=== PATIENT | male | born 1955 | race Caucasian/White ===

== ENCOUNTER → 2018-05-27 08:13 | Outpatient (CLI) | payer OTHER, SELFPAY ==
--- NOTE | 2018-05-27 08:16 | US_ITS ---
STUDY: THYROID ULTRASOUND REASON FOR EXAM: Male, 63 years old. History of thyroid nodule. TECHNIQUE: Ultrasound evaluation of the thyroid was performed with real-time and static abrams-scale imaging. COMPARISON: None. FINDINGS: RIGHT LOBE: The right lobe of the thyroid gland measures 4.0 cm x 1.5 cm x 1.4 cm. There is a homogeneous echotexture. There are no demonstrated solid, cystic or complex lesions. LEFT LOBE: The left lobe of the thyroid gland measures 3.9 cm x 1.3 cm x 1.4 cm. There is a homogeneous echotexture. There are no demonstrated solid, cystic or complex lesions. ISTHMUS: The isthmus measures 4.0 mm. The regional lymph nodes are normal. US/Thyroid IMPRESSION: Normal ultrasound examination of the thyroid. Electronically Signed: Rah Ludwig MD at 10:54 EDT Tel [phone], Service support ,
== END ==
PROVIDERS: Family Provider Family Medicine; PCP Family Medicine; Visit Provider Family Medicine
DX: E04.1 Nontoxic single thyroid nodule (principal)
CPT/HCPCS: 76536

== ENCOUNTER → 2018-06-14 15:15 | Outpatient (CLI) | payer OTHER, SELFPAY ==
[2018-06-14 15:19] LABS: Bacteria 0 SEEN /hpf (None Seen); Mucous, Urine 0 SEEN /hpf (<or=2+); Squamous Epithelial Cells - UA 0 SEEN /hpf (0-5)
[2018-06-14 17:29] LABS: Absolute Lymphocyte Count 1.49 X10^3/ul (0.83-4.51); Absolute Neutrophil Count 4.6 X10^3/uL (2.0-7.7); Basophil# 0.01 X10^3/uL; Basophil% 0.1 % (0-1); Eosinophil# 0.08 X10^3/uL; Eosinophils% 1.1 % (0-5); Hematocrit 48.4 % (40-54); Hemoglobin 16.7 g/dl (13.0-16.5); Lymphocyte # 1.49 X10^3/ul (4.0); Mean Corp Hgb Conc 34.5 g/gl (32-36); Mean Corpuscular Hgb 31.7 pg (27.0-32.0); Mean Platelet Vol. 10.4 fl (6.2-12.0); Monocyte# 0.96 X10^3/uL; Monocyte% 13.5 % (0-10); Neutrophil # 4.55 X10^3/uL (2.7-7.7); Platelet Count 269 K/mm3 (150-450); RBC Distribution Width CV 12.3 % (11.6-14.6); RBC Distribution Width SD 41.1 fl (35.1-43.9); Red Blood Count 5.26 M/mm3 (4.6-6.2); White Blood Count 7.1 K/mm3 (4.4-11.0)
[2018-06-14 17:32] LABS: POSITIVE COUNT NO; POSITIVE DIFFERENTIAL NO; POSITIVE MORPHOLOGY NO
[2018-06-14 17:36] LABS: Color, Urine Yellow (Yellow); Glucose, Dipstick Normal (Normal); Ketone-Dipstick Negative (Negative); Leukocyte Esterase-Dipstick 25 /ul (Negative); Nitrite-Dipstick Negative (Negative); Occult Blood-Urine 10 /ul (Negative); Protein-Dipstick 30 mg/dl (Negative); Specific Gravity, Urine 1.015 (1.002-1.030); Urine Bilirubin Dipstick Negative (Negative); Urine Clarity Clear (Clear); Urine Urobilinogen 1 mg/dl (Normal); Urine pH 6.5 (5.0 - 8.0)
[2018-06-14 18:11] LABS: ALB/GLOB Ratio 0.9 RATIO (0.9-2.4); AST(SGOT) 19 U/L (15-37); Alanine Aminotransfer ALT/SGPT 31 U/L (16-61); Albumin, Serum 3.5 g/dL (3.2-5.0); Alkaline Phosphatase 187 U/L (45-117); Anion Gap 8 (5-15); BUN 25 mg/dL (7-18); BUN/Creat Ratio 18.5 RATIO (10-20); Calcium,Total 8.8 mg/dL (8.5-10.1); Chloride 102 mmol/L (98-107); Cholesterol 194 mg/dL (200); Creatinine, Serum 1.35 mg/dL (0.70-1.30); EST Glomerular Filtration Rate 57 mL/min (>60); Est Glom Filt Rate - Afr Amer 68 mL/min (>60); Globulin 3.8 g/dL (2.2-4.2); Glucose 153 mg/dL (74-106); High Density Lipoprotein 32 mg/dL; Potassium 3.4 mmol/L (3.5-5.1); Protein, Total 7.3 g/dL (6.4-8.2); Sodium Level 140 mmol/L (136-145); T4 Free Direct 1.14 ng/dL (0.76-1.46); Thyroid Stim Hormone (TSH) 2.35 uIU/mL (0.358-3.74); Triglycerides 272 mg/dL; Very Low Density Lipoprotein 54 mg/dL (5-40)
[2018-06-14 18:15] LABS: Red Blood Cells-Urine 0-5 SEEN /hpf (0-5); White Blood Cells 0-5 SEEN /hpf (0-5)
[2018-06-15 10:01] LABS: Hemoglobin A1c 6.2 % (4.2-6.3)
== END ==
PROVIDERS: Family Provider Family Medicine; PCP Family Medicine; Visit Provider Family Medicine
DX: I10 Essential (primary) hypertension (principal); E04.1 Nontoxic single thyroid nodule
CPT/HCPCS: 36415; 80053; 80061; 81001; 83036; 84439; 84443; 85025

== ENCOUNTER → 2018-09-13 16:42 | Outpatient (CLI) | payer OTHER, SELFPAY ==
[2018-09-13 17:34] LABS: Absolute Neutrophil Count 3.3 X10^3/uL (2.0-7.7); Basophil# 0.03 X10^3/uL; Basophil% 0.5 % (0-1); Eosinophil# 0.14 X10^3/uL; Eosinophils% 2.3 % (0-5); Hematocrit 52.6 % (40-54); Hemoglobin 17.5 g/dl (13.0-16.5); Lymphocyte % 24.4 % (19-41); Mean Corp Hgb Conc 33.3 g/gl (32-36); Mean Corpuscular Hgb 30.5 pg (27.0-32.0); Mean Corpuscular Volume 91.8 fL (80-94); Mean Platelet Vol. 9.5 fl (6.2-12.0); Monocyte# 1.13 X10^3/uL; Monocyte% 18.4 % (0-10); Neutrophil # 3.26 X10^3/uL (2.7-7.7); Neutrophil % 52.9 % (47-70); POSITIVE COUNT NO; POSITIVE DIFFERENTIAL NO; POSITIVE MORPHOLOGY NO; Platelet Count 192 K/mm3 (150-450); RBC Distribution Width CV 14.4 % (11.6-14.6); RBC Distribution Width SD 46.4 fl (35.1-43.9); Red Blood Count 5.73 M/mm3 (4.6-6.2); White Blood Count 6.2 K/mm3 (4.4-11.0)
[2018-09-13 18:09] LABS: ALB/GLOB Ratio 1.1 RATIO (0.9-2.4); AST(SGOT) 26 U/L (15-37); Alanine Aminotransfer ALT/SGPT 27 U/L (16-61); Albumin, Serum 3.7 g/dL (3.2-5.0); Alkaline Phosphatase 166 U/L (45-117); Anion Gap 11 (5-15); BUN 27 mg/dL (7-18); Calcium,Total 8.9 mg/dL (8.5-10.1); Chloride 107 mmol/L (98-107); Creatinine, Serum 1.08 mg/dL (0.70-1.30); EST Glomerular Filtration Rate 73 mL/min (>60); Est Glom Filt Rate - Afr Amer 88 mL/min (>60); Globulin 3.5 g/dL (2.2-4.2); Glucose 115 mg/dL (74-106); Potassium 3.8 mmol/L (3.5-5.1); Protein, Total 7.2 g/dL (6.4-8.2); Sodium Level 147 mmol/L (136-145)
[2018-09-13 18:10] LABS: Hemoglobin A1c 6.4 % (4.2-6.3)
== END ==
PROVIDERS: Family Provider Family Medicine; PCP Family Medicine; Visit Provider Family Medicine
DX: I10 Essential (primary) hypertension (principal); R73.02 Impaired glucose tolerance (oral)
CPT/HCPCS: 36415; 80053; 83036; 85025

== ENCOUNTER → 2018-09-15 10:59 | Outpatient (CLI) | payer OTHER, SELFPAY ==
[2018-09-15 12:55] LABS: Ferritin 235 ng/mL (26-388); Iron 92 ug/dL (65-175); Iron Binding Capacity,Total 284 ug/dL (250-450)
[2018-09-16 12:31] LABS: Transferrin 220 mg/dL (200-370)
== END ==
PROVIDERS: Family Provider Family Medicine; PCP Family Medicine; Visit Provider Family Medicine
DX: D75.1 Secondary polycythemia (principal)
CPT/HCPCS: 36415; 82728; 83540; 83550; 84466

== ENCOUNTER → 2019-01-04 15:37 | Outpatient (CLI) | payer OTHER, SELFPAY ==
[2019-01-04 17:34] LABS: Absolute Lymphocyte Count 1.37 X10^3/ul (0.83-4.51); Absolute Neutrophil Count 3.4 X10^3/uL (2.0-7.7); Basophil# 0.02 X10^3/uL; Basophil% 0.3 % (0-1); Eosinophil# 0.14 X10^3/uL; Eosinophils% 2.4 % (0-5); Hematocrit 49.6 % (40-54); Hemoglobin 16.8 g/dl (13.0-16.5); Lymphocyte # 1.37 X10^3/ul (4.0); Lymphocyte % 23.9 % (19-41); Mean Corp Hgb Conc 33.9 g/gl (32-36); Mean Corpuscular Hgb 31.9 pg (27.0-32.0); Mean Corpuscular Volume 94.3 fL (80-94); Mean Platelet Vol. 9.9 fl (6.2-12.0); Monocyte# 0.75 X10^3/uL; Monocyte% 13.1 % (0-10); Neutrophil # 3.39 X10^3/uL (2.7-7.7); Neutrophil % 59.1 % (47-70); Platelet Count 210 K/mm3 (150-450); RBC Distribution Width CV 13.9 % (11.6-14.6); RBC Distribution Width SD 46.4 fl (35.1-43.9); Red Blood Count 5.26 M/mm3 (4.6-6.2); White Blood Count 5.7 K/mm3 (4.4-11.0)
[2019-01-04 17:41] LABS: POSITIVE COUNT NO; POSITIVE DIFFERENTIAL NO; POSITIVE MORPHOLOGY NO
[2019-01-04 17:47] LABS: ALB/GLOB Ratio 1.2 RATIO (0.9-2.4); AST(SGOT) 36 U/L (15-37); Alanine Aminotransfer ALT/SGPT 37 U/L (16-61); Albumin, Serum 3.8 g/dL (3.2-5.0); Alkaline Phosphatase 175 U/L (45-117); Anion Gap 6 (5-15); BUN 23 mg/dL (7-18); BUN/Creat Ratio 20.5 RATIO (10-20); Calcium,Total 8.9 mg/dL (8.5-10.1); Chloride 104 mmol/L (98-107); Creatinine, Serum 1.12 mg/dL (0.70-1.30); EST Glomerular Filtration Rate 70 mL/min (>60); Est Glom Filt Rate - Afr Amer 85 mL/min (>60); Globulin 3.1 g/dL (2.2-4.2); Glucose 171 mg/dL (74-106); Potassium 3.7 mmol/L (3.5-5.1); Protein, Total 6.9 g/dL (6.4-8.2); Sodium Level 140 mmol/L (136-145)
[2019-01-04 17:57] LABS: Hemoglobin A1c 6.5 % (4.2-6.3)
== END ==
PROVIDERS: Family Provider Family Medicine; PCP Family Medicine; Referring Provider Family Medicine; Visit Provider Family Medicine
DX: D75.1 Secondary polycythemia (principal); E11.9 Type 2 diabetes mellitus without complications; I10 Essential (primary) hypertension
CPT/HCPCS: 36415; 80053; 83036; 85025

== ENCOUNTER → 2019-01-05 15:13 | Outpatient (CLI) | payer OTHER, SELFPAY ==
[2019-01-05 19:10] LABS: Microalbumin:Creatinine Ratio 105.9 mg/g CRE (<30 mg/g CRE)
== END ==
PROVIDERS: Family Provider Family Medicine; PCP Family Medicine; Referring Provider Family Medicine; Visit Provider Family Medicine
DX: E11.9 Type 2 diabetes mellitus without complications (principal); I10 Essential (primary) hypertension; D75.1 Secondary polycythemia
CPT/HCPCS: 82043; 82570

== ENCOUNTER → 2019-09-21 12:12 | Outpatient (CLI) | payer MEDICARE, OTHER, SELFPAY ==
[2019-09-21 14:02] LABS: Absolute Lymphocyte Count 1.25 X10^3/uL (0.83-4.51); Absolute Neutrophil Count 3.7 X10^3/uL (2.0-7.7); Basophil# 0.04 X10^3/uL; Basophil% 0.7 % (0-1); Eosinophil# 0.11 X10^3/uL; Eosinophils% 1.8 % (0-5); Hematocrit 48.6 % (40-54); Hemoglobin 15.9 g/dL (13.0-16.5); Lymphocyte # 1.25 X10^3/ul (4.0); Mean Corp Hgb Conc 32.7 g/dL (32-36); Mean Corpuscular Hgb 33.1 pg (27.0-32.0); Mean Corpuscular Volume 101.3 fL (80-94); Mean Platelet Vol. 10.4 fl (6.2-12.0); Monocyte# 0.78 X10^3/uL; Monocyte% 13.1 % (0-10); NRBC Flagged by Analyzer 0 % (0-5); Neutrophil # 3.66 X10^3/uL (2.7-7.7); Neutrophil % 61.4 % (47-70); Platelet Count 181 K/mm3 (150-450); RBC Distribution Width CV 13.6 % (11.6-14.6); RBC Distribution Width SD 51.4 fl (35.1-43.9)
[2019-09-21 14:20] LABS: ALB/GLOB Ratio 0.9 RATIO (0.9-2.4); AST(SGOT) 200 U/L (15-37); Alanine Aminotransfer ALT/SGPT 428 U/L (16-61); Albumin, Serum 3.1 g/dL (3.2-5.0); Alkaline Phosphatase 481 U/L (45-117); Anion Gap 8 (5-15); BUN 22 mg/dL (7-18); BUN/Creat Ratio 20.2 RATIO (10-20); Calcium,Total 8.8 mg/dL (8.5-10.1); Chloride 106 mmol/L (98-107); Cholesterol 231 mg/dL (200); Creatinine, Serum 1.09 mg/dL (0.70-1.30); EST Glomerular Filtration Rate 72 mL/min (>60); Est Glom Filt Rate - Afr Amer 87 mL/min (>60); Globulin 3.5 g/dL (2.2-4.2); Glucose 109 mg/dL (74-106); High Density Lipoprotein 31 mg/dL; Potassium 3.7 mmol/L (3.5-5.1); Protein, Total 6.6 g/dL (6.4-8.2); Sodium Level 142 mmol/L (136-145); Triglycerides 418 mg/dL
[2019-09-21 14:29] LABS: Hemoglobin A1c 6.7 % (4.2-6.3); Microalbumin:Creatinine Ratio 95.6 mg/g CRE (<30 mg/g CRE)
== END ==
PROVIDERS: PCP Family Medicine; Referring Provider Family Medicine; Visit Provider Family Medicine
DX: I10 Essential (primary) hypertension (principal); E11.9 Type 2 diabetes mellitus without complications; R80.9 Proteinuria, unspecified
CPT/HCPCS: 36415; 80053; 80061; 82043; 82570; 83036; 85025

== ENCOUNTER → 2019-09-22 09:00 | Outpatient (CLI) | payer MEDICARE, OTHER, SELFPAY ==
[2019-09-22 10:39] LABS: AST(SGOT) 156 U/L (15-37); Alanine Aminotransfer ALT/SGPT 357 U/L (16-61); Albumin, Serum 3.1 g/dL (3.2-5.0); Alkaline Phosphatase 554 U/L (45-117); Bilirubin, Direct 0.27 mg/dL (0.00-0.30); GGTP 1284 U/L (15-85); Globulin 4.1 g/dL (2.2-4.2); Protein, Total 7.2 g/dL (6.4-8.2)
[2019-09-23 06:07] LABS: HEPATITIS B SURFACE AG Negative (Negative); Hepatitis A AB, Total Positive (Negative); Hepatitis A IgM Antibody Negative (Negative); Hepatitis B Core AB IgM Negative (Negative); Hepatitis B Core Ab Total Negative (Negative); Hepatitis C Ab <0.1 s/co ratio (0.0-0.9)
[2019-09-23 15:24] LABS: Hep B Surface Antibodies Non Reactive (.)
== END ==
PROVIDERS: PCP Family Medicine; Referring Provider Family Medicine; Visit Provider Family Medicine
DX: R74.8 Abnormal levels of other serum enzymes (principal); R94.5 Abnormal results of liver function studies; D75.89 Other specified diseases of blood and blood-forming organs
CPT/HCPCS: 36415; 80076; 82977; 86704; 86705; 86706; 86708; 86709; 86803; 87340

== ENCOUNTER → 2019-09-27 07:57 | Outpatient (CLI) | payer MEDICARE, OTHER, SELFPAY ==
--- NOTE | 2019-09-27 07:59 | US_ITS ---
STUDY: ABDOMINAL ULTRASOUND - RIGHT UPPER QUADRANT REASON FOR VISIT: Male, 64 years old ELEVATED LIVER ENZYMES TECHNIQUE: Ultrasound evaluation of the right upper quadrant was performed with real-time and static abrams-scale imaging. TECHNICAL QUALITY: Limited. Examination limited by bowel gas. COMPARISON: None. FINDINGS: Liver: The liver measures 16.7 cm. There is increased echogenicity consistent with fatty infiltration. The bile ducts are within normal limits. There is hepatic color flow. The direction of portal flow is hepatopetal. There is no demonstrated mass lesion. Gallbladder: Normal distended gallbladder. The gallbladder wall measures 2.6 mm. There is a negative sonographic Villanueva''s sign. There is no pericholecystic fluid. There is a solitary echogenic gallstone within the gallbladder. Common Bile Duct (C.B.D.): The common bile duct measures 3.5 mm. Pancreas: There is nonvisualization of the pancreas due to overlying bowel gas. Right Kidney: Normal size of the right kidney. The right kidney measures 10 cm x 5.1 cm x 4.7 cm. Normal renal cortex. The right cortex measures 1.7 cm. There is no demonstrated renal mass or cyst. There is no right hydronephrosis. US/Liver IMPRESSION: Fatty infiltration of the liver. Solitary gallstone. Electronically Signed: Rah Ludwig, at 15:49 EST , Service support ,
== END ==
PROVIDERS: PCP Family Medicine; Referring Provider Family Medicine; Visit Provider Family Medicine
DX: R94.5 Abnormal results of liver function studies (principal)
CPT/HCPCS: 76705

== ENCOUNTER → 2019-09-28 11:18 | Outpatient (CLI) | payer MEDICARE, OTHER, SELFPAY ==
[2019-09-28 13:03] LABS: Vitamin B12 197 pg/mL (211-911)
== END ==
PROVIDERS: PCP Family Medicine; Referring Provider Family Medicine; Visit Provider Family Medicine
DX: D75.89 Other specified diseases of blood and blood-forming organs (principal)
CPT/HCPCS: 36415; 82607; 82746

== ENCOUNTER → 2019-10-12 13:53 | Outpatient (CLI) | payer MEDICARE, OTHER, SELFPAY ==
[2019-09-28 14:16] VITALS: BMI 25.7
== END ==
PROVIDERS: PCP Family Medicine; Referring Provider Surgery; Visit Provider Surgery
DX: R07.9 Chest pain, unspecified (principal)
CPT/HCPCS: 93005

== ENCOUNTER → 2019-10-24 08:52 | Outpatient (CLI) | payer MEDICARE, OTHER, SELFPAY ==
[2019-10-18 12:16] VITALS: BMI 25.9
[2019-10-24 10:27] LABS: AST(SGOT) 26 U/L (15-37); Alanine Aminotransfer ALT/SGPT 31 U/L (16-61); Albumin, Serum 3.4 g/dL (3.2-5.0); Alkaline Phosphatase 156 U/L (45-117); Anion Gap 5 (5-15); BUN 13 mg/dL (7-18); BUN/Creat Ratio 10.2 RATIO (10-20); Bilirubin, Direct 0.18 mg/dL (0.00-0.30); Chloride 107 mmol/L (98-107); Cholesterol 208 mg/dL (200); Creatinine, Serum 1.27 mg/dL (0.70-1.30); EST Glomerular Filtration Rate 60 mL/min (>60); Est Glom Filt Rate - Afr Amer 73 mL/min (>60); Globulin 3.9 g/dL (2.2-4.2); Glucose 97 mg/dL (74-106); High Density Lipoprotein 39 mg/dL; Potassium 3.5 mmol/L (3.5-5.1); Protein, Total 7.3 g/dL (6.4-8.2); Sodium Level 142 mmol/L (136-145); Triglycerides 195 mg/dL; Very Low Density Lipoprotein 39 mg/dL (5-40)
== END ==
PROVIDERS: PCP Family Medicine; Visit Provider Family Medicine
DX: B15.9 Hepatitis A without hepatic coma (principal); E78.1 Pure hyperglyceridemia
CPT/HCPCS: 36415; 80048; 80061; 80076

== ENCOUNTER → 2019-11-13 06:22 | Outpatient (CLI) | payer MEDICARE, OTHER, SELFPAY ==
[2019-10-18 12:16] VITALS: BMI 25.9
--- NOTE | 2019-11-13 06:27 | ECHOCS_ITS ---
Reason For Study: HTN Procedure This was a 2D Doppler, Color Flow transthoracic echocardiogram. Contrast injection was performed. Exam performed in department. Left Ventricle Normal LV size. Left ventricular systolic function is normal. The estimated ejection fraction is 60 %. Mild segmental systolic dysfunction (see wall motion). Stage 1 diastolic dysfunction. [place] : Akinetic. Septal [place] : Akinetic. Mid-anteroseptal : Hypokinetic. The rest of the wall segments are normal. Tricuspid Valve Normal tricuspid valve. Mild (1+) tricuspid valve insufficiency. Pulmonary artery systolic pressure is 36 mmHg. Pulmonic Valve Normal pulmonic valve. Great Vessels Normal aortic root. The pulmonary artery is normal size. Normal inferior vena cava. Pericardium/Pleural No pericardial effusion. Medication Diluted definity 3ml given slow IV push to enhance endocardial definition. MMode/2D Measurements & Calculations LVIDd: 4.8 cm IVSd: 1.1 cm Ao root diam: 3.6 cm LVIDs: 3.1 cm LVPWd: 1.1 cm RVDd: 2.4 cm FS: 34.5 % LAV(MOD-bp): 36.8 ml SV(MOD-sp4): 53.1 ml LVAd ap4: 30.2 cm2 LAV(MOD-bp) Indexed: 19.3 ml/m2 EDV(MOD-sp4): 90.9 ml LAV(MOD-sp2): 35.8 ml EDV(sp4-el): 92.7 ml LAV(MOD-sp4): 35.6 ml LVAs ap4: 17.6 cm2 ESV(MOD-sp4): 37.8 ml ESV(sp4-el): 38.0 ml EF(MOD-sp4): 58.4 % EF(sp4-el): 59.0 % SV(sp4-el): 54.7 ml LA dimension(2D): 4.0 cm LA A4 area: 15.0 cm2 RA A4 area: 7.4 cm2 Doppler Measurements & Calculations MV E max mack: 51.0 cm/sec Lat Peak E' Mack: 6.7 cm/sec Med Peak E' Mack: 4.6 cm/sec MV A max mack: 115.8 cm/sec E/E' lat: 7.6 E/E' med: 11.1 MV E/A: 0.44 Ao V2 max: 128.1 cm/sec LV V1 max: 115.8 cm/sec PA V2 max: 77.0 cm/sec Ao max P.6 mmHg LV V1 max P.4 mmHg Ao V2 mean: 92.1 cm/sec Ao mean P.7 mmHg Ao V2 VTI: 23.0 cm TR max mack: 289.5 cm/sec TR max P.5 mmHg Interpretation Summary Normal LV size. Left ventricular systolic function is normal. The estimated ejection fraction is 60 %. Mild segmental systolic dysfunction (see wall motion). Stage 1 diastolic dysfunction. Contrast injection was performed. Ordering Physician: Neo Tian Referring Physician: Iván Case Performed By: Laila Sexton, ZAID, RVT
--- NOTE | 2019-11-13 13:46 | STRESSREP_ITS ---
Stress Test Report Exercise myocardial perfusion stress test. 64-year-old man with a history of hypertension. Stress protocol: Resting EKG demonstrates sinus bradycardia with a rate of 56 bpm normal intervals are noted resting blood pressures 174/98 mmHg. Nonspecific changes are noted in leads II, III and aVF. The patient exercised according to the [facility] Lloyd protocol for a total duration of 5 minutes and 16 seconds. The maximum heart rate attained was 146 bpm which was 94% of maximum predicted heart rate the maximum workload was 7 metabolic equivalents. The patient maintained sinus rhythm throughout the recording the test was terminated due to dyspnea, chest discomfort, and the target heart rate being achieved. There was further downsloping ST depression noted in leads II, III and aVF of approximately 1 mm suggestive of ischemia. The resting blood pressure was 174/98 with a peak blood pressure of 220/102. Myocardial perfusion protocol. 11.6 mCi of technetium 99m sestamibi was injected at rest. The patient exercised according to regular Lloyd protocol for 5 minutes and 16 seconds at peak exercise 33.9 mCi of technetium 99m sestamibi was injected stress images were obtained stress and rest images were reconstructed and compared in the short axis vertical long horizontal long axis. Gated images were also obtained Perfusion SPECT analysis: Review of the stress images demonstrate a moderate size defect noted in the anterior septal and apical sanchez on the resting images. The lateral wall inferior wall appear to be well perfused. The resting images demonstrate near complete reversibility of the above suggestive of anteroseptal and apical ischemia. Gated SPECT analysis: The gated ejection fraction is noted to be 48%. Conclusion: Abnormal exercise myocardial perfusion stress test at a moderate workload with evidence of anteroseptal and apical ischemia. Hypertensive response to exercise. Angina noted. Low normal ejection fraction.
== END ==
PROVIDERS: PCP Family Medicine; Referring Provider Internal Medicine Cardiovascular Disease; Visit Provider Internal Medicine Cardiovascular Disease
DX: R07.9 Chest pain, unspecified (principal); I10 Essential (primary) hypertension
CPT/HCPCS: 78452; 93017; 93306; A9500; Q9957; A4216; C8929

== ENCOUNTER 2019-11-20 08:59 | Day surgery (SDC) | payer MEDICARE, OTHER, SELFPAY ==
[2019-10-18 12:16] VITALS: BMI 25.9
--- NOTE | 2019-11-16 17:12 | RAD_ITS ---
STUDY: X-RAY CHEST REASON FOR EXAM: Male, 64 years old. Heart catheter wednesday. no chest complaints TECHNIQUE: Frontal and lateral views of the chest. COMPARISON: None. FINDINGS: Mild scarring in both lung bases. No infiltrates. Nodular density projecting in the left lung base appears to be related to the left sixth rib, but recommend confirmation with oblique views or CT scan. Normal size heart. Normal mediastinum and gen. Normal visualized pulmonary arteries. Normal visualized aortic arch and descending thoracic aorta. Normal visualized thoracic spine. Normal visualized ribs, clavicles, and shoulders. There is no demonstrated abnormality of the visualized soft tissue structures of the upper abdomen. RAD/Chest PA and Lateral IMPRESSION: Mild scarring in the lung bases. Cannot entirely exclude nodule in the left lung base. See comments above. Electronically Signed: Abdon Glasgow MD at 0:00 EDT , Service support ,
[2019-11-16 17:29] LABS: Absolute Lymphocyte Count 1.91 X10^3/uL (0.83-4.51); Absolute Neutrophil Count 6.4 X10^3/uL (2.0-7.7); Basophil# 0.03 X10^3/uL; Basophil% 0.3 % (0-1); Eosinophil# 0.16 X10^3/uL; Eosinophils% 1.6 % (0-5); Hematocrit 46.6 % (40-54); Hemoglobin 14.9 g/dL (13.0-16.5); Lymphocyte # 1.91 X10^3/ul (4.0); Lymphocyte % 19.2 % (19-41); Mean Corpuscular Hgb 30.8 pg (27.0-32.0); Mean Corpuscular Volume 96.5 fL (80-94); Mean Platelet Vol. 9.4 fl (6.2-12.0); Monocyte# 1.35 X10^3/uL; Monocyte% 13.5 % (0-10); NRBC Flagged by Analyzer 0 % (0-5); Neutrophil % 64.2 % (47-70); Platelet Count 257 K/mm3 (150-450); RBC Distribution Width CV 12.8 % (11.6-14.6); RBC Distribution Width SD 44.7 fl (35.1-43.9); Red Blood Count 4.83 M/mm3 (4.6-6.2)
[2019-11-16 18:07] LABS: Partial Thromboplast Time 27.3 Seconds (24.1-36.2); Prothrombin Time (Protime)PT. 12.5 SECONDS (11.7-14.9)
[2019-11-16 18:32] LABS: Anion Gap 6 (5-15); BUN 18 mg/dL (7-18); BUN/Creat Ratio 16.2 RATIO (10-20); Calcium,Total 8.8 mg/dL (8.5-10.1); Chloride 105 mmol/L (98-107); Creatinine, Serum 1.11 mg/dL (0.70-1.30); EST Glomerular Filtration Rate 71 mL/min (>60); Est Glom Filt Rate - Afr Amer 85 mL/min (>60); Glucose 137 mg/dL (74-106); Potassium 3.5 mmol/L (3.5-5.1); Sodium Level 140 mmol/L (136-145)
[2019-11-17 08:11] VITALS: BMI 25.9
--- NOTE | 2019-11-20 08:00 | HP_ITS ---
[facility] HPI History of Present Illness Details: 64-year-old man with a history of hypertension which was diagnosed in the previously on hydrochlorothiazide, lisinopril, metoprolol. He had been doing well until recently when he was scheduled to have his routine EGD. He had had symptoms of GERD diagnosed via EGD in September 2017. More recently he has complained of his continued heartburn and also has some substernal discomfort. He says that the symptoms appear to be worse at night he has not had any exertional component. He however has had some discomfort going to his left arm. This did raise concerns with his primary physician as well as the surgeon and it was decided to have him evaluated further. He tells me that he was recently diagnosed with hepatitis a. He underwent a stress test which demonstrated Abnormal exercise myocardial perfusion stress test at a moderate workload with evidence of anteroseptal and apical ischemia. Hypertensive response to exercise. Angina noted. Low normal ejection fraction. Echocardiogram demonstrated Normal LV size. Left ventricular systolic function is normal. The estimated ejection fraction is 60 %. Mild segmental systolic dysfunction (see wall motion). Stage 1 diastolic dysfunction. Contrast injection was performed. Based on this it is recommended he under go a heart cath. Intake Intake Visit Reasons: Amb Documentation Allergies No Known Allergies Allergy (Verified 10/18/19 12:30) [facility] Medical History Atherosclerosis of coronary artery (Chronic) Elevated LFTs (Acute) Essential hypertension (Chronic) Hyperlipidemia (Chronic) TIA (transient ischemic attack) (Chronic) Bipolar II disorder (Chronic) CVA (cerebral vascular accident) (Chronic) Depression (Chronic) GERD (gastroesophageal reflux disease) (Chronic) Hepatitis A (Chronic) Insomnia (Chronic) Sleep apnea (Chronic) Type 2 diabetes mellitus without complication (Chronic) Diarrhea (Resolved) Surgical History History of cataract extraction (Resolved) History of colonoscopy (Resolved ~2017) History of esophagogastroduodenoscopy (EGD) (Resolved) History of tonsillectomy (Resolved) History of wisdom tooth extraction (Resolved) Family History Father Colon cancer CAD (coronary artery disease) Mother Gastric ulcer Pacemaker Pulmonary fibrosis Heart disease Social History Smoking Status: Former smoker ROS Const Const: Negative for fatigue, weakness, headache(s), frequent falls, difficulty sleeping or excessive sweating Eyes Eyes: Negative for loss of peripheral vision, transient loss of vision, blurry vision, double vision or tunnel vision ENT ENT: Negative for headache(s) or balance problems Cardio Chest Pain: Yes Frequency: weekly Onset: with meals, other (cold weather) Location: epigastric, mid sternal Duration: minutes Exacerbation: activity Palpitations: No Edema: None Muscle aches with walking: None Resp Respiratory: Negative for SOB with activity, SOB at rest, SOB orthopnea\SOB lying down, Cough or paroxysmal nocturnal dyspnea GI GI: Negative nausea, vomiting, heartburn or black,tarry stools : Negative for hematuria Musc Musc: Negative for muscle aches/ myalgia, muscle weakness, joint pain or balance problems Skin Skin: Negative non-healing lesions, rash or unusual bruising Neuro Neuro: Negative for frequent falls, headache(s), weakness, blurry vision or double vision Jimy Hematologic/Lymphatic: Negative for easy bleeding or easy bruising Endo Endo: Negative for fatigue or excessive sweating Psych Psych: Negative for anxiety or depression Allergy Allergy/Immunology: Negative for rash Cardiology Exam Const Appearance: cooperative, healthy appearing, no acute distress, well developed and well groomed Nutritional Appearance: average body habitus and well nourished Orientation: alert, awake and oriented x3 Head Head: normal to inspection, normocephalic and atraumatic Ears: hearing grossly normal bilaterally and external ears normal Nose: external nose normal, nares normal, nasal mucous membranes and turbinates normal, septum normal, no nasal discharge Face and Sinus: face symmetric Mouth: oral mucosae normal, tongue normal, oropharynx normal and moist mucous membranes Teeth and gingiva: dentition normal Throat: posterior oropharynx normal, tonsils normal and uvula midline Eyes General: appearance normal, both eyes and all related structures Eyelids: eyelids normal Conjunctivae: conjunctivae normal Pupils: PERRL, normal by confrontation and accommodation normal EOM: EOM intact bilaterally Neck Neck: normal visual inspection, trachea midline and no JVD JVD: +5 Carotids: normal carotid upstroke and bounding pulses Chest Chest inspection: normal inspection of the chest, symmetric chest movement and normal respiratory effort Auscultation: Bilateral: Clear to Auscultation Cardio Palpation: normal PMI Rate: regular rate Rhythm: regular rhythm Heart sounds: S1 normal, S2 normal and normal, physiologic split S2; negative rub, gallop or murmur GI GI: normal to inspection, soft, no hepatosplenomegaly and bowel sounds present Neuro General: alert, awake, oriented x3, gait normal, moves all extremities and no focal sensory deficit Skin Skin: no rashes or lesions noted Extremities Pulses: Normal: Right Femoral Pulse, Left Femoral Pulse, Right Dorsalis Pedis Pulse, Left Dorsalis Pedis Pulse, Right Posterior Tibial Pulse, Left Posterior Tibial Pulse, Right Radial Pulse, Left Radial Pulse Lower Extremity Edema: None: Bilateral Musculoskel Musculoskeletal: No joint tenderness Psych Psychological: normal affect Assessment & Plan Problems 1. Essential hypertension I10 2. Hyperlipidemia E78.5 3. Atherosclerosis of coronary artery I25.10 Severe LAD disease and diagonal disease, RECOMMENDATIONS: Surgery consult for coronary revascularization per [employer] @ [facility] 11/20/2019 4. Abnormal stress test R94.39 Plan Pt will undergo a heart cath today. He is aware of he requires stenting he will need to spend the time. He will follow up with us in the office accordingly. Coding Level of Care Code No Charge Diagnoses Essential hypertension I10 Hyperlipidemia E78.5 Atherosclerosis of coronary artery I25.10 Abnormal stress test R94.39 Coding Level of Care Code No Charge Diagnoses Essential hypertension I10 Hyperlipidemia E78.5 Atherosclerosis of coronary artery I25.10 Abnormal stress test R94.39 Supplemental Info Supplemental Information Labs LDL Cholesterol 130 mg/dL (0-130) 10/24/19 HDL Cholesterol 39 mg/dL (40-) L 10/24/19 Triglycerides 195 mg/dL (-199) 10/24/19 VLDL Cholesterol 39 mg/dL (5-40) 10/24/19 Diagnostics Electrocardiogram 10/12/19 Echocardiogram 11/13/19 Stress Test Nuclear Medicine 11/13/19 Stress Test 11/13/19 Cardiac Catheterization 11/20/19 Chest X-Ray 11/16/19
--- NOTE | 2019-11-20 12:35 | CL.D_ITS ---
Patient Name: TERRI JUNE Study Date: 11/20/2019 Performing: Neo Tian MD Ht: 68.11 inches 173 cm : 1955 Wt: 171.96 lbs 78 kg Age: 64 Gender: male BSA: 1.92 PROCEDURE(S) PERFORMED SD23-GEE/COR/LV CLINICAL PROFILE AND INDICATIONS Indications: Suspected CAD Heart Failure: None Stress/Imaging Date: 11/13/2019Stress Test with SPECT MPI: Positive Intermediate Risk CAD Presentations: Stable angina. CONCLUSIONS Severe LAD disease and diagonal disease RECOMMENDATIONS Surgery consult for coronary revascularization DESCRIPTION OF PROCEDURE The patient arrived to the procedure lab. The risks and benefits of the procedure as well as a full d escription of our services here and current unavailability of surgical backup were fully explained to the patient and/or their significant other prior to the catheterization. The Timeout was completed, verifying the correct patient and procedure. The patient's procedural site was prepped and draped in the usual fashion. Local anesthetic was given subcutaneously to right radial region with Lidocaine 2% . Local anesthetic was given subcutaneously to right groin region with Lidocaine 2%. Using a modified Seldinger technique, arterial access was obtained via the right radial artery, a 6Fr sheath was inse rted., arterial access was obtained via the right femoral artery, a 5Fr sheath was inserted. Right C oronary Artery selective angiography was then performed in multiple views using a 5 Fr. 4.0 [place] cat heter. Left Coronary Artery selective angiography was performed in multiple views using a 5 Fr. JL4 catheter. Left Ventriculography was performed in RIDDLE projection using a [address] Left Coronary Artery selective angiography was performed in multiple views using a 5 Fr. JL 5 ca theter. Left Ventriculography was performed in RIDDLE projection using a 5 Fr. Pigtail catheter. LV to A O pullback pressures were then recorded.Contrast was injected through the sheath and the Right Iliac and Femoral artery were assessed for possible closure device.The arterial sheath was pulled and a Myn x closure device was deployed for hemostasis CORONARY ANGIOGRAPHY DOMINANCE: Left Dominant LEFT HEART ASSESSMENT Left Ventricular Ejection Fraction: by LV Gram 60 % Anterior Hypokinesis - Mild. Apical Hypokinesis - Moderate Normal Left Ventricular systolic function LEFT MAIN: Mild calcification LEFT ANTERIOR DESCENDING ARTERY: MID LAD: is occluded DIAGONAL 1: Proximal - Long diffuse 80% DIAGONAL 2: Proximal - long multiple areas of 75% CIRCUMFLEX ARTERY: Mild luminal irregularities less than 30% RIGHT CORONARY ARTERY: Mild luminal irregularities less than 30% COMPLICATIONS No Complications PROCEDURE MEDICATIONS Versed 1 mg IV Fentanyl 50 mcg IV Versed 1 mg IV Oxygen: 2 L/min via nasal cannula Heparin diluted in 23cc Heparinized saline. Patient given 10cc IA of this solution. 11/20/2019 11:30: 20 Verapamil 2.5mg, Ntg 100mcgs, 2000 units of Heparin diluted in 23cc Heparinized saline. Patient give n 10cc IA of this solution. 11/20/2019 11:30:20 SUMMARY OF HEMODYNAMIC DATA Time AIR REST ECG 09:23:27 AO 183/104 (138) SA 11:34:42 LV 182/7, 18 12:13:54 LV 189/7, 18 12:14:00 LV 168/8, 17 12:14:39 LVp 174/7, 17 12:14:42 AOp 186/95 (135) 12:14:47 Signed By Neo Tian MD On 11/20/2019 12:34:35 PM Neo Tian MD
== END 2019-11-20 15:16 | disposition home or self-care (01) ==
LOC: CLSP 09:00
PROVIDERS: Nurse Practitioner Family; PCP Family Medicine; Referring Provider Internal Medicine Cardiovascular Disease; Visit Provider Internal Medicine Cardiovascular Disease
DX: I25.118 Atherosclerotic heart disease of native coronary artery with other forms of angina pectoris (principal); B15.9 Hepatitis A without hepatic coma; E11.9 Type 2 diabetes mellitus without complications; I10 Essential (primary) hypertension; E78.5 Hyperlipidemia, unspecified; K21.9 Gastro-esophageal reflux disease without esophagitis; F31.81 Bipolar II disorder; G47.30 Sleep apnea, unspecified; R94.39 Abnormal result of other cardiovascular function study; Z86.73 Personal history of transient ischemic attack (TIA), and cerebral infarction without residual deficits; Z87.891 Personal history of nicotine dependence
CPT/HCPCS: 36415; 71046; 80048; 85025; 85610; 85730; 93458; 99152; 99153; C1760; J7040; Q9967; C1769; C1894

== ENCOUNTER → 2019-11-27 12:54 | Outpatient (CLI) | payer MEDICARE, OTHER, SELFPAY ==
[2019-11-17 08:11] VITALS: BMI 25.9
--- NOTE | 2019-11-27 12:56 | CT_ITS ---
STUDY: CT CHEST WITHOUT CONTRAST REASON FOR EXAM: Male, 64 years old. LUNG NODULE SHOWN ON CHEST XRAY, PT HAD HEART CATH WEDNESDAY, WANTING TO DO TRIPLE BYPASS WANTED TO KNOW MORE ABOUT NODULE FIRST. RADIATION DOSAGE (If Supplied By Facility): CTDIvol = ( 12.02 ) mGy, DLP = ( 377.87 ) mGycm TECHNIQUE: Transaxial imaging was performed without the administration of intravenous contrast material. Multiplanar coronal and sagittal images were reformatted. Individualized dose optimization techniques were used for this CT. COMPARISON: None. FINDINGS: There is elevation of the right hemidiaphragm. No pulmonary nodule is seen. Mild increased markings at the lung bases suggestive of scarring. There is no demonstrated pleural abnormality. There are calcifications of the coronary arteries. There are multiple small lymph nodes within the mediastinum, which are normal in size and morphology most compatible with reactive lymph hyperplasia. Normal hilar regions. Normal unenhanced pulmonary arteries. Normal aorta arch and descending thoracic aorta. There are mild degenerative changes of the thoracic spine. Multiple gallstones. CT/Chest without Contrast IMPRESSION: No pulmonary nodule is seen. Gallstones. Electronically Signed: Rah Ludwig, at 13:55 EDT , Service support ,
== END ==
PROVIDERS: PCP Family Medicine; Referring Provider Family Medicine; Visit Provider Family Medicine
DX: R91.1 Solitary pulmonary nodule (principal)
CPT/HCPCS: 71250

== ENCOUNTER → 2020-01-23 10:33 | Outpatient (CLI) | payer MEDICARE, OTHER, SELFPAY ==
[2020-01-19 09:58] VITALS: BMI 25.4
--- NOTE | 2020-01-23 10:42 | CR.ITP_ITS ---
Diagnosis - General Information Admitting Diagnosis: CABG X3 Personal Learning Style:: Audio/Visual, Demonstration, Group, Individual Preference, Written Barriers to Learning: No Barriers Gave educational material for:: Treating Heart Disease, Emotions & Heart Disease, Stress Management & Relaxation, Sleep Disorders & Heart Disease, How The Heart Works - INFORMED OF EDUATION MATERAIL AVAILABLE ON LINE AND HOW TO ACCESS, What it means to have Heart Disease, How Coronary Artery Disease is Diagnosed, Heart Procedures, What Heart Medications Do, Risk Factors & Modifications, Living an Active Life, Nutrition - Education/Goals Individual Counseling: Initial Assessment: Abnormal Cholesterol Levels, High Blood Pressure, Diabetes, Hypertension, Low HDL <40/Males or <50/Females Cardiac Rehabilitation Goals: 1. Maintain the individual as the primary focus of care. 2. To improve the patient's quality of life. 3. Identification of cardiac risk factors and provide cardiac risk factor management. 4. Enhance the psychosocial status of the patient. 5. Reconditioning enough to allow the patient to resume customary activities. 6. Control symptoms of cardiac disease Personal Goals: Initial Assessment: Improve energy level, Get back to work, or to resume activities faster, Improve knowledge of cardiac disease, Improve muscle strength and endurance, Control risk factors (learn risk factor modification) Scale for measuring improvement of personal goals: Enter appropriate number in Comments. 2 = Unchanged. 3 = Slightly Better. 4 = Moderate Improvement. 5 = Met my Goal - Diagnosis & Disease Process Outcomes/Goals: Pt IDs own risk factors & lifestyle modifications by Session 10, Verbalizes symptoms of angina & response by session 3., Pt independently manages - [facility], Other Additional Outcomes/Goals: Plan/Interventions: Assist Pt to ID & engage in lifestyle modification to reduce CVD risk, Instruct on individual risk factors, Review symptoms of angina & emergency actions, Review secondary diagnosis & identify educational needs., Other see comment - Safety Referral to Physical Therapy: No Referral to [facility] Case Management: No Fall Risk Assessed:: No Assistive Devices:: None Exercise - Initial Assessment - Visit Date of Eval: 01/23/20 Mets: Pre-: >5 METS for 30 minutes by discharge - Physician Prescribed Exercise Modalities: Treadmill, Biodyne, Airdyne, NuStep, SciFit Frequency: 3x/week for 12 weeks [36 sessions] Intensity: 60-80% of age predicted maximum heart rate reserve Target Heart Rate:: 100-131 Resting Blood Pressure: 119/82 EKG Type: SINUS RHYTHM - Outcomes & Goals Goals:: Verbalizes understanding of THR, RPE & goal METS by session 6, Documents in home exercise log/reports 30 min aerobic 5 day/wk by DC, Demonstrates accurate pulse taking by DC, Other additional outcome/goals: see below - Intervention & Plan Exercise Program Goals: Instruct on personal THR & RPE, Instruct on MET level & personal MET goal, Show patient to take own pulse /validate performance until accurate, Instruct on home exercise, Other additional plan/int - Physical Activity Home Exercise Physical Activity - Home Exercise: Safe Exercise, Warm-up, Self-monitoring, Cool-Down, Home Exercise > 30 min Daily, Sitting Time <3 hours/daily - Outcomes & Goals Outcomes/Goals: Demonstrates correct Warm-up/exercise Cool-Down (S3) if = 2.5 METs, Verbalizes symptoms of exercise intolerance by Session 3 (S3), Demonstrate safe equipment use (S3) & follows exercise prescrition (6), Other: See below - Intervention & Plan Plan/Intervention: Instruct warm-up & cool-down if exercising at > 2 METs, Instruct on symptoms of exercise intolerance & actions to take - NEW PT CARD[facility]AC REHAB START, Instruct & monitor on saf, Assess intial functional capacity & safety risk, Other See below Nutrition - Initial Assessment - Program Goals Nutrition Program Goals: LDL <100 optimal. 100 - 129 Near optimal. 130 - 159 Borderline High. 160 - 189 High. Total Cholesterol <200 desirable. 200 - 239 Borderline High. >/= 240 High. HDL < 40 Low >/=60 High. Triglycerides <150 desirable. <199 optimal. VlDL 5 - 40. HgbA1C <7%. BMI <25 Patient has diagnosis of Hyperlipidemia (ICD E78)?: Yes - Visit Date of Assessment:: 01/23/20 - Cholesterol/Lipids Triglycerides (mg/dL): 195 Total Cholesterol (mg/dL): 208 LDL Cholesterol (mg/dL): 130 HDL Cholesterol (mg/dL): 39 Lipid Medication: ATORVASTATIN Determine presence & major risk factors that modify LDL goal: Cigarette smoking, Hypertension or hypertensive medication, Low HDL cholesterol <40 mg/dL*, Family history of premature CHD in Male < 55 years: female <65 yearsFa, Age men > 45 years; women >/= 55 years Outcomes/Goals: Pt IDs own risk factors & lifestyle modifications by Session 10, Verbalizes symptoms of angina & response by session 3., Pt independently manages - [facility] PT, Other Additional Outcomes/Goals: Intervention/Plan: Advocate for lipid panel cholesterol medication if applicable, Instruct on personal lipid levels & lipid goals/NCEP guidelines, Instruct on cholesterol, Other additional plan/int Referral to dietitian:: No - PT DECLINED REFERRAL - Diabetes (Other Core Measures) Diabetes Type: Diagnosis Type II ICD-10 E11 Do you monitor your blood sugar at home?: Yes - ENCOURAGED TO BRING MONITOR IN TO CR, STATES HE WILL Referral to Diabetic Clinic:: No Outcomes/Goals:: Able to state symptoms of, Able to state, Able to state, Other additional Intervention/Plan:: Instruct on - ENCOURAGED PRE AND POST GLUCOSE MONITORING - Weight Mgt (Other Care) Not Applicable: No Height: 5 ft 8 in Weight:: 167 lb BMI: 25.4 Outcomes/Goals: Pt sets, maintains & shows weight loss goal & trend during rehab, Other additional outcomes/goals Intervention/Plan: Instruct on ideal BMI & set weight loss goal w/patient, Assist pt to ID & incorporate diet changes for weight loss by S9, Refer to Structured Weight Loss program as appropriate - [facility] PT, Encourage goal of using 250-300dcal per session for weight loss, Other additional plan/interven tions - Healthy Eating Habits Will attend diet classes:: Yes Outcomes/Goals:: Consume diet rich in vegs,fruits,whole grain/high fiber,fi sh,lean meat, Limit sat/trans fats,cholesterol & added salts & sugars, Other additional outcome/goals: Intervention/Plan:: Assess current eating habits, Other Additional plan/ interventions Medical - Initial Assessment - Visit Date of Eval: 01/23/20 - Medication Compliance Preventative Medication(s):: Aspirin, Beta bridgett H/O mental health issues: depression, anxiety, or addiction?: Yes Doesn?t believe in the benefits of treatment?: No Believes medications are unnecessary or harmful?: No Outcomes/Goals: Verbalizes medications,desired effect & common side effects @ DC, Pt self-reports following medication regimen, Keeps card in wallet w/medications listed by DC, Other additional outcome/goals: Interventions/plans: Instruct on medication effects & side effects, Review medication list w/patient every two weeks - NEW CR START PT, Instruct importance of taking meds as ordered & assist problem solving, Other additional - Tobacco Use Tobacco Use: Non-smoker How long ago did you quit using tobacco products?: Greater than or equal to 6 months ago Years Smokin Do you use smokeless tobacco?: No Interventions/plan: Instruct on effects of smoking & provide smoking cessation resource, Assist pt to set quit date & provide encouragement, Assist pt to develop strategies to achieve/maintain quit date, Assist pt w/nicotine replacement & medication for cessation success, Other additional plan/interv entions - Hypertension Hypertension Diagnosis:: Hypertension ICD-10 I10 Resting Blood Pressure:: 119/82 [place] [employer] Hypertension Guidelines: [place] [employer] Hypertension Guidelines. Normal BP Less than 120/80. Elevated BP 120/80. Hypertension Stage 1: BP 130-139/80-89. Hypertesnion Stage 2: BP 140 or higher/90 or higher. Hypertension Crisis: BP higher than 180/120 Outcomes/Goals: Able to verbalize/achieve optimal blood pressure <130/80, Incorporates diet changes & exercise for blood pressure control by DC, Other additional outcomes/goals Interventions/plan: Instruct on optimal blood pressure, hypertension & medications, Instruct on effects of sodium, alcohol, stress, exercise &hypertension - NEW PT CR START, Other additional plan/interventions - Tobacco Cessation Referral Smoking Cessation Referral:: No Individual Education/Counseling:: No Education Schedule Given:: Yes - INFORMED OF ON-LINE WELL VIUDEOS DURING EXERCISE Psychosocial - Initial Assess - VIsit Date of Eval: 01/23/20 History of previous Mental disease:: Yes - BIPOLA II DISORDER, DEPRESSION History of Emotional Disorders: Depression Self-reported stressors: Other - Target Goals Target Goals: Assess presence or absence of depression. Using a valid screening tool, maximizes coping skills. Positive support system - Psychosocial Test Tool Used:: PHQ-9 Questionnaire phq-9 Severity: Severity. 1-4 Minimal Depression. 5-9 Mild Depression. 10-14 Moderate Depression. 15-19 Moderately Sever Depression. 20-27 Severe Depression. Rule: See PHQ-9 Score: 10 - . Total Score:: 10 - Referral to Behavioral Health PS - Interventions: Yes Attend Stress Management Classes - CR CLASSES, No Referral to Behavioral Health if PHQ-9 score >9:, No Referral to [facility], No Referral to Physician if PHQ-9 if score is 5-9: - PT REFUSED REFERRAL - Outcomes/Goals: See list Psychosocial Outcomes/Goals:: ID's personal stressors & 2 strategies to manage stress by discharge, Other Additional outcome/goals: - Intervention/Plan: See List Interventions/Plan:: Assess stressors,coping strategies & signs of derpression on admission, Instruct/assist pt to develop coping & personal stress Mgt strategies, Refer to Behavioral Health if appropriate, Refer to Physician if appropriate, Instruct patient to recognize signs & symptoms of depression, I nstruct patient to recog, Other additional plan/intervention Patient Health Questionnaire Initial Assessment 1. Little interest or pleasure in doing things: More than half the days 2. Feeling down, depressed, or hopeless: More than half the days 3. Trouble falling or staying asleep, or sleeping too much: Nearly every day 4. Feeling tired or having little energy: Nearly every day 5. Poor appetite or overeating: Not at all 6. Feeling bad about yourself -- or that you are a failure or have let yourself or your family down: Not at all 7. Trouble concentrating on things, such as reading the newspaper or watching television: Not at all 8. Moving or speaking so slowly that other people could have noticed. Or the opposite - being so fidgety or restless that you have been moving around a lot more than usual: Not at all 9. Thoughts that you would be better off , or of hurting yourself in some way: Not at all How difficult have these problems made it for you to do your work, take care of things at home, or get along with other people?: Somewhat difficult Total Score: 10 MAR-Q SV Test - Statements CAD is a disease of the arteries in the heart: False Examples of risk factors for heart disease: True Angina is chest pain or discomfort: I Don't Know The benefits of resistance training include: True Eating more meat and dairy products: False Anti-platelet medications such as aspirin are important: True The only effective way to manage stress: False An exercise warm-up slowly increases heart rate: I Don't Know Prepared, processed foods usually have high sodium: True Depression is common after a heart attack: True The statin medications lower cholesterol: True To control blood pressure, lower the amount of sodium: True If someone gets chest discomfort during walking: False Transfats are partially hydrogenated vegetable oils: True Sleep apnea that is not treated increases the risk: I Don't Know To control cholesterol, one should become a vegetarian: False Someone knows if he/she is exercising at the right level: I Don't Know Diabetes cannot be prevented with exercise & health eating: False Stress is a large risk for heart attack: I Don't Know A diet that can help lower blood pressure is rich in: True - Total Score Total Correct Responses: 15 Self-Efficacy Initial Assessment We would like to know how confident you are in doing certain activities. Please select your confidence level for:: Select your confidence level for the foll owing using the scale 1-10 where 1 is not at all confident and 10 is totally confident. Your score is the average of all 6 responses. Fatigue: How confident are you that you can keep the fatigue caused by your disease from interfering with the things you want to do? Select Number: 3 Physical Discomfort or Pain: How confident are you that you can keep the physical discomfort or pain of your disease from interfering with the things you want to do? Select Number: 9 Emotional Distress: How confident are you that you can keep the emotional distress caused by your disease from interfering with the things you want to do? Select Number: 9 Other Symptoms or Health Problems: How confident are you that you can keep other symptoms or health problems from interfering with the things you want to do? Select Number: 9 Different Tasks and Activities: How confident are you that you can do the different tasks and activities needed to manage your health condition so as to reduce your need to see a doctor? Select Number: 9 Medication: How confident are you that you can do things other than just taking medication to reduce how much your illness affects your everyday life? Select Number: 9 Total Score:: 8 Nutrition Survey - Nutrition Survey Instructions Scoring Instructions: Scoring is as follows: Yes = 1 points. No = 0 point. Patient score that is >/=12 is considered to be at potential nutritional risk and could benefit from a referral to a registered dietitian. - Nutrition Survey Initial Have you lost >10 lbs over the past 2 months without trying?: No Are you following a special diet at home for diabetes, low fat, or low salt?: Yes Are you interested in meeting with a dietitian for help understanding your diet?: No Do you eat less than 3 meals a day?: No Do you eat fatty meats (chan, sausage, ribs, etc), fried foods, desserts, large amounts of salad dressings, margarine, butter, or cheese most days?: No Do you have food allergies? [Enter types in comment field]: No Do you eat in restaurants more than 3 times a week?: No Do you season food with salt, seasoning salt, or garlic salt?: No Do you used canned, boxed, frozen meals, or soups, seasoning packets?: No Total Score:: 1
--- NOTE | 2020-01-23 10:42 | CR.HP_ITS ---
CR - History & Physical - General Arrival date:: 01/23/20 Arrival time:: 10:30 Date of Referral:: 01/19/20 Date of CR Evaluation:: 01/23/20 Referring Physician: DR CURTIS Primary Diagnosis: CABG X3 - History of Present Cardiac Event Onset Date: Enter Onset Date of cardiac illnesses in Comment field below Current stable Angina Pectoris:: No Acute Myocardial Infarction within 12 months:: No Coronary Artery Bypass Graft:: Yes - X3 Heart valve replacement or repair:: No PTCA or coronary stenting:: No Heart or Heart-Lung Transplant:: No Heart Failure EF <35%:: No - EF 55-59% Type of Symptoms:: CHEST PAIN, IDIGESTION TYPE AND LT ARM PAIN Interventions with present event:: CABG X3 Were there any complications?: NONE - Medications Home Medications: Ambulatory Orders Medication Instructions Recorded aspirin 81 mg tablet,delayed 81 mg PO DAILY 09/28/19 release dorzolamide 22.3 mg-timolol 6.8 1 drp OPHTHALMIC X1 09/28/19 mg/mL eye drops duloxetine 60 mg capsule,delayed 60 mg PO DAILY cap 10/17/19 release metformin 1,000 mg tablet 1,000 mg PO BID tab 10/17/19 amlodipine 10 mg tablet 10 mg PO DAILY #30 tab 11/20/19 atorvastatin 80 mg tablet 80 mg PO QHS 01/19/20 metoprolol tartrate 50 mg tablet 75 mg PO BID tab 01/19/20 pantoprazole 40 mg tablet,delayed 40 mg PO DAILY #30 tab 01/19/20 release - Allergies Allergies/Adverse Reactions: Allergies No Known Allergies Allergy (Verified 01/19/20 09:58) - Sleep Disorder Evaluation Hx of Sleep Apnea: Yes Do you snore loudly (louder than talking or can be heard through closed doors)?: Yes Do you often feel tired/ fatigued/ sleepy during daytime?: Yes Has anyone observed you stop breathing during sleep?: Yes History of Hypertension (for STOP score): Yes - PT HAD CPAP PREVIOUSLY AND LOST WHEN MOVED PT INTERESTED IN RESTARTING STOP Results: Positive Advanced Directives - Advanced Directives Power of Diploma Dental Assistant: No Living Will: No Advance Directives Information Provided: No Advance Directives on File: Yes - AT [facility] DNR Order?:: No Past Medical History - Past Medical Illness Medical History: Past Medical History (Last Reviewed 01/19/20 @ 10:[address] Neo Curtis MD) Atherosclerosis of coronary artery of [place] heart without angina pectoris (Chronic) I25.10 Essential hypertension (Chronic) I10 Hyperlipidemia (Chronic) E78.5 TIA (transient ischemic attack) (Chronic) G45.9 Bipolar II disorder F31.81 CVA (cerebral vascular accident) I63.9 Depression F32.9 GERD (gastroesophageal reflux disease) K21.9 Hepatitis A B15.9 Insomnia G47.00 Sleep apnea G47.30 Type 2 diabetes mellitus without complication E11.9 Diarrhea R19.7 Elevated LFTs R94.5 - Past Surgical History Surgical History: Past Surgical History (Last Reviewed 01/19/20 @ 10:[address] Neo Curtis MD) H/O coronary artery bypass surgery (Resolved) Onset Date: 12/15/19 Z95.1 CABG x 3 ASHLEY-LAD, SVG-D1, SVG-D2 12/15/2019 History of cataract extraction Z98.49 History of colonoscopy Onset Date: 2016 Z98.890 History of esophagogastroduodenoscopy (EGD) Z98.890 History of left heart catheterization Onset Date: 11/20/19 Z98.890 History of tonsillectomy Z90.89 History of wisdom tooth extraction K08.409 - Family History Summary Family History: Family History (Last Reviewed 01/19/20 @ 10:[address] Neo Curtis MD) Father Colon cancer CAD (coronary artery disease) Mother Gastric ulcer Pacemaker Pulmonary fibrosis Heart disease Social History - Smoking History Smoking Status: Former smoker Years Smokin Packs Smoked per Day: 1 - Alcohol Use Alcohol Usage: No - Substance Abuse Hx Substance Use: No - Occupation Occupation (List type of work in comments):: Retired - Hobbies, Recreation, Social Activities Hobbies: Reading, Watch TV, Walking Recreational Activities: I am able to engage in most, but not all activities Social Environment - Status Marital Status: - Current Living Arrangements Living Environment:: Spouse - Children How many children do you have?: 2 Do any of your children live nearby?: No - Safety Do you feel safe in your surroundings?: Yes - Assistance Do you need any assistance at home?: NONE Review of Systems - Review of Systems Hints: Right click = Denies (Slash). Left click = Reports ([place]) Review of Present Symptoms: Reports: Shortness of Breath with Exertion - SOMETIMES, MINIMAL, Wound Healing, Fatigue, Appetite - Normal, Sleep - Normal - FALLING ASLEEP THER HARDEST. Denies: Shortness of Breath at Rest, PVD, Operative Discomfort - EDEGES WELL APPROXIMATED WITHOUT REDNESS OR EDEMA OR DRAINAGE, Angina, Dizziness/Lightheadedness, Heart Arrhythmia/Irregularities Risk Factor Assessment - Chief Complaint Chief Complaint: CURRENT CABG PT WHO PRESENTS TODAY FOR CR EVALUATION - Vital Signs Temperature: 98.6 F Respiratory Rate: 16 Pulse Ox: 95 Blood Pressure: 118/80 Nailbeds:: PINK - Pulse Pulse Rate: 85 Pulse Rhythm: Regular - Hypertension How long have you been treated?: 25-30 YRS On medication(s)?: METOPROLOL,NORVASC Blood Pressure Sitting - Left Arm: 118/80 - Stress Stress: Long-standing - Blood Cholesterol/Lipids Total Cholesterol (mg/dL) Goal = less than 200 mg/dL: 208 HDL Cholesterol (mg/dL) Goal = less than 40 mg/dL: 39 LDL Cholesterol (mg/dL) Goal = less than 70 mg/dL: 130 Triglycerides (mg/dL) Goal = less than 150 mg/dL: 197 - Diabetes Diabetic History: Type II Nutrition Referral for Diabetes: No - Obesity Height: 5 ft 8 in Weight:: 167 lb Weight in Pounds: 167.0 lbs Weight Source: Stated by Patient Body Mass Index (BMI): 25.4 Nutritional Referral for Obesity: No - Physical Inactivity Physical Inactivity: Recreational activity - WALKING SLOWLY AT PRESENT - Risk Stratification Risk Guidelines: Lowest Risk: Risk Factor for Smoking, Risk Factor for Obesity, Moderate Risk: Risk Factor for Dyslipidemia, Risk Factor for Diabetes, Risk Factor for Hypertension, Risk Factor for Sedentary Lifestyle, Risk Factor for Depression - For Smoking Smoking Risk Guidelines: Smoking Low Risk: None or quit greater than 6 months ago. Smoking Moderate Risk: Smoker or quit 6 months or less ago. Smoking High Risk: Smoker - For Dyslipidemia Dyslipidemia Risk Guidelines: Low Risk: Moderate Risk: High Risk: 15-25% fat 25.1-29% fat >/= 30% fat. <7% sat fat 7-9% sat fat >9% sat fat. <150 mg chol 150-299 mg chol >/= 300 mg chol. LDL <100 LDL 100-129 LDL >/= 130. Chol/HDL ratio <5.0 Chol/HDL ratio 5.0-6.0 Chol/HDL ratio >6.0. Triglycerides <100 Triglycerides 100-149 Triglycerides >/= 150 - For Diabetes Mellitus Diabetes Risk Guidelines: Diabetes Low Risk: HgA1c <6.5% and/or FBG <120. Diabetes Moderate Risk: HgA1c 6.6-7.9% and/or FBG 120-180. Diabetes High Risk: HgA1c >/= 8% and/or FBG >180 - For Obesity/Overweight Obesity/Overweight Risk Guidelines: Obesity Low Risk: BMI <25.0. Obesity Moderate Risk: BMI 25-29.9. Obesity High Risk: BMI >/= 30.0 - For Hypertension Hypertension Risk Guidelines: Hypertension Low Risk: Systolic <120 and Diastolic <80. Hypertension Moderate Risk: Systolic 120-139 and Diastolic 80-89. Hypertension High Risk: Systolic >/= 140 and Diastolic >/= 90 - For Sedentary Lifestyle Sedentary Lifestyle Risk Guidelines: Sedentary Lifestyle Low Risk: >/= 1,500 kcal/week. Sedentary Lifestyle Moderate Risk: 700-1,499 kcal/week. Sedentary Lifestyle High Risk: < 700 kcal/week - For Depression Depression Risk Guidelines: Depression Low Risk: Not clinically depressed. Depression Moderate Risk: Mildly depressed. Depression High Risk: Clinically depressed - Family History Family History: Family History (Last Reviewed 01/19/20 @ 10:[address] Neo Curtis MD) Father Colon cancer CAD (coronary artery disease) Mother Gastric ulcer Pacemaker Pulmonary fibrosis Heart disease Motivation - Motivation to Participate On a scale of 1 to 10, how prepared are you to commit to attending program?: 9 What do you see as barriers to successfully being able to complete the program?: NONE What do you see as the benefits of succesfully completing the program? In other words, what do you hope to get out of participating in the program?: GETTING RID OF THE FATIGUE Are there issues you are dealing with that will interfere with completing the program?: NONE Do you have a spouse or signficant other, family or friends who will help support you to complete the program?: SPOUSE
[2020-01-23 11:21] VITALS: BP 118/80; PULSE 85; RESP 16; TEMP 37; O2SAT 95; BMI 25.4
[2020-01-23 11:55] VITALS: BP 119/82; BMI 25.4
== END ==
PROVIDERS: PCP Family Medicine; Referring Provider Internal Medicine Cardiovascular Disease; Visit Provider Internal Medicine Cardiovascular Disease
DX: I25.10 Atherosclerotic heart disease of native coronary artery without angina pectoris (principal); E11.9 Type 2 diabetes mellitus without complications; I10 Essential (primary) hypertension; E78.5 Hyperlipidemia, unspecified; G47.30 Sleep apnea, unspecified; I25.2 Old myocardial infarction

== ENCOUNTER → 2020-01-24 14:31 | Outpatient (CLI) | payer MEDICARE, OTHER, SELFPAY ==
[2020-01-23 11:21] VITALS: BMI 25.4
[2020-01-23 11:55] VITALS: BMI 25.4
[2020-01-24 18:48] LABS: ALB/GLOB Ratio 0.9 RATIO (0.9-2.4); AST(SGOT) 30 U/L (15-37); Alanine Aminotransfer ALT/SGPT 37 U/L (16-61); Albumin, Serum 3.6 g/dL (3.2-5.0); Alkaline Phosphatase 214 U/L (45-117); Anion Gap 8 (5-15); BUN 18 mg/dL (7-18); BUN/Creat Ratio 14.9 RATIO (10-20); CPK Total, Creatine Kinase 43 U/L (39-308); Calcium,Total 9.4 mg/dL (8.5-10.1); Chloride 105 mmol/L (98-107); Creatinine, Serum 1.21 mg/dL (0.70-1.30); EST Glomerular Filtration Rate 64 mL/min (>60); Est Glom Filt Rate - Afr Amer 77 mL/min (>60); Ferritin 48 ng/mL (26-388); Glucose 180 mg/dL (74-106); Magnesium 1.7 mg/dL (1.6-2.6); Potassium 3.9 mmol/L (3.5-5.1); Protein, Total 7.6 g/dL (6.4-8.2); Sodium Level 140 mmol/L (136-145)
== END ==
PROVIDERS: PCP Family Medicine; Referring Provider Family Medicine; Visit Provider Family Medicine
DX: R25.2 Cramp and spasm (principal)
CPT/HCPCS: 36415; 80053; 82550; 82728; 83735

== ENCOUNTER 2020-02-02 10:15 | Outpatient (RCR) | payer MEDICARE, OTHER, SELFPAY ==
[2020-01-23 11:02] VITALS: BMI 25.4
== END 2020-02-04 23:59 ==
LOC: CR 10:15
PROVIDERS: PCP Family Medicine; Referring Provider Internal Medicine Cardiovascular Disease; Visit Provider Internal Medicine Cardiovascular Disease
DX: I25.10 Atherosclerotic heart disease of native coronary artery without angina pectoris (principal); Z95.1 Presence of aortocoronary bypass graft; I10 Essential (primary) hypertension; E78.5 Hyperlipidemia, unspecified; Z86.73 Personal history of transient ischemic attack (TIA), and cerebral infarction without residual deficits
CPT/HCPCS: 93798

== ENCOUNTER 2020-03-04 10:15 | Outpatient (RCR) | payer MEDICARE, OTHER, SELFPAY ==
[2020-01-23 11:21] VITALS: BMI 25.4
[2020-01-23 11:55] VITALS: BMI 25.4
--- NOTE | 2020-02-22 09:07 | PCM.CR.ITP ---
Exercise - 30-day Assessment - Visit Date of Eval: 02/22/20 Session #:: 9 - Physician Prescribed Exercise Modalities: Treadmill, Airdyne, NuStep Frequency: 3x/week for 12 weeks [36 sessions] Intensity: 60-80% of age predicted maximum heart rate reserve Current METSs:: 4.0 Target Heart Rate:: 100-131 Current RPE:: 11-13 Maximum Excercise HR:: 117 Resting Blood Pressure: 118/60 Maximum Exercise Blood Pressure: 140/80 EKG Type: NSR w/ T wave inversion, sinus tachycardia without ectopy. - Outcomes & Goals Goals:: Verbalizes understanding of THR, RPE & goal METS by session 6, Documents in home exercise log/reports 30 min aerobic 5 day/wk by DC, Demonstrates accurate pulse taking by DC - Intervention & Plan Exercise Program Goals: Instruct on personal THR & RPE, Instruct on MET level & personal MET goal, Show patient to take own pulse /validate performance until accurate, Instruct on home exercise - Physical Activity Home Exercise Physical Activity - Home Exercise: Safe Exercise, Warm-up, Self-monitoring, Cool-Down, Home Exercise > 30 min Daily, Sitting Time <3 hours/daily - Outcomes & Goals Outcomes/Goals: Demonstrates correct Warm-up/exercise Cool-Down (S3) if = 2.5 METs, Verbalizes symptoms of exercise intolerance by Session 3 (S3), Demonstrate safe equipment use (S3) & follows exercise prescrition (6) - Intervention & Plan Plan/Intervention: Instruct warm-up & cool-down if exercising at > 2 METs, Instruct on symptoms of exercise intolerance & actions to take, Instruct & monitor on saf, Assess intial functional capacity & safety risk Nutrition - 30-Day Assessment - Program Goals Nutrition Program Goals: LDL <100 optimal. 100 - 129 Near optimal. 130 - 159 Borderline High. 160 - 189 High. Total Cholesterol <200 desirable. 200 - 239 Borderline High. >/= 240 High. HDL < 40 Low >/=60 High. Triglycerides <150 desirable. <199 optimal. VlDL 5 - 40. HgbA1C <7%. BMI <25 Patient has diagnosis of Hyperlipidemia (ICD E78)?: Yes - Visit Date of Assessment:: 02/22/20 Session #:: 9 - Cholesterol/Lipids Triglycerides (mg/dL): 195 Total Cholesterol (mg/dL): 208 LDL Cholesterol (mg/dL): 130 HDL Cholesterol (mg/dL): 39 Determine presence & major risk factors that modify LDL goal: Hypertension or hypertensive medication, Low HDL cholesterol <40 mg/dL*, Age men > 45 years; women >/= 55 years Outcomes/Goals: Pt IDs own risk factors & lifestyle modifications by Session 10, Verbalizes symptoms of angina & response by session 3., Pt independently manages Intervention/Plan: Instruct on personal lipid levels & lipid goals/NCEP guidelines, Instruct on cholesterol Referral to dietitian:: Yes - Diabetes (Other Core Measures) Diabetes Type: Not Applicable - Weight Mgt (Other Care) Not Applicable: Yes Height: 5 ft 8 in Weight:: 173 lb BMI: 26.3 Diagnosis Overweight/Obesity BMI> 30% ICD-10 E66: No Diagnosis High BMI/Morbid Obesity BMI> 35% ICD-10 Z68: No Outcomes/Goals: Pt sets, maintains & shows weight loss goal & trend during rehab 30 day Reassessments:: Met - Healthy Eating Habits Will attend diet classes:: Yes Outcomes/Goals:: Consume diet rich in vegs,fruits,whole grain/high fiber,fish,lean meat, Limit sat/trans fats,cholesterol & added salts & sugars Intervention/Plan:: Assess current eating habits 30-day Reassessments:: Progressing - Education Gave educational materials for:: Healthy eating Medical- 30-Day Assessment - Visit Date of Eval: 02/22/20 Session #:: 9 - Medication Compliance Preventative Medication(s):: Aspirin, Statin/lipid, Beta bridgett H/O mental health issues: depression, anxiety, or addiction?: No Doesn?t believe in the benefits of treatment?: No Believes medications are unnecessary or harmful?: No Has a concern about medication side effects?: No Expresses concern over the cost of medications?: No Outcomes/Goals: Verbalizes medications,desired effect & common side effects @ DC, Pt self-reports following medication regimen, Keeps card in wallet w/medications listed by DC Interventions/plans: Instruct on medication effects & side effects, Review medication list w/patient every two weeks, Instruct importance of taking meds as ordered & assist problem solving 30-day Reassessments:: Progressing - Tobacco Use Tobacco Use: Non-smoker - Hypertension Hypertension Diagnosis:: Hypertension ICD-10 I10 Resting Blood Pressure:: 118/60 - controlled [place] [employer] Hypertension Guidelines: [place] [employer] Hypertension Guidelines. Normal BP Less than 120/80. Elevated BP 120/80. Hypertension Stage 1: BP 130-139/80-89. Hypertesnion Stage 2: BP 140 or higher/90 or higher. Hypertension Crisis: BP higher than 180/120 Peak Exercise Blood Pressure:: 140/80 Outcomes/Goals: Able to verbalize/achieve optimal blood pressure <130/80, Incorporates diet changes & exercise for blood pressure control by DC Interventions/plan: Instruct on optimal blood pressure, hypertension & medications, Instruct on effects of sodium, alcohol, stress, exercise &hypertension 30 day Reassessments:: Progressing - Tobacco Cessation Referral Smoking Cessation Referral:: No Individual Education/Counseling:: No Education Schedule Given:: Yes Psychosocial - 30-Day Assess - VIsit Date of Eval: 02/22/20 Session #:: 9 Not Applicable: Yes History of previous Mental disease:: No - Target Goals Target Goals: Assess presence or absence of depression. Using a valid screening tool, maximizes coping skills. Positive support system - Psychosocial Test Tool Used:: [employer] Karlos QOL Cardiac, PHQ-9 Questionnaire phq-9 Severity: Severity. 1-4 Minimal Depression. 5-9 Mild Depression. 10-14 Moderate Depression. 15-19 Moderately Sever Depression. 20-27 Severe Depression. Rule: - Referral to Behavioral Health PS - Interventions: Yes Attend Stress Management Classes, No Referral to Behavioral Health if PHQ-9 score >9:, No Referral to [facility], No Referral to Physician if PHQ-9 if score is 5-9: - Outcomes/Goals: See list Psychosocial Outcomes/Goals:: ID's personal stressors & 2 strategies to manage stress by discharge - Intervention/Plan: See List Interventions/Plan:: Assess stressors,coping strategies & signs of derpression on admission, Instruct/assist pt to develop coping & personal stress Mgt strategies, Instruct patient to recognize signs & symptoms of depression, Instruct patient to recog - 30-day Reassessments: 30 day Reassessments:: Progressing Patient Health Questionnaire 30-Day Re-eval Assessment 1. Little interest or pleasure in doing things: Several days 2. Feeling down, depressed, or hopeless: Several days 3. Trouble falling or staying asleep, or sleeping too much: Several days 4. Feeling tired or having little energy: Not at all 5. Poor appetite or overeating: Not at all 6. Feeling bad about yourself -- or that you are a failure or have let yourself or your family down: Not at all 7. Trouble concentrating on things, such as reading the newspaper or watching television: Not at all 8. Moving or speaking so slowly that other people could have noticed. Or the opposite - being so fidgety or restless that you have been moving around a lot more than usual: Not at all 9. Thoughts that you would be better off , or of hurting yourself in some way: Not at all Total Score: 3 Self-Efficacy 30-Day Re-eval Assessment We would like to know how confident you are in doing certain activities. Please select your confidence level for:: Select your confidence level for the following using the scale 1-10 where 1 is not at all confident and 10 is totally confident. Your score is the average of all 6 responses. Fatigue: How confident are you that you can keep the fatigue caused by your disease from interfering with the things you want to do? Select Number: 7 Physical Discomfort or Pain: How confident are you that you can keep the physical discomfort or pain of your disease from interfering with the things you want to do? Select Number: 6 Emotional Distress: How confident are you that you can keep the emotional distress caused by your disease from interfering with the things you want to do? Select Number: 7 Other Symptoms or Health Problems: How confident are you that you can keep other symptoms or health problems from interfering with the things you want to do? Select Number: 8 Different Tasks and Activities: How confident are you that you can do the different tasks and activities needed to manage your health condition so as to reduce your need to see a doctor? Select Number: 6 Medication: How confident are you that you can do things other than just taking medication to reduce how much your illness affects your everyday life? Select Number: 8 Total Score:: 7
[2020-02-22 09:16] VITALS: BP 118/60; BP 140/80; BMI 26.3
== END 2020-03-05 23:59 ==
LOC: CR 10:15
PROVIDERS: PCP Family Medicine; Referring Provider Internal Medicine Cardiovascular Disease; Visit Provider Internal Medicine Cardiovascular Disease
DX: I25.10 Atherosclerotic heart disease of native coronary artery without angina pectoris (principal); Z95.1 Presence of aortocoronary bypass graft; I10 Essential (primary) hypertension; E78.5 Hyperlipidemia, unspecified; Z86.73 Personal history of transient ischemic attack (TIA), and cerebral infarction without residual deficits
CPT/HCPCS: 93798

== ENCOUNTER 2020-04-03 10:15 | Outpatient (RCR) | payer MEDICARE, OTHER, SELFPAY ==
[2020-01-23 11:21] VITALS: BMI 25.4
[2020-02-22 09:16] VITALS: BMI 26.3
[2020-03-06 00:31] VITALS: BP 118/60; BP 140/80
--- NOTE | 2020-04-01 08:34 | PCM.CR.ITP ---
Diagnosis - General Information Stage of change r/t lifestyle modifications:: Action Gave educational material for:: Treating Heart Disease, Emotions & Heart Disease, Stress Management & Relaxation, Sleep Disorders & Heart Disease, How The Heart Works, What it means to have Heart Disease, How Coronary Artery Disease is Diagnosed, Heart Procedures, What Heart Medications Do, Risk Factors & Modifications, Living an Active Life, Nutrition - Education/Goals Cardiac Rehabilitation Goals: 1. Maintain the individual as the primary focus of care. 2. To improve the patient's quality of life. 3. Identification of cardiac risk factors and provide cardiac risk factor management. 4. Enhance the psychosocial status of the patient. 5. Reconditioning enough to allow the patient to resume customary activities. 6. Control symptoms of cardiac disease Scale for measuring improvement of personal goals: Enter appropriate number in Comments. 2 = Unchanged. 3 = Slightly Better. 4 = Moderate Improvement. 5 = Met my Goal - Diagnosis & Disease Process Outcomes/Goals: Pt IDs own risk factors & lifestyle modifications by Session 10, Verbalizes symptoms of angina & response by session 3., Pt independently manages Plan/Interventions: Assist Pt to ID & engage in lifestyle modification to reduce CVD risk, Instruct on individual risk factors, Review symptoms of angina & emergency actions, Review secondary diagnosis & identify educational needs. 30 day Reassessments:: Progressing - Safety Referral to Physical Therapy: No Referral to [facility] Case Management: No Fall Risk Assessed:: Yes Assistive Devices:: None Exercise - 60-day Assessment - Visit Date of Eval: 04/01/20 Session #:: 22 - Physician Prescribed Exercise Modalities: Treadmill, Airdyne, NuStep Frequency: 3x/week for 12 weeks [36 sessions] Intensity: 60-80% of age predicted maximum heart rate reserve Current METSs:: 5.0 Target Heart Rate:: 100-131 Current RPE:: 13-14 Maximum Excercise HR:: 116 Resting Blood Pressure: 120/70 Maximum Exercise Blood Pressure: 148/86 EKG Type: NSR TO SINUS TACHYCARDIA WITHOUT ECTOPY. - Outcomes & Goals Goals:: Verbalizes understanding of THR, RPE & goal METS by session 6, Documents in home exercise log/reports 30 min aerobic 5 day/wk by DC, Demonstrates accurate pulse taking by DC - Intervention & Plan Exercise Program Goals: Instruct on personal THR & RPE, Instruct on MET level & personal MET goal, Show patient to take own pulse /validate performance until accurate, Instruct on home exercise - 30-day Reassessments 30 day Reassessments:: Progressing - Physical Activity Home Exercise Physical Activity - Home Exercise: Safe Exercise, Warm-up, Self-monitoring, Cool-Down, Home Exercise > 30 min Daily, Sitting Time <3 hours/daily - Outcomes & Goals Outcomes/Goals: Demonstrates correct Warm-up/exercise Cool-Down (S3) if = 2.5 METs, Verbalizes symptoms of exercise intolerance by Session 3 (S3), Demonstrate safe equipment use (S3) & follows exercise prescrition (6) - Intervention & Plan Plan/Intervention: Instruct warm-up & cool-down if exercising at > 2 METs, Instruct on symptoms of exercise intolerance & actions to take, Instruct & monitor on saf, Assess intial functional capacity & safety risk - 30-day Reassessments 30 day Reassessments:: Progressing Nutrition - 60-Day Assessment - Program Goals Nutrition Program Goals: LDL <100 optimal. 100 - 129 Near optimal. 130 - 159 Borderline High. 160 - 189 High. Total Cholesterol <200 desirable. 200 - 239 Borderline High. >/= 240 High. HDL < 40 Low >/=60 High. Triglycerides <150 desirable. <199 optimal. VlDL 5 - 40. HgbA1C <7%. BMI <25 Patient has diagnosis of Hyperlipidemia (ICD E78)?: Yes - Visit Date of Assessment:: 04/01/20 Session #:: 22 - Cholesterol/Lipids Determine presence & major risk factors that modify LDL goal: Hypertension or hypertensive medication, Family history of premature CHD in Male < 55 years: female <65 yearsFa, Age men > 45 years; women >/= 55 years Outcomes/Goals: Pt IDs own risk factors & lifestyle modifications by Session 10, Verbalizes symptoms of angina & response by session 3., Pt independently manages Intervention/Plan: Instruct on personal lipid levels & lipid goals/NCEP guidelines, Instruct on cholesterol 30-day Reassessments:: Progressing - Diabetes (Other Core Measures) Diabetes Type: Diagnosis Type II ICD-10 E11 Fasting blood glucose:: 98 Insulin dependent injection/pump?: Yes Non-Insulin Dependent?: Yes Do you monitor your blood sugar at home?: Yes Referral to Diabetic Clinic:: No - SEEN NUTRITION SERVICES ON 03/06/20 @ 8:30 Outcomes/Goals:: Able to state symptoms of, Able to state, Able to state Intervention/Plan:: Instruct on, Instruct on 30-day Reassessments:: Progressing - Weight Mgt (Other Care) Not Applicable: Yes Height: 5 ft 8 in Weight:: 175 lb BMI: 26.6 Diagnosis Overweight/Obesity BMI> 30% ICD-10 E66: No Diagnosis High BMI/Morbid Obesity BMI> 35% ICD-10 Z68: No Outcomes/Goals: Pt sets, maintains & shows weight loss goal & trend during rehab Intervention/Plan: Instruct on ideal BMI & set weight loss goal w/patient, Assist pt to ID & incorporate diet changes for weight loss by S9, Encourage goal of using 250-300dcal per session for weight loss 30 day Reassessments:: Progressing - Healthy Eating Habits Will attend diet classes:: Yes Outcomes/Goals:: Consume diet rich in vegs,fruits,whole grain/high fiber,fish,lean meat, Limit sat/trans fats,cholesterol & added salts & sugars Intervention/Plan:: Assess current eating habits 30-day Reassessments:: Progressing - Education Gave educational materials for:: Signs & symptoms of hypoglycemia, Signs & symptoms of hyperglycemia, Relate diabetes to coronary artery disease, Healthy eating Medical- 60-Day Assessment - Visit Date of Eval: 04/01/20 Session #:: 22 - Medication Compliance Preventative Medication(s):: Aspirin, LULY inhibitor, Statin/lipid, Beta bridgett H/O mental health issues: depression, anxiety, or addiction?: No Doesn?t believe in the benefits of treatment?: No Believes medications are unnecessary or harmful?: No Has a concern about medication side effects?: No Expresses concern over the cost of medications?: No Outcomes/Goals: Verbalizes medications,desired effect & common side effects @ DC, Pt self-reports following medication regimen, Keeps card in wallet w/medications listed by DC Interventions/plans: Instruct on medication effects & side effects, Review medication list w/patient every two weeks, Instruct importance of taking meds as ordered & assist problem solving 30-day Reassessments:: Progressing - Tobacco Use Tobacco Use: Non-smoker 30-day Reassessments:: Met - Hypertension Hypertension Diagnosis:: Hypertension ICD-10 I10 Resting Blood Pressure:: 120/70 [place] [employer] Hypertension Guidelines: [place] [employer] Hypertension Guidelines. Normal BP Less than 120/80. Elevated BP 120/80. Hypertension Stage 1: BP 130-139/80-89. Hypertesnion Stage 2: BP 140 or higher/90 or higher. Hypertension Crisis: BP higher than 180/120 Peak Exercise Blood Pressure:: 148/86 Outcomes/Goals: Able to verbalize/achieve optimal blood pressure <130/80, Incorporates diet changes & exercise for blood pressure control by DC Interventions/plan: Instruct on optimal blood pressure, hypertension & medications, Instruct on effects of sodium, alcohol, stress, exercise &hypertension 30 day Reassessments:: Progressing - Tobacco Cessation Referral Smoking Cessation Referral:: No Individual Education/Counseling:: No Education Schedule Given:: Yes Psychosocial - 60-Day Assess - VIsit Date of Eval: 04/01/20 Session #:: 22 Not Applicable: No History of previous Mental disease:: No - Target Goals Target Goals: Assess presence or absence of depression. Using a valid screening tool, maximizes coping skills. Positive support system - Psychosocial Test Tool Used:: [employer] Karlos QOL Cardiac, PHQ-9 Questionnaire phq-9 Severity: Severity. 1-4 Minimal Depression. 5-9 Mild Depression. 10-14 Moderate Depression. 15-19 Moderately Sever Depression. 20-27 Severe Depression. Rule: - Referral to Behavioral Health PS - Interventions: Yes Attend Stress Management Classes, No Referral to Behavioral Health if PHQ-9 score >9:, No Referral to [facility], No Referral to Physician if PHQ-9 if score is 5-9: - Outcomes/Goals: See list Psychosocial Outcomes/Goals:: ID's personal stressors & 2 strategies to manage stress by discharge - Intervention/Plan: See List Interventions/Plan:: Assess stressors,coping strategies & signs of derpression on admission, Instruct/assist pt to develop coping & personal stress Mgt strategies, Instruct patient to recognize signs & symptoms of depression, Instruct patient to recog - 30-day Reassessments: 30 day Reassessments:: Progressing Patient Health Questionnaire 60-Day Re-eval Assessment 1. Little interest or pleasure in doing things: Several days 2. Feeling down, depressed, or hopeless: Several days 3. Trouble falling or staying asleep, or sleeping too much: Several days 4. Feeling tired or having little energy: Not at all 5. Poor appetite or overeating: Not at all 6. Feeling bad about yourself -- or that you are a failure or have let yourself or your family down: Not at all 7. Trouble concentrating on things, such as reading the newspaper or watching television: Not at all 8. Moving or speaking so slowly that other people could have noticed. Or the opposite - being so fidgety or restless that you have been moving around a lot more than usual: Not at all 9. Thoughts that you would be better off , or of hurting yourself in some way: Not at all How difficult have these problems made it for you to do your work, take care of things at home, or get along with other people?: Not difficult at all Total Score: 3 Self-Efficacy 60-Day Re-eval Assessment We would like to know how confident you are in doing certain activities. Please select your confidence level for:: Select your confidence level for the following using the scale 1-10 where 1 is not at all confident and 10 is totally confident. Your score is the average of all 6 responses. Fatigue: How confident are you that you can keep the fatigue caused by your disease from interfering with the things you want to do? Select Number: 8 Physical Discomfort or Pain: How confident are you that you can keep the physical discomfort or pain of your disease from interfering with the things you want to do? Select Number: 8 Emotional Distress: How confident are you that you can keep the emotional distress caused by your disease from interfering with the things you want to do? Select Number: 8 Other Symptoms or Health Problems: How confident are you that you can keep other symptoms or health problems from interfering with the things you want to do? Select Number: 8 Different Tasks and Activities: How confident are you that you can do the different tasks and activities needed to manage your health condition so as to reduce your need to see a doctor? Select Number: 8 Medication: How confident are you that you can do things other than just taking medication to reduce how much your illness affects your everyday life? Select Number: 8 Total Score:: 8
[2020-04-01 08:42] VITALS: BP 120/70; BP 148/86; BMI 26.6
== END 2020-04-05 23:59 ==
LOC: CR 10:15
PROVIDERS: PCP Family Medicine; Referring Provider Internal Medicine Cardiovascular Disease; Visit Provider Internal Medicine Cardiovascular Disease
DX: I25.10 Atherosclerotic heart disease of native coronary artery without angina pectoris (principal); I10 Essential (primary) hypertension; E78.5 Hyperlipidemia, unspecified; G45.9 Transient cerebral ischemic attack, unspecified; Z95.1 Presence of aortocoronary bypass graft; Z86.73 Personal history of transient ischemic attack (TIA), and cerebral infarction without residual deficits
CPT/HCPCS: 93798; G0108

== ENCOUNTER 2020-04-03 13:19 | Outpatient (RCR) | payer MEDICARE, OTHER, SELFPAY ==
[2020-01-23 11:21] VITALS: BMI 25.4
[2020-02-22 09:16] VITALS: BMI 26.3
[2020-04-01 08:42] VITALS: BMI 26.6
== END 2020-04-05 23:59 ==
LOC: DC 13:19
PROVIDERS: PCP Family Medicine; Visit Provider Internal Medicine Cardiovascular Disease
DX: Z71.3 Dietary counseling and surveillance (principal); E11.9 Type 2 diabetes mellitus without complications; E78.5 Hyperlipidemia, unspecified; I25.10 Atherosclerotic heart disease of native coronary artery without angina pectoris; I10 Essential (primary) hypertension; K21.9 Gastro-esophageal reflux disease without esophagitis
CPT/HCPCS: G0108

== ENCOUNTER 2020-04-18 13:45 | Outpatient (RCR) | payer MEDICARE, OTHER, SELFPAY ==
[2020-01-23 11:21] VITALS: BMI 25.4
[2020-04-01 08:42] VITALS: BMI 26.6
== END 2020-05-06 23:59 ==
LOC: DC 13:45
PROVIDERS: PCP Family Medicine; Visit Provider Internal Medicine Cardiovascular Disease
DX: Z71.3 Dietary counseling and surveillance (principal); I10 Essential (primary) hypertension; E11.9 Type 2 diabetes mellitus without complications; E78.5 Hyperlipidemia, unspecified; I25.10 Atherosclerotic heart disease of native coronary artery without angina pectoris; K21.9 Gastro-esophageal reflux disease without esophagitis
CPT/HCPCS: 97802; G0108

== ENCOUNTER → 2020-04-23 15:41 | Outpatient (CLI) | payer MEDICARE, OTHER, SELFPAY ==
[2020-01-23 11:21] VITALS: BMI 25.4
[2020-04-01 08:42] VITALS: BMI 26.6
[2020-04-23 17:49] LABS: Absolute Lymphocyte Count 1.22 X10^3/uL (0.83-4.51); Absolute Neutrophil Count 3.5 X10^3/uL (2.0-7.7); Basophil# 0.02 X10^3/uL; Basophil% 0.3 % (0-1); Eosinophil# 0.15 X10^3/uL; Eosinophils% 2.6 % (0-5); Hematocrit 45.7 % (40-54); Hemoglobin 14.3 g/dL (13.0-16.5); Lymphocyte # 1.22 X10^3/ul (4.0); Lymphocyte % 21.1 % (19-41); Mean Corp Hgb Conc 31.3 g/dL (32-36); Mean Corpuscular Hgb 28.7 pg (27.0-32.0); Mean Corpuscular Volume 91.6 fL (80-94); Mean Platelet Vol. 10.4 fl (6.2-12.0); Monocyte# 0.83 X10^3/uL; Monocyte% 14.4 % (0-10); NRBC Flagged by Analyzer 0 % (0-5); Neutrophil # 3.52 X10^3/uL (2.7-7.7); Neutrophil % 61.1 % (47-70); Platelet Count 248 K/mm3 (150-450); RBC Distribution Width CV 17.5 % (11.6-14.6); RBC Distribution Width SD 57.3 fl (35.1-43.9); Red Blood Count 4.99 M/mm3 (4.6-6.2); White Blood Count 5.8 K/mm3 (4.4-11.0)
[2020-04-23 17:57] LABS: ALB/GLOB Ratio 1.1 RATIO (0.9-2.4); AST(SGOT) 24 U/L (15-37); Alanine Aminotransfer ALT/SGPT 32 U/L (16-61); Albumin, Serum 3.5 g/dL (3.2-5.0); Alkaline Phosphatase 264 U/L (45-117); Anion Gap 7 (5-15); BUN 14 mg/dL (7-18); BUN/Creat Ratio 15.1 RATIO (10-20); Calcium,Total 8.9 mg/dL (8.5-10.1); Chloride 107 mmol/L (98-107); Cholesterol 169 mg/dL (200); Creatinine, Serum 0.93 mg/dL (0.70-1.30); EST Glomerular Filtration Rate 86 mL/min (>60); Est Glom Filt Rate - Afr Amer 105 mL/min (>60); Globulin 3.2 g/dL (2.2-4.2); Glucose 139 mg/dL (74-106); High Density Lipoprotein 51 mg/dL; Potassium 4.1 mmol/L (3.5-5.1); Protein, Total 6.7 g/dL (6.4-8.2); Sodium Level 142 mmol/L (136-145); Triglycerides 204 mg/dL; Very Low Density Lipoprotein 41 mg/dL (5-40)
[2020-04-23 18:26] LABS: Hemoglobin A1c 6.7 % (3.8-5.6)
== END ==
PROVIDERS: PCP Family Medicine; Referring Provider Family Medicine; Visit Provider Family Medicine
DX: I10 Essential (primary) hypertension (principal); E11.9 Type 2 diabetes mellitus without complications; I25.10 Atherosclerotic heart disease of native coronary artery without angina pectoris
CPT/HCPCS: 36415; 80053; 80061; 83036; 85025

== ENCOUNTER 2020-04-29 10:15 | Outpatient (RCR) | payer MEDICARE, OTHER, SELFPAY ==
[2020-01-23 11:21] VITALS: BMI 25.4
[2020-04-01 08:42] VITALS: BMI 26.6
[2020-04-06 00:30] VITALS: BP 120/70; BP 148/86
--- NOTE | 2020-04-24 10:49 | PCM.CR.ITP ---
Exercise - Final/Discharge - Visit Date of Eval: 04/24/20 Session #:: 34 - Physician Prescribed Exercise Modalities: Treadmill, Airdyne, NuStep Frequency: 3x/week for 12 weeks [36 sessions] Intensity: 60-80% of age predicted maximum heart rate reserve Current METSs:: 5.0 Target Heart Rate:: 100-131 Current RPE:: 12 Maximum Excercise HR:: 112 Resting Blood Pressure: 104/70 Maximum Exercise Blood Pressure: 140/82 EKG Type: NSR to sinus tachycardiac with PACs. - Outcomes & Goals Goals:: Verbalizes understanding of THR, RPE & goal METS by session 6, Documents in home exercise log/reports 30 min aerobic 5 day/wk by DC, Demonstrates accurate pulse taking by DC - Intervention & Plan Exercise Program Goals: Instruct on personal THR & RPE, Instruct on MET level & personal MET goal, Show patient to take own pulse /validate performance until accurate, Instruct on home exercise - 30-day Reassessments 30 day Reassessments:: Met - Physical Activity Home Exercise Physical Activity - Home Exercise: Safe Exercise, Warm-up, Self-monitoring, Cool-Down, Home Exercise > 30 min Daily, Sitting Time <3 hours/daily - Outcomes & Goals Outcomes/Goals: Demonstrates correct Warm-up/exercise Cool-Down (S3) if = 2.5 METs, Verbalizes symptoms of exercise intolerance by Session 3 (S3), Demonstrate safe equipment use (S3) & follows exercise prescrition (6) - Intervention & Plan Plan/Intervention: Instruct warm-up & cool-down if exercising at > 2 METs, Instruct on symptoms of exercise intolerance & actions to take, Instruct & monitor on saf, Assess intial functional capacity & safety risk - 30-day Reassessments 30 day Reassessments:: Met Nutrition - Final Assessment - Program Goals Nutrition Program Goals: LDL <100 optimal. 100 - 129 Near optimal. 130 - 159 Borderline High. 160 - 189 High. Total Cholesterol <200 desirable. 200 - 239 Borderline High. >/= 240 High. HDL < 40 Low >/=60 High. Triglycerides <150 desirable. <199 optimal. VlDL 5 - 40. HgbA1C <7%. BMI <25 Patient has diagnosis of Hyperlipidemia (ICD E78)?: Yes - Visit Date of Assessment:: 04/24/20 Session #:: 34 - no recent/repeat labs - Cholesterol/Lipids Determine presence & major risk factors that modify LDL goal: Hypertension or hypertensive medication, Age men > 45 years; women >/= 55 years Outcomes/Goals: Pt IDs own risk factors & lifestyle modifications by Session 10, Verbalizes symptoms of angina & response by session 3., Pt independently manages Intervention/Plan: Instruct on personal lipid levels & lipid goals/NCEP guidelines, Instruct on cholesterol - Diabetes (Other Core Measures) Diabetes Type: Diagnosis Type II ICD-10 E11 Insulin dependent injection/pump?: No Non-Insulin Dependent?: Yes - metformin 1,000mg Outcomes/Goals:: Able to state symptoms of, Able to state, Able to state Intervention/Plan:: Instruct on, Instruct on 30-day Reassessments:: Progressing - Weight Mgt (Other Care) Not Applicable: Yes Height: 5 ft 8 in Weight:: 176 lb BMI: 26.7 Diagnosis Overweight/Obesity BMI> 30% ICD-10 E66: No Diagnosis High BMI/Morbid Obesity BMI> 35% ICD-10 Z68: No Outcomes/Goals: Pt sets, maintains & shows weight loss goal & trend during rehab - Healthy Eating Habits Will attend diet classes:: Yes Outcomes/Goals:: Consume diet rich in vegs,fruits,whole grain/high fiber,fish,lean meat, Limit sat/trans fats,cholesterol & added salts & sugars Intervention/Plan:: Assess current eating habits 30-day Reassessments:: Met - Education Gave educational materials for:: Healthy eating Medical - Final Assessment - Visit Date of Eval: 04/24/20 - Medication Compliance Preventative Medication(s):: Aspirin, LULY inhibitor, Statin/lipid, Beta bridgett H/O mental health issues: depression, anxiety, or addiction?: No Doesn?t believe in the benefits of treatment?: No Believes medications are unnecessary or harmful?: No Has a concern about medication side effects?: No Expresses concern over the cost of medications?: No Outcomes/Goals: Verbalizes medications,desired effect & common side effects @ DC, Pt self-reports following medication regimen, Keeps card in wallet w/medications listed by DC Interventions/plans: Instruct on medication effects & side effects, Review medication list w/patient every two weeks, Instruct importance of taking meds as ordered & assist problem solving 30-day Reassessments:: Met - Tobacco Use Tobacco Use: Non-smoker - Hypertension Hypertension Diagnosis:: Hypertension ICD-10 I10 Resting Blood Pressure:: 104/70 - controlled with medications [employer] Hypertension Guidelines: [employer] Hypertension Guidelines. Normal BP Less than 120/80. Elevated BP 120/80. Hypertension Stage 1: BP 130-139/80-89. Hypertesnion Stage 2: BP 140 or higher/90 or higher. Hypertension Crisis: BP higher than 180/120 Peak Exercise Blood Pressure:: 150/88 Outcomes/Goals: Able to verbalize/achieve optimal blood pressure <130/80 Interventions/plan: Instruct on optimal blood pressure, hypertension & medications, Instruct on effects of sodium, alcohol, stress, exercise &hypertension 30 day Reassessments:: Met - Tobacco Cessation Referral Smoking Cessation Referral:: No Individual Education/Counseling:: No Education Schedule Given:: Yes Psychosocial - Final Assessmen - VIsit Date of Eval: 04/24/20 Session #:: 34 Not Applicable: Yes History of previous Mental disease:: No - Target Goals Target Goals: Assess presence or absence of depression. Using a valid screening tool, maximizes coping skills. Positive support system - Psychosocial Test Tool Used:: [employer] QOL Cardiac, PHQ-9 Questionnaire phq-9 Severity: Severity. 1-4 Minimal Depression. 5-9 Mild Depression. 10-14 Moderate Depression. 15-19 Moderately Sever Depression. 20-27 Severe Depression. Rule: - Referral to Behavioral Health PS - Interventions: Yes Attend Stress Management Classes, No Referral to Behavioral Health if PHQ-9 score >9:, No Referral to [facility], No Referral to Physician if PHQ-9 if score is 5-9: - Outcomes/Goals: See list Psychosocial Outcomes/Goals:: ID's personal stressors & 2 strategies to manage stress by discharge - Intervention/Plan: See List Interventions/Plan:: Assess stressors,coping strategies & signs of derpression on admission, Instruct/assist pt to develop coping & personal stress Mgt strategies, Instruct patient to recognize signs & symptoms of depression, Instruct patient to recog - 30-day Reassessments: 30 day Reassessments:: Met Patient Health Questionnaire Discharge Assessment 1. Little interest or pleasure in doing things: Several days 2. Feeling down, depressed, or hopeless: Several days 3. Trouble falling or staying asleep, or sleeping too much: Not at all 4. Feeling tired or having little energy: Not at all 5. Poor appetite or overeating: Not at all 6. Feeling bad about yourself -- or that you are a failure or have let yourself or your family down: Not at all 7. Trouble concentrating on things, such as reading the newspaper or watching television: Not at all 8. Moving or speaking so slowly that other people could have noticed. Or the opposite - being so fidgety or restless that you have been moving around a lot more than usual: Not at all 9. Thoughts that you would be better off , or of hurting yourself in some way: Not at all How difficult have these problems made it for you to do your work, take care of things at home, or get along with other people?: Not difficult at all Total Score: 2 Self-Efficacy Discharge Assessment We would like to know how confident you are in doing certain activities. Please select your confidence level for:: Select your confidence level for the following using the scale 1-10 where 1 is not at all confident and 10 is totally confident. Your score is the average of all 6 responses. Fatigue: How confident are you that you can keep the fatigue caused by your disease from interfering with the things you want to do? Select Number: 9 Physical Discomfort or Pain: How confident are you that you can keep the physical discomfort or pain of your disease from interfering with the things you want to do? Select Number: 9 Emotional Distress: How confident are you that you can keep the emotional distress caused by your disease from interfering with the things you want to do? Select Number: 9 Other Symptoms or Health Problems: How confident are you that you can keep other symptoms or health problems from interfering with the things you want to do? Select Number: 9 Different Tasks and Activities: How confident are you that you can do the different tasks and activities needed to manage your health condition so as to reduce your need to see a doctor? Select Number: 9 Medication: How confident are you that you can do things other than just taking medication to reduce how much your illness affects your everyday life? Select Number: 9 Total Score:: 9
[2020-04-24 10:56] VITALS: BP 104/70; BP 150/88; BMI 26.7
== END 2020-05-06 23:59 ==
LOC: CR 10:15
PROVIDERS: PCP Family Medicine; Referring Provider Internal Medicine Cardiovascular Disease; Visit Provider Internal Medicine Cardiovascular Disease
DX: I25.10 Atherosclerotic heart disease of native coronary artery without angina pectoris (principal); I10 Essential (primary) hypertension; E78.5 Hyperlipidemia, unspecified; Z95.1 Presence of aortocoronary bypass graft; Z86.73 Personal history of transient ischemic attack (TIA), and cerebral infarction without residual deficits; Z71.3 Dietary counseling and surveillance
CPT/HCPCS: 93798; 97802; G0108

== ENCOUNTER → 2020-05-03 16:05 | Outpatient (CLI) | payer MEDICARE, OTHER, SELFPAY ==
[2020-01-23 11:21] VITALS: BMI 25.4
[2020-04-24 10:56] VITALS: BMI 26.7
[2020-05-03 16:14] LABS: Bacteria 0 SEEN /hpf (None Seen); Mucous, Urine 0 SEEN /hpf (<or=2+); Squamous Epithelial Cells - UA 0 SEEN /hpf (0-5)
[2020-05-03 17:19] LABS: Absolute Lymphocyte Count 1.44 X10^3/uL (0.83-4.51); Absolute Neutrophil Count 7.2 X10^3/uL (2.0-7.7); Basophil# 0.03 X10^3/uL; Basophil% 0.3 % (0-1); Eosinophil# 0.22 X10^3/uL; Eosinophils% 2.2 % (0-5); Hematocrit 43.6 % (40-54); Hemoglobin 14.1 g/dL (13.0-16.5); Lymphocyte # 1.44 X10^3/ul (4.0); Lymphocyte % 14.4 % (19-41); Mean Corp Hgb Conc 32.3 g/dL (32-36); Mean Corpuscular Hgb 29.2 pg (27.0-32.0); Mean Corpuscular Volume 90.3 fL (80-94); Mean Platelet Vol. 10.3 fl (6.2-12.0); Monocyte# 1.06 X10^3/uL; Monocyte% 10.6 % (0-10); NRBC Flagged by Analyzer 0 % (0-5); Neutrophil # 7.18 X10^3/uL (2.7-7.7); Neutrophil % 72.1 % (47-70); Platelet Count 246 K/mm3 (150-450); RBC Distribution Width CV 17.1 % (11.6-14.6); Red Blood Count 4.83 M/mm3 (4.6-6.2)
[2020-05-03 17:36] LABS: AST(SGOT) 24 U/L (15-37); Alanine Aminotransfer ALT/SGPT 30 U/L (16-61); Albumin, Serum 3.4 g/dL (3.2-5.0); Alkaline Phosphatase 230 U/L (45-117); Anion Gap 9 (5-15); BUN 18 mg/dL (7-18); BUN/Creat Ratio 15.4 RATIO (10-20); Bilirubin, Direct 0.16 mg/dL (0.00-0.30); Calcium,Total 8.7 mg/dL (8.5-10.1); Chloride 106 mmol/L (98-107); Cholesterol 155 mg/dL (200); Creatinine, Serum 1.17 mg/dL (0.70-1.30); EST Glomerular Filtration Rate 66 mL/min (>60); Est Glom Filt Rate - Afr Amer 80 mL/min (>60); GGTP 153 U/L (15-85); Globulin 3.5 g/dL (2.2-4.2); Glucose 191 mg/dL (74-106); High Density Lipoprotein 51 mg/dL; Potassium 3.9 mmol/L (3.5-5.1); Protein, Total 6.9 g/dL (6.4-8.2); Sodium Level 140 mmol/L (136-145); Triglycerides 191 mg/dL; Very Low Density Lipoprotein 38 mg/dL (5-40)
[2020-05-03 17:41] LABS: Color, Urine Yellow (Yellow); Glucose, Dipstick Normal (Normal); Ketone-Dipstick Negative (Negative); Leukocyte Esterase-Dipstick 25 /ul (Negative); Nitrite-Dipstick Negative (Negative); Occult Blood-Urine Negative /ul (Negative); Protein-Dipstick 100 mg/dl (Negative); Urine Bilirubin Dipstick Negative (Negative); Urine Clarity Clear (Clear); Urine Urobilinogen Normal (Normal)
[2020-05-03 18:05] LABS: Hyaline Cast 0-5 SEEN /lpf (0-5)
[2020-05-03 18:06] LABS: Calcium Oxalate Crystals Ur 1+ /hpf (<or=2+)
[2020-05-03 18:07] LABS: White Blood Cells 5-10 SEEN /hpf (0-5)
[2020-05-03 18:08] LABS: Red Blood Cells-Urine 0 SEEN /hpf (0-5)
[2020-05-03 18:21] LABS: Hemoglobin A1c 6.8 % (3.8-5.6)
[2020-05-03 18:40] LABS: Microalbumin:Creatinine Ratio 849.1 mg/g CRE (<30 mg/g CRE)
== END ==
PROVIDERS: PCP Family Medicine; Referring Provider Family Medicine; Visit Provider Family Medicine
DX: R74.8 Abnormal levels of other serum enzymes (principal); I10 Essential (primary) hypertension; E78.1 Pure hyperglyceridemia; R80.9 Proteinuria, unspecified; E11.9 Type 2 diabetes mellitus without complications
CPT/HCPCS: 80053; 80061; 81001; 82043; 82248; 82570; 82977; 83036; 85025

== ENCOUNTER → 2020-05-15 07:57 | Outpatient (CLI) | payer MEDICARE, OTHER, SELFPAY ==
[2020-01-23 11:21] VITALS: BMI 25.4
[2020-04-24 10:56] VITALS: BMI 26.7
--- NOTE | 2020-05-15 07:59 | US_ITS ---
STUDY: ABDOMINAL ULTRASOUND - RIGHT UPPER QUADRANT REASON FOR VISIT: Male, 65 years old ELEVATED LABS TECHNIQUE: Ultrasound evaluation of the right upper quadrant was performed with real-time and static abrams-scale imaging. TECHNICAL QUALITY: Adequate. COMPARISON: Comparison is made with prior study dated 03/27/2020. FINDINGS: Liver: The liver measures 15.3 cm. There is increased echogenicity consistent with a mild degree of fatty infiltration. The bile ducts are within normal limits. There is hepatic color flow. The direction of portal flow is hepatopetal. There is no demonstrated mass lesion. Gallbladder: There is a contracted gallbladder. There is a negative sonographic Villanueva''s sign. There is no pericholecystic fluid. No definite gallstone is seen due to the contraction of the gallbladder. Common Bile Duct (C.B.D.): The common bile duct measures 6.0 mm. Pancreas: Normal size of the head, body and tail of the pancreas. There is normal echogenicity of the pancreas. There is no demonstrated pancreatic mass or cyst. Right Kidney: Normal size of the right kidney. The right kidney measures 10.4 cm x 5 cm x 5.3 cm. Normal renal cortex. The right cortex measures 1.8 cm. There is no demonstrated renal mass or cyst. There is no right hydronephrosis. US/Abdomen Limited IMPRESSION: Fatty infiltration of the liver. Contracted gallbladder. Electronically Signed: Rah Ludwig, at 14:41 EDT , Service support ,
== END ==
PROVIDERS: PCP Family Medicine; Referring Provider Family Medicine; Visit Provider Family Medicine
DX: R74.8 Abnormal levels of other serum enzymes (principal); Z71.3 Dietary counseling and surveillance; E11.9 Type 2 diabetes mellitus without complications; I25.10 Atherosclerotic heart disease of native coronary artery without angina pectoris; I10 Essential (primary) hypertension; E78.5 Hyperlipidemia, unspecified; K21.9 Gastro-esophageal reflux disease without esophagitis
CPT/HCPCS: 76705; 97803

== ENCOUNTER 2020-05-15 13:00 | Outpatient (RCR) | payer MEDICARE, OTHER, SELFPAY ==
[2020-01-23 11:21] VITALS: BMI 25.4
[2020-04-24 10:56] VITALS: BMI 26.7
== END 2020-06-05 23:59 ==
LOC: DC 13:00
PROVIDERS: PCP Family Medicine; Visit Provider Internal Medicine Cardiovascular Disease
DX: Z71.3 Dietary counseling and surveillance (principal); E11.9 Type 2 diabetes mellitus without complications; E78.5 Hyperlipidemia, unspecified; K21.9 Gastro-esophageal reflux disease without esophagitis; I25.10 Atherosclerotic heart disease of native coronary artery without angina pectoris; I10 Essential (primary) hypertension
CPT/HCPCS: 97803; G0109

== ENCOUNTER 2020-06-19 14:00 | Outpatient (RCR) | payer MEDICARE, OTHER, SELFPAY ==
[2020-04-24 10:56] VITALS: BMI 26.7
[2020-05-31 12:24] VITALS: BMI 25.4
== END 2020-07-06 23:59 ==
LOC: DC 14:00
PROVIDERS: PCP Family Medicine; Visit Provider Internal Medicine Cardiovascular Disease
DX: Z71.3 Dietary counseling and surveillance (principal); E11.9 Type 2 diabetes mellitus without complications; I25.10 Atherosclerotic heart disease of native coronary artery without angina pectoris; I10 Essential (primary) hypertension; E78.5 Hyperlipidemia, unspecified; K21.9 Gastro-esophageal reflux disease without esophagitis
CPT/HCPCS: 97803; G0109

== ENCOUNTER 2020-07-11 14:43 | Outpatient (RCR) | payer MEDICARE, OTHER, SELFPAY ==
[2020-04-24 10:56] VITALS: BMI 26.7
[2020-05-31 12:24] VITALS: BMI 25.4
== END 2020-07-11 23:59 | disposition home or self-care (01) ==
LOC: DC 14:43
PROVIDERS: PCP Family Medicine; Visit Provider Internal Medicine Cardiovascular Disease
DX: E11.9 Type 2 diabetes mellitus without complications (principal); I25.10 Atherosclerotic heart disease of native coronary artery without angina pectoris; I10 Essential (primary) hypertension; E78.5 Hyperlipidemia, unspecified; K21.9 Gastro-esophageal reflux disease without esophagitis
CPT/HCPCS: G0109

== ENCOUNTER → 2020-08-09 09:29 | Outpatient (CLI) | payer MEDICARE, OTHER, SELFPAY ==
[2020-04-24 10:56] VITALS: BMI 26.7
[2020-05-31 12:24] VITALS: BMI 25.4
[2020-08-09 09:42] LABS: Mucous, Urine 0 SEEN /hpf (<or=2+)
[2020-08-09 12:46] LABS: Absolute Lymphocyte Count 2.03 X10^3/uL (0.83-4.51); Absolute Neutrophil Count 4.1 X10^3/uL (2.0-7.7); Basophil# 0.04 X10^3/uL; Basophil% 0.5 % (0-1); Eosinophils% 2.7 % (0-5); Hematocrit 47.2 % (40-54); Hemoglobin 14.8 g/dL (13.0-16.5); Lymphocyte # 2.03 X10^3/ul (4.0); Lymphocyte % 27.3 % (19-41); Mean Corp Hgb Conc 31.4 g/dL (32-36); Mean Corpuscular Hgb 31.4 pg (27.0-32.0); Mean Platelet Vol. 10.5 fl (6.2-12.0); Monocyte# 1.07 X10^3/uL; Monocyte% 14.4 % (0-10); NRBC Flagged by Analyzer 0 % (0-5); Neutrophil # 4.06 X10^3/uL (2.7-7.7); Neutrophil % 54.7 % (47-70); Platelet Count 224 K/mm3 (150-450); RBC Distribution Width CV 12.9 % (11.6-14.6); RBC Distribution Width SD 47.1 fl (35.1-43.9); Red Blood Count 4.72 M/mm3 (4.6-6.2); White Blood Count 7.4 K/mm3 (4.4-11.0)
[2020-08-09 13:03] LABS: Hemoglobin A1c 6.3 % (3.8-5.6)
[2020-08-09 13:08] LABS: AST(SGOT) 28 U/L (15-37); Alanine Aminotransfer ALT/SGPT 33 U/L (16-61); Albumin, Serum 3.7 g/dL (3.2-5.0); Alkaline Phosphatase 158 U/L (45-117); Anion Gap 8 (5-15); BUN 21 mg/dL (7-18); BUN/Creat Ratio 18.9 RATIO (10-20); Calcium,Total 9.2 mg/dL (8.5-10.1); Chloride 105 mmol/L (98-107); Cholesterol 113 mg/dL (200); Creatinine, Serum 1.11 mg/dL (0.70-1.30); EST Glomerular Filtration Rate 70 mL/min (>60); Est Glom Filt Rate - Afr Amer 85 mL/min (>60); Globulin 3.7 g/dL (2.2-4.2); Glucose 116 mg/dL (74-106); High Density Lipoprotein 42 mg/dL; Protein, Total 7.4 g/dL (6.4-8.2); Sodium Level 139 mmol/L (136-145); Triglycerides 270 mg/dL; Very Low Density Lipoprotein 54 mg/dL (5-40)
[2020-08-09 13:09] LABS: Color, Urine Yellow (Yellow); Glucose, Dipstick Normal (Normal); Ketone-Dipstick 5 mg/dl (Negative); Leukocyte Esterase-Dipstick 25 /ul (Negative); Nitrite-Dipstick Negative (Negative); Occult Blood-Urine 25 /ul (Negative); Protein-Dipstick 500 mg/dl (Negative); Urine Bilirubin Dipstick Negative (Negative); Urine Clarity Sl. Cloudy (Clear); Urine Urobilinogen 1 mg/dl (Normal)
[2020-08-09 13:21] LABS: Bacteria 3+ /hpf (None Seen); Red Blood Cells-Urine 0-5 SEEN /hpf (0-5); Squamous Epithelial Cells - UA 0-5 SEEN /hpf (0-5); White Blood Cells 0-5 SEEN /hpf (0-5)
[2020-08-09 13:22] LABS: Calcium Oxalate Crystals Ur 2+ /hpf (<or=2+)
[2020-08-09 13:40] LABS: Microalbumin:Creatinine Ratio 1045.2 mg/g CRE (<30 mg/g CRE)
== END ==
PROVIDERS: PCP Family Medicine; Referring Provider Family Medicine; Visit Provider Family Medicine
DX: E11.9 Type 2 diabetes mellitus without complications (principal); I10 Essential (primary) hypertension; I25.10 Atherosclerotic heart disease of native coronary artery without angina pectoris; R80.9 Proteinuria, unspecified
CPT/HCPCS: 36415; 80053; 80061; 81001; 82043; 82570; 83036; 85025

== ENCOUNTER 2020-08-27 08:01 | Day surgery (SDC) | payer MEDICARE, OTHER, SELFPAY ==
[2020-04-24 10:56] VITALS: BMI 26.7
[2020-08-13 13:40] VITALS: BMI 25.8
--- NOTE | 2020-08-27 08:01 | HP_ITS ---
Intake Vital Signs 08/13/20 Height 5 ft 8 in 08/13/20 Weight: 170 lb 08/13/20 BP 148/79 H 08/13/20 Blood Pressure Location Lt brachial 08/13/20 Position Sitting 08/13/20 Respiration 18 08/13/20 Pulse 59 L 08/13/20 Pulse Source Monitor 08/13/20 Pulse Oximetry (%) 95 08/13/20 Oxygen Delivery Method room air Intake Visit Reasons: GERD Chief Complaint: GERD [employer] Engine [employer]r Required: No Is patient in pain?: No Allergies No Known Allergies Allergy (Verified 08/13/20 13:42) Medications aspirin 81 mg tablet,delayed release 81 mg PO DAILY 09/28/19 [History Confirmed 08/13/20] dorzolamide 22.3 mg-timolol 6.8 mg/mL eye drops 1 drp OPHTHALMIC X1 09/28/19 [History Confirmed 08/13/20] duloxetine 60 mg capsule,delayed release 60 mg PO DAILY cap 10/17/19 [History Confirmed 08/13/20] metformin 1,000 mg tablet 1,000 mg PO BID tab 10/17/19 [History Confirmed 08/13/20] amlodipine 10 mg tablet 10 mg PO DAILY #90 tab 05/14/20 [Rx Confirmed 08/13/20] metoprolol tartrate 50 mg tablet 75 mg PO BID #270 tab 05/14/20 [Rx Confirmed 08/13/20] rosuvastatin 40 mg tablet 40 mg PO DAILY tab 05/31/20 [History Confirmed 08/13/20] pantoprazole 20 mg tablet,delayed release 40 mg PO DAILY tab 08/13/20 [History Confirmed 08/13/20] FOR[facility]LY [facility], [facility] Medical History Atherosclerosis of coronary artery of [place] heart without angina pectoris (Chronic) Essential hypertension (Chronic) Hyperlipidemia (Chronic) TIA (transient ischemic attack) (Chronic) Bipolar II disorder (Chronic) CVA (cerebral vascular accident) (Chronic) Depression (Chronic) GERD (gastroesophageal reflux disease) (Chronic) Hepatitis A (Chronic) Insomnia (Chronic) Sleep apnea (Chronic) Squamous cell carcinoma (Chronic) Type 2 diabetes mellitus without complication (Chronic) Diarrhea (Resolved) Elevated LFTs (Resolved) Surgical History H/O coronary artery bypass surgery (Resolved 12/15/19) History of cataract extraction (Resolved) History of colonoscopy (Resolved 2016) History of esophagogastroduodenoscopy (EGD) (Resolved) History of left heart catheterization (Resolved 11/20/19) History of tonsillectomy (Resolved) History of wisdom tooth extraction (Resolved) Family History Father Colon cancer CAD (coronary artery disease) Mother Gastric ulcer Pacemaker Pulmonary fibrosis Heart disease Social History (Updated 08/14/20 @ 07:[address] Power Williamson MD) Smoking Status: Former smoker HPI HPI HPI: TERRI JUNE, is a 65 M who presents to the office today for HPI HPI Surgical H&P: Yes HPI: TERRI JUNE, is a 65 M who presents to the office today for GERD. The patient was in the office in October and noted left chest pain radiating down his left arm. I sent the patient for cardiology and of having a triple bypass at [facility]. The patient reports he is still having some reflux symptoms when he decreased his PPI dosage to 20 mg daily and has since increased it back to 40 mg daily. ROS General General: No weight change or fatigue Cardio Cardiovascular: Yes chest pain; no murmur, pacemaker, heart disease, atrial fibrillation, high blood pressure, heart attack, heart stent, palpitations or shortness of breat with exertion Psych Psychiatric: No depression or anxiety Resp Respiratory: No shortness of breath, No sleep apnea, No cough, No COPD, No asthma, No emphysema, No wheezing Gastro Gastrointestinal: No abdominal pain, No nausea or vomiting, No diarrhea, No constipation, No blood in stool, No acid reflux, No hemorrhoids, No ulcers, No gallbladder problem, No black,tarry stools Jimy Hematologic: No blood thinners Exam Const General: cooperative Orientation: alert, oriented x3 Resp Effort & Inspection: normal respiratory effort Auscultation: clear to auscultation bilaterally Cardio Rate: regular rate Rhythm: regular rhythm Heart Sounds: no murmurs GI Inspection: non-distended Palpation: soft, nontender Assessment & Plan Problems 1. Gastroesophageal reflux disease, unspecified whether esophagitis present K21.9 Plan The patient has GERD symptoms and would like an EGD to ensure that there is no other pathology. I discussed EGD with him as well as possibility of biopsies to check for esophagitis or hiatal hernia or H. pylori. Patient understands and is well to proceed. I will keep the patient on his baby aspirin. I explained endoscopy in detail to the patient. I explained the risks including but not limited to stroke or heart attack with anesthesia, perforation of the GI tract, bleeding, infection. I explained that any of these could necessitate further emergency surgery. The patient understands and all questions were answered sufficiently. The patient wishes to proceed with procedure. We discussed the current risks associated with COVID-19. While it is understood that there is a community spread of COVID-19, the risk of james COVID-19 while at [facility] ([facility]) is very low; however, the risk cannot be completely mitigated because of the community spread of the disease. We discussed in detail the risk of exposure to and/or potential harm posed by the COVID-19 virus with having a surgery/procedure at this time versus the risk of delaying the surgery/procedure. It is not possible to know either the risk of delaying the surgery or procedure or chance of getting an infection with perfect accuracy, but a joint decision was made to proceed at this time with the scheduled surgery/procedure as indicated on the consent form. Patient was notified that we will need to comply with any screening or testing [facility] wishes to perform or that surgery may be delayed for any positive results. Power Williamson MD Pager: [facility] [address] [place] [address], [address] [place] [address] Office: Orders Orders: EGD Today K21.9 Coding Level of Care Code Off vis,est,level 3 Diagnoses Gastroesophageal reflux disease, unspecified whether esophagitis present K21.9 ??Esophagitis presence: esophagitis presence not specified I have re-examined the patient. There are no clinical changes since date of exam.
[2020-08-27 08:32] VITALS: BP 132/78; PULSE 60; RESP 16; TEMP 36.3; O2SAT 95; BMI 25.9
[2020-08-27] MEDS: Lactated Ringers 1,000 ML 100 ML IV (08:32)
[2020-08-27 08:41] LABS: Bedside Glucose 139 mg/dL (70-110)
--- NOTE | 2020-08-27 09:00 | IMM_PTH ---
PATIENT: TERRI JUNE Jr. LOC: EN U#:[id number] AGE/SX: 65/M ROOM: RE08/27/[address]: Dr. Power Williamson MD : 1955 BED: DIS: 08/27/2020 SPEC #: [id number] RECD: 08/27/20 13:48 STATUS: CHAVEZ REQ #: [id number] KEYONA: 08/27/20 09:[address]: Power Williamson DEPT: IMMUNOHISTOCHEMISTRY RECD BY: Yazmin Rojas ENTERED: 08/27/20 13:48 SP TYPE: IMMUNO OTHR DR: Dr. Iván Case MD Tissues: A - Stomach, NOS Procedures: H Pylori (initial) PHYSICIAN & INSTITUTION [place] [address] SPECIMEN INFORMATION: Tissue Source: A - Antrum biopsy Clinical Info: GERD, esophagitis Specimen Number: [id number] CPT code: 63500 METHODOLOGY: Deparaffinized sections of prefer/formalin-fixed tissue or PAP/DQ stained slides are incubated with monoclonal/polyclonal antibodies/oligonucleotide probes. Localization is made via biotin free immunoperoxidase method. Appropriate controls are performed and reacted as expected. Results on target cell population are indicated in the following table: RESULTS: ANTIBODY / CLONE RESULT Block A H Pylori (polyclonal) negative These tests were developed and their performance characteristics determined by [facility]. They may not have been cleared or approved by the U.S. Food and Drug Administration. The FDA has determined that such clearance or approval is not necessary. INTERPRETATION: A. Antrum, biopsy: Negative for Helicobacter pylori organisms. SJ:herb 08/28/20
--- NOTE | 2020-08-27 09:00 | EGD_PTH ---
PATIENT: TERRI JUNE Jr. LOC: EN U#:[id number] AGE/SX: 65/M ROOM: RE08/27/[address]: Dr. Power Williamson MD : 1955 BED: DIS: 08/27/2020 SPEC #: [id number] RECD: 08/27/20 11:00 STATUS: CHAVEZ FLAQUITO #: [id number] KEYONA: 08/27/20 09:[address]: Power Williamson DEPT: SURGICAL PATHOLOGY RECD BY: Agueda Pierre ENTERED: 08/27/20 11:50 SP TYPE: EGD BIOPSY OT DR: Dr. Iván Case MD Tissues: A - Gastric mucous membrane B - Stomach, NOS Procedures: Surgery Specimen Level IV HEADER OPERATION: EGD ([facility] [place]) PRE-OP DIAGNOSIS: GERD, esophagitis TISSUE SUBMITTED: A - Antrum biopsy for H. pylori and path, B - Biopsies of stomach wall MICROSCOPIC DIAGNOSIS A. Antrum, biopsy: Mild gastritis. See microscopic description and comment. B. Stomach wall, biopsy: Mild gastritis. See microscopic description. BLAIR:herb 08/28/20 COMMENT A. The results of immunohistochemistry for Helicobacter pylori will be reported separately ([id number]). MICROSCOPIC DESCRIPTION Slides are reviewed. A & B. The specimen shows fragments of gastric mucosa with chronic inflammatory cell infiltrates in the lamina propria consisting of lymphocytes and plasma cells, consistent with mild chronic gastritis. GROSS DESCRIPTION A - Received in fixative is one container labeled with the patient's name and designated antrum biopsy. The specimen consists of multiple irregular fragments of light manuel soft tissue that in aggregate measure 1.5 x 0.5 x 0.1 cm. The specimen is totally submitted in one cassette. B - Received in fixative is one container labeled with the patient's name and designated biopsy of stomach wall. The specimen consists of multiple irregular fragments of light manuel soft tissue that in aggregate measure 0.7 x 0.3 x 0.1 cm. The specimen is totally submitted in one cassette. / SJ:herb 08/27/20 TC:3 CPT: 56800 x2
--- NOTE | 2020-08-27 09:12 | PCM.PN.BLA ---
Progress Note I performed an EGD on Mr. Callaway today. The patient had retained food bolus. The sanchez of the stomach also appeared irritated. Biopsies were performed for pathology and H. pylori. The patient likely has gastroparesis. I will forward this note to the patient's PCP to see if he would like to start Reglan to see if there is any improvement in symptoms. Patient is on multiple medications so I do not want to start this medication myself for fear of drug interaction but that would be my recommendation for Dr. Case. Power Williamson MD Pager: [facility] [address] [place] [address], [address] [place] [address] Office: STROKE Vital Signs/Narrative: Vital Signs Temp Pulse Resp BP Pulse Ox 08/27/20 08:32 97.3 F L 60 16 132/78 H 95
[2020-08-27 09:15] VITALS: BP 132/78; BP 90/63; PULSE 65; RESP 16; TEMP 36.4; O2SAT 97
--- NOTE | 2020-08-27 09:16 | OP.EGD_ITS ---
Patient Name: Douglas Callaway Procedure Date: 08/27/2020 8:48 AM Date of : 1955 Age: 65 Procedure: Upper GI endoscopy Indications: Epigastric abdominal pain, Functional Dyspepsia, Suspected gastro-esophageal reflux disease Providers: Power Williamson MD Referring MD: Iván Case Medicines: Monitored Anesthesia Care Patient Profile: This is a 65 year old male. Refer to note in patient chart for documentation of history and physical. Complications: No immediate complications. Estimated blood loss: Minimal. Procedure: Pre-Anesthesia Assessment: - Prior to the procedure, a History and Physical was performed, and patient medications and allergies were reviewed. The patient's tolerance of previous anesthesia was also reviewed. The risks and benefits of the procedure and the sedation options and risks were discussed with the patient. All questions were answered, and informed consent was obtained. Prior Anticoagulants: The patient has taken no previous anticoagulant or antiplatelet agents. After reviewing the risks and benefits, the patient was deemed in satisfactory condition to undergo the procedure. After obtaining informed consent, the endoscope was passed under direct vision. Throughout the procedure, the patient's blood pressure, pulse, and oxygen saturations were monitored continuously. The Endoscope was introduced through the mouth, and advanced to the second part of duodenum. The upper GI endoscopy was accomplished without difficulty. The patient tolerated the procedure well. Scope In: 9:03:04 AM Scope Out: 9:08:34 AM Total Procedure Duration Time 0 hours 5 minutes 30 seconds Findings: The esophagus was normal. A large amount of food (residue) was found in the gastric body. Diffuse moderately erythematous mucosa without bleeding was found in the stomach. Biopsies were taken with a cold forceps for Helicobacter pylori testing. The examined duodenum was normal. Impression: - Normal esophagus. - A large amount of food (residue) in the stomach. - Erythematous mucosa in the stomach. Biopsied. - Normal examined duodenum. Recommendation: - Await pathology results. - Discharge patient to home. - Resume previous diet. - Continue present medications. Procedure Code(s): --- Professional --- 70486, Esophagogastroduodenoscopy, flexible, transoral; with biopsy, single or multiple Diagnosis Code(s): --- Professional --- K31.89, Other diseases of stomach and duodenum R10.13, Epigastric pain K30, Functional dyspepsia CPT copyright 2017 [employer] [place] [employer]. All rights reserved. The codes documented in this report are preliminary and upon manager wholesale review may be revised to meet current compliance requirements. Power Williamson MD 08/27/2020 9:15:47 AM This report has been signed electronically. Number of Addenda: 0 Note Initiated On: 08/27/2020 8:48 AM
--- NOTE | 2020-08-27 09:16 | OP.CCLET_ITS ---
08/27/2020 Iván Case [address] [place] [address] Re : Upper GI endoscopy procedure for Douglas Callaway Dear Dr. Case This procedure was performed on Thursday, August 27, 2020. My impressions and recommendations are as follows: Impressions : - Normal esophagus. - A large amount of food (residue) in the stomach. - Erythematous mucosa in the stomach. Biopsied. - Normal examined duodenum. Recommendations : - Await pathology results. - Discharge patient to home. - Resume previous diet. - Continue present medications. My findings are described in the full procedure note, which is enclosed. If I can be of further assistance, please feel free to contact me at Doctor phone number(s): , Work: . Sincerely, Power Williamson MD 08/27/2020 9:15:47 AM This report has been signed electronically.
[2020-08-27 09:20] VITALS: BP 132/78; BP 92/66; PULSE 62; RESP 16; O2SAT 97
[2020-08-27 09:25] VITALS: BP 121/60; BP 132/78; PULSE 64; RESP 16; O2SAT 96
[2020-08-27 09:29] VITALS: BP 108/74; BP 132/78; PULSE 63; RESP 16; TEMP 36.6; O2SAT 98
[2020-08-27 10:00] VITALS: BP 132/78
== END 2020-08-27 10:13 | disposition home or self-care (01) ==
LOC: EN 08:01 → AC 08:02
PROVIDERS: PCP Family Medicine; Referring Provider Family Medicine; Visit Provider Surgery
PROC: 0DJ08ZZ Inspection of Upper Intestinal Tract, Via Natural or Artificial Opening Endoscopic (ICD-10-PCS; CPT 43235; principal; 2020-08-27 08:55)
DX: K29.70 Gastritis, unspecified, without bleeding (principal); K21.9 Gastro-esophageal reflux disease without esophagitis; Z20.828 Contact with and (suspected) exposure to other viral communicable diseases; K31.89 Other diseases of stomach and duodenum; K58.9 Irritable bowel syndrome, unspecified; I25.10 Atherosclerotic heart disease of native coronary artery without angina pectoris; E11.9 Type 2 diabetes mellitus without complications; I10 Essential (primary) hypertension; E78.5 Hyperlipidemia, unspecified; G47.30 Sleep apnea, unspecified; F31.81 Bipolar II disorder; Z79.82 Long term (current) use of aspirin; Z79.84 Long term (current) use of oral hypoglycemic drugs; Z79.899 Other long term (current) drug therapy; Z86.73 Personal history of transient ischemic attack (TIA), and cerebral infarction without residual deficits; Z87.891 Personal history of nicotine dependence; Z95.1 Presence of aortocoronary bypass graft
CPT/HCPCS: 43239; 82962; 87426; 88305; 88342; C9803; J7120; J2405

== ENCOUNTER → 2020-10-08 15:02 | Outpatient (CLI) | payer MEDICARE, OTHER, SELFPAY ==
[2020-04-24 10:56] VITALS: BMI 26.7
[2020-10-08 18:27] LABS: PSA,Total - Annual Screen 0.73 ng/mL (0.00-4.00)
== END ==
PROVIDERS: PCP Family Medicine; Referring Provider Family Medicine; Visit Provider Family Medicine
DX: Z12.5 Encounter for screening for malignant neoplasm of prostate (principal)
CPT/HCPCS: 36415; 84153; G0103

== ENCOUNTER → 2020-10-21 12:53 | Outpatient (CLI) | payer MEDICARE, OTHER, SELFPAY ==
[2020-04-24 10:56] VITALS: BMI 26.7
--- NOTE | 2020-10-21 12:55 | NM_ITS ---
CLINICAL: 65-year-old diabetic male with history of abdominal bloating and nausea. SEMI-SOLID PHASE 99m Tc SULFUR COLLOID GASTRIC EMPTYING STUDY COMPARISON: None available FINDINGS: The patient was administered 1.1 mCi of 99m Tc sulfur colloid mixed with oatmeal and consumed per os. Image acquisitions in the anterior-posterior projections for a total of 60 minutes. There is prompt visualization of the stomach. There is no gastroesophageal reflux identified. There is no discernible emptying of the gastric contents on meticulous review of all acquisitions. The T ? linear fit was not calculable, (Normal: 12-56 minutes). NM/Gastric Emptying Study IMPRESSION: 1. MARKEDLY ABNORMAL 99m Tc sulfur colloid semi-solid phase (oatmeal) gastric emptying imaging examination. A. There is significant-severe delayed semi-solid phase gastric emptying compared to normal controls. (Jw et al, J Nucl Med Tech 38: 186, 2010). Electronically Signed: Kristopher Zaman DO at 8:24 EST Tel , Service support ,
== END ==
PROVIDERS: PCP Family Medicine; Referring Provider Family Medicine; Visit Provider Family Medicine
DX: K31.84 Gastroparesis (principal)
CPT/HCPCS: 78264; A9541

== ENCOUNTER → 2021-02-05 11:55 | Outpatient (CLI) | payer MEDICARE, OTHER, SELFPAY ==
[2020-04-24 10:56] VITALS: BMI 26.7
[2021-02-05 14:57] LABS: Absolute Lymphocyte Count 2.16 X10^3/uL (0.83-4.51); Absolute Neutrophil Count 4.9 X10^3/uL (2.0-7.7); Basophil# 0.03 X10^3/uL; Basophil% 0.4 % (0-1); Eosinophils% 2.4 % (0-5); Hematocrit 45.3 % (40-54); Hemoglobin 14.6 g/dL (13.0-16.5); Lymphocyte # 2.16 X10^3/ul (0.83-4.51); Lymphocyte % 26.3 % (19-41); Mean Corp Hgb Conc 32.2 g/dL (32-36); Mean Corpuscular Hgb 31.3 pg (27.0-32.0); Mean Corpuscular Volume 97.2 fL (80-94); Mean Platelet Vol. 10.9 fl (6.2-12.0); Monocyte# 0.89 X10^3/uL; Monocyte% 10.9 % (0-10); NRBC Flagged by Analyzer 0 % (0-5); Neutrophil # 4.87 X10^3/uL (2.7-7.7); Neutrophil % 59.4 % (47-70); Platelet Count 225 K/mm3 (150-450); RBC Distribution Width CV 13.2 % (11.6-14.6); RBC Distribution Width SD 45.3 fl (35.1-43.9); Red Blood Count 4.66 M/mm3 (4.6-6.2); White Blood Count 8.2 K/mm3 (4.4-11.0)
[2021-02-05 15:21] LABS: Hemoglobin A1c 6.6 % (3.8-5.6)
[2021-02-05 15:23] LABS: AST(SGOT) 28 U/L (15-37); Alanine Aminotransfer ALT/SGPT 37 U/L (16-61); Albumin, Serum 3.4 g/dL (3.2-5.0); Alkaline Phosphatase 184 U/L (45-117); Anion Gap 6 (5-15); BUN 19 mg/dL (7-18); BUN/Creat Ratio 13.6 RATIO (10-20); Calcium,Total 9.5 mg/dL (8.5-10.1); Chloride 101 mmol/L (98-107); Cholesterol 108 mg/dL (200); EST Glomerular Filtration Rate 54 mL/min (>60); Est Glom Filt Rate - Afr Amer 65 mL/min (>60); Globulin 3.5 g/dL (2.2-4.2); Glucose 141 mg/dL (74-106); High Density Lipoprotein 49 mg/dL; Potassium 4.1 mmol/L (3.5-5.1); Protein, Total 6.9 g/dL (6.4-8.2); Sodium Level 138 mmol/L (136-145); Triglycerides 326 mg/dL; Very Low Density Lipoprotein 65 mg/dL (5-40)
[2021-02-07 10:01] LABS: GGTP 63 U/L (15-85)
== END ==
PROVIDERS: PCP Family Medicine; Referring Provider Family Medicine; Visit Provider Family Medicine
DX: E11.9 Type 2 diabetes mellitus without complications (principal); R74.8 Abnormal levels of other serum enzymes
CPT/HCPCS: 36415; 80053; 80061; 82977; 83036; 85025

== ENCOUNTER → 2021-02-18 16:03 | Outpatient (CLI) | payer MEDICARE, OTHER, SELFPAY ==
[2020-04-24 10:56] VITALS: BMI 26.7
[2021-02-18 18:19] LABS: Anion Gap 7 (5-15); BUN 18 mg/dL (7-18); BUN/Creat Ratio 13.1 RATIO (10-20); Chloride 106 mmol/L (98-107); Creatinine, Serum 1.37 mg/dL (0.70-1.30); EST Glomerular Filtration Rate 55 mL/min (>60); Est Glom Filt Rate - Afr Amer 67 mL/min (>60); GGTP 50 U/L (15-85); Glucose 128 mg/dL (74-106); Potassium 4.3 mmol/L (3.5-5.1); Sodium Level 141 mmol/L (136-145)
== END ==
PROVIDERS: PCP Family Medicine; Referring Provider Family Medicine; Visit Provider Family Medicine
DX: R94.4 Abnormal results of kidney function studies (principal); R74.8 Abnormal levels of other serum enzymes
CPT/HCPCS: 36415; 80048; 82977

== ENCOUNTER → 2021-03-21 09:09 | Outpatient (CLI) | payer MEDICARE, OTHER, SELFPAY ==
[2020-04-24 10:56] VITALS: BMI 26.7
[2021-03-21 10:47] LABS: Potassium 4.5 mmol/L (3.5-5.1)
== END ==
PROVIDERS: PCP Family Medicine; Visit Provider Family Medicine
DX: E87.5 Hyperkalemia (principal)
CPT/HCPCS: 36415; 84132

== ENCOUNTER → 2021-04-30 10:41 | Outpatient (CLI) | payer MEDICARE, OTHER, SELFPAY ==
[2020-04-24 10:56] VITALS: BMI 26.7
[2021-04-30 12:11] LABS: Absolute Lymphocyte Count 1.24 X10^3/uL (0.83-4.51); Basophil# 0.03 X10^3/uL; Basophil% 0.3 % (0-1); Eosinophil# 0.04 X10^3/uL; Eosinophils% 0.4 % (0-5); Hematocrit 31.7 % (40-54); Hemoglobin 10.4 g/dL (13.0-16.5); Lymphocyte # 1.24 X10^3/ul (0.83-4.51); Lymphocyte % 13.2 % (19-41); Mean Corp Hgb Conc 32.8 g/dL (32-36); Mean Corpuscular Hgb 31.6 pg (27.0-32.0); Mean Corpuscular Volume 96.4 fL (80-94); Mean Platelet Vol. 10.6 fl (6.2-12.0); Monocyte# 1.06 X10^3/uL; Monocyte% 11.3 % (0-10); NRBC Flagged by Analyzer 0 % (0-5); Neutrophil # 6.99 X10^3/uL (2.7-7.7); Neutrophil % 74.2 % (47-70); Platelet Count 211 K/mm3 (150-450); RBC Distribution Width CV 13.3 % (11.6-14.6); RBC Distribution Width SD 46.2 fl (35.1-43.9); Red Blood Count 3.29 M/mm3 (4.6-6.2); White Blood Count 9.4 K/mm3 (4.4-11.0)
[2021-04-30 12:21] LABS: Partial Thromboplast Time 30.3 Seconds (24.1-36.2); Prothrombin Time (Protime)PT. 12.9 SECONDS (11.7-14.9)
== END ==
PROVIDERS: PCP Family Medicine; Referring Provider Family Medicine; Visit Provider Family Medicine
DX: R58 Hemorrhage, not elsewhere classified (principal)
CPT/HCPCS: 36415; 85025; 85610; 85730

== ENCOUNTER → 2021-05-15 11:56 | Outpatient (CLI) | payer MEDICARE, OTHER, SELFPAY ==
[2020-04-24 10:56] VITALS: BMI 26.7
[2021-05-15 14:50] LABS: Hematocrit 32.9 % (40-54); Hemoglobin 10.3 g/dL (13.0-16.5); Mean Corp Hgb Conc 31.3 g/dL (32-36); Mean Corpuscular Volume 102.2 fL (80-94); Mean Platelet Vol. 10.5 fl (6.2-12.0); Platelet Count 262 K/mm3 (150-450); RBC Distribution Width CV 14.7 % (11.6-14.6); RBC Distribution Width SD 54.3 fl (35.1-43.9); Red Blood Count 3.22 M/mm3 (4.6-6.2); White Blood Count 4.8 K/mm3 (4.4-11.0)
[2021-05-15 15:03] LABS: ALB/GLOB Ratio 0.7 RATIO (0.9-2.4); AST(SGOT) 24 U/L (15-37); Alanine Aminotransfer ALT/SGPT 25 U/L (16-61); Albumin, Serum 2.8 g/dL (3.2-5.0); Alkaline Phosphatase 339 U/L (45-117); Anion Gap 6 (5-15); BUN 25 mg/dL (7-18); BUN/Creat Ratio 17.6 RATIO (10-20); Chloride 110 mmol/L (98-107); Cholesterol 83 mg/dL (200); Creatinine, Serum 1.42 mg/dL (0.70-1.30); EST Glomerular Filtration Rate 53 mL/min (>60); Est Glom Filt Rate - Afr Amer 64 mL/min (>60); Globulin 4.1 g/dL (2.2-4.2); Glucose 138 mg/dL (74-106); High Density Lipoprotein 50 mg/dL; Potassium 3.8 mmol/L (3.5-5.1); Protein, Total 6.9 g/dL (6.4-8.2); Sodium Level 141 mmol/L (136-145); Triglycerides 135 mg/dL; Very Low Density Lipoprotein 27 mg/dL (5-40)
[2021-05-15 15:13] LABS: Hemoglobin A1c 6.9 % (3.8-5.6)
== END ==
PROVIDERS: PCP Family Medicine; Referring Provider Family Medicine; Visit Provider Nurse Practitioner Family
DX: E11.9 Type 2 diabetes mellitus without complications (principal); I10 Essential (primary) hypertension; I25.10 Atherosclerotic heart disease of native coronary artery without angina pectoris
CPT/HCPCS: 36415; 80053; 80061; 83036; 85027

== ENCOUNTER 2021-05-22 07:57 | Day surgery (SDC) | payer MEDICARE, OTHER, SELFPAY ==
[2020-04-24 10:56] VITALS: BMI 26.7
[2021-05-22] VITALS (7 sets, daily range): BP systolic 99–132; BP diastolic 62–86; PULSE 50–98; RESP 10–18; TEMP 36.1–36.3; O2SAT 91–98; BMI 26.2
[2021-05-22] MEDS: Lactated Ringers 1,000 ML 100 ML IV (08:58)
[2021-05-22 08:59] LABS: Absolute Neutrophil Count 2.7 X10^3/uL (2.0-7.7); Basophil# 0.02 X10^3/uL; Basophil% 0.4 % (0-1); Eosinophil# 0.14 X10^3/uL; Hemoglobin 10.3 g/dL (13.0-16.5); Lymphocyte % 26.1 % (19-41); Mean Corp Hgb Conc 32.2 g/dL (32-36); Mean Corpuscular Hgb 32.7 pg (27.0-32.0); Mean Corpuscular Volume 101.6 fL (80-94); Mean Platelet Vol. 10.6 fl (6.2-12.0); Monocyte# 0.48 X10^3/uL; Monocyte% 10.4 % (0-10); NRBC Flagged by Analyzer 0 % (0-5); Neutrophil # 2.74 X10^3/uL (2.7-7.7); Neutrophil % 59.7 % (47-70); Platelet Count 228 K/mm3 (150-450); RBC Distribution Width CV 14.4 % (11.6-14.6); RBC Distribution Width SD 52.8 fl (35.1-43.9); Red Blood Count 3.15 M/mm3 (4.6-6.2); White Blood Count 4.6 K/mm3 (4.4-11.0)
[2021-05-22 09:01] LABS: Bedside Glucose 137 mg/dL (70-110)
[2021-05-22] MEDS: Cefazolin 2 GM in 0.9% Normal Saline 100 ML IV (09:30)
--- NOTE | 2021-05-22 09:35 | RAD_ITS ---
STUDY: X-RAY - RIGHT HUMERUS REASON FOR EXAM: Male, 66 years old. ORIF HUMERUS FX TECHNIQUE: 3 fluoroscopic intraoperative spot view(s) of the humerus. Dosage information fluoroscopy time are not provided. COMPARISON: None. FINDINGS/ RAD/Humerus min 2 Views IMPRESSION: Screw-plate hardware is noted at the proximal humerus across a comminuted fracture. The other osseous structures and soft tissues are unremarkable. Electronically Signed: Armando Castillo MD at 18:46 EDT Tel , Service support ,
--- NOTE | 2021-05-22 12:01 | PCM.DC ---
Discharge Instructions Follow Up Care Test Results: Test results from this visit will be discussed in further detail at your follow-up appointment, if applicable. Discharge Plan Admission Primary Reason for Your Visit: Right proximal humerus orif Attending Provider: Ge Anderson Primary Care Provider: Iván Case Instructions Patient Instructions: ED Chest Pain, Noncardiac Additional Instructions / Restrictions: Maintain sling until follow-up. Okay to remove for gentle pendulum exercises, otherwise no active range of motion. Okay for wrist and elbow and hand range of motion as tolerated. Maintain dressing x7 days then okay to remove and shower. Nonweightbearing right hand/upper extremity. Discharge Orders/Prescriptions Prescriptions: New oxycodone-acetaminophen [Percocet] 5-325 mg tablet 1 tab PO Q6H PRN (Reason: pain) 7 Days Qty: 28 RF: 0 Continued dorzolamide-timolol [Cosopt] 22.3-6.8 mg/mL drops 1 drp OPHTHALMIC BID RF: 0 aspirin [Adult Low Dose Aspirin] 81 mg tablet,delayed release (DR/EC) 81 mg PO DAILY RF: 0 duloxetine 60 mg capsule,delayed release(DR/EC) 60 mg PO DAILY RF: 0 metformin 1,000 mg tablet 1,000 mg PO BID RF: 0 rosuvastatin 40 mg tablet 40 mg PO DAILY RF: 0 pantoprazole 20 mg tablet,delayed release (DR/EC) 40 mg PO DAILY RF: 0 metoprolol tartrate 50 mg tablet 75 mg PO BID Qty: 270 RF: 4 amlodipine 10 mg tablet 10 mg PO DAILY Qty: 90 RF: 4 Referrals / Follow Up: Iván Case MD [Primary Care Provider] - Disposition Disposition (needs filled in before D/C Order can be placed): Home, Self Care
--- NOTE | 2021-05-22 21:00 | OP.PCM_ITS ---
Problems Associated Problem List Diagnoses (1) Fracture of humerus, proximal, right, closed: Report of Operation Date of Procedure: 05/22/21 Description of Surgical Findings:: Preoperative diagnosis: Right displaced 2 part surgical neck proximal humerus fracture Postoperative diagnosis: Right displaced 2 part surgical neck proximal humerus fracture Procedure: Open reduction internal fixation right proximal humerus Surgeon: Ge Anderson DO Physical Therapy Aides Teacher: Larisa Acosta PA-C Anesthesia: General endotracheal Anesthesiologist: Dr. Kothari Complications: None apparent Drains: None Estimated blood loss: 100 cc Urinary output: None cc IV fluids: 1200 cc crystalloid Specimens: None Surgical implants: Arthrex 5 Hole Suture Plate and screws Surgical indications: This is a 66-year-old male seen in the outpatient setting after awakening 1 mor sami with right shoulder pain. He initially was unsure the details. Eventually patient admitted to having a few drinks of alcohol prior to going to bed and believes he fell during the night which time he sustained a right shoulder fracture. X-rays were obtained in our office and confirmed the diagnosis. He was followed for about a week with serial x-rays due to the amount of displacement. The displacement persisted as well as his pain. Surgical intervention was recommended in the form of right proximal humerus open reduction internal fixation. Risk, benefits, alternatives to the procedure reviewed with patient at length and agreed to proceed. The risks included but were not limited to bleeding, infection, loss of life or limb, risk of anesthesia, persistent pain, malunion, nonunion, need for additional surgery, neurovascular injury, stiffness. Patient expressed understanding of these risks and wished to proceed with surgery. 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 Surgical details: Patient arrived to [facility] morning of 05/22/2021 and was greeted by the same day surgery staff. Prior to his procedure, I greeted the patient in the preoperative holding area. Identified the patient by name, record number, and date of . Informed consent was confirmed. The operative extremity was marked. All questions were answered to patient satisfaction. Patient was also seen by anesthesia staff. Interscalene block was administered prior to procedure for postoperative analgesia. At time of his procedure, patient was brought to the operative suite and positioned supine on a standard table with a beachchair attachment. General anesthesia was induced after all bony prominences were well-padded. Endotracheal tube was placed. After adequate anesthesia and securing the tube, we prepared the patient to be positioned in the beachchair position. A well- padded auto headlight mechanic was applied. The nonoperative extremity was placed in a well arm titus. He was then brought into the beachchair position after we confirmed an appropriate blood pressure. We then spun the bed 45 degrees. The operative extremity was then prepared. In the butterfly wing of the bed was removed and a well-padded torso strap was applied to secure the patient to the bed. The upper extremity was now free. We then prepped and draped the right upper extremity in normal, sterile orthopedic fashion. We then performed a timeout with all parties in attendance in agreement with the side, site, and operation be performed. 2 g Ancef was administered prior to incision by anesthesia staff. No concerns were voiced and we elected to proceed. I first marked a standard deltopectoral incision just lateral to the coracoid process in line with the long axis of the humerus. Skin was sharply incised with 10 blade scalpel. I then dissected bluntly through the subcutaneous layers and found the fat stripe between the deltoid and pectoralis major. The cephalic vein was then identified and protected. It was retracted laterally with the deltoid. I then bluntly dissected underneath the deltoid with a Teresa elevator. This quickly identified the fracture site. The upper third of the pectoralis major was released due to its proximity the fracture and need for access to the fracture site. Fracture reduction forceps were utilized to reduce the deformity. I placed 2 K wires in the humeral head to act as a joystick and aid in reduction. After appropriate reduction, we selected a 5 hole Arthrex suture plate. The plate was secured with K wires and provisional fluoroscopic images demonstrated appropriate reduction and placement of the hardware. We then secured the plate to the bone with cortical screws in the diaphysis and then t urned our attention to the humeral head where a series of locking screws variable-angle were placed in the humeral head. After completing hardware insertion, we obtained final fluoroscopic images. The fracture appears to be near anatomically reduced. Hardware appears to be of appropriate size and position. To assist in fixation, I placed 2 suture tapes 1 in the subscapularis through the plate and the other in the supraspinatus through the plate. We then copiously irrigated the wound with normal saline solution. We reapproximated the interval with 0 Vicryl suture. Subcutaneous layers were reapproximated with 2-0 Vicryl suture. Skin was finally reapproximated jean-pierre. A sterile compression dressing was applied. Patient tolerated procedure well without complication. He was positioned back in the supine position extubated in the operative suite. He was transferred to the [facility] and subsequently to PACU in stable condition. Intraoperative medications: 2 g Ancef IV Larisa Acosta PA-C was critical to the outcome of the case. During the course of the procedure the physician education administrative assistant played a vital role. Her intimate knowledge of my steps in the procedure aided in safe and expedient completion of the procedure. The PA played a vital role in positioning particularly in obtaining the appropriate positioning. The PA was also vital in the retraction of soft tissues during the exposure and projecting vital structures. The PA was also vital and protecting soft tissues during times of hardware placement and fracture reduction she also played a vital role in closure with my direct supervision. Post Operative Plan: Weightbearing: Nonweightbearing right upper extremity, okay for pendulums. Range of motion of wrist elbow and hand as tolerated. Antibiotics: 2 g Ancef IV prior to incision DVT Prophylaxis: Restart aspirin tomorrow [place]: None Dressing: Maintain silver dressing x7 days. Okay to shower dressing on started on day 2 X-Rays: 2 weeks postop in the office Pain Medication: Percocet Rx upon discharge Follow-up: 2 weeks post-operatively with me in the office Discharge summary: Date of admission: 05/22/2021 Date of discharge 05/22/2021 Hospital course: Patient underwent the above procedure with plan same-day surgery. He tolerated procedure well without complication. He was able to be safely discharged to home in stable condition.
== END 2021-05-22 14:29 | disposition home or self-care (01) ==
LOC: SDC 07:59 → AC 08:00
PROVIDERS: PCP Family Medicine; Referring Provider Student in an Organized Health Care Education/Training Program; Visit Provider Student in an Organized Health Care Education/Training Program
PROC: (CPT 23615; principal; 2021-05-22 09:15)
DX: S42.221A 2-part displaced fracture of surgical neck of right humerus, initial encounter for closed fracture (principal); X58.XXXA Exposure to other specified factors, initial encounter; Y93.9 Activity, unspecified; Y92.9 Unspecified place or not applicable; Y99.9 Unspecified external cause status; I25.10 Atherosclerotic heart disease of native coronary artery without angina pectoris; E11.9 Type 2 diabetes mellitus without complications; I10 Essential (primary) hypertension; E78.5 Hyperlipidemia, unspecified; K21.9 Gastro-esophageal reflux disease without esophagitis; G47.30 Sleep apnea, unspecified; F31.81 Bipolar II disorder; E66.3 Overweight; Z68.26 Body mass index [BMI] 26.0-26.9, adult; Z79.899 Other long term (current) drug therapy; Z87.891 Personal history of nicotine dependence; Z86.73 Personal history of transient ischemic attack (TIA), and cerebral infarction without residual deficits; Z95.1 Presence of aortocoronary bypass graft
CPT/HCPCS: 01630; 23615; 64415; 73060; 76000; 82962; 85025; 86850; 86900; 86901; C1713; J7120; J2405

== ENCOUNTER 2021-09-01 05:59 | Inpatient (IN) | payer MEDICARE, OTHER, SELFPAY ==
[2020-04-24 10:56] VITALS: BMI 26.7
[2021-09-01] VITALS (7 sets, daily range): BP systolic 147–171; BP diastolic 85–108; PULSE 57–99; RESP 16–18; TEMP 36–36.6; O2SAT 94–96; BMI 25.0; BMI 25.9
--- NOTE | 2021-09-01 06:13 | CT_ITS ---
STUDY: CT ABDOMEN AND PELVIS WITH CONTRAST REASON FOR EXAM: Male, 66 years old patient with upper abdominal pain. RADIATION DOSAGE (If Supplied By Facility): CTDIvol = ( 12.61 ) mGy, DLP = ( 854.55 ) mGycm TECHNIQUE: Transaxial images were obtained from the dome of the diaphragm to the symphysis pubis without oral contrast. 100 mL of IV Isovue-300 was administered. Sagittal and coronal images were reconstructed. Individualized dose optimization techniques were used for this CT. COMPARISON: None. FINDINGS: The visualized lung bases are unremarkable. The visualized portions of the heart are within normal limits. There are coronary artery vascular calcifications. Normal liver. There are multiple gallstones. There is mild dilatation of the common bile duct with maximum transverse dimension and approximately 9.5 mm. Normal spleen. Normal pancreas. Normal bilateral adrenal glands. There is a nonobstructing right-sided renal calculus measuring approximately 7.9 mm. The right-sided renal cyst measuring 1 cm. There is multifocal parenchymal also right kidney possibly secondary to previous infection or ischemia. Nonobstructing left-sided renal calculi measuring up to 7.4 mm. There are multiple renal cysts with the largest measuring 1.9 cm in size. There is no evidence of hydronephrosis, hydroureter or radiopaque renal calculus. Normal visualized stomach. There is no obvious dilated bowel, ascites or pneumoperitoneum. There is stool visible throughout the colon with scattered diverticula. The small bowel has a grossly normal appearance. The appendix is visualized and appears normal. Abdominal aorta and iliac arteries have mild multifocal atherosclerotic calcification. Normal inferior vena cava. Normal retroperitoneum. Normal urinary bladder. There are prostatic calcifications. Normal abdominal wall. The bones appear osteopenic. There is degenerative disc disease at L5-S1. CT/Abdomen/Pelvis W IV Cont ONLY IMPRESSION: 1. Cholelithiasis with dilated common bile duct. 2. Bilateral nonobstructing renal calculi and renal cysts. Electronically Signed: Nancy Roy MD at 8:04 EST , Service support ,
--- NOTE | 2021-09-01 06:14 | ED.VIS.GI ---
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) Context: Gradual Onset Timing: Continuous (not colicky) Quality: Aching Location: - (across upper abd, radiating a little into back) Current Severity: Moderate Maximum Severity: Moderate Worsened by: Nothing Relieved by: Nothing Nausea/Vomiting/Emesis GI Symptom: Positive for Nausea and Vomiting Onset: Today Quality: Positive for Nonbilious; Negative for Blood streaks, Coffee ground and Hematemesis Diarrhea/Melena/Hematochezia GI Symptom: Negative for Diarrhea, Melena and Hematochezia Associated Symptoms Associated Symptoms: Negative for Dysuria, Frequency, Hematuria and Urgency Narrative Narrative: Upper abdominal pain with nausea/vomiting that started tonight, 5 hours or so after eating [place] steak and mashed potatoes for dinner. Has never had this before. He had a pyloroplasty surgery for gastroparesis but still has his gallbladder and no history of other abdominal surgeries. No fevers or chills or thoracic symptoms. No syncope or near syncope. [facility] Medical History Atherosclerosis of coronary artery of [place] heart without angina pectoris Bipolar II disorder Cancer Cardiology follow-up encounter CVA (cerebral vascular accident) (2003) Depression Diabetes Diarrhea Elevated LFTs Essential hypertension Former smoker Gastric reflux Gastroparesis GERD (gastroesophageal reflux disease) Gout Hepatitis Hepatitis A History of echocardiogram History of stress test Hyperlipidemia Hypertension Insomnia Sleep apnea Squamous cell carcinoma TIA (transient ischemic attack) (2003) Type 2 diabetes mellitus without complication Wears glasses Home Medications aspirin 81 mg tablet,delayed release 81 mg PO DAILY 09/28/19 [History Last Taken 11/20/19] dorzolamide 22.3 mg-timolol 6.8 mg/mL eye drops 1 drp OPHTHALMIC BID 09/28/19 [History Last Taken Unknown] duloxetine 60 mg capsule,delayed release 60 mg PO DAILY cap 10/17/19 [History Last Taken Unknown] metformin 1,000 mg tablet 1,000 mg PO BID tab 10/17/19 [History Last Taken 11/18/19] amlodipine 10 mg tablet 10 mg PO DAILY #90 tab 05/14/20 [Rx Last Taken 05/22/21 07:00] rosuvastatin 40 mg tablet 40 mg PO DAILY tab 05/31/20 [History Last Taken Unknown] metoprolol tartrate 50 mg tablet 75 mg PO BID #270 tab 06/18/21 [Rx Last Taken Unknown] sucralfate 1 gram tablet 1 g PO .QID tab 07/02/21 [History Last Taken Unknown] hydrocodone-acetaminophen [[place]] 1 tab PO Q8H PRN 09/01/21 [History Last Taken Unknown] Allergy/AdvReac Type Severity Reaction Status Date / Time No Known Allergies Allergy Verified 09/01/21 06:05 Family History (Reviewed 07/02/21 @ 09:14 by Karla Lopez PROFESSOR OF RELIGIOUS STUDIES, PROFESSOR OF RELIGIOUS STUDIES-C) Father Colon cancer CAD (coronary artery disease) Mother Gastric ulcer Pacemaker Pulmonary fibrosis Heart disease Surgical History (Reviewed 07/02/21 @ 09:14 by Karla Lopez PROFESSOR OF RELIGIOUS STUDIES, PROFESSOR OF RELIGIOUS STUDIES-C) H/O coronary artery bypass surgery (12/15/19) History of cardiac catheterization History of cataract extraction History of colonoscopy (2016) History of esophagogastroduodenoscopy (EGD) History of left heart catheterization (11/20/19) History of tonsillectomy History of wisdom tooth extraction Social History Smoking Status: Former smoker ROS ROS ED Constitutional Constitutional ED: Denies chills or fever(s) Eyes Eyes: Denies change in vision or diplopia ENT ENT ED: Denies rhinorrhea or sore throat Cardiovascular Cardiovascular: Denies chest pain or palpitations Respiratory/Chest Respiratory/Chest: Denies cough or dyspnea Gastrointestinal Gastrointestinal: Reports as per HPI, abdominal pain, nausea and vomiting; Denies diarrhea Genitourinary Genitourinary ED: Denies dysuria or hematuria Musculoskeletal Musculoskeletal: Reports back pain; Denies neck pain Integumentary Denies abscess or rash Neurologic Neurologic: Denies headache(s), paresthesias or weakness Psychiatric Psychiatric: Denies anxiety or suicidal thoughts EXAM Physical Exam Const Vital Signs: 09/01/21 06:00 Temperature 97.8 F Temperature Source Oral Pulse Rate 57 L Respiratory Rate 16 Blood Pressure 158/108 H Blood Pressure Mean 124 Pulse Ox 96 Oxygen Delivery Method Room Air Positive well nourished and well developed General Appearance ED: well developed and NAD HEENT Reports moist mucous membranes normocephalic and atraumatic Eyes PERRL and EOMs intact bilaterally Neck full ROM and supple Resp normal respiratory effort and clear to auscultation bilaterally Cardio regular rate, regular rhythm and no murmurs GI non-distended GI Narrative: Moderately tender throughout upper abdomen including both upper quadrants and epigastrium. No pulsatile mass palpable. 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 Patient's vital signs were unremarkable, aside from a little hypertensive. At this time he is stable, will undergo CT scanning, labs along with medications for his symptoms and fluids. CT showing gallstones, dilated common bile duct, with his lipase elevated, this is consistent with gallstone pancreatitis. Patient still having discomfort, so he is given additional medications, discussed with surgery and medicine will admit to Medr floor. Lab Data Attestation: I reviewed the patient's lab results. Labs: Laboratory Results - last 24 hr 09/01/21 09/01/21 06:08 06:08 WBC 11.8 H RBC 4.68 Hgb 13.2 Hct 41.3 MCV 88.2 MCH 28.2 MCHC 32.0 RDW Std Deviation 42.5 RDW Coeff of Lidya 13.4 Plt Count 276 MPV 10.2 Immature Gran % (Auto) 0.400 Neut % (Auto) 80.1 H Lymph % (Auto) 10.3 L [place] % (Auto) 7.8 Eos % (Auto) 1.2 Baso % (Auto) 0.2 Absolute Neuts (auto) 9.4 H Absolute Lymphs (auto) 1.21 Nucleated RBC % 0 Sodium 139 Potassium 3.4 L Chloride 106 Carbon Dioxide 26.0 Anion Gap 7 BUN 21 H Creatinine 1.30 Estim Creat Clear Calc 53.35 Est GFR (MDRD) Af Amer 71 Est GFR (MDRD) Non-Af 58 L BUN/Creatinine Ratio 16.2 Glucose 236 H Calcium 9.6 Total Bilirubin 0.60 AST 25 ALT 26 Alkaline Phosphatase 185 H Total Protein 7.9 Albumin 3.6 Globulin 4.3 H Albumin/Globulin Ratio 0.8 L Lipase 1323 H Discharge Plan Triage Chief Complaint: Abd Pain ED Provider: Abundio Contreras Dx/Rx/DC Orders Clinical Impression: Acute gallstone pancreatitis Prescriptions: No Action dorzolamide-timolol [Cosopt] 22.3-6.8 mg/mL drops 1 drp OPHTHALMIC BID RF: 0 aspirin [Adult Low Dose Aspirin] 81 mg tablet,delayed release (DR/EC) 81 mg PO DAILY RF: 0 duloxetine 60 mg capsule,delayed release(DR/EC) 60 mg PO DAILY RF: 0 metformin 1,000 mg tablet 1,000 mg PO BID RF: 0 rosuvastatin 40 mg tablet 40 mg PO DAILY RF: 0 sucralfate 1 gram tablet 1 g PO .QID RF: 0 hydrocodone-acetaminophen [[place]] 5-325 mg Tablet 1 tab PO Q8H PRN (Reason: Pain) RF: 0 amlodipine 10 mg tablet 10 mg PO DAILY Qty: 90 RF: 4 metoprolol tartrate 50 mg tablet 75 mg PO BID Qty: 270 RF: 4 Primary Care Provider: Iván Case Referrals: Iván Case MD [Primary Care Provider] - Disposition Disposition: Acute Care [facility]
[2021-09-01 06:21] LABS: Absolute Lymphocyte Count 1.21 X10^3/uL (0.83-4.51); Absolute Neutrophil Count 9.4 X10^3/uL (2.0-7.7); Basophil# 0.02 X10^3/uL; Basophil% 0.2 % (0-1); Eosinophil# 0.14 X10^3/uL; Eosinophils% 1.2 % (0-5); Hematocrit 41.3 % (40-54); Hemoglobin 13.2 g/dL (13.0-16.5); Lymphocyte # 1.21 X10^3/ul (0.83-4.51); Lymphocyte % 10.3 % (19-41); Mean Corpuscular Hgb 28.2 pg (27.0-32.0); Mean Corpuscular Volume 88.2 fL (80-94); Mean Platelet Vol. 10.2 fl (6.2-12.0); Monocyte# 0.92 X10^3/uL; Monocyte% 7.8 % (0-10); NRBC Flagged by Analyzer 0 % (0-5); Neutrophil # 9.42 X10^3/uL (2.7-7.7); Neutrophil % 80.1 % (47-70); Platelet Count 276 K/mm3 (150-450); RBC Distribution Width CV 13.4 % (11.6-14.6); RBC Distribution Width SD 42.5 fl (35.1-43.9); Red Blood Count 4.68 M/mm3 (4.6-6.2); White Blood Count 11.8 K/mm3 (4.4-11.0)
[2021-09-01] MEDS: 0.9% Normal Saline 1,000 ML 250 ML IV (06:23)
[2021-09-01] MEDS: Ondansetron 4 MG/2 ML Vial IV ×2 (06:24→07:56)
[2021-09-01] MEDS: Morphine 4 MG/ML Syringe IV (06:24)
[2021-09-01 06:40] LABS: ALB/GLOB Ratio 0.8 RATIO (0.9-2.4); AST(SGOT) 25 U/L (15-37); Alanine Aminotransfer ALT/SGPT 26 U/L (16-61); Albumin, Serum 3.6 g/dL (3.2-5.0); Alkaline Phosphatase 185 U/L (45-117); Anion Gap 7 (5-15); BUN 21 mg/dL (7-18); BUN/Creat Ratio 16.2 RATIO (10-20); Calcium,Total 9.6 mg/dL (8.5-10.1); Chloride 106 mmol/L (98-107); EST Glomerular Filtration Rate 58 mL/min (>60); Est Glom Filt Rate - Afr Amer 71 mL/min (>60); Estimated Creatinine Clearance 53.35 ml/min; Globulin 4.3 g/dL (2.2-4.2); Glucose 236 mg/dL (74-106); Lipase 1323 U/L (73-393); Potassium 3.4 mmol/L (3.5-5.1); Protein, Total 7.9 g/dL (6.4-8.2); Sodium Level 139 mmol/L (136-145)
[2021-09-01] MEDS: HYDROmorphone 1 MG/ML Syringe IV ×4 (07:38→20:03)
--- NOTE | 2021-09-01 07:51 | US_ITS ---
EXAM: US ABDOMEN LIMITED, RIGHT UPPER QUADRANT CLINICAL INDICATION: gallstone pancreatitis TECHNIQUE: Real-time ultrasound of the right upper quadrant with image documentation. This report was created using [employer] report generation technology. COMPARISON: CT earlier today. FINDINGS: LIMITATIONS: Limited by bowel gas. LIVER: Unremarkable. There is normal echotexture. No focal hepatic lesion. No intrahepatic biliary ductal dilation. GALLBLADDER: Gallstones. No gallbladder wall thickening is demonstrated. No pericholecystic fluid. Negative sonographic Villanueva''s sign. COMMON BILE DUCT: Unremarkable as visualized. The proximal common bile duct is within normal limits for the patient''s age. PANCREAS: Unremarkable as visualized. No focal abnormality is demonstrated in the pancreas. No pancreatic ductal dilatation. RIGHT KIDNEY: Right renal cortical scarring and thinning. Small simple cysts of the inferior right kidney. No required imaging follow-up needed given high likelihood of benign nature. There is no hydronephrosis. No shadowing calculus. US/Gallbladder IMPRESSION: Gallstones. No obvious intrahepatic bile duct dilation. Electronically Signed: Eladio Lilly MD ([place]) at 12:00 EST , Service support ,
--- NOTE | 2021-09-01 09:09 | PCS.PANDOC ---
PANDEMIC DOCUMENTATION INITIATED: Date: 04/21/2021 Time: 190
--- NOTE | 2021-09-01 09:15 | HP.PCM.HOS_ITS ---
HPI - General General Date of Admission: 09/01/21 Date of Service: 09/01/21 Chief Complaint: Mid abdominal pain, nausea with vomiting HPI Narrative TERRI JUNE, is a 66 M who presents to the emergency room at [facility] with chief complaint of mid abdominal pain which radiates into the left mid back area accompanied with nausea and vomiting with very small amounts of liquid. This started approximately 1 AM this morning, he has never had any symptoms similar to this. Patient denies any chest pain. Work-up in the emergency room included labs which showed a slightly elevated white blood cell count at 11.8, potassium was slightly low at 3.4, BUN was 21, glucose was 236, alkaline phosphatase was slightly elevated at 185, and lipase was elevated at 1323. Patient had imaging studies done-CT of the abdomen and pelvis-which showed cholelithiasis with dilated common bile duct, there were also noted to be bilateral nonobstructing renal calculi and renal cysts. Patient was given antiemetics and narcotics in the emergency room, general surgery and gastroenterology were contacted and they will see the patient in consultation. General surgery did not feel the patient needed IV antibiotics at this time. [facility] Medical History Atherosclerosis of coronary artery of [place] heart without angina pectoris Bipolar II disorder Cancer Cardiology follow-up encounter CVA (cerebral vascular accident) (2003) Depression Diabetes Diarrhea Elevated LFTs Essential hypertension Former smoker Gastric reflux Gastroparesis GERD (gastroesophageal reflux disease) Gout Hepatitis Hepatitis A History of echocardiogram History of stress test Hyperlipidemia Hypertension Insomnia Sleep apnea Squamous cell carcinoma TIA (transient ischemic attack) (2003) Type 2 diabetes mellitus without complication Wears glasses Home Medications aspirin 81 mg tablet,delayed release 81 mg PO DAILY 09/28/19 [History Last Taken 11/20/19] dorzolamide 22.3 mg-timolol 6.8 mg/mL eye drops 1 drp OPHTHALMIC BID 09/28/19 [History Last Taken Unknown] duloxetine 60 mg capsule,delayed release 60 mg PO DAILY cap 10/17/19 [History Last Taken Unknown] metformin 1,000 mg tablet 1,000 mg PO BID tab 10/17/19 [History Last Taken 11/18/19] amlodipine 10 mg tablet 10 mg PO DAILY #90 tab 05/14/20 [Rx Last Taken 05/22/21 07:00] rosuvastatin 40 mg tablet 40 mg PO DAILY tab 05/31/20 [History Last Taken Unknown] metoprolol tartrate 50 mg tablet 75 mg PO BID #270 tab 06/18/21 [Rx Last Taken Unknown] sucralfate 1 gram tablet 1 g PO .QID tab 07/02/21 [History Last Taken Unknown] hydrocodone-acetaminophen [[place]] 1 tab PO Q8H PRN 09/01/21 [History Last Taken Unknown] Allergy/AdvReac Type Severity Reaction Status Date / Time No Known Allergies Allergy Verified 09/01/21 06:05 Family History (Reviewed 07/02/21 @ 09:14 by Karla Lopez [employer] SUPERVISOR, P[employer]UL[employer] SUPERVISOR-C) Father Colon cancer CAD (coronary artery disease) Mother Gastric ulcer Pacemaker Pulmonary fibrosis Heart disease Surgical History H/O coronary artery bypass surgery (12/15/19) History of cardiac catheterization History of cataract extraction History of colonoscopy (2016) History of esophagogastroduodenoscopy (EGD) History of left heart catheterization (11/20/19) History of tonsillectomy History of wisdom tooth extraction Social History Smoking Status: Former smoker ROS Constitutional Constitutional: Denies anorexia, change in weight, fever(s), night sweats or weakness Eyes Eyes: Denies blurry vision, change in vision, discharge from eye(s) or eye pain ENT HEENT: Denies abnormal hearing, ear pain or headache(s) Cardiovascular Cardiovascular: Denies chest pain, claudication, dyspnea on exertion, edema, lightheadedness or palpitations Respiratory/Chest Respiratory/Chest: Denies cough, hemoptysis, shortness of breath at rest or shortness of breath with exertion Gastrointestinal Gastrointestinal: Reports abdominal pain, nausea and vomiting; Denies constipation, diarrhea, hematemesis, hematochezia or melena Genitourinary Genitourinary: Denies dysuria, hematuria, urinary frequency, urinary hesitancy, urinary incontinence or urinary urgency Musculoskeletal Musculoskeletal: Denies back pain, joint pain, joint stiffness, joint swelling, myalgias or neck pain Neurologic Neurologic: Denies abnormal gait, abnormal speech, dizziness, focal weakness, headache(s), loss of vision, numbness, other visual disturbances, paresthesias, syncope or tingling Psychiatric Psychiatric: Denies anxiety, cognitive impairment, depression, irritability, mood swings or suicidal ideation Endocrine Endocrinology: Denies change in body appearance, cold intolerance, excessive sweating, heat intolerance, polydipsia or polyuria Hematologic/Lymphatic Hematologic/Lymphatic: Denies none, anemia, easy bleeding, easy bruising or lymphadenopathy Allergic/Immunologic Allergic/Immunologic: Denies rhinitis, urticaria, eczemia or asthma Vital Signs Vital Signs Vital Signs: 09/01/21 06:00 09/01/21 07:56 Temperature 97.8 F 96.8 F L Temperature Source Oral Temporal Pulse Rate 57 L 96 Respiratory Rate 16 16 Blood Pressure 158/108 H 171/90 H Blood Pressure Mean 124 117 Pulse Ox 96 96 Oxygen Delivery Method Room Air Room Air Weight Weight: 77.522 kg Body Mass Index (BMI) 25.9 Physical Exam Const alert, oriented x3 and healthy appearing General Appearance: cooperative, well kempt and well developed Orientation / Consciousness: awake, oriented to person, oriented to place and oriented to time HEENT normocephalic, head/scalp atraumatic, hearing grossly normal bilaterally and moist oral mucous membranes Eyes PERRL, EOMs intact bilaterally and conjunctivae normal Neck nuchal rigidity, supple, no JVD, thyroid normal and no carotid bruits General: trachea midline Resp normal respiratory effort, no retractions, no use of accessory muscles and clear to auscultation bilaterally Auscultation: Negative for rales, rhonchi or wheezes Cardio regular rate, regular rhythm, S1 normal heart sound, S2 normal heart sound, no murmurs, no rub and no gallops GI normal to inspection, nondistended, normoactive bowel sounds, soft to palpation and non-distended GI Narrative: Generalized mid abdominal tenderness is noted on palpation, there is no rebound abdominal tenderness noted. Extremity no clubbing, cyanosis or edema Skin no rashes or lesions noted General Skin Exam: no breakdown Neuro oriented x3, CN's II-XII intact bilaterally, no focal motor deficits and no sensory deficits noted Sensorium / Orientation: awake and alert Speech: speech normal Psych thought process normal and affect normal Results Lab / Micro Data Result Diagrams: 09/01/21 06:08 09/01/21 06:08 Labs: Laboratory Results - last 24 hr 09/01/21 06:08: WBC 11.8 H, RBC 4.68, Hgb 13.2, Hct 41.3, MCV 88.2, MCH 28.2, MCHC 32.0, RDW Std Deviation 42.5, RDW Coeff of Lidya 13.4, Plt Count 276, MPV 10.2, Immature Gran % (Auto) 0.400, Neut % (Auto) 80.1 H, Lymph % (Auto) 10.3 L, [place] % (Auto) 7.8, Eos % (Auto) 1.2, Baso % (Auto) 0.2, Absolute Neuts (auto) 9.4 H, Absolute Lymphs (auto) 1.21, Nucleated RBC % 0 09/01/21 06:08: Sodium 139, Potassium 3.4 L, Chloride 106, Carbon Dioxide 26.0, Anion Gap 7, BUN 21 H, Creatinine 1.30, Estim Creat Clear Calc 53.35, Est GFR (MDRD) Af Amer 71, Est GFR (MDRD) Non-Af 58 L, BUN/Creatinine Ratio 16.2, Glucose 236 H, Calcium 9.6, Total Bilirubin 0.60, AST 25, ALT 26, Alkaline Phosphatase 185 H, Total Protein 7.9, Albumin 3.6, Globulin 4.3 H, Albumin/Globulin Ratio 0.8 L, Lipase 1323 H Radiology Impression Abdomen/Pelvis CT 09/01/21 06:13 IMPRESSION: 1. Cholelithiasis with dilated common bile duct. 2. Bilateral nonobstructing renal calculi and renal cysts. Electronically Signed: Nancy Roy MD at 8:04 EST , Service support , Assessment & Plan Assessment/Plan (1) Acute gallstone pancreatitis: PLAN: 1. Acute gallstone pancreatitis-patient will be admitted to [facility], he will be given IV fluids, he will be kept n.p.o. at this time, he will be seen by general surgery and gastroenterology. Patient will be given antiemetics and IV pain medications as needed. Patient's home medications will be continued #2 cholelithiasis #3 coronary artery disease-patient stated he had a bypass performed 2019-this appears to be stable at this time #4 essential hypertension #5 hyperlipidemia #6 hypokalemia-mild, labs will be monitored #7 chronic depression #8 cerebrovascular disease by history Charges/Coding Visit Charges Inpatient E&M: 77761 Init Hosp L3
[2021-09-01] MEDS: proCHLORPERazine 10 MG/2 ML Vial IV (10:56)
[2021-09-01] MEDS: 0.9% Saline Lock 10 ML Syringe IV ×2 (10:57→14:44)
[2021-09-01] MEDS: 0.9% Normal Saline 1,000 ML 175 ML IV ×3 (10:57→23:01)
[2021-09-01] MEDS: Potassium Chloride 10mEq/100mL 10 MEQ/100 ML IV.SOLN. 100 MEQ IV BOLUS ×2 (11:07→12:12)
[2021-09-01] MEDS: Metoprolol Tartrate 25 MG Tablet 75 MG PO ×2 (12:10→20:05)
[2021-09-01] MEDS: Dorzolamide HCL/Timolol 10 ml Bottle 1 DRP OPHTHALMIC ×2 (12:11→20:08)
[2021-09-01] MEDS: DULoxetine Hcl 60 MG Capsule PO (12:11)
[2021-09-01] MEDS: amLODIPine 10 MG Tablet PO (12:11)
[2021-09-01 12:20] LABS: Bedside Glucose 217 mg/dL (70-110)
[2021-09-01] MEDS: Insulin Lispro 100 UNIT/ML INSULN.PEN SC ×3 (12:20→23:04)
[2021-09-01 16:55] LABS: Bedside Glucose 204 mg/dL (70-110)
--- NOTE | 2021-09-01 18:39 | CON.PCM.GI_ITS ---
HPI Consult Data Date of Consult: 09/01/21 HPI Narrative HPI Narrative: TERRI JUNE, is a 66-year-old man With a history of hypertension and recently diagnosed triple-vessel disease for which he was sent for and underwent coronary artery bypass surgery in December 2019. His repeat echocardiogram demonstrated an ejection fraction of 60% with stage I diastolic dysfunction. He presented to the ED with mid abdominal pain Which woke him Out of a sleep at 1 AM this morning, he has never had any symptoms similar to this. Patient denies any chest pain.He did have a couple episodes of nausea vomiting which prompted him to come to the ED. His biochemical work-up did show mildly elevated white blood cell count 11.8 and a lipase of 1323. He had a CT scan abdomen pelvis which showed multiple stones in the gallbladder with a dilated common bile duct. At this time he does not have any abdominal pain. He has been on IV fluids and been n.p.o. [facility] Medical History (Updated 09/01/21 @ 18:[address] Calle Friend, DO) Atherosclerosis of coronary artery of [place] heart without angina pectoris Bipolar II disorder Cancer Cardiology follow-up encounter CVA (cerebral vascular accident) (2003) Depression Diabetes Diarrhea Elevated LFTs Essential hypertension Former smoker Gastric reflux Gastroparesis GERD (gastroesophageal reflux disease) Gout Hepatitis Hepatitis A History of echocardiogram History of stress test Hyperlipidemia Hypertension Insomnia Irregular heartbeat Irritable bowel Sleep apnea Squamous cell carcinoma Syncope TIA (transient ischemic attack) (2003) Type 2 diabetes mellitus without complication Wears glasses Home Medications aspirin 81 mg tablet,delayed release 81 mg PO DAILY 09/28/19 [History Last Taken 11/20/19] dorzolamide 22.3 mg-timolol 6.8 mg/mL eye drops 1 drp OPHTHALMIC BID 09/28/19 [History Last Taken Unknown] duloxetine 60 mg capsule,delayed release 60 mg PO DAILY cap 10/17/19 [History Last Taken Unknown] metformin 1,000 mg tablet 1,000 mg PO BID tab 10/17/19 [History Last Taken 11/18/19] amlodipine 10 mg tablet 10 mg PO DAILY #90 tab 05/14/20 [Rx Last Taken 05/22/21 07:00] rosuvastatin 40 mg tablet 40 mg PO DAILY tab 05/31/20 [History Last Taken Unknown] metoprolol tartrate 50 mg tablet 75 mg PO BID #270 tab 06/18/21 [Rx Last Taken Unknown] sucralfate 1 gram tablet 1 g PO .QID tab 07/02/21 [History Last Taken Unknown] hydrocodone-acetaminophen [[place]] 1 tab PO Q8H PRN 09/01/21 [History Last Taken Unknown] Allergy/AdvReac Type Severity Reaction Status Date / Time No Known Allergies Allergy Verified 09/01/21 06:05 Family History Father Colon cancer CAD (coronary artery disease) Mother Gastric ulcer Pacemaker Pulmonary fibrosis Heart disease Surgical History H/O coronary artery bypass surgery (12/15/19) History of cardiac catheterization History of cataract extraction History of colonoscopy (2016) History of esophagogastroduodenoscopy (EGD) History of left heart catheterization (11/20/19) History of tonsillectomy History of wisdom tooth extraction Social History Smoking Status: Former smoker ROS Review of Systems ROS Unobtainable: other Constitutional Constitutional: Denies fatigue, fever(s), poor appetite, weight gain or weight loss ENT HEENT: Denies mouth lesions Respiratory/Chest Respiratory/Chest: Denies change in mental status, change in phlegm color, chest congestion or chest tightness Gastrointestinal Gastrointestinal: Reports bloating and cramping Genitourinary Genitourinary: Denies abdominal discomfort, burning urination or itching Musculoskeletal Musculoskeletal: Reports as per HPI; Denies muscle weakness or myalgias Integumentary Integumentary: Denies jaundice Neurologic Neurologic: Denies lack of coordination or weakness Psychiatric Psychiatric: Denies confusion, depression, memory loss, mood swings, paranoia or suicidal ideation Endocrine Endocrinology: Denies systems reviewed and no addt'l complaints, except as documented Hematologic/Lymphatic Hematologic/Lymphatic: Denies anemia, easy bleeding, easy bruising or lymphadenopathy Allergic/Immunologic Allergic/Immunologic: Denies systems reviewed and no addt'l complaints, except as documented Physical Exam Const alert General Appearance: cooperative Orientation / Consciousness: oriented to person HEENT hearing grossly normal bilaterally Head and Scalp: normal to inspection Face and Sinus: face symmetric Nose: external nose normal Mouth: oral and palatal mucosa normal Eyes conjunctivae normal General Eye: normal appearance of both eyes Neck full ROM General: normal visual inspection Lymph Lymphatic: no lymphadenopathy noted Chest inspection of chest normal and palpation of chest normal Chest: symmetrical chest wall rise Resp normal respiratory effort Effort and Inspection: able to speak in complete sentences Cardio regular rate GI non-distended Percussion: normal to percussion Rectal Exam: deferred Neuro Speech: speech normal Gait (Neuro): normal gait Lab / Micro Data Result Diagrams: 09/01/21 06:08 09/01/21 06:08 Labs: Laboratory Results - last 24 hr 09/01/21 06:08: WBC 11.8 H, RBC 4.68, Hgb 13.2, Hct 41.3, MCV 88.2, MCH 28.2, MCHC 32.0, RDW Std Deviation 42.5, RDW Coeff of Lidya 13.4, Plt Count 276, MPV 10.2, Immature Gran % (Auto) 0.400, Neut % (Auto) 80.1 H, Lymph % (Auto) 10.3 L, [place] % (Auto) 7.8, Eos % (Auto) 1.2, Baso % (Auto) 0.2, Absolute Neuts (auto) 9.4 H, Absolute Lymphs (auto) 1.21, Nucleated RBC % 0 09/01/21 06:08: Sodium 139, Potassium 3.4 L, Chloride 106, Carbon Dioxide 26.0, Anion Gap 7, BUN 21 H, Creatinine 1.30, Estim Creat Clear Calc 53.35, Est GFR (MDRD) Af Amer 71, Est GFR (MDRD) Non-Af 58 L, BUN/Creatinine Ratio 16.2, Glucose 236 H, Calcium 9.6, Total Bilirubin 0.60, AST 25, ALT 26, Alkaline Phosphatase 185 H, Total Protein 7.9, Albumin 3.6, Globulin 4.3 H, Albumin/Globulin Ratio 0.8 L, Lipase 1323 H 09/01/21 12:08: POC Glucose 217 H 09/01/21 16:45: POC Glucose 204 H Radiology Impression Abdomen/Pelvis CT 09/01/21 06:13 IMPRESSION: 1. Cholelithiasis with dilated common bile duct. 2. Bilateral nonobstructing renal calculi and renal cysts. Electronically Signed: Nancy Roy MD at 8:04 EST , Service support , Gallbladder Ultrasound 09/01/21 07:51 IMPRESSION: Gallstones. No obvious intrahepatic bile duct dilation. Electronically Signed: Eladio Lilly MD ([place]) at 12:00 EST , Service support , Assessment & Plan Assessment/Plan (1) Acute gallstone pancreatitis: PLAN: He has multiple stones in his gallbladder in the setting of a diet related, bile duct. He does not drink any alcohol. He have to assume that he had choledocholithiasis which led to acute gallstone pancreatitis. At this time he is on appropriate IV fluids and he is not have any pain. He is scheduled to have a cholecystectomy tomorrow. I talk with Dr. Winchester and if his cholangiogr am is abnormal Then he will need ERCP. (2) Common bile duct dilatation: PLAN: No clear filling defect was seen on imaging. He could still have a stone in his common bile duct. At this time only his alkaline phosphatase is elevated. We will continue to monitor. Thank you very much for allowing me to participate in the care of this patient. Charges/Coding Visit Charges Inpatient E&M: 66530 Init Hosp L3
--- NOTE | 2021-09-01 18:50 | EX.PCM.CON.S ---
Assessment & Plan Assessment/Plan (1) Acute gallstone pancreatitis: PLAN: The plan is perform a laparoscopic cholecystectomy with intraoperative cholangiograms tomorrow. This will be done providing that his pain is improved and his lipase is trending down. I have counseled the patient as to the risks of the procedure, including but not limited to: infection, bleeding, injury to any blood vessels/nerves, injury to any bowel/bladder, injury to any intraabdominal organs such as the liver/spleen, perforation of the GI tract, intraabdominal abscess/bleeding, incisional hernias, injury to the common bile duct/biliary ducts, injury to the spermatic cord/vessels/testicles, recurrence of hernia(s), complications of anesthesia, etc. The patient verbalizes understanding. If the intraoperative cholangiogram shows that there are stones in the duct he will need to get an ERCP. I have spoken to Dr. Yarbrough who agrees. HPI Consult Data Date of Consult: 09/01/21 HPI Narrative HPI Narrative: TERRI JUNE, is a 66 M who presents to the emergency room at [facility] with chief complaint of mid abdominal pain which radiates into the left mid back area accompanied with nausea and vomiting with very small amounts of liquid. This started approximately 1 AM this morning, he has never had any symptoms similar to this. Patient denies any chest pain. Work-up in the emergency room included labs which showed a slightly elevated white blood cell count at 11.8, potassium was slightly low at 3.4, BUN was 21, glucose was 236, alkaline phosphatase was slightly elevated at 185, and lipase was elevated at 1323. Patient had imaging studies done-CT of the abdomen and pelvis-which showed cholelithiasis with dilated common bile duct, there were also noted to be bilateral nonobstructing renal calculi and renal cysts. [facility] Medical History Atherosclerosis of coronary artery of [place] heart without angina pectoris Bipolar II disorder Cancer Cardiology follow-up encounter CVA (cerebral vascular accident) (2003) Depression Diabetes Diarrhea Elevated LFTs Essential hypertension Former smoker Gastric reflux Gastroparesis GERD (gastroesophageal reflux disease) Gout Hepatitis Hepatitis A History of echocardiogram History of stress test Hyperlipidemia Hypertension Insomnia Irregular heartbeat Irritable bowel Sleep apnea Squamous cell carcinoma Syncope TIA (transient ischemic attack) (2003) Type 2 diabetes mellitus without complication Wears glasses Home Medications aspirin 81 mg tablet,delayed release 81 mg PO DAILY 09/28/19 [History Last Taken 11/20/19] dorzolamide 22.3 mg-timolol 6.8 mg/mL eye drops 1 drp OPHTHALMIC BID 09/28/19 [History Last Taken Unknown] duloxetine 60 mg capsule,delayed release 60 mg PO DAILY cap 10/17/19 [History Last Taken Unknown] metformin 1,000 mg tablet 1,000 mg PO BID tab 10/17/19 [History Last Taken 11/18/19] amlodipine 10 mg tablet 10 mg PO DAILY #90 tab 05/14/20 [Rx Last Taken 05/22/21 07:00] rosuvastatin 40 mg tablet 40 mg PO DAILY tab 05/31/20 [History Last Taken Unknown] metoprolol tartrate 50 mg tablet 75 mg PO BID #270 tab 06/18/21 [Rx Last Taken Unknown] sucralfate 1 gram tablet 1 g PO .QID tab 07/02/21 [History Last Taken Unknown] hydrocodone-acetaminophen [[place]] 1 tab PO Q8H PRN 09/01/21 [History Last Taken Unknown] Allergy/AdvReac Type Severity Reaction Status Date / Time No Known Allergies Allergy Verified 09/01/21 06:05 Family History Father Colon cancer CAD (coronary artery disease) Mother Gastric ulcer Pacemaker Pulmonary fibrosis Heart disease Surgical History H/O coronary artery bypass surgery (12/15/19) History of cardiac catheterization History of cataract extraction History of colonoscopy (2016) History of esophagogastroduodenoscopy (EGD) History of left heart catheterization (11/20/19) History of tonsillectomy History of wisdom tooth extraction Social History Smoking Status: Former smoker ROS Constitutional Constitutional: Denies anorexia, chills, fatigue or fever(s) Cardiovascular Cardiovascular: Denies chest pain Respiratory/Chest Respiratory/Chest: Denies cough, dyspnea or productive cough Gastrointestinal Gastrointestinal: Reports abdominal pain; Denies bloating, diarrhea, nausea or vomiting Genitourinary Genitourinary: Denies change in urinary stream Physical Exam Const alert, oriented x3 and no apparent distress General Appearance: cooperative HEENT normocephalic and head/scalp atraumatic Eyes PERRL and EOMs intact bilaterally Resp clear to auscultation bilaterally Cardio Rate: regular rate Rhythm: regular rhythm GI soft to palpation, non-tender and non-distended Lab / Micro Data Result Diagrams: 09/01/21 06:08 09/01/21 06:08 Labs: Laboratory Results - last 24 hr 09/01/21 06:08: WBC 11.8 H, RBC 4.68, Hgb 13.2, Hct 41.3, MCV 88.2, MCH 28.2, MCHC 32.0, RDW Std Deviation 42.5, RDW Coeff of Lidya 13.4, Plt Count 276, MPV 10.2, Immature Gran % (Auto) 0.400, Neut % (Auto) 80.1 H, Lymph % (Auto) 10.3 L, [place] % (Auto) 7.8, Eos % (Auto) 1.2, Baso % (Auto) 0.2, Absolute Neuts (auto) 9.4 H, Absolute Lymphs (auto) 1.21, Nucleated RBC % 0 09/01/21 06:08: Sodium 139, Potassium 3.4 L, Chloride 106, Carbon Dioxide 26.0, Anion Gap 7, BUN 21 H, Creatinine 1.30, Estim Creat Clear Calc 53.35, Est GFR (MDRD) Af Amer 71, Est GFR (MDRD) Non-Af 58 L, BUN/Creatinine Ratio 16.2, Glucose 236 H, Calcium 9.6, Total Bilirubin 0.60, AST 25, ALT 26, Alkaline Phosphatase 185 H, Total Protein 7.9, Albumin 3.6, Globulin 4.3 H, Albumin/Globulin Ratio 0.8 L, Lipase 1323 H 09/01/21 12:08: POC Glucose 217 H 09/01/21 16:45: POC Glucose 204 H Radiology Impression Abdomen/Pelvis CT 09/01/21 06:13 IMPRESSION: 1. Cholelithiasis with dilated common bile duct. 2. Bilateral nonobstructing renal calculi and renal cysts. Electronically Signed: Nancy Roy MD at 8:04 EST , Service support , Gallbladder Ultrasound 09/01/21 07:51 IMPRESSION: Gallstones. No obvious intrahepatic bile duct dilation. Electronically Signed: Eladio Lilly MD ([place]) at 12:00 EST , Service support ,
[2021-09-01] MEDS: Atorvastatin Calcium 80 MG Tablet PO (20:04)
[2021-09-02] VITALS (18 sets, daily range): BP systolic 90–149; BP diastolic 47–81; PULSE 63–119; RESP 16–20; TEMP 35.8–37.3; O2SAT 94–100; BMI 25.9
[2021-09-02 00:16] LABS: Bedside Glucose 172 mg/dL (70-110)
[2021-09-02] MEDS: HYDROmorphone 1 MG/ML Syringe IV (03:02)
[2021-09-02] MEDS: 0.9% Normal Saline 1,000 ML 175 ML IV ×2 (03:45→21:53)
--- NOTE | 2021-09-02 04:54 | NURSING ---
Pulmonary services in to complete EKG.
--- NOTE | 2021-09-02 05:55 | EKG12_ITS ---
Test Reason : PRE-OP Blood Pressure : / mmHG Vent. Rate : 109 BPM Atrial Rate : 109 BPM P-R Int : 140 ms QRS Dur : 082 ms QT Int : 388 ms P-R-T Axes : 013 045 -20 degrees QTc Int : 522 ms Sinus tachycardia Septal infarct , age undetermined Abnormal ECG When compared with ECG of 12-OCT-2019 13:59, Vent. rate has increased BY 50 BPM Non-specific change in ST segment in Lateral leads Inverted T waves have replaced nonspecific T wave abnormality in Inferior leads QT has lengthened Confirmed by EVER STAHL, ANNA ([id number]), newspaper photo editor GREYSON OSPINA ([id number]) on 09/03/2021 9:38:38 AM Referred By: CLAUDIO Confirmed By:ANNA CURTIS MD
[2021-09-02] MEDS: Insulin Lispro 100 UNIT/ML INSULN.PEN SC ×2 (06:29→21:49)
[2021-09-02 06:36] LABS: Bedside Glucose 179 mg/dL (70-110)
[2021-09-02 06:46] LABS: Absolute Lymphocyte Count 0.45 X10^3/uL (0.83-4.51); Absolute Neutrophil Count 15.6 X10^3/uL (2.0-7.7); Basophil# 0.02 X10^3/uL; Basophil% 0.1 % (0-1); Hematocrit 37.9 % (40-54); Hemoglobin 12.6 g/dL (13.0-16.5); Lymphocyte # 0.45 X10^3/ul (0.83-4.51); Lymphocyte % 2.4 % (19-41); Mean Corp Hgb Conc 33.2 g/dL (32-36); Mean Corpuscular Hgb 29.2 pg (27.0-32.0); Mean Corpuscular Volume 87.7 fL (80-94); Mean Platelet Vol. 10.1 fl (6.2-12.0); Monocyte# 2.22 X10^3/uL; NRBC Flagged by Analyzer 0 % (0-5); Neutrophil # 15.61 X10^3/uL (2.7-7.7); Neutrophil % 84.7 % (47-70); POSITIVE DIFFERENTIAL YES; Platelet Count 232 K/mm3 (150-450); RBC Distribution Width CV 13.8 % (11.6-14.6); RBC Distribution Width SD 43.1 fl (35.1-43.9); Red Blood Count 4.32 M/mm3 (4.6-6.2); White Blood Count 18.5 K/mm3 (4.4-11.0)
[2021-09-02 06:47] LABS: Differential Indicated SCAN CRITERIA MET
[2021-09-02 07:16] LABS: ALB/GLOB Ratio 0.8 RATIO (0.9-2.4); AST(SGOT) 20 U/L (15-37); Alanine Aminotransfer ALT/SGPT 26 U/L (16-61); Alkaline Phosphatase 148 U/L (45-117); Anion Gap 8 (5-15); BUN 14 mg/dL (7-18); BUN/Creat Ratio 12.3 RATIO (10-20); Calcium,Total 8.7 mg/dL (8.5-10.1); Chloride 114 mmol/L (98-107); Creatinine, Serum 1.14 mg/dL (0.70-1.30); EST Glomerular Filtration Rate 68 mL/min (>60); Est Glom Filt Rate - Afr Amer 82 mL/min (>60); Estimated Creatinine Clearance 60.83 ml/min; Globulin 3.9 g/dL (2.2-4.2); Glucose 181 mg/dL (74-106); Potassium 2.9 mmol/L (3.5-5.1); Protein, Total 6.9 g/dL (6.4-8.2); Sodium Level 143 mmol/L (136-145)
[2021-09-02 07:42] LABS: Hemoglobin A1c 6.1 % (3.8-5.6)
--- NOTE | 2021-09-02 08:00 | GALL_PTH ---
PATIENT: TERRI JUNE Jr. LOC: MS3 U#:[id number] AGE/SX: 66/M ROOM: ME315 RE09/01/[address]: Dr. Ashok Mujica DO : 1955 BED: 1 DIS: 09/04/2021 SPEC #: [id number] RECD: 09/02/21 14:16 STATUS: CHAVEZ REIta #: [id number] KEYONA: 09/02/21 08:[address]: Michael Winchester DEPT: SURGICAL PATHOLOGY RECD BY: Agueda Pierre ENTERED: 09/03/21 12:10 SP TYPE: GALLBLADDE OTHR DR: MD Dr. Iván Levy MD Dr. Mark Tereletsky, Tissues: Gallbladder, NOS Procedures: Surgery Specimen Level III Comments: @ Ordering doctor for SUIII edited from to DR.DPEABO Noe RODRIGUEZ at 09/03/21 142 @ Submitting doctor edited from to DR.DPEABO Liu by MICHAEL at 09/03/21 142 HEADER OPERATION: Laparoscopic cholecystectomy with IOC PRE-OP DIAGNOSIS: Acute cholecystitis TISSUE SUBMITTED: Gallbladder MICROSCOPIC DIAGNOSIS Gallbladder, cholecystectomy: Acute and chronic hemorrhagic and ulcerated cholecystitis and cholelithiasis. Reactive epithelial changes. BLAIR:herb 09/04/2021 MICROSCOPIC DESCRIPTION Slides are reviewed. GROSS DESCRIPTION Received is one container labeled with the patient's name and designated gallbladder. The specimen consists of a gallbladder measuring 9.5 cm in length and up to 3.5 cm in diameter. The serosa is congested. The external surface is pink-manuel, smooth and glistening for the most part. Focally it is granular, hemorrhagic and contains cautery artifact. The gallbladder contains hemorrhagic mucoid bile and multiple greenish stones and stone fragments measuring in aggregate 5.5 x 5 x 0.5 cm and 1 to 1.5 cm in greatest dimension. The mucosa is congested and hemorrhagic. The gallbladder wall measures up to 1 cm in thickness. Increased amount of subserosal fat is noted. Interior Wall Assembler sections from the gallbladder and the cystic duct are submitted in two cassettes. / BLAIR:herb 09/03/21 TC:2 CPT: 35090
[2021-09-02] MEDS: Potassium Chloride Oral Tablet 20 MEQ 60 MEQ PO (08:03)
[2021-09-02] MEDS: amLODIPine 10 MG Tablet PO (08:03)
[2021-09-02] MEDS: Ondansetron 4 MG/2 ML Vial IV (08:03)
[2021-09-02] MEDS: DULoxetine Hcl 60 MG Capsule PO (08:03)
[2021-09-02] MEDS: 0.9% Saline Lock 10 ML Syringe IV (08:03)
[2021-09-02] MEDS: Metoprolol Tartrate 25 MG Tablet 75 MG PO ×2 (08:03→21:45)
[2021-09-02] MEDS: Dorzolamide HCL/Timolol 10 ml Bottle 1 DRP OPHTHALMIC ×2 (08:04→21:46)
[2021-09-02 08:10] LABS: Lipase 51 U/L (73-393)
[2021-09-02] MEDS: Potassium Chloride 10mEq/100mL 10 MEQ/100 ML IV.SOLN. 100 MEQ IV BOLUS ×2 (09:08→10:41)
[2021-09-02] MEDS: 0.9% Normal Saline 1,000 ML 15 ML IV ×2 (11:00→13:05)
--- NOTE | 2021-09-02 11:01 | RAD_ITS ---
INDICATION: LAP ALEX -- acute cholecystitis -- hepatic duct leak EXAMINATION/TECHNIQUE: Limited spot intraoperative films are presented for evaluation. Total Fluoroscopic Time: 16.1 seconds Number of Fluoroscopic Images: 3 Radiation dosage : 8.21 mGy COMPARISON: 09/01/2021. FINDINGS: Spot fluoroscopic images obtained demonstrate contrast injection into the cystic duct, unremarkable opacification of the cystic duct is visualized, opacification of the internal and extrahepatic ducts. Extra biliary opacification is visualized at the hilum of the liver. No evidence of opacification visualized into the duodenum. RAD/Cholangiogram/ O R,Initial IMPRESSION: Extra biliary opacification is visualized at the hilum of the liver. No evidence of opacification visualized into the duodenum. Please refer to operative report for details. Electronically Signed: Terry Victoria MD at 14:14 EST Tel , Service support ,
--- NOTE | 2021-09-02 11:02 | CASEMGMT ---
Addendum entered by Jeanie Arana 09/02/21 14:23: Pt remains off of floor at this time. Original Note: RN CM in to pt room to complete assessment, pt is off floor at this time. RN CM to check back.
[2021-09-02] MEDS: Bupivacaine Mpf 0.5% 30 ML VIAL (11:22)
--- NOTE | 2021-09-02 12:52 | PCM.OPRPT ---
Problems Associated Problem List Diagnoses (1) Acute gallstone pancreatitis: (2) Acute cholecystitis due to biliary calculus: Report of Operation Date of Procedure: 09/02/21 Pre-Operative Diagnosis: 1. Gallstone pancreatitis Post-Operative Diagnosis: The same with acute cholecystitis Surgery/Procedure Performed:: Laparoscopic cholecystectomy with intraoperative cholangiograms Surgeon: Michael Winchester product marketing specialist: Siva Dangelo Type of Anesthesia: General Anesthesiologist: Ezequiel Quezada Specimen's removed: Gallbladder Drains: 15 round Claudio-Senior Estimated Blood Loss (mL): 50 cc Description of Procedure: Patient was brought into the operating room. Placed in the supine position. Under excellent general endotracheal ovation the abdomen was sterilely prepped and draped in usual fashion. Local was injected infraumbilically dissection was carried down to the fascia the fascia grasped with a Yanni varies needle was placed inside the abdomen the abdomen was insufflated to 15 torr. A 10/12 trocar was placed without difficulty. Patient was placed in the head up and rotated to the left position. A subxiphoid #5 trocar was placed, inferior to this another #5 trocar was placed, laterally a #5 trocar was placed. All these were placed under direct visualization without injury to underlying structures. Patient's omentum was densely adherent to the gallbladder itself it came down with some blunt dissection revealing an acute thickened gallbladder. I placed an aspirator in the gallbladder and aspirated out the fluid I sent this for culture and sensitivity. Penetrating grasper was used to grab the fundus of the gallbladder and retracted in the cephalad direction. I started to dissect on the gallbladder itself coming down to what I thought was the cystic duct. Things were very adherent here I got into a branch which I thought was the cystic artery. I placed 2 hemolock clips but I did not cut anything and it was clear that the anatomy was just not normal here at this point I decided that it would be best if I did a dome down approach to taking the gallbladder out. I was able to do the dome down approach using electrocautery for good pneumostasis and I came down to the area of what I thought was the cystic duct and as I dissected it free it became very apparent that the 2 clips that I put on earlier were actually on the hepatic duct. I was able to remove these without difficulty and no further bleeding was identified. I dissected free the cystic duct made a renaldo in the duct place an angiogram catheter through the skin and a cholangiogram catheter through this and shot a cholangiogram. It was very clear that the cholangiogram showed that there was leaking from the hepatic duct. I inspected the area and saw small hole on the anterior aspect of it but I did not do any dissection in this area to further delineate this. I thought that it would be best that we treat this with doing an ERCP and stenting since the duct itself was not cut. I removed the cholangiogram catheter placed another Hemoclip on the cystic duct. Placed 2 hemoclips on the cystic artery and the posterior branch of the cystic artery and remove the gallbladder from the liver bed with electrocautery. I placed in a specimen bag and delivered through the umbilical port without difficulty. I reinflated the abdomen irrigated I had oozing from the liver I used the argon beam youth care professional to get this controlled. Once this was controlled I placed Jhon on the liver bed since it looked raw and I placed a 15 round Claudio-Senior drain through the lateral trocar. I sutured it to the skin with a 3-0 nylon. Irrigation was retrieved. Trochars were removed under direct visualization good with stasis was noted. Fascia the umbilical port was closed with a [id number]-hrbbz stitch of 0 Vicryl. Skin incisions were closed with subcuticular stitches of 4-0 Monocryl. Steri-Strips were applied sterile dressings were applied and the patient tolerated the procedure well. Postoperatively I found Dr. Yarbrough the rn bone marrow transplant informed him of what had happened he said that he was going to do an ERCP on him and stent placement today. I proceeded to go out and discussed the case with the and explained exactly what I did and exactly what it happened. Complications Iatrogenic injury to hepatic duct Admit VTE Documentation VTE Present on Admission: No VTE Mechan Device Prophylaxis: SCD's VTE Pharm Prophylaxis ordered?: No Reason prophylaxis not ordered:: Treatment Not Indicated
[2021-09-02 13:41] LABS: Bedside Glucose 248 mg/dL (70-110)
--- NOTE | 2021-09-02 14:40 | RAD_ITS ---
EXAM: INTRAOPERATIVE CHOLANGIOGRAM FLUOROSCOPY TIME: 401 seconds RADIATION DOSE: 128 mGy TOTAL NUMBER OF IMAGES: 10 COMPARISON: None. PROVIDED CLINICAL HISTORY: STONES PAIN TECHNIQUE: The examination was performed with physician in attendance. Under fluoroscopic observation, fluoroscopic images were obtained in the operating room. FINDINGS: First image demonstrates surgical instruments overlying the [id number]. Contrast is identified in a cannulated common bile duct. Retrograde contrast is notseen in the pancreatic duct. Contrast is noted in the proximal duodenum. Contrast is seen in the intrahepatic ducts. There is placement of a stent. IMPRESSION: Fluoroscopic assistance images were obtained. Pertinent findings noted above. Electronically Signed: Umesh Tovar MD at 18:26 EST , Service support , RAD/ERCP Biliary/Pancreas
--- NOTE | 2021-09-02 15:46 | CPS ---
started by nursing
--- NOTE | 2021-09-02 18:02 | OP.CCLET_ITS ---
09/02/2021 Iván Case [address] [place] [address] Re : ERCP procedure for Douglas Cesia Dear Dr. Case This procedure was performed on Thursday, September 02, 2021. My impressions and recommendations are as follows: Impressions : - The lower third of the main bile duct was mildly dilated, acquired. - A bile leak was found. - The patient has had a cholecystectomy. - Choledocholithiasis was found. Complete removal was accomplished by biliary sphincterotomy and balloon extraction. - A biliary sphincterotomy was performed. - The biliary tree was swept and clots, debris and sludge were found. - Common bile duct was successfully dilated. - Two metal stents were placed into the common bile duct. - One temporary stent was placed into the common bile duct. Recommendations : My findings are described in the full procedure note, which is enclosed. If I can be of further assistance, please feel free to contact me at . Sincerely, Luc Yarbrough, 09/02/2021 6:01:55 PM This report has been signed electronically.
--- NOTE | 2021-09-02 18:02 | OP.ERCP_ITS ---
Patient Name: Douglas Callaway Procedure Date: 09/02/2021 3:59 PM Date of : 1955 Age: 66 Procedure: ERCP Indications: Bile leak Providers: Luc Yarbrough DO Medicines: See the Anesthesia note for documentation of the administered medications Patient Profile: This is a 66 year old male. Refer to note in patient chart for documentation of history and physical. Patient has symptoms of acute abdominal distention. He is status post laparoscopic cholecystectomy recently. Complications: No immediate complications. Procedure: Pre-Anesthesia Assessment: - Prior to the procedure, a History and Physical was performed, and patient medications and allergies were reviewed. The patient is competent. The risks and benefits of the procedure and the sedation options and risks were discussed with the patient. All questions were answered and informed consent was obtained. Patient identification and proposed procedure were verified by the physician in the pre-procedure area. Mental Status Examination: alert and oriented. Airway Examination: normal oropharyngeal airway and neck mobility. Respiratory Examination: clear to auscultation. CV Examination: normal. Prophylactic Antibiotics: The patient does not require prophylactic antibiotics. Prior Anticoagulants: The patient has taken no previous anticoagulant or antiplatelet agents. ASA Grade Assessment: II - A patient with mild systemic disease. After reviewing the risks and benefits, the patient was deemed in satisfactory condition to undergo the procedure. The anesthesia plan was to use moderate sedation / analgesia (conscious sedation). Immediately prior to administration of medications, the patient was re-assessed for adequacy to receive sedatives. The heart rate, respiratory rate, oxygen saturations, blood pressure, adequacy of pulmonary ventilation, and response to care were monitored throughout the procedure. The physical status of the patient was re-assessed after the procedure. After obtaining informed consent, the scope was passed under direct vision. Throughout the procedure, the patient's blood pressure, pulse, and oxygen saturations were monitored continuously. The duodenoscope was introduced through the mouth, and advanced to the duodenum and used to inject contrast into the bile duct. The ERCP was accomplished without difficulty. The patient tolerated the procedure well. Moderate Sedation: Moderate (conscious) sedation was administered by the endoscopy nurse and supervised by the endoscopist. The patient's oxygen saturation, heart rate, blood pressure and response to care were monitored. Total physician intraservice time was 15 minutes. Scope In: 4:46:12 PM Scope Out: 5:53:55 PM Total Procedure Duration Time 1 hour 7 minutes 43 seconds Findings: The extruder tender film was normal. The esophagus was successfully intubated under direct vision. The scope was advanced to a normal major papilla in the descending duodenum without detailed examination of the pharynx, larynx and associated structures, and upper GI tract. The upper GI tract was grossly normal. A straight Roadrunner wire was passed into the biliary tree. The bile duct was then deeply cannulated over the guidewire. Contrast was injected. I personally interpreted the bile duct images. There was brisk flow of contrast through the ducts. Extravasation of contrast originating from the upper third of the main bile duct and common hepatic duct was observed. The lower third of the main bile duct contained one stone, which was 6 mm in diameter. The lower third of the main bile duct was mildly dilated and segmentally dilated, acquired. The largest diameter was 7 mm. A cholecystectomy had been performed. A 5 mm biliary sphincterotomy was made with a monofilament traction (standard) sphincterotome using ERBE electrocautery. There was no post-sphincterotomy bleeding. The biliary tree was swept with a 12 mm balloon starting at the bifurcation. All stones were removed. Clots were swept from the duct. Debris was swept from the duct. Sludge was swept from the duct. A long 0.035 inch Soft Jagwire passed successfully into the left and right hepatic ducts and all intrahepatic branches. Dilation of the common bile duct with a 6-7-8 mm balloon dilator was successful. Two 10 mm by 8 cm metal stents with no internal flaps were placed 8 cm into the common bile duct. Bile flowed through the stents. The stents were in good position. One 7 Fr by 12 cm temporary stent with a single external flap and two internal flaps was placed 12 cm into the common bile duct. Bile flowed through the stent. The stent was in good position. Impression: - The lower third of the main bile duct was mildly dilated, acquired. - A bile leak was found. - The patient has had a cholecystectomy. - Choledocholithiasis was found. Complete removal was accomplished by biliary sphincterotomy and balloon extraction. - A biliary sphincterotomy was performed. - The biliary tree was swept and clots, debris and sludge were found. - Common bile duct was successfully dilated. - Two metal stents were placed into the common bile duct. - One temporary stent was placed into the common bile duct. Procedure Code(s): --- Professional --- 98450, Endoscopic retrograde cholangiopancreatography (ERCP); with placement of endoscopic stent into biliary or pancreatic duct, including pre- and post-dilation and guide wire passage, when performed, including sphincterotomy, when performed, each stent [id number], 59, Endoscopic retrograde cholangiopancreatography (ERCP); with placement of endoscopic stent into biliary or pancreatic duct, including pre- and post-dilation and guide wire passage, when performed, including sphincterotomy, when performed, each stent [id number], 59, Endoscopic retrograde cholangiopancreatography (ERCP); with placement of endoscopic stent into biliary or pancreatic duct, including pre- and post-dilation and guide wire passage, when performed, including sphincterotomy, when performed, each stent [id number], Endoscopic retrograde cholangiopancreatography (ERCP); with removal of calculi/debris from biliary/pancreatic duct(s) 73641, 59, Moderate sedation services provided by the same physician or other qualified health day care home mother performing the diagnostic or therapeutic service that the sedation supports, requiring the presence of an independent trained observer to assist in the monitoring of the patient's level of consciousness and physiological status; initial 15 minutes of intraservice time, patient age 5 years or older CPT copyright 2017 [employer]. All rights reserved. The codes documented in this report are preliminary and upon screen and cyclone repairer review may be revised to meet current compliance requirements. Luc Yarbrough DO 09/02/2021 6:01:55 PM This report has been signed electronically. Number of Addenda: 0 Note Initiated On: 09/02/2021 3:59 PM
--- NOTE | 2021-09-02 20:41 | PN.HOSP_ITS ---
Subjective Subjective Patient was seen and examined today, he underwent a laparoscopic cholecystectomy and removal of a common bile duct stone today with sphincterotomy. Patient is ambulatory tonight at the time of my examination. He does not complain of any abdominal pain. Objective Data Objective Data Vital Signs: Vital Signs Temp Pulse Resp BP Pulse Ox 97.6 F L 63 16 135/60 H 99 09/02/21 19:15 09/02/21 19:15 09/02/21 19:15 09/02/21 19:15 09/02/21 19:15 Oxygen Flow Rate (L/min) 2 Oxygen Delivery Method Nasal Cannula Weight: 77.522 kg Body Mass Index (BMI) 25.9 Intake & Output: Intake and Output for Last 24 Hours 08/31/21 09/01/21 09/02/21 23:59 23:59 23:59 Intake Total 2975.25 / 2975.25 3188.33 / 3188.33 Output Total 160 / 160 Balance 2975.25 / 2975.25 3028.33 / 3028.33 Lab / Micro Data Result Diagrams: 09/03/21 06:15 09/03/21 06:15 Labs: Laboratory Results - last 24 hr 09/01/21 23:03: POC Glucose 172 H 09/02/21 06:05: WBC 18.5 H, RBC 4.32 L, Hgb 12.6 L, Hct 37.9 L, MCV 87.7, MCH 29.2, MCHC 33.2, RDW Std Deviation 43.1, RDW Coeff of Lidya 13.8, Plt Count 232, MPV 10.1, Immature Gran % (Auto) 0.800, Neut % (Auto) 84.7 H, Lymph % (Auto) 2.4 L, [place] % (Auto) 12.0 H, Eos % (Auto) 0.0, Baso % (Auto) 0.1, Absolute Neuts (auto) 15.6 H, Absolute Lymphs (auto) 0.45 L, Nucleated RBC % 0, Diff Path Review January09/02/21 06:05: Sodium 143, Potassium 2.9 L, Chloride 114 H, Carbon Dioxide 21.0, Anion Gap 8, BUN 14, Creatinine 1.14, Estim Creat Clear Calc 60.83, Est GFR (MDRD) Af Amer 82, Est GFR (MDRD) Non-Af 68, BUN/Creatinine Ratio 12.3, Glucose 181 H, Calcium 8.7, Total Bilirubin 0.70, AST 20, ALT 26, Alkaline Phosphatase 148 H, Total Protein 6.9, Albumin 3.0 L, Globulin 3.9, Albumin/Gl obulin Ratio 0.8 L 09/02/21 06:05: Hemoglobin A1c 6.1 H 09/02/21 06:05: Lipase 51 L 09/02/21 06:28: POC Glucose 179 H 09/02/21 13:33: POC Glucose 248 H Micro: Microbiology 09/02/21 Unknown Aspirate - Other Gram Stain - Final Radiography Diagnostic Testing: Radiology Impression Cholangiogram 09/02/21 11:01 IMPRESSION: Extra biliary opacification is visualized at the hilum of the liver. No evidence of opacification visualized into the duodenum. Please refer to operative report for details. Electronically Signed: Terry Victoria MD at 14:14 EST Tel , Service support , Endo Retro Cholangiopancreatogram 09/02/21 14:40 Physical Exam Const alert, oriented x3, no apparent distress and healthy appearing General Appearance: cooperative, well kempt and well developed Orientation / Consciousness: awake, oriented to person, oriented to place and oriented to time HEENT normocephalic, head/scalp atraumatic and moist oral mucous membranes Head and Scalp: normocephalic Eyes PERRL, EOMs intact bilaterally and conjunctivae normal Neck nuchal rigidity, supple, no JVD and thyroid normal General: trachea midline Resp normal respiratory effort, no retractions, no use of accessory muscles and clear to auscultation bilaterally Auscultation: Negative for rales, rhonchi or wheezes Cardio regular rate, regular rhythm, S1 normal heart sound, S2 normal heart sound, no murmurs, no rub and no gallops Extremity normal to inspection and no clubbing, cyanosis or edema Skin no rashes or lesions noted General Skin Exam: no breakdown Neuro oriented x3, CN's II-XII intact bilaterally, no focal motor deficits and no sensory deficits noted Sensorium / Orientation: awake and alert Speech: speech normal Psych thought process normal and affect normal Assessment & Plan Assessment/Plan (1) Acute cholecystitis due to biliary calculus: (2) Acute gallstone pancreatitis: PLAN: 1. Acute gallstone pancreatitis-patient underwent a laparoscopic cholecystectomy today with a tear in the hepatic duct, he underwent an ERCP afterwards and had a stent placed, at this time he appears to be medically stable, postop day 0 #2 cholelithiasis with choledocholithiasis-again patient underwent a cholecystectomy today with sphincterotomy and removal of common bile duct stone, postop day 0 #3 coronary artery disease-patient stated he had a bypass performed 2019-this appears to be stable at this time, he remains on his home medications #4 essential hypertension-patient remains on his home medications at this time #5 hyperlipidemia-patient remains on his home medication #6 hypokalemia-mild, labs will be monitored #7 chronic depression-patient is on Cymbalta presently #8 cerebrovascular disease by history-patient takes 81 mg aspirin daily Charges/Coding Visit Charges Inpatient E&M: 15374 Subs Hosp L2
[2021-09-02 21:55] LABS: Bedside Glucose 197 mg/dL (70-110)
[2021-09-03] VITALS (9 sets, daily range): BP systolic 103–148; BP diastolic 71–81; PULSE 66–115; RESP 16–18; TEMP 36.5–36.9; O2SAT 94–97
--- NOTE | 2021-09-03 00:01 | SDCEKG_ITS ---
Test Reason : RHYTHM CHANGE Blood Pressure : / mmHG Vent. Rate : 102 BPM Atrial Rate : 102 BPM P-R Int : 150 ms QRS Dur : 088 ms QT Int : 324 ms P-R-T Axes : 025 048 004 degrees QTc Int : 422 ms Sinus tachycardia Septal infarct , age undetermined Abnormal ECG When compared with ECG of 02-SEP-2021 04:47, MANUAL COMPARISON REQUIRED, DATA IS UNCONFIRMED Confirmed by EVER STAHL, ANNA ([id number]), acquisitions editor BRENT LEY ([id number]) on 09/04/2021 10:15:10 AM Referred By: Confirmed By:ANNA CURTIS MD
[2021-09-03 00:47] LABS: Hematocrit 31.5 % (40-54); Hemoglobin 10.6 g/dL (13.0-16.5)
[2021-09-03] MEDS: 0.9% Normal Saline 1,000 ML 175 ML IV (03:07)
[2021-09-03] MEDS: HYDROmorphone 1 MG/ML Syringe IV (05:13)
[2021-09-03] MEDS: Insulin Lispro 100 UNIT/ML INSULN.PEN SC ×4 (05:17→22:28)
[2021-09-03 05:26] LABS: Bedside Glucose 154 mg/dL (70-110)
[2021-09-03 07:01] LABS: Absolute Lymphocyte Count 0.72 X10^3/uL (0.83-4.51); Absolute Neutrophil Count 10.3 X10^3/uL (2.0-7.7); Basophil# 0.01 X10^3/uL; Basophil% 0.1 % (0-1); Hemoglobin 9.6 g/dL (13.0-16.5); Lymphocyte # 0.72 X10^3/ul (0.83-4.51); Lymphocyte % 5.8 % (19-41); Mean Corpuscular Hgb 28.6 pg (27.0-32.0); Mean Corpuscular Volume 89.3 fL (80-94); Monocyte# 1.35 X10^3/uL; Monocyte% 10.8 % (0-10); NRBC Flagged by Analyzer 0 % (0-5); Neutrophil # 10.33 X10^3/uL (2.7-7.7); Platelet Count 199 K/mm3 (150-450); RBC Distribution Width CV 14.3 % (11.6-14.6); RBC Distribution Width SD 45.8 fl (35.1-43.9); Red Blood Count 3.36 M/mm3 (4.6-6.2); White Blood Count 12.5 K/mm3 (4.4-11.0)
[2021-09-03 07:36] LABS: Anion Gap 8 (5-15); BUN 16 mg/dL (7-18); BUN/Creat Ratio 13.6 RATIO (10-20); Calcium,Total 8.2 mg/dL (8.5-10.1); Chloride 115 mmol/L (98-107); Creatinine, Serum 1.18 mg/dL (0.70-1.30); EST Glomerular Filtration Rate 65 mL/min (>60); Est Glom Filt Rate - Afr Amer 79 mL/min (>60); Estimated Creatinine Clearance 58.77 ml/min; Glucose 161 mg/dL (74-106); Potassium 3.8 mmol/L (3.5-5.1); Sodium Level 142 mmol/L (136-145)
--- NOTE | 2021-09-03 08:12 | PN.SURG_ITS ---
Subjective Subjective Patient does have some abdominal discomfort somewhat diffuse only had pain meds IV once overnight?did order oral this morning patient has been tolerating clears. GABRIELA is sanguinous Objective Data Objective Data Vital Signs: Vital Signs Temp Pulse Resp BP Pulse Ox 97.8 F 96 18 148/76 H 97 09/03/21 05:11 09/03/21 05:11 09/03/21 05:11 09/03/21 05:11 09/03/21 05:11 Oxygen Flow Rate (L/min) 1 Oxygen Delivery Method Room Air Weight: 170 lb 14.508 oz Body Mass Index (BMI) 25.9 Intake & Output: Intake and Output for Last 24 Hours 09/01/21 09/02/21 09/03/21 23:59 23:59 23:59 Intake Total 2975.25 / 2975.25 3427.08 / 3427.08 1365.83 / 1365.83 Output Total 735 / 735 800 / 800 Balance 2975.25 / 2975.25 2692.08 / 2692.08 565.83 / 565.83 Lab / Micro Data Result Diagrams: 09/03/21 06:15 09/03/21 06:15 Labs: Laboratory Results - last 24 hr 09/02/21 13:33: POC Glucose 248 H 09/02/21 21:48: POC Glucose 197 H 09/03/21 00:40: Hgb 10.6 L, Hct 31.5 L 09/03/21 05:16: POC Glucose 154 H 09/03/21 06:15: WBC 12.5 H, RBC 3.36 L, Hgb 9.6 L, Hct 30.0 L, MCV 89.3, MCH 28.6, MCHC 32.0, RDW Std Deviation 45.8 H, RDW Coeff of Lidya 14.3, Plt Count 199, MPV 10.0, Immature Gran % (Auto) 0.300, Neut % (Auto) 83.0 H, Lymph % (Auto) 5.8 L, [place] % (Auto) 10.8 H, Eos % (Auto) 0.0, Baso % (Auto) 0.1, Absolute Neuts (auto) 10.3 H, Absolute Lymphs (auto) 0.72 L, Nucleated RBC % 0 09/03/21 06:15: Sodium 142, Potassium 3.8, Chloride 115 H, Carbon Dioxide 19.0 L , Anion Gap 8, BUN 16, Creatinine 1.18, Estim Creat Clear Calc 58.77, Est GFR (MDRD) Af Amer 79, Est GFR (MDRD) Non-Af 65, BUN/Creatinine Ratio 13.6, Glucose 161 H, Calcium 8.2 L Micro: Microbiology 09/02/21 Unknown Aspirate - Other Gram Stain - Final Radiography Diagnostic Testing: Radiology Impression Cholangiogram 09/02/21 11:01 IMPRESSION: Extra biliary opacification is visualized at the hilum of the liver. No evidence of opacification visualized into the duodenum. Please refer to operative report for details. Electronically Signed: Terry Victoria MD at 14:14 EST Tel , Service support , Endo Retro Cholangiopancreatogram 09/02/21 14:40 Physical Exam Resp normal respiratory effort Cardio regular rate GI GI Narrative: Abdomen: Soft, nondistended, tender near incision's dressed clean dry and intact, no peritoneal signs, GABRIELA sanguinous Assessment & Plan Assessment/Plan (1) S/P laparoscopic cholecystectomy: (2) S/P ERCP: (3) Acute cholecystitis due to biliary calculus: (4) Bile leak, postoperative: (5) Acute gallstone pancreatitis: PLAN: Postop day 1 status post laparoscopic cholecystectomy, and ERCP with stent placement and stricturotomy due to bile leak from hepatic duct -Patient tolerated clears diet is advanced as tolerated -GABRIELA is sanguinous we will continue to monitor, patient able to tolerate a diet today and drain remains nonbilious would likely removed tomorrow -Leukocytosis improved to 12.5 from 18 we will continue with Zosyn IV -Encourage ambulation -Pain control with OxyIR/Tylenol. Mariana Paulson M.D. Pager: [phone] [facility] [address] [place] [address], [facility], [address] [place] [address] Office: [phone] Charges/Coding Visit Charges Inpatient E&M: 84446 Subs Hosp L3
--- NOTE | 2021-09-03 08:27 | NURSING ---
DR LOYA WAS IN AND CHANGED DRSG TO SITE. GOWN CHANGED AND PT UP TO CHAIR FOR BREAKFAST
[2021-09-03 10:10] LABS: Pathologist Review Reviewed
[2021-09-03] MEDS: Dorzolamide HCL/Timolol 10 ml Bottle 1 DRP OPHTHALMIC ×2 (10:12→22:27)
[2021-09-03] MEDS: Aspirin E.C. 81 MG Tablet PO (10:14)
[2021-09-03] MEDS: DULoxetine Hcl 60 MG Capsule PO (10:14)
[2021-09-03] MEDS: Metoprolol Tartrate 25 MG Tablet 75 MG PO ×2 (10:14→22:27)
[2021-09-03] MEDS: Atorvastatin Calcium 80 MG Tablet PO (10:14)
[2021-09-03] MEDS: amLODIPine 10 MG Tablet PO (10:15)
[2021-09-03] MEDS: Heparin Injection (Vial) 5,000 UNIT/ML VIAL 5000 UNIT SC ×2 (10:21→22:28)
[2021-09-03] MEDS: Acetaminophen 325 MG Tablet 650 MG PO ×2 (10:25→18:46)
[2021-09-03] MEDS: oxyCODONE 5 MG Tablet PO ×2 (10:26→18:45)
--- NOTE | 2021-09-03 10:40 | CASEMGMT ---
[address] L[address] Assessment: Face to Face with pt for initial transition planning/care coordination assessment. [address]UN L[address] introduced self and role at [facility], pt voices understanding and consents to assessment. Pt is A/O x4 and answers all questions appropriately at this time. Pt lying in bed in no distress. Care providers, pharmacy, and demographics verified/updated. Admitting Dx: gallstone pancreatitis PCP: Evie Specialists: Asmita, cardio; Tomy, bariatric surgeon; kolton Anderson Preferred Pharmacy: [facility] Insurance: MCR, Cigna [facility] Supp Prescription Benefit: yes LW/HPOA: Pt has a DPOA on file. his DPOA is his Amairani Callaway. He is aware that his LW is not on file and he may bring in at any time to be scanned into his chart. LNOK: Amairani Callaway, ; Katelyn Le, dtr Living Arrangements: Pt lives with in a split level house with no steps to enter. Pt reports he is I in ADL's and denies concerns at home. Transportation: Pt drives self and denies concerns with transportation. DME/HHC/SNF: Pt has a cane at home that he uses for his therapy on his arm. He has a functioning BGM with lancets and strips but states he does not check his blood sugars very often. Pt has had HHC from [facility] in the past and denies SNF stays. Pt states he fainted recently and fx his R humerus. He is going to [facility] weekly for therapy. Pt states no concerns with going home at time of dc. Pt states no further concerns/needs. CM to follow. Advised pt to ask CM if any further question/concerns/needs arise, voices understanding. Pt Goal: Home Plan: Home
[2021-09-03 11:45] LABS: Bedside Glucose 205 mg/dL (70-110)
[2021-09-03 17:26] LABS: Bedside Glucose 172 mg/dL (70-110)
--- NOTE | 2021-09-03 19:51 | NURSING ---
DR LOYA CALLED TO CHECK ON PT. THIS NURSE INFORMED HER THAT PT IS TOLERATING TRANSITIONAL DIET, BS+, PASSING FLATUS. 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
--- NOTE | 2021-09-03 20:23 | PCM.PN.HOSP ---
Subjective Subjective Patient was seen and examined today, I talked briefly with Dr. Winchester about the patient's care and with Dr. Yarbrough. I have added Augmentin to the patient's medications today at the request of Dr. Yarbrough. Patient appears to be eating without evidence of nausea or vomiting. Objective Data Objective Data Vital Signs: Vital Signs Temp Pulse Resp BP Pulse Ox 98.5 F 76 16 103/76 95 09/03/21 20:04 09/03/21 20:04 09/03/21 20:04 09/03/21 20:04 09/03/21 20:04 Oxygen Flow Rate (L/min) 1 Oxygen Delivery Method Room Air Weight: 77.522 kg Body Mass Index (BMI) 25.9 Intake & Output: Intake and Output for Last 24 Hours 09/01/21 09/02/21 09/03/21 23:59 23:59 23:59 Intake Total 2975.25 / 2975.25 3427.08 / 3427.08 3165.83 / 3165.83 Output Total 735 / 735 1885 / 1885 Balance 2975.25 / 2975.25 2692.08 / 2692.08 1280.83 / 1280.83 Lab / Micro Data Result Diagrams: 09/04/21 05:30 09/03/21 06:15 Labs: Laboratory Results - last 24 hr 09/02/21 06:05: Diff Path Review Reviewed 09/02/21 21:48: POC Glucose 197 H 09/03/21 00:40: Hgb 10.6 L, Hct 31.5 L 09/03/21 05:16: POC Glucose 154 H 09/03/21 06:15: WBC 12.5 H, RBC 3.36 L, Hgb 9.6 L, Hct 30.0 L, MCV 89.3, MCH 28.6, MCHC 32.0, RDW Std Deviation 45.8 H, RDW Coeff of Lidya 14.3, Plt Count 199, MPV 10.0, Immature Gran % (Auto) 0.300, Neut % (Auto) 83.0 H, Lymph % (Auto) 5.8 L, [place] % (Auto) 10.8 H, Eos % (Auto) 0.0, Baso % (Auto) 0.1, Absolute Neuts (auto) 10.3 H, Absolute Lymphs (auto) 0.72 L, Nucleated RBC % 0 09/03/21 06:15: Sodium 142, Potassium 3.8, Chloride 115 H, Carbon Dioxide 19.0 L, Anion Gap 8, BUN 16, Creatinine 1.18, Estim Creat Clear Calc 58.77, Est GFR (MDRD) Af Amer 79, Est GFR (MDRD) Non-Af 65, BUN/Creatinine Ratio 13.6, Glucose 161 H, Calcium 8.2 L 09/03/21 11:37: POC Glucose 205 H 09/03/21 16:46: POC Glucose 172 H Micro: Microbiology 09/02/21 Unknown Aspirate - Other Gram Stain - Final 09/02/21 Unknown Aspirate - Other Wound Culture - Preliminary GPC Poss Enterococcus sp Physical Exam Const alert, oriented x3, no apparent distress and healthy appearing General Appearance: cooperative, well kempt and well developed Orientation / Consciousness: awake, oriented to person, oriented to place and oriented to time HEENT normocephalic, head/scalp atraumatic and moist oral mucous membranes Head and Scalp: normocephalic Eyes PERRL, EOMs intact bilaterally and conjunctivae normal Neck nuchal rigidity, supple, no JVD, thyroid normal and no carotid bruits General: trachea midline Resp normal respiratory effort and clear to auscultation bilaterally Auscultation: Negative for rales, rhonchi or wheezes Cardio regular rate, regular rhythm, no murmurs, no rub and no gallops GI normal to inspection, nondistended, normoactive bowel sounds, soft to palpation and non-distended Extremity no clubbing, cyanosis or edema Skin no rashes or lesions noted General Skin Exam: no breakdown Neuro oriented x3, CN's II-XII intact bilaterally, no focal motor deficits and no sensory deficits noted Sensorium / Orientation: awake and alert Speech: speech normal Psych thought process normal and affect normal Assessment & Plan Assessment/Plan (1) S/P laparoscopic cholecystectomy: (2) Acute cholecystitis due to biliary calculus: (3) Acute gallstone pancreatitis: PLAN: 1. Acute gallstone pancreatitis-patient underwent a laparoscopic cholecystectomy today with a tear in the hepatic duct, he underwent an ERCP afterwards and had a stent placed, at this time he appears to be medically stable, postop day 1 #2 cholelithiasis with choledocholithiasis-again patient underwent a cholecystectomy today with sphincterotomy and removal of common bile duct stone, postop day 1 #3 coronary artery disease-patient stated he had a bypass performed 2019-this appears to be stable at this time, he remains on his home medications #4 essential hypertension-patient remains on his home medications at this time #5 hyperlipidemia-patient remains on his home medication #6 hypokalemia-mild, labs will be monitored #7 chronic depression-patient is on Cymbalta presently #8 cerebrovascular disease by history-patient takes 81 mg aspirin daily Charges/Coding Visit Charges Inpatient E&M: 47753 Subs Hosp L2
[2021-09-03] MEDS: Amox/Clavulanate 875 MG Tablet PO (22:26)
[2021-09-03 22:41] LABS: Bedside Glucose 206 mg/dL (70-110)
[2021-09-04] MEDS: oxyCODONE 5 MG Tablet PO ×2 (02:09→13:13)
[2021-09-04] MEDS: Acetaminophen 325 MG Tablet 650 MG PO ×2 (02:09→13:13)
[2021-09-04 02:10] VITALS: BP 134/67; PULSE 61; RESP 16; TEMP 36.8; O2SAT 96
[2021-09-04 06:31] LABS: Bedside Glucose 132 mg/dL (70-110)
[2021-09-04 07:01] LABS: Absolute Lymphocyte Count 1.01 X10^3/uL (0.83-4.51); Basophil# 0.01 X10^3/uL; Basophil% 0.1 % (0-1); Eosinophil# 0.04 X10^3/uL; Eosinophils% 0.4 % (0-5); Hematocrit 31.3 % (40-54); Hemoglobin 9.9 g/dL (13.0-16.5); Lymphocyte # 1.01 X10^3/ul (0.83-4.51); Lymphocyte % 10.9 % (19-41); Mean Corp Hgb Conc 31.6 g/dL (32-36); Mean Corpuscular Hgb 28.1 pg (27.0-32.0); Mean Corpuscular Volume 88.9 fL (80-94); Mean Platelet Vol. 10.4 fl (6.2-12.0); Monocyte# 1.11 X10^3/uL; NRBC Flagged by Analyzer 0 % (0-5); Neutrophil # 7.02 X10^3/uL (2.7-7.7); Neutrophil % 76.1 % (47-70); Platelet Count 178 K/mm3 (150-450); RBC Distribution Width CV 14.2 % (11.6-14.6); RBC Distribution Width SD 45.4 fl (35.1-43.9); Red Blood Count 3.52 M/mm3 (4.6-6.2); White Blood Count 9.2 K/mm3 (4.4-11.0)
[2021-09-04] MEDS: Amox/Clavulanate 875 MG Tablet PO ×2 (07:28→18:08)
[2021-09-04 07:50] VITALS: BP 132/73; PULSE 68; RESP 16; TEMP 36.7; O2SAT 94
--- NOTE | 2021-09-04 08:20 | DCINST_ITS ---
Discharge Instructions Procedure Gallbladder Diet Discharge Diet: Light diet - advance as tolerated Activity Discharge Activity: May Not Drive (for 2-3 days or while taking narcotic pain medications.) May shower in (days): 1 Lifting Restrictions: no lifting > 20 lb x 2 weeks until f/u with Dr. Winchester Additional Activity Instructions:: Pain medication may cause nausea. You should typically eat light foods as you take your pain medications. Pain medication may also cause constipation. If this is a problem for you, please discuss with your doctor. Dressing / Incision Call your doctor if your incision/area has: Continuous Slow Oozing, Sudden Increased Bleeding, Increased Pain/ Swelling, Increased Redness and Foul Smelling Discharge Call your doctor if you observe: Fever of 101 or Higher Suture Line Care: Avoid Pulling/Pushing and Avoid Pinching/Bending Additional Dressing/Incision Instructions:: Leave operative bandaids on for 2 days. When you remove dressing, leave Steri-Strips on until your follow-up appointment, or until the Steri-Strips fall off on their own. Follow Up Care Please Follow Up With: Michael Winchester MD When: in 2 weeks--call for appointment Test Results: Test results from this visit will be discussed in further detail at your follow-up appointment, if applicable. Discharge Plan Admission Admit Date/Time: 09/01/21 07:42 Attending Provider: Ashok Mujica Primary Care Provider: Iván Case Consulting Providers: Michael Winchester Discharge Orders/Prescriptions Prescriptions: New oxycodone-acetaminophen [Percocet] 5-325 mg tablet 1 - 2 tab PO Q6H PRN (Reason: pain) 3 Days Qty: 14 RF: 0 Discontinued hydrocodone-acetaminophen [[place]] 5-325 mg Tablet 1 tab PO Q8H PRN (Reason: Pain) RF: 0 No Action dorzolamide-timolol [Cosopt] 22.3-6.8 mg/mL drops 1 drp OPHTHALMIC BID RF: 0 aspirin [Adult Low Dose Aspirin] 81 mg tablet,delayed release (DR/EC) 81 mg PO DAILY RF: 0 duloxetine 60 mg capsule,delayed release(DR/EC) 60 mg PO DAILY RF: 0 metformin 1,000 mg tablet 1,000 mg PO BID RF: 0 rosuvastatin 40 mg tablet 40 mg PO DAILY RF: 0 sucralfate 1 gram tablet 1 g PO .QID RF: 0 amlodipine 10 mg tablet 10 mg PO DAILY Qty: 90 RF: 4 metoprolol tartrate 50 mg tablet 75 mg PO BID Qty: 270 RF: 4 Referrals / Follow Up: Iván Case MD [Primary Care Provider] -
--- NOTE | 2021-09-04 08:20 | PCM.PN.SRG ---
Subjective Subjective Patient is tolerating diet. Pain is controlled only needed pain meds once last night. Objective Data Objective Data Vital Signs: Vital Signs Temp Pulse Resp BP Pulse Ox 98.1 F 68 16 132/73 H 94 09/04/21 07:50 09/04/21 07:50 09/04/21 07:50 09/04/21 07:50 09/04/21 07:50 Oxygen Flow Rate (L/min) 1 Oxygen Delivery Method Room Air Weight: 170 lb 14.508 oz Body Mass Index (BMI) 25.9 Intake & Output: Intake and Output for Last 24 Hours 09/02/21 09/03/21 09/04/21 23:59 23:59 23:59 Intake Total 3427.08 / 3427.08 3465.83 / 3465.83 Output Total 735 / 735 2290 / 2290 1585 / 1585 Balance 2692.08 / 2692.08 1175.83 / 1175.83 -1585 / -1585 Lab / Micro Data Result Diagrams: 09/04/21 05:30 09/03/21 06:15 Labs: Laboratory Results - last 24 hr 09/02/21 06:05: Diff Path Review Reviewed 09/03/21 11:37: POC Glucose 205 H 09/03/21 16:46: POC Glucose 172 H 09/03/21 22:25: POC Glucose 206 H 09/04/21 05:30: WBC 9.2, RBC 3.52 L, Hgb 9.9 L, Hct 31.3 L, MCV 88.9, MCH 28.1, MCHC 31.6 L, RDW Std Deviation 45.4 H, RDW Coeff of Lidya 14.2, Plt Count 178, MPV 10.4, Immature Gran % (Auto) 0.500, Neut % (Auto) 76.1 H, Lymph % (Auto) 10.9 L, [place] % (Auto) 12.0 H, Eos % (Auto) 0.4, Baso % (Auto) 0.1, Absolute Neuts (auto) 7.0, Absolute Lymphs (auto) 1.01, Nucleated RBC % 0 09/04/21 06:24: POC Glucose 132 H Micro: Microbiology 09/02/21 Unknown Aspirate - Other Gram Stain - Final 09/02/21 Unknown Aspirate - Other Wound Culture - Preliminary GPC Poss Enterococcus sp Physical Exam Resp normal respiratory effort Cardio regular rate GI GI Narrative: Abdomen: Soft, nondistended, tender near incision's dressed clean dry and intact, no peritoneal signs??GABRIELA sanguinous?removed at bedside Assessment & Plan Assessment/Plan (1) S/P laparoscopic cholecystectomy: (2) S/P ERCP: (3) Acute cholecystitis due to biliary calculus: (4) Bile leak, postoperative: (5) Acute gallstone pancreatitis: PLAN: Postop day 1 status post laparoscopic cholecystectomy, and ERCP with stent placement and stricturotomy due to bile leak from hepatic duct -Tolerating a transitional diet okay to DC -GABRIELA remain sanguinous removed at bedside today -Leukocytosis-resolved -- 9.2, on Augmentin and will go home with a prescription for a few additional days as well. Mariana Paulson M.D. Pager: [phone] [facility] [address] [place] [address], [facility], [address] [place] [address] Office: [phone] Charges/Coding Visit Charges Inpatient E&M: 30010 Subs Hosp L2
[2021-09-04] MEDS: DULoxetine Hcl 60 MG Capsule PO (11:01)
[2021-09-04] MEDS: Dorzolamide HCL/Timolol 10 ml Bottle 1 DRP OPHTHALMIC (11:01)
[2021-09-04] MEDS: Aspirin E.C. 81 MG Tablet PO (11:01)
[2021-09-04 11:02] VITALS: PULSE 95
[2021-09-04] MEDS: Metoprolol Tartrate 25 MG Tablet 75 MG PO (11:02)
[2021-09-04] MEDS: Atorvastatin Calcium 80 MG Tablet PO (11:02)
[2021-09-04] MEDS: amLODIPine 10 MG Tablet PO (11:02)
[2021-09-04] MEDS: Heparin Injection (Vial) 5,000 UNIT/ML VIAL 5000 UNIT SC (11:03)
[2021-09-04] MEDS: Insulin Lispro 100 UNIT/ML INSULN.PEN SC ×2 (11:09→16:22)
[2021-09-04 11:40] LABS: Bedside Glucose 238 mg/dL (70-110)
[2021-09-04 16:00] VITALS: BP 123/72; PULSE 59; RESP 16; TEMP 36.4; O2SAT 96
--- NOTE | 2021-09-04 16:27 | DCINST_ITS ---
Discharge Instructions Diet Discharge Diet: Light diet - advance as tolerated Activity May shower in (days): 1 Additional Activity Instructions:: Pain medication may cause nausea. You should typically eat light foods as you take your pain medications. Pain medication may also cause constipation. If this is a problem for you, please discuss with your doctor. Dressing / Incision Call your doctor if your incision/area has: Continuous Slow Oozing, Sudden Increased Bleeding, Increased Pain/ Swelling, Increased Redness and Foul Smelling Discharge Call your doctor if you observe: Fever of 101 or Higher Suture Line Care: Avoid Pulling/Pushing and Avoid Pinching/Bending Additional Dressing/Incision Instructions:: Leave operative bandaids on for 2 days. When you remove dressing, leave Steri-Strips on until your follow-up appointment, or until the Steri-Strips fall off on their own. Follow Up Care Please Follow Up With: Michael Winchester MD When: two weeks-call to schedule Test Results: Test results from this visit will be discussed in further detail at your follow-up appointment, if applicable. Discharge Plan Admission Admit Date/Time: 09/01/21 07:42 Primary Reason for Your Visit: cholecystitis Attending Provider: Ashok Mujica Primary Care Provider: Iván Case Consulting Providers: Michael Winchester Discharge Orders/Prescriptions Prescriptions: New oxycodone-acetaminophen [Percocet] 5-325 mg tablet 1 - 2 tab PO Q6H PRN (Reason: pain) 3 Days Qty: 14 RF: 0 amoxicillin-pot clavulanate 875-125 mg Tablet 875 mg PO BIDCM Qty: 18 RF: 0 Continued dorzolamide-timolol [Cosopt] 22.3-6.8 mg/mL drops 1 drp OPHTHALMIC BID RF: 0 aspirin [Adult Low Dose Aspirin] 81 mg tablet,delayed release (DR/EC) 81 mg PO DAILY RF: 0 duloxetine 60 mg capsule,delayed release(DR/EC) 60 mg PO DAILY RF: 0 rosuvastatin 40 mg tablet 40 mg PO DAILY RF: 0 metformin 1,000 mg tablet 1,000 mg PO BID Qty: 0 RF: 0 amlodipine 10 mg tablet 10 mg PO DAILY Qty: 90 RF: 4 metoprolol tartrate 50 mg tablet 75 mg PO BID Qty: 270 RF: 4 Discontinued sucralfate 1 gram tablet 1 g PO .QID RF: 0 hydrocodone-acetaminophen [[place]] 5-325 mg Tablet 1 tab PO Q8H PRN (Reason: Pain) RF: 0 Referrals / Follow Up: Michael Winchester MD [STAFF PHYSICIAN] - See Referral Note (in two weeks-call for appointment) Iván Case MD [Primary Care Provider] - Within 2 Weeks Disposition Disposition (needs filled in before D/C Order can be placed): Home, Self Care
[2021-09-04 17:20] LABS: Bedside Glucose 177 mg/dL (70-110)
--- NOTE | 2021-09-07 19:27 | DS.PCM_ITS ---
Providers Date of Admission: 09/01/21 Date of Discharge: 09/04/21 Primary Care Physician: Dr. Iván Case MD Consultations 09/01/21 08:50 Consult: Gastroenterology Routine Consulting Provider: [facility] Reason for Consult: gallstone pancreatitis EMERGENT Consult: No Notified: Yes Date Notified: 09/01/21 Time Notified: 07:49 Method of Notification: Verbal Consult: General Surgery Routine Consulting Provider: Michael Winchester Reason for Consult: gallstone pancreatitis EMERGENT Consult: No Notified: Yes Date Notified: 09/01/21 Time Notified: 07:49 Method of Notification: Verbal Reason For Visit: GALLSTONE PANCREATITIS Diagnosis Discharge Diagnosis (1) S/P laparoscopic cholecystectomy: Status: Acute Code(s): Z90.49 - Acquired absence of other specified parts of digestive tract (2) Acute cholecystitis due to biliary calculus: Status: Resolved Code(s): K80.00 - Calculus of gallbladder with acute cholecystitis without obstruction (3) Acute gallstone pancreatitis: Status: Resolved Code(s): K85.10 - Biliary acute pancreatitis without necrosis or infection Plan: 1. Acute gallstone pancreatitis #2 cholelithiasis with choledocholithiasis #3 coronary artery disease #4 essential hypertension-patient remains on his home medications at this time #5 hyperlipidemia-patient remains on his home medication #6 hypokalemia #7 chronic depression #8 cerebrovascular disease by history Medications at Discharge Home Medications aspirin 81 mg tablet,delayed release 81 mg PO DAILY 09/28/19 dorzolamide 22.3 mg-timolol 6.8 mg/mL eye drops 1 drp OPHTHALMIC BID 09/28/19 duloxetine 60 mg capsule,delayed release 60 mg PO DAILY cap 10/17/19 amlodipine 10 mg tablet 10 mg PO DAILY #90 tab 05/14/20 rosuvastatin 40 mg tablet 40 mg PO DAILY tab 05/31/20 metoprolol tartrate 50 mg tablet 75 mg PO BID #270 tab 06/18/21 amoxicillin-pot clavulanate 875 mg PO BIDCM #18 tab 09/04/21 metformin 1,000 mg PO BID #0 tab 09/04/21 oxycodone-acetaminophen [Percocet] 1 - 2 tab PO Q6H PRN 3 Days #14 tab 09/04/21 Hospital Course Operations cholecystecomy and ERCP Summary of Care Provided Minutes Spent on Discharge: 32 Hospital Course: 66-year-old white male was seen in the emergency room at [facility] with chief complaint of mid abdominal pain, work-up in the emergency room revealed his potassium to be slightly low at 3.4, lipase was elevated at 1323, patient had imaging studies done-CT of the abdomen pelvis-which showed cholelithiasis with dilated common bile duct, patient was given antiemetics and narcotics in the emergency room and general surgery and gastroenterology were contacted and saw the patient in consultation. Patient was taken to surgery for laparoscopic cholecystectomy, during the procedure, the hepatic duct was noted to be perforated and an ERCP was performed along with a sphincterotomy and stent placement by gastroenterology. Patient was kept on IV antibiotics and progressed well during his hospitalization. On 09/04/2021, patient was seen and examined: On examination he appeared in good health and spirits. Vital signs as documented. Skin warm and dry and without overt rashes. Neck without JVD, neck was supple, trachea midline, thyroid was normal. Lungs clear bilaterally, normal air movement was noted. Heart exam notable for regular rhythm, normal sounds and absence of murmurs, rubs or gallops. Abdomen unremarkable and without evidence of organomegaly, masses, or abdominal aortic enlargement. Bowel sounds are present, abdomen is not distended. Extremities nonedematous, no cyanosis was noted, no clubbing was noted. Neuro: Cranial nerves II through XII are grossly intact, no focal motor deficits were noted, sensation to light touch and pinprick intact, motor exam 5/5 throughout. Psych: Patient is alert and oriented x3, he does not appear anxious or depressed, he does not appear agitated. Patient was felt to be stable for discharge home on 09/04/2021. Weight / BMI Weight Weight: 77.522 kg Body Mass Index (BMI) 25.9 ABG / Lab / Microbiology Data Result Diagrams: 09/04/21 05:30 09/03/21 06:15 Microbiology: Microbiology 09/02/21 Unknown Aspirate - Other Gram Stain - Final 09/02/21 Unknown Aspirate - Other Wound Culture - Final Enterococcus faecium 09/02/21 Unknown Aspirate - Other Anaerobic Culture - Final No anaerobic bacteria isolated. D/C Instructions Discharge Diet: Light diet - advance as tolerated May shower in (days): 1 Additional Activity Instructions: Pain medication may cause nausea. You should typically eat light foods as you take your pain medications. Pain medication may also cause constipation. If this is a problem for you, please discuss with your doctor. Call your doctor if your incision/area has: Continuous Slow Oozing, Sudden Incre ased Bleeding, Increased Pain/ Swelling, Increased Redness and Foul Smelling Discharge Call your doctor if you observe: Fever of 101 or Higher Suture Line Care: Avoid Pulling/Pushing and Avoid Pinching/Bending Additional Dressing/Incision Instructions: Leave operative bandaids on for 2 days. When you remove dressing, leave Steri-Strips on until your follow-up appointment, or until the Steri-Strips fall off on their own. Please Follow Up With: Michael Winchester MD When: two weeks-call to schedule Meaningful Use Info Meaningful Use Diagnoses (Choose all that apply): None applicable Discharge Plan Admission Admit Date/Time: 09/01/21 07:42 Primary Reason for Your Visit: cholecystitis Attending Provider: Ashok Mujica Primary Care Provider: Iván Case Consulting Providers: Michael Winchester Discharge Orders/Prescriptions Prescriptions: New oxycodone-acetaminophen [Percocet] 5-325 mg tablet 1 - 2 tab PO Q6H PRN (Reason: pain) 3 Days Qty: 14 RF: 0 amoxicillin-pot clavulanate 875-125 mg Tablet 875 mg PO BIDCM Qty: 18 RF: 0 Continued dorzolamide-timolol [Cosopt] 22.3-6.8 mg/mL drops 1 drp OPHTHALMIC BID RF: 0 aspirin [Adult Low Dose Aspirin] 81 mg tablet,delayed release (DR/EC) 81 mg PO DAILY RF: 0 duloxetine 60 mg capsule,delayed release(DR/EC) 60 mg PO DAILY RF: 0 rosuvastatin 40 mg tablet 40 mg PO DAILY RF: 0 metformin 1,000 mg tablet 1,000 mg PO BID Qty: 0 RF: 0 amlodipine 10 mg tablet 10 mg PO DAILY Qty: 90 RF: 4 metoprolol tartrate 50 mg tablet 75 mg PO BID Qty: 270 RF: 4 Discontinued sucralfate 1 gram tablet 1 g PO .QID RF: 0 hydrocodone-acetaminophen [[place]] 5-325 mg Tablet 1 tab PO Q8H PRN (Reason: Pain) RF: 0 Referrals / Follow Up: Michael Winchester MD [STAFF PHYSICIAN] - See Referral Note (in two weeks-call for appointment) Iván Case MD [Primary Care Provider] - Within 2 Weeks Disposition Disposition (needs filled in before D/C Order can be placed): Home, Self Care Charges/Coding Visit Charges Inpatient E&M: 26584 Disch Hosp
== END 2021-09-04 18:50 | disposition home or self-care (01) | DRG 418 ==
LOC: ED 07:35 → MS3 08:09
PROVIDERS: Anesthesiology; Internal Medicine; Internal Medicine Gastroenterology; Surgery; Admitting Provider Internal Medicine; Emergency Provider Emergency Medicine; PCP Family Medicine; Visit Provider Internal Medicine
PROC: 0FT44ZZ Resection of Gallbladder, Percutaneous Endoscopic Approach (ICD-10-PCS; principal; 2021-09-02 10:40)
PROC: (CPT 43260; principal; 2021-09-02 14:55)
DX: K85.10 Biliary acute pancreatitis without necrosis or infection (principal); K80.62 Calculus of gallbladder and bile duct with acute cholecystitis without obstruction; F31.81 Bipolar II disorder; B15.9 Hepatitis A without hepatic coma; S36.13XA Injury of bile duct, initial encounter; K91.71 Accidental puncture and laceration of a digestive system organ or structure during a digestive system procedure; Y92.234 Operating room of hospital as the place of occurrence of the external cause; Y65.8 Other specified misadventures during surgical and medical care; E87.6 Hypokalemia; I25.10 Atherosclerotic heart disease of native coronary artery without angina pectoris; E11.9 Type 2 diabetes mellitus without complications; I10 Essential (primary) hypertension; E78.5 Hyperlipidemia, unspecified; M10.9 Gout, unspecified; K58.9 Irritable bowel syndrome, unspecified; G47.30 Sleep apnea, unspecified; K21.9 Gastro-esophageal reflux disease without esophagitis; Z79.82 Long term (current) use of aspirin; Z79.84 Long term (current) use of oral hypoglycemic drugs; Z79.899 Other long term (current) drug therapy; Z86.73 Personal history of transient ischemic attack (TIA), and cerebral infarction without residual deficits; Z87.891 Personal history of nicotine dependence; Z95.1 Presence of aortocoronary bypass graft
CPT/HCPCS: 36415; 74177; 74300; 74330; 76000; 76705; 80048; 80053; 82962; 83036; 83690; 85014; 85018; 85025; 87015; 87070; 87075; 87077; 87102; 87116; 87186; 87205; 87206; 88304; 93005; 99251; 99283; J7030; J7050; Q9967; A4216; C1769; G0463; J1610; J2405

== ENCOUNTER 2021-11-07 11:50 | Outpatient (CLI) | payer MEDICARE, OTHER, SELFPAY ==
[2020-04-24 10:56] VITALS: BMI 26.7
[2021-11-07 14:55] LABS: Absolute Lymphocyte Count 1.56 X10^3/uL (0.83-4.51); Absolute Neutrophil Count 4.8 X10^3/uL (2.0-7.7); Basophil# 0.02 X10^3/uL; Basophil% 0.3 % (0-1); Eosinophil# 0.23 X10^3/uL; Eosinophils% 3.1 % (0-5); Hematocrit 41.3 % (40-54); Lymphocyte # 1.56 X10^3/ul (0.83-4.51); Lymphocyte % 21.1 % (19-41); Mean Corp Hgb Conc 31.5 g/dL (32-36); Mean Corpuscular Hgb 29.1 pg (27.0-32.0); Mean Corpuscular Volume 92.4 fL (80-94); Mean Platelet Vol. 11.4 fl (6.2-12.0); Monocyte# 0.74 X10^3/uL; NRBC Flagged by Analyzer 0 % (0-5); Neutrophil # 4.82 X10^3/uL (2.7-7.7); Neutrophil % 65.2 % (47-70); Platelet Count 258 K/mm3 (150-450); RBC Distribution Width CV 16.3 % (11.6-14.6); RBC Distribution Width SD 54.9 fl (35.1-43.9); Red Blood Count 4.47 M/mm3 (4.6-6.2); White Blood Count 7.4 K/mm3 (4.4-11.0)
[2021-11-07 15:36] LABS: ALB/GLOB Ratio 0.9 RATIO (0.9-2.4); AST(SGOT) 27 U/L (15-37); Alanine Aminotransfer ALT/SGPT 34 U/L (16-61); Albumin, Serum 3.3 g/dL (3.2-5.0); Alkaline Phosphatase 154 U/L (45-117); Anion Gap 3 (5-15); BUN 23 mg/dL (7-18); BUN/Creat Ratio 20.4 RATIO (10-20); Calcium,Total 9.7 mg/dL (8.5-10.1); Chloride 108 mmol/L (98-107); Cholesterol 90 mg/dL (200); Creatinine, Serum 1.13 mg/dL (0.70-1.30); EST Glomerular Filtration Rate 69 mL/min (>60); Est Glom Filt Rate - Afr Amer 83 mL/min (>60); Ferritin 21 ng/mL (26-388); Globulin 3.7 g/dL (2.2-4.2); Glucose 138 mg/dL (74-106); High Density Lipoprotein 42 mg/dL; Iron 49 ug/dL (65-175); Iron Binding Capacity,Total 340 ug/dL (250-450); PERCENT IRON SATURATION 14.4 % (15.0-55.0); Potassium 4.4 mmol/L (3.5-5.1); Sodium Level 141 mmol/L (136-145); Triglycerides 161 mg/dL; Very Low Density Lipoprotein 32 mg/dL (5-40)
== END 2021-11-07 23:59 | disposition home or self-care (01) ==
LOC: MFPLAB 11:55
PROVIDERS: PCP Family Medicine; Referring Provider Family Medicine; Visit Provider Family Medicine
DX: E11.9 Type 2 diabetes mellitus without complications (principal); E61.1 Iron deficiency
CPT/HCPCS: 36415; 80053; 80061; 82728; 83036; 83540; 83550; 85025

== ENCOUNTER 2021-12-11 16:09 | Outpatient (CLI) | payer MEDICARE, OTHER, SELFPAY ==
[2020-04-24 10:56] VITALS: BMI 26.7
[2021-12-11 17:37] LABS: Hematocrit 41.6 % (40-54); Hemoglobin 13.3 g/dL (13.0-16.5); Mean Corpuscular Hgb 28.7 pg (27.0-32.0); Mean Corpuscular Volume 89.8 fL (80-94); Mean Platelet Vol. 10.9 fl (6.2-12.0); Platelet Count 242 K/mm3 (150-450); RBC Distribution Width CV 14.7 % (11.6-14.6); RBC Distribution Width SD 48.6 fl (35.1-43.9); Red Blood Count 4.63 M/mm3 (4.6-6.2); White Blood Count 6.5 K/mm3 (4.4-11.0)
[2021-12-11 17:43] LABS: CRP < 2.90 mg/L (0.0-3.0)
[2021-12-11 17:56] LABS: Erythrocyte Sedimentation Rate 8 mm/hr (0-20)
[2021-12-11 18:43] LABS: Hemoglobin A1c 6.3 % (3.8-5.6)
== END 2021-12-11 23:59 | disposition home or self-care (01) ==
LOC: MTLAB 16:11
PROVIDERS: PCP Family Medicine; Referring Provider Orthopaedic Surgery; Visit Provider Orthopaedic Surgery
DX: S42.201P Unspecified fracture of upper end of right humerus, subsequent encounter for fracture with malunion (principal)
CPT/HCPCS: 36415; 83036; 85027; 85652; 86140

== ENCOUNTER → 2022-01-06 | Outpatient (CLI) | payer MEDICARE, OTHER, SELFPAY ==
[2020-04-24 10:56] VITALS: BMI 26.7
[2022-01-06 12:22] LABS: Absolute Lymphocyte Count 1.93 X10^3/uL (0.83-4.51); Basophil# 0.02 X10^3/uL; Basophil% 0.3 % (0-1); Eosinophil# 0.25 X10^3/uL; Eosinophils% 3.5 % (0-5); Hematocrit 44.3 % (40-54); Lymphocyte # 1.93 X10^3/ul (0.83-4.51); Lymphocyte % 27.3 % (19-41); Mean Corp Hgb Conc 31.6 g/dL (32-36); Mean Corpuscular Hgb 29.1 pg (27.0-32.0); Mean Corpuscular Volume 92.1 fL (80-94); Mean Platelet Vol. 10.6 fl (6.2-12.0); Monocyte# 0.87 X10^3/uL; Monocyte% 12.3 % (0-10); NRBC Flagged by Analyzer 0 % (0-5); Neutrophil # 3.98 X10^3/uL (2.7-7.7); Neutrophil % 56.2 % (47-70); Platelet Count 249 K/mm3 (150-450); RBC Distribution Width CV 15.1 % (11.6-14.6); RBC Distribution Width SD 51.3 fl (35.1-43.9); Red Blood Count 4.81 M/mm3 (4.6-6.2); White Blood Count 7.1 K/mm3 (4.4-11.0)
[2022-01-06 12:47] LABS: ALB/GLOB Ratio 0.9 RATIO (0.9-2.4); AST(SGOT) 39 U/L (15-37); Alanine Aminotransfer ALT/SGPT 58 U/L (16-61); Albumin, Serum 3.5 g/dL (3.2-5.0); Alkaline Phosphatase 184 U/L (45-117); Anion Gap 9 (5-15); BUN 24 mg/dL (7-18); BUN/Creat Ratio 18.9 RATIO (10-20); Calcium,Total 9.3 mg/dL (8.5-10.1); Chloride 106 mmol/L (98-107); Creatinine, Serum 1.27 mg/dL (0.70-1.30); EST Glomerular Filtration Rate 60 mL/min (>60); Est Glom Filt Rate - Afr Amer 73 mL/min (>60); Ferritin 18 ng/mL (26-388); Globulin 3.7 g/dL (2.2-4.2); Glucose 168 mg/dL (74-106); Iron 55 ug/dL (65-175); Iron Binding Capacity,Total 368 ug/dL (250-450); PERCENT IRON SATURATION 14.9 % (15.0-55.0); Potassium 4.1 mmol/L (3.5-5.1); Protein, Total 7.2 g/dL (6.4-8.2); Sodium Level 140 mmol/L (136-145)
== END | disposition home or self-care (01) ==
LOC: MFPLAB 10:28
PROVIDERS: PCP Family Medicine; Referring Provider Family Medicine; Visit Provider Family Medicine
DX: E61.1 Iron deficiency (principal); E11.9 Type 2 diabetes mellitus without complications
CPT/HCPCS: 36415; 80053; 82728; 83540; 83550; 85025

== ENCOUNTER 2022-01-21 06:27 | Day surgery (SDC) | payer MEDICARE, OTHER, SELFPAY ==
[2020-04-24 10:56] VITALS: BMI 26.7
--- NOTE | 2022-01-21 06:44 | EKG12_ITS ---
Test Reason : PRE OP Blood Pressure : / mmHG Vent. Rate : 057 BPM Atrial Rate : 057 BPM P-R Int : 134 ms QRS Dur : 088 ms QT Int : 418 ms P-R-T Axes : 001 044 043 degrees QTc Int : 406 ms Sinus bradycardia Otherwise normal ECG No previous ECGs available Confirmed by SIRIA STAHL, RANDELL ([id number]), photography editor GREYSON OSPINA ([id number]) on 01/26/2022 10:16:56 A M Referred By: Iván Case Confirmed By:KRIS BEVERLY MD
[2022-01-21] MEDS: Lactated Ringers 1,000 ML 15 ML IV (06:45)
[2022-01-21 07:10] VITALS: BP 124/63; PULSE 58; RESP 16; TEMP 36.2; O2SAT 94; BMI 25.5
[2022-01-21 07:10] LABS: Bedside Glucose 158 mg/dL (74-106)
--- NOTE | 2022-01-21 07:11 | PCM.HP.BLA ---
History and Physical Date of Admission: 01/21/22 TERRI JUNE, is a 66-year-old man With a history of hypertension and recently diagnosed triple-vessel disease for which he was sent for and underwent coronary artery bypass surgery in December 2019. His repeat echocardiogram demonstrated an ejection fraction of 60% with stage I diastolic dysfunction. He presented to the ED with mid abdominal pain Which woke him Out of a sleep at 1 AM this morning, he has never had any symptoms similar to this. Patient denies any chest pain.He did have a couple episodes of nausea vomiting which prompted him to come to the ED. His biochemical work-up did show mildly elevated white blood cell count 11.8 and a lipase of 1323. He had a CT scan abdomen pelvis which showed multiple stones in the gallbladder with a dilated common bile duct. At this time he does not have any abdominal pain. He underwent an ERCP and had multiple stones removed. He did have a biliary stricture which was dilated and stent was placed. He comes back today for a stent removal or exchange. [facility] Medical History (Updated 09/01/21 @ 18:[address] Calle Friend, DO) Atherosclerosis of coronary artery of [place] heart without angina pectoris Bipolar II disorder Cancer Cardiology follow-up encounter CVA (cerebral vascular accident) (2003) Depression Diabetes Diarrhea Elevated LFTs Essential hypertension Former smoker Gastric reflux Gastroparesis GERD (gastroesophageal reflux disease) Gout Hepatitis Hepatitis A History of echocardiogram History of stress test Hyperlipidemia Hypertension Insomnia Irregular heartbeat Irritable bowel Sleep apnea Squamous cell carcinoma Syncope TIA (transient ischemic attack) (2003) Type 2 diabetes mellitus without complication Wears glasses Home Medications aspirin 81 mg tablet,delayed release 81 mg PO DAILY 09/28/19 [History Last Taken 11/20/19] dorzolamide 22.3 mg-timolol 6.8 mg/mL eye drops 1 drp OPHTHALMIC BID 09/28/19 [History Last Taken Unknown] duloxetine 60 mg capsule,delayed release 60 mg PO DAILY cap 10/17/19 [History Last Taken Unknown] metformin 1,000 mg tablet 1,000 mg PO BID tab 10/17/19 [History Last Taken 11/18/19] amlodipine 10 mg tablet 10 mg PO DAILY #90 tab 05/14/20 [Rx Last Taken 05/22/21 07:00] rosuvastatin 40 mg tablet 40 mg PO DAILY tab 05/31/20 [History Last Taken Unknown] metoprolol tartrate 50 mg tablet 75 mg PO BID #270 tab 06/18/21 [Rx Last Taken Unknown] sucralfate 1 gram tablet 1 g PO .QID tab 07/02/21 [History Last Taken Unknown] hydrocodone-acetaminophen [[place]] 1 tab PO Q8H PRN 09/01/21 [History Last Taken Unknown] Allergy/AdvReac Type Severity Reaction Status Date / Time No Known Allergies Allergy Verified 09/01/21 06:05 Family History (Reviewed 07/02/21 @ 09:14 by Karla Lopez INSTRUCTOR [employer], INSTRUCTOR [employer]) Father Colon cancer CAD (coronary artery disease) Mother Gastric ulcer Pacemaker Pulmonary fibrosis Heart disease Surgical History H/O coronary artery bypass surgery (12/15/19) History of cardiac catheterization History of cataract extraction History of colonoscopy (2016) History of esophagogastroduodenoscopy (EGD) History of left heart catheterization (11/20/19) History of tonsillectomy History of wisdom tooth extraction Social History Smoking Status: Former smoker ROS Review of Systems ROS Unobtainable: other Constitutional Constitutional: Denies fatigue, fever(s), poor appetite, weight gain or weight loss ENT HEENT: Denies mouth lesions Respiratory/Chest Respiratory/Chest: Denies change in mental status, change in phlegm color, chest congestion or chest tightness Gastrointestinal Gastrointestinal: Reports bloating and cramping Genitourinary Genitourinary: Denies abdominal discomfort, burning urination or itching Musculoskeletal Musculoskeletal: Reports as per HPI; Denies muscle weakness or myalgias Integumentary Integumentary: Denies jaundice Neurologic Neurologic: Denies lack of coordination or weakness Psychiatric Psychiatric: Denies confusion, depression, memory loss, mood swings, paranoia or suicidal ideation Endocrine Endocrinology: Denies systems reviewed and no addt'l complaints, except as documented Hematologic/Lymphatic Hematologic/Lymphatic: Denies anemia, easy bleeding, easy bruising or lymphadenopathy Allergic/Immunologic Allergic/Immunologic: Denies systems reviewed and no addt'l complaints, except as documented Physical Exam Const alert General Appearance: cooperative Orientation / Consciousness: oriented to person HEENT hearing grossly normal bilaterally Head and Scalp: normal to inspection Face and Sinus: face symmetric Nose: external nose normal Mouth: oral and palatal mucosa normal Eyes conjunctivae normal General Eye: normal appearance of both eyes Neck full ROM General: normal visual inspection Lymph Lymphatic: no lymphadenopathy noted Chest inspection of chest normal and palpation of chest normal Chest: symmetrical chest wall rise Resp normal respiratory effort Effort and Inspection: able to speak in complete sentences Cardio regular rate GI non-distended Percussion: normal to percussion Rectal Exam: deferred Neuro Speech: speech normal Gait (Neuro): normal gait Lab / Micro Data Result Diagrams: 09/01/21 06:08 document embedded image 09/01/21 06:08 document embedded image Labs:Laboratory Results - last 24 hr 09/01/21 06:08: WBC 11.8 H, RBC 4.68, Hgb 13.2, Hct 41.3, MCV 88.2, MCH 28.2, MCHC 32.0, RDW Std Deviation 42.5, RDW Coeff of Lidya 13.4, Plt Count 276, MPV 10.2, Immature Gran % (Auto) 0.400, Neut % (Auto) 80.1 H, Lymph % (Auto) 10.3 L, Upson % (Auto) 7.8, Eos % (Auto) 1.2, Baso % (Auto) 0.2, Absolute Neuts (auto) 9.4 H, Absolute Lymphs (auto) 1.21, Nucleated RBC % 0 09/01/21 06:08: Sodium 139, Potassium 3.4 L, Chloride 106, Carbon Dioxide 26.0, Anion Gap 7, BUN 21 H, Creatinine 1.30, Estim Creat Clear Calc 53.35, Est GFR (MDRD) Af Amer 71, Est GFR (MDRD) Non-Af 58 L, BUN/Creatinine Ratio 16.2, Glucose 236 H, Calcium 9.6, Total Bilirubin 0.60, AST 25, ALT 26, Alkaline Phosphatase 185 H, Total Protein 7.9, Albumin 3.6, Globulin 4.3 H, Albumin/Globulin Ratio 0.8 L, Lipase 1323 H 09/01/21 12:08: POC Glucose 217 H 09/01/21 16:45: POC Glucose 204 H Radiology Impression Abdomen/Pelvis CT 09/01/21 06:13 IMPRESSION: 1. Cholelithiasis with dilated common bile duct. 2. Bilateral nonobstructing renal calculi and renal cysts. Electronically Signed: Nancy Roy MD at 8:04 EST , Service support , Gallbladder Ultrasound 09/01/21 07:51 IMPRESSION: Gallstones. No obvious intrahepatic bile duct dilation. Electronically Signed: Eladio Lilly MD ([place]) at 12:00 EST , Service support , Assessment & Plan Assessment/Plan (1) Acute gallstone pancreatitis: PLAN: He has multiple stones in his gallbladder in the setting of a diet related, bile duct. He does not drink any alcohol. He have to assume that he had choledocholithiasis which led to acute gallstone pancreatitis. ERCP proves previous choledocholithiasis. He will undergo repeat ERCP for stent removal and or exchange of a new stent. Cholangiogram also be performed to make sure there are no retained stones. He was explained alternatives, risk, benefits including not withstanding bleeding, infection, sepsis, perforation, need for emergency to . Have an ASA of 1.
--- NOTE | 2022-01-21 07:35 | RAD_ITS ---
STUDY: ERCP. REASON FOR EXAM: Male, 66 years old. PAIN FLUOROSCOPY TIME (if supplied): ( 46 seconds ) minutes/seconds. 9 images were submitted. TECHNIQUE: An ERCP was performed by the bioinformatician. Imaging was provided. COMPARISON: Comparison is made with prior study dated 09/02/2021. FINDINGS: And luminal stent graft is seen in the common bile duct. The stent is patent. There is mild degree of the central intrahepatic biliary ductal dilatation. RAD/ERCP Biliary Only IMPRESSION: The stent in the common bile duct is patent. Electronically Signed: Rah Ludwig MD at 10:27 EDT ,
--- NOTE | 2022-01-21 08:44 | OP.ERCP_ITS ---
Patient Name: Douglas Callaway Procedure Date: 01/21/2022 8:05 AM Date of : 1955 Age: 66 Procedure: ERCP Indications: Bile leak Providers: Luc Yarbrough DO Medicines: Monitored Anesthesia Care Patient Profile: This is a 66 year old male. Refer to note in patient chart for documentation of history and physical. Patient has symptoms. Complications: No immediate complications. Procedure: Pre-Anesthesia Assessment: - Prior to the procedure, a History and Physical was performed, and patient medications and allergies were reviewed. The patient is competent. The risks and benefits of the procedure and the sedation options and risks were discussed with the patient. All questions were answered and informed consent was obtained. Patient identification and proposed procedure were verified by the physician in the pre-procedure area. Mental Status Examination: alert and oriented. Airway Examination: normal oropharyngeal airway and neck mobility. Respiratory Examination: clear to auscultation. CV Examination: normal. Prophylactic Antibiotics: The patient does not require prophylactic antibiotics. Prior Anticoagulants: The patient has taken no previous anticoagulant or antiplatelet agents. ASA Grade Assessment: II - A patient with mild systemic disease. After reviewing the risks and benefits, the patient was deemed in satisfactory condition to undergo the procedure. The anesthesia plan was to use moderate sedation / analgesia (conscious sedation). Immediately prior to administration of medications, the patient was re-assessed for adequacy to receive sedatives. The heart rate, respiratory rate, oxygen saturations, blood pressure, adequacy of pulmonary ventilation, and response to care were monitored throughout the procedure. The physical status of the patient was re-assessed after the procedure. After obtaining informed consent, the scope was passed under direct vision. Throughout the procedure, the patient's blood pressure, pulse, and oxygen saturations were monitored continuously. The [id number] endoscope was introduced through the mouth, and advanced to the duodenum and used for direct visualization of the bile duct. The ERCP was accomplished without difficulty. The patient tolerated the procedure well. Scope In: 8:16:06 AM Scope Out: 8:33:35 AM Total Procedure Duration Time 0 hours 17 minutes 29 seconds Findings: The casing runner film was normal. The esophagus was successfully intubated under direct vision. The scope was advanced to a normal major papilla in the descending duodenum without detailed examination of the pharynx, larynx and associated structures, and upper GI tract. The upper GI tract was grossly normal. The bile duct was deeply cannulated with the short-nosed traction sphincterotome. Contrast was injected. I personally interpreted the bile duct images. There was brisk flow of contrast through the ducts. Image quality was excellent. Contrast extended to the entire biliary tree. Opacification of the entire opacified area and main bile duct was successful. The maximum diameter of the ducts was 10 mm. The main bile duct contained one covered metal stent. The stent was visibly patent. The entire opacified area and main bile duct contained one temporary stent. The stent was visibly patent. Opacification of the in the biliary system was successful. The maximum diameter of the ducts was 7 mm. The biliary tree was otherwise normal. Opacification of the in the biliary system was successful. The maximum diameter of the ducts was 10 mm. A straight Roadrunner wire was passed into the biliary tree. A 5 mm biliary sphincterotomy was made with a traction (standard) sphincterotome using ERBE electrocautery. There was no post-sphincterotomy bleeding. The biliary tree was swept with a 15 mm balloon starting at the bifurcation. Sludge was swept from the duct. A standard esophagogastroduodenoscopy scope was used for the examination of the upper gastrointestinal tract. The scope was passed under direct vision through the upper GI tract. A large amount of food (residue) was found in the entire examined stomach. Impression: - A large amount of food (residue) in the stomach. - Presence of biliary stent. This was found to be patent. - Presence of biliary stent. This was found to be patent. - A biliary sphincterotomy was performed. - The biliary tree was swept and sludge was found. Recommendation: Repeat ERCP in approximately 2 months after a gastric emptying study was performed. Procedure Code(s): --- Professional --- 10644, Endoscopic retrograde cholangiopancreatography (ERCP); with removal of calculi/debris from biliary/pancreatic duct(s) 63859, Endoscopic retrograde cholangiopancreatography (ERCP); with sphincterotomy/papillotomy 78374, Endoscopic catheterization of the biliary ductal system, radiological supervision and interpretation CPT copyright 2017 [employer]. All rights reserved. The codes documented in this report are preliminary and upon metal polisher and buffer apprentice review may be revised to meet current compliance requirements. Luc Yarbrough DO 01/21/2022 8:44:11 AM This report has been signed electronically. Number of Addenda: 0 Note Initiated On: 01/21/2022 8:05 AM
[2022-01-21 08:45] VITALS: BP 124/63; BP 95/53; PULSE 65; RESP 16; TEMP 37.4; O2SAT 100
--- NOTE | 2022-01-21 08:45 | OP.CCLET_ITS ---
01/21/2022 Iván Case [address] [place] [address] [place] [address] Re : ERCP procedure for Douglas Callaway Dear Dr. Case This procedure was performed on Friday, January 21, 2022. My impressions and recommendations are as follows: Impressions : - A large amount of food (residue) in the stomach. - Presence of biliary stent. This was found to be patent. - Presence of biliary stent. This was found to be patent. - A biliary sphincterotomy was performed. - The biliary tree was swept and sludge was found. Recommendations : Repeat ERCP in approximately 2 months after a gastric emptying study was performed. My findings are described in the full procedure note, which is enclosed. If I can be of further assistance, please feel free to contact me at . Sincerely, Luc Yarbrough DO 01/21/2022 8:44:11 AM This report has been signed electronically.
[2022-01-21 09:00] VITALS: BP 124/63; BP 90/52; PULSE 69; RESP 16; O2SAT 100
[2022-01-21 09:15] VITALS: BP 103/60; BP 124/63; PULSE 69; RESP 16; O2SAT 92
[2022-01-21 09:23] VITALS: BP 103/60; BP 124/63; PULSE 61; RESP 16; TEMP 37; O2SAT 92
== END 2022-01-21 10:17 | disposition home or self-care (01) ==
LOC: EN 06:27 → AC 06:29
PROVIDERS: PCP Family Medicine; Referring Provider Family Medicine; Visit Provider Internal Medicine Gastroenterology
PROC: (CPT 43260; principal; 2022-01-21 07:05)
DX: K85.10 Biliary acute pancreatitis without necrosis or infection (principal); F31.81 Bipolar II disorder; E11.9 Type 2 diabetes mellitus without complications; Z79.82 Long term (current) use of aspirin; I10 Essential (primary) hypertension; I25.10 Atherosclerotic heart disease of native coronary artery without angina pectoris; E78.5 Hyperlipidemia, unspecified; Z79.84 Long term (current) use of oral hypoglycemic drugs; Z79.899 Other long term (current) drug therapy; Z86.73 Personal history of transient ischemic attack (TIA), and cerebral infarction without residual deficits; Z87.891 Personal history of nicotine dependence; Z95.1 Presence of aortocoronary bypass graft
CPT/HCPCS: 43264; 43262; 74328; 76000; 82962; 93005; J7120; J2405

== ENCOUNTER 2022-01-30 20:55 | Emergency (ER) | payer MEDICARE, OTHER, SELFPAY ==
[2020-04-24 10:56] VITALS: BMI 26.7
[2022-01-30 20:57] VITALS: BP 121/61; PULSE 65; RESP 18; TEMP 36.7; O2SAT 96; BMI 24.3
--- NOTE | 2022-01-30 21:28 | EX.ED.UPPERE ---
HPI History of Present Illness Chief Complaint: Wound Check Narrative Narrative: 66-year-old male status post right shoulder surgery 02/16/2022 at [facility] presenting with some bleeding from the inferior aspect of his surgical wound on the right shoulder. He states there is no increased pain or swelling. He denies any injury. He states it started bleeding yesterday and he was able to talk to his surgeon at [facility]. He was counseled to discontinue aspirin and since then it had not bled until today. He describes it as minor bleeding. He has been applying direct pressure and it still weeping. He is not on any other anticoagulation. [facility] Medical History Acute cholecystitis due to biliary calculus Acute gallstone pancreatitis Atherosclerosis of coronary artery of [place] heart without angina pectoris Bipolar II disorder Cancer Cardiology follow-up encounter Common bile duct dilatation CPAP (continuous positive airway pressure) dependence CVA (cerebral vascular accident) (2003) Depression Diabetes Diarrhea Elevated LFTs Essential hypertension Former smoker Gastric reflux Gastroparesis GERD (gastroesophageal reflux disease) Gout Hepatitis Hepatitis A History of echocardiogram History of stress test Hyperlipidemia Hypertension Insomnia Irregular heartbeat Irritable bowel Sleep apnea Squamous cell carcinoma Syncope TIA (transient ischemic attack) (2003) Type 2 diabetes mellitus without complication Wears glasses Home Medications dorzolamide 22.3 mg-timolol 6.8 mg/mL eye drops 1 drp OPHTHALMIC BID 09/28/19 [History Last Taken Unknown] duloxetine 60 mg capsule,delayed release 60 mg PO DAILY cap 10/17/19 [History Last Taken Unknown] rosuvastatin 40 mg tablet 40 mg PO DAILY tab 05/31/20 [History Last Taken Unknown] metoprolol tartrate 50 mg tablet 75 mg PO BID #270 tab 06/18/21 [Rx Last Taken 01/21/22] metformin 1,000 mg PO BID #0 tab 09/04/21 [Rx Last Taken 11/18/19] oxycodone-acetaminophen [Percocet] 1 - 2 tab PO Q6H PRN 3 Days #14 tab 09/04/21 [Rx Last Taken Unknown] amlodipine 10 mg tablet 10 mg PO DAILY #90 tab 09/17/21 [Rx Last Taken 01/21/22] aspirin 325 mg PO DAILY 01/19/22 [History Last Taken 01/28/22] Allergy/AdvReac Type Severity Reaction Status Date / Time No Known Allergies Allergy Verified 01/30/22 20:57 Family History Father Colon cancer CAD (coronary artery disease) Mother Gastric ulcer Pacemaker Pulmonary fibrosis Heart disease Surgical History H/O coronary artery bypass surgery (12/15/19) History of cardiac catheterization History of cataract extraction History of colonoscopy (2016) History of ERCP History of esophagogastroduodenoscopy (EGD) History of left heart catheterization (11/20/19) History of surgery on arm History of tonsillectomy History of wisdom tooth extraction S/P laparoscopic cholecystectomy Social History Smoking Status: Former smoker ROS ROS ED Constitutional Constitutional ED: Denies chills or fever(s) Eyes Eyes: Denies blurry vision or diplopia ENT ENT ED: Denies rhinorrhea or sore throat Cardiovascular Cardiovascular: Denies chest pain or palpitations Respiratory/Chest Respiratory/Chest: Denies cough or dyspnea Gastrointestinal Gastrointestinal: Denies abdominal pain or nausea Genitourinary Genitourinary ED: Denies dysuria or hematuria Musculoskeletal Musculoskeletal: Denies myalgias or neck pain Integumentary Reports other Details: Mild bleeding/weeping surgical wound right shoulder Neurologic Neurologic: Denies headache(s) or weakness EXAM Physical Exam Const Vital Signs: 01/30/22 20:57 Temperature 98.1 F Temperature Source Temporal Pulse Rate 65 Respiratory Rate 18 Blood Pressure 121/61 H Blood Pressure Mean 81 Pulse Ox 96 Oxygen Delivery Method Room Air Positive well nourished General Appearance ED: NAD HEENT Reports moist mucous membranes normocephalic and atraumatic Eyes PERRL and EOMs intact bilaterally Resp normal respiratory effort and clear to auscultation bilaterally Cardio regular rate and regular rhythm Extremity Extremity Narrative: Surgical scar on the anterior proximal humerus and shoulder appears to be well approximated and healing well with exception of the inferior aspect which is still well approximated however there is slight weeping from the site. No significant tenderness, crepitance. No pain with short arc range of motion. No cellulitic change. Psych mental status grossly normal Skin Skin Narrative: As documented above MDM MDM MDM Narrative Medical decision making narrative: Surgif[place]am with dressing with compression with Morgan wrap placed over the wound. Patient was monitored in the ER to make sure this was adequate. I will give him a couple of ABDs and Surgifoam gauze for home. He will continue to apply direct pressure. He will change his dressing twice a day. Patient will continue to hold his aspirin. Patient to follow-up with [facility]. Impression: 1. Postop wound check? Lab Data Attestation: I reviewed the patient's lab results. Discharge Plan Triage Chief Complaint: Wound Check ED Provider: Masood Arreola Dx/Rx/DC Orders Prescriptions: No Action dorzolamide-timolol [Cosopt] 22.3-6.8 mg/mL drops 1 drp OPHTHALMIC BID RF: 0 duloxetine 60 mg capsule,delayed release(DR/EC) 60 mg PO DAILY RF: 0 rosuvastatin 40 mg tablet 40 mg PO DAILY RF: 0 oxycodone-acetaminophen [Percocet] 5-325 mg tablet 1 - 2 tab PO Q6H PRN (Reason: pain) 3 Days Qty: 14 RF: 0 metformin 1,000 mg tablet 1,000 mg PO BID Qty: 0 RF: 0 aspirin 325 mg Tablet 325 mg PO DAILY RF: 0 metoprolol tartrate 50 mg tablet 75 mg PO BID Qty: 270 RF: 4 amlodipine 10 mg tablet 10 mg PO DAILY Qty: 90 RF: 4 Primary Care Provider: Iván Case
[2022-01-30 21:44] VITALS: BP 117/69; PULSE 70; RESP 15
[2022-01-30 21:51] VITALS: BP 117/69; PULSE 70; RESP 15
== END 2022-01-30 21:51 | disposition home or self-care (01) ==
PROVIDERS: Emergency Provider Student in an Organized Health Care Education/Training Program; PCP Family Medicine; Visit Provider Student in an Organized Health Care Education/Training Program
DX: Z48.01 Encounter for change or removal of surgical wound dressing (principal); E11.9 Type 2 diabetes mellitus without complications; I25.10 Atherosclerotic heart disease of native coronary artery without angina pectoris; I10 Essential (primary) hypertension; E78.5 Hyperlipidemia, unspecified; K21.9 Gastro-esophageal reflux disease without esophagitis; Z79.84 Long term (current) use of oral hypoglycemic drugs; Z79.82 Long term (current) use of aspirin; Z79.899 Other long term (current) drug therapy; Z87.891 Personal history of nicotine dependence; Z95.1 Presence of aortocoronary bypass graft
CPT/HCPCS: 99282

== ENCOUNTER → 2022-02-12 | Outpatient (CLI) | payer MEDICARE, OTHER, SELFPAY ==
[2020-04-24 10:56] VITALS: BMI 26.7
[2022-02-12 15:08] LABS: Absolute Lymphocyte Count 1.81 X10^3/uL (0.83-4.51); Absolute Neutrophil Count 4.1 X10^3/uL (2.0-7.7); Basophil# 0.02 X10^3/uL; Basophil% 0.3 % (0-1); Eosinophils% 4.2 % (0-5); Hematocrit 40.4 % (40-54); Hemoglobin 12.4 g/dL (13.0-16.5); Lymphocyte # 1.81 X10^3/ul (0.83-4.51); Lymphocyte % 25.2 % (19-41); Mean Corp Hgb Conc 30.7 g/dL (32-36); Mean Corpuscular Hgb 29.7 pg (27.0-32.0); Mean Corpuscular Volume 96.7 fL (80-94); Mean Platelet Vol. 10.3 fl (6.2-12.0); Monocyte# 0.94 X10^3/uL; Monocyte% 13.1 % (0-10); NRBC Flagged by Analyzer 0 % (0-5); Neutrophil # 4.09 X10^3/uL (2.7-7.7); Neutrophil % 56.9 % (47-70); Platelet Count 280 K/mm3 (150-450); RBC Distribution Width CV 15.4 % (11.6-14.6); Red Blood Count 4.18 M/mm3 (4.6-6.2); White Blood Count 7.2 K/mm3 (4.4-11.0)
[2022-02-12 15:25] LABS: Hemoglobin A1c 6.1 % (3.8-5.6)
[2022-02-12 15:32] LABS: Vitamin D,25 Hydroxy 52.2 ng/mL
[2022-02-12 15:44] LABS: Microalbumin:Creatinine Ratio 236.5 mg/g CRE (<30 mg/g CRE)
[2022-02-12 17:15] LABS: AST(SGOT) 29 U/L (15-37); Alanine Aminotransfer ALT/SGPT 35 U/L (16-61); Albumin, Serum 3.4 g/dL (3.2-5.0); Alkaline Phosphatase 173 U/L (45-117); Anion Gap 5 (5-15); BUN 25 mg/dL (7-18); BUN/Creat Ratio 19.1 RATIO (10-20); Calcium,Total 9.8 mg/dL (8.5-10.1); Chloride 102 mmol/L (98-107); Cholesterol 99 mg/dL (200); Creatinine, Serum 1.31 mg/dL (0.70-1.30); EST Glomerular Filtration Rate 58 mL/min (>60); Est Glom Filt Rate - Afr Amer 70 mL/min (>60); Ferritin 52 ng/mL (26-388); Globulin 3.5 g/dL (2.2-4.2); Glucose 120 mg/dL (74-106); High Density Lipoprotein 40 mg/dL; Iron 47 ug/dL (65-175); Iron Binding Capacity,Total 362 ug/dL (250-450); Potassium 4.4 mmol/L (3.5-5.1); Protein, Total 6.9 g/dL (6.4-8.2); Sodium Level 138 mmol/L (136-145); Triglycerides 195 mg/dL; Very Low Density Lipoprotein 39 mg/dL (5-40)
== END | disposition home or self-care (01) ==
LOC: MFPLAB 11:26
PROVIDERS: PCP Family Medicine; Referring Provider Family Medicine; Visit Provider Family Medicine
DX: E11.9 Type 2 diabetes mellitus without complications (principal); E55.9 Vitamin D deficiency, unspecified; E61.1 Iron deficiency
CPT/HCPCS: 36415; 80053; 80061; 82043; 82306; 82570; 82728; 83036; 83540; 83550; 85025

== ENCOUNTER 2022-04-20 16:30 | Outpatient (RCR) | payer MEDICARE, OTHER, SELFPAY ==
[2020-04-24 10:56] VITALS: BMI 26.7
--- NOTE | 2022-02-04 10:55 | HP.PTEVAL_ITS ---
Patient's Visit Information TERRI JUNE Jr. is a 66 year old M referred to Physical Therapy by Dr. Vamsi Paul MD with a diagnosis of S/P rev TSA 01/16/22. Date of Evaluation: 02/04/22 Physical Therapist: Colton Brown, DPT, OCS, CSCS - Visit Plan Frequency: 2x /Week Duration: 2 Months Plan: 2x/week for 8 weeks for. PROM this week. AAROM start 02/09 to aROM by 02/24 as able. strength per protocol in March. ice and scar massage as needed, progress HEP. protocol limits ext rotation to 30 and elevation to 130 until around 02/09, see folder protocol, strengthen specific around 03/01 and weight training in April - Subjective 01/16 had reverse TSA following broken arm last April 27 with a fall(not balance related, due to gastroparesis). Had tried pins and plates in may but it did not resolve correctly. Painful and could not move. This surgery went well. Incision bled last week so delayed PT. Was on aspirin to prevent clots which may have caused that. Was in ER last week with bleeding shoulder. Now it is resolved. In sling last 2.5 weeks except for last few nights. Was sleeping in recliner but now in bed but was having a lot of trouble sleeping prior to going back to bed. pain is about 4/10 on bad day and is persistent. Always present. Has some short times when he feels OK at rest. Spends a lot of time in recliner. Doing pendulum daily. Uses shoulder ice machine much of time until a couple days ago. 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 Basic ADLs are getting done with dressing difficulty and spends day in pajamas often. Can take a shower but it hurts and he avoids it. bathroom is Ok. He is L handed for the most part. Hobbies include writing on keyboard which he cannot do right now. Enjoys gardening but not doing that due to shoulder. - Pain R shoulder Pain Intensity (Out of 10): 2 Pain Intensity Range: 0, 4 - Objective Patient ambulates into PT with sling on and dons and doffs it I. Fair posture but protracted scap and some kyphosis in T/S. Incision is mostly healed and dry anterior R shoulder. mild scar tissue palpable underneath. PROM R shoulder flexion 120 and abd 105 and ext rotation at 20 today, IR not tested, strength not tested due to protocol precautions. elbow, scapular and neck and wrist AROM WFL and full and without excessive pain. - Balance/Special Test Scores Quick DASH Score: 70.4525 - Goals Goal 1:: progress per protocol to full activity of typing and gardening Goal Time Frame: 6-8 Weeks Goal 2:: Pt feel 90% back to normal Goal Time Frame: 6-8 Weeks Goal 3:: 150 aROM and 45 ext rotation without pain as allowed by protocol Goal Time Frame: 4-6 Weeks Goal 4:: I appropriate strength ex for HEP Goal Time Frame: 6-8 Weeks Goal 5:: qucik dash score 20 or better. Goal Time Frame: 6-8 Weeks - Rehabilitation Potential Physical Therapy Diagnosis: s/p rev TSA Rehabilitation Potential: Good - Anticipated Interventions Patient/Client Instruction: Educate patient on: Condition, Plan of Care For the Purpose of:: To decrease pain, To increase ROM, To improve muscle performance and motor function, To increase tolerance to activity/conditio n/position Therapeutic Exercise to Include: Strength training, Postural training, Flexibilty training, Passive ROM, Active ROM For the Purpose of:: To decrease pain, To increase ROM, To improve muscle performance and motor function Manual Therapy Techniques to Include: Scar massage, Mobilization, Passive ROM, Soft tissue mobilization For the Purpose of:: To decrease pain, To increase ROM Cryotherapy (ice pack, ice massage): Yes For the Purpose of:: To decrease swelling/inflammation Thank you for the opportunity to evaluate your patient. For Medicare and Medicare HMO plans, please review the plan of care and approve it. It will need to be FAXED BACK to us at [phone] for Medicare purposes. For Medicare only, by signing this I certify the plan of care. Please let me know if there are questions or concerns regarding this plan of care. Physician Signature: Date:
--- NOTE | 2022-06-15 12:33 | HP.PT.NRP ---
TERRI MCDONNELLMONTRELL Tsai was seen in my office for initial evaluation on 02/04/22. The following Plan of Care was established for this patient: Initial Frequency: 2x /Week Initial Duration: 2 Months Patient/Client Instruction: Educate patient on: Condition, Plan of Care For the Purpose of:: To decrease pain, To increase ROM, To improve muscle performance and motor function, To increase tolerance to activity/condition/position Therapeutic Exercise to Include: Strength training, Postural training, Flexibilty training, Passive ROM, Active ROM For the Purpose of:: To decrease pain, To increase ROM, To improve muscle performance and motor function Manual Therapy Techniques to Include: Scar massage, Mobilization, Passive ROM, Soft tissue mobilization For the Purpose of:: To decrease pain, To increase ROM Cryotherapy (ice pack, ice massage): Yes For the Purpose of:: To decrease swelling/inflammation This patient was last seen in our office 04/20/22. Pertinent comments regarding their Physical therapy will appear below: Pt seen 11 visits but had been a number of weeks since attending at his last attended visit and he was to see doctor shortly after that visit. He did not schedule or attend any further visits including his recheck. It has been almost two months and I will discontinue due to nonattendance. At this point I will be discontinuing this patient from physical therapy. I would be happy to see this patient again in the future if found appropriate by the physician. Thank you! Colton Brown, DPT, OCS, CSCS Balance/Gait/Functional tests - Balance/Special Test Scores Quick DASH Score: 70.4559
== END 2022-04-20 19:00 | disposition home or self-care (01) ==
LOC: PT 16:30
PROVIDERS: PCP Family Medicine; Referring Provider Family Medicine; Visit Provider Family Medicine
DX: Z47.1 Aftercare following joint replacement surgery (principal); Z96.611 Presence of right artificial shoulder joint
CPT/HCPCS: 97110; 97140; 97161

== ENCOUNTER 2022-07-02 12:30 | Outpatient (RCR) | payer MEDICARE, OTHER, SELFPAY ==
[2020-04-24 10:56] VITALS: BMI 26.7
--- NOTE | 2022-06-18 11:48 | HP.PTEVAL_ITS ---
Patient's Visit Information TERRI JUNE Jr. is a 67 year old M referred to Physical Therapy by JENNIFER CARDENAS with a diagnosis of s/p R rev TSA dos 04/24/22. Date of Evaluation: 06/18/22 Physical Therapist: Colton Brown, DPT, OCS, CSCS - Visit Plan Frequency: 1-2x /Week Duration: 3 Months Plan: 1-2x/week for 8-12 weeks as needed for. PROM, aA-AROM, strength per protocol, progressing HEP. ice as needed. Pt doing very well today with PROM per order. phase 1 PROM til 06/20 (30 ext rot adn 120 elelvation limitss). phase 2 AAROM AROM til 07/13. phase 3 after 07/13. Next session AAROM and isometrics - Subjective R sided Reverse TSA in January. April 23 found that it seperated and was still painful so had a bigger ball and socket put in 04/24/22. Over 6 weeks ago, he wanted to hold on therapy. Was in sling for 6 weeks and out for a week. pain level is moderate and better than last time. 0-3/10. It keeps him up at night though, hurts more lying and rolling to R side and it will wake him up. Sleeping in bed. Slept in recliner for a while. HEP: pendulum, PROM elevation going OK. Retired. Basic ADLs, getting done on his own with L UE, He is L handed. Hobbies: wants to work on doing daily household activities like moving boxes and house hold repairs and wants to use keyboard on computer. - Pain R shoulder Pain Intensity (Out of 10): 3 Pain Intensity Range: 0, 3 - Objective Walks normal and safe without issues into PT with good balance. bed and chair transfers are I. Cervical AROM WFL and without pain, symmetrical. Scapular AROM WFL and symmetrical without increased pain. Elbow B AROM fulla nd symmetrical. wrist and hand also move symmetrically and without pain B. L shoulder WFL. R shoulder PROM per script flexion 141, abduction 140, ext rotation 75, IR 55. Very good PROM R UE today much better than expected and very little discomfort. Incision is healed well and dry, no excessive redness or heat or swelling. Doing wall PROM helping with L UE, pendulum. - Balance/Special Test Scores Quick DASH Score: 52.2725 - Goals Goal 1:: maintain PROM and progress to AROM as tolerated without increased pain. Goal Time Frame: 2-4 Weeks Goal 2:: LT: Lift arm OH and type on computer without pain or problems Goal Time Frame: 6-8 Weeks Goal 3:: Pt feel 80% back to normal activity Goal Time Frame: 8-12 Weeks Goal 4:: i management of condition Goal Time Frame: 8-12 Weeks Goal 5:: Quickdash score 15 or better Goal Time Frame: 8-12 Weeks - Rehabilitation Potential Physical Therapy Diagnosis: s/p R rev TSA Rehabilitation Potential: Good - Anticipated Interventions Patient/Client Instruction: Educate patient on: Condition, Plan of Care For the Purpose of:: To decrease pain, To increase ROM, To improve muscle performance and motor function, To increase tolerance to activity/condition/position, To improve ability of physical actions for home/community/work/leisure Therapeutic Exercise to Include: Strength training, Postural training, Flexibilty training, Passive ROM, Active ROM For the Purpose of:: To decrease pain, To increase ROM, To improve muscle performance and motor function, To increase tolerance to activity/condition/position, To improve ability of physical actions for home/community/work/leisure Cryotherapy (ice pack, ice massage): Yes For the Purpose of:: To decrease swelling/inflammation Thank you for the opportunity to evaluate your patient. For Medicare and Medicare HMO plans, please review the plan of care and approve it. It will need to be FAXED BACK to us at [phone] for Medicare purposes. For Medicare only, by signing this I certify the plan of care. Please let me know if there are questions or concerns regarding this plan of care. Physician Signature: ___Date:
--- NOTE | 2022-11-17 15:31 | HP.PTDCNRP_ITS ---
TERRI JUNE was seen in my office for initial evaluation on 06/18/22. The following Plan of Care was established for this patient: Initial Frequency: 1-2x /Week Initial Duration: 3 Months Patient/Client Instruction: Educate patient on: Condition, Plan of Care For the Purpose of:: To decrease pain, To increase ROM, To improve muscle performance and motor function, To increase tolerance to activity/condition/position, To improve ability of physical actions for home/co mmunity/work/leisure Therapeutic Exercise to Include: Strength training, Postural training, Flexibilty training, Passive ROM, Active ROM For the Purpose of:: To decrease pain, To increase ROM, To improve muscle performance and motor function, To increase tolerance to activity/condition/position, To improve ability of physical actions for home/community/work/leisure Cryotherapy (ice pack, ice massage): Yes For the Purpose of:: To decrease swelling/inflammation This patient was last seen in our office 07/02/22. Pertinent comments regarding their Physical therapy will appear below: Pt seen 3 visits of POC and was proceeding nicely. He called 2 weeks later to cancel all appointments as he had a stress fracture in his shoulder and he would call if/when he needed to return. At this point, it has been 3+ months since attendance. I will discontinue due to nonattendance. At this point I will be discontinuing this patient from physical therapy. I would be happy to see this patient again in the future if found appropriate by the physician. Thank you! Colton Brown, DPT, OCS, CSCS Balance/Gait/Functional tests - Balance/Special Test Scores Quick DASH Score: 52.2728
== END 2022-07-02 19:00 | disposition home or self-care (01) ==
LOC: PT 12:30
PROVIDERS: PCP Family Medicine
DX: Z47.1 Aftercare following joint replacement surgery (principal); Z96.611 Presence of right artificial shoulder joint
CPT/HCPCS: 97110; 97161

== ENCOUNTER → 2022-07-16 | Outpatient (CLI) | payer MEDICARE, OTHER, SELFPAY ==
[2020-04-24 10:56] VITALS: BMI 26.7
[2022-07-16 15:20] LABS: Absolute Lymphocyte Count 1.82 X10^3/uL (0.83-4.51); Absolute Neutrophil Count 4.5 X10^3/uL (2.0-7.7); Basophil# 0.02 X10^3/uL; Basophil% 0.3 % (0-1); Eosinophil# 0.22 X10^3/uL; Eosinophils% 2.9 % (0-5); Hematocrit 42.4 % (40-54); Hemoglobin 13.9 g/dL (13.0-16.5); Lymphocyte # 1.82 X10^3/ul (0.83-4.51); Lymphocyte % 23.9 % (19-41); Mean Corp Hgb Conc 32.8 g/dL (32-36); Mean Corpuscular Hgb 30.8 pg (27.0-32.0); Mean Platelet Vol. 10.6 fl (6.2-12.0); Monocyte# 1.02 X10^3/uL; Monocyte% 13.4 % (0-10); NRBC Flagged by Analyzer 0 % (0-5); Neutrophil # 4.45 X10^3/uL (2.7-7.7); Neutrophil % 58.6 % (47-70); Platelet Count 214 K/mm3 (150-450); RBC Distribution Width CV 13.4 % (11.6-14.6); RBC Distribution Width SD 45.5 fl (35.1-43.9); Red Blood Count 4.51 M/mm3 (4.6-6.2); White Blood Count 7.6 K/mm3 (4.4-11.0)
[2022-07-16 15:47] LABS: Vitamin D,25 Hydroxy 54.5 ng/mL
[2022-07-16 15:54] LABS: ALB/GLOB Ratio 0.9 RATIO (0.9-2.4); AST(SGOT) 23 U/L (15-37); Alanine Aminotransfer ALT/SGPT 29 U/L (16-61); Albumin, Serum 3.2 g/dL (3.2-5.0); Alkaline Phosphatase 186 U/L (45-117); Anion Gap 7 (5-15); BUN 15 mg/dL (7-18); BUN/Creat Ratio 12.4 RATIO (10-20); Calcium,Total 8.9 mg/dL (8.5-10.1); Chloride 103 mmol/L (98-107); Cholesterol 95 mg/dL (200); Creatinine, Serum 1.21 mg/dL (0.70-1.30); EST Glomerular Filtration Rate 63 mL/min (>60); Est Glom Filt Rate - Afr Amer 77 mL/min (>60); Ferritin 38 ng/mL (26-388); Globulin 3.4 g/dL (2.2-4.2); Glucose 202 mg/dL (74-106); Hemoglobin A1c 6.6 % (3.8-5.6); High Density Lipoprotein 47 mg/dL; Iron 73 ug/dL (65-175); Iron Binding Capacity,Total 329 ug/dL (250-450); PERCENT IRON SATURATION 22.2 % (15.0-55.0); Potassium 4.3 mmol/L (3.5-5.1); Protein, Total 6.6 g/dL (6.4-8.2); Sodium Level 139 mmol/L (136-145); Thyroid Stim Hormone (TSH) 2.96 uIU/mL (0.358-3.74); Triglycerides 165 mg/dL; Very Low Density Lipoprotein 33 mg/dL (5-40)
[2022-07-16 16:16] LABS: Microalbumin:Creatinine Ratio 262.9 mg/g CRE (<30 mg/g CRE)
== END | disposition home or self-care (01) ==
LOC: MFPLAB 13:54
PROVIDERS: PCP Family Medicine; Referring Provider Family Medicine; Visit Provider Family Medicine
DX: E11.9 Type 2 diabetes mellitus without complications (principal); E61.1 Iron deficiency; E55.9 Vitamin D deficiency, unspecified
CPT/HCPCS: 36415; 80053; 80061; 82043; 82306; 82570; 82728; 83036; 83540; 83550; 84443; 85025

== ENCOUNTER → 2022-07-28 | Outpatient (CLI) | payer MEDICARE, OTHER, SELFPAY ==
[2020-04-24 10:56] VITALS: BMI 26.7
--- NOTE | 2022-07-28 15:56 | BD_ITS ---
STUDY: DUAL ENERGY X-RAY ABSORPTIOMETRY / DXA REASON FOR EXAM: Male, 67 years old. M8.89 TECHNIQUE: Bone Mineral Density (BMD) measurements of lumbar spine and bilateral hips were obtained. COMPARISON: None. FINDINGS: Lumbar Spine (L1-L4): g/cm2 (0.989) / T-score (-0.9) / Z-score (-0.1) Findings are suggestive of normal bone density with a low fracture risk. Left Femur Total: g/cm2 (0.712) / T-score (-2.1) / Z-score (-1.5) Left Femoral Neck: g/cm2 (0.587) / T-score (-2.5) / Z-score (-1.4) Right Femur Total: g/cm2 (0.729) / T-score (-2.0) / Z-score (-1.4) Right Femoral Neck: g/cm2 (0.632) / T-score (-2.2) / Z-score (-1.1) BD/Dexa Bone Density Study IMPRESSION: The patient is considered osteopenic as outlined below according to World [place] Organization (WHO) criteria with a high fracture risk. Reference Information: The T-score is the number of standard deviations above or below the standard which is normal for young adults at their peak bone mineral density. The World Health Organization (WHO) interprets the T-scores as follows: Above -1 Normal bone density Between -1 and -2.5 Osteopenia Equal to / or below -2.5 Osteoporosis As a practical clinical guideline, osteopenia may be graded as follows: Mild -1 through -1.5 Moderate -1.6 through -2.0 Severe -2.1 through -2.4 The Z-score is the number of standard deviations above or below age-matched controls. A Z-score of less than -1.5 would be considered abnormal. References: 1. NIH Osteoporosis and Related Bone Diseases www osteo.org 2. International Society for Clinical Densitometry www iscd.org 3. National Osteoporosis Foundation www nof.org Electronically Signed: Rah Ludwig MD at 10:51 EST ,
== END | disposition home or self-care (01) ==
LOC: OPBD 15:47
PROVIDERS: PCP Family Medicine; Visit Provider Family Medicine
DX: M85.89 Other specified disorders of bone density and structure, multiple sites (principal)
CPT/HCPCS: 77080

== ENCOUNTER → 2022-12-15 | Outpatient (CLI) | payer MEDICARE, OTHER, SELFPAY ==
[2020-04-24 10:56] VITALS: BMI 26.7
[2022-12-15 17:46] LABS: Absolute Lymphocyte Count 1.53 X10^3/uL (0.83-4.51); Basophil# 0.03 X10^3/uL; Basophil% 0.4 % (0-1); Eosinophil# 0.17 X10^3/uL; Eosinophils% 2.2 % (0-5); Hemoglobin 13.3 g/dL (13.0-16.5); Lymphocyte # 1.53 X10^3/ul (0.83-4.51); Lymphocyte % 19.8 % (19-41); Mean Corp Hgb Conc 31.7 g/dL (32-36); Mean Corpuscular Hgb 30.9 pg (27.0-32.0); Mean Corpuscular Volume 97.4 fL (80-94); Mean Platelet Vol. 10.3 fl (6.2-12.0); Monocyte# 0.97 X10^3/uL; Monocyte% 12.5 % (0-10); NRBC Flagged by Analyzer 0 % (0-5); Neutrophil # 4.99 X10^3/uL (2.7-7.7); Neutrophil % 64.6 % (47-70); Platelet Count 233 K/mm3 (150-450); RBC Distribution Width CV 12.9 % (11.6-14.6); RBC Distribution Width SD 46.3 fl (35.1-43.9); Red Blood Count 4.31 M/mm3 (4.6-6.2); White Blood Count 7.7 K/mm3 (4.4-11.0)
[2022-12-15 18:44] LABS: Vitamin D,25 Hydroxy 46.7 ng/mL
[2022-12-15 18:58] LABS: AST(SGOT) 40 U/L (15-37); Alanine Aminotransfer ALT/SGPT 52 U/L (16-61); Albumin, Serum 3.2 g/dL (3.2-5.0); Alkaline Phosphatase 140 U/L (45-117); Anion Gap 5 (5-15); BUN 27 mg/dL (7-18); BUN/Creat Ratio 20.9 RATIO (10-20); Calcium,Total 8.5 mg/dL (8.5-10.1); Chloride 104 mmol/L (98-107); Cholesterol 79 mg/dL (200); Creatinine, Serum 1.29 mg/dL (0.70-1.30); EST Glomerular Filtration Rate 59 mL/min (>60); Est Glom Filt Rate - Afr Amer 71 mL/min (>60); Ferritin 34 ng/mL (26-388); Globulin 3.2 g/dL (2.2-4.2); Glucose 155 mg/dL (74-106); High Density Lipoprotein 44 mg/dL; Iron 66 ug/dL (65-175); Iron Binding Capacity,Total 335 ug/dL (250-450); PERCENT IRON SATURATION 19.7 % (15.0-55.0); Potassium 4.2 mmol/L (3.5-5.1); Protein, Total 6.4 g/dL (6.4-8.2); Sodium Level 137 mmol/L (136-145); Triglycerides 154 mg/dL; Very Low Density Lipoprotein 31 mg/dL (5-40)
[2022-12-15 19:34] LABS: Hemoglobin A1c 6.4 % (3.8-5.6)
== END | disposition home or self-care (01) ==
LOC: MFPLAB 17:01
PROVIDERS: PCP Family Medicine; Referring Provider Family Medicine; Visit Provider Family Medicine
DX: E61.1 Iron deficiency (principal); E11.9 Type 2 diabetes mellitus without complications; E55.9 Vitamin D deficiency, unspecified
CPT/HCPCS: 36415; 80053; 80061; 82306; 82728; 83036; 83540; 83550; 85025

== ENCOUNTER 2022-12-17 16:21 | Outpatient (CLI) | payer MEDICARE, OTHER, SELFPAY ==
[2020-04-24 10:56] VITALS: BMI 26.7
[2022-12-17 18:19] LABS: Microalbumin:Creatinine Ratio 272.9 mg/g CRE (<30 mg/g CRE)
== END 2022-12-17 23:59 | disposition home or self-care (01) ==
LOC: MFPLAB 16:22
PROVIDERS: PCP Family Medicine; Referring Provider Family Medicine; Visit Provider Family Medicine
DX: E11.9 Type 2 diabetes mellitus without complications (principal)
CPT/HCPCS: 82043; 82570

== ENCOUNTER → 2023-02-03 | Outpatient (CLI) | payer MEDICARE, OTHER, SELFPAY ==
[2020-04-24 10:56] VITALS: BMI 26.7
[2023-02-03 18:02] LABS: AST(SGOT) 110 U/L (15-37); Alanine Aminotransfer ALT/SGPT 118 U/L (16-61); Alkaline Phosphatase 139 U/L (45-117); Anion Gap 8 (5-15); BUN 14 mg/dL (7-18); BUN/Creat Ratio 10.2 RATIO (10-20); Calcium,Total 8.1 mg/dL (8.5-10.1); Chloride 111 mmol/L (98-107); Creatinine, Serum 1.37 mg/dL (0.70-1.30); EST Glomerular Filtration Rate 55 mL/min (>60); Est Glom Filt Rate - Afr Amer 66 mL/min (>60); Globulin 3.1 g/dL (2.2-4.2); Glucose 248 mg/dL (74-106); Potassium 3.7 mmol/L (3.5-5.1); Protein, Total 6.1 g/dL (6.4-8.2); Sodium Level 144 mmol/L (136-145)
== END | disposition home or self-care (01) ==
LOC: MFPLAB 15:38
PROVIDERS: PCP Family Medicine; Visit Provider Family Medicine
DX: B35.1 Tinea unguium (principal)
CPT/HCPCS: 36415; 80053

== ENCOUNTER 2023-04-06 16:32 | Outpatient (CLI) | payer MEDICARE, OTHER, SELFPAY ==
[2020-04-24 10:56] VITALS: BMI 26.7
[2023-04-06 17:47] LABS: Absolute Lymphocyte Count 1.43 X10^3/uL (0.83-4.51); Absolute Neutrophil Count 5.4 X10^3/uL (2.0-7.7); Basophil# 0.03 X10^3/uL; Basophil% 0.4 % (0-1); Eosinophil# 0.12 X10^3/uL; Eosinophils% 1.5 % (0-5); Hematocrit 43.7 % (40-54); Hemoglobin 13.9 g/dL (13.0-16.5); Lymphocyte # 1.43 X10^3/ul (0.83-4.51); Lymphocyte % 18.3 % (19-41); Mean Corp Hgb Conc 31.8 g/dL (32-36); Mean Corpuscular Hgb 30.6 pg (27.0-32.0); Mean Corpuscular Volume 96.3 fL (80-94); Mean Platelet Vol. 10.2 fl (6.2-12.0); Monocyte# 0.77 X10^3/uL; Monocyte% 9.8 % (0-10); NRBC Flagged by Analyzer 0 % (0-5); Neutrophil # 5.43 X10^3/uL (2.7-7.7); Neutrophil % 69.4 % (47-70); Platelet Count 243 K/mm3 (150-450); RBC Distribution Width CV 13.2 % (11.6-14.6); RBC Distribution Width SD 46.6 fl (35.1-43.9); Red Blood Count 4.54 M/mm3 (4.6-6.2); White Blood Count 7.8 K/mm3 (4.4-11.0)
[2023-04-06 18:20] LABS: Vitamin D,25 Hydroxy 39.6 ng/mL
[2023-04-06 18:21] LABS: Hemoglobin A1c 6.1 % (3.8-5.6)
[2023-04-06 18:29] LABS: Microalbumin:Creatinine Ratio 696.1 mg/g CRE (<30 mg/g CRE)
[2023-04-06 18:33] LABS: AST(SGOT) 84 U/L (15-37); Alanine Aminotransfer ALT/SGPT 91 U/L (16-61); Albumin, Serum 3.2 g/dL (3.2-5.0); Alkaline Phosphatase 142 U/L (45-117); Anion Gap 7 (5-15); BUN 17 mg/dL (7-18); BUN/Creat Ratio 9.9 RATIO (10-20); Calcium,Total 8.8 mg/dL (8.5-10.1); Chloride 106 mmol/L (98-107); Cholesterol 86 mg/dL (200); Creatinine, Serum 1.71 mg/dL (0.70-1.30); EST Glomerular Filtration Rate 42 mL/min (>60); Est Glom Filt Rate - Afr Amer 51 mL/min (>60); Globulin 3.3 g/dL (2.2-4.2); Glucose 137 mg/dL (74-106); High Density Lipoprotein 42 mg/dL; Potassium 4.3 mmol/L (3.5-5.1); Protein, Total 6.5 g/dL (6.4-8.2); Sodium Level 139 mmol/L (136-145); Triglycerides 204 mg/dL; Very Low Density Lipoprotein 41 mg/dL (5-40)
[2023-04-07 11:57] LABS: PTHIN 63.2 pg/mL (18.4-80.1)
[2023-04-07 11:59] LABS: Phosphorus 3.3 mg/dL (2.5-4.9)
[2023-04-07 12:03] LABS: Protein, Urine (Random) 263.8 mg/dL (<11.9); Protein:Creat Ratio 1457 mg/g CRE (0-200)
== END 2023-04-06 23:59 | disposition home or self-care (01) ==
LOC: MFPLAB 16:33
PROVIDERS: PCP Family Medicine; Visit Provider Family Medicine
DX: E11.65 Type 2 diabetes mellitus with hyperglycemia (principal); E11.69 Type 2 diabetes mellitus with other specified complication; M81.0 Age-related osteoporosis without current pathological fracture
CPT/HCPCS: 36415; 80053; 80061; 82043; 82306; 82570; 83036; 83970; 84100; 84156; 85025

== ENCOUNTER → 2023-08-04 | Outpatient (CLI) | payer MEDICARE, OTHER, SELFPAY ==
[2020-04-24 10:56] VITALS: BMI 26.7
[2023-08-04 11:34] LABS: Bacteria 0 SEEN /hpf (None Seen); Mucous, Urine 0 SEEN /hpf (<or=2+); Red Blood Cells-Urine 0 SEEN /hpf (0-5); Squamous Epithelial Cells - UA 0 SEEN /hpf (0-5); White Blood Cells 0 SEEN /hpf (0-5)
[2023-08-04 12:37] LABS: Absolute Lymphocyte Count 1.44 X10^3/uL (0.83-4.51); Absolute Neutrophil Count 7.6 X10^3/uL (2.0-7.7); Basophil# 0.03 X10^3/uL; Basophil% 0.3 % (0-1); Eosinophil# 0.16 X10^3/uL; Eosinophils% 1.5 % (0-5); Hematocrit 46.9 % (40-54); Hemoglobin 14.5 g/dL (13.0-16.5); Lymphocyte # 1.44 X10^3/ul (0.83-4.51); Lymphocyte % 13.9 % (19-41); Mean Corp Hgb Conc 30.9 g/dL (32-36); Mean Corpuscular Hgb 30.1 pg (27.0-32.0); Mean Corpuscular Volume 97.3 fL (80-94); Mean Platelet Vol. 10.1 fl (6.2-12.0); Monocyte# 1.02 X10^3/uL; Monocyte% 9.9 % (0-10); NRBC Flagged by Analyzer 0 % (0-5); Neutrophil # 7.64 X10^3/uL (2.7-7.7); Platelet Count 252 K/mm3 (150-450); RBC Distribution Width CV 13.4 % (11.6-14.6); RBC Distribution Width SD 48.4 fl (35.1-43.9); Red Blood Count 4.82 M/mm3 (4.6-6.2); White Blood Count 10.3 K/mm3 (4.4-11.0)
[2023-08-04 13:05] LABS: Vitamin D,25 Hydroxy 40.6 ng/mL
[2023-08-04 13:08] LABS: ALB/GLOB Ratio 0.9 RATIO (0.9-2.4); AST(SGOT) 49 U/L (15-37); Alanine Aminotransfer ALT/SGPT 61 U/L (16-61); Albumin, Serum 3.2 g/dL (3.2-5.0); Alkaline Phosphatase 183 U/L (45-117); Anion Gap 8 (5-15); BUN 22 mg/dL (7-18); BUN/Creat Ratio 14.1 RATIO (10-20); Calcium,Total 9.6 mg/dL (8.5-10.1); Chloride 105 mmol/L (98-107); Cholesterol 103 mg/dL (200); Creatinine, Serum 1.56 mg/dL (0.70-1.30); EST Glomerular Filtration Rate 47 mL/min (>60); Est Glom Filt Rate - Afr Amer 57 mL/min (>60); Ferritin 58 ng/mL (26-388); Globulin 3.7 g/dL (2.2-4.2); Glucose 115 mg/dL (74-106); High Density Lipoprotein 43 mg/dL; Iron 62 ug/dL (65-175); Iron Binding Capacity,Total 307 ug/dL (250-450); PERCENT IRON SATURATION 20.2 % (15.0-55.0); Phosphorus 3.8 mg/dL (2.5-4.9); Potassium 4.5 mmol/L (3.5-5.1); Protein, Total 6.9 g/dL (6.4-8.2); Sodium Level 141 mmol/L (136-145); Triglycerides 181 mg/dL; Very Low Density Lipoprotein 36 mg/dL (5-40)
[2023-08-04 13:10] LABS: Hemoglobin A1c 5.9 % (3.8-5.6)
[2023-08-04 15:46] LABS: Color, Urine Yellow (Yellow); Glucose, Dipstick Normal (Normal); Ketone-Dipstick Negative (Negative); Leukocyte Esterase-Dipstick Negative /ul (Negative); Nitrite-Dipstick Negative (Negative); Occult Blood-Urine Negative /ul (Negative); Protein-Dipstick 500 mg/dl (Negative); Specific Gravity, Urine 1.015 (1.002-1.030); Urine Bilirubin Dipstick Negative (Negative); Urine Clarity Clear (Clear); Urine Urobilinogen Normal (Normal); Urine pH 6.5 (5.0 - 8.0)
[2023-08-04 16:44] LABS: Microalbumin:Creatinine Ratio 2591.3 mg/g CRE (<30 mg/g CRE); Protein:Creat Ratio 3017 mg/g CRE (0-200)
== END | disposition home or self-care (01) ==
LOC: MFPLAB 11:30
PROVIDERS: PCP Family Medicine; Visit Provider Family Medicine
DX: E11.22 Type 2 diabetes mellitus with diabetic chronic kidney disease (principal); N18.30 Chronic kidney disease, stage 3 unspecified; E61.1 Iron deficiency
CPT/HCPCS: 36415; 80053; 80061; 81001; 82043; 82306; 82570; 82728; 83036; 83540; 83550; 84100; 84156; 85025

== ENCOUNTER → 2023-10-14 | Outpatient (CLI) | payer MEDICARE, OTHER, SELFPAY ==
[2020-04-24 10:56] VITALS: BMI 26.7
== END | disposition home or self-care (01) ==
LOC: PSN 11:51
PROVIDERS: PCP Family Medicine; Referring Provider Internal Medicine Cardiovascular Disease; Visit Provider Internal Medicine Cardiovascular Disease
DX: Z91.81 History of falling (principal); W19.XXXA Unspecified fall, initial encounter
CPT/HCPCS: 93225; 93226

== ENCOUNTER 2023-11-22 07:52 | Day surgery (SDC) | payer MEDICARE, OTHER, SELFPAY ==
[2020-04-24 10:56] VITALS: BMI 26.7
[2023-11-19 09:55] VITALS: BMI 24.5
[2023-11-19 18:09] LABS: Anion Gap 4 (5-15); BUN 22 mg/dL (7-18); BUN/Creat Ratio 13.3 RATIO (10-20); Calcium,Total 8.9 mg/dL (8.5-10.1); Chloride 108 mmol/L (98-107); Creatinine, Serum 1.65 mg/dL (0.70-1.30); EST Glomerular Filtration Rate 44 mL/min (>60); Est Glom Filt Rate - Afr Amer 53 mL/min (>60); Estimated Creatinine Clearance 40.88 ml/min; Glucose 127 mg/dL (74-106); Potassium 3.9 mmol/L (3.5-5.1); Sodium Level 144 mmol/L (136-145)
--- NOTE | 2023-11-23 14:26 | CL.IE_ITS ---
Patient: TERRI JUNE Study Date: 11/22/2023 Performing: Neo Tian MD : 1955 Age: 68 Gender: male PROCEDURES PERFORMED LP01-([id number])INSERTION OF LOOP RECORDER INDICATIONS Syncope PROCEDURE DETAILS The patient was brought to the Catheterization Lab in the postabsorptive nonsedated state. Informed consent was obtained prior to the procedure. Local anesthetic was given subcutaneously to the left upper chest area with Lidocaine 2%. Incision was made to the left upper chest. ICM Loop Recorder was inserted. The patient tolerated the procedure well. 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 Device Recommendations: Follow up with Primary Care Physician PROCEDURE MEDICATIONS Versed 1 mg IV Oxygen: 2 L/min via nasal cannula Antibiotic given in appropriate timeframe. Ancef 2 Gm IV @ 11/22/2023 09:13:39 Signed By Neo Tian MD On 11/22/2023 09:31:31 Neo Tian MD
== END 2023-11-22 10:40 | disposition home or self-care (01) ==
PROVIDERS: Nurse Practitioner Gerontology; PCP Family Medicine; Referring Provider Internal Medicine Cardiovascular Disease; Visit Provider Internal Medicine Cardiovascular Disease
DX: R55 Syncope and collapse (principal); E11.9 Type 2 diabetes mellitus without complications; K21.9 Gastro-esophageal reflux disease without esophagitis; I25.10 Atherosclerotic heart disease of native coronary artery without angina pectoris; G47.30 Sleep apnea, unspecified; I10 Essential (primary) hypertension; E78.5 Hyperlipidemia, unspecified; Z79.82 Long term (current) use of aspirin; Z79.84 Long term (current) use of oral hypoglycemic drugs; Z79.899 Other long term (current) drug therapy; Z86.73 Personal history of transient ischemic attack (TIA), and cerebral infarction without residual deficits; Z95.1 Presence of aortocoronary bypass graft; Z87.891 Personal history of nicotine dependence
CPT/HCPCS: 33285; 36415; 80048; 99152; 99153; J7040

== ENCOUNTER → 2023-12-01 | Outpatient (CLI) | payer MEDICARE, OTHER, SELFPAY ==
[2020-04-24 10:56] VITALS: BMI 26.7
[2023-12-01 11:23] LABS: Bacteria 0 SEEN /hpf (None Seen); Mucous, Urine 0 SEEN /hpf (<or=2+); White Blood Cells 0 SEEN /hpf (0-5)
[2023-12-01 14:54] LABS: Absolute Lymphocyte Count 1.41 X10^3/uL (0.83-4.51); Absolute Neutrophil Count 4.9 X10^3/uL (2.0-7.7); Basophil# 0.02 X10^3/uL; Basophil% 0.3 % (0-1); Eosinophil# 0.17 X10^3/uL; Eosinophils% 2.4 % (0-5); Hematocrit 43.9 % (40-54); Hemoglobin 13.5 g/dL (13.0-16.5); Lymphocyte # 1.41 X10^3/ul (0.83-4.51); Lymphocyte % 19.6 % (19-41); Mean Corp Hgb Conc 30.8 g/dL (32-36); Mean Corpuscular Hgb 30.5 pg (27.0-32.0); Mean Corpuscular Volume 99.3 fL (80-94); Mean Platelet Vol. 11.1 fl (6.2-12.0); Monocyte# 0.66 X10^3/uL; Monocyte% 9.2 % (0-10); NRBC Flagged by Analyzer 0 % (0-5); Neutrophil % 68.2 % (47-70); Platelet Count 219 K/mm3 (150-450); RBC Distribution Width CV 13.5 % (11.6-14.6); RBC Distribution Width SD 49.6 fl (35.1-43.9); Red Blood Count 4.42 M/mm3 (4.6-6.2); White Blood Count 7.2 K/mm3 (4.4-11.0)
[2023-12-01 14:56] LABS: Color, Urine Yellow (Yellow); Glucose, Dipstick Normal (Normal); Ketone-Dipstick 5 mg/dl (Negative); Leukocyte Esterase-Dipstick Negative /ul (Negative); Nitrite-Dipstick Negative (Negative); Occult Blood-Urine Negative /ul (Negative); Protein-Dipstick 500 mg/dl (Negative); Urine Bilirubin Dipstick Negative (Negative); Urine Clarity Clear (Clear); Urine Urobilinogen Normal (Normal)
[2023-12-01 15:04] LABS: Red Blood Cells-Urine 0-5 SEEN /hpf (0-5); Squamous Epithelial Cells - UA 0-5 SEEN /hpf (0-5)
[2023-12-01 15:11] LABS: Vitamin D,25 Hydroxy 41.4 ng/mL
[2023-12-01 15:25] LABS: PTHIN 25.8 pg/mL (18.4-80.1)
[2023-12-01 15:44] LABS: Hemoglobin A1c 5.5 % (3.8-5.6)
[2023-12-01 16:19] LABS: ALB/GLOB Ratio 0.9 RATIO (0.9-2.4); AST(SGOT) 54 U/L (15-37); Alanine Aminotransfer ALT/SGPT 63 U/L (16-61); Albumin, Serum 2.9 g/dL (3.2-5.0); Alkaline Phosphatase 132 U/L (45-117); Anion Gap 6 (5-15); BUN 19 mg/dL (7-18); BUN/Creat Ratio 12.4 RATIO (10-20); Calcium,Total 9.1 mg/dL (8.5-10.1); Chloride 109 mmol/L (98-107); Cholesterol 115 mg/dL (200); Creatinine, Serum 1.53 mg/dL (0.70-1.30); EST Glomerular Filtration Rate 48 mL/min (>60); Est Glom Filt Rate - Afr Amer 58 mL/min (>60); Globulin 3.4 g/dL (2.2-4.2); Glucose 139 mg/dL (74-106); High Density Lipoprotein 48 mg/dL; Phosphorus 4.3 mg/dL (2.5-4.9); Potassium 3.9 mmol/L (3.5-5.1); Protein, Total 6.3 g/dL (6.4-8.2); Sodium Level 141 mmol/L (136-145); Thyroid Stim Hormone (TSH) 2.67 uIU/mL (0.358-3.74); Triglycerides 133 mg/dL; Very Low Density Lipoprotein 27 mg/dL (5-40)
[2023-12-01 18:31] LABS: Microalbumin:Creatinine Ratio 3707.5 mg/g CRE (<30 mg/g CRE); Protein, Urine (Random) 743.1 mg/dL (<11.9); Protein:Creat Ratio 5055 mg/g CRE (0-200)
== END | disposition home or self-care (01) ==
LOC: MFPLAB 11:20
PROVIDERS: PCP Family Medicine; Visit Provider Family Medicine
DX: E11.22 Type 2 diabetes mellitus with diabetic chronic kidney disease (principal); E11.8 Type 2 diabetes mellitus with unspecified complications; N18.30 Chronic kidney disease, stage 3 unspecified
CPT/HCPCS: 36415; 80053; 80061; 81001; 82043; 82306; 82570; 83036; 83970; 84100; 84156; 84443; 85025

== ENCOUNTER → 2023-12-31 | Outpatient (CLI) | payer MEDICARE, OTHER, SELFPAY ==
[2020-04-24 10:56] VITALS: BMI 26.7
[2023-12-31 18:01] LABS: PSA,Total - Annual Screen 0.82 ng/mL (0.00-4.00)
== END | disposition home or self-care (01) ==
LOC: MFPLAB 15:23
PROVIDERS: PCP Family Medicine; Visit Provider Family Medicine
DX: Z12.5 Encounter for screening for malignant neoplasm of prostate (principal)
CPT/HCPCS: 36415; 84153; G0103

== ENCOUNTER → 2024-03-28 | Outpatient (CLI) | payer MEDICARE, OTHER, SELFPAY ==
[2020-04-24 10:56] VITALS: BMI 26.7
[2024-03-28 15:20] LABS: Bacteria 0 SEEN /hpf (None Seen); Mucous, Urine 0 SEEN /hpf (<or=2+); Red Blood Cells-Urine 0 SEEN /hpf (0-5); Squamous Epithelial Cells - UA 0 SEEN /hpf (0-5)
[2024-03-28 17:46] LABS: Absolute Lymphocyte Count 1.71 X10^3/uL (0.83-4.51); Absolute Neutrophil Count 6.6 X10^3/uL (2.0-7.7); Basophil# 0.03 X10^3/uL; Basophil% 0.3 % (0-1); Eosinophils% 2.1 % (0-5); Hematocrit 47.4 % (40-54); Hemoglobin 15.1 g/dL (13.0-16.5); Lymphocyte # 1.71 X10^3/ul (0.83-4.51); Lymphocyte % 18.2 % (19-41); Mean Corp Hgb Conc 31.9 g/dL (32-36); Mean Corpuscular Hgb 31.7 pg (27.0-32.0); Mean Corpuscular Volume 99.4 fL (80-94); Mean Platelet Vol. 10.6 fl (6.2-12.0); Monocyte# 0.83 X10^3/uL; Monocyte% 8.8 % (0-10); NRBC Flagged by Analyzer 0 % (0-5); Neutrophil # 6.57 X10^3/uL (2.7-7.7); Neutrophil % 69.9 % (47-70); Platelet Count 213 K/mm3 (150-450); Red Blood Count 4.77 M/mm3 (4.6-6.2); White Blood Count 9.4 K/mm3 (4.4-11.0)
[2024-03-28 18:00] LABS: Color, Urine Yellow (Yellow); Glucose, Dipstick 1000 mg/dl (Normal); Ketone-Dipstick Negative (Negative); Leukocyte Esterase-Dipstick Negative /ul (Negative); Nitrite-Dipstick Negative (Negative); Occult Blood-Urine Negative /ul (Negative); Protein-Dipstick 500 mg/dl (Negative); Urine Bilirubin Dipstick Negative (Negative); Urine Clarity Clear (Clear); Urine Urobilinogen Normal (Normal)
[2024-03-28 18:08] LABS: Hemoglobin A1c 5.6 % (3.8-5.6)
[2024-03-28 18:09] LABS: White Blood Cells 0-5 SEEN /hpf (0-5)
[2024-03-28 18:11] LABS: Vitamin D,25 Hydroxy 38.8 ng/mL
[2024-03-28 18:25] LABS: ALB/GLOB Ratio 0.9 RATIO (0.9-2.4); AST(SGOT) 38 U/L (15-37); Alanine Aminotransfer ALT/SGPT 46 U/L (16-61); Albumin, Serum 3.2 g/dL (3.2-5.0); Alkaline Phosphatase 152 U/L (45-117); Anion Gap 9 (5-15); BUN 29 mg/dL (7-18); BUN/Creat Ratio 17.1 RATIO (10-20); Calcium,Total 9.3 mg/dL (8.5-10.1); Chloride 104 mmol/L (98-107); Cholesterol 125 mg/dL (200); EST Glomerular Filtration Rate 43 mL/min (>60); Est Glom Filt Rate - Afr Amer 52 mL/min (>60); Ferritin 46 ng/mL (26-388); Globulin 3.6 g/dL (2.2-4.2); Glucose 140 mg/dL (74-106); High Density Lipoprotein 56 mg/dL; Iron 76 ug/dL (65-175); Iron Binding Capacity,Total 319 ug/dL (250-450); PERCENT IRON SATURATION 23.8 % (15.0-55.0); Potassium 4.7 mmol/L (3.5-5.1); Protein, Total 6.8 g/dL (6.4-8.2); Sodium Level 138 mmol/L (136-145); Triglycerides 148 mg/dL; Very Low Density Lipoprotein 30 mg/dL (5-40)
[2024-03-28 18:38] LABS: Microalbumin:Creatinine Ratio 2921.6 mg/g CRE (<30 mg/g CRE)
== END | disposition home or self-care (01) ==
LOC: MFPLAB 14:04
PROVIDERS: PCP Family Medicine; Visit Provider Family Medicine
DX: E11.69 Type 2 diabetes mellitus with other specified complication (principal); E11.29 Type 2 diabetes mellitus with other diabetic kidney complication; E55.9 Vitamin D deficiency, unspecified; E61.1 Iron deficiency
CPT/HCPCS: 36415; 80053; 80061; 81001; 82043; 82306; 82570; 82728; 83036; 83540; 83550; 85025

== ENCOUNTER → 2024-07-26 | Outpatient (CLI) | payer MEDICARE, OTHER, SELFPAY ==
[2020-04-24 10:56] VITALS: BMI 26.7
[2024-07-26 17:29] LABS: Absolute Lymphocyte Count 2.07 X10^3/uL (0.83-4.51); Absolute Neutrophil Count 8.5 X10^3/uL (2.0-7.7); Basophil# 0.07 X10^3/uL; Basophil% 0.6 % (0-1); Eosinophils% 1.7 % (0-5); Hematocrit 44.6 % (40-54); Hemoglobin 14.2 g/dL (13.0-16.5); Lymphocyte # 2.07 X10^3/ul (0.83-4.51); Lymphocyte % 17.2 % (19-41); Mean Corp Hgb Conc 31.8 g/dL (32-36); Mean Corpuscular Hgb 31.8 pg (27.0-32.0); Mean Corpuscular Volume 99.8 fL (80-94); Mean Platelet Vol. 10.7 fl (6.2-12.0); Monocyte# 1.09 X10^3/uL; Monocyte% 9.1 % (0-10); NRBC Flagged by Analyzer 0 % (0-5); Neutrophil # 8.48 X10^3/uL (2.7-7.7); Neutrophil % 70.4 % (47-70); Platelet Count 212 K/mm3 (150-450); RBC Distribution Width CV 12.8 % (11.6-14.6); RBC Distribution Width SD 46.1 fl (35.1-43.9); Red Blood Count 4.47 M/mm3 (4.6-6.2)
[2024-07-26 18:04] LABS: Vitamin B12 436 pg/mL (211-911); Vitamin D,25 Hydroxy 27.1 ng/mL
[2024-07-26 18:13] LABS: ALB/GLOB Ratio 0.9 RATIO (0.9-2.4); AST(SGOT) 42 U/L (15-37); Alanine Aminotransfer ALT/SGPT 50 U/L (16-61); Alkaline Phosphatase 141 U/L (45-117); Anion Gap 8 (5-15); BUN 29 mg/dL (7-18); BUN/Creat Ratio 19.2 RATIO (10-20); Calcium,Total 10.2 mg/dL (8.5-10.1); Chloride 106 mmol/L (98-107); Cholesterol 118 mg/dL (200); Creatinine, Serum 1.51 mg/dL (0.70-1.30); EST Glomerular Filtration Rate 49 mL/min (>60); Est Glom Filt Rate - Afr Amer 59 mL/min (>60); Globulin 3.4 g/dL (2.2-4.2); Glucose 121 mg/dL (74-106); High Density Lipoprotein 57 mg/dL; Potassium 4.2 mmol/L (3.5-5.1); Protein, Total 6.4 g/dL (6.4-8.2); Sodium Level 140 mmol/L (136-145); T4 Free Direct 0.79 ng/dL (0.76-1.46); Triglycerides 186 mg/dL; Very Low Density Lipoprotein 37 mg/dL (5-40)
[2024-07-26 18:42] LABS: Hemoglobin A1c 5.9 % (3.8-5.6)
== END | disposition home or self-care (01) ==
LOC: MFPLAB 14:07
PROVIDERS: PCP Family Medicine; Visit Provider Family Medicine
DX: R53.83 Other fatigue (principal); E11.22 Type 2 diabetes mellitus with diabetic chronic kidney disease; E55.9 Vitamin D deficiency, unspecified; N18.9 Chronic kidney disease, unspecified
CPT/HCPCS: 36415; 80053; 80061; 82306; 82607; 83036; 84439; 84443; 85025

== ENCOUNTER → 2024-11-21 | Outpatient (CLI) | payer MEDICARE, OTHER, SELFPAY ==
[2020-04-24 10:56] VITALS: BMI 26.7
== END | disposition home or self-care (01) ==
PROVIDERS: PCP Family Medicine; Referring Provider Nurse Practitioner Acute Care; Visit Provider Nurse Practitioner Acute Care
DX: G47.33 Obstructive sleep apnea (adult) (pediatric) (principal)
CPT/HCPCS: 95810

== ENCOUNTER → 2024-11-22 | Outpatient (CLI) | payer MEDICARE, OTHER, SELFPAY ==
[2020-04-24 10:56] VITALS: BMI 26.7
[2024-11-22 17:47] LABS: Absolute Lymphocyte Count 1.64 X10^3/uL (0.83-4.51); Absolute Neutrophil Count 4.3 X10^3/uL (2.0-7.7); Basophil# 0.04 X10^3/uL; Basophil% 0.6 % (0-1); Eosinophil# 0.15 X10^3/uL; Eosinophils% 2.1 % (0-5); Hematocrit 40.5 % (40-54); Hemoglobin 13.2 g/dL (13.0-16.5); Lymphocyte # 1.64 X10^3/ul (0.83-4.51); Mean Corp Hgb Conc 32.6 g/dL (32-36); Mean Corpuscular Hgb 32.4 pg (27.0-32.0); Mean Corpuscular Volume 99.5 fL (80-94); Mean Platelet Vol. 10.6 fl (6.2-12.0); Monocyte% 12.6 % (0-10); NRBC Flagged by Analyzer 0 % (0-5); Neutrophil # 4.34 X10^3/uL (2.7-7.7); Platelet Count 214 K/mm3 (150-450); RBC Distribution Width CV 12.7 % (11.6-14.6); RBC Distribution Width SD 46.2 fl (35.1-43.9); Red Blood Count 4.07 M/mm3 (4.6-6.2); White Blood Count 7.1 K/mm3 (4.4-11.0)
[2024-11-22 19:19] LABS: ALB/GLOB Ratio 1.5 RATIO (0.9-2.4); AST(SGOT) 28 U/L (<=37); Alanine Aminotransfer ALT/SGPT 24 U/L (<=46); Albumin, Serum 3.8 g/dL (3.4-4.8); Alkaline Phosphatase 193 U/L (40-129); Anion Gap 16 (5-15); BUN 32 mg/dL (4-19); BUN/Creat Ratio 18.8 RATIO (10-20); Calcium,Total 9.7 mg/dL (7.6-11.0); Carbon Dioxide 22.5 mmol/L (21.0-32.0); Chloride 100 mmol/L (98-108); Cholesterol 136 mg/dL (<=200); EST Glomerular Filtration Rate 43 (>60); Globulin 2.6 g/dL (2.2-4.2); Glucose 110 mg/dL (70-99); High Density Lipoprotein 52 mg/dL; Low Density Lipoprotein Calc. 14 mg/dL; Potassium 4.2 mmol/L (3.3-5.1); Protein, Total 6.4 g/dL (5.9-8.4); Sodium Level 138 mmol/L (133-145); Triglycerides 349 mg/dL; Very Low Density Lipoprotein 70 mg/dL (5-40); Vitamin D,25 Hydroxy 27.3 ng/mL (30-100); cholesterol:hdl ratio screen 2.63
[2024-11-22 23:12] LABS: Hemoglobin A1c 5.9 % (<=5.6)
[2024-11-23 08:33] LABS: Microalbumin:Creatinine Ratio 22123.7 mg/g CRE; Protein:Creat Ratio 3441 mg/g CRE (0-200)
[2024-11-27 12:08] LABS: GGTP 26 IU/L (0-65)
== END | disposition home or self-care (01) ==
LOC: MFPLAB 14:17
PROVIDERS: PCP Family Medicine; Referring Provider Family Medicine; Visit Provider Family Medicine
DX: E11.22 Type 2 diabetes mellitus with diabetic chronic kidney disease (principal); N18.30 Chronic kidney disease, stage 3 unspecified; E55.9 Vitamin D deficiency, unspecified
CPT/HCPCS: 36415; 80053; 80061; 82043; 82306; 82570; 82977; 83036; 84156; 85025

== ENCOUNTER 2025-02-20 11:08 | Emergency (ER) | payer MEDICARE, OTHER, SELFPAY ==
[2020-04-24 10:56] VITALS: BMI 26.7
[2025-02-20 11:09] VITALS: BP 165/90; PULSE 93; RESP 16; TEMP 36.8; O2SAT 95; BMI 24.7
[2025-02-20 11:15] VITALS: O2SAT 97
--- NOTE | 2025-02-20 11:22 | CT_ITS ---
PROCEDURE: BRAIN/HEAD WITHOUT CONTRAST 02/20/2025 REASON FOR EXAM: INJURY TECHNIQUE: BRAIN/HEAD WITHOUT CONTRAST Coronal and Sagittal reconstruction series were provided. One or more dose reduction techniques were used (e.g., Automated exposure control, adjustment of the mA and/or kV according to patient size, use of iterative reconstruction technique. RADIATION DOSE SUMMARY: DLP: 829.85 mGycm COMPARISON: None FINDINGS: Brain: There is increased density in the right posterior temporal lobe, at the posterior region of the insula and lateral ventricle with the appearance of acute blood, axial image 23/45, coronal image 62/90. 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 There is no extra-axial collection. There is no midline shift. Sinuses/Mastoids: Clear Bones: There is no bony abnormality identified. CT/Brain/Head without Contrast IMPRESSION: There is increased density in the right posterior temporal lobe, at the posteri or region of the insula and lateral ventricle with the appearance of acute blood, axial image 23/45, coronal image 62/90. 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 Critical results were discussed with Dr. Carmichael by Dr. Eduardo at the time o f dictation. Reading Location: [facility]
--- NOTE | 2025-02-20 11:23 | ED.VIS.FALL ---
HPI HPI - Fall History of Present Illness Chief Complaint: Fall Informant: patient Narrative Narrative: 69-year-old male presenting to the emergency room following a fall. 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 He notes abrasion to left finger and abrasions to his face and chin. No loss of conscious. He denies any neck pain. He denies any dental pain. He is able to open his jaw without pain. Unsure of last tetanus. He is not anticoagulated does take aspirin therapy. Tetanus Immunization: Unknown [facility] Medical History Exocrine pancreatic insufficiency Gastritis Bile leak CPAP (continuous positive airway pressure) dependence Acute cholecystitis due to biliary calculus Common bile duct dilatation Irritable bowel Syncope Irregular heartbeat Acute gallstone pancreatitis Wears glasses Cancer Diabetes Gout Hepatitis Gastric reflux Former smoker History of echocardiogram History of stress test Hypertension Cardiology follow-up encounter Gastroparesis Squamous cell carcinoma Atherosclerosis of coronary artery of [place] heart without angina pectoris Hepatitis A Elevated LFTs Hyperlipidemia Type 2 diabetes mellitus without complication Bipolar II disorder Insomnia Essential hypertension CVA (cerebral vascular accident) (2003) TIA (transient ischemic attack) (2003) Diarrhea Depression GERD (gastroesophageal reflux disease) Sleep apnea Home Medications ?Medication ?Instructions ?Recorded ?Last Taken ?Type dorzolamide 22.3 mg-timolol 6.8 1 drp ophthalmic (eye) BID 09/28/19 02/20/25 History mg/mL eye drops (Cosopt) alendronate 70 mg tablet 70 mg PO QWEEK 09/17/22 02/18/25 History primidone 50 mg tablet 50 mg PO DAILY 09/24/23 02/20/25 History ferrous sulfate 325 mg (65 mg 325 mg PO DAILY 02/14/24 02/20/25 History iron) tablet (Roberto Carlos-Time) mecobalamin (vitamin B12) 1,000 1,000 mcg PO DAILY 02/14/24 02/20/25 History mcg chewable tablet rosuvastatin 10 mg tablet 10 mg PO DAILY #90 tabs 07/05/24 02/19/25 Rx aspirin 81 mg tablet,delayed 81 mg PO DAILY 08/14/24 02/20/25 History release (Adult Low Dose Aspirin) calcium 600 mg (as 1 cap PO DAILY 08/14/24 02/20/25 History carbonate)-vitamin D3 12.5 mcg (500 unit) capsule losartan 50 mg tablet 50 mg PO DAILY #30 tabs 08/14/24 02/20/25 Rx duloxetine 60 mg capsule,delayed 60 mg PO DAILY 90 days #90 caps 09/26/24 02/20/25 Rx release lamotrigine 200 mg tablet 200 mg PO DAILY 90 days #90 tabs 09/26/24 02/20/25 Rx doxepin 10 mg capsule 10 mg PO QHS PRN angioedema 02/01/25 Unknown History metformin 1,000 mg tablet 1,000 mg PO BID 02/20/25 02/20/25 History Allergy/AdvReac Type Severity Reaction Status Date / Time No Known Allergies Allergy Verified 02/20/25 11:14 Family History Father Colon cancer CAD (coronary artery disease) Mother Gastric ulcer Pacemaker Pulmonary fibrosis Heart disease Surgical History History of right shoulder replacement History of ERCP History of surgery on arm S/P laparoscopic cholecystectomy History of cardiac catheterization H/O coronary artery bypass surgery (12/15/19) History of left heart catheterization (11/20/19) History of colonoscopy (2016) History of esophagogastroduodenoscopy (EGD) History of wisdom tooth extraction History of tonsillectomy History of cataract extraction Social History Smoking Status: Former smoker how long ago did patient quit smokin + years ago alcohol intake: current alcohol intake frequency: a few times a month substance use type: does not use caffeine: Yes Type: coffee Number of servings: 1 ROS ROS ED Constitutional Constitutional ED: Denies chills, fever(s) or weight loss Eyes Eyes: Denies change in vision or diplopia ENT ENT ED: Denies ear pain, rhinorrhea or sore throat Cardiovascular Cardiovascular: Denies chest pain, orthopnea, palpitations or racing heartbeat Respiratory/Chest Respiratory/Chest: Denies cough, dyspnea or orthopnea Gastrointestinal Gastrointestinal: Denies abdominal pain, diarrhea, nausea or vomiting Genitourinary Genitourinary ED: Denies dysuria, hematuria or urinary frequency Musculoskeletal Musculoskeletal: Denies arthralgias, back pain, myalgias or neck pain Integumentary Reports Abrasions; Denies abscess or rash Neurologic Neurologic: Denies headache(s), paresthesias or weakness Psychiatric Psychiatric: Denies anxiety, depression, suicidal ideation or suicidal thoughts Endocrine Endocrinology: Denies polydipsia, polyphagia or polyuria Allergic/Immunologic Allergic/Immunologic ED: Denies mouth swelling, tongue swelling or urticaria EXAM Physical Exam Const Vital Signs: 02/20/25 11:09 02/20/25 11:15 Temperature 98.3 F Temperature Source Oral Pulse Rate 93 Respiratory Rate 16 Respiratory Effort Normal Respiratory Depth Normal Respiratory Pattern Normal Blood Pressure 165/90 H Blood Pressure Mean 115 Pulse Ox 95 97 Oxygen Delivery Method Room Air Room Air Positive well nourished and well developed General Appearance ED: well developed and NAD HEENT Reports normocephalic and moist mucous membranes HEENT Narrative: Patient has superficial skin tearing and abrasions to the left cheek and chin. He has dried blood around the left nares and on his mustache. There is no obvious dental trauma. No malocclusion. He is able to fully open his jaw. Midface appears stable. Eyes PERRL and EOMs intact bilaterally Neck full ROM, no lymphadenopathy, supple and no JVD General: Negative for tenderness Resp normal respiratory effort and clear to auscultation bilaterally Cardio regular rate, regular rhythm and no murmurs GI normal to inspection, nondistended, normoactive bowel sounds and non-tender Palpation: soft Back/Spine no CVA tenderness and normal ROM Extremity Extremity Narrative: No deformities General Extremety ED: Negative for edema General Extremity: Negative for edema Neuro oriented x3 and CN's II-XII intact bilaterally Sensorium / Orientation: alert Motor Exam: strength 5/5 throughout Psych mental status grossly normal Mood & Affect: Negative for depressed or tearful Skin no rashes or lesions noted Skin Narrative: Superficial abrasion to the left distal ring finger. No nail involvement. No deformity. Neurovascular intact. MDM MDM MDM Narrative Medical decision making narrative: Differential diagnosis includes but not limited to skull fracture intracranial hemorrhage abrasions skin tear contusion Local wound care provided by nursing. I do not believe any of the wounds needs suturing. These were dressed with bacitracin and dressings. CT of the brain was obtained. This was read by radiology and reviewed by myself. There is evidence of blood in the right temporal lobe. No obvious fracture is seen. Patient was updated. He has been seen at [facility] in the past. He was accepted there in transfer by Dr. Barboza from trauma surgery. History & Record Review Discussion w/independent historian: Patient Additional record(s) reviewed:: Prior outpatient record, Prior ED visit and Prior labs Lab Data Attestation: I reviewed the patient's lab results. Radiography Diagnostic Testing: Clinical Impression(s) from Imaging Studies Brain CT 02/20/25 11:22 IMPRESSION: There is increased density in the right posterior temporal lobe, at the posterior region of the insula and lateral ventricle with the appearance of acute blood, axial image 23/45, coronal image 62/90. 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 Critical results were discussed with Dr. Carmichael by Dr. Eudardo at the time of dictation. Reading Location: [facility] Management Discussion w/another healthcare provider[facility] [facility] and Radiologist Discharge Plan Triage Chief Complaint: Fall ED Provider: Michael Carmichael Dx/Rx/DC Orders Clinical Impression: Fall, Abrasion of face, Contusion of face, Abrasion of finger, Head injury, Contusion of right temporal lobe Prescriptions: No Action dorzolamide-timolol [Cosopt] 22.3-6.8 mg/mL drops 1 drp OPHTHALMIC BID primidone 50 mg tablet 50 mg PO DAILY alendronate 70 mg tablet 70 mg PO QWEEK Patient Comments: PT TRIES TO TAKE ON SATURDAYS ferrous sulfate [Roberto Carlos-Time] 325 mg (65 mg iron) tablet 325 mg PO DAILY mecobalamin (vitamin B12) 1,000 mcg tablet,chewable 1,000 mcg PO DAILY aspirin [Adult Low Dose Aspirin] 81 mg tablet,delayed release (DR/EC) 81 mg PO DAILY calcium carbonate-vitamin D3 600 mg-12.5 mcg (500 unit) capsule 1 cap PO DAILY losartan 50 mg tablet 50 mg PO DAILY Qty: 30 12RF lamotrigine 200 mg tablet 200 mg PO DAILY 90 Days Qty: 90 1RF duloxetine 60 mg capsule,delayed release(DR/EC) 60 mg PO DAILY 90 Days Qty: 90 1RF doxepin 10 mg capsule 10 mg PO QHS PRN (Reason: angioedema) metformin 1,000 mg tablet 1,000 mg PO BID rosuvastatin 10 mg tablet 10 mg PO DAILY Qty: 90 3RF Patient Comments: PT TAKES AT BEDTIME Primary Care Provider: Iván Case Referrals: Iván Case MD [Primary Care Provider] - Keep Josefina appointment Print Language: Syrian Disposition Disposition: Acute Care Hospital Discharge Location: [facility]
[2025-02-20] MEDS: Diphth,Pertuss(Acell),Tet Vac 0.5 ML Vial IM (12:11)
[2025-02-20 12:12] LABS: Absolute Lymphocyte Count 1.12 X10^3/uL (0.83-4.51); Absolute Neutrophil Count 6.8 X10^3/uL (2.0-7.7); Basophil# 0.03 X10^3/uL; Basophil% 0.3 % (0-1); Eosinophil# 0.12 X10^3/uL; Eosinophils% 1.4 % (0-5); Hematocrit 38.4 % (40-54); Hemoglobin 12.9 g/dL (13.0-16.5); Lymphocyte # 1.12 X10^3/ul (0.83-4.51); Lymphocyte % 12.7 % (19-41); Mean Corp Hgb Conc 33.6 g/dL (32-36); Mean Corpuscular Hgb 32.3 pg (27.0-32.0); Mean Corpuscular Volume 96.2 fL (80-94); Mean Platelet Vol. 9.8 fl (6.2-12.0); Monocyte# 0.66 X10^3/uL; Monocyte% 7.5 % (0-10); NRBC Flagged by Analyzer 0 % (0-5); Neutrophil # 6.78 X10^3/uL (2.7-7.7); Neutrophil % 76.9 % (47-70); Platelet Count 197 K/mm3 (150-450); RBC Distribution Width CV 13.1 % (11.6-14.6); RBC Distribution Width SD 45.5 fl (35.1-43.9); Red Blood Count 3.99 M/mm3 (4.6-6.2); White Blood Count 8.8 K/mm3 (4.4-11.0)
[2025-02-20 12:26] LABS: Prothrombin Time (Protime)PT. 13.3 SECONDS (11.7-14.9)
[2025-02-20 12:27] LABS: Partial Thromboplast Time 22.1 Seconds (24.1-36.2)
[2025-02-20 12:33] VITALS: BP 166/85; PULSE 88; RESP 21; O2SAT 95
[2025-02-20 13:09] LABS: Anion Gap 13 (5-15); BUN 25 mg/dL (4-19); BUN/Creat Ratio 14.6 RATIO (10-20); Calcium,Total 9.4 mg/dL (7.6-11.0); Chloride 105 mmol/L (98-108); Creatinine, Serum 1.74 mg/dL (0.70-1.20); EST Glomerular Filtration Rate 42 (>60); Estimated Creatinine Clearance 38.22 ml/min (50-250); Glucose 143 mg/dL (70-99); Potassium 4.9 mmol/L (3.3-5.1); Sodium Level 139 mmol/L (133-145)
[2025-02-20 13:23] VITALS: BP 166/85; PULSE 88; RESP 21; TEMP 36.8; O2SAT 95
== END 2025-02-20 13:28 | disposition short-term general hospital (02) ==
PROVIDERS: Emergency Provider Emergency Medicine; PCP Family Medicine; Visit Provider Emergency Medicine
DX: S06.340A Traumatic hemorrhage of right cerebrum without loss of consciousness, initial encounter (principal); E11.9 Type 2 diabetes mellitus without complications; S60.415A Abrasion of left ring finger, initial encounter; I10 Essential (primary) hypertension; W01.10XA Fall on same level from slipping, tripping and stumbling with subsequent striking against unspecified object, initial encounter; Y92.238 Other place in hospital as the place of occurrence of the external cause; E78.5 Hyperlipidemia, unspecified; I25.10 Atherosclerotic heart disease of native coronary artery without angina pectoris; Z79.82 Long term (current) use of aspirin; Z79.84 Long term (current) use of oral hypoglycemic drugs; Z79.899 Other long term (current) drug therapy; Z87.891 Personal history of nicotine dependence; Z86.73 Personal history of transient ischemic attack (TIA), and cerebral infarction without residual deficits
CPT/HCPCS: 70450; 80048; 85025; 85610; 85730; 90715; 99285; A4216

== ENCOUNTER → 2025-02-20 | Outpatient (CLI) | payer MEDICARE, OTHER, SELFPAY ==
[2020-04-24 10:56] VITALS: BMI 26.7
== END | disposition home or self-care (01) ==
LOC: SL 10:44
PROVIDERS: PCP Family Medicine; Referring Provider Nurse Practitioner Acute Care; Visit Provider Nurse Practitioner Acute Care
DX: G47.33 Obstructive sleep apnea (adult) (pediatric) (principal)
CPT/HCPCS: 98960; G0463

== ENCOUNTER → 2025-03-21 | Outpatient (CLI) | payer MEDICARE, OTHER, SELFPAY ==
[2020-04-24 10:56] VITALS: BMI 26.7
[2025-03-21 15:12] LABS: Hematocrit 40.1 % (40-54); Hemoglobin 13.0 g/dL (13.0-16.5); Immature Granulocytes Count 0.030 X10^3/uL (0.0-0.0); Mean Corp Hgb Conc 32.4 g/dL (32-36); Mean Corpuscular Volume 99.8 fL (80-94); Mean Platelet Vol. 10.3 fl (6.2-12.0); NRBC Flagged by Analyzer 0 % (0-5); Platelet Count 194 K/mm3 (150-450); RBC Distribution Width CV 13.3 % (11.6-14.6); RBC Distribution Width SD 48.8 fl (35.1-43.9); Red Blood Count 4.02 M/mm3 (4.6-6.2); White Blood Count 7.2 K/mm3 (4.4-11.0)
[2025-03-21 16:21] LABS: AST(SGOT) 39 U/L (<=37); Alanine Aminotransfer ALT/SGPT 35 U/L (<=46); Albumin, Serum 4.1 g/dL (3.4-4.8); Alkaline Phosphatase 236 U/L (40-129); Anion Gap 11 (5-15); BUN 32 mg/dL (4-19); BUN/Creat Ratio 19.4 RATIO (10-20); Calcium,Total 9.4 mg/dL (7.6-11.0); Carbon Dioxide 25.0 mmol/L (21.0-32.0); Chloride 104 mmol/L (98-108); Ferritin 86 ng/mL (37-417); Globulin 2.7 g/dL (2.2-4.2); Glucose 179 mg/dL (70-99); Iron 88 ug/dL (65-175); Iron Binding Capacity,Total 312 ug/dL (250-450); Iron Binding Capacity,Unsat 224 ug/dL (228-428); Potassium 4.3 mmol/L (3.3-5.1); Vitamin D,25 Hydroxy 28.9 ng/mL (30-100)
[2025-03-21 16:50] LABS: Cholesterol 140 mg/dL (<=200); Low Density Lipoprotein Calc. 48 mg/dL; Triglycerides 170 mg/dL; Very Low Density Lipoprotein 34 mg/dL (5-40); cholesterol:hdl ratio screen 2.42
[2025-03-21 18:49] LABS: Creatinine, Urine (random) 109.00 mg/dL (39.00-259.00)
[2025-03-21 19:02] LABS: Microalbumin,Random Urine 2577.0 mg/L (<20 mg/L); Protein, Urine (Random) 391.0 mg/dL (0.0-12.0); Protein:Creat Ratio 3587 mg/g CRE (0-200)
--- OUTSIDE RECORDS SUMMARY | 2025-03-21 23:16 | XMS RPT_ITS | CCD ---
Author Organization [facility] CliniSy[facility]v Care Team Providers Care Corporate Trainer Name Role Phone Neo Tian Primary Care Provider Iván Case Primary Care Provider Zohaib STAHL, Dale Barrientos Unavailable Humberto STAHL, Hiram Barrientos Unavailable Dr. Iván Case Primary Care Provider [phone] Dr. Abundio Contreras Emergency Provider Dr. Myesha Mujica Admit Provider Dr. Myesha Mujica Attending Provider Dr. Myesha Mujica Other Provider Dr. Jennifer Winchester Other Provider FriendDr. Calle Attending Provider Dr. Neo Tian Attending Provider Dr. Myesha Mujica Referring Provider Dr. Mariana Paulson Attending Provider Dr. Iván Case Primary Care Provider [phone] Dr. Iván Case Referring Provider FriendDr. Calle Attending Provider Dr. Luc Yarbrough Other Provider Dr. Iván Case Primary Care Provider Dr. Marisa Sabillon Attending Provider FriendDr. Calle Referring Provider Dr. Iván Case Primary Care Provider Dr. Iván Case Referring Provider John CHILD LIFE SPECIALIST, CHILD LIFE SPECIALISTLiC Karla Attending Provider Iván Case Primary Care Provider Iván Case MD Primary Care Provider TOMY, GERMAINE Referring Unavailable IVÁN CASE Primary Care Unavailable SERJIO, SHERYL Y Referring Unavailable IVÁN CASE Primary Care Unavailable SERJIO, SHERYL Y Attending Unavailable IVÁN CASE Primary Care Unavailable TOMY, GERMAINE Referring Unavailable TOMY, GERMAINE Referring Unavailable IVÁN CASE Primary Care Unavailable TOMY, GERMAINE Referring Unavailable IVÁN CASE Primary Care Unavailable TOMY, GERMAINE Referring Unavailable IVÁN CASE Primary Care Unavailable Karla Sauer Referring Unavailable IVÁN CASE Primary Care Unavailable NAIMA LEE Attending Unavailable SERJIO, SHERYL Y Referring Unavailable IVÁN CASE Primary Care Unavailable SERJIO, SHERYL Y Attending Unavailable SERJIO, SHERYL Y Referring Unavailable IVÁN CASE Primary Care Unavailable IVÁN CASE Primary Care Unavailable OLESYA VASQUEZ Attending Unavailable Iván Case MD Primary Care Provider IVÁN CASE Primary Care Unavailable SERJIO, SHERYL Y Referring Unavailable IVÁN CASE Primary Care Unavailable SERJIO, SHERYL Y Referring Unavailable KARLA CASTRO Attending Unavailable IVÁN CASE Primary Care Unavailable SERJIO, SHERYL Y Referring Unavailable KARLA CASTRO Attending Unavailable IVÁN CASE Primary Care Unavailable SERJIO, SHERYL Y Referring Unavailable IVÁN CASE Primary Care Unavailable SERJIO, SHERYL Y Referring Unavailable KARLA CASTRO Attending Unavailable IVÁN CASE Primary Care Unavailable SERJIO, SHERYL Y Referring Unavailable IVÁN CASE Primary Care Unavailable SERJIO, SHERYL Y Referring Unavailable MICHAEL HUMPHREYS Attending UnavailIVÁN Ackerman Primary Care Unavailable IVÁN CASE Primary Care Unavailable SERJIO, SHERYL Y Referring Unavailable KARLA CASTRO Attending Unavailable IVÁN CASE Primary Care Unavailable SERJIO, SHERYL Y Referring Unavailable KARLA CASTRO Attending Unavailable IVÁN CASE Primary Care Unavailable SERJIO, SHERYL Y Referring Unavailable KARLA CASTRO Attending Unavailable SCHINIVÁN PHAM E Primary Care Unavailable SERJIO, SHERYL Y Referring Unavailable SCHINNER, IVÁN E Primary Care Unavailable SERJIO, SHERYL Y Referring Unavailable SCHINNER, IVÁN E Primary Care Unavailable SERJIO, SHERYL Y Referring Unavailable KARLA CASTRO Attending Unavailable SCHBRIEN, IVÁN E Primary Care Unavailable SERJIO, SHERYL Y Referring Unavailable SCHINNER, IVÁN E Primary Care Unavailable SERJIO, SHERYL Y Referring Unavailable SCHINNER, IVÁN E Primary Care Unavailable SERJIO, SHERYL Y Referring Unavailable SCHINNER, IVÁN E Primary Care Unavailable SERJIO, SHERYL Y Referring Unavailable SCHINNER, IVÁN E Primary Care Unavailable SERJIO, SHERYL Y Referring Unavailable ELBA SAMANIEGO Attending Unavailable SCHINDAVID, IVÁN E Primary Care Unavailable SERJOI, SHERYL Y Referring Unavailable ELBA SAMANIEGO Attending Unavailable GERMAINE BRAY Attending Unavailable SHARIFA, IVÁN E Primary Care Unavailable GERMAINE BRAY Attending Unavailable GERMAINE BRAY Referring Unavailable SCHINNER, IVÁN E Primary Care Unavailable GERMAINE BRAY Attending Unavailable IVÁN CASE Primary Care Unavailable KARLA SAUER Attending Unavailable SCHIVÁN TESFAYE E Primary Care Unavailable KARLA SAUER Attending Unavailable GERMAINE BRAY Referring Unavailable SCHIVÁN TESFAYE E Primary Care Unavailable KARLA SAUER Attending Unavailable IVÁN CASE Primary Care Unavailable Iván Case MD Primary Care Provider Iván Case Primary Care Unavailable Iván Case Attending Unavailable Elba Berger NP Referring Unavailable Elba Berger NP Attending Unavailable Iván Case E Primary Care Unavailable SchIván tesfaye Referring Unavailable SchIván tesfaye Primary Care Unavailable Iván Case Attending Unavailable Iván Case E Primary Care Unavailable Iván Case Attending Unavailable Iván Case E Primary Care Unavailable Neo Tian Attending Unavailable SchIván tesfaye E Primary Care Unavailable Neo Tian Attending Unavailable Iván Case E Primary Care Unavailable Neo Tian Attending Unavailable Iván Case E Primary Care Unavailable Jennifer Solorzano Attending Unavailable Nilay Ellsworth Attending Unavailable Schinner, Iván E Primary Care Unavailable Schinner, Iván E Referring Unavailable Ab CHILD LIFE SPECIALIST, Elba Attending Unavailable Schinner, Iván E Primary Care Unavailable Schinner, Iván E Primary Care Unavailable Schinner, Iván E Referring Unavailable Carlie CHILD LIFE SPECIALIST, Iván Oh Attending Unavailable Schinner, Iván E Primary Care Unavailable Nilay Ellsworth Attending Unavailable Schinner, Iván E Primary Care Unavailable Neo Tian Attending Unavailable Schinner, Iván E Primary Care Unavailable Neo Tian Attending Unavailable Schinner, Iván E Primary Care Unavailable Nilay Ellsworth Attending Unavailable Schinner, Iván E Primary Care Unavailable Nilay Ellsworth Attending Unavailable Schinner, Iván E Referring Unavailable Berger CHILD LIFE SPECIALIST, Elba Attending Unavailable Schinner, Iván E Primary Care Unavailable Schinner, Iván E Primary Care Unavailable Asmita, Neo Attending Unavailable Schinner, Iván E Primary Care Unavailable Ab CHILD LIFE SPECIALIST, Elba Referring Unavailable Berger CHILD LIFE SPECIALIST, Elba Attending Unavailable Schinner, Iván E Referring Unavailable Schinner, Iván E Attending Unavailable Schinner, Iván E Primary Care Unavailable Schinner, Iván E Referring Unavailable Carlie CHILD LIFE SPECIALIST, Iván Oh Attending Unavailable Schinner, Iván E Primary Care Unavailable IBAN RAMIREZ Attending Unavailable JENNIFER SOLORZANO Referring Unavailable SHARIFA, IVÁN Primary Care Unavailable MOISES HOGLUIN Admitting Unavailable GARY DEUTSCH Consulting Unavailable MICKY MONTELONGO Consulting Unavailable SCHINDAVID, IVÁN Primary Care Unavailable Medications Current Medications Medication Drug Class(es) Dates Sig (Normalized) Sig (Original) acetaminophen 500 mg oral tablet (6 sources) Start: 02-21-2025 End: 03-03-2025 take 2 tablets by mouth every eight hours acetaminophen (Tylenol) 500 MG tablet Take 2 tablets (1,000 mg) by mouth every 8 hours for 10 days. 02/21/2025 03/03/2025 Active Start: 02-21-2025 End: 02-21-2025 take 1 tablet by mouth every eight hours 1,000 mg, Oral, Every 8 hours, First dose on Wed02/21/25 at 0700, Maximum dose of acetaminophen is 4000 mg from all sources in 24 hours. Start: 12-16-2019 acetaminophen (TYLENOL) tablet 1,000 mg Start: 12-15-2019 End: 12-16-2019 acetaminophen (OFIRMEV) infu tone 1,000 mg acetaminophen 325 mg / oxyCODONE hydrochloride 5 mg oral tablet (20 sources) Opioid Agonist Start: 09-04-2021 take 1 tablet by mouth every six hours Oxycodone-Acetaminophen (Percocet) 5-325 mg tablet Active 1 - 2 TABLET PO EVERY 6 HOURS 14 September 04, 2021 Start: 05-22-2021 End: 07-02-2021 take 1 tablet by mouth every six hours Oxycodone-Acetaminophen (Percocet) 5-325 mg tablet Discontinued 1 TABLET PO EVERY 6 HOURS 28 May 22, 2021 July 02, 2021 1:15pm Start: 12-20-2019 End: 12-27-2019 take 1 tablet by mouth every six hours as needed for pain, then take 1 tablet by mouth as needed for pain oxyCODONE-acetaminophen (PERCOCET) 5-325 MG per tablet Indications: S/P CABG x 3 , CAD in [facility] artery Take 1 tablet by mouth every 6 hours as needed for Pain for up to 7 days. Intended supply: 7 days. Take lowest dose possible to manage pain 28 tablet 0 12/20/2019 12/27/2019 Active End: 01-17-2024 take 1-2 tablets by mouth every eight hours as needed oxyCODONE-acetaminophen (PERCOCET) 5-325 mg tablet Take 1-2 tablets by mouth every 8 hours as needed for pain. 01/17/2024 Discontinued (Course of therapy completed) Comment on above: Take 1-2 tablets by mouth every 8 hours as needed for pain. alendronic acid 70 mg oral tablet (20 sources) Bisphosphonate take 1 tablet by mouth every week in the morning alendronate (FOSAMAX) 70 mg tablet Take 70 mg by mouth one time a week. In AM with cup of water on empty stomach. Nothing else by mouth and stay upright for 30 min. Active Comment on above: Take 70 mg by mouth one time a week. In AM with cup of water on empty stomach. Nothing else by mouth and stay upright for 30 min. amoxicillin 875 mg / clavulanate 125 mg oral tablet (20 sources) Penicillin-class Antibacterial Start: 09-04-20 take 875 mg by mouth twice daily at mealtime Amoxicillin-Pot Clavulanate Active 875 MG PO TWICE DAILY WITH MEALS September 04, 2021 5:35pm take with food Start: 09-04-2021 End: 01-17-2024 amoxicillin-clavulanic acid (AUGMENTIN) 875-125 mg per tablet Take by mouth. 09/04/2021 01/17/2024 Discontinued (Course of therapy completed) Comment on above: Take by mouth. aspirin 325 mg oral tablet (20 sources) Platelet Aggregation Inhibitor, Nonsteroidal Anti-inflammatory Drug Start: 01-19-2022 take 325 mg by mouth once daily Aspirin Active 325 MG PO DAILY January 18, 2022 11:00pm Start: 09-28-2019 aspirin, enter ic coated (JAILENE LOW DOSE ASPIRIN) 81 mg EC tablet Take by mouth. 09/28/2019 Active End: 01-17-2024 take 1 tablet by mouth once daily aspirin (JAILENE CHEWABLE ASPIRIN) 81 mg chewable tablet Take 81 mg by mouth once daily. 01/17/2024 Discontinued (Course of therapy completed) take 1 tablet by donell once daily aspirin 81 MG tablet Take 81 mg by mouth daily 0 Active Comment on above: Take 81 mg by mouth once daily. Take by mouth. bisacodyl 10 mg rectal suppository (1 source) Stimulant Laxative Start: 12-15-19 take 10 mg rectal route once daily as needed for constipation 10 mg, Rectal, DAILY PRN, Constipation, Starting Wed12/15/19 at 1255 Second line therapy for constipation, After 24 hours, if no result from first line PRN therapy, give second line therapy in combination with first line therapy. Post-op cholecalciferol, vitamin D3, (VITAMIN D3 ORAL) (20 sources) take 1 capsule by mouth once daily cholecalciferol, vitamin D3, (VITAMIN D3 ORAL) Take 1 capsule by mouth once daily. Active take 1 capsule by mouth once shilpi ly cholecalciferol, vitamin D3, (VITAMIN D3 ORAL) Take 1 capsule by mouth once daily. 0 Active Comment on above: Take 1 capsule by mo ut once daily. cyanocobalamin, vitamin B-12, (VITAMIN B12 ORAL) (20 sources) take 1 tablet by mouth once daily cyanocobalamin, vitamin B-12, (VITAMIN B12 ORAL) Take 1 tablet by mouth once daily. Active take 1 tablet by mouth once estrella y cyanocobalamin, vitamin B-12, (VITAMIN B12 ORAL) Take 1 tablet by mouth once daily. 0 Active Comment on above: Take 1 tablet by [facility] once daily. dapagliflozin 10 mg oral tablet (10 sources) Sodium-Glucose Cotransporter 2 Inhibitor Start: 12-01-19 take 1 tablet by mouth once dapagliflozin propanediol (FARXIGA) 10 mg tablet Take 1 tablet by mouth every afternoon. 12/01/2023 Active Start: 12-01-2023 dapagliflozin propanediol (FARXIGA) 10 mg tablet 12/01/2023 Active diazePAM 2 mg oral tablet (1 source) Benzodiazepine Start: 11-02-2023 End: 11-04-2023 diazePAM (VALIUM) 2 mg tablet Indications: Claustrophobia Take 1 tablet by mouth once daily for 2 doses. Take one tab 30 minutes before MRI 2 tablet 0 11/02/2023 11/04/2023 Active Comment on above: Take 1 tablet by mouth once daily for 2 doses. Take one tab 30 minutes before MRI docusate sodium 50 mg / sennosides, long term 8.6 mg oral tablet (2 sources) Start: 12-15-2019 take 2 tablets by mouth once daily as needed for constipation sennosides-docusat e sodium (SENOKOT-S) 8.6-50 MG tablet Take 2 tablets by mouth daily as needed for Constipation 0 12/20/2019 Active dorzolamide 20 mg/ml / timolol 5 mg/ml ophthalmic solution (20 sources) Carbonic Anhydrase Inhibitor, beta-Adrenergic Bridgett Start: 09-28-2019 Dorzolamide-Timolo l (Cosopt) 22.3-6.8 mg/mL drops Active 1 DRP OPHTHALMIC TWICE A DAY September 28, 2019 12:00am Start: 04-18-2018 take 1 drop(s) into the eye(s) twice daily dorzolamide-timolol (COSOPT) 22.3-6.8 mg/mL ophthalmic solution Use 1 Drop in both eyes twice daily. 04/18/2018 Active Start: 04-18-2018 take 1 drop(s) into the eye(s) twice daily dorzolamide-timolol (COSOPT) 22.3-6.8 mg/mL ophthalmic solution Use 1 Drop in both eyes twice daily. 0 04/18/2018 Active Comment on above: Use 1 Drop in both e yes twice daily. DULoxetine 60 mg delayed release oral capsule (20 sources) Serotonin and Norepinephrine Reuptake Inhibitor Start: 0 take 60 mg by mouth once daily Duloxetine Active 60 MG PO DAILY October 17, 2019 4:25pm Start: 09-28-2019 End: 10-17-2019 Duloxetine Discontinued MG P O September 28, 2019 12:00am October 17, 2019 4:26pm Comment on above: Take 60 mg by mouth once daily. 0.4 ml enoxaparin sodium 100 mg/ml prefilled syringe (1 source) Low Molecular Weight Heparin Start: 12-16-2019 enoxaparin (LOVENOX) injection 40 mg enteric contrast (will be provided with radiology test) (1 source) Start: 04-06-2023 End: 04-07-2023 enteric contrast (will be provided with radiology test) For CT ABD/PEL W IVCON Routine order Administer, As Directed One Time Only, via Oral, Rectal, both Oral and Rectal, Enteric Tube, Stoma or Indwelling Catheter, Enteric Contrast as designated per enteric contrast guidelines 1 Each 0 04/06/2023 04/07/2023 Active Comment on above: For CT ABD/PEL W IVC ON Routine order Administer, As Directed One Time Only, via Oral, Rectal, both Oral and Rectal, Enteric Tube, Stoma or Indwelling Catheter, Enteric Contrast as designated per enteric contrast guidelines insulin glargine 100 unt/ml injectable solution (2 sources) Insulin Analog Start: 12-17-2019 End: 12-19-2019 insulin glargine (LANTUS) injection vial 18 Units insulin lispro 100 unt/ml injectable solution (2 sources) Insulin Analog Start: 12-17-2019 insulin lispro (HUMALOG) injection vial 5 Units Start: 12-17-2019 insulin lispro (HUMALOG) injection vial 0-6 Units iv contrast (will be provided with radiology test) (1 source) Start: 04-06-2023 End: 04-07-2023 iv contrast (will be provided with radiology test) CT ABD/PEL -Inject, intravenously, once for 1 dose.No IV access, insert saline lock prior to the beginning of sedation, infusion, injection of imaging exam. Discontinue saline lock post exam. If Pt. has a central line or IVAD, may access for administration according to line specific nursing protocol. Once exam is complete flush line and de-access according to line specific nursing protocol in the CT contrast administration guidelines link. 1 Each 0 04/06/2023 04/07/2023 Active Comment on above: CT ABD/PEL -Inject, intravenously, once for 1 dose.No IV access, insert saline lock prior to the beginning of sedation, infusion, injection of imaging exam. Discontinue saline lock post exam. If Pt. has a central line or IVAD, may access for administration according to line specific nursing protocol. Once exam is complete flush line and de-access according to line specific nursing protocol in the CT contrast administration guidelines link. lamoTRIgine 200 mg oral tablet (20 sources) Mood Stabilizer, Anti-epileptic Agent Start: 02-22-2025 End: 02-22-2026 take 1 tablet by mouth once daily lamoTRIgine (LaMICtal) 200 MG tablet Take 1 tablet (200 mg) by mouth daily. 02/22/2025 02/22/2026 Active Start: 02-20-2025 End: 02-21-2025 take 200 mg by mouth once daily 200 mg, Oral, Daily, F irst dose on Wed02/20/25 at 1630 Start: 01-13-2024 take 1 tablet by donell th twice daily lamoTRIgine (LAMICTAL) 200 mg tablet Take 200 mg by mouth two times a day. 0 01/13/2024 Active Start: 03-30-2023 End: 01-17-2024 lamoTRIgine (LAMICTAL) 100 m g tablet take 1/2 tablet by mouth once daily to BE TAKEN ALONG WITH 200 MN... (REFER TO PRESCRIPTION NOTES). 03/30/2023 01/17/2024 Discontinued (Course of therapy completed) End: 01-17-2024 take 1 tablet by mouth once daily lamoTRIgine ER (LAMICTAL XR) 250 mg 24 hr tablet Take by mouth once daily. 01/17/2024 Discontinued (Course of therapy completed) Comment on above: Take by mouth once d aily. take 1/2 tablet by m outh once daily to BE TAKEN ALONG WITH 200 MN... (REFER TO PRESCRIPTION NOTES). lidocaine 0.04 mg/mg medicated patch (1 source) Antiarrhythmic, Amide Local Anesthetic Start: 12-15-2019 lidocaine 4 % external patch 2 patch losartan potassium 50 mg oral tablet (20 sources) Angiotensin 2 Receptor Bridgett Start: 02-22-2025 End: 02-22-2026 take 1 tablet by mouth once daily losartan (Cozaar) 50 MG tablet Take 1 tablet (50 mg) by mouth daily. 02/22/2025 02/22/2026 Active Start: 02-21-2025 End: 02-21-2025 take 50 mg by mouth once daily 50 mg, Oral, Daily, Fir st dose on Wed02/21/25 at 0900 Start: 05-06-2023 take 1 tablet by mouth once lo sartan (COZAAR) 50 mg tablet Take 1 tablet by mouth every afternoon. 05/06/2023 Active Comment on above: Take 1 tablet by donell th every afternoon. magnesium hydroxide 80 mg/ml oral suspension (1 source) Start: 12-15-19 20 take 30 mL by mouth once daily as needed for constipation 30 mL, Oral, DAILY PRN, Constipation, Starting Wed12/15/19 at 1255 First line therapy for constipation. Post-op 50 ml magnesium sulfate 40 mg/ml injection (1 source) Start: 12-15-19 20 2 g, Intravenous, at 25 mL/hr, Administer over 2 Hours, PRN, Other, hypomagnesemia, Starting Wed12/15/19 at 1255 Via central line - If patient has acute/chronic renal failure do not initiate protocol, call MD for management. M ag level & nbsp; Dose Less than or equal to 1.0 &nb sp; &nb sp; Give 2 grams at 1 gm/hr. Call MD. Monitor BP and EKG. Repeat Magnesium level 60 minutes post infusion. 1.1 - 1.5 &nb sp; &nb sp; &nb sp; &nb sp; &nb sp; &nb sp; &nb sp; &nb sp; &nb sp; &nb sp; &nb sp; &nb sp;Give 2 grams at 1 gm/hr. Repeat Magnesium level 60 minutes post infusion 1.6 - 1.9 &nb sp; &nb sp; &nb sp; &am p;nbsp; &nbsp ; &nbsp ; &nbsp ; &nbsp ; &nbsp ; &nbsp ; &nbsp ; &nbsp ; Give 2 grams at 1 gm/hr. Repeat Magnesium level 60 minutes post infusion [address] than 1.9 &nb sp; &nb sp; &nb sp; &nb sp; &nb sp; &nb sp; &nb sp; &nb sp;No coverage Post-op metFORMIN hydrochloride 1000 mg oral tablet (20 sources) Biguanide Start: 09-04-20 Metformin Active 1000 MG PO TWICE A DAY 0 September 04, 2021 4:45pm take 1/2 pill twice a day for one week, then increase to one twice a day thereafter Start: 10-17-2019 End: 09-04-2021 take 1000 mg by mouth twice daily Metformin Discontinued 1000 MG PO TWICE A DAY October 17, 2019 4:25pm September 04, 2021 4:45pm Start: 09-28-2019 End: 10-17-2019 Metformin Discontinued MG PO September 28, 2019 12:00am October 17, 2019 4:26pm Comment on above: Take 1,000 mg by donell th twice daily with meals. 50 ml potassium chloride 0.4 meq/ml injection (2 sources) Start: 12-15-2019 20 mEq, Oral, PRN, hypokalemia, Starting Wed12/15/19 at 1255 If patient is intubated or not tolerating PO use PRN IV replacement protocol Potassium level Dose < 3.0 = Give 20 mEq x 3 doses 3.0-3.6 = Give 20 mEq x 2 doses Recheck potassium level 2 hour after replacement given, place order for lab under [place] If potassium level < 3 after 1st replacement: Call surgeon. Do not crush or break. Post-op Start: 12-15-2019 20 mEq, Intrav enous, at 50 mL/hr, Administer over 60 Minutes, PRN, Other, hypokalemia, Starting Wed12/15/19 at 1255 Via central line - do not use if urine output below 30 mL/hr or if patient is on total parental nutrition, peritoneal or hemodialysis. Potassium Level Dose: Less than or equal to 3.5-Give 20mEq x 2 doses. Less than or equal to 2-Call provider. Repeat potassium level 2 hour post-infusion and follow protocol as indicated. Post-op primidone 50 mg oral tablet (20 sources) Anti-epileptic Agent Start: 02-20-2025 End: 02-21-2026 take 1 tablet by mouth once daily primidone (Mysoline) 50 MG tablet Take 1 tablet (50 mg) by mouth Nightly. 02/21/2025 02/21/2026 Active Start: 09-03-2023 take 1 tablet by mouth once pr imidone (MYSOLINE) 50 mg tablet Take 1 tablet by mouth every afternoon. 09/03/2023 Active Comment on above: Take 1 tablet by donell th every afternoon. rosuvastatin calcium 10 mg oral tablet (20 sources) HMG-CoA Reductase Inhibitor Start: End: take 1 tablet by mouth once daily rosuvastatin (Crestor) 10 MG tablet Take 1 tablet (10 mg) by mouth Nightly. 02/21/2025 02/21/2026 Active Start: 02-20-2025 End: 02-21-2025 take 10 mg by mouth once daily 10 mg, Oral, Nightly, F irst dose on Wed02/20/25 at 2100 Start: 05-06-2023 End: 01-17-2024 take 1 tablet by mouth once daily in the evening rosuvastatin (CRESTOR) 10 mg tablet Take 10 mg by mouth every evening. 05/06/2023 01/17/2024 Discontinued Start: 05-31-2020 End: 01-17-2024 take 1 tablet by mouth once daily at bedtime rosuvastatin (CRESTOR) 40 mg tablet Take 40 mg by mouth daily at bedtime. 08/12/2020 01/17/2024 Discontinued (Course of therapy completed) Comment on above: Take 40 mg by mouth daily at bedtime. Take 10 mg by mouth every evening. sennosides, long term 8.6 mg oral tablet (2 sources) Start: 02-21-2025 End: 02-21-2025 take 1 tablet by mouth once daily 8.6 mg (1 tablet), Oral, Nightly, First dose on Wed02/21/25 at 2100 Start: 02-21-2025 End: 02-21-2025 take 1 tablet by mouth once daily 8.6 mg (1 tablet), O ral, Nightly, First dose on Wed02/21/25 at 2100 traMADol hydrochloride 50 mg oral tablet (2 sources) Opioid Agonist Start: 12-16-2021 End: 12-23-2021 take 1 tablet by mouth every four hours as needed for pain ULTRAM 50 MG TABS Take 1 tablet by mouth every four hours as needed for pain tramadol [id number] Hiram Paul MD take 1-2 tablets by mouth three times daily as needed TRAMADOL HCL 50 MG TABS 1-2 tablet by mo [facility] three times a day as needed tramadol [id number] Gemini Razo LPN Completed/Discontinued Medications Medication Drug Class(es) Dates Sig (Normalized) Sig (Original) acetaminophen 325 mg / HYDROcodone bitartrate 5 mg oral tablet (7 sources) Opioid Agonist Start: 09-01-2021 End: 09-04-2021 take 1 tablet by mouth every eight hours Hydrocodone-Aceta minophen ([place]) 5-325 mg Tablet Discontinued 1 TABLET PO Q8H September 01, 2021 12:00am September 04, 2021 8:18am 20 ml albumin human, long term 250 mg/ml injection (1 source) Human Serum Albumin Start: 12-15-2019 End: 12-16-2019 25 g, Intravenous, PRN, Other, first fluid bolus challenge PRN: PAD below goal (18) and Low CI (less than 2.0) and/or Low BP (less than 90 SBP and/or less than 60 MAP) and/or Low urine output (less than 30ml/hr) per hemodynamic goals, Starting Wed12/15/19 at 1255, For 1 dose Use if hgb greater than 7.5 and PAD below goal (18) and Low CI (less than 2.0) and/or Low BP (less than 90 SBP and/or less than 60 MAP) and/or Low urine output (less than 30ml/hr) per hemodynamic goals If hemodynamic goals unattained, proceed to second fluid bolus challenge. & nbsp; If hgb less than 7.5 notify surgeon for orders. Post-op ALPRAZolam 0.25 mg disintegrating oral tablet (1 source) Benzodiazepine Start: 12-15-2019 End: 12-15-2019 ALPRAZolam (NIRAVAM) dissolvable tablet 0.25 mg amLODIPine 10 mg oral tablet (20 sources) Dihydropyridine Calcium Channel Bridgett Start: 12-16-2019 End: 12-20-2019 amLODIPine (NORVASC) tablet 5 mg Start: 11-20-2019 End: 01-17-2024 take 10 mg by mouth once daily Amlodipine Discontinued 10 MG PO DAILY 90 May 14, 2020 11:23am September 17, 2021 9:13am Comment on above: Take 10 mg by mouth once daily. amoxicillin 500 mg oral capsule (20 sources) Penicillin-class Antibacterial Start: 05-03-2023 End: 01-17-2024 amoxicillin (AMOXIL) 500 mg capsule 05/03/2023 01/17/2024 Discontinued (Course of therapy completed) Start: 05-03-2023 take 4 capsules by m outh every hour amoxicillin (AMOXIL) 500 mg capsule take 4 capsules by mouth 1 hour prior to procedure 0 05/03/2023 Active Comment on above: take 4 capsules by m outh 1 hour prior to procedure amylase [id number] unt / lipase [id number] unt / protease [id number] unt delayed release oral capsule (20 sources) Start: 08-02-20 End: 01-17-20 24 take 2 capsules by mouth three times daily at mealtime, then take 1 capsule by mouth before mealtime [id number] ase (CREON 36) 36,000-114,000- 180,000 unit delayed release capsule Indications: Exocrine pancreatic insufficiency Take 2 caps by mouth 3 times daily with meals and 1 cap with each snack. Take 1st cap before meal starts and the 2nd cap intermediate through. 240 capsule 5 10/13/2023 01/17/2024 Discontinued (Course of therapy completed) Comment on above: Take 2 caps by mouth 3 times daily with meals and 1 cap with each snack. Take 1st cap before meal starts and the 2nd cap intermediate through. atorvastatin 80 mg oral tablet (20 sources) HMG-CoA Reductase Inhibitor Start: 12-16-19 End: 01-17-20 take 1 tablet by mouth once daily in the evening atorvastatin (LIPITOR) 80 mg tablet Take 1 tablet by mouth every evening. 12/20/2019 01/17/2024 Discontinued (Course of therapy completed) Comment on above: Take 1 tablet by donell th every evening. calcium gluconate 2 g in sodium chloride 0.9 % 100 mL IVPB (1 source) Start: 12-15-19 2 g, Intravenous, PRN, Starting Wed12/15/19 at 1255, Until Discontinued Via central line. Infuse over 2 hours, Repeat serum ionized calcium 2 hours [address] infusion completed. Place order for recheck under surgeon Post-op ceFAZolin 2000 mg injection (1 source) Cephalosporin Antibacterial Start: 12-15-19 End: 12-16-19 2 g, Intravenous, EVERY 8 HOURS, 5 doses, First dose on Wed12/15/19 at 1315, Last dose on Wed12/16/19 at 2115, Post-op chlorhexidine gluconate 1.2 mg/ml mouthwash (2 sources) Start: 12-15-19 End: 12-17-19 take 15 mL by mouth twice daily 15 mL, Mouth/Throat, 2 TIMES DAILY, First dose on Wed12/15/19 at 1315, For 7 days Rinse and spit. Do not swallow. Post-op Start: 12-15-2019 End: 12-15-2019 chlorhexidine (PERIDEX) 0.12 % solution 15 mL cholecalciferol 9.52 unt/ml / glucose 357 mg/ml oral gel (2 sources) Vitamin D Start: 02-20-2025 End: 02-21-2025 dorzolamide 20 mg/ml ophthalmic solution (20 sources) Carbonic Anhydrase Inhibitor End: 01-17-2024 dorzolamide (TRUSOPT) 2 % ophthalmic solution Use in eyes. 01/17/2024 Discontinued take 1 drop(s) into the eye(s) twice daily DORZOLAMIDE HCL 2 % SOLN 1 drop into bot h eyes twice a day dorzolamide [id number] Gemini Razo LPN Comment on above: Use in eyes. doxepin hydrochloride 10 mg oral capsule (20 sources) Tricyclic Antidepressant Start: 02-20-2025 End: 02-21-2025 doxepin capsule 10 mg Take 10 mg by mouth as needed. Active Comment on above: Take 10 mg by mouth as needed. doxycycline hyclate 100 mg oral capsule (20 sources) Tetracycline-class Drug Start: 01-20-20 End: 01-17-20 doxycycline hyclate (VIBRAMYCIN) 100 mg capsule Take by mouth. 01/19/2022 01/17/2024 Discontinued (Course of therapy completed) Comment on above: Take by mouth. empagliflozin 10 mg oral tablet (20 sources) Sodium-Glucose Cotransporter 2 Inhibitor Start: 08-06-20 23 End: 01-17-20 24 take 1 tablet by mouth once JARDIANCE 10 mg tablet Take 1 tablet by mouth every afternoon. 08/06/2023 01/17/2024 Discontinued (Course of therapy completed) Comment on above: Take 1 tablet by donell th every afternoon. 4 ml furosemide 10 mg/ml injection (1 source) Loop Diuretic Start: 12-17-19 End: 12-18-19 furosemide (LASIX) injection 20 mg glucagon (rdna) 1 mg injection (3 sources) Antihypoglycemic Agent Start: 02-21-20 End: 02-22-20 Start: 12-15-2019 take 1 mL intravenou s route every hour 1 mg, Intramuscular, PRN, Low blood sugar, Blood glucose less than 70 mg/dL and patient NOT ALERT or NPO and does not have IV access., Starting Wed12/15/19 at 1255 After administration, attempt intravenous access and start D5W at 100 mL/hr. Repeat blood glucose in 15 minutes x2 and notify provider. 50 ml glucose 50 mg/ml injec tion (7 sources) Start: 02-20-2025 End: 02-21-2025 Start: 02-20-2025 End: 02-21-2025 Start: 12-15-2019 15 g, Oral, [place] N, Low blood sugar, Starting Wed12/15/19 at 1255 If blood glucose less than 50 mg/dL and patient ALERT and TOLERATING PO, give 2 tubes glucose gel. If blood glucose less than 70 mg/dL and patient ALERT and TOLERATING PO, give 1 tube glucose gel. Repeat blood glucose in 15 minutes. If blood glucose is less than 70 mg/dL, repeat treatment and recheck blood glucose in 15 minutes x2 and notify provider. Post-op Start: 12-15-2019 12.5 g, Intrav enous, PRN, Low blood sugar, Blood glucose less than 70 mg/dL and patient NOT ALERT or NPO., Starting Wed12/15/19 at 1255 If patient does not respond within 5 minutes, repeat dose x1. Start D5W at 100 mL/hour until ordering provider can be reached. Repeat blood glucose in 15 minutes. If blood glucose is less than 70 mg/dL, repeat treatment and recheck blood glucose in 15 minutes x2. If using Glucostabilizer, dose as instructed per system. Post-op Start: 12-15-2019 100 mL/hr, Int ravenous, at 100 mL/hr, PRN, Low blood sugar, Starting Wed12/15/19 at 1255 Start infusion following administration of dextrose 50% or glucagon. Post-op 0.5 ml heparin sodium, porcine 11860 unt/ml prefilled syringe (2 sources) Unfractionated Heparin, Anti-coagulant Start: 02-21-2025 End: 02-21-2025 inject 1 dose by subcutaneous injection three times daily 5,000 Units, SubCUTAneous, Every 8 hours scheduled (3 times per day), First dose on Wed02/21/25 at 0830 1 ml hydrALAZINE hydrochloride 20 mg/ml injection (2 sources) Arteriolar Vasodilator Start: 02-20-2025 End: 02-21-2025 10 mg, IntraVENous, Every 2 hour PRN, high blood pressure, 2nd line for SBP goals 95, Starting on Wed02/20/25 at 2311 hydroCHLOROthiazide 25 mg oral tablet (18 sources) Thiazide Diuretic Start: 11-20-2019 End: 01-19-2020 take 25 mg by mouth once daily Hydrochlorothiazide Discontinued 25 MG PO DAILY November 19, 2019 11:00pm January 19, 2020 9:02am Start: 10-17-2019 End: 10-18-2019 take 12.5 mg by mouth once daily Hydrochlorothiazide Discontinued 12.5 MG PO DAILY October 17, 2019 12:00am October 18, 2019 1:07pm Insulin Lispro (Humalog) injection 0-6 Units (2 sources) Start: 02-20-2025 End: 02-21-2025 Insulin Lispro (Humalog) injection 0-6 Units insulin regular (MYXREDLIN) 100 units in sodium chloride 0.9 % 100 ml infusion (1 source) Start: 12-15-2019 End: 12-17-2019 take 1 [IU] intravenous route every hour 1 Units/hr (1 mL/hr), Intravenous, at 1 mL/hr, CONTINUOUS, Starting Wed12/15/19 at 1315 Target glucose 90-120mg/dl; if glucose <40 or >500 draw confirmation and send to lab; While on insulin drip follow hypoglycemic orders as outlined below. o Blood Glucose Initial Administration Rate/Additional IV Insulin Bolus protocol > 90-120mg/dl - 1 unit/hr 121-150mg/dl - 2 units/hr 150-180mg/dl - 2.5 units/hr 181- 240mg/dl - 3.5 units/hr + 4 unit bolus 241-300mg/dl - 5 units/hr + 6 unit bolus 301-360mg/dl - 6.5 units/hr + 8 unit bolus > 360mg/dl - 8 units/hr + 10 unit bolus o Glucose by finger stick 30 minutes after infusion has started, then per Floor Blood Glucose guidelines below o When BGT is between 90-120mg/dl with < 15mg/dl change and insulin rate remains unchanged x 3 hours, then may test every 2 hours. o Adjust insulin infusion rate in response to blood glucose levels as follows: o < 60mg/dl: BGT check in 30 minutes: 1. Stop infusion. 2. Give 25ml dextrose 50% IVP, recheck BG in 30 mins When BG is > 80 and < 120mg/dl, restart drip at 50% of the previous rate, recheck in 30 minutes. If BG > 120, restart drip at 75% of the previous rate, recheck in 30 minutes o 60-69mg/dl: BGT check in 30 minutes: 1. Stop infusion. If previous BG > 100mg/dl give 25ml dextrose 50% IVP, recheck BG in 30 minutes. When BG > 80 and < 120mg/dl, restart drip at 50% of previous rate, recheck BG in 30 minutes. If BG > 120mg/dl or more restart drip at 75% of the previous rate, recheck BG in 30 minutes. o 70-89mg/dl: BGT check every 1 hour. Has BG dropped > 10mg/dl from the last BG? Yes: Decrease rate by 50% Has BG dropped from the last BG < 10mg/dl or = to 10mg/dl? Yes: decrease the rate by 0.5units/hr. If BG greater than or equal to the last test, maintain same rate. o 90-120mg/dl: BGT check in 1 hour. TITRATE DRIP RATE TO MAINTAIN THIS RANGE Has BG increased > 10mg/dl from the last BG? Yes: increase rate by 0.5units/hr. Has BG dropped from the last BG by more than 10mg/dl? Yes: decrease the rate by 0.5 units/hr: No: Same rate. o 121-150mg/dl: BGT check in 1 hour Has BG dropped 20-50mg/dl from last BG? Yes: Same rate. Has BG increased from last BG by > 20mg/dl? Yes: increase rate by 1.5 units/hr. Has BG dropped by more than 50mg/dl? Yes: decrease rate by 50%. Is BG within 20mg/dl of the last test? Yes: increase rate by 1 unit/hr. o 151-180mg/dl: BGT check every 1 hour Has BG dropped > 30mg/dl? Yes: same rate Has BG dropped from last BG by < 30 mg/dl OR is BG higher than the last test? Yes: increase rate by 1.5 units/hr. o 181-240mg/dl: BGT check in 1 hour Is BG 50-100mg/dl lower from the last BG? Yes: continue at the same rate. Is BG lower than the last BG by >100mg/dl? Yes: decrease rate by 25%. Is BG lower than the last BG by < 50mg/dl OR higher than the last test? Yes: bolus with 4 units insulin IV and increase rate by 2 units/hr. Note: If BG 181-240mg/dl and has not dropped after 3 consecutive increases in insulin, then bolus with 4 units and double the insulin rate. o > 240mg/dl: BGT check in 30 minutes Has BG dropped > 100mg/dl from last BG? Yes: same rate Is BG lower than the last test by < 100mg/dl OR higher than the last test? Yes: IV Bolus with regular insulin as per IV infusion Bolus dosage scale and double insulin drip rate. o > 300mg/dl: Continue to follow the appropriate interventions based on BGT and call the Consulting [employer]. o Maximum insulin infusion drip rate may not exceed 30 units/hr; Insulin drip may NOT be discontinued unless approved by [employer]. Discontinue all subcutaneous Insulin orders (if patient is on subcutaneous insulin). Post-op 1 ml ketorolac tromethamine 15 mg/ml cartridge (1 source) Nonsteroidal Anti-inflammatory Drug, Cyclooxygenase Inhibitor Start: 12-16-2019 End: 12-17-2019 ketorolac (TORADOL) injection 15 mg labetalol hydrochloride 5 mg/ml injectable solution (4 sources) beta-Adrenergic Bridgett Start: 02-20-2025 End: 02-21-2025 10 mg, IntraVENous, Every 2 hour PRN, high blood pressure, 1st line for SBP goals Start: 02-20-2025 End: 02-20-2025 10 mg, IntraVENous, Every 10 min PRN, high blood pressure, 1st line for SBP goals lisinopril 10 mg oral tablet (18 sources) Angiotensin Converting Enzyme Inhibitor Start: 10-18-2019 End: 01-19-2020 take 10 mg by mouth once daily Lisinopril Discontinued 10 MG PO DAILY October 18, 2019 12:00am January 19, 2020 9:02am Start: 10-17-2019 End: 10-18-2019 take 5 mg by mouth once daily Lisinopril Discontinued 5 MG PO DAILY October 17, 2019 12:00am October 18, 2019 1:07pm End: 12-20-2019 take 2 tablets by mouth once daily lisinopril (PRINIVIL;ZESTRIL) 10 MG tablet Take 20 mg by mouth daily 0 12/20/2019 Discontinued (Stop Taking at Discharge) metoprolol tartrate 50 mg oral tablet (20 sources) beta-Adrenergic Bridgett Start: 01-19-2020 End: 06-18-2021 take 75 mg by mouth twice daily Metoprolol Tartrate Discontinued 75 MG PO TWICE A DAY 270 May 14, 2020 11:23am June 18, 2021 9:35am Start: 12-20-2019 take 1.5 tablets by mouth twice daily metoprolol tartrate (LOPRESSOR) 50 MG tablet Take 1.5 tablets by mouth 2 times daily 60 tablet 3 12/20/2019 Active Start: 12-19-2019 metoprolol tar trate (LOPRESSOR) tablet 75 mg Start: 12-16-2019 metoprolol (LO PRESSOR) injection 2.5 mg Start: 12-16-2019 End: 12-16-2019 metoprolol tartrate (LOPRESS OR) tablet 25 mg Start: 10-17-2019 End: 01-19-2020 take 50 mg by mouth twice daily Metoprolol Tartrate Di scontinued 50 MG PO TWICE A DAY October 17, 2019 4:23pm January 19, 2020 9:02am Start: 09-28-2019 End: 10-17-2019 Metoprolol Tartrate Disconti nued PO September 28, 2019 12:00am October 17, 2019 4:26pm take 1 tablet by donell th twice daily metoprolol tartrate 75 mg tab Take 75 mg by mouth twice daily. 0 Active Comment on above: Take 75 mg by mouth twice daily. mupirocin 0.02 mg/mg topical ointment (8 sources) RNA Synthetase Inhibitor Antibacterial Start: 02-20-2025 End: 02-21-2025 Start: 12-15-2019 End: 12-18-2019 Nasal, 2 TIMES DAILY, First dose on Wed12/15/19 at 1315, For 4 days, Post-op Start: 12-12-2019 End: 12-20-2019 mupirocin (BACTROBAN NASAL) 2 % nasal ointment Apply liberal amount on a q-tip and place in each nostril the night before surgery and then again the morning of surgery 1 Tube 0 12/12/2019 12/20/2019 Discontinued (Stop Taking at Discharge) 1 ml naloxone hydrochloride 0.4 mg/ml injection (2 sources) Opioid Antagonist Start: 02-20-2025 End: 02-21-2025 0.4 mg, IntraVENous, Every 5 min PRN, opioid reversal, respiratory depression, Starting on Wed02/20/25 at 1532, +++ For RR 100 ml sodium nitroprusside 0.5 mg/ml injection (2 sources) Start: 12-15-2019 End: 12-17-2019 nitroprusside (NIPRIDE) 50 mg in NS 100mL infusion Start: 12-15-2019 End: 12-15-2019 nitroprusside (NIPRIDE) 50 m g in NS 100mL infusion Override Pull nitroPRUSSide (NIPRIDE) 50 mg in dextrose 5 % 250 mL infusion (1 source) Start: 12-15-2019 End: 12-15-2019 0.1 mcg/kg/min 77.1 kg (2.313 mL/hr, rounded to 2.3 mL/hr), Intravenous, at 2.3 mL/hr, CONTINUOUS PRN, Initiate if SBP greater 130 mmHg, Starting Wed12/15/19 at 1255 Initial rate: 0.1 mcg/kg/min Max rate: 2 mcg/kg/min Titrate by 0.25 mcg/kg/min no faster than 15 minutes to maintain goal SBP less than 130 mmHg but greater than 90 mmHg Infusion Titrations: If SBP falls below 90 mmHg, wean drip by 0.25 mcg/kg/min no faster than 15 minutes to achieve hemodynamic goals (SBP greater than 90 but less than 130). May titrate outside of defined titration parameters (increments and frequency) under direction of provider. If hemodynamic goal unattained at instructed max dose, notify provider. Post-op ondansetron 4 mg oral tablet (20 sources) Serotonin-3 Receptor Antagonist Start: 07-26-2023 End: 01-17-2024 take 1 tablet by mouth once daily as needed for nausea ondansetron (ZOFRAN) 4 mg tablet Indications: Nausea and vomiting, unspecified vomiting type Take 1 tablet by mouth once daily as needed for nausea/vomiting (for nausea.). 30 tablet 2 07/26/2023 01/17/2024 Discontinued Start: 04-21-2021 End: 01-17-2024 take 1 tablet by mouth every eight hours for nausea ondansetron (ZOFRAN) 4 mg tablet Indications: Nausea and vomiting, intractability of vomiting not specified, unspecified vomiting type take 1 tablet by mouth every 8 hours if needed for nausea 30 tablet 1 04/21/2021 01/17/2024 Discontinued (Course of therapy completed) Start: 12-15-2019 4 mg, Intraven ous, EVERY 8 HOURS PRN, Nausea, Starting 12/15/19 at 1255, Post-op Comment on above: take 1 tablet by donell th every 8 hours if needed for nausea Take 1 tablet by donell th once daily as needed for nausea/vomiting (for nausea.). ondansetron ODT (Zofran-ODT) disintegrating tablet 4 mg (2 sources) Start: 02-21-20 End: 02-22-20 take 1 tablet by mouth every eight hours as needed for nausea and vomiting ondansetron ODT (Zofran-ODT) disintegrating tablet 4 mg oxyCODONE hydrochloride 5 mg oral tablet (3 sources) Opioid Agonist Start: 02-22-20 End: 02-22-20 take 1 tablet by mouth every four hours as needed for pain and pain 2.5 mg, Oral, Every 4 hours PRN, moderate pain (4-6), severe pain (7-10), Starting on Wed02/21/25 at 0632 Start: 12-17-2019 oxyCODONE (REED ICODONE) immediate release tablet 5 mg pantoprazole 40 mg delayed release oral tablet (20 sources) Proton Pump Inhibitor Start: 06-12-2021 End: 01-17-2024 take 1 tablet by mouth twice daily pantoprazole DR (PROTONIX) 40 mg tablet take 1 tablet by mouth twice a day 180 tablet 2 10/25/2023 01/17/2024 Discontinued (Course of therapy completed) Start: 08-13-2020 End: 07-02-2021 take 40 mg by mouth once daily Pantoprazole Discontinu ed 40 MG PO DAILY August 13, 2020 1:42pm July 02, 2021 1:15pm Start: 05-31-2020 End: 08-13-2020 take 20 mg by mouth once daily Pantoprazole Discontinu ed 20 MG PO DAILY May 30, 2020 11:00pm August 13, 2020 1:43pm Start: 09-28-2019 End: 05-31-2020 take 40 mg by mouth once daily Pantoprazole Discontinu ed 40 MG PO DAILY May 14, 2020 11:22am May 31, 2020 1:05pm Comment on above: Take 1 tablet by donell th twice daily for 54 doses. Take 1 tablet by donell th twice daily. take 1 tablet by donell th twice a day polyethylene glycol 3350 12392 mg powder for oral solution (3 sources) Osmotic Laxative Start: 02-20-2025 End: 02-21-2025 take 17 g by mouth every twenty-four hours as needed for constipation Start: 12-15-2019 17 g, Oral, DA ALMA, First dose on Wed12/15/19 at 1315, Post-op regular insulin, human 100 unt/ml injectable solution (1 source) Insulin Start: 12-15-2019 End: 12-18-2019 take 2 [IU] intravenous route once as needed 4 Units, Intravenous, PRN, High Blood [place], Insulin Bolus per Post op Open Heart Insulin drip, Starting Wed12/15/19 at 1255 Post Open Heart Insulin Drip To be used as outlined in protocol for Blood Sugar Range between 181-240: If patient's blood sugar is 50-100 mg/dl lower from previous blood sugar then continue same rate. If blood sugar is lower than last blood sugar by greater than 100 then decrease rate by 25%; if blood sugar is lower than previous blood sugar by less than 50 mg/dl or higher than last blood sugar then initiate PRN bolus and bolus with 4 units IV and increase rate by 2 units/hr. Intervention to be used only when patient is on insulin drip for post op open heart surgery. When insulin drip discontinued, order no longer valid. 5 ml sodium chloride 9 mg/ml injection (14 sources) Start: 02-20-2025 End: 02-21-2025 take 75 mL intravenousl y every hour 75 mL/hr, IntraVENous, Continuous, Start ing on Wed02/20/25 at 1530 Start: 02-20-2025 End: 02-21-2025 take 30 mL intravenously every six hours 30 mL, IntraVENous, Every 6 hours, First dose on Wed02/20/25 at 1530 Start: 02-20-2025 End: 02-21-2025 Start: 12-16-2019 End: 12-16-2019 0.9 % sodium chloride bolus Start: 12-15-2019 10 mL, Intrave nous, EVERY 12 HOURS SCHEDULED (2 times per day), First dose on Wed12/15/19 at 2100, Post-op Start: 12-15-2019 take 10 mL intravenous route o nce 10 mL, Intravenous, PRN, Line Care, Starting Wed12/15/19 at 1255 After every IV line use Post-op Start: 12-15-2019 End: 12-17-2019 Intravenous, at 20 mL/hr, CONTINUOUS, Starting Wed12/15/19 at 1315 20 ml/hr to SP(introducer) and WT on [place] Iza Catheter; once [place] discontinued run at 20 ml/hr through SP(introducer) Post-op Start: 12-15-2019 End: 12-15-2019 250 mL (3.24 mL/kg), Intrave nous, at 1,500 mL/hr, Administer over 10 Minutes, PRN, 2nd fluid bolus challenge: PAD below goal (18) and Low CI (less than 2.0) and/or Low BP (less than 90 SBP and/or less than 60 MAP) and/or Low urine output (less than 30ml/hr) per hemodynamic goals, Starting Wed12/15/19 at 1255, For 1 dose If first fluid bolus challenge unsuccessful at reaching hemodynamic goals use second fluid bolus challenge if hgb greater than 7.5 and PAD below goal (18) and Low CI (less than 2.0) and/or Low BP (less than 90 SBP and/or less than 60 MAP) and/or Low urine output (less than 30ml/hr) per hemodynamic goals Notify surgeon for further orders if bolus does not help reach hemodynamic goals If hgb less than 7.5 notify surgeon for orders. Post-op Start: 12-15-2019 End: 12-17-2019 0.9 % sodium chloride infusi on sucralfate 1000 mg oral tablet (7 sources) Aluminum Complex Start: 07-02-2021 End: 09-04-2021 take 1 g by mouth four times daily Sucralfate Discontinued 1 GM PO .QID July 01, 2021 11:00pm September 04, 2021 4:39pm Problems Active Problems Problem Classification Problem Date Documented Da te Episodic/Chronic Acute cerebrovascular disease (12 sources) Intracranial hemorrhage; Translations: [Nontraumatic intracranial hemorrhage, unspecified] Onset: 5 02-20-2025 Chronic Biliary tract disease (4 sources) Leakage of bile; Translations: [Disease of biliary tract, unspecified] Chronic Complication of device; implant or graft (1 source) Pain; Translations: [Pain due to internal orthopedic prosthetic devices, implants and grafts, initial encounter] Onset: 2 12-16-2021 Episodic Conditions associated with dizziness or vertigo (1 source) Dizziness; Translations: [Dizziness] Episodic Coronary atherosclerosis and other heart disease (15 sources) Multi vessel coronary artery disease; Translations: [Coronary arteriosclerosis in [place] artery] Onset: 0 12-15-2019 Chronic Diabetes mellitus with complications (2 sources) Type 2 diabetes mellitus with diabetic chronic kidney disease; Translations: [Type 2 diabetes mellitus with other specified complication] Onset: 4 Chronic Diabetes mellitus without complication (20 sources) Diabetes mellitus without complication; Translations: [Type 2 diabetes mellitus without complications] Onset: 3 05-13-2023 Chronic Disorders of lipid metabolism (8 sources) Hyperlipidemia; Translations: [Hyperlipidemia, unspecified] Chronic E Codes: Fall (5 sources) Unspecified fall, initial encounter; Translations: [Fall] Onset: 4 02-20-2025 Episodic Essential hypertension (20 sources) Essential hypertension; Translations: [Essential (primary) hypertension] Onset: 3 Chronic Fracture of upper limb (9 sources) Closed fracture of upper end of humerus; Translations: [Unspecified fracture of upper end of right humerus, subsequent encounter for fracture with malunion] Onset: 2 11-28-2021 Episodic Mood disorders (1 source) Bipolar II disorder; Translations: [Bipolar II disorder] Onset: 5 Chronic Nausea and vomiting (7 sources) Nausea; Translations: [Nausea] Onset: 3 04-06-2023 Episodic Nonspecific chest pain (7 sources) Chest pain; Translations: [Chest pain, unspecified] Episodic Other connective tissue disease (7 sources) Paraparesis; Translations: [Other symptoms and signs involving the musculoskeletal system] Onset: 3 07-27-2023 Episodic Other gastrointestinal disorders (2 sources) Diarrhea; Translations: [Diarrhea, unspecified] 10-13-2023 Episodic Other injuries and conditions due to external causes (1 source) Encounter for examination and observation following other accident; Translations: [Encounter for examination and observation following other accident] Onset: 5 Episodic Other nervous system disorders (7 sources) Postoperative pain ; Translations: [Other acute postprocedural pain] Episodic Other nervous system disorders (2 sources) Abnormal gait due to impairment of balance; Translations: [Other abnormalities of gait and mobility] 10-26-2023 Episodic Other nervous system disorders (2 sources) Other abnormalities of gait and mobility; Translations: [Abnormality of gait due to impairment of balance] Onset: 3 Episodic Pancreatic disorders (not diabetes) (7 sources) Gallstone acute pancreatitis; Translations: [Biliary acute pancreatitis without necrosis or infection] Onset: 4 Episodic Residual codes; unclassified (20 sources) Obstructive sleep apnea syndrome; Translations: [Obstructive sleep apnea (adult) (pediatric)] Onset: 3 05-13-2023 Chronic Residual codes; unclassified (2 sources) Obstructive sleep apnea (adult) (pediatric); Translations: [CABRERA (obstructive sleep apnea)] Onset: 3 Chronic Residual codes; unclassified (7 sources) Past history of procedure; Translations: [Other specified postprocedural states] Episodic Residual codes; unclassified (1 source) Other specified postprocedural states; Translations: [Other postprocedural status] Episodic Spondylosis; intervertebral disc disorders; other back problems (1 source) Lumbosacral radiculopathy; Translations: [Radiculopathy, lumbosacral region] 08-12-2023 Episodic Transient cerebral ischemia (8 sources) Transient cerebral ischemia; Translations: [Transient cerebral ischemic attack, unspecified] Onset: 10-26-2023 Chronic Unclassified (1 source) Preprocedural examination done; Translations: [Preoperative examination] Past or Other Problems Problem Classification Problem Date Documented Da te Episodic/Chronic Complications of surgical procedures or medical care (10 sources) Leakage of bile; Translations: [Other postprocedural complications and disorders of digestive system] Onset: 06-10-2023 Episodic Coronary atherosclerosis and other heart disease (3 sources) History of coronary artery bypass grafting; Translations: [Presence of aortocoronary bypass graft] Onset: 12-15-2019 12-16-2019 Episodic Diabetes mellitus without complication (4 sources) Hyperglycemia; Translations: [Hyperglycemia, unspecified] Onset: 12-15-2019 12-15-2019 Episodic Malaise and fatigue (1 source) Other fatigue; Translations: [Other fatigue] Onset: 08-25-2024 Episodic Other acquired deformities (1 source) Acquired deformity of nose; Translations: [Nasal deformity] Onset: 09-16-2023 Episodic Other connective tissue disease (20 sources) Other symptoms and signs involving the musculoskeletal system; Translations: [Other musculoskeletal symptoms referable to limbs] Onset: 06-10-2023 10-11-2023 Episodic Other diseases of kidney and ureters (1 source) Disorder of kidney and ureter, unspecified; Translations: [Renal insufficiency] Onset: 09-16-2023 Episodic Other disorders of stomach and duodenum (20 sources) Gastroparesis syndrome; Translations: [Gastroparesis] Onset: 06-11-2021 Resolved: 06-12-2021 04-06-2023 Episodic Other disorders of stomach and duodenum (2 sources) Gastroparesis; Translations: [Gastroparesis] Onset: 05-13-2023 Episodic Other gastrointestinal disorders (20 sources) Heartburn; Translations: [Heartburn] Onset: 05-13-2023 04-06-2023 Episodic Other gastrointestinal disorders (2 sources) Diarrhea, unspecified; Translations: [Diarrhea, unspecified type] Onset: 06-10-2023 Episodic Other gastrointestinal disorders (1 source) Heartburn; Translations: [Heartburn] Onset: 05-13-2023 Episodic Other injuries and conditions due to external causes (1 source) Unspecified injury of head, initial encounter; Translations: [Closed head injury, initial encounter] Onset: 09-16-2023 Episodic Other injuries and conditions due to external causes (1 source) Unspecified multiple injuries, initial encounter; Translations: [Multiple lacerations] Onset: 09-16-2023 Episodic Other nervous system disorders (20 sources) Abnormal gait; Translations: [Unspecified abnormalities of gait and mobility] Onset: 08-12-2023 08-12-2023 Episodic Other nervous system disorders (20 sources) Impairment of balance; Translations: [Other abnormalities of gait and mobility] Onset: 08-12-2023 08-12-2023 Episodic Other nervous system disorders (1 source) Unspecified abnormalities of gait and mobility; Translations: [Abnormality of gait] Onset: 08-12-2023 Episodic Other screening for suspected conditions (not mental disorders or infectious disease) (1 source) Other specified abnormal findings of blood chemistry; Translations: [Other specified abnormal findings of blood chemistry] Onset: 10-01-2024 Episodic Other skin disorders (1 source) Localized swelling, mass and lump, head; Translations: [Facial swelling] Onset: 09-16-2023 Episodic Residual codes; unclassified (1 source) Insomnia, unspecified; Translations: [Insomnia, unspecified] Onset: 09-26-2024 Episodic Skull and face fractures (1 source) Fracture of nasal bones, initial encounter for open fracture; Translations: [Open fracture of nasal bone, initial encounter] Onset: 09-16-2023 Episodic Superficial injury; contusion (1 source) Contusion of other part of head, initial encounter; Translations: [Contusion of face, initial encounter] Onset: 09-16-2023 Episodic Unclassified (2 sources) Problem Results Test Name Value Interpretation Reference Range Facility [id number] 02-21-2025 [id number] Care Managment Initi al Assessment Date: 02/21/2025 Patient Name: Douglas Callaway : 1955 Patient Information Source of Information: Patient Cognition/Language: WFL - Within Functional Limits Permission given to speak with patient screening representative/caregiver as indicated: Yes Confirmation of Payer with patient/family: Yes Payer Name: Medicare : No Confirmation of Primary Care Physician: Confirmed PCP Name: Iván Case MD Seen in last 2 years?: Yes Primary Caregiver: Self If assistance needed, confirmed caregiver ready, willing and able to care for patient at discharge: Yes Confirmed with: Douglas Living Arrangements Current Residence: House Number of Floors 2 Number of Entry Steps: 2 Bed/Bath Levels: Both second floor Facility: Facility Name: Plan to Return: Lives with: Spouse/significant other Support Systems: Spouse/significant other, Children Activities of Daily Living Ambulation: Assistance (cane) Bathing/Dressing: Independent Elimination/Continence/Toile ting: Independent Feeding: Independent Who Assists with Activities of Daily Living: Instrumental Activities of Daily Living Prescription Coverage: Yes Pharmacy Used: [facility] Medication Management: Independent Transportation/Shopping: Independent Transportation Mode: Car (pt still drives) Needs Assistance with Transportation at Discharge: No Meal Preparation: Independent Laundry/Cleaning: Independent Finances/Bill Paying: Independent Communication: Independent Types of Care Services/Equipment Utilized Care Services: Dialysis Type: Durable Medical Equipment: Patient's Goal/Discharge Plan Patient expects to be discharged to: home Discharge Planning Actions: No needs identified Patient's Choice Rights and [employer] and Collaborative Relationships Disclosed as Indicated for Post-Acute Care: Interdisciplinary Team Engagement: PT/OT, Geriatric Assessment Social Work Referral for: Additional Information: Pt admitted s/p fall on ASA, small right posterior temporal IPH vs SAH. Introduced myself and role. Pt lives with , whom can provide assistance and transportation when pt is discharged. Will follow. Normal [facility] BASIC METABOLIC PANELon 06- Anion gap [Moles/Vol] 7 mmol/L Normal 3-13 [facility] Comment on above: Performed By: #### L [id number] ####Cone Cleaner: JOHANNA PAYAN ([id number])[facility])[address] [place] [address] Calcium [Mass/Vol] 8.4 mg/dL Low 8.8-10.0 [facility] Comment on above: Performed By: #### L [id number] ####Cone Cleaner: JOHANNA PAYAN ([id number])[facility])[address] [place] [address] Chloride [Moles/Vol] 107 mmol/L Normal 98-107 [facility] Comment on above: Performed By: #### L [id number] ####Cone Cleaner: JOHANNA PAYAN ([id number])[facility] ([facility])[address] [place] [address] CO2 [Moles/Vol] 24 mmol/L Normal 23-31 [facility] Comment on above: Performed By: #### L [id number] ####Cone Cleaner: JOHANNA PAYAN ([id number])[facility])[address] [place] [address] Creatinine [Mass/Vol] 1.68 mg/dL High 0.72-1.25 [facility] Comment on above: Performed By: #### L [id number] ####Cone Cleaner: JOHANNA PAYAN ([id number])[facility])[address] [place] [address] [place] GLOMERULAR FILTRATION RATE ML/MIN/1.73 SQ M.PREDICTED 43.4 mL/min/1.73m*2 Low >60.0 [facility] Comment on above: Result Comment: Calc ulation based on the Chronic Kidney Disease Epidemiology Collaboration (CKD-EPI) equation refit without adjustment for race Performed By: #### L [id number] ####Cone Cleaner: JOHANNA [id number])[facility] ([facility])[address] [place] [address] Glucose [Mass/Vol] 95 mg/dL Normal 82-115 [facility] Comment on above: Performed By: #### L [id number] ####Cone Cleaner: JOHANNA PAYAN ([id number])[facility] ([facility])[address] [place] [address] Potassium [Moles/Vol] 4.0 mmol/L Normal 3.5-5.1 [facility] Comment on above: Result Comment: Plas ma potassium values may be up to 0.5 mmol/L lower than serum values. Performed By: #### L [id number] ####Cone Cleaner: JOHANNA PAYAN ([id number])[facility] ([facility])[address] [place] [address] Sodium [Moles/Vol] 138 mmol/L Normal 136-145 [facility] Comment on above: Performed By: #### L [id number] ####Cone Cleaner: JOHANNA PAYAN ([id number])[facility] ([facility])[address] [place] [address] Urea nitrogen [Mass/Vol] 25 mg/dL High 9-23 [facility] Comment on above: Performed By: #### L [id number] ####Cone Cleaner: JOHANNA PAYAN ([id number])[facility])[address] [place] [address] Basic metabolic 1998 panelon 02-21-2025 Anion gap [Moles/Vol] 7 mmol/L 3 - 13 mmol/L [facility] Calcium [Mass/Vol] 8.4 mg/dL Low 8.8 - 10. 0 mg/dL [facility] Chloride [Moles/Vol] 107 mmol/L 98 - 107 mmol/L [facility] CO2 [Moles/Vol] 24 mmol/L 23 - 31 mmol/L [facility] Creatinine [Mass/Vol] 1.68 mg/dL High 0.72 - 1.25 mg/dL [facility] GFR/1.73 sq M.predicted (S/P/Bld) [Vol rate/Area] 43.4 mL/min Low - PINF [facility] Comment on above: Calculation based on the Chronic Kidney Disease Epidemiology Collaboration (CKD-EPI) equation refit without adjustment for race Glucose [Mass/Vol] 95 mg/dL 82 - 115 mg/dL [facility] Interpretation and review of laboratory results Abnormal [facility] Potassium [Moles/Vol] 4 mmol/L 3.5 - 5.1 mmol/L [facility] Comment on above: Plasma potassium barbara ues may be up to 0.5 mmol/L lower than serum values. Sodium [Moles/Vol] 138 mmol/L 136 - 145 mmol/L [facility] Urea nitrogen [Mass/Vol] 25 mg/dL High 9 - 23 mg/dL [facility] CBC W Auto Differential pane l (Bld)on 02-21-2025 Basophils (Bld) [#/Vol] 0 10*3/uL 0.0 - 0.2 10*3/uL [facility] [email or web address] Basophils/100 WBC (Bld) 0.3 % 0.0 - 2.0 % [facility] [email or web address] Eosinophils (Bld) [#/Vol] 0.1 10*3/uL 0.0 - 0.5 10*3/uL [facility] [email or web address] Eosinophils/100 WBC (Bld) 1.5 % 0.0 - 6.0 % [facility] [email or web address] Erythrocyte distribution width (RBC) [Ratio] 13.1 % 11.5 - 15.0 % [facility] [email or web address] Hematocrit (Bld) [Volume fraction] 37 % Low 40.0 - 52.0 % [facility] [email or web address] Hemoglobin (Bld) [Mass/Vol] 12.1 g/dL Low 13.0 - 18.0 g/dL [facility] [email or web address] Immature granulocytes (Bld) [#/Vol] 0 10*3/uL NINF - 0.1 10*3/uL [facility] [email or web address] Immature granulocytes/100 WBC (Bld) 0.6 % 0.0 - 2.0 % [facility] Interpretation and review of laboratory results Abnormal [facility] [email or web address] Lymphocytes (Bld) [#/Vol] 1.5 10*3/uL 1.0 - 4.3 10*3/uL [facility] [email or web address] Lymphocytes/100 WBC (Bld) 21.3 % 15.0 - 45.0 % [facility] [email or web address] MCH (RBC) [Entitic mass] 32.4 pg 26.0 - 34.0 pg [facility] [email or web address] MCHC (RBC) [Mass/Vol] 32.7 % 30.5 - 36.0 % [facility] [email or web address] MCV (RBC) [Entitic vol] 99.2 fL High 77.0 - 99.0 fL [facility] Monocytes (Bld) [#/Vol] 0.7 10*3/uL 0.0 - 0.9 10*3/uL [facility] Monocytes/100 WBC (Bld) 10.6 % 5.0 - 13.0 % [facility] Neutrophils (Bld) [#/Vol] 4.5 10*3/uL 1.8 - 7.5 10*3/uL [facility] Neutrophils/100 WBC (Bld) 65.7 % 38.0 - 82.0 % [facility] Nucleated RBC/100 WBC (Bld) [Ratio] 0 % [facility] Platelet mean volume (Bld) [Entitic vol] 9.9 fL 9.0 - 12.7 fL [facility] Platelets (Bld) [#/Vol] 184 10*3/uL 140 - 440 10*3/uL [facility] RBC (Bld) [#/Vol] 3.73 10*6/uL Low 4.40 - 5.9 0 10*6/uL [facility] WBC (Bld) [#/Vol] 6.9 10*3/uL 3.6 - 10.7 10*3/uL [facility] CBC WITH AUTO DIFFERENTIALon 02-21-2025 Basophils (Bld) [#/Vol] 0.0 10*3/uL Normal 0.0-0.2 [facility] Comment on above: Performed By: #### L [id number] #### Cone Cleaner: JOHANNA PAYAN ([id number]) [facility] ([facility]) [address] [place] [address] Basophils/100 WBC (Bld) 0.3 % Normal 0.0-2.0 [facility] Comment on above: Performed By: #### L [id number] #### Cone Cleaner: JOHANNA PAYAN ([id number]) [facility] ([facility]) [address] [place] [address] Eosinophils (Bld) [#/Vol] 0.1 10*3/uL Normal 0.0-0.5 [facility] Comment on above: Performed By: #### L [id number] #### Cone Cleaner: JOHANNA PAYAN ([id number]) [facility]) [address] [place] [address] Eosinophils/100 WBC (Bld) 1.5 % Normal 0.0-6.0 [facility] Comment on above: Performed By: #### L [id number] #### Cone Cleaner: JOHANNA PAYAN ([id number]) [facility]) [address] [place] [address] Erythrocyte distribution width (RBC) [Ratio] 13.1 % Normal 11.5-15.0 [facility] Comment on above: Performed By: #### L [id number] #### Cone Cleaner: JOHANNA PAYAN ([id number]) [address] Hematocrit (Bld) [Volume fraction] 37.0 % Low 40.0-52.0 [facility] Comment on above: Performed By: #### L [id number] #### Cone Cleaner: JOHANNA PAYAN ([id number]) [facility]) [address] [place] [address] Hemoglobin (Bld) [Mass/Vol] 12.1 g/dL Low 13.0-18.0 [facility] Comment on above: Performed By: #### L [id number] #### Cone Cleaner: JOHANNA PAYAN ([id number]) [facility]) [address] [place] [address] IMMATURE GRANS % 0.6 % Normal 0.0-2.0 [facility] Comment on above: Performed By: #### L [id number] #### Cone Cleaner: JOHANNA PAYAN ([id number]) [address] IMMATURE GRANS ABSOLUTE 0.0 10*3/uL Normal <0.1 [facility] Comment on above: Performed By: #### L [id number] #### Cone Cleaner: JOHANNA [id number]) [facility]) [address] [place] [address] Lymphocytes (Bld) [#/Vol] 1.5 10*3/uL Normal 1.0-4.3 [facility] Comment on above: Performed By: #### L [id number] #### Cone Cleaner: JOHANNA PAYAN ([id number]) [facility]) [address] [place] [address] Lymphocytes/100 WBC (Bld) 21.3 % Normal 15.0-45.0 [facility] Comment on above: Performed By: #### L [id number] #### Cone Cleaner: JOHANNA PAYAN ([id number]) [facility]) [address] [place] [address] MCH (RBC) [Entitic mass] 32.4 pg Normal 26.0-34.0 [facility] Comment on above: Performed By: #### L [id number] #### Cone Cleaner: JOHANNA PAYAN ([id number]) [facility]) [address] [place] [address] MCHC 32.7 % Normal 30.5-36.0 [facility] Comment on above: Performed By: #### L [id number] #### Cone Cleaner: JOHANNA PAYAN ([id number]) [facility]) [address] [place] [address] MCV (RBC) [Entitic vol] 99.2 fL High 77.0-99.0 [facility] Comment on above: Performed By: #### L [id number] #### Cone Cleaner: JOHANNA PAYAN ([id number]) [facility]) [address] [place] [address] Monocytes (Bld) [#/Vol] 0.7 10*3/uL Normal 0.0-0.9 [facility] Comment on above: Performed By: #### L [id number] #### Cone Cleaner: JOHANNA PAYAN ([id number]) [facility]) [address] [place] [address] Monocytes/100 WBC (Bld) 10.6 % Normal 5.0-13.0 [facility] Comment on above: Performed By: #### L [id number] #### Cone Cleaner: JOHANNA PAAYN ([id number]) [facility] ([facility]) [address] [place] [address] NEUTROPHILS ABSOLUTE 4.5 10*3/uL Normal 1.8-7.5 [facility] Comment on above: Performed By: #### L [id number] #### Cone Cleaner: JOHANNA PAYAN ([id number]) [facility] ([facility]) [address] [place] [address] Neutrophils/100 WBC (Bld) 65.7 % Normal 38.0-82.0 [facility] Comment on above: Performed By: #### L [id number] #### Cone Cleaner: JOHANNA PAYAN ([id number]) [facility] ([facility]) [address] [place] [address] NRBC 0.0 /100 WBCs Normal 0.0-2.0 [facility] Comment on above: Performed By: #### L [id number] #### Cone Cleaner: JOHANNA PAYAN ([id number]) [facility] ([facility]) [address] [place] [address] Platelet mean volume (Bld) [Entitic vol] 9.9 fL Normal 9.0-12.7 [facility] Comment on above: Performed By: #### L [id number] #### Cone Cleaner: JOHANNA PAYAN ([id number]) [facility] ([facility]) [address] [place] [address] Platelets (Bld) [#/Vol] 184 10*3/uL Normal 140-440 [facility] Comment on above: Performed By: #### L [id number] #### Cone Cleaner: JOHANNA PAYAN ([id number]) [facility] ([facility]) [address] [place] [address] RBC (Bld) [#/Vol] 3.73 10*6/uL Low 4.40-5.90 [facility] Comment on above: Performed By: #### L [id number] #### Cone Cleaner: JOHANNA PAYAN ([id number]) [facility] ([facility]) [address] [place] [address] WBC (Bld) [#/Vol] 6.9 10*3/uL Normal 3.6-10.7 [facility] Comment on above: Performed By: #### L [id number] #### Cone Cleaner: JOHANNA JHAKAYLYN ([id number]) [facility] ([facility]) [address] [place] [address] CT CERVICAL SPINE WO IV CONT RASTon 02-21-2025 CT CERVICAL SPINE WO IV CONTRAST Patient Name: DOUGLAS CALLAWAY : 1955 Exam Date/Time: 02/20/2025 17:07 Procedure: CT CERVICAL SPINE WO IV CONTRAST Ordering Provider: RAMIREZ NATHAN Reason For Exam: [facility] fall from standing CT CERVICAL SPINE WITHOUT CONTRAST CLINICAL INDICATION: Neck pain after fall Serial axial CT images of the cervical spine were obtained without intravenous contrast. Coronal and sagittal reformatted images were also made available for interpretation. Dose reduction was employed with automated exposure control. COMPARISON: None FINDINGS: No fracture or dislocation of the cervical spine is identified. There is no prevertebral soft tissue swelling. Mild to moderate diffuse loss of intervertebral disc space height and degenerative endplate spurring is noted throughout the cervical spine. There are also moderate facet hypertrophic changes diffusely. No moderate or severe bony central canal stenosis is present. IMPRESSION: No fracture or dislocation of the cervical spine. Mild to moderate diffuse degenerative changes of the cervical spine. Report Dictated on Electronically Signed By: Dale Islas MD Electronically Signed Date/Time: 02/21/2025 4:59 AM EDT Normal [facility] CT Cervical spine WO contras ton 02-21-2025 No fracture or dislocation of the cervical spine. Mild to moderate diffuse degenerative changes of the cervical spine. Report Dictated on Electronically Signed By: Dale Islas MD Electronically Signed Date/Time: 02/21/2025 4:59 AM EDT [facility] Patient Name: DOUGLAS SIMON : 1955 Exam Date/Time: 02/20/2025 17:07 Procedure: CT CERVICAL SPINE WO IV CONTRAST Ordering Provider: RAMIREZ NATHAN Reason For Exam: sp [facility] fall from standing CT CERVICAL SPINE WITHOUT CONTRAST CLINICAL INDICATION: Neck pain after fall Serial axial CT images of the cervical spine were obtained without intravenous contrast. Coronal and sagittal reformatted images were also made available for interpretation. Dose reduction was employed with automated exposure control. COMPARISON: None FINDINGS: No fracture or dislocation of the cervical spine is identified. There is no prevertebral soft tissue swelling. Mild to moderate diffuse loss of intervertebral disc space height and degenerative endplate spurring is noted throughout the cervical spine. There are also moderate facet hypertrophic changes diffusely. No moderate or severe bony central canal stenosis is present. [facility] Dale Islas MD - 02/21/2025 Patient Name: DOUGLAS CALLAWAY : 1955 Exam Date/Time: 02/20/2025 17:07 Procedure: CT CERVICAL SPINE WO IV CONTRAST Ordering Provider: RAMIREZ NATHAN Reason For Exam: [facility] fall from standing CT CERVICAL SPINE WITHOUT CONTRAST CLINICAL INDICATION: Neck pain after fall Serial axial CT images of the cervical spine were obtained without intravenous contrast. Coronal and sagittal reformatted images were also made available for interpretation. Dose reduction was employed with automated exposure control. COMPARISON: None FINDINGS: No fracture or dislocation of the cervical spine is identified. There is no prevertebral soft tissue swelling. Mild to moderate diffuse loss of intervertebral disc space height and degenerative endplate spurring is noted throughout the cervical spine. There are also moderate facet hypertrophic changes diffusely. No moderate or severe bony central canal stenosis is present. IMPRESSION: No fracture or dislocation of the cervical spine. Mild to moderate diffuse degenerative changes of the cervical spine. Report Dictated on Electronically Signed By: Dale Islas MD Electronically Signed Date/Time: 02/21/2025 4:59 AM EDT [facility] [facility] [email or web address] [address] Cervical spine WO contrbettina tOrdered By: Dale Islas on 02-21-2025 [facility] [email or web address] Consulton 02-21-2025 Consult [facility] Geriatric Medicine Inpatient Consult Service Admission Date: 02/20/2025 Admission Status: INPATIENT Chief Complaint: fall Reason for Appointment Geriatrics consulted for Trauma due to fall Assessment & Plan Principal Problem: Intracranial hemorrhage (HCC) Active Problems: Fall Intraventricular hemorrhage (HCC) Fall -Multiple risk factors including lumbar radiculopathy, diabetic neuropathy, previous stroke (lacunar infarct), possible medication effect - reviewed with patient how falls in the elderly are often the accumulation of multiple risk factors -History of difficulty with balance/gait instability for which patient has had significant negative work up in the past. -Continue PT/OT as able while inpatient -Vitamin D ordered but will likely be dc'd before it can be completed; recommend checking as outpatient if not done recently -Check orthostatic vital signs as able -Medications with associated fall risk include: Primidone - benefits likely outweigh risks at this time Doxepin - uses PRN, encouraged patient to be extra cautious after use -Discussed importance of changing positions slowly, especially at night -Encouraged consistent use of cane and consideration for getting shower chair -Recommend home vs outpatient PT with focus on vestibular therapy to help with balance as well as strength and coordination. At risk for delirium --Risk factors: head trauma and advanced age --Encourage PO intake, time up in chair, family visits, supervised ambulation, and sleep hygiene --If agitated, assess for and consider treating for pain --Possible medication contributions: n/a --Agree with expediting discharge out of hospital Acute pain due to trauma --Recommend scheduled acetaminophen 1g TID with PRN oxycodone (2.5mg) PRN for breakthrough -Optimize nonpharmacologic pain treatment modalities. Declining functional status --Related to deconditioning, lumbar radiculopathy, neuropathy --Continue PT/OT as able while inpatient --Anticipate d/c to home with home care level of PT/OT Subjective: HPI 69 y.o. year-old male presented from outside hospital for fall while leaving sleep study (reportedly lost his footing), initially had concern for intracranial hemorrhage but no bleeding seen in repeat imaging today. Conversation with patient: feeling OK. Was up walking with PT this AM, feels good enough to go home # of falls in the past 3 months: 2-3 # of falls in the past year: 3-5 History of falls: has been falling frequently for several years, attributes to difficulty with R leg. Has had work up in the past. Feels like it doesn't support him at times and gives way. Feels balance is worse when he closes his eyes. Living situation: lives at home with and son Assistive device: cane Dizziness: denies any significant issues Pain: denies any significant issues at baseline Incontinence/urgency (bowel, bladder, nocturia): denies any significant issues. Rare urinary urgency if he's been busy. Sleep (including use of medications/OTC for sleep): long-standing difficulty with sleep. Has CABRERA. Mood: well controlled with home meds Memory: no concerns Numbness: denies any significant issues Vision: denies any significant issues Hearing: denies any significant issues Weight/appetite: lost 10# about a year ago, has maintained Exercise/recent therapy: has done PT in the past Meds: takes primidone in the AM and PRN doxepin at night, has been effective for addressing tremors in L hand and decreased muscle spasms Advance Care Planning Healthcare Power of Air Export Operations Agent: Yes, Financial Power of Air Export Operations Agent: Yes, Living Will:Yes Code Status: Full Code Allergies[1] Current Medications[2] Medical History[3] Surgical History[4] Social History Tobacco Use Smoking status: Former Current packs/day: 1.00 Types: Cigarettes Smokeless tobacco: Never Tobacco comments: Quit smokin ppd times 5 yrs, quit 1976 Substance Use Topics Alcohol use: Yes Social History Social History Narrative Not on file Family History Family History[5] Family Status Relation Name Status Father Alive Mother No partnership data on file Review of Systems Constitutional: Negative for appetite change and unexpected weight change. HENT: Negative for hearing loss. Eyes: Negative for visual disturbance. Respiratory: Positive for shortness of breath (at times with exertion). Cardiovascular: Negative for chest pain and palpitations. Gastrointestinal: Negative for constipation and diarrhea. Genitourinary: Negative for difficulty urinating. Musculoskeletal: Negative for arthralgias and myalgias. Neurological: Positive for tremors (well controlled with meds) and weakness (R leg). Negative for dizziness and light-headedness. Psychiatric/Behavioral: Positive for sleep disturbance (long-standing difficulty with sleep). Negative for c (more content not included)... Normal [facility] Consult -------- Attestation signed by Micky Montelongo MD at 02/21/2025 1:59 PM I have discussed the patient with the advanced practice provider. I have reviewed and verified the information contained within their note. I agree with their assessment and plan. I have also personally seen and examined the patient. This is a 69-year-old male who fell yesterday. He denies loss of consciousness. He has noted to be on 81 mg of aspirin. He was transferred after initial CT demonstrated intracranial blood. He currently has no significant complaints other than gait instability and dizziness. He does not have any focal objective neurological deficits on exam. Initial CT was suspicious for possible small traumatic subarachnoid hemorrhage. Follow-up CT demonstrated resolution of the blood. There are no neurosurgical indications. We will sign off. He can be discharged from our standpoint. No need for follow-up imaging or follow-up appointment unless he encounters difficulty with recovery. It is okay for him to continue his aspirin. I spent a total of 55 minutes on this visit including direct interaction with the patient, discussion with staff and clinicians, review of data and imaging and preparation of this note NEUROSURGERY and SPINE CONSULT NOTE Patient Name: Douglas Callaway Patient : 1955 PCP: Iván Case MD History of Present Ilness: 69 y.o. presents with s/p fall yesterday. Patient states he frequently gets off balance. He was walking in the parking lot with a cane and fell. He recalls this event and denies LOC. He takes baby aspirin at home. He was evaluated at [facility] and there was concern for intracranial blood. He was transferred here. He had a repeat scan yesterday. Patient states he has had extensive neurological work up for his gait instability and dizziness with no significant findings. Chief complaint: s/p fall Past Medical History: Medical History[1] Past Surgical History: Surgical History[2] Home Medications: Prior to Admission medications Not on File Review of Systems Musculoskeletal: Positive for gait problem. Neurological: Positive for dizziness. All other systems reviewed and are negative. Physical Examination: Vitals: 02/21/25 0748 BP: 147/85 Pulse: 97 Resp: 15 Temp: 36.6 ?C (97.8 ?F) SpO2: 92% Physical Exam Awake and alert Converses appropriately, speech nl Pupils equal and reactive bilaterally Moves all extremities strongly and follows commands No focal neurological deficits noted Some ecchymosis on left side of face Results Labs: Last 24hrs Recent Results (from the past 24 hours) CBC Collection Time: 02/20/25 3:50 PM Result Value Ref Range Auto WBC 8.8 3.6 - 10.7 10*3/uL RBC 3.78 (L) 4.40 - 5.90 10*6/uL Hemoglobin 12.3 (L) 13.0 - 18.0 g/dL Hematocrit 36.5 (L) 40.0 - 52.0 % MCV 96.6 77.0 - 99.0 fL MCH 32.5 26.0 - 34.0 pg MCHC 33.7 30.5 - 36.0 % RDW 13.1 11.5 - 15.0 % Platelets 191 140 - 440 10*3/uL MPV 9.9 9.0 - 12.7 fL Basic metabolic panel Collection Time: 02/20/25 3:50 PM Result Value Ref Range SODIUM 137 136 - 145 mmol/L POTASSIUM 4.6 3.5 - 5.1 mmol/L CHLORIDE 108 (H) 98 - 107 mmol/L CARBON DIOXIDE 23 23 - 31 mmol/L UREA NITROGEN 26 (H) 9 - 23 mg/dL CREATININE 1.47 (H) 0.72 - 1.25 mg/dL GLUCOSE 119 (H) 82 - 115 mg/dL CALCIUM 8.8 8.8 - 10.0 mg/dL ANION GAP 6 3 - 13 mmol/L eGFR 51.0 (L) >60.0 mL/min/1.73m*2 POCT glucose meter Collection Time: 02/20/25 5:45 PM Result Value Ref Range Glucose 115 (H) 70 - 100 mg/dL POCT glucose meter Collection Time: 02/20/25 8:31 PM Result Value Ref Range Glucose 116 (H) 70 - 100 mg/dL CBC auto differential Collection Time: 02/21/25 3:18 AM Result Value Ref Range Auto WBC 6.9 3.6 - 10.7 10*3/uL RBC 3.73 (L) 4.40 - 5.90 10*6/uL Hemoglobin 12.1 (L) 13.0 - 18.0 g/dL Hematocrit 37.0 (L) 40.0 - 52.0 % MCV 99.2 (H) 77.0 - 99.0 fL MCH 32.4 26.0 - 34.0 pg MCHC 32.7 30.5 - 36.0 % RDW 13.1 11.5 - 15.0 % Platelets 184 140 - 440 10*3/uL MPV 9.9 9.0 - 12.7 fL nRBC 0.0 0.0 - 2.0 /100 WBCs Neutrophils Relative 65.7 38.0 - 82.0 % Lymphocytes Relative 21.3 15.0 - 45.0 % Monocytes Relative 10.6 5.0 - 13.0 % Eosinophils Relative 1.5 0.0 - 6.0 % Basophils Relative 0.3 0.0 - 2.0 % Immature Grans % 0.6 0.0 - 2.0 % Neutrophils Absolute 4.5 1.8 - 7.5 10*3/uL Lymphocytes Absolute 1.5 1.0 - 4.3 10*3/uL Monocytes Absolute 0.7 0.0 - 0.9 10*3/uL Eosinophils Absolute 0.1 0.0 - 0.5 10*3/uL Basophils Absolute 0.0 0.0 - 0.2 10*3/uL Immature Grans Absolute 0.0 <0.1 10*3/uL Basic metabolic panel Collection Time: 02/21/25 3:18 AM Result Value Ref Range SODIUM 138 136 - 145 mmol/L POTASSIUM 4.0 3.5 - 5.1 mmol/L CHLORIDE 107 98 - 107 mmol/L CARBON DIOXIDE 24 23 - 31 mmol/L UREA (more content not included)... Normal [facility] Laboratory - Chemistry and C hemistry - challengeon 02-21-2025 Glucose [Mass/Vol] 94 mg/dL 70 - 100 mg/dL [facility] No Panel Informationon 02-21 Interpretation and review of laboratory results Normal [facility] Performed by: [facility], [address] [place] [address], [facility] [address] CLIA ID: [id number] [facility] Progress Noteon 02-21-2025 Progress Note Physician Response Please review the following and provide your response below. Please clarify which of the following accurately describes the patient's condition: Due to trauma This documentation will become part of the patient's medical record. Normal [facility] Progress Note -------- Attestation signed by Moises Holguin MD at 03/02/2025 12:17 PM ~~~~~~~~~~~~~~~~~~~~~~~~~~~~ ~~~~~~~~~~~~~~~~~~~~~~~~~~~~ ~~ Attending physician addendum: I independently saw and evaluated the patient. I personally obtained the gordillo and critical portion of the history and physical exam. I reviewed and agree with the documentation below. I personally reviewed patient's labs and imaging studies. My findings agree with the below note except for any details corrected. I have examined the patient at the date below. Problem List[1] I have personally performed a face to face diagnostic evaluation on this patient. I have reviewed and agree with the care plan as documented above by my EDUCATIONAL AUDIOLOGIST/LASTC. I personally discussed the review of systems and interviewed the patient along with performing a physical examination. In addition, I discussed the patient's condition and treatment options with him/her when possible. All of the patient's questions were answered and family updated when appropriate and possible. I I performed a physical exam and ROS on the same date of service as above. My findings agree with the above note except for any details corrected below. A complete review of systems was obtained and is negative except as stated in HPI. I have evaluated the patient on 02/21/[address] shows ICH resolution. Reports minimal headache, remains neuro intact. PT/OT. Discharge home plans Chief complain: headache Problem list: Temporal ICH Fall Essential HTN HLD Depression GERD CKD stage III Osteoporosis Procedures: none Management / Plan : Neuro / Spine - Pain control: Scheduled tylenol, prn oxy - IPH: neurosurgery consulted - rCT with no abnormality - No Keppra, No ddavp - q4 neuro checks - Elevate HOB 30 degrees - Consult to geriatrics - Consult to palliative - Hx bipolar: resume home lamictal - Hx essential tremors: resume home primidone, doxepin HEENT - Facial abrasions: local wound care Cardiovascular - Hx CAD S/P CABG X 3 on ASA - Hemodynamically stable - Labetalol/hydralazine prn - Telemetry - SBP <160 - Hx HTN: resume home losartan - Hx HLD: resume home Crestor Pulmonary - Standard O2 protocol - IS - Duonebs PRN FEN/GI - Regular diet - Zofran PRN - Bowel regimen - Daily BMP, CBC, Mg, Phos - Monitor I/Os - CrCl: 39.6 - Hx CKD: 1.68<1.47, monitor Endocrine - No acute issues - Hx DM: POCT glucose, low dose SSI Heme - Hgb Stable - No transfusions indicated ID - No acute issues - Mupirocin Lines/Devices: - PIV Prophylaxis: DVT: SCDs, Heparin 5000mg tid Has DVT PPX been started? Yes If no, why? GI: not indicated Pressure Ulcer: Continue to monitor, q2 turns Musculoskeletal: - PT/OT WB Status: RUE:AT LUE: AT RLE: AT LLE: AT Is the patient in restraints?: no Medications Reconciled- Yes [x] NO [], why Disposition: transfer to floor vs dc home Level of Medical Decision Making: risk of morbidity from additional diagnostic testing or treatment due to TBI []High [x]Moderate []Low Personally Reviewed/Independently interpreted patient's: [x]Epic notes [x]Radiology studies [x]Labs []EKG []Ordering tests []Other Discussed/ With: [x]Patient/Family [x]RN [x]Consultants []Primary Team []SW/TCC []Other I have discussed with the patient calling our office or coming to the ED with fevers/chills, nausea, vomiting or worsening pain. Discharge and follow up instruction discussed. I personally spent greater than 30 minutes involved with discharge planning, education, and coordination in arranging this patient's discharge today. Osiel Holguin MD FACS Trauma, Surgical Critical Care, & General Surgery Division of Trauma Department of Surgery [facility] P [1] Patient Active Problem List Diagnosis Hyperglycemia CAD, multiple vessel S/P CABG x 3 Fall Intraventricular hemorrhage (HCC) Intracranial hemorrhage (HCC) Daily Trauma Progress Note BRANDAN 02/21/2025 7:15 AM Admit Date: 02/20/2025 Post Trauma Day 1 Fall Mechanical HISTORY OF TRAUMATIC EVENT: 69 y.o. male status post fall. The incident happened around this am on 02/20/2025 at [facility]. When the event happened the patient was leaving the hospital after a sleep study and fell- did not get dizzy but lost his footing. INJURIES: Temporal IPH PROCEDURES: none INCIDENTAL FINDINGS: none CHIEF COMPLAINT: fall PREVIOUS 24 HOUR EVENTS: - presented as direct admit - Repeat CT head negative Consults: IP CONSULT TO GERIATRICS IP CONSULT TO PALLIATIVE CARE MEDICATIONS: Current Medications[1] ARE THERE PERTINENT UPDATES TO PAST,FAMILY, OR SOCIAL HISTORY?: No Subjective: Doing well, no pain Review of Systems HENT (more content not included)... Normal [facility] BASIC METABOLIC PANELon - Anion gap [Moles/Vol] 6 mmol/L Normal 3-13 [facility] Comment on above: Performed By: #### L AB15 ####Cone Cleaner: JOHANNA PAYAN ([id number])[facility] ([facility])[address] [place] [address] Calcium [Mass/Vol] 8.8 mg/dL Normal 8.8-10.0 [facility] Comment on above: Performed By: #### L AB15 ####Cone Cleaner: JOHANNA PAYAN ([phone])[facility] ([facility])[address] [place] [address] [place] Chloride [Moles/Vol] 108 mmol/L High 98-107 [facility] Comment on above: Performed By: #### L AB15 ####Cone Cleaner: JOHANNA PAYAN ([phone])[facility] ([facility])[address] [place] [address] CO2 [Moles/Vol] 23 mmol/L Normal 23-31 [facility] Comment on above: Performed By: #### L AB15 ####Cone Cleaner: JOHANNA PAYAN ([id number])[facility] ([facility])[address] [place] [address] Creatinine [Mass/Vol] 1.47 mg/dL High 0.72-1.25 [facility] Comment on above: Performed By: #### L AB15 ####Cone Cleaner: JOHANNA PAYAN ([id number])[facility] ([facility])[address] [place] [address] [place] GLOMERULAR FILTRATION RATE ML/MIN/1.73 SQ M.PREDICTED 51.0 mL/min/1.73m*2 Low >60.0 [facility] Comment on above: Result Comment: Calc ulation based on the Chronic Kidney Disease Epidemiology Collaboration (CKD-EPI) equation refit without adjustment for race Performed By: #### L AB15 ####Cone Cleaner: JOHANNA PAYAN ([id number])[facility] ([facility])[address] [place] [address] [place] Glucose [Mass/Vol] 119 mg/dL High 82-115 [facility] Comment on above: Performed By: #### L AB15 ####Cone Cleaner: JOHANNA PAYAN ([id number])[facility] ([facility])[address] [place] [address] Potassium [Moles/Vol] 4.6 mmol/L Normal 3.5-5.1 [facility] Comment on above: Result Comment: Plas ma potassium values may be up to 0.5 mmol/L lower than serum values. Performed By: #### L AB15 ####Cone Cleaner: JOHANNA PAYAN ([id number])[facility] ([facility])[address] [place] [address] Sodium [Moles/Vol] 137 mmol/L Normal 136-145 [facility] Comment on above: Performed By: #### L AB15 ####Cone Cleaner: JOHANNA PAYAN ([id number])[facility] ([facility])[address] [place] [address] Urea nitrogen [Mass/Vol] 26 mg/dL High 9-23 [facility] Comment on above: Performed By: #### L AB15 ####Cone Cleaner: JOHANNA PAYAN ([id number])[facility] ([facility])[address] [place] [address] Basic Metabolic Profile (BMP )on 02-20-2025 BUN/CRE 14.6 RATIO Normal 10-20 [facility] Comment on above: Performed By: #### L 501.9985, L502.0250, L501.0900, L500.4100, L506.1001, L501.5101, L100.0100, L500.4050 #### [facility] [address] [place], [address] Calcium [Mass/Vol] 9.4 mg/dL Normal 7.6-11.0 [facility] Comment on above: Performed By: #### L 501.9985, L502.0250, L501.0900, L500.4100, L506.1001, L501.5101, L100.0100, L500.4050 #### [facility] [address] [place], [address] Chloride [Moles/Vol] 105 mmol/L Normal 98-108 [facility] Comment on above: Performed By: #### L 501.9985, L502.0250, L501.0900, L500.4100, L506.1001, L501.5101, L100.0100, L500.4050 #### [facility] [address] [place], [address] CO2 [Moles/Vol] 21.0 mmol/L Normal 21.0-32.0 [facility] Comment on above: Performed By: #### L 501.9985, L502.0250, L501.0900, L500.4100, L506.1001, L501.5101, L100.0100, L500.4050 #### [facility] [address] [place], [place], [phone] (110) Creatinine [Mass/Vol] 1.74 mg/dL High 0.70-1.20 [facility] Comment on above: Performed By: #### L 501.9985, L502.0250, L501.0900, L500.4100, L506.1001, L501.5101, L100.0100, L500.4050 #### [facility] [address] [place], [place], [id number] (228) ECRCL 38.22 ml/min Low 50-250 [facility] Comment on above: Performed By: #### L 501.9985, L502.0250, L501.0900, L500.4100, L506.1001, L501.5101, L100.0100, L500.4050 #### [facility] [address] [place], [address] GAP 13 Normal 5-15 [facility] Comment on above: Performed By: #### L 501.9985, L502.0250, L501.0900, L500.4100, L506.1001, L501.5101, L100.0100, L500.4050 #### [facility] [address] [place], [address] GFR/1.73 sq M.predicted among non-blacks MDRD (S/P/Bld) [Vol rate/Area] 42 mL/min/{1.73_m2} Low >60 [facility] Comment on above: Result Comment: mL/m in/1.73m2 CKD-EPI Creatinine Equation (2020) Performed By: #### L 501.9985, L502.0250, L501.0900, L500.4100, L506.1001, L501.5101, L100.0100, L500.4050 #### [facility] [address] [place], [address] Glucose [Mass/Vol] 143 mg/dL High 70-99 [facility] Comment on above: Performed By: #### L 501.9985, L502.0250, L501.0900, L500.4100, L506.1001, L501.5101, L100.0100, L500.4050 #### [facility] [address] [place], [address] Potassium [Moles/Vol] 4.9 mmol/L Normal 3.3-5.1 [facility] Comment on above: Performed By: #### L 501.9985, L502.0250, L501.0900, L500.4100, L506.1001, L501.5101, L100.0100, L500.4050 #### [facility] [address] [place], [address] Sodium [Moles/Vol] 139 mmol/L Normal 133-145 [facility] Comment on above: Performed By: #### L 501.9985, L502.0250, L501.0900, L500.4100, L506.1001, L501.5101, L100.0100, L500.4050 #### [facility] [address] [place], [address] Urea nitrogen [Mass/Vol] 25 mg/dL High 4-19 [facility] Comment on above: Performed By: #### L 501.9985, L502.0250, L501.0900, L500.4100, L506.1001, L501.5101, L100.0100, L500.4050 #### [facility] [address] [place], [address] Basic metabolic 1998 panelon 02-20-2025 Anion gap [Moles/Vol] 6 mmol/L 3 - 13 mmol/L [facility] Calcium [Mass/Vol] 8.8 mg/dL 8.8 - 10. 0 mg/dL [facility] Chloride [Moles/Vol] 108 mmol/L High 98 - 107 mmol/L [facility] CO2 [Moles/Vol] 23 mmol/L 23 - 31 mmol/L [facility] Creatinine [Mass/Vol] 1.47 mg/dL High 0.72 - 1.25 mg/dL [facility] GFR/1.73 sq M.predicted (S/P/Bld) [Vol rate/Area] 51 mL/min Low - PINF [facility] Comment on above: Calculation based on the Chronic Kidney Disease Epidemiology Collaboration (CKD-EPI) equation refit without adjustment for race Glucose [Mass/Vol] 119 mg/dL High 82 - 115 mg/dL [facility] Interpretation and review of laboratory results Abnormal [facility] Potassium [Moles/Vol] 4.6 mmol/L 3.5 - 5.1 mmol/L [facility] Comment on above: Plasma potassium barbara ues may be up to 0.5 mmol/L lower than serum values. Sodium [Moles/Vol] 137 mmol/L 136 - 145 mmol/L [facility] Urea nitrogen [Mass/Vol] 26 mg/dL High 9 - 23 mg/dL [facility] Brain/Head without Contrasto n 02-20-2025 Brain/Head without Contrast [facility] Imaging Services [address] [place], [place] [id number] Brain/Head without Contrast MR#: [id number] Acct: [id number] Name: DOUGLAS CALLAWAY Jr. Rep #: [id number] : 1955 M 69 From: Christiano Eduardo MD PCP: Dr. Iván Case MD Status: REG ER Study: Brain/Head without Contrast Date of Exam: 02/04 03/30 Exam# [id number] Ordering Dr: Jennifer Solorzano DO PROCEDURE: BRAIN/HEAD WITHOUT CONTRAST 02/20/2025 REASON FOR EXAM: INJURY TECHNIQUE: BRAIN/HEAD WITHOUT CONTRAST Coronal and Sagittal reconstruction series were provided. One or more dose reduction techniques were used (e.g., Automated exposure control, adjustment of the mA and/or kV according to patient size, use of iterative reconstruction technique. RADIATION DOSE SUMMARY: DLP: 829.85 mGycm COMPARISON: None FINDINGS: Brain: There is increased density in the right posterior temporal lobe, at the posterior region of the insula and lateral ventricle with the appearance of acute blood, axial image 23/45, coronal image 62/90. 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 There is no extra-axial collection. There is no midline shift. Sinuses/Mastoids: Clear Bones: There is no bony abnormality identified. CT/Brain/Head without Contrast IMPRESSION: There is increased density in the right posterior temporal lobe, at the posterior region of the insula and lateral ventricle with the appearance of acute blood, axial image 23/45, coronal image 62/90. 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 Critical results were discussed with Dr. Solorzano by Dr. Eduardo at the time of dictation. Reading Location: [facility] CC: Dr. Jennifer Solorzano DO; Dr. Iván Case MD Toll Ticket Clerk: Signed Normal [facility] CBC (HEMOGRAM)on 02-20-2025 Erythrocyte distribution width (RBC) [Ratio] 13.1 % Normal 11.5-15.0 [facility] Comment on above: Performed By: #### L [id number] ####Cone Cleaner: JOHANNA PAYAN ([id number])[facility])[address] [place] [address] Hematocrit (Bld) [Volume fraction] 36.5 % Low 40.0-52.0 [facility] Comment on above: Performed By: #### L [id number] ####Cone Cleaner: JOHANNA PAYAN ([id number])[facility])[address] [place] [address] Hemoglobin (Bld) [Mass/Vol] 12.3 g/dL Low 13.0-18.0 [facility] Comment on above: Performed By: #### L [id number] ####Cone Cleaner: JOHANNA PAYAN ([id number])[facility])[address] [place] [address] MCH (RBC) [Entitic mass] 32.5 pg Normal 26.0-34.0 [facility] Comment on above: Performed By: #### L [id number] ####Cone Cleaner: JOHANNA PAYAN ([id number])[facility] ([facility])[address] [place] [address] MCHC 33.7 % Normal 30.5-36.0 [facility] Comment on above: Performed By: #### L [id number] ####Cone Cleaner: JOHANNA PAYAN ([id number])[facility])[address] [place] [address] MCV (RBC) [Entitic vol] 96.6 fL Normal 77.0-99.0 [facility] Comment on above: Performed By: #### L [id number] ####Cone Cleaner: JOHANNA PAYAN ([id number])[facility])[address] [place] [address] Platelet mean volume (Bld) [Entitic vol] 9.9 fL Normal 9.0-12.7 [facility] Comment on above: Performed By: #### L [id number] ####Cone Cleaner: JOHANNA PAYAN ([id number])[facility] ([address] Platelets (Bld) [#/Vol] 191 10*3/uL Normal 140-440 [facility] Comment on above: Performed By: #### L [id number] ####Cone Cleaner: JOHANNA PAYAN ([id number])[facility])[address] [place] [address] RBC (Bld) [#/Vol] 3.78 10*6/uL Low 4.40-5.90 [facility] Comment on above: Performed By: #### L AB294 ####Cone Cleaner: JOHANNA PAYAN ([id number])[facility])[address] [place] [address] WBC (Bld) [#/Vol] 8.8 10*3/uL Normal 3.6-10.7 [facility] Comment on above: Performed By: #### L AB294 ####[employer] Cleaner: JOHANNA PAYAN ([id number])[facility] ([facility])[address] [place] [address] CBC W/Diff, Automatedon 06- Absolute Lymph 1.12 X10 3/uL Normal 0.83-4.51 [facility] Comment on above: Performed By: #### L 501.9985, L502.0250, L501.0900, L500.4100, L506.1001, L501.5101, L100.0100, L500.4050 #### [facility] [address] [place], [address] Absolute Neut 6.8 X10 3/uL Normal 2.0-7.7 [facility] Comment on above: Performed By: #### L 501.9985, L502.0250, L501.0900, L500.4100, L506.1001, L501.5101, L100.0100, L500.4050 #### [facility] [address] [place], [address] Basophils/100 WBC (Bld) 0.3 % Normal 0-1 [facility] Comment on above: Performed By: #### L 501.9985, L502.0250, L501.0900, L500.4100, L506.1001, L501.5101, L100.0100, L500.4050 #### [facility] [address] [place], [address] Eosinophils/100 WBC (Bld) 1.4 % Normal 0-5 [facility] Comment on above: Performed By: #### L 501.9985, L502.0250, L501.0900, L500.4100, L506.1001, L501.5101, L100.0100, L500.4050 #### [facility] [address] [place], [address] Erythrocyte distribution width (RBC) [Ratio] 13.1 % Normal 11.6-14.6 [facility] Comment on above: Performed By: #### L 501.9985, L502.0250, L501.0900, L500.4100, L506.1001, L501.5101, L100.0100, L500.4050 #### [facility] [address] [place], [address] Hematocrit (Bld) [Volume fraction] 38.4 % Low 40-54 [facility] Comment on above: Performed By: #### L 501.9985, L502.0250, L501.0900, L500.4100, L506.1001, L501.5101, L100.0100, L500.4050 #### [facility] [address] [place], [address] Hemoglobin (Bld) [Mass/Vol] 12.9 g/dL Low 13.0-16.5 [facility] Comment on above: Performed By: #### L 501.9985, L502.0250, L501.0900, L500.4100, L506.1001, L501.5101, L100.0100, L500.4050 #### [facility] [address] [place], [address] IG% 1.200 High 0.0-0.9 [facility] Comment on above: Result Comment: IG% - Immature Granulocytes (promyelocytes, myelocytes and metamyelocytes) > 1% indicates that a LEFT SHIFT is Present. Performed By: #### L 501.9985, L502.0250, L501.0900, L500.4100, L506.1001, L501.5101, L100.0100, L500.4050 #### [facility] [address] [place], [address] Lymphocytes/100 WBC (Bld) 12.7 % Low 19-41 [facility] Comment on above: Performed By: #### L 501.9985, L502.0250, L501.0900, L500.4100, L506.1001, L501.5101, L100.0100, L500.4050 #### [facility] [address] [place], [address] MCH (RBC) [Entitic mass] 32.3 pg High 27.0-32.0 [facility] Comment on above: Performed By: #### L 501.9985, L502.0250, L501.0900, L500.4100, L506.1001, L501.5101, L100.0100, L500.4050 #### [facility] [address] [place], [address] MCHC (RBC) [Mass/Vol] 33.6 g/dL Normal 32-36 [facility] Comment on above: Performed By: #### L 501.9985, L502.0250, L501.0900, L500.4100, L506.1001, L501.5101, L100.0100, L500.4050 #### [facility] [address] [place], [address] MCV (RBC) [Entitic vol] 96.2 fL High 80-94 [facility] Comment on above: Performed By: #### L 501.9985, L502.0250, L501.0900, L500.4100, L506.1001, L501.5101, L100.0100, L500.4050 #### [facility] [address] [place], [address] Monocytes/100 WBC (Bld) 7.5 % Normal 0-10 [facility] Comment on above: Performed By: #### L 501.9985, L502.0250, L501.0900, L500.4100, L506.1001, L501.5101, L100.0100, L500.4050 #### [facility] [address] [place], [address] Neutrophils/100 WBC (Bld) 76.9 % High 47-70 [facility] Comment on above: Performed By: #### L 501.9985, L502.0250, L501.0900, L500.4100, L506.1001, L501.5101, L100.0100, L500.4050 #### [facility] [address] [place], [address] Nucleated RBC (Bld) [#/Vol] 0 10*3/uL Normal 0-5 [facility] Comment on above: Performed By: #### L 501.9985, L502.0250, L501.0900, L500.4100, L506.1001, L501.5101, L100.0100, L500.4050 #### [facility] [address] [place], [address] Platelet mean volume (Bld) [Entitic vol] 9.8 fL Normal 6.2-12.0 [facility] Comment on above: Performed By: #### L 501.9985, L502.0250, L501.0900, L500.4100, L506.1001, L501.5101, L100.0100, L500.4050 #### [facility] [address] [place], [address] Platelets (Bld) [#/Vol] 197 10*3/uL Normal 150-450 [facility] Comment on above: Performed By: #### L 501.9985, L502.0250, L501.0900, L500.4100, L506.1001, L501.5101, L100.0100, L500.4050 #### [facility] [address] [place], [address] RBC (Bld) [#/Vol] 3.99 10*6/uL Low 4.6-6.2 [facility] Comment on above: Performed By: #### L 501.9985, L502.0250, L501.0900, L500.4100, L506.1001, L501.5101, L100.0100, L500.4050 #### [facility] [address] [place], [address] RDW SD 45.5 fl High 35.1-43.9 [facility] Comment on above: Performed By: #### L 501.9985, L502.0250, L501.0900, L500.4100, L506.1001, L501.5101, L100.0100, L500.4050 #### [facility] [address] [place], [address] WBC (Bld) [#/Vol] 8.8 10*3/uL Normal 4.4-11.0 [facility] Comment on above: Performed By: #### L 501.9985, L502.0250, L501.0900, L500.4100, L506.1001, L501.5101, L100.0100, L500.4050 #### [facility] [place], [address] CBC panel Auto (Bld)on 02-20 Erythrocyte distribution width (RBC) [Ratio] 13.1 % 11.5 - 15.0 % [facility] Hematocrit (Bld) [Volume fraction] 36.5 % Low 40.0 - 52.0 % [facility] Hemoglobin (Bld) [Mass/Vol] 12.3 g/dL Low 13.0 - 18.0 g/dL [facility] Interpretation and review of laboratory results Abnormal [facility] MCH (RBC) [Entitic mass] 32.5 pg 26.0 - 34.0 pg [facility] MCHC (RBC) [Mass/Vol] 33.7 % 30.5 - 36.0 % [facility] MCV (RBC) [Entitic vol] 96.6 fL 77.0 - 99.0 fL [facility] Platelet mean volume (Bld) [Entitic vol] 9.9 fL 9.0 - 12.7 fL [facility] Platelets (Bld) [#/Vol] 191 10*3/uL 140 - 440 10*3/uL [facility] RBC (Bld) [#/Vol] 3.78 10*6/uL Low 4.40 - 5.9 0 10*6/uL [facility] WBC (Bld) [#/Vol] 8.8 10*3/uL 3.6 - 10.7 10*3/uL [facility] CT HEAD WO IV CONTRASTon CT HEAD WO IV CONTRAST Patient Name: DOUGLAS CALLAWAY : 1955 Exam Date/Time: 02/20/2025 17:07 Procedure: CT HEAD WO IV CONTRAST Ordering Provider: RAMIREZ NATHAN Reason For Exam: Follow up intracranial hematoma EXAMINATION: CT of the head without intravenous contrast. INDICATION: Follow up intracranial hematoma COMPARISON: None TECHNIQUE: Thin axial imaging of the head was performed without intravenous contrast. Images were reformatted in coronal and sagittal projections using the raw CT data and were interpreted in conjunction with the axial images to render the findings listed below. Dose reduction was employed with automated exposure control. FINDINGS: Limitations: None Ventricles: Generalized enlargement of the ventricles and sulci is noted. No extracerebral collection with mass effect. Brain: No mass or acute hemorrhage. No evidence of acute infarct. Hypodensity noted in the left insula may reflect prominent perivascular space or remote infarct. Brainstem: Normal Paranasal sinuses: Opacification of the right sphenoid sinus with thickening of the left sphenoid sinus observed. Mastoids: Clear. Skull and orbits: The skull and orbits are within normal limits. IMPRESSION: No acute intracranial abnormality. Chronic microvascular change. Sphenoid sinusitis of unknown chronicity. Report Dictated on Electronically Signed By: Kwan Florian MD Electronically Signed Date/Time: 02/20/2025 7:21 PM EDT [facility] CT Head WO contraston 2024 No acute intracrania l abnormality. Chronic microvascular change. Sphenoid sinusitis of unknown chronicity. Report Dictated on Electronically Signed By: Kwan Florian MD Electronically Signed Date/Time: 02/20/2025 7:21 PM EDT [facility] T[facility]ER [facility] 1955 [id number] Exam Date/Time: 02/20/2025 17:07 Procedure: CT HEAD WO IV CONTRAST Ordering Provider: RAMIREZ NATHAN Reason For Exam: Follow up intracranial hematoma EXAMINATION: CT of the head without intravenous contrast. INDICATION: Follow up intracranial hematoma COMPARISON: None TECHNIQUE: Thin axial imaging of the head was performed without intravenous contrast. Images were reformatted in coronal and sagittal projections using the raw CT data and were interpreted in conjunction with the axial images to render the findings listed below. Dose reduction was employed with automated exposure control. FINDINGS: Limitations: None Ventricles: Generalized enlargement of the ventricles and sulci is noted. No extracerebral collection with mass effect. Brain: No mass or acute hemorrhage. No evidence of acute infarct. Hypodensity noted in the left insula may reflect prominent perivascular space or remote infarct. Brainstem: Normal Paranasal sinuses: Opacification of the right sphenoid sinus with thickening of the left sphenoid sinus observed. Mastoids: Clear. Skull and orbits: The skull and orbits are within normal limits. [facility] Kwan Florian MD - 02/20/2025 Patient Name: DOUGLAS CALLAWAY : 1955 Exam Date/Time: 02/20/2025 17:07 Procedure: CT HEAD WO IV CONTRAST Ordering Provider: RAMIREZ NATHAN Reason For Exam: Follow up intracranial hematoma EXAMINATION: CT of the head without intravenous contrast. INDICATION: Follow up intracranial hematoma COMPARISON: None TECHNIQUE: Thin axial imaging of the head was performed without intravenous contrast. Images were reformatted in coronal and sagittal projections using the raw CT data and were interpreted in conjunction with the axial images to render the findings listed below. Dose reduction was employed with automated exposure control. FINDINGS: Limitations: None Ventricles: Generalized enlargement of the ventricles and sulci is noted. No extracerebral collection with mass effect. Brain: No mass or acute hemorrhage. No evidence of acute infarct. Hypodensity noted in the left insula may reflect prominent perivascular space or remote infarct. Brainstem: Normal Paranasal sinuses: Opacification of the right sphenoid sinus with thickening of the left sphenoid sinus observed. Mastoids: Clear. Skull and orbits: The skull and orbits are within normal limits. IMPRESSION: No acute intracranial abnormality. Chronic microvascular change. Sphenoid sinusitis of unknown chronicity. Report Dictated on Electronically Signed By: Kwan Florian MD Electronically Signed Date/Time: 02/20/2025 7:21 PM ED[facility] contrastOrdered B y: Kwan Flroian on 02-20-2025 [facility] Work Phone: Emergency Department Summary on 02-20-2025 Emergency Department Summary [facility] Medical Records Department [address] [place] [address] Emergency Department Summary 02/20/25 MR#: [id number] Acct: [id number] Name: DOUGLAS CALLAWAY JrJoann Rep #: [id number] : 1955 69 From: Jennifer Solorzano DO PCP: Dr. Iván Csae MD Status:DEP ER Location: ED HPI HPI - Fall History of Present Illness Chief Complaint: Fall Informant: patient Narrative Narrative: 69-year-old male presenting to the emergency room following a fall. 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 He notes abrasion to left finger and abrasions to his face and chin. No loss of conscious. He denies any neck pain. He denies any dental pain. He is able to open his jaw without pain. Unsure of last tetanus. He is not anticoagulated does take aspirin therapy. Tetanus Immunization: Unknown [facility] Medical History Exocrine pancreatic insufficiency Gastritis Bile leak CPAP (continuous positive airway pressure) dependence Acute cholecystitis due to biliary calculus Common bile duct dilatation Irritable bowel Syncope Irregular heartbeat Acute gallstone pancreatitis Wears glasses Cancer Diabetes Gout Hepatitis Gastric reflux Former smoker History of echocardiogram History of stress test Hypertension Cardiology follow-up encounter Gastroparesis Squamous cell carcinoma Atherosclerosis of coronary artery of [place] heart without angina pectoris Hepatitis A Elevated LFTs Hyperlipidemia Type 2 diabetes mellitus without complication Bipolar II disorder Insomnia Essential hypertension CVA (cerebral vascular accident) (2003) TIA (transient ischemic attack) (2003) Diarrhea Depression GERD (gastroesophageal reflux disease) Sleep apnea Home Medications ???Medication ???Instructions ???Recorded ???Last Taken ???Type dorzolamide 22.3 mg-timolol 6.8 1 drp ophthalmic (eye) BID 0 02/20/25 History mg/mL eye drops (Cosopt) alendronate 70 mg tablet 70 mg PO QWEEK 09/17/22 02/18/25 H istory primidone 50 mg tablet 50 mg PO DAILY 09/24/23 02/20/25 H istory ferrous sulfate 325 mg (65 mg 325 mg PO DAILY 02/14/24 02/20/25 History iron) tablet (Roberto Carlos-Time) mecobalamin (vitamin B12) 1,000 1,000 mcg PO DAILY 02/14/24 History mcg chewable tablet rosuvastatin 10 mg tablet 10 mg PO DAILY #90 tabs 07/05/24 0 02/19/25 Rx aspirin 81 mg tablet,delayed 81 mg PO DAILY 08/14/24 02/20/25 H istory release (Adult Low Dose Aspirin) calcium 600 mg (as 1 cap PO DAILY 08/14/24 02/20/25 H istory carbonate)-vitamin D3 12.5 mcg (500 unit) capsule losartan 50 mg tablet 50 mg PO DAILY #30 tabs 08/14/24 0 02/20/25 Rx duloxetine 60 mg capsule,delayed 60 mg PO DAILY 90 days #90 caps 02/20/25 Rx release lamotrigine 200 mg tablet 200 mg PO DAILY 90 days #90 tabs 0 09/26/24 02/20/25 Rx doxepin 10 mg capsule 10 mg PO QHS PRN angioedema Unknown History metformin 1,000 mg tablet 1,000 mg PO BID 02/20/25 02/20/25 History Allergy/AdvReac Type Severity Reaction Status Date / Time No Known Allergies Allergy Verified 02/20/25 11:14 Family History Father Colon cancer CAD (coronary artery disease) Mother Gastric ulcer Pacemaker Pulmonary fibrosis Heart disease Surgical History History of right shoulder replacement History of ERCP History of surgery on arm S/P laparoscopic cholecystectomy History of cardiac catheterization H/O coronary artery bypass surgery (12/15/19) History of left heart catheterization (11/20/19) History of colonoscopy (2016) History of esophagogastroduodenoscopy (EGD) History of wisdom tooth extraction History of tonsillectomy History of cataract extraction Social History Smoking Status: Former smoker how long ago did patient quit smokin + years ago alcohol intake: current alcohol intake frequency: a few times a month substance use type: does not use caffeine: Yes Type: coffee Number of servings: 1 ROS ROS ED Constitutional Constitutional ED: Denies chills, fever(s) or weight loss Eyes Eyes: Denies change in vision or diplopia ENT ENT ED: Denies ear pain, rhinorrhea or sore throat Cardiovascular Cardiovascular: Denies chest pain, orthopnea, palpitations or racing heartbeat Respiratory/Chest Respiratory/Chest: Denies cough, dyspnea or orthopnea Gastrointestinal Gastrointestinal: Denies abdominal pain, diarrhea, nausea or vomiting Genitourinary Genitourinary ED: Denies dysuria, hematuria or ur (more content not included)... Normal [facility] - Chemistry and C hemistry - challengeon 02-20-2025 Glucose [Mass/Vol] 116 mg/dL High 70 - 100 mg/dL [facility] Glucose [Mass/Vol] 115 mg/dL High 70 - 100 mg/dL [facility] Microalb:Creat Ratio,Random URon 02-20-2025 MALB:CREAT 2212.4 mg/g CRE Normal [facility] Comment on above: Result Comment: AMENDED REPORT 02/20/25 6780 MALB:CREAT previously reported as: 704[address].7 mg/g CRE Performed By: #### L 501.9985, L502.0250, L501.0900, L500.4100, L506.1001, L501.5101, L100.0100, L500.4050 #### [facility] [address] [place], [place], [id number] No Panel Informationon 02-20 Interpretation and review of laboratory results Abnormal [facility] Performed by: [place] [address] CLIA ID: [id number] [facility] Interpretation and review of laboratory results Abnormal [facility] Performed by: [address] [address] CLIA ID: [id number] [facility] Radiology Study observation (narrative) [facility] Partial Thromboplast Timeon 02-20-2025 aPTT Coag (Bld) [Time] 22.1 s Low 24.1-36.2 [facility] Comment on above: Performed By: #### L 501.9985, L502.0250, L501.0900, L500.4100, L506.1001, L501.5101, L100.0100, L500.4050 #### [facility] [address] [place], [place], [address] Prothrombin Time w/INRon INR Coag (PPP) [Relative time] 1.0 {INR} Normal [facility] Comment on above: Performed By: #### L 501.9985, L502.0250, L501.0900, L500.4100, L506.1001, L501.5101, L100.0100, L500.4050 #### [facility] [address] [place], [address] PT Coag (PPP) [Time] 13.3 s Normal 11.7-14.9 [facility] Comment on above: Performed By: #### L 501.9985, L502.0250, L501.0900, L500.4100, L506.1001, L501.5101, L100.0100, L500.4050 #### [facility] [address] [place], [address] Cardiology Visit Reporton Cardiology Visit Report [facility] [address] [place], [place] [address] OFFICE VISIT Date of Service: 02/12/25 MR#: [id number] Acct: [id number] Name: DOUGLAS CALLAWAY Rep #: [id number] : 1955 Provider: NERI bateman Age/Sex: 69/M Location: [facility] [place] Status: Signed HPI HPI History of Present Illness Details: This is a 69-year-old man who presents to the office today for a cardiovascular outpatient visit. He has a history of hypertension and recently diagnosed triple-vessel disease for which he was sent for and underwent coronary artery bypass surgery in December 2019. He had a left internal mammary artery to the left anterior descending artery, saphenous vein graft to the first diagonal vessel, saphenous vein graft to the second diagonal vessel. His repeat echocardiogram demonstrated an ejection fraction of 60% with stage I diastolic dysfunction. He has had a series of falls and tells me that he has been evaluated by neurology for the etiology of the above. He thinks that it is more of balance problems rather than losing consciousness. He had a loop recorder placed in November of this year. He denies chest, arm, jaw, or neck discomfort. He denies palpitations. He denies bilateral lower extremity edema. He denies claudication. He states shortness of breath with activity such as carrying something up the stairs. This is unchanged since last visit. This is intermittent. This was not noted prior to CABG. He denies, shortness of breath at rest, orthopnea, or PND. He denies chronic cough. He denies significant, sudden weight gain. He denies lightheadedness, dizziness, near-syncope, or syncope. He denies blood in urine, blood in stool, or epistaxis. He denies fever with chills. He denies myalgia. He states fatigue that is improved since starting CPAP. His exercise level has remained stable. He acknowledges generalized weakness. Intake Vital Signs 08/14/24 11:35 02/01/25 08:16 02/12/25 11:03 Height 5 ft 8 in 5 ft 8 in 5 ft 8 in Weight: 166 lb BMI 25.2 BP 156/94 H Blood Pressure Location Lt brachial Position Sitting Respiration 18 Pulse 103 H Pulse Source Monitor Intake Visit Reasons: 6 M FU Dragline Operator Required: No Accompanied by: Self Is patient in pain?: No Allergies No Known Allergies Allergy (Verified 02/12/25 11:04) Medications ???Medication ???Instructions ???Recorded ???Confirmed ???Type dorzolamide 22.3 mg-timolol 6.8 1 drp ophthalmic (eye) BID 09/28/ 0 02/12/25 History mg/mL eye drops (Cosopt) metformin 1,000 mg tablet 1,000 mg PO BID #0 tabs 09/04/21 0 02/12/25 Rx alendronate 70 mg tablet 70 mg PO QWEEK 09/17/22 02/12/25 H istory primidone 50 mg tablet 50 mg PO DAILY 09/24/23 02/12/25 H istory ferrous sulfate 325 mg (65 mg 325 mg PO DAILY 02/14/24 02/12/25 History iron) tablet (Roberto Carlos-Time) mecobalamin (vitamin B12) 1,000 1,000 mcg PO DAILY 02/14/24 History mcg chewable tablet rosuvastatin 10 mg tablet 10 mg PO DAILY #90 tabs 07/05/24 0 02/12/25 Rx aspirin 81 mg tablet,delayed 81 mg PO QDAY 08/14/24 02/12/25 Hi story release (Adult Low Dose Aspirin) calcium 600 mg (as 1 cap PO DAILY 08/14/24 02/12/25 H istory carbonate)-vitamin D3 12.5 mcg (500 unit) capsule losartan 50 mg tablet 50 mg PO DAILY #30 tabs 08/14/24 0 02/12/25 Rx duloxetine 60 mg capsule,delayed 60 mg PO DAILY 90 days #90 caps 02/12/25 Rx release lamotrigine 200 mg tablet 200 mg PO DAILY 90 days #90 tabs 0 09/26/24 02/12/25 Rx doxepin 10 mg capsule 10 mg PO QHS PRN 02/01/25 02/12/25 History Have you fallen in the past year?: Yes (several- loses balance) [facility] Medical History (Updated 02/12/25 @ 11:35 by Iván Sexton CHILD LIFE SPECIALIST, CHILD LIFE SPECIALIST-C) Exocrine pancreatic insufficiency Gastritis Bile leak CPAP (continuous positive airway pressure) dependence Acute cholecystitis due to biliary calculus Common bile duct dilatation Irritable bowel Syncope Irregular heartbeat Acute gallstone pancreatitis Wears glasses Cancer Diabetes Gout Hepatitis Gastric reflux Former smoker History of echocardiogram History of stress test Hypertension Cardiology follow-up encounter Gastroparesis Squamous cell carcinoma Atherosclerosis of coronary artery of [place] heart without angina pectoris Hepatitis A Elevated LFTs Hyperlipidemia Type 2 diabetes mellitus without complication Bipolar II disorder Insomnia Essential hypertension CVA (cerebral vascular accident) (2003) TIA (transient ischemic attack) (2003) Diarrhea Depression GERD (gastroesophageal reflux disease) Sleep apnea Surgical History History of right shoulder replacement History of ERCP History of surgery on arm S/P laparoscopi (more content not included)... Normal [facility] Pulmonary Visit Reporton Pulmonary Visit Report [facility] [place] [address] [place], [place] [id number] OFFICE VISIT Date of Service: 02/01/25 MR#: [id number] Acct: [id number] Name: DOUGLAS CALLAWAY Jr. Rep #: [id number] : 1955 Provider: NERI Berger Age/Sex: 69/M Location: [facility] [place].[facility] Status: Signed Assessment and Plan Assessment and Plan (1) CABRERA (obstructive sleep apnea): Status: Acute Comment: AHI 60.3, AutoPap Plan: Improved, he is using and benefiting from Pap therapy. No indication for titration study at this time. However, I am sending him to Pap education for tips and to evaluate his mask fit. Contact the office for any new or worsening symptoms in the meantime. Follow-up in 3 months to evaluate compliance report for continued mask leaks. (2) Essential hypertension: Status: Chronic Plan: Anticipate that compliance with PAP therapy will improve his hypertension. Orders: Orders Self Mgmnt Educ Training Today G47.33 - Obstructive sleep apnea (adult) (pediatric) Plan Details Additional Comments: This note was generated with [employer] dictation software. It may contain incorrect words, spelling, and punctuation that were not noted in checking the note before signing. Follow Up: 3 Months HPI HPI Comments Details: This patient presents to the office today for follow-up of his obstructive sleep apnea. He is ambulatory with the use of a cane and currently on room air. He has not recently been seen in the ED or urgent care for respiratory illness. Is not required any antibiotics or prednisone for any breathing problems. He has no difficulty with shortness of breath. He denies any cough. He denies sputum production or hemoptysis. He denies any wheezing, chest tightness, chest pain or palpitations. He also denies any fever, chills or body aches. He is not waking feeling rested with the use of his PAP device. He does report difficulty with mask leaks and dry mouth. His naps are less frequent and shorter in duration. He has not nodding off to sleep unintentionally. He is not having excessive nocturia. Test results personally reviewed with the patient: Polysomnogram completed on November 21, 2024. Overall AHI is 60.3 events per hour, elevated to 64.5 events per hour in the supine position. Impression is obstructive sleep apnea. Compliance report for the past 30 days shows 97% compliance with average use of 5 hours and 33 minutes per night. Current setting is AutoPap 5-15 cmH2O with a residual AHI 3.2 events per hour. Leaks do appear to be somewhat problematic. Intake Vital Signs 10/26/24 08:03 02/01/25 08:16 Height 5 ft 8 in 5 ft 8 in Weight: 165 lb BMI 25.0 BP 170/99 H Blood Pressure Location Lt brachial Position Sitting Respiration 16 Pulse 60 Pulse Source NIBP Temp 97.5 F L Temperature Source Temporal Artery Comment First BP 184/83, same arm Intake Visit Reasons: 3 M FU Chief Complaint: gallstone pancreatitis Dragline Operator Required: No DME Vendor: CPAP- [employer] Accompanied by: Self Is patient in pain?: No Allergies No Known Allergies Allergy (Verified 02/01/25 13:20) Medications ???Medication ???Instructions ???Recorded ???Confirmed ???Type dorzolamide 22.3 mg-timolol 6.8 1 drp ophthalmic (eye) BID 0 02/01/25 History mg/mL eye drops (Cosopt) metformin 1,000 mg tablet 1,000 mg PO BID #0 tabs 09/04/21 0 02/01/25 Rx alendronate 70 mg tablet 70 mg PO QWEEK 09/17/22 02/01/25 H istory primidone 50 mg tablet 50 mg PO DAILY 09/24/23 02/01/25 H istory ferrous sulfate 325 mg (65 mg 325 mg PO DAILY 02/14/24 02/01/25 History iron) tablet (Roberto Carlos-Time) mecobalamin (vitamin B12) 1,000 1,000 mcg PO DAILY 02/14/24 History mcg chewable tablet rosuvastatin 10 mg tablet 10 mg PO DAILY #90 tabs 07/05/24 0 02/01/25 Rx aspirin 81 mg tablet,delayed 81 mg PO QDAY 08/14/24 02/01/25 Hi story release (Adult Low Dose Aspirin) calcium 600 mg (as 1 cap PO DAILY 08/14/24 02/01/25 H istory carbonate)-vitamin D3 12.5 mcg (500 unit) capsule losartan 50 mg tablet 50 mg PO DAILY #30 tabs 08/14/24 0 5/29/25 Rx duloxetine 60 mg capsule,delayed 60 mg PO DAILY 90 days #90 caps 02/01/25 Rx release lamotrigine 200 mg tablet 200 mg PO DAILY 90 days #90 tabs 0 09/26/24 02/01/25 Rx doxepin 10 mg capsule 10 mg PO QHS PRN 02/01/25 History Have you fallen in the past year?: Yes (Fell last week) [facility] Medical History Exocrine pancreatic insufficiency Gastritis Bile leak CPAP (continuous positive airway pressure) dependence Acute cholecystitis due to biliary calculus Common bile duct dilatation Irritable bowel Syncope Irregular heartbeat Acute gallstone fuentes (more content not included)... Normal [facility] MR/BMS.BPon 12-25-2024 MR/BMS.BP [address], [address] [place] [address] OFFICE VISIT Date of Service: 12/25/24 MR#: [id number] Acct: [id number] Name: DOUGLAS CALLAWAY Rep #: [id number] : 1955 Provider: Dr. Nilay Hamlin se, DO Age/Sex: 69/M Location: [facility] [place].BP Status: Signed Intake Vital Signs 09/26/24 13:03 10/26/24 08:03 12/25/24 13:03 Height 5 ft 8 in 5 ft 8 in 5 ft 8 in BP 152/84 H Blood Pressure Location Lt brachial Position Sitting Respiration 16 Pulse 92 Pulse Source Monitor BP Intake Visit Reasons: 3mfu Accompanied by: Self Allergies No Known Allergies Allergy (Verified 12/25/24 13:04) Medications ???Medication ???Instructions ???Recorded ???Confirmed ???Type dorzolamide 22.3 mg-timolol 6.8 1 drp ophthalmic (eye) BID 0 12/25/24 History mg/mL eye drops (Cosopt) metformin 1,000 mg tablet 1,000 mg PO BID #0 tabs 09/04/21 0 12/25/24 Rx alendronate 70 mg tablet 70 mg PO QWEEK 09/17/22 12/25/24 H istory primidone 50 mg tablet 50 mg PO DAILY 09/24/23 12/25/24 H istory ferrous sulfate 325 mg (65 mg 325 mg PO DAILY 02/14/24 12/25/24 History iron) tablet (Roberto Carlos-Time) mecobalamin (vitamin B12) 1,000 1,000 mcg PO DAILY 02/14/24 History mcg chewable tablet dapagliflozin propanediol 10 mg 10 mg PO QDAY 04/20/24 12/25/24 Hi story tablet (Farxiga) rosuvastatin 10 mg tablet 10 mg PO DAILY #90 tabs 07/05/24 0 12/25/24 Rx aspirin 81 mg tablet,delayed 81 mg PO QDAY 08/14/24 12/25/24 Hi story release (Adult Low Dose Aspirin) calcium 600 mg (as 1 cap PO DAILY 08/14/24 12/25/24 H istory carbonate)-vitamin D3 12.5 mcg (500 unit) capsule losartan 50 mg tablet 50 mg PO DAILY #30 tabs 08/14/24 0 12/25/24 Rx duloxetine 60 mg capsule,delayed 60 mg PO DAILY 90 days #90 caps 12/25/24 Rx release lamotrigine 200 mg tablet 200 mg PO DAILY 90 days #90 tabs 0 09/26/24 12/25/24 Rx doxepin 10 mg capsule 10 mg PO QHS #30 caps 11/24/24 Rx Have you fallen in the past year?: Yes [facility] Medical History Exocrine pancreatic insufficiency Gastritis Bile leak CPAP (continuous positive airway pressure) dependence Acute cholecystitis due to biliary calculus Common bile duct dilatation Irritable bowel Syncope Irregular heartbeat Acute gallstone pancreatitis Wears glasses Cancer Diabetes Gout Hepatitis Gastric reflux Former smoker History of echocardiogram History of stress test Hypertension Cardiology follow-up encounter Gastroparesis Squamous cell carcinoma Atherosclerosis of coronary artery of [place] heart without angina pectoris Hepatitis A Elevated LFTs Hyperlipidemia Type 2 diabetes mellitus without complication Bipolar II disorder Insomnia Essential hypertension CVA (cerebral vascular accident) (2003) TIA (transient ischemic attack) (2003) Diarrhea Depression GERD (gastroesophageal reflux disease) Sleep apnea Surgical History History of right shoulder replacement History of ERCP History of surgery on arm S/P laparoscopic cholecystectomy History of cardiac catheterization H/O coronary artery bypass surgery (12/15/19) History of left heart catheterization (11/20/19) History of colonoscopy (2017) History of esophagogastroduodenoscopy (EGD) History of wisdom tooth extraction History of tonsillectomy History of cataract extraction Family History Father Colon cancer CAD (coronary artery disease) Mother Gastric ulcer Pacemaker Pulmonary fibrosis Heart disease Social History Smoking Status: Former smoker how long ago did patient quit smokin + years ago alcohol intake: current alcohol intake frequency: a few times a month substance use type: does not use caffeine: Yes Type: coffee Number of servings: 1 HPI History of Present Illness History provided by: patient HPI: Douglas Callaway is a 69 year old male who presents today for follow up evaluation. Patient reports that he has been alright. Recently has gotten a CPAP machine, and is trying to adjust to utilizing. Believes part of this is secondary to not having a good seal with his current mask. As he is on medicare does worry about hitting their utilization numbers. Is optimistic this will improve. On the recognized that he has been suffering from a low grade depression. Elaborates that it didn't limit him functionally, but in retrospect noticed that he had been feeling down. Has had some significant stress related to politics and current events. Did go to [place] in November for a of a fr (more content not included)... Normal [facility] L501.5101on 11-27-2024 GGTP 26 IU/L Normal 0-65 [facility] Comment on above: Order Comment: ZULEYMA Whitley ADD GGTP TO BLOOD DRAWN 11/22/24 PER Result Comment: Perf ormed at: - [facility] [address] [place] [id number] [employer]inct Commanding Officer: Alfonzo Martin PhD, Phone: [phone] Performed By: #### L 233.9678, L502.0250, L501.0900, L500.4100, L506.1001, L501.5101, L100.0100, L500.4050 #### [facility] [address] [place], [address] Protein+Creatinine Ratio,Uri neon 11-23-2024 UR CREAT 74.40 mg/dL Normal 39.00-259.0 0 [facility] Comment on above: Performed By: #### L 501.9985, L502.0250, L501.0900, L500.4100, L506.1001, L501.5101, L100.0100, L500.4050 #### [facility] [address] [place], [address] CBC W/Diff, Automatedon 11-04 Absolute Lymph 1.64 X10 3/uL Normal 0.83-4.51 [facility] Comment on above: Performed By: #### L 501.9985, L502.0250, L501.0900, L500.4100, L506.1001, L501.5101, L100.0100, L500.4050 #### [facility] [address] [place], [address] Absolute Neut 4.3 X10 3/uL Normal 2.0-7.7 [facility] Comment on above: Performed By: #### L 501.9985, L502.0250, L501.0900, L500.4100, L506.1001, L501.5101, L100.0100, L500.4050 #### [facility] [address] [place], [address] Basophils/100 WBC (Bld) 0.6 % Normal 0-1 [facility] Comment on above: Performed By: #### L 501.9985, L502.0250, L501.0900, L500.4100, L506.1001, L501.5101, L100.0100, L500.4050 #### [facility] [address] [place], [address] Eosinophils/100 WBC (Bld) 2.1 % Normal 0-5 [facility] Comment on above: Performed By: #### L 501.9985, L502.0250, L501.0900, L500.4100, L506.1001, L501.5101, L100.0100, L500.4050 #### [facility] [address] [place], [address] Erythrocyte distribution width (RBC) [Ratio] 12.7 % Normal 11.6-14.6 [facility] Comment on above: Performed By: #### L 501.9985, L502.0250, L501.0900, L500.4100, L506.1001, L501.5101, L100.0100, L500.4050 #### [facility] [address] [place], [address] Hematocrit (Bld) [Volume fraction] 40.5 % Normal 40-54 [facility] Comment on above: Performed By: #### L 501.9985, L502.0250, L501.0900, L500.4100, L506.1001, L501.5101, L100.0100, L500.4050 #### [facility] [address] [place], [address] Hemoglobin (Bld) [Mass/Vol] 13.2 g/dL Normal 13.0-16.5 [facility] Comment on above: Performed By: #### L 501.9985, L502.0250, L501.0900, L500.4100, L506.1001, L501.5101, L100.0100, L500.4050 #### [facility] [address] [place], [address] IG% 0.700 Normal 0.0-0.9 [facility] Comment on above: Result Comment: IG% - Immature Granulocytes (promyelocytes, myelocytes and metamyelocytes) > 1% indicates that a LEFT SHIFT is Present. Performed By: #### L 501.9985, L502.0250, L501.0900, L500.4100, L506.1001, L501.5101, L100.0100, L500.4050 #### [facility] [address] [place], [address] Lymphocytes/100 WBC (Bld) 23.0 % Normal 19-41 [facility] Comment on above: Performed By: #### L 501.9985, L502.0250, L501.0900, L500.4100, L506.1001, L501.5101, L100.0100, L500.4050 #### [facility] [address] [place], [address] MCH (RBC) [Entitic mass] 32.4 pg High 27.0-32.0 [facility] Comment on above: Performed By: #### L 501.9985, L502.0250, L501.0900, L500.4100, L506.1001, L501.5101, L100.0100, L500.4050 #### [facility] [address] [place], [address] MCHC (RBC) [Mass/Vol] 32.6 g/dL Normal 32-36 [facility] Comment on above: Performed By: #### L 501.9985, L502.0250, L501.0900, L500.4100, L506.1001, L501.5101, L100.0100, L500.4050 #### [facility] [address] [place], [address] MCV (RBC) [Entitic vol] 99.5 fL High 80-94 [facility] Comment on above: Performed By: #### L 501.9985, L502.0250, L501.0900, L500.4100, L506.1001, L501.5101, L100.0100, L500.4050 #### [facility] [address] [place], [address] Monocytes/100 WBC (Bld) 12.6 % High 0-10 [facility] Comment on above: Performed By: #### L 501.9985, L502.0250, L501.0900, L500.4100, L506.1001, L501.5101, L100.0100, L500.4050 #### [facility] [address] [place], [address] Neutrophils/100 WBC (Bld) 61.0 % Normal 47-70 [facility] Comment on above: Performed By: #### L 501.9985, L502.0250, L501.0900, L500.4100, L506.1001, L501.5101, L100.0100, L500.4050 #### [facility] [address] [place], [address] Nucleated RBC (Bld) [#/Vol] 0 10*3/uL Normal 0-5 [facility] Comment on above: Performed By: #### L 501.9985, L502.0250, L501.0900, L500.4100, L506.1001, L501.5101, L100.0100, L500.4050 #### [facility] [address] [place], [address] Platelet mean volume (Bld) [Entitic vol] 10.6 fL Normal 6.2-12.0 [facility] Comment on above: Performed By: #### L 501.9985, L502.0250, L501.0900, L500.4100, L506.1001, L501.5101, L100.0100, L500.4050 #### [facility] [address] [place], [address] Platelets (Bld) [#/Vol] 214 10*3/uL Normal 150-450 [facility] Comment on above: Performed By: #### L 501.9985, L502.0250, L501.0900, L500.4100, L506.1001, L501.5101, L100.0100, L500.4050 #### [facility] [address] [place], [place], [phone] (746) RBC (Bld) [#/Vol] 4.07 10*6/uL Low 4.6-6.2 [facility] Comment on above: Performed By: #### L 501.9985, L502.0250, L501.0900, L500.4100, L506.1001, L501.5101, L100.0100, L500.4050 #### [facility] [address] [place], [place], [phone] (523) RDW SD 46.2 fl High 35.1-43.9 [facility] Comment on above: Performed By: #### L 501.9985, L502.0250, L501.0900, L500.4100, L506.1001, L501.5101, L100.0100, L500.4050 #### [facility] [address] [place], [place], [phone] (908) WBC (Bld) [#/Vol] 7.1 10*3/uL Normal 4.4-11.0 [facility] Comment on above: Performed By: #### L 501.9985, L502.0250, L501.0900, L500.4100, L506.1001, L501.5101, L100.0100, L500.4050 #### [facility] [address] [place], [place], [phone] Comprehensive Metabolic Prof ilon 11-22-2024 Albumin [Mass/Vol] 3.8 g/dL Normal 3.4-4.8 [facility] Comment on above: Performed By: #### L 501.9985, L502.0250, L501.0900, L500.4100, L506.1001, L501.5101, L100.0100, L500.4050 #### [facility] [address] [place], [address] Albumin/Globulin [Mass ratio] 1.5 {ratio} Normal 0.9-2.4 [facility] Comment on above: Performed By: #### L 501.9985, L502.0250, L501.0900, L500.4100, L506.1001, L501.5101, L100.0100, L500.4050 #### [facility] [address] [place], [address] ALK PHOS 193 U/L High 40-129 [facility] Comment on above: Performed By: #### L 501.9985, L502.0250, L501.0900, L500.4100, L506.1001, L501.5101, L100.0100, L500.4050 #### [facility] [address] [place], [address] ALT [Catalytic activity/Vol] 24 U/L Normal <=46 [facility] Comment on above: Performed By: #### L 501.9985, L502.0250, L501.0900, L500.4100, L506.1001, L501.5101, L100.0100, L500.4050 #### [facility] [address] [place], [address] AST [Catalytic activity/Vol] 28 U/L Normal <=37 [facility] Comment on above: Performed By: #### L 501.9985, L502.0250, L501.0900, L500.4100, L506.1001, L501.5101, L100.0100, L500.4050 #### [facility] [address] [place], [address] Bilirubin [Mass/Vol] 0.30 mg/dL Normal 0.00-1.30 [facility] Comment on above: Performed By: #### L 501.9985, L502.0250, L501.0900, L500.4100, L506.1001, L501.5101, L100.0100, L500.4050 #### [facility] [address] [place], [address] BUN/CRE 18.8 RATIO Normal 10-20 [facility] Comment on above: Performed By: #### L 501.9985, L502.0250, L501.0900, L500.4100, L506.1001, L501.5101, L100.0100, L500.4050 #### [facility] [address] [place], [address] Calcium [Mass/Vol] 9.7 mg/dL Normal 7.6-11.0 [facility] Comment on above: Performed By: #### L 501.9985, L502.0250, L501.0900, L500.4100, L506.1001, L501.5101, L100.0100, L500.4050 #### [facility] [address] [place], [address] Chloride [Moles/Vol] 100 mmol/L Normal 98-108 [facility] Comment on above: Performed By: #### L 501.9985, L502.0250, L501.0900, L500.4100, L506.1001, L501.5101, L100.0100, L500.4050 #### [facility] [address] [place], [address] CO2 [Moles/Vol] 22.5 mmol/L Normal 21.0-32.0 [facility] Comment on above: Performed By: #### L 501.9985, L502.0250, L501.0900, L500.4100, L506.1001, L501.5101, L100.0100, L500.4050 #### [facility] [address] [place], [address] Creatinine [Mass/Vol] 1.70 mg/dL High 0.70-1.20 [facility] Comment on above: Performed By: #### L 501.9985, L502.0250, L501.0900, L500.4100, L506.1001, L501.5101, L100.0100, L500.4050 #### [facility] [address] [place], [place], [phone] GAP 16 High 5-15 [facility] Comment on above: Performed By: #### L 501.9985, L502.0250, L501.0900, L500.4100, L506.1001, L501.5101, L100.0100, L500.4050 #### [facility] [address] [place], [place], [phone] GFR/1.73 sq M.predicted among non-blacks MDRD (S/P/Bld) [Vol rate/Area] 43 mL/min/{1.73_m2} Low >60 [facility] Comment on above: Result Comment: mL/m in/1.73m2 CKD-EPI Creatinine Equation (2020) Performed By: #### L 501.9985, L502.0250, L501.0900, L500.4100, L506.1001, L501.5101, L100.0100, L500.4050 #### [facility] [address] [place], [address] Globulin (S) [Mass/Vol] 2.6 g/dL Normal 2.2-4.2 [facility] Comment on above: Performed By: #### L 501.9985, L502.0250, L501.0900, L500.4100, L506.1001, L501.5101, L100.0100, L500.4050 #### [facility] [address] [place], [address] Glucose [Mass/Vol] 110 mg/dL High 70-99 [facility] Comment on above: Performed By: #### L 501.9985, L502.0250, L501.0900, L500.4100, L506.1001, L501.5101, L100.0100, L500.4050 #### [facility] [address] [place], [address] Potassium [Moles/Vol] 4.2 mmol/L Normal 3.3-5.1 [facility] Comment on above: Performed By: #### L 501.9985, L502.0250, L501.0900, L500.4100, L506.1001, L501.5101, L100.0100, L500.4050 #### [facility] [address] [place], [address] Sodium [Moles/Vol] 138 mmol/L Normal 133-145 [facility] Comment on above: Performed By: #### L 501.9985, L502.0250, L501.0900, L500.4100, L506.1001, L501.5101, L100.0100, L500.4050 #### [facility] [address] [place], [address] T PROT 6.4 g/dL Normal 5.9-8.4 [facility] Comment on above: Performed By: #### L 501.9985, L502.0250, L501.0900, L500.4100, L506.1001, L501.5101, L100.0100, L500.4050 #### [facility] [address] [place], [address] Urea nitrogen [Mass/Vol] 32 mg/dL High 4- [facility] Comment on above: Performed By: #### L 501.9985, L502.0250, L501.0900, L500.4100, L506.1001, L501.5101, L100.0100, L500.4050 #### [facility] [address] [place], [address] Hemoglobin A1con 11-22-2024 HbA1c (Bld) [Mass fraction] 5.9 % Normal <=5.6 [facility] Comment on above: Performed By: #### L 501.9985, L502.0250, L501.0900, L500.4100, L506.1001, L501.5101, L100.0100, L500.4050 #### [facility] [address] [place], [address] L506.1001on 11-22-2024 Vitamin D 25-OH 27.3 ng/mL Low 30-100 [facility] Comment on above: Result Comment: Ladi min D Status Deficiency: <20 ng/mL (50nmol/L) Insufficiency: 20-30 ng/mL (50-75 nmol/L) Sufficiency: 30-100 ng/mL (75-250 nmol/L) Toxicity: >100 ng/mL (>250 nmol/L) Performed By: #### L 501.9985, L502.0250, L501.0900, L500.4100, L506.1001, L501.5101, L100.0100, L500.4050 #### [facility] [address] [place], [address] Lipid Profileon 11-22-2024 CHOL:HDL 2.63 Normal [facility] Comment on above: Performed By: #### L 501.9985, L502.0250, L501.0900, L500.4100, L506.1001, L501.5101, L100.0100, L500.4050 #### [facility] [address] [place], [address] Cholesterol [Mass/Vol] 136 mg/dL Normal <=200 [facility] Comment on above: Result Comment: Chol esterol level, Desirable <200 mg/dL Borderline high cholesterol 200-239 mg/dL High cholesterol >=240 mg/dL Recommendations of the NCEP Adult Treatment Panel for the following risk-cutoff thresholds for the [place] population. Performed By: #### L 501.9985, L502.0250, L501.0900, L500.4100, L506.1001, L501.5101, L100.0100, L500.4050 #### [facility] [address] [place], [address] Cholesterol in HDL [Mass/Vol] 52 mg/dL Normal [facility] Comment on above: Result Comment: Yoana onal Cholesterol Education Program (NCEP) guidelines: <40 mg/dL: Low HDL-cholesterol (major risk factor for CHD) >= 60 mg/dL: High HDL-cholesterol (negative risk factor for CHD) HDL-cholesterol is affected by a number of factors, e.g. smoking, exercise, hormones, sex and age. Performed By: #### L 501.9985, L502.0250, L501.0900, L500.4100, L506.1001, L501.5101, L100.0100, L500.4050 #### [facility] [address] [place], [address] Cholesterol in LDL [Mass/Vol] 14 mg/dL Normal [facility] Comment on above: Result Comment: Bord gvdvav=491-250 mg/dL Higher Jkki=338 mg/dL or greater Performed By: #### L 501.9985, L502.0250, L501.0900, L500.4100, L506.1001, L501.5101, L100.0100, L500.4050 #### [facility] [address] [place], [address] Cholesterol in VLDL [Mass/Vol] 70 mg/dL High 5-40 [facility] Comment on above: Performed By: #### L 501.9985, L502.0250, L501.0900, L500.4100, L506.1001, L501.5101, L100.0100, L500.4050 #### [facility] [address] [place], [place], [address] Triglyceride [Mass/Vol] 349 mg/dL High [facility] Comment on above: Result Comment: The drugs N-Acetylcysteine and Metamizole may falsely depress this assay. Normal range: <150 mg/dL Borderline High: 150-199 mg/dL High: 200-499 mg/dL Very High: >500 mg/dL Performed By: #### L 501.9985, L502.0250, L501.0900, L500.4100, L506.1001, L501.5101, L100.0100, L500.4050 #### [facility] [address] [place], [address] Pulmonary Visit Reporton Pulmonary Visit Report [facility] [place] [address] [place], [place] [address] OFFICE VISIT Date of Service: 10/26/24 MR#: [id number] Acct: [id number] Name: DOUGLAS CALLAWAY Rep #: [id number] : 1955 Provider: NERI Berger Age/Sex: 69/M Location: [facility] [place].[facility] Status: Signed Assessment and Plan Assessment and Plan (1) CABRERA (obstructive sleep apnea): Status: Acute Plan: Previously diagnosed with obstructive sleep apnea, will obtain a split-night study. Lengthy discussion about the pathophysiology of obstructive sleep apnea. We discussed the risks of untreated sleep apnea as well as the benefits. The patient is agreeable with reinitiating therapy and conveys understanding to the importance of being compliant. Initial goal will be to wear PAP at least 4 hours nightly. Ultimately, it should be worn any time spent sleeping. I have encouraged the patient to call the office with any difficulties acclimating to PAP therapy. Follow up in the office in 3 months, at which time I anticipate the patient will be on PAP therapy for 4-6 weeks. Orders: Orders Split Night Sleep Study Today G47.33 - Obstructive sleep apnea (adult) (pediatric) HPI HPI Comments Details: This patient presents to the office today for initial consultation regarding concern for obstructive sleep apnea. He is ambulatory and currently on room air. The patient reports that he was originally diagnosed with obstructive sleep apnea in [place] approximately 15 years ago. The patient reports that he did utilize his machine for about 5 years. He was initially referred due to very severe snoring. He recalls that he stopped breathing 40 times an hour. He had no difficulty acclimating to machine and used it faithfully. However, when he moved to [place] in about 2011, his thought that the machine was really discussed teamly dirty and she threw it away. Since then, the patient is not feeling rested when he wakes up in the morning. He does snore. He occasionally naps. He does find himself nodding off. He has awakened himself by gasping for air. He reports dry mouth. He has about 2-3 episodes of nocturia nightly. 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 He is a former smoker, however he quit smoking over 40 years ago. He was seen by a car starter and had a pulmonary function test many years ago. He was never diagnosed with COPD and never prescribed an inhaler. Past medical family history significant for: Mother had pulmonary fibrosis and 7 years after receiving the diagnosis. Father of anal cancer and also had heart problems. He has 2 sisters, who both have good health. He has 2 children, his daughter has very good health. He states that his son is neuro divergent, autistic and bipolar. He has no difficulty with shortness of breath. He denies any cough. He denies sputum production or hemoptysis. He denies any wheezing, chest tightness, chest pain or palpitations. He also denies any fever, chills or body aches. Test results personally reviewed with the patient: Overnight oximetry completed on August 01, 2024. The patient did spend 67.6 minutes equal to or less than 88% with the lowest saturation recorded at 83.3%. It is noted that there is a pronounced sawtooth pattern on the data. STOP-BANG Assessment: 1. Do you snore? Y 2. Are you frequently tired during the day? Y 3. Have you been observed gasping or choking while asleep? Y 4. Do you have high blood pressure? Y 5. BMI - greater than 35kg/m2? N 6. Age - over 50 years old? Y 7. Neck Circumference - greater than 37 cm for females or 40 cm for males? Y 40 CM 8. Gender - male? Y Total STOP-BANG score = 7 which indicates HIGH risk for obstructive sleep apnea (yes to 3 or more questions = high risk of sleep apnea). 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 Normal [facility] MR/BMS.BPon 09-26-2024 MR/BMS.BP [facility] [address], [address] [place] [id number] OFFICE VISIT Date of Service: 09/26/24 MR#: [id number] Acct: [id number] Name: DOUGLAS CALLAWAY Jr. Rep #: [id number] : 1955 Provider: Dr. Nilay Hamlin se, DO Age/Sex: 69/M Location: [facility] [place].BP Status: Signed Intake Vital Signs 07/27/24 13:47 08/14/24 11:35 09/26/24 13:03 Height 5 ft 8 in 5 ft 8 in 5 ft 8 in Weight: 161 lb BMI 24.5 BP 167/71 H Blood Pressure Location Lt brachial Position Sitting Respiration 16 Pulse 65 Pulse Source Monitor BP Intake Visit Reasons: 2 M FU Accompanied by: Self Allergies No Known Allergies Allergy (Verified 09/26/24 13:06) Medications ???Medication ???Instructions ???Recorded ???Confirmed ???Type dorzolamide 22.3 mg-timolol 6.8 1 drp ophthalmic (eye) BID 09/28/19 09/26/24 History mg/mL eye drops (Cosopt) metformin 1,000 mg tablet 1,000 mg PO BID #0 tabs 09/04/21 09/26/24 Rx alendronate 70 mg tablet 70 mg PO QWEEK 09/17/22 09/26/24 History primidone 50 mg tablet 50 mg PO DAILY 09/24/23 09/26/24 History ferrous sulfate 325 mg (65 mg 325 mg PO DAILY 02/14/24 09/26/24 History iron) tablet (Roberto Carlos-Time) mecobalamin (vitamin B12) 1,000 1,000 mcg PO DAILY 02/14/24 09/26/24 History mcg chewable tablet dapagliflozin propanediol 10 mg 10 mg PO QDAY 04/20/24 09/26/24 History tablet (Farxiga) rosuvastatin 10 mg tablet 10 mg PO DAILY #90 tabs 07/05/24 09/26/24 Rx aspirin 81 mg tablet,delayed 81 mg PO QDAY 08/14/24 09/26/24 History release (Adult Low Dose Aspirin) calcium 600 mg (as 1 cap PO DAILY 08/14/24 09/26/24 History carbonate)-vitamin D3 12.5 mcg (500 unit) capsule losartan 50 mg tablet 50 mg PO DAILY #30 tabs 08/14/24 09/26/24 Rx doxepin 10 mg capsule 10 mg PO QHS PRN sleep #30 caps 09/26/24 09/26/24 Rx duloxetine 60 mg capsule,delayed 60 mg PO DAILY 90 days #90 caps 09/26/24 09/26/24 Rx release lamotrigine 200 mg tablet 200 mg PO DAILY 90 days #90 tabs 09/26/24 09/26/24 Rx Have you fallen in the past year?: Yes PFSH Medical History Exocrine pancreatic insufficiency Gastritis Bile leak CPAP (continuous positive airway pressure) dependence Acute cholecystitis due to biliary calculus Common bile duct dilatation Irritable bowel Syncope Irregular heartbeat Acute gallstone pancreatitis Wears glasses Cancer Diabetes Gout Hepatitis Gastric reflux Former smoker History of echocardiogram History of stress test Hypertension Cardiology follow-up encounter Gastroparesis Squamous cell carcinoma Atherosclerosis of coronary artery of [place] heart without angina pectoris Hepatitis A Elevated LFTs Hyperlipidemia Type 2 diabetes mellitus without complication Bipolar II disorder Insomnia Essential hypertension CVA (cerebral vascular accident) (2003) TIA (transient ischemic attack) (2003) Diarrhea Depression GERD (gastroesophageal reflux disease) Sleep apnea Surgical History History of right shoulder replacement History of ERCP History of surgery on arm S/P laparoscopic cholecystectomy History of cardiac catheterization H/O coronary artery bypass surgery (12/15/19) History of left heart catheterization (11/20/19) History of colonoscopy (2016) History of esophagogastroduodenoscopy (EGD) History of wisdom tooth extraction History of tonsillectomy History of cataract extraction Family History Father Colon cancer CAD (coronary artery disease) Mother Gastric ulcer Pacemaker Pulmonary fibrosis Heart disease Social History (Updated 08/14/24 @ 11:48 by Lesley Perdomo) Smoking Status: Former smoker how long ago did patient quit smokin + years ago alcohol intake: current alcohol intake frequency: a few times a month substance use type: does not use caffeine: Yes Type: coffee Number of servings: 1 HPI History of Present Illness History provided by: patient HPI: Douglas Callaway is a 69 year old male who presents today for follow up evaluation. Patient reports that he has been pretty good. Does admit that for a little while he has been feeling very sedated. Denies feeling depressed at all, but maybe had some diminished motivation. Has some thought that the increased dose of lamotrigine may be exacerbating symptoms. Is interested in returning back to 200 mg daily dose of lamotrigine. Continues to have intermittent interpersonal conflict with his son whom lives with him. Does feel like mood cheek he has been very stable. Has been sleeping largely well with the use of doxepin. Supposed to meet with car starter in October for assessment of sleep apnea. Tremor has been largely stable. Not having significant s (more content not included)... Normal [facility] Cardiology Visit Reporton Cardiology Visit Report [facility] [address] [place] [address] OFFICE VISIT Date of Service: 08/14/24 MR#: [id number] Acct: [id number] Name: DOUGLAS CALLAWAY Jr. Rep #: [id number] : 1955 Provider: NERI bateman Age/Sex: 69/M Location: [facility] [place] Status: Signed HPI HPI History of Present Illness Details: This is a 69-year-old man who presents to the office today for a cardiovascular outpatient visit. He has a history of hypertension and recently diagnosed triple-vessel disease for which he was sent for and underwent coronary artery bypass surgery in December 2019. He had a left internal mammary artery to the left anterior descending artery, saphenous vein graft to the first diagonal vessel, saphenous vein graft to the second diagonal vessel. His repeat echocardiogram demonstrated an ejection fraction of 60% with stage I diastolic dysfunction. He has had a series of falls and tells me that he has been evaluated by neurology for the etiology of the above. He thinks that it is more of balance problems rather than losing consciousness. He had a loop recorder placed in November of this year. He denies chest, arm, jaw, or neck discomfort. He denies palpitations. He denies bilateral lower extremity edema. He denies claudication. He states shortness of breath with activity such as carrying something up the stairs. This is worse since last visit. This is intermittent. This was not noted prior to CABG. He denies, shortness of breath at rest, orthopnea, or PND. He denies chronic cough. He denies significant, sudden weight gain. He denies lightheadedness, dizziness, near- syncope, or syncope. He denies blood in urine, blood in stool, or epistaxis. He denies fever with chills. He denies myalgia. He states fatigue. His exercise level has remained stable. Intake Vital Signs 02/14/24 11:21 07/27/24 13:47 08/14/24 11:35 Height 5 ft 8 in 5 ft 8 in 5 ft 8 in Weight: 163 lb BMI 24.7 BP 159/76 H Blood Pressure Location Lt brachial Position Sitting Respiration 16 Pulse 46 L Pulse Source NIBP Intake Visit Reasons: 6 M FU Dragline Operator Required: No Is patient in pain?: No Allergies No Known Allergies Allergy (Verified 08/14/24 11:40) Medications ???Medication ???Instructions ???Recorded ???Confirmed ???Type dorzolamide 22.3 mg-timolol 6.8 1 drp ophthalmic (eye) BID 09/28/19 08/14/24 History mg/mL eye drops (Cosopt) metformin 1,000 mg tablet 1,000 mg PO BID #0 tabs 09/04/21 08/14/24 Rx alendronate 70 mg tablet 70 mg PO QWEEK 09/17/22 08/14/24 History primidone 50 mg tablet 50 mg PO DAILY 09/24/23 08/14/24 History ferrous sulfate 325 mg (65 mg 325 mg PO DAILY 02/14/24 08/14/24 History iron) tablet (Roberto Carlos-Time) mecobalamin (vitamin B12) 1,000 1,000 mcg PO DAILY 02/14/24 08/14/24 History mcg chewable tablet dapagliflozin propanediol 10 mg 10 mg PO QDAY 04/20/24 08/14/24 History tablet (Farxiga) rosuvastatin 10 mg tablet 10 mg PO DAILY #90 tabs 07/05/24 08/14/24 Rx duloxetine 60 mg capsule,delayed 60 mg PO DAILY 90 days #90 caps 07/27/24 08/14/24 Rx release lamotrigine 200 mg tablet 300 mg (1.5 x 200 mg) PO DAILY 90 07/27/24 08/14/24 Rx days #135 tabs aspirin 81 mg tablet,delayed 81 mg PO QDAY 08/14/24 08/14/24 History release (Adult Low Dose Aspirin) calcium 600 mg (as 1 cap PO DAILY 08/14/24 08/14/24 History carbonate)-vitamin D3 12.5 mcg (500 unit) capsule losartan 50 mg tablet 50 mg PO DAILY #30 tabs 08/14/24 08/14/24 Rx Ejection fraction %: 60 Have you fallen in the past year?: Yes (X 6 with right leg weakness) PFSH Medical History Exocrine pancreatic insufficiency Gastritis Bile leak CPAP (continuous positive airway pressure) dependence Acute cholecystitis due to biliary calculus Common bile duct dilatation Irritable bowel Syncope Irregular heartbeat Acute gallstone pancreatitis Wears glasses Cancer Diabetes Gout Hepatitis Gastric reflux Former smoker History of echocardiogram History of stress test Hypertension Cardiology follow-up encounter Gastroparesis Squamous cell carcinoma Atherosclerosis of coronary artery of [place] heart without angina pectoris Hepatitis A Elevated LFTs Hyperlipidemia Type 2 diabetes mellitus without complication Bipolar II disorder Insomnia Essential hypertension CVA (cerebral vascular accident) (2003) TIA (transient ischemic attack) (2003) Diarrhea Depression GERD (gastroesophageal reflux disease) Sleep apnea Surgical History History of right shoulder replacement History of ERCP History of surgery on arm S/P laparoscopic cholecystectomy History of cardiac catheterization H/O coronary artery bypass san (more content not included)... Normal [facility] MR/BMS.BPon 07-27-2024 MR/BMS.BP [address], [address] [place] [address] OFFICE VISIT Date of Service: 07/27/24 MR#: [id number] Acct: [id number] Name: CESIADOUGLAS Jr. Rep #: [id number] : 1955 Provider: Dr. Nilay Hamlin se, DO Age/Sex: 69/M Location: [facility] [place].BP Status: Signed Intake Vital Signs 04/20/24 11:08 07/27/24 13:47 Height 5 ft 8 in 5 ft 8 in BP 143/74 H Blood Pressure Location Rt brachial Position Sitting Pulse 49 L Pulse Source Monitor BP Intake Visit Reasons: 3 M FU Allergies No Known Allergies Allergy (Verified 04/20/24 11:10) Have you fallen in the past year?: Yes PFSH Medical History Exocrine pancreatic insufficiency Gastritis Bile leak CPAP (continuous positive airway pressure) dependence Acute cholecystitis due to biliary calculus Common bile duct dilatation Irritable bowel Syncope Irregular heartbeat Acute gallstone pancreatitis Wears glasses Cancer Diabetes Gout Hepatitis Gastric reflux Former smoker History of echocardiogram History of stress test Hypertension Cardiology follow-up encounter Gastroparesis Squamous cell carcinoma Atherosclerosis of coronary artery of [place] heart without angina pectoris Hepatitis A Elevated LFTs Hyperlipidemia Type 2 diabetes mellitus without complication Bipolar II disorder Insomnia Essential hypertension CVA (cerebral vascular accident) (2003) TIA (transient ischemic attack) (2003) Diarrhea Depression GERD (gastroesophageal reflux disease) Sleep apnea Surgical History History of right shoulder replacement History of ERCP History of surgery on arm S/P laparoscopic cholecystectomy History of cardiac catheterization H/O coronary artery bypass surgery (12/15/19) History of left heart catheterization (11/20/19) History of colonoscopy (2016) History of esophagogastroduodenoscopy (EGD) History of wisdom tooth extraction History of tonsillectomy History of cataract extraction Family History Father Colon cancer CAD (coronary artery disease) Mother Gastric ulcer Pacemaker Pulmonary fibrosis Heart disease Social History Smoking Status: Former smoker alcohol intake: current details: beer and wine irregular HPI History of Present Illness History provided by: patient HPI: Douglas Callaway is a 69 year old male who presents today for follow up evaluation. Patient reports that he has been doing really good. Denies any depressive symptoms since April of this year. Has started growing a moustache in an attempt to hide his teeth as he is embarrassed by them. Sleep apnea has been affecting ability to sleep well, so believes his PCP will work this up further. Feels like his sleep is interrupted which leads him to be tired. Did have CPAP years ago but has not used in years. Appetite has been largely stable. Has maybe gained 2 lbs in recent past. Reports that he feels like medication is working largely well without new/different side effects. Recently drove to [place] to see his friend. Denies SI/HI or AVH. Is currently still taking primidone for tremor and is getting good response. Review of Systems Constitutional Denies: fever(s), chills, change in weight or fatigue Eyes Denies: change in vision or blurry vision Ears, Nose, Mouth, Throat Denies: throat pain, neck pain or change in hearing Cardiovascular Denies: chest pain, palpitations or dyspnea Respiratory Denies: dyspnea, cough or wheezing Gastrointestinal Denies: abdominal pain, nausea, vomiting, diarrhea or constipation Genitourinary Denies: dysuria or urinary frequency Musculoskeletal Reports: extremity pain and muscle weakness; Denies: back pain, neck pain or joint pain Integumentary/Breast Denies: rash or new lesions Neurological Reports: lack of coordination (had been doing better, but somewhat worse again in recent past); Denies: headache(s), dizziness or confusion Endocrine Denies: fatigue or excessive sweating Hematologic/Lymphatic Denies: easy bruising or easy bleeding Allergic/Immunologic Denies: wheezing Exam Mental Status Exam - Psych Appearance casually dressed and no apparent distress Attitude cooperative and calm Activity/Motor Behavior MSE activity/motor behavior finding no adventitious movements Speech regular rate, regular volume and regular prosody Mood other (pretty good) Affect congruent Thought Process linear, logical and coherent Thought Content no delusions and no hallucinations Suicidal Ideation none Homicidal Ideation none Attention intact Concentration intact Sensorium/Orientation awake, alert and oriented (more content not included)... Normal [facility] CBC W/Diff, Automatedon 11-2 0-2023 Absolute Lymph 2.07 X10 3/uL Normal 0.83-4.51 [facility] Comment on above: Performed By: #### L 501.9985, L502.0250, L501.0900, L500.4100, L506.1001, L501.5101, L100.0100, L500.4050 #### [facility] [address] [place], [address] Absolute Neut 8.5 X10 3/uL High 2.0-7.7 [facility] Comment on above: Performed By: #### L 501.9985, L502.0250, L501.0900, L500.4100, L506.1001, L501.5101, L100.0100, L500.4050 #### [facility] [address] [place], [address] Basophils/100 WBC (Bld) 0.6 % Normal 0-1 [facility] Comment on above: Performed By: #### L 501.9985, L502.0250, L501.0900, L500.4100, L506.1001, L501.5101, L100.0100, L500.4050 #### [facility] [address] [place], [address] Eosinophils/100 WBC (Bld) 1.7 % Normal 0-5 [facility] Comment on above: Performed By: #### L 501.9985, L502.0250, L501.0900, L500.4100, L506.1001, L501.5101, L100.0100, L500.4050 #### [facility] [address] [place], [address] Erythrocyte distribution width (RBC) [Ratio] 12.8 % Normal 11.6-14.6 [facility] Comment on above: Performed By: #### L 501.9985, L502.0250, L501.0900, L500.4100, L506.1001, L501.5101, L100.0100, L500.4050 #### [facility] [address] [place], [address] Hematocrit (Bld) [Volume fraction] 44.6 % Normal 40-54 [facility] Comment on above: Performed By: #### L 501.9985, L502.0250, L501.0900, L500.4100, L506.1001, L501.5101, L100.0100, L500.4050 #### [facility] [address] [place], [address] Hemoglobin (Bld) [Mass/Vol] 14.2 g/dL Normal 13.0-16.5 [facility] Comment on above: Performed By: #### L 501.9985, L502.0250, L501.0900, L500.4100, L506.1001, L501.5101, L100.0100, L500.4050 #### [facility] [address] [place], [address] IG% 1.000 High 0.0-0.9 [facility] Comment on above: Result Comment: IG% - Immature Granulocytes (promyelocytes, myelocytes and metamyelocytes) > 1% indicates that a LEFT SHIFT is Present. Performed By: #### L 501.9985, L502.0250, L501.0900, L500.4100, L506.1001, L501.5101, L100.0100, L500.4050 #### [facility] [address] [place], [address] Lymphocytes/100 WBC (Bld) 17.2 % Low 19-41 [facility] Comment on above: Performed By: #### L 501.9985, L502.0250, L501.0900, L500.4100, L506.1001, L501.5101, L100.0100, L500.4050 #### [facility] [address] [place], [address] MCH (RBC) [Entitic mass] 31.8 pg Normal 27.0-32.0 [facility] Comment on above: Performed By: #### L 501.9985, L502.0250, L501.0900, L500.4100, L506.1001, L501.5101, L100.0100, L500.4050 #### [facility] [address] [place], [address] MCHC (RBC) [Mass/Vol] 31.8 g/dL Low 32-36 [facility] Comment on above: Performed By: #### L 501.9985, L502.0250, L501.0900, L500.4100, L506.1001, L501.5101, L100.0100, L500.4050 #### [facility] [address] [place], [address] MCV (RBC) [Entitic vol] 99.8 fL High 80-94 [facility] Comment on above: Performed By: #### L 501.9985, L502.0250, L501.0900, L500.4100, L506.1001, L501.5101, L100.0100, L500.4050 #### [facility] [address] [place], [address] Monocytes/100 WBC (Bld) 9.1 % Normal 0-10 [facility] Comment on above: Performed By: #### L 501.9985, L502.0250, L501.0900, L500.4100, L506.1001, L501.5101, L100.0100, L500.4050 #### [facility] [address] [place], [address] Neutrophils/100 WBC (Bld) 70.4 % High 47-70 [facility] Comment on above: Performed By: #### L 501.9985, L502.0250, L501.0900, L500.4100, L506.1001, L501.5101, L100.0100, L500.4050 #### [facility] [address] [place], [address] Nucleated RBC (Bld) [#/Vol] 0 10*3/uL Normal 0-5 [facility] Comment on above: Performed By: #### L 501.9985, L502.0250, L501.0900, L500.4100, L506.1001, L501.5101, L100.0100, L500.4050 #### [facility] [address] [place], [address] Platelet mean volume (Bld) [Entitic vol] 10.7 fL Normal 6.2-12.0 [facility] Comment on above: Performed By: #### L 501.9985, L502.0250, L501.0900, L500.4100, L506.1001, L501.5101, L100.0100, L500.4050 #### [facility] [address] [place], [address] Platelets (Bld) [#/Vol] 212 10*3/uL Normal 150-450 [facility] Comment on above: Performed By: #### L 501.9985, L502.0250, L501.0900, L500.4100, L506.1001, L501.5101, L100.0100, L500.4050 #### [facility] [address] [place], [address] RBC (Bld) [#/Vol] 4.47 10*6/uL Low 4.6-6.2 [facility] Comment on above: Performed By: #### L 501.9985, L502.0250, L501.0900, L500.4100, L506.1001, L501.5101, L100.0100, L500.4050 #### [facility] [address] [place], [address] RDW SD 46.1 fl High 35.1-43.9 [facility] Comment on above: Performed By: #### L 501.9985, L502.0250, L501.0900, L500.4100, L506.1001, L501.5101, L100.0100, L500.4050 #### [facility] [address] [place], [address] WBC (Bld) [#/Vol] 12.0 10*3/uL High 4.4-11.0 [facility] Comment on above: Performed By: #### L 501.9985, L502.0250, L501.0900, L500.4100, L506.1001, L501.5101, L100.0100, L500.4050 #### [facility] [address] [place], [address] Comprehensive Metabolic Prof ilon 07-26-2024 Albumin [Mass/Vol] 3.0 g/dL Low 3.2-5.0 [facility] Comment on above: Performed By: #### L 501.9985, L502.0250, L501.0900, L500.4100, L506.1001, L501.5101, L100.0100, L500.4050 #### [facility] [address] [place], [place], [id number] Albumin/Globulin [Mass ratio] 0.9 {ratio} Normal 0.9-2.4 [facility] Comment on above: Performed By: #### L 501.9985, L502.0250, L501.0900, L500.4100, L506.1001, L501.5101, L100.0100, L500.4050 #### [facility] [address] [place], [address] ALK P 141 U/L High 45-117 [facility] Comment on above: Performed By: #### L 501.9985, L502.0250, L501.0900, L500.4100, L506.1001, L501.5101, L100.0100, L500.4050 #### [facility] [address] [place], [place], [id number] ALT [Catalytic activity/Vol] 50 U/L Normal 16-61 [facility] Comment on above: Performed By: #### L 501.9985, L502.0250, L501.0900, L500.4100, L506.1001, L501.5101, L100.0100, L500.4050 #### [facility] [address] [place], [address] AST [Catalytic activity/Vol] 42 U/L High 15-37 [facility] Comment on above: Performed By: #### L 501.9985, L502.0250, L501.0900, L500.4100, L506.1001, L501.5101, L100.0100, L500.4050 #### [facility] [address] [place], [address] Bilirubin [Mass/Vol] 0.40 mg/dL Normal 0.20-1.00 [facility] Comment on above: Result Comment: For patients on eltrombopag therapy, use of Dimension [place] TBIL is not recommended. Performed By: #### L 501.9985, L502.0250, L501.0900, L500.4100, L506.1001, L501.5101, L100.0100, L500.4050 #### [facility] [address] [place], [address] BUN/CRE 19.2 RATIO Normal 10-20 [facility] Comment on above: Performed By: #### L 501.9985, L502.0250, L501.0900, L500.4100, L506.1001, L501.5101, L100.0100, L500.4050 #### [facility] [address] [place], [address] CA,Total 10.2 mg/dL High 8.5-10.1 [facility] Comment on above: Performed By: #### L 501.9985, L502.0250, L501.0900, L500.4100, L506.1001, L501.5101, L100.0100, L500.4050 #### [facility] [address] [place], [address] Chloride [Moles/Vol] 106 mmol/L Normal 98-107 [facility] Comment on above: Performed By: #### L 501.9985, L502.0250, L501.0900, L500.4100, L506.1001, L501.5101, L100.0100, L500.4050 #### [facility] [address] [place], [address] CO2 [Moles/Vol] 26.0 mmol/L Normal 21.0-32.0 [facility] Comment on above: Performed By: #### L 501.9985, L502.0250, L501.0900, L500.4100, L506.1001, L501.5101, L100.0100, L500.4050 #### [facility] [address] [place], [address] Creatinine [Mass/Vol] 1.51 mg/dL High 0.70-1.30 [facility] Comment on above: Result Comment: The validity of the calculated GFR GFRAA in patients over 70 years has not been determined. Clinical correlation is essential. Performed By: #### L 501.9985, L502.0250, L501.0900, L500.4100, L506.1001, L501.5101, L100.0100, L500.4050 #### [facility] [address] [place], [address] EST GFR - AA 59 mL/min Low >60 [facility] Comment on above: Result Comment: Afri can [place] GFR Calc Performed By: #### L 501.9985, L502.0250, L501.0900, L500.4100, L506.1001, L501.5101, L100.0100, L500.4050 #### [facility] [address] [place], [address] GAP 8 Normal 5-15 [facility] Comment on above: Performed By: #### L 501.9985, L502.0250, L501.0900, L500.4100, L506.1001, L501.5101, L100.0100, L500.4050 #### [facility] [address] [place], [address] GFR/1.73 sq M.predicted among non-blacks MDRD (S/P/Bld) [Vol rate/Area] 49 mL/min/{1.73_m2} Low >60 [facility] Comment on above: Result Comment: Non- GFR Calc Performed By: #### L 501.9985, L502.0250, L501.0900, L500.4100, L506.1001, L501.5101, L100.0100, L500.4050 #### [facility] [address] [place], [address] Globulin (S) [Mass/Vol] 3.4 g/dL Normal 2.2-4.2 [facility] Comment on above: Performed By: #### L 501.9985, L502.0250, L501.0900, L500.4100, L506.1001, L501.5101, L100.0100, L500.4050 #### [facility] [address] [place], [address] Glucose [Mass/Vol] 121 mg/dL High 74-106 [facility] Comment on above: Result Comment: Fast ing Glucose result from 100 to 125 mg/dL suggests IMPAIRED HOMEOSTASIS per A.D.A. criteria. Performed By: #### L 501.9985, L502.0250, L501.0900, L500.4100, L506.1001, L501.5101, L100.0100, L500.4050 #### [facility] [address] [place], [address] Potassium [Moles/Vol] 4.2 mmol/L Normal 3.5-5.1 [facility] Comment on above: Performed By: #### L 501.9985, L502.0250, L501.0900, L500.4100, L506.1001, L501.5101, L100.0100, L500.4050 #### [facility] [address] [place], [address] Sodium [Moles/Vol] 140 mmol/L Normal 136-145 [facility] Comment on above: Performed By: #### L 501.9985, L502.0250, L501.0900, L500.4100, L506.1001, L501.5101, L100.0100, L500.4050 #### [facility] [address] [place], [address] T PROT 6.4 g/dL Normal 6.4-8.2 [facility] Comment on above: Performed By: #### L 501.9985, L502.0250, L501.0900, L500.4100, L506.1001, L501.5101, L100.0100, L500.4050 #### [facility] [address] [place], [address] Urea nitrogen [Mass/Vol] 29 mg/dL High 7-18 [facility] Comment on above: Performed By: #### L 501.9985, L502.0250, L501.0900, L500.4100, L506.1001, L501.5101, L100.0100, L500.4050 #### [facility] [address] [place], [address] Hemoglobin A1con 07-26-2024 HbA1c (Bld) [Mass fraction] 5.9 % High 3.8-5.6 [facility] Comment on above: Result Comment: Norm al < 5.7 % Prediabetic 5.7 - 6.4 % Diabetic >or= 6.5 % Please note range changes. Performed By: #### L 501.9985, L502.0250, L501.0900, L500.4100, L506.1001, L501.5101, L100.0100, L500.4050 #### [facility] [address] [place], [address] Lipid Profileon 07-26-2024 Cholesterol [Mass/Vol] 118 mg/dL Normal 200 [facility] Comment on above: Result Comment: <200 mg/dL Desirable 200-240 mg/dL Borderline >240 mg/dL High Risk Performed By: #### L 501.9985, L502.0250, L501.0900, L500.4100, L506.1001, L501.5101, L100.0100, L500.4050 #### [facility] [address] [place], [address] Cholesterol in HDL [Mass/Vol] 57 mg/dL Normal [facility] Comment on above: Result Comment: The drugs N-Acetylcysteine and Metamizole may falsely depress this assay. Reference Range HDL <40 mg/dL Low HDL Cholesterol HDL >or= 60 mg/dL High HDL Cholesterol Performed By: #### L 501.9985, L502.0250, L501.0900, L500.4100, L506.1001, L501.5101, L100.0100, L500.4050 #### [facility] [address] [place], [address] Cholesterol in LDL [Mass/Vol] 24 mg/dL Normal 0-130 [facility] Comment on above: Performed By: #### L 501.9985, L502.0250, L501.0900, L500.4100, L506.1001, L501.5101, L100.0100, L500.4050 #### [facility] [address] [place], [address] Cholesterol in VLDL [Mass/Vol] 37 mg/dL Normal 5-40 [facility] Comment on above: Performed By: #### L 501.9985, L502.0250, L501.0900, L500.4100, L506.1001, L501.5101, L100.0100, L500.4050 #### [facility] [address] [place], [place], [id number] Triglyceride [Mass/Vol] 186 mg/dL Normal [facility] Comment on above: Result Comment: The drugs N-Acetylcysteine and Metamizole may falsely depress this assay. Serum Triglycerides Reference Interval Normal <150 mg/dL Borderline high 150 - 199 mg/dL High 200 - 499 mg/dL Very High > or = 500 mg/dL Performed By: #### L 501.9985, L502.0250, L501.0900, L500.4100, L506.1001, L501.5101, L100.0100, L500.4050 #### [facility] [address] [place], [address] T4 Free Directon 07-26-2024 T4 FREE DIRECT 0.79 ng/dL Normal 0.76-1.46 [facility] Comment on above: Performed By: #### L 501.9985, L502.0250, L501.0900, L500.4100, L506.1001, L501.5101, L100.0100, L500.4050 #### [facility] [address] [place], [place], [id number] Thyroid Stim Hormone (TSH)on 07-26-2024 TSH 4.550 uIU/mL High 0.358-3.740 [facility] Comment on above: Performed By: #### L 501.9985, L502.0250, L501.0900, L500.4100, L506.1001, L501.5101, L100.0100, L500.4050 #### [facility] [address] [place], [address] Vitamin B12on 07-26-2024 Cobalamin (Vitamin B12) [Mass/Vol] 436 pg/mL Normal 211-911 [facility] Comment on above: Performed By: #### L 501.9985, L502.0250, L501.0900, L500.4100, L506.1001, L501.5101, L100.0100, L500.4050 #### [facility] [address] [place], [address] Vitamin D,25 Hydroxyon 07-26 Vitamin D 25-OH 27.1 ng/mL Normal [facility] Comment on above: Result Comment: Ladi min D 25(OH) Status Range Deficiency <20 ng/mL (50nmol/L) Insufficiency 20 - 30 ng/mL (50 - 75 nmol/L) Sufficiency 30 - 100 ng/mL (75 - 250 nmol/L) Toxicity >100 ng/mL (>250 nmol/L) Performed By: #### L 501.9985, L502.0250, L501.0900, L500.4100, L506.1001, L501.5101, L100.0100, L500.4050 #### [facility] [address] [place], [place], [address] MR/BMS.BPon 04-20-2024 MR/BMS.BP [address], [address] [address] OFFICE VISIT Date of Service: 04/20/24 MR#: [id number] Acct: [id number] Name: CESIADOUGLAS Jr. Rep #: [id number] : 1955 Provider: Dr. Nilay Hamlin se DO Age/Sex: 69/M Location: [facility] [place].BP Status: Signed Intake Vital Signs 01/19/24 11:07 02/14/24 11:21 04/20/24 10:57 04/20/24 11:08 Height 5 ft 8 in 5 ft 8 in 5 ft 8 in 5 ft 8 in Weight: 164 lb BMI 24.9 BP 137/82 H 143/74 H Blood Pressure Location Lt brachial Rt brachial Position Sitting Sitting Respiration 18 Pulse 52 L 49 L Pulse Source Monitor Monitor Pulse Oximetry (%) 99 BP Intake Visit Reasons: 3 M FU Dragline Operator Required: No Accompanied by: Self Is patient in pain?: No Allergies No Known Allergies Allergy (Verified 04/20/24 11:10) Medications ???Medication ???Instructions ???Recorded ???Confirmed ???Type dorzolamide 22.3 mg-timolol 6.8 1 drp ophthalmic (eye) BID 09/28/19 04/20/24 History mg/mL eye drops (Cosopt) metformin 1,000 mg tablet 1,000 mg PO BID #0 tabs 09/04/21 04/20/24 Rx alendronate 70 mg tablet 70 mg PO QWEEK 09/17/22 04/20/24 History aspirin 325 mg tablet 81 mg PO DAILY 09/17/22 04/20/24 History losartan 50 mg tablet 50 mg PO DAILY 07/15/23 04/20/24 History rosuvastatin 10 mg tablet 10 mg PO DAILY 07/15/23 04/20/24 History primidone 50 mg tablet 50 mg PO DAILY 09/24/23 04/20/24 History ferrous sulfate 325 mg (65 mg 325 mg PO DAILY 02/14/24 04/20/24 History iron) tablet (Roberto Carlos-Time) mecobalamin (vitamin B12) 1,000 1,000 mcg PO DAILY 02/14/24 04/20/24 History mcg chewable tablet metoprolol tartrate 50 mg tablet 25 mg (1/2 x 50 mg) PO BID #180 02/14/24 04/20/24 Rx tabs dapagliflozin propanediol 10 mg 10 mg PO QDAY 04/20/24 04/20/24 History tablet (Farxiga) duloxetine 60 mg capsule,delayed 60 mg PO DAILY 90 days #90 caps 04/20/24 04/20/24 Rx release lamotrigine 200 mg tablet 300 mg (1.5 x 200 mg) PO DAILY 90 04/20/24 04/20/24 Rx days #135 tabs Have you fallen in the past year?: No Current gender identity: male Nurse's Note: Presents to the office today for follow up. [facility] Medical History Exocrine pancreatic insufficiency Gastritis Bile leak CPAP (continuous positive airway pressure) dependence Acute cholecystitis due to biliary calculus Common bile duct dilatation Irritable bowel Syncope Irregular heartbeat Acute gallstone pancreatitis Wears glasses Cancer Diabetes Gout Hepatitis Gastric reflux Former smoker History of echocardiogram History of stress test Hypertension Cardiology follow-up encounter Gastroparesis Squamous cell carcinoma Atherosclerosis of coronary artery of [place] heart without angina pectoris Hepatitis A Elevated LFTs Hyperlipidemia Type 2 diabetes mellitus without complication Bipolar II disorder Insomnia Essential hypertension CVA (cerebral vascular accident) (2003) TIA (transient ischemic attack) (2003) Diarrhea Depression GERD (gastroesophageal reflux disease) Sleep apnea Surgical History History of right shoulder replacement History of ERCP History of surgery on arm S/P laparoscopic cholecystectomy History of cardiac catheterization H/O coronary artery bypass surgery (12/15/19) History of left heart catheterization (11/20/19) History of colonoscopy (2016) History of esophagogastroduodenoscopy (EGD) History of wisdom tooth extraction History of tonsillectomy History of cataract extraction Family History Father Colon cancer CAD (coronary artery disease) Mother Gastric ulcer Pacemaker Pulmonary fibrosis Heart disease Social History Smoking Status: Former smoker alcohol intake: current details: beer and wine irregular HPI History of Present Illness History provided by: patient HPI: Douglas Callaway is a 69 year old male who presents today for follow up evaluation. Patient reports that he has been doing good. This last weekend went to [place] to see some old friends. Physically has been doing somewhat better in recent past, especially in terms of not needing to use a cane for mobility. Denies any recent falls. Mood has been somewhat fair. Does admit to having a mildly manic episode at the beginning of March. He can't remember much of the details. States that 3 days had gone by before he even noticed symptoms. Doesn't describe feeling agitated, and more so an elevated mood. Noticed this as he was about to buy significant amounts of DVDs/CDs and caught self nearly being impulsive. Lasted about 4-5 days total. Was sleeping regularly during this period. Son does (more content not included)... Normal [facility] CBC W/Diff, Automatedon 07-2 -2023 Absolute Lymph 1.71 X10 3/uL Normal 0.83-4.51 [facility] Comment on above: Performed By: #### L 506.1000, L503.6550, L100.0100, L500.4050, L500.4100, L503.6030, L501.9985, L502.0250, L400.0001 #### [facility] [address] [place], [address] Absolute Neut 6.6 X10 3/uL Normal 2.0-7.7 [facility] Comment on above: Performed By: #### L 506.1000, L503.6550, L100.0100, L500.4050, L500.4100, L503.6030, L501.9985, L502.0250, L400.0001 #### [facility] [address] [place], [address] Basophils/100 WBC (Bld) 0.3 % Normal 0-1 [facility] Comment on above: Performed By: #### L 506.1000, L503.6550, L100.0100, L500.4050, L500.4100, L503.6030, L501.9985, L502.0250, L400.0001 #### [facility] [address] [place], [address] Eosinophils/100 WBC (Bld) 2.1 % Normal 0-5 [facility] Comment on above: Performed By: #### L 506.1000, L503.6550, L100.0100, L500.4050, L500.4100, L503.6030, L501.9985, L502.0250, L400.0001 #### [facility] [address] [place], [address] Erythrocyte distribution width (RBC) [Ratio] 13.0 % Normal 11.6-14.6 [facility] Comment on above: Performed By: #### L 506.1000, L503.6550, L100.0100, L500.4050, L500.4100, L503.6030, L501.9985, L502.0250, L400.0001 #### [facility] [address] [place], [address] Hematocrit (Bld) [Volume fraction] 47.4 % Normal 40-54 [facility] Comment on above: Performed By: #### L 506.1000, L503.6550, L100.0100, L500.4050, L500.4100, L503.6030, L501.9985, L502.0250, L400.0001 #### [facility] [address] [place], [address] Hemoglobin (Bld) [Mass/Vol] 15.1 g/dL Normal 13.0-16.5 [facility] Comment on above: Performed By: #### L 506.1000, L503.6550, L100.0100, L500.4050, L500.4100, L503.6030, L501.9985, L502.0250, L400.0001 #### [facility] [address] [place], [address] IG% 0.700 Normal 0.0-0.9 [facility] Comment on above: Result Comment: IG% - Immature Granulocytes (promyelocytes, myelocytes and metamyelocytes) > 1% indicates that a LEFT SHIFT is Present. Performed By: #### L 506.1000, L503.6550, L100.0100, L500.4050, L500.4100, L503.6030, L501.9985, L502.0250, L400.0001 #### [facility] [address] [place], [address] Lymphocytes/100 WBC (Bld) 18.2 % Low 19-41 [facility] Comment on above: Performed By: #### L 506.1000, L503.6550, L100.0100, L500.4050, L500.4100, L503.6030, L501.9985, L502.0250, L400.0001 #### [facility] [address] [place], [address] MCH (RBC) [Entitic mass] 31.7 pg Normal 27.0-32.0 [facility] Comment on above: Performed By: #### L 506.1000, L503.6550, L100.0100, L500.4050, L500.4100, L503.6030, L501.9985, L502.0250, L400.0001 #### [facility] [address] [place], [address] MCHC (RBC) [Mass/Vol] 31.9 g/dL Low 32-36 [facility] Comment on above: Performed By: #### L 506.1000, L503.6550, L100.0100, L500.4050, L500.4100, L503.6030, L501.9985, L502.0250, L400.0001 #### [facility] [address] [place], [address] MCV (RBC) [Entitic vol] 99.4 fL High 80-94 [facility] Comment on above: Performed By: #### L 506.1000, L503.6550, L100.0100, L500.4050, L500.4100, L503.6030, L501.9985, L502.0250, L400.0001 #### [facility] [address] [place], [address] Monocytes/100 WBC (Bld) 8.8 % Normal 0-10 [facility] Comment on above: Performed By: #### L 506.1000, L503.6550, L100.0100, L500.4050, L500.4100, L503.6030, L501.9985, L502.0250, L400.0001 #### [facility] [address] [place], [address] Neutrophils/100 WBC (Bld) 69.9 % Normal 47-70 [facility] Comment on above: Performed By: #### L 506.1000, L503.6550, L100.0100, L500.4050, L500.4100, L503.6030, L501.9985, L502.0250, L400.0001 #### [facility] [address] [place], [address] Nucleated RBC (Bld) [#/Vol] 0 10*3/uL Normal 0-5 [facility] Comment on above: Performed By: #### L 506.1000, L503.6550, L100.0100, L500.4050, L500.4100, L503.6030, L501.9985, L502.0250, L400.0001 #### [facility] [address] [place], [address] Platelet mean volume (Bld) [Entitic vol] 10.6 fL Normal 6.2-12.0 [facility] Comment on above: Performed By: #### L 506.1000, L503.6550, L100.0100, L500.4050, L500.4100, L503.6030, L501.9985, L502.0250, L400.0001 #### [facility] [address] [place], [address] Platelets (Bld) [#/Vol] 213 10*3/uL Normal 150-450 [facility] Comment on above: Performed By: #### L 506.1000, L503.6550, L100.0100, L500.4050, L500.4100, L503.6030, L501.9985, L502.0250, L400.0001 #### [facility] [address] [place], [address] RBC (Bld) [#/Vol] 4.77 10*6/uL Normal 4.6-6.2 [facility] Comment on above: Performed By: #### L 506.1000, L503.6550, L100.0100, L500.4050, L500.4100, L503.6030, L501.9985, L502.0250, L400.0001 #### [facility] [address] [place], [place], [phone] (235) RDW SD 47.0 fl High 35.1-43.9 [facility] Comment on above: Performed By: #### L 506.1000, L503.6550, L100.0100, L500.4050, L500.4100, L503.6030, L501.9985, L502.0250, L400.0001 #### [facility] [address] [place], [place], [phone] WBC (Bld) [#/Vol] 9.4 10*3/uL Normal 4.4-11.0 [facility] Comment on above: Performed By: #### L 506.1000, L503.6550, L100.0100, L500.4050, L500.4100, L503.6030, L501.9985, L502.0250, L400.0001 #### [facility] [address] [place], [place], [phone] Comprehensive Metabolic Prof [facility] 03-28-2024 Albumin [Mass/Vol] 3.2 g/dL Normal 3.2-5.0 [facility] Comment on above: Performed By: #### L 501.9985, L502.0250, L501.0900, L500.4100, L506.1001, L501.5101, L100.0100, L500.4050 #### [facility] [address] [place], [place], [phone] Albumin/Globulin [Mass ratio] 0.9 {ratio} Normal 0.9-2.4 [facility] Comment on above: Performed By: #### L 501.9985, L502.0250, L501.0900, L500.4100, L506.1001, L501.5101, L100.0100, L500.4050 #### [facility] [address] [place], [address] ALK P 152 U/L High 45-117 [facility] Comment on above: Performed By: #### L 501.9985, L502.0250, L501.0900, L500.4100, L506.1001, L501.5101, L100.0100, L500.4050 #### [facility] [address] [place], [address] ALT [Catalytic activity/Vol] 46 U/L Normal 16-61 [facility] Comment on above: Performed By: #### L 501.9985, L502.0250, L501.0900, L500.4100, L506.1001, L501.5101, L100.0100, L500.4050 #### [facility] [address] [place], [address] AST [Catalytic activity/Vol] 38 U/L High 15-37 [facility] Comment on above: Performed By: #### L 501.9985, L502.0250, L501.0900, L500.4100, L506.1001, L501.5101, L100.0100, L500.4050 #### [facility] [address] [place], [address] Bilirubin [Mass/Vol] 0.50 mg/dL Normal 0.20-1.00 [facility] Comment on above: Result Comment: For patients on eltrombopag therapy, use of Dimension [place] TBIL is not recommended. Performed By: #### L 501.9985, L502.0250, L501.0900, L500.4100, L506.1001, L501.5101, L100.0100, L500.4050 #### [facility] [address] [place], [address] BUN/CRE 17.1 RATIO Normal 10-20 [facility] Comment on above: Performed By: #### L 501.9985, L502.0250, L501.0900, L500.4100, L506.1001, L501.5101, L100.0100, L500.4050 #### [facility] [address] [place], [address] CA,Total 9.3 mg/dL Normal 8.5-10.1 [facility] Comment on above: Performed By: #### L 501.9985, L502.0250, L501.0900, L500.4100, L506.1001, L501.5101, L100.0100, L500.4050 #### [facility] [address] [place], [address] Chloride [Moles/Vol] 104 mmol/L Normal 98-107 [facility] Comment on above: Performed By: #### L 501.9985, L502.0250, L501.0900, L500.4100, L506.1001, L501.5101, L100.0100, L500.4050 #### [facility] [address] [place], [address] CO2 [Moles/Vol] 25.0 mmol/L Normal 21.0-32.0 [facility] Comment on above: Performed By: #### L 501.9985, L502.0250, L501.0900, L500.4100, L506.1001, L501.5101, L100.0100, L500.4050 #### [facility] [address] [place], [address] Creatinine [Mass/Vol] 1.70 mg/dL High 0.70-1.30 [facility] Comment on above: Result Comment: The validity of the calculated GFR GFRAA in patients over 70 years has not been determined. Clinical correlation is essential. Performed By: #### L 501.9985, L502.0250, L501.0900, L500.4100, L506.1001, L501.5101, L100.0100, L500.4050 #### [facility] [address] [place], [place], [phone] (108) EST GFR - AA 52 mL/min Low >60 [facility] Comment on above: Result Comment: Afri can [place] GFR Calc Performed By: #### L 501.9985, L502.0250, L501.0900, L500.4100, L506.1001, L501.5101, L100.0100, L500.4050 #### [facility] [address] [place], [place], [id number] GAP 9 Normal 5-15 [facility] Comment on above: Performed By: #### L 501.9985, L502.0250, L501.0900, L500.4100, L506.1001, L501.5101, L100.0100, L500.4050 #### [facility] [address] [place], [place], [phone] (320) GFR/1.73 sq M.predicted among non-blacks MDRD (S/P/Bld) [Vol rate/Area] 43 mL/min/{1.73_m2} Low >60 [facility] Comment on above: Result Comment: Non- GFR Calc Performed By: #### L 501.9985, L502.0250, L501.0900, L500.4100, L506.1001, L501.5101, L100.0100, L500.4050 #### [facility] [address] [place], [place], [phone] (481) Globulin (S) [Mass/Vol] 3.6 g/dL Normal 2.2-4.2 [facility] Comment on above: Performed By: #### L 501.9985, L502.0250, L501.0900, L500.4100, L506.1001, L501.5101, L100.0100, L500.4050 #### [facility] [address] [place], [address] Glucose [Mass/Vol] 140 mg/dL High 74-106 [facility] Comment on above: Result Comment: Fast ing Glucose result greater than or equal to 126 mg/dL suggests DIABETES MELLITUS per A.D.A. criteria. Performed By: #### L 501.9985, L502.0250, L501.0900, L500.4100, L506.1001, L501.5101, L100.0100, L500.4050 #### [facility] [address] [place], [address] Potassium [Moles/Vol] 4.7 mmol/L Normal 3.5-5.1 [facility] Comment on above: Performed By: #### L 501.9985, L502.0250, L501.0900, L500.4100, L506.1001, L501.5101, L100.0100, L500.4050 #### [facility] [address] [place], [address] Sodium [Moles/Vol] 138 mmol/L Normal 136-145 [facility] Comment on above: Performed By: #### L 501.9985, L502.0250, L501.0900, L500.4100, L506.1001, L501.5101, L100.0100, L500.4050 #### [facility] [address] [place], [address] T PROT 6.8 g/dL Normal 6.4-8.2 [facility] Comment on above: Performed By: #### L 501.9985, L502.0250, L501.0900, L500.4100, L506.1001, L501.5101, L100.0100, L500.4050 #### [facility] [address] [place], [address] Urea nitrogen [Mass/Vol] 29 mg/dL High 7-18 [facility] Comment on above: Performed By: #### L 501.9985, L502.0250, L501.0900, L500.4100, L506.1001, L501.5101, L100.0100, L500.4050 #### [facility] [address] [place], [address] Ferritinon 03-28-2024 Ferritin [Mass/Vol] 46 ng/mL Normal 26-388 [facility] Comment on above: Performed By: #### L 501.9985, L502.0250, L501.0900, L500.4100, L506.1001, L501.5101, L100.0100, L500.4050 #### [facility] [address] [place], [address] Hemoglobin A1con 03-28-2024 HbA1c (Bld) [Mass fraction] 5.6 % Normal 3.8-5.6 [facility] Comment on above: Result Comment: Norm al < 5.7 % Prediabetic 5.7 - 6.4 % Diabetic >or= 6.5 % Please note range changes. Performed By: #### L 501.9985, L502.0250, L501.0900, L500.4100, L506.1001, L501.5101, L100.0100, L500.4050 #### [facility] [address] [place], [address] Iron+Iron Binding Capacityon 03-28-2024 Iron [Mass/Vol] 76 ug/dL Normal 65-175 [facility] Comment on above: Performed By: #### L 501.9985, L502.0250, L501.0900, L500.4100, L506.1001, L501.5101, L100.0100, L500.4050 #### [facility] [address] [place], [address] IRON SATURATION 23.8 Normal 15.0-55.0 [facility] Comment on above: Performed By: #### L 501.9985, L502.0250, L501.0900, L500.4100, L506.1001, L501.5101, L100.0100, L500.4050 #### [facility] [address] [place], [address] TIBC 319 ug/dL Normal 250-450 [facility] Comment on above: Performed By: #### L 501.9985, L502.0250, L501.0900, L500.4100, L506.1001, L501.5101, L100.0100, L500.4050 #### [facility] [address] [place], [address] Lipid Profileon 03-28-2024 Cholesterol [Mass/Vol] 125 mg/dL Normal 200 [facility] Comment on above: Result Comment: <200 mg/dL Desirable 200-240 mg/dL Borderline >240 mg/dL High Risk Performed By: #### L 501.9985, L502.0250, L501.0900, L500.4100, L506.1001, L501.5101, L100.0100, L500.4050 #### [facility] [address] [place], [address] Cholesterol in HDL [Mass/Vol] 56 mg/dL Normal [facility] Comment on above: Result Comment: The drugs N-Acetylcysteine and Metamizole may falsely depress this assay. Reference Range HDL <40 mg/dL Low HDL Cholesterol HDL >or= 60 mg/dL High HDL Cholesterol Performed By: #### L 501.9985, L502.0250, L501.0900, L500.4100, L506.1001, L501.5101, L100.0100, L500.4050 #### [facility] [address] [place], [address] Cholesterol in LDL [Mass/Vol] 39 mg/dL Normal 0-130 [facility] Comment on above: Performed By: #### L 501.9985, L502.0250, L501.0900, L500.4100, L506.1001, L501.5101, L100.0100, L500.4050 #### [facility] [address] [place], [address] Cholesterol in VLDL [Mass/Vol] 30 mg/dL Normal 5-40 [facility] Comment on above: Performed By: #### L 501.9985, L502.0250, L501.0900, L500.4100, L506.1001, L501.5101, L100.0100, L500.4050 #### [facility] [address] [place], [address] Triglyceride [Mass/Vol] 148 mg/dL Normal [facility] Comment on above: Result Comment: The drugs N-Acetylcysteine and Metamizole may falsely depress this assay. Serum Triglycerides Reference Interval Normal <150 mg/dL Borderline high 150 - 199 mg/dL High 200 - 499 mg/dL Very High > or = 500 mg/dL Performed By: #### L 501.9985, L502.0250, L501.0900, L500.4100, L506.1001, L501.5101, L100.0100, L500.4050 #### [facility] [address] [place], [address] Microalb:Creat Ratio,Random URon 03-28-2024 Creatinine [Mass/Vol] 102.00 mg/dL Normal NO RANGE EST. [facility] Comment on above: Performed By: #### L 501.9985, L502.0250, L501.0900, L500.4100, L506.1001, L501.5101, L100.0100, L500.4050 #### [facility] [address] [place], [address] MALB:CRE 2921.6 mg/g CRE High <30 mg/g CRE [facility] Comment on above: Performed By: #### L 501.9985, L502.0250, L501.0900, L500.4100, L506.1001, L501.5101, L100.0100, L500.4050 #### [facility] [address] [place], [address] MICROALBUMIN,UR 2980.0 mg/L Normal NO RANGE EST. [facility] Comment on above: Performed By: #### L 501.9985, L502.0250, L501.0900, L500.4100, L506.1001, L501.5101, L100.0100, L500.4050 #### [facility] [address] [place], [address] Urinalysis, Completeon 03-28 WBC 0-5 SEEN Normal 0-5 [facility] Comment on above: Order Comment: CLEAN CATCH Performed By: #### L 501.9985, L502.0250, L501.0900, L500.4100, L506.1001, L501.5101, L100.0100, L500.4050 #### [facility] [address] [place], [address] BACTERIA 0 SEEN Normal None Seen [facility] Comment on above: Order Comment: CLEAN CATCH Performed By: #### L 501.9985, L502.0250, L501.0900, L500.4100, L506.1001, L501.5101, L100.0100, L500.4050 #### [facility] [address] [place], [address] EPI,SQUAMOUS 0 SEEN Normal 0-5 [facility] Comment on above: Order Comment: CLEAN CATCH Performed By: #### L 501.9985, L502.0250, L501.0900, L500.4100, L506.1001, L501.5101, L100.0100, L500.4050 #### [facility] [address] [place], [address] Mucus Ql (Urine sed) 0 SEEN Normal [facility] Comment on above: Order Comment: CLEAN CATCH Performed By: #### L 501.9985, L502.0250, L501.0900, L500.4100, L506.1001, L501.5101, L100.0100, L500.4050 #### [facility] [address] [place], [address] RBC 0 SEEN Normal 0-5 [facility] Comment on above: Order Comment: CLEAN CATCH Performed By: #### L 501.9985, L502.0250, L501.0900, L500.4100, L506.1001, L501.5101, L100.0100, L500.4050 #### [facility] [address] [place], [place], [id number] Vitamin D,25 Hydroxyon 03-28 Vitamin D 25-OH 38.8 ng/mL Normal [facility] Comment on above: Result Comment: Ladi min D 25(OH) Status Range Deficiency <20 ng/mL (50nmol/L) Insufficiency 20 - 30 ng/mL (50 - 75 nmol/L) Sufficiency 30 - 100 ng/mL (75 - 250 nmol/L) Toxicity >100 ng/mL (>250 nmol/L) Performed By: #### L 501.9985, L502.0250, L501.0900, L500.4100, L506.1001, L501.5101, L100.0100, L500.4050 #### [facility] [address] [place], [address] CNTHERAPYon 01-18-2024 CNTHERAPY OT/PT/Speech Visit ( PTMDRG) DOUGLAS CALLAWAY JR ([id number]) 1955 M Date Time Provider Department 01/18/24 4:45 PM KARLA CASTRO PTMDRG Date Time Provider Department [place] 01/18/2024 4:45 PM [id number] CASTROG [facility] Reason for Visit: PT Progress Note [1596] PT Discharge [752] Primary Visit Diagnosis:Diabetes mellitus without complication (HCC) [E11.9] Other Visit Diagnoses:Abnormality of gait due to impairment of balance [R26.89] Weakness of both lower extremities [R29.898] Abnormality of gait [R26.9] Imbalance [R26.89] Allergies As of Date: 01/18/2024 (No Known Allergies) Date Reviewed: 01/17/2024 Reviewed by: Fátima Martinez MA - Fully Assessed Prescriptions as of 01/19/2024 - lamoTRIgine (LAMICTAL) 200 mg tablet Take 200 mg by mouth two times a day. - ondansetron (ZOFRAN) 4 mg tablet Take 1 tablet by mouth once daily as needed for nausea/vomiting (for nausea.). - dapagliflozin propanediol (FARXIGA) 10 mg tablet Take 1 tablet by mouth every afternoon. - dapagliflozin propanediol (FARXIGA) 10 mg tablet - primidone (MYSOLINE) 50 mg tablet Take 1 tablet by mouth every afternoon. - losartan (COZAAR) 50 mg tablet Take 1 tablet by mouth every afternoon. - aspirin, enteric coated (JAILENE LOW DOSE ASPIRIN) 81 mg EC tablet Take by mouth. - doxepin capsule 10 mg Take 10 mg by mouth as needed. - alendronate (FOSAMAX) 70 mg tablet Take 70 mg by mouth one time a week. In AM with cup of water on empty stomach. Nothing else by mouth and stay upright for 30 min. - cyanocobalamin, vitamin B-12, (VITAMIN B12 ORAL) Take 1 tablet by mouth once daily. - cholecalciferol, vitamin D3, (VITAMIN D3 ORAL) Take 1 capsule by mouth once daily. - dorzolamide-timolol (COSOPT) 22.3-6.8 mg/mL ophthalmic solution Use 1 Drop in both eyes twice daily. - DULoxetine (CYMBALTA) 60 mg capsule Take 60 mg by mouth once daily. - metFORMIN (GLUCOPHAGE) 1,000 mg tablet Take 1,000 mg by mouth twice daily with meals. - metoprolol tartrate, short acting, (LOPRESSOR) 50 mg tablet Take 50 mg by mouth two times a day. Facility-Administered Medications as of 01/19/2024 - lidocaine (PF) 10 mg/mL (1 %) 1-2 mg injection (XYLOCAINE) - lactated ringers iv infusion [facility] 01-17-2024 [facility] Office Visit (AGGAST ACC) DOUGLAS CALLAWAY JR ([id number]) 1955 M Date Time Provider Department 01/17/24 2:30 PM KARLA SAUER During your visit today, we recorded the following information about you: Pulse Blood pressure 51/minute 145/77 Karla Sauer PA-C 01/17/2024 3:11 PM Signed GASTROENTEROLOGY PROGRESS NOTE OUTPATIENT FOLLOW UP HPI: I saw Douglas Callaway JR today for a follow up after his colonoscopy. Patient tolerated procedure well. He states that he occasionally still gets nauseated during the day but the Zofran works quickly for him to resolve this. Patient states that he is no longer having diarrhea. He will sometimes have a mixed stool with some formed and some liquid but never all liquid. He is not running to the bathroom after meals, is not having urgent liquid diarrhea at all. He has stopped taking the Creon because he could not afford it and he has not had to resume. PAST MEDICAL HISTORY Diagnosis Date Bipolar II disorder (HCC) CAD (coronary artery disease) 12/2019 CABG x 3 Carotid artery occlusion with cerebral infarction (HCC) pt denies this; CVA was secondary to HTN CVA (cerebral vascular accident) (HCC) 2003 related to untreated HTN; no residual effects Depression Elevated LFTs Gastroparesis POP procedure 06/11/21 GERD (gastroesophageal reflux disease) Hepatitis A 09/2018 Resolved HTN (hypertension) Hyperlipemia Insomnia CABRERA (obstructive sleep apnea) does not currently have a CPAP Osteoporoses Renal insufficiency TIA (transient ischemic attack) prior to CVA in 2003, none since Type 2 diabetes mellitus (HCC) 2018 Iván Case PCP PAST SURGICAL HISTORY Procedure Laterality Date COLONOSCOPY GEN ANES 09/2017 normal per patient COLONOSCOPY SCREENING 12/29/2023 Naima Lee MD CORONARY ART/GRFT ANGIO ARIADNA 12/15/2019 [facility] ; CABG x 3 EGD 08/2020 at [facility] EGD WITH BIOPSY(S) 05/13/2023 Dr. Fajardo ERCP STENT PLACEMENT BILIARY/PANCREATIC DUCT 09/02/2021 Dr Yarbrough GI TRANSIT AND PRES CARLEY WIRELESS CAPSULE W/INTERP 01/08/2021 Smart Pill-delayed gastric emptying; INCISIONAL BIOPSY SKIN SINGLE LESION biopsy of mass over right eye; benign LAPAROSCOPIC CHOLECYSTECTOMY 09/02/2021 PER ORAL PYLOROMYOTOMY (POP) PROCEDURE (COMP 47000) 06/11/2021 Dr. Bray REMV CATARACT EXTRACAP,INSERT LENS Bilateral 2016 SHOULDER SURGERY HX TONSILLECTOMY HX Social History Tobacco Use Smoking status: Former Types: Cigarettes Smokeless tobacco: Never Tobacco comments: during college Vaping Use Vaping Use: Never used Substance Use Topics Alcohol use: Yes Alcohol/week: 12.0 standard drinks of alcohol Types: 12 Cans of Beer (12oz) per week Drug use: Never FAMILY HISTORY Problem Relation Age of Onset other (pulmonary fibrosis) Mother Colon Cancer Father Current Outpatient Medications Medication Sig lamoTRIgine (LAMICTAL) 200 mg tablet Take 200 mg by mouth two times a day. dapagliflozin propanediol (FARXIGA) 10 mg tablet Take 1 tablet by mouth every afternoon. dapagliflozin propanediol (FARXIGA) 10 mg tablet primidone (MYSOLINE) 50 mg tablet Take 1 tablet by mouth every afternoon. ondansetron (ZOFRAN) 4 mg tablet Take 1 tablet by mouth once daily as needed for nausea/vomiting (for nausea.). losartan (COZAAR) 50 mg tablet Take 1 tablet by mouth every afternoon. aspirin, enteric coated (JAILENE LOW DOSE ASPIRIN) 81 mg EC tablet Take by mouth. doxepin capsule 10 mg Take 10 mg by mouth as needed. alendronate (FOSAMAX) 70 mg tablet Take 70 mg by mouth one time a week. In AM with cup of water on empty stomach. Nothing else by mouth and stay upright for 30 min. cyanocobalamin, vitamin B-12, (VITAMIN B12 ORAL) Take 1 tablet by mouth once daily. cholecalciferol, vitamin D3, (VITAMIN D3 ORAL) Take 1 capsule by mouth once daily. dorzolamide-timolol (COSOPT) 22.3-6.8 mg/mL ophthalmic solution Use 1 Drop in both eyes twice daily. DULoxetine (CYMBALTA) 60 mg capsule Take 60 mg by mouth once daily. metFORMIN (GLUCOPHAGE) 1,000 mg tablet Take 1,000 mg by mouth twice daily with meals. metoprolol tartrate, short acting, (LOPRESSOR) 50 mg tablet Take 50 mg by mouth two times a day. No current facility-administered medications for this visit. Facility-Administered Medications Ordered in Other Visits Medication Dose Route Frequency lidocaine (PF) 10 mg/mL (1 %) 1-2 mg injection (XYLOCAINE) 0.1-0.2 mL INTRADERMAL PRN lactated ringers iv infusion 30 mL/hr INTRAVENOUS CONTINUOUS ALLERGIES No Known Allergies GI SPECIFIC ROS: Difficulty swallowing / foods sticking in throat: No Heartburn: No Hoarseness: No Chronic cough: No Regurgitation: No Chest pain: No Filling up quickly at meals: No Loss of appetite: No Nausea: No Vomiting: No Abdominal pain: No Recent (more content not included)... Normal [facility] CNTHERAPYon 01-10-2024 CNTHERAPY OT/PT/Speech Visit ( PTMDRG) CESIADOUGLAS Brianna YANG ([id number]) 1955 M Date Time Provider Department 01/10/24 11:30 AM MARÍA OROSCO Date Time Provider Department [place] 01/10/2024 11:30 AM [id number] OROSCO [facility] Reason for Visit: Physical Therapy [503] Primary Visit Diagnosis:Diabetes mellitus without complication (HCC) [E11.9] Other Visit Diagnoses:Weakness of both lower extremities [R29.898] Abnormality of gait [R26.9] Imbalance [R26.89] Allergies As of Date: 01/10/2024 (No Known Allergies) Date Reviewed: 12/29/2023 Reviewed by: Lavonne Nava, RN - Fully Assessed Prescriptions as of 01/10/2024 - dapagliflozin propanediol (FARXIGA) 10 mg tablet Take 1 tablet by mouth every afternoon. - dapagliflozin propanediol (FARXIGA) 10 mg tablet - pantoprazole DR (PROTONIX) 40 mg tablet take 1 tablet by mouth twice a day - lbiqey-lxaktrsj-bbqjuxr (CREON 36) 36,000-114,000- 180,000 unit delayed release capsule Take 2 caps by mouth 3 times daily with meals and 1 cap with each snack. Take 1st cap before meal starts and the 2nd cap intermediate through. - primidone (MYSOLINE) 50 mg tablet Take 1 tablet by mouth every afternoon. - JARDIANCE 10 mg tablet Take 1 tablet by mouth every afternoon. - ondansetron (ZOFRAN) 4 mg tablet Take 1 tablet by mouth once daily as needed for nausea/vomiting (for nausea.). - amoxicillin (AMOXIL) 500 mg capsule - amoxicillin-clavulanic acid (AUGMENTIN) 875-125 mg per tablet Take by mouth. - atorvastatin (LIPITOR) 80 mg tablet Take 1 tablet by mouth every evening. - dorzolamide (TRUSOPT) 2 % ophthalmic solution Use in eyes. - doxycycline hyclate (VIBRAMYCIN) 100 mg capsule Take by mouth. - losartan (COZAAR) 50 mg tablet Take 1 tablet by mouth every afternoon. - aspirin, enteric coated (JAILENE LOW DOSE ASPIRIN) 81 mg EC tablet Take by mouth. - lamoTRIgine (LAMICTAL) 100 mg tablet take 1/2 tablet by mouth once daily to BE TAKEN ALONG WITH 200 MN... (REFER TO PRESCRIPTION NOTES). - rosuvastatin (CRESTOR) 10 mg tablet Take 10 mg by mouth every evening. - lamoTRIgine ER (LAMICTAL XR) 250 mg 24 hr tablet Take by mouth once daily. - doxepin capsule 10 mg Take 10 mg by mouth as needed. - alendronate (FOSAMAX) 70 mg tablet Take 70 mg by mouth one time a week. In AM with cup of water on empty stomach. Nothing else by mouth and stay upright for 30 min. - oxyCODONE-acetaminophen (PERCOCET) 5-325 mg tablet Take 1-2 tablets by mouth every 8 hours as needed for pain. - ondansetron (ZOFRAN) 4 mg tablet take 1 tablet by mouth every 8 hours if needed for nausea - cyanocobalamin, vitamin B-12, (VITAMIN B12 ORAL) Take 1 tablet by mouth once daily. - cholecalciferol, vitamin D3, (VITAMIN D3 ORAL) Take 1 capsule by mouth once daily. - aspirin (JAILENE CHEWABLE ASPIRIN) 81 mg chewable tablet Take 81 mg by mouth once daily. - amLODIPine (NORVASC) 10 mg tablet Take 10 mg by mouth once daily. - dorzolamide-timolol (COSOPT) 22.3-6.8 mg/mL ophthalmic solution Use 1 Drop in both eyes twice daily. - DULoxetine (CYMBALTA) 60 mg capsule Take 60 mg by mouth once daily. - metFORMIN (GLUCOPHAGE) 1,000 mg tablet Take 1,000 mg by mouth twice daily with meals. - rosuvastatin (CRESTOR) 40 mg tablet Take 40 mg by mouth daily at bedtime. - metoprolol tartrate 75 mg tab Take 75 mg by mouth twice daily. Facility-Administered Medications as of 01/10/2024 - lidocaine (PF) 10 mg/mL (1 %) 1-2 mg injection (XYLOCAINE) - lactated ringers iv infusion Normal [facility] CNTHERAPYon 01-06-2024 CNTHERAPY OT/PT/Speech Visit ( PTMDRG) DOUGLAS CALLAWAY JR ([id number]) 1955 M Date Time Provider Department 01/06/24 11:30 AM KARLA CSATRO Date Time Provider Department Center 01/06/2024 11:30 AM [id number] CASTRO PTMSOTERO [facility] Reason for Visit: Physical Therapy [503] Primary Visit Diagnosis:Diabetes mellitus without complication (HCC) [E11.9] Other Visit Diagnoses:Weakness of both lower extremities [R29.898] Abnormality of gait [R26.9] Imbalance [R26.89] Allergies As of Date: 01/06/2024 (No Known Allergies) Date Reviewed: 12/29/2023 Reviewed by: Lavonne Nava, YUN - Fully Assessed Prescriptions as of 01/06/2024 - dapagliflozin propanediol (FARXIGA) 10 mg tablet Take 1 tablet by mouth every afternoon. - dapagliflozin propanediol (FARXIGA) 10 mg tablet - pantoprazole DR (PROTONIX) 40 mg tablet take 1 tablet by mouth twice a day - mycyjw-tztfqdig-uirmvcl (CREON 36) 36,000-114,000- 180,000 unit delayed release capsule Take 2 caps by mouth 3 times daily with meals and 1 cap with each snack. Take 1st cap before meal starts and the 2nd cap intermediate through. - primidone (MYSOLINE) 50 mg tablet Take 1 tablet by mouth every afternoon. - JARDIANCE 10 mg tablet Take 1 tablet by mouth every afternoon. - ondansetron (ZOFRAN) 4 mg tablet Take 1 tablet by mouth once daily as needed for nausea/vomiting (for nausea.). - amoxicillin (AMOXIL) 500 mg capsule - amoxicillin-clavulanic acid (AUGMENTIN) 875-125 mg per tablet Take by mouth. - atorvastatin (LIPITOR) 80 mg tablet Take 1 tablet by mouth every evening. - dorzolamide (TRUSOPT) 2 % ophthalmic solution Use in eyes. - doxycycline hyclate (VIBRAMYCIN) 100 mg capsule Take by mouth. - losartan (COZAAR) 50 mg tablet Take 1 tablet by mouth every afternoon. - aspirin, enteric coated (JAILENE LOW DOSE ASPIRIN) 81 mg EC tablet Take by mouth. - lamoTRIgine (LAMICTAL) 100 mg tablet take 1/2 tablet by mouth once daily to BE TAKEN ALONG WITH 200 MN... (REFER TO PRESCRIPTION NOTES). - rosuvastatin (CRESTOR) 10 mg tablet Take 10 mg by mouth every evening. - lamoTRIgine ER (LAMICTAL XR) 250 mg 24 hr tablet Take by mouth once daily. - doxepin capsule 10 mg Take 10 mg by mouth as needed. - alendronate (FOSAMAX) 70 mg tablet Take 70 mg by mouth one time a week. In AM with cup of water on empty stomach. Nothing else by mouth and stay upright for 30 min. - oxyCODONE-acetaminophen (PERCOCET) 5-325 mg tablet Take 1-2 tablets by mouth every 8 hours as needed for pain. - ondansetron (ZOFRAN) 4 mg tablet take 1 tablet by mouth every 8 hours if needed for nausea - cyanocobalamin, vitamin B-12, (VITAMIN B12 ORAL) Take 1 tablet by mouth once daily. - cholecalciferol, vitamin D3, (VITAMIN D3 ORAL) Take 1 capsule by mouth once daily. - aspirin (JAILENE CHEWABLE ASPIRIN) 81 mg chewable tablet Take 81 mg by mouth once daily. - amLODIPine (NORVASC) 10 mg tablet Take 10 mg by mouth once daily. - dorzolamide-timolol (COSOPT) 22.3-6.8 mg/mL ophthalmic solution Use 1 Drop in both eyes twice daily. - DULoxetine (CYMBALTA) 60 mg capsule Take 60 mg by mouth once daily. - metFORMIN (GLUCOPHAGE) 1,000 mg tablet Take 1,000 mg by mouth twice daily with meals. - rosuvastatin (CRESTOR) 40 mg tablet Take 40 mg by mouth daily at bedtime. - metoprolol tartrate 75 mg tab Take 75 mg by mouth twice daily. Facility-Administered Medications as of 01/06/2024 - lidocaine (PF) 10 mg/mL (1 %) 1-2 mg injection (XYLOCAINE) - lactated ringers iv infusion [facility] [id number] 01-05-2024 [id number] O ID: [id number] Author: ELBA SAMANIEGO PT, DPT Service: ? Author Type: Physical Therapist Type: [id number] Filed: 01/05/2024 08:21 Note Text: [facility] Physical Therapy Plan of Care Certification Patient Name: Douglas Callaway JR : 1955 [facility] #: [id number] Date: 12/15/2023 To: Sheryl Bassett MD From Therapist: Elba Samaniego PT, DPT RE: Patient Certification/ Recertification Your review, approval and electronic signature are required in order to comply with Payor: MEDICARE / Plan: MEDICARE A AND B / Product Type: Medicare / regulations. The identified Physical Therapy PLAN OF CARE for the patient is as follows: E11.9 Diabetes mellitus without complication (HCC) (primary encounter diagnosis) R29.898 Weakness of both lower extremities R26.9 Abnormality of gait R26.89 Imbalance PLAN OF CARE UPDATE: Assessment: Douglas Callaway JR demonstrates improvements in rising from a chair, standing, and walking. He has progressed toward goals. Patient continues to present with impairments in balance, gait, independence in exercise, overall function, posture, and strength that interfere with stair negotiation, walking, standing . Current prognosis is Good due to: positive past response to therapy Fair due to: clinical presentation . He will benefit from continued skilled therapy services to meet the updated goals for this plan of care as noted below. Goals for Episode of Care: updated 12/15/2023 Patient will ambulate with least restrictive device with modified independence and no LOB.- progressing well in the house, still uses cane outside Patient will demonstrate current home exercise program independently. -progressing Patient will complete 10 reps on 30 second chair stand test to improve function--progressiong Improve tandem stance on 4 stage balance test to = or >10 seconds to decrease risk for falls.-MET Be able to maintain SLS B for 20 seconds -progressing increase to being able to perform >1000 feet in 6 months--continue to assess Patient Goals: Improve typing. Fall less. Better strength. MET Planned Interventions, Frequency, and Duration: 1x/week, 8 weeks Total Number of Visits Planned: 8 Patient to be seen for Therapeutic exercise (51589), Neuromuscular re-education (28845), Manual therapy (84623), Therapeutic activities (98076), Self-custodial management (84693), Gait Training (53086), Patient/Family/Caregiver Education PLAN FOR NEXT VISIT: 6 min walk test; Check if promis due For further details regarding this patient refer to the Physical Therapy electronically documented visit dated 12/15/2023. Provider Attestation I have reviewed the treatment plan for Douglas Callaway , CCF# [id number] for the period of 12/18/23 -- 02/13/24, established on 12/15/2023. Signature certifies the need for therapy services. [facility] SURGICAL PATHOLOGYOrdered By : Ariane Garrido on 12-31-2023 Case Report Surgical Pathology R eport Case: [id number] Authorizing Provider: Naima Lee MD Collected: 12/29/2023 11:38 AM Ordering Location: Ambulatory Surgery Received: 12/29/2023 07:26 PM Pathologist: Ariane Garrido MD Specimens: A) - Colon, Transverse, Polyp, X6 r/o adenoma B) - Small Bowel, Terminal Ileum, Biopsy, r/o inflammation C) - Colon, Right, Biopsy, r/o inflammation D) - Colon, Ascending Polyp, X2 E) - Colon, Left, Biopsy, r/o inflammation F) - Rectum, Polyp, r/o adenoma [facility] Work Phone: FINAL DIAGNOSIS x4ztvDZoWEPtrKVzBIYd NVxhbnNp SFDtnCOvT8YrkkcvLEmjLB3dHY2g wEvnyJOmcDLaNXQtErAik9ekj583 aHVjo6twHTQKyzdedEp6mJwnK20g r6O5YjopQ15gkQVlKTT9RGTmXSUq vVZoKHDaENB4DHFrlFLfO5dwEKEq LX0rjeerNUfiBEkrPPNmdFS7MVEx cJGyP9ZtFTNcSTweZPXvzhk4GmWu Mo2elBHfqOgkPJlkBOCnIASlTDya KMQdOdUeFB8mVZUzWX8uryYyr9In B60bz74eSQCiyDfxATzkVfkrLotq tTG0KorlOHGgCPZgRXecOT96qmUz IeN3dKE9mIBxQMRrTO0kwVNqvLWj AVRogaKXEpSoJ93cbQvcGb27TObi ONPbyg6dklPiTOtwJNLePSSxfF6x q9x7WIFxkkZyA92gcIvubL50JDM6 yN0axUXsrDPdk4Xbh1l4lYKqlxXs eUMyxv7diWhySCQpdVZhFUIyo80z iFVrCJQgzdBXKkUrKcjyvJBjK66u w55aRPXfg3LhsUblvTPbXC2Ug0zb tfejEL96Q87eSTC1wGHfPU0cOLTu RQztk5D5wOQhFUu1CPRosEujigod CLMySY7eNOS0nJObwwDxVJ5lIH7t J1Zvd0IhfWabADJwePn9aCGxrOXf VUGoomGZPpFlLGMaDT3twO5uKJFv dI9mRNOpy2p8zXrdUvnwmHF4PrVA ROPskWQkOV4HxtOmsWKudHPej0Om tHSswCuqfnTjKQSkh64cTLDnbggj KBWsOV0bVOveEvHwJ70st37qHOWz d0VcsUfnbULtCC5Pr4mnjzoqKO75 X82yQGC3sDIbJI7zKRZhRVaoh3X6 rHCjSSu0RYUibAdnhytnXGTbTU6f EJG5kEMypxFaPX5uOD4bE8Gzv6Nd oAjyOMDdpPr6fSIypLDbGOLtfgVK YiZjStClvEEwTDPdb1b8iChqGyok nOC4LcktOMJbIGYyKWmaUE52vnEw OgI5lOB8mPSlQVCrBI9xqWAkpTCs XHBhclxwYXJ9 [facility] Work Phone: Gross Description q0bszGZbJFUdfNGUZRS8 HSWsMI1d kOdwaXs0tAueRUBaduP1oCCjCYam l2hfUJQ4t1oykdSVLczcRFQpUC5m POoxCWObKK5tIwByKASbGwZcZHHd lCRoyjMhJnZkHJRiaYVtwLM8AGLr DQ9warebISdsLLxuNEQvtlB9BQAq fIYwS3OmIDKvQB3tevksOOS8TTSM BosiQc2inQHfmGtdFnZoEmOaQMJb ODZjUACyw3zpphRGdpblyIk5aN3S CBUnQ2DuDI5Co4bkDEEklCBiGHS1 RIoxg0zgFVipUTE7CUAcMVHmKKSx CS8ETiQjHNJkHey7UhR8BpF1GGw9 HKWBHBBkIMP2PuT1CMJdUVc9PWgv XFxuaCBcXHQgMSBcXGZsIFxcbmN9 i7ndSWYisGNfVLH1TLtup1hrDGiy PLB3MNDdPeEkMTVaKU6ZFxKhDCZj Asp6HhY8PaE4DPa1HDDNYfTxRiUl SPRqFpJ9XeGbQIq5ATl8EBqRUwCq GhicXGmjVApoOWU8IWJ3XkOdRERc SjBiSYDgAXPkAOrwjBMkLP6jgRid JYWaVN5HRFUbSQzmEGXwNrFhJR2q Q27hj13wMOJcAR9jytAas6BtPZHv aPexQJj6qyOlALGqymWBGowwAQEh QF2ELPNnZDovLQf0nsPvJYVnIyBq SRImU42yq6FTh0StMC4CWQg8vsBp ejLVIrienmByIAGaY9PyxdCmAJbz NMDbeo1lsPmzXWWuOBOiyYk6pIUg CPHdIDibEQ15xiPmAyQ7ZJ4jdW5s kVRtqHCynIohk1CrQUNqxvkklitk uD3fo3o3GFWwdw0xZTSjMkP6AVWx WZO6BUWdASAxvUW6qrSzCiObsSZu QyZzlOSuVmTxQ65vME1oFIY6VHng mrYciyRxlk74WIWnGWHnPNKuuD6c kcSbZgRcOEAnM2Esm13pNPEvADUm p6UgCQ9gGWmvEQaqdaqqcjKmsLBi gD6ebjKpYXBuYJArt4DbwREvEaAY cWDpd42dzAvdtrWxgZOeaH3lgvIq JPJyDC8fnXQnIEA3vZ3cFCHsKLUz rUXacQwfi2WyyDn6kFCsNOouBDEg cb7llOshKXhgSMGcrhAzXDItx9Oo iEKoct7ivPYcVG9GTUBannTBWyiv VZMiBQSgaJMRh4XkWCURKzwcbNfi TgGcjKIgBiF9BJIvxYYiUWJ8DV6i oHxwZWIfOIn1EQsiSZQhG6QaM7Ql XFxzZyBcXGlkIDUxMDAyIFxcZGIg U1IPSBHiWuL2HDciRnxiOCq5XKw9 YS8OMtRpUQJ5SQMoQoEwPfXrIXd6 KAllNM8MEKEvNjQyPVI0ZlxqBKA5 ODa3NBfruLCyYNanh5ZlKgEeBTIj JLcdzsU7RZWbqgRxh5KpWHUtQOEv G3oiKbNbSMSOEzvwojUiGURiZLYf FSnbQRUmt1FaEMULXNXfnO3giUXM tUV9lEdjLazcfGB5VDSfteLEGfzt TWBkSX2CXPJvRLfrGXk6kcCrZQMw FrWmJZCkT79wt0NKk6CuFU6KYGa4 bdRiyuezHyXtCCBxjKHHo2ZuBVlz MVGbWYDbdQMZd2DsWGLKCbcwddCp HDSzM0CgmlFdOBarVHRdpi6zkDof NVRjIIRguEn8xQDsKWJfwEYrDFTt b8QycTAcZXAns0Z1TFJwj2Q3FYZb J8nzXSoynBirGiH2fmQmIrymfVPp UiFtgKQxHjKzA52tNPMfwQPbzRrd n9LxeSu4zXBuQWspSX9dDZTdTTJr MSS7EL0CHyulnRkmByPsrOIrQgH9 OWPauINgBCD1BA3guTobVPHnRNe8 HXawUTMlJ4EuI7IpBJixGvOnWDjx OMSfKLXvNRuoXGMoT0XEONGyGkD9 GLrdAhzoSJh1GGo0TY6QZkBoYPH3 AHKsWcCyAZZxQZm9PHujXD8OCJZp YkHtJBV5HUx0BJD0XIe4COpomKZs NNpvk2CuDiGsELUtGJgruoP0IAEr wmQqv3ArDTXfRXLyF3lpFzNlJPDI RemrpqHhXNIwSSKwmP2vWRKEzPgm zQpkAqvvxLM7YJWvvvEYBofgUPMl QO2FFGViWNmiOTl1niEwASTjGqIf CDZoS54mx9INk0DwDM1WIPd5cwVd caqxBiZuHKLwsBKSp2VoHCclTDEm TLJzeFADz5KqDLYPDpixhxBqGGAz E1BhrmNrAYmfPWFira7raVxgECYz WHSlpUy0mOIiPTPtqBZjOBEfn7Aw aYSaUDSjj8H2LSYza3S8DAYqS0wx IJhlyQycVoF3tgByDkeczRYkJlJa sCRzXiLkC68zLYVecGZdeEfid9Fb uAw3hIPuJDxoMC3pHUPuQJPqRHA9 FH9BZkpoePprJfYbtAOyYeJ5ZXZr eEMsQDT4ME5yxQxsHTBaDTe3BGyu PGJhZ9JoD3SeGDitLyUeBRmdGQTr SJQpQShdVDFpF8ARQRCqSkD4CDqd SssaVTt2CUh4PI6JKhGdEGX1KLOm HJP0HKXsWCo3WQrmLM9LRLIpIwVk KEJ6DLPdITU3YNf4HRmvjVIuFPnu h2HmKcWjWDWtMPswxgZ2LAKztjIv i8FpNYGlUFSkL4seGpRnNBKKLxmu hzLkCQSiARQajO3oCTMJa0WbuoZb xoerOH0hgGJxwNFlWA9KZUQunuYt MVeezIwbuV2twNTbV5fhBpYkSkat cGljTmVzdERvYzEgDQpcbHRycGFy HGBqCfHlUGNzI3ciXbRlBDJnUbOc XABlK5rgVAQiSO3TWUHpHfRzZoXn LEg5BXFwbT1pWo9wkWNivC0fJRDv ZAH1jjYmcULpGJWhe7QsySEbELJt d1K5SRKoy0C7TIDrJ3umIBzlnCtf AtX3baWuRdZwaJAwTyXdcMNfPyUo F69hAEHugUUbwEmzp0IjgDk1xZJf XOccEK6fAANsDCRmMFQ3ED5KYuaj iLnbNqBcsLAvLwM1SGYsbQDlUKR8 UH6zlAdxIQZiGAg5QHdjYFMqC2Ir R0GjGHmlNmJyOVulUVUtKTLhBUup XHCyC9OIRSYcGoY0VGtyGzcaRQb8 QOw0FZ5LWwJjUND6RMBhUYkeKxNq SRn7IQgxNW9HLINjCyFaAOL6RGE8 HFK8VGj8NJljeDLpTGrvs4PrKgKk FVSsUDhpwpG7PONxkqUcm4YjNIKt JEXyU1mrCiHiFDJEGsrcurSxDKIg EQKmjK3lKKMUQGQ9BBSLeQ9zr0ty mKEnGH9ADLDwpqCiPLufgWisgQ1q hAUzB2lxNyBzBlcdhPwyCpGpsHDv YzEgDQpcbHRycGFyXHNiMzBcZXBp R8xwVeUuCZObOmSsIVDgC6joNYVr MR2CSBEoXpQeXnVlBBj3JOYcjT7o Yx2gcHGmuD5iWGAbCNM5wcZtqZRg RTYev7EzcLAtCEUms2N1XSYyp0W0 IXUvM0llTEsbsZvsDhE8utXeRhvy vJOhEkTauSZjLtWeU23jALWeaFTt vAcdi2JexSj7qDGpPFnxTY8lEGFh HEWjPMM6DE2EEbwaxZukOuGjkDSn VrJ2HMUjvWVmSQA7NR4ocFteSBFy HCo8GGrqALHsA6SgL1QnLYjxKaOz NTqsLEDnWDYrVRvkIGCzB0HNDYXh OqK0DJkcSdrhYXh3MNb3NY2WRdAp SKM2MMChKeN8YERkYXw1FKsrBM1P DFZfRgIuFPT6KFB8UKW2LUk7ALbc vVVbNCcob8DoQuFmNEPnGXmvulW5 HGJeluMec3KfURSyDSGpZ6viEmOm ROITNegvikXkURDnIUEvP4O8mKxv LJ5nbXKcoNBrHY3EHCUyojCbIKos bOzraE8ocFFqQ5cqOgRmOnldpNru TmVzdERvYzEgDQpcbHRycGFyXHNi EsHcYRGtG2ezRhRzZM1YZKLcSuCv KuKrKUn7KUGhoP5oIr6owNHwwT2p XTVfRR23wDThxHaaMJApL11hhfKc VF4sSMScenIok6d3yY3qNPI5bOFc yLAeleHkQ2gvXkBxjxIwhExwGLMv b05qIU94TUtpNB45RHccVF5xANGx OFXcFYHzDRC5CAQtQZH6QBDxMRPz zI3yNm7jv5LtdOkiNQKbIGOjn9Sx VH3lHOiwWYivxpEnTV8rSIVty8Sl aMuxjmIpKEIxKZ8ooMCvXfWOxWSz oEYkJ6SjXBVvPFSlsUDtuzDvkkBt UpdxSXW2MHAxDRAkRCXopHEqoLEq JVYoNESwaOIttnRggoPuiu96YLRg I2Ctv41eAV9lLP13PBqtiAAxjGJh kYJ9GWTizK9lPw6shBGzmE0plO4k Sgv8XJRcFLOeXLP6MQIcDKAqskOA YbarNUPsWWu8moAkiwTLIsbpLGKk DQogXHBhciANClxwYXIgDQpTUyBB cHJpbCAyNCwgMjAyNCAxMToxOSBQ MMetKSIvCGfdmDQsVY4KV5Per3Rn BBagoSmpHONyj01inRDpQd9qvPGp WIP2VOUtDWRwmTSkMAOYcQqpgQJv BHt4PBRjEAChiIdjJCB0GE4xOARm LTJkaYFzSHhnQ0ktHVUbXFGerWWl MY8TMQAzKsBiTRJvI1diOZLiPG4Y LWDplYRZUDY4ZO3hVLagUFKvU9Dq X5KdobZ5q4oilGrkm5RigAGoIN6m gIJpTB0QPQAnozUlHXdfPcSdPqAO Cn0= [facility] Work Phone: Performing Lab s6qoqQFlOAKffAFiDiDl MDAwXGFu z2wiMQDtaMJhFiStMjHuOmAcTmcy jXMhJVTcBmXnp5ner280wNLns4ky PKNfKeJ8uZOzCPSomTYoK912YTGx LPzib3anr6YhAOKxwTTmw6I7NCJV bozekBh5ePoxJ49kw0H0YcmbS3zy OZBkMTToE7ToHO2nADPoFrm6GXT8 KJZ7KYQiOHFsI4ZlTW2rLEAebPWz ARo8r9idlOjyYIRhZUZ3j7bdANuu fiMbZY7uhf2eeLm3d9jipyLeXKUt QCWzdDZANFKfL7EpyUugDk0lsNz6 bTzfGwpuZIN3Cue1PU9tmo77wfw1 dAvsCMYoyxycZhC5ZXrjUGWbvdbe ONh9ADcaTOThnQZ3XCOpdKNjZ6Fc ZUkzCW9jpqa7SDY2CAvjVKCmDnR5 WIYskQWmKMJvkWqeVUbci708UGM6 ZxMxHJ0fS2Cta6R6aI5qaDByRACq eLRhHnFpAZFkxw6obRWcMMfwh3Gd WCI1zyD2vRGrpCKeHFBfDX95Vhrf w1EsIxjag1OdA59aqZI3SCglj6lz NR4jKiR8txDcHGrvk7ynfZ4lAsL5 XNakUR8mQO6nVISrrL3bkafxMFWw LfHhfmqbSHUfmVucyuLuIc5wtIlw IPA8XRazA9glxD1nNjD9JFfsF1at tC7aKBk8TMahyWT9WKOeyV2fMO1q ipuet9jkRDfdJSijDBCqhjG8ryEc BTOxgTFeP9OxhI7tHADyPC1qqnee a9hyWFX5GIvlPTHoREG3EwPpQXXq w3Vhrbe6RqFoq5GoaPFeBWogI36f r986FSPznwNtA7ylwHJxtnkziMUl tlxqOMhcbaI7JXUdVMXzQNjsHQXj XGZzMjJcbGFuZzEwMzNcaGljaFxm IUthRsJhWXFfIAlsL1kyCjXlFwKs HqIVtDZiff1jxOaaNUmaqELicSTo eWU7mT5pXDWhceNjcz3sZKGncNYB hHH7HNvhhzSyS2deoxinZVQ0LGEa KWE4T3szYBZQilJtESVlTGWdeUTp TMYTWDH5HBB2FJJnMUEITXArFIA4 YPR3CXZxHAYulJYdSUHufjiaQDIa AFEzFHvtRQIcULPlIdFfpBvlcC7o FeSeRyVjGbfsKP8tBBMlO2xzlOXt ILIvXTYuV5qeYdDmpQ8quMrxKUfj ZjJcZnMyMlxsdHJjaCBMYWJvcmF0 e6R0HCjbbFOjghcyXFowwrNeALps gsmbKOYeOLgdR7vuLcNnPBAgrHss QGgws0RmBKFzNDZzLhYjUVyeATR6 z5X8EDwtwJYdduGRUpVDNV0vxGYu xqqjFU6PVeyiVVT8 [facility] Work Phone: [facility] Work Phone: [phone] 12-29-2023 [id number] HNO ID: [id number] Author: LAVONNE NAVA RN Service: ? Author Type: Registered Nurse Type: [id number] Filed: 12/29/2023 12:22 Note Text: The patient received a copy of Colonoscopy discharge instructions that contain information for how to contact the physician who performed the procedure and when to seek medical care. [facility] ANES POSTPROC EVALon 024 ANES POSTPROC EVAL HNO ID: [id number] Author: TIFFANIE HOPPER APRN.CRNA Service: Anesthesiology Author Type: Nurse Language Assistant Type: Anesthesia Postprocedure Evaluation Filed: 12/29/2023 12:21 Note Text: POST ANESTHESIA EVALUATION NOTE : 1955 Procedure Summary Date: 12/29/23 Room / Location: Ambulatory Surgery Anesthesia Start: 1121 Anesthesia Stop: 1215 Procedure: COLONOSCOPY DIAGNOSTIC Diagnosis: Diarrhea, unspecified type (Screening in patient at increased risk: FH of 1st-deg relative with colon cancer) Scheduled Providers: Naima Lee MD Responsible Provider: Tiffanie Hopper APRN.CRNA Anesthesia Type: MAC ASA Status: 3 Anesthesia Type: MAC Last Vitals Vitals Value Taken Time BP 112/62 12/29/23 1215 Temp 36.3 ?C (97.4 ?F) 12/29/23 1215 Pulse 50 12/29/23 1215 Resp 20 12/29/23 1215 SpO2 98 % 12/29/23 1215 Post Anesthesia Patient Status Patient Evaluation: PACU. PACU/ICU Patient Condition: stable. Anticipated Disposition: phase 2 then home. Neurological Status: aware and responsive. Pulmonary Status: breathing comfortably on room air Airway Control: returned to baseline unsupported. Cardiovascular Status: stable. Pain Management: clinically adequate - multimodal analgesia pain management approach Postoperative Hydration: acceptable. Intraoperative Events: no significant anesthesia events Post Operative Nausea/Vomiting Status: no significant post operative nausea or vomiting Recommendation: continue current plan of care. Anesthesia Observations No Documentation SIGNATURE: Tiffanie Hopper APRN.CRNA PATIENT NAME: Douglas Callaway JR DATE: December 29, 2023 TIME: 12:21 PM CSN: [id number] [facility] Colonoscopyon 12-29-2023 Colonoscopy [facility] Patient Name: Douglas Callaway Procedure Date: 12/29/2023 11:06 AM Date of : 1955 Admit Type: Outpatient Age: 68 Room: [place] [address] Gender: Male Note Status: Finalized Attending MD: Naima Lee MD, [id number] Procedure: Colonoscopy Indications: Screening in patient at increased risk: Family history of 1st-degree relative with colorectal cancer Providers: Naima Lee MD Patient Profile: Refer to note in patient chart for documentation of history and physical. Last Colonoscopy: several years ago. Referring Physician: Karla Sauer (Referring MD) Medicines: Monitored Anesthesia Care Complications: No immediate complications. Requesting Provider: Procedure: Pre-Anesthesia Assessment: - Prior to the procedure, a History and Physical was performed, and patient medications and allergies were reviewed. The patient's tolerance of previous anesthesia was also reviewed. The risks and benefits of the procedure and the sedation options and risks were discussed with the patient. All questions were answered, and informed consent was obtained. Prior Anticoagulants: The patient has taken no anticoagulant or antiplatelet agents. ASA Grade Assessment: See anesthesia record. After reviewing the risks and benefits, the patient was deemed in satisfactory condition to undergo the procedure. After I obtained informed consent, the scope was passed under direct vision. Throughout the procedure, the patient's blood pressure, pulse, and oxygen saturations were monitored continuously. The Colonoscope was introduced through the anus and advanced to the terminal ileum. I was present and participated during the entire procedure, including non-gordillo portions, and during the administration and monitoring of Moderate Sedation. The colonoscopy was performed without difficulty. The patient tolerated the procedure well. The quality of the bowel preparation was excellent. The ileocecal valve, appendiceal orifice, and rectum were photographed. Moderate Sedation: MAC anesthesia was administered by the anesthesia team. Findings: The perianal and digital rectal examinations were normal. A localized area of mildly erythematous mucosa was found in the cecum. Biopsies were taken with a cold forceps for histology. The remaining colon mucosa appeared normal. Biopsies obtained from the left side of the colon to rule out microscopic colitis. Two semi-pedunculated polyps were found in the ascending colon. The polyps were 4 to 10 mm in size. These polyps were removed with a hot snare. Resection and retrieval were complete. Six sessile polyps were found in the transverse colon. The polyps were 5 to 20 mm in size. The larger polyp was removed in piecemeal with the aid of Endocuff. These polyps were removed with a hot snare. Resection and retrieval were complete. To prevent bleeding post-intervention, one hemostatic clip was successfully placed. A 9 mm polyp was found in the rectum. The polyp was semi-sessile. The polyp was removed with a hot snare. Resection and retrieval were complete. A few small-mouthed diverticula were found in the sigmoid colon. Non-bleeding internal hemorrhoids were found during retroflexion. The hemorrhoids were medium-sized. The exam was otherwise normal throughout the examined colon. The terminal ileum appeared normal. Biopsies were taken with a cold forceps for histology. Impression: - Erythematous mucosa in the cecum. Biopsied. - Two 4 to 10 mm polyps in the ascending colon, removed with a hot snare. Resected and retrieved. - Six 5 to 20 mm polyps in the transverse colon, removed with a hot snare. Resected and retrieved. Clip was placed. - One 9 mm polyp in the rectum, removed with a hot snare. Resected and retrieved. - Diverticulosis in the sigmoid colon. - Non-bleeding internal hemorrhoids. - The examined portion of the ileum was normal. Biopsied. Recommendation: - Patient has a contact number available for emergencies. The signs and symptoms of potential delayed complications were discussed with the patient. Return to normal activities tomorrow. Written discharge instructions were provided to the patient. - Resume previous diet. - Continue present medications. - Repeat colonoscopy in 1 year for surveillance. - Return to referring physician as previously scheduled. Procedure Code(s): --- Professional --- 54144, Colonoscopy, flexible; with removal of tumor(s), polyp(s), or other lesion(s) by snare technique 40237, 59, Colonoscopy, flexible; with biopsy, single or multiple CPT copyright 2020 [employer]. All rights reserved. The codes documented in this report are preliminary and upon sheet metal duct installer review may be revised to meet current compliance requirements. Attending Participation: I joseph (more content not included)... [facility] Flexible sigmoidoscopy study on 12-29-2023 [facility] Patient Name: Douglas Callaway Procedure Date: 12/29/2023 11:06 AM Date of : 1955 Admit Type: Outpatient Age: 68 Room: [place] [address] Gender: Male Note Status: Finalized Attending MD: Naima Lee MD, [id number] Procedure: Colonoscopy Indications: Screening in patient at increased risk: Family history of 1st-degree relative with colorectal cancer Providers: Naima Lee MD Patient Profile: Refer to note in patient chart for documentation of history and physical. Last Colonoscopy: several years ago. Referring Physician: Karla Sauer (Referring MD) Medicines: Monitored Anesthesia Care Complications: No immediate complications. Requesting Provider: Procedure: Pre-Anesthesia Assessment: - Prior to the procedure, a History and Physical was performed, and patient medications and allergies were reviewed. The patient's tolerance of previous anesthesia was also reviewed. The risks and benefits of the procedure and the sedation options and risks were discussed with the patient. All questions were answered, and informed consent was obtained. Prior Anticoagulants: The patient has taken no anticoagulant or antiplatelet agents. ASA Grade Assessment: See anesthesia record. After reviewing the risks and benefits, the patient was deemed in satisfactory condition to undergo the procedure. After I obtained informed consent, the scope was passed under direct vision. Throughout the procedure, the patient's blood pressure, pulse, and oxygen saturations were monitored continuously. The Colonoscope was introduced through the anus and advanced to the terminal ileum. I was present and participated during the entire procedure, including non-gordillo portions, and during the administration and monitoring of Moderate Sedation. The colonoscopy was performed without difficulty. The patient tolerated the procedure well. The quality of the bowel preparation was excellent. The ileocecal valve, appendiceal orifice, and rectum were photographed. Moderate Sedation: MAC anesthesia was administered by the anesthesia team. Findings: The perianal and digital rectal examinations were normal. A localized area of mildly erythematous mucosa was found in the cecum. Biopsies were taken with a cold forceps for histology. The remaining colon mucosa appeared normal. Biopsies obtained from the left side of the colon to rule out microscopic colitis. Two semi-pedunculated polyps were found in the ascending colon. The polyps were 4 to 10 mm in size. These polyps were removed with a hot snare. Resection and retrieval were complete. Six sessile polyps were found in the transverse colon. The polyps were 5 to 20 mm in size. The larger polyp was removed in piecemeal with the aid of Endocuff. These polyps were removed with a hot snare. Resection and retrieval were complete. To prevent bleeding post-intervention, one hemostatic clip was successfully placed. A 9 mm polyp was found in the rectum. The polyp was semi-sessile. The polyp was removed with a hot snare. Resection and retrieval were complete. A few small-mouthed diverticula were found in the sigmoid colon. Non-bleeding internal hemorrhoids were found during retroflexion. The hemorrhoids were medium-sized. The exam was otherwise normal throughout the examined colon. The terminal ileum appeared normal. Biopsies were taken with a cold forceps for histology. Impression: - Erythematous mucosa in the cecum. Biopsied. - Two 4 to 10 mm polyps in the ascending colon, removed with a hot snare. Resected and retrieved. - Six 5 to 20 mm polyps in the transverse colon, removed with a hot snare. Resected and retrieved. Clip was placed. - One 9 mm polyp in the (more content not included)... [facility] Radiology Study observation (narrative) [facility] GLUCOSE, BLOOD (POC)on 12-28 Glucose [Mass/Vol] 138 mg/dL Abnormal 74 - 99 mg/dL [facility] Comment on above: Location:[facility] [address] , [place], [place], [address] The Accu-Chek Inform II glucose meter has not been approved for testing on patients receiving intensive medical intervention or therapy and results from this point of care glucose test should not be used for patient management decisions in these cases. Inaccurate results may also occur from other interfering factors, such as N-acetylcysteine (blood concentrations of greater than 5mg/dL), galactose, extremes of hematocrit (<10 or >65), or high doses of ascorbic acid (vitamin C) greater than 3mg/dL. Consider alternate testing mechanisms (e.g. core lab, blood gas instrument) in the above situations. Interpretation and review of laboratory results Abnormal [facility] HISTORY PHYSICALon HISTORY PHYSICAL HNO ID: [id number] Author: NAIMA LEE MD Service: Gastroenterology Author Type: Physician Type: H&P Filed: 12/29/2023 11:03 Note Text: Endoscopy pre-operative HANDP HANDP completed prior to the start time of the procedure. IMPRESSION AND PLAN HPI: This is a 68 year old male. For colonoscopy for chronic diarrhea. Pertinent Review of Systems: GI: See HPI All other reviewed and negative other than HPI. PAST MEDICAL HISTORY: PAST MEDICAL HISTORY Diagnosis Date Bipolar II disorder (HCC) CAD (coronary artery disease) 12/2019 CABG x 3 Carotid artery occlusion with cerebral infarction (HCC) pt denies this; CVA was secondary to HTN CVA (cerebral vascular accident) (HCC) 2003 related to untreated HTN; no residual effects Depression Elevated LFTs Gastroparesis POP procedure 06/11/21 GERD (gastroesophageal reflux disease) Hepatitis A 09/2018 Resolved HTN (hypertension) Hyperlipemia Insomnia CABRERA (obstructive sleep apnea) does not currently have a CPAP Osteoporoses Renal insufficiency TIA (transient ischemic attack) prior to CVA in 2003, none since Type 2 diabetes mellitus (HCC) 2018 Iván Case PCP PAST SURGICAL HISTORY: PAST SURGICAL HISTORY Procedure Laterality Date COLONOSCOPY GEN ANES 09/2017 normal per patient CORONARY ART/GRFT ANGIO ARIADNA 12/15/2019 [facility] ; CABG x 3 EGD 08/2020 at [facility] EGD WITH BIOPSY(S) 05/13/2023 Dr. Fajardo ERCP STENT PLACEMENT BILIARY/PANCREATIC DUCT 09/02/2021 Dr Yarbrough GI TRANSIT AND PRES CARLEY WIRELESS CAPSULE W/INTERP 01/08/2021 Smart Pill-delayed gastric emptying; INCISIONAL BIOPSY SKIN SINGLE LESION biopsy of mass over right eye; benign LAPAROSCOPIC CHOLECYSTECTOMY 09/02/2021 PER ORAL PYLOROMYOTOMY (POP) PROCEDURE (COMP [id number]) 06/11/2021 Dr. Bray REMV CATARACT EXTRACAP,INSERT LENS Bilateral 2015 SHOULDER SURGERY HX TONSILLECTOMY HX OBJECTIVE: PHYSICAL EXAM: VITALS: There were no vitals taken for this visit. General appearance: AANDOx3 Respiratory: Normal chest expansion. No audible wheezes. CVS: No shortness of breath, no extremity edema. Regular pulse. Plan: OK to proceed with endoscopy. SIGNATURE: Naima Lee MD PATIENT NAME: Douglas Callaway JR Normal [facility] SURGICAL PATHOLOGYon 024 CASE REPORT Normal [facility] Comment on above: Order Comment: Speci men Type: TISSUE SPECIMENOrdering Facility: [facility] Address: [address] [place] [address] Result Comment: Surg ica Pathology Report Case: [id number] Authorizing Provider: Naima Lee MD Collected: 12/29/2023 11:38 AM Ordering Location: Ambulatory Surgery Received: 12/29/2023 07:26 PM Pathologist: Ariane Garrido MD Specimens: A) - Colon, Transverse, Polyp, X6 r/o adenoma B) - Small Bowel, Terminal Ileum, Biopsy, r/o inflammation C) - Colon, Right, Biopsy, r/o inflammation D) - Colon, Ascending Polyp, X2 E) - Colon, Left, Biopsy, r/o inflammation F) - Rectum, Polyp, r/o adenoma Performed By: #### S ####[facility] LABCLIA [id number] [address] [place] FINAL DIAGNOSIS Normal [facility] Comment on above: Order Comment: Speci men Type: TISSUE SPECIMENOrdering Facility: [facility] Address: [address] [place] [address] Result Comment: A. T ransverse colon, polyp x 6, biopsy: -Fragments of tubular adenoma B. Small bowel, terminal ileum, biopsy: -Small intestinal mucosa with no diagnostic alteration C. Right colon, biopsy: -Colonic mucosa with no diagnostic alteration -No evidence of microscopic colitis D. Ascending colon, polyp, biopsy: X 2 -Fragments of tubular adenoma E. Left colon, biopsy: -Colonic mucosa with no diagnostic alteration -No evidence of microscopic colitis F. Rectum, polyp, biopsy: -Fragments of tubular adenoma Performed By: #### S ####[facility] LABCLIA [id number] [place] [address] [place] FINAL PERFORMING LAB Normal [facility] Comment on above: Order Comment: Speci men Type: TISSUE SPECIMENOrdering Facility: [facility] Address: [address] [place] [address] Result Comment: Diag nostic interpretation performed at [facility], [address] [place] [address] CLIA# [id number] Exhibitions And Collections Manager: Mitch Lopez M.D. Performed By: #### S ####[facility] LABCLIA [id number] [address] STATES OF [facility] GROSS DESCRIPTION Normal [facility] Comment on above: Order Comment: Speci men Type: TISSUE SPECIMENOrdering Facility: [facility] Address: [address] [place] [address] Result Comment: A. C olon, Transverse, Polyp Received in formalin are multiple segments of manuel polypoid tissue ranging in size from 0.6 x 0.4 x 0.4 cm to 0.2 x 0.2 x 0.2 cm. No stalks are noted. The lines of resections are noted. The larger specimens are bisected. The smaller specimens are not sectioned. Totally submitted in formalin in seven cassettes. B. Small Bowel, Terminal Ileum, Biopsy Received in formalin are multiple pieces of manuel, soft tissue aggregating to 0.8 x 0.3 x 0.2 cm. Totally submitted in one cassette. C. Colon, Right, Biopsy Received in formalin are multiple pieces of manuel, soft tissue aggregating to 0.8 x 0.2 x 0.2 cm. Totally submitted in one cassette. D. Colon, Ascending Polyp Received in formalin are two pieces of manuel, soft tissue aggregating to 0.4 x 0.1 x 0.1 cm. Totally submitted in one cassette. E. Colon, Left, Biopsy Received in formalin are two pieces of manuel, soft tissue aggregating to 0.7 x 0.3 x 0.2 cm. Totally submitted in one cassette. F. Rectum, Polyp Received in formalin are multiple segments of manuel polypoid tissue ranging in size from 0.7 x 0.6 x 0.2 cm to 0.1 x 0.1 x 0.1 cm. No stalks are noted. The lines of resections are noted. The larger specimens are bisected. The smaller specimens are not sectioned. Totally submitted in formalin in five cassettes. SS December 29, 2023 11:19 PM Gross examination performed at [facility], [address] [place] [place] [address] Performed By: #### S ####[facility] LABCLIA [id number] [id number] [address] [place] CNCOon 12-23-2023 CNCO Letter Text Normal [facility] CNTHERAPYon 12-15-2023 CNTHERAPY OT/PT/Speech Visit ( PTMDRG) DOUGLAS CALLAWAY JR ([id number]) 1955 M Date Time Provider Department 12/15/23 1:30 PM ELBA SAMANIEGO PTMSOTERO Date Time Provider Department Center 12/15/2023 1:30 PM [id number] SAMANIEGO PTMSOTERO [facility] Reason for Visit: PT Progress Note [1596] Primary Visit Diagnosis:Diabetes mellitus without complication (HCC) [E11.9] Other Visit Diagnoses:Weakness of both lower extremities [R29.898] Abnormality of gait [R26.9] Imbalance [R26.89] Allergies As of Date: 12/15/2023 (No Known Allergies) Date Reviewed: 10/26/2023 Reviewed by: Ross Dimas MA - Fully Assessed Prescriptions as of 01/05/2024 - dapagliflozin propanediol (FARXIGA) 10 mg tablet Take 1 tablet by mouth every afternoon. - dapagliflozin propanediol (FARXIGA) 10 mg tablet - pantoprazole DR (PROTONIX) 40 mg tablet take 1 tablet by mouth twice a day - jmwtry-kxsuizob-qkjczwa (CREON 36) 36,000-114,000- 180,000 unit delayed release capsule Take 2 caps by mouth 3 times daily with meals and 1 cap with each snack. Take 1st cap before meal starts and the 2nd cap intermediate through. - primidone (MYSOLINE) 50 mg tablet Take 1 tablet by mouth every afternoon. - JARDIANCE 10 mg tablet Take 1 tablet by mouth every afternoon. - ondansetron (ZOFRAN) 4 mg tablet Take 1 tablet by mouth once daily as needed for nausea/vomiting (for nausea.). - amoxicillin (AMOXIL) 500 mg capsule - amoxicillin-clavulanic acid (AUGMENTIN) 875-125 mg per tablet Take by mouth. - atorvastatin (LIPITOR) 80 mg tablet Take 1 tablet by mouth every evening. - dorzolamide (TRUSOPT) 2 % ophthalmic solution Use in eyes. - doxycycline hyclate (VIBRAMYCIN) 100 mg capsule Take by mouth. - losartan (COZAAR) 50 mg tablet Take 1 tablet by mouth every afternoon. - aspirin, enteric coated (JAILENE LOW DOSE ASPIRIN) 81 mg EC tablet Take by mouth. - lamoTRIgine (LAMICTAL) 100 mg tablet take 1/2 tablet by mouth once daily to BE TAKEN ALONG WITH 200 MN... (REFER TO PRESCRIPTION NOTES). - rosuvastatin (CRESTOR) 10 mg tablet Take 10 mg by mouth every evening. - lamoTRIgine ER (LAMICTAL XR) 250 mg 24 hr tablet Take by mouth once daily. - doxepin capsule 10 mg Take 10 mg by mouth as needed. - alendronate (FOSAMAX) 70 mg tablet Take 70 mg by mouth one time a week. In AM with cup of water on empty stomach. Nothing else by mouth and stay upright for 30 min. - oxyCODONE-acetaminophen (PERCOCET) 5-325 mg tablet Take 1-2 tablets by mouth every 8 hours as needed for pain. - ondansetron (ZOFRAN) 4 mg tablet take 1 tablet by mouth every 8 hours if needed for nausea - cyanocobalamin, vitamin B-12, (VITAMIN B12 ORAL) Take 1 tablet by mouth once daily. - cholecalciferol, vitamin D3, (VITAMIN D3 ORAL) Take 1 capsule by mouth once daily. - aspirin (JAILENE CHEWABLE ASPIRIN) 81 mg chewable tablet Take 81 mg by mouth once daily. - amLODIPine (NORVASC) 10 mg tablet Take 10 mg by mouth once daily. - dorzolamide-timolol (COSOPT) 22.3-6.8 mg/mL ophthalmic solution Use 1 Drop in both eyes twice daily. - DULoxetine (CYMBALTA) 60 mg capsule Take 60 mg by mouth once daily. - metFORMIN (GLUCOPHAGE) 1,000 mg tablet Take 1,000 mg by mouth twice daily with meals. - rosuvastatin (CRESTOR) 40 mg tablet Take 40 mg by mouth daily at bedtime. - metoprolol tartrate 75 mg tab Take 75 mg by mouth twice daily. Facility-Administered Medications as of 01/05/2024 - lidocaine (PF) 10 mg/mL (1 %) 1-2 mg injection (XYLOCAINE) - lactated ringers iv infusion [facility] PRE-OPon 12-14-2023 [facility] PRE-OP HNO ID: [id number] Author: TIFFANIE HOPPER APRN.CRNA Service: Anesthesiology Author Type: Nurse Language Assistant Type: Anesthesia Preprocedure Evaluation Filed: 12/29/2023 11:16 Note Text: ANESTHESIOLOGY DAY OF SURGERY NOTE : 1955 Procedure Information Date/Time: 12/29/23 1100 Scheduled providers: Naima Lee MD Procedure: COLONOSCOPY DIAGNOSTIC Location: Ambulatory Surgery Estimated body mass index is 24.37 kg/m? as calculated from the following: Height as of 10/26/23: 172.7 cm (5' 8). Weight as of 10/26/23: 72.7 kg (160 lb 4.4 oz). Most recent hematocrit and potassium results: Hematocrit 39.3 09/16/2023 Potassium 4.2 09/16/2023 Relevant Problems ANESTHESIA (+) CABRERA (obstructive sleep apnea) CARDIO (+) Hypertension PULMONARY (+) CABRERA (obstructive sleep apnea) Gastroparisis CABG X3 TIA 2003 with no residual I - PHYSICAL EVALUATION AIRWAY Patient intubated: No. Tracheostomy tube not present Mallampati: II. TM distance: >3 FB. Neck ROM: full ROM without neurological symptoms. Mouth opening: adequate. Short neck: no. Thick neck: no DENTAL Dental findings: poor dentition and missing tooth/teeth. Additional exam findings: no II - ANESTHESIA PLAN ASA Score: 3 Anesthetic Plan: MAC The patient is not a current smoker. NPO Status: adequate Beta Bridgett Monitoring Plan Monitoring plan: standard ASA. Post Procedure Analgesic Plan Postoperative analgesic plan: parenteral or oral opioids and multimodal analgesia. Informed Consent Anesthetic risks, benefits, alternatives, personnel and consent discussed: yes. Patient / Responsible Green Party agrees to proceed: yes Patient / Surrogate agrees to blood products: blood products not planned Significant changes in the patient condition since the History and Physical, not otherwise documented in primary service progress note: no. Potential Anesthesia issues that may suggest increased risk of complications or contraindication to planned procedure: none. No vitals data found for the desired time range. Outpatient Medications as of 12/29/2023 Medication Sig - pantoprazole DR (PROTONIX) 40 mg tablet take 1 tablet by mouth twice a day - aivhaz-rvvpcsra-qhbqfgv (CREON 36) 36,000-114,000- 180,000 unit delayed release capsule Take 2 caps by mouth 3 times daily with meals and 1 cap with each snack. Take 1st cap before meal starts and the 2nd cap intermediate through. - primidone (MYSOLINE) 50 mg tablet Take 1 tablet by mouth every afternoon. - JARDIANCE 10 mg tablet Take 1 tablet by mouth every afternoon. - ondansetron (ZOFRAN) 4 mg tablet Take 1 tablet by mouth once daily as needed for nausea/vomiting (for nausea.). - amoxicillin (AMOXIL) 500 mg capsule - amoxicillin-clavulanic acid (AUGMENTIN) 875-125 mg per tablet Take by mouth. (Patient not taking: Reported on 10/26/2023) - atorvastatin (LIPITOR) 80 mg tablet Take 1 tablet by mouth every evening. (Patient not taking: Reported on 09/21/2023) - dorzolamide (TRUSOPT) 2 % ophthalmic solution Use in eyes. (Patient not taking: Reported on 10/26/2023) - doxycycline hyclate (VIBRAMYCIN) 100 mg capsule Take by mouth. (Patient not taking: Reported on 05/13/2023) - losartan (COZAAR) 50 mg tablet Take 1 tablet by mouth every afternoon. - aspirin, enteric coated (JAILENE LOW DOSE ASPIRIN) 81 mg EC tablet Take by mouth. - lamoTRIgine (LAMICTAL) 100 mg tablet take 1/2 tablet by mouth once daily to BE TAKEN ALONG WITH 200 MN... (REFER TO PRESCRIPTION NOTES). - rosuvastatin (CRESTOR) 10 mg tablet Take 10 mg by mouth every evening. (Patient not taking: Reported on 10/26/2023) - lamoTRIgine ER (LAMICTAL XR) 250 mg 24 hr tablet Take by mouth once daily. - doxepin capsule 10 mg Take 10 mg by mouth as needed. - alendronate (FOSAMAX) 70 mg tablet Take 70 mg by mouth one time a week. In AM with cup of water on empty stomach. Nothing else by mouth and stay upright for 30 min. - oxyCODONE-acetaminophen (PERCOCET) 5-325 mg tablet Take 1-2 tablets by mouth every 8 hours as needed for pain. (Patient not taking: Reported on 09/19/2021) - ondansetron (ZOFRAN) 4 mg tablet take 1 tablet by mouth every 8 hours if needed for nausea (Patient not taking: No sig reported) - cyanocobalamin, vitamin B-12, (VITAMIN B12 ORAL) Take 1 tablet by mouth once daily. - cholecalciferol, vitamin D3, (VITAMIN D3 ORAL) Take 1 capsule by mouth once daily. - aspirin (JAILENE CHEWABLE ASPIRIN) 81 mg chewable tablet Take 81 mg by mouth once daily. (Patient not taking: Reported on 09/21/2023) - amLODIPine (NORVASC) 10 mg tablet Take 10 mg by mouth once daily. (Patient not taking: Reported on 06/10/2023) - dorzolamide-timolol (COSOPT) 22.3-6.8 mg/mL ophthalmic solution Use 1 Drop in both eyes twice daily. - DULoxetine (CYMBALTA) 60 mg capsule Take 60 mg by mouth once daily. - metFORMIN (GLUCOPHAGE) 1,000 mg tablet Take 1,000 mg by mouth twice daily with meals. - rosuvastatin (CRESTOR) 40 (more content not included)... Normal [facility] CNTHERAPYon 04--2024 CNTHERAPY OT/PT/Speech Visit ( PTMDRG) DOUGLAS CALLAWAY JR ([id number]) 1955 M Date Time Provider Department 12/09/23 1:15 PM MARÍA OROSCO PTMDRG Date Time Provider Department [place] 12/09/2023 1:15 PM [id number] OROSCO PTMDRG [facility] Reason for Visit: Physical Therapy [503] Primary Visit Diagnosis:Diabetes mellitus without complication (HCC) [E11.9] Other Visit Diagnoses:Weakness of both lower extremities [R29.898] Abnormality of gait [R26.9] Imbalance [R26.89] Allergies As of Date: 12/09/2023 (No Known Allergies) Date Reviewed: 10/26/2023 Reviewed by: Ross Dimas MA - Fully Assessed Prescriptions as of 12/09/2023 - pantoprazole DR (PROTONIX) 40 mg tablet take 1 tablet by mouth twice a day - lvrjmx-zdgvtvhx-torjjvg (CREON 36) 36,000-114,000- 180,000 unit delayed release capsule Take 2 caps by mouth 3 times daily with meals and 1 cap with each snack. Take 1st cap before meal starts and the 2nd cap intermediate through. - primidone (MYSOLINE) 50 mg tablet Take 1 tablet by mouth every afternoon. - JARDIANCE 10 mg tablet Take 1 tablet by mouth every afternoon. - ondansetron (ZOFRAN) 4 mg tablet Take 1 tablet by mouth once daily as needed for nausea/vomiting (for nausea.). - amoxicillin (AMOXIL) 500 mg capsule - amoxicillin-clavulanic acid (AUGMENTIN) 875-125 mg per tablet Take by mouth. - atorvastatin (LIPITOR) 80 mg tablet Take 1 tablet by mouth every evening. - dorzolamide (TRUSOPT) 2 % ophthalmic solution Use in eyes. - doxycycline hyclate (VIBRAMYCIN) 100 mg capsule Take by mouth. - losartan (COZAAR) 50 mg tablet Take 1 tablet by mouth every afternoon. - aspirin, enteric coated (JAILENE LOW DOSE ASPIRIN) 81 mg EC tablet Take by mouth. - lamoTRIgine (LAMICTAL) 100 mg tablet take 1/2 tablet by mouth once daily to BE TAKEN ALONG WITH 200 MN... (REFER TO PRESCRIPTION NOTES). - rosuvastatin (CRESTOR) 10 mg tablet Take 10 mg by mouth every evening. - lamoTRIgine ER (LAMICTAL XR) 250 mg 24 hr tablet Take by mouth once daily. - doxepin capsule 10 mg Take 10 mg by mouth as needed. - alendronate (FOSAMAX) 70 mg tablet Take 70 mg by mouth one time a week. In AM with cup of water on empty stomach. Nothing else by mouth and stay upright for 30 min. - oxyCODONE-acetaminophen (PERCOCET) 5-325 mg tablet Take 1-2 tablets by mouth every 8 hours as needed for pain. - ondansetron (ZOFRAN) 4 mg tablet take 1 tablet by mouth every 8 hours if needed for nausea - cyanocobalamin, vitamin B-12, (VITAMIN B12 ORAL) Take 1 tablet by mouth once daily. - cholecalciferol, vitamin D3, (VITAMIN D3 ORAL) Take 1 capsule by mouth once daily. - aspirin (JAILENE CHEWABLE ASPIRIN) 81 mg chewable tablet Take 81 mg by mouth once daily. - amLODIPine (NORVASC) 10 mg tablet Take 10 mg by mouth once daily. - dorzolamide-timolol (COSOPT) 22.3-6.8 mg/mL ophthalmic solution Use 1 Drop in both eyes twice daily. - DULoxetine (CYMBALTA) 60 mg capsule Take 60 mg by mouth once daily. - metFORMIN (GLUCOPHAGE) 1,000 mg tablet Take 1,000 mg by mouth twice daily with meals. - rosuvastatin (CRESTOR) 40 mg tablet Take 40 mg by mouth daily at bedtime. - metoprolol tartrate 75 mg tab Take 75 mg by mouth twice daily. 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 and working on turning in 8 steps - 1 x daily - 7 x weekly - 3 sets - 10 reps - Sit to Stand - 1 x daily - 7 x weekly - 3 sets - 10 reps - Supine Bridge - 1 x daily - x weekly - 2 sets - 10 reps - Sidelying Hip Abduction - 1 x daily - 7 x weekly - 3 sets - 10 reps - standing hip abduction with looking up and holding on to counter - 1 x daily - 7 x weekly - 3 sets - 10 reps - Mini Squat with Counter Support - 1 x daily - 7 x weekly - 1-2 sets - 10 reps - Tandem Stance with Support - 1 x daily - x weekly - 2 sets - 3 reps - Single Leg Stance with Support - 1 x daily - x weekly - 2 sets - 3 reps [facility] THERAPY NTon 12-09-2023 THERAPY NT HNO ID: [id number] Author: MARÍA OROSCO PTA Service: ? Author Type: Technical Services Manager Type: Therapy (PT/OT/Speech/Resp) Filed: 12/09/2023 14:01 Note Text: Program_ID:[id number] Access Code: [email or web address] URL: [email or web address] Date: 12-09-2023 Prepared By: Karla Castro Program Notes Add walking for 20 minutes a day when able Exercises - 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 and working on turning in 8 steps - 1 x daily - 7 x weekly - 3 sets - 10 reps - Sit to Stand - 1 x daily - 7 x weekly - 3 sets - 10 reps - Supine Bridge - 1 x daily - x weekly - 2 sets - 10 reps - Sidelying Hip Abduction - 1 x daily - 7 x weekly - 3 sets - 10 reps - standing hip abduction with looking up and holding on to counter - 1 x daily - 7 x weekly - 3 sets - 10 reps - Mini Squat with Counter Support - 1 x daily - 7 x weekly - 1-2 sets - 10 reps - Tandem Stance with Support - 1 x daily - x weekly - 2 sets - 3 reps - Single Leg Stance with Support - 1 x daily - x weekly - 2 sets - 3 reps Normal [facility] CNTHERAPYon 11-29-2023 CNTHERAPY OT/PT/Speech Visit ( PTMDRG) DOUGLAS CALLAWAY JR ([id number]) 1955 M Date Time Provider Department 11/29/23 1:00 PM MARÍA OROSCO PTMG Date Time Provider Department Center 11/29/2023 1:00 PM [id number] OROSCO PTMG [facility] Reason for Visit: Physical Therapy [503] Primary Visit Diagnosis:Diabetes mellitus without complication (HCC) [E11.9] Other Visit Diagnoses:Weakness of both lower extremities [R29.898] Abnormality of gait [R26.9] Imbalance [R26.89] Allergies As of Date: 11/29/2023 (No Known Allergies) Date Reviewed: 10/26/2023 Reviewed by: Ross Dimas MA - Fully Assessed Prescriptions as of 11/29/2023 - pantoprazole DR (PROTONIX) 40 mg tablet take 1 tablet by mouth twice a day - kxsgcp-kvzrqnjm-iiiqldg (CREON 36) 36,000-114,000- 180,000 unit delayed release capsule Take 2 caps by mouth 3 times daily with meals and 1 cap with each snack. Take 1st cap before meal starts and the 2nd cap intermediate through. - primidone (MYSOLINE) 50 mg tablet Take 1 tablet by mouth every afternoon. - JARDIANCE 10 mg tablet Take 1 tablet by mouth every afternoon. - ondansetron (ZOFRAN) 4 mg tablet Take 1 tablet by mouth once daily as needed for nausea/vomiting (for nausea.). - amoxicillin (AMOXIL) 500 mg capsule - amoxicillin-clavulanic acid (AUGMENTIN) 875-125 mg per tablet Take by mouth. - atorvastatin (LIPITOR) 80 mg tablet Take 1 tablet by mouth every evening. - dorzolamide (TRUSOPT) 2 % ophthalmic solution Use in eyes. - doxycycline hyclate (VIBRAMYCIN) 100 mg capsule Take by mouth. - losartan (COZAAR) 50 mg tablet Take 1 tablet by mouth every afternoon. - aspirin, enteric coated (JAILENE LOW DOSE ASPIRIN) 81 mg EC tablet Take by mouth. - lamoTRIgine (LAMICTAL) 100 mg tablet take 1/2 tablet by mouth once daily to BE TAKEN ALONG WITH 200 MN... (REFER TO PRESCRIPTION NOTES). - rosuvastatin (CRESTOR) 10 mg tablet Take 10 mg by mouth every evening. - lamoTRIgine ER (LAMICTAL XR) 250 mg 24 hr tablet Take by mouth once daily. - doxepin capsule 10 mg Take 10 mg by mouth as needed. - alendronate (FOSAMAX) 70 mg tablet Take 70 mg by mouth one time a week. In AM with cup of water on empty stomach. Nothing else by mouth and stay upright for 30 min. - oxyCODONE-acetaminophen (PERCOCET) 5-325 mg tablet Take 1-2 tablets by mouth every 8 hours as needed for pain. - ondansetron (ZOFRAN) 4 mg tablet take 1 tablet by mouth every 8 hours if needed for nausea - cyanocobalamin, vitamin B-12, (VITAMIN B12 ORAL) Take 1 tablet by mouth once daily. - cholecalciferol, vitamin D3, (VITAMIN D3 ORAL) Take 1 capsule by mouth once daily. - aspirin (JAILENE CHEWABLE ASPIRIN) 81 mg chewable tablet Take 81 mg by mouth once daily. - amLODIPine (NORVASC) 10 mg tablet Take 10 mg by mouth once daily. - dorzolamide-timolol (COSOPT) 22.3-6.8 mg/mL ophthalmic solution Use 1 Drop in both eyes twice daily. - DULoxetine (CYMBALTA) 60 mg capsule Take 60 mg by mouth once daily. - metFORMIN (GLUCOPHAGE) 1,000 mg tablet Take 1,000 mg by mouth twice daily with meals. - rosuvastatin (CRESTOR) 40 mg tablet Take 40 mg by mouth daily at bedtime. - metoprolol tartrate 75 mg tab Take 75 mg by mouth twice daily. [facility] CNTHERAPYon 11-24-2023 CNTHERAPY OT/PT/Speech Visit ( PTMDRG) DOUGLAS CALLAWAY JR ([id number]) 1955 M Date Time Provider Department 11/24/23 5:00 PM MARÍA OROSCO PTMSOTERO Date Time Provider Department Center 11/24/2023 5:00 PM [id number] OROSCO PTMG [facility] Reason for Visit: Physical Therapy [503] Primary Visit Diagnosis:Diabetes mellitus without complication (HCC) [E11.9] Other Visit Diagnoses:Weakness of both lower extremities [R29.898] Abnormality of gait [R26.9] Imbalance [R26.89] Allergies As of Date: 11/24/2023 (No Known Allergies) Date Reviewed: 10/26/2023 Reviewed by: Ross Dimas MA - Fully Assessed Prescriptions as of 11/24/2023 - pantoprazole DR (PROTONIX) 40 mg tablet take 1 tablet by mouth twice a day - ydmpgl-zqmleowy-qbzocpc (CREON 36) 36,000-114,000- 180,000 unit delayed release capsule Take 2 caps by mouth 3 times daily with meals and 1 cap with each snack. Take 1st cap before meal starts and the 2nd cap intermediate through. - primidone (MYSOLINE) 50 mg tablet Take 1 tablet by mouth every afternoon. - JARDIANCE 10 mg tablet Take 1 tablet by mouth every afternoon. - ondansetron (ZOFRAN) 4 mg tablet Take 1 tablet by mouth once daily as needed for nausea/vomiting (for nausea.). - amoxicillin (AMOXIL) 500 mg capsule - amoxicillin-clavulanic acid (AUGMENTIN) 875-125 mg per tablet Take by mouth. - atorvastatin (LIPITOR) 80 mg tablet Take 1 tablet by mouth every evening. - dorzolamide (TRUSOPT) 2 % ophthalmic solution Use in eyes. - doxycycline hyclate (VIBRAMYCIN) 100 mg capsule Take by mouth. - losartan (COZAAR) 50 mg tablet Take 1 tablet by mouth every afternoon. - aspirin, enteric coated (JAILENE LOW DOSE ASPIRIN) 81 mg EC tablet Take by mouth. - lamoTRIgine (LAMICTAL) 100 mg tablet take 1/2 tablet by mouth once daily to BE TAKEN ALONG WITH 200 MN... (REFER TO PRESCRIPTION NOTES). - rosuvastatin (CRESTOR) 10 mg tablet Take 10 mg by mouth every evening. - lamoTRIgine ER (LAMICTAL XR) 250 mg 24 hr tablet Take by mouth once daily. - doxepin capsule 10 mg Take 10 mg by mouth as needed. - alendronate (FOSAMAX) 70 mg tablet Take 70 mg by mouth one time a week. In AM with cup of water on empty stomach. Nothing else by mouth and stay upright for 30 min. - oxyCODONE-acetaminophen (PERCOCET) 5-325 mg tablet Take 1-2 tablets by mouth every 8 hours as needed for pain. - ondansetron (ZOFRAN) 4 mg tablet take 1 tablet by mouth every 8 hours if needed for nausea - cyanocobalamin, vitamin B-12, (VITAMIN B12 ORAL) Take 1 tablet by mouth once daily. - cholecalciferol, vitamin D3, (VITAMIN D3 ORAL) Take 1 capsule by mouth once daily. - aspirin (JAILENE CHEWABLE ASPIRIN) 81 mg chewable tablet Take 81 mg by mouth once daily. - amLODIPine (NORVASC) 10 mg tablet Take 10 mg by mouth once daily. - dorzolamide-timolol (COSOPT) 22.3-6.8 mg/mL ophthalmic solution Use 1 Drop in both eyes twice daily. - DULoxetine (CYMBALTA) 60 mg capsule Take 60 mg by mouth once daily. - metFORMIN (GLUCOPHAGE) 1,000 mg tablet Take 1,000 mg by mouth twice daily with meals. - rosuvastatin (CRESTOR) 40 mg tablet Take 40 mg by mouth daily at bedtime. - metoprolol tartrate 75 mg tab Take 75 mg by mouth twice daily. [facility] [id number] 11-18-2023 [id number] O ID: [id number] Author: KARLA CASTRO PT, EMELINAT Service: ? Author Type: Physical Therapist Type: [id number] Filed: 11/18/2023 15:53 Note Text: [facility] Physical Therapy Plan of Care Certification Patient Name: Douglas Callaway JR : 1955 CC #: [id number] Date: 11/18/2023 To: Sheryl Bassett MD From Therapist: Karla Castro PT, DPT RE: Patient Certification/ Recertification Your review, approval and electronic signature are required in order to comply with Payor: MEDICARE / Plan: MEDICARE A AND B / Product Type: Medicare / regulations. The identified Physical Therapy PLAN OF CARE for the patient is as follows: E11.9 Diabetes mellitus without complication (HCC) (primary encounter diagnosis) R29.898 Weakness of both lower extremities R26.9 Abnormality of gait R26.89 Imbalance PLAN OF CARE UPDATE: Assessment: Douglas Callaway JR demonstrates minimal improvement in ambulation, however today he is not having a good day. He has met 1 goals and progressed toward other goals. Patient continues to present with impairments in balance, gait, overall function, and posture that interfere with stair negotiation (EC in the shower, better ability to dress (less frequent difficulty)) . Current prognosis is fair secondary to clinical presentation, however does have potential to improve . Worked on turning today and pt does require increased time to process which way to turn. He also needs cues to relax right arm with ambulation. He will benefit from continued skilled therapy services to meet the updated goals for this plan of care as noted below. Goals for Episode of Care: updated 11/18/2023 Patient will perform sit to stand transfers with modified independence without hands.-met Patient will ambulate with least restrictive device with modified independence and no LOB.- progressing well in the house, still uses cane outside Patient will demonstrate current home exercise program independently. -progressing Patient will complete 10 reps on 30 second chair stand test to decrease risk of falls.- progressing (able to perform 2 more) Improve score on Timed Up and Go to by 3 sec to demonstrate MCID.- met Improve tandem stance on 4 stage balance test to = or >10 seconds to decrease risk for falls.-progressing well, almost met Verbalize decrease in fall frequency (from 8 in 1 month)- met Be able to maintain SLS B for 20 seconds -progressing 6 minute walk test -performed test, increase to being able to perform >1000 feet in 6 months Patient Goals: Improve typing. Fall less. Better strength. -met for typing, Since starting therapy has had 2 falls since starting therapy Planned Interventions, Frequency, and Duration: 1x/week, 4 weeks Total Number of Visits Planned: 4 Patient to be seen for Therapeutic exercise (60596), Neuromuscular re-education (31650), Manual therapy (03830), Therapeutic activities (79073), Self-custodial management (50701), Gait Training (20018), Patient/Family/Caregiver Education PLAN FOR NEXT VISIT: Work on stair safety, balance. LE strengthening, turning For further details regarding this patient refer to the Physical Therapy electronically documented visit dated 11/18/2023. Provider Attestation I have reviewed the treatment plan for Douglas Callaway JR, CCF# [id number] for the period of 11/07/23 -- 12/18/23, established on 11/18/2023. Signature certifies the need for therapy services. [facility] CNTHERAPYon 11-18-2023 CNTHERAPY OT/PT/Speech Visit ( PTMDRG) DOUGLAS CALLAWAY JR ([id number]) 1955 M Date Time Provider Department 11/18/23 2:00 PM KARLA CASTRO PTMG Date Time Provider Department Center 11/18/2023 2:00 PM [id number] CASTRO PTMDRG [facility] Reason for Visit: PT Progress Note [1596] Primary Visit Diagnosis:Diabetes mellitus without complication (HCC) [E11.9] Other Visit Diagnoses:Weakness of both lower extremities [R29.898] Abnormality of gait [R26.9] Imbalance [R26.89] Allergies As of Date: 11/18/2023 (No Known Allergies) Date Reviewed: 10/26/2023 Reviewed by: Ross Dimas MA - Fully Assessed Prescriptions as of 11/18/2023 - pantoprazole DR (PROTONIX) 40 mg tablet take 1 tablet by mouth twice a day - qcqctn-guivijmm-ksbxwjw (CREON 36) 36,000-114,000- 180,000 unit delayed release capsule Take 2 caps by mouth 3 times daily with meals and 1 cap with each snack. Take 1st cap before meal starts and the 2nd cap intermediate through. - primidone (MYSOLINE) 50 mg tablet Take 1 tablet by mouth every afternoon. - JARDIANCE 10 mg tablet Take 1 tablet by mouth every afternoon. - ondansetron (ZOFRAN) 4 mg tablet Take 1 tablet by mouth once daily as needed for nausea/vomiting (for nausea.). - amoxicillin (AMOXIL) 500 mg capsule - amoxicillin-clavulanic acid (AUGMENTIN) 875-125 mg per tablet Take by mouth. - atorvastatin (LIPITOR) 80 mg tablet Take 1 tablet by mouth every evening. - dorzolamide (TRUSOPT) 2 % ophthalmic solution Use in eyes. - doxycycline hyclate (VIBRAMYCIN) 100 mg capsule Take by mouth. - losartan (COZAAR) 50 mg tablet Take 1 tablet by mouth every afternoon. - aspirin, enteric coated (JAILENE LOW DOSE ASPIRIN) 81 mg EC tablet Take by mouth. - lamoTRIgine (LAMICTAL) 100 mg tablet take 1/2 tablet by mouth once daily to BE TAKEN ALONG WITH 200 MN... (REFER TO PRESCRIPTION NOTES). - rosuvastatin (CRESTOR) 10 mg tablet Take 10 mg by mouth every evening. - lamoTRIgine ER (LAMICTAL XR) 250 mg 24 hr tablet Take by mouth once daily. - doxepin capsule 10 mg Take 10 mg by mouth as needed. - alendronate (FOSAMAX) 70 mg tablet Take 70 mg by mouth one time a week. In AM with cup of water on empty stomach. Nothing else by mouth and stay upright for 30 min. - oxyCODONE-acetaminophen (PERCOCET) 5-325 mg tablet Take 1-2 tablets by mouth every 8 hours as needed for pain. - ondansetron (ZOFRAN) 4 mg tablet take 1 tablet by mouth every 8 hours if needed for nausea - cyanocobalamin, vitamin B-12, (VITAMIN B12 ORAL) Take 1 tablet by mouth once daily. - cholecalciferol, vitamin D3, (VITAMIN D3 ORAL) Take 1 capsule by mouth once daily. - aspirin (JAILENE CHEWABLE ASPIRIN) 81 mg chewable tablet Take 81 mg by mouth once daily. - amLODIPine (NORVASC) 10 mg tablet Take 10 mg by mouth once daily. - dorzolamide-timolol (COSOPT) 22.3-6.8 mg/mL ophthalmic solution Use 1 Drop in both eyes twice daily. - DULoxetine (CYMBALTA) 60 mg capsule Take 60 mg by mouth once daily. - metFORMIN (GLUCOPHAGE) 1,000 mg tablet Take 1,000 mg by mouth twice daily with meals. - rosuvastatin (CRESTOR) 40 mg tablet Take 40 mg by mouth daily at bedtime. - metoprolol tartrate 75 mg tab Take 75 mg by mouth twice daily. [facility] 11-15-2023 [facility] Telephone (AGGASTACC ) DOUGLAS CALLAWAY JR ([id number]) 1955 M Date Time Provider Department 11/15/23 NAIMA LEE AGGASTACC During your visit today, we recorded the following information about you: Pravin Mukherjee 11/15/2023 11:24 AM Signed Surgery Checklist Type: colon Admission Type: outpatient Anesthesia: MAC Date: 12/29/2023 Arrival Time: 10:00am Surgery Time: 11:00am Location: [place] Spoke with patient- sending colon prep instruction through my chart Pravin Mukherjee Allergies As of Date: 11/15/2023 (No Known Allergies) Date Reviewed: 10/26/2023 Reviewed by: Ross Dimas MA - Fully Assessed Reason for Visit: Appointment [186] Prescriptions as of 11/15/2023 - pantoprazole DR (PROTONIX) 40 mg tablet take 1 tablet by mouth twice a day - oegqwj-lfzkosoi-eelirsf (CREON 36) 36,000-114,000- 180,000 unit delayed release capsule Take 2 caps by mouth 3 times daily with meals and 1 cap with each snack. Take 1st cap before meal starts and the 2nd cap intermediate through. - primidone (MYSOLINE) 50 mg tablet Take 1 tablet by mouth every afternoon. - JARDIANCE 10 mg tablet Take 1 tablet by mouth every afternoon. - ondansetron (ZOFRAN) 4 mg tablet Take 1 tablet by mouth once daily as needed for nausea/vomiting (for nausea.). - amoxicillin (AMOXIL) 500 mg capsule - amoxicillin-clavulanic acid (AUGMENTIN) 875-125 mg per tablet Take by mouth. - atorvastatin (LIPITOR) 80 mg tablet Take 1 tablet by mouth every evening. - dorzolamide (TRUSOPT) 2 % ophthalmic solution Use in eyes. - doxycycline hyclate (VIBRAMYCIN) 100 mg capsule Take by mouth. - losartan (COZAAR) 50 mg tablet Take 1 tablet by mouth every afternoon. - aspirin, enteric coated (JAILENE LOW DOSE ASPIRIN) 81 mg EC tablet Take by mouth. - lamoTRIgine (LAMICTAL) 100 mg tablet take 1/2 tablet by mouth once daily to BE TAKEN ALONG WITH 200 MN... (REFER TO PRESCRIPTION NOTES). - rosuvastatin (CRESTOR) 10 mg tablet Take 10 mg by mouth every evening. - lamoTRIgine ER (LAMICTAL XR) 250 mg 24 hr tablet Take by mouth once daily. - doxepin capsule 10 mg Take 10 mg by mouth as needed. - alendronate (FOSAMAX) 70 mg tablet Take 70 mg by mouth one time a week. In AM with cup of water on empty stomach. Nothing else by mouth and stay upright for 30 min. - oxyCODONE-acetaminophen (PERCOCET) 5-325 mg tablet Take 1-2 tablets by mouth every 8 hours as needed for pain. - ondansetron (ZOFRAN) 4 mg tablet take 1 tablet by mouth every 8 hours if needed for nausea - cyanocobalamin, vitamin B-12, (VITAMIN B12 ORAL) Take 1 tablet by mouth once daily. - cholecalciferol, vitamin D3, (VITAMIN D3 ORAL) Take 1 capsule by mouth once daily. - aspirin (JAILENE CHEWABLE ASPIRIN) 81 mg chewable tablet Take 81 mg by mouth once daily. - amLODIPine (NORVASC) 10 mg tablet Take 10 mg by mouth once daily. - dorzolamide-timolol (COSOPT) 22.3-6.8 mg/mL ophthalmic solution Use 1 Drop in both eyes twice daily. - DULoxetine (CYMBALTA) 60 mg capsule Take 60 mg by mouth once daily. - metFORMIN (GLUCOPHAGE) 1,000 mg tablet Take 1,000 mg by mouth twice daily with meals. - rosuvastatin (CRESTOR) 40 mg tablet Take 40 mg by mouth daily at bedtime. - metoprolol tartrate 75 mg tab Take 75 mg by mouth twice daily. Problem List As Of Date 11/15/2023 Noted Resolved Gastroparesis [K31.84] 06/11/2021 06/12/2021 Preop examination [Z01.818] 05/13/2023 Hypertension [I10] 05/13/2023 Diabetes mellitus without complication (HCC) [E*05/13/2023 CABRERA (obstructive sleep apnea) [G47.33] 05/13/2023 Heartburn [R12] 05/13/2023 Gastroparesis [K31.84] 05/13/2023 Weakness of both lower extremities [R29.898] 08/12/2023 Abnormality of gait [R26.9] 08/12/2023 Imbalance [R26.89] 08/12/2023 Encounter Status:Closed [facility] (AGGASTACC ) DOUGLAS CALLAWAY JR ([id number]) 1955 M Date Time Provider Department 11/11/23 KARLA SAUER AGGASTACC During your visit today, we recorded the following information about you: Pravin Mukherjee 11/11/2023 1:18 PM Signed called pt left voice mail message asking the patient to call our office back to schedule rodrick Mukherjee Allergies As of Date: 11/11/2023 (No Known Allergies) Date Reviewed: 10/26/2023 Reviewed by: Ross Dimas MA - Fully Assessed Reason for Visit: Appointment [186] Prescriptions as of 11/11/2023 - pantoprazole DR (PROTONIX) 40 mg tablet take 1 tablet by mouth twice a day - hjqaxz-tlaavlbg-omzrwyc (CREON 36) 36,000-114,000- 180,000 unit delayed release capsule Take 2 caps by mouth 3 times daily with meals and 1 cap with each snack. Take 1st cap before meal starts and the 2nd cap intermediate through. - primidone (MYSOLINE) 50 mg tablet Take 1 tablet by mouth every afternoon. - JARDIANCE 10 mg tablet Take 1 tablet by mouth every afternoon. - ondansetron (ZOFRAN) 4 mg tablet Take 1 tablet by mouth once daily as needed for nausea/vomiting (for nausea.). - amoxicillin (AMOXIL) 500 mg capsule - amoxicillin-clavulanic acid (AUGMENTIN) 875-125 mg per tablet Take by mouth. - atorvastatin (LIPITOR) 80 mg tablet Take 1 tablet by mouth every evening. - dorzolamide (TRUSOPT) 2 % ophthalmic solution Use in eyes. - doxycycline hyclate (VIBRAMYCIN) 100 mg capsule Take by mouth. - losartan (COZAAR) 50 mg tablet Take 1 tablet by mouth every afternoon. - aspirin, enteric coated (JAILENE LOW DOSE ASPIRIN) 81 mg EC tablet Take by mouth. - lamoTRIgine (LAMICTAL) 100 mg tablet take 1/2 tablet by mouth once daily to BE TAKEN ALONG WITH 200 MN... (REFER TO PRESCRIPTION NOTES). - rosuvastatin (CRESTOR) 10 mg tablet Take 10 mg by mouth every evening. - lamoTRIgine ER (LAMICTAL XR) 250 mg 24 hr tablet Take by mouth once daily. - doxepin capsule 10 mg Take 10 mg by mouth as needed. - alendronate (FOSAMAX) 70 mg tablet Take 70 mg by mouth one time a week. In AM with cup of water on empty stomach. Nothing else by mouth and stay upright for 30 min. - oxyCODONE-acetaminophen (PERCOCET) 5-325 mg tablet Take 1-2 tablets by mouth every 8 hours as needed for pain. - ondansetron (ZOFRAN) 4 mg tablet take 1 tablet by mouth every 8 hours if needed for nausea - cyanocobalamin, vitamin B-12, (VITAMIN B12 ORAL) Take 1 tablet by mouth once daily. - cholecalciferol, vitamin D3, (VITAMIN D3 ORAL) Take 1 capsule by mouth once daily. - aspirin (JAILENE CHEWABLE ASPIRIN) 81 mg chewable tablet Take 81 mg by mouth once daily. - amLODIPine (NORVASC) 10 mg tablet Take 10 mg by mouth once daily. - dorzolamide-timolol (COSOPT) 22.3-6.8 mg/mL ophthalmic solution Use 1 Drop in both eyes twice daily. - DULoxetine (CYMBALTA) 60 mg capsule Take 60 mg by mouth once daily. - metFORMIN (GLUCOPHAGE) 1,000 mg tablet Take 1,000 mg by mouth twice daily with meals. - rosuvastatin (CRESTOR) 40 mg tablet Take 40 mg by mouth daily at bedtime. - metoprolol tartrate 75 mg tab Take 75 mg by mouth twice daily. Problem List As Of Date 11/11/2023 Noted Resolved Gastroparesis [K31.84] 06/11/2021 06/12/2021 Preop examination [Z01.818] 05/13/2023 Hypertension [I10] 05/13/2023 Diabetes mellitus without complication (HCC) [E*05/13/2023 CABRERA (obstructive sleep apnea) [G47.33] 05/13/2023 Heartburn [R12] 05/13/2023 Gastroparesis [K31.84] 05/13/2023 Weakness of both lower extremities [R29.898] 08/12/2023 Abnormality of gait [R26.9] 08/12/2023 Imbalance [R26.89] 08/12/2023 Encounter Status:Closed by PRAVIN MUKHERJEE on 11/11/23 [facility] CNTHERAPYon 11-11-2023 CNTHERAPY OT/PT/Speech Visit ( PTMDRG) DOUGLAS CALLAWAY JR ([id number]) 1955 M Date Time Provider Department 11/11/23 1:15 PM MARÍA OROSCO PTMDRG Date Time Provider Department Center 11/11/2023 1:15 PM [id number] PTMDRG [facility] Reason for Visit: Physical Therapy [503] Primary Visit Diagnosis:Diabetes mellitus without complication (HCC) [E11.9] Other Visit Diagnoses:Weakness of both lower extremities [R29.898] Abnormality of gait [R26.9] Imbalance [R26.89] Allergies As of Date: 11/11/2023 (No Known Allergies) Date Reviewed: 10/26/2023 Reviewed by: Ross Dimas MA - Fully Assessed Prescriptions as of 11/11/2023 - pantoprazole DR (PROTONIX) 40 mg tablet take 1 tablet by mouth twice a day - nbazks-upnmastd-dxsbzmy (CREON 36) 36,000-114,000- 180,000 unit delayed release capsule Take 2 caps by mouth 3 times daily with meals and 1 cap with each snack. Take 1st cap before meal starts and the 2nd cap intermediate through. - primidone (MYSOLINE) 50 mg tablet Take 1 tablet by mouth every afternoon. - JARDIANCE 10 mg tablet Take 1 tablet by mouth every afternoon. - ondansetron (ZOFRAN) 4 mg tablet Take 1 tablet by mouth once daily as needed for nausea/vomiting (for nausea.). - amoxicillin (AMOXIL) 500 mg capsule - amoxicillin-clavulanic acid (AUGMENTIN) 875-125 mg per tablet Take by mouth. - atorvastatin (LIPITOR) 80 mg tablet Take 1 tablet by mouth every evening. - dorzolamide (TRUSOPT) 2 % ophthalmic solution Use in eyes. - doxycycline hyclate (VIBRAMYCIN) 100 mg capsule Take by mouth. - losartan (COZAAR) 50 mg tablet Take 1 tablet by mouth every afternoon. - aspirin, enteric coated (JAILENE LOW DOSE ASPIRIN) 81 mg EC tablet Take by mouth. - lamoTRIgine (LAMICTAL) 100 mg tablet take 1/2 tablet by mouth once daily to BE TAKEN ALONG WITH 200 MN... (REFER TO PRESCRIPTION NOTES). - rosuvastatin (CRESTOR) 10 mg tablet Take 10 mg by mouth every evening. - lamoTRIgine ER (LAMICTAL XR) 250 mg 24 hr tablet Take by mouth once daily. - doxepin capsule 10 mg Take 10 mg by mouth as needed. - alendronate (FOSAMAX) 70 mg tablet Take 70 mg by mouth one time a week. In AM with cup of water on empty stomach. Nothing else by mouth and stay upright for 30 min. - oxyCODONE-acetaminophen (PERCOCET) 5-325 mg tablet Take 1-2 tablets by mouth every 8 hours as needed for pain. - ondansetron (ZOFRAN) 4 mg tablet take 1 tablet by mouth every 8 hours if needed for nausea - cyanocobalamin, vitamin B-12, (VITAMIN B12 ORAL) Take 1 tablet by mouth once daily. - cholecalciferol, vitamin D3, (VITAMIN D3 ORAL) Take 1 capsule by mouth once daily. - aspirin (JAILENE CHEWABLE ASPIRIN) 81 mg chewable tablet Take 81 mg by mouth once daily. - amLODIPine (NORVASC) 10 mg tablet Take 10 mg by mouth once daily. - dorzolamide-timolol (COSOPT) 22.3-6.8 mg/mL ophthalmic solution Use 1 Drop in both eyes twice daily. - DULoxetine (CYMBALTA) 60 mg capsule Take 60 mg by mouth once daily. - metFORMIN (GLUCOPHAGE) 1,000 mg tablet Take 1,000 mg by mouth twice daily with meals. - rosuvastatin (CRESTOR) 40 mg tablet Take 40 mg by mouth daily at bedtime. - metoprolol tartrate 75 mg tab Take 75 mg by mouth twice daily. [facility] 11-05-2023 CNP Telephone (AGGASTACC ) DOUGLAS CALLAWAY JR ([id number]) 1955 Date Time Provider Department 11/05/23 KARLA SAUER AGGASTACC During your visit today, we recorded the following information about you: Fátima Martinez MA 11/05/2023 3:21 PM Signed The patient called the office stating that the Creon is no longer help. It stop helping on Oct 26. The patient would like to know if there is something else hutner could take. Please advise Fátima Martinez MA November 05, 2023 3:20 PM Karla Sauer PA-C 11/08/2023 11:50 AM Signed Ok if the creon is no longer helping- he can use immodium as needed, and we should get him scheduled for a colonoscopy as well. Please let me know if he wants to get scheduled with colonoscopy and I will place the order Pravin Mukherjee 11/08/2023 4:04 PM Signed Per prev notes- called pt left voice mail message asking the patient to call our office back to review medication Fátima France MA 11/10/2023 9:49 AM Addendum The patient called the office back and got the message below. The patient understood and would like to have the colonoscopy done. Please advise Fátima Martinez MA November 10, 2023 9:49 AM Karla Sauer PA-C 11/10/2023 10:43 AM Signed Addended by: KARLA SAUER on: 11/10/2023 10:43 AM Modules accepted: Orders Allergies As of Date: 11/05/2023 (No Known Allergies) Date Reviewed: 10/26/2023 Reviewed by: Ross Dimas MA - Fully Assessed Reason for Visit: Medication Problem [65] Primary Visit Diagnosis:Diarrhea, unspecified type [R19.7] Order(s):COLONOSCOPY DIAGNOSTIC [GI11] Order #: [id number] FUTURE Prescriptions as of 11/11/2023 - pantoprazole DR (PROTONIX) 40 mg tablet take 1 tablet by mouth twice a day - ghnobp-nbewooqz-gcxafoa (CREON 36) 36,000-114,000- 180,000 unit delayed release capsule Take 2 caps by mouth 3 times daily with meals and 1 cap with each snack. Take 1st cap before meal starts and the 2nd cap intermediate through. - primidone (MYSOLINE) 50 mg tablet Take 1 tablet by mouth every afternoon. - JARDIANCE 10 mg tablet Take 1 tablet by mouth every afternoon. - ondansetron (ZOFRAN) 4 mg tablet Take 1 tablet by mouth once daily as needed for nausea/vomiting (for nausea.). - amoxicillin (AMOXIL) 500 mg capsule - amoxicillin-clavulanic acid (AUGMENTIN) 875-125 mg per tablet Take by mouth. - atorvastatin (LIPITOR) 80 mg tablet Take 1 tablet by mouth every evening. - dorzolamide (TRUSOPT) 2 % ophthalmic solution Use in eyes. - doxycycline hyclate (VIBRAMYCIN) 100 mg capsule Take by mouth. - losartan (COZAAR) 50 mg tablet Take 1 tablet by mouth every afternoon. - aspirin, enteric coated (JAILENE LOW DOSE ASPIRIN) 81 mg EC tablet Take by mouth. - lamoTRIgine (LAMICTAL) 100 mg tablet take 1/2 tablet by mouth once daily to BE TAKEN ALONG WITH 200 MN... (REFER TO PRESCRIPTION NOTES). - rosuvastatin (CRESTOR) 10 mg tablet Take 10 mg by mouth every evening. - lamoTRIgine ER (LAMICTAL XR) 250 mg 24 hr tablet Take by mouth once daily. - doxepin capsule 10 mg Take 10 mg by mouth as needed. - alendronate (FOSAMAX) 70 mg tablet Take 70 mg by mouth one time a week. In AM with cup of water on empty stomach. Nothing else by mouth and stay upright for 30 min. - oxyCODONE-acetaminophen (PERCOCET) 5-325 mg tablet Take 1-2 tablets by mouth every 8 hours as needed for pain. - ondansetron (ZOFRAN) 4 mg tablet take 1 tablet by mouth every 8 hours if needed for nausea - cyanocobalamin, vitamin B-12, (VITAMIN B12 ORAL) Take 1 tablet by mouth once daily. - cholecalciferol, vitamin D3, (VITAMIN D3 ORAL) Take 1 capsule by mouth once daily. - aspirin (JAILENE CHEWABLE ASPIRIN) 81 mg chewable tablet Take 81 mg by mouth once daily. - amLODIPine (NORVASC) 10 mg tablet Take 10 mg by mouth once daily. - dorzolamide-timolol (COSOPT) 22.3-6.8 mg/mL ophthalmic solution Use 1 Drop in both eyes twice daily. - DULoxetine (CYMBALTA) 60 mg capsule Take 60 mg by mouth once daily. - metFORMIN (GLUCOPHAGE) 1,000 mg tablet Take 1,000 mg by mouth twice daily with meals. - rosuvastatin (CRESTOR) 40 mg tablet Take 40 mg by mouth daily at bedtime. - metoprolol tartrate 75 mg tab Take 75 mg by mouth twice daily. Problem List As Of Date 11/05/2023 Noted Resolved Gastroparesis [K31.84] 06/11/2021 06/12/2021 Preop examination [Z01.818] 05/13/2023 Hypertension [I10] 05/13/2023 Diabetes mellitus without complication (HCC) [E*05/13/2023 CABRERA (obstructive sleep apnea) [G47.33] 05/13/2023 Heartburn [R12] 05/13/2023 Gastroparesis [K31.84] 05/13/2023 Weakness of both lower extremities [R29.898] 08/12/2023 Abnormality of gait [R26.9] 08/12/2023 Imbalance [R26.89] 08/12/2023 Encounter Status:Closed by PRAVIN MUKHERJEE on 11/08/[address] [facility] MRI BRAIN WO IVCONon 024 MRI BRAIN WO IVCON * * *Final Report* * * DATE OF EXAM: Nov 05 2023 1:40PM [facility] 0294 - MRI BRAIN WO IVCON / PROCEDURE REASON: Transient cerebral ischemia, unspecified type * * * * Physician Interpretation * * * * EXAMINATION: MRI BRAIN WO IVCON CLINICAL HISTORY: TIA symptoms, gait impairment. TECHNIQUE: Routine noncontrast MRI protocol including diffusion images. MQ: [id number] COMPARISON: Previous head CT 09/16/2023. RESULT: Acute Change: There is no restricted diffusion on this examination to suggest focal acute ischemia or pathologic brain parenchymal cellularity. Hemorrhage: No evidence of prior parenchymal hemorrhage on the susceptibility weighted images. Venous pattern in the right parietal lobe suggests a small developmental venous anomaly (venous angioma). Mass Lesion/ Mass Effect: No evidence of an intracranial mass or extra-axial fluid collection. No significant mass effect. Chronic Change: Remote lacunar type infarct which extends from the posterior portion of left lentiform nuclei into the posterior left posterior frontal blackman radiata. Otherwise, patchy chronic microvascular change in the white matter of both hemispheres. Patchy chronic microvascular change in the marco antonio. Parenchyma: There is moderate generalized parenchymal volume loss. Ventricles: Ventriculomegaly corresponds to the degree of parenchymal volume loss. Skull Base: Hypothalamic and pituitary region are grossly normal. Craniocervical junction is normal. No significant marrow replacement process. Cerebellar tonsils are normal size and position. Vasculature: Major intracranial arterial structures, and dural venous sinuses show typical flow void, suggesting patency by spin echo criteria. Right vertebral artery is dominant. Other: Patchy right mastoid fluid. No bone destruction or adjacent soft tissue abnormalities. Minimal ethmoid mucosal thickening. Prior lens replacements. Orbits are unremarkable. IMPRESSION: No acute brain findings. Chronic microvascular change and old lacunar infarct on the left extending from the posterior portion of the left lentiform nuclei into the adjacent left posterior frontal blackman radiata. Based on the axial T2 flow void pattern, proximal intracranial arterial vasculature, major cortical draining veins, and dural venous sinuses are patent. Toll T[facility] Clerk[facility] Transcribe Date/Time: Dec 02 2023 2:15P Dictated by : BUCKY HINES MD This examination was interpreted and the report reviewed and electronically signed by: BUCKY HINES MD on Dec 02 2023 2:22PM EST [id number] Normal [facility] CNTHERAPYon 11-03-2023 CNTHERAPY OT/PT/Speech Visit ( PTMDRG) DOUGLAS CALLAWAY JR ([id number]) 1955 M Date Time Provider Department 11/03/23 1:15 PM MARÍA OROSCO PT[facility] Date Time Provider Department Center 11/03/2023 1:15 PM [id number] OROSCO PTMDRG [facility] Reason for Visit: Physical Therapy [503] Primary Visit Diagnosis:Diabetes mellitus without complication (HCC) [E11.9] Other Visit Diagnoses:Weakness of both lower extremities [R29.898] Abnormality of gait [R26.9] Imbalance [R26.89] Allergies As of Date: 11/03/2023 (No Known Allergies) Date Reviewed: 10/26/2023 Reviewed by: Ross Dimas MA - Fully Assessed Prescriptions as of 11/03/2023 - diazePAM (VALIUM) 2 mg tablet Take 1 tablet by mouth once daily for 2 doses. Take one tab 30 minutes before MRI - pantoprazole DR (PROTONIX) 40 mg tablet take 1 tablet by mouth twice a day - mjhgst-umjtbmzd-gqgdojo (CREON 36) 36,000-114,000- 180,000 unit delayed release capsule Take 2 caps by mouth 3 times daily with meals and 1 cap with each snack. Take 1st cap before meal starts and the 2nd cap intermediate through. - primidone (MYSOLINE) 50 mg tablet Take 1 tablet by mouth every afternoon. - JARDIANCE 10 mg tablet Take 1 tablet by mouth every afternoon. - ondansetron (ZOFRAN) 4 mg tablet Take 1 tablet by mouth once daily as needed for nausea/vomiting (for nausea.). - amoxicillin (AMOXIL) 500 mg capsule - amoxicillin-clavulanic acid (AUGMENTIN) 875-125 mg per tablet Take by mouth. - atorvastatin (LIPITOR) 80 mg tablet Take 1 tablet by mouth every evening. - dorzolamide (TRUSOPT) 2 % ophthalmic solution Use in eyes. - doxycycline hyclate (VIBRAMYCIN) 100 mg capsule Take by mouth. - losartan (COZAAR) 50 mg tablet Take 1 tablet by mouth every afternoon. - aspirin, enteric coated (JAILENE LOW DOSE ASPIRIN) 81 mg EC tablet Take by mouth. - lamoTRIgine (LAMICTAL) 100 mg tablet take 1/2 tablet by mouth once daily to BE TAKEN ALONG WITH 200 MN... (REFER TO PRESCRIPTION NOTES). - rosuvastatin (CRESTOR) 10 mg tablet Take 10 mg by mouth every evening. - lamoTRIgine ER (LAMICTAL XR) 250 mg 24 hr tablet Take by mouth once daily. - doxepin capsule 10 mg Take 10 mg by mouth as needed. - alendronate (FOSAMAX) 70 mg tablet Take 70 mg by mouth one time a week. In AM with cup of water on empty stomach. Nothing else by mouth and stay upright for 30 min. - oxyCODONE-acetaminophen (PERCOCET) 5-325 mg tablet Take 1-2 tablets by mouth every 8 hours as needed for pain. - ondansetron (ZOFRAN) 4 mg tablet take 1 tablet by mouth every 8 hours if needed for nausea - cyanocobalamin, vitamin B-12, (VITAMIN B12 ORAL) Take 1 tablet by mouth once daily. - cholecalciferol, vitamin D3, (VITAMIN D3 ORAL) Take 1 capsule by mouth once daily. - aspirin (JAILENE CHEWABLE ASPIRIN) 81 mg chewable tablet Take 81 mg by mouth once daily. - amLODIPine (NORVASC) 10 mg tablet Take 10 mg by mouth once daily. - dorzolamide-timolol (COSOPT) 22.3-6.8 mg/mL ophthalmic solution Use 1 Drop in both eyes twice daily. - DULoxetine (CYMBALTA) 60 mg capsule Take 60 mg by mouth once daily. - metFORMIN (GLUCOPHAGE) 1,000 mg tablet Take 1,000 mg by mouth twice daily with meals. - rosuvastatin (CRESTOR) 40 mg tablet Take 40 mg by mouth daily at bedtime. - metoprolol tartrate 75 mg tab Take 75 mg by mouth twice daily. [facility] 11-01-2023 [facility] Telephone (NIQ) DOUGLAS CALLAWAY JR ([id number]) 1955 M Date Time Provider Department 11/01/23 SHERYL BASSETT During your visit today, we recorded the following information about you: Royce Clifton 11/01/2023 3:48 PM Signed Patient scheduled MRI for 12/02/2023, stated he was told that Dr Bassett said she would order medication for the patient to help with nerves during the MRI. Please call patient at [phone] once medication has been ordered. Thank you! Sheryl Bassett MD 11/02/2023 4:16 PM Signed Addended by: SHERYL BASSETT on: 11/02/2023 04:16 PM Modules accepted: Orders Allergies As of Date: 11/01/2023 (No Known Allergies) Date Reviewed: 10/26/2023 Reviewed by: Ross Dimas MA - Fully Assessed Reason for Visit: Patient Question [7773] Primary Visit Diagnosis:Claustrophobia [F40.240] Order(s):diazePAM (VALIUM) 2 mg tabletTake 1 tablet by mouth once daily for 2 doses. Take one tab 30 minutes before MRIDisp: 2 tabletRfl: 0 Prescriptions as of 11/02/2023 - diazePAM (VALIUM) 2 mg tablet Take 1 tablet by mouth once daily for 2 doses. Take one tab 30 minutes before MRI - pantoprazole DR (PROTONIX) 40 mg tablet take 1 tablet by mouth twice a day - aupyya-dcotvmxu-ykqwmmh (CREON 36) 36,000-114,000- 180,000 unit delayed release capsule Take 2 caps by mouth 3 times daily with meals and 1 cap with each snack. Take 1st cap before meal starts and the 2nd cap intermediate through. - primidone (MYSOLINE) 50 mg tablet Take 1 tablet by mouth every afternoon. - JARDIANCE 10 mg tablet Take 1 tablet by mouth every afternoon. - ondansetron (ZOFRAN) 4 mg tablet Take 1 tablet by mouth once daily as needed for nausea/vomiting (for nausea.). - amoxicillin (AMOXIL) 500 mg capsule - amoxicillin-clavulanic acid (AUGMENTIN) 875-125 mg per tablet Take by mouth. - atorvastatin (LIPITOR) 80 mg tablet Take 1 tablet by mouth every evening. - dorzolamide (TRUSOPT) 2 % ophthalmic solution Use in eyes. - doxycycline hyclate (VIBRAMYCIN) 100 mg capsule Take by mouth. - losartan (COZAAR) 50 mg tablet Take 1 tablet by mouth every afternoon. - aspirin, enteric coated (JAILENE LOW DOSE ASPIRIN) 81 mg EC tablet Take by mouth. - lamoTRIgine (LAMICTAL) 100 mg tablet take 1/2 tablet by mouth once daily to BE TAKEN ALONG WITH 200 MN... (REFER TO PRESCRIPTION NOTES). - rosuvastatin (CRESTOR) 10 mg tablet Take 10 mg by mouth every evening. - lamoTRIgine ER (LAMICTAL XR) 250 mg 24 hr tablet Take by mouth once daily. - doxepin capsule 10 mg Take 10 mg by mouth as needed. - alendronate (FOSAMAX) 70 mg tablet Take 70 mg by mouth one time a week. In AM with cup of water on empty stomach. Nothing else by mouth and stay upright for 30 min. - oxyCODONE-acetaminophen (PERCOCET) 5-325 mg tablet Take 1-2 tablets by mouth every 8 hours as needed for pain. - ondansetron (ZOFRAN) 4 mg tablet take 1 tablet by mouth every 8 hours if needed for nausea - cyanocobalamin, vitamin B-12, (VITAMIN B12 ORAL) Take 1 tablet by mouth once daily. - cholecalciferol, vitamin D3, (VITAMIN D3 ORAL) Take 1 capsule by mouth once daily. - aspirin (JAILENE CHEWABLE ASPIRIN) 81 mg chewable tablet Take 81 mg by mouth once daily. - amLODIPine (NORVASC) 10 mg tablet Take 10 mg by mouth once daily. - dorzolamide-timolol (COSOPT) 22.3-6.8 mg/mL ophthalmic solution Use 1 Drop in both eyes twice daily. - DULoxetine (CYMBALTA) 60 mg capsule Take 60 mg by mouth once daily. - metFORMIN (GLUCOPHAGE) 1,000 mg tablet Take 1,000 mg by mouth twice daily with meals. - rosuvastatin (CRESTOR) 40 mg tablet Take 40 mg by mouth daily at bedtime. - metoprolol tartrate 75 mg tab Take 75 mg by mouth twice daily. Problem List As Of Date 11/01/2023 Noted Resolved Gastroparesis [K31.84] 06/11/2021 06/12/2021 Preop examination [Z01.818] 05/13/2023 Hypertension [I10] 05/13/2023 Diabetes mellitus without complication (HCC) [E*05/13/2023 CABRERA (obstructive sleep apnea) [G47.33] 05/13/2023 Heartburn [R12] 05/13/2023 Gastroparesis [K31.84] 05/13/2023 Weakness of both lower extremities [R29.898] 08/12/2023 Abnormality of gait [R26.9] 08/12/2023 Imbalance [R26.89] 08/12/2023 Prescriptions ordered this encounter Disp Refills Start End DIAZEPAM 2 MG TABLET 2 ta* 0 11/02/2023 11/04/2023 Route: ORAL Sig: Take 1 tablet by mouth once daily for 2 doses. Take one tab 30 minutes before MRI Encounter Status:Closed by ROYCE CLIFTON on 11/01/23 [facility] CNTHERAPYon 10-28-2023 CNTHERAPY OT/PT/Speech Visit ( PTMDRG) DOUGLAS CALLAWAY JR ([id number]) 1955 M Date Time Provider Department 10/28/23 2:00 PM MARÍA OROSCO PTMDRG Date Time Provider Department [place] 10/28/2023 2:00 PM [id number] OROSCO PTMDRG [facility] Reason for Visit: Physical Therapy [503] Primary Visit Diagnosis:Diabetes mellitus without complication (HCC) [E11.9] Other Visit Diagnoses:Weakness of both lower extremities [R29.898] Abnormality of gait [R26.9] Imbalance [R26.89] Allergies As of Date: 10/28/2023 (No Known Allergies) Date Reviewed: 10/26/2023 Reviewed by: Ross Dimas MA - Fully Assessed Prescriptions as of 10/28/2023 - pantoprazole DR (PROTONIX) 40 mg tablet take 1 tablet by mouth twice a day - uruvsy-vuwrtzln-jmbcvmy (CREON 36) 36,000-114,000- 180,000 unit delayed release capsule Take 2 caps by mouth 3 times daily with meals and 1 cap with each snack. Take 1st cap before meal starts and the 2nd cap intermediate through. - primidone (MYSOLINE) 50 mg tablet Take 1 tablet by mouth every afternoon. - JARDIANCE 10 mg tablet Take 1 tablet by mouth every afternoon. - ondansetron (ZOFRAN) 4 mg tablet Take 1 tablet by mouth once daily as needed for nausea/vomiting (for nausea.). - amoxicillin (AMOXIL) 500 mg capsule - amoxicillin-clavulanic acid (AUGMENTIN) 875-125 mg per tablet Take by mouth. - atorvastatin (LIPITOR) 80 mg tablet Take 1 tablet by mouth every evening. - dorzolamide (TRUSOPT) 2 % ophthalmic solution Use in eyes. - doxycycline hyclate (VIBRAMYCIN) 100 mg capsule Take by mouth. - losartan (COZAAR) 50 mg tablet Take 1 tablet by mouth every afternoon. - aspirin, enteric coated (JAILENE LOW DOSE ASPIRIN) 81 mg EC tablet Take by mouth. - lamoTRIgine (LAMICTAL) 100 mg tablet take 1/2 tablet by mouth once daily to BE TAKEN ALONG WITH 200 MN... (REFER TO PRESCRIPTION NOTES). - rosuvastatin (CRESTOR) 10 mg tablet Take 10 mg by mouth every evening. - lamoTRIgine ER (LAMICTAL XR) 250 mg 24 hr tablet Take by mouth once daily. - doxepin capsule 10 mg Take 10 mg by mouth as needed. - alendronate (FOSAMAX) 70 mg tablet Take 70 mg by mouth one time a week. In AM with cup of water on empty stomach. Nothing else by mouth and stay upright for 30 min. - oxyCODONE-acetaminophen (PERCOCET) 5-325 mg tablet Take 1-2 tablets by mouth every 8 hours as needed for pain. - ondansetron (ZOFRAN) 4 mg tablet take 1 tablet by mouth every 8 hours if needed for nausea - cyanocobalamin, vitamin B-12, (VITAMIN B12 ORAL) Take 1 tablet by mouth once daily. - cholecalciferol, vitamin D3, (VITAMIN D3 ORAL) Take 1 capsule by mouth once daily. - aspirin (JAILENE CHEWABLE ASPIRIN) 81 mg chewable tablet Take 81 mg by mouth once daily. - amLODIPine (NORVASC) 10 mg tablet Take 10 mg by mouth once daily. - dorzolamide-timolol (COSOPT) 22.3-6.8 mg/mL ophthalmic solution Use 1 Drop in both eyes twice daily. - DULoxetine (CYMBALTA) 60 mg capsule Take 60 mg by mouth once daily. - metFORMIN (GLUCOPHAGE) 1,000 mg tablet Take 1,000 mg by mouth twice daily with meals. - rosuvastatin (CRESTOR) 40 mg tablet Take 40 mg by mouth daily at bedtime. - metoprolol tartrate 75 mg tab Take 75 mg by mouth twice daily. Normal [facility] 10-26-2023 [facility] Office Visit (NEURMM ) DOUGLAS CALLAWAY JR ([id number]) 1955 M Date Time Provider Department 10/26/23 4:00 PM SHERYL BASSETT NEURMM During your visit today, we recorded the following information about you: Pulse Blood pressure Weight Height 50/minute 176/90 72.7 kg 1.727 m Sheryl Bassett MD 11/13/2023 3:22 PM Signed October 26, 2023 Follow up visit Interval history Patient is 68 years old man who is here for follow up to discuss test results EMG showed lumbar radiculopathy and no neuropathy Physical therapy ,muscle relaxant help as conservative treatment . Once a week since August 2023 It helps him to walk better. He does better when doing therapy at home Breakthrough falling ,falling forwards ,not backwards Intermittent back pain Leg weakness Subjective HISTORY AND PHYSICAL Douglas Callaway JR 68 year old man with weakness in both legs more on the right than left since October 2022 and frequent falls He is shaffling instead of regular steps ,tripping over or losing balance . Although having frequent falls ,he didn't go to therapy ,and doesn't have a cane for balance . Falling and losing balance or tripping on anyhting Back pain or neck pain none Numbness in the feet at night No leg pain ,he had right shoulder pain s/p right shoulder replacement and decrease in the range of movement He noticed that he falls more when it is dark, or when closing his eyes in the shower Years ago had stroke but had no documents ,because the hospital closed Review of Systems Objective 10/26/23 1604 BP: 176/90 BP Site: Left Arm BP Position: Sitting BP Cuff Size: Regular Adult Pulse: (!) 50 SpO2: 97% Weight: 72.7 kg (160 lb 4.4 oz) Height: 172.7 cm (5' 8) Physical Exam EXAM: NOSE: no erythema or exudate PHARYNX: normal, no erythema NECK: supple and no adenopathy CHEST: Normal chest wall exam NODES: Neurological Exam MENTAL STATUS: Alert, oriented to person, place and time and Follows commands CRANIAL NERVES: EOM's intact, Visual edmond intact to confrontation, Face symmetric, Hearing intact to finger rub bilaterally, No dysarthria, Palate elevates symmetrically, Tongue protrudes midline, and Shoulder with limitation of range of movement of the right shoulder symmetric MOTOR: No drift and Normal tone MOTOR STRENGTH: Upper and lower extremity 5/5 bilaterally REFLEXES: Reflexes are diminished but present at the knees both sides and absent at the ankles on both sides SENSATION: Positive Romberg COORDINATION: Finger-to- nose-finger intact bilaterally GAIT: Not assessed PAST MEDICAL HISTORY Diagnosis Date Bipolar II disorder (HCC) CAD (coronary artery disease) 12/2019 CABG x 3 Carotid artery occlusion with cerebral infarction ([facility]) pt denies this; CVA was secondary to HTN CVA (cerebral vascular accident) ([facility]) 2003 related to untreated HTN; no residual effects Depression Elevated LFTs Gastroparesis POP procedure 06/11/21 GERD (gastroesophageal reflux disease) Hepatitis A 09/2018 Resolved HTN (hypertension) Hyperlipemia Insomnia CABRERA (obstructive sleep apnea) does not currently have a CPAP Osteoporoses Renal insufficiency TIA (transient ischemic attack) prior to CVA in 2003, none since Type 2 diabetes mellitus ([facility]) 2018 Iván Schinner PCP Current Outpatient Medications Medication Sig Dispense Refill pantoprazole DR (PROTONIX) 40 mg tablet take 1 tablet by mouth twice a day 180 tablet 2 nihkvl-rmmztkeo-dtzdqak (CREON 36) 36,000-114,000- 180,000 unit delayed release capsule Take 2 caps by mouth 3 times daily with meals and 1 cap with each snack. Take 1st cap before meal starts and the 2nd cap intermediate through. 240 capsule 5 primidone (MYSOLINE) 50 mg tablet Take 1 tablet by mouth every afternoon. JARDIANCE 10 mg tablet Take 1 tablet by mouth every afternoon. ondansetron (ZOFRAN) 4 mg tablet Take 1 tablet by mouth once daily as needed for nausea/vomiting (for nausea.). 30 tablet 2 amoxicillin (AMOXIL) 500 mg capsule losartan (COZAAR) 50 mg tablet Take 1 tablet by mouth every afternoon. aspirin, enteric coated (JAILENE LOW DOSE ASPIRIN) 81 mg EC tablet Take by mouth. lamoTRIgine (LAMICTAL) 100 mg tablet take 1/2 tablet by mouth once daily to BE TAKEN ALONG WITH 200 MN... (REFER TO PRESCRIPTION NOTES). lamoTRIgine ER (LAMICTAL XR) 250 mg 24 hr tablet Take by mouth once daily. doxepin capsule 10 mg Take 10 mg by mouth as needed. alendronate (FOSAMAX) 70 mg tablet Take 70 mg by mouth one time a week. In AM with cup of water on empty stomach. Nothing else by mouth and stay upright for 30 min. cyanocobalamin, vitamin B-12, (VITAMIN B12 ORAL) Take 1 tablet by mouth once daily. cholecalciferol, vitamin D3, (VITAMIN D3 ORAL) Take 1 capsule by mouth once daily. dorzolamide-timolol (COSOPT) 22.3-6.8 mg/mL ophthalmic soluti (more content not included)... Normal [facility] CNTHERAPYon 10-21-2023 CNTHERAPY OT/PT/Speech Visit ( PTMDRG) DOUGLAS CALLAWAY JR ([id number]) 1955 Date Time Provider Department 10/21/23 10:45 AM KARLA CASTRO PT[facility] Date Time Provider Department Center 10/21/2023 10:45 AM [id number] CASTRO PTMDRG [facility] Reason for Visit: PT Progress Note [1596] Primary Visit Diagnosis:Diabetes mellitus without complication (HCC) [E11.9] Other Visit Diagnoses:Weakness of both lower extremities [R29.898] Abnormality of gait [R26.9] Imbalance [R26.89] Allergies As of Date: 10/21/2023 (No Known Allergies) Date Reviewed: 10/13/2023 Reviewed by: Jasmin Mendieta MA - Fully Assessed Prescriptions as of 10/21/2023 - zkjgwx-dycmhytq-rvgyemi (CREON 36) 36,000-114,000- 180,000 unit delayed release capsule Take 2 caps by mouth 3 times daily with meals and 1 cap with each snack. Take 1st cap before meal starts and the 2nd cap intermediate through. - primidone (MYSOLINE) 50 mg tablet Take 1 tablet by mouth every afternoon. - JARDIANCE 10 mg tablet Take 1 tablet by mouth every afternoon. - pantoprazole DR (PROTONIX) 40 mg tablet take 1 tablet by mouth twice a day - ondansetron (ZOFRAN) 4 mg tablet Take 1 tablet by mouth once daily as needed for nausea/vomiting (for nausea.). - amoxicillin (AMOXIL) 500 mg capsule - amoxicillin-clavulanic acid (AUGMENTIN) 875-125 mg per tablet Take by mouth. - atorvastatin (LIPITOR) 80 mg tablet Take 1 tablet by mouth every evening. - dorzolamide (TRUSOPT) 2 % ophthalmic solution Use in eyes. - doxycycline hyclate (VIBRAMYCIN) 100 mg capsule Take by mouth. - losartan (COZAAR) 50 mg tablet Take 1 tablet by mouth every afternoon. - aspirin, enteric coated (JAILENE LOW DOSE ASPIRIN) 81 mg EC tablet Take by mouth. - lamoTRIgine (LAMICTAL) 100 mg tablet take 1/2 tablet by mouth once daily to BE TAKEN ALONG WITH 200 MN... (REFER TO PRESCRIPTION NOTES). - rosuvastatin (CRESTOR) 10 mg tablet Take 10 mg by mouth every evening. - lamoTRIgine ER (LAMICTAL XR) 250 mg 24 hr tablet Take by mouth once daily. - doxepin capsule 10 mg Take 10 mg by mouth as needed. - alendronate (FOSAMAX) 70 mg tablet Take 70 mg by mouth one time a week. In AM with cup of water on empty stomach. Nothing else by mouth and stay upright for 30 min. - oxyCODONE-acetaminophen (PERCOCET) 5-325 mg tablet Take 1-2 tablets by mouth every 8 hours as needed for pain. - ondansetron (ZOFRAN) 4 mg tablet take 1 tablet by mouth every 8 hours if needed for nausea - cyanocobalamin, vitamin B-12, (VITAMIN B12 ORAL) Take 1 tablet by mouth once daily. - cholecalciferol, vitamin D3, (VITAMIN D3 ORAL) Take 1 capsule by mouth once daily. - aspirin (JAILENE CHEWABLE ASPIRIN) 81 mg chewable tablet Take 81 mg by mouth once daily. - amLODIPine (NORVASC) 10 mg tablet Take 10 mg by mouth once daily. - dorzolamide-timolol (COSOPT) 22.3-6.8 mg/mL ophthalmic solution Use 1 Drop in both eyes twice daily. - DULoxetine (CYMBALTA) 60 mg capsule Take 60 mg by mouth once daily. - metFORMIN (GLUCOPHAGE) 1,000 mg tablet Take 1,000 mg by mouth twice daily with meals. - rosuvastatin (CRESTOR) 40 mg tablet Take 40 mg by mouth daily at bedtime. - metoprolol tartrate 75 mg tab Take 75 mg by mouth twice daily. 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 and working on turning in 8 steps - 1 x daily - 7 x weekly - 3 sets - 10 reps - Sit to Stand - 1 x daily - 7 x weekly - 3 sets - 10 reps - Supine Bridge - 1 x daily - x weekly - 2 sets - 10 reps - Sidelying Hip Abduction - 1 x daily - 7 x weekly - 3 sets - 10 reps - standing hip abduction with looking up and holding on to counter - 1 x daily - 7 x weekly - 3 sets - 10 reps - Mini Squat with Counter Support - 1 x daily - 7 x weekly - 1-2 sets - 10 reps Normal [facility] THERAPY NTon 10-21-2023 THERAPY NT HNO ID: [id number] Author: KARLA CASTRO, PT, DPT Service: Physical Therapy Author Type: Physical Therapist Type: Therapy (PT/OT/Speech/Resp) Filed: 10/21/2023 11:32 Note Text: Program_ID:[id number] Access Code: [email or web address] URL: [email or web address] Date: 10-21-2023 Prepared By: Karla Castro Program Notes Exercises - 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 and working on turning in 8 steps - 1 x daily - 7 x weekly - 3 sets - 10 reps - Sit to Stand - 1 x daily - 7 x weekly - 3 sets - 10 reps - Supine Bridge - 1 x daily - x weekly - 2 sets - 10 reps - Sidelying Hip Abduction - 1 x daily - 7 x weekly - 3 sets - 10 reps - standing hip abduction with looking up and holding on to counter - 1 x daily - 7 x weekly - 3 sets - 10 reps Normal [facility] Calprotectin (Stl) [Mass/Mas s]on 10-18-2023 CALPROTECTIN, FECAL INTERP Elevated Abnormal Normal [facility] Comment on above: Order Comment: Michelle mckeon Type: STOOL SPECIMEN Ordering Facility: [facility] Address: [address] [place] [address] Result Comment: On 2022, [facility] implemented a new fecal calprotectin method, the [employer] Liaison Calprotectin assay. For assistance with interpretation of results in patients undergoing serial monitoring, contact Client Services at [phone] or [phone] to discuss options, preferably within 7 days of issuing this report. Interpretation: <50.0 ug/g: Normal 50.0 ug/g - 120.0 ug/g: Borderline elevated. Re-evaluation in 4-6 weeks is recommended if clinically indicated. >120.0 ug/g: Elevated Performed By: #### 3 8445-3 #### [facility] CLIA [id number] [address] [place] [address] [place] CALPROTECTIN, FECAL QUANTITATIVE 137 ug/g High <50 [facility] Comment on above: Order Comment: Michelle mckeon Type: STOOL SPECIMEN Ordering Facility: [facility] Address: [address] [place] [address] Performed By: #### 3 8445-3 #### [facility] CLIA [id number] [address] [place] [address] [place] CNOVon 10-13-2023 CNOV Office Visit (AGGAST ACC) CESIADOUGLAS CABAN JR ([id number]) 1955 M Date Time Provider Department 10/13/23 1:30 PM KARLA SAUER During your visit today, we recorded the following information about you: Pulse Blood pressure Weight Height 73/minute 158/71 73 kg 1.727 m Karla Sauer PA-C 10/13/2023 2:04 PM Signed GASTROENTEROLOGY PROGRESS NOTE OUTPATIENT FOLLOW UP HPI: I saw Douglas Callaway JR today for a follow up after being diagnosed with EPI. He is taking creon with each meal.- 2 with each meal and one with each snack. He has noticed significant improvement. He is havig normal formed stool once daily on average. He will occasionally skip a day and will occasionally twice daily. PAST MEDICAL HISTORY Diagnosis Date Bipolar II disorder (HCC) CAD (coronary artery disease) 12/2019 CABG x 3 Carotid artery occlusion with cerebral infarction (HCC) pt denies this; CVA was secondary to HTN CVA (cerebral vascular accident) (HCC) 2003 related to untreated HTN; no residual effects Depression Elevated LFTs Gastroparesis POP procedure 06/11/21 GERD (gastroesophageal reflux disease) Hepatitis A 09/2018 Resolved HTN (hypertension) Hyperlipemia Insomnia CABRERA (obstructive sleep apnea) does not currently have a CPAP Osteoporoses Renal insufficiency TIA (transient ischemic attack) prior to CVA in 2003, none since Type 2 diabetes mellitus (HCC) 2018 Iván Case PCP PAST SURGICAL HISTORY Procedure Laterality Date COLONOSCOPY GEN ANES 09/2017 normal per patient CORONARY ART/GRFT ANGIO ARIADNA 12/15/2019 [facility] Mar[facility]quin ; CABG x 3 EGD 08/2020 [facility] EGD WITH BIOPSY(S) 05/13/2023 Dr. Fajardo ERCP STENT PLACEMENT BILIARY/PANCREATIC DUCT 09/02/2021 Dr Yarbrough GI TRANSIT AND PRES CARLEY WIRELESS CAPSULE W/INTERP 01/08/2021 Smart Pill-delayed gastric emptying; INCISIONAL BIOPSY SKIN SINGLE LESION biopsy of mass over right eye; benign LAPAROSCOPIC CHOLECYSTECTOMY 09/02/2021 PER ORAL PYLOROMYOTOMY (POP) PROCEDURE (COMP 30452) 06/11/2021 Dr. Bray REMV CATARACT EXTRACAP,INSERT LENS Bilateral 2016 SHOULDER SURGERY HX TONSILLECTOMY HX Social History Tobacco Use Smoking status: Former Types: Cigarettes Smokeless tobacco: Never Tobacco comments: during college Vaping Use Vaping Use: Never used Substance Use Topics Alcohol use: Yes Alcohol/week: 12.0 standard drinks of alcohol Types: 12 Cans of Beer (12oz) per week Drug use: Never FAMILY HISTORY Problem Relation Age of Onset other (pulmonary fibrosis) Mother Colon Cancer Father Current Outpatient Medications Medication Sig primidone (MYSOLINE) 50 mg tablet Take 1 tablet by mouth every afternoon. JARDIANCE 10 mg tablet Take 1 tablet by mouth every afternoon. pantoprazole DR (PROTONIX) 40 mg tablet take 1 tablet by mouth twice a day efcsqo-wnmtcpiq-fbhyndw (CREON 36) 36,000-114,000- 180,000 unit delayed release capsule Take 2 caps by mouth 3 times daily with meals and 1 cap with each snack. Take 1st cap before meal starts and the 2nd cap intermediate through. ondansetron (ZOFRAN) 4 mg tablet Take 1 tablet by mouth once daily as needed for nausea/vomiting (for nausea.). amoxicillin (AMOXIL) 500 mg capsule amoxicillin-clavulanic acid (AUGMENTIN) 875-125 mg per tablet Take by mouth. dorzolamide (TRUSOPT) 2 % ophthalmic solution Use in eyes. losartan (COZAAR) 50 mg tablet Take 1 tablet by mouth every afternoon. aspirin, enteric coated (JAILENE LOW DOSE ASPIRIN) 81 mg EC tablet Take by mouth. lamoTRIgine (LAMICTAL) 100 mg tablet take 1/2 tablet by mouth once daily to BE TAKEN ALONG WITH 200 MN... (REFER TO PRESCRIPTION NOTES). rosuvastatin (CRESTOR) 10 mg tablet Take 10 mg by mouth every evening. lamoTRIgine ER (LAMICTAL XR) 250 mg 24 hr tablet Take by mouth once daily. doxepin capsule 10 mg Take 10 mg by mouth as needed. alendronate (FOSAMAX) 70 mg tablet Take 70 mg by mouth one time a week. In AM with cup of water on empty stomach. Nothing else by mouth and stay upright for 30 min. cyanocobalamin, vitamin B-12, (VITAMIN B12 ORAL) Take 1 tablet by mouth once daily. cholecalciferol, vitamin D3, (VITAMIN D3 ORAL) Take 1 capsule by mouth once daily. dorzolamide-timolol (COSOPT) 22.3-6.8 mg/mL ophthalmic solution Use 1 Drop in both eyes twice daily. DULoxetine (CYMBALTA) 60 mg capsule Take 60 mg by mouth once daily. metFORMIN (GLUCOPHAGE) 1,000 mg tablet Take 1,000 mg by mouth twice daily with meals. rosuvastatin (CRESTOR) 40 mg tablet Take 40 mg by mouth daily at bedtime. metoprolol tartrate 75 mg tab Take 75 mg by mouth twice daily. atorvastatin (LIPITOR) 80 mg tablet Take 1 tablet by mouth every evening. (Patient not taking: Reported on 09/21/2023) doxycycline hyclate (VIBRAMYCIN) 100 mg capsule Take by mouth. (Patient not taking: Reported on 05/13/2023) (more content not included)... Normal [facility] CNTHERAPYon 10-11-2023 CNTHERAPY OT/PT/Speech Visit ( PTMDRG) DOUGLAS CALLAWAY JR ([id number]) 1955 M Date Time Provider Department 10/11/23 3:00 PM MARÍA OROSCO PTMG Date Time Provider Department Center 10/11/2023 3:00 PM [id number] OROSCO PTMDRG [facility] Reason for Visit: Physical Therapy [503] Primary Visit Diagnosis:Diabetes mellitus without complication (HCC) [E11.9] Other Visit Diagnoses:Weakness of both lower extremities [R29.898] Abnormality of gait [R26.9] Imbalance [R26.89] Allergies As of Date: 10/11/2023 (No Known Allergies) Date Reviewed: 09/21/2023 Reviewed by: Spring Romero - Fully Assessed Prescriptions as of 10/11/2023 - primidone (MYSOLINE) 50 mg tablet Take 1 tablet by mouth every afternoon. - JARDIANCE 10 mg tablet Take 1 tablet by mouth every afternoon. - pantoprazole DR (PROTONIX) 40 mg tablet take 1 tablet by mouth twice a day - eaheax-udxrmhky-iutgweg (CREON 36) 36,000-114,000- 180,000 unit delayed release capsule Take 2 caps by mouth 3 times daily with meals and 1 cap with each snack. Take 1st cap before meal starts and the 2nd cap intermediate through. - ondansetron (ZOFRAN) 4 mg tablet Take 1 tablet by mouth once daily as needed for nausea/vomiting (for nausea.). - amoxicillin (AMOXIL) 500 mg capsule take 4 capsules by mouth 1 hour prior to procedure - amoxicillin-clavulanic acid (AUGMENTIN) 875-125 mg per tablet Take by mouth. - atorvastatin (LIPITOR) 80 mg tablet Take 1 tablet by mouth every evening. - dorzolamide (TRUSOPT) 2 % ophthalmic solution Use in eyes. - doxycycline hyclate (VIBRAMYCIN) 100 mg capsule Take by mouth. - losartan (COZAAR) 50 mg tablet Take 1 tablet by mouth every afternoon. - aspirin, enteric coated (JAILENE LOW DOSE ASPIRIN) 81 mg EC tablet Take by mouth. - lamoTRIgine (LAMICTAL) 100 mg tablet take 1/2 tablet by mouth once daily to BE TAKEN ALONG WITH 200 MN... (REFER TO PRESCRIPTION NOTES). - rosuvastatin (CRESTOR) 10 mg tablet Take 10 mg by mouth every evening. - lamoTRIgine ER (LAMICTAL XR) 250 mg 24 hr tablet Take by mouth once daily. - doxepin capsule 10 mg Take 10 mg by mouth as needed. - alendronate (FOSAMAX) 70 mg tablet Take 70 mg by mouth one time a week. In AM with cup of water on empty stomach. Nothing else by mouth and stay upright for 30 min. - oxyCODONE-acetaminophen (PERCOCET) 5-325 mg tablet Take 1-2 tablets by mouth every 8 hours as needed for pain. - ondansetron (ZOFRAN) 4 mg tablet take 1 tablet by mouth every 8 hours if needed for nausea - cyanocobalamin, vitamin B-12, (VITAMIN B12 ORAL) Take 1 tablet by mouth once daily. - cholecalciferol, vitamin D3, (VITAMIN D3 ORAL) Take 1 capsule by mouth once daily. - aspirin (JAILENE CHEWABLE ASPIRIN) 81 mg chewable tablet Take 81 mg by mouth once daily. - amLODIPine (NORVASC) 10 mg tablet Take 10 mg by mouth once daily. - dorzolamide-timolol (COSOPT) 22.3-6.8 mg/mL ophthalmic solution Use 1 Drop in both eyes twice daily. - DULoxetine (CYMBALTA) 60 mg capsule Take 60 mg by mouth once daily. - metFORMIN (GLUCOPHAGE) 1,000 mg tablet Take 1,000 mg by mouth twice daily with meals. - rosuvastatin (CRESTOR) 40 mg tablet Take 40 mg by mouth daily at bedtime. - metoprolol tartrate 75 mg tab Take 75 mg by mouth twice daily. Funnel Coater: Therapy (PT/OT/Speech/Resp) ID: [id number] 10/11/2023 3:31 PM Author: MARÍA OROSCO Signed by MARÍA OROSCO COMPUTER FORENSIC EXAMINER on 10/11/2023 at 3:32 PM Document text: Program_ID:[id number] Access Code: [email or web address] URL: [email or web address] Date: 10-11-2023 Prepared By: Karla Castro Program Notes Exercises - 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 and working on turning in 8 steps - 1 x daily - 7 x weekly - 3 sets - 10 reps - sidestepping in and out of bucket - 1 x daily - 7 x weekly - 3 sets - 10 reps - Sit to Stand - 1 x daily - 7 x weekly - 3 sets - 10 reps - Supine Bridge - 1 x daily - x weekly - 2 sets - 10 reps - Supine Active Straight Leg Raise - 1 x daily - x weekly - 2 sets - 10 reps - Hooklying Clamshell with Resistance - 1 x daily - x weekly - 2 sets - 10 reps [facility] THERAPY NTon 10-11-2023 THERAPY NT HNO ID: [id number] Author: MARÍA OROSCO PTA Service: ? Author Type: Technical Services Manager Type: Therapy (PT/OT/Speech/Resp) Filed: 10/11/2023 15:32 Note Text: Program_ID:[id number] Access Code: [email or web address] URL: [email or web address] Date: 10-11-2023 Prepared By: Karla Castro Program Notes Exercises - 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 and working on turning in 8 steps - 1 x daily - 7 x weekly - 3 sets - 10 reps - sidestepping in and out of bucket - 1 x daily - 7 x weekly - 3 sets - 10 reps - Sit to Stand - 1 x daily - 7 x weekly - 3 sets - 10 reps - Supine Bridge - 1 x daily - x weekly - 2 sets - 10 reps - Supine Active Straight Leg Raise - 1 x daily - x weekly - 2 sets - 10 reps - Hooklying Clamshell with Resistance - 1 x daily - x weekly - 2 sets - 10 reps [facility] CNTHERAPYon 10-06-2023 CNTHERAPY OT/PT/Speech Visit ( PTMDRG) DOUGLAS CALLAWAY JR ([id number]) 1955 M Date Time Provider Department 10/06/23 3:30 PM MARÍA OROSCO PTMSOTERO Date Time Provider Department Center 10/06/2023 3:30 PM [id number] OROSCO [facility] Reason for Visit: Physical Therapy [503] Primary Visit Diagnosis:Diabetes mellitus without complication (HCC) [E11.9] Other Visit Diagnoses:Weakness of both lower extremities [R29.898] Abnormality of gait [R26.9] Imbalance [R26.89] Allergies As of Date: 10/06/2023 (No Known Allergies) Date Reviewed: 09/21/2023 Reviewed by: Spring Romero - Fully Assessed Prescriptions as of 10/06/2023 - primidone (MYSOLINE) 50 mg tablet Take 1 tablet by mouth every afternoon. - JARDIANCE 10 mg tablet Take 1 tablet by mouth every afternoon. - pantoprazole DR (PROTONIX) 40 mg tablet take 1 tablet by mouth twice a day - tmqxzy-cogzulma-ctdwksc (CREON 36) 36,000-114,000- 180,000 unit delayed release capsule Take 2 caps by mouth 3 times daily with meals and 1 cap with each snack. Take 1st cap before meal starts and the 2nd cap intermediate through. - ondansetron (ZOFRAN) 4 mg tablet Take 1 tablet by mouth once daily as needed for nausea/vomiting (for nausea.). - amoxicillin (AMOXIL) 500 mg capsule take 4 capsules by mouth 1 hour prior to procedure - amoxicillin-clavulanic acid (AUGMENTIN) 875-125 mg per tablet Take by mouth. - atorvastatin (LIPITOR) 80 mg tablet Take 1 tablet by mouth every evening. - dorzolamide (TRUSOPT) 2 % ophthalmic solution Use in eyes. - doxycycline hyclate (VIBRAMYCIN) 100 mg capsule Take by mouth. - losartan (COZAAR) 50 mg tablet Take 1 tablet by mouth every afternoon. - aspirin, enteric coated (JAILENE LOW DOSE ASPIRIN) 81 mg EC tablet Take by mouth. - lamoTRIgine (LAMICTAL) 100 mg tablet take 1/2 tablet by mouth once daily to BE TAKEN ALONG WITH 200 MN... (REFER TO PRESCRIPTION NOTES). - rosuvastatin (CRESTOR) 10 mg tablet Take 10 mg by mouth every evening. - lamoTRIgine ER (LAMICTAL XR) 250 mg 24 hr tablet Take by mouth once daily. - doxepin capsule 10 mg Take 10 mg by mouth as needed. - alendronate (FOSAMAX) 70 mg tablet Take 70 mg by mouth one time a week. In AM with cup of water on empty stomach. Nothing else by mouth and stay upright for 30 min. - oxyCODONE-acetaminophen (PERCOCET) 5-325 mg tablet Take 1-2 tablets by mouth every 8 hours as needed for pain. - ondansetron (ZOFRAN) 4 mg tablet take 1 tablet by mouth every 8 hours if needed for nausea - cyanocobalamin, vitamin B-12, (VITAMIN B12 ORAL) Take 1 tablet by mouth once daily. - cholecalciferol, vitamin D3, (VITAMIN D3 ORAL) Take 1 capsule by mouth once daily. - aspirin (JAILENE CHEWABLE ASPIRIN) 81 mg chewable tablet Take 81 mg by mouth once daily. - amLODIPine (NORVASC) 10 mg tablet Take 10 mg by mouth once daily. - dorzolamide-timolol (COSOPT) 22.3-6.8 mg/mL ophthalmic solution Use 1 Drop in both eyes twice daily. - DULoxetine (CYMBALTA) 60 mg capsule Take 60 mg by mouth once daily. - metFORMIN (GLUCOPHAGE) 1,000 mg tablet Take 1,000 mg by mouth twice daily with meals. - rosuvastatin (CRESTOR) 40 mg tablet Take 40 mg by mouth daily at bedtime. - metoprolol tartrate 75 mg tab Take 75 mg by mouth twice daily. [facility] CNTHERAPYon 09-23-2023 CNTHERAPY OT/PT/Speech Visit ( PTMDRG) DOUGLAS CALLAWAY JR ([id number]) 1955 M Date Time Provider Department 09/23/23 2:45 PM KARLA CASTRO PTMDRG Date Time Provider Department Center 09/23/2023 2:45 PM [id number] for Visit: PT Progress Note [2886] Primary Visit Diagnosis:Diabetes mellitus without complication (HCC) [E11.9] Other Visit Diagnoses:Weakness of both lower extremities [R29.898] Abnormality of gait [R26.9] Imbalance [R26.89] Allergies As of Date: 09/23/2023 (No Known Allergies) Date Reviewed: 09/21/2023 Reviewed by: Spring Romero - Fully Assessed Prescriptions as of 09/23/2023 - primidone (MYSOLINE) 50 mg tablet Take 1 tablet by mouth every afternoon. - JARDIANCE 10 mg tablet Take 1 tablet by mouth every afternoon. - amoxicillin-clavulanate potassium (AUGMENTIN) 875-125 mg per tablet Take 1 tablet by mouth two times a day for 10 days. - pantoprazole DR (PROTONIX) 40 mg tablet take 1 tablet by mouth twice a day - mhzomh-hhvtvooa-rkxlqwc (CREON 36) 36,000-114,000- 180,000 unit delayed release capsule Take 2 caps by mouth 3 times daily with meals and 1 cap with each snack. Take 1st cap before meal starts and the 2nd cap intermediate through. - ondansetron (ZOFRAN) 4 mg tablet Take 1 tablet by mouth once daily as needed for nausea/vomiting (for nausea.). - amoxicillin (AMOXIL) 500 mg capsule take 4 capsules by mouth 1 hour prior to procedure - amoxicillin-clavulanic acid (AUGMENTIN) 875-125 mg per tablet Take by mouth. - atorvastatin (LIPITOR) 80 mg tablet Take 1 tablet by mouth every evening. - dorzolamide (TRUSOPT) 2 % ophthalmic solution Use in eyes. - doxycycline hyclate (VIBRAMYCIN) 100 mg capsule Take by mouth. - losartan (COZAAR) 50 mg tablet Take 1 tablet by mouth every afternoon. - aspirin, enteric coated (JAILENE LOW DOSE ASPIRIN) 81 mg EC tablet Take by mouth. - lamoTRIgine (LAMICTAL) 100 mg tablet take 1/2 tablet by mouth once daily to BE TAKEN ALONG WITH 200 MN... (REFER TO PRESCRIPTION NOTES). - rosuvastatin (CRESTOR) 10 mg tablet Take 10 mg by mouth every evening. - lamoTRIgine ER (LAMICTAL XR) 250 mg 24 hr tablet Take by mouth once daily. - doxepin capsule 10 mg Take 10 mg by mouth as needed. - alendronate (FOSAMAX) 70 mg tablet Take 70 mg by mouth one time a week. In AM with cup of water on empty stomach. Nothing else by mouth and stay upright for 30 min. - oxyCODONE-acetaminophen (PERCOCET) 5-325 mg tablet Take 1-2 tablets by mouth every 8 hours as needed for pain. - ondansetron (ZOFRAN) 4 mg tablet take 1 tablet by mouth every 8 hours if needed for nausea - cyanocobalamin, vitamin B-12, (VITAMIN B12 ORAL) Take 1 tablet by mouth once daily. - cholecalciferol, vitamin D3, (VITAMIN D3 ORAL) Take 1 capsule by mouth once daily. - aspirin (JAILENE CHEWABLE ASPIRIN) 81 mg chewable tablet Take 81 mg by mouth once daily. - amLODIPine (NORVASC) 10 mg tablet Take 10 mg by mouth once daily. - dorzolamide-timolol (COSOPT) 22.3-6.8 mg/mL ophthalmic solution Use 1 Drop in both eyes twice daily. - DULoxetine (CYMBALTA) 60 mg capsule Take 60 mg by mouth once daily. - metFORMIN (GLUCOPHAGE) 1,000 mg tablet Take 1,000 mg by mouth twice daily with meals. - rosuvastatin (CRESTOR) 40 mg tablet Take 40 mg by mouth daily at bedtime. - metoprolol tartrate 75 mg tab Take 75 mg by mouth twice daily. [facility] 09-21-2023 [facility] Office Visit (OTOLMM ) CESIADOUGLAS VIVEROS JR ([id number]) 1955 M Date Time Provider Department 09/21/23 8:40 AM OLESYA VASQUEZ OTCAMERON During your visit today, we recorded the following information about you: Olesya Vasquez MD 09/21/2023 9:55 AM Signed IMPRESSION 68-year-old male with nasal bone fracture causing external nasal deviation. RECOMMENDATION/PLAN I discussed the patient regarding his options which includes doing nothing versus close reduction of nasal bone fracture. I informed that if you choose to do nothing, he will have a permanent external deviation of his nose. After our discussion, patient wishes to proceed with close reduction of nasal bone fracture. He understand the risk include but not limited to bleeding, infection, risk of anesthesia, persistent external nasal deviation after the procedure, malunion and nonunion and potential need for further surgery. Informed consent was obtained. Will get him scheduled for the procedure in the near future. 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 Chief Complaint Nasal bone fracture History of Present Illness Douglas Callaway JR is a 68 year old male present for evaluation nasal bone fracture. Patient had a fall and hit his face on September 16, 2023. Patient had a CT scan of his face in the emergency room which was reviewed and interpreted by me. The CT scan showed patient had a septal and nasal bone fracture. His nose was packed due to epistaxis. Patient was on baby aspirin. He has not had any further bleeding since nasal packing. PAST MEDICAL HISTORY Diagnosis Date Bipolar II disorder (HCC) CAD (coronary artery disease) 12/2019 CABG x 3 Carotid artery occlusion with cerebral infarction (HCC) pt denies this; CVA was secondary to HTN CVA (cerebral vascular accident) (HCC) 2003 related to untreated HTN; no residual effects Depression Elevated LFTs Gastroparesis POP procedure 06/11/21 GERD (gastroesophageal reflux disease) Hepatitis A 09/2018 Resolved HTN (hypertension) Hyperlipemia Insomnia CABRERA (obstructive sleep apnea) does not currently have a CPAP Osteoporoses Renal insufficiency TIA (transient ischemic attack) prior to CVA in 2003, none since Type 2 diabetes mellitus (HCC) 2018 Iván Case PCP PAST SURGICAL HISTORY Procedure Laterality Date COLONOSCOPY GEN ANES 09/2017 normal per patient CORONARY ART/GRFT ANGIO ARIADNA 12/15/2019 [facility] ; CABG x 3 EGD 08/2020 at [facility] EGD WITH BIOPSY(S) 05/13/2023 Dr. Fajardo ERCP STENT PLACEMENT BILIARY/PANCREATIC DUCT 09/02/2021 Dr Yarbrough GI TRANSIT AND PRES CARLEY WIRELESS CAPSULE W/INTERP 01/08/2021 Smart Pill-delayed gastric emptying; INCISIONAL BIOPSY SKIN SINGLE LESION biopsy of mass over right eye; benign LAPAROSCOPIC CHOLECYSTECTOMY 09/02/2021 PER ORAL PYLOROMYOTOMY (POP) PROCEDURE (COMP 94147) 06/11/2021 Dr. Bray REMV CATARACT EXTRACAP,INSERT LENS Bilateral 2016 SHOULDER SURGERY HX TONSILLECTOMY HX FAMILY HISTORY Problem Relation Age of Onset other (pulmonary fibrosis) Mother Colon Cancer Father CURRENT OUTPATIENT MEDICATIONS Current Outpatient Medications on File Prior to Visit Medication Sig primidone (MYSOLINE) 50 mg tablet Take 1 tablet by mouth every afternoon. JARDIANCE 10 mg tablet Take 1 tablet by mouth every afternoon. amoxicillin-clavulanate potassium (AUGMENTIN) 875-125 mg per tablet Take 1 tablet by mouth two times a day for [address]. [address] (PROTONIX) 40 mg tablet take 1 tablet by mouth twice a day kfnbqp-nhofzdwh-nhjksfa (CREON 36) 36,000-114,000- 180,000 unit delayed release capsule Take 2 caps by mouth 3 times daily with meals and 1 cap with each snack. Take 1st cap before meal starts and the 2nd cap intermediate through. ondansetron (ZOFRAN) 4 mg tablet Take 1 tablet by mouth once daily as needed for nausea/vomiting (for nausea.). losartan (COZAAR) 50 mg tablet Take 1 tablet by mouth every afternoon. aspirin, enteric coated (JAILENE LOW DOSE ASPIRIN) 81 mg EC tablet Take by mouth. lamoTRIgine (LAMICTAL) 100 mg tablet take 1/2 tablet by mouth once daily to BE TAKEN ALONG WITH 200 MN... (REFER TO PRESCRIPTION NOTES). doxepin capsule 10 mg Take 10 mg by mouth as needed. alendronate (FOSAMAX) 70 mg tablet Take 70 mg by mouth one time a week. In AM with cup of water on empty stomach. Nothing else by mouth and stay upright for 30 min. cyanocobalamin, vitamin B-12, (VITAMIN B12 ORAL) Take 1 tablet by mouth once daily. cholecalciferol, vitamin D3, (VITAMIN D3 ORAL) Take 1 capsule by mouth once daily. dorzolamide-timolol (COSOPT) 22.3-6.8 mg/mL ophthalmic solution Use 1 Drop in both eyes twice daily. DULoxetine (CYMBALTA) 60 mg capsule Take 60 mg by mouth once daily. metFORMIN (GLUCOPHAGE) 1,000 mg (more content not included)... Normal [facility] ALLIED HEALTHon 09-16-2023 ALLIED HEALTH HNO ID: [id number] Author: KISHOR RODRIGUEZ Tech Service: ? Author Type: Digital Production Operator Type: Allied Health Filed: 09/16/2023 17:27 Note Text: Radiology Service Progress Note PATIENT NAME: Douglas Callaway JR DATE OF SERVICE: September 16, 2023 TIME: 5:27 PM PATIENT IDENTITY VERIFICATION COMPLETED USING TWO (2) IDENTIFIERS: Name and Date of confirmed by patient verbally and Name and Date of confirmed by identification band. FALL SCREENING: Has the patient had 2 falls in the last year or 1 fall with injury or currently using an Ambulatory Assistive Device (Walker, Cane, Wheelchair, Crutches, etc.)? Emergency Room Patient: Screened in ED PATIENT GENDER DATA: Male PATIENT RELEVANT IMPLANT DATA REVIEWED: Not Applicable RADIOLOGY DEPARTMENT: General X-ray: Exam(s) Completed: Upper Extremity X-Ray(s): Hand, left PERIPHERAL IV DATA: Not applicable SIGNED BY: Bernarda Meraz September 16, 2023 5:27 PM Normal [facility] CBC W Auto Differential pane l (Bld)on 09-16-2023 Basophils (Bld) [#/Vol] 10*3/uL Normal <0.11 [facility] Comment on above: Order Comment: Speci men Type: BLOOD SPECIMENOrdering Facility: [facility] Address: [address] [place] [address] Performed By: #### 5 7021-8 ####[facility]ORY[facility] [id number] [place] [address] [place] Basophils/100 WBC (Bld) 0.2 % Normal [facility] Comment on above: Order Comment: Speci men Type: BLOOD SPECIMENOrdering Facility: [facility] Address: [address] [place] [address] Performed By: #### 5 7021-8 ####[facility]ORY[facility] [id number] [place] [address] [place] Differential cell count method Nom (Bld) Auto Normal [facility] Comment on above: Order Comment: Speci men Type: BLOOD SPECIMENOrdering Facility: [facility] Address: [address] [place] [address] Performed By: #### 5 7021-8 ####REYNOSO LABORATORYCLIA [id number] [place] [address] [place] Eosinophils (Bld) [#/Vol] 0.18 10*3/uL Normal <0.46 [facility] Comment on above: Order Comment: Speci men Type: BLOOD SPECIMENOrdering Facility: [facility] Address: [address] [place] [address] Performed By: #### 5 7021-8 ####REYNOSO LABORATORYCLIA [id number] [address] [place] Eosinophils/100 WBC (Bld) 1.9 % Normal [facility] Comment on above: Order Comment: Speci men Type: BLOOD SPECIMENOrdering Facility: [facility] Address: [address] [place] [address] Performed By: #### 5 7021-8 ####REYNOSO LABORATORYCLIA [id number] [address] [place] Erythrocyte distribution width (RBC) [Ratio] 13.6 % Normal 11.5-15.0 [facility] Comment on above: Order Comment: Speci men Type: BLOOD SPECIMENOrdering Facility: [facility] Address: [address] [place] [address] Performed By: #### 5 7021-8 ####REYNOSO LABORATORYCLIA [id number] [address] [place] Hematocrit (Bld) [Volume fraction] 39.3 % Normal 39.0-51.0 [facility] Comment on above: Order Comment: Speci men Type: BLOOD SPECIMENOrdering Facility: [facility] Address: [address] [place] [address] Performed By: #### 5 7021-8 ####REYNOSO LABORATORYCLIA [id number] [place] [address] [place] Hemoglobin (Bld) [Mass/Vol] 13.1 g/dL Normal 13.0-17.0 [facility] Comment on above: Order Comment: Speci men Type: BLOOD SPECIMENOrdering Facility: [facility] Address: [address] [place] [address] Performed By: #### 5 7021-8 ####REYNOSO LABORATORYCLIA [id number] [place] [address] [place] Immature granulocytes (Bld) [#/Vol] 0.08 10*3/uL Normal <0.10 [facility] Comment on above: Order Comment: Speci men Type: BLOOD SPECIMENOrdering Facility: [facility] Address: [address] [place] [address] Performed By: #### 5 7021-8 ####REYNOSO LABORATORYCLIA [id number] [place] [address] [place] Immature granulocytes/100 WBC (Bld) 0.8 % Normal [facility] Comment on above: Order Comment: Speci men Type: BLOOD SPECIMENOrdering Facility: [facility] Address: [address] [place] [address] Performed By: #### 5 7021-8 ####REYNOSO LABORATORYCLIA [id number] [place] [address] [place] Lymphocytes (Bld) [#/Vol] 1.26 10*3/uL Normal 1.00-4.00 [facility] Comment on above: Order Comment: Speci men Type: BLOOD SPECIMENOrdering Facility: [facility] Address: [address] [place] [address] Performed By: #### 5 7021-8 ####REYNOSO LABORATORYCLIA [id number] [place] [address] [facility] [place] Lymphocytes/100 WBC (Bld) 13.2 % Normal [facility] Comment on above: Order Comment: Speci men Type: BLOOD SPECIMENOrdering Facility: [facility] Address: [address] [place] [address] Performed By: #### 5 7021-8 ####REYNOSO LABORATORYCLIA [id number] [address] MCH (RBC) [Entitic mass] 31.5 pg Normal 26.0-34.0 [facility] Comment on above: Order Comment: Speci men Type: BLOOD SPECIMENOrdering Facility: [facility] Address: [address] [place] [address] Performed By: #### 5 7021-8 ####REYNOSO LABORATORYCLIA [id number] [address] MCHC (RBC) [Mass/Vol] 33.3 g/dL Normal 30.5-36.0 [facility] Comment on above: Order Comment: Speci men Type: BLOOD SPECIMENOrdering Facility: [facility] Address: [address] [place] [address] Performed By: #### 5 7021-8 ####REYNOSO LABORATORYCLIA [id number] [address] MCV (RBC) [Entitic vol] 94.5 fL Normal 80.0-100.0 [facility] Comment on above: Order Comment: Speci men Type: BLOOD SPECIMENOrdering Facility: [facility] Address: [address] [place] [address] Performed By: #### 5 7021-8 ####REYNOSO LABORATORYCLIA [id number] [address] Monocytes (Bld) [#/Vol] 0.80 10*3/uL Normal <0.87 [facility] Comment on above: Order Comment: Speci men Type: BLOOD SPECIMENOrdering Facility: [facility] Address: [address] [place] [address] Performed By: #### 5 7021-8 ####REYNOSO LABORATORYCLIA [id number] [address] Monocytes/100 WBC (Bld) 8.4 % Normal [facility] Comment on above: Order Comment: Speci men Type: BLOOD SPECIMENOrdering Facility: [facility] Address: [address] [place] [address] Performed By: #### 5 7021-8 ####REYNOSO LABORATORYCLIA [id number] [place] [address] [place] Neutrophils (Bld) [#/Vol] 7.22 10*3/uL Normal 1.45-7.50 [facility] Comment on above: Order Comment: Speci men Type: BLOOD SPECIMENOrdering Facility: [facility] Address: [address] [place] [address] Performed By: #### 5 7021-8 ####REYNOSO LABORATORYCLIA [id number] [address] [place] Neutrophils/100 WBC (Bld) 75.5 % Normal [facility] Comment on above: Order Comment: Speci men Type: BLOOD SPECIMENOrdering Facility: [facility] Address: [address] [place] [address] Performed By: #### 5 7021-8 ####REYNOSO LABORATORYCLIA [id number] [address] [place] Nucleated RBC (Bld) [#/Vol] 10*3/uL Normal <0.01 [facility] Comment on above: Order Comment: Speci men Type: BLOOD SPECIMENOrdering Facility: [facility] Address: [address] [place] [address] Performed By: #### 5 7021-8 ####REYNOSO LABORATORYCLIA [id number] [address] Nucleated RBC/100 WBC (Bld) [Ratio] 0.0 /100 WBC Normal [facility] Comment on above: Order Comment: Speci men Type: BLOOD SPECIMENOrdering Facility: [facility] Address: [address] [place] [address] Performed By: #### 5 7021-8 ####REYNOSO LABORATORYCLIA [id number] [address] Platelet mean volume (Bld) [Entitic vol] 9.9 fL Normal 9.0-12.7 [facility] Comment on above: Order Comment: Speci men Type: BLOOD SPECIMENOrdering Facility: [facility] Address: [address] [place], [place] [address] [id number] Performed By: #### 5 7021-8 ####REYNOSO LABORATORYCLIA [id number] [address] [place] Platelets (Bld) [#/Vol] 221 10*3/uL Normal 150-400 [facility] Comment on above: Order Comment: Speci men Type: BLOOD SPECIMENOrdering Facility: [facility] Address: [place] [address] Performed By: #### 5 7021-8 ####REYNOSO LABORATORYCLIA [id number] [place] [address] [place] RBC (Bld) [#/Vol] 4.16 10*6/uL Low 4.20-6.[address] [facility] Comment on above: Order Comment: Speci men Type: BLOOD SPECIMENOrdering Facility: [facility] Address: [place] [address] Performed By: #### 5 7021-8 ####REYNOSO LABORATORYCLIA [id number] [place] [address] [facility] [place] WBC (Bld) [#/Vol] 9.56 10*3/uL Normal 3.70-11.[address] [facility] Comment on above: Order Comment: Speci men Type: BLOOD SPECIMENOrdering Facility: [facility] Address: [place] [address] Performed By: #### 5 7021-8 ####REYNOSO LABORATORYCLIA [id number] [address] [place] CNTHERAPYon 09-16-2023 CNTHERAPY OT/PT/Speech Visit ( PTMDRG) DOUGLAS CALLAWAY JR ([id number]) 1955 Date Time Provider Department 09/16/23 2:45 PM KARLA CASTRO PTMDRG Date Time Provider Department Center 09/16/2023 2:45 PM [id number] CASTRO PTMDRG [facility] Reason for Visit: Appointment Cancelled [1023] Primary Visit Diagnosis:Diabetes mellitus without complication (HCC) [E11.9] Other Visit Diagnoses:Weakness of both lower extremities [R29.898] Abnormality of gait [R26.9] Imbalance [R26.89] Allergies As of Date: 09/16/2023 (No Known Allergies) Date Reviewed: 07/27/2023 Reviewed by: Ross Dimas MA - Fully Assessed Prescriptions as of 09/16/2023 - pantoprazole DR (PROTONIX) 40 mg tablet take 1 tablet by mouth twice a day - jqcdti-btqwxrge-tmcnxan (CREON 36) 36,000-114,000- 180,000 unit delayed release capsule Take 2 caps by mouth 3 times daily with meals and 1 cap with each snack. Take 1st cap before meal starts and the 2nd cap intermediate through. - ondansetron (ZOFRAN) 4 mg tablet Take 1 tablet by mouth once daily as needed for nausea/vomiting (for nausea.). - amoxicillin (AMOXIL) 500 mg capsule take 4 capsules by mouth 1 hour prior to procedure - amoxicillin-clavulanic acid (AUGMENTIN) 875-125 mg per tablet Take by mouth. - atorvastatin (LIPITOR) 80 mg tablet Take 1 tablet by mouth every evening. - dorzolamide (TRUSOPT) 2 % ophthalmic solution Use in eyes. - doxycycline hyclate (VIBRAMYCIN) 100 mg capsule Take by mouth. - losartan (COZAAR) 50 mg tablet Take 1 tablet by mouth every afternoon. - aspirin, enteric coated ([place] LOW DOSE ASPIRIN) 81 mg EC tablet Take by mouth. - lamoTRIgine (LAMICTAL) 100 mg tablet take 1/2 tablet by mouth once daily to BE TAKEN ALONG WITH 200 MN... (REFER TO PRESCRIPTION NOTES). - rosuvastatin (CRESTOR) 10 mg tablet Take 10 mg by mouth every evening. - lamoTRIgine ER (LAMICTAL XR) 250 mg 24 hr tablet Take by mouth once daily. - doxepin capsule 10 mg Take 10 mg by mouth as needed. - alendronate (FOSAMAX) 70 mg tablet Take 70 mg by mouth one time a week. In AM with cup of water on empty stomach. Nothing else by mouth and stay upright for 30 min. - oxyCODONE-acetaminophen (PERCOCET) 5-325 mg tablet Take 1-2 tablets by mouth every 8 hours as needed for pain. - ondansetron (ZOFRAN) 4 mg tablet take 1 tablet by mouth every 8 hours if needed for nausea - cyanocobalamin, vitamin B-12, (VITAMIN B12 ORAL) Take 1 tablet by mouth once daily. - cholecalciferol, vitamin D3, (VITAMIN D3 ORAL) Take 1 capsule by mouth once daily. - aspirin ([place] CHEWABLE ASPIRIN) 81 mg chewable tablet Take 81 mg by mouth once daily. - amLODIPine (NORVASC) 10 mg tablet Take 10 mg by mouth once daily. - dorzolamide-timolol (COSOPT) 22.3-6.8 mg/mL ophthalmic solution Use 1 Drop in both eyes twice daily. - DULoxetine (CYMBALTA) 60 mg capsule Take 60 mg by mouth once daily. - metFORMIN (GLUCOPHAGE) 1,000 mg tablet Take 1,000 mg by mouth twice daily with meals. - rosuvastatin (CRESTOR) 40 mg tablet Take 40 mg by mouth daily at bedtime. - metoprolol tartrate 75 mg tab Take 75 mg by mouth twice daily. Normal [facility] CT BRAIN WO IVCONon 09-16-[address] BRAIN WO IVCON * * *Final Report* * * DATE OF EXAM: Sep 16 2023 5:09PM [facility] [place] BRAIN WO IVCON / PROCEDURE REASON: Subarachnoid hemorrhage (SAH) suspected * * * * Physician Interpretation * * * * 3 studies: CT Brain/CT Facial Bones/CT C-spine CT BRAIN NO CONTRAST History: Subarachnoid hemorrhage (SAH) suspected Fall facial injury(laceration) at hospital Comparison: None. Parameters: Routine CT of the brain without IV contrast. Dose-Length Product (DLP): 1375 mGy*cm. CT Dose Reduction Employed: mAs-kVp adjusted based on patient size-age BRAIN RESULT: Acute change: No evidence of an acute infarct or other acute parenchymal process. Hemorrhage: ECASS hemorrhagic transformation score: Not Applicable Mass Effect / Mass Lesion: There is no evidence of an intracranial mass or extraaxial fluid collection. No significant mass effect. Chronic ischemic change: None. Parenchyma: There is no significant volume loss. The brain parenchyma is otherwise within normal limits for age. Ventricles: No evidence of hydrocephalus. Other: The skull, visualized orbits and extracranial soft tissues are grossly normal. CT facial bones: HISTORY: 68 years old Clinical information: Subarachnoid hemorrhage (SAH) suspected TECHNIQUE: Description of study: Coronal and axial images CT Ionizing Radiation: CT Dose-Length Product (DLP):1375 mGy*cm CT Dose Reduction Employed: mAs-kVp adjusted based on patient size-age Findings: Sinus Chambers: Maxillary sinuses: Clear . Ethmoid sinuses: Clear . Sphenoid sinuses: Large amount of mucosal thickening and consolidation in the RIGHT side of the sphenoid sinus Frontal sinuses: Clear . No air-fluid levels are seen. The ostiomeatal complex regions are patent. * Multiple nasal bone fractures of both nasal bones with marked medial compression of the lateral fragments of the distal LEFT nasal bone. * Mild medial displacement of multiple fragments bilaterally. * Large amount of soft tissue swelling over the nasal area and anterior to the orbits The mastoid air cells appear well-aerated. No bony abnormalities are seen. EXAMINATION: CT OF THE CERVICAL SPINE WITHOUT CONTRAST History: Subarachnoid hemorrhage (SAH) suspected Fall facial injury(laceration) at hospital Technique: Routine CT of the cervical spine without IV contrast. Spiral, high resolution axial images were obtained from the skull base to the cervicothoracic junction with sagittal and coronal planar reconstructions CT Dose-Length Product (DLP): 1375 mGy*cm CT Dose Reduction Employed: mAs-kVp adjusted based on patient size-age RESULT: Counting reference: Craniocervical junction. Alignment: Alignment is anatomic. Craniocervical junction: Craniocervical junction is normal. Osseous structures/fracture: No evidence of a lytic or blastic process in the visualized spine. No evidence of acute or chronic fracture. Cervical soft tissues: The paraspinal soft tissues planes are maintained. Degenerative changes: Marked disc space narrowing C3-4 through C6-7. Mild posterior spurring at multiple levels Impression: 1. NO EVIDENCE OF AN ACUTE INTRACRANIAL PROCESS 2. Extremely large number of nasal bone fractures as discussed. Also a very large amount of soft tissue swelling over the nasal area and over the area anterior to the orbits 3. No other acute fractures of the facial bones identified 4. Marked degenerative changes in the spine 5. No acute abnormalities of the cervical spine Toll Ticket Clerk: SEN Transcribe Date/Time: Sep 16 2023 5:24P Dictated by : CHITRA HARRIS DO This examination was interpreted and the report reviewed and electronically signed by: CHITRA HARRIS DO on Sep 16 2023 5:35PM EST [id number] [facility] CT CERVICAL SPINE WO IVCONon 09-16-2023 CT CERVICAL SPINE WO IVCON * * *Final Report* * * DATE OF EXAM: Sep 16 2023 5:09PM [facility] [place] - CT CERVICAL SPINE WO IVCON / PROCEDURE REASON: Spine fracture, cervical, traumatic * * * * Physician Interpretation * * * * 3 studies: CT Brain/CT Facial Bones/CT C-spine CT BRAIN NO CONTRAST History: Subarachnoid hemorrhage (SAH) suspected Fall facial injury(laceration) at hospital Comparison: None. Parameters: Routine CT of the brain without IV contrast. Dose-Length Product (DLP): 1375 mGy*cm. CT Dose Reduction Employed: mAs-kVp adjusted based on patient size-age BRAIN RESULT: Acute change: No evidence of an acute infarct or other acute parenchymal process. Hemorrhage: ECASS hemorrhagic transformation score: Not Applicable Mass Effect / Mass Lesion: There is no evidence of an intracranial mass or extraaxial fluid collection. No significant mass effect. Chronic ischemic change: None. Parenchyma: There is no significant volume loss. The brain parenchyma is otherwise within normal limits for age. Ventricles: No evidence of hydrocephalus. Other: The skull, visualized orbits and extracranial soft tissues are grossly normal. CT facial bones: HISTORY: 68 years old Clinical information: Subarachnoid hemorrhage (SAH) suspected TECHNIQUE: Description of study: Coronal and axial images CT Ionizing Radiation: CT Dose-Length Product (DLP):1375 mGy*cm CT Dose Reduction Employed: mAs-kVp adjusted based on patient size-age Findings: Sinus Chambers: Maxillary sinuses: Clear . Ethmoid sinuses: Clear . Sphenoid sinuses: Large amount of mucosal thickening and consolidation in the RIGHT side of the sphenoid sinus Frontal sinuses: Clear . No air-fluid levels are seen. The ostiomeatal complex regions are patent. * Multiple nasal bone fractures of both nasal bones with marked medial compression of the lateral fragments of the distal LEFT nasal bone. * Mild medial displacement of multiple fragments bilaterally. * Large amount of soft tissue swelling over the nasal area and anterior to the orbits The mastoid air cells appear well-aerated. No bony abnormalities are seen. EXAMINATION: CT OF THE CERVICAL SPINE WITHOUT CONTRAST History: Subarachnoid hemorrhage (SAH) suspected Fall facial injury(laceration) at hospital Technique: Routine CT of the cervical spine without IV contrast. Spiral, high resolution axial images were obtained from the skull base to the cervicothoracic junction with sagittal and coronal planar reconstructions CT Dose-Length Product (DLP): 1375 mGy*cm CT Dose Reduction Employed: mAs-kVp adjusted based on patient size-age RESULT: Counting reference: Craniocervical junction. Alignment: Alignment is anatomic. Craniocervical junction: Craniocervical junction is normal. Osseous structures/fracture: No evidence of a lytic or blastic process in the visualized spine. No evidence of acute or chronic fracture. Cervical soft tissues: The paraspinal soft tissues planes are maintained. Degenerative changes: Marked disc space narrowing C3-4 through C6-7. Mild posterior spurring at multiple levels Impression: 1. NO EVIDENCE OF AN ACUTE INTRACRANIAL PROCESS 2. Extremely large number of nasal bone fractures as discussed. Also a very large amount of soft tissue swelling over the nasal area and over the area anterior to the orbits 3. No other acute fractures of the facial bones identified 4. Marked degenerative changes in the spine 5. No acute abnormalities of the cervical spine Toll Ticket Clerk: SEN Transcribe Date/Time: Sep 16 2023 5:24P Dictated by : CHITRA HARRIS DO This examination was interpreted and the report reviewed and electronically signed by: CHITRA HARRIS DO on Sep 16 2023 5:35PM EST [id number] [facility] CT FACIAL BONE/NAN WO IVCON on 09-16-2023 CT FACIAL BONE/NAN WO IVCON * * *Final Report* * * DATE OF EXAM: Sep 16 2023 5:09PM [facility] [place] - CT FACIAL BONE/NAN WO IVCON / PROCEDURE REASON: Maxillofacial pain * * * * Physician Interpretation * * * * 3 studies: CT Brain/CT Facial Bones/CT C-spine CT BRAIN NO CONTRAST History: Subarachnoid hemorrhage (SAH) suspected Fall facial injury(laceration) at hospital Comparison: None. Parameters: Routine CT of the brain without IV contrast. Dose-Length Product (DLP): 1375 mGy*cm. CT Dose Reduction Employed: mAs-kVp adjusted based on patient size-age BRAIN RESULT: Acute change: No evidence of an acute infarct or other acute parenchymal process. Hemorrhage: ECASS hemorrhagic transformation score: Not Applicable Mass Effect / Mass Lesion: There is no evidence of an intracranial mass or extraaxial fluid collection. No significant mass effect. Chronic ischemic change: None. Parenchyma: There is no significant volume loss. The brain parenchyma is otherwise within normal limits for age. Ventricles: No evidence of hydrocephalus. Other: The skull, visualized orbits and extracranial soft tissues are grossly normal. CT facial bones: HISTORY: 68 years old Clinical information: Subarachnoid hemorrhage (SAH) suspected TECHNIQUE: Description of study: Coronal and axial images CT Ionizing Radiation: CT Dose-Length Product (DLP):1375 mGy*cm CT Dose Reduction Employed: mAs-kVp adjusted based on patient size-age Findings: Sinus Chambers: Maxillary sinuses: Clear . Ethmoid sinuses: Clear . Sphenoid sinuses: Large amount of mucosal thickening and consolidation in the RIGHT side of the sphenoid sinus Frontal sinuses: Clear . No air-fluid levels are seen. The ostiomeatal complex regions are patent. * Multiple nasal bone fractures of both nasal bones with marked medial compression of the lateral fragments of the distal LEFT nasal bone. * Mild medial displacement of multiple fragments bilaterally. * Large amount of soft tissue swelling over the nasal area and anterior to the orbits The mastoid air cells appear well-aerated. No bony abnormalities are seen. EXAMINATION: CT OF THE CERVICAL SPINE WITHOUT CONTRAST History: Subarachnoid hemorrhage (SAH) suspected Fall facial injury(laceration) at hospital Technique: Routine CT of the cervical spine without IV contrast. Spiral, high resolution axial images were obtained from the skull base to the cervicothoracic junction with sagittal and coronal planar reconstructions CT Dose-Length Product (DLP): 1375 mGy*cm CT Dose Reduction Employed: mAs-kVp adjusted based on patient size-age RESULT: Counting reference: Craniocervical junction. Alignment: Alignment is anatomic. Craniocervical junction: Craniocervical junction is normal. Osseous structures/fracture: No evidence of a lytic or blastic process in the visualized spine. No evidence of acute or chronic fracture. Cervical soft tissues: The paraspinal soft tissues planes are maintained. Degenerative changes: Marked disc space narrowing C3-4 through C6-7. Mild posterior spurring at multiple levels Impression: 1. NO EVIDENCE OF AN ACUTE INTRACRANIAL PROCESS 2. Extremely large number of nasal bone fractures as discussed. Also a very large amount of soft tissue swelling over the nasal area and over the area anterior to the orbits 3. No other acute fractures of the facial bones identified 4. Marked degenerative changes in the spine 5. No acute abnormalities of the cervical spine Toll Ticket Clerk: SEN Transcribe Date/Time: Sep 16 2023 5:24P Dictated by : CHITRA HARRIS DO This examination was interpreted and the report reviewed and electronically signed by: CHITRA HARRIS DO on Sep 16 2023 5:35PM EST [id number] Normal [facility] Comprehensive metabolic 2000 panelon 09-16-2023 Albumin [Mass/Vol] 4.0 g/dL Normal 3.9-4.9 [facility] Comment on above: Order Comment: Michelle mckeon Type: BLOOD SPECIMENOrdering Facility: [facility] Address: [address] [place] [address] Performed By: #### 2 4323-8 ####[facility] LABORATORYCLIA [id number] [address] OF [facility] ALP [Catalytic activity/Vol] 149 U/L High 38-113 [facility] Comment on above: Order Comment: Michelle mckeon Type: BLOOD SPECIMENOrdering Facility: [facility] Address: [address] [place] [address] Performed By: #### 2 4323-8 ####[facility] LABORATORYCLIA [id number] [address] ALT [Catalytic activity/Vol] 38 U/L Normal 10-54 [facility] Comment on above: Order Comment: Michelle mckeon Type: BLOOD SPECIMENOrdering Facility: [facility] Address: [address] [place] [address] Performed By: #### 2 4323-8 ####REYNOSO LABORATORYCLIA [id number] [place] [address] [place] Anion gap [Moles/Vol] 12 mmol/L Normal 9-18 [facility] Comment on above: Order Comment: Speci men Type: BLOOD SPECIMENOrdering Facility: [facility] Address: [address] [place] [address] Performed By: #### 2 4323-8 ####REYNOSO LABORATORYCLIA [id number] [place] [address] [place] AST [Catalytic activity/Vol] 44 U/L High 14-40 [facility] Comment on above: Order Comment: Speci men Type: BLOOD SPECIMENOrdering Facility: [facility] Address: [address] [place] [address] Performed By: #### 2 4323-8 ####REYNOSO LABORATORYCLIA [id number] [place] [address] [place] Bilirubin [Mass/Vol] 0.5 mg/dL Normal 0.2-1.3 [facility] Comment on above: Order Comment: Speci men Type: BLOOD SPECIMENOrdering Facility: [facility] Address: [address] [place] [address] Performed By: #### 2 4323-8 ####REYNOSO LABORATORYCLIA [id number] [address] [place] Calcium [Mass/Vol] 9.5 mg/dL Normal 8.5-10.2 [facility] Comment on above: Order Comment: Speci men Type: BLOOD SPECIMENOrdering Facility: [facility] Address: [address] [place] [address] Performed By: #### 2 4323-8 ####REYNOSO LABORATORYCLIA [id number] [place] [address] [place] Chloride [Moles/Vol] 103 mmol/L Normal 97-105 [facility] Comment on above: Order Comment: Speci men Type: BLOOD SPECIMENOrdering Facility: [facility] Address: [address] [place] [address] Performed By: #### 2 4323-8 ####REYNOSO LABORATORYCLIA [id number] [place] [address] [place] CO2 [Moles/Vol] 24 mmol/L Normal 22-30 [facility] Comment on above: Order Comment: Speci men Type: BLOOD SPECIMENOrdering Facility: [facility] Address: [address] [place] [address] Performed By: #### 2 4323-8 ####REYNOSO LABORATORYCLIA [id number] [place] [address] [place] Creatinine [Mass/Vol] 1.42 mg/dL High 0.73-1.22 [facility] Comment on above: Order Comment: Speci men Type: BLOOD SPECIMENOrdering Facility: [facility] Address: [address] [place] [address] Performed By: #### 2 4323-8 ####REYNOSO LABORATORYCLIA [id number] [address] Creatinine and Glomerular filtration rate.predicted panel (S/P/Bld) 53 mL/min/1.73m??? Low >=60 [facility] Comment on above: Order Comment: Speci men Type: BLOOD SPECIMENOrdering Facility: [facility] Address: [address] [place] [address] Result Comment: Poppy mated Glomerular Filtration Rate (eGFR) is calculated using the 2020 CKD-EPI creatinine equation. This equation utilizes serum creatinine, sex, and age as parameters. The creatinine assay has traceable calibration to isotope dilution-mass spectrometry. Refer to KDIGO guidelines for clinical interpretation. In patients with unstable renal function, e.g. those with acute kidney injury, the eGFR may not accurately reflect actual GFR. Performed By: #### 2 4323-8 ####REYNOSO LABORATORYCLIA [id number] [address] [place] Glucose [Mass/Vol] 111 mg/dL High 74-99 [facility] Comment on above: Order Comment: Ermiasi mike Type: BLOOD SPECIMENOrdering Facility: [facility] Address: [address] [place] [address] Result Comment: The [place] [employer] (ADA) provides guidance for cutoff values for fasting glucose and random glucose. The ADA defines fasting as no caloric intake for at least 8 hours. Fasting plasma glucose results between 100 to 125 mg/dL indicate increased risk for diabetes (prediabetes). Fasting plasma glucose results greater than or equal to 126 mg/dL meet the criteria for diagnosis of diabetes. In the absence of unequivocal hyperglycemia, results should be confirmed by repeat testing. In a patient with classic symptoms of hyperglycemia or hyperglycemic crisis, random plasma glucose results greater than or equal to 200 mg/dL meet the criteria for diagnosis of diabetes. Reference: Standards of Medical Care in Diabetes 2016, [place] [employer]. Diabetes Care. 2016.39(Suppl 1). Performed By: #### 2 4323-8 ####REYNOSO LABORATORYCLIA [id number] [place] [address] [place] Potassium [Moles/Vol] 4.2 mmol/L Normal 3.7-5.1 [facility] Comment on above: Order Comment: Michelle mckeon Type: BLOOD SPECIMENOrdering Facility: [facility] Address: [address] [place] [address] Performed By: #### 2 4323-8 ####REYNOSO LABORATORYCLIA [id number] [place] [address] [place] Protein [Mass/Vol] 6.5 g/dL Normal 6.3-8.0 [facility] Comment on above: Order Comment: Michelle mckeon Type: BLOOD SPECIMENOrdering Facility: [facility] Address: [address] [place] [address] Performed By: #### 2 4323-8 ####REYNOSO LABORATORYCLIA [id number] [place] [address] [place] Sodium [Moles/Vol] 139 mmol/L Normal 136-144 [facility] Comment on above: Order Comment: Michelle mckeon Type: BLOOD SPECIMENOrdering Facility: [facility] Address: [address] [place] [address] Performed By: #### 2 4323-8 ####REYNOSO LABORATORYCLIA [id number] [place] [address] [place] Urea nitrogen [Mass/Vol] 23 mg/dL Normal 9-24 [facility] Comment on above: Order Comment: Ermiasi men Type: BLOOD SPECIMENOrdering Facility: [facility] Address: [place] [id number] Performed By: #### 2 4323-8 ####SUMMERTON LABORATORYCLIA [id number] [place] [address] [facility] ED NOTEon 09-16-2023 ED NOTE HNO ID: [id number] Author: LISA CANTOR RN Service: Nursing Author Type: Registered Nurse Type: ED Notes Filed: 09/16/2023 20:35 Note Text: Pt was able to transfer with his cane to the wheelchair and to private vehicle [facility] ED NOTE HNO ID: [id number] Author: LISA CANTOR RN Service: Nursing Author Type: Registered Nurse Type: ED Notes Filed: 09/16/2023 20:34 Note Text: Pt has swelling over his face nose and mouth He is able to swallow and speak in complete sentences Pt was instructed to follow up with ENT as per their appts is bedside they were instructed to go to the nearest ER for any changes in condition for any SOB increased facial swelling or difficulty swallowing [facility] ED NOTE HNO ID: [id number] Author: LISA CANTOR RN Service: Nursing Author Type: Registered Nurse Type: ED Notes Filed: 09/16/2023 19:14 Note Text: Front Desk Lead has been bedside Pts remains bedside [facility] ED NOTE HNO ID: [id number] Author: LISA CANTOR RN Service: Nursing Author Type: Registered Nurse Type: ED Notes Filed: 09/16/2023 18:40 Note Text: Pt is sipping cold gingerale tolerating well [facility] ED NOTE HNO ID: [id number] Author: LISA CANTOR RN Service: Nursing Author Type: Registered Nurse Type: ED Notes Filed: 09/16/2023 17:54 Note Text: Pt is resting with the ice pack to his face [facility] ED NOTE HNO ID: [id number] Author: LISA CANTOR RN Service: Nursing Author Type: Registered Nurse Type: ED Notes Filed: 09/16/2023 17:39 Note Text: Pt has voided per the urinal 600 cc clear yellow urine [facility] ED NOTE HNO ID: [id number] Author: LISA CANTOR, RN Service: Nursing Author Type: Registered Nurse Type: ED Notes Filed: 09/16/2023 17:35 Note Text: Pt has returned from radiology He has ice packs to his face wounds Normal [facility] ED NOTE HNO ID: [id number] Author: LISA CANTOR RN Service: Nursing Author Type: Registered Nurse Type: ED Notes Filed: 09/16/2023 16:59 Note Text: Ice packs are applied to the pts face Pt is able to speak in complete sentences Per he and his at the bedside the pt has been missing teeth [facility] ED NOTE HNO ID: [id number] Author: RYAN DONAHUE RN Service: ? Author Type: Registered Nurse Type: ED Notes Filed: 09/16/2023 16:01 Note Text: Pt was going to Dr visit and fell hitting head and face. Pt does have frequent falls and his being worked up for Parkinson [facility] ED PROV NOTEon 09-16-2023 ED PROV NOTE HNO ID: [id number] Author: MICHAEL GARCIA MD Service: Emergency Medicine Author Type: Physician Type: ED Provider Notes Filed: 09/16/2023 22:21 Note Text: Attending Note I have personally performed a face to face assessment of the patient and have reviewed the BRANDAN note. I performed a substantive portion of the visit including all aspects of the following. My gordillo findings include: Douglas Callaway JR Is a 68-year-old male is presenting to the emergency department after trip and fall. Patient face planted on the ground hitting mainly his nose. Denies loss of consciousness. He has rather significant swelling to the nasal bridge with overlying laceration with significant venous bleeding. This did require rather urgent suturing to control bleeding. He has significant swelling around the area as well. Bleeding otherwise actually seems to be controlled though clearly he was having significant epistaxis as well. Patient was cleaned up and bleeding otherwise seems to be under control after suturing this laceration. CT imaging shows multiple facial fractures of the nose and septum. No [place] injury. No intracranial hemorrhage. No other acute injuries. We did speak with ENT who recommended packing bilaterally and urgent follow-up on an outpatient basis. Patient is comfortable with this plan.Remainder of lacerations were repaired by physician dermatology physician assistant. He will be empirically given Augmentin due to the nasal fractures as well as bacitracin topically. Other additions or changes: None Signature: Michael Garcia MD Date: 09/16/2023 Time: 7:42 PM MICHAEL GARCIA I 09/16/23 2221 [facility] ED PROV NOTE HNO ID: [id number] Author: ARIANE JIN PA-C Service: Emergency Medicine Author Type: Physician Manager [employer] Type: ED Provider Notes Filed: 09/17/2023 00:05 Note Text: Attestation signed by Michael Garcia I, MD at 09/18/2023 3:19 PM Attending Note I have personally performed a face to face assessment of the patient and have reviewed the BRANDAN note. I performed a substantive portion of the visit including all aspects of the following. My gordillo findings are documented in separate attending attestation note. Other additions or changes: None Signature: Michael Garcia MD Date: 09/18/2023 Time: 3:19 PM ED Provider Note Patient Name: Douglas Callaway JR : 1955 SERVICE DATE: 09/16/23 History Patient presents with: Fall Laceration Nose Injury While here at the hospital, the patient was ambulating on his own down a corridor. Patient ambulates with a cane which he was using today. Patient says that he started to walk faster than he typically does and his momentum carried him forward. He struck his nasal area onto a structure and had immediate bleeding. His disorder lies at the nasal and paranasal areas. Patient says that he did not have a loss of consciousness and does not use a blood thinner. Denies any neck pain. Patient says that he has had multiple falls in the past and is missing multiple teeth and dental implants as a result of similar injuries. Essentially recognized to be at his mental baseline by his spouse at bedside. PAST MEDICAL HISTORY Diagnosis Date Bipolar II disorder (HCC) CAD (coronary artery disease) 12/2019 CABG x 3 Carotid artery occlusion with cerebral infarction (HCC) pt denies this; CVA was secondary to HTN CVA (cerebral vascular accident) (HCC) 2003 related to untreated HTN; no residual effects Depression Elevated LFTs Gastroparesis POP procedure 06/11/21 GERD (gastroesophageal reflux disease) Hepatitis A 09/2018 Resolved HTN (hypertension) Hyperlipemia Insomnia CABRERA (obstructive sleep apnea) does not currently have a CPAP Osteoporoses Renal insufficiency TIA (transient ischemic attack) prior to CVA in 2003, none since Type 2 diabetes mellitus (HCC) 2018 Iván Case PCP PAST SURGICAL HISTORY Procedure Laterality Date COLONOSCOPY GEN ANES 09/2017 normal per patient CORONARY ART/GRFT ANGIO ARIADNA 12/15/2019 [facility] ; CABG x 3 EGD 08/2020 [facility] EGD WITH BIOPSY(S) 05/13/2023 Dr. Fajardo ERCP STENT PLACEMENT BILIARY/PANCREATIC DUCT 09/02/2021 Dr Yarbrough GI TRANSIT AND PRES CARLEY WIRELESS CAPSULE W/INTERP 01/08/2021 Smart Pill-delayed gastric emptying; INCISIONAL BIOPSY SKIN SINGLE LESION biopsy of mass over right eye; benign LAPAROSCOPIC CHOLECYSTECTOMY 09/02/2021 PER ORAL PYLOROMYOTOMY (POP) PROCEDURE (COMP 47371) 06/11/2021 Dr. Bray REMV CATARACT EXTRACAP,INSERT LENS Bilateral 2016 SHOULDER SURGERY HX TONSILLECTOMY HX FAMILY HISTORY Problem Relation Age of Onset other (pulmonary fibrosis) Mother Colon Cancer Father Social History Tobacco Use Smoking status: Former Types: Cigarettes Smokeless tobacco: Never Tobacco comments: during college Vaping Use Vaping Use: Never used Substance and Sexual Activity Alcohol use: Yes Alcohol/week: 12.0 standard drinks of alcohol Types: 12 Cans of Beer (12oz) per week Drug use: Never Sexual activity: Not on file ALLERGIES No Known Allergies Review of Systems Constitutional: Negative. HENT: Positive for facial swelling, nosebleeds and sinus pain. Eyes: Negative. Respiratory: Negative. Cardiovascular: Negative. Gastrointestinal: Negative. Genitourinary: Negative. Musculoskeletal: Negative for back pain, neck pain and neck stiffness. Neurological: Positive for headaches (Not recognized as the worst headache he can imagine). All other systems reviewed and are negative. Physical Exam Vitals [09/16/23 1556] BP Pulse Temp Temp src Resp SpO2 Weight Height 189/81 (!) 53 36.2 ?C (97.2 ?F) Axillary 18 97 % 73 kg (161 lb) -- Physical Exam Vitals and nursing note reviewed. Exam conducted with a size painter present. HENT: Head: Comments: Superior laceration is 2.25 cm in length Inferior laceration is 2.5 cm in length Initial exam is limited as patient was hemorrhaging. It was very difficult to get an accurate feel any oral or intranasal bleeding. We will reevaluate once bleeding is under control. Initial exam shows: Constitutional: Patient is AAO x3, appears to be well-nourished and hydrated. Psych: Appropriate mood and affect for chief complaint. Patient is calm and pleasant despite his injuries. Integumentary: Skin shows multiple facial lacerations, see head exam, no erythema, kin is warm and (more content not included)... Normal [facility] PT panel Coag (PPP)on 2023 INR Coag (PPP) [Relative time] 1.0 {INR} Normal 0.9-1.3 [facility] Comment on above: Order Comment: Speci men Type: BLOOD SPECIMENOrdering Facility: [facility] Address: [address] [place] [address], [place] [address] Result Comment: Ladi min K Antagonist (VKA) Therapeutic Range: INR 2 to 3 (Target INR of 2.5) Note: For patients treated with VKA drugs, such as warfarin, the [place] [employer] 2012 Guideline recommends a therapeutic INR range of 2 to 3 (target INR of 2.5). This recommendation includes high-risk patients with antiphospholipid syndrome with previous arterial or venous thromboembolism, current-generation mechanical or bioprosthetic aortic heart valve replacement. Note: Patients with mechanical aortic valve replacement and additional risk factors for thromboembolic events (atrial fibrillation, previous thromboembolism, LV dysfunction, hypercoagulable conditions) or an older generation mechanical AVR (i.e., ball in-Cage) or any mechanical MVR should have a INR therapeutic range of 2.5 to 3.5 (target INR of 3). Howie GH, et al. Chest 2012, 141:7S-47S Matt RA, et al. [facility] 2017, 70: 252-289 Performed By: #### 3 4528-0 ####[facility] LABORATORYCLIA [id number] [address] OF [facility] PT Coag (PPP) [Time] 10.3 s Normal 9.7-13.0 [facility] Comment on above: Order Comment: Speci men Type: BLOOD SPECIMENOrdering Facility: [facility] Address: [address] [place] [address] Performed By: #### 3 4528-0 ####SUMMERTON LABORATORYCLIA [id number] [address] XR HAND 3V PA/LAT/OBL LTon 0 09-16-2023 XR HAND 3V PA/LAT/OBL LT * * *Final Report* * * DATE OF EXAM: Sep 16 2023 5:26PM MDX 5345 - XR HAND 3V PA/LAT/OBL LT / PROCEDURE REASON: Trauma * * * * Physician Interpretation * * * * EXAM(s): XR HAND 3V PA/LAT/OBL LT EXAM DATE/TIME: 09/16/2023 5:26 PM HISTORY: 68 years old Clinical information: Trauma LEFT HAND TRAUMA TECHNIQUE: Images: XR HAND 3V PA/LAT/OBL LT Comparison: None. RESULT: Findings: Bone density appears well-preserved. No fractures or dislocations are seen. IMPRESSION: Findings as discussed in results portion of report Toll Ticket Clerk: SEN Transcribe Date/Time: Sep 16 2023 5:35P Dictated by : HCITRA HARRIS DO This examination was interpreted and the report reviewed and electronically signed by: CHITRA HARRIS DO on Sep 16 2023 5:36PM EST [id number] Normal [facility] CNTHERAPYon 08-19-2023 CNTHERAPY OT/PT/Speech Visit ( PTMDRG) DOUGLAS CALLAWAY ([id number]) 1955 M Date Time Provider Department 08/19/23 5:15 PM KARLA CASTRO PTMDRG Date Time Provider Department [place] 08/19/2023 5:15 PM [id number] CASTROG [facility] Reason for Visit: Physical Therapy [503] Primary Visit Diagnosis:Diabetes mellitus without complication (HCC) [E11.9] Other Visit Diagnoses:Weakness of both lower extremities [R29.898] Abnormality of gait [R26.9] Imbalance [R26.89] Allergies As of Date: 08/19/2023 (No Known Allergies) Date Reviewed: 07/27/2023 Reviewed by: Ross Dimas MA - Fully Assessed Prescriptions as of 08/19/2023 - pantoprazole DR (PROTONIX) 40 mg tablet take 1 tablet by mouth twice a day - awuwmf-qmdxorty-dqlmoio (CREON 36) 36,000-114,000- 180,000 unit delayed release capsule Take 2 caps by mouth 3 times daily with meals and 1 cap with each snack. Take 1st cap before meal starts and the 2nd cap intermediate through. - ondansetron (ZOFRAN) 4 mg tablet Take 1 tablet by mouth once daily as needed for nausea/vomiting (for nausea.). - amoxicillin (AMOXIL) 500 mg capsule take 4 capsules by mouth 1 hour prior to procedure - amoxicillin-clavulanic acid (AUGMENTIN) 875-125 mg per tablet Take by mouth. - atorvastatin (LIPITOR) 80 mg tablet Take 1 tablet by mouth every evening. - dorzolamide (TRUSOPT) 2 % ophthalmic solution Use in eyes. - doxycycline hyclate (VIBRAMYCIN) 100 mg capsule Take by mouth. - losartan (COZAAR) 50 mg tablet Take 1 tablet by mouth every afternoon. - aspirin, enteric coated (JAILENE LOW DOSE ASPIRIN) 81 mg EC tablet Take by mouth. - lamoTRIgine (LAMICTAL) 100 mg tablet take 1/2 tablet by mouth once daily to BE TAKEN ALONG WITH 200 MN... (REFER TO PRESCRIPTION NOTES). - rosuvastatin (CRESTOR) 10 mg tablet Take 10 mg by mouth every evening. - lamoTRIgine ER (LAMICTAL XR) 250 mg 24 hr tablet Take by mouth once daily. - doxepin capsule 10 mg Take 10 mg by mouth as needed. - alendronate (FOSAMAX) 70 mg tablet Take 70 mg by mouth one time a week. In AM with cup of water on empty stomach. Nothing else by mouth and stay upright for 30 min. - oxyCODONE-acetaminophen (PERCOCET) 5-325 mg tablet Take 1-2 tablets by mouth every 8 hours as needed for pain. - ondansetron (ZOFRAN) 4 mg tablet take 1 tablet by mouth every 8 hours if needed for nausea - cyanocobalamin, vitamin B-12, (VITAMIN B12 ORAL) Take 1 tablet by mouth once daily. - cholecalciferol, vitamin D3, (VITAMIN D3 ORAL) Take 1 capsule by mouth once daily. - aspirin (JAILENE CHEWABLE ASPIRIN) 81 mg chewable tablet Take 81 mg by mouth once daily. - amLODIPine (NORVASC) 10 mg tablet Take 10 mg by mouth once daily. - dorzolamide-timolol (COSOPT) 22.3-6.8 mg/mL ophthalmic solution Use 1 Drop in both eyes twice daily. - DULoxetine (CYMBALTA) 60 mg capsule Take 60 mg by mouth once daily. - metFORMIN (GLUCOPHAGE) 1,000 mg tablet Take 1,000 mg by mouth twice daily with meals. - rosuvastatin (CRESTOR) 40 mg tablet Take 40 mg by mouth daily at bedtime. - metoprolol tartrate 75 mg tab Take 75 mg by mouth twice daily. 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 and working on turning in 8 steps - 1 x daily - 7 x weekly - 3 sets - 10 reps - sidestepping in and out of bucket - 1 x daily - 7 x weekly - 3 sets - 10 reps - Sit to Stand - 1 x daily - 7 x weekly - 3 sets - 10 reps [facility] THERAPY NTon 08-19-2023 THERAPY NT HNO ID: [id number] Author: Karla Castro PT, DPT Service: Physical Therapy Author Type: Physical Therapist Type: Therapy (PT/OT/Speech/Resp) Filed: 08/19/2023 5:58 PM Note Text: Program_ID:[id number] Access Code: [email or web address] URL: [email or web address] Date: 08-19-2023 Prepared By: Karla Castro Program Notes Exercises - 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 and working on turning in 8 steps - 1 x daily - 7 x weekly - 3 sets - 10 reps - sidestepping in and out of bucket - 1 x daily - 7 x weekly - 3 sets - 10 reps - Sit to Stand - 1 x daily - 7 x weekly - 3 sets - 10 reps [facility] 08-18-2023 [facility] Telephone (RSQ) DOUGLAS CALLAWAY JR ([id number]) 1955 M Date Time Provider Department 08/18/23 ELBA SAMANIEGO During your visit today, we recorded the following information about you: Rena Molina 08/18/2023 11:17 AM Signed Contacted patient per staff message below: Elba Samaniego, PT, DPT P [place] Pt/Ot/Speech Clerical Pool Can we call to schedule pt eval for Ot with viviana Left a voice mail to call [phone] and ask for therapy to schedule an appointment. Sent [employer] message Kim Lisseth Cabrera Lisa 08/23/2023 10:21 AM Signed Called patient, left a message for patient to call us back.to schedule follow up physical therapy and an Occupational Therapy evaluation. Allergies As of Date: 08/18/2023 (No Known Allergies) Date Reviewed: 07/27/2023 Reviewed by: Ross Dimas MA - Fully Assessed Prescriptions as of 11/16/2023 - pantoprazole DR (PROTONIX) 40 mg tablet take 1 tablet by mouth twice a day - yypwln-gzhcvrwv-emxgpxz (CREON 36) 36,000-114,000- 180,000 unit delayed release capsule Take 2 caps by mouth 3 times daily with meals and 1 cap with each snack. Take 1st cap before meal starts and the 2nd cap intermediate through. - primidone (MYSOLINE) 50 mg tablet Take 1 tablet by mouth every afternoon. - JARDIANCE 10 mg tablet Take 1 tablet by mouth every afternoon. - ondansetron (ZOFRAN) 4 mg tablet Take 1 tablet by mouth once daily as needed for nausea/vomiting (for nausea.). - amoxicillin (AMOXIL) 500 mg capsule - amoxicillin-clavulanic acid (AUGMENTIN) 875-125 mg per tablet Take by mouth. - atorvastatin (LIPITOR) 80 mg tablet Take 1 tablet by mouth every evening. - dorzolamide (TRUSOPT) 2 % ophthalmic solution Use in eyes. - doxycycline hyclate (VIBRAMYCIN) 100 mg capsule Take by mouth. - losartan (COZAAR) 50 mg tablet Take 1 tablet by mouth every afternoon. - aspirin, enteric coated (JAILENE LOW DOSE ASPIRIN) 81 mg EC tablet Take by mouth. - lamoTRIgine (LAMICTAL) 100 mg tablet take 1/2 tablet by mouth once daily to BE TAKEN ALONG WITH 200 MN... (REFER TO PRESCRIPTION NOTES). - rosuvastatin (CRESTOR) 10 mg tablet Take 10 mg by mouth every evening. - lamoTRIgine ER (LAMICTAL XR) 250 mg 24 hr tablet Take by mouth once daily. - doxepin capsule 10 mg Take 10 mg by mouth as needed. - alendronate (FOSAMAX) 70 mg tablet Take 70 mg by mouth one time a week. In AM with cup of water on empty stomach. Nothing else by mouth and stay upright for 30 min. - oxyCODONE-acetaminophen (PERCOCET) 5-325 mg tablet Take 1-2 tablets by mouth every 8 hours as needed for pain. - ondansetron (ZOFRAN) 4 mg tablet take 1 tablet by mouth every 8 hours if needed for nausea - cyanocobalamin, vitamin B-12, (VITAMIN B12 ORAL) Take 1 tablet by mouth once daily. - cholecalciferol, vitamin D3, (VITAMIN D3 ORAL) Take 1 capsule by mouth once daily. - aspirin (JAILENE CHEWABLE ASPIRIN) 81 mg chewable tablet Take 81 mg by mouth once daily. - amLODIPine (NORVASC) 10 mg tablet Take 10 mg by mouth once daily. - dorzolamide-timolol (COSOPT) 22.3-6.8 mg/mL ophthalmic solution Use 1 Drop in both eyes twice daily. - DULoxetine (CYMBALTA) 60 mg capsule Take 60 mg by mouth once daily. - metFORMIN (GLUCOPHAGE) 1,000 mg tablet Take 1,000 mg by mouth twice daily with meals. - rosuvastatin (CRESTOR) 40 mg tablet Take 40 mg by mouth daily at bedtime. - metoprolol tartrate 75 mg tab Take 75 mg by mouth twice daily. Problem List As Of Date 08/18/2023 Noted Resolved Gastroparesis [K31.84] 06/11/2021 06/12/2021 Preop examination [Z01.818] 05/13/2023 Hypertension [I10] 05/13/2023 Diabetes mellitus without complication (HCC) [E*05/13/2023 CABRERA (obstructive sleep apnea) [G47.33] 05/13/2023 Heartburn [R12] 05/13/2023 Gastroparesis [K31.84] 05/13/2023 Weakness of both lower extremities [R29.898] 08/12/2023 Abnormality of gait [R26.9] 08/12/2023 Imbalance [R26.89] 08/12/2023 Encounter Status:Closed by RENA MOLINA on 11/16/23 Normal [facility] EMG(NEURO/NI)on 08-12-2023 [facility] CNTHERAPYon 08-11-2023 CNTHERAPY OT/PT/Speech Visit ( PTMDRG) DOUGLAS CALLAWAY JR ([id number]) 1955 M Date Time Provider Department 08/11/23 4:15 PM ELBA SAMANIEGO Date Time Provider Department Center 08/11/2023 4:15 PM [id number] SAMANIEGO PTMSOTERO [facility] Reason for Visit: PT Eval [747] Patient Education [91] Primary Visit Diagnosis:Abnormality of gait [R26.9] Other Visit Diagnoses:Weakness of both lower extremities [R29.898] Imbalance [R26.89] Allergies As of Date: 08/11/2023 (No Known Allergies) Date Reviewed: 07/27/2023 Reviewed by: Ross Dimas MA - Fully Assessed Prescriptions as of 08/12/2023 - pantoprazole DR (PROTONIX) 40 mg tablet take 1 tablet by mouth twice a day - pktabk-uhggwtkk-iflxgzh (CREON 36) 36,000-114,000- 180,000 unit delayed release capsule Take 2 caps by mouth 3 times daily with meals and 1 cap with each snack. Take 1st cap before meal starts and the 2nd cap intermediate through. - ondansetron (ZOFRAN) 4 mg tablet Take 1 tablet by mouth once daily as needed for nausea/vomiting (for nausea.). - amoxicillin (AMOXIL) 500 mg capsule take 4 capsules by mouth 1 hour prior to procedure - amoxicillin-clavulanic acid (AUGMENTIN) 875-125 mg per tablet Take by mouth. - atorvastatin (LIPITOR) 80 mg tablet Take 1 tablet by mouth every evening. - dorzolamide (TRUSOPT) 2 % ophthalmic solution Use in eyes. - doxycycline hyclate (VIBRAMYCIN) 100 mg capsule Take by mouth. - losartan (COZAAR) 50 mg tablet Take 1 tablet by mouth every afternoon. - aspirin, enteric coated (JAILENE LOW DOSE ASPIRIN) 81 mg EC tablet Take by mouth. - lamoTRIgine (LAMICTAL) 100 mg tablet take 1/2 tablet by mouth once daily to BE TAKEN ALONG WITH 200 MN... (REFER TO PRESCRIPTION NOTES). - rosuvastatin (CRESTOR) 10 mg tablet Take 10 mg by mouth every evening. - lamoTRIgine ER (LAMICTAL XR) 250 mg 24 hr tablet Take by mouth once daily. - doxepin capsule 10 mg Take 10 mg by mouth as needed. - alendronate (FOSAMAX) 70 mg tablet Take 70 mg by mouth one time a week. In AM with cup of water on empty stomach. Nothing else by mouth and stay upright for 30 min. - oxyCODONE-acetaminophen (PERCOCET) 5-325 mg tablet Take 1-2 tablets by mouth every 8 hours as needed for pain. - ondansetron (ZOFRAN) 4 mg tablet take 1 tablet by mouth every 8 hours if needed for nausea - cyanocobalamin, vitamin B-12, (VITAMIN B12 ORAL) Take 1 tablet by mouth once daily. - cholecalciferol, vitamin D3, (VITAMIN D3 ORAL) Take 1 capsule by mouth once daily. - aspirin (JAILENE CHEWABLE ASPIRIN) 81 mg chewable tablet Take 81 mg by mouth once daily. - amLODIPine (NORVASC) 10 mg tablet Take 10 mg by mouth once daily. - dorzolamide-timolol (COSOPT) 22.3-6.8 mg/mL ophthalmic solution Use 1 Drop in both eyes twice daily. - DULoxetine (CYMBALTA) 60 mg capsule Take 60 mg by mouth once daily. - metFORMIN (GLUCOPHAGE) 1,000 mg tablet Take 1,000 mg by mouth twice daily with meals. - rosuvastatin (CRESTOR) 40 mg tablet Take 40 mg by mouth daily at bedtime. - metoprolol tartrate 75 mg tab Take 75 mg by mouth twice daily. [facility] 08-02-2023 [facility] Telephone (AGGASTACC ) DOUGLAS CALLAWAY JR ([id number]) 1955 M Date Time Provider Department 08/02/23 KARLA SAUER AGGASTACC During your visit today, we recorded the following information about you: Karla Sauer PA-C 08/02/2023 11:28 AM Signed Please call the patietn and advise him that his stool studies show that he is not making enough digestive enzymes to break down his food which is what is causing his diarrhea. It is a condition called EPI or exocrine pancreatic insufficiency. I am sending in a prescription for enzymes which he is to begin taking. Please also book him for a follow up in a few months. Thanks Pravin Mukherjee 08/03/2023 1:41 PM Signed Per previous notes-explain to pt his test results and he would need to sweet pickle maker his rx./also scheduled follow up visit Pravin Mukherjee Allergies As of Date: 08/02/2023 (No Known Allergies) Date Reviewed: 07/27/2023 Reviewed by: Ross Dimas MA - Fully Assessed Primary Visit Diagnosis:Exocrine pancreatic insufficiency [K86.81] Order(s):hgbgfv-reduudvy-ngc lase (CREON 36) 36,000-114,000- 180,000 unit delayed release capsuleTake 2 caps by mouth 3 times daily with meals and 1 cap with each snack. Take 1st cap before meal starts and the 2nd cap intermediate through.Disp: 240 capsuleRfl: 2 Prescriptions as of 08/03/2023 - xabuap-skpiilzv-lgtngvb (CREON 36) 36,000-114,000- 180,000 unit delayed release capsule Take 2 caps by mouth 3 times daily with meals and 1 cap with each snack. Take 1st cap before meal starts and the 2nd cap intermediate through. - ondansetron (ZOFRAN) 4 mg tablet Take 1 tablet by mouth once daily as needed for nausea/vomiting (for nausea.). - amoxicillin (AMOXIL) 500 mg capsule take 4 capsules by mouth 1 hour prior to procedure - amoxicillin-clavulanic acid (AUGMENTIN) 875-125 mg per tablet Take by mouth. - atorvastatin (LIPITOR) 80 mg tablet Take 1 tablet by mouth every evening. - dorzolamide (TRUSOPT) 2 % ophthalmic solution Use in eyes. - doxycycline hyclate (VIBRAMYCIN) 100 mg capsule Take by mouth. - losartan (COZAAR) 50 mg tablet Take 1 tablet by mouth every afternoon. - aspirin, enteric coated (JAILENE LOW DOSE ASPIRIN) 81 mg EC tablet Take by mouth. - lamoTRIgine (LAMICTAL) 100 mg tablet take 1/2 tablet by mouth once daily to BE TAKEN ALONG WITH 200 MN... (REFER TO PRESCRIPTION NOTES). - rosuvastatin (CRESTOR) 10 mg tablet Take 10 mg by mouth every evening. - pantoprazole DR (PROTONIX) 40 mg tablet Take 1 tablet by mouth twice daily. - lamoTRIgine ER (LAMICTAL XR) 250 mg 24 hr tablet Take by mouth once daily. - doxepin capsule 10 mg Take 10 mg by mouth as needed. - alendronate (FOSAMAX) 70 mg tablet Take 70 mg by mouth one time a week. In AM with cup of water on empty stomach. Nothing else by mouth and stay upright for 30 min. - oxyCODONE-acetaminophen (PERCOCET) 5-325 mg tablet Take 1-2 tablets by mouth every 8 hours as needed for pain. - ondansetron (ZOFRAN) 4 mg tablet take 1 tablet by mouth every 8 hours if needed for nausea - cyanocobalamin, vitamin B-12, (VITAMIN B12 ORAL) Take 1 tablet by mouth once daily. - cholecalciferol, vitamin D3, (VITAMIN D3 ORAL) Take 1 capsule by mouth once daily. - aspirin (JAILENE CHEWABLE ASPIRIN) 81 mg chewable tablet Take 81 mg by mouth once daily. - amLODIPine (NORVASC) 10 mg tablet Take 10 mg by mouth once daily. - dorzolamide-timolol (COSOPT) 22.3-6.8 mg/mL ophthalmic solution Use 1 Drop in both eyes twice daily. - DULoxetine (CYMBALTA) 60 mg capsule Take 60 mg by mouth once daily. - metFORMIN (GLUCOPHAGE) 1,000 mg tablet Take 1,000 mg by mouth twice daily with meals. - rosuvastatin (CRESTOR) 40 mg tablet Take 40 mg by mouth daily at bedtime. - metoprolol tartrate 75 mg tab Take 75 mg by mouth twice daily. Problem List As Of Date 08/02/2023 Noted Resolved Gastroparesis [K31.84] 06/11/2021 06/12/2021 Preop examination [Z01.818] 05/13/2023 Hypertension [I10] 05/13/2023 Diabetes mellitus without complication (HCC) [E*05/13/2023 CABRERA (obstructive sleep apnea) [G47.33] 05/13/2023 Heartburn [R12] 05/13/2023 Gastroparesis [K31.84] 05/13/2023 Prescriptions ordered this encounter Disp Refills Start End ZDEKMI-JRHISRYI-AJMFEEA 36,000-114,0* 240 * 2 08/02/2023 Sig: Take 2 caps by mouth 3 times daily with meals and 1 cap with each snack. Take 1st cap before meal starts and the 2nd cap intermediate through. Encounter Status:Closed by PRAVIN MUKHERJEE on 08/03/[address] [facility] C diff Tox gens Stl Ql SUSIE+p berto 07-27-2023 C. difficile toxin genes SUSIE+probe Ql (Stl) Negative Normal Negative for C. difficile toxin by PCR [facility] Comment on above: Order Comment: Speci men Type: STOOL SPECIMEN Ordering Facility: [facility] Address: [address] [place] [address] Performed By: #### 5 4067-4 #### [facility] CLIA [id number] [address] [place], [place] [address] STATES OF [facility] CNOVon 07-27-2023 CNOV Office Visit (NEURMM ) DOUGLAS CALLAWAY JR ([id number]) 1955 M Date Time Provider Department 07/27/23 2:00 PM SHERYL BASSETT NEURMM During your visit today, we recorded the following information about you: Pulse Blood pressure Height 46/minute 135/45 1.727 m Ross Dimas MA 07/27/2023 5:18 PM Signed There is no data to display for this encounter Sheryl Bassett MD 07/27/2023 5:18 PM Signed July 27, 2023 New Patient Leg weakness Subjective HISTORY AND PHYSICAL Douglas Callaway JR 68 year old man with weakness in both legs more on the right than left since October 2022 and frequent falls He is shaffling instead of regular steps ,tripping over or losing balance . Although having frequent falls ,he didn't go to therapy ,and doesn't have a cane for balance . Falling and losing balance or tripping on anyhting Back pain or neck pain none Numbness in the feet at night No leg pain ,he had right shoulder pain s/p right shoulder replacement and decrease in the range of movement He noticed that he falls more when it is dark, or when closing his eyes in the shower Years ago had stroke but had no documents ,because the hospital closed Review of Systems Objective 07/27/23 1417 BP: (!) 135/45 BP Site: Left Arm BP Position: Sitting BP Cuff Size: Regular Adult Pulse: (!) 46 SpO2: 97% Height: 172.7 cm (5' 8) Physical Exam EXAM: NOSE: no erythema or exudate PHARYNX: normal, no erythema NECK: supple and no adenopathy CHEST: Normal chest wall exam NODES: Neurological Exam MENTAL STATUS: Alert, oriented to person, place and time and Follows commands CRANIAL NERVES: EOM's intact, Visual edmond intact to confrontation, Face symmetric, Hearing intact to finger rub bilaterally, No dysarthria, Palate elevates symmetrically, Tongue protrudes midline, and Shoulder with limitation of range of movement of the right shoulder symmetric MOTOR: No drift and Normal tone MOTOR STRENGTH: Upper and lower extremity 5/5 bilaterally REFLEXES: Reflexes are diminished but present at the knees both sides and absent at the ankles on both sides SENSATION: Positive Romberg COORDINATION: Finger-to- nose-finger intact bilaterally GAIT: Not assessed PAST MEDICAL HISTORY Diagnosis Date Bipolar II disorder ([facility]) CAD (coronary artery disease) 12/2019 CABG x 3 Carotid artery occlusion with cerebral infarction ([facility]) pt denies this; CVA was secondary to HTN CVA (cerebral vascular accident) ([facility]) 2003 related to untreated HTN; no residual effects Depression Elevated LFTs Gastroparesis POP procedure 06/11/21 GERD (gastroesophageal reflux disease) Hepatitis A 09/2018 Resolved HTN (hypertension) Hyperlipemia Insomnia CABRERA (obstructive sleep apnea) does not currently have a CPAP Osteoporoses Renal insufficiency TIA (transient ischemic attack) prior to CVA in 2003, none since Type 2 diabetes mellitus ([facility]) 2018 Iván Case PCP Current Outpatient Medications Medication Sig Dispense Refill ondansetron (ZOFRAN) 4 mg tablet Take 1 tablet by mouth once daily as needed for nausea/vomiting (for nausea.). 30 tablet 2 amoxicillin-clavulanic acid (AUGMENTIN) 875-125 mg per tablet Take by mouth. losartan (COZAAR) 50 mg tablet Take 1 tablet by mouth every afternoon. aspirin, enteric coated (JAILENE LOW DOSE ASPIRIN) 81 mg EC tablet Take by mouth. lamoTRIgine (LAMICTAL) 100 mg tablet take 1/2 tablet by mouth once daily to BE TAKEN ALONG WITH 200 MN... (REFER TO PRESCRIPTION NOTES). rosuvastatin (CRESTOR) 10 mg tablet Take 10 mg by mouth every evening. pantoprazole DR (PROTONIX) 40 mg tablet Take 1 tablet by mouth twice daily. 60 tablet 2 doxepin capsule 10 mg Take 10 mg by mouth as needed. alendronate (FOSAMAX) 70 mg tablet Take 70 mg by mouth one time a week. In AM with cup of water on empty stomach. Nothing else by mouth and stay upright for 30 min. cyanocobalamin, vitamin B-12, (VITAMIN B12 ORAL) Take 1 tablet by mouth once daily. cholecalciferol, vitamin D3, (VITAMIN D3 ORAL) Take 1 capsule by mouth once daily. dorzolamide-timolol (COSOPT) 22.3-6.8 mg/mL ophthalmic solution Use 1 Drop in both eyes twice daily. DULoxetine (CYMBALTA) 60 mg capsule Take 60 mg by mouth once daily. metFORMIN (GLUCOPHAGE) 1,000 mg tablet Take 1,000 mg by mouth twice daily with meals. metoprolol tartrate 75 mg tab Take 75 mg by mouth twice daily. amoxicillin (AMOXIL) 500 mg capsule take 4 capsules by mouth 1 hour prior to procedure (Patient not taking: Reported on 07/27/2023) atorvastatin (LIPITOR) 80 mg tablet Take 1 tablet by mouth every evening. dorzolamide (TRUSOPT) 2 % ophthalmic solution Use in eyes. (Patient not taking: Reported on 07/27/2023) doxycycline hyclate (VIBRAMYCIN) 100 mg capsule Take by mouth. (Patient not taking: Reported on 05/13/2023) lamoTRIgine ER (more content not included)... [facility] DOUGL[facility] CALLAW[facility] JR ([id number]) 1955 M Date Time Provider Department 07/27/23 SHERYL BASSETT During your visit today, we recorded the following information about you: Ross Dimas MA 07/27/2023 2:02 PM Signed Checked hope patient not present at time of visit Allergies As of Date: 07/27/2023 (No Known Allergies) Date Reviewed: 07/26/2023 Reviewed by: Fátima Martinez - Fully Assessed Reason for Visit: Appointment [186] Prescriptions as of 07/27/2023 - ondansetron (ZOFRAN) 4 mg tablet Take 1 tablet by mouth once daily as needed for nausea/vomiting (for nausea.). - amoxicillin (AMOXIL) 500 mg capsule take 4 capsules by mouth 1 hour prior to procedure - amoxicillin-clavulanic acid (AUGMENTIN) 875-125 mg per tablet Take by mouth. - atorvastatin (LIPITOR) 80 mg tablet Take 1 tablet by mouth every evening. - dorzolamide (TRUSOPT) 2 % ophthalmic solution Use in eyes. - doxycycline hyclate (VIBRAMYCIN) 100 mg capsule Take by mouth. - losartan (COZAAR) 50 mg tablet Take 1 tablet by mouth every afternoon. - aspirin, enteric coated (JAILENE LOW DOSE ASPIRIN) 81 mg EC tablet Take by mouth. - lamoTRIgine (LAMICTAL) 100 mg tablet take 1/2 tablet by mouth once daily to BE TAKEN ALONG WITH 200 MN... (REFER TO PRESCRIPTION NOTES). - rosuvastatin (CRESTOR) 10 mg tablet Take 10 mg by mouth every evening. - pantoprazole DR (PROTONIX) 40 mg tablet Take 1 tablet by mouth twice daily. - lamoTRIgine ER (LAMICTAL XR) 250 mg 24 hr tablet Take by mouth once daily. - doxepin capsule 10 mg Take 10 mg by mouth as needed. - alendronate (FOSAMAX) 70 mg tablet Take 70 mg by mouth one time a week. In AM with cup of water on empty stomach. Nothing else by mouth and stay upright for 30 min. - oxyCODONE-acetaminophen (PERCOCET) 5-325 mg tablet Take 1-2 tablets by mouth every 8 hours as needed for pain. - ondansetron (ZOFRAN) 4 mg tablet take 1 tablet by mouth every 8 hours if needed for nausea - cyanocobalamin, vitamin B-12, (VITAMIN B12 ORAL) Take 1 tablet by mouth once daily. - cholecalciferol, vitamin D3, (VITAMIN D3 ORAL) Take 1 capsule by mouth once daily. - aspirin (JAILENE CHEWABLE ASPIRIN) 81 mg chewable tablet Take 81 mg by mouth once daily. - amLODIPine (NORVASC) 10 mg tablet Take 10 mg by mouth once daily. - dorzolamide-timolol (COSOPT) 22.3-6.8 mg/mL ophthalmic solution Use 1 Drop in both eyes twice daily. - DULoxetine (CYMBALTA) 60 mg capsule Take 60 mg by mouth once daily. - metFORMIN (GLUCOPHAGE) 1,000 mg tablet Take 1,000 mg by mouth twice daily with meals. - rosuvastatin (CRESTOR) 40 mg tablet Take 40 mg by mouth daily at bedtime. - metoprolol tartrate 75 mg tab Take 75 mg by mouth twice daily. Problem List As Of Date 07/27/2023 Noted Resolved Gastroparesis [K31.84] 06/11/2021 06/12/2021 Preop examination [Z01.818] 05/13/2023 Hypertension [I10] 05/13/2023 Diabetes mellitus without complication (HCC) [E*05/13/2023 CABRERA (obstructive sleep apnea) [G47.33] 05/13/2023 Heartburn [R12] 05/13/2023 Gastroparesis [K31.84] 05/13/2023 Encounter Status:Closed by ROSS DIMAS on 07/27/23 Normal [facility] Calprotectin (Stl) [Mass/Mas s]on 07-27-2023 CALPROTECTIN, FECAL INTERP Elevated Abnormal Normal [facility] Comment on above: Order Comment: Speci men Type: STOOL SPECIMENOrdering Facility: [facility] Address: [address] [place] [address] Result Comment: On 2022, [facility] implemented a new fecal calprotectin method, the [employer] Liaison Calprotectin assay. For assistance with interpretation of results in patients undergoing serial monitoring, contact Client Services at [phone] or [phone] to discuss options, preferably within 7 days of issuing this report. Interpretation: <50.0 ug/g: Normal 50.0 ug/g - 120.0 ug/g: Borderline elevated. Re-evaluation in 4-6 weeks is recommended if clinically indicated. >120.0 ug/g: Elevated Performed By: #### 3 8445-3 ####[facility] [id number] [facility] [id number] [address] [place] CALPROTECTIN, FECAL QUANTITATIVE 599 ug/g High <50 [facility] Comment on above: Order Comment: Speci men Type: STOOL SPECIMENOrdering Facility: [facility] Address: [address] [place] [address] Performed By: #### 3 8445-3 ####[facility] LAB[facility]IA [id number] [place] [address] [place] FAT, FECAL QUALon 07-27-2023 FAT, FECAL - NEUTRAL Normal Normal Normal [facility] Comment on above: Order Comment: Speci men Type: STOOL SPECIMEN Ordering [facility] Address: [address] [place] [address] Performed By: #### F FATQL #### [facility] [id number] [address] [place] [address] FAT, FECAL - SPLIT Normal Normal Normal [facility] Comment on above: Order Comment: Speci men Type: STOOL SPECIMEN Ordering Facility: [facility] Address: [address] [place] [address] Result Comment: INTE RPRETIVE INFORMATION: Fecal Fat Qualitative Neutral fats include the monoglycerides, diglycerides, and triglycerides while split fats are the free fatty acids that are liberated from them. Impaired synthesis or secretion of pancreatic enzymes or bile may cause an increase in neutral fats while an increase in split fats suggests impaired absorption of nutrients. Performed By: [facility] [address] [place] [address] Exhibitions And Collections Manager: Dale Mckeon MD, PhD CLIA Number: [id number] Performed By: #### F FATQL #### [facility] CLIA [id number] [address] [place] [address] H pylori Ag Stl Ql IAon 07-08 H. pylori Ag IA Ql (Stl) H.PYLORI EIA RESULT: Negative for Helicobacter pylori antigen by EIA Normal [facility] Comment on above: Performed By: #### P ANCEF, 19762-6 #### [facility] CLIA [id number] [address] [place] [address] [place] MAGNESIUM BLDon 11-21-2023 Magnesium [Mass/Vol] 1.8 mg/dL 1.7 - 2.3 mg/dL [facility] Magnesium [Mass/Vol] 1.8 mg/dL Normal 1.7-2.3 [facility] Comment on above: Order Comment: Speci men Type: BLOOD SPECIMENOrdering Facility: [facility] Address: [address] [place] [address] Performed By: #### 2 132-9, 48849-1 ####[facility] [id number] [place] [address] [place] PANC ELASTASE, FECALon 07-27 ELASTASE INTERPRETATION Mild to moderate Exocrine Pancreatic Insufficiency Abnormal Normal [facility] Comment on above: Order Comment: Speci men Type: STOOL SPECIMEN [facility] Address: [address] [place] [address] Performed By: #### P ANCEF, 94536-7 #### [facility] CLIA [id number] [address] [place] [address] [place] ELASTASE-1 CONCENTRATION 196 ug/g Abnormal >=200 [facility] Comment on above: Order Comment: Speci men Type: STOOL SPECIMEN Order[facility] Address: [address] [place] [address] Result Comment: Inte rpretation: <100 ug/g: Severe Exocrine Pancreatic Insufficiency 100-199 ug/g: Mild to Moderate Exocrine Pancreatic Insufficiency >=200 ug/g: Normal Performed By: #### P ANCEF, 24122-9 #### [facility] CLIA [id number] [address] [place] [address] [place] VITAMIN B12 BLOODon 07-27-20 23 Cobalamin (Vitamin B12) [Mass/Vol] 1328 pg/mL High 232 - 1,245 pg/mL [facility] Vit B12 SerPl-mCncon 023 Cobalamin (Vitamin B12) [Mass/Vol] 1328 pg/mL High 232-1245 [facility] Comment on above: Order Comment: Speci men Type: BLOOD SPECIMENOrdering Facility: [facility] Address: [address] [place] [address] [place] [address] Performed By: #### 2 132-9, 51295-4 ####[facility] [id number] [place] [address] [place] CNOVon 07-26-2023 CNOV Office Visit (AGGAST ACC) CESIADOUGLAS Brianna ([id number]) 1955 M Date Time Provider Department 07/26/23 9:00 AM KARLA SAUER AGGASTACC During your visit today, we recorded the following information about you: Pulse Blood pressure Weight Height 48/minute 160/81 73 kg 1.727 m Karla Sauer PA-C 07/26/2023 11:16 AM Signed GASTROENTEROLOGY OUTPATIENT NEW OFFICE VISIT CC: Patient presents with: New Patient HPI: Douglas Callaway JR is a 68 year old male who presents for New Patient for watery diarrhea 4 times per night. Unless he takes an immodium. 1-2 episodes watery stool during the day. This has been going on for about 6 months. He also vomits a few times per week. Previously was diagnosed with gastroparesis, and had a POP with Dr Bray which resolved his symptoms completely. But then over the last 6 months he has developed new onset daily diarrhea, watery stool. As well as occasional nausea and vomiting. - EGD (05/13/23): no abnormality - GES (04/22/23): normal rate of gastric emptying - CT abd/pelvis (04/08/23): No acute findings in the abdomen or pelvis. Biliary stents appear patent and properly positioned. No biliary ductal dilatation. - Pathology (05/13/23): Antral and oxyntic type gastric mucosa with changes of reactive gastropathy and chronic inactive gastritis. Immunohistochemical stain for H. Pylori negative for microorganisms Colonoscopy [address] Bray: Today he reports a resurgence of symptoms - he endorses episodes of nausea/emesis which occur several times per week. He endorses nausea and emesis and irregular/loose bowel movements 3-4 times per night. He also endorses increase in heartburn symptoms. He takes no medications for reflux. He endorses abdominal pain which occurs several times per week and is associated with eating. Current Outpatient Medications Medication Sig dorzolamide (TRUSOPT) 2 % ophthalmic solution Use in eyes. losartan (COZAAR) 50 mg tablet Take 1 tablet by mouth every afternoon. aspirin, enteric coated (JAILENE LOW DOSE ASPIRIN) 81 mg EC tablet Take by mouth. lamoTRIgine (LAMICTAL) 100 mg tablet take 1/2 tablet by mouth once daily to BE TAKEN ALONG WITH 200 MN... (REFER TO PRESCRIPTION NOTES). rosuvastatin (CRESTOR) 10 mg tablet Take 10 mg by mouth every evening. pantoprazole DR (PROTONIX) 40 mg tablet Take 1 tablet by mouth twice daily. lamoTRIgine ER (LAMICTAL XR) 250 mg 24 hr tablet Take by mouth once daily. doxepin capsule 10 mg Take 10 mg by mouth as needed. alendronate (FOSAMAX) 70 mg tablet Take 70 mg by mouth one time a week. In AM with cup of water on empty stomach. Nothing else by mouth and stay upright for 30 min. cyanocobalamin, vitamin B-12, (VITAMIN B12 ORAL) Take 1 tablet by mouth once daily. cholecalciferol, vitamin D3, (VITAMIN D3 ORAL) Take 1 capsule by mouth once daily. dorzolamide-timolol (COSOPT) 22.3-6.8 mg/mL ophthalmic solution Use 1 Drop in both eyes twice daily. DULoxetine (CYMBALTA) 60 mg capsule Take 60 mg by mouth once daily. metFORMIN (GLUCOPHAGE) 1,000 mg tablet Take 1,000 mg by mouth twice daily with meals. metoprolol tartrate 75 mg tab Take 75 mg by mouth twice daily. amoxicillin (AMOXIL) 500 mg capsule take 4 capsules by mouth 1 hour prior to procedure (Patient not taking: Reported on 06/10/2023) amoxicillin-clavulanic acid (AUGMENTIN) 875-125 mg per tablet Take by mouth. (Patient not taking: Reported on 06/10/2023) atorvastatin (LIPITOR) 80 mg tablet Take 1 tablet by mouth every evening. doxycycline hyclate (VIBRAMYCIN) 100 mg capsule Take by mouth. (Patient not taking: Reported on 05/13/2023) oxyCODONE-acetaminophen (PERCOCET) 5-325 mg tablet Take 1-2 tablets by mouth every 8 hours as needed for pain. (Patient not taking: Reported on 09/19/2021) ondansetron (ZOFRAN) 4 mg tablet take 1 tablet by mouth every 8 hours if needed for nausea (Patient not taking: No sig reported) aspirin (JAILENE CHEWABLE ASPIRIN) 81 mg chewable tablet Take 81 mg by mouth once daily. amLODIPine (NORVASC) 10 mg tablet Take 10 mg by mouth once daily. (Patient not taking: Reported on 06/10/2023) rosuvastatin (CRESTOR) 40 mg tablet Take 40 mg by mouth daily at bedtime. (Patient not taking: Reported on 05/13/2023) No current facility-administered medications for this visit. PAST MEDICAL HISTORY Diagnosis Date Bipolar II disorder (HCC) CAD (coronary artery disease) 12/2019 CABG x 3 Carotid artery occlusion with cerebral infarction (HCC) pt denies this; CVA was secondary to HTN CVA (cerebral vascular accident) (HCC) 2004 related to untreated HTN; no residual effects Depression Elevated LFTs Gastroparesis POP procedure 06/11/21 GERD (gastroesophageal reflux disease) Hepatitis A 09/2018 Resolved HTN (hypertension) Hyperlipemia Insomnia CABRERA (obstructive sleep apnea) does not currently have a C (more content not included)... [facility] Telephone (AGGENS4) DOUGLAS CALLAWAY JR ([id number]) 1955 M Date Time Provider Department 07/08/23 KARLA SAUER During your visit today, we recorded the following information about you: Brody Munson 07/08/2023 11:38 AM Signed Pt. Update 11.2.23- gastro called to sreekanth appt left message Allergies As of Date: 07/08/2023 (No Known Allergies) Date Reviewed: 06/10/2023 Reviewed by: Germaine Bray MD - Fully Assessed Reason for Visit: Patient Update [1234] Prescriptions as of 07/08/2023 - amoxicillin (AMOXIL) 500 mg capsule take 4 capsules by mouth 1 hour prior to procedure - amoxicillin-clavulanic acid (AUGMENTIN) 875-125 mg per tablet Take by mouth. - atorvastatin (LIPITOR) 80 mg tablet Take 1 tablet by mouth every evening. - dorzolamide (TRUSOPT) 2 % ophthalmic solution Use in eyes. - doxycycline hyclate (VIBRAMYCIN) 100 mg capsule Take by mouth. - losartan (COZAAR) 50 mg tablet Take 1 tablet by mouth every afternoon. - aspirin, enteric coated (JAILENE LOW DOSE ASPIRIN) 81 mg EC tablet Take by mouth. - lamoTRIgine (LAMICTAL) 100 mg tablet take 1/2 tablet by mouth once daily to BE TAKEN ALONG WITH 200 MN... (REFER TO PRESCRIPTION NOTES). - rosuvastatin (CRESTOR) 10 mg tablet Take 10 mg by mouth every evening. - pantoprazole DR (PROTONIX) 40 mg tablet Take 1 tablet by mouth twice daily. - lamoTRIgine ER (LAMICTAL XR) 250 mg 24 hr tablet Take by mouth once daily. - doxepin capsule 10 mg Take 10 mg by mouth as needed. - alendronate (FOSAMAX) 70 mg tablet Take 70 mg by mouth one time a week. In AM with cup of water on empty stomach. Nothing else by mouth and stay upright for 30 min. - oxyCODONE-acetaminophen (PERCOCET) 5-325 mg tablet Take 1-2 tablets by mouth every 8 hours as needed for pain. - ondansetron (ZOFRAN) 4 mg tablet take 1 tablet by mouth every 8 hours if needed for nausea - cyanocobalamin, vitamin B-12, (VITAMIN B12 ORAL) Take 1 tablet by mouth once daily. - cholecalciferol, vitamin D3, (VITAMIN D3 ORAL) Take 1 capsule by mouth once daily. - aspirin (JAILENE CHEWABLE ASPIRIN) 81 mg chewable tablet Take 81 mg by mouth once daily. - amLODIPine (NORVASC) 10 mg tablet Take 10 mg by mouth once daily. - dorzolamide-timolol (COSOPT) 22.3-6.8 mg/mL ophthalmic solution Use 1 Drop in both eyes twice daily. - DULoxetine (CYMBALTA) 60 mg capsule Take 60 mg by mouth once daily. - metFORMIN (GLUCOPHAGE) 1,000 mg tablet Take 1,000 mg by mouth twice daily with meals. - rosuvastatin (CRESTOR) 40 mg tablet Take 40 mg by mouth daily at bedtime. - metoprolol tartrate 75 mg tab Take 75 mg by mouth twice daily. Problem List As Of Date 07/08/2023 Noted Resolved Gastroparesis [K31.84] 06/11/2021 06/12/2021 Preop examination [Z01.818] 05/13/2023 Hypertension [I10] 05/13/2023 Diabetes mellitus without complication (HCC) [E*05/13/2023 CABRERA (obstructive sleep apnea) [G47.33] 05/13/2023 Heartburn [R12] 05/13/2023 Gastroparesis [K31.84] 05/13/2023 Encounter Status:Closed by BRODY MUNSON on 07/08/23 [facility] CNOVon 06-10-2023 [facility] Office Visit (AGGENS 4) DOUGLAS CALLAWAY ([id number]) 1955 M Date Time Provider Department 06/10/23 10:00 AM GERMAINE BRAY AGGENS4 During your visit today, we recorded the following information about you: Pulse Blood pressure Weight Height 62/minute 110/68 72.8 kg 1.727 m Germaine Bray MD 06/10/2023 11:23 AM Signed SURGICAL SERVICES HISTORY AND PHYSICAL EXAMINATION SERVICE DATE: 06/10/2023 SERVICE TIME: 10:52 AM PRIMARY CARE PHYSICIAN: Iván Case MD, MD SUBJECTIVE CHIEF COMPLAINT: gastroparesis HISTORY OF PRESENT ILLNESS: Mr. Callaway is a 68 year old male with a PMH of CAD (triple vessel CABG 12/2019), carotid artery disease with cerebral infarction/CVA/TIA, type 2 DM (A1c 6.8; 18 months), depression/bipolar, gastroparesis, HTN, CABRERA, and glacoma who presents for follow up of gastroparesis. Today the patient endorses watery nocturnal diarrhea that he currently controls with PRN imodium that he purchased OTC. Nausea has resolved. He does continue with intermittent emesis that is unrelated to oral intake. The emesis is watery with food particles in it and occurs with a particular fullness. He and his report he has new lower extremity weakness and essential tremor of his hands which have progressively worsened. I encouraged him to touch base with his PCP regarding these new issues which could be secondary to neurologic issue versus chronic diarrhea. Per my last clinic note on 04/06/23: He underwent POP procedure on 06/11/21. When I last saw him in clinic on 07/08/21 he was doing well. He never followed up after that visit. Today he reports a resurgence of symptoms - he endorses episodes of nausea/emesis which occur several times per week. He endorses nausea and emesis and irregular/loose bowel movements 3-4 times per night. He also endorses increase in heartburn symptoms. He takes no medications for reflux. He endorses abdominal pain which occurs several times per week and is associated with eating. He was hospitalized for gallstone pancreatitis and underwent Lap CCx on 09/02/21. IOC demonstrated a hepatic duct leak. Then Dr. Yarbrough of GI performed an ERCP with sphincterotomy and stent placement. Pathology demonstrated acute and chronic hemorrhagic and ulcerated cholecystitis and cholelithiasis. Work up: - EGD (05/13/23): no abnormality - GES (04/22/23): normal rate of gastric emptying - CT abd/pelvis (04/08/23): No acute findings in the abdomen or pelvis. Biliary stents appear patent and properly positioned. No biliary ductal dilatation. - Pathology (05/13/23): Antral and oxyntic type gastric mucosa with changes of reactive gastropathy and chronic inactive gastritis. Immunohistochemical stain for H. Pylori negative for microorganisms - EGD 08/27/20: large gastric bezoar - GES 10/21/20: no discernible emptying with severe gastroparesis - Smartll: GET 4:29 minutes; all other emptying times are WNL consistent with borderline abnormal gastric transit time PAST MEDICAL HISTORY: PAST MEDICAL HISTORY Diagnosis Date Bipolar II disorder (HCC) CAD (coronary artery disease) 12/2019 CABG x 3 Carotid artery occlusion with cerebral infarction (HCC) pt denies this; CVA was secondary to HTN CVA (cerebral vascular accident) (HCC) 2003 related to untreated HTN; no residual effects Depression Elevated LFTs Gastroparesis POP procedure 06/11/21 GERD (gastroesophageal reflux disease) Hepatitis A 09/2018 Resolved HTN (hypertension) Hyperlipemia Insomnia CABRERA (obstructive sleep apnea) does not currently have a CPAP Osteoporoses Renal insufficiency TIA (transient ischemic attack) prior to CVA in 2003, none since Type 2 diabetes mellitus (HCC) 2018 Iván Case PCP PAST SURGICAL HISTORY: PAST SURGICAL HISTORY Procedure Laterality Date COLONOSCOPY GEN ANES 09/2017 normal per patient CORONARY ART/GRFT ANGIO ARIADNA 12/15/2019 [facility] ; CABG x 3 EGD 08/2020 at [facility] EGD WITH BIOPSY(S) 05/13/2023 Dr. Fajardo ERCP STENT PLACEMENT BILIARY/PANCREATIC DUCT 09/02/2021 Dr Yarbrough GI TRANSIT AND PRES CARLEY WIRELESS CAPSULE W/INTERP 01/08/2021 Smart Pill-delayed gastric emptying; INCISIONAL BIOPSY SKIN SINGLE LESION biopsy of mass over right eye; benign LAPAROSCOPIC CHOLECYSTECTOMY 09/02/2021 PER ORAL PYLOROMYOTOMY (POP) PROCEDURE (COMP 39521) 06/11/2021 Dr. Bray REMV CATARACT EXTRACAP,INSERT LENS Bilateral 2015 SHOULDER SURGERY HX TONSILLECTOMY HX FAMILY HISTORY: FAMILY HISTORY Problem Relation Age of Onset other (pulmonary fibrosis) Mother Colon Cancer Father SOCIAL HISTORY: Social History Tobacco Use Smoking status: Former Types: Cigarettes Smokeless tobacco: Never Tobacco comments: during college Vaping Use Vaping Use: Never used Substance Use Topics Alcohol use: Yes Alcohol/week: 12.0 standar (more content not included)... Normal [facility] ANES POSTPROC EVALon 023 ANES POSTPROC EVAL HNO ID: [id number] Author: Norberto Calderon MD Service: Anesthesiology Author Type: Physician Type: Anesthesia Postprocedure Evaluation Filed: 05/13/2023 3:47 PM Note Text: POST ANESTHESIA EVALUATION NOTE : 1955 Procedure Summary Date: 05/13/23 Room / Location: [facility] Anesthesia Start: 1512 Anesthesia Stop: 153 Procedure: EGD DIAGNOSTIC Diagnosis: Gastroparesis Heartburn Scheduled Providers: Germaine Bray MD Responsible Provider: Norberto Calderon MD Anesthesia Type: MAC ASA Status: 4 Anesthesia Type: MAC Last Vitals Vitals Value Taken Time BP 109/58 05/13/23 1532 Temp 36.3 ?C (97.3 ?F) 05/13/23 1532 Pulse 69 05/13/23 1532 Resp 15 05/13/23 1532 SpO2 96 % 05/13/23 1532 Post Anesthesia Patient Status Patient Evaluation: bedside. Pulmonary Status: breathing comfortably on supplemental oxygen Cardiovascular Status: stable. Intraoperative Events: no significant anesthesia events Recommendation: continue current plan of care. Other Remarks: Teeth unchanged. Anesthesia Observations No Documentation SIGNATURE: Norberto Calderon MD PATIENT NAME: Douglas Callaway JR DATE: May 13, 2023 TIME: 3:35 PM CSN: [id number] [facility] ANES PRE-OPon 05-13-2023 ANES PRE-OP HNO ID: [id number] Author: Norberto Calderon MD Service: Anesthesiology Author Type: Physician Type: Anesthesia Preprocedure Evaluation Filed: 05/13/2023 3:27 PM Note Text: Believe these changes are non controverANESTHESIOLOGY DAY OF SURGERY NOTE : 1955 Procedure Information Date/Time: 05/13/23 1500 Scheduled providers: Germaine Bray MD Procedure: EGD DIAGNOSTIC Location: [facility] Estimated body mass index is 25.24 kg/m? as calculated from the following: Height as of this encounter: 172.7 cm (5' 8). Weight as of this encounter: 75.3 kg (166 lb). Most recent hematocrit and potassium results: Hematocrit 31.0 06/12/2021 Potassium 4.4 06/12/2021 Relevant Problems ANESTHESIA (+) CABRERA (obstructive sleep apnea) CARDIO (+) Primary hypertension PULMONARY (+) CABRERA (obstructive sleep apnea) I - PHYSICAL EVALUATION AIRWAY Patient intubated: No. Tracheostomy tube not present Mallampati: II. TM distance: >3 FB. Neck ROM: limited flexion and extension. Mouth opening: adequate. Short neck: no. Thick neck: no Lip Bite Test: II DENTAL Normal dental observations. Dental findings: poor dentition. II - ANESTHESIA PLAN ASA Score: 4 Anesthetic Plan: MAC NPO Status: adequate Beta Bridgett Administration of chronic beta bridgett medication not planned. Reasons for not administering beta bridgett perioperatively: other Monitoring Plan Monitoring plan: standard ASA. Post Procedure Analgesic Plan Postoperative analgesic plan: parenteral or oral opioids and per surgical service. Informed Consent Anesthetic risks, benefits, alternatives, personnel and consent discussed: yes. Patient / Responsible Green Party agrees to proceed: yes Patient / Surrogate agrees to blood products: blood products not planned Discussed the possibility of lip / dental damage: yes Vitals Value Taken Time BP 141/66 05/13/23 1400 Pulse 46 05/13/23 1400 Resp 16 05/13/23 1400 Temp 36.2 ?C (97.2 ?F) 05/13/23 1400 SpO2 98 % 05/13/23 1400 Outpatient Medications as of 05/13/2023 Medication Sig - amoxicillin-clavulanic acid (AUGMENTIN) 875-125 mg per tablet Take by mouth. - atorvastatin (LIPITOR) 80 mg tablet Take 1 tablet by mouth every evening. - losartan (COZAAR) 50 mg tablet Take 1 tablet by mouth every afternoon. - aspirin, enteric coated (JAILENE LOW DOSE ASPIRIN) 81 mg EC tablet Take by mouth. - aspirin (JAILENE CHEWABLE ASPIRIN) 81 mg chewable tablet Take 81 mg by mouth once daily. - metFORMIN (GLUCOPHAGE) 1,000 mg tablet Take 1,000 mg by mouth twice daily with meals. - metoprolol tartrate 75 mg tab Take 75 mg by mouth twice daily. - amoxicillin (AMOXIL) 500 mg capsule take 4 capsules by mouth 1 hour prior to procedure - doxycycline hyclate (VIBRAMYCIN) 100 mg capsule Take by mouth. (Patient not taking: Reported on 05/13/2023) - lamoTRIgine (LAMICTAL) 100 mg tablet take 1/2 tablet by mouth once daily to BE TAKEN ALONG WITH 200 MN... (REFER TO PRESCRIPTION NOTES). - rosuvastatin (CRESTOR) 10 mg tablet Take 10 mg by mouth every evening. - lamoTRIgine ER (LAMICTAL XR) 250 mg 24 hr tablet Take by mouth once daily. - doxepin capsule 10 mg Take 10 mg by mouth as needed. - alendronate (FOSAMAX) 70 mg tablet Take 70 mg by mouth one time a week. In AM with cup of water on empty stomach. Nothing else by mouth and stay upright for 30 min. - pantoprazole DR (PROTONIX) 40 mg tablet Take 1 tablet by mouth twice daily for 54 doses. (Patient not taking: Reported on 04/06/2023) - oxyCODONE-acetaminophen (PERCOCET) 5-325 mg tablet Take 1-2 tablets by mouth every 8 hours as needed for pain. (Patient not taking: Reported on 09/19/2021) - ondansetron (ZOFRAN) 4 mg tablet take 1 tablet by mouth every 8 hours if needed for nausea (Patient not taking: No sig reported) - cyanocobalamin, vitamin B-12, (VITAMIN B12 ORAL) Take 1 tablet by mouth once daily. - cholecalciferol, vitamin D3, (VITAMIN D3 ORAL) Take 1 capsule by mouth once daily. - amLODIPine (NORVASC) 10 mg tablet Take 10 mg by mouth once daily. (Patient not taking: Reported on 05/13/2023) - dorzolamide-timolol (COSOPT) 22.3-6.8 mg/mL ophthalmic solution Use 1 Drop in both eyes twice daily. - DULoxetine (CYMBALTA) 60 mg capsule Take 60 mg by mouth once daily. - rosuvastatin (CRESTOR) 40 mg tablet Take 40 mg by mouth daily at bedtime. (Patient not taking: Reported on 05/13/2023) Facility-Administered Medications as of 05/13/2023 Medication Dose Route Frequency - lactated ringers iv infusion 30 mL/hr INTRAVENOUS CONTINUOUS - [COMPLETED] ondansetron (PF) 4 mg injection (ZOFRAN) 4 mg INTRAVENOUS ONCE I have interviewed and examined the patient. I have reviewed the medical record and/or the pre-anesthesia evaluation, pertinent labs, and test results. This contains updated information obtained within 48 hours of Surgery/Procedure. SIGNATURE: Norberto Calderon MD PATIENT NAME: Doulgas Callaway JR DATE: May 13, 2023 MRN: (more content not included)... Normal [facility] EGD DIAGNOSTICon 05-13-2023 [facility] HISTORY PHYSICALon HISTORY PHYSICAL HNO ID: [id number] Author: Tiffany Ramey APRN.CNP Service: Anesthesiology Author Type: Nurse Practitioner Type: HANDP Filed: 05/13/2023 2:33 PM Note Text: HISTORY AND PHYSICAL EXAMINATION Patient: Douglas Callaway JR : 1955 SERVICE DATE: 05/13/2023 SERVICE TIME: 7:27 AM PRIMARY CARE PHYSICIAN: Iván Case MD, MD SURGEON: Dr. Bray ANESTHESIA: mac DIAGNOSIS: Gastroparesis [K31.84] Heartburn [R12] PROCEDURE: EGD Subjective The reason for this visit is to perform a comprehensive review of the patient's past medical history, assess their current health status and obtain any additional testing required based on anesthesia guidelines. We will also identify any potential anesthesia problems or contraindications to the planned procedure. CHIEF COMPLAINT: EGD HPI: This is a 68-year-old male who presents for EGD. Hx gastroparesis, s/p POP 2020. Reports nausea and vomiting which occur several times per week onset a few months ago. Also has intermittent heartburn. Denies abdominal pain. METS: Climb a flight of stairs or walk up a hill (5.50 METs) Patient denies any chest pain or shortness of breath with above physical activity. FUNCTIONAL STATUS: Independent PAST MEDICAL HISTORY Diagnosis Date Bipolar II disorder (HCC) CAD (coronary artery disease) 12/2019 CABG x 3 Carotid artery occlusion with cerebral infarction (HCC) pt denies this; CVA was secondary to HTN CVA (cerebral vascular accident) (HCC) 2003 related to untreated HTN; no residual effects Depression Elevated LFTs Gastroparesis POP procedure 06/11/21 GERD (gastroesophageal reflux disease) Hepatitis A 09/2018 Resolved HTN (hypertension) Hyperlipemia Insomnia CABRERA (obstructive sleep apnea) does not currently have a CPAP Osteoporoses Renal insufficiency TIA (transient ischemic attack) prior to CVA in 2003, none since Type 2 diabetes mellitus (HCC) 2018 Iván Case PCP PAST SURGICAL HISTORY Procedure Laterality Date COLONOSCOPY GEN ANES 09/2017 normal per patient CORONARY ART/GRFT ANGIO ARIADNA 12/15/2019 [facility] ; CABG x 3 EGD 08/2020 at [facility] ERCP STENT PLACEMENT BILIARY/PANCREATIC DUCT 09/02/2021 Dr Yarbrough GI TRANSIT AND PRES CARLEY WIRELESS CAPSULE W/INTERP 01/08/2021 Smart Pill-delayed gastric emptying; INCISIONAL BIOPSY SKIN SINGLE LESION biopsy of mass over right eye; benign LAPAROSCOPIC CHOLECYSTECTOMY 09/02/2021 PER ORAL PYLOROMYOTOMY (POP) PROCEDURE (COMP 72105) 06/11/2021 Dr. Tomy LARSON CATARACT EXTRACAP,INSERT LENS Bilateral 2016 SHOULDER SURGERY HX TONSILLECTOMY HX FAMILY HISTORY Problem Relation Age of Onset other (pulmonary fibrosis) Mother Colon Cancer Father Social History Tobacco Use Smoking status: Former Types: Cigarettes Smokeless tobacco: Never Tobacco comments: during college Vaping Use Vaping Use: Never used Substance Use Topics Alcohol use: Yes Alcohol/week: 12.0 standard drinks of alcohol Types: 12 Cans of Beer (12oz) per week Drug use: Never Prior to Admission medications as of 05/13/23 1425 Medication Sig Last Dose Taking amoxicillin-clavulanic acid (AUGMENTIN) 875-125 mg per tablet Take by mouth. Yes atorvastatin (LIPITOR) 80 mg tablet Take 1 tablet by mouth every evening. 05/09/2023 Yes losartan (COZAAR) 50 mg tablet Take 1 tablet by mouth every afternoon. 05/13/2023 Yes aspirin, enteric coated (JAILENE LOW DOSE ASPIRIN) 81 mg EC tablet Take by mouth. Yes aspirin ([employer] CHEWABLE ASPIRIN) 81 mg chewable tablet Take 81 mg by mouth once daily. 05/12/2023 Yes metFORMIN (GLUCOPHAGE) 1,000 mg tablet Take 1,000 mg by mouth twice daily with meals. 05/12/2023 Yes metoprolol tartrate 75 mg tab Take 75 mg by mouth twice daily. 05/13/2023 Yes amoxicillin (AMOXIL) 500 mg capsule take 4 capsules by mouth 1 hour prior to procedure dorzolamide (TRUSOPT) 2 % ophthalmic solution Use in eyes. doxycycline hyclate (VIBRAMYCIN) 100 mg capsule Take by mouth. Patient not taking: Reported on 05/13/2023 Not Taking lamoTRIgine (LAMICTAL) 100 mg tablet take 1/2 tablet by mouth once daily to BE TAKEN ALONG WITH 200 MN... (REFER TO PRESCRIPTION NOTES). 05/10/2023 rosuvastatin (CRESTOR) 10 mg tablet Take 10 mg by mouth every evening. 05/10/2023 lamoTRIgine ER (LAMICTAL XR) 250 mg 24 hr tablet Take by mouth once daily. 05/10/2023 doxepin capsule 10 mg Take 10 mg by mouth as needed. alendronate (FOSAMAX) 70 mg tablet Take 70 mg by mouth one time a week. In AM with cup of water on empty stomach. Nothing else by mouth and stay upright for 30 min. 05/10/[address] (PROTONIX) 40 mg tablet Take 1 tablet by mouth twice daily for 54 doses. Patient not taking: Reported on 04/06/2023 oxyCODONE-acetaminophen (PERCOCET) 5-325 mg tablet Take 1-2 tablets by mouth every 8 hours as needed for pain. Patient not taking: Reported on 09/19/2021 ondansetron (ZOFRAN) 4 mg tablet take 1 tablet by donell (more content not included)... Normal [facility] OPERATIVE NOon 05-13-2023 OPERATIVE NO HNO ID: [id number] Author: Germaine Bray MD Service: General Surgery Author Type: Physician Type: Operative Report Filed: 05/13/2023 3:37 PM Note Text: OPERATIVE/PROCEDURE REPORT LOG ID: [id number] Surgery/Procedure Date: Incision/Procedure Start Time: 3:21 PM Incision Close/Procedure End Time: 3:27 PM Surgeon(s)/Proceduralist(s) and Manager College(s): Surgeon(s) and Role: * Germaine Bray MD - Proceduralist No Additional Staff PREOPERATIVE DIAGNOSIS: 1. Nausea 2. Emesis 3. Heartburn POSTOPERATIVE DIAGNOSIS: 1. Nausea 2. Emesis 3. Heartburn 4. Gastritis of the antrum and body COMPLICATIONS: None. Procedure(s): 1. Esophagogastroduodenoscopy (EGD) with cold forceps biopsies of the gastric antrum/body Anesthesia: * No anesthesia type entered * MAC by Anesthesiology without complications Operative Findings: Diagnostic EGD demonstrated gastritis Operative Indication: Douglas Callaway JR is a 68 year old male who presents for EGD due to new symptoms of heartburn, nausea, and emesis. We discussed the risks, benefits, alternatives, and potential complications, and the patient agreed to proceed. Procedure Details: The patient was brought to the endoscopic suite in stable condition. The preprocedural checklist was completed to the satisfaction of the entire team and verified with the patient. We had previously completed the consent process after discussing the risks and benefits of the procedure, which included, but were not limited to, the risk of hemorrhage, need for blood transfusion, and the possibility of perforation. Once he was induced by Anesthesia and appropriately sedated, the Olympus gastroscope was entered through the mouth. I was easily able to intubate the esophagus. The esophageal portion of the examination was positive for a slightly tortuous esophagus but, otherwise, was within normal limits. The Z-line was measured at 39 centimeters from the bite protector. The diaphragmatic hiatus was measured at 39-cm from the bite protector. I then entered the stomach, which demonstrated moderate amount of gastritis of the antrum and body. The patient had some gastric secretions, which were suctioned out using the gastroscope. I did retroflex the scope, which showed a normal appearing GE junction and fundus from that angle. Retroflex view showed a Hill grade 1. I then intubated the pylorus into the duodenal bulb, examining both the anterior and posterior portions of the duodenal bulb and then into the second portion of the duodenum. That part of the procedure was within normal limits. Once back in the stomach, I then performed 6 separate cold forceps biopsies in the antrum and body to be sent for H.pylorus. This was done with minimal bleeding. I ensured we had good hemostasis. Gastric insufflation was removed using suction. The gastroscope was removed through the mouth. The patient tolerated the procedure very well and was returned to recovery room in stable condition. Recommendations: follow up in clinic. Take PPI twice daily Estimated Blood Loss: minimal Specimens: gastric antrum Implantable Devices: none Drains: None Complications: None I performed the procedure independently SIGNATURE: Germaine Bray MD PATIENT NAME: Douglas Callaway JR DATE: May 13, 2023 TIME: 3:28 PM PAGER/CONTACT #: [facility] SURGICAL PATHOLOGYon [address] [facility] Comment on above: Order Comment: Speci men Type: TISSUE SPECIMENOrdering Facility: [facility] Address: [facility] [place] [address] Result Comment: Surg ica Pathology Report Case: [id number] Authorizing Provider: Germaine Bray MD Collected: 05/13/2023 03:26 PM Ordering Location: [facility] Received: 05/14/2023 08:23 AM Pathologist: Claudette Altamirano MD Specimen: ANTRUM (STOMACH) BIOPSY Performed By: #### S ####[facility] [id number] [address] DIAGNOSIS COMMENT [facility] Comment on above: Order Comment: Speci men Type: TISSUE SPECIMENOrdering Facility: [facility] Address: [address] [place] [address] Result Comment: Konstantin Patrick Test (LDT) Disclaimer: Performance characteristics of immunohistochemical, immunofluorescent and chromogenic in-situ hybridization tests have been determined by the performing laboratory within [facility] Pathology and Laboratory Medicine [place] ([facility], [facility], [facility], [facility], [facility], or [facility]) in a manner consistent with CLIA requirements. One or more of these tests have not been cleared or approved by the FDA. [facility] is regulated under CLIA as qualified to perform high-complexity testing. These tests are used for clinical purposes. They should not be regarded as investigational or for research. Positive and negative controls stain appropriately. Performed By: #### S ####[facility]PITALIA [id number] [address] FINAL DIAGNOSIS Normal [facility] Comment on above: Order Comment: Speci men Type: TISSUE SPECIMENOrdering Facility: [facility] Address: [address] [place] [address] Result Comment: A. A ntrum (stomach), biopsy: -- Antral and oxyntic type gastric mucosa with changes of reactive gastropathy and chronic inactive gastritis. -- Immunohistochemical stain for H. Pylori negative for microorganisms. Performed By: #### S ####[facility]ITAL[facility] [id number] [place] [id number] [facility] FINAL PERFORMING LAB [facility] Comment on above: Order Comment: Speci men Type: TISSUE SPECIMENOrdering Facility: [facility] Address: [address] [address] Result Comment: Diag nostic interpretation performed at [facility], [address] [place] [address] CLIA# [id number] Exhibitions And Collections Manager: Colton Gamble M.D. Performed By: #### S ####[facility]ATORYCLIA [id number] [address] [place] GROSS DESCRIPTION Normal [facility] Comment on above: Order Comment: Speci men Type: TISSUE SPECIMENOrdering Facility: [facility] Address: [address] [place] [id number] Result Comment: A. A NTRUM (STOMACH) BIOPSY Received in formalin labeled antrum (stomach) biopsy are multiple pieces of manuel, soft tissue aggregating to 1.5 x 0.2 x 0.2 cm. Totally submitted in one cassette. Gross examination performed at [facility], [address] [place] [address] CLIA# [id number] [facility] May 14, 2023 12:16 PM Performed By: #### S ####[facility] LABORATORYCLIA [id number] [address] [place] Upper GI endoscopyon 023 Upper GI endoscopy [facility] Gastrointestinal Endoscopy Patient Name: Douglas Callaway Procedure Date: 05/13/2023 3:07 PM Date of : 1955 Admit Type: Outpatient Room: [place] [address] Gender: Male Note Status: Finalized Attending MD: Germaine Bray MD Procedure: Upper GI endoscopy Indications: Heartburn Providers: Germaine Bray MD Patient Profile: Refer to note in patient chart for documentation of history and physical. Patient has symptoms of acute nausea. Referring Physician: Germaine Bray MD (Referring MD) Medicines: Monitored Anesthesia Care Complications: No immediate complications. Procedure: Pre-Anesthesia Assessment: - Prior to the procedure, a History and Physical was performed, and patient medications and allergies were reviewed. The patient's tolerance of previous anesthesia was also reviewed. The risks and benefits of the procedure and the sedation options and risks were discussed with the patient. All questions were answered, and informed consent was obtained. Prior Anticoagulants: The patient has taken no anticoagulant or antiplatelet agents except for aspirin. ASA Grade Assessment: III - A patient with severe systemic disease. After reviewing the risks and benefits, the patient was deemed in satisfactory condition to undergo the procedure. After obtaining informed consent, the endoscope was passed under direct vision. Throughout the procedure, the patient's blood pressure, pulse, and oxygen saturations were monitored continuously. The Endoscope was introduced through the mouth, and advanced to the third part of duodenum. I was present and participated during the entire procedure, including non-gordillo portions, and during the administration and monitoring of Moderate Sedation. The upper GI endoscopy was accomplished without difficulty. The patient tolerated the procedure well. Moderate Sedation: Exam was performed under monitored anesthesia care (MAC) Findings: The examined esophagus was normal. Localized moderate inflammation characterized by erythema was found in the gastric antrum. This was biopsied with a cold forceps for histology. Estimated blood loss: none. The in the duodenum was normal. Estimated Blood Loss: Estimated blood loss: none. Impression: - Normal esophagus. - Gastritis. Biopsied. - Normal. Recommendation: - Discharge patient to home (ambulatory). - Resume previous diet indefinitely. - Continue present medications. - Resume aspirin at prior dose tomorrow. Procedure Code(s): --- Professional --- 98093, Esophagogastroduodenoscopy, flexible, transoral; with biopsy, single or multiple --- Technical --- 92994, Esophagogastroduodenoscopy, flexible, transoral; with biopsy, single or multiple Diagnosis Code(s): --- Professional --- K29.70, Gastritis, unspecified, without bleeding R12, Heartburn --- Technical --- K29.70, Gastritis, unspecified, without bleeding R12, Heartburn CPT copyright 2020 [employer]. All rights reserved. The codes documented in this report are preliminary and upon sheet metal duct installer review may be revised to meet current compliance requirements. Attending Participation: I personally performed the entire procedure. Scope In: 3:21:25 PM Scope Out: 3:27:00 PM MD Germaine Tracey MD 05/13/2023 3:42:20 PM This report has been signed electronically by Germaine Bray MD Number of Addenda: 0 Note Initiated On: 05/13/2023 3:[address] [facility] NM GASTRIC EMPTYING SOLIDon 04-22-2023 NM GASTRIC EMPTYING SOLID * * *Final Report* * * DATE OF EXAM: Apr 22 2023 12:05PM BETSY Palmer - NM GASTRIC EMPTYING SOLID / PROCEDURE REASON: Nausea * * * * Physician Interpretation * * * * SOLID MEAL GASTRIC EMPTYING STUDY: CLINICAL HISTORY: Early satiety. Nausea. To assess for abnormal gastric emptying of a solid meal. TECHNIQUE: 1.1 mCi Tc-99m sulfur colloid was given orally in a meal consisting of 4 oz Egg Beaters, 1 piece(s) toast, 30g strawberry jam, and 4 oz water, consumed over 5 to 10 minutes. FINDINGS: Solid study demonstrates 80% retention at 1hr, 52% retention at 2hr, and 9% retention at 4hr (normal emptying is 37-90% retention at 1hr, 30-60% retention at 2hr, and 0-10% retention at 4hr). There is no accelerated emptying of gastric contents, with 80% retention at 1hr (rapid emptying is <30% retention at 1hr). IMPRESSION: NORMAL RATE OF GASTRIC EMPTYING OF SOLID MEAL. Toll Ticket Clerk: SEN Transcribe Date/Time: Apr 22 2023 2:25P Dictated by : CINDY NARVAEZ MD This examination was interpreted and the report reviewed and electronically signed by: CINDY NARVAEZ MD on Apr 22 2023 2:27PM EST [id number] Normal [facility] Hazel 04-08-2023 DONTRELLN Telephone (AGGENS4) DOUGLAS CALLAWAY JR ([id number]) 1955 M Date Time Provider Department 04/08/23 GERMAINE BRAYENS4 During your visit today, we recorded the following information about you: Spring Reilly MA 04/08/2023 10:38 AM Signed Left voicemail for patient to call the office to schedule EGD then follow up in office. ESA Humphreys Heather, MA 04/09/2023 10:13 AM Signed I spoke with patient and scheduled EGD for 05/13/2023 @ 3:00 pm. Prep/instructions given verbally and mailed to the patient. Patient also scheduled for a follow up 06/10/2023. Spring Reilly MA Allergies As of Date: 04/08/2023 (No Known Allergies) Date Reviewed: 04/07/2023 Reviewed by: Vianca Martinez, RT(R) - Fully Assessed Reason for Visit: Appointment [186] Cmt: EGD Prescriptions as of 04/09/2023 - lamoTRIgine ER (LAMICTAL XR) 250 mg 24 hr tablet Take by mouth once daily. - doxepin capsule 10 mg Take 10 mg by mouth as needed. - alendronate (FOSAMAX) 70 mg tablet Take 70 mg by mouth one time a week. In AM with cup of water on empty stomach. Nothing else by mouth and stay upright for 30 min. - pantoprazole DR (PROTONIX) 40 mg tablet Take 1 tablet by mouth twice daily for 54 doses. - oxyCODONE-acetaminophen (PERCOCET) 5-325 mg tablet Take 1-2 tablets by mouth every 8 hours as needed for pain. - ondansetron (ZOFRAN) 4 mg tablet take 1 tablet by mouth every 8 hours if needed for nausea - cyanocobalamin, vitamin B-12, (VITAMIN B12 ORAL) Take 1 tablet by mouth once daily. - cholecalciferol, vitamin D3, (VITAMIN D3 ORAL) Take 1 capsule by mouth once daily. - aspirin (JAILENE CHEWABLE ASPIRIN) 81 mg chewable tablet Take 81 mg by mouth once daily. - amLODIPine (NORVASC) 10 mg tablet Take 10 mg by mouth once daily. - dorzolamide-timolol (COSOPT) 22.3-6.8 mg/mL ophthalmic solution Use 1 Drop in both eyes twice daily. - DULoxetine (CYMBALTA) 60 mg capsule Take 60 mg by mouth once daily. - metFORMIN (GLUCOPHAGE) 1,000 mg tablet Take 1,000 mg by mouth twice daily with meals. - rosuvastatin (CRESTOR) 40 mg tablet Take 40 mg by mouth daily at bedtime. - metoprolol tartrate 75 mg tab Take 75 mg by mouth twice daily. Problem List As Of Date 04/08/2023 Noted Resolved Gastroparesis [K31.84] 06/11/2021 06/12/2021 Encounter Status:Closed by SPRING REILLY on 04/09/[address] [facility] CREATININE BLDon 04-08-2023 Creatinine [Mass/Vol] 1.27 mg/dL High 0.73-1.22 [facility] Comment on above: Order Comment: Speci men Type: BLOOD SPECIMENOrdering Facility: [facility] Address: [address] [place] [address] Performed By: #### C RET1 ####[facility] [id number] [place] [address] [place] ESTIMATED GLOMERULAR FILTRATION RATE 61 mL/min/1.73m??? Normal >=60 [facility] Comment on above: Order Comment: Speci men Type: BLOOD SPECIMENOrdering Facility: [facility] Address: [address] [place] [address] Result Comment: Poppy mated Glomerular Filtration Rate (eGFR) is calculated using the 2020 CKD-EPI creatinine equation. This equation utilizes serum creatinine, sex, and age as parameters. The creatinine assay has traceable calibration to isotope dilution-mass spectrometry. Refer to KDIGO guidelines for clinical interpretation. In patients with unstable renal function, e.g. those with acute kidney injury, the eGFR may not accurately reflect actual GFR. Performed By: #### C RET1 ####[facility]ITAL[facility]CLIA [id number] [place] [address] [place] CT ABD/PEL W IVCONon 023 CT ABD/PEL W IVCON * * *Final Report* * * DATE OF EXAM: Apr 08 2023 3:35PM [facility] 0530 - CT ABD/PEL W IVCON / PROCEDURE REASON: Nausea * * * * Physician Interpretation * * * * EXAMINATION: CT ABDOMEN AND PELVIS WITH IV CONTRAST CLINICAL HISTORY: Nausea. TECHNIQUE: CT of the abdomen and pelvis was performed using standard technique, scanning from just above the dome of the diaphragm to the symphysis pubis. MQ: CTAP_3 Contrast: IV: 100 ml of Omnipaque 350 Oral: 12 ml of Omni 240 10-25ml diluted with water CT Radiation dose: Integrated Dose-length product (DLP) for this visit = 441 mGy*cm. CT Dose Reduction Employed: Automated exposure control(AEC) and iterative recon COMPARISON: CT abdomen and pelvis 12/18/2020. RESULT: Liver: No mass. Biliary: Postsurgical changes of cholecystectomy. Biliary stents in place. Pneumobilia, not unexpected given stent. Spleen: No mass. No splenomegaly. Pancreas: No mass or duct dilation. Adrenals: No mass. Kidneys: Subcentimeter lesions that are too small to characterize but likely benign. Simple renal cysts. Multifocal parenchymal defects are unchanged. Nonobstructing 7 mm right renal calculus, unchanged. GI tract: No dilation or wall thickening. Normal appendix. Lymph nodes: No abdominal or pelvic lymphadenopathy. Mesentery/Peritoneum: No ascites or mass. Retroperitoneum: No mass. Vasculature: - Abdominal aorta and iliac arteries: Atherosclerotic calcifications without aneurysm. - Celiac and SMA: Patent without stenosis. - Portal venous system (SMV, splenic vein, portal vein and branches): Patent. - Hepatic veins: Patent. Pelvis: No mass, ascites or fluid collection. Bones/Soft Tissues: Partial imaged median sternotomy. Degenerative changes. Lower thorax: No acute findings. Freight Hustler (topogram) images: No additional findings. IMPRESSION: No acute findings in the abdomen or pelvis. Biliary stents appear patent and properly positioned. No biliary ductal dilatation. Toll Ticket Clerk: PSCB Transcribe Date/Time: Apr 10 2023 4:35P Dictated by : KEVIN JOHN MD This examination was interpreted and the report reviewed and electronically signed by: KEVIN JOHN MD on Apr 10 2023 4:44PM EST [id number] Normal [facility] CNOVon 04-06-2023 CNOV Office Visit (AGGENS 4) DOUGLAS CALLAWAY JR ([id number]) 1955 M Date Time Provider Department 04/06/23 12:00 PM GERMAINE BRAY AGGENS4 During your visit today, we recorded the following information about you: Pulse Blood pressure Weight Height 43/minute 120/59 75.3 kg 1.727 m Germaine Bray MD 04/06/2023 12:52 PM Signed SURGICAL SERVICES HISTORY AND PHYSICAL EXAMINATION SERVICE DATE: 04/06/2023 SERVICE TIME: 12:33 PM PRIMARY CARE PHYSICIAN: Iván Case SUBJECTIVE CHIEF COMPLAINT: gastroparesis HISTORY OF PRESENT ILLNESS: Mr. Callaway is a 68 year old male with a PMH of CAD (triple vessel CABG 12/2019), carotid artery disease with cerebral infarction/CVA/TIA, type 2 DM (A1c 6.8; 18 months), depression/bipolar, gastroparesis, HTN, CABRERA, and glacoma who presents for follow up of gastroparesis. He underwent POP procedure on 06/11/21. When I last saw him in clinic on 07/08/21 he was doing well. He never followed up after that visit. Today he reports a resurgence of symptoms - he endorses episodes of nausea/emesis which occur several times per week. He endorses nausea and emesis and irregular/loose bowel movements 3-4 times per night. He also endorses increase in heartburn symptoms. He takes no medications for reflux. He endorses abdominal pain which occurs several times per week and is associated with eating. He was hospitalized for gallstone pancreatitis and underwent Lap CCx on 09/02/21. IOC demonstrated a hepatic duct leak. Then Dr. Yarbrough of GI performed an ERCP with sphincterotomy and stent placement. Pathology demonstrated acute and chronic hemorrhagic and ulcerated cholecystitis and cholelithiasis. Work up: - EGD 08/27/20: large gastric bezoar - GES 10/21/20: no discernible emptying with severe gastroparesis - Smartll: GET 4:29 minutes; all other emptying times are WNL consistent with borderline abnormal gastric transit time PAST MEDICAL HISTORY: PAST MEDICAL HISTORY Diagnosis Date Bipolar II disorder (HCC) CAD (coronary artery disease) 12/2019 CABG x 3 Carotid artery occlusion with cerebral infarction (HCC) pt denies this; CVA was secondary to HTN CVA (cerebral vascular accident) (HCC) 2003 related to untreated HTN; no residual effects Depression Elevated LFTs Gastroparesis POP procedure 06/11/21 GERD (gastroesophageal reflux disease) Hepatitis A 09/2018 Resolved HTN (hypertension) Hyperlipemia Insomnia CABRERA (obstructive sleep apnea) does not currently have a CPAP Osteoporoses Renal insufficiency TIA (transient ischemic attack) prior to CVA in 2003, none since Type 2 diabetes mellitus (HCC) 2018 Iván Case PCP PAST SURGICAL HISTORY: PAST SURGICAL HISTORY Procedure Laterality Date COLONOSCOPY GEN ANES 09/2017 normal per patient CORONARY ART/GRFT ANGIO ARIADNA 12/15/2019 [facility] ; CABG x 3 EGD 08/2020 [facility] ERCP STENT PLACEMENT BILIARY/PANCREATIC DUCT 09/02/2021 Dr Yarbrough GI TRANSIT AND PRES CARLEY WIRELESS CAPSULE W/INTERP 01/08/2021 Smart Pill-delayed gastric emptying; INCISIONAL BIOPSY SKIN SINGLE LESION biopsy of mass over right eye; benign LAPAROSCOPIC CHOLECYSTECTOMY 09/02/2021 PER ORAL PYLOROMYOTOMY (POP) PROCEDURE (COMP 87991) 06/11/2021 Dr. Bray REMV CATARACT EXTRACAP,INSERT LENS Bilateral 2016 SHOULDER SURGERY HX 3 TONSILLECTOMY HX FAMILY HISTORY: FAMILY HISTORY Problem Relation Age of Onset other (pulmonary fibrosis) Mother Colon Cancer Father SOCIAL HISTORY: Social History Tobacco Use Smoking status: Former Types: Cigarettes Smokeless tobacco: Never Tobacco comments: during college Vaping Use Vaping Use: Never used Substance Use Topics Alcohol use: Yes Alcohol/week: 12.0 standard drinks of alcohol Types: 12 Cans of Beer (12oz) per week Drug use: Never MEDICATIONS: Current Outpatient Medications Medication Sig lamoTRIgine ER (LAMICTAL XR) 250 mg 24 hr tablet Take by mouth once daily. doxepin capsule 10 mg Take 10 mg by mouth as needed. alendronate (FOSAMAX) 70 mg tablet Take 70 mg by mouth one time a week. In AM with cup of water on empty stomach. Nothing else by mouth and stay upright for 30 min. cyanocobalamin, vitamin B-12, (VITAMIN B12 ORAL) Take 1 tablet by mouth once daily. cholecalciferol, vitamin D3, (VITAMIN D3 ORAL) Take 1 capsule by mouth once daily. aspirin (JAILENE CHEWABLE ASPIRIN) 81 mg chewable tablet Take 81 mg by mouth once daily. amLODIPine (NORVASC) 10 mg tablet Take 10 mg by mouth once daily. dorzolamide-timolol (COSOPT) 22.3-6.8 mg/mL ophthalmic solution Use 1 Drop in both eyes twice daily. DULoxetine (CYMBALTA) 60 mg capsule Take 60 mg by mouth once daily. metFORMIN (GLUCOPHAGE) 1,000 mg tablet Take 1,000 mg by mouth twice daily with meals. rosuvastatin (CRESTOR) 40 mg tablet Take 40 mg by mouth daily at bedtime. (more content not included)... Normal [facility] Absolute lymphocyte counton 07-16-2022 Lymphocytes Auto (Unsp spec) [#/Vol] 1.82 10*3/uL 0.83-4.51 [facility] Work Phone: [phone] Basophil percentageon 2021 Basophils/100 WBC (Bld) 0.3 % 0-1 [facility] Work Phone: [phone] Bilirubin [Mass/Vol] 0.60 mg/dL 0.20-1.00 [facility] Work Phone: [phone] Comment on above: For patients on eltr ombopag therapy, use of Dimension [place] TBIL is not recommended. Chloride [Moles/Vol] 103 mmol/L 98-107 [facility] Work Phone: [phone] Cholesterol [Mass/Vol] 95 mg/dL <200 [facility] Work Phone: [phone] Comment on above: <200 mg/dL Desirable 200-240 mg/dL Borderline >240 mg/dL High Risk Eosinophils/100 WBC (Bld) 2.9 % 0-5 [facility] Work Phone: [phone] Glucose [Mass/Vol] 202 mg/dL 74-106 [facility] Work Phone: [phone] Comment on above: Glucose result great er than or equal to 200 mg/dLsuggests DIABETES MELLITUS per A.D.A. criteria. Neutrophils (Bld) [#/Vol] 4.5 10*3/uL 2.0-7.7 [facility] Work Phone: Neutrophils/100 WBC (Bld) 58.6 % 47-70 [facility] Work Phone: [phone] Potassium [Moles/Vol] 4.3 mmol/L 3.5-5.1 [facility] Work Phone: [phone] Protein [Mass/Vol] 6.6 g/dL 6.4-8.2 [facility] Work Phone: [phone] Sodium [Moles/Vol] 139 mmol/L 136-145 [facility] Work Phone: [phone] Triglyceride [Mass/Vol] 165 mg/dL <199 [facility] Work Phone: [phone] Comment on above: The drugs N-Acetylcy steine and Metamizole may falsely depress this assay.Serum Triglycerides Reference Interval Normal <150 mg/dL Borderline high 150 - 199 mg/dL High 200 - 499 mg/dL Very High > or = 500 mg/dL WBC (Bld) [#/Vol] 7.6 10*3/uL 4.4-11.0 [facility] Work Phone: [phone] Blood erythrocytes count (nu mber/volume)on 07-16-2022 RBC (Bld) [#/Vol] 4.51 10*6/uL 4.6-6.2 [facility] Work Phone: [phone] Blood hemoglobin measurement (mass/volume)on 07-16-2022 Hemoglobin (Bld) [Mass/Vol] 13.9 g/dL 13.0-16.5 [facility] Work Phone: Blood lymphocytes/100 leukoc yteson 07-16-2022 Lymphocytes/100 WBC (Bld) 23.9 % 19-41 [facility] Work Phone: [phone] Blood monocytes/100 leukocyt eson 07-16-2022 Monocytes/100 WBC (Bld) 13.4 % 0-10 [facility] Work Phone: Blood platelet mean volumeon 07-16-2022 Platelet mean volume (Bld) [Entitic vol] 10.6 fL 6.2-12.0 [facility] Work Phone: [phone] Determination of erythrocyte mean corpuscular volume (MCV)on 07-16-2022 MCV (RBC) [Entitic vol] 94.0 fL 80-94 [facility] Work Phone: [phone] Hematocrit Auto (Bld) [Volum e fraction]on 07-16-2022 Hematocrit (Bld) [Volume fraction] 42.4 % 40-54 [facility] Work Phone: [phone] Iron measurement (mass/mass) on 07-16-2022 Iron (Unsp spec) [Mass/Mass] 73 ug/dL 65-175 [facility] Work Phone: [phone] Laboratory - Chemistry and C hemistry - challengeon 07-16-2022 ALP [Catalytic activity/Vol] 186 U/L 45-117 [facility] Work Phone: [phone] ALT [Catalytic activity/Vol] 29 U/L 16-61 [facility] Work Phone: [phone] CO2 [Moles/Vol] 29.0 mmol/L 21.0-32.0 [facility] Work Phone: [phone] Globulin (S) [Mass/Vol] 3.4 g/dL 2.2-4.2 [facility] Work Phone: [phone] Urea nitrogen/Creatinine [Mass ratio] 12.4 mg/mg 10-20 [facility] Work Phone: [phone] Laboratory - Hematology and Cell countson 07-16-2022 Erythrocyte distribution width (RBC) [Entitic vol] 45.5 fL 35.1-43.9 [facility] Work Phone: [phone] Erythrocyte distribution width (RBC) [Ratio] 13.4 % 11.6-14.6 [facility] Work Phone: [phone] Immature granulocytes/100 WBC (Bld) 0.900 % 0.0-0.9 [facility] Work Phone: [phone] Comment on above: IG% - Immature Granu locytes (promyelocytes, myelocytes and metamyelocytes) > 1% indicates that a LEFT SHIFT is Present. MCH (RBC) [Entitic mass] 30.8 pg 27.0-32.0 [facility] Work Phone: Nucleated RBC/100 WBC (Bld) [Ratio] 0 % 0-5 [facility] Work Phone: MCHC Auto (RBC) [Mass/Vol]on 07-16-2022 MCHC (RBC) [Mass/Vol] 32.8 g/dL 32-36 [facility] Work Phone: No Panel Informationon 07-16 Estimated GFR (MDRD) Amer 77 mL/min >60 [facility] Work Phone: Comment on above: GFR Calc Estimated GFR (MDRD) Non-Af Amer 63 mL/min >60 [facility] Work Phone: Comment on above: Non- GFR Calc Thyroid Stimulating Hormone (TSH) 2.96 uIU/mL 0.358-3.74 [facility] Work Phone: Total Iron Binding Capacity 329 ug/dL 250-450 [facility] Work Phone: Urine Microalbumin/Creati nine Ratio 262.9 mg/g CRE <30 [facility] Work Phone: Vitamin D 25-Hydroxy 54.5 ng/mL [facility] Work Phone: Comment on above: Vitamin D 25(OH) Sta tus Range Deficiency <20 ng/mL (50nmol/L) Insufficiency 20 - 30 ng/mL (50 - 75 nmol/L) Sufficiency 30 - 100 ng/mL (75 - 250 nmol/L) Toxicity >100 ng/mL (>250 nmol/L) Platelets bldon 07-16-2022 Platelets (Bld) [#/Vol] 214 10*3/uL 150-450 [facility] Work Phone: [phone] Serum or plasma albumin carley urement (mass/volume)on 07-16-2022 Albumin [Mass/Vol] 3.2 g/dL 3.2-5.0 [facility] Work Phone: [phone] Serum or plasma albumin/glob ulin mass ratioon 07-16-2022 Albumin/Globulin [Mass ratio] 0.9 {ratio} 0.9-2.4 [facility] Work Phone: Serum or plasma calcium carley urement (mass/volume)on 07-16-2022 Calcium [Mass/Vol] 8.9 mg/dL 8.5-10.1 [facility] Work Phone: Serum or plasma cholesterol in HDL measurement (mass/volume)on 07-16-2022 Cholesterol in HDL [Mass/Vol] 47 mg/dL >40 [facility] Work Phone: Comment on above: The drugs N-Acetylcy steine and Metamizole may falsely depress this assay. Reference Range HDL <40 mg/dL Low HDL Cholesterol HDL >or= 60 mg/dL High HDL Cholesterol Serum or plasma cholesterol in VLDL measurement (mass/volume)on 07-16-2022 Cholesterol in VLDL [Mass/Vol] 33 mg/dL 5-40 [facility] Work Phone: Serum or plasma creatinine m easurement (mass/volume)on 07-16-2022 Creatinine [Mass/Vol] 1.21 mg/dL 0.70-1.30 [facility] Work Phone: Comment on above: The validity of the calculated GFR & GFRAA in patients over 70 years has not been determined. Clinical correlation is essential. Serum or plasma ferritin maryjo surement (mass/volume)on 07-16-2022 Ferritin [Mass/Vol] 38 ng/mL 26-388 [facility] Work Phone: Serum or plasma iron saturat ion measurement (mass fraction)on 07-16-2022 Iron saturation [Mass fraction] 22.2 % 15.0-55.0 [facility] Work Phone: Serum or plasma low density lipoprotein (LDL) cholesterol measurement (mass/volume)on 07-16-2022 Cholesterol in LDL [Mass/Vol] 15 mg/dL 0-130 [facility] Work Phone: Serum or plasma urea nitroge n measurement (mass/volume)on 07-16-2022 Urea nitrogen [Mass/Vol] 15 mg/dL 7-18 [facility] Work Phone: [phone] Thin prep Papanicolaou smear with manual screeningon 07-16-2022 Thin prep Papanicolaou smear with manual screening 23 U/L 15-37 [facility] Work Phone: [phone] Thin prep Papanicolaou smear with manual screening 7 5-15 [facility] Work Phone: [phone] Thin prep Papanicolaou smear with manual screening 305.0 mg/L NO RANGE EST. [facility] Work Phone: [phone] Urine creatinine measurement (mass/volume)on 07-16-2022 Creatinine (U) [Mass/Vol] 116.00 mg/dL NO RANGE EST. [facility] Work Phone: [phone] Whole blood hemoglobin A1c/t otal hemoglobin ratio (mass fraction)on 07-16-2022 HbA1c (Bld) [Mass fraction] 6.6 % 3.8-5.6 [facility] Work Phone: [phone] Comment on above: Normal < 5.7 % Predi abetic 5.7 - 6.4 % Diabetic >or= 6.5 % Please note range changes. Absolute lymphocyte counton 02-12-2022 Lymphocytes Auto (Unsp spec) [#/Vol] 1.81 10*3/uL 0.83-4.51 [facility] Work Phone: [phone] Basophil percentageon 2021 Basophils/100 WBC (Bld) 0.3 % 0-1 [facility] Work Phone: [phone] Bilirubin [Mass/Vol] 0.50 mg/dL 0.20-1.00 [facility] Work Phone: [phone] Comment on above: For patients on eltr ombopag therapy, use of Dimension [place] TBIL is not recommended. Chloride [Moles/Vol] 102 mmol/L 98-107 [facility] Work Phone: [phone] Cholesterol [Mass/Vol] 99 mg/dL <200 [facility] Work Phone: [phone] Comment on above: <200 mg/dL Desirable 200-240 mg/dL Borderline >240 mg/dL High Risk Eosinophils/100 WBC (Bld) 4.2 % 0-5 [facility] Work Phone: [phone] Glucose [Mass/Vol] 120 mg/dL 74-106 [facility] Work Phone: [phone] Comment on above: Fasting Glucose resu lt from 100 to 125 mg/dL suggests IMPAIRED HOMEOSTASIS per A.D.A. criteria. Neutrophils (Bld) [#/Vol] 4.1 10*3/uL 2.0-7.7 [facility] Work Phone: [phone] Neutrophils/100 WBC (Bld) 56.9 % 47-70 [facility] Work Phone: [phone] Potassium [Moles/Vol] 4.4 mmol/L 3.5-5.1 [facility] Work Phone: [phone] Protein [Mass/Vol] 6.9 g/dL 6.4-8.2 [facility] Work Phone: [phone] Sodium [Moles/Vol] 138 mmol/L 136-145 [facility] Work Phone: [phone] Triglyceride [Mass/Vol] 195 mg/dL [facility] Work Phone: [phone] Comment on above: The drugs N-Acetylcy steine and Metamizole may falsely depress this assay.Serum Triglycerides Reference Interval Normal <150 mg/dL Borderline high 150 - 199 mg/dL High 200 - 499 mg/dL Very High > or = 500 mg/dL WBC (Bld) [#/Vol] 7.2 10*3/uL 4.4-11.0 [facility] Work Phone: [phone] Blood erythrocytes count (nu mber/volume)on 02-12-2022 RBC (Bld) [#/Vol] 4.18 10*6/uL 4.6-6.2 [facility] Work Phone: [phone] Blood hemoglobin measurement (mass/volume)on 02-12-2022 Hemoglobin (Bld) [Mass/Vol] 12.4 g/dL 13.0-16.5 [facility] Work Phone: [phone] Blood lymphocytes/100 leukoc yteson 02-12-2022 Lymphocytes/100 WBC (Bld) 25.2 % 19-41 [facility] Work Phone: Blood monocytes/100 leukocyt eson 02-12-2022 Monocytes/100 WBC (Bld) 13.1 % 0-10 [facility] Work Phone: Blood platelet mean volumeon 02-12-2022 Platelet mean volume (Bld) [Entitic vol] 10.3 fL 6.2-12.0 [facility] Work Phone: Determination of erythrocyte mean corpuscular volume (MCV)on 02-12-2022 MCV (RBC) [Entitic vol] 96.7 fL 80-94 [facility] Work Phone: Hematocrit Auto (Bld) [Volum e fraction]on 02-12-2022 Hematocrit (Bld) [Volume fraction] 40.4 % 40-54 [facility] Work Phone: Iron measurement (mass/mass) on 02-12-2022 Iron (Unsp spec) [Mass/Mass] 47 ug/dL 65-175 [facility] Work Phone: Laboratory - Chemistry and C hemistry - challengeon 02-12-2022 ALP [Catalytic activity/Vol] 173 U/L 45-117 [facility] Work Phone: ALT [Catalytic activity/Vol] 35 U/L 16-61 [facility] Work Phone: [phone] CO2 [Moles/Vol] 31.0 mmol/L 21.0-32.0 [facility] Work Phone: Globulin (S) [Mass/Vol] 3.5 g/dL 2.2-4.2 [facility] Work Phone: [phone] Urea nitrogen/Creatinine [Mass ratio] 19.1 mg/mg 10-20 [facility] Work Phone: [phone] Laboratory - Hematology and Cell countson 02-12-2022 Erythrocyte distribution width (RBC) [Entitic vol] 54.0 fL 35.1-43.9 [facility] Work Phone: Erythrocyte distribution width (RBC) [Ratio] 15.4 % 11.6-14.6 [facility] Work Phone: Immature granulocytes/100 WBC (Bld) 0.300 % 0.0-0.9 [facility] Work Phone: [phone] Comment on above: IG% - Immature Granu locytes (promyelocytes, myelocytes and metamyelocytes) > 1% indicates that a LEFT SHIFT is Present. MCH (RBC) [Entitic mass] 29.7 pg 27.0-32.0 [facility] Work Phone: Nucleated RBC/100 WBC (Bld) [Ratio] 0 % 0-5 [facility] Work Phone: [phone] MCHC Auto (RBC) [Mass/Vol]on 02-12-2022 MCHC (RBC) [Mass/Vol] 30.7 g/dL 32-36 [facility] Work Phone: No Panel Informationon 02-12 Estimated GFR (MDRD) Amer 70 mL/min >60 [facility] Work Phone: [phone] Comment on above: GFR Calc Estimated GFR (MDRD) Non-Af Amer 58 mL/min >60 [facility] Work Phone: Comment on above: Non- GFR Calc Total Iron Binding Capacity 362 ug/dL 250-450 [facility] Work Phone: Urine Microalbumin/Creati nine Ratio 236.5 mg/g CRE <30 [facility] Work Phone: [phone] Vitamin D 25-Hydroxy 52.2 ng/mL [facility] Work Phone: [phone] Comment on above: Vitamin D 25(OH) Sta tus Range Deficiency <20 ng/mL (50nmol/L) Insufficiency 20 - 30 ng/mL (50 - 75 nmol/L) Sufficiency 30 - 100 ng/mL (75 - 250 nmol/L) Toxicity >100 ng/mL (>250 nmol/L) Platelets bldon 02-12-2022 Platelets (Bld) [#/Vol] 280 10*3/uL 150-450 [facility] Work Phone: Serum or plasma albumin carley urement (mass/volume)on 02-12-2022 Albumin [Mass/Vol] 3.4 g/dL 3.2-5.0 [facility] Work Phone: Serum or plasma albumin/glob ulin mass ratioon 02-12-2022 Albumin/Globulin [Mass ratio] 1.0 {ratio} 0.9-2.4 [facility] Work Phone: Serum or plasma calcium carley urement (mass/volume)on 02-12-2022 Calcium [Mass/Vol] 9.8 mg/dL 8.5-10.1 [facility] Work Phone: Serum or plasma cholesterol in HDL measurement (mass/volume)on 02-12-2022 Cholesterol in HDL [Mass/Vol] 40 mg/dL [facility] Work Phone: Comment on above: The drugs N-Acetylcy steine and Metamizole may falsely depress this assay. Reference Range HDL <40 mg/dL Low HDL Cholesterol HDL >or= 60 mg/dL High HDL Cholesterol Serum or plasma cholesterol in VLDL measurement (mass/volume)on 02-12-2022 Cholesterol in VLDL [Mass/Vol] 39 mg/dL 5-40 [facility] Work Phone: Serum or plasma creatinine m easurement (mass/volume)on 02-12-2022 Creatinine [Mass/Vol] 1.31 mg/dL 0.70-1.30 [facility] Work Phone: Comment on above: The validity of the calculated GFR & GFRAA in patients over 70 years has not been determined. Clinical correlation is essential. Serum or plasma ferritin maryjo surement (mass/volume)on 02-12-2022 Ferritin [Mass/Vol] 52 ng/mL 26-388 [facility] Work Phone: Serum or plasma iron saturat ion measurement (mass fraction)on 02-12-2022 Iron saturation [Mass fraction] 13.0 % 15.0-55.0 [facility] Work Phone: Serum or plasma low density lipoprotein (LDL) cholesterol measurement (mass/volume)on 02-12-2022 Cholesterol in LDL [Mass/Vol] 20 mg/dL 0-130 [facility] Work Phone: Serum or plasma urea nitroge n measurement (mass/volume)on 02-12-2022 Urea nitrogen [Mass/Vol] 25 mg/dL 7-18 [facility] Work Phone: Thin prep Papanicolaou smear with manual screeningon 02-12-2022 Thin prep Papanicolaou smear with manual screening 29 U/L 15-37 [facility] Work Phone: Thin prep Papanicolaou smear with manual screening 5 5-15 [facility] Work Phone: Thin prep Papanicolaou smear with manual screening 211.0 mg/L NO RANGE EST. [facility] Work Phone: Urine creatinine measurement (mass/volume)on 02-12-2022 Creatinine (U) [Mass/Vol] 89.20 mg/dL NO RANGE EST. [facility] Work Phone: Whole blood hemoglobin A1c/t otal hemoglobin ratio (mass fraction)on 02-12-2022 HbA1c (Bld) [Mass fraction] 6.1 % 3.8-5.6 [facility] Work Phone: Comment on above: Normal < 5.7 % Predi abetic 5.7 - 6.4 % Diabetic >or= 6.5 % Please note range changes. Glucose Glucometer (BldC) [M ass/Vol]on 01-21-2022 Glucose [Mass/Vol] 158 mg/dL 74-106 [facility] Work Phone: Comment on above: MANAGEMENT OF PATIEN T CARE PER NURSING PROTOCOL Absolute lymphocyte counton 01-06-2022 Lymphocytes Auto (Unsp spec) [#/Vol] 1.93 10*3/uL 0.83-4.51 [facility] Work Phone: Basophil percentageon 2021 Basophils/100 WBC (Bld) 0.3 % 0-1 [facility] Work Phone: Bilirubin [Mass/Vol] 0.60 mg/dL 0.20-1.00 [facility] Work Phone: Comment on above: For patients on eltr ombopag therapy, use of Dimension [place] TBIL is not recommended. Chloride [Moles/Vol] 106 mmol/L 98-107 [facility] Work Phone: Eosinophils/100 WBC (Bld) 3.5 % 0-5 [facility] Work Phone: Glucose [Mass/Vol] 168 mg/dL 74-106 [facility] Work Phone: Comment on above: Fasting Glucose resu lt greater than or equal to 126 mg/dL suggests DIABETES MELLITUS per A.D.A. criteria. Neutrophils (Bld) [#/Vol] 4.0 10*3/uL 2.0-7.7 [facility] Work Phone: Neutrophils/100 WBC (Bld) 56.2 % 47-70 [facility] Work Phone: [phone] Potassium [Moles/Vol] 4.1 mmol/L 3.5-5.1 [facility] Work Phone: Protein [Mass/Vol] 7.2 g/dL 6.4-8.2 [facility] Work Phone: Sodium [Moles/Vol] 140 mmol/L 136-145 [facility] Work Phone: WBC (Bld) [#/Vol] 7.1 10*3/uL 4.4-11.0 [facility] Work Phone: Blood erythrocytes count (nu mber/volume)on 01-06-2022 RBC (Bld) [#/Vol] 4.81 10*6/uL 4.6-6.2 [facility] Work Phone: Blood hemoglobin measurement (mass/volume)on 01-06-2022 Hemoglobin (Bld) [Mass/Vol] 14.0 g/dL 13.0-16.5 [facility] Work Phone: Blood lymphocytes/100 leukoc yteson 01-06-2022 Lymphocytes/100 WBC (Bld) 27.3 % 19-41 [facility] Work Phone: Blood monocytes/100 leukocyt eson 01-06-2022 Monocytes/100 WBC (Bld) 12.3 % 0-10 [facility] Work Phone: Blood platelet mean volumeon 01-06-2022 Platelet mean volume (Bld) [Entitic vol] 10.6 fL 6.2-12.0 [facility] Work Phone: Determination of erythrocyte mean corpuscular volume (MCV)on 01-06-2022 MCV (RBC) [Entitic vol] 92.1 fL 80-94 [facility] Work Phone: Hematocrit Auto (Bld) [Volum e fraction]on 01-06-2022 Hematocrit (Bld) [Volume fraction] 44.3 % 40-54 [facility] Work Phone: Iron measurement (mass/mass) on 01-06-2022 Iron (Unsp spec) [Mass/Mass] 55 ug/dL 65-175 [facility] Work Phone: Laboratory - Chemistry and C hemistry - challengeon 01-06-2022 ALP [Catalytic activity/Vol] 184 U/L 45-117 [facility] Work Phone: ALT [Catalytic activity/Vol] 58 U/L 16-61 [facility] Work Phone: [phone] CO2 [Moles/Vol] 25.0 mmol/L 21.0-32.0 [facility] Work Phone: Globulin (S) [Mass/Vol] 3.7 g/dL 2.2-4.2 [facility] Work Phone: Urea nitrogen/Creatinine [Mass ratio] 18.9 mg/mg 10-20 [facility] Work Phone: Laboratory - Hematology and Cell countson 01-06-2022 Erythrocyte distribution width (RBC) [Entitic vol] 51.3 fL 35.1-43.9 [facility] Work Phone: Erythrocyte distribution width (RBC) [Ratio] 15.1 % 11.6-14.6 [facility] Work Phone: [phone] Immature granulocytes/100 WBC (Bld) 0.400 % 0.0-0.9 [facility] Work Phone: Comment on above: IG% - Immature Granu locytes (promyelocytes, myelocytes and metamyelocytes) > 1% indicates that a LEFT SHIFT is Present. MCH (RBC) [Entitic mass] 29.1 pg 27.0-32.0 [facility] Work Phone: [phone] Nucleated RBC/100 WBC (Bld) [Ratio] 0 % 0-5 [facility] Work Phone: [phone] MCHC Auto (RBC) [Mass/Vol]on 01-06-2022 MCHC (RBC) [Mass/Vol] 31.6 g/dL 32-36 [facility] Work Phone: No Panel Informationon 01-06 Estimated GFR (MDRD) Amer 73 mL/min >60 [facility] Work Phone: [phone] Comment on above: GFR Calc Estimated GFR (MDRD) Non-Af Amer 60 mL/min >60 [facility] Work Phone: Comment on above: Non- GFR Calc Total Iron Binding Capacity 368 ug/dL 250-450 [facility] Work Phone: [phone] Platelets bldon 01-06-2022 Platelets (Bld) [#/Vol] 249 10*3/uL 150-450 [facility] Work Phone: [phone] Serum or plasma albumin carley urement (mass/volume)on 01-06-2022 Albumin [Mass/Vol] 3.5 g/dL 3.2-5.0 [facility] Work Phone: [phone] Serum or plasma albumin/glob ulin mass ratioon 01-06-2022 Albumin/Globulin [Mass ratio] 0.9 {ratio} 0.9-2.4 [facility] Work Phone: Serum or plasma calcium carley urement (mass/volume)on 01-06-2022 Calcium [Mass/Vol] 9.3 mg/dL 8.5-10.1 [facility] Work Phone: Serum or plasma creatinine m easurement (mass/volume)on 01-06-2022 Creatinine [Mass/Vol] 1.27 mg/dL 0.70-1.30 [facility] Work Phone: Comment on above: The validity of the calculated GFR & GFRAA in patients over 70 years has not been determined. Clinical correlation is essential. Serum or plasma ferritin maryjo surement (mass/volume)on 01-06-2022 Ferritin [Mass/Vol] 18 ng/mL 26-388 [facility] Work Phone: Serum or plasma iron saturat ion measurement (mass fraction)on 01-06-2022 Iron saturation [Mass fraction] 14.9 % 15.0-55.0 [facility] Work Phone: Serum or plasma urea nitroge n measurement (mass/volume)on 01-06-2022 Urea nitrogen [Mass/Vol] 24 mg/dL 7-18 [facility] Work Phone: Thin prep Papanicolaou smear with manual screeningon 01-06-2022 Thin prep Papanicolaou smear with manual screening 39 U/L 15-37 [facility] Work Phone: Thin prep Papanicolaou smear with manual screening 9 5-15 [facility] Work Phone: Clinical Summary: Oumou max 12-16-2021 [facility] OP Visit Invalid Interpretation Code [facility] Work Phone: Office Visit: New/Est - 1st visit with physician, Rm: 812-16-2021 NEGATED: Highlighted rowxray history of the right shoulder on 09/22/2021 at [facility] Invalid Interpretation Code [facility] Work Phone: Basophil percentageon 2021 WBC (Bld) [#/Vol] 6.5 10*3/uL 4.4-11.0 [facility] Work Phone: Blood erythrocytes count (nu mber/volume)on 12-11-2021 RBC (Bld) [#/Vol] 4.63 10*6/uL 4.6-6.2 [facility] Work Phone: Blood hemoglobin measurement (mass/volume)on 12-11-2021 Hemoglobin (Bld) [Mass/Vol] 13.3 g/dL 13.0-16.5 [facility] Work Phone: Blood platelet mean volumeon 12-11-2021 Platelet mean volume (Bld) [Entitic vol] 10.9 fL 6.2-12.0 [facility] Work Phone: Determination of erythrocyte mean corpuscular volume (MCV)on 12-11-2021 MCV (RBC) [Entitic vol] 89.8 fL 80-94 [facility] Work Phone: Erythrocyte sedimentation ra love 12-11-2021 ESR (Bld) [Velocity] 8 mm/h 0-20 [facility] Work Phone: Hematocrit Auto (Bld) [Volum e fraction]on 12-11-2021 Hematocrit (Bld) [Volume fraction] 41.6 % 40-54 [facility] Work Phone: Laboratory - Hematology and Cell countson 12-11-2021 Erythrocyte distribution width (RBC) [Entitic vol] 48.6 fL 35.1-43.9 [facility] Work Phone: [phone] Erythrocyte distribution width (RBC) [Ratio] 14.7 % 11.6-14.6 [facility] Work Phone: MCH (RBC) [Entitic mass] 28.7 pg 27.0-32.0 [facility] Work Phone: MCHC Auto (RBC) [Mass/Vol]on 12-11-2021 MCHC (RBC) [Mass/Vol] 32.0 g/dL 32-36 [facility] Work Phone: Platelets bldon 12-11-2021 Platelets (Bld) [#/Vol] 242 10*3/uL 150-450 [facility] Work Phone: Serum or plasma C reactive p rotein measurement (mass/volume)on 12-11-2021 CRP [Mass/Vol] mg/L 0.0-3.0 [facility] Work Phone: Comment on above: C-Reactive Protein ( CRP) provides useful information for thediagnosis, therapy and monitoring of inflammatory processesand associated diseases. For the evaluation of Relative Riskfor Cardiovascular Disease, a High Sensitivity CRP (HSCRP)should be ordered. Whole blood hemoglobin A1c/t otal hemoglobin ratio (mass fraction)on 12-11-2021 HbA1c (Bld) [Mass fraction] 6.3 % 3.8-5.6 [facility] Work Phone: Comment on above: Normal < 5.7 % Predi abetic 5.7 - 6.4 % Diabetic >or= 6.5 % Please note range changes. Clinical Summary: Oumou max 11-28-2021 [facility] OP Visit Invalid Interpretation Code [facility] Work Phone: Office Visit: Consult, Rm: 1 on 11-28-2021 NEGATED: Highlighted rowTobacco smoking status Tobacco smoking status Invalid Interpretation Code [facility] Work Phone: NEGATED: Highlighted rowxray history of the Right Shoulder on 05/01/2021 at [facility], of the Right Shoulder on 09/22/2021 at [facility] Invalid Interpretation Code [facility] Work Phone: Absolute lymphocyte counton 11-07-2021 Lymphocytes Auto (Unsp spec) [#/Vol] 1.56 10*3/uL 0.83-4.51 [facility] Work Phone: Basophil percentageon 2021 Basophils/100 WBC (Bld) 0.3 % 0-1 [facility] Work Phone: Bilirubin [Mass/Vol] 0.60 mg/dL 0.20-1.00 [facility] Work Phone: Comment on above: For patients on eltr ombopag therapy, use of Dimension [place] TBIL is not recommended. Chloride [Moles/Vol] 108 mmol/L 98-107 [facility] Work Phone: Cholesterol [Mass/Vol] 90 mg/dL <200 [facility] Work Phone: [phone] Comment on above: <200 mg/dL Desirable 200-240 mg/dL Borderline >240 mg/dL High Risk Eosinophils/100 WBC (Bld) 3.1 % 0-5 [facility] Work Phone: Glucose [Mass/Vol] 138 mg/dL 74-106 [facility] Work Phone: Comment on above: Fasting Glucose resu lt greater than or equal to 126 mg/dL suggests DIABETES MELLITUS per A.D.A. criteria. Neutrophils (Bld) [#/Vol] 4.8 10*3/uL 2.0-7.7 [facility] Work Phone: Neutrophils/100 WBC (Bld) 65.2 % 47-70 [facility] Work Phone: Potassium [Moles/Vol] 4.4 mmol/L 3.5-5.1 [facility] Work Phone: Protein [Mass/Vol] 7.0 g/dL 6.4-8.2 [facility] Work Phone: [phone] Sodium [Moles/Vol] 141 mmol/L 136-145 [facility] Work Phone: Triglyceride [Mass/Vol] 161 mg/dL [facility] Work Phone: Comment on above: The drugs N-Acetylcy steine and Metamizole may falsely depress this assay.Serum Triglycerides Reference Interval Normal <150 mg/dL Borderline high 150 - 199 mg/dL High 200 - 499 mg/dL Very High > or = 500 mg/dL WBC (Bld) [#/Vol] 7.4 10*3/uL 4.4-11.0 [facility] Work Phone: Blood erythrocytes count (nu mber/volume)on 11-07-2021 RBC (Bld) [#/Vol] 4.47 10*6/uL 4.6-6.2 [facility] Blood hemoglobin measurement (mass/volume)on 11-07-2021 Hemoglobin (Bld) [Mass/Vol] 13.0 g/dL 13.0-16.5 [facility] Work Phone: [phone] Blood lymphocytes/100 leukoc yteson 11-07-2021 Lymphocytes/100 WBC (Bld) 21.1 % 19-41 [facility] Work Phone: [phone] Blood monocytes/100 leukocyt eson 11-07-2021 Monocytes/100 WBC (Bld) 10.0 % 0-10 [facility] Work Phone: Blood platelet mean volumeon 11-07-2021 Platelet mean volume (Bld) [Entitic vol] 11.4 fL 6.2-12.0 [facility] Work Phone: Determination of erythrocyte mean corpuscular volume (MCV)on 11-07-2021 MCV (RBC) [Entitic vol] 92.4 fL 80-94 [facility] Work Phone: Hematocrit Auto (Bld) [Volum e fraction]on 11-07-2021 Hematocrit (Bld) [Volume fraction] 41.3 % 40-54 [facility] Work Phone: [phone] Iron measurement (mass/mass) on 11-07-2021 Iron (Unsp spec) [Mass/Mass] 49 ug/dL 65-175 [facility] Work Phone: [phone] Laboratory - Chemistry and C hemistry - challengeon 11-07-2021 ALP [Catalytic activity/Vol] 154 U/L 45-117 [facility] Work Phone: ALT [Catalytic activity/Vol] 34 U/L 16-61 [facility] Work Phone: [phone] CO2 [Moles/Vol] 30.0 mmol/L 21.0-32.0 [facility] Work Phone: Globulin (S) [Mass/Vol] 3.7 g/dL 2.2-4.2 [facility] Work Phone: Urea nitrogen/Creatinine [Mass ratio] 20.4 mg/mg 10-20 [facility] Work Phone: Laboratory - Hematology and Cell countson 11-07-2021 Erythrocyte distribution width (RBC) [Entitic vol] 54.9 fL 35.1-43.9 [facility] Work Phone: [phone] Erythrocyte distribution width (RBC) [Ratio] 16.3 % 11.6-14.6 [facility] Work Phone: [phone] Immature granulocytes/100 WBC (Bld) 0.300 % 0.0-0.9 [facility] Work Phone: Comment on above: IG% - Immature Granu locytes (promyelocytes, myelocytes and metamyelocytes) > 1% indicates that a LEFT SHIFT is Present. MCH (RBC) [Entitic mass] 29.1 pg 27.0-32.0 [facility] Work Phone: Nucleated RBC/100 WBC (Bld) [Ratio] 0 % 0-5 [facility] Work Phone: [phone] MCHC Auto (RBC) [Mass/Vol]on 11-07-2021 MCHC (RBC) [Mass/Vol] 31.5 g/dL 32-36 [facility] Work Phone: No Panel Informationon 11-07 Estimated GFR (MDRD) Amer 83 mL/min >60 [facility] Work Phone: Comment on above: GFR Calc Estimated GFR (MDRD) Non-Af Amer 69 mL/min >60 [facility] Work Phone: Comment on above: Non- GFR Calc Total Iron Binding Capacity 340 ug/dL 250-450 [facility] Work Phone: Platelets bldon 11-07-2021 Platelets (Bld) [#/Vol] 258 10*3/uL 150-450 [facility] Work Phone: Serum or plasma albumin carley urement (mass/volume)on 11-07-2021 Albumin [Mass/Vol] 3.3 g/dL 3.2-5.0 [facility] Work Phone: Serum or plasma albumin/glob ulin mass ratioon 11-07-2021 Albumin/Globulin [Mass ratio] 0.9 {ratio} 0.9-2.4 [facility] Work Phone: Serum or plasma calcium carley urement (mass/volume)on 11-07-2021 Calcium [Mass/Vol] 9.7 mg/dL 8.5-10.1 [facility] Work Phone: Serum or plasma cholesterol in HDL measurement (mass/volume)on 11-07-2021 Cholesterol in HDL [Mass/Vol] 42 mg/dL [facility] Work Phone: Comment on above: The drugs N-Acetylcy steine and Metamizole may falsely depress this assay. Reference Range HDL <40 mg/dL Low HDL Cholesterol HDL >or= 60 mg/dL High HDL Cholesterol Serum or plasma cholesterol in VLDL measurement (mass/volume)on 11-07-2021 Cholesterol in VLDL [Mass/Vol] 32 mg/dL 5-40 [facility] Work Phone: Serum or plasma creatinine m easurement (mass/volume)on 11-07-2021 Creatinine [Mass/Vol] 1.13 mg/dL 0.70-1.30 [facility] Work Phone: Comment on above: The validity of the calculated GFR & GFRAA in patients over 70 years has not been determined. Clinical correlation is essential. Serum or plasma ferritin maryjo surement (mass/volume)on 11-07-2021 Ferritin [Mass/Vol] 21 ng/mL 26-388 [facility] Work Phone: Serum or plasma iron saturat ion measurement (mass fraction)on 11-07-2021 Iron saturation [Mass fraction] 14.4 % 15.0-55.0 [facility] Work Phone: Serum or plasma low density lipoprotein (LDL) cholesterol measurement (mass/volume)on 11-07-2021 Cholesterol in LDL [Mass/Vol] 16 mg/dL 0-130 [facility] Work Phone: [phone] Serum or plasma urea nitroge n measurement (mass/volume)on 11-07-2021 Urea nitrogen [Mass/Vol] 23 mg/dL 7-18 [facility] Work Phone: [phone] Thin prep Papanicolaou smear with manual screeningon 11-07-2021 Thin prep Papanicolaou smear with manual screening 27 U/L 15-37 [facility] Work Phone: [phone] Thin prep Papanicolaou smear with manual screening 3 5-15 [facility] Work Phone: [phone] Whole blood hemoglobin A1c/t otal hemoglobin ratio (mass fraction)on 11-07-2021 HbA1c (Bld) [Mass fraction] 6.0 % 3.8-5.6 [facility] Work Phone: Comment on above: Normal < 5.7 % Predi abetic 5.7 - 6.4 % Diabetic >or= 6.5 % Please note range changes. Basophil percentageon 2021 Bilirubin [Mass/Vol] 0.60 mg/dL 0.20-1.00 [facility] Work Phone: Comment on above: For patients on eltr ombopag therapy, use of Dimension [place] TBIL is not recommended. Chloride [Moles/Vol] 104 mmol/L 98-107 [facility] Work Phone: [phone] Glucose [Mass/Vol] 115 mg/dL 74-106 [facility] Work Phone: [phone] Comment on above: Fasting Glucose resu lt from 100 to 125 mg/dL suggests IMPAIRED HOMEOSTASIS per A.D.A. criteria. Potassium [Moles/Vol] 4.1 mmol/L 3.5-5.1 [facility] Work Phone: [phone] Protein [Mass/Vol] 7.2 g/dL 6.4-8.2 [facility] Work Phone: [phone] Sodium [Moles/Vol] 138 mmol/L 136-145 [facility] Work Phone: Laboratory - Chemistry and C hemistry - challengeon 09-24-2021 ALP [Catalytic activity/Vol] 140 U/L 45-117 [facility] Work Phone: ALT [Catalytic activity/Vol] 33 U/L 16-61 [facility] Work Phone: CK [Catalytic activity/Vol] 41 U/L 39-308 [facility] Work Phone: CO2 [Moles/Vol] 27.0 mmol/L 21.0-32.0 [facility] Work Phone: Globulin (S) [Mass/Vol] 3.8 g/dL 2.2-4.2 [facility] Work Phone: Magnesium [Mass/Vol] 1.7 mg/dL 1.6-2.6 [facility] Work Phone: Urea nitrogen/Creatinine [Mass ratio] 19.8 mg/mg 10-20 [facility] Work Phone: No Panel Informationon 09-24 Estimated GFR (MDRD) Amer 73 mL/min >60 [facility] Work Phone: Comment on above: GFR Calc Estimated GFR (MDRD) Non-Af Amer 61 mL/min >60 [facility] Work Phone: Comment on above: Non- GFR Calc Serum or plasma albumin carley urement (mass/volume)on 09-24-2021 Albumin [Mass/Vol] 3.4 g/dL 3.2-5.0 [facility] Work Phone: Serum or plasma albumin/glob ulin mass ratioon 09-24-2021 Albumin/Globulin [Mass ratio] 0.9 {ratio} 0.9-2.4 [facility] Work Phone: Serum or plasma calcium carley urement (mass/volume)on 09-24-2021 Calcium [Mass/Vol] 9.3 mg/dL 8.5-10.1 [facility] Work Phone: Serum or plasma creatinine m easurement (mass/volume)on 09-24-2021 Creatinine [Mass/Vol] 1.26 mg/dL 0.70-1.30 [facility] Work Phone: Comment on above: The validity of the calculated GFR & GFRAA in patients over 70 years has not been determined. Clinical correlation is essential. Serum or plasma ferritin maryjo surement (mass/volume)on 09-24-2021 Ferritin [Mass/Vol] 15 ng/mL 26-388 [facility] Work Phone: [phone] Serum or plasma urea nitroge n measurement (mass/volume)on 09-24-2021 Urea nitrogen [Mass/Vol] 25 mg/dL 7-18 [facility] Work Phone: [phone] Thin prep Papanicolaou smear with manual screeningon 09-24-2021 Thin prep Papanicolaou smear with manual screening 22 U/L 15-37 [facility] Work Phone: [phone] Thin prep Papanicolaou smear with manual screening 7 5-15 [facility] Work Phone: [phone] Absolute lymphocyte counton 09-04-2021 Lymphocytes Auto (Unsp spec) [#/Vol] 1.01 10*3/uL 0.83-4.51 [facility] Work Phone: [phone] Basophil percentageon 2020 Eosinophils/100 WBC (Bld) 0.4 % 0-5 [facility] Work Phone: [phone] Neutrophils (Bld) [#/Vol] 7.0 10*3/uL 2.0-7.7 [facility] Work Phone: [phone] WBC (Bld) [#/Vol] 9.2 10*3/uL 4.4-11.0 [facility] Work Phone: [phone] Blood erythrocytes count (nu mber/volume)on 09-04-2021 RBC (Bld) [#/Vol] 3.52 10*6/uL 4.6-6.2 [facility] Work Phone: [phone] Blood hemoglobin measurement (mass/volume)on 09-04-2021 Hemoglobin (Bld) [Mass/Vol] 9.9 g/dL 13.0-16.5 [facility] Work Phone: [phone] Blood lymphocytes/100 leukoc yteson 09-04-2021 Lymphocytes/100 WBC (Bld) 10.9 % 19-41 [facility] Work Phone: [phone] monocytes/100 leukocyt eson 09-04-2021 Monocytes/100 WBC (Bld) 12.0 % 0-10 [facility] Work Phone: [phone] Blood platelet mean volumeon 09-04-2021 Platelet mean volume (Bld) [Entitic vol] 10.4 fL 6.2-12.0 [facility] Work Phone: [phone] Determination of erythrocyte mean corpuscular volume (MCV)on 09-04-2021 MCV (RBC) [Entitic vol] 88.9 fL 80-94 [facility] Work Phone: [phone] Glucose Glucometer (dC) [M ass/Vol]on 09-04-2021 Glucose [Mass/Vol] 177 mg/dL 70-110 [facility] Work Phone: [phone] Comment on above: MANAGEMENT OF PATIEN T CARE PER NURSING PROTOCOL Hematocrit Auto (Bld) [Volum e fraction]on 09-04-2021 Hematocrit (Bld) [Volume fraction] 31.3 % 40-54 [facility] Work Phone: [phone] Laboratory - Hematology and Cell countson 09-04-2021 Basophils/100 WBC (Unsp spec) 0.1 % 0-1 [facility] Work Phone: [phone] Erythrocyte distribution width (RBC) [Entitic vol] 45.4 fL 35.1-43.9 [facility] Work Phone: [phone] Erythrocyte distribution width (RBC) [Ratio] 14.2 % 11.6-14.6 [facility] Work Phone: [phone] Immature granulocytes/100 WBC (Bld) 0.500 % 0.0-0.9 [facility] Work Phone: Comment on above: IG% - Immature Granu locytes (promyelocytes, myelocytes and metamyelocytes) > 1% indicates that a LEFT SHIFT is Present. MCH (RBC) [Entitic mass] 28.1 pg 27.0-32.0 [facility] Work Phone: Neutrophils/100 WBC (Bld) 76.1 % 47-70 [facility] Work Phone: [phone] Nucleated RBC/100 WBC (Bld) [Ratio] 0 % 0-5 [facility] Work Phone: [phone] MCHC Auto (RBC) [Mass/Vol]on 09-04-2021 MCHC (RBC) [Mass/Vol] 31.6 g/dL 32-36 [facility] Work Phone: [phone] Platelets bldon 09-04-2021 Platelets (Bld) [#/Vol] 178 10*3/uL 150-450 [facility] Work Phone: Basophil percentageon 2020 Chloride [Moles/Vol] 115 mmol/L 98-107 [facility] Work Phone: [phone] Glucose [Mass/Vol] 161 mg/dL 74-106 [facility] Work Phone: [phone] Comment on above: Fasting Glucose resu lt greater than or equal to 126 mg/dL suggests DIABETES MELLITUS per A.D.A. criteria.Please note revised GLUCOSE reference range effective 2017. Potassium [Moles/Vol] 3.8 mmol/L 3.5-5.1 [facility] Work Phone: [phone] Sodium [Moles/Vol] 142 mmol/L 136-145 [facility] Work Phone: [phone] Laboratory - Chemistry and C hemistry - challengeon 09-03-2021 CO2 [Moles/Vol] 19.0 mmol/L 21.0-32.0 [facility] Work Phone: [phone] Urea nitrogen/Creatinine [Mass ratio] 13.6 mg/mg 10-20 [facility] Work Phone: [phone] No Panel Informationon 09-03 Estimated Creatinine Clearance Calc 58.77 ml/min [facility] Work Phone: Estimated GFR (MDRD) Amer 79 mL/min >60 [facility] Work Phone: Comment on above: GFR Calc Estimated GFR (MDRD) Non-Af Amer 65 mL/min >60 [facility] Work Phone: Comment on above: Non- GFR Calc Serum or plasma calcium carley urement (mass/volume)on 09-03-2021 Calcium [Mass/Vol] 8.2 mg/dL 8.5-10.1 [facility] Work Phone: Serum or plasma creatinine m easurement (mass/volume)on 09-03-2021 Creatinine [Mass/Vol] 1.18 mg/dL 0.70-1.30 [facility] Work Phone: Comment on above: The validity of the calculated GFR & GFRAA in patients over 70 years has not been determined. Clinical correlation is essential. Serum or plasma urea nitroge n measurement (mass/volume)on 09-03-2021 Urea nitrogen [Mass/Vol] 16 mg/dL 7-18 [facility] Work Phone: Thin prep Papanicolaou smear with manual screeningon 09-03-2021 Thin prep Papanicolaou smear with manual screening 8 5-15 [facility] Work Phone: Basophil percentageon 2020 Bilirubin [Mass/Vol] 0.70 mg/dL 0.20-1.00 [facility] Work Phone: Comment on above: For patients on eltr ombopag therapy, use of Dimension [place] TBIL is not recommended. Protein [Mass/Vol] 6.9 g/dL 6.4-8.2 [facility] Work Phone: Laboratory - Chemistry and C hemistry - challengeon 09-02-2021 ALP [Catalytic activity/Vol] 148 U/L 45-117 [facility] Work Phone: ALT [Catalytic activity/Vol] 26 U/L 16-61 [facility] Work Phone: Globulin (S) [Mass/Vol] 3.9 g/dL 2.2-4.2 [facility] Work Phone: Lipase [Catalytic activity/Vol] 51 U/L 73-393 [facility] Work Phone: Review by pathologiston 08-07 Pathologist review Noah (Unsp spec) [Interp] Reviewed [facility] Work Phone: Comment on above: Previous reported re sult: Nata arnaldo Edited by: [email or web address] on 09/03/21:1010Neutrophilic leukocytosis.Clinical correlation necessary.Dimitrios Ashraf M.D. 09/03/21 AMENDED REPORT 09/03/21 1010 PATH REV previously reported as: January arnaldo Serum or plasma albumin carley urement (mass/volume)on 09-02-2021 Albumin [Mass/Vol] 3.0 g/dL 3.2-5.0 [facility] Work Phone: Serum or plasma albumin/glob ulin mass ratioon 09-02-2021 Albumin/Globulin [Mass ratio] 0.8 {ratio} 0.9-2.4 [facility] Work Phone: Thin prep Papanicolaou smear with manual screeningon 09-02-2021 Thin prep Papanicolaou smear with manual screening 20 U/L 15-37 [facility] Work Phone: Whole blood hemoglobin A1c/t otal hemoglobin ratio (mass fraction)on 09-02-2021 HbA1c (Bld) [Mass fraction] 6.1 % 3.8-5.6 [facility] Work Phone: Comment on above: Normal < 5.7 % Predi abetic 5.7 - 6.4 % Diabetic >or= 6.5 % Please note range changes. Op Noteon 12-25-2019 Op Note PATIENT: MONIQUE CALLAWAY J ADMISSION DATE: 12/15/2019 SURGERY DATE: 12/15/2019 DATE OF : 1955 AGE: 64 ADMITTING PHYSICIAN: Colton Marroquin MD ATTENDING PHYSICIAN: Colton Marroquin MD DICTATING PHYSICIAN: Colton Marroquin MD OPERATIVE RECORD Procedure: 1. CORONARY REVASCULARIZATION X3: LEFT INTERNAL MAMMARY ARTERY GRAFTED TO LEFT ANTERIOR DESCENDING CORONARY ARTERY, REVERSE SAPHENOUS VEIN GRAFT GRAFTED TO FIRST DIAGONAL CORONARY ARTERY, REVERSE SAPHENOUS VEIN GRAFT GRAFTED TO SECOND DIAGONAL CORONARY ARTERY. 2. ENDOSCOPIC VEIN HARVESTING FROM THE LEFT LOWER EXTREMITY. 3. INTRAOPERATIVE TRANSESOPHAGEAL ECHOCARDIOGRAPHY. Preoperative Diagnosis: Multivessel coronary artery disease. Postoperative Diagnosis: Multivessel coronary artery disease. Anesthesia: General endotracheal. Assistants: 1. Dasha Solorio. 2. Mau Deng Clinical History: The patient is a 64-year-old gentleman referred for multivessel coronary artery disease. He had an abnormal exercise myocardial perfusion test and subsequent cardiac catheterization revealed a mid LAD lesion of 80% a first diagonal lesion and second diagonal lesions of 70-80%. The patient had reported daily chest pain. The risks, benefits, and alternatives to surgery were discussed in detail with the patient and he agreed to proceed. Description of Procedure: The patient was taken to the operative suite under general endotracheal anesthesia, monitor lines were placed. Transesophageal echocardiography was performed. No valvular abnormalities were seen. The dictation will follow separately. After the patient was positioned, prepped and draped and appropriate time-out, the left lower extremity was incised. Greater saphenous vein was procured from the upper calf to the proximal thigh. The vein was prepared in the usual fashion and incision was closed in usual manner. Simultaneously, median sternotomy was employed and left internal mammary artery was harvested and skeletonized in pedicled fashion. Heparin was administered to obtain ACT of greater than 400 seconds. Pursestrings were placed and cannulation ensued and a 6.5 mm cannula was placed in the ascending aorta, cardioplegia needle was placed in the proximal ascending aorta, venous cannula was placed via the right atrium into the inferior vena cava. Cardiopulmonary bypass was established, aorta was cross clamped and cardioplegia was administered. Greater than 1 L of cardioplegia was initially administered and intermittent aliquots of cold blood were given between each distal anastomosis. All distal anastomoses were performed first in similar fashion as follows: The target coronary artery was identified and arteriotomy was performed. The bypass conduit was grafted end-to-side with a running 7-0 Prolene suture. Each anastomosis was probed prior to completion with a 1.5 mm probe and then infused with saline at the conclusion to assure adequate flow. After we weaned from cardiopulmonary bypass, Doppler interrogation of all bypass grafts was also done to assure good flow. The first bypass to be performed was reverse saphenous vein graft grafted to the second diagonal coronary artery. This anastomosis proceeded smoothly and there was good flow. Next, a reverse saphenous vein graft was grafted to the first diagonal coronary artery. This anastomosis proceeded smoothly and was good flow. Last, left internal mammary artery was grafted to the distal mid LAD. This anastomosis proceeded smoothly and there was good flow as well. glass processing worker was administered and cross-clamp was removed. A partial occluding clamp was placed on the ascending aorta and the 2 vein grafts were grafted end-to-side with the ascending aorta taking care to avoid twisting and kinks. Once this was completed, we made preparations to wean and separate from cardiopulmonary bypass. We weaned and from the cardiopulmonary bypass and protamine was administered. Decannulation was ensued and all pursestrings were secured. Pacing wires were placed. Chest tubes were inserted. After hemostasis was achieved, we proceeded with closure. The sternum was reapproximated with [id number] wires. The overlying tissues were closed in multiple layers. The patient was transferred to the heart and lung unit in serious, but stable condition. Diskriter Job ID: [id number] Colton Marroquin MD DOD:12/25/2019 02:20 P EE/dsk DOT:12/25/2019 04:10 P Job Number: [id number] Document Number: [id number] cc: Colton Marroquin MD [facility] [address] [address] Normal [facility] Basic Metabolic Panelon 04- Anion gap [Moles/Vol] 6 Normal [facility] Comment on above: Performed By: #### B GLU #### [address] [address] Calcium [Mass/Vol] 8.5 mg/dL Normal 8.4-10.4 [facility] Comment on above: Performed By: #### B GLU #### [address] CO2 [Moles/Vol] 26 mmol/L Normal 22-30 [facility] Comment on above: Performed By: #### B GLU #### [address] [place] [address] [address] [place], [place] Creatinine [Mass/Vol] 0.90 mg/dL Normal 0.52-1.25 [facility] Comment on above: Performed By: #### B GLU #### [address] [address] [address] [place], [place] GFR/1.73 sq M predicted among blacks MDRD (S/P/Bld) [Vol rate/Area] mL/min/{1.73_m2} Normal >60 [facility] Comment on above: Performed By: #### B GLU #### [address] [place] [address] [address] [place], [place] GFR/1.73 sq M predicted among non-blacks MDRD (S/P/Bld) [Vol rate/Area] mL/min/{1.73_m2} Normal >60 [facility] Comment on above: Result Comment: Sour ce- MDRD equation with creatinine calibration to IDMS(NKDEP) eGFR not recommended for drug dose adjustment Performed By: #### B GLU #### [address] [place] [address] [address] [place], [place] Glucose [Mass/Vol] 122 mg/dL High 70-100 [facility] Comment on above: Performed By: #### B GLU #### [address] [place] [address] [address] [place], [place] Urea nitrogen [Mass/Vol] 20 mg/dL Normal 7-20 [facility] Comment on above: Performed By: #### B GLU #### [address] [place] [address] [address] [place], [place] Chloride [Moles/Vol] 107 mmol/L Normal 98-107 [facility] Comment on above: Performed By: #### B GLU #### [address] [address] [place], [place] Potassium [Moles/Vol] 3.2 mmol/L Low 3.5-5.1 [facility] Comment on above: Performed By: #### B GLU #### [facility] [address] [place] [address] Sodium [Moles/Vol] 138 mmol/L Normal 135-145 [facility] Comment on above: Performed By: #### B GLU #### [facility] [address] [place] [address] Anion gap [Moles/Vol] 6 mmol/L [place] Comment on above: Test Performed by [facility], [facility] [place] [address] Calcium [Mass/Vol] 8.5 mg/dL 8.4 - 10. 4 mg/dL [place] Comment on above: Test Performed by [facility], [facility] [place] [address] Chloride [Moles/Vol] 107 mmol/L 98 - 107 mmol/L [place] Comment on above: Test Performed by [facility], [facility] [address] CO2 [Moles/Vol] 26 mmol/L 22 - 30 mmol/L [place] Comment on above: Test Performed by [facility], [facility] [address] Creatinine [Mass/Vol] 0.9 mg/dL 0.52 - 1.25 mg/dL [place] Comment on above: Test Performed by [facility], [facility] [address] EGFR IF NonAfrican Faroese >60.0 >60 mL/min [place] Comment on above: Test Performed by [facility], [facility] [address] Source- MDRD equation with creatinine calibration to IDMS(NKDEP) eGFR not recommended for drug dose adjustment GFR/1.73 sq M predicted among blacks MDRD (S/P/Bld) [Vol rate/Area] mL/min/{1.73_m2} >60 mL/min [place] Comment on above: Test Performed by [facility], [facility] [place] [address] Glucose [Mass/Vol] 122 mg/dL High 70 - 100 mg/dL [place] Comment on above: Test Performed by [facility], [facility] [place] [address] Interpretation and review of laboratory results Abnormal [place] Potassium [Moles/Vol] 3.2 mmol/L Low 3.5 - 5.1 mmol/L [place] Comment on above: Test Performed by [facility], [facility] [place] [address] Sodium [Moles/Vol] 138 mmol/L 135 - 145 mmol/L [place] Urea nitrogen [Mass/Vol] 20 mg/dL 7 - 20 mg/dL [place] Comment on above: Test Performed by [facility], [place] [address] Test Performed by [facility], [address] [place] [id number] [place], [place] CBCon 12-20-2019 Erythrocyte distribution width (RBC) [Ratio] 15.1 % High 11.5 - 14.5 % [place] Comment on above: Test Performed by [facility], [place] [address] Hematocrit (Bld) [Volume fraction] 27.2 % Low 40 - 52 % [place] Comment on above: Test Performed by [facility], [place] [address] Hemoglobin (Bld) [Mass/Vol] 9.1 g/dL Low 13 - 18 g/dL [place] Comment on above: Test Performed by [facility], [facility] [address] Interpretation and review of laboratory results Abnormal [place] MCH (RBC) [Entitic mass] 31.6 pg 26 - 34 pg [place] Comment on above: Test Performed by [facility], [facility] [address] MCHC (RBC) [Mass/Vol] 33.5 % 32 - 36 % [place] Comment on above: Test Performed by [facility], [facility] [address] MCV (RBC) [Entitic vol] 94.4 fL 80 - 98 fL [place] Comment on above: Test Performed by [facility], [address] [place] [address] Platelet mean volume (Bld) [Entitic vol] 7.6 fL 7.4 - 10.4 fL [place] Comment on above: Test Performed by [facility], [address], [place] [address] Platelets (Bld) [#/Vol] 244 10*3/uL 140 - 440 10*3/uL [place] Comment on above: Test Performed by [facility], [address] [place] [address] RBC (Bld) [#/Vol] 2.89 10*6/uL Low 4.4 - 5.9 10*6/uL [place] Comment on above: Test Performed by [facility], [facility] [place] [address] WBC (Bld) [#/Vol] 7.9 10*3/uL 3.6 - 10.7 10*3/uL [place] Test Performed by [facility] Special Surgery, [facility] [place] [place] [address] [place], [place] CR Chest Portableon 12-20-19 20 CR Chest Portable Patient Name: DOUGLAS SIMON Jr Diagnostic Radiology Exam Date/Time 12/20/2019 06:48:05 EDT Exam CR Chest Portable Ordering Physician COLTON MARROQUIN Accession Number [id number] CPT4 Codes 20680 () Reason For Exam SOB Report HISTORY: Postop CABG Portable AP chest at 0528 hours is unchanged since last exam 24 hours ago Report Dictated on Workstation: [id number] Final Dictated: 12/20/2019 5:43 am Dictating Physician: MD ENNIS WILLIAM Signed Date and Time: 12/20/2019 5:44 am Signed by: MD ENNIS WILLIAM Transcribed Date and Time: 12/20/2019 5:43 Normal [facility] Glucose,Bedsideon 12-20-2019 Glucose [Mass/Vol] 136 mg/dL High 70-100 [facility] Comment on above: Result Comment: Test performed by glucose meter. Results may be 10%-15% lower than serum/plasma values. (CLIA ID [id number]) Performed By: #### B GLU ####[facility] [email or web address] [id number] [place] [place], [place] Glucose [Mass/Vol] 106 mg/dL High 70-100 [facility] Comment on above: Result Comment: Test performed by glucose meter. Results may be 10%-15% lower than serum/plasma values. (CLIA ID [id number]) Performed By: #### B GLU ####[facility] [email or web address] [id number] [place], [place] Hemogramon 12-20-2019 Erythrocyte distribution width (RBC) [Ratio] 15.1 % High 11.5-14.5 [facility] Comment on above: Performed By: #### B GLU #### [facility] [address], [place] Hematocrit (Bld) [Volume fraction] 27.2 % Low 40.0-52.0 [facility] Comment on above: Performed By: #### B GLU #### [facility] [email or web address] [facility] [address], [place] Hemoglobin (Bld) [Mass/Vol] 9.1 g/dL Low 13.0-18.0 [facility] Comment on above: Performed By: #### B GLU #### [facility] [email or web address] [facility] [address], [place] MCH (RBC) [Entitic mass] 31.6 pg Normal 26.0-34.0 [facility] Comment on above: Performed By: #### B GLU #### [facility] [email or web address] [facility] [address], [place] MCHC (RBC) [Mass/Vol] 33.5 % Normal 32.0-36.0 [facility] Comment on above: Performed By: #### B GLU #### [facility] [address], [place] MCV (RBC) [Entitic vol] 94.4 fL Normal 80.0-98.0 [facility] Comment on above: Performed By: #### B GLU #### [facility] [address] [place] [address] Platelet mean volume (Bld) [Entitic vol] 7.6 fL Normal 7.4-10.4 [facility] Comment on above: Performed By: #### B GLU #### [facility] [address] [place] [address] Platelets (Bld) [#/Vol] 244 10*3/uL Normal 140-440 [facility] Comment on above: Performed By: #### B GLU #### [facility] [address] [place] [address] RBC (Bld) [#/Vol] 2.89 10*6/uL Low 4.40-5.90 [facility] Comment on above: Performed By: #### B GLU #### [facility] [address] [place] [address] WBC (Bld) [#/Vol] 7.9 10*3/uL Normal 3.6-10.7 [facility] Comment on above: Performed By: #### B GLU #### [facility] [address] [place] [address] POCT Glucoseon 12-20-2019 Glucose [Mass/Vol] 136 mg/dL High 70 - 100 mg/dL [place] Comment on above: Test performed by gl ucose meter. Results may be 10%-15% lower than serum/plasma values. (CLIA ID [id number]) Interpretation and review of laboratory results Abnormal [employer], [place] Test Performed by [facility] [email or web address] [facility], [facility] [place] [address] [place] Glucose [Mass/Vol] 106 mg/dL High 70 - 100 mg/dL [place] Comment on above: Test performed by gl ucose meter. Results may be 10%-15% lower than serum/plasma values. (CLIA ID [id number]) Interpretation and review of laboratory results Abnormal [employer]- [place], [place] Test Performed by [facility], [facility] [place] [address] [place] Potassiumon 12-20-2019 Potassium [Moles/Vol] 3.3 mmol/L Low 3.5-5.1 [facility] Comment on above: Performed By: #### K 3 ####[id number] [place], [place] Interpretation and review of laboratory results Abnormal [place] Potassium [Moles/Vol] 3.3 mmol/L Low 3.5 - 5.1 mmol/L [facility] [place] Test Performed by [address] [address] [place] Potassium [Moles/Vol] 3.3 mmol/L Low 3.5-5.1 [facility] Comment on above: Performed By: #### K 3 ####[address] Interpretation and review of laboratory results Abnormal [place] Potassium [Moles/Vol] 3.3 mmol/L Low 3.5 - 5.1 mmol/L [place] Test Performed by [id number] [place] [address] XR CHEST PORTABLEon 12-20-19 Patient Name: DOUGLAS ISMON Jr ---Diagnostic Radiology--- Exam Date/Time 12/20/2019 06:48:05 EDT Exam CR Chest Portable Ordering Physician COLTON MARROQUIN Accession Number [id number] CPT4 Codes 51224 () Reason For Exam SOB Report HISTORY: Postop CABG Portable AP chest at 0528 hours is unchanged since last exam 24 hours ago Report Dictated on Workstation: [id number] --- Final --- Dictated: 12/20/2019 5:43 am Dictating Physician: MD ENNIS WILLIAM Signed Date and Time: 12/20/2019 5:44 am Signed by: MD ENNIS WILLIAM Transcribed Date and Time: 12/20/2019 5:43 [facility] [place], [facility] Incoming Radiology Results From [facility] - 12/20/2019 6:48 AM EDT Patient Name: DOUGLAS CALLAWAY Jr ---Diagnostic Radiology--- Exam Date/Time 12/20/2019 06:48:05 EDT Exam CR Chest Portable Ordering Physician COLTON MARROQUIN Accession Number [id number] CPT4 Codes 43337 () Reason For Exam SOB Report HISTORY: Postop CABG Portable AP chest at 0528 hours is unchanged since last exam 24 hours ago Report Dictated on Workstation: [id number] --- Final --- Dictated: 12/20/2019 5:43 am Dictating Physician: MD ENNIS WILLIAM Signed Date and Time: 12/20/2019 5:44 am Signed by: MD ENNIS WILLIAM Transcribed Date and Time: 12/20/2019 5:43 [place] Basic Metabolic Panelon 12-05 Anion gap [Moles/Vol] 9 Normal [facility] Comment on above: Performed By: #### B GLU #### [place] [address], [place] Calcium [Mass/Vol] 8.6 mg/dL Normal 8.4-10.4 [facility] Comment on above: Performed By: #### B GLU #### [address], [place] CO2 [Moles/Vol] 25 mmol/L Normal 22-30 [facility] Comment on above: Performed By: #### B GLU #### [address] [place] [address] Glucose [Mass/Vol] 168 mg/dL High 70-100 [facility] Comment on above: Performed By: #### B GLU #### [address] [place] [address] Urea nitrogen [Mass/Vol] 23 mg/dL High 7-20 [facility] Comment on above: Performed By: #### B GLU #### [place] [address], [place] Creatinine [Mass/Vol] 0.98 mg/dL Normal 0.52-1.25 [facility] Comment on above: Performed By: #### B GLU #### [place] [address], [place] GFR/1.73 sq M predicted among blacks MDRD (S/P/Bld) [Vol rate/Area] mL/min/{1.73_m2} Normal >60 [facility] Comment on above: Performed By: #### B GLU #### [address] [place] [address] GFR/1.73 sq M predicted among non-blacks MDRD (S/P/Bld) [Vol rate/Area] mL/min/{1.73_m2} Normal >60 [facility] Comment on above: Result Comment: Sour ce- MDRD equation with creatinine calibration to IDMS(NKDEP) eGFR not recommended for drug dose adjustment Performed By: #### B GLU #### [place] [address] [address], [place] Chloride [Moles/Vol] 103 mmol/L Normal 98-107 [facility] Comment on above: Performed By: #### B GLU #### [address] [address] [place], [place] Potassium [Moles/Vol] 3.1 mmol/L Low 3.5-5.1 [facility] Comment on above: Performed By: #### B GLU #### [address] [place], [place] Sodium [Moles/Vol] 137 mmol/L Normal 135-145 [facility] Comment on above: Performed By: #### B GLU #### [address] [address], [place] Anion gap [Moles/Vol] 9 mmol/L [place] Comment on above: Test Performed by [facility], [address] [place] [address] Calcium [Mass/Vol] 8.6 mg/dL 8.4 - 10. 4 mg/dL [place] Comment on above: Test Performed by [facility], [address] [place] [address] Chloride [Moles/Vol] 103 mmol/L 98 - 107 mmol/L [place] Comment on above: Test Performed by [facility], [address] [place] [address] CO2 [Moles/Vol] 25 mmol/L 22 - 30 mmol/L [place] Comment on above: Test Performed by [facility], [address] [place] [address] Creatinine [Mass/Vol] 0.98 mg/dL 0.52 - 1.25 mg/dL [place] Comment on above: Test Performed by [facility], [address] [place] [address] EGFR IF NonAfrican Faroese >60.0 >60 mL/min [place] Comment on above: Test Performed by [facility], [address] [place] [address] Source- MDRD equation with creatinine calibration to IDMS(NKDEP) eGFR not recommended for drug dose adjustment GFR/1.73 sq M predicted among blacks MDRD (S/P/Bld) [Vol rate/Area] mL/min/{1.73_m2} >60 mL/min [place] Comment on above: Test Performed by [facility] [employer] [facility], [address] [place] [address] Glucose [Mass/Vol] 168 mg/dL High 70 - 100 mg/dL [place] Comment on above: Test Performed by [facility] [employer] [facility], [address] [place] [address] Interpretation and review of laboratory results Abnormal [place] Potassium [Moles/Vol] 3.1 mmol/L Low 3.5 - 5.1 mmol/L [place] Comment on above: Test Performed by [employer] [facility], [address] [place] [address] Sodium [Moles/Vol] 137 mmol/L 135 - 145 mmol/L [place] Urea nitrogen [Mass/Vol] 23 mg/dL High 7 - 20 mg/dL [place] Comment on above: Test Performed by [employer] [facility], [address] [place] [address] Test Performed by [facility], [address] [place] [address] [place] Anion gap [Moles/Vol] 7 Normal [facility] Comment on above: Performed By: #### T SGL #### [facility] [address] [place] [address] [facility] #### LRC #### [facility] [address] [place] [address] Calcium [Mass/Vol] 8.7 mg/dL Normal 8.4-10.4 [facility] Comment on above: Performed By: #### T SGL #### [facility] [address] [place] [address] [facility] #### LRC #### [facility] [address] [place] [address] CO2 [Moles/Vol] 25 mmol/L Normal 22-30 [facility] Comment on above: Performed By: #### T SGL #### [facility] [address] [place] [address] [facility] #### LRC #### [place] [address] [place] [address] Glucose [Mass/Vol] 144 mg/dL High 70-100 [facility] Comment on above: Performed By: #### T SGL #### [facility] [address] [place] [address] [facility] #### LRC #### [address] [address] [place] [address] Urea nitrogen [Mass/Vol] 30 mg/dL High 7-20 [facility] Comment on above: Performed By: #### T SGL #### [facility] [address] [place] [address] [facility] #### LRC #### [place] [address] [place] [address] Creatinine [Mass/Vol] 1.10 mg/dL Normal 0.52-1.25 [facility] Comment on above: Performed By: #### T SGL #### [facility] [address] [place] [address] [facility] #### LRC #### [facility] [address] [place] [address] GFR/1.73 sq M predicted among blacks MDRD (S/P/Bld) [Vol rate/Area] mL/min/{1.73_m2} Normal >60 [facility] Comment on above: Performed By: #### T SGL #### [address] [place] [address] [facility] #### LRC #### [address] [place] [address] GFR/1.73 sq M predicted among non-blacks MDRD (S/P/Bld) [Vol rate/Area] mL/min/{1.73_m2} Normal >60 [facility] Comment on above: Result Comment: Sour ce- MDRD equation with creatinine calibration to IDMS(NKDEP) eGFR not recommended for drug dose adjustment Performed By: #### T SGL #### [address] [place] [address] [facility] #### LRC #### [address] [place] [address] Chloride [Moles/Vol] 105 mmol/L Normal 98-107 [facility] Comment on above: Performed By: #### T SGL #### [address] [place] [address] [facility] #### LRC #### [address] [place] [address] Potassium [Moles/Vol] 3.4 mmol/L Low 3.5-5.1 [facility] Comment on above: Performed By: #### T SGL #### [address] [place] [address] [facility] #### LRC #### [address] [place] [address] Sodium [Moles/Vol] 137 mmol/L Normal 135-145 [facility] Comment on above: Performed By: #### T SGL #### [address] [place] [address] [facility] #### LRC #### [address] [place] [address] Anion gap [Moles/Vol] 7 mmol/L [facility] [place] Comment on above: Test Performed by [place] [address] [place] [address] Calcium [Mass/Vol] 8.7 mg/dL 8.4 - 10. 4 mg/dL [place] Comment on above: Test Performed by [employer] [facility], [facility] [place] [address] Chloride [Moles/Vol] 105 mmol/L 98 - 107 mmol/L [place] Comment on above: Test Performed by [employer] [facility], [facility] [place] [address] CO2 [Moles/Vol] 25 mmol/L 22 - 30 mmol/L [place] Comment on above: Test Performed by [employer] [facility], [facility] [place] [address] Creatinine [Mass/Vol] 1.1 mg/dL 0.52 - 1.25 mg/dL [place] Comment on above: Test Performed by [employer] [facility], [facility] [place] [address] EGFR IF NonAfrican Faroese >60.0 >60 mL/min [place] Comment on above: Test Performed by [employer] [facility], [facility] [place] [address] Source- MDRD equation with creatinine calibration to IDMS(NKDEP) eGFR not recommended for drug dose adjustment GFR/1.73 sq M predicted among blacks MDRD (S/P/Bld) [Vol rate/Area] mL/min/{1.73_m2} >60 mL/min [place] Comment on above: Test Performed by [employer] [facility], [facility] [place] [address] Glucose [Mass/Vol] 144 mg/dL High 70 - 100 mg/dL [place] Comment on above: Test Performed by [employer] [facility], [facility] [place] [address] Interpretation and review of laboratory results Abnormal [place] Potassium [Moles/Vol] 3.4 mmol/L Low 3.5 - 5.1 mmol/L [place] Comment on above: Test Performed by [employer] [facility], [facility] [place] [address] Sodium [Moles/Vol] 137 mmol/L 135 - 145 mmol/L [place] Urea nitrogen [Mass/Vol] 30 mg/dL High 7 - 20 mg/dL [place] Comment on above: Test Performed by [facility], [facility] [place] [address] Test Performed by [facility], [facility] [place] [address] [place] CBCon 12-19-2019 Erythrocyte distribution width (RBC) [Ratio] 14.4 % 11.5 - 14.5 % [place] Comment on above: Test Performed by [facility], [facility] [place] [address] Hematocrit (Bld) [Volume fraction] 22.3 % Low 40 - 52 % [place] Comment on above: Test Performed by [facility], [facility] [place] [address] Hemoglobin (Bld) [Mass/Vol] 7.4 g/dL Low 13 - 18 g/dL [place] Comment on above: Test Performed by [facility], [facility] [place] [address] Interpretation and review of laboratory results Abnormal [place] MCH (RBC) [Entitic mass] 32.3 pg 26 - 34 pg [place] Comment on above: Test Performed by [facility], [facility] [place] [address] MCHC (RBC) [Mass/Vol] 33.3 % 32 - 36 % [place] Comment on above: Test Performed by [facility], [facility] [place] [address] MCV (RBC) [Entitic vol] 96.9 fL 80 - 98 fL [place] Comment on above: Test Performed by [facility], [facility] [place] [address] Platelet mean volume (Bld) [Entitic vol] 8.2 fL 7.4 - 10.4 fL [place] Comment on above: Test Performed by [facility], [facility] [address] Platelets (Bld) [#/Vol] 215 10*3/uL 140 - 440 10*3/uL [place] Comment on above: Test Performed by [facility], [address] [place] [address] RBC (Bld) [#/Vol] 2.30 10*6/uL Low 4.4 - 5.9 10*6/uL [place] Comment on above: Test Performed by [facility], [address] [place] [address] WBC (Bld) [#/Vol] 7.5 10*3/uL 3.6 - 10.7 10*3/uL [place] Test Performed by [facility], [facility] [address] [place] CR Chest Portableon 12-19-19 20 CR Chest Portable Patient Name: DOUGLAS SIMON Jr Diagnostic Radiology Exam Date/Time 12/19/2019 06:16:45 EDT Exam CR Chest Portable Ordering Physician COLTON MARROQUIN Accession Number [id number] CPT4 Codes 99891 () Reason For Exam post op open heart, sob Report HISTORY: Postop heart surgery Portable AP chest at 0529 hours compared to prior study 24 hours ago. FINDINGS: Improving aeration left lung base since last exam. No other significant change Report Dictated on Workstation: [id number] Final Dictated: 12/19/2019 6:30 am Dictating Physician: MD ENNIS WILLIAM Signed Date and Time: 12/19/2019 6:31 am Signed by: MD ENNIS WILLIAM Transcribed Date and Time: 12/19/2019 6:30 Normal [facility] Glucose,Bedsideon 12-19-2019 Glucose [Mass/Vol] 139 mg/dL High 70-100 [facility] Comment on above: Result Comment: Test performed by glucose meter. Results may be 10%-15% lower than serum/plasma values. (CLIA ID [id number]) Performed By: #### B GLU #### [facility] [address] [place] [address] Glucose [Mass/Vol] 186 mg/dL High 70-100 [facility] Comment on above: Result Comment: Test performed by glucose meter. Results may be 10%-15% lower than serum/plasma values. (CLIA ID [id number]) Performed By: #### B GLU #### [facility] [address] [place] [address] Glucose [Mass/Vol] 208 mg/dL High 70-100 [facility] Comment on above: Result Comment: Test performed by glucose meter. Results may be 10%-15% lower than serum/plasma values. (CLIA ID [id number]) Performed By: #### B GLU #### [facility] [address] [place] [address] Glucose [Mass/Vol] 232 mg/dL High 70-100 [facility] Comment on above: Result Comment: Test performed by glucose meter. Results may be 10%-15% lower than serum/plasma values. (CLIA ID [id number]) Performed By: #### B GLU #### [place] [address] [place] [address] Hemoglobin AND Hematocriton 12-19-2019 Hematocrit (Bld) [Volume fraction] 27.1 % Low 40.0-52.0 [facility] Comment on above: Performed By: #### B GLU #### [place] [address] [place] [address] Hemoglobin (Bld) [Mass/Vol] 9.5 g/dL Low 13.0-18.0 [facility] Comment on above: Performed By: #### B GLU #### [place] [place] [address] Hemoglobin and Hematocrit, B loodon 12-19-2019 Hematocrit (Bld) [Volume fraction] 27.1 % Low 40 - 52 % [place] Comment on above: Test Performed by [facility], [facility] [place] [address] Hemoglobin (Bld) [Mass/Vol] 9.5 g/dL Low 13 - 18 g/dL [place] Interpretation and review of laboratory results Abnormal [place] Test Performed by [facility], [address] [place] [address] [place] Hemogramon 12-19-2019 Erythrocyte distribution width (RBC) [Ratio] 14.4 % Normal 11.5-14.5 [facility] Comment on above: Performed By: #### T SGL #### [place] [address] [place] [address] [facility] #### LRC #### [place] [place] [address] Hematocrit (Bld) [Volume fraction] 22.3 % Low 40.0-52.0 [facility] Comment on above: Performed By: #### T SGL #### [place] [place] [address] [facility] #### LRC #### [place] [address] [place] [address] Hemoglobin (Bld) [Mass/Vol] 7.4 g/dL Low 13.0-18.0 [facility] Comment on above: Performed By: #### T SGL #### [place] [address] [place], [place] [address] [place] [address] #### LRC #### [place] [place] [address] MCH (RBC) [Entitic mass] 32.3 pg Normal 26.0-34.0 [facility] Comment on above: Performed By: #### T SGL #### [place] [place], [place] [address] [place] [address] #### LRC #### [place] [place] [address] MCHC (RBC) [Mass/Vol] 33.3 % Normal 32.0-36.0 [facility] Comment on above: Performed By: #### T SGL #### [place] [place] [address] [facility] #### LRC #### [place] [place] [address] MCV (RBC) [Entitic vol] 96.9 fL Normal 80.0-98.0 [facility] Comment on above: Performed By: #### T SGL #### [place] [address] [place], [place] [address] [place] [address] #### LRC #### [place] [address] [place] [address] Platelet mean volume (Bld) [Entitic vol] 8.2 fL Normal 7.4-10.4 [facility] Comment on above: Performed By: #### T SGL #### [place] [address] [place] [address] [facility] #### LRC #### [place] [place] [address] Platelets (Bld) [#/Vol] 215 10*3/uL Normal 140-440 [facility] Comment on above: Performed By: #### T SGL #### [place] [address] [place], [place] [address] [place] [address] #### LRC #### [place] [address] [place] [address] RBC (Bld) [#/Vol] 2.30 10*6/uL Low 4.40-5.90 [facility] Comment on above: Performed By: #### T SGL #### [place] [address] [place], [place] [address] [place] [address] #### LRC #### [place] [address] [place] [address] WBC (Bld) [#/Vol] 7.5 10*3/uL Normal 3.6-10.7 [facility] Comment on above: Performed By: #### T SGL #### [place] [address] [place], [place] [id number] [place] [address] #### LRC #### [place] [address] [place] [address] Leukodepleted Red Cellson Leukodepleted Red Cells Leukodepleted Red Cells: [id number] transfused 12/19/19 08:13 JMV Unit Blood Type: O Unit Blood Rh: POS Blood Product Code: AS3 Unit Number: [id number] Unit Status: transfused Barcoded Unit Number: [id number] Barcoded Product Code: = Barcoded ABO/Rh: =%5100 Unit Expiration: [id number] Unit Volume Transfused: 300 Unit Transfusion Start Date/Time: Normal [facility] Comment on above: Performed By: #### B GLU #### [facility] [address] [place] [address] POCT Glucoseon 12-19-2019 Glucose [Mass/Vol] 139 mg/dL High 70 - 100 mg/dL [facility] Comment on above: Test performed by gl ucose meter. Results may be 10%-15% lower than serum/plasma values. (CLIA ID [id number]) Interpretation and review of laboratory results Abnormal [facility] Test Performed by [employer] [facility], [facility] [place] [address] [facility] [place] Glucose [Mass/Vol] 186 mg/dL High 70 - 100 mg/dL [facility] Comment on above: Test performed by gl ucose meter. Results may be 10%-15% lower than serum/plasma values. (CLIA ID [id number]) Interpretation and review of laboratory results Abnormal [facility] Test Performed by [employer] [facility], [facility] [address] [facility] Glucose [Mass/Vol] 208 mg/dL High 70 - 100 mg/dL [facility] [place] Comment on above: Test performed by gl ucose meter. Results may be 10%-15% lower than serum/plasma values. (CLIA ID [id number]) Interpretation and review of laboratory results Abnormal [facility] Test Performed by [employer], [facility] [address] [facility] Glucose [Mass/Vol] 232 mg/dL High 70 - 100 mg/dL [facility] [place] Comment on above: Test performed by gl ucose meter. Results may be 10%-15% lower than serum/plasma values. (CLIA ID [id number]) Interpretation and review of laboratory results Abnormal [facility] Test Performed by [employer] [facility], [facility] [address] [facility] [place] Potassiumon 12-19-2019 Potassium [Moles/Vol] 3.5 mmol/L Normal 3.5-5.1 [facility] Comment on above: Performed By: #### T SGL #### [address] [address] [place] [address] [facility] #### LRC #### [address] [address] [place] [address] Potassium [Moles/Vol] 3.5 mmol/L 3.5 - 5.1 mmol/L [place] Test Performed by [facility], [facility] [address] [place] TS GELon 12-19-2019 TS GEL ABO Group: O Rh, Gel: POS Antibody Screen Gel: NEG Normal [facility] Comment on above: Performed By: #### B GLU #### [address] [address] TYPE AND SCREENon 12-19-2019 Sodium [Moles/Vol] Negative [place] Comment on above: Test Performed by [facility], [address] [place] [address] Sodium [Moles/Vol] Positive [place] Comment on above: Test Performed by [facility], [address] [place] [address] Sodium [Moles/Vol] O [place] Test Performed by [facility], [address] [place] [address] [place] XR CHEST PORTABLEon 12-19-19 20 [facility] Incoming Radiology Results From [facility] - 12/19/2019 6:32 AM EDT Patient Name: DOUGLAS CALLAWAY Jr ---Diagnostic Radiology--- Exam Date/Time 12/19/2019 06:16:45 EDT Exam CR Chest Portable Ordering Physician COLTON MARROQUIN Accession Number [id number] CPT4 Codes 44975 () Reason For Exam post op open heart, sob Report HISTORY: Postop heart surgery Portable AP chest at 0529 hours compared to prior study 24 hours ago. FINDINGS: Improving aeration left lung base since last exam. No other significant change Report Dictated on Workstation: [id number] --- Final --- Dictated: 12/19/2019 6:30 am Dictating Physician: MD ENNIS WILLIAM Signed Date and Time: 12/19/2019 6:31 am Signed by: MD ENNIS WILLIAM Transcribed Date and Time: 12/19/2019 6:30 [place] Patient Name: DOUGLAS SIMON Jr ---Diagnostic Radiology--- Exam Date/Time 12/19/2019 06:16:45 EDT Exam CR Chest Portable Ordering Physician COLTON MARROQUIN Accession Number [id number] CPT4 Codes 82677 () Reason For Exam post op open heart, sob Report HISTORY: Postop heart surgery Portable AP chest at 0529 hours compared to prior study 24 hours ago. FINDINGS: Improving aeration left lung base since last exam. No other significant change Report Dictated on Workstation: [id number] --- Final --- Dictated: 12/19/2019 6:30 am Dictating Physician: MD ENNIS WILLIAM Signed Date and Time: 12/19/2019 6:31 am Signed by: MD ENNIS WILLIAM Transcribed Date and Time: 12/19/2019 6:30 [place] Basic Metabolic Panelon 04- Calcium [Mass/Vol] 9.0 mg/dL Normal 8.4-10.4 [facility] Comment on above: Performed By: #### T SGL #### [facility] [address] [place] [address] [facility] #### LRC #### [address] [address] [place] [address] Glucose [Mass/Vol] 191 mg/dL High 70-100 [facility] Comment on above: Performed By: #### T SGL #### [facility] [address] [place] [address] [facility] #### LRC #### [address] [address] [place] [address] Anion gap [Moles/Vol] 10 Normal [facility] Comment on above: Performed By: #### T SGL #### [facility] [address] [place] [address] [facility] #### LRC #### [address] [place] [address] CO2 [Moles/Vol] 23 mmol/L Normal 22-30 [facility] Comment on above: Performed By: #### T SGL #### [address] [address] [place] [address] [facility] #### LRC #### [address] [address] [place] [address] Creatinine [Mass/Vol] 1.17 mg/dL Normal 0.52-1.25 [facility] Comment on above: Performed By: #### T SGL #### [address] [address] [place] [address] [facility] #### LRC #### [address] [place] [address] GFR/1.73 sq M predicted among blacks MDRD (S/P/Bld) [Vol rate/Area] mL/min/{1.73_m2} Normal >60 [facility] Comment on above: Performed By: #### T SGL #### [address] [address] [place] [address] [facility] #### LRC #### [address] [place] [address] GFR/1.73 sq M predicted among non-blacks MDRD (S/P/Bld) [Vol rate/Area] mL/min/{1.73_m2} Normal >60 [facility] Comment on above: Result Comment: Sour ce- MDRD equation with creatinine calibration to IDMS(NKDEP) eGFR not recommended for drug dose adjustment Performed By: #### T SGL #### [address] [address] [place] [address] [facility] #### LRC #### [address] [place] [address] Urea nitrogen [Mass/Vol] 37 mg/dL High 7-20 [facility] Comment on above: Performed By: #### T SGL #### [address] [place] [address] [facility] #### LRC #### [facility] [address] [place] [address] Chloride [Moles/Vol] 103 mmol/L Normal 98-107 [facility] Comment on above: Performed By: #### T SGL #### [facility] [address] [place] [address] [facility] #### LRC #### [facility] [address] [place] [address] Potassium [Moles/Vol] 4.1 mmol/L Normal 3.5-5.1 [facility] Comment on above: Performed By: #### T SGL #### [facility] [address] [place] [address] [facility] #### LRC #### [facility] [address] [place] [address] Sodium [Moles/Vol] 136 mmol/L Normal 135-145 [facility] Comment on above: Performed By: #### T SGL #### [facility] [address] [place] [address] [facility] #### LRC #### [facility] [address] [place] [address] Anion gap [Moles/Vol] 10 mmol/L [place] Comment on above: Test Performed by [facility], [facility] [place] [address] Calcium [Mass/Vol] 9.0 mg/dL 8.4 - 10. 4 mg/dL [place] Comment on above: Test Performed by [facility], [facility] [place] [address] Chloride [Moles/Vol] 103 mmol/L 98 - 107 mmol/L [place] Comment on above: Test Performed by [facility], [facility] [place] [address] CO2 [Moles/Vol] 23 mmol/L 22 - 30 mmol/L [place] Comment on above: Test Performed by [facility], [facility] [place] [address] Creatinine [Mass/Vol] 1.17 mg/dL 0.52 - 1.25 mg/dL [place] Comment on above: Test Performed by [facility], [address] [place] [address] EGFR IF NonAfrican Faroese >60.0 >60 mL/min [place] Comment on above: Test Performed by [facility], [facility] [place] [address] Source- MDRD equation with creatinine calibration to IDMS(NKDEP) eGFR not recommended for drug dose adjustment GFR/1.73 sq M predicted among blacks MDRD (S/P/Bld) [Vol rate/Area] mL/min/{1.73_m2} >60 mL/min [place] Comment on above: Test Performed by [employer] [facility], [facility] [place] [address] Glucose [Mass/Vol] 191 mg/dL High 70 - 100 mg/dL [place] Comment on above: Test Performed by [employer] [facility], [facility] [place] [address] Interpretation and review of laboratory results Abnormal [place] Potassium [Moles/Vol] 4.1 mmol/L 3.5 - 5.1 mmol/L [place] Comment on above: Test Performed by [facility], [address] [place] [address] Sodium [Moles/Vol] 136 mmol/L 135 - 145 mmol/L [place] Urea nitrogen [Mass/Vol] 37 mg/dL High 7 - 20 mg/dL [place] Comment on above: Test Performed by [employer] [facility], [facility] [place] [address] Test Performed by [facility], [address] [place] [address] [place] CBCon 12-18-2019 Erythrocyte distribution width (RBC) [Ratio] 14.5 % 11.5 - 14.5 % [place] Comment on above: Test Performed by [employer] [facility], [facility] [place] [address] Hematocrit (Bld) [Volume fraction] 23.8 % Low 40 - 52 % [place] Comment on above: Test Performed by [facility], [address] [place] [address] Hemoglobin (Bld) [Mass/Vol] 7.9 g/dL Low 13 - 18 g/dL [place] Comment on above: Test Performed by [facility], [address] [place] [address] Interpretation and review of laboratory results Abnormal [place] MCH (RBC) [Entitic mass] 32.3 pg 26 - 34 pg [place] Comment on above: Test Performed by [facility], [address] [place] [address] MCHC (RBC) [Mass/Vol] 33.3 % 32 - 36 % [place] Comment on above: Test Performed by [facility], [facility] [place] [address] MCV (RBC) [Entitic vol] 96.9 fL 80 - 98 fL [place] Comment on above: Test Performed by [facility], [facility] [place] [address] Platelet mean volume (Bld) [Entitic vol] 8.4 fL 7.4 - 10.4 fL [place] Comment on above: Test Performed by [facility], [facility] [address] Platelets (Bld) [#/Vol] 213 10*3/uL 140 - 440 10*3/uL [place] Comment on above: Test Performed by [facility], [facility] [address] RBC (Bld) [#/Vol] 2.46 10*6/uL Low 4.4 - 5.9 10*6/uL [place] Comment on above: Test Performed by [facility], [place] [address] WBC (Bld) [#/Vol] 9.5 10*3/uL 3.6 - 10.7 10*3/uL [place] Test Performed by [facility], [address] [place] [address] [place] CR Chest Portableon 12-18-19 20 CR Chest Portable Patient Name: ОЛЬГА Max Jr, DOUGLAS Reed Diagnostic Radiology Exam Date/Time 12/18/2019 06:19:10 EDT Exam CR Chest Portable Ordering Physician COLTON MARROQUIN Accession Number [id number] CPT4 Codes 21301 () Reason For Exam POST OP OPEN HEART SOB Report Portable chest 12/18/2019: Clinical Information: Dyspnea. Findings: A single AP portable view of the chest was obtained at 512 hours. Comparison was made to the prior study prior day. The basal chest tubes and right jugular introducer sheath are unchanged. There is minimal atelectasis in both lung bases. No pulmonary vascular congestion is currently identified. Report Dictated on Workstation: [id number] Final Dictated: 12/18/2019 8:00 am Dictating Physician: MD SAUNDERS RISA Signed Date and Time: 12/18/2019 8:01 am Signed by: MD SAUNDERS RISA Transcribed Date and Time: 12/18/2019 8:00 Normal [facility] Glucose,Bedsideon 12-18-2019 Glucose [Mass/Vol] 135 mg/dL High 70-100 [facility] Comment on above: Result Comment: Test performed by glucose meter. Results may be 10%-15% lower than serum/plasma values. (CLIA ID [id number]) Performed By: #### T SGL #### [address] [place], [place] [address] [place] [address] #### LRC #### [address] [address] [place] [address] Glucose [Mass/Vol] 183 mg/dL High 70-100 [facility] Comment on above: Result Comment: Test performed by glucose meter. Results may be 10%-15% lower than serum/plasma values. (CLIA ID [id number]) Performed By: #### T SGL #### [address] [place], [place] [id number] [place] [address] #### LRC #### [address] [place] [address] Hemogramon 12-18-2019 Erythrocyte distribution width (RBC) [Ratio] 14.5 % Normal 11.5-14.5 [facility] Comment on above: Performed By: #### T SGL #### [address] [place] [address] [facility] #### LRC #### [address] [place] [address] Hematocrit (Bld) [Volume fraction] 23.8 % Low 40.0-52.0 [facility] Comment on above: Performed By: #### T SGL #### [address] [place], [place] [address] [place] [address] #### LRC #### [address] [place] [address] Hemoglobin (Bld) [Mass/Vol] 7.9 g/dL Low 13.0-18.0 [facility] Comment on above: Performed By: #### T SGL #### [address] [place], [place] [address] [place] [address] #### LRC #### [address] [place] [address] MCH (RBC) [Entitic mass] 32.3 pg Normal 26.0-34.0 [facility] Comment on above: Performed By: #### T SGL #### [address] [place], [place] [address] [place] [address] #### LRC #### [address] [place] [address] MCHC (RBC) [Mass/Vol] 33.3 % Normal 32.0-36.0 [facility] Comment on above: Performed By: #### T SGL #### [address] [place], [place] [address] [place] [address] #### LRC #### [address] [place] [address] MCV (RBC) [Entitic vol] 96.9 fL Normal 80.0-98.0 [facility] Comment on above: Performed By: #### T SGL #### [address] [place], [place] [address] [place] [address] #### LRC #### [address] [place] [address] Platelet mean volume (Bld) [Entitic vol] 8.4 fL Normal 7.4-10.4 [facility] Comment on above: Performed By: #### T SGL #### [facility] [address] [place] [address] [facility] #### LRC #### [address] [place] [address] Platelets (Bld) [#/Vol] 213 10*3/uL Normal 140-440 [facility] Comment on above: Performed By: #### T SGL #### [address] [place] [address] [facility] #### LRC #### [address] [place] [address] RBC (Bld) [#/Vol] 2.46 10*6/uL Low 4.40-5.90 [facility] Comment on above: Performed By: #### T SGL #### [address] [place], [place] [address] [place] [address] #### LRC #### [address] [place] [address] WBC (Bld) [#/Vol] 9.5 10*3/uL Normal 3.6-10.7 [facility] Comment on above: Performed By: #### T SGL #### [address] [place], [place] [address] [place] [address] #### LRC #### [address] [place] [address] Leukodepleted Red Cellson Leukodepleted Red Cells Leukodepleted Red Cells: [id number] released 12/18/19 07:33 JMV Unit Blood Type: O Unit Blood Rh: POS Blood Product Code: AS3 Unit Number: [id number] Unit Status: released Barcoded Unit Number: =[id number] Barcoded Product Code: = Barcoded ABO/Rh: =%5100 Unit Expiration: Leukodepleted Red Cells: [id number] released 12/18/19 07:33 JMV Unit Blood Type: O Unit Blood Rh: POS Blood Product Code: AS3 Unit Number: [id number] Unit Status: released Barcoded Unit Number: =[id number] Barcoded Product Code: = Barcoded ABO/Rh: =%5100 Unit Expiration: Normal [facility] Comment on above: Performed By: #### T SGL #### [facility] [address] [place] [address] [facility] #### LRC #### [facility] [address] [place] [address] POCT Glucoseon 12-18-2019 Glucose [Mass/Vol] 135 mg/dL High 70 - 100 mg/dL [facility] [place] Comment on above: Test performed by gl ucose meter. Results may be 10%-15% lower than serum/plasma values. (CLIA ID [id number]) Interpretation and review of laboratory results Abnormal [employer]Map, IntroMaps Test Performed by [facility], [facility] [address] [facility] [employer] [place] Glucose [Mass/Vol] 183 mg/dL High 70 - 100 mg/dL [facility] Comment on above: Test performed by gl ucose meter. Results may be 10%-15% lower than serum/plasma values. (CLIA ID [id number]) Interpretation and review of laboratory results Abnormal [employer], [employer] Test Performed by [facility], [facility] [place] [address] [facility] [employer] XR CHEST PORTABLEon 12-18-19 Patient Name: DOUGLAS SIMON Jr ---Diagnostic Radiology--- Exam Date/Time 12/18/2019 06:19:10 EDT Exam CR Chest Portable Ordering Physician COLTON MARROQUIN Accession Number [id number] CPT4 Codes 45097 () Reason For Exam POST OP OPEN HEART SOB Report Portable chest 12/18/2019: Clinical Information: Dyspnea. Findings: A single AP portable view of the chest was obtained at 512 hours. Comparison was made to the prior study prior day. The basal chest tubes and right jugular introducer sheath are unchanged. There is minimal atelectasis in both lung bases. No pulmonary vascular congestion is currently identified. Report Dictated on Workstation: [id number] --- Final --- Dictated: 12/18/2019 8:00 am Dictating Physician: MD SAUNDERS RISA Signed Date and Time: 12/18/2019 8:01 am Signed by: MD SAUNDERS RISA Transcribed Date and Time: 12/18/2019 8:00 [place] From [facility] - 12/18/2019 8:02 AM EDT Patient Name: DOUGLAS CALLAWAY Jr ---Diagnostic Radiology--- Exam Date/Time 12/18/2019 06:19:10 EDT Exam CR Chest Portable Ordering Physician COLTON MARROQUIN Accession Number [id number] CPT4 Codes 29710 () Reason For Exam POST OP OPEN HEART SOB Report Portable chest 12/18/2019: Clinical Information: Dyspnea. Findings: A single AP portable view of the chest was obtained at 512 hours. Comparison was made to the prior study prior day. The basal chest tubes and right jugular introducer sheath are unchanged. There is minimal atelectasis in both lung bases. No pulmonary vascular congestion is currently identified. Report Dictated on Workstation: [id number] --- Final --- Dictated: 12/18/2019 8:00 am Dictating Physician: MD SAUNDERS RISA Signed Date and Time: 12/18/2019 8:01 am Signed by: MD SAUNDERS RISA Transcribed Date and Time: 12/18/2019 8:00 [facility] [place] Basic Metabolic Panelon - Calcium [Mass/Vol] 9.3 mg/dL Normal 8.4-10.4 [facility] Comment on above: Performed By: #### H EMOG, HA1C2, PT, BMP3, LFT3 #### [facility] [email or web address] [facility] [address] [place] [address] Glucose [Mass/Vol] 82 mg/dL Normal 70-100 [facility] Comment on above: Performed By: #### H EMOG, HA1C2, PT, BMP3, LFT3 #### [address] Urea nitrogen [Mass/Vol] 25 mg/dL High 7-20 [facility] Comment on above: Performed By: #### H EMOG, HA1C2, PT, BMP3, LFT3 #### [address] Anion gap [Moles/Vol] 7 Normal [facility] Comment on above: Performed By: #### H EMOG, HA1C2, PT, BMP3, LFT3 #### [address] [address] CO2 [Moles/Vol] 25 mmol/L Normal 22-30 [facility] Comment on above: Performed By: #### H EMOG, HA1C2, PT, BMP3, LFT3 #### [address] Creatinine [Mass/Vol] 1.17 mg/dL Normal 0.52-1.25 [facility] Comment on above: Performed By: #### H EMOG, HA1C2, PT, BMP3, LFT3 #### [address] GFR/1.73 sq M predicted among blacks MDRD (S/P/Bld) [Vol rate/Area] mL/min/{1.73_m2} Normal >60 [facility] Comment on above: Performed By: #### H EMOG, HA1C2, PT, BMP3, LFT3 #### [address] [address] GFR/1.73 sq M predicted among non-blacks MDRD (S/P/Bld) [Vol rate/Area] mL/min/{1.73_m2} Normal >60 [facility] Comment on above: Result Comment: Sour ce- MDRD equation with creatinine calibration to IDMS(NKDEP) eGFR not recommended for drug dose adjustment Performed By: #### H EMOG, HA1C2, PT, BMP3, LFT3 #### [address] [place] [address] Chloride [Moles/Vol] 103 mmol/L Normal 98-107 [facility] Comment on above: Performed By: #### H EMOG, HA1C2, PT, BMP3, LFT3 #### [facility] [address] [place] [address] Potassium [Moles/Vol] 4.6 mmol/L Normal 3.5-5.1 [facility] Comment on above: Performed By: #### H EMOG, HA1C2, PT, BMP3, LFT3 #### [facility] [address] [place] [address] Sodium [Moles/Vol] 136 mmol/L Normal 135-145 [facility] Comment on above: Performed By: #### H EMOG, HA1C2, PT, BMP3, LFT3 #### [facility] [address] [place] [address] Anion gap [Moles/Vol] 7 mmol/L [place] Comment on above: Test Performed by [facility], [address] [place] [address] Calcium [Mass/Vol] 9.3 mg/dL 8.4 - 10. 4 mg/dL [place] Comment on above: Test Performed by [facility], [address] [place] [address] Chloride [Moles/Vol] 103 mmol/L 98 - 107 mmol/L [place] Comment on above: Test Performed by [facility], [address] [place] [address] CO2 [Moles/Vol] 25 mmol/L 22 - 30 mmol/L [place] Comment on above: Test Performed by [facility], [address] [place] [address] Creatinine [Mass/Vol] 1.17 mg/dL 0.52 - 1.25 mg/dL [place] Comment on above: Test Performed by [facility], [facility] [place] [address] EGFR IF NonAfrican Faroese >60.0 >60 mL/min [place] Comment on above: Test Performed by [facility], [facility] [place] [address] Source- MDRD equation with creatinine calibration to IDMS(NKDEP) eGFR not recommended for drug dose adjustment GFR/1.73 sq M predicted among blacks MDRD (S/P/Bld) [Vol rate/Area] mL/min/{1.73_m2} >60 mL/min [place] Comment on above: Test Performed by [facility], [facility] [place] [address] Glucose [Mass/Vol] 82 mg/dL 70 - 100 mg/dL [place] Comment on above: Test Performed by [facility], [address] [place] [address] Interpretation and review of laboratory results Abnormal [place] Potassium [Moles/Vol] 4.6 mmol/L 3.5 - 5.1 mmol/L [place] Comment on above: Test Performed by [facility], [facility] [place] [address] Sodium [Moles/Vol] 136 mmol/L 135 - 145 mmol/L [place] Urea nitrogen [Mass/Vol] 25 mg/dL High 7 - 20 mg/dL [place] Comment on above: Test Performed by [facility], [address] [place] [address] CBCon 12-17-2019 Erythrocyte distribution width (RBC) [Ratio] 14.4 % 11.5 - 14.5 % [place] Comment on above: Test Performed by [facility], [facility] [place] [address] Hematocrit (Bld) [Volume fraction] 24.4 % Low 40 - 52 % [place] Comment on above: Test Performed by [facility], [facility] [place] [address] Hemoglobin (Bld) [Mass/Vol] 8.0 g/dL Low 13 - 18 g/dL [place] Comment on above: Test Performed by [facility], [facility] [place] [address] Interpretation and review of laboratory results Abnormal [place] MCH (RBC) [Entitic mass] 32.0 pg 26 - 34 pg [place] Comment on above: Test Performed by [facility], [address] [place] [address] MCHC (RBC) [Mass/Vol] 33.0 % 32 - 36 % [place] Comment on above: Test Performed by [facility], [facility] [place] [address] MCV (RBC) [Entitic vol] 97.0 fL 80 - 98 fL [place] Comment on above: Test Performed by [facility], [address] [place] [address] Platelet mean volume (Bld) [Entitic vol] 8.3 fL 7.4 - 10.4 fL [place] Comment on above: Test Performed by [facility], [address] [place] [address] Platelets (Bld) [#/Vol] 165 10*3/uL 140 - 440 10*3/uL [place] Comment on above: Test Performed by [facility], [address] [place] [address] RBC (Bld) [#/Vol] 2.51 10*6/uL Low 4.4 - 5.9 10*6/uL [place] Comment on above: Test Performed by [facility], [address] [place] [address] WBC (Bld) [#/Vol] 11.3 10*3/uL High 3.6 - 10.7 10*3/uL [place] Test Performed by [facility], [address] [place] [address] [place] CR Chest Portableon 12-17-19 20 CR Chest Portable Patient Name: DOUGLAS SIMON Jr Diagnostic Radiology Exam Date/Time 12/17/2019 06:52:59 EDT Exam CR Chest Portable Ordering Physician COLTON MARROQUIN Accession Number [id number] CPT4 Codes 75111 () Reason For Exam SOB Report HISTORY: Status post CABG Portable AP chest 0536 hours is compared to previous study 24 hours ago. FINDINGS: Continued mild atelectatic changes both lung bases. Removal of [place]-Iza catheter since last exam with remaining right internal jugular introducer sheath Pleural tubes, mild colonic dilatation with high position of hepatic flexure Report Dictated on Workstation: [id number] Final Dictated: 12/17/2019 5:55 am Dictating Physician: MD ENNIS WILLIAM Signed Date and Time: 12/17/2019 5:58 am Signed by: MD ENNIS WILLIAM Transcribed Date and Time: 12/17/2019 5:55 Normal [facility] EKG 12 leadon 12-17-2019 [facility] Test Date: 2019-12-17 Pat Name: Douglas Callaway Department: [facility] Room: [facility] 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 Glucose,Bedsideon 12-17-2019 Glucose [Mass/Vol] 307 mg/dL High 70-100 [facility] Comment on above: Result Comment: Test performed by glucose meter. Results may be 10%-15% lower than serum/plasma values. (CLIA ID [id number]) Performed By: #### T SGL #### [facility] [address] [place] [facility] [place] [address] [facility] #### LRC #### [facility] [address] [place] [address] Glucose [Mass/Vol] 207 mg/dL High 70-100 [facility] Comment on above: Result Comment: Test performed by glucose meter. Results may be 10%-15% lower than serum/plasma values. (CLIA ID [id number]) Performed By: #### T SGL #### [facility] [address] [facility] [place] [address] [facility] #### LRC #### [facility] [address] [place] [address] Glucose [Mass/Vol] 166 mg/dL High 70-100 [facility] Comment on above: Result Comment: Test performed by glucose meter. Results may be 10%-15% lower than serum/plasma values. (CLIA ID [id number]) Performed By: #### T SGL #### [facility] [address] [facility] [place] [address] [facility] #### LRC #### [place] [address] [place] [address] Glucose [Mass/Vol] 133 mg/dL High 70-100 [facility], [place] Comment on above: Result Comment: Test performed by glucose meter. Results may be 10%-15% lower than serum/plasma values. (CLIA ID [id number]) Performed By: #### T SGL #### [facility] [address] [facility] [place] [address] [facility] #### LRC #### [facility] [address] [facility] [place] [address] Test performed by gl ucose meter. Results may be 10%-15% lower than serum/plasma values. (CLIA ID [id number]) Glucose [Mass/Vol] 106 mg/dL High 70-100 [facility], [place] Comment on above: Result Comment: Test performed by glucose meter. Results may be 10%-15% lower than serum/plasma values. (CLIA ID [id number]) Performed By: #### T SGL #### [facility] [address] [place] [address] [facility] #### LRC #### [facility] [address] [facility] [place] [address] Test performed by gl ucose meter. Results may be 10%-15% lower than serum/plasma values. (CLIA ID [id number]) Glucose [Mass/Vol] 101 mg/dL High 70-100 [facility] Comment on above: Result Comment: Test performed by glucose meter. Results may be 10%-15% lower than serum/plasma values. (CLIA ID [id number]) Performed By: #### T SGL #### [facility] [address] [place] [address] [facility] #### LRC #### [place] [address] [place] [address] Glucose [Mass/Vol] 85 mg/dL Normal 70-100 [facility] Comment on above: Result Comment: Test performed by glucose meter. Results may be 10%-15% lower than serum/plasma values. (CLIA ID [id number]) Performed By: #### T SGL #### [facility] [address] [place] [address] [facility] #### LRC #### [place] [address] [facility] [place] [address] Glucose [Mass/Vol] 95 mg/dL Normal 70-100 [facility] Comment on above: Result Comment: Test performed by glucose meter. Results may be 10%-15% lower than serum/plasma values. (CLIA ID [id number]) Performed By: #### T SGL #### [facility] [address] [place] [address] [facility] #### LRC #### [place] [address] [facility] [place] [address] Glucose [Mass/Vol] 99 mg/dL Normal 70-100 [facility] Comment on above: Result Comment: Test performed by glucose meter. Results may be 10%-15% lower than serum/plasma values. (CLIA ID [id number]) Performed By: #### T SGL #### [facility] [address] [facility] [place] [address] [facility] #### LRC #### [facility] [address] [facility] [place] [address] Glucose [Mass/Vol] 74 mg/dL Normal 70-100 [facility] Comment on above: Result Comment: Test performed by glucose meter. Results may be 10%-15% lower than serum/plasma values. (CLIA ID [id number]) Performed By: #### T SGL #### [facility] [address] [facility] [place] [address] [facility] #### LRC #### [facility] [address] [facility] [place] [address] Glucose [Mass/Vol] 71 mg/dL Normal 70-100 [facility] Comment on above: Result Comment: Test performed by glucose meter. Results may be 10%-15% lower than serum/plasma values. (CLIA ID [id number]) Performed By: #### H EMOG, HA1C2, PT, BMP3, LFT3 #### [facility] [address] [place] [facility] [address] Glucose [Mass/Vol] 94 mg/dL Normal 70-100 [facility] Comment on above: Result Comment: Test performed by glucose meter. Results may be 10%-15% lower than serum/plasma values. (CLIA ID [id number]) Performed By: #### H EMOG, HA1C2, PT, BMP3, LFT3 #### [facility] [address] [place] [place] [address] Glucose [Mass/Vol] 94 mg/dL Normal 70-100 [facility] Comment on above: Result Comment: Test performed by glucose meter. Results may be 10%-15% lower than serum/plasma values. (CLIA ID [id number]) Performed By: #### H EMOG, HA1C2, PT, BMP3, LFT3 #### [facility] [address] [place] [place] [address] Glucose [Mass/Vol] 78 mg/dL Normal 70-100 [facility] Comment on above: Result Comment: Test performed by glucose meter. Results may be 10%-15% lower than serum/plasma values. (CLIA ID [id number]) Performed By: #### H EMOG, HA1C2, PT, BMP3, LFT3 #### [place] [address] [address] [place], [place] Glucose [Mass/Vol] 100 mg/dL Normal 70-100 [facility] Comment on above: Result Comment: Test performed by glucose meter. Results may be 10%-15% lower than serum/plasma values. (CLIA ID [id number]) Performed By: #### H EMOG, HA1C2, PT, BMP3, LFT3 #### [place] [address] [place], [place] Hemogramon 12-17-2019 Erythrocyte distribution width (RBC) [Ratio] 14.4 % Normal 11.5-14.5 [facility] Comment on above: Performed By: #### H EMOG, HA1C2, PT, BMP3, LFT3 #### [place] [address] [place], [place] Hematocrit (Bld) [Volume fraction] 24.4 % Low 40.0-52.0 [facility] Comment on above: Performed By: #### H EMOG, HA1C2, PT, BMP3, LFT3 #### [place] [address] [place], [place] Hemoglobin (Bld) [Mass/Vol] 8.0 g/dL Low 13.0-18.0 [facility] Comment on above: Performed By: #### H EMOG, HA1C2, PT, BMP3, LFT3 #### [place] [address] [place], [place] MCH (RBC) [Entitic mass] 32.0 pg Normal 26.0-34.0 [facility] Comment on above: Performed By: #### H EMOG, HA1C2, PT, BMP3, LFT3 #### [place] [address] [place] MCHC (RBC) [Mass/Vol] 33.0 % Normal 32.0-36.0 [facility] Comment on above: Performed By: #### H EMOG, HA1C2, PT, BMP3, LFT3 #### [place] [address] [address] [place] MCV (RBC) [Entitic vol] 97.0 fL Normal 80.0-98.0 [facility] Comment on above: Performed By: #### H EMOG, HA1C2, PT, BMP3, LFT3 #### [place] [address] [address] [place] Platelet mean volume (Bld) [Entitic vol] 8.3 fL Normal 7.4-10.4 [facility] Comment on above: Performed By: #### H EMOG, HA1C2, PT, BMP3, LFT3 #### [place] [address] [address] [place], [place] Platelets (Bld) [#/Vol] 165 10*3/uL Normal 140-440 [facility] Comment on above: Performed By: #### H EMOG, HA1C2, PT, BMP3, LFT3 #### [place] [address] [address] [place], [place] RBC (Bld) [#/Vol] 2.51 10*6/uL Low 4.40-5.90 [facility] Comment on above: Performed By: #### H EMOG, HA1C2, PT, BMP3, LFT3 #### [address] WBC (Bld) [#/Vol] 11.3 10*3/uL High 3.6-10.7 [facility] Comment on above: Performed By: #### H EMOG, HA1C2, PT, BMP3, LFT3 #### [address] [place] Magnesiumon 12-17-2019 Magnesium [Mass/Vol] 2.3 mg/dL Normal 1.6-2.3 [facility] Comment on above: Performed By: #### H EMOG, HA1C2, PT, BMP3, LFT3 #### [place] [address] [place] [address] Magnesium [Mass/Vol] 2.3 mg/dL 1.6 - 2.3 mg/dL [facility] [place], [place] Otheron 12-17-2019 Interpretation and review of laboratory results Abnormal [facility] [place] Test Performed by [facility], [address] [place] [address] [facility] [place] Test Performed by [facility], [address] [place] [address] [facility], [place] POCT Glucoseon 12-17-2019 Glucose [Mass/Vol] 307 mg/dL High 70 - 100 mg/dL [facility] [place] Comment on above: Test performed by gl ucose meter. Results may be 10%-15% lower than serum/plasma values. (CLIA ID [id number]) Interpretation and review of laboratory results Abnormal [facility] [place] Test Performed by [facility], [facility] [address] [facility] [place] [address] [facility] [place], [place] Glucose [Mass/Vol] 207 mg/dL High 70 - 100 mg/dL [facility], [place] Comment on above: Test performed by gl ucose meter. Results may be 10%-15% lower than serum/plasma values. (CLIA ID [id number]) Interpretation and review of laboratory results Abnormal [facility] [place] Test Performed by [facility], [facility] [place] [address] [facility] Interpretation and review of laboratory results Abnormal [facility] Test Performed by [facility], [address] [place] [address] [facility] [place] Glucose [Mass/Vol] 166 mg/dL High 70 - 100 mg/dL [facility] [place] Comment on above: Test performed by gl ucose meter. Results may be 10%-15% lower than serum/plasma values. (CLIA ID [id number]) Glucose [Mass/Vol] 101 mg/dL High 70 - 100 mg/dL [facility] [place] Comment on above: Test performed by gl ucose meter. Results may be 10%-15% lower than serum/plasma values. (CLIA ID [id number]) Interpretation and review of laboratory results Abnormal [facility], [place] Test Performed by [facility], [address] [place] [address] [facility] [place] Glucose [Mass/Vol] 85 mg/dL 70 - 100 mg/dL [facility], [place] Comment on above: Test performed by gl ucose meter. Results may be 10%-15% lower than serum/plasma values. (CLIA ID [id number]) Test Performed by [facility], [address] [place] [address] [facility], [place] Glucose [Mass/Vol] 95 mg/dL 70 - 100 mg/dL [facility], [place] Comment on above: Test performed by gl ucose meter. Results may be 10%-15% lower than serum/plasma values. (CLIA ID [id number]) Test Performed by [facility], [address] [place] [address] [facility], [place] Glucose [Mass/Vol] 99 mg/dL 70 - 100 mg/dL [facility], [place] Comment on above: Test performed by gl ucose meter. Results may be 10%-15% lower than serum/plasma values. (CLIA ID [id number]) Test Performed by [facility], [address] [place] [address] [facility], [place] Glucose [Mass/Vol] 74 mg/dL 70 - 100 mg/dL [facility], [place] Comment on above: Test performed by gl ucose meter. Results may be 10%-15% lower than serum/plasma values. (CLIA ID [id number]) Test Performed by [facility], [address] [place] [address] [facility], [place] Glucose [Mass/Vol] 71 mg/dL 70 - 100 mg/dL [facility], [place] Comment on above: Test performed by gl ucose meter. Results may be 10%-15% lower than serum/plasma values. (CLIA ID [id number]) Test Performed by [facility], [address] [place] [address] [facility] [place] Glucose [Mass/Vol] 94 mg/dL 70 - 100 mg/dL [place] Comment on above: Test performed by gl ucose meter. Results may be 10%-15% lower than serum/plasma values. (CLIA ID [id number]) Test Performed by [facility], [address] [place] [address] [place] Glucose [Mass/Vol] 94 mg/dL 70 - 100 mg/dL [place] Comment on above: Test performed by gl ucose meter. Results may be 10%-15% lower than serum/plasma values. (CLIA ID [id number]) Test Performed by [facility], [address] [place] [address] [place] XR CHEST PORTABLEon 12-17-19 Robin, [facility] Incoming Radiology Results From [facility] - 12/17/2019 6:53 AM EDT Patient Name: DOUGALS CALLAWAY Jr ---Diagnostic Radiology--- Exam Date/Time 12/17/2019 06:52:59 EDT Exam CR Chest Portable Ordering Physician COLTON MARROQUIN Accession Number [id number] CPT4 Codes 49089 () Reason For Exam SOB Report HISTORY: Status post CABG Portable AP chest 0536 hours is compared to previous study 24 hours ago. FINDINGS: Continued mild atelectatic changes both lung bases. Removal of [place]-Iza catheter since last exam with remaining right internal jugular introducer sheath Pleural tubes, mild colonic dilatation with high position of hepatic flexure Report Dictated on Workstation: [id number] --- Final --- Dictated: 12/17/2019 5:55 am Dictating Physician: MD ENNIS WILLIAM Signed Date and Time: 12/17/2019 5:58 am Signed by: MD ENNIS WILLIAM Transcribed Date and Time: 12/17/2019 5:55 [place] Patient Name: DOUGLAS SIMON Jr ---Diagnostic Radiology--- Exam Date/Time 12/17/2019 06:52:59 EDT Exam CR Chest Portable Ordering Physician COLTON MARROQUIN Accession Number [id number] CPT4 Codes 90009 () Reason For Exam SOB Report HISTORY: Status post CABG Portable AP chest 0536 hours is compared to previous study 24 hours ago. FINDINGS: Continued mild atelectatic changes both lung bases. Removal of [place]-Iza catheter since last exam with remaining right internal jugular introducer sheath Pleural tubes, mild colonic dilatation with high position of hepatic flexure Report Dictated on Workstation: [id number] --- Final --- Dictated: 12/17/2019 5:55 am Dictating Physician: MD ENNIS WILLIAM Signed Date and Time: 12/17/2019 5:58 am Signed by: MD ENNIS WILLIAM Transcribed Date and Time: 12/17/2019 5:55 [place] Basic Metabolic Panelon 12-05 Calcium [Mass/Vol] 8.7 mg/dL Normal 8.4-10.4 [facility] Comment on above: Performed By: #### H EMOG, HA1C2, PT, BMP3, LFT3 #### [address] Glucose [Mass/Vol] 91 mg/dL Normal 70-100 [facility] Comment on above: Performed By: #### H EMOG, HA1C2, PT, BMP3, LFT3 #### [address] Urea nitrogen [Mass/Vol] 17 mg/dL Normal 7-20 [facility] Comment on above: Performed By: #### H EMOG, HA1C2, PT, BMP3, LFT3 #### [place] [address] [place], [place] Anion gap [Moles/Vol] 10 Normal [facility] Comment on above: Performed By: #### H EMOG, HA1C2, PT, BMP3, LFT3 #### [place] [address] [place], [place] CO2 [Moles/Vol] 25 mmol/L Normal 22-30 [facility] Comment on above: Performed By: #### H EMOG, HA1C2, PT, BMP3, LFT3 #### [place] [address] [place], [place] Creatinine [Mass/Vol] 0.79 mg/dL Normal 0.52-1.25 [facility] Comment on above: Performed By: #### H EMOG, HA1C2, PT, BMP3, LFT3 #### [facility] [address] [place], [place] GFR/1.73 sq M predicted among blacks MDRD (S/P/Bld) [Vol rate/Area] mL/min/{1.73_m2} Normal >60 [facility] Comment on above: Performed By: #### H EMOG, HA1C2, PT, BMP3, LFT3 #### [place] [address] [address] [place], [place] GFR/1.73 sq M predicted among non-blacks MDRD (S/P/Bld) [Vol rate/Area] mL/min/{1.73_m2} Normal >60 [facility] Comment on above: Result Comment: Sour ce- MDRD equation with creatinine calibration to IDMS(NKDEP) eGFR not recommended for drug dose adjustment Performed By: #### H EMOG, HA1C2, PT, BMP3, LFT3 #### [place] [address] [address] [place] Potassium [Moles/Vol] 4.3 mmol/L Normal 3.5-5.1 [facility] Comment on above: Performed By: #### H EMOG, HA1C2, PT, BMP3, LFT3 #### [place] [address] [address] [place] Chloride [Moles/Vol] 105 mmol/L Normal 98-107 [facility] Comment on above: Performed By: #### H EMOG, HA1C2, PT, BMP3, LFT3 #### [place] [address] [address] [place] Sodium [Moles/Vol] 141 mmol/L Normal 135-145 [facility] Comment on above: Performed By: #### H EMOG, HA1C2, PT, BMP3, LFT3 #### [place] [address] [address] [place] Anion gap [Moles/Vol] 10 mmol/L [place] Comment on above: Test Performed by [facility], [facility] [place] [address] Calcium [Mass/Vol] 8.7 mg/dL 8.4 - 10. 4 mg/dL [place] Comment on above: Test Performed by [facility], [facility] [place] [address] Chloride [Moles/Vol] 105 mmol/L 98 - 107 mmol/L [place] Comment on above: Test Performed by [employer] [facility], [facility] [place] [address] CO2 [Moles/Vol] 25 mmol/L 22 - 30 mmol/L [place] Comment on above: Test Performed by [facility], [address] [place] [address] Creatinine [Mass/Vol] 0.79 mg/dL 0.52 - 1.25 mg/dL [place] Comment on above: Test Performed by [facility], [facility] [place] [address] EGFR IF NonAfrican Faroese >60.0 >60 mL/min [place] Comment on above: Test Performed by [facility], [address] [place] [address] Source- MDRD equation with creatinine calibration to IDKS(NKDEP) eGFR not recommended for drug dose adjustment GFR/1.73 sq M predicted among blacks MDRD (S/P/Bld) [Vol rate/Area] mL/min/{1.73_m2} >60 mL/min [place] Comment on above: Test Performed by [employer] [facility], [facility] [address] Glucose [Mass/Vol] 91 mg/dL 70 - 100 mg/dL [place] Comment on above: Test Performed by [employer] [facility], [facility] [place] [address] Potassium [Moles/Vol] 4.3 mmol/L 3.5 - 5.1 mmol/L [place] Comment on above: Test Performed by [employer] [facility], [facility] [place] [address] Sodium [Moles/Vol] 141 mmol/L 135 - 145 mmol/L [place] Urea nitrogen [Mass/Vol] 17 mg/dL 7 - 20 mg/dL [place] Comment on above: Test Performed by [facility], [facility] [place] [address] CBCon 12-16-2019 Erythrocyte distribution width (RBC) [Ratio] 13.6 % 11.5 - 14.5 % [place] Comment on above: Test Performed by [facility], [facility] [place] [address] Hematocrit (Bld) [Volume fraction] 23.1 % Low 40 - 52 % [place] Comment on above: Test Performed by [facility], [facility] [place] [address] Hemoglobin (Bld) [Mass/Vol] 7.9 g/dL Low 13 - 18 g/dL [place] Comment on above: Test Performed by [facility], [facility] [place] [address] Interpretation and review of laboratory results Abnormal [place] MCH (RBC) [Entitic mass] 32.5 pg 26 - 34 pg [place] Comment on above: Test Performed by [facility], [facility] [place] [address] MCHC (RBC) [Mass/Vol] 34.1 % 32 - 36 % [place] Comment on above: Test Performed by [facility], [facility] [place] [address] MCV (RBC) [Entitic vol] 95.0 fL 80 - 98 fL [place] Comment on above: Test Performed by [facility], [facility] [place] [address] Platelet mean volume (Bld) [Entitic vol] 8.1 fL 7.4 - 10.4 fL [place] Comment on above: Test Performed by [facility], [facility] [place] [address] Platelets (Bld) [#/Vol] 138 10*3/uL Low 140 - 440 10*3/uL [place] Comment on above: Test Performed by [facility], [facility] [address] RBC (Bld) [#/Vol] 2.43 10*6/uL Low 4.4 - 5.9 10*6/uL [place] Comment on above: Test Performed by [facility], [address] [place] [address] WBC (Bld) [#/Vol] 10.5 10*3/uL 3.6 - 10.7 10*3/uL [place] Test Performed by [facility], [address] [place] [address] [place] CR Chest Portableon 12-16-19 20 CR Chest Portable Patient Name: DOUGLAS SIMON Jr Diagnostic Radiology Exam Date/Time 12/16/2019 06:42:08 EDT Exam CR Chest Portable Ordering Physician COLTON MARROQUIN Accession Number [id number] CPT4 Codes 39120 () Reason For Exam SOB Report INDICATION:Shortness of breath. PORTABLE CHEST: COMPARISON: 12/15/2019. Lung volumes are shallow. Mild worsening of the left lower lung atelectasis. Mild elevation of the right hemidiaphragm is stable. Heart and mediastinal contours are stable. Endotracheal tube has been removed. [place] catheter is in satisfactory position. No pneumothorax. IMPRESSION: Removal of the endotracheal tube. Mild worsening left lower lung atelectasis. Report Dictated on Final Dictated: 12/16/2019 9:23 am Dictating Physician: MD TURK LAURA Signed Date and Time: 12/16/2019 9:24 am Signed by: MD TURK LAURA Transcribed Date and Time: 12/16/2019 9:23 Normal [facility] EKG 12 Leadon 12-16-2019 [facility] Test Date: 2019-12-15 Pat Name: Douglas Callaway [facility] Gender: M [employer] Operator: SOPHY : 1955 Requested By: JOSHUA TA Order Number: [id number] Reading MD: Morgan Sanchez Measurements Intervals [place] Rate: 118 P: 24 NJ: 140 QRS: 17 QRSD: 82 T: -13 QT: 318 QTc: 446 Interpretive Statements Sinus tachycardia Borderline T wave abnormalities Electronically Signed On 12-16-2019 7:57:06 EDT by Counts include 234 beds at the [facility], [facility], [facility] Incoming Cardiology Results From [facility] - 12/16/2019 7:58 AM EDT [facility] Test Date: 2019-12-15 Pat Name: Douglas Callaway Department: [facility] Room: 1HLU Gender: M Digital [employer] Operator: SOPHY : 1955 Requested By: JOSHUA TA Order Number: [id number] Reading MD: Morgan Sanchez Measurements Intervals [place] Rate: 118 P: 24 NJ: 140 QRS: 17 QRSD: 82 T: -13 QT: 318 QTc: 446 Interpretive Statements Sinus tachycardia Borderline T wave abnormalities Electronically Signed On 12-16-2019 7:57:06 EDT by Counts include 234 beds at the [facility], [place] EKG 12 leadon 12-16-2019 [facility] Test Date: 2019-12-16 Pat Name: Douglas Callaway Department: [facility] Room: [id number] Gender: M Digital [employer] Operator: SOPHY : 1955 Requested By: COLTON MARROQUIN Order Number: [id number] Reading MD: Morgan Sanchez Measurements Intervals [place] Rate: 130 P: 44 NJ: 130 QRS: 36 QRSD: 80 T: -13 QT: 311 QTc: 458 Interpretive Statements Sinus tachycardia Borderline T abnormalities, inferior leads Electronically Signed On 12-16-2019 10:55:45 EDT by Counts include 234 beds at the [facility], [facility], [facility] Incoming Cardiology Results From [facility] - 12/16/2019 10:56 AM EDT [facility] Test Date: 2019-12-16 Pat Name: Douglas Callaway Department: [facility] Room: [id number] 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 Results may be 10%-15% lower than serum/plasma values. (CLIA ID [id number]) Performed By: #### H EMOG, HA1C2, PT, BMP3, LFT3 #### [facility] [address] [place] [address] Glucose [Mass/Vol] 133 mg/dL [address] Comment on above: Result Comment: Test performed by glucose meter. Results may be 10%-15% lower than serum/plasma values. (CLIA ID [id number]) Performed By: #### H EMOG, HA1C2, PT, BMP3, LFT3 #### [employer] [address] [place] [address] Glucose [Mass/Vol] 174 mg/dL [address] Comment on above: Result Comment: Test performed by glucose meter. Results may be 10%-15% lower than serum/plasma values. (CLIA ID [id number]) Performed By: #### H EMOG, HA1C2, PT, BMP3, LFT3 #### [employer] [address] [place] [address] Glucose [Mass/Vol] 197 mg/dL [address] Comment on above: Result Comment: Test performed by glucose meter. Results may be 10%-15% lower than serum/plasma values. (CLIA ID [id number]) Performed By: #### H EMOG, HA1C2, PT, BMP3, LFT3 #### [employer] [address] [place] [address] Glucose [Mass/Vol] 174 mg/dL [address] Comment on above: Result Comment: Test performed by glucose meter. Results may be 10%-15% lower than serum/plasma values. (CLIA ID [id number]) Performed By: #### H EMOG, HA1C2, PT, BMP3, LFT3 #### [facility] [address] [place] [address] Glucose [Mass/Vol] 104 mg/dL High 70-100 [facility] Comment on above: Result Comment: Test performed by glucose meter. Results may be 10%-15% lower than serum/plasma values. (CLIA ID [id number]) Performed By: #### H EMOG, HA1C2, PT, BMP3, LFT3 #### [facility] [address] [place] [address] Glucose [Mass/Vol] 75 mg/dL Normal 70-100 [place] Comment on above: Result Comment: Test performed by glucose meter. Results may be 10%-15% lower than serum/plasma values. (CLIA ID [id number]) Performed By: #### H EMOG, HA1C2, PT, BMP3, LFT3 #### [place] [address] [place] [address] Test performed by gl ucose meter. Results may be 10%-15% lower than serum/plasma values. (CLIA ID [id number]) Glucose [Mass/Vol] 65 mg/dL Low 70-100 [facility] Comment on above: Result Comment: Test performed by glucose meter. Results may be 10%-15% lower than serum/plasma values. (CLIA ID [id number]) Performed By: #### H EMOG, HA1C2, PT, BMP3, LFT3 #### [facility] [address] [place] [address] Glucose [Mass/Vol] 71 mg/dL Normal 70-100 [facility] Comment on above: Result Comment: Test performed by glucose meter. Results may be 10%-15% lower than serum/plasma values. (CLIA ID [id number]) Performed By: #### H EMOG, HA1C2, PT, BMP3, LFT3 #### [facility] [address] [place] [address] Glucose [Mass/Vol] 97 mg/dL Normal 70-100 [facility] Comment on above: Result Comment: Test performed by glucose meter. Results may be 10%-15% lower than serum/plasma values. (CLIA ID [id number]) Performed By: #### H EMOG, HA1C2, PT, BMP3, LFT3 #### [facility] [address] [place] [address] Glucose [Mass/Vol] 115 mg/dL High 70-100 [facility] Comment on above: Result Comment: Test performed by glucose meter. Results may be 10%-15% lower than serum/plasma values. (CLIA ID [id number]) Performed By: #### H EMOG, HA1C2, PT, BMP3, LFT3 #### [email or web address] [facility] [address] [place] [address] Glucose [Mass/Vol] 134 mg/dL High 70-100 [facility] Comment on above: Result Comment: Test performed by glucose meter. Results may be 10%-15% lower than serum/plasma values. (CLIA ID [id number]) Performed By: #### H EMOG, HA1C2, PT, BMP3, LFT3 #### [email or web address] [place] [address] [place] [address] Glucose [Mass/Vol] 119 mg/dL High 70-100 [facility] Comment on above: Result Comment: Test performed by glucose meter. Results may be 10%-15% lower than serum/plasma values. (CLIA ID [id number]) Performed By: #### H EMOG, HA1C2, PT, BMP3, LFT3 #### [email or web address] [facility] [address] [place] [address] Glucose [Mass/Vol] 72 mg/dL Normal 70-100 [facility] Comment on above: Result Comment: Test performed by glucose meter. Results may be 10%-15% lower than serum/plasma values. (CLIA ID [id number]) Performed By: #### H EMOG, HA1C2, PT, BMP3, LFT3 #### [email or web address] [facility] [address] [place] [address] Glucose [Mass/Vol] 91 mg/dL Normal 70-100 [facility] Comment on above: Result Comment: Test performed by glucose meter. Results may be 10%-15% lower than serum/plasma values. (CLIA ID [id number]) Performed By: #### H EMOG, HA1C2, PT, BMP3, LFT3 #### [facility] [email or web address] [facility] [address] [place] [address] Glucose [Mass/Vol] 76 mg/dL Normal 70-100 [facility] Comment on above: Result Comment: Test performed by glucose meter. Results may be 10%-15% lower than serum/plasma values. (CLIA ID [id number]) Performed By: #### H EMOG, HA1C2, PT, BMP3, LFT3 #### [email or web address] [address] [address] [place] [address] Glucose [Mass/Vol] 90 mg/dL Normal 70-100 [facility] Comment on above: Result Comment: Test performed by glucose meter. Results may be 10%-15% lower than serum/plasma values. (CLIA ID [id number]) Performed By: #### H EMOG, HA1C2, PT, BMP3, LFT3 #### [facility] [email or web address] [address] [address] [place] [address] Glucose [Mass/Vol] 82 mg/dL Normal 70-100 [facility] Comment on above: Result Comment: Test performed by glucose meter. Results may be 10%-15% lower than serum/plasma values. (CLIA ID [id number]) Performed By: #### H EMOG, HA1C2, PT, BMP3, LFT3 #### [email or web address] [facility] [address] [place] [address] Glucose [Mass/Vol] 91 mg/dL Normal 70-100 [facility] Comment on above: Result Comment: Test performed by glucose meter. Results may be 10%-15% lower than serum/plasma values. (CLIA ID [id number]) Performed By: #### H EMOG, HA1C2, PT, BMP3, LFT3 #### [email or web address] [facility] [address] [place] [address] Glucose [Mass/Vol] 90 mg/dL Normal 70-100 [facility] Comment on above: Result Comment: Test performed by glucose meter. Results may be 10%-15% lower than serum/plasma values. (CLIA ID [id number]) Performed By: #### H EMOG, HA1C2, PT, BMP3, LFT3 #### [address] [place] [address] Glucose [Mass/Vol] 97 mg/dL Normal 70-100 [facility] Comment on above: Result Comment: Test performed by glucose meter. Results may be 10%-15% lower than serum/plasma values. (CLIA ID [id number]) Performed By: #### H EMOG, HA1C2, PT, BMP3, LFT3 #### [address] [place] [address] Glucose [Mass/Vol] 98 mg/dL Normal 70-100 [facility] Comment on above: Result Comment: Test performed by glucose meter. Results may be 10%-15% lower than serum/plasma values. (CLIA ID [id number]) Performed By: #### H EMOG, HA1C2, PT, BMP3, LFT3 #### [facility] [email or web address] [address] [address] [place] [address] Glucose [Mass/Vol] 109 mg/dL High 70-100 [facility] Comment on above: Result Comment: Test performed by glucose meter. Results may be 10%-15% lower than serum/plasma values. (CLIA ID [id number]) Performed By: #### H EMOG, HA1C2, PT, BMP3, LFT3 #### [address] [address] [place] [address] Glucose [Mass/Vol] 109 mg/dL High 70-100 [facility] Comment on above: Result Comment: Test performed by glucose meter. Results may be 10%-15% lower than serum/plasma values. (CLIA ID [id number]) Performed By: #### H EMOG, HA1C2, PT, BMP3, LFT3 #### [facility] [address] [place], [place] Glucose [Mass/Vol] 113 mg/dL High 70-100 [facility] Comment on above: Result Comment: Test performed by glucose meter. Results may be 10%-15% lower than serum/plasma values. (CLIA ID [id number]) Performed By: #### H EMOG, HA1C2, PT, BMP3, LFT3 #### [place] [address] [place], [place] Hemogramon 12-16-2019 Erythrocyte distribution width (RBC) [Ratio] 13.6 % Normal 11.5-14.5 [facility] Comment on above: Performed By: #### H EMOG, HA1C2, PT, BMP3, LFT3 #### [place] [address] [place], [place] Hematocrit (Bld) [Volume fraction] 23.1 % Low 40.0-52.0 [facility] Comment on above: Performed By: #### H EMOG, HA1C2, PT, BMP3, LFT3 #### [place] [address] [address] [place], [place] Hemoglobin (Bld) [Mass/Vol] 7.9 g/dL Low 13.0-18.0 [facility] Comment on above: Performed By: #### H EMOG, HA1C2, PT, BMP3, LFT3 #### [address] [address] [place], [place] MCH (RBC) [Entitic mass] 32.5 pg Normal 26.0-34.0 [facility] Comment on above: Performed By: #### H EMOG, HA1C2, PT, BMP3, LFT3 #### [address] MCHC (RBC) [Mass/Vol] 34.1 % Normal 32.0-36.0 [facility] Comment on above: Performed By: #### H EMOG, HA1C2, PT, BMP3, LFT3 #### [address] [place] [address] [place], [place] MCV (RBC) [Entitic vol] 95.0 fL Normal 80.0-98.0 [facility] Comment on above: Performed By: #### H EMOG, HA1C2, PT, BMP3, LFT3 #### [address] Platelet mean volume (Bld) [Entitic vol] 8.1 fL Normal 7.4-10.4 [facility] Comment on above: Performed By: #### H EMOG, HA1C2, PT, BMP3, LFT3 #### [address] Platelets (Bld) [#/Vol] 138 10*3/uL Low 140-440 [facility] Comment on above: Performed By: #### H EMOG, HA1C2, PT, BMP3, LFT3 #### [address] RBC (Bld) [#/Vol] 2.43 10*6/uL Low 4.40-5.90 [facility] Comment on above: Performed By: #### H EMOG, HA1C2, PT, BMP3, LFT3 #### [address] WBC (Bld) [#/Vol] 10.5 10*3/uL Normal 3.6-10.7 [facility] Comment on above: Performed By: #### H EMOG, HA1C2, PT, BMP3, LFT3 #### [address] Magnesiumon 12-16-2019 Magnesium [Mass/Vol] 2.2 mg/dL Normal 1.6-2.3 [facility] Comment on above: Performed By: #### H EMOG, HA1C2, PT, BMP3, LFT3 #### [address] Magnesium [Mass/Vol] 2.2 mg/dL 1.6 - 2.3 mg/dL [facility], [place] Otheron 12-16-2019 Test Performed by [facility], [facility] [place] [address] [facility], [place] Test Performed by [facility], [address] [place] [address] [facility], [place] Test Performed by [facility], [address] [place] [address] [facility], [place] POCT Glucoseon 12-16-2019 Glucose [Mass/Vol] 78 mg/dL 70 - 100 mg/dL [place] Comment on above: Test performed by gl ucose meter. Results may be 10%-15% lower than serum/plasma values. (CLIA ID [id number]) Glucose [Mass/Vol] 100 mg/dL 70 - 100 mg/dL [place] Comment on above: Test performed by gl ucose meter. Results may be 10%-15% lower than serum/plasma values. (CLIA ID [id number]) Test Performed by [facility], [address] [facility] [place] [address] [place] Glucose [Mass/Vol] 107 mg/dL High 70 - 100 mg/dL [place] Comment on above: Test performed by gl ucose meter. Results may be 10%-15% lower than serum/plasma values. (CLIA ID [id number]) Interpretation and review of laboratory results Abnormal [facility], [place] Test Performed by [facility], [address] [facility] [place] [address] [place] Glucose [Mass/Vol] 133 mg/dL High 70 - 100 mg/dL [place] Comment on above: Test performed by gl ucose meter. Results may be 10%-15% lower than serum/plasma values. (CLIA ID [id number]) Interpretation and review of laboratory results Abnormal [facility], [place] Test Performed by [facility], [address] [place] [address] [place] Glucose [Mass/Vol] 174 mg/dL High 70 - 100 mg/dL [place] Comment on above: Test performed by gl ucose meter. Results may be 10%-15% lower than serum/plasma values. (CLIA ID [id number]) Interpretation and review of laboratory results Abnormal [facility] [place] Test Performed by [facility], [address] [place] [address] [facility] [place] Glucose [Mass/Vol] 197 mg/dL High 70 - 100 mg/dL [facility] [place] Comment on above: Test performed by gl ucose meter. Results may be 10%-15% lower than serum/plasma values. (CLIA ID [id number]) Interpretation and review of laboratory results Abnormal [facility] [place] Test Performed by [facility], [address] [place] [address] [facility] [place] Glucose [Mass/Vol] 174 mg/dL High 70 - 100 mg/dL [facility] [place] Comment on above: Test performed by gl ucose meter. Results may be 10%-15% lower than serum/plasma values. (CLIA ID [id number]) Interpretation and review of laboratory results Abnormal [facility] [place] Test Performed by [facility], [address] [place] [address] [facility] [place] Glucose [Mass/Vol] 104 mg/dL High 70 - 100 mg/dL [facility] [place] Comment on above: Test performed by gl ucose meter. Results may be 10%-15% lower than serum/plasma values. (CLIA ID [id number]) Interpretation and review of laboratory results Abnormal [facility] [place] Test Performed by [facility], [address], [place] [address] [facility] [place] Test Performed by [facility], [address] [place] [address] [facility] [place] Glucose [Mass/Vol] 65 mg/dL Low 70 - 100 mg/dL [facility] [place] Comment on above: Test performed by gl ucose meter. Results may be 10%-15% lower than serum/plasma values. (CLIA ID [id number]) Interpretation and review of laboratory results Abnormal [facility] [place] Test Performed by [facility], [address] [place] [address] [facility] [place] Glucose [Mass/Vol] 71 mg/dL 70 - 100 mg/dL [facility] [place] Comment on above: Test performed by gl ucose meter. Results may be 10%-15% lower than serum/plasma values. (CLIA ID [id number]) Test Performed by [facility], [address] [place] [address] [facility] [place] Glucose [Mass/Vol] 97 mg/dL 70 - 100 mg/dL [facility] [place] Comment on above: Test performed by gl ucose meter. Results may be 10%-15% lower than serum/plasma values. (CLIA ID [id number]) Test Performed by [facility], [address] [place] [address] [facility] [place] Glucose [Mass/Vol] 115 mg/dL High 70 - 100 mg/dL [facility] [place] Comment on above: Test performed by gl ucose meter. Results may be 10%-15% lower than serum/plasma values. (CLIA ID [id number]) Interpretation and review of laboratory results Abnormal [facility] [place] Test Performed by [facility], [address] [place] [address] [facility] [place] Glucose [Mass/Vol] 134 mg/dL High 70 - 100 mg/dL [facility] [place] Comment on above: Test performed by gl ucose meter. Results may be 10%-15% lower than serum/plasma values. (CLIA ID [id number]) Interpretation and review of laboratory results Abnormal [facility] [place] Test Performed by [employer] [facility], [address] [place] [address] [facility] [place] Glucose [Mass/Vol] 119 mg/dL High 70 - 100 mg/dL [facility] [place] Comment on above: Test performed by gl ucose meter. Results may be 10%-15% lower than serum/plasma values. (CLIA ID [id number]) Interpretation and review of laboratory results Abnormal [facility] [place] Test Performed by [employer] [facility], [address] [place] [address] [facility] [place] Glucose [Mass/Vol] 72 mg/dL 70 - 100 mg/dL [facility] [place] Comment on above: Test performed by gl ucose meter. Results may be 10%-15% lower than serum/plasma values. (CLIA ID [id number]) Test Performed by [facility], [address] [place] [address] [facility], [place] Glucose [Mass/Vol] 91 mg/dL 70 - 100 mg/dL [facility], [place] Comment on above: Test performed by gl ucose meter. Results may be 10%-15% lower than serum/plasma values. (CLIA ID [id number]) Test Performed by [facility], [address] [place] [address] [facility], [place] Glucose [Mass/Vol] 76 mg/dL 70 - 100 mg/dL [facility], [place] Comment on above: Test performed by gl ucose meter. Results may be 10%-15% lower than serum/plasma values. (CLIA ID [id number]) Test Performed by [facility], [address] [place] [address] [facility], [place] Glucose [Mass/Vol] 90 mg/dL 70 - 100 mg/dL [facility], [place] Comment on above: Test performed by gl ucose meter. Results may be 10%-15% lower than serum/plasma values. (CLIA ID [id number]) Test Performed by [facility], [address] [place] [address] [facility], [place] Glucose [Mass/Vol] 82 mg/dL 70 - 100 mg/dL [facility], [place] Comment on above: Test performed by gl ucose meter. Results may be 10%-15% lower than serum/plasma values. (CLIA ID [id number]) Test Performed by [facility], [address] [place] [address] [facility] [place], [place] Glucose [Mass/Vol] 91 mg/dL 70 - 100 mg/dL [facility], [place] Comment on above: Test performed by gl ucose meter. Results may be 10%-15% lower than serum/plasma values. (CLIA ID [id number]) Test Performed by [facility], [address] [place] [address] [place], [place] Glucose [Mass/Vol] 90 mg/dL 70 - 100 mg/dL [place] Comment on above: Test performed by gl ucose meter. Results may be 10%-15% lower than serum/plasma values. (CLIA ID [id number]) Test Performed by [facility], [address] [place] [address] [place] Glucose [Mass/Vol] 97 mg/dL 70 - 100 mg/dL [place] Comment on above: Test performed by gl ucose meter. Results may be 10%-15% lower than serum/plasma values. (CLIA ID [id number]) Test Performed by [facility], [address] [place] [address] [place] Glucose [Mass/Vol] 98 mg/dL 70 - 100 mg/dL [place] Comment on above: Test performed by gl ucose meter. Results may be 10%-15% lower than serum/plasma values. (CLIA ID [id number]) Glucose [Mass/Vol] 75 mg/dL 70 - 100 mg/dL [place] Comment on above: Test performed by gl ucose meter. Results may be 10%-15% lower than serum/plasma values. (CLIA ID [id number]) XR CHEST PORTABLEon 12-16-19 20 Robin, [facility] Incoming Radiology Results From [facility] - 12/16/2019 9:26 AM EDT Patient Name: DOUGLAS CALLAWAY Jr ---Diagnostic Radiology--- Exam Date/Time 12/16/2019 06:42:08 EDT Exam CR Chest Portable Ordering Physician COLTON MARROQUIN Accession Number [id number] CPT4 Codes 26592 () Reason For Exam SOB Report INDICATION:Shortness of breath. PORTABLE CHEST: COMPARISON: 12/15/2019. Lung volumes are shallow. Mild worsening of the left lower lung atelectasis. Mild elevation of the right hemidiaphragm is stable. Heart and mediastinal contours are stable. Endotracheal tube has been removed. Louisville-Iza catheter is in satisfactory position. No pneumothorax. IMPRESSION: Removal of the endotracheal tube. Mild worsening left lower lung atelectasis. Report Dictated on --- Final --- Dictated: 12/16/2019 9:23 am Dictating Physician: MD TURK LAURA Signed Date and Time: 12/16/2019 9:24 am Signed by: MD TURK LAURA Transcribed Date and Time: 12/16/2019 9:23 [place] Patient Name: DOUGLAS SIMON Jr ---Diagnostic Radiology--- Exam Date/Time 12/16/2019 06:42:08 EDT Exam CR Chest Portable Ordering Physician COLTON MARROQUIN Accession Number [id number] CPT4 Codes 27217 () Reason For Exam SOB Report INDICATION:Shortness of breath. PORTABLE CHEST: COMPARISON: 12/15/2019. Lung volumes are shallow. Mild worsening of the left lower lung atelectasis. Mild elevation of the right hemidiaphragm is stable. Heart and mediastinal contours are stable. Endotracheal tube has been removed. Louisville-Iza catheter is in satisfactory position. No pneumothorax. IMPRESSION: Removal of the endotracheal tube. Mild worsening left lower lung atelectasis. Report Dictated on --- Final --- Dictated: 12/16/2019 9:23 am Dictating Physician: MD TURK LAURA Signed Date and Time: 12/16/2019 9:24 am Signed by: MD TURK LAURA Transcribed Date and Time: 12/16/2019 9:23 [place] Arterial Blood Gaseson 12-14 CO2 [Moles/Vol] 25.5 mmol/L Normal 23.0-27.0 [facility] Comment on above: Performed By: #### I BILLY JAIMES ####[address] [place] [address] HCO3 (Bld) [Moles/Vol] 24.2 mmol/L Normal 21.0-25.0 [facility] Comment on above: Performed By: #### I BILLY JAIEMS ####[facility] [place], [place] Hemoglobin (Bld) [Mass/Vol] 8.3 g/dL Normal ScreenOnly [facility] Comment on above: Performed By: #### I BILLY JAIMES ####[id number] [place], [place] Oxygen (Bld) [Partial pressure] 373.8 mm[Hg] High 80.0-100.0 [facility] Comment on above: Performed By: #### I BILLY JAIMES ####[address] Oxygen saturation in Blood 98.6 % Normal 95.0-100.0 [facility] Comment on above: Performed By: #### I BILLY JAIMES ####[id number] [place], [place] pCO2 40.3 mm[Hg] Normal 35.0-45.0 [facility] Comment on above: Performed By: #### I BILLY JAIMES ####[address] pH (Bld) 7.397 Normal 7.350-7.450 [facility] Comment on above: Performed By: #### I BILLY JAIMES ####[address] Std Base Excess -0.6 mmol/L Normal -3.0-3.0 [facility] Comment on above: Performed By: #### I AB FIONAG ####[address] FIO2 No data Normal [facility] Comment on above: Performed By: #### I BILLY JAIMES ####[address] Basic Metabolic Panelon 12-05-2019 Anion gap [Moles/Vol] 12 Normal [facility] Comment on above: Performed By: #### H EMOG, PT/AP, BMP3, MG3, PHOS3 ####[address] Calcium [Mass/Vol] 8.8 mg/dL Normal 8.4-10.4 [facility] Comment on above: Performed By: #### H EMOG, PT/AP, BMP3, MG3, PHOS3 ####[address] [place], [place] CO2 [Moles/Vol] 22 mmol/L Normal 22-30 [facility] Comment on above: Performed By: #### H EMOG, PT/AP, BMP3, MG3, PHOS3 ####[address] [place], [place] Glucose [Mass/Vol] 93 mg/dL Normal 70-100 [facility] Comment on above: Performed By: #### H EMOG, PT/AP, BMP3, MG3, PHOS3 ####[address] [address] [place], [place] Urea nitrogen [Mass/Vol] 19 mg/dL Normal 7-20 [facility] Comment on above: Performed By: #### H EMOG, PT/AP, BMP3, MG3, PHOS3 ####[address] [place], [place] Creatinine [Mass/Vol] 0.95 mg/dL Normal 0.52-1.25 [facility] Comment on above: Performed By: #### H EMOG, PT/AP, BMP3, MG3, PHOS3 ####[address] [place], [place] GFR/1.73 sq M predicted among blacks MDRD (S/P/Bld) [Vol rate/Area] mL/min/{1.73_m2} Normal >60 [facility] Comment on above: Performed By: #### H EMOG, PT/AP, BMP3, MG3, PHOS3 ####[address] [place], [place] GFR/1.73 sq M predicted among non-blacks MDRD (S/P/Bld) [Vol rate/Area] mL/min/{1.73_m2} Normal >60 [facility] Comment on above: Result Comment: Sour ce- MDRD equation with creatinine calibration to IDMS(NKDEP) eGFR not recommended for drug dose adjustment Performed By: #### H EMOG, PT/AP, BMP3, MG3, PHOS3 ####[facility] [id number] [place] [address] Potassium [Moles/Vol] 3.2 mmol/L Low 3.5-5.1 [facility] Comment on above: Performed By: #### H EMOG, PT/AP, BMP3, MG3, PHOS3 ####[facility] [address] [place] [address] Sodium [Moles/Vol] 142 mmol/L Normal 135-145 [facility] Comment on above: Performed By: #### H EMOG, PT/AP, BMP3, MG3, PHOS3 ####[facility] [id number] [place] [address] Chloride [Moles/Vol] 108 mmol/L High 98-107 [facility] Comment on above: Performed By: #### H EMOG, PT/AP, BMP3, MG3, PHOS3 ####[facility] [address] [place] [address] Anion gap [Moles/Vol] 12 mmol/L [place] Comment on above: Test Performed by [facility], [facility] [place] [address] Calcium [Mass/Vol] 8.8 mg/dL 8.4 - 10. 4 mg/dL [place] Comment on above: Test Performed by [facility], [facility] [place] [address] Chloride [Moles/Vol] 108 mmol/L High 98 - 107 mmol/L [place] Comment on above: Test Performed by [facility], [facility] [place] [address] CO2 [Moles/Vol] 22 mmol/L 22 - 30 mmol/L [place] Comment on above: Test Performed by [facility], [facility] [place] [address] Creatinine [Mass/Vol] 0.95 mg/dL 0.52 - 1.25 mg/dL [place] Comment on above: Test Performed by [employer] [facility], [facility] [address] EGFR IF NonAfrican Faroese >60.0 >60 mL/min [place] Comment on above: Test Performed by [employer] [facility], [facility] [place] [address] Source- MDRD equation with creatinine calibration to IDMS(NKDEP) eGFR not recommended for drug dose adjustment GFR/1.73 sq M predicted among blacks MDRD (S/P/Bld) [Vol rate/Area] mL/min/{1.73_m2} >60 mL/min [place] Comment on above: Test Performed by [employer] [facility], [facility] [place] [address] Glucose [Mass/Vol] 93 mg/dL 70 - 100 mg/dL [place] Comment on above: Test Performed by [employer] [facility], [facility] [place] [address] Potassium [Moles/Vol] 3.2 mmol/L Low 3.5 - 5.1 mmol/L [place] Comment on above: Test Performed by [facility], [facility] [address] Sodium [Moles/Vol] 142 mmol/L 135 - 145 mmol/L [place] Urea nitrogen [Mass/Vol] 19 mg/dL 7 - 20 mg/dL [place] Comment on above: Test Performed by [employer], [facility] [address] Blood Gas, Arterialon 2019 Base Excess, Arterial -0.6 mmol/L -3 - 3 mmol/L [place] Comment on above: Test Performed by [employer] [facility], [facility] [address] HCO3, Arterial 24.2 mmol/L 21 - 25 mmol/L [place] Comment on above: Test Performed by [facility] [facility], [facility] [address] Hemoglobin (Bld) [Mass/Vol] 8.3 g/dL ScreenOnly [place] Interpretation and review of laboratory results Abnormal [place] Oxygen saturation in Blood 98.6 % 95 - 100 % [place] Comment on above: Test Performed by [facility] [email or web address], [address] [facility] [place] [address] pCO2, Arterial 40.3 mm[Hg] 35 - 45 mm[Hg] [place] Comment on above: Test Performed by [employer] [facility], [address] [facility] [place] [place] [address] pH, Arterial 7.397 [place] Comment on above: Test Performed by [employer] [facility], [address] [facility] [place] [address] pO2, Arterial 373.8 mm[Hg] High 80 - 100 mm[Hg] [place] Comment on above: Test Performed by [employer] [facility], [address] [facility] [place] [address] Sodium [Moles/Vol] No data [place] Comment on above: Test Performed by [employer] [facility], [facility] [address] [facility] [place] [address] TCO2, Arterial 25.5 mmol/L 23 - 27 mmol/L [place] Comment on above: Test Performed by [employer] [facility], [facility] [address] [facility] [place] [address] Test Performed by [facility], [place] [address] [place] CBCon 12-15-2019 Erythrocyte distribution width (RBC) [Ratio] 13.9 % 11.5 - 14.5 % [place] Comment on above: Test Performed by [employer] [facility], [facility] [address] [facility] [place] [address] Hematocrit (Bld) [Volume fraction] 23.3 % Low 40 - 52 % [place] Comment on above: Test Performed by [employer] [facility], [address] [facility] [place] [address] Hemoglobin (Bld) [Mass/Vol] 7.9 g/dL Low 13 - 18 g/dL [place] Comment on above: Test Performed by [employer] [facility], [address] [place] [address] REPEATED Interpretation and review of laboratory results Abnormal [place] MCH (RBC) [Entitic mass] 32.5 pg 26 - 34 pg [place] Comment on above: Test Performed by [facility], [address] [place] [id number] MCHC (RBC) [Mass/Vol] 34.0 % 32 - 36 % [place] Comment on above: Test Performed by [facility], [address] [place] [address] MCV (RBC) [Entitic vol] 95.6 fL 80 - 98 fL [place] Comment on above: Test Performed by [facility], [address] [place] [address] Platelet mean volume (Bld) [Entitic vol] 7.4 fL 7.4 - 10.4 fL [place] Comment on above: Test Performed by [facility], [address] [place] [address] Platelets (Bld) [#/Vol] 105 10*3/uL Low 140 - 440 10*3/uL [place] Comment on above: Test Performed by [facility], [address] [place] [address] RBC (Bld) [#/Vol] 2.43 10*6/uL Low 4.4 - 5.9 10*6/uL [place] Comment on above: Test Performed by [facility], [address] [place] [address] WBC (Bld) [#/Vol] 12.0 10*3/uL High 3.6 - 10.7 10*3/uL [place] Test Performed by [facility], [address] [place] [address] [place] CR Chest Portableon 12-15-19 20 CR Chest Portable Patient Name: DOUGLAS SIMON Jr Diagnostic Radiology Exam Date/Time 12/15/2019 13:23:36 EDT Exam CR Chest Portable Ordering Physician COLTON MARROQUIN Accession Number [id number] CPT4 Codes 09311 () Reason For Exam ETT placement Report CHEST: CLINICAL INDICATION: Postop. ET tube placement TECHNIQUE: AP portable chest COMPARISON: 12/12/2019 FINDINGS: The tip of endotracheal tube terminates in the mid trachea. A right IJ Louisville-Iza catheter terminates at the level of the right pulmonary artery. A left-sided chest tube terminates laterally. Median sternotomy wires and surgical clips are also noted. Cardiac size is normal. There is minimal bibasilar atelectasis. There is no sizable pleural effusion. A mildly displaced lateral left rib fracture is visible. IMPRESSION: Postsurgical changes with life support devices in satisfactory position. Report Dictated on Final Dictated: 12/15/2019 1:22 pm Dictating Physician: MD LIZABETH, CHEN Adam Signed Date and Time: 12/15/2019 1:24 pm Signed by: MD LIZABETH, CHEN Adam Transcribed Date and Time: 12/15/2019 1:22 Normal [facility] Calcium, Ionizedon 0 Ionized Ca 4.70 mg/dL 4.3 - 5.2 mg/dL [place] pH (Bld) 7.41 [pH] [place] Comment on above: Test Performed by [address] [address] Test Performed by [id number] [place] [address] Calcium,Ionizedon 12-15-2019 pH, Ionized Calcium 7.41 Normal 7.31-7.46 [facility] Comment on above: Performed By: #### I CA, ABG ####[address] [place] [address] Ionized Ca,Measured 4.70 mg/dL Normal 4.30-5.20 [facility] Comment on above: Performed By: #### I CA, ABG ####[address] [place] [address] ECHO Transesophagealon 12-14 Robin, [facility] Incoming Cardiology Results From [facility] - 12/15/2019 3:13 PM EDT TRANSESOPHAGEAL ECHOCARDIOGRAM Intraoperative-Pre Pump Only PATIENT: Douglas Callaway STUDY DATE: 12/15/2019 : 1955 AGE: 64 HT/WT: 172.7 cm (68 77.3 kg (170.1 in) lb) GENDER: M BP: 127 / 75 LOCATION: [facility] PATIENT Inpatient main STATUS: *ORDERING PHYSICIAN: * Colton Marroquin MD *READING PHYSICIAN: * Dee, *LANOLIN PLANT OPERATOR: * Lissa Page RDCS, Lamar AE, CCT, RCS INDICATIONS: CABG. CONCLUSIONS SUMMARY: 1. Left ventricle: There is mild concentric hypertrophy. Systolic function is normal. The estimated ejection fraction is 55%. 2. Right ventricle: The cavity size is normal. Systolic function is normal. 3. No significant valve disease. STUDY DATA: Operative transesophageal echocardiogram. Procedure: The procedure was performed with the patient intubated under general anesthesia on the operating table. A complete pre-operative ALFREDITO was performed. A transesophageal probe was inserted by the attending cardiologistwithout difficulty. Image quality was good. Complete 2D, complete spectral Doppler, and color flow Doppler images were acquired and archived for permanent storage and are available for subsequent review. Study status: Routine. Patient status: Inpatient. Location: Operating room. Administered medications: Etomidate. ECG RHYTHM: NSR FINDINGS LEFT VENTRICLE: The cavity size is normal. Wall thickness is mildly increased. There is mild concentric hypertrophy. Systolic function is normal. The estimated ejection fraction is 55%. RIGHT VENTRICLE: The cavity size is normal. Systolic function is normal. LEFT ATRIUM: The atrium is normal in size. There is no evidence of a thrombus in the atrial cavity or appendage. No spontaneous echo contrast is observed. The appendage is small. Emptying velocity is normal. ATRIAL SEPTUM: No evidence of patent foramen ovale or atrial septal defect. MITRAL VALVE: Structurally normal valve. Doppler: There is trivial, less than 1+ regurgitation. AORTIC VALVE: Thickening, consistent with sclerosis. Doppler: There is no stenosis. There is trivial, less than 1+ regurgitation. TRICUSPID VALVE: Structurally normal valve. Doppler: There is trivial, less than 1+ regurgitation. PULMONIC VALVE: Structurally normal valve. Doppler: There is trivial, less than 1+ regurgitation. AORTA: The aorta is mildly dilated. There is mild, fixed atheromatous plaque in the descending aorta. PULMONARY ARTERY: The main pulmonary artery is normal in size. PERICARDIUM: There is no pericardial effusion. PULMONARY VEINS: Left upper pulmonary vein: Normal sized. The Doppler velocity and flow profile are normal. Right upper pulmonary vein: Normal sized. The Doppler velocity and flow profile are normal. Measurements Value Reference Aortic root ID, ED (sinus) 3.3 cm <4.1 Aortic root ID, STJ, ED 2.9 cm 2.3 - 3.5 Aortic root ID/bsa, STJ, ED 1.5 cm/m^2 1.1 - 1.9 Value Reference Proximal ascending aorta ID 3.8 cm --------- Proximal ascending aorta ID/bsa 2.0 cm/m^2 --------- Legend: (L) and (H) myesha values outside specified reference range. Electronically signed by Lamar Price 12/15/2019 15:13 Prior Signatures: [facility] [place], [place] TRANSESOPHAGEAL ECHOCARDIOGRAM Intraoperative-Pre Pump Only PATIENT: Douglas Callaway STUDY DATE: 12/15/2019 : 1955 AGE: 64 HT/WT: 172.7 cm (68 77.3 kg (170.1 in) lb) GENDER: M BP: 127 / 75 LOCATION: [facility] PATIENT Inpatient main STATUS: *ORDERING PHYSICIAN: * Colton Marroquin MD *READING PHYSICIAN: * Dee, *LAN[employer]IN PL[employer] OPERATOR: * Lissa Page [facility], Lamar AE, CCT, [facility] INDICATIONS: CABG. CONCLUSIONS SUMMARY: 1. Left ventricle: There is mild concentric hypertrophy. Systolic function is normal. The estimated ejection fraction is 55%. 2. Right ventricle: The cavity size is normal. Systolic function is normal. 3. No significant valve disease. STUDY DATA: Operative transesophageal echocardiogram. Procedure: The procedure was performed with the patient intubated under general anesthesia on the operating table. A complete pre-operative ALFREDITO was performed. A transesophageal probe was inserted by the attending cardiologistwithout difficulty. Image quality was good. Complete 2D, complete spectral Doppler, and color flow Doppler images were acquired and archived for permanent storage and are available for subsequent review. Study status: Routine. Patient status: Inpatient. Location: Operating room. Administered medications: Etomidate. ECG RHYTHM: NSR FINDINGS LEFT VENTRICLE: The cavity size is normal. Wall thickness is mildly increased. There is mild concentric hypertrophy. Systolic function is normal. The estimated ejection fraction is 55%. RIGHT VENTRICLE: The cavity size is normal. Systolic function is normal. LEFT ATRIUM: The atrium is normal in size. There is no evidence of a thrombus in the atrial cavity or appendage. No spontaneous echo contrast is observed. The appendage is small. Emptying velocity is normal. ATRIAL SEPTUM: No evidence of patent foramen ovale or atrial septal defect. MITRAL VALVE: Structurally normal valve. Doppler: There is trivial, less than 1+ regurgitation. AORTIC VALVE: Thickening, consistent with sclerosis. Doppler: There is no stenosis. There is trivial, less than 1+ regurgitation. TRICUSPID VALVE: Structurally normal valve. Doppler: There is trivial, less than 1+ regurgitation. PULMONIC VALVE: Structurally normal valve. Doppler: There is trivial, less than 1+ regurgitation. AORTA: The aorta is mildly dilated. There is mild, fixed atheromatous plaque in the descending aorta. PULMONARY ARTERY: The main pulmonary artery is normal in size. PERICARDIUM: There is no pericardial effusion. PULMONARY VEINS: Left upper pulmonary vein: Normal sized. The Doppler velocity and flow profile are normal. Right upper pulmonary vein: Normal sized. The Doppler velocity and flow profile are normal. Measurements Value Reference Aortic root ID, ED (sinus) 3.3 cm <4.1 Aortic root ID, STJ, ED 2.9 cm 2.3 - 3.5 Aortic root ID/bsa, STJ, ED 1.5 cm/m^2 1.1 - 1.9 Value Reference Proximal ascending aorta ID 3.8 cm --------- Proximal ascending aorta ID/bsa 2.0 cm/m^2 --------- Legend: (L) and (H) myesha values outside specified reference range. Electronically signed by Lamar Price 12/15/2019 15:13 Prior Signatures: [employer] Echo 2D/3D ALFREDITO w/wo Contrast on 12-15-2019 Echo 2D/3D ALFREDITO w/wo Contrast Patient Name: DOUGLAS CALLAWAY Jr Ultrasound Exam Date/Time 12/15/2019 08:13:10 EDT Exam Echo 2D/3D ALFREDITO w/wo Contrast Ordering Physician COLTON MARROQUIN Accession Number [id number] Reason For Exam CABG Report TRANSESOPHAGEAL ECHOCARDIOGRAM Intraoperative-Pre Pump Only PATIENT: Douglas Callaway STUDY DATE: 12/15/2019 : 1955 AGE: 64 HT/WT: 172.7 cm (68 77.3 kg (170.1 in) lb) GENDER: M BP: 127 / 75 LOCATION: [facility] PATIENT Inpatient main STATUS: *ORDERING PHYSICIAN: * Colton Marroquin MD *READING PHYSICIAN: * Dee, *LAN[employer]IN PLANT OPERATOR: * Lissa Page RDCS, Lamar GRUBER, CCT, AURELIO INDICATIONS: CABG. CONCLUSIONS SUMMARY: 1. Left ventricle: There is mild concentric hypertrophy. Systolic function is normal. The estimated ejection fraction is 55%. 2. Right ventricle: The cavity size is normal. Systolic function is normal. 3. No significant valve disease. STUDY DATA: Operative transesophageal echocardiogram. Procedure: The procedure was performed with the patient intubated under general anesthesia on the operating table. A complete pre-operative ALFREDITO was performed. A transesophageal probe was inserted by the attending cardiologistwithout difficulty. Image quality was good. Complete 2D, complete spectral Doppler, and color flow Doppler images were acquired and archived for permanent storage and are available for subsequent review. Study status: Routine. Patient status: Inpatient. Location: Operating room. Administered medications: Etomidate. ECG RHYTHM: NSR FINDINGS LEFT VENTRICLE: The cavity size is normal. Wall thickness is mildly increased. There is mild concentric hypertrophy. Systolic function is normal. The estimated ejection fraction is 55%. RIGHT VENTRICLE: The cavity size is normal. Systolic function is normal. LEFT ATRIUM: The atrium is normal in size. There is no evidence of a thrombus in the atrial cavity or appendage. No spontaneous echo contrast is observed. The appendage is small. Emptying velocity is normal. ATRIAL SEPTUM: No evidence of patent foramen ovale or atrial septal defect. MITRAL VALVE: Structurally normal valve. Doppler: There is trivial, less than 1+ regurgitation. AORTIC VALVE: Thickening, consistent with sclerosis. Doppler: There is no stenosis. There is trivial, less than 1+ regurgitation. TRICUSPID VALVE: Structurally normal valve. Doppler: There is trivial, less than 1+ regurgitation. PULMONIC VALVE: Structurally normal valve. Doppler: There is trivial, less than 1+ regurgitation. AORTA: The aorta is mildly dilated. There is mild, fixed atheromatous plaque in the descending aorta. PULMONARY ARTERY: The main pulmonary artery is normal in size. PERICARDIUM: There is no pericardial effusion. PULMONARY VEINS: Left upper pulmonary vein: Normal sized. The Doppler velocity and flow profile are normal. Right upper pulmonary vein: Normal sized. The Doppler velocity and flow profile are normal. Measurements Value Reference Aortic root ID, ED (sinus) 3.3 cm <4.1 Aortic root ID, STJ, ED 2.9 cm 2.3 - 3.5 Aortic root ID/bsa, STJ, ED 1.5 cm/m^2 1.1 - 1.9 Value Reference Proximal ascending aorta ID 3.8 cm --------- Proximal ascending aorta ID/bsa 2.0 cm/m^2 --------- Legend: (L) and (H) myesha values outside specified reference range. Electronically signed by Lamar Price 12/15/2019 15:13 Prior Signatures: Final Dictated: 12/15/2019 3:13 pm Dictating Physician: MD PRICE WISSAM Signed Date and Time: 12/15/2019 3:13 pm Signed by: MD PRICE WISSAM Normal [facility] Glucose,Bedsideon 12-15-2019 Glucose [Mass/Vol] 166 mg/dL High 70-100 [facility] Comment on above: Result Comment: Test performed by glucose meter. Results may be 10%-15% lower than serum/plasma values. (CLIA ID [id number]) Performed By: #### H EMOG, HA1C2, PT, BMP3, LFT3 #### [facility] [address] [address] Glucose [Mass/Vol] 214 mg/dL High 70-100 [facility] Comment on above: Result Comment: Test performed by glucose meter. Results may be 10%-15% lower than serum/plasma values. (CLIA ID [id number]) Performed By: #### H EMOG, HA1C2, PT, BMP3, LFT3 #### [facility] [email or web address] [facility] [address] [place] [address] Glucose [Mass/Vol] 195 mg/dL High 70-100 [facility] Comment on above: Result Comment: Test performed by glucose meter. Results may be 10%-15% lower than serum/plasma values. (CLIA ID [id number]) Performed By: #### H EMOG, HA1C2, PT, BMP3, LFT3 #### [facility] [email or web address] [facility] [address] [place] [address] Glucose [Mass/Vol] 186 mg/dL High 70-100 [facility] Comment on above: Result Comment: Test performed by glucose meter. Results may be 10%-15% lower than serum/plasma values. (CLIA ID [id number]) Performed By: #### H EMOG, HA1C2, PT, BMP3, LFT3 #### [email or web address] [facility] [address] [place] [address] Glucose [Mass/Vol] 175 mg/dL High 70-100 [facility] Comment on above: Result Comment: Test performed by glucose meter. Results may be 10%-15% lower than serum/plasma values. (CLIA ID [id number]) Performed By: #### H EMOG, HA1C2, PT, BMP3, LFT3 #### [email or web address] [facility] [address] [place] [address] Glucose [Mass/Vol] 223 mg/dL High 70-100 [facility] Comment on above: Result Comment: Test performed by glucose meter. Results may be 10%-15% lower than serum/plasma values. (CLIA ID [id number]) Performed By: #### H EMOG, HA1C2, PT, BMP3, LFT3 #### [facility] [email or web address] [facility] [address] [place] [address] Glucose [Mass/Vol] 243 mg/dL High 70-100 [facility] Comment on above: Result Comment: Test performed by glucose meter. Results may be 10%-15% lower than serum/plasma values. (CLIA ID [id number]) Performed By: #### H EMOG, HA1C2, PT, BMP3, LFT3 #### [facility] [address] [place] [address] Glucose [Mass/Vol] 195 mg/dL High 70-100 [facility] Comment on above: Result Comment: Test performed by glucose meter. Results may be 10%-15% lower than serum/plasma values. (CLIA ID [id number]) Performed By: #### H EMOG, HA1C2, PT, BMP3, LFT3 #### [facility] [address] [place] [address] Glucose [Mass/Vol] 87 mg/dL Normal 70-100 [facility] Comment on above: Result Comment: Test performed by glucose meter. Results may be 10%-15% lower than serum/plasma values. (CLIA ID [id number]) Performed By: #### B GLU ####[facility] [address] [place] [address] Glucose [Mass/Vol] 86 mg/dL Normal 70-100 [facility] Comment on above: Result Comment: Test performed by glucose meter. Results may be 10%-15% lower than serum/plasma values. (CLIA ID [id number]) Performed By: #### B GLU ####[facility] [address] [place] [address] Glucose [Mass/Vol] 183 mg/dL High 70-100 [facility] Comment on above: Result Comment: Test performed by glucose meter. Results may be 10%-15% lower than serum/plasma values. (CLIA ID [id number]) Performed By: #### B GLU #### [facility] [email or web address] [facility] [address] [place] [address] Hemogramon 12-15-2019 Erythrocyte distribution width (RBC) [Ratio] 13.9 % Normal 11.5-14.5 [facility] Comment on above: Performed By: #### H EMOG, PT/AP, BMP3, MG3, PHOS3 ####[address] [place], [place] Hematocrit (Bld) [Volume fraction] 23.3 % Low 40.0-52.0 [facility] Comment on above: Performed By: #### H EMOG, PT/AP, BMP3, MG3, PHOS3 ####[address] [place], [place] Hemoglobin (Bld) [Mass/Vol] 7.9 g/dL Low 13.0-18.0 [facility] Comment on above: Result Comment: REPE ATED Performed By: #### H EMOG, PT/AP, BMP3, MG3, PHOS3 ####[address] [place], [place] MCH (RBC) [Entitic mass] 32.5 pg Normal 26.0-34.0 [facility] Comment on above: Performed By: #### H EMOG, PT/AP, BMP3, MG3, PHOS3 ####[address] [place], [place] MCHC (RBC) [Mass/Vol] 34.0 % Normal 32.0-36.0 [facility] Comment on above: Performed By: #### H EMOG, PT/AP, BMP3, MG3, PHOS3 ####[address] [place], [place] MCV (RBC) [Entitic vol] 95.6 fL Normal 80.0-98.0 [facility] Comment on above: Performed By: #### H EMOG, PT/AP, BMP3, MG3, PHOS3 ####[address] [place], [place] Platelet mean volume (Bld) [Entitic vol] 7.4 fL Normal 7.4-10.4 [facility] Comment on above: Performed By: #### H EMOG, PT/AP, BMP3, MG3, PHOS3 ####[address] [place], [place] Platelets (Bld) [#/Vol] 105 10*3/uL Low 140-440 [facility] Comment on above: Performed By: #### H EMOG, PT/AP, BMP3, MG3, PHOS3 ####[address] [place] RBC (Bld) [#/Vol] 2.43 10*6/uL Low 4.40-5.90 [facility] Comment on above: Performed By: #### H EMOG, PT/AP, BMP3, MG3, PHOS3 ####[address] [place], [place] WBC (Bld) [#/Vol] 12.0 10*3/uL High 3.6-10.7 [facility] Comment on above: Performed By: #### H EMOG, PT/AP, BMP3, MG3, PHOS3 ####[address] Magnesiumon 12-15-2019 Magnesium [Mass/Vol] 3.9 mg/dL High 1.6-2.3 [facility] Comment on above: Performed By: #### H EMOG, PT/AP, BMP3, MG3, PHOS3 ####[address] [place], [place] Magnesium [Mass/Vol] 3.9 mg/dL High 1.6 - 2.3 mg/dL [place], [place] Otheron 12-15-2019 Interpretation and review of laboratory results Abnormal [place] Test Performed by [facility], [address] [place], [place] [address] [place] [address] PATHOGEN REDUCED LR PPHRon 0 12-15-2019 PATHOGEN REDUCED LR PPHR PATHOGEN REDUCED LR PPHR: [id number] transfused 12/15/19 13:44 MSS1 Unit Blood Type: O Unit Blood Rh: POS Blood Product Code: PR2 Unit Number: [id number] Unit Status: transfused Barcoded Unit Number: =[id number] Barcoded Product Code: = Barcoded ABO/Rh: =%5100 Unit Expiration: Unit Volume Transfused: 300 Unit Transfusion Start Date/Time: [id number] Normal [facility] Comment on above: Performed By: #### H EMOG, HA1C2, PT, BMP3, LFT3 #### [facility] [address] [place] [address] POCT Glucoseon 12-15-2019 Glucose [Mass/Vol] 109 mg/dL High 70 - 100 mg/dL [facility] [place] Comment on above: Test performed by gl ucose meter. Results may be 10%-15% lower than serum/plasma values. (CLIA ID [id number]) Interpretation and review of laboratory results Abnormal [facility] [place] Test Performed by [facility], [facility] [place] [address] [facility] Glucose [Mass/Vol] 109 mg/dL High 70 - 100 mg/dL [facility] [place] Comment on above: Test performed by gl ucose meter. Results may be 10%-15% lower than serum/plasma values. (CLIA ID [id number]) Interpretation and review of laboratory results Abnormal [facility] [place] Test Performed by [employer] [facility], [facility] [address] [facility] [place] [address] [facility] [place] Glucose [Mass/Vol] 113 mg/dL High 70 - 100 mg/dL [facility] [place] Comment on above: Test performed by gl ucose meter. Results may be 10%-15% lower than serum/plasma values. (CLIA ID [id number]) Interpretation and review of laboratory results Abnormal [facility] [place] Test Performed by [facility] [facility], [address] [place] [address] [facility] [place] Glucose [Mass/Vol] 166 mg/dL High 70 - 100 mg/dL [facility] [place] Comment on above: Test performed by gl ucose meter. Results may be 10%-15% lower than serum/plasma values. (CLIA ID [id number]) Interpretation and review of laboratory results Abnormal [facility] [place] Test Performed by [employer] [facility], [address] [place] [address] [facility] Glucose [Mass/Vol] 214 mg/dL High 70 - 100 mg/dL [facility] Comment on above: Test performed by gl ucose meter. Results may be 10%-15% lower than serum/plasma values. (CLIA ID [id number]) Interpretation and review of laboratory results Abnormal [facility] [place] Test Performed by [employer] [facility], [address] [place] [address] [facility] [place] Glucose [Mass/Vol] 195 mg/dL High 70 - 100 mg/dL [facility] [place] Comment on above: Test performed by gl ucose meter. Results may be 10%-15% lower than serum/plasma values. (CLIA ID [id number]) Interpretation and review of laboratory results Abnormal [facility] [place] Test Performed by [employer] [facility], [address] [place] [address] [facility] Glucose [Mass/Vol] 186 mg/dL High 70 - 100 mg/dL [facility] Comment on above: Test performed by gl ucose meter. Results may be 10%-15% lower than serum/plasma values. (CLIA ID [id number]) Interpretation and review of laboratory results Abnormal [facility] [place] Test Performed by [employer] [facility], [address] [place] [address] [facility] [place] Glucose [Mass/Vol] 175 mg/dL High 70 - 100 mg/dL [facility] Comment on above: Test performed by gl ucose meter. Results may be 10%-15% lower than serum/plasma values. (CLIA ID [id number]) Interpretation and review of laboratory results Abnormal [facility] [place] Test Performed by [employer] [facility], [address] [place] [address] [facility] Glucose [Mass/Vol] 223 mg/dL High 70 - 100 mg/dL [facility] Comment on above: Test performed by gl ucose meter. Results may be 10%-15% lower than serum/plasma values. (CLIA ID [id number]) Interpretation and review of laboratory results Abnormal [facility] [place] Test Performed by [employer] [facility], [address] [place] [address] [facility] Glucose [Mass/Vol] 243 mg/dL High 70 - 100 mg/dL [facility] Comment on above: Test performed by gl ucose meter. Results may be 10%-15% lower than serum/plasma values. (CLIA ID [id number]) Interpretation and review of laboratory results Abnormal [facility] Test Performed by [facility], [address] [place] [address] [facility] Glucose [Mass/Vol] 195 mg/dL High 70 - 100 mg/dL [facility] [place] Comment on above: Test performed by gl ucose meter. Results may be 10%-15% lower than serum/plasma values. (CLIA ID [id number]) Interpretation and review of laboratory results Abnormal [facility] Test Performed by [facility], [address], [place] [address] [facility] Glucose [Mass/Vol] 87 mg/dL 70 - 100 mg/dL [facility] Comment on above: Test performed by gl ucose meter. Results may be 10%-15% lower than serum/plasma values. (CLIA ID [id number]) Test Performed by [facility], [address] [place] [address] [facility] [place] Glucose [Mass/Vol] 86 mg/dL 70 - 100 mg/dL [facility] [place] Comment on above: Test performed by gl ucose meter. Results may be 10%-15% lower than serum/plasma values. (CLIA ID [id number]) Test Performed by [facility], [address] [place] [address] [facility] Glucose [Mass/Vol] 183 mg/dL High 70 - 100 mg/dL [facility] [place] Comment on above: Test performed by gl ucose meter. Results may be 10%-15% lower than serum/plasma values. (CLIA ID [id number]) Interpretation and review of laboratory results Abnormal [facility] [place] Test Performed by [facility], [address] [place] [address] [place] PREPARE PLATELETS, 2 Product on 12-15-2019 ABO and Rh group Nom (Bld) 7300 [place], [place] Blood product unit ID (Dose) [#] [id number] [place] Sodium [Moles/Vol] [id number] [place] Sodium [Moles/Vol] [id number] mmol/L [place] Sodium [Moles/Vol] transfused [place], [place] Pathogen Reduced Lekuoreduce d Platelet Pheresison 12-15-2019 ABO and Rh group Nom (Bld) 5100 [place] Blood product unit ID (Dose) [#] [id number] [place] Sodium [Moles/Vol] [id number] mmol/L [place] Sodium [Moles/Vol] [id number] [place] Sodium [Moles/Vol] transfused [place] Pheresis Leuko Reducedon Pheresis Leuko Reduced Pheresis Leuko Reduced: [id number] transfused 12/15/19 12:59 MSS1 Unit Blood Type: B Unit Blood Rh: POS Blood Product Code: PA2 Unit Number: [id number] Unit Status: transfused Barcoded Unit Number: =[id number] Barcoded Product Code: = Barcoded ABO/Rh: =%7300 Unit Expiration: Unit Volume Transfused: 300 Unit Transfusion Start Date/Time: Normal [facility] Comment on above: Performed By: #### H EMOG, HA1C2, PT, BMP3, LFT3 #### [facility] [employer] [facility] [address], [place] Phosphoruson 12-15-2019 Phosphate [Mass/Vol] 2.2 mg/dL Low 2.5-4.5 [facility] Comment on above: Performed By: #### H EMOG, PT/AP, BMP3, MG3, PHOS3 ####[facility] [place], [place] Phosphate [Mass/Vol] 2.2 mg/dL Low 2.5 - 4.5 mg/dL [place] Protime AND APTTon 0 aPTT Coag (Bld) [Time] 24.8 s Normal 20.0-30.5 [facility] Comment on above: Result Comment: NOTE : The therapeutic time for Heparin anticoagulation, based on Xa activity inhibition, is an APTT of 46-80 seconds. Performed By: #### H EMOG, PT/AP, BMP3, MG3, PHOS3 ####[address] [place] [address] INR Coag (PPP) [Relative time] 1.2 High 0.9-1.1 [facility] Comment on above: Result Comment: Pasha mmended Anticoagulant Therapy: SEE BELOW ----- INR of 2.0 - 3.0 : - Prophylaxis of Venous Thrombosis (high-risk surgery) - Treatment of Venous Thrombosis - Treatment of Pulmonary Embolism (Includes tissue heart valves, Acute Myocardial Infarction to prevent systemic embolism, Valvular Heart Disease, and Atrial Fibrillation) ----- INR of 2.5 - 3.5 : - Mechanical Prosthetic Valves (high risk) - If oral anticoagulant therapy is used to prevent Myocardial Infarction Performed By: #### H EMOG, PT/AP, BMP3, MG3, PHOS3 ####[address] [place], [place] PT Coag (PPP) [Time] 12.6 s High 9.0-12.0 [facility] Comment on above: Result Comment: . Performed By: #### H EMOG, PT/AP, BMP3, MG3, PHOS3 ####[address] [place] [address] Protime/INR & PTTon 12-15-19 20 aPTT Coag (Bld) [Time] 24.8 s 20 - 30.5 s [place] Comment on above: Test Performed by [facility], [address] [place] [address] NOTE: The therapeutic time for Heparin anticoagulation, based on Xa activity inhibition, is an APTT of 46-80 seconds. INR Coag (PPP) [Relative time] 1.2 {INR} [place] Comment on above: Test Performed by [facility], [address] [place] [address] Recommended Anticoagulant Therapy: SEE BELOW ----- INR of 2.0 - 3.0 : - Prophylaxis of Venous Thrombosis (high-risk surgery) - Treatment of Venous Thrombosis - Treatment of Pulmonary Embolism (Includes tissue heart valves, Acute Myocardial Infarction to prevent systemic embolism, Valvular Heart Disease, and Atrial Fibrillation) ----- INR of 2.5 - 3.5 : - Mechanical Prosthetic Valves (high risk) - If oral anticoagulant therapy is used to prevent Myocardial Infarction PT Coag (PPP) [Time] 12.6 s [facility] 9 - 12 s [place] Comment on above: . XR CHEST PORTABLEon 12-15-19 Patient Name: DOUGLAS SIMON Jr ---Diagnostic Radiology--- Exam Date/Time 12/15/2019 13:23:36 EDT Exam CR Chest Portable Ordering Physician COLTON MARROQUIN Accession Number [id number] CPT4 Codes 98727 () Reason For Exam ETT placement Report CHEST: CLINICAL INDICATION: Postop. ET tube placement TECHNIQUE: AP portable chest COMPARISON: 12/12/2019 FINDINGS: The tip of endotracheal tube terminates in the mid trachea. A right IJ [place]-Iza catheter terminates at the level of the right pulmonary artery. A left-sided chest tube terminates laterally. Median sternotomy wires and surgical clips are also noted. Cardiac size is normal. There is minimal bibasilar atelectasis. There is no sizable pleural effusion. A mildly displaced lateral left rib fracture is visible. IMPRESSION: Postsurgical changes with life support devices in satisfactory position. Report Dictated on --- Final --- Dictated: 12/15/2019 1:22 pm Dictating Physician: MD BARONE KERISTEN L Signed Date and Time: 12/15/2019 1:24 pm Signed by: MD BARONE KERISTEN L Transcribed Date and Time: 12/15/2019 1:22 [facility] [place], [place] Incoming Radiology Results From [facility] - 12/15/2019 1:25 PM EDT Patient Name: DOUGLAS CALLAWAY Jr ---Diagnostic Radiology--- Exam Date/Time 12/15/2019 13:23:36 EDT Exam CR Chest Portable Ordering Physician COLTON MARROQUIN Accession Number [id number] CPT4 Codes 50226 () Reason For Exam ETT placement Report CHEST: CLINICAL INDICATION: Postop. ET tube placement TECHNIQUE: AP portable chest COMPARISON: 12/12/2019 FINDINGS: The tip of endotracheal tube terminates in the mid trachea. A right IJ [place]-Iza catheter terminates at the level of the right pulmonary artery. A left-sided chest tube terminates laterally. Median sternotomy wires and surgical clips are also noted. Cardiac size is normal. There is minimal bibasilar atelectasis. There is no sizable pleural effusion. A mildly displaced lateral left rib fracture is visible. IMPRESSION: Postsurgical changes with life support devices in satisfactory position. Report Dictated on --- Final --- Dictated: 12/15/2019 1:22 pm Dictating Physician: MD LIZABETH, CHEN Adam Signed Date and Time: 12/15/2019 1:24 pm Signed by: MD BARONE KERISTEN L Transcribed Date and Time: 12/15/2019 1:22 [place] Basic Metabolic Panelon 04-0 Calcium [Mass/Vol] 10.4 mg/dL Normal 8.4-10.4 [facility] Comment on above: Performed By: #### H EMOG, HA1C2, PT, BMP3, LFT3 #### [facility] [address] [place] [address] Glucose [Mass/Vol] 154 mg/dL High 70-100 [facility] Comment on above: Performed By: #### H EMOG, HA1C2, PT, BMP3, LFT3 #### [facility] [address] [place] [address] Anion gap [Moles/Vol] 16 Normal [facility] Comment on above: Performed By: #### H EMOG, HA1C2, PT, BMP3, LFT3 #### [address], [place] CO2 [Moles/Vol] 27 mmol/L Normal 22-30 [facility] Comment on above: Performed By: #### H EMOG, HA1C2, PT, BMP3, LFT3 #### [address], [place] Creatinine [Mass/Vol] 1.33 mg/dL High 0.52-1.25 [facility] Comment on above: Performed By: #### H EMOG, HA1C2, PT, BMP3, LFT3 #### [address] [place], [place] GFR/1.73 sq M predicted among blacks MDRD (S/P/Bld) [Vol rate/Area] mL/min/{1.73_m2} Normal >60 [facility] Comment on above: Performed By: #### H EMOG, HA1C2, PT, BMP3, LFT3 #### [address] [place], [place] GFR/1.73 sq M predicted among non-blacks MDRD (S/P/Bld) [Vol rate/Area] 53.8 mL/min/{1.73_m2} Normal >60 [facility] Comment on above: Result Comment: Sour ce- MDRD equation with creatinine calibration to IDMS(NKDEP) eGFR not recommended for drug dose adjustment Performed By: #### H EMOG, HA1C2, PT, BMP3, LFT3 #### [address], [place] Urea nitrogen [Mass/Vol] 24 mg/dL High 7-20 [facility] Comment on above: Performed By: #### H EMOG, HA1C2, PT, BMP3, LFT3 #### [address] [place], [place] Chloride [Moles/Vol] 101 mmol/L Normal 98-107 [facility] Comment on above: Performed By: #### H EMOG, HA1C2, PT, BMP3, LFT3 #### [address] [place] [address] Potassium [Moles/Vol] 4.6 mmol/L Normal 3.5-5.1 [facility] Comment on above: Performed By: #### H EMOG, HA1C2, PT, BMP3, LFT3 #### [facility] [address] [place] [address] Sodium [Moles/Vol] 144 mmol/L Normal 135-145 [facility] Comment on above: Performed By: #### H EMOG, HA1C2, PT, BMP3, LFT3 #### [facility] [address] [place] [address] Anion gap [Moles/Vol] 16 mmol/L [place] Comment on above: Test Performed by [facility], [address] [place] [address] Calcium [Mass/Vol] 10.4 mg/dL 8.4 - 10. 4 mg/dL [place] Comment on above: Test Performed by [facility], [address] [place] [address] Chloride [Moles/Vol] 101 mmol/L 98 - 107 mmol/L [place] Comment on above: Test Performed by [facility], [address] [place] [address] CO2 [Moles/Vol] 27 mmol/L 22 - 30 mmol/L [place] Comment on above: Test Performed by [facility], [address] [place] [address] Creatinine [Mass/Vol] 1.33 mg/dL High 0.52 - 1.25 mg/dL [place] Comment on above: Test Performed by [facility], [address] [place] [address] EGFR IF NonAfrican Faroese 53.8 mL/min >60 [place] Comment on above: Test Performed by [facility], [address] [place] [address] Source- MDRD equation with creatinine calibration to IDMS(NKDEP) eGFR not recommended for drug dose adjustment GFR/1.73 sq M predicted among blacks MDRD (S/P/Bld) [Vol rate/Area] mL/min/{1.73_m2} >60 mL/min [place] Comment on above: Test Performed by [facility], [facility] [place] [address] Glucose [Mass/Vol] 154 mg/dL High 70 - 100 mg/dL [place] Comment on above: Test Performed by [facility], [facility] [place] [address] Potassium [Moles/Vol] 4.6 mmol/L 3.5 - 5.1 mmol/L [place] Comment on above: Test Performed by [facility], [facility] [address] Sodium [Moles/Vol] 144 mmol/L 135 - 145 mmol/L [place] Urea nitrogen [Mass/Vol] 24 mg/dL High 7 - 20 mg/dL [place] Comment on above: Test Performed by [facility], [facility] [place] [address] CBCon 12-12-2019 Erythrocyte distribution width (RBC) [Ratio] 13.5 % 11.5 - 14.5 % [place] Comment on above: Test Performed by [facility], [facility] [place] [address] Hematocrit (Bld) [Volume fraction] 45.4 % 40 - 52 % [place] Comment on above: Test Performed by [facility], [facility] [place] [address] Hemoglobin (Bld) [Mass/Vol] 14.8 g/dL 13 - 18 g/dL [place] Comment on above: Test Performed by [facility], [facility] [place] [address] Interpretation and review of laboratory results Abnormal [place] MCH (RBC) [Entitic mass] 32.0 pg 26 - 34 pg [place] Comment on above: Test Performed by [facility], [facility] [place] [address] MCHC (RBC) [Mass/Vol] 32.6 % 32 - 36 % [place] Comment on above: Test Performed by [facility], [facility] [place] [address] MCV (RBC) [Entitic vol] 98.1 fL High 80 - 98 fL [place] Comment on above: Test Performed by [facility], [address] [place] [address] Platelet mean volume (Bld) [Entitic vol] 8.9 fL 7.4 - 10.4 fL [place] Comment on above: Test Performed by [facility], [address] [place] [address] Platelets (Bld) [#/Vol] 263 10*3/uL 140 - 440 10*3/uL [place] Comment on above: Test Performed by [facility], [address] [place] [address] RBC (Bld) [#/Vol] 4.62 10*6/uL 4.4 - 5.9 10*6/uL [place] Comment on above: Test Performed by [facility], [address] [place] [address] WBC (Bld) [#/Vol] 11.5 10*3/uL High 3.6 - 10.7 10*3/uL [place] Test Performed by [facility], [address] [facility] [place] [address] [place], [place] CR Chest PA/LATon 12-12-2019 CR Chest PA/LAT Patient Name: DOUGLAS SIMON Jr Diagnostic Radiology Exam Date/Time 12/12/2019 13:17:02 EDT Exam CR Chest PA/LAT Ordering Physician DOMINIQUE CARROLL, ALICIA Adams Accession Number [id number] CPT4 Codes 80875 () Reason For Exam preop evaluation Report CHEST (Frontal and lateral) History: Chest pain, dyspnea, preop Comparison: None available Findings: Frontal and lateral chest views show diminished lung volume with linear small bilateral basilar atelectasis without acute infiltrate or congestion. There is 1 cm round density projected at the left lung base that could represent overlying nipple versus lung nodule. Right diaphragm is mildly elevated. The heart is normal in size. There is no mediastinal widening or pleural effusion. There is mild spondylosis. There is mild gaseous distention of bowel loop in the partially visualized upper abdomen. IMPRESSION: 1 cm round density projected at the left lung base could represent overlying nipple versus lung nodule require further evaluation that may include repeat chest radiographs with nipple markers or chest CT. Other chronic changes. No acute infiltrate.. Report Dictated on Final Dictated: 12/12/2019 1:35 pm Dictating Physician: MD COLLINS AHMAD Signed Date and Time: 12/12/2019 1:42 pm Signed by: MD COLLINS AHMAD Transcribed Date and Time: 12/12/2019 1:35 Normal [facility] Hemoglobin A1Con 12-12-2019 HbA1c (Bld) [Mass fraction] 154 mg/dL Normal [facility] Comment on above: Performed By: #### H EMOG, HA1C2, PT, BMP3, LFT3 #### [address] [address] HbA1c (Bld) [Mass fraction] 7.0 % High 4.0-5.7 [facility] Comment on above: Result Comment: --Hg bA1C levels may not be accurate in patients who have renal disease, received recent blood transfusions, are anemic, or who have dyshemoglobinemia. Performed By: #### H EMOG, HA1C2, PT, BMP3, LFT3 #### [address] [address] eAG 154 mg/dL [place] Comment on above: Test Performed by [facility], [address] [place] [address] HbA1c (Bld) [Mass fraction] 7.0 % High 4 - 5.7 % [place] Comment on above: --HgbA1C levels may not be accurate in patients who have renal disease, received recent blood transfusions, are anemic, or who have dyshemoglobinemia. Interpretation and review of laboratory results Abnormal [place] Hemogramon 12-12-2019 Erythrocyte distribution width (RBC) [Ratio] 13.5 % Normal 11.5-14.5 [facility] Comment on above: Performed By: #### H EMOG, HA1C2, PT, BMP3, LFT3 #### [address] [address] [address] [place], [place] Hematocrit (Bld) [Volume fraction] 45.4 % Normal 40.0-52.0 [facility] Comment on above: Performed By: #### H EMOG, HA1C2, PT, BMP3, LFT3 #### [address] [address] [place], [place] Hemoglobin (Bld) [Mass/Vol] 14.8 g/dL Normal 13.0-18.0 [facility] Comment on above: Performed By: #### H EMOG, HA1C2, PT, BMP3, LFT3 #### [address] [address] [place], [place] MCH (RBC) [Entitic mass] 32.0 pg Normal 26.0-34.0 [facility] Comment on above: Performed By: #### H EMOG, HA1C2, PT, BMP3, LFT3 #### [address] [address] [place], [place] MCHC (RBC) [Mass/Vol] 32.6 % Normal 32.0-36.0 [facility] Comment on above: Performed By: #### H EMOG, HA1C2, PT, BMP3, LFT3 #### [address] MCV (RBC) [Entitic vol] 98.1 fL High 80.0-98.0 [facility] Comment on above: Performed By: #### H EMOG, HA1C2, PT, BMP3, LFT3 #### [address] Platelet mean volume (Bld) [Entitic vol] 8.9 fL Normal 7.4-10.4 [facility] Comment on above: Performed By: #### H EMOG, HA1C2, PT, BMP3, LFT3 #### [address] [place] [address] [place], [place] Platelets (Bld) [#/Vol] 263 10*3/uL Normal 140-440 [facility] Comment on above: Performed By: #### H EMOG, HA1C2, PT, BMP3, LFT3 #### [facility] [address] [place], [place] RBC (Bld) [#/Vol] 4.62 10*6/uL Normal 4.40-5.90 [facility] Comment on above: Performed By: #### H EMOG, HA1C2, PT, BMP3, LFT3 #### [address] [place] [address] [address] [place], [place] WBC (Bld) [#/Vol] 11.5 10*3/uL High 3.6-10.7 [facility] Comment on above: Performed By: #### H EMOG, HA1C2, PT, BMP3, LFT3 #### [address] [place] [address] [address] [place], [place] Hepatic Functionon 0 ALP [Catalytic activity/Vol] 168 U/L High 38-126 [facility] Comment on above: Performed By: #### H EMOG, HA1C2, PT, BMP3, LFT3 #### [address] [place] [address] [address] [place], [place] ALT [Catalytic activity/Vol] 23 U/L Normal 0-49 [facility] Comment on above: Result Comment: The ALT test is performed by an updated assay method. Please note that the reference intervals have been changed and are now sex specific. Performed By: #### H EMOG, HA1C2, PT, BMP3, LFT3 #### [address] [place] [address] [address] [place], [place] AST [Catalytic activity/Vol] 33 U/L Normal 15-46 [facility] Comment on above: Performed By: #### H EMOG, HA1C2, PT, BMP3, LFT3 #### [address] [place] [address] [address] [place], [place] Bilirubin [Mass/Vol] 0.7 mg/dL Normal 0.2-1.3 [facility] Comment on above: Performed By: #### H EMOG, HA1C2, PT, BMP3, LFT3 #### [address] [address] [place] [address] Bilirubin.direct [Mass/Vol] 0.0 mg/dL Normal 0.0-0.3 [facility] Comment on above: Performed By: #### H EMOG, HA1C2, PT, BMP3, LFT3 #### [facility] [address] [place] [address] Protein [Mass/Vol] 8.1 g/dL Normal 6.3-8.2 [facility] Comment on above: Performed By: #### H EMOG, HA1C2, PT, BMP3, LFT3 #### [facility] [address] [place] [address] Albumin [Mass/Vol] 4.8 g/dL Normal 3.5-5.0 [facility] Comment on above: Performed By: #### H EMOG, HA1C2, PT, BMP3, LFT3 #### [facility] [address] [place] [address] Hepatic Function Panelon Albumin [Mass/Vol] 4.8 g/dL 3.5 - 5 g/dL [place] ALP [Catalytic activity/Vol] 168 U/L High 38 - 126 U/L [place] Comment on above: Test Performed by [facility], [address] [place] [address] ALT [Catalytic activity/Vol] 23 U/L 0 - 49 U/L [place] Comment on above: Test Performed by [facility], [address] [place] [address] The ALT test is performed by an updated assay method. Please note that the reference intervals have been changed and are now sex specific. AST [Catalytic activity/Vol] 33 U/L 15 - 46 U/L [place] Comment on above: Test Performed by [facility], [address] [place] [address] Bilirubin Ql (U) 0.7 mg/dL 0.2 - 1.3 mg/dL [place] Comment on above: Test Performed by [facility], [facility] [place] [address] Bilirubin.direct [Mass/Vol] 0.0 mg/dL 0 - 0.3 mg/dL [place] Comment on above: Test Performed by [facility], [facility] [address] Protein [Mass/Vol] 8.1 g/dL 6.3 - 8.2 g/dL [place] Comment on above: Test Performed by [facility], [facility] [address] Otheron 12-12-2019 Interpretation and review of laboratory results Abnormal [place] Test Performed by [facility], [facility] [place] [id number] [place] [address] Test Performed by [facility], [address] [place] [address] Prothrombin Timeon 0 INR Coag (PPP) [Relative time] 0.9 Normal 0.9-1.1 [facility] Comment on above: Result Comment: Pasha mmended Anticoagulant Therapy: SEE BELOW ----- INR of 2.0 - 3.0 : - Prophylaxis of Venous Thrombosis (high-risk surgery) - Treatment of Venous Thrombosis - Treatment of Pulmonary Embolism (Includes tissue heart valves, Acute Myocardial Infarction to prevent systemic embolism, Valvular Heart Disease, and Atrial Fibrillation) ----- INR of 2.5 - 3.5 : - Mechanical Prosthetic Valves (high risk) - If oral anticoagulant therapy is used to prevent Myocardial Infarction Performed By: #### H EMOG, HA1C2, PT, BMP3, LFT3 #### [address] [address] PT Coag (PPP) [Time] 10.1 s Normal 9.0-12.0 [facility] Comment on above: Result Comment: . Performed By: #### H EMOG, HA1C2, PT, BMP3, LFT3 #### [address] [address] [place] [address] Protime-INRon 12-12-2019 INR Coag (PPP) [Relative time] 0.9 {INR} [place] Comment on above: Test Performed by [facility], [place] [address] Recommended Anticoagulant Therapy: SEE BELOW ----- INR of 2.0 - 3.0 : - Prophylaxis of Venous Thrombosis (high-risk surgery) - Treatment of Venous Thrombosis - Treatment of Pulmonary Embolism (Includes tissue heart valves, Acute Myocardial Infarction to prevent systemic embolism, Valvular Heart Disease, and Atrial Fibrillation) ----- INR of 2.5 - 3.5 : - Mechanical Prosthetic Valves (high risk) - If oral anticoagulant therapy is used to prevent Myocardial Infarction PT Coag (PPP) [Time] 10.1 s 9 - 12 s [place] Comment on above: . TS GELon 12-12-2019 TS GEL ABO Group: O Rh, Gel: POS Antibody Screen Gel: NEG Normal [facility] Comment on above: Performed By: #### T SGL #### [id number] [place] [address] #### LRC #### [place] [address] [place] [address] TYPE AND SCREENon 12-12-2019 Sodium [Moles/Vol] O [place] Sodium [Moles/Vol] Positive [place] Comment on above: Test Performed by [facility], [address] [place] [address] Sodium [Moles/Vol] Negative [place] Comment on above: Test Performed by [facility], [address] [place] [address] Test Performed by [address] [address] [place] VL Carotid Duplex Ultrasound Completeon 12-12-2019 VL Carotid Duplex Ultrasound Complete Patient Name: DOUGLAS CALLAWAY Jr Ultrasound Exam Date/Time 12/12/2019 12:57:04 EDT Exam VL Carotid Duplex Ultrasound Complete Ordering Physician COLTON MARROQUIN Accession Number [id number] CPT4 Codes 46092 () Reason For Exam Dizziness/pre-op CABG Report [facility] Carotid Duplex Report Ordering Physician: Colton Marroquin MD [employer] Bal[employer] Technician: Coco Servin T Interpreting Physician: Iván Pineda MD Location: [facility] [address] Indications: Dizziness. Pt is pre-op for CABG. Conclusions 1. Mild carotid disease present with less than 50% stenosis involving the right internal carotid artery. 2. Mild carotid disease present with less than 50% stenosis involving the left internal carotid artery. 3. Normal antegrade flow involving the right vertebral artery. 4. Normal antegrade flow involving the left vertebral artery. History: Risk factors: Former tobacco use. Hypertension. Diabetes mellitus. Study data: Complete carotid duplex study. Grayscale 2D imaging, color Doppler imaging, and spectral Doppler analysis. Location: Vascular laboratory. Procedure: A vascular evaluation was performed with the patient in the supine position. Images were obtained using a [employer] E9 vascular ultrasound machine. Findings Carotid/vertebral arteries: Right common carotid: The distal vessel has minimalsmoothhomogeneous plaque. Right internal carotid: The proximal vessel has mixedheterogeneous plaque. Right vertebral: The arterial flow direction is antegrade. Left vertebral: The arterial flow direction is antegrade. Left common carotid: The mid vessel has minimalsmooth plaque. The distal vessel has minimalmixedheterogeneous plaque. Left internal carotid: The proximal vessel has mixedheterogeneous plaque. Arterial flow: + + + + +Location +PSV(cm/sec)+EDV(cm/sec)+ + + + + +R CCA , prox +94 +12 + + + + + +R CCA , mid +75 +9 + + + + + +R CCA , distal+62 +10 + + + + + +R ICA , prox +52 +11 + + + + + +R ICA , mid +59 +14 + + + + + +R ICA , distal+58 +14 + + + + + +R ECA +69 +6 + + + + + +R vertebral +57 +12 + + + + + +R subclavian +141 +0 + + + + + +L CCA , prox +75 +10 + + + + + +L CCA , mid +67 +8 + + + + + +L CCA , distal+63 +11 + + + + + +L ICA , prox +50 +9 + + + + + +L ICA , mid +45 +11 + + + + + +L ICA , distal+57 +9 + + + + + +L ECA +80 +9 + + + + + +L vertebral +52 +7 + + + + + +L subclavian +108 +0 + + + + + Velocity ratios: + +--- --+-----+ + +R PSV+L PSV+ + +--- --+-----+ +Max ICA / Mid CCA Ratio+0.78 +0.85 + + +--- --+-----+ Prepared and electronically signed by Iván Pineda MD 12/12/2019 15:24 Final Dictated: 12/12/2019 3:24 pm Dictating Physician: IVÁN PINEDA Signed Date and Time: 12/12/2019 3:24 pm Signed by: IVÁN PINEDA Normal [facility] VL DUP CAROTID BILATERALon 0 12-12-2019 [facility] Carotid Duplex Report Ordering Physician: Colton Marroquin MD [employer] Bal[employer] Technician: Coco Servin T Interpreting Physician: Iván Pineda MD Location: [place] [address] [address] Indications: Dizziness. Pt is pre-op for CABG. Conclusions 1. Mild carotid disease present with less than 50% stenosis involving the right internal carotid artery. 2. Mild carotid disease present with less than 50% stenosis involving the left internal carotid artery. 3. Normal antegrade flow involving the right vertebral artery. 4. Normal antegrade flow involving the left vertebral artery. History: Risk factors: Former tobacco use. Hypertension. Diabetes mellitus. Study data: Complete carotid duplex study. Grayscale 2D imaging, color Doppler imaging, and spectral Doppler analysis. Location: Vascular laboratory. Procedure: A vascular evaluation was performed with the patient in the supine position. Images were obtained using a [employer] E9 vascular ultrasound machine. Findings Carotid/vertebral arteries: Right common carotid: The distal vessel has minimalsmoothhomogeneous plaque. Right internal carotid: The proximal vessel has mixedheterogeneous plaque. Right vertebral: The arterial flow direction is antegrade. Left vertebral: The arterial flow direction is antegrade. Left common carotid: The mid vessel has minimalsmooth plaque. The distal vessel has minimalmixedheterogeneous plaque. Left internal carotid: The proximal vessel has mixedheterogeneous plaque. Arterial flow: + + + + +Location +PSV(cm/sec)+EDV(cm/sec)+ + + + + +R CCA , prox +94 +12 + + + + + +R CCA , mid +75 +9 + + + + + +R CCA , distal+62 +10 + + + + + +R ICA , prox +52 +11 + + + + + +R ICA , mid +59 +14 + + + + + +R ICA , distal+58 +14 + + + + + +R ECA +69 +6 + + + + + +R vertebral +57 +12 + + + + + +R subclavian +141 +0 + + + + + +L CCA , prox +75 +10 + + + + + +L CCA , mid +67 +8 + + + + + +L CCA , distal+63 +11 + + + + + +L ICA , prox +50 +9 + + + + + +L ICA , mid +45 +11 + + + + + +L ICA , distal+57 +9 + + + + + +L ECA +80 +9 + + + + + +L vertebral +52 +7 + + + + + +L subclavian +108 +0 + + + + + Velocity ratios: + +--- --+-----+ + +R PSV+L PSV+ + +--- --+-----+ +Max ICA / Mid CCA Ratio+0.78 +0.85 + + +--- --+-----+ Prepared and electronically signed by Iván Pineda MD 12/12/2019 15:24 [facility] [place], [place], [facility] Cardiology Results From [facility] - 12/12/2019 3:24 PM EDT [facility] Carotid Duplex Report Ordering Physician: Colton Marroquin MD [employer] Bal[employer] Technician: Coco Servin Shawn Interpreting Physician: Iván Pineda MD Location: [place] [address] Indications: Dizziness. Pt is pre-op for CABG. Conclusions 1. Mild carotid disease present with less than 50% stenosis involving the right internal carotid artery. 2. Mild carotid disease present with less than 50% stenosis involving the left internal carotid artery. 3. Normal antegrade flow involving the right vertebral artery. 4. Normal antegrade flow involving the left vertebral artery. History: Risk factors: Former tobacco use. Hypertension. Diabetes mellitus. Study data: Complete carotid duplex study. Grayscale 2D imaging, color Doppler imaging, and spectral Doppler analysis. Location: Vascular laboratory. Procedure: A vascular evaluation was performed with the patient in the supine position. Images were obtained using a [employer] E9 vascular ultrasound machine. Findings Carotid/vertebral arteries: Right common carotid: The distal vessel has minimalsmoothhomogeneous plaque. Right internal carotid: The proximal vessel has mixedheterogeneous plaque. Right vertebral: The arterial flow direction is antegrade. Left vertebral: The arterial flow direction is antegrade. Left common carotid: The mid vessel has minimalsmooth plaque. The distal vessel has minimalmixedheterogeneous plaque. Left internal carotid: The proximal vessel has mixedheterogeneous plaque. Arterial flow: + + + + +Location +PSV(cm/sec)+EDV(cm/sec)+ + + + + +R CCA , prox +94 +12 + + + + + +R CCA , mid +75 +9 + + + + + +R CCA , distal+62 +10 + + + + + +R ICA , prox +52 +11 + + + + + +R ICA , mid +59 +14 + + + + + +R ICA , distal+58 +14 + + + + + +R ECA +69 +6 + + + + + +R vertebral +57 +12 + + + + + +R subclavian +141 +0 + + + + + +L CCA , prox +75 +10 + + + + + +L CCA , mid +67 +8 + + + + + +L CCA , distal+63 +11 + + + + + +L ICA , prox +50 +9 + + + + + +L ICA , mid +45 +11 + + + + + +L ICA , distal+57 +9 + + + + + +L ECA +80 +9 + + + + + +L vertebral +52 +7 + + + + + +L subclavian +108 +0 + + + + + Velocity ratios: + +--- --+-----+ + +R PSV+L PSV+ + +--- --+-----+ +Max ICA / Mid CCA Ratio+0.78 +0.85 + + +--- --+-----+ Prepared and electronically signed by Iván Pineda MD 12/12/2019 15:24 [place] XR CHEST STANDARD (2 VW)on 0 12-12-2019 [facility], [facility] Results From [facility] - 12/12/2019 1:43 PM EDT Patient Name: DOUGLAS CALLAWAY Jr ---Diagnostic Radiology--- Exam Date/Time 12/12/2019 13:17:02 EDT Exam CR Chest PA/LAT Ordering Physician DOMINIQUE CARROLL, ALICIA dAams Accession Number [id number] CPT4 Codes 09990 () Reason For Exam preop evaluation Report CHEST (Frontal and lateral) History: Chest pain, dyspnea, preop Comparison: None available Findings: Frontal and lateral chest views show diminished lung volume with linear small bilateral basilar atelectasis without acute infiltrate or congestion. There is 1 cm round density projected at the left lung base that could represent overlying nipple versus lung nodule. Right diaphragm is mildly elevated. The heart is normal in size. There is no mediastinal widening or pleural effusion. There is mild spondylosis. There is mild gaseous distention of bowel loop in the partially visualized upper abdomen. IMPRESSION: 1 cm round density projected at the left lung base could represent overlying nipple versus lung nodule require further evaluation that may include repeat chest radiographs with nipple markers or chest CT. Other chronic changes. No acute infiltrate.. Report Dictated on --- Final --- Dictated: 12/12/2019 1:35 pm Dictating Physician: MD COLLINS AHMAD Signed Date and Time: 12/12/2019 1:42 pm Signed by: MD COLLINS AHMAD Transcribed Date and Time: 12/12/2019 1:35 [place] Patient Name: DOUGLAS SIMON Jr ---Diagnostic Radiology--- Exam Date/Time 12/12/2019 13:17:02 EDT Exam CR Chest PA/LAT Ordering Physician DOMINIQUE CARROLL, ALICIA Adams Accession Number [id number] CPT4 Codes 38082 () Reason For Exam preop evaluation Report CHEST (Frontal and lateral) History: Chest pain, dyspnea, preop Comparison: None available Findings: Frontal and lateral chest views show diminished lung volume with linear small bilateral basilar atelectasis without acute infiltrate or congestion. There is 1 cm round density projected at the left lung base that could represent overlying nipple versus lung nodule. Right diaphragm is mildly elevated. The heart is normal in size. There is no mediastinal widening or pleural effusion. There is mild spondylosis. There is mild gaseous distention of bowel loop in the partially visualized upper abdomen. IMPRESSION: 1 cm round density projected at the left lung base could represent overlying nipple versus lung nodule require further evaluation that may include repeat chest radiographs with nipple markers or chest CT. Other chronic changes. No acute infiltrate.. Report Dictated on --- Final --- Dictated: 12/12/2019 1:35 pm Dictating Physician: MD COLLINS AHMAD Signed Date and Time: 12/12/2019 1:42 pm Signed by: MD COLLINS AHMAD Transcribed Date and Time: 12/12/2019 1:35 [place] Vital Signs Date Time Vital Sign Value Performing Clinician Facility 02-21-2025 10:00-0400 Heart rate 72 /min Iban Ramirez MD Work Phone: [facility] 02-21-2025 10:00-0400 Respiratory rate 21 /min Iban Ramirez MD Work Phone: [facility] 02-21-2025 10:00-0400 SaO2% (BldA) [Mass fraction] 93 % Iban Ramirez MD Work Phone: [facility] 02-21-2025 08:00-0400 Diastolic blood pressure 80 mm[Hg] Iban Ramirez MD Work Phone: [facility] 02-21-2025 08:00-0400 Systolic blood pressure 162 mm[Hg] Iban Ramirez MD Work Phone: [facility] [email or web address] 02-21-2025 07:48-0400 Body temperature 97.81 [degF] Iban Ramirez MD Work Phone: [facility] 02-20-2025 15:00-0400 Body height 172.7 cm Iban Ramirez MD Work Phone: [facility] 02-20-2025 15:00-0400 Body mass index (BMI) [Ratio] 24.37 kg/m2 Iban Ramirez MD Work Phone: [facility] [email or web address] 02-20-2025 15:00-0400 Body weight 72.7 kg Iban Ramirez MD Work Phone: [facility] 01-17-2024 14:36-0400 Diastolic blood pressure 77 mm[Hg] Karla Seamanis PA-C Work Phone: [facility] 01-17-2024 14:36-0400 Heart rate 51 /min Karla Seamanis PA-C Work Phone: [facility] 01-17-2024 14:36-0400 Systolic blood pressure 145 mm[Hg] Karla Seamanis PA-C Work Phone: [facility] 12-29-2023 12:34-0400 Diastolic blood pressure 57 mm[Hg] Naima Lee MD Work Phone: [facility] 12-29-2023 12:34-0400 Heart rate 54 /min Naima Lee MD Work Phone: [facility] 12-29-2023 12:34-0400 Respiratory rate 20 /min Naima Lee MD Work Phone: [facility] 12-29-2023 12:34-0400 SaO2% (BldA) [Mass fraction] 96 % Naima Lee MD Work Phone: [facility] 12-29-2023 12:34-0400 Systolic blood pressure 110 mm[Hg] Naima Lee MD Work Phone: [facility] 12-29-2023 12:15-0400 Body temperature 97.39 [degF] Naima Lee MD Work Phone: [facility] 12-29-2023 11:09-0400 Body height 172.7 cm Naima Lee MD Work Phone: [facility] 12-29-2023 11:09-0400 Body mass index (BMI) [Ratio] 24.33 kg/m2 Naima Lee MD Work Phone: [facility] 12-29-2023 11:090400 Body weight 72.58 kg Naima Lee MD Work Phone: [facility] 10-26-2023 16:04-0500 Body height 172.7 cm Sheryl Bassett MD Work Phone: [facility] 10-26-2023 16:04-0500 Body weight 72.7 kg Sheryl Bassett MD Work Phone: [facility] 10-26-2023 16:04-0500 Diastolic blood pressure 90 mm[Hg] Sheryl Bassett MD Work Phone: [facility] 10-26-2023 16:04-0500 Heart rate 50 /min Sheryl Bassett MD Work Phone: [facility] 10-26-2023 16:04-0500 SaO2% (BldA) [Mass fraction] 97 % Sheryl Bassett MD Work Phone: [facility] 10-26-2023 16:04-0500 Systolic blood pressure 176 mm[Hg] Sheryl Bassett MD Work Phone: [facility] 10-13-2023 13:34-0500 Body height 172.7 cm Karla Sauer PA-C Work Phone: [facility] 10-13-2023 13:34-0500 Body weight 73.03 kg Karla Lacho PA-C Work Phone: [facility] 10-13-2023 13:34-0500 Diastolic blood pressure 71 mm[Hg] Karla Lacho PA-C Work Phone: [facility] 10-13-2023 13:34-0500 Heart rate 73 /min Karla Lacho PA-C Work Phone: [facility] 10-13-2023 13:34-0500 Systolic blood pressure 158 mm[Hg] Karla Lacho PA-C Work Phone: [facility] 07-27-2023 14:17-0500 Body height 172.7 cm Sheryl Bassett MD Work Phone: [facility] 07-27-2023 14:17-0500 Diastolic blood pressure 45 mm[Hg] Sheryl Bassett MD Work Phone: [facility] 07-27-2023 14:17-0500 Heart rate 46 /min Sheryl Bassett MD Work Phone: [facility] 07-27-2023 14:17-0500 SaO2% (BldA) [Mass fraction] 97 % Sheryl Bassett MD Work Phone: [facility] 07-27-2023 14:17-0500 Systolic blood pressure 135 mm[Hg] Sheryl Bassett MD Work Phone: [facility] 05-13-2023 15:46-0400 Diastolic blood pressure 63 mm[Hg] Germaine Bray MD Work Phone: [facility] 05-13-2023 15:46-0400 Heart rate 61 /min Germaine Bray MD Work Phone: [facility] 05-13-2023 15:46-0400 Respiratory rate 16 /min Germaine Bray MD Work Phone: [facility] 05-13-2023 15:46-0400 SaO2% (BldA) [Mass fraction] 93 % Germaine Bray MD Work Phone: [facility] 05-13-2023 15:46-0400 Systolic blood pressure 111 mm[Hg] Germaine Bray MD Work Phone: [facility] 05-13-2023 15:32-0400 Body temperature 97.3 [degF] Germaine Bray MD Work Phone: [facility] 05-13-2023 14:18-0400 Body height 172.7 cm Germaine Bray MD Work Phone: [facility] 05-13-2023 14:18-0400 Body weight 75.3 kg Germaine Bray MD Work Phone: [facility] 04-06-2023 12:11-0400 Body height 172.7 cm Germaine Bray MD Work Phone: [facility] 04-06-2023 12:11-0400 Body weight 75.3 kg Germaine Bray MD Work Phone: [facility] 04-06-2023 12:11-0400 Diastolic blood pressure 59 mm[Hg] Germaine Bray MD Work Phone: [facility] 04-06-2023 12:11-0400 Heart rate 43 /min Germaine Bray MD Work Phone: [facility] 04-06-2023 12:11-0400 Systolic blood pressure 120 mm[Hg] Germaine Bray MD Work Phone: [facility] 07-09-2022 14:17-0400 Body height 172.[address] Iván Case Work Phone: [facility] Work Phone: 07-09-2022 14:17-0400 Body mass index (BMI) [Ratio] 25.2 kg/m2 Dr. Iván Case Work Phone: [facility] Work Phone: 07-09-2022 14:17-0400 Body weight 75.[address] Iván Case Work Phone: [facility] Work Phone: 07-09-2022 14:17-0400 Diastolic blood pressure 67 mm[Hg] Dr. Iván Case Work Phone: [facility] Work Phone: 07-09-2022 14:17-0400 Heart rate 66 /min Dr. Iván Case Work Phone: [facility] Work Phone: 07-09-2022 14:17-0400 Respiratory rate 18 /min Dr. Iván Case Work Phone: [facility] Work Phone: 07-09-2022 14:17-0400 SaO2% (BldA) [Mass fraction] 94 % Dr. Iván Case Work Phone: [facility] Work Phone: 07-09-2022 14:17-0400 Systolic blood pressure 104 mm[Hg] Dr. Iván Case Work Phone: [facility] Work Phone: 01-30-2022 21:51-0400 Diastolic blood pressure 69 mm[Hg] Dr. Iván Case Work Phone: [facility] Work Phone: 01-30-2022 21:51-0400 Heart rate 70 /min Dr. Iván Case Work Phone: [facility] Work Phone: 01-30-2022 21:51-0400 Respiratory rate 15 /min Dr. Iván Case Work Phone: [facility] Work Phone: 01-30-2022 21:51-0400 Systolic blood pressure 117 mm[Hg] Dr. Iván Case Work Phone: [facility] Work Phone: 01-30-2022 20:57-0400 Body height 172.[address] Iván Case Work Phone: [facility] Work Phone: 01-30-2022 20:57-0400 Body mass index (BMI) [Ratio] 24.3 kg/m2 Dr. Iván Case Work Phone: [facility] Work Phone: 01-30-2022 20:57-0400 Body temperature 98.1 [degF] Dr. Iván Case Work Phone: [facility] Work Phone: 01-30-2022 20:57-0400 Body weight 72.[address] Iván Case Work Phone: [facility] Work Phone: 01-30-2022 20:57-0400 SaO2% (BldA) [Mass fraction] 96 % Dr. Iván Case Work Phone: [facility] Work Phone: 01-21-2022 09:23-0400 Body temperature 98.6 [degF] Dr. Iván Case Work Phone: [facility] Work Phone: 01-21-2022 09:23-0400 Diastolic blood pressure 60 mm[Hg] Dr. Iván Case Work Phone: [facility] Work Phone: 01-21-2022 09:23-0400 Heart rate 61 /min Dr. Iván Case Work Phone: [facility] Work Phone: 01-21-2022 09:23-0400 Respiratory rate 16 /min Dr. Iván Case Work Phone: [facility] Work Phone: 01-21-2022 09:23-0400 SaO2% (BldA) [Mass fraction] 92 % Dr. Iván Case Work Phone: [facility] Work Phone: 01-21-2022 09:23-0400 Systolic blood pressure 103 mm[Hg] Dr. Iván Case Work Phone: [facility] Work Phone: 01-21-2022 07:10-0400 Body height 172.[address] Iván Case Work Phone: [facility] Work Phone: 01-21-2022 07:10-0400 Body mass index (BMI) [Ratio] 25.5 kg/m2 Dr. Iván Case Work Phone: [facility] Work Phone: 01-21-2022 07:10-0400 Body weight 76.[address] Iván Case Work Phone: [facility] Work Phone: 09-04-2021 15:00-0500 Body temperature 97.5 [degF] Dr. Iván Case Work Phone: [facility] Work Phone: 09-04-2021 15:00-0500 Diastolic blood pressure 72 mm[Hg] Dr. Iván Case Work Phone: [facility] Work Phone: 09-04-2021 15:00-0500 Heart rate 59 /min Dr. Iván Case Work Phone: [facility] Work Phone: 09-04-2021 15:00-0500 Respiratory rate 16 /min Dr. Iván Case Work Phone: [facility] Work Phone: 09-04-2021 15:00-0500 SaO2% (BldA) [Mass fraction] 96 % Dr. Iván Case Work Phone: [facility] Work Phone: 09-04-2021 15:00-0500 Systolic blood pressure 123 mm[Hg] Dr. Iván Case Work Phone: [facility] Work Phone: 09-02-2021 06:52-0500 Body height [address] Iván Case Work Phone: [facility] Work Phone: 09-02-2021 06:52-0500 Body mass index (BMI) [Ratio] 25.9 kg/m2 Dr. Iván Case Work Phone: [facility] Work Phone: 09-02-2021 06:52-0500 Body weight 77.[address] Iván Case Work Phone: [facility] Work Phone: 12-20-2019 11:13-0400 BP Diastolic 81 mm[Hg] Colton Marroquin [facility] [place] [facility] [place] 12-20-2019 11:13-0400 BP Systolic 130 mm[Hg] Colton Marroquin [facility] [place] [facility] [place] 12-20-2019 11:13-0400 Pulse (Heart Rate) 85 /min Colton Marroquin [facility] [place] 12-20-2019 11:13-0400 Pulse Oximetry 99 % Colton Marroquin [facility] [place] [facility] [place] 12-20-2019 11:13-0400 Respiratory Rate 18 /min Col[place] [facility] [place] 12-20-2019 07:00-0400 BMI (Body Mass Index) 26.02 kg/m2 Colton Marroquin [facility] [place] 12-20-2019 07:00-0400 Body Temperature 97.9 [degF] Col[place] Mar[place]quin [facility] [place] 12-20-2019 07:00-0400 Body weight 77.61 kg Colton Marroquin [facility] [place] [facility] [place] 12-19-2019 04:00-0400 Height 172.7 cm Colton Marroquin [facility] [place] [facility] [place] 12-13-2019 11:55-0400 BMI (Body Mass Index) 25.85 kg/m2 Colton Marroquin [facility] [place] 12-13-2019 11:55-0400 Body weight 77.11 kg Colton Marroquin [facility] [place] [facility] [place] 12-13-2019 11:55-0400 Height 172.7 cm [place], [place] NEGATED: Highlighted [id number] 11:10-0400 Body height 172.72 cm Mirella Beckrest CRAFT RECRUITER [facility] Work Phone: NEGATED: Highlighted [id number] 11:10-0400 Body height 173 cm Mirella Beckrest CRAFT RECRUITER [facility] Work Phone: NEGATED: Highlighted [id number] 11:10-0400 Body mass index (BMI) [Ratio] 24.72 kg/m2 Mirella Beckrest CRAFT RECRUITER [facility] Work Phone: NEGATED: Highlighted [id number] 11:10-0400 Body weight 73.48 kg Mirella Beckrest CRAFT RECRUITER [facility] Work Phone: NEGATED: Highlighted [id number] 11:10-0400 Body weight 74 kg Mirella Beckrest CRAFT RECRUITER [facility] Work Phone: NEGATED: Highlighted [id number] 10:06-0400 Body height 172.72 cm Gemini Razo CRAFT RECRUITER [facility] Work Phone: NEGATED: Highlighted [id number] 10:06-0400 Body height 173 cm Gemini Danni CRAFT RECRUITER [facility] Work Phone: NEGATED: Highlighted [id number] 10:06-0400 Body mass index (BMI) [Ratio] 24.72 kg/m2 Gemini Danni CRAFT RECRUITER [facility] Work Phone: NEGATED: Highlighted [id number] 10:06-0400 Body weight 73.48 kg Gemini Danni CRAFT RECRUITER [facility] Work Phone: NEGATED: Highlighted [id number] 10:06-0400 Body weight 74 kg Gemini Danni CRAFT RECRUITER [facility] [place] Work Phone: Encounters Encounter Date Encounter Type Care Provider Facility Start: 02-20-2025 End: 02-21-2025 Evaluation and management of inpatient Iban Ramirez MD Work Phone: [facility] Surgical Trauma Neuro Intensive Care Unit [facility] ICU T2 Comment on above: Intracranial hemorrh age (HCC) (Primary Dx) Start: 02-20-2025 Emergency department patient visit IVÁN CASE [facility] Start: 02-20-2025 End: 02-20-2025 Emergency department patient visit Iván Case Facility:[facility] Start: 02-20-2025 End: 02-20-2025 ambulatory Iván Case Facility:[facility] Start: 02-12-2025 End: 02-12-2025 ambulatory Iván Case Facility:[facility] Start: 02-01-2025 End: 02-01-2025 ambulatory Iván Case Facility:[facility] Start: 01-23-2025 End: 01-23-2025 ambulatory Iván Case Facility:[facility] Start: 12-25-2024 End: 12-25-2024 ambulatory Nilay Ellsworth Facility:[facility] Start: 11-22-2024 End: 11-22-2024 ambulatory Iván Case Facility:[facility] Start: 11-21-2024 End: 11-21-2024 ambulatory Elba Berger NP Facility:[facility] Start: 10-26-2024 End: 10-26-2024 ambulatory Iván Case Facility:[facility] Start: 10-24-2024 End: 10-24-2024 ambulatory Iván Case Facility:[facility] Start: 09-26-2024 End: 09-26-2024 ambulatory Iván Case Facility:[facility] Start: 08-14-2024 End: 08-14-2024 ambulatory Iván Case Facility:[facility] Start: 07-27-2024 End: 07-27-2024 ambulatory Iván Case Facility:[facility] Start: 07-27-2024 ambulatory Iván Case Facilit y:[facility] Start: 07-25-2024 End: 07-26-2024 ambulatory Iván Case Facility:[facility] Start: 07-10-2024 End: 07-10-2024 ambulatory Iván Whitley Sharifa Facility:[facility] [place] Start: 04-26-2024 End: 04-26-2024 ambulatory Iván Whitley Sharifa Facility:[facility] Start: 04-20-2024 End: 04-20-2024 ambulatory Iván Whitley Sharifa Facility:[facility] Start: 03-28-2024 End: 03-28-2024 ambulatory Iván Gutierrez Sharifa Facility:[facility] Start: 03-26-2024 End: 03-26-2024 ambulatory Iván Whitley Sharifa Facility:[facility] Start: 01-18-2024 End: 01-18-2024 ambulatory IVÁN Gutierrez SHARIFA Facility:[facility] Start: 01-18-2024 End: 01-18-2024 ambulatory Karla Castro PT, T [facility] Start: 01-18-2024 End: 01-18-2024 Patient encounter procedure Karla Castro PT, [facility] Comment on above: Diabetes mellitus wi thout complication (HCC) (Primary Dx); Abnormality of gait due to impairment of balance; Weakness of both lower extremities; Abnormality of gait; Imbalance Start: 01-17-2024 End: 01-18-2024 ambulatory KARLA SAUER Facility:[facility] Start: 01-17-2024 End: 01-17-2024 Patient encounter procedure Karla Sauer PA-C Work Phone: [facility] Comment on above: Exocrine pancreatic insufficiency (Primary Dx); Nausea and vomiting, unspecified vomiting type Start: 01-10-2024 End: 01-10-2024 ambulatory IVÁN CASE Facility:[facility] Start: 01-10-2024 End: 01-10-2024 ambulatory María Orosco COMPUTER FORENSIC EXAMINER Work Phone: [facility] Start: 01-10-2024 End: 01-10-2024 Patient encounter procedure María Orosco COMPUTER FORENSIC EXAMINER Work Phone: [facility] Comment on above: Diabetes mellitus wi thout complication (HCC) (Primary Dx); Weakness of both lower extremities; Abnormality of gait; Imbalance Start: 01-06-2024 End: 01-06-2024 ambulatory IVÁN CASE Facility:[facility] Start: 01-06-2024 End: 01-06-2024 ambulatory Karla Castro PT, DPT [facility] Start: 01-06-2024 End: 01-06-2024 Patient encounter procedure Karla Castro PT, DPT [facility] Comment on above: Diabetes mellitus wi thout complication (HCC) (Primary Dx); Weakness of both lower extremities; Abnormality of gait; Imbalance Start: 12-29-2023 End: 12-29-2023 ambulatory Karla Sauer Facility:[facility] Start: 12-29-2023 End: 12-29-2023 Subsequent hospital visit by physician Naima Lee MD Work Phone: Ambulatory Surgery Comment on above: Diarrhea, unspecifie d type [R19.7] Start: 12-22-2023 ambulatory Naima dudley MD Work Phone: Ambulatory Surgery Start: 12-15-2023 End: 12-15-2023 ambulatory IVÁN CASE Facility:[facility] Start: 12-15-2023 End: 12-15-2023 ambulatory Elba Samaniego PT, DPT Work Phone: [facility] Comment on above: Diabetes mellitus wi thout complication (HCC) (Primary Dx); Weakness of both lower extremities; Abnormality of gait; Imbalance Start: 12-09-2023 End: 12-09-2023 ambulatory IVÁN CASE Facility:[facility] Start: 12-09-2023 End: 12-09-2023 ambulatory María Orosco PTA Work Phone: [facility] Comment on above: Diabetes mellitus wi thout complication (HCC) (Primary Dx); Weakness of both lower extremities; Abnormality of gait; Imbalance Start: 12-02-2023 End: 12-02-2023 ambulatory SHERYL Y SERJIO Facility:[facility] Start: 11-29-2023 End: 11-29-2023 ambulatory María Jacksony COMPUTER FORENSIC EXAMINER Work Phone: [facility] Comment on above: Diabetes mellitus wi thout complication (HCC) (Primary Dx); Weakness of both lower extremities; Abnormality of gait; Imbalance Start: 11-24-2023 End: 11-24-2023 ambulatory María Jacksony COMPUTER FORENSIC EXAMINER Work Phone: [facility] Comment on above: Diabetes mellitus wi thout complication (HCC) (Primary Dx); Weakness of both lower extremities; Abnormality of gait; Imbalance Start: 11-18-2023 End: 11-18-2023 ambulatory Karla Castro PT, DPT [facility] Comment on above: Diabetes mellitus wi thout complication (HCC) (Primary Dx); Weakness of both lower extremities; Abnormality of gait; Imbalance Start: 11-15-2023 Telephone encounter Naima rivero MD Work Phone: [facility] Comment on above: Appointment Start: 11-11-2023 End: 11-11-2023 ambulatory IVÁN CASE Facility:[facility] Start: 11-11-2023 Telephone encounter Karla Sauer PA-C Work Phone: [facility] DE[facility] Comment on above: Appointment Start: 11-11-2023 End: 11-11-2023 ambulatory María O'Miranda COMPUTER FORENSIC EXAMINER Work Phone: [facility] Comment on above: Diabetes mellitus wi thout complication (HCC) (Primary Dx); Weakness of both lower extremities; Abnormality of gait; Imbalance Start: 11-05-2023 Telephone encounter Karla Sauer PA-C Work Phone: [facility] Comment on above: Medication Problem Start: 11-03-2023 End: 11-03-2023 ambulatory IVÁN CASE Facility:[facility] Start: 11-03-2023 End: 11-03-2023 ambulatory María O'Bethel COMPUTER FORENSIC EXAMINER Work Phone: [facility] Comment on above: Diabetes mellitus wi thout complication (HCC) (Primary Dx); Weakness of both lower extremities; Abnormality of gait; Imbalance Start: 10-28-2023 End: 10-28-2023 ambulatory María Orosco COMPUTER FORENSIC EXAMINER Work Phone: [facility] Comment on above: Diabetes mellitus wi thout complication (HCC) (Primary Dx); Weakness of both lower extremities; Abnormality of gait; Imbalance Start: 10-26-2023 End: 10-27-2023 ambulatory SHERYL BASSETT Facility:[facility] Start: 10-26-2023 End: 10-27-2023 Office outpatient visit 15 minutes Sheryl Bassett MD Work Phone: Neurology Comment on above: Abnormality of gait due to impairment of balance (Primary Dx); Transient cerebral ischemia, unspecified type Start: 10-25-2023 Refill Germaine Bray MD Work Phone: [facility] Comment on above: Refill Request Start: 10-21-2023 End: 10-21-2023 ambulatory IVÁN CASE Facility:[facility] Start: 10-21-2023 End: 10-21-2023 ambulatory Karla Castro PT, DPT [facility] Comment on above: Diabetes mellitus wi thout complication (HCC) (Primary Dx); Weakness of both lower extremities; Abnormality of gait; Imbalance Start: 10-13-2023 End: 10-13-2023 ambulatory KARLA SAUER Facility:[facility] Start: 10-13-2023 End: 10-13-2023 Patient encounter procedure Karla Sauer PA-C Work Phone: [facility] Comment on above: Postprocedural leaka ge from bile duct; Diarrhea, unspecified type; Exocrine pancreatic insufficiency Start: 10-11-2023 End: 10-11-2023 ambulatory María Orosco COMPUTER FORENSIC EXAMINER Work Phone: [facility] Comment on above: Diabetes mellitus wi thout complication (HCC) (Primary Dx); Weakness of both lower extremities; Abnormality of gait; Imbalance Start: 10-06-2023 End: 10-06-2023 ambulatory IVÁN CASE Facility[facility] Start: 09-23-2023 End: 09-23-2023 ambulatory IVÁN CASE Facility:[facility] Start: 09-21-2023 End: 09-21-2023 ambulatory IVÁN CASE Facility:[facility] Start: 09-16-2023 End: 09-16-2023 Emergency department patient visit JOSE Malloy Facility:[facility] Start: 09-16-2023 End: 09-16-2023 ambulatory IVÁN CASE Facility:[facility] Start: 08-19-2023 End: 08-19-2023 ambulatory IVÁN CASE Facility:[facility] Start: 08-19-2023 End: 08-19-2023 ambulatory Karla Castro PT, DPT [facility] Comment on above: Diabetes mellitus wi thout complication (HCC) (Primary Dx); Weakness of both lower extremities; Abnormality of gait; Imbalance Start: 08-18-2023 Telephone encounter Elba Samaniego PT, DPT Work Phone: Re[facility] Start: 08-12-2023 End: 08-12-2023 ambulatory SHERYL BASSETT Facility:[facility] Start: 08-12-2023 End: 08-12-2023 ambulatory Emg 300) Work Phone: Neurology Comment on above: EMG Start: 08-12-2023 End: 08-12-2023 Patient encounter procedure Emg 2 Neur [facility] Stro (Max Weight: 300) Work Phone: [facility] Start: 08-11-2023 End: 08-11-2023 ambulatory IVÁN CASE Facility:[facility] Start: 08-11-2023 End: 08-11-2023 ambulatory Elba Samaniego PT, DPT Work Phone: [facility] Comment on above: Abnormality of gait (Primary Dx); Weakness of both lower extremities; Imbalance Start: 07-27-2023 End: 07-28-2023 ambulatory SHERYL Y SERJIO Facility:[facility] Start: 07-27-2023 End: 07-27-2023 Office outpatient new 45 minutes Sheryl Bassett MD Work Phone: Neurology Comment on above: Weakness of both low er extremities Start: 07-27-2023 Telephone encounter Sheryl birmingham MD Work Phone: Neurology Comment on above: Appointment Start: 07-26-2023 End: 07-26-2023 ambulatory KARLA Floyd SEAMANIS Facility:[facility] Start: 06-10-2023 End: 06-11-2023 ambulatory GERMAINE TOMY Facility:[facility] Start: 05-13-2023 ambulatory [facility] Facility: [facility] Start: 05-13-2023 End: 05-13-2023 Preprocedural examination done Germaine Bray MD Work Phone: [facility] Start: 05-13-2023 End: 05-13-2023 Subsequent hospital visit by physician Germaine Bray MD Work Phone: [facility] Comment on above: Gastroparesis [K31.8 4] Start: 05-13-2023 Encounter for other preprocedural examination GERMAINE BRAY [facility] Start: 04-22-2023 End: 04-22-2023 ambulatory GERMAINE BRAY Facility:[facility] Start: 04-22-2023 End: 04-22-2023 Subsequent hospital visit by physician [facility] Work Phone: Nuclear Medicine Comment on above: Nausea [R11.0] Start: 04-08-2023 End: 04-09-2023 ambulatory GERMAINE BRAY Facility:[facility] Start: 04-08-2023 Telephone encounter Germaine stokes MD Work Phone: [facility] Comment on above: Appointment (EGD) Start: 04-08-2023 End: 04-08-2023 Subsequent hospital visit by physician Ct Prep [facility] W[facility] Cat Scan Comment on above: Nausea [R11.0] Start: 04-06-2023 End: 04-06-2023 ambulatory GERMAINE BRAY Facility:[facility] Start: 04-06-2023 End: 04-06-2023 Patient encounter procedure Germaine Bray MD Work Phone: [facility] Comment on above: Nausea (Primary Dx); Gastroparesis; Heartburn Start: 07-16-2022 End: 07-16-[address] Iván Case Work Phone: [facility] Work Phone: Start: 07-16-2022 End: 07-16-[address] Iván Case Work Phone: [place] Start: 07-09-2022 End: 07-09-[address] Iván Case Work Phone: [facility] Start: 07-02-[address] Iván Case Work Phone: [facility] Start: 04-20-2022 End: 04-20-2022 ambulatory [facility] Work Phone: Start: 04-20-2022 End: 04-20-2022 Discharged Recurring [facility] Start: 02-13-[address] Iván Case Work Phone: [facility] Start: 02-12-2022 End: 02-12-[address] Iván Case Work Phone: [place] Start: 02-03-2022 End: 02-03-[address] Iván Case Work Phone: [facility] Start: 01-30-2022 End: 01-30-2022 Emergency department patient visit Dr. Iván Case Work Phone: [facility] Start: 01-21-2022 Non-patient / Non-visit Dr. Genie Case Work Phone: [facility] Start: 01-21-2022 End: 01-21-2022 Admission to same day surgery center Dr. Iván Case Work Phone: [facility] Start: 01-21-2022 Non-patient / Non-visit Dr. Genie Case Work Phone: [facility] Start: 01-06-2022 End: 01-06-2022 Patient encounter procedure [place] Start: 12-16-2021 End: 12-16-2021 Pt evaluation Hiram Paul MD Work Phone: [facility] Work Phone: Start: 12-11-2021 End: 12-11-[address] Iván Case Work Phone: [facility] Start: 11-07-2021 End: 11-07-[address] Iván Case Work Phone: [place] Start: 09-24-2021 End: 09-24-[address] Iván Case Work Phone: [facility] Start: 09-07-2021 Non-patient / Non-visit Dr. Genie Case Work Phone: [facility] Start: 09-04-2021 Non-patient / Non-visit Dr. Genie Case Work Phone: [facility] Start: 09-03-2021 Non-patient / Non-visit Dr. Genie Case Work Phone: [facility] Start: 09-03-2021 Non-patient / Non-visit Dr. Genie Case Work Phone: [facility] Start: 09-02-2021 Non-patient / Non-visit Dr. Genie Case Work Phone: [facility] Start: 09-02-2021 Non-patient / Non-visit Dr. Genie Case Work Phone: [facility] Start: 09-01-2021 Non-patient / Non-[facility] Start: 09-01-2021 End: 09-04-2021 Evaluation and management of inpatient Dr. Iván Caes Work Phone: [facility] 3 Start: 11-08-2020 End: 11-08-2020 Patient encounter procedure External Provider [facility] Start: 11-08-2020 Results Only External Provider [facility] Start: 12-15-2019 End: 12-20-2019 Evaluation and management of inpatient Colton Barrientos Marroquin Work Phone: [facility] Comment on above: S/P CABG x 3 (Primar y Dx); CAD in [employer] artery Start: 12-13-2019 End: 12-13-2019 Subsequent hospital visit by physician Colton Chowinal Work Phone: [facility] Comment on above: Arrived Start: 12-12-2019 End: 12-12-2019 Subsequent hospital visit by physician Alicia Carroll Work Phone: [facility] Comment on above: CAD, multiple vessel ; Preoperative examination Start: 12-12-2019 End: 12-12-2019 Subsequent hospital visit by physician Colton Chowinal Work Phone: [facility] Comment on above: Dizziness Procedures Date Procedure Procedure Detail Performing Clinician Start: 02-21-2025 Glucose quantitative blood xcpt reagent strip Iban Ramirez MD Work Phone: Start: 02-21-2025 Basic metabolic pane l calcium total Karla Roblero MD Work Phone: Start: 02-20-2025 Glucose quantitative blood xcpt reagent strip Iban Ramirez MD Work Phone: Start: 02-20-2025 Glucose quantitative blood xcpt reagent strip Iban Ramirez MD Work Phone: Start: 02-20-2025 Ct cervical spine w/ o contrast material Elba Thomas MD Work Phone: Start: 02-20-2025 Ct head/brain w/o co ntrast material Karla Roblero MD Work Phone: Start: 02-20-2025 Basic metabolic pane l calcium total Karla Roblero MD Work Phone: Start: 12-29-2023 Level iv surg pathol ogy gross&microscopic exam Naima Lee MD Work Phone: Start: 12-29-2023 Gluc bld gluc mntr d ev cleared fda spec home use Naima Lee MD Work Phone: Start: 12-29-2023 Colonoscopy flx dx w /collj spec when pfrmd Karla Sauer PA-C Work Phone: Start: 12-29-2023 Colonoscopy Karla Reyes lugofelisa PT, DPT Start: 08-12-2023 Nerve conduction chloe dies 5-6 studies Sheryl Bassett MD Work Phone: Start: 05-13-2023 Esophagogastroduoden oscopy transoral diagnostic Germaine Bray MD Work Phone: Start: 04-22-2023 Gastric emptying imaging study Germaine Bray MD Work Phone: Start: 04-08-2023 Ct abdomen & pelvis w/contrast material Germaine Bray MD Work Phone: Start: 01-21-2022 Endoscopic retrograd e cholangiopancreatography Dr. Iván Case Work Phone: Start: 01-21-2022 Fluoroscopic guidance Amy Case Work Phone: Start: 12-16-2021 End: 12-16-2021 BP scrn no perf at interval Hiram Paul MD Work Phone: Start: 12-16-2021 End: 12-16-2021 Current tobacco non-user cad cap copd pv dm Hiram Paul MD Work Phone: Start: 12-16-2021 End: 12-16-2021 Docd contact that fx existed & pt tsted/txd op Hiram Paul MD Work Phone: Start: 12-16-2021 End: 12-16-2021 Docrev cur meds by elig virgen reyes MD Work Phone: Start: 12-16-2021 End: 12-16-2021 Patient encounter procedure Hiram Paul MD Work Phone: Start: 12-16-2021 End: 12-16-2021 POLAR CARE KODIAK COMBO - SHOULDER (BREG) Hiram Paul MD Work Phone: Start: 12-16-2021 End: 12-16-2021 Pos pain assess no f/u doc Hiram Paul MD Work Phone: Start: 12-16-2021 End: 12-16-2021 Radex shoulder complete minimum 2 views Hiram Paul MD Work Phone: Start: 12-16-2021 End: 12-16-2021 So acro/clav can web pre ots Hiram reyes MD Work Phone: Start: 11-28-2021 End: 11-28-2021 BP scrn no perf at interval Dale pruitt MD Work Phone: Start: 11-28-2021 End: 11-28-2021 Calc BMI norm parameters Dale Penny MD Work Phone: Start: 11-28-2021 End: 11-28-2021 Current tobacco non-user cad cap copd pv dm Dale Penny MD Work Phone: Start: 11-28-2021 End: 11-28-2021 Docd contact that fx existed & pt tsted/txd op Dale Penny MD Work Phone: Start: 11-28-2021 End: 11-28-2021 Docrev cur meds by luis angel Penny MD Work Phone: Start: 11-28-2021 End: 11-28-2021 Falls plan of care not done for unspecified reasons Dale Penny MD Work Phone: Start: 11-28-2021 End: 11-28-2021 Falls risk not documented - reason not given Dale Penny MD Work Phone: Start: 11-28-2021 End: 11-28-2021 Pain doc pos and plan Dale Penny MD Work Phone: Start: 11-28-2021 End: 11-28-2021 Patient encounter procedure Dale pruitt MD Work Phone: Start: 11-28-2021 End: 11-28-2021 Pt falls assess docd 2/> falls/fall w/injury/yr Dale Penny MD Work Phone: Start: 09-02-2021 End: 09-02-2021 [address]iop[address] Dr. Iván Case Work Phone: Start: 09-02-2021 End: 09-02-[address]21 Acid fast bacilli culture Dr. Iván pham Work Phone: Start: 09-02-2021 End: 09-02-2021 Cytopathology procedure, preparation of smear, genital source Dr. Iván Case Work Phone: Start: 09-02-2021 Cholangiogram/ O R,Initial Dr. Iván Case Work Phone: Start: 09-02-2021 End: 09-02-2021 O.R. Fluoro for C-Arm Dr. Iván Case Work Phone: Start: 09-02-[address] Iván Case Work Phone: Start: 09-01-[address] Iván watts Work Phone: Start: 09-01-2021 Computed tomography of abdomen and pelvis with intravenous contrast Dr. Iván Case Work Phone: Start: 11-08-2020 EXTERNAL LAB External P rovider Start: 11-08-2020 EXTERNAL IMAGING Manager [employer] Provider Start: 12-20-2019 Potassium serum plas ma/whole blood Jarocho Ambrocio Work Phone: Start: 12-20-2019 Gluc bld gluc mntr d ev cleared fda spec home use Colton A Marroquin Work Phone: Start: 12-20-2019 TRANSFUSE RED BLOOD CELLS Alicia Carroll Work Phone: Start: 12-20-2019 Gluc bld gluc mntr d ev cleared fda spec home use Colton A Marroquin Work Phone: Start: 12-20-2019 Radiologic exam chest single view Colton A Marroquin Work Phone: Start: 12-20-2019 Potassium serum plas ma/whole blood Colton A Marroquin Work Phone: Start: 12-20-2019 Basic metabolic pane l calcium total Colton A Marroquin Work Phone: Start: 12-20-2019 Blood count complete automated Colton A Marroquin Work Phone: Start: 12-19-2019 Gluc bld gluc mntr d ev cleared fda spec home use Colton A Marroquin Work Phone: Start: 12-19-2019 Gluc bld gluc mntr d ev cleared fda spec home use Colton A Marroquin Work Phone: Start: 12-19-2019 Basic metabolic pane l calcium total Colton A Marroquin Work Phone: Start: 12-19-2019 Blood count hemoglobin Colton A Marroquin Work Phone: Start: 12-19-2019 Gluc bld gluc mntr d ev cleared fda spec home use Colton A Marroquin Work Phone: Start: 12-19-2019 Gluc bld gluc mntr d ev cleared fda spec home use Colton A Marroquin Work Phone: Start: 12-19-2019 Blood typing serologic abo Alicia Carroll Work Phone: Start: 12-19-2019 Potassium serum plas ma/whole blood Colton A Marroquin Work Phone: Start: 12-19-2019 Radiologic exam chest single view Colton A Marroquin Work Phone: Start: 12-19-2019 Basic metabolic pane l calcium total Colton A Marroquin Work Phone: Start: 12-19-2019 Blood count complete automated Colton A Marroquin Work Phone: Start: 12-18-2019 Gluc bld gluc mntr d ev cleared fda spec home use Colton A Marroquin Work Phone: Start: 12-18-2019 Gluc bld gluc mntr d ev cleared fda spec home use Colton A Marroquin Work Phone: Start: 12-18-2019 Radiologic exam chest single view Colton A Marroquin Work Phone: Start: 12-18-2019 Basic metabolic pane l calcium total Colton A Marroquin Work Phone: Start: 12-18-2019 Blood count complete automated Colton A Marroquin Work Phone: Start: 12-17-2019 Gluc bld gluc mntr d ev cleared fda spec home use Colton A Marroquin Work Phone: Start: 12-17-2019 Gluc bld gluc mntr d ev cleared fda spec home use Colton A Marroquin Work Phone: Start: 12-17-2019 Gluc bld gluc mntr d ev cleared fda spec home use Colton A Marroquin Work Phone: Start: 12-17-2019 Gluc bld gluc mntr d ev cleared fda spec home use Colton A Marroquin Work Phone: Start: 12-17-2019 End: 12-17-2019 Gluc bld gluc mntr dev cleared fda spec home use Colton A Marroquin Work Phone: Start: 12-17-2019 Ecg routine ecg w/le ast 12 lds w/i&r Colton A Marroquin Work Phone: Start: 12-17-2019 Radiologic exam chest single view Colton A Marroquin Work Phone: Start: 12-17-2019 Gluc bld gluc mntr d ev cleared fda spec home use Colton A Marroquin Work Phone: Start: 12-17-2019 Assay of magnesium Colton A Marroquin Work Phone: Start: 12-17-2019 Basic metabolic pane l calcium total Colton A Marroquin Work Phone: Start: 12-17-2019 Blood count complete automated Colton A Marroquin Work Phone: Start: 12-17-2019 End: 12-17-2019 Gluc bld gluc mntr dev cleared fda spec home use Colton A Marroquin Work Phone: Start: 12-17-2019 End: 12-17-2019 Gluc bld gluc mntr dev cleared fda spec home use Colton A Marroquin Work Phone: Start: 12-16-2019 End: 12-16-2019 Gluc bld gluc mntr dev cleared fda spec home use Colton A Marroquin Work Phone: Start: 12-16-2019 End: 12-16-2019 Gluc bld gluc mntr dev cleared fda spec home use Colton A Marroquin Work Phone: Start: 12-16-2019 Gluc bld gluc mntr d ev cleared fda spec home use Colton A Marroquin Work Phone: Start: 12-16-2019 End: 12-16-2019 Gluc bld gluc mntr dev cleared fda spec home use Colton A Marroquin Work Phone: Start: 12-16-2019 End: 12-16-2019 Gluc bld gluc mntr dev cleared fda spec home use Colton A Marroquin Work Phone: Start: 12-16-2019 End: 12-16-2019 Gluc bld gluc mntr dev cleared fda spec home use Colton A Marroquin Work Phone: Start: 12-16-2019 History of coronary artery bypass grafting S/P CABG x 3 Iban Ramirez MD Work Phone: Start: 12-16-2019 End: 12-16-2019 Gluc bld gluc mntr dev cleared fda spec home use Colton A Marroquin Work Phone: Start: 12-16-2019 Gluc bld gluc mntr d ev cleared fda spec home use Colton A Marroquin Work Phone: Start: 12-16-2019 Gluc bld gluc mntr d ev cleared fda spec home use Colton A Marroquin Work Phone: Start: 12-16-2019 End: 12-16-2019 Gluc bld gluc mntr dev cleared fda spec home use Colton A Marroquin Work Phone: Start: 12-16-2019 Gluc bld gluc mntr d ev cleared fda spec home use Colton A Marroquin Work Phone: Start: 12-16-2019 Ecg routine ecg w/le ast 12 lds w/i&r Colton A Marroquin Work Phone: Start: 12-16-2019 Radiologic exam chest single view Colton A Marroquin Work Phone: Start: 12-16-2019 End: 12-16-2019 Gluc bld gluc mntr dev cleared fda spec home use Colton A Marroquin Work Phone: Start: 12-16-2019 Assay of magnesium Colton A Marroquin Work Phone: Start: 12-16-2019 Basic metabolic pane l calcium total Colton A Marroquin Work Phone: Start: 12-16-2019 Blood count complete automated Colton A Marroquin Work Phone: Start: 12-16-2019 End: 12-16-2019 Gluc bld gluc mntr dev cleared fda spec home use Colton A Marroquin Work Phone: Start: 12-16-2019 Gluc bld gluc mntr d ev cleared fda spec home use Colton A Marroquin Work Phone: Start: 12-15-2019 End: 12-15-2019 Gluc bld gluc mntr dev cleared fda spec home use Colton A Marroquin Work Phone: Start: 12-15-2019 End: 12-15-2019 Gluc bld gluc mntr dev cleared fda spec home use Colton A Marroquin Work Phone: Start: 12-15-2019 End: 12-15-2019 Gluc bld gluc mntr dev cleared fda spec home use Colton A Marroquin Work Phone: Start: 12-15-2019 End: 12-15-2019 TRANSFUSE PLATELETS Colton A Marroquin Work Phone: Start: 12-15-2019 Gluc bld gluc mntr d ev cleared fda spec home use Colton A Marroquin Work Phone: Start: 12-15-2019 EXTUBATION Reed Hernandez Work Phone: Start: 12-15-2019 History of coronary artery bypass grafting H/O coronary artery bypass surgery Dr. Iván Case Work Phone: Start: 12-15-2019 End: 12-15-2019 Gluc bld gluc mntr dev cleared fda spec home use Colton A Marroquin Work Phone: Start: 12-15-2019 Radiologic exam chest single view Colton A Marroquin Work Phone: Start: 12-15-2019 PATHOGEN REDUCED LEK UOREDUCED PLATELET PHERESIS Unknown Provider Result Start: 12-15-2019 PREPARE PLATELETS Colton A Marroquin Work Phone: Start: 12-15-2019 End: 12-15-2019 Gluc bld gluc mntr dev cleared fda spec home use Colton A Marroquin Work Phone: Start: 12-15-2019 OPERATIVE REPORT 3m Sca nning Start: 12-15-2019 Assay of magnesium Colton A Marroquin Work Phone: Start: 12-15-2019 Assay of phosphorus inorganic Colton A Marroquin Work Phone: Start: 12-15-2019 Basic metabolic pane l calcium total Colton A Marroquin Work Phone: Start: 12-15-2019 Blood count complete automated Colton A Marroquin Work Phone: Start: 12-15-2019 BLOOD GAS, ARTERIAL Lilli c A Marroquin Work Phone: Start: 12-15-2019 Calcium ionized Colton A Marroquin Work Phone: Start: 12-15-2019 PROTIME/INR & PTT Colton A Marroquin Work Phone: Start: 12-15-2019 ECHOCARDIOGRAM TRANSESOPHAGEAL Colton A Marroquin Work Phone: Start: 12-15-2019 Ecg routine ecg w/le ast 12 lds w/i&r Joshua R Ta Work Phone: Start: 12-15-2019 End: 12-15-2019 Gluc bld gluc mntr dev cleared fda spec home use Colton A Marroquin Work Phone: Start: 12-12-2019 Basic metabolic pane l calcium total Alicia Carroll Work Phone: Start: 12-12-2019 Blood count complete automated Alicia Carroll Work Phone: Start: 12-12-2019 Blood typing serologic abo Alicia Carroll Work Phone: Start: 12-12-2019 Hemoglobin glycosylated a1c Alicia Carroll Work Phone: Start: 12-12-2019 Hepatic function panel Alicia Carroll Work Phone: Start: 12-12-2019 Prothrombin time Alicia Carroll Work Phone: Start: 12-12-2019 Radiologic exam chest 2 views Alicia Carroll Work Phone: Start: 12-12-2019 Duplex scan extracra nial art compl bi study Colton A Marroquin Work Phone: NEGATED: Highlighted rowStart: 12-16-2021 End: 12-16-2021 Documentation of current medications Mirella Zarate LPN NEGATED: Highlighted rowStart: 11-28-2021 End: 11-28-2021 Documentation of current medications Gemini Razo LPN Plan of Treatment Date Care Activity Detail Author Start: 02-20-2035 DTaP/Tdap/Td Vaccines (3 - Td or Tdap) DTaP/Tdap/Td Vaccines (3 - Td or Tdap) [facility] Start: 09-29-2029 DTaP/Tdap/Td vaccine (2 - Td) DTaP/Tdap/Td vaccine (2 - Td) [place] Start: 09-29-2029 Urine microalbumin profile [facility] Start: 02-21-2026 Diabetes: Estimated Glomerular Filtration Rate for [facility] Diabetes: Estimated Glomerular Filtration Rate for Kidney Health [facility] Start: 12-28-2024 Screening for malignant neoplasm of colon [facility] Start: 06-12-2024 DIABETES SCREEN DIABETES SCREEN [facility] Start: 06-10-2024 BP Controlled (<130/80) BP Controlled (<130/80) [facility] Start: 05-07-2024 Covid-19 Vaccine ( season) Covid-19 Vaccine ( season) [facility] Start: 05-07-2024 Influenza vaccination Influenza Vaccine (#1) [facility] Start: 04-10-2024 End: 04-10-2024 Patient encounter procedure 04/10/2024 1:00 PM EDT Office Visit [facility] [address] [place] [address] Karla Sauer PA-C [address] [place] [address] 6 month follow up [facility] Comment on above: 6 month follow up Start: 04-06-2024 BP CONTROLLED (<130/80) BP CONTROLLED (<130/80) [facility] Start: 01-18-2024 End: 01-18-2024 Patient encounter procedure 01/18/2024 4:45 PM EDT OT/PT/Speech Visit [facility] [address] [place] [id number] Karla Castro, PT, DPT [address] [place] [address] Gait Abnormaility [facility] Comment on above: Gait Abnormaility Start: 01-17-2024 End: 01-17-2024 Patient encounter procedure 01/17/2024 2:30 PM EDT Office Visit [facility] [address] [place] [address] Karla Sauer PA-C [address] [place] [address] follow up/scope [facility] DE[facility] Comment on above: follow up/scope Start: 01-10-2024 End: 01-10-2024 Patient encounter procedure 01/10/2024 11:30 AM EDT OT/PT/Speech Visit [facility] [address] [place] [address] María Orosco, COMPUTER FORENSIC EXAMINER [address] [place] [address] Gait Abnormaility [facility] Comment on above: Gait Abnormaility Start: 10-23-2023 Covid-19 Vaccine ( season) Covid-19 Vaccine () [facility] Start: 09-06-2023 Advance Directive Discussion Advance Directive Discussion [facility] Start: 09-06-2023 Behavioral Health Screening Behavioral Health Screening [facility] Start: 09-06-2023 Depression Assessment Depression Assessment [facility] Start: 05-07-2023 Covid-19 Vaccine ( season) Covid-19 Vaccine () [facility] Start: 05-07-2023 Influenza vaccination [facility] Start: 04-06-2023 End: 06-06-2023 CREATININE BLD CREATININE BLD Lab Routine Nausea Expected: 04/06/2023, Expires: 06/06/2023 [facility] Work Phone: Comment on above: Expected: 04/06/2023, Expires: Start: 11-03-2022 COVID-19 VACCINE (5 - Moderna series) COVID-19 VACCINE (5 - Moderna series) [facility] Start: 09-06-2022 ADVANCE DIRECTIVE DISCUSSION ADVANCE DIRECTIVE DISCUSSION [facility] Start: 09-06-2022 DEPRESSION ASSESSMENT DEPRESSION ASSESSMENT [facility] Start: 03-13-2022 Hemoglobin A1c measurement Diabetes: Hemoglobin A1C [facility] Start: 01-21-2022 Ercp remove calculi/debris biliary/pancreas duct ERCP REMOVE DUCT CALCULI [facility] Work Phone: Start: 01-21-2022 Ercp w/sphincterotomy/papill otomy ENDO CHOLANGIOPANCREATOGRAPH [facility] Work Phone: Start: 12-16-2021 End: 12-16-2021 Patient encounter procedure Appointment [facility] Work Phone: Start: 11-28-2021 End: 11-28-2021 Patient encounter procedure Appointment [facility] Work Phone: Start: 10-08-2021 Pneumococcal Vaccine: 65+ (2 - PCV) Pneumococcal Vaccine: 65+ (2 - PCV) [facility] Start: 10-08-2021 Pneumococcal Vaccine: 65+ (2 of 2 - PCV) Pneumococcal Vaccine: 65+ (2 of 2 - PCV) [facility] Start: 10-08-2021 PNEUMOCOCCAL: 65+ (2 - PCV) PNEUMOCOCCAL: 65+ (2 - PCV) [facility] Start: 09-13-2021 Hemoglobin A1c measurement HbA1C [facility] Start: 09-13-2021 Hemoglobin A1c/Hemoglobin.total in Blood HBA1C [facility] Start: 12-19-2020 Creatinine monitoring Creatinine monitoring [facility] [place] Start: 12-19-2020 Potassium monitoring Potassium monitoring [facility] [place] Start: 12-11-2020 A1C test (Diabetic or Prediabetic) A1C test (Diabetic or Prediabetic) [facility] [place] Start: 12-11-2020 Creatinine monitoring Creatinine monitoring [facility] [place] Start: 12-11-2020 Potassium monitoring Potassium monitoring [facility] [place] Start: 05-07-2020 Influenza vaccination INFLUENZA (#1) [facility] Start: 12-27-2019 End: 12-19-2020 Basic metabolic 2000 panel Basic Metabolic Panel Lab Routine S/P CABG x 3 Expected: 12/27/2019, Expires: 12/19/2020 [facility] Comment on above: Expected: 12/27/2019, Expires: 1 Start: 12-27-2019 End: 12-19-2020 CBC CBC Lab Routine S/P CABG x 3 Expected: 12/27/2019, Expires: 12/19/2020 [facility] Comment on above: Expected: 12/27/2019, Expires: 1 Start: 12-27-2019 End: 12-27-2019 Virtual Visit 12/27/2019 Virtual Visit Cardiothoracic Surgery Larisa Watts, EDUCATIONAL AUDIOLOGIST - [facility] [address] [place] [address] [phone] [facility] Start: 12-15-2019 Annual Wellness Visit (AWV) Annual Wellness Visit (AWV) [facility] [place] Start: 12-15-2019 [facility] MD [address] [place], [place] [id number] [facility] Start: 12-13-2019 [facility] Colton Marroquin MD [address] [place], [place] [id number] [facility] Pre-Admit Testing Start: 2019 ADVANCE DIRECTIVE DISCUSSION ADVANCE DIRECTIVE DISCUSSION [facility] Start: 2019 Pneumococcal 65+ years Vaccine (1 of 1 - PPSV23) Pneumococcal 65+ years Vaccine (1 of 1 - PPSV23) [place] Start: 2019 PNEUMOVAX AGE 65 AND OVER WITH 5YR LOOKBACK (#1) PNEUMOVAX AGE 65 AND OVER WITH 5YR LOOKBACK (#1) [facility] Start: 06-10-2018 Shingles Vaccine (2 of 2) Shingles Vaccine (2 of 2) [place] Start: 2014 Hepatitis B Vaccine (1 of 3 - Risk 3-dose series) Hepatitis B Vaccine (1 of 3 - Risk 3-dose series) [facility] Start: 2014 RSV Vaccine (1 - 1-dose 60+ series) RSV Vaccine (1 - 1-dose 60+ series) [facility] Start: 2009 PROSTATE CANCER SCREENING DISCUSSION PROSTATE CANCER SCREENING DISCUSSION [facility] Start: 2004 Colon cancer screen colonoscopy Colon cancer screen colonoscopy [place] Start: 2004 Screening for malignant neoplasm of colon [facility] Start: 2004 SHINGRIX VACCINE (1 of 2) SHINGRIX VACCINE (1 of 2) [facility] Start: 1999 COLOGUARD (FIT-DNA) COLOGUARD (FIT-DNA) [facility] Start: 1999 Colonoscopy COLONOSCOPY [facility] Start: 1999 COLORECTAL CANCER SCREENING COLORECTAL CANCER SCREENING [facility] Start: [address] COLONOGRAPHY [facility] Start: 1999 DIABETES SCREEN DIABETES SCREEN [facility] Start: 1999 FECAL OCCULT BLOOD FECAL OCCULT BLOOD [facility] Start: 1999 Screening for malignant neoplasm of colon [facility] Start: 1999 SIGMOIDOSCOPY SIGMOIDOSCOPY [facility] Start: 1989 LIPID SCREEN LIPID SCREEN [facility] Start: 1973 Urine microalbumin profile DTAP,TDAP,TD (1 - Tdap) [facility] Start: 1972 ANNUAL PCP TEAM CHRONIC DISEASE VISIT ANNUAL PCP TEAM CHRONIC DISEASE VISIT [facility] Start: 1972 Anxiety Screening Anxiety Screening [facility] Start: 1972 BP Controlled (<130/80) BP Controlled (<130/80) [facility] Start: 1972 Depression Screening Depression Screening [facility] Start: 1972 Diabetes: Urine Albumin-Creatinine Ratio for Kidney Health Diabetes: Urine Albumin-Creatinine Ratio for Kidney Health [facility] Start: 1972 Diabetic microalbuminuria test Diabetic microalbuminuria test [place] Start: 1972 Hepatitis B surface antibody level LDL CHOLESTEROL [facility] Start: 1972 HEPATITIS C SCREENING HEPATITIS C SCREENING [facility] Start: 1972 Hepatitis C screening Hepatitis C Screening [facility] Start: 1969 HIV screen HIV screen [facility] Start: 1966 Adult depression screening assessment DEPRESSION SCREENING [facility] Start: 1964 [object Object] Diabetic foot exam [facility] Start: 1964 Diabetic foot examination [facility] Start: 1964 Diabetic retinal exam Diabetic retinal exam [facility] BARB Start: 1964 Glaucoma screening [facility] Start: 1964 Hepatitis B screening URINE ALBUMIN:CREATININE RATIO [facility] Start: 1964 Hepatitis C antibody, confirmatory test DILATED RETINAL EXAM [facility] Start: 1964 Lipid screen Lipid screen [facility] BARB Start: 1964 Preventive dental service Diabetes: Dental Exam [facility] Start: 1954 AAA screen AAA screen [facility] BARB Start: 1954 ABDOMINAL AORTIC ANEURYSM SCREENING ABDOMINAL AORTIC ANEURYSM SCREENING [facility] Start: 1954 Abdominal aortic aneurysm screening Abdominal Aortic Aneurysm Screening [facility] Start: 1954 Hepatitis C screen Hepatitis C screen [facility] BARB Start: 1954 Lipid panel Lipid Panel [facility] Start: 1954 Medicare Annual Wellness (AWV) Medicare Annual Wellness (AWV) [facility] Start: 1955 Screening for malignant neoplasm of colon [facility] Acapella Acapella Respira tory Care Routine Every 2hr while awake until discontinued starting 12/15/2019 [facility] [place] Comment on above: Every 2hr while awake until discontinued starting 12/15/2019 AUTOPAP Overnight AutoPA P Respiratory Care Routine QHS until discontinued starting 12/15/2019 [facility] [place] Comment on above: QHS until discontinued starting 12/15/19 20 Basic metabolic 2000 panel Basic Metabolic Panel Lab Routine Daily until discontinued starting 12/15/2019, 5 completed [facility] [place] Comment on above: Daily until discontinued starting 2019, 5 completed Calcium, Ionized Calcium, Ionize d Lab Routine As Needed until discontinued starting 12/15/2019 [facility] [place] Comment on above: As Needed until discontinued starting Calprotectin [Mass/mass] in Stool CALPROTECTIN,FECAL Lab Routine Diarrhea, unspecified type Ordered: 10/13/2023 [facility] Work Phone: Comment on above: Ordered: 10/13/2023 CBC CBC Lab Routine Daily until discontinued starting 12/15/2019, 5 completed [facility] BARB [place] Comment on above: Daily until discontinued starting 2019, 5 completed End: 05-05-2024 Ct abdomen & pelvis w/contrast material CT ABD/PEL W IVCON Radiology Routine Nausea 1 Occurrences starting 04/06/2023 until 05/05/2024 [facility] Work Phone: Comment on above: 1 Occurrences starting 04/06/2023 until 05/05/2024 End: 04-06-2024 EGD DIAGNOSTIC EGD DIAGNOSTIC Endoscopy Routine Gastroparesis Heartburn 1 Occurrences starting 04/06/2023 until 04/06/2024 [facility] Work Phone: Comment on above: 1 Occurrences starting 04/06/2023 until 04/06/2024 End: 07-27-2024 EMG(NEURO/NI) EMG(NEURO/NI) EMG Routine Weakness of both lower extremities 1 Occurrences starting 07/27/2023 until 07/27/2024 [facility] Work Phone: Comment on above: 1 Occurrences starting 07/27/2023 until 07/27/2024 End: 05-05-2024 Gastric emptying imaging study NM GASTRIC EMPTYING SOLID Radiology Routine Nausea 1 Occurrences starting 04/06/2023 until 05/05/2024 [facility] Work Phone: Comment on above: 1 Occurrences starting 04/06/2023 until 05/05/2024 Hemoglobin and Hematocrit, Blood, Post Transfusion Hemoglobin and Hematocrit, Blood, Post Transfusion Lab Routine Post Transfusion Post Transfusion Post Transfustion for 1 Occurrences starting 12/19/2019 [facility] above: Post Transfusion Post Transfusion Post T ransfustion for 1 Occurrences starting 12/19/2019 Incentive spirometry Incentive s pirometry Respiratory Care Routine Every 2hr while awake until discontinued starting 12/15/2019 [facility] Comment on above: Every 2hr while awake until discontinued starting 12/15/2019 Initiate Oxygen Ther apy Protocol Initiate Oxygen Therapy Protocol Respiratory Care Routine Daily until discontinued starting 12/15/2019 [employer] Comment on above: Daily until discontinued starting 2019 End: 11-24-2024 MR Brain WO contrast MRI BRAIN WO IVCON Radiology Routine Transient cerebral ischemia, unspecified type 1 Occurrences starting 10/26/2023 until 11/24/2024 [facility] Work Phone: Comment on above: 1 Occurrences starting 10/26/2023 until 11/24/2024 Patient Education ED Post Op Wou nd Check, Bleeding [facility] Work Phone: Patient referral [facility] Work Phone: POCT glucose [facility] Comment on above: 4X Daily (AC & HS) until discontinued st arting 12/17/2019 As Needed until disc ontinued starting 12/17/2019 End: 12-12-2019 PREPARE RBC (CROSSMATCH), 2 Units PREPARE RBC (CROSSMATCH), 2 Units Blood Bank Routine CAD, multiple vessel Preoperative examination 1 Occurrences starting 12/12/2019 until 12/12/2019 [employer] Comment on above: 1 Occurrences starting 12/12/2019 until 12/12/2019 PREPARE RBC (CROSSMATCH), 2 Units [facility] [place] SURGICAL PATHOLOGY SURGICAL PATH OLOGY Lab Routine Preop examination Primary hypertension Diabetes mellitus without complication (HCC) CABRERA (obstructive sleep apnea) Gastroparesis Heartburn Release Upon Ordering for 1 Occurrences starting 05/13/2023 [facility] Work Phone: Comment on above: Release Upon Ordering for 1 Occurrences starting 05/13/2023 XR CHEST PORTABLE XR CHEST DONN BLE Imaging Routine Daily until discontinued starting 12/16/2019, 5 completed [employer] Comment on above: Daily until discontinued starting 2019, 5 completed [facility] Immunizations Immunization Date Immunization Notes Care Provider Jayson travis 06-22-2023 influenza (aIIV4) vaccine, age 65+ yr, quadrivalent, PF (FLUAD QUAD) María Orosco COMPUTER FORENSIC EXAMINER Work Phone: [facility] 06-22-2023 respiratory syncytia l virus (RSV) vaccine, bivalent (ABRYSVO) María Orosco COMPUTER FORENSIC EXAMINER Work Phone: [facility] 06-22-2023 influenza virus vacc ine, unspecified formulation Naima Lee MD Work Phone: [facility] 06-05-2022 influenza, injectabl e, quadrivalent, preservative free Germaine Bray MD Work Phone: [facility] 06-05-2022 influenza virus vacc ine, unspecified formulation Ct (I-Stat) Work Phone: [facility] 07-24-2021 Covid (Moderna) Dr. Iván Rocha [facility] Work Phone: [facility] Work Phone: 06-12-2021 influenza (HD-IIV4) vaccine, age 65+ yr, high dose, quadrivalent, PF (FLUZONE HIGH-DOSE) Germaine Bray MD Work Phone: [facility] 06-12-2021 influenza, seasonal, injectable Dr. Iván Case Work Phone: [facility] Work Phone: 12-04-2020 Covid (Moderna) Dr. Iván tesfaye Work Phone: [facility] Work Phone: 11-07-2020 Covid (Moderna) Dr. Iván tesfaye Work Phone: [facility] Work Phone: 10-08-2020 pneumococcal polysaccharide vaccine, 23 valent Germaine Bray MD Work Phone: [facility] 05-28-2020 influenza, injectabl e, quadrivalent, preservative free Germaine Bray MD Work Phone: [facility] 02-18-2020 zoster vaccine recombinant Germaine Bray MD Work Phone: [facility] 09-29-2019 tetanus toxoid, redu cony diphtheria toxoid, and acellular pertussis vaccine, adsorbed Germaine Bray MD Work Phone: [facility] 07-28-2019 influenza, injectabl e, quadrivalent, preservative free Germaine Bray MD Work Phone: [facility] 06-14-2018 influenza, injectabl e, quadrivalent, contains preservative Germaine Bray MD Work Phone: [facility] 04-15-2018 zoster vaccine recombinant Germaine Bray MD Work Phone: [facility] Payers Date Payer Category Payer Self-pay [id number] 2023 [facility] [id number] 2020 Private Health Insurance CHRISTINA KNIGHT MEDICARE SUPPLEMENT [id number] 2020-Present Indemnity [id number] 2019 Private Health Insurance [id number] 2019 Private Health Insurance [id number] 2019 Medicare xxxxxxxxxxx [id number] 2019 Medicare MEDICARE MEDICAR E A AND B [id number] 2019-Present [place] [id number] 2019 Medicare [id number] .[id number] 2019 Unknown [id number] .7.3.883302.315 2019 Medicare [id number] Unknown [id number] Unknown [id number] 2.16.840.1.897119.3.579.2 .462 Unknown [id number] 2.16840.1.021610.3.579.2 .462 Unknown [id number] 2.16840.1.911511.3.579.2 .462 Unknown [id number] 2.840.1.957643.3.579.2 .462 Unknown [id number] 2.16840.1.129629.3.579.2 .462 Unknown [id number] 2.16840.1.173662.3.579.2 .462 Unknown [id number] 2.16840.1.880905.3.579.2 .462 Unknown [id number] 2.16840.1.960994.3.579.2 .462 Unknown [id number] 2.840.1.516747.3.579.2 .462 Unknown [id number] 2.16840.1.431730.3.579.2 .462 Unknown [id number] 2.16840.1.441227.3.579.2 .462 Unknown [id number] 2.16.840.1.550292.3.579.2 .462 Unknown [id number] 2.16840.1.759464.3.579.2 .462 Unknown [id number] 2.16.840.1.046270.3.579.2 .462 Unknown [id number] 2.16.840.1.458836.3.579.2 .462 Unknown [id number] 2.16.840.1.325994.3.579.2 .462 Unknown [id number] 2.16.840.1.210957.3.579.2 .462 Unknown [id number] 2.16.840.1.363137.3.579.2 .462 Unknown [id number] 2.16.840.1.543250.3.579.2 .462 Unknown [id number] 2.16.840.1.452008.3.579.2 .462 Unknown [id number] 2.16.840.1.910465.3.579.2 .462 Unknown [id number] 2.16.840.1.447337.3.579.2 .462 Unknown [id number] 2.16.840.1.548817.3.579.2 .462 Unknown [id number] 2.16.840.1.901004.3.579.2 .462 Unknown [id number] 2.16.840.1.865887.3.579.2 .462 Unknown [id number] 2.16.840.1.484110.3.579.2 .462 Unknown [id number] 2.16.840.1.154694.3.579.2 .462 Unknown [id number] 2.16840.1.487672.3.579.2 .462 Unknown [id number] 2.16840.1.889773.3.579.2 .462 Unknown [id number] 2.16840.1.628750.3.579.2 .462 Social History Date Type Detail Facility Start: 12-12-2019 End: 04-06-2023 Tobacco smoking status NHIS Former smoker [facility] Start: 12-12-2019 End: 02-20-2025 Alcohol intake Current drinker of alcohol (finding) [place] Start: 12-12-2019 [facility] Start: 1955 Sex Assigned At Not on file M [facility] History of tobacco use [facility] Start: 12-13-2019 End: 02-20-2025 Cigarettes smoked current (pack per day) - Reported [facility] Start: 12-13-2019 Tobacco Comment 1 ppd times 5 yrs, quit 1975 [facility] Exposure to SARS-CoV-2 (event) Unable to assess [place] Exposure to SARS-CoV-2 (event) Not sure [facility] Start: 09-01-2021 End: 07-09-2022 Assertion Unknown if ever smoked [facility] Work Phone: Start: 08-23-2020 Non-smoker [facility] Work Phone: Start: 1955 Sex Assigned At Male [facility] History of tobacco use Current smoker [facility] Start: 04-06-2023 Tobacco use and exposure Smokeless tobacco non-user [facility] Start: 04-06-2023 End: 02-20-2025 Tobacco use panel [facility] National Score (1-100), lower number is lower risk Not on file [facility] Start: 04-06-2023 Tobacco Comment during college [facility] Start: 01-21-2021 Gender identity Identifies as male gender (finding) [facility] Start: 01-21-2021 Sexual orientation Heterosexual (fin susan) [facility] How often to you hav e a drink containing alcohol? 2-4 times a month [facility] How many standard drinks containing alcohol do you have on a typical day? 1 or 2 [facility] How often do you hav e 6 or more drinks on 1 occasion? Never [facility] Start: 04-06-2022 Sex Male (finding) Yesika wilson NEGATED: Highlighted rowStart: 11-28-2021 End: 11-28-2021 Alcohol use Alcohol use [facility] Work Phone: NEGATED: Highlighted rowStart: 11-28-2021 End: 11-28-2021 Details of drug misuse behavior Details of drug misuse behavior [facility] Work Phone: NEGATED: Highlighted rowStart: 11-28-2021 End: 11-28-2021 Assertion Former smoker [facility] Work Phone: Medical Equipment Procedure Code Equipment Code Equipment Origin al Text Equipment Identifier Dates ORIF, fracture, humerus 3.5 Gilberto Screw FDA Start: 05-22-2021 ORIF, fracture, humerus ([id number]) Tendon/l igament bone anchor, bioabsorbable ()[id number] FDA Start: 05-22-2021 ORIF, fracture, humerus 3.5 Gilberto Screw FDA Start: 05-22-2021 ORIF, fracture, humerus BONE,CRU SHED CANCELLOUS 15CC FDA Start: 05-22-2021 ORIF, fracture, humerus ([id number]) Tendon/l igament bone anchor, bioabsorbable ()[id number] FDA Start: 05-22-2021 ORIF, fracture, humerus ([id number]) Tendon/l igament bone anchor, bioabsorbable ()[id number] FDA Start: 05-22-2021 ORIF, fracture, humerus ([id number]) Tendon/l igament bone anchor, bioabsorbable ()[id number] FDA Start: 05-22-2021 ORIF, fracture, humerus ([id number]) Tendon/l igament bone anchor, bioabsorbable ()[id number] 14 FDA Start: 05-22-2021 ORIF, fracture, humerus ([id number]) Tendon/l igament bone anchor, bioabsorbable ()[id number] FDA Start: 05-22-2021 ORIF, fracture, humerus 3.5 Gilberto Screw FDA Start: 05-22-2021 ORIF, fracture, humerus 3.5 Gilberto Screw FDA Start: 05-22-2021 ORIF, fracture, humerus BONE,CRU SHED CANCELLOUS 15CC FDA Start: 05-22-2021 ORIF, fracture, humerus 3.5 Gilberto Screw FDA Start: 05-22-2021 ORIF, fracture, humerus 3.5 Gilberto Screw FDA Start: 05-22-2021 ORIF, fracture, humerus BONE,CRU SHED CANCELLOUS 15CC FDA Start: 05-22-2021 ORIF, fracture, humerus 3.5 Gilberto Screw FDA Start: 05-22-2021 ORIF, fracture, humerus 3.5 Gilberto Screw FDA Start: 05-22-2021 ORIF, fracture, humerus BONE,CRU SHED CANCELLOUS 15CC FDA Start: 05-22-2021 ORIF, fracture, humerus 3.5 Gilberto Screw FDA Start: 05-22-2021 ORIF, fracture, humerus 3.5 Gilberto Screw FDA Start: 05-22-2021 ORIF, fracture, humerus BONE,CRU SHED CANCELLOUS 15CC FDA Start: 05-22-2021 ORIF, fracture, humerus 3.5 Gilberto Screw FDA Start: 05-22-2021 ORIF, fracture, humerus 3.5 Gilberto Screw FDA Start: 05-22-2021 ORIF, fracture, humerus BONE,CRU SHED CANCELLOUS 15CC FDA Start: 05-22-2021 ORIF, fracture, humerus 3.5 Gilberto Screw FDA Start: 05-22-2021 ORIF, fracture, humerus 3.5 Gilberto Screw FDA Start: 05-22-2021 ORIF, fracture, humerus BONE,CRU SHED CANCELLOUS 15CC FDA Start: 05-22-2021 ERCP (endoscopic retrograde cholangiopancreatography) STENT, RX 10FR x 12CM FDA Start: 09-02-2021 ERCP (endoscopic retrograde cholangiopancreatography) STENT, RX 7FR x 12CM FDA S tart: 09-02-2021 ERCP (endoscopic retrograde cholangiopancreatography) WALLFLEX BILIARY FULLY COVERED FDA Start: 09-02-2021 ERCP (endoscopic retrograde cholangiopancreatography) ([id number]) Polymer-metal biliary stent, non-bioabsorbable ()[id number] FDA Start: 09-02-2021 ERCP (endoscopic retrograde cholangiopancreatography) STENT, RX 10FR x 12CM FDA Start: 09-02-2021 ERCP (endoscopic retrograde cholangiopancreatography) STENT, RX 7FR x 12CM FDA S tart: 09-02-2021 ERCP (endoscopic retrograde cholangiopancreatography) WALLFLEX BILIARY FULLY COVERED FDA Start: 09-02-2021 ERCP (endoscopic retrograde cholangiopancreatography) STENT, RX 10FR x 12CM FDA Start: 09-02-2021 ERCP (endoscopic retrograde cholangiopancreatography) STENT, RX 7FR x 12CM FDA S tart: 09-02-2021 ERCP (endoscopic retrograde cholangiopancreatography) WALLFLEX BILIARY FULLY COVERED FDA Start: 09-02-2021 ERCP (endoscopic retrograde cholangiopancreatography) STENT, RX 10FR x 12CM FDA Start: 09-02-2021 ERCP (endoscopic retrograde cholangiopancreatography) STENT, RX 7FR x 12CM FDA S tart: 09-02-2021 ERCP (endoscopic retrograde cholangiopancreatography) WALLFLEX BILIARY FULLY COVERED FDA Start: 09-02-2021 ERCP (endoscopic retrograde cholangiopancreatography) STENT, RX 10FR x 12CM FDA Start: 09-02-2021 ERCP (endoscopic retrograde cholangiopancreatography) STENT, RX 7FR x 12CM FDA S tart: 09-02-2021 ERCP (endoscopic retrograde cholangiopancreatography) WALLFLEX BILIARY FULLY COVERED FDA Start: 09-02-2021 ERCP (endoscopic retrograde cholangiopancreatography) STENT, RX 10FR x 12CM FDA Start: 09-02-2021 ERCP (endoscopic retrograde cholangiopancreatography) STENT, RX 7FR x 12CM FDA S tart: 09-02-2021 ERCP (endoscopic retrograde cholangiopancreatography) WALLFLEX BILIARY FULLY COVERED FDA Start: 09-02-2021 ERCP (endoscopic retrograde cholangiopancreatography) STENT, RX 10FR x 12CM FDA Start: 09-02-2021 ERCP (endoscopic retrograde cholangiopancreatography) STENT, RX 7FR x 12CM FDA S tart: 09-02-2021 ERCP (endoscopic retrograde cholangiopancreatography) WALLFLEX BILIARY FULLY COVERED FDA Start: 09-02-2021 Cholecystocolostomy Plant polysa ccharide haemostatic agent, bioabsorbable [id number] FDA Start: 09-02-2021 Cholecystocolostomy Ligation cli p, synthetic polymer, non-bioabsorbable [id number] FDA Start: 09-02-2021 Functional Status Date Assessment Result Facility 09-04-2021 Functional status Ambulates [facility] Work Phone: [facility] Mental Status Date Assessment Result Facility 01-21-2022 Cognitive function Voice/Name [facility] Work Phone: 09-04-2021 Cognitive function Voice/Name [facility] Work Phone: Clinical Notes 12-15-2019 to 02-21-2025 Joshua Celis - 02/21/2025 10:46 AM Annabella Mayorga RN - 02/21/2025 10:29 AM Annabella Mayorga RN - 02/21/2025 10:29 AM ED[facility]are Coordination - Mary Rico RN - 02/21/2025 10:12 AM EDT Note Date & Type Note Facility 02-21-2025 Note PHYSICAL THERAPY [facility] Initial Evaluation Name/MRN: Douglas Callaway ([id number]) Evaluation Date: 02/21/2025 Date of : 1955 Admission Date: 02/20/2025 2:48 PM Age: 69 y.o. [facility] Discharge Recommendation: Outpatient PT Assessment IMPRESSION: 69 y.o. pt admitted to [facility] for intracranial hemorrhage post fall. They were modified independent for bed mobility, modified independent for transfers, and SBA for ambulation. When first standing patient got a wobbly but after standing for 30 seconds patients wobbliness went away. Patient was motivate for therapy. Would recommend outpatient PT at discharge in order to address patients balance issues. Admitting Diagnosis: Intracranial hemorrhage post fall Prognosis: good Performance Deficits /Impairments: Decreased Safety Awareness Decision Making: Medium Complexity Subjective Patient was in bed when PT arrived. Patient was cleared by RN for therapy. Patient reports that he would go through good periods and bad periods of falls. He stated that normally 2 weeks are super good and 2 weeks are really bad and during those bad weeks he is super careful but still sometimes falls. Pain: Pt denies any current pain. Past Medical History: Medical History[1] Past Surgical History: Surgical History[2] Admission Diagnosis: Patient Active Problem List Diagnosis Date Noted Fall 02/20/2025 Intraventricular hemorrhage (HCC) 02/20/2025 Intracranial hemorrhage (HCC) 02/20/2025 S/P CABG x 3 12/16/2019 Hyperglycemia 12/15/2019 CAD, multiple vessel 12/15/2019 Medical Precautions: No active isolations Proper PPE donned/doffed in accordance with facility standards. Fall Risk: [place] Fall Risk Score: 65 (High Risk) Precautions/Restrictions: Lines/Drains/Airways: IV Fall Precautions Family/Caregiver Present: none Overall Cognitive Status: Exceptions - Arousal/alertness: appropriate responses to stimuli - Following commands: follows all commands without difficulty Overall Orientation Status: Oriented x4 Vision: No acute changes Hearing: Grossly intact Social/Functional History Patient lives in a split level home with and 36 yo son. Patient has 14 total steps in the house 9 to go upstairs and 5 to go down stairs all with railings. Patient has no steps to enter in home. 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 Prior Level of Function Prior Level of ADL Function: Independent Prior Level of Mobility: Independent; Device: Straight Cane Prior Level of Transfers: Independent Objective Lower Extremity Assessment AROM: WFL PROM: Not assessed this session Strength: Exceptions: Grossly 4+/5 Sensation: Not assessed this session Balance: Balance During Session: Posture: good Sitting - Static: Independent Sitting - Dynamic: Independent Standing - Static: SBA Standing - Dynamic: SBA Bed Mobility: Supine to sit: Modified Independent Sit to supine: Modified Independent HOB Elevated Use of bed rail(s) Transfers Sit to stand: Modified Independent Stand to sit: Modified Independent Used cane in order to help himself out of bed Ambulation Ambulation 1 Assistive device(s) used: Straight Cane Assist level: SBA Distance (ft): 250 Quality of gait: Patient sometimes drags his cane while ambulating due to patient walking too fast. Patient needed verbal cues in order to slow down. Patient reported that he used to go to PT and the last PT told him to walk as fast as you can. Outcome Measures AM-PAC How much HELP from another person do you currently need Turning from your back to your side while in a flat bed without using bedrails?: None Moving from lying on your back to sitting on the side of a flat bed without using bedrails?: None Moving to and from a bed to a chair (including a wheelchair)?: None Standing up from a chair using your arms (wheelchair or bedside chair)?: A Little Walking in a hospital room?: A Little Stair climbing assessed?: No AM-PAC Inpatient Mobility Raw Score (No Stairs) : 18 JH-HLM -HLM Score: Walked 250 ft or more (i.e. several laps on unit) Plan No skilled acute PT indicated at this time. Please reconsult should changes occur. Safety/Education Safety Safety Devices in place: call light within reach, left in bed, gait belt, nurse notified, and no alarms engaged upon entry Restraints: No Education Education Given To: patient Education Provided: PT Role, PT Goals, Gait Training, Plan of Care, Discharge Recommendations, and Benefits of Increasing Activity Education Method: Verbal and Demonstration Barriers to Learning: None Education Outcome: Verbalized Understanding Goals Patient Stated Goal: To go home Therapy Time Individual Co-Treatment Co-Evaluation Time In 0850 Time Out 0907 Minutes 17 SANTIAGO Ramsey Patient's Physical Therapy Plan of Care supervision is transferred to a [facility] Physical Therapist. Bryan (more content not included)... [facility] 02-21-2025 History of Present illness Narrative Images from the original note were not included. PHYSICAL THERAPY [facility] Initial Evaluation Name/MRN: Douglas Callaway ([id number]) Evaluation Date: 02/21/2025 Date of : 1955 Admission Date: 02/20/2025 2:48 PM Age: 69 y.o. Room/Bed: T2-225/T2-225 A Discharge Recommendation: Outpatient PT Assessment IMPRESSION: 69 y.o. pt admitted to [facility] for intracranial hemorrhage post fall. They were modified independent for bed mobility, modified independent for transfers, and SBA for ambulation. When first standing patient got a wobbly but after standing for 30 seconds patients wobbliness went away. Patient was motivate for therapy. Would recommend outpatient PT at discharge in order to address patients balance issues. Admitting Diagnosis: Intracranial hemorrhage post fall Prognosis: good Performance Deficits /Impairments: Decreased Safety Awareness Decision Making: Medium Complexity Subjective Patient was in bed when PT arrived. Patient was cleared by RN for therapy. Patient reports that he would go through good periods and bad periods of falls. He stated that normally 2 weeks are super good and 2 weeks are really bad and during those bad weeks he is super careful but still sometimes falls. Pain: Pt denies any current pain. Past Medical History: Medical History[1] Past Surgical History: Surgical History[2] Admission Diagnosis: Patient Active Problem List Diagnosis Date Noted Fall 02/20/2025 Intraventricular hemorrhage (HCC) 02/20/2025 Intracranial hemorrhage (HCC) 02/20/2025 S/P CABG x 3 12/16/2019 Hyperglycemia 12/15/2019 CAD, multiple vessel 12/15/2019 Medical Precautions: No active isolations Proper PPE donned/doffed in accordance with facility standards. Fall Risk: [place] Fall Risk Score: 65 (High Risk) Precautions/Restrictions: Lines/Drains/Airways: IV Fall Precautions Family/Caregiver Present: none Overall Cognitive Status: Exceptions - Arousal/alertness: appropriate responses to stimuli - Following commands: follows all commands without difficulty Overall Orientation Status: Oriented x4 Vision: No acute changes Hearing: Grossly intact Social/Functional History Patient lives in a split level home with and 36 yo son. Patient has 14 total steps in the house 9 to go upstairs and 5 to go down stairs all with railings. Patient has no steps to enter in home. 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 Prior Level of Function Prior Level of ADL Function: Independent Prior Level of Mobility: Independent; Device: Straight Cane Prior Level of Transfers: Independent Objective Lower Extremity Assessment AROM: WFL PROM: Not assessed this session Strength: Exceptions: Grossly 4+/5 Sensation: Not assessed this session Balance: Balance During Session: Posture: good Sitting - Static: Independent Sitting - Dynamic: Independent Standing - Static: SBA Standing - Dynamic: SBA Bed Mobility: Supine to sit: Modified Independent Sit to supine: Modified Independent HOB Elevated Use of bed rail(s) Transfers Sit to stand: Modified Independent Stand to sit: Modified Independent Used cane in order to help himself out of bed Ambulation Ambulation 1 Assistive device(s) used: Straight Cane Assist level: SBA Distance (ft): 250 Quality of gait: Patient sometimes drags his cane while ambulating due to patient walking too fast. Patient needed verbal cues in order to slow down. Patient reported that he used to go to PT and the last PT told him to walk as fast as you can. Outcome Measures AM-PAC How much HELP from another person do you currently need Turning from your back to your side while in a flat bed without using bedrails?: None Moving from lying on your back to sitting on the side of a flat bed without using bedrails?: None Moving to and from a bed to a chair (including a wheelchair)?: None Standing up from a chair using your arms (wheelchair or bedside chair)?: A Little Walking in a hospital room?: A Little Stair climbing assessed?: No AM-PAC Inpatient Mobility Raw Score (No Stairs) : 18 JH-HLM JH-HLM Score: Walked 250 ft or more (i.e. several laps on unit) Plan No skilled acute PT indicated at this time. Please reconsult should changes occur. Safety/Education Safety Safety Devices in place: call light within reach, left in bed, gait belt, nurse notified, and no alarms engaged upon entry Restraints: No Education Education Given To: patient Education Provided: PT Role, PT Goals, Gait Training, Plan of Care, Discharge Recommendations, and Benefits of Increasing Activity Education Method: Verbal and Demonstration Barriers to Learning: None Education Outcome: Verbalized Understanding Goals Patient Stated Goal: To go home Therapy Time Individual Co-Treatment Co-Evaluation Time In 0850 Time Out 0907 Minutes 17 SANTIAGO Ramsey Patient's Physical Therapy Plan of Care supervision is transferred to a [facility] Therapy Services Physical Therapist. Goals and/or treatment plan was established in collaboration with patient/family/other representatives. [1] Past Medical History: Diagnosis Date Bipolar 2 disorder (CMS/HCC) (HCC) CAD (coronary artery disease) Cancer (CMS/HCC) (HCC) skin cancer forehead and left hand Cerebral artery occlusion with cerebral infarction (HCC) 2003 Depression Diabetes mellitus (HCC) Elevated LFTs GERD (gastroesophageal reflux disease) Hepatitis A Hyperlipidemia Hypertension Insomnia CABRERA (obstructive sleep apnea) TIA (transient ischemic attack) [2] Past Surgical History: Procedure Laterality Date CATARACT EXTRACTION COLONOSCOPY TONSILLECTOMY (HISTORICAL) WISDOM TOOTH EXTRACTION Cosigned by Wendy Stevens, PT at 02/21/2025 12:44 PM EDT documented in this encounter [facility] 02-21-2025 Note Discharge education completed with patient, no further questions at this time. PIV discontinued. Pt dressed in clothing and sent via wheelchair with to private vehicle. [facility] 02-21-2025 Nurse Note Discharge education completed with patient, no further questions at this time. PIV discontinued. Pt dressed in clothing and sent via wheelchair with to private vehicle. [facility] 02-21-2025 Nurse Note Discharge education completed with patient, no further questions at this time. PIV discontinued. Pt dressed in clothing and sent via wheelchair with to private vehicle. documented in this encounter [facility] 02-21-2025 Note Formatting of this n ote might be different from the original. Care Managment Initial Assessment Date: 02/21/2025 Patient Name: Douglas Callaway : 1955 Patient Information Source of Information: Patient Cognition/Language: WFL - Within Functional Limits Permission given to speak with patient screening representative/caregiver as indicated: Yes Confirmation of Payer with patient/family: Yes Payer Name: Medicare : No Confirmation of Primary Care Physician: Confirmed PCP Name: Iván Case MD Seen in last 2 years?: Yes Primary Caregiver: Self If assistance needed, confirmed caregiver ready, willing and able to care for patient at discharge: Yes Confirmed with: Douglas Living Arrangements Current Residence: House Number of Floors 2 Number of Entry Steps: 2 Bed/Bath Levels: Both second floor Facility: Facility Name: Plan to Return: Lives with: Spouse/significant other Support Systems: Spouse/significant other, Children Activities of Daily Living Ambulation: Assistance (cane) Bathing/Dressing: Independent Elimination/Continence/Toileting: Independent Feeding: Independent Who Assists with Activities of Daily Living: Instrumental Activities of Daily Living Prescription Coverage: Yes Pharmacy Used: [facility] Medication Management: Independent Transportation/Shopping: Independent Transportation Mode: Car (pt still drives) Needs Assistance with Transportation at Discharge: No Meal Preparation: Independent Laundry/Cleaning: Independent Finances/Bill Paying: Independent Communication: Independent Types of Care Services/Equipment Utilized Care Services: Dialysis Type: Durable Medical Equipment: Patient's Goal/Discharge Plan Patient expects to be discharged to: home Discharge Planning Actions: No needs identified Patient's Choice Rights and [employer] and Collaborative Relationships Disclosed as Indicated for Post-Acute Care: Interdisciplinary Team Engagement: PT/OT, Geriatric Assessment Social Work Referral for: Additional Information: Pt admitted s/p fall on ASA, small right posterior temporal IPH vs SAH. Introduced myself and role. Pt lives with , whom can provide assistance and transportation when pt is discharged. Will follow. [facility] 02-21-2025 Note Formatting of this n ote might be different from the original. Care Managment Initial Assessment Date: 02/21/2025 Patient Name: Douglas Callaway : 1955 Patient Information Source of Information: Patient Cognition/Language: WFL - Within Functional Limits Permission given to speak with patient screening representative/caregiver as indicated: Yes Confirmation of Payer with patient/family: Yes Payer Name: Medicare : No Confirmation of Primary Care Physician: Confirmed PCP Name: Iván Case MD Seen in last 2 years?: Yes Primary Caregiver: Self If assistance needed, confirmed caregiver ready, willing and able to care for patient at discharge: Yes Confirmed with: Douglas Living Arrangements Current Residence: House Number of Floors 2 Number of Entry Steps: 2 Bed/Bath Levels: Both second floor Facility: Facility Name: Plan to Return: Lives with: Spouse/significant other Support Systems: Spouse/significant other, Children Activities of Daily Living Ambulation: Assistance (cane) Bathing/Dressing: Independent Elimination/Continence/Toileting: Independent Feeding: Independent Who Assists with Activities of Daily Living: Instrumental Activities of Daily Living Prescription Coverage: Yes Pharmacy Used: [facility] Medication Management: Independent Transportation/Shopping: Independent Transportation Mode: Car (pt still drives) Needs Assistance with Transportation at Discharge: No Meal Preparation: Independent Laundry/Cleaning: Independent Finances/Bill Paying: Independent Communication: Independent Types of Care Services/Equipment Utilized Care Services: Dialysis Type: Durable Medical Equipment: Patient's Goal/Discharge Plan Patient expects to be discharged to: home Discharge Planning Actions: No needs identified Patient's Choice Rights and [employer] and Collaborative Relationships Disclosed as Indicated for Post-Acute Care: Interdisciplinary Team Engagement: PT/OT, Geriatric Assessment Social Work Referral for: Additional Information: Pt admitted s/p fall on ASA, small right posterior temporal IPH vs SAH. Introduced myself and role. Pt lives with , whom can provide assistance and transportation when pt is discharged. Will follow. [facility] 02-21-2025 Miscellaneous Notes Care Managment Initial Assessment Date: 02/21/2025 Patient Name: Douglas Callaway : 1955 Patient Information Source of Information: Patient Cognition/Language: WFL - Within Functional Limits Permission given to speak with patient screening representative/caregiver as indicated: Yes Confirmation of Payer with patient/family: Yes Payer Name: Medicare [place]: No Confirmation of Primary Care Physician: Confirmed PCP Name: Iván Case MD Seen in last 2 years?: Yes Primary Caregiver: Self If assistance needed, confirmed caregiver ready, willing and able to care for patient at discharge: Yes Confirmed with: Douglas Living Arrangements Current Residence: House Number of Floors 2 Number of Entry Steps: 2 Bed/Bath Levels: Both second floor Facility: Facility Name: Plan to Return: Lives with: Spouse/significant other Support Systems: Spouse/significant other, Children Activities of Daily Living Ambulation: Assistance (cane) Bathing/Dressing: Independent Elimination/Continence/Toileting: Independent Feeding: Independent Who Assists with Activities of Daily Living: Instrumental Activities of Daily Living Prescription Coverage: Yes Pharmacy Used: [facility] Medication Management: Independent Transportation/Shopping: Independent Transportation Mode: Car (pt still drives) Needs Assistance with Transportation at Discharge: No Meal Preparation: Independent Laundry/Cleaning: Independent Finances/Bill Paying: Independent Communication: Independent Types of Care Services/Equipment Utilized Care Services: Dialysis Type: Durable Medical Equipment: Patient's Goal/Discharge Plan Patient expects to be discharged to: home Discharge Planning Actions: No needs identified Patient's Choice Rights and [employer] and Collaborative Relationships Disclosed as Indicated for Post-Acute Care: Interdisciplinary Team Engagement: PT/OT, Geriatric Assessment Social Work Referral for: Additional Information: Pt admitted s/p fall on ASA, small right posterior temporal IPH vs SAH. Introduced myself and role. Pt lives with , whom can provide assistance and transportation when pt is discharged. Will follow. documented in this encounter [facility] 02-21-2025 Consult note Associated Order (s): IP CONSULT TO PALLIATIVE CARE Patient meets trigger criteria for Palliative Care Consultation. The case has been discussed with the Palliative Care Interdisciplinary Team and Case was discussed with Palliative Care team and Trauma team and consultation has been deferred at this time. Douglas Callaway has been seen in consultation by [facility] Palliative [facility] during their admission to [facility]. They currently have established goals of care and we have signed off of their case. [facility] [email or web address] Work Phone: 02-21-2025 Note Patient meets trigge r criteria for Palliative Care Consultation. The case has been discussed with the Palliative Care Interdisciplinary Team and Case was discussed with Palliative Care team and Trauma team and consultation has been deferred at this time. Douglas Callaway has been seen in consultation by [facility] during their admission to [facility]. They currently have established goals of care and we have signed off of their case. [facility] 02-21-2025 Consult note Associated Order (s): IP CONSULT TO PALLIATIVE CARE Patient meets trigger criteria for Palliative Care Consultation. The case has been discussed with the Palliative Care Interdisciplinary Team and Case was discussed with Palliative Care team and Trauma team and consultation has been deferred at this time. Douglas Callaway has been seen in consultation by [facility] Palliative Care during their admission to [facility]. They currently have established goals of care and we have signed off of their case. Associated Order(s): IP CONSULT TO GERIATRICS [facility] Medicine Inpatient Consult Service Admission Date: 02/20/2025 Admission Status: INPATIENT Chief Complaint: fall Reason for Appointment Geriatrics consulted for Trauma due to fall Assessment & Plan Principal Problem: Intracranial hemorrhage (HCC) Active Problems: Fall Intraventricular hemorrhage (HCC) Fall -Multiple risk factors including lumbar radiculopathy, diabetic neuropathy, previous stroke (lacunar infarct), possible medication effect - reviewed with patient how falls in the elderly are often the accumulation of multiple risk factors -History of difficulty with balance/gait instability for which patient has had significant negative work up in the past. -Continue PT/OT as able while inpatient -Vitamin D ordered but will likely be dc'd before it can be completed; recommend checking as outpatient if not done recently -Check orthostatic vital signs as able -Medications with associated fall risk include: Primidone - benefits likely outweigh risks at this time Doxepin - uses PRN, encouraged patient to be extra cautious after use -Discussed importance of changing positions slowly, especially at night -Encouraged consistent use of cane and consideration for getting shower chair -Recommend home vs outpatient PT with focus on vestibular therapy to help with balance as well as strength and coordination. At risk for delirium --Risk factors: head trauma and advanced age --Encourage PO intake, time up in chair, family visits, supervised ambulation, and sleep hygiene --If agitated, assess for and consider treating for pain --Possible medication contributions: n/a --Agree with expediting discharge out of hospital Acute pain due to trauma --Recommend scheduled acetaminophen 1g TID with PRN oxycodone (2.5mg) PRN for breakthrough -Optimize nonpharmacologic pain treatment modalities. Declining functional status --Related to deconditioning, lumbar radiculopathy, neuropathy --Continue PT/OT as able while inpatient --Anticipate d/c to home with home care level of PT/OT Subjective: HPI 69 y.o. year-old male presented from outside hospital for fall while leaving sleep study (reportedly lost his footing), initially had concern for intracranial hemorrhage but no bleeding seen in repeat imaging today. Conversation with patient: feeling OK. Was up walking with PT this AM, feels good enough to go home # of falls in the past 3 months: 2-3 # of falls in the past year: 3-5 History of falls: has been falling frequently for several years, attributes to difficulty with R leg. Has had work up in the past. Feels like it doesn't support him at times and gives way. Feels balance is worse when he closes his eyes. Living situation: lives at home with and son Assistive device: cane Dizziness: denies any significant issues Pain: denies any significant issues at baseline Incontinence/urgency (bowel, bladder, nocturia): denies any significant issues. Rare urinary urgency if he's been busy. Sleep (including use of medications/OTC for sleep): long-standing difficulty with sleep. Has CABRERA. Mood: well controlled with home meds Memory: no concerns Numbness: denies any significant issues Vision: denies any significant issues Hearing: denies any significant issues Weight/appetite: lost 10# about a year ago, has maintained Exercise/recent therapy: has done PT in the past Meds: takes primidone in the AM and PRN doxepin at night, has been effective for addressing tremors in L hand and decreased muscle spasms Advance Care Planning Healthcare Power of Air [employer] Operations Agent: Yes, Financial Power of [employer] Agent: Yes, Living Will:Yes Code Status: Full Code Allergies[1] Current Medications[2] Medical History[3] Surgical History[4] Social History Tobacco Use Smoking status: Former Current packs/day: 1.00 Types: Cigarettes Smokeless tobacco: Never Tobacco comments: Quit smokin ppd times 5 yrs, quit 1976 Substance Use Topics Alcohol use: Yes Social History Social History Narrative Not on file Family History Family History[5] Family Status Relation Name Status Father Alive Mother No partnership data on file Review of Systems Constitutional: Negative for appetite change and unexpected weight change. HENT: Negative for hearing loss. Eyes: Negative for visual disturbance. Respiratory: Positive for shortness of breath (at times with exertion). Cardiovascular: Negative for chest pain and palpitations. Gastrointestinal: Negative for constipation and diarrhea. Genitourinary: Negative for difficulty urinating. Musculoskeletal: Negative for arthralgias and myalgias. Neurological: Positive for tremors (well controlled with meds) and weakness (R leg). Negative for dizziness and light-headedness. Psychiatric/Behavioral: Positive for sleep disturbance (long-standing difficulty with sleep). Negative for confusion. Functional Status Prior to Admission: (I: Independent, A: Assisted, D: Dependent) ADLs I A D Notes Bathing [x] [] [] Dressing [x] [] [] Toileting [x] [] [] Transfers [x] [] [] Feeding [x] [] [] Ambulation [x] [] [] Assistive devices: straight cane IADLs I A D Telephone [x] [] [] Transportation [x] [] [] Shopping [x] [] [] Meal prep [x] [] [] Housework [x] [] [] Medications [x] [] [] Finances [x] [] [] Objective: BP 147/85 (BP Location: Right arm, Patient Position: Lying) Pulse 97 Temp 36.6 C (97.8 F) (Temporal) Resp 15 Ht 5' 8 (1.727 m) Wt 160 lb 4.4 oz (72.7 kg) SpO2 92% BMI 24.37 kg/m Intake/Output Summary (Last 24 hours) at 02/21/2025 0910 Last data filed at 02/21/2025 0800 Gross per 24 hour Intake 250 ml Output 1025 ml Net -775 ml Wt Readings from Last 3 Encounters: 02/20/25 160 lb 4.4 oz (72.7 kg) 12/12/19 170 lb (77.1 kg) Physical Exam Vitals reviewed. Constitutional: General: He is not in acute distress. Appearance: Normal appearance. HENT: Head: Comments: Abrasions to chin and face Ears: Comments: Hearing grossly intact Mouth/Throat: Mouth: Mucous membranes are moist. Pharynx: Oropharynx is clear. Eyes: General: Right eye: No discharge. Left eye: No discharge. Extraocular Movements: Extraocular movements intact. Cardiovascular: Rate and Rhythm: Normal rate and regular rhythm. Heart sounds: No murmur heard. Pulmonary: Effort: Pulmonary effort is normal. No respiratory distress. Breath sounds: Normal breath sounds. Abdominal: General: Bowel sounds are normal. There is no distension. Palpations: Abdomen is soft. Tenderness: There is no abdominal tenderness. Skin: General: Skin is warm and dry. Neurological: Mental Status: He is alert. Cranial Nerves: No cranial nerve deficit. Sensory: No sensory deficit. Coordination: Coordination normal. Psychiatric: Mood and Affect: Mood normal. Comments: Recent memory intact, remote memory intact Labs and Imaging: Recent Results (from the past 24 hours) CBC Collection Time: 02/20/25 3:50 PM Result Value Ref Range Auto WBC 8.8 3.6 - 10.7 10*3/uL RBC 3.78 (L) 4.40 - 5.90 10*6/uL Hemoglobin 12.3 (L) 13.0 - 18.0 g/dL Hematocrit 36.5 (L) 40.0 - 52.0 % MCV 96.6 77.0 - 99.0 fL MCH 32.5 26.0 - 34.0 pg MCHC 33.7 30.5 - 36.0 % RDW 13.1 11.5 - 15.0 % Platelets 191 140 - 440 10*3/uL MPV 9.9 9.0 - 12.7 fL Basic metabolic panel Collection Time: 02/20/25 3:50 PM Result Value Ref Range SODIUM 137 136 - 145 mmol/L POTASSIUM 4.6 3.5 - 5.1 mmol/L CHLORIDE 108 (H) 98 - 107 mmol/L CARBON DIOXIDE 23 23 - 31 mmol/L UREA NITROGEN 26 (H) 9 - 23 mg/dL CREATININE 1.47 (H) 0.72 - 1.25 mg/dL GLUCOSE 119 (H) 82 - 115 mg/dL CALCIUM 8.8 8.8 - 10.0 mg/dL ANION GAP 6 3 - 13 mmol/L eGFR 51.0 (L) >60.0 mL/min/1.73m*2 POCT glucose meter Collection Time: 02/20/25 5:45 PM Result Value Ref Range Glucose 115 (H) 70 - 100 mg/dL POCT glucose meter Collection Time: 02/20/25 8:31 PM Result Value Ref Range Glucose 116 (H) 70 - 100 mg/dL CBC auto differential Collection Time: 02/21/25 3:18 AM Result Value Ref Range Auto WBC 6.9 3.6 - 10.7 10*3/uL RBC 3.73 (L) 4.40 - 5.90 10*6/uL Hemoglobin 12.1 (L) 13.0 - 18.0 g/dL Hematocrit 37.0 (L) 40.0 - 52.0 % MCV 99.2 (H) 77.0 - 99.0 fL MCH 32.4 26.0 - 34.0 pg MCHC 32.7 30.5 - 36.0 % RDW 13.1 11.5 - 15.0 % Platelets 184 140 - 440 10*3/uL MPV 9.9 9.0 - 12.7 fL nRBC 0.0 0.0 - 2.0 /100 WBCs Neutrophils Relative 65.7 38.0 - 82.0 % Lymphocytes Relative 21.3 15.0 - 45.0 % Monocytes Relative 10.6 5.0 - 13.0 % Eosinophils Relative 1.5 0.0 - 6.0 % Basophils Relative 0.3 0.0 - 2.0 % Immature Grans % 0.6 0.0 - 2.0 % Neutrophils Absolute 4.5 1.8 - 7.5 10*3/uL Lymphocytes Absolute 1.5 1.0 - 4.3 10*3/uL Monocytes Absolute 0.7 0.0 - 0.9 10*3/uL Eosinophils Absolute 0.1 0.0 - 0.5 10*3/uL Basophils Absolute 0.0 0.0 - 0.2 10*3/uL Immature Grans Absolute 0.0 <0.1 10*3/uL Basic metabolic panel Collection Time: 02/21/25 3:18 AM Result Value Ref Range SODIUM 138 136 - 145 mmol/L POTASSIUM 4.0 3.5 - 5.1 mmol/L CHLORIDE 107 98 - 107 mmol/L CARBON DIOXIDE 24 23 - 31 mmol/L UREA NITROGEN 25 (H) 9 - 23 mg/dL CREATININE 1.68 (H) 0.72 - 1.25 mg/dL GLUCOSE 95 82 - 115 mg/dL CALCIUM 8.4 (L) 8.8 - 10.0 mg/dL ANION GAP 7 3 - 13 mmol/L eGFR 43.4 (L) >60.0 mL/min/1.73m*2 POCT glucose meter Collection Time: 02/21/25 6:35 AM Result Value Ref Range Glucose 94 70 - 100 mg/dL No results found for: TSH No components found for: B12 No results found for: VITD25 Reviewed: active problem list, medication list, social history, notes from last several encounters, lab results, imaging Follow-up: prn KHARI Pantoja CNP 02/21/25 9:10 AM [1] Not on File [2] Current Facility-Administered Medications: acetaminophen (Tylenol) tablet 1,000 mg, 1,000 mg, Oral, q8h, KHARI Wolfe CNP, 1,000 mg at 02/21/25 0639 dextrose 5 % infusion, 100 mL/hr, IntraVENous, PRN, Elba Thomas MD dextrose 50 % solution 12.5 g, 12.5 g, IntraVENous, PRN, Elba Thomas MD doxepin (SINEquan) capsule 10 mg, 10 mg, Oral, Nightly PRN, Elba Thomas MD glucagon (human recombinant) injection 1 mg, 1 mg, IntraMUSCular, PRN, Elba Thomas MD glucose oral gel 15 g, 15 g, Oral, PRN, Elba Thomas MD heparin injection 5,000 Units, 5,000 Units, SubCUTAneous, 3 times per day, Nazario Fan MD, 5,000 Units at 02/21/25 0846 hydrALAZINE (Apresoline) injection 10 mg, 10 mg, IntraVENous, q2h PRN, Elba Thomas MD Insulin Lispro (Humalog) injection 0-6 Units, 0-6 Units, SubCUTAneous, TID WC AND Insulin Lispro (Humalog) injection 0-6 Units, 0-6 Units, SubCUTAneous, Nightly, Elba Thomas MD labetalol (Normodyne,Trandate) injection 10 mg, 10 mg, IntraVENous, q2h PRN, Elba Thomas MD lamoTRIgine (LaMICtal) tablet 200 mg, 200 mg, Oral, Daily, Elba Thomas MD, 200 mg at 02/21/25750 losartan (Cozaar) tablet 50 mg, 50 mg, Oral, Daily, Elba Thomas MD, 50 mg at 02/21/25750 mupirocin (Bactroban) 2 % ointment 1 Application, 1 Application, Nasal, BID, Elba Thomas MD naloxone (Narcan) injection 0.4 mg, 0.4 mg, IntraVENous, q5 min PRN, Elba Thomas MD ondansetron ODT (Zofran-ODT) disintegrating tablet 4 mg, 4 mg, Oral, q8h PRN OR ondansetron (Zofran) injection 4 mg, 4 mg, IntraVENous, q6h PRN, Elba Thomas MD oxyCODONE (Roxicodone) immediate release tablet 2.5 mg, 2.5 mg, Oral, q4h PRN, Kaylen Ochoa APRN - [facility] polyethylene glycol (PEG) 3350 (Miralax) packet 17 g, 17 g, Oral, Daily PRN, Elba Thomas MD primidone (Mysoline) tablet 50 mg, 50 mg, Oral, Nightly, Elba Thomas MD, 50 mg at 02/20/252027 rosuvastatin (Crestor) tablet 10 mg, 10 mg, Oral, Nightly, Elba Thomas MD, 10 mg at 02/20/252027 sennosides (Senokot) tablet 8.6 mg, 1 tablet, Oral, Nightly, KHARI Wolfe CNP sodium chloride 0.9 % infusion, 75 mL/hr, IntraVENous, Continuous, Elba Thomas MD, Last Rate: 75 mL/hr at 02/20/25 1552, 75 mL/hr at 02/20/25 1552 sodium chloride 0.9% (NS) flush 30 mL, 30 mL, IntraVENous, q6h, Elba Thomas MD, 30 mL at 02/21/25 0846 sodium chloride 0.9% (NS) flush 30 mL, 30 mL, IntraVENous, PRN, Elba Thomas MD sodium chloride 0.9% (NS) flush 30 mL, 30 mL, IntraVENous, PRN, Elba Thomas MD [3] Past Medical History: Diagnosis Date Bipolar 2 disorder (CMS/HCC) (HCC) CAD (coronary artery disease) Cancer (CMS/HCC) (HCC) skin cancer forehead and left hand Cerebral artery occlusion with cerebral infarction (HCC) 2003 Depression Diabetes mellitus (HCC) Elevated LFTs GERD (gastroesophageal reflux disease) Hepatitis A Hyperlipidemia Hypertension Insomnia CABRERA (obstructive sleep apnea) TIA (transient ischemic attack) [4] Past Surgical History: Procedure Laterality Date CATARACT EXTRACTION COLONOSCOPY TONSILLECTOMY (HISTORICAL) WISDOM TOOTH EXTRACTION [5] Family History Problem Relation Name Age of Onset Heart disease Father Heart disease Mother Cancer Father Associated Order(s): IP CONSULT TO NEUROSURGERY NEUROSURGERY and SPINE CONSULT NOTE Patient Name: Douglas Callaway Patient : 1955 PCP: Iván Case MD History of Present Ilness: 69 y.o. presents with s/p fall yesterday. Patient states he frequently gets off balance. He was walking in the parking lot with a cane and fell. He recalls this event and denies LOC. He takes baby aspirin at home. He was evaluated at [facility] and there was concern for intracranial blood. He was transferred here. He had a repeat scan yesterday. Patient states he has had extensive neurological work up for his gait instability and dizziness with no significant findings. Chief complaint: s/p fall Past Medical History: Medical History[1] Past Surgical History: Surgical History[2] Home Medications: Prior to Admission medications Not on File Review of Systems Musculoskeletal: Positive for gait problem. Neurological: Positive for dizziness. All other systems reviewed and are negative. Physical Examination: Vitals: 02/21/25 0748 BP: 147/85 Pulse: 97 Resp: 15 Temp: 36.6 C (97.8 F) SpO2: 92% Physical Exam Awake and alert Converses appropriately, speech nl Pupils equal and reactive bilaterally Moves all extremities strongly and follows commands No focal neurological deficits noted Some ecchymosis on left side of face Results Labs: Last 24hrs Recent Results (from the past 24 hours) CBC Collection Time: 02/20/25 3:50 PM Result Value Ref Range Auto WBC 8.8 3.6 - 10.7 10*3/uL RBC 3.78 (L) 4.40 - 5.90 10*6/uL Hemoglobin 12.3 (L) 13.0 - 18.0 g/dL Hematocrit 36.5 (L) 40.0 - 52.0 % MCV 96.6 77.0 - 99.0 fL MCH 32.5 26.0 - 34.0 pg MCHC 33.7 30.5 - 36.0 % RDW 13.1 11.5 - 15.0 % Platelets 191 140 - 440 10*3/uL MPV 9.9 9.0 - 12.7 fL Basic metabolic panel Collection Time: 02/20/25 3:50 PM Result Value Ref Range SODIUM 137 136 - 145 mmol/L POTASSIUM 4.6 3.5 - 5.1 mmol/L CHLORIDE 108 (H) 98 - 107 mmol/L CARBON DIOXIDE 23 23 - 31 mmol/L UREA NITROGEN 26 (H) 9 - 23 mg/dL CREATININE 1.47 (H) 0.72 - 1.25 mg/dL GLUCOSE 119 (H) 82 - 115 mg/dL CALCIUM 8.8 8.8 - 10.0 mg/dL ANION GAP 6 3 - 13 mmol/L eGFR 51.0 (L) >60.0 mL/min/1.73m*2 POCT glucose meter Collection Time: 02/20/25 5:45 PM Result Value Ref Range Glucose 115 (H) 70 - 100 mg/dL POCT glucose meter Collection Time: 02/20/25 8:31 PM Result Value Ref Range Glucose 116 (H) 70 - 100 mg/dL CBC auto differential Collection Time: 02/21/25 3:18 AM Result Value Ref Range Auto WBC 6.9 3.6 - 10.7 10*3/uL RBC 3.73 (L) 4.40 - 5.90 10*6/uL Hemoglobin 12.1 (L) 13.0 - 18.0 g/dL Hematocrit 37.0 (L) 40.0 - 52.0 % MCV 99.2 (H) 77.0 - 99.0 fL MCH 32.4 26.0 - 34.0 pg MCHC 32.7 30.5 - 36.0 % RDW 13.1 11.5 - 15.0 % Platelets 184 140 - 440 10*3/uL MPV 9.9 9.0 - 12.7 fL nRBC 0.0 0.0 - 2.0 /100 WBCs Neutrophils Relative 65.7 38.0 - 82.0 % Lymphocytes Relative 21.3 15.0 - 45.0 % Monocytes Relative 10.6 5.0 - 13.0 % Eosinophils Relative 1.5 0.0 - 6.0 % Basophils Relative 0.3 0.0 - 2.0 % Immature Grans % 0.6 0.0 - 2.0 % Neutrophils Absolute 4.5 1.8 - 7.5 10*3/uL Lymphocytes Absolute 1.5 1.0 - 4.3 10*3/uL Monocytes Absolute 0.7 0.0 - 0.9 10*3/uL Eosinophils Absolute 0.1 0.0 - 0.5 10*3/uL Basophils Absolute 0.0 0.0 - 0.2 10*3/uL Immature Grans Absolute 0.0 <0.1 10*3/uL Basic metabolic panel Collection Time: 02/21/25 3:18 AM Result Value Ref Range SODIUM 138 136 - 145 mmol/L POTASSIUM 4.0 3.5 - 5.1 mmol/L CHLORIDE 107 98 - 107 mmol/L CARBON DIOXIDE 24 23 - 31 mmol/L UREA NITROGEN 25 (H) 9 - 23 mg/dL CREATININE 1.68 (H) 0.72 - 1.25 mg/dL GLUCOSE 95 82 - 115 mg/dL CALCIUM 8.4 (L) 8.8 - 10.0 mg/dL ANION GAP 7 3 - 13 mmol/L eGFR 43.4 (L) >60.0 mL/min/1.73m*2 POCT glucose meter Collection Time: 02/21/25 6:35 AM Result Value Ref Range Glucose 94 70 - 100 mg/dL Radiology Personal review: Repeat CT head was reviewed, there is no evidence of intracranial blood noted ASSESSMENT / PLAN : 69yo m s/p fall yesterday. His CT scan this morning was reviewed. There is no obvious evidence of intracranial blood. There are no neurosurgical indications. He may be started on dvt ppx today. He may restart his baby aspirin with low risk from a cranial standpoint. No seizure ppx. He does not require additional imaging at this time. Neurosurgery will sign off. Please call with additional questions or concerns. Case was discussed with Dr. Montelongo. I spent a total time of 45 minutes reviewing patient imaging chart, examining patient, and discussing patient with other providers regarding intracranial hemorrhage. [1] Past Medical History: Diagnosis Date Bipolar 2 disorder (CMS/HCC) (HCC) CAD (coronary artery disease) Cancer (CMS/HCC) (HCC) skin cancer forehead and left hand Cerebral artery occlusion with cerebral infarction (HCC) 2003 Depression Diabetes mellitus (HCC) Elevated LFTs GERD (gastroesophageal reflux disease) Hepatitis A Hyperlipidemia Hypertension Insomnia CABRERA (obstructive sleep apnea) TIA (transient ischemic attack) [2] Past Surgical History: Procedure Laterality Date CATARACT EXTRACTION COLONOSCOPY TONSILLECTOMY (HISTORICAL) WISDOM TOOTH EXTRACTION Cosigned by Micky Montelongo MD at 02/21/2025 1:59 PM EDT Associated attestation - Micky Montelongo MD - 02/21/2025 1:59 PM EDT I have discussed the patient with the advanced practice provider. I have reviewed and verified the information contained within their note. I agree with their assessment and plan. I have also personally seen and examined the patient. This is a 69-year-old male who fell yesterday. He denies loss of consciousness. He has noted to be on 81 mg of aspirin. He was transferred after initial CT demonstrated intracranial blood. He currently has no significant complaints other than gait instability and dizziness. He does not have any focal objective neurological deficits on exam. Initial CT was suspicious for possible small traumatic subarachnoid hemorrhage. Follow-up CT demonstrated resolution of the blood. There are no neurosurgical indications. We will sign off. He can be discharged from our standpoint. No need for follow-up imaging or follow-up appointment unless he encounters difficulty with recovery. It is okay for him to continue his aspirin. I spent a total of 55 minutes on this visit including direct interaction with the patient, discussion with staff and clinicians, review of data and imaging and preparation of this note documented in this encounter [facility] 02-21-2025 Note ---- Attestation signed by Moises Holguin MD at 02/27/2025 10:46 PM ~~~~~~~~~~~~~~~~~~~~~~~~~~~~~~~~~~~~~~ ~~~~~~~~~~~~~~~~~~~~ Attending physician addendum: I independently saw and evaluated the patient. I personally obtained the gordillo and critical portion of the history and physical exam. I reviewed and agree with the documentation below. I personally reviewed patient's labs and imaging studies. My findings agree with the below note except for any details corrected. I have examined the patient at the date below. Problem List[1] I have evaluated the patient on: 02/21/25 Total Care Time (combined between EDUCATIONAL AUDIOLOGIST-BAND NAILER/LOIS-C/resident and myself) throughout the day today was >= 30 minutes (including chart/data review/analysis, care coordination, and [id number] encounter), and was spent discussing/counseling the patient/family regarding the care plan for Douglas Callaway. I examined the patient independently. I reviewed relevant data myself and may have also done so in the context of team rounds. A full chart review was performed. In addition, time was also spent specifically coordinating care regarding: discharge planning, co-ordination with Consultants. I personally spent greater than 30 minutes involved with discharge planning, education, and coordination in arranging this patient's discharge today. Osiel Holguin MD FACS Trauma, Surgical Critical Care, & General Surgery Division of Trauma Department of Surgery [facility] [1] Patient Active Problem List Diagnosis Hyperglycemia CAD, multiple vessel S/P CABG x 3 Fall Intraventricular hemorrhage (HCC) Intracranial hemorrhage (HCC) ---- Department of Trauma / Critical Care Discharge Summary Name: Douglas Callaway Date: 02/21/2025 11:04 AM : 1955 Age/Sex: 69 y.o. male Admit Date: 02/20/2025 Discharge Date: 02/21/2025 Attending: Iban Ramirez MD Discharge Diagnosis: 1. Intracranial hemorrhage (HCC) Problem List[1] Body mass index is 24.37 kg/m?. BMI Classification: Normal Weight (BMI 18.5-24.9) Reason for Hospitalization: The patient was admitted for fall. Hospital Course (Care, treatment and services provided): Please see H&P and prior notes for more detailed summary of previous investigations and clinical assessment prior to this admission. Brief HPI 69 y.o. male status post fall. The incident happened around this am on 02/20/2025 at [facility]. When the event happened the patient was leaving the hospital after a sleep study and fell- did not get dizzy but lost his footing. INJURIES: Temporal IPH PROCEDURES: none INCIDENTAL FINDINGS: none Hospital course: 69yM presents as direct admit from [place] after falling outside in the parking lot found to have temporal IPH. Neurosurgery consulted, no intervention, no AED. Repeat CT head with no bleed noted. Geriatrics and palliative consulted. PT rec home with assist. Discharged to home on 02/21. Consultations: IP CONSULT TO GERIATRICS IP CONSULT TO PALLIATIVE CARE IP CONSULT TO NEUROSURGERY PCP: Iván Case MD Recommended Follow-ups: PCP Trauma prn Treatments and Procedures with outcomes: Labs: Data Review Data CBC with Differential: Lab Results Component Value Date WBC 6.9 02/21/2025 RBC 3.73 (L) 02/21/2025 HGB 12.1 (L) 02/21/2025 HCT 37.0 (L) 02/21/2025 PLT 184 02/21/2025 CMP: Lab Results Component Value Date NA 138 02/21/2025 K 4.0 02/21/2025 CL 107 02/21/2025 CO2 24 02/21/2025 BUN 25 (H) 02/21/2025 CREATININE 1.68 (H) 02/21/2025 GLUCOSE 95 02/21/2025 CALCIUM 8.4 (L) 02/21/2025 BMP: Hepatic Function Panel: Ionized Calcium: No components found for: IONCA Magnesium: No results found for: MG Phosphorus: No results found for: PHOS PT/INR: No results found for: PROTIME, INR PTT: No results found for: APTT[APTT Last 3 Troponin: No results found for: TROPONINI Urine Culture: No components found for: CURINE Blood Culture: No components found for: CBLOOD, CFUNGUSBL Blood Culture from Central Line: No components found for: CBLOODLN Stool Culture: No components found for: CSTOOL Sputum Culture: No components found for: CSPUTUM Sputum Culture for AFB: No components found for: CAFBSM Wound Culture: Significant Imaging Results: POCT glucose meter Result Date: 02/21/2025 Performed by: [facility], [address] [place] [address] CLIA ID: [id number] CT cervical spine wo IV contrast Result Date: 02/21/2025 Patient Name: DOUGLAS CALLAWAY : 1955 Exam Date/Time: 02/20/2025 17:07 Procedure: CT CERVICAL SPINE WO IV CONTRAST Ordering Provider: RAMIREZ NATHAN Reason For Exam: fu sp mech fall from standin (more content not included)... [facility] 02-21-2025 Consult note Associated Order (s): IP CONSULT TO GERIATRICS [facility] Ger[facility] Medicine Inpatient Consult Service Admission Date: 02/20/2025 Admission Status: INPATIENT Chief Complaint: fall Reason for Appointment Geriatrics consulted for Trauma due to fall Assessment & Plan Principal Problem: Intracranial hemorrhage (HCC) Active Problems: Fall Intraventricular hemorrhage (HCC) Fall -Multiple risk factors including lumbar radiculopathy, diabetic neuropathy, previous stroke (lacunar infarct), possible medication effect - reviewed with patient how falls in the elderly are often the accumulation of multiple risk factors -History of difficulty with balance/gait instability for which patient has had significant negative work up in the past. -Continue PT/OT as able while inpatient -Vitamin D ordered but will likely be dc'd before it can be completed; recommend checking as outpatient if not done recently -Check orthostatic vital signs as able -Medications with associated fall risk include: Primidone - benefits likely outweigh risks at this time Doxepin - uses PRN, encouraged patient to be extra cautious after use -Discussed importance of changing positions slowly, especially at night -Encouraged consistent use of cane and consideration for getting shower chair -Recommend home vs outpatient PT with focus on vestibular therapy to help with balance as well as strength and coordination. At risk for delirium --Risk factors: head trauma and advanced age --Encourage PO intake, time up in chair, family visits, supervised ambulation, and sleep hygiene --If agitated, assess for and consider treating for pain --Possible medication contributions: n/a --Agree with expediting discharge out of hospital Acute pain due to trauma --Recommend scheduled acetaminophen 1g TID with PRN oxycodone (2.5mg) PRN for breakthrough -Optimize nonpharmacologic pain treatment modalities. Declining functional status --Related to deconditioning, lumbar radiculopathy, neuropathy --Continue PT/OT as able while inpatient --Anticipate d/c to home with home care level of PT/OT Subjective: HPI 69 y.o. year-old male presented from outside hospital for fall while leaving sleep study (reportedly lost his footing), initially had concern for intracranial hemorrhage but no bleeding seen in repeat imaging today. Conversation with patient: feeling OK. Was up walking with PT this AM, feels good enough to go home # of falls in the past 3 months: 2-3 # of falls in the past year: 3-5 History of falls: has been falling frequently for several years, attributes to difficulty with R leg. Has had work up in the past. Feels like it doesn't support him at times and gives way. Feels balance is worse when he closes his eyes. Living situation: lives at home with and son Assistive device: cane Dizziness: denies any significant issues Pain: denies any significant issues at baseline Incontinence/urgency (bowel, bladder, nocturia): denies any significant issues. Rare urinary urgency if he's been busy. Sleep (including use of medications/OTC for sleep): long-standing difficulty with sleep. Has CABRERA. Mood: well controlled with home meds Memory: no concerns Numbness: denies any significant issues Vision: denies any significant issues Hearing: denies any significant issues Weight/appetite: lost 10# about a year ago, has maintained Exercise/recent therapy: has done PT in the past Meds: takes primidone in the AM and PRN doxepin at night, has been effective for addressing tremors in L hand and decreased muscle spasms Advance Care Planning Healthcare Power of Air Export Operations Agent: Yes, Financial Power of Air Export Operations Agent: Yes, Living Will:Yes Code Status: Full Code Allergies[1] Current Medications[2] Medical History[3] Surgical History[4] Social History Tobacco Use Smoking status: Former Current packs/day: 1.00 Types: Cigarettes Smokeless tobacco: Never Tobacco comments: Quit smokin ppd times 5 yrs, quit 1976 Substance Use Topics Alcohol use: Yes Social History Social History Narrative Not on file Family History Family History[5] Family Status Relation Name Status Father Alive Mother No partnership data on file Review of Systems Constitutional: Negative for appetite change and unexpected weight change. HENT: Negative for hearing loss. Eyes: Negative for visual disturbance. Respiratory: Positive for shortness of breath (at times with exertion). Cardiovascular: Negative for chest pain and palpitations. Gastrointestinal: Negative for constipation and diarrhea. Genitourinary: Negative for difficulty urinating. Musculoskeletal: Negative for arthralgias and myalgias. Neurological: Positive for tremors (well controlled with meds) and weakness (R leg). Negative for dizziness and light-headedness. Psychiatric/Behavioral: Positive for sleep disturbance (long-standing difficulty with sleep). Negative for confusion. Functional Status Prior to Admission: (I: Independent, A: Assisted, D: Dependent) ADLs I A D Notes Bathing [x] [] [] Dressing [x] [] [] Toileting [x] [] [] Transfers [x] [] [] Feeding [x] [] [] Ambulation [x] [] [] Assistive devices: straight cane IADLs I A D Telephone [x] [] [] Transportation [x] [] [] Shopping [x] [] [] Meal prep [x] [] [] Housework [x] [] [] Medications [x] [] [] Finances [x] [] [] Objective: BP 147/85 (BP Location: Right arm, Patient Position: Lying) Pulse 97 Temp 36.6 C (97.8 F) (Temporal) Resp 15 Ht 5' 8 (1.727 m) Wt 160 lb 4.4 oz (72.7 kg) SpO2 92% BMI 24.37 kg/m Intake/Output Summary (Last 24 hours) at 02/21/2025 0910 Last data filed at 02/21/2025 0800 Gross per 24 hour Intake 250 ml Output 1025 ml Net -775 ml Wt Readings from Last 3 Encounters: 02/20/25 160 lb 4.4 oz (72.7 kg) 12/12/19 170 lb (77.1 kg) Physical Exam Vitals reviewed. Constitutional: General: He is not in acute distress. Appearance: Normal appearance. HENT: Head: Comments: Abrasions to chin and face Ears: Comments: Hearing grossly intact Mouth/Throat: Mouth: Mucous membranes are moist. Pharynx: Oropharynx is clear. Eyes: General: Right eye: No discharge. Left eye: No discharge. Extraocular Movements: Extraocular movements intact. Cardiovascular: Rate and Rhythm: Normal rate and regular rhythm. Heart sounds: No murmur heard. Pulmonary: Effort: Pulmonary effort is normal. No respiratory distress. Breath sounds: Normal breath sounds. Abdominal: General: Bowel sounds are normal. There is no distension. Palpations: Abdomen is soft. Tenderness: There is no abdominal tenderness. Skin: General: Skin is warm and dry. Neurological: Mental Status: He is alert. Cranial Nerves: No cranial nerve deficit. Sensory: No sensory deficit. Coordination: Coordination normal. Psychiatric: Mood and Affect: Mood normal. Comments: Recent memory intact, remote memory intact Labs and Imaging: Recent Results (from the past 24 hours) CBC Collection Time: 02/20/25 3:50 PM Result Value Ref Range Auto WBC 8.8 3.6 - 10.7 10*3/uL RBC 3.78 (L) 4.40 - 5.90 10*6/uL Hemoglobin 12.3 (L) 13.0 - 18.0 g/dL Hematocrit 36.5 (L) 40.0 - 52.0 % MCV 96.6 77.0 - 99.0 fL MCH 32.5 26.0 - 34.0 pg MCHC 33.7 30.5 - 36.0 % RDW 13.1 11.5 - 15.0 % Platelets 191 140 - 440 10*3/uL MPV 9.9 9.0 - 12.7 fL Basic metabolic panel Collection Time: 02/20/25 3:50 PM Result Value Ref Range SODIUM 137 136 - 145 mmol/L POTASSIUM 4.6 3.5 - 5.1 mmol/L CHLORIDE 108 (H) 98 - 107 mmol/L CARBON DIOXIDE 23 23 - 31 mmol/L UREA NITROGEN 26 (H) 9 - 23 mg/dL CREATININE 1.47 (H) 0.72 - 1.25 mg/dL GLUCOSE 119 (H) 82 - 115 mg/dL CALCIUM 8.8 8.8 - 10.0 mg/dL ANION GAP 6 3 - 13 mmol/L eGFR 51.0 (L) >60.0 mL/min/1.73m*2 POCT glucose meter Collection Time: 02/20/25 5:45 PM Result Value Ref Range Glucose 115 (H) 70 - 100 mg/dL POCT glucose meter Collection Time: 02/20/25 8:31 PM Result Value Ref Range Glucose 116 (H) 70 - 100 mg/dL CBC auto differential Collection Time: 02/21/25 3:18 AM Result Value Ref Range Auto WBC 6.9 3.6 - 10.7 10*3/uL RBC 3.73 (L) 4.40 - 5.90 10*6/uL Hemoglobin 12.1 (L) 13.0 - 18.0 g/dL Hematocrit 37.0 (L) 40.0 - 52.0 % MCV 99.2 (H) 77.0 - 99.0 fL MCH 32.4 26.0 - 34.0 pg MCHC 32.7 30.5 - 36.0 % RDW 13.1 11.5 - 15.0 % Platelets 184 140 - 440 10*3/uL MPV 9.9 9.0 - 12.7 fL nRBC 0.0 0.0 - 2.0 /100 WBCs Neutrophils Relative 65.7 38.0 - 82.0 % Lymphocytes Relative 21.3 15.0 - 45.0 % Monocytes Relative 10.6 5.0 - 13.0 % Eosinophils Relative 1.5 0.0 - 6.0 % Basophils Relative 0.3 0.0 - 2.0 % Immature Grans % 0.6 0.0 - 2.0 % Neutrophils Absolute 4.5 1.8 - 7.5 10*3/uL Lymphocytes Absolute 1.5 1.0 - 4.3 10*3/uL Monocytes Absolute 0.7 0.0 - 0.9 10*3/uL Eosinophils Absolute 0.1 0.0 - 0.5 10*3/uL Basophils Absolute 0.0 0.0 - 0.2 10*3/uL Immature Grans Absolute 0.0 <0.1 10*3/uL Basic metabolic panel Collection Time: 02/21/25 3:18 AM Result Value Ref Range SODIUM 138 136 - 145 mmol/L POTASSIUM 4.0 3.5 - 5.1 mmol/L CHLORIDE 107 98 - 107 mmol/L CARBON DIOXIDE 24 23 - 31 mmol/L UREA NITROGEN 25 (H) 9 - 23 mg/dL CREATININE 1.68 (H) 0.72 - 1.25 mg/dL GLUCOSE 95 82 - 115 mg/dL CALCIUM 8.4 (L) 8.8 - 10.0 mg/dL ANION GAP 7 3 - 13 mmol/L eGFR 43.4 (L) >60.0 mL/min/1.73m*2 POCT glucose meter Collection Time: 02/21/25 6:35 AM Result Value Ref Range Glucose 94 70 - 100 mg/dL No results found for: TSH No components found for: B12 No results found for: VITD25 Reviewed: active problem list, medication list, social history, notes from last several encounters, lab results, imaging Follow-up: colten Vilchis APRN - DONTRELL 02/21/25 9:10 AM [1] Not on File [2] Current Facility-Administered Medications: acetaminophen (Tylenol) tablet 1,000 mg, 1,000 mg, Oral, q8h, Kaylen Ochoa, EDUCATIONAL AUDIOLOGIST - BAND NAILER, 1,000 mg at 02/21/25 0639 dextrose 5 % infusion, 100 mL/hr, IntraVENous, PRN, Elba Thomas MD dextrose 50 % solution 12.5 g, 12.5 g, IntraVENous, PRN, Elba Thomas MD doxepin (SINEquan) capsule 10 mg, 10 mg, Oral, Nightly PRN, Elba Thomas MD glucagon (human recombinant) injection 1 mg, 1 mg, IntraMUSCular, PRN, Elba Thomas MD glucose oral gel 15 g, 15 g, Oral, PRN, Elba Thomas MD heparin injection 5,000 Units, 5,000 Units, SubCUTAneous, 3 times per day, Nazario Fan MD, 5,000 Units at 02/21/25 0846 hydrALAZINE (Apresoline) injection 10 mg, 10 mg, IntraVENous, q2h PRN, Elba Thomas MD Insulin Lispro (Humalog) injection 0-6 Units, 0-6 Units, SubCUTAneous, TID WC AND Insulin Lispro (Humalog) injection 0-6 Units, 0-6 Units, SubCUTAneous, Nightly, Elba Thomas MD labetalol (Normodyne,Trandate) injection 10 mg, 10 mg, IntraVENous, q2h PRN, Elba Thomas MD lamoTRIgine (LaMICtal) tablet 200 mg, 200 mg, Oral, Daily, Elba Thomas MD, 200 mg at 02/21/25 0751 losartan (Cozaar) tablet 50 mg, 50 mg, Oral, Daily, Elba Thomas MD, 50 mg at 02/21/25 0751 mupirocin (Bactroban) 2 % ointment 1 Application, 1 Application, Nasal, BID, Elba Thomas MD naloxone (Narcan) injection 0.4 mg, 0.4 mg, IntraVENous, q5 min PRN, Elba Thomas MD ondansetron ODT (Zofran-ODT) disintegrating tablet 4 mg, 4 mg, Oral, q8h PRN OR ondansetron (Zofran) injection 4 mg, 4 mg, IntraVENous, q6h PRN, Elba Thomas MD oxyCODONE (Roxicodone) immediate release tablet 2.5 mg, 2.5 mg, Oral, q4h PRN, KHARI Wolfe CNP polyethylene glycol (PEG) 3350 (Miralax) packet 17 g, 17 g, Oral, Daily PRN, Elba Thomas MD primidone (Mysoline) tablet 50 mg, 50 mg, Oral, Nightly, Elba Thomas MD, 50 mg at 02/20/252027 rosuvastatin (Crestor) tablet 10 mg, 10 mg, Oral, Nightly, Elba Thomas MD, 10 mg at 02/20/252027 sennosides (Senokot) tablet 8.6 mg, 1 tablet, Oral, Nightly, KHARI Wolfe CNP sodium chloride 0.9 % infusion, 75 mL/hr, IntraVENous, Continuous, Elba Thomas MD, Last Rate: 75 mL/hr at 02/20/25 1552, 75 mL/hr at 02/20/25 1552 sodium chloride 0.9% (NS) flush 30 mL, 30 mL, IntraVENous, q6h, Elba Thomas MD, 30 mL at 02/21/25 0846 sodium chloride 0.9% (NS) flush 30 mL, 30 mL, IntraVENous, PRN, Elba Thomas MD sodium chloride 0.9% (NS) flush 30 mL, 30 mL, IntraVENous, PRN, Elba Thomas MD [3] Past Medical History: Diagnosis Date Bipolar 2 disorder (CMS/HCC) (HCC) CAD (coronary artery disease) Cancer (CMS/HCC) (HCC) skin cancer forehead and left hand Cerebral artery occlusion with cerebral infarction (HCC) 2003 Depression Diabetes mellitus (HCC) Elevated LFTs GERD (gastroesophageal reflux disease) Hepatitis A Hyperlipidemia Hypertension Insomnia CABRERA (obstructive sleep apnea) TIA (transient ischemic attack) [4] Past Surgical History: Procedure Laterality Date CATARACT EXTRACTION COLONOSCOPY TONSILLECTOMY (HISTORICAL) WISDOM TOOTH EXTRACTION [5] Family History Problem Relation Name Age of Onset Heart disease Father Heart disease Mother Cancer Father [facility] [email or web address] Work Phone: 02-21-2025 Hospital Discharge instructions KHARI Wolfe CNP - 02/21/2025 9:10 AM EDT Behavioral Health Resources for Trauma Survivors After experiencing a traumatic event, some people may find that they experience psychological distress that can impact their daily functioning and relationships. Common reactions to traumatic events include having unwanted memories or dreams of the event, feeling upset when reminded of the event, trying to avoid things that may remind you of the event, or experiencing changes in your thinking, relationships, and behaviors that negatively impact your life. There are resources, including counseling and medications, that can help you to talk about and adjust to the traumatic event and limit its impact on your life. Please consider calling one of the following behavioral health agencies for support: [facility] [address] [place] [address], [facility] [address] [facility] [address] [place], [place] [address] [facility] [address] [facility] [id number] [facility] [address], [facility] [id number] Should you be out of the [facility] area, you can use this resource to locate local mental health agencies: [employer] Victim Assistance Program- provides resources and support to victims of violent crimes, offers victim advocates for those involved in legal proceedings [phone] Should you need immediate help in coping with symptoms or should you feel at risk of harming yourself or others, please use the following crisis resources: Crisis Hotline: 618 Crisis Text Helpine: Text 4HOPE to 832387 Call 911 or go to your nearest emergency department KHARI Wolfe CNP - 02/21/2025 9:10 AM EDT As tolerated KHARI Wolfe CNP - 02/21/2025 9:11 AM EDT Regular diet Mary Rico RN - 02/21/2025 5:56 AM EDT Falling is NOT a normal part of aging. If you have had a fall or have a fear of falling, please reach out for more information on Fall Prevention strategies . [email or web address] or call #[phone]. The following attachments cannot be sent through Care Everywhere.Intracerebral Hemorrhage Discharge Instructions (Ecuadorean)Getting Up From a Fall (Ecuadorean)Preventing Falls in Older Adults (Ecuadorean)documented in this encounter [facility] 02-21-2025 Consult note Associated Order (s): IP CONSULT TO NEUROSURGERY NEUROSURGERY and SPINE CONSULT NOTE Patient Name: Douglas Callaway Patient : 1955 PCP: Iván Case MD History of Present Ilness: 69 y.o. presents with s/p fall yesterday. Patient states he frequently gets off balance. He was walking in the parking lot with a cane and fell. He recalls this event and denies LOC. He takes baby aspirin at home. He was evaluated at [facility] and there was concern for intracranial blood. He was transferred here. He had a repeat scan yesterday. Patient states he has had extensive neurological work up for his gait instability and dizziness with no significant findings. Chief complaint: s/p fall Past Medical History: Medical History[1] Past Surgical History: Surgical History[2] Home Medications: Prior to Admission medications Not on File Review of Systems Musculoskeletal: Positive for gait problem. Neurological: Positive for dizziness. All other systems reviewed and are negative. Physical Examination: Vitals: 02/21/25 0748 BP: 147/85 Pulse: 97 Resp: 15 Temp: 36.6 C (97.8 F) SpO2: 92% Physical Exam Awake and alert Converses appropriately, speech nl Pupils equal and reactive bilaterally Moves all extremities strongly and follows commands No focal neurological deficits noted Some ecchymosis on left side of face Results Labs: Last 24hrs Recent Results (from the past 24 hours) CBC Collection Time: 02/20/25 3:50 PM Result Value Ref Range Auto WBC 8.8 3.6 - 10.7 10*3/uL RBC 3.78 (L) 4.40 - 5.90 10*6/uL Hemoglobin 12.3 (L) 13.0 - 18.0 g/dL Hematocrit 36.5 (L) 40.0 - 52.0 % MCV 96.6 77.0 - 99.0 fL MCH 32.5 26.0 - 34.0 pg MCHC 33.7 30.5 - 36.0 % RDW 13.1 11.5 - 15.0 % Platelets 191 140 - 440 10*3/uL MPV 9.9 9.0 - 12.7 fL Basic metabolic panel Collection Time: 02/20/25 3:50 PM Result Value Ref Range SODIUM 137 136 - 145 mmol/L POTASSIUM 4.6 3.5 - 5.1 mmol/L CHLORIDE 108 (H) 98 - 107 mmol/L CARBON DIOXIDE 23 23 - 31 mmol/L UREA NITROGEN 26 (H) 9 - 23 mg/dL CREATININE 1.47 (H) 0.72 - 1.25 mg/dL GLUCOSE 119 (H) 82 - 115 mg/dL CALCIUM 8.8 8.8 - 10.0 mg/dL ANION GAP 6 3 - 13 mmol/L eGFR 51.0 (L) >60.0 mL/min/1.73m*2 POCT glucose meter Collection Time: 02/20/25 5:45 PM Result Value Ref Range Glucose 115 (H) 70 - 100 mg/dL POCT glucose meter Collection Time: 02/20/25 8:31 PM Result Value Ref Range Glucose 116 (H) 70 - 100 mg/dL CBC auto differential Collection Time: 02/21/25 3:18 AM Result Value Ref Range Auto WBC 6.9 3.6 - 10.7 10*3/uL RBC 3.73 (L) 4.40 - 5.90 10*6/uL Hemoglobin 12.1 (L) 13.0 - 18.0 g/dL Hematocrit 37.0 (L) 40.0 - 52.0 % MCV 99.2 (H) 77.0 - 99.0 fL MCH 32.4 26.0 - 34.0 pg MCHC 32.7 30.5 - 36.0 % RDW 13.1 11.5 - 15.0 % Platelets 184 140 - 440 10*3/uL MPV 9.9 9.0 - 12.7 fL nRBC 0.0 0.0 - 2.0 /100 WBCs Neutrophils Relative 65.7 38.0 - 82.0 % Lymphocytes Relative 21.3 15.0 - 45.0 % Monocytes Relative 10.6 5.0 - 13.0 % Eosinophils Relative 1.5 0.0 - 6.0 % Basophils Relative 0.3 0.0 - 2.0 % Immature Grans % 0.6 0.0 - 2.0 % Neutrophils Absolute 4.5 1.8 - 7.5 10*3/uL Lymphocytes Absolute 1.5 1.0 - 4.3 10*3/uL Monocytes Absolute 0.7 0.0 - 0.9 10*3/uL Eosinophils Absolute 0.1 0.0 - 0.5 10*3/uL Basophils Absolute 0.0 0.0 - 0.2 10*3/uL Immature Grans Absolute 0.0 <0.1 10*3/uL Basic metabolic panel Collection Time: 02/21/25 3:18 AM Result Value Ref Range SODIUM 138 136 - 145 mmol/L POTASSIUM 4.0 3.5 - 5.1 mmol/L CHLORIDE 107 98 - 107 mmol/L CARBON DIOXIDE 24 23 - 31 mmol/L UREA NITROGEN 25 (H) 9 - 23 mg/dL CREATININE 1.68 (H) 0.72 - 1.25 mg/dL GLUCOSE 95 82 - 115 mg/dL CALCIUM 8.4 (L) 8.8 - 10.0 mg/dL ANION GAP 7 3 - 13 mmol/L eGFR 43.4 (L) >60.0 mL/min/1.73m*2 POCT glucose meter Collection Time: 02/21/25 6:35 AM Result Value Ref Range Glucose 94 70 - 100 mg/dL Radiology Personal review: Repeat CT head was reviewed, there is no evidence of intracranial blood noted ASSESSMENT / PLAN : 69yo m s/p fall yesterday. His CT scan this morning was reviewed. There is no obvious evidence of intracranial blood. There are no neurosurgical indications. He may be started on dvt ppx today. He may restart his baby aspirin with low risk from a cranial standpoint. No seizure ppx. He does not require additional imaging at this time. Neurosurgery will sign off. Please call with additional questions or concerns. Case was discussed with Dr. Montelongo. I spent a total time of 45 minutes reviewing patient imaging chart, examining patient, and discussing patient with other providers regarding intracranial hemorrhage. [1] Past Medical History: Diagnosis Date Bipolar 2 disorder (CMS/HCC) (HCC) CAD (coronary artery disease) Cancer (CMS/HCC) (HCC) skin cancer forehead and left hand Cerebral artery occlusion with cerebral infarction (HCC) 2003 Depression Diabetes mellitus (HCC) Elevated LFTs GERD (gastroesophageal reflux disease) Hepatitis A Hyperlipidemia Hypertension Insomnia CABRERA (obstructive sleep apnea) TIA (transient ischemic attack) [2] Past Surgical History: Procedure Laterality Date CATARACT EXTRACTION COLONOSCOPY TONSILLECTOMY (HISTORICAL) WISDOM TOOTH EXTRACTION Cosigned by Micky Montelongo MD at 02/21/2025 1:59 PM EDT Associated attestation - Micky Montelongo MD - 02/21/2025 1:59 PM EDT I have discussed the patient with the advanced practice provider. I have reviewed and verified the information contained within their note. I agree with their assessment and plan. I have also personally seen and examined the patient. This is a 69-year-old male who fell yesterday. He denies loss of consciousness. He has noted to be on 81 mg of aspirin. He was transferred after initial CT demonstrated intracranial blood. He currently has no significant complaints other than gait instability and dizziness. He does not have any focal objective neurological deficits on exam. Initial CT was suspicious for possible small traumatic subarachnoid hemorrhage. Follow-up CT demonstrated resolution of the blood. There are no neurosurgical indications. We will sign off. He can be discharged from our standpoint. No need for follow-up imaging or follow-up appointment unless he encounters difficulty with recovery. It is okay for him to continue his aspirin. I spent a total of 55 minutes on this visit including direct interaction with the patient, discussion with staff and clinicians, review of data and imaging and preparation of this note [employer] Phone: 02-20-2025 Note ---- Attestation signed by Moises Holguin MD at 03/02/2025 12:12 PM (Updated) ~~~~~~~~~~~~~~~~~~~~~~~~~~~~~~~~~~~~~~ ~~~~~~~~~~~~~~~~~~~~~ Attending physician addendum: I independently saw and evaluated the patient. I personally obtained the gordillo and critical portion of the history and physical exam. I reviewed and agree with the documentation below. I personally reviewed patient's labs and imaging studies. My findings agree with the below note except for any details corrected. A complete review of systems was obtained and is negative except as stated in HPI. I have examined the patient at the date below. Problem List[1] Per Dr Garcia's note. I have evaluated the patient on 02/20/25 I have evaluated the patient within 10 minutes of my notification of his arrival as a direct TICU admission from [place] ED HPI: 69 y.o. male on ASA sustained a mechanical ground level fall, + hit head, denies LOC Chief complain: headache Problem list: Temporal ICH Fall Essential HTN HLD Depression GERD Osteoporosis Procedures: none Management / Plan : Neuro / Spine - Repeat CT head with C-spine and Max/Face at 6PM - Neurosurgery consulted - Seizure ppx: none - DDAVP x1 - Pain control: Tylenol, PRN Oxy - Elevate HOB 30 degrees - Neuro checks q1hr Depression/Bipolar - Home cymbalta, lamotrigine Tremors - Primidone, doxepin PRN - Palliative consult - Geriatrics consult Cardiovascular - Hemodynamically stable - BP Goal <150 SBP - Labetalol/hydralazine prn - Telemetry - Hold home ASA, losartan, metoprolol Pulmonary - Standard O2 protocol - IS FEN/GI - NPO with NS 125cc/H - Zofran PRN - LINES TENDER consulted - Home protonix - Daily BMP, CBC, Mg, Phos - No acute issues - Monitor I/Os - Goal UOP > 0.5 ml/kg/hr Endocrine - POCT Glucose - SSI insulin Heme - Hgb stable - No transfusions indicated ID - No acute issues - Mupirocin decolonization Lines/Devices: - PIV Prophylaxis: DVT: SCDs, no chemoppx Has DVT PPX been started? Yes If no, why? Patient with Acute Head Bleed GI: Pepcid 20mg bid Pressure Ulcer: Continue to monitor, q2 turns Musculoskeletal: - PT/OT WB Status: RUE:AT LUE: AT RLE: AT LLE: AT Is the patient in restraints?: no Medications Reconciled- Yes [x] NO [], why Disposition: T2 Neurosurgery Dr Montelongo was notified at 3:19PM and responded at 3:23PM. He evaluated imaging and the following plan was discussed: BP control, rCTH Level of Medical Decision Making: risk of morbidity from additional diagnostic testing or treatment due to TBI []High [x]Moderate []Low Personally Reviewed/Independently interpreted patient's: [x]Epic notes [x]Radiology studies [x]Labs []EKG []Ordering tests []Other Discussed/ With: [x]Patient/Family [x]RN [x]Consultants []SW/TCC []Other I spent total time of >= 55 minutes reviewing previous notes, test results, and face to face with Douglas Callaway discussing the diagnosis and importance of compliance with the treatment plan as well as documenting on the day of the visit. Time was spent, Reviewing medical record including recent tests and results Ordering prescription medications/tests and procedures Communicating results to the patient/family/caregiver Counseling/educating the patient/family/caregiver Documenting clinical information the patient's electronic record Coordination of care for the patient Performing a medical appropriate exam and evaluation Osiel Holguin MD FACS Trauma, Surgical Critical Care, & General Surgery Division of Trauma Department of Surgery [facility] P [1] Patient Active Problem List Diagnosis Hyperglycemia CAD, multiple vessel S/P CABG x 3 Fall Intraventricular hemorrhage (HCC) Intracranial hemorrhage (HCC) ---- [facility] Trauma H&P 02/21/2025 6:34 AM Trauma Attending: Dr. Holguin Level of Initial Activation: Direct Admit Upgraded: No To:N/A Mechanism of Injury: Fall Mechanical Mechanism of Arrival:Transfer from [place] Chief Complaint: head pain History of Traumatic Injury: 69 y.o. male status post fall. The incident happened around this am on 02/20/2025 at [facility]. When the event happened the patient was leaving the hospital after a sleep study and fell- did not get dizzy but lost his footing. Patient pain level currently is 2/10. Of note he has been falling frequently. Did the Patient have LOC?No C-collar in place on arrival? No Was the patient on an antiplatelet or anticoagulant medication? Yes If yes, which one? ASA If any of the screen questions are answered 'yes,' consider ordering a COVID test Medical History[1] Surgical History[2] Family History[3] Social History Socioecon (more content not included)... [facility] 02-20-2025 History and physical note Please see full details from the history and physical exam in the resident's / nurse practitioner's note ~~~~~~~~~~~~~~~~~~~~~~~~~~~~~~~~~~~~~~ ~~~~~~~~~~~~~~~~~~~~~ Attending physician addendum: I independently saw and evaluated the patient. I personally obtained the gordillo and critical portion of the history and physical exam. I reviewed and agree with the documentation below. I personally reviewed patient's labs and imaging studies. My findings agree with the below note except for any details corrected. A complete review of systems was obtained and is negative except as stated in HPI. I have examined the patient at the date below. Problem List[1] I have evaluated the patient at 14:58 - two minutes following his presentation as a direct TICU admission from [place] ED I have evaluated the patient on 02/20/25 HPI: 69 y.o. male on ASA sustained a mechanical (lost balance) ground level fall, + hit head, no LOC. Patient reports history of recent multiple falls. 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 Stroke TIA Bipolar II Depression HTN HLD Gastroparesis DM2 Sleep Apnea Essential tremor - LUE Procedures: none Management / Plan : - C-collar cleared in [facility] ED - q1h neuro checks - hold administration of TXA - more than 3 hours - administer DDAVP once - consult neuro surgery ( Dr Montelongo with neurosurgery has been contacted at 15:19), - restart home Lamictal 200 mg, primidone 50 mg, duloxetine 60 mg, losartan 50 mg - restart Doxepin 10 mg PRN - goal SBP< 150 mmHg - PRN Labetalol and Hydralazine - pain control - elevate head of bed - IVF - NS - Clear liquid diet - MRSA decolonization - start Mupirucine 2% ointment nasal TID - reconcile home medications - Geriatric consult - Palliative care consult - hold initiation of chemo DVT prophylaxis, SCDs only - PT/OT - repeat head CT, C-spine and Maxillofacial CT at 6.00 PM - Cardiopulmonary monitoring and neuro checks in TICU Level of Medical Decision Making: risk of morbidity from additional diagnostic testing or treatment due to TBI [x]High []Moderate []Low Personally Reviewed/Independently interpreted patient's: [x]Epic notes [x]Radiology studies [x]Labs []EKG []Ordering tests []Other Discussed/ With: [x]Patient/Family [x]RN [x]Consultants []SW/TCC []Other I spent total time of >= 75 minutes reviewing previous notes, test results, and face to face with Douglas Callaway discussing the diagnosis and importance of compliance with the treatment plan as well as documenting on the day of the visit. Time was spent, Reviewing medical record including recent tests and results Ordering prescription medications/tests and procedures Communicating results to the patient/family/caregiver Counseling/educating the patient/family/caregiver Documenting clinical information the patient's electronic record Coordination of care for the patient Performing a medical appropriate exam and evaluation Osiel Holguin MD FACS Trauma, Surgical Critical Care, & General Surgery Division of Trauma Department of Surgery [facility] P [1] Patient Active Problem List Diagnosis Hyperglycemia CAD, multiple vessel S/P CABG x 3 Fall [facility] Work Phone: 02-20-2025 Note Please see full deta ils from the history and physical exam in the resident's / nurse practitioner's note ~~~~~~~~~~~~~~~~~~~~~~~~~~~~~~~~~~~~~~ ~~~~~~~~~~~~~~~~~~~~~ Attending physician addendum: I independently saw and evaluated the patient. I personally obtained the gordillo and critical portion of the history and physical exam. I reviewed and agree with the documentation below. I personally reviewed patient's labs and imaging studies. My findings agree with the below note except for any details corrected. A complete review of systems was obtained and is negative except as stated in HPI. I have examined the patient at the date below. Problem List[1] I have evaluated the patient at 14:58 - two minutes following his presentation as a direct TICU admission from [place] ED I have evaluated the patient on 02/20/25 HPI: 69 y.o. male on ASA sustained a mechanical (lost balance) ground level fall, + hit head, no LOC. Patient reports history of recent multiple falls. 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 Stroke TIA Bipolar II Depression HTN HLD Gastroparesis DM2 Sleep Apnea Essential tremor - LUE Procedures: none Management / Plan : - C-collar cleared in [facility] ED - q1h neuro checks - hold administration of TXA - more than 3 hours - administer DDAVP once - consult neuro surgery ( Dr Montelongo with neurosurgery has been contacted at 15:19), - restart home Lamictal 200 mg, primidone 50 mg, duloxetine 60 mg, losartan 50 mg - restart Doxepin 10 mg PRN - goal SBP< 150 mmHg - PRN Labetalol and Hydralazine - pain control - elevate head of bed - IVF - NS - Clear liquid diet - MRSA decolonization - start Mupirucine 2% ointment nasal TID - reconcile home medications - Geriatric consult - Palliative care consult - hold initiation of chemo DVT prophylaxis, SCDs only - PT/OT - repeat head CT, C-spine and Maxillofacial CT at 6.00 PM - Cardiopulmonary monitoring and neuro checks in TICU Level of Medical Decision Making: risk of morbidity from additional diagnostic testing or treatment due to TBI [x]High []Moderate []Low Personally Reviewed/Independently interpreted patient's: [x]Epic notes [x]Radiology studies [x]Labs []EKG []Ordering tests []Other Discussed/ With: [x]Patient/Family [x]RN [x]Consultants []SW/TCC []Other I spent total time of >= 75 minutes reviewing previous notes, test results, and face to face with Douglas Callaway discussing the diagnosis and importance of compliance with the treatment plan as well as documenting on the day of the visit. Time was spent, Reviewing medical record including recent tests and results Ordering prescription medications/tests and procedures Communicating results to the patient/family/caregiver Counseling/educating the patient/family/caregiver Documenting clinical information the patient's electronic record Coordination of care for the patient Performing a medical appropriate exam and evaluation Osiel Holgiun MD FACS Trauma, Surgical Critical Care, & General Surgery Division of Trauma Department of Surgery [facility] P [1] Patient Active Problem List Diagnosis Hyperglycemia CAD, multiple vessel S/P CABG x 3 Fall [facility] 02-20-2025 History and physical note Please see full details from the history and physical exam in the resident's / nurse practitioner's note ~~~~~~~~~~~~~~~~~~~~~~~~~~~~~~~~~~~~~~ ~~~~~~~~~~~~~~~~~~~~~ Attending physician addendum: I independently saw and evaluated the patient. I personally obtained the gordillo and critical portion of the history and physical exam. I reviewed and agree with the documentation below. I personally reviewed patient's labs and imaging studies. My findings agree with the below note except for any details corrected. A complete review of systems was obtained and is negative except as stated in HPI. I have examined the patient at the date below. Problem List[1] I have evaluated the patient at 14:58 - two minutes following his presentation as a direct TICU admission from [place] ED I have evaluated the patient on 02/20/25 HPI: 69 y.o. male on ASA sustained a mechanical (lost balance) ground level fall, + hit head, no LOC. Patient reports history of recent multiple falls. 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 Stroke TIA Bipolar II Depression HTN HLD Gastroparesis DM2 Sleep Apnea Essential tremor - LUE Procedures: none Management / Plan : - C-collar cleared in [facility] ED - q1h neuro checks - hold administration of TXA - more than 3 hours - administer DDAVP once - consult neuro surgery ( Dr Montelongo with neurosurgery has been contacted at 15:19), - restart home Lamictal 200 mg, primidone 50 mg, duloxetine 60 mg, losartan 50 mg - restart Doxepin 10 mg PRN - goal SBP< 150 mmHg - PRN Labetalol and Hydralazine - pain control - elevate head of bed - IVF - NS - Clear liquid diet - MRSA decolonization - start Mupirucine 2% ointment nasal TID - reconcile home medications - Geriatric consult - Palliative care consult - hold initiation of chemo DVT prophylaxis, SCDs only - PT/OT - repeat head CT, C-spine and Maxillofacial CT at 6.00 PM - Cardiopulmonary monitoring and neuro checks in TICU Level of Medical Decision Making: risk of morbidity from additional diagnostic testing or treatment due to TBI [x]High []Moderate []Low Personally Reviewed/Independently interpreted patient's: [x]Epic notes [x]Radiology studies [x]Labs []EKG []Ordering tests []Other Discussed/ With: [x]Patient/Family [x]RN [x]Consultants []SW/TCC []Other I spent total time of >= 75 minutes reviewing previous notes, test results, and face to face with Douglas Callaway discussing the diagnosis and importance of compliance with the treatment plan as well as documenting on the day of the visit. Time was spent, Reviewing medical record including recent tests and results Ordering prescription medications/tests and procedures Communicating results to the patient/family/caregiver Counseling/educating the patient/family/caregiver Documenting clinical information the patient's electronic record Coordination of care for the patient Performing a medical appropriate exam and evaluation Osiel Holguin MD [facility] Trauma, Surgical Critical Care, & General Surgery Division of Trauma Department of Surgery [facility] P [1] Patient Active Problem List Diagnosis Hyperglycemia CAD, multiple vessel S/P CABG x 3 Fall documented in this encounter [facility] 01-18-2024 Note HNO ID: [id number] Author: KARLA CASTRO, PT, DPT Service: ? Author Type: Physical Therapist Type: Progress Notes Filed: 01/19/2024 16:30 Note Text: Episode Visit Count: 18 Therapist That Will Accept/Oversee The Plan Of Care: Kathy Castro Start of Care Date: 08/11/23 Onset Date: 10/07/22 Plan of Care Certification Date: 12/18/23 Next Certification Due Date: 02/13/24 Patient Identified by Name and Date of : Yes REHABILITATION AND SPORTS THERAPY PHYSICAL THERAPY DISCONTINUANCE OF CARE PLAN OF CARE UPDATE: Assessment: Douglas Callaway JR demonstrates significant improvement in ambulation, functional strength, and balance . He has met all goals except SLS for 20 seconds. Patient continues to present with impairments in balance that interfere with stair negotiation without HR. Pt will be discontinued at this time. Goals for Episode of Care: updated 01/18/2024 Patient will ambulate with least restrictive device with modified independence and no LOB.- MET for in the house, using cane but not putting much weight through it. Patient will demonstrate current home exercise program independently. -MET Patient will complete 10 reps on 30 second chair stand test to improve function--progressiong Improve tandem stance on 4 stage balance test to = or >10 seconds to decrease risk for falls.-MET Be able to maintain SLS B for 20 seconds -progressing Increase to being able to perform >1000 feet in 6 months--MET Patient Goals: Improve typing. Fall less. Better strength. MET Planned Interventions, Frequency, and Duration: Discontinue Therapy Services, Patient to be seen for SUBJECTIVE: Pt reports that he has benefitted alot since starting therapy. Very pleased with steadiness wihtout cane now. No falls since last fall 2 months ago. Showering is much better and is able to close both eyes, with grab bar. Stairs are easier than before, but uses HR.. Pain: Pain Pain Level: 0 PROMIS Scales 01/18/2024 01/06/2024 11/18/2023 Higher is Better Phys Func - Score 42 (mild dysfunction) 37 (moderate dysfunction) 43 (mild dysfunction) Phys Func - Percentile 21 10 24 Self-Eff Symptom - Score 49 (Average) 46 (Average) 38 (Low) Self-Eff Symptom - Percentile 46 34 12 T-scores: mean of general population = 50. 5 points is clinically meaningfully difference Percentiles provide an indication of how the patient's score ranks in relation to the general population. Higher percentile rankings indicate better function/quality of life. 50th percentile is the average of the general population and indicates half of respondents had a worse score. OBJECTIVE MEASURES WITH LEVEL OF FUNCTION: Functional Performance Test Results 30 Second Chair Stand Test: 10 reps (with hands on knees) 5 Times Sit to Stand Test : 15 sec 6 Minute Walk Test (ft): 1200 ft (and no cane, CGA with Gb) 6 Minute Walk Test Gait Speed (calculated): 1.02 m/s 4 Stage Balance Test Single leg stance - right (sec): 12 sec Single leg stance - left (sec): 14 sec TREATMENT: Therapeutic Exercise: 1: reassessment with discussion about POC and goals 2: reviewed HEP Skilled Intervention: Patient was educated in proper exercise technique and purpose for exercises. Skilled judgment was used in selection of appropriate interventions. Billing Therapeutic Exercise Treatment Minutes: 38 Total Session Time (minutes): 39 Session Start Time : 5 Session Stop Time : 172 Karla Castro, PT, T [facility] 01-18-2024 History of Present illness Narrative Images from the original note were not included. Episode Visit Count: 18 Therapist That Will Accept/Oversee The Plan Of Care: Kathy Castro Start of Care Date: 08/11/23 Onset Date: 10/07/22 Plan of Care Certification Date: 12/18/23 Next Certification Due Date: 02/13/24 Patient Identified by Name and Date of : Yes REHABILITATION AND SPORTS THERAPY PHYSICAL THERAPY DISCONTINUANCE OF CARE PLAN OF CARE UPDATE: Assessment: Douglas Callaway JR demonstrates significant improvement in ambulation, functional strength, and balance . He has met all goals except SLS for 20 seconds. Patient continues to present with impairments in balance that interfere with stair negotiation without HR. Pt will be discontinued at this time. Goals for Episode of Care: updated 01/18/2024 Patient will ambulate with least restrictive device with modified independence and no LOB.- MET for in the house, using cane but not putting much weight through it. Patient will demonstrate current home exercise program independently. -MET Patient will complete 10 reps on 30 second chair stand test to improve function--progressiong Improve tandem stance on 4 stage balance test to = or >10 seconds to decrease risk for falls.-MET Be able to maintain SLS B for 20 seconds -progressing Increase to being able to perform >1000 feet in 6 months--MET Patient Goals: Improve typing. Fall less. Better strength. MET Planned Interventions, Frequency, and Duration: Discontinue Therapy Services, Patient to be seen for SUBJECTIVE: Pt reports that he has benefitted alot since starting therapy. Very pleased with steadiness wihtout cane now. No falls since last fall 2 months ago. Showering is much better and is able to close both eyes, with grab bar. Stairs are easier than before, but uses HR.. Pain: Pain Pain Level: 0 PROMIS Scales 01/18/2024 01/06/2024 11/18/2023 Higher is Better Phys Func - Score 42 (mild dysfunction) 37 (moderate dysfunction) 43 (mild dysfunction) Phys Func - Percentile 21 10 24 Self-Eff Symptom - Score 49 (Average) 46 (Average) 38 (Low) Self-Eff Symptom - Percentile 46 34 12 T-scores: mean of general population = 50. 5 points is clinically meaningfully difference Percentiles provide an indication of how the patient's score ranks in relation to the general population. Higher percentile rankings indicate better function/quality of life. 50th percentile is the average of the general population and indicates half of respondents had a worse score. OBJECTIVE MEASURES WITH LEVEL OF FUNCTION: Functional Performance Test Results 30 Second Chair Stand Test: 10 reps (with hands on knees) 5 Times Sit to Stand Test : 15 sec 6 Minute Walk Test (ft): 1200 ft (and no cane, CGA with Gb) 6 Minute Walk Test Gait Speed (calculated): 1.02 m/s 4 Stage Balance Test Single leg stance - right (sec): 12 sec Single leg stance - left (sec): 14 sec TREATMENT: Therapeutic Exercise: 1: reassessment with discussion about POC and goals 2: reviewed HEP Skilled Intervention: Patient was educated in proper exercise technique and purpose for exercises. Skilled judgment was used in selection of appropriate interventions. Billing Therapeutic Exercise Treatment Minutes: 38 Total Session Time (minutes): 39 Session Start Time : 1644 Session Stop Time : 172 Karla Castro PT, DPT documented in this encounter [facility] 01-17-2024 Note HNO ID: [id number] Author: KARLA SAUER PA-C Service: ? Author Type: Physician Manager [employer] Type: Progress Notes Filed: 01/17/2024 15:11 Note Text: GASTROENTEROLOGY PROGRESS NOTE OUTPATIENT FOLLOW UP HPI: I saw Douglas Brianna ChaoCesia JR today for a follow up after his colonoscopy. Patient tolerated procedure well. He states that he occasionally still gets nauseated during the day but the Zofran works quickly for him to resolve this. Patient states that he is no longer having diarrhea. He will sometimes have a mixed stool with some formed and some liquid but never all liquid. He is not running to the bathroom after meals, is not having urgent liquid diarrhea at all. He has stopped taking the Creon because he could not afford it and he has not had to resume. PAST MEDICAL HISTORY Diagnosis Date Bipolar II disorder (HCC) CAD (coronary artery disease) 12/2019 CABG x 3 Carotid artery occlusion with cerebral infarction (HCC) pt denies this; CVA was secondary to HTN CVA (cerebral vascular accident) (HCC) 2003 related to untreated HTN; no residual effects Depression Elevated LFTs Gastroparesis POP procedure 06/11/21 GERD (gastroesophageal reflux disease) Hepatitis A 09/2018 Resolved HTN (hypertension) Hyperlipemia Insomnia CABRERA (obstructive sleep apnea) does not currently have a CPAP Osteoporoses Renal insufficiency TIA (transient ischemic attack) prior to CVA in 2004, none since Type 2 diabetes mellitus (HCC) 2018 Iván Case PCP PAST SURGICAL HISTORY Procedure Laterality Date COLONOSCOPY GEN ANES 09/2017 normal per patient COLONOSCOPY SCREENING 12/29/2023 Naima Lee MD CORONARY ART/GRFT ANGIO ARIADNA 12/15/2019 Summa Marroquin ; CABG x 3 EGD 08/2020 at [facility] EGD WITH BIOPSY(S) 05/13/2023 Dr. Fajardo ERCP STENT PLACEMENT BILIARY/PANCREATIC DUCT 09/02/2021 Dr Yarbrough GI TRANSIT AND PRES CARLEY WIRELESS CAPSULE W/INTERP 01/08/2021 Smart Pill-delayed gastric emptying; INCISIONAL BIOPSY SKIN SINGLE LESION biopsy of mass over right eye; benign LAPAROSCOPIC CHOLECYSTECTOMY 09/02/2021 PER ORAL PYLOROMYOTOMY (POP) PROCEDURE (COMP 32881) 06/11/2021 Dr. Bray REMV CATARACT EXTRACAP,INSERT LENS Bilateral 2015 SHOULDER SURGERY HX TONSILLECTOMY HX Social History Tobacco Use Smoking status: Former Types: Cigarettes Smokeless tobacco: Never Tobacco comments: during college Vaping Use Vaping Use: Never used Substance Use Topics Alcohol use: Yes Alcohol/week: 12.0 standard drinks of alcohol Types: 12 Cans of Beer (12oz) per week Drug use: Never FAMILY HISTORY Problem Relation Age of Onset other (pulmonary fibrosis) Mother Colon Cancer Father Current Outpatient Medications Medication Sig lamoTRIgine (LAMICTAL) 200 mg tablet Take 200 mg by mouth two times a day. dapagliflozin propanediol (FARXIGA) 10 mg tablet Take 1 tablet by mouth every afternoon. dapagliflozin propanediol (FARXIGA) 10 mg tablet primidone (MYSOLINE) 50 mg tablet Take 1 tablet by mouth every afternoon. ondansetron (ZOFRAN) 4 mg tablet Take 1 tablet by mouth once daily as needed for nausea/vomiting (for nausea.). losartan (COZAAR) 50 mg tablet Take 1 tablet by mouth every afternoon. aspirin, enteric coated (JAILENE LOW DOSE ASPIRIN) 81 mg EC tablet Take by mouth. doxepin capsule 10 mg Take 10 mg by mouth as needed. alendronate (FOSAMAX) 70 mg tablet Take 70 mg by mouth one time a week. In AM with cup of water on empty stomach. Nothing else by mouth and stay upright for 30 min. cyanocobalamin, vitamin B-12, (VITAMIN B12 ORAL) Take 1 tablet by mouth once daily. cholecalciferol, vitamin D3, (VITAMIN D3 ORAL) Take 1 capsule by mouth once daily. dorzolamide-timolol (COSOPT) 22.3-6.8 mg/mL ophthalmic solution Use 1 Drop in both eyes twice daily. DULoxetine (CYMBALTA) 60 mg capsule Take 60 mg by mouth once daily. metFORMIN (GLUCOPHAGE) 1,000 mg tablet Take 1,000 mg by mouth twice daily with meals. metoprolol tartrate, short acting, (LOPRESSOR) 50 mg tablet Take 50 mg by mouth two times a day. No current facility-administered medications for this visit. Facility-Administered Medications Ordered in Other Visits Medication Dose Route Frequency lidocaine (PF) 10 mg/mL (1 %) 1-2 mg injection (XYLOCAINE) 0.1-0.2 mL INTRADERMAL PRN lactated ringers iv infusion 30 mL/hr INTRAVENOUS CONTINUOUS ALLERGIES No Known Allergies GI SPECIFIC ROS: Difficulty swallowing / foods sticking in throat: No Heartburn: No Hoarseness: No Chronic cough: No Regurgitation: No Chest pain: No Filling up quickly at meals: No Loss of appetite: No Nausea: No Vomiting: No Abdominal pain: No Recent change in bowel movements: No Bloody or black, bowel movements: No Constipation: No Diarrhea: No Loss of control of bowel movements: No Night sweats, fever, chills: No Vomiting blood: No Recent change in weight: No PHYSICAL EXA (more content not included)... [facility] 01-17-2024 History of Present illness Narrative GASTROENTEROLOGY PROGRESS NOTE OUTPATIENT FOLLOW UP HPI: I saw Douglas Callaway JR today for a follow up after his colonoscopy. Patient tolerated procedure well. He states that he occasionally still gets nauseated during the day but the Zofran works quickly for him to resolve this. Patient states that he is no longer having diarrhea. He will sometimes have a mixed stool with some formed and some liquid but never all liquid. He is not running to the bathroom after meals, is not having urgent liquid diarrhea at all. He has stopped taking the Creon because he could not afford it and he has not had to resume. PAST MEDICAL HISTORY Diagnosis Date Bipolar II disorder (HCC) CAD (coronary artery disease) 12/2019 CABG x 3 Carotid artery occlusion with cerebral infarction (HCC) pt denies this; CVA was secondary to HTN CVA (cerebral vascular accident) (HCC) 2003 related to untreated HTN; no residual effects Depression Elevated LFTs Gastroparesis POP procedure 06/11/21 GERD (gastroesophageal reflux disease) Hepatitis A 09/2018 Resolved HTN (hypertension) Hyperlipemia Insomnia CABRERA (obstructive sleep apnea) does not currently have a CPAP Osteoporoses Renal insufficiency TIA (transient ischemic attack) prior to CVA in 2003, none since Type 2 diabetes mellitus (HCC) 2018 Iván Case PCP PAST SURGICAL HISTORY Procedure Laterality Date COLONOSCOPY GEN ANES 09/2017 normal per patient COLONOSCOPY SCREENING 12/29/2023 Naima Lee MD CORONARY ART/GRFT ANGIO S&I 12/15/2019 Summa Marroquin ; CABG x 3 EGD 08/2020 at [facility] EGD WITH BIOPSY(S) 05/13/2023 Dr. Fajardo ERCP STENT PLACEMENT BILIARY/PANCREATIC DUCT 09/02/2021 Dr Yarbrough GI TRANSIT & PRES CARLEY WIRELESS CAPSULE W/INTERP 01/08/2021 Smart Pill-delayed gastric emptying; INCISIONAL BIOPSY SKIN SINGLE LESION biopsy of mass over right eye; benign LAPAROSCOPIC CHOLECYSTECTOMY 09/02/2021 PER ORAL PYLOROMYOTOMY (POP) PROCEDURE (COMP 88492) 06/11/2021 Dr. Bray REMSylvie CATARACT EXTRACAP,INSERT LENS Bilateral 2016 SHOULDER SURGERY HX TONSILLECTOMY HX Social History Tobacco Use Smoking status: Former Types: Cigarettes Smokeless tobacco: Never Tobacco comments: during college Vaping Use Vaping Use: Never used Substance Use Topics Alcohol use: Yes Alcohol/week: 12.0 standard drinks of alcohol Types: 12 Cans of Beer (12oz) per week Drug use: Never FAMILY HISTORY Problem Relation Age of Onset other (pulmonary fibrosis) Mother Colon Cancer Father Current Outpatient Medications Medication Sig lamoTRIgine (LAMICTAL) 200 mg tablet Take 200 mg by mouth two times a day. dapagliflozin propanediol (FARXIGA) 10 mg tablet Take 1 tablet by mouth every afternoon. dapagliflozin propanediol (FARXIGA) 10 mg tablet primidone (MYSOLINE) 50 mg tablet Take 1 tablet by mouth every afternoon. ondansetron (ZOFRAN) 4 mg tablet Take 1 tablet by mouth once daily as needed for nausea/vomiting (for nausea.). losartan (COZAAR) 50 mg tablet Take 1 tablet by mouth every afternoon. aspirin, enteric coated (JAILENE LOW DOSE ASPIRIN) 81 mg EC tablet Take by mouth. doxepin capsule 10 mg Take 10 mg by mouth as needed. alendronate (FOSAMAX) 70 mg tablet Take 70 mg by mouth one time a week. In AM with cup of water on empty stomach. Nothing else by mouth and stay upright for 30 min. cyanocobalamin, vitamin B-12, (VITAMIN B12 ORAL) Take 1 tablet by mouth once daily. cholecalciferol, vitamin D3, (VITAMIN D3 ORAL) Take 1 capsule by mouth once daily. dorzolamide-timolol (COSOPT) 22.3-6.8 mg/mL ophthalmic solution Use 1 Drop in both eyes twice daily. DULoxetine (CYMBALTA) 60 mg capsule Take 60 mg by mouth once daily. metFORMIN (GLUCOPHAGE) 1,000 mg tablet Take 1,000 mg by mouth twice daily with meals. metoprolol tartrate, short acting, (LOPRESSOR) 50 mg tablet Take 50 mg by mouth two times a day. No current facility-administered medications for this visit. Facility-Administered Medications Ordered in Other Visits Medication Dose Route Frequency lidocaine (PF) 10 mg/mL (1 %) 1-2 mg injection (XYLOCAINE) 0.1-0.2 mL INTRADERMAL PRN lactated ringers iv infusion 30 mL/hr INTRAVENOUS CONTINUOUS ALLERGIES No Known Allergies GI SPECIFIC ROS: Difficulty swallowing / foods sticking in throat: No Heartburn: No Hoarseness: No Chronic cough: No Regurgitation: No Chest pain: No Filling up quickly at meals: No Loss of appetite: No Nausea: No Vomiting: No Abdominal pain: No Recent change in bowel movements: No Bloody or black, bowel movements: No Constipation: No Diarrhea: No Loss of control of bowel movements: No Night sweats, fever, chills: No Vomiting blood: No Recent change in weight: No PHYSICAL EXAMINATION: BP 145/77 Pulse 51 GENERAL APPEARANCE: Well appearing, alert, in no acute distress, well-hydrated, well nourished. SKIN: Skin color, texture, turgor normal, no suspicious rashes or lesions. EYES: Anicteric sclera. Extraocular movements are intact. EXTREMITIES: No deformities, edema, skin discoloration, clubbing or cyanosis. NEUROLOGIC: Gait normal. Sensation and strength grossly intact. LABS: Hemoglobin (g/dL) Date Value 09/16/2023 13.1 Hematocrit (%) Date Value 09/16/2023 39.3 WBC (k/uL) Date Value 09/16/2023 9.56 Lab Results Component Value Date TBILI 0.5 09/16/2023 CREAT 1.42 (H) 09/16/2023 INR 1.0 09/16/2023 ALB 4.0 09/16/2023 ALKPHOS 149 (H) 09/16/2023 AST 44 (H) 09/16/2023 ALT 38 09/16/2023 TPROT 6.5 09/16/2023 Impression: - Erythematous mucosa in the cecum. Biopsied. - Two 4 to 10 mm polyps in the ascending colon, removed with a hot snare. Resected and retrieved. - Six 5 to 20 mm polyps in the transverse colon, removed with a hot snare. Resected and retrieved. Clip was placed. - One 9 mm polyp in the rectum, removed with a hot snare. Resected and retrieved. - Diverticulosis in the sigmoid colon. - Non-bleeding internal hemorrhoids. - The examined portion of the ileum was normal. Biopsied. FINAL DIAGNOSIS A. Transverse colon, polyp x 6, biopsy: -Fragments of tubular adenoma B. Small bowel, terminal ileum, biopsy: -Small intestinal mucosa with no diagnostic alteration C. Right colon, biopsy: -Colonic mucosa with no diagnostic alteration -No evidence of microscopic colitis D. Ascending colon, polyp, biopsy: X 2 -Fragments of tubular adenoma E. Left colon, biopsy: -Colonic mucosa with no diagnostic alteration -No evidence of microscopic colitis F. Rectum, polyp, biopsy: -Fragments of tubular adenoma Plan ASSESSMENT AND PLAN: Impression: This is a 68-year-old male who presents to the office today to follow-up on his recent colonoscopy. We reviewed the operative note and pathology report in detail. Discussed that he had benign colon polyps removed, all 9 of which came back as tubular adenomas. Discussed these do have a risk of turning into colon cancer. Discussed that the recommendation is for him to repeat a colonoscopy in 1 year. Discussed that he is no longer on his Creon but is doing fine without it at this point. Discussed that he is just using Zofran as needed. Advised him to continue this and we will follow-up next year after his colonoscopy. Advised him to let us know if any of his symptoms would change or worsen. Patient understands and agrees with this plan. ASSESSMENT/PLAN: 1. Exocrine pancreatic insufficiency - ICD9: 577.8, ICD10: K86.81 (primary diagnosis) 2. Nausea and vomiting, unspecified vomiting type - ICD9: 787.01, ICD10: R11.2 - ONDANSETRON HCL 4 MG TABLET Karla Sauer PA-C I spent a total of 22 minutes on the date of the service which included preparing to see the patient, [id number] patient care, completing clinical documentation, counseling and educating the patient/family/caregiver, and ordering medications, tests, or procedures. documented in this encounter [facility] 01-10-2024 Note HNO ID: [id number] Author: MARÍA OROSCO PTA Service: ? Author Type: Technical Services Manager Type: Progress Notes Filed: 01/10/2024 13:42 Note Text: Episode Visit Count: 17 Therapist That Will Accept/Oversee The Plan Of Care: Kathy Castro Start of Care Date: 08/11/23 Onset Date: 10/07/22 Plan of Care Certification Date: 12/18/23 Next Certification Due Date: 02/13/24 Patient Identified by Name and Date of : Yes REHABILITATION AND SPORTS THERAPY PHYSICAL THERAPY TREATMENT NOTE ASSESSMENT: Douglas Callaway JR tolerated the session with no issues. He demonstrated some unsteadiness with walking up ramp unsupported, tended to veer to the wall. Improving with tandem stance unsupported. The patient will continue to benefit from ongoing skilled physical therapy to progress toward set goals. PLAN FOR NEXT VISIT: Continue with balance, walking on uneven surfaces SUBJECTIVE: Pt reports he did fall 3 weeks ago. Denies pain. Pain: Pain Pain Level: 0 Post Treatment Pain Post Treatment Pain Level: 0 OBJECTIVE MEASURES WITH LEVEL OF FUNCTION: Requires cues for posture and relaxed posture, tends to clenched fists when concentrating on task and during gait. Cues to increase arm swing. TREATMENT: Therapeutic Exercise: 1: Nu st L4. 6 min for AROM 2: 6 step ups 1 rail 5x each leg Skilled Intervention: Patient was educated in proper exercise technique and purpose for exercises. Skilled judgment was used in selection of appropriate interventions. Correct performance of therapeutic exercises was facilitated with verbal and visual cuing. Neuromuscular Re-Education: 1: Tandem stance with and without support 2: lateral step taps no support 10x 3: slow marching with mobility stick 10x - CGA/ min. Skilled Intervention: Skilled judgment used to assess appropriate program for balance and coordination activity. Education in proprioceptive/kinesthetic awareness during dynamic activities. Education and demonstration for posture and positioning for tone management. Ensured patient safety with use of gait belt. Gait Trainin: walking up/down ramp (2nd floor) with and without cane , cues to slow pace and control steps when descending- CGA Skilled Intervention: Patient was provided contact guard assistance during pre-gait/gait training to prevent falls and insure safety. Facilitated proper gait cycle with the use of verbal cues for correction of gait deviations identified in the objective section above. Gait belt utilized during session for safety. Billing Therapeutic Exercise Treatment Minutes: 8 Neuromuscular Re-Education Treatment Minutes: 21 Gait Training Treatment Minutes: 10 Skilled Treatment Time Minutes (timed and untimed codes): 39 Total Session Time (minutes): 39 Session Start Time : 1136 Session Stop Time : 1215 [facility] 01-10-2024 History of Present illness Narrative Episode Visit Count: 17 Therapist That Will Accept/Oversee The Plan Of Care: Kathy Castro Start of Care Date: 08/11/23 Onset Date: 10/07/22 Plan of Care Certification Date: 12/18/23 Next Certification Due Date: 02/13/24 Patient Identified by Name and Date of : Yes REHABILITATION AND SPORTS THERAPY PHYSICAL THERAPY TREATMENT NOTE ASSESSMENT: Douglas Callaway JR tolerated the session with no issues. He demonstrated some unsteadiness with walking up ramp unsupported, tended to veer to the wall. Improving with tandem stance unsupported. The patient will continue to benefit from ongoing skilled physical therapy to progress toward set goals. PLAN FOR NEXT VISIT: Continue with balance, walking on uneven surfaces SUBJECTIVE: Pt reports he did fall 3 weeks ago. Denies pain. Pain: Pain Pain Level: 0 Post Treatment Pain Post Treatment Pain Level: 0 OBJECTIVE MEASURES WITH LEVEL OF FUNCTION: Requires cues for posture and relaxed posture, tends to clenched fists when concentrating on task and during gait. Cues to increase arm swing. TREATMENT: Therapeutic Exercise: 1: Nu st L4. 6 min for AROM 2: 6 step ups 1 rail 5x each leg Skilled Intervention: Patient was educated in proper exercise technique and purpose for exercises. Skilled judgment was used in selection of appropriate interventions. Correct performance of therapeutic exercises was facilitated with verbal and visual cuing. Neuromuscular Re-Education: 1: Tandem stance with and without support 2: lateral step taps no support 10x 3: slow marching with mobility stick 10x - CGA/ min. Skilled Intervention: Skilled judgment used to assess appropriate program for balance and coordination activity. Education in proprioceptive/kinesthetic awareness during dynamic activities. Education and demonstration for posture and positioning for tone management. Ensured patient safety with use of gait belt. Gait Trainin: walking up/down ramp (2nd floor) with and without cane , cues to slow pace and control steps when descending- CGA Skilled Intervention: Patient was provided contact guard assistance during pre-gait/gait training to prevent falls and insure safety. Facilitated proper gait cycle with the use of verbal cues for correction of gait deviations identified in the objective section above. Gait belt utilized during session for safety. Billing Therapeutic Exercise Treatment Minutes: 8 Neuromuscular Re-Education Treatment Minutes: 21 Gait Training Treatment Minutes: 10 Skilled Treatment Time Minutes (timed and untimed codes): 39 Total Session Time (minutes): 39 Session Start Time : 1136 Session Stop Time : 1215 María Orosco PTA documented in this encounter [facility] 01-06-2024 Note HNO ID: [id number] Author: KARLA CASTRO, PT, DPT Service: ? Author Type: Physical Therapist Type: Progress Notes Filed: 01/06/2024 15:42 Note Text: Episode Visit Count: 16 Therapist That Will Accept/Oversee The Plan Of Care: Kathy Castro Start of Care Date: 08/11/23 Onset Date: 10/07/22 Plan of Care Certification Date: 12/18/23 Next Certification Due Date: 02/13/24 Patient Identified by Name and Date of : Yes REHABILITATION AND SPORTS THERAPY PHYSICAL THERAPY TREATMENT NOTE ASSESSMENT: Douglas Callaway JR tolerated the session with no issues. He demonstrated improvements in tandem stance without ELECTROTYPE FINISHER and CGA. Does tend to start speeding up with ambulation distance with 6 minute walk test and when performing step taps right hand does flex at the elbow in a posturing position and needs cues to relax. The patient will continue to benefit from ongoing skilled physical therapy to progress toward set goals. PLAN FOR NEXT VISIT: ramps with and witout cane, tandem stance on uneven surfaces SUBJECTIVE: Pt had 2 falls in a day last wednesday. Fell backwards on the step and sat down (exact same fall the same day for the 2nd one). Pain: Pain Pain Level: 0 OBJECTIVE MEASURES WITH LEVEL OF FUNCTION: Balance Static Standing Balance: Tandem Stance Functional Performance Test Results 6 Minute Walk Test (ft): 990 ft (301 m, wthhout cane and SBA with one LOB (able to self correct)) 6 Minute Walk Test Gait Speed (calculated): 0.84 m/s 4 Stage Balance Test Tandem base of support (sec): 30 sec TREATMENT: Neuromuscular Re-Education: 1: step taps from floor 1 x 30 seconds, progressed to step taps from airex to tall side of practice steps 4 x 30 seconds wihtout hands and CGA with GB 2: tandem walking, backwards walking along counter x 6 reps with CGA 3: tandem stance 3 x 30 seconds B Skilled Intervention: Skilled judgment used to assess appropriate program for balance and coordination activity. Education in proprioceptive/kinesthetic awareness during standing and dynamic activities. Ensured patient safety with use of CGA with GB Gait Trainin: 6 minute walk test without cane 2: 4 minute rest break after 6 minute walk test Skilled Intervention: Patient was provided contact guard assistance during pre-gait/gait training to prevent falls and insure safety. Facilitated proper gait cycle with the use of verbal cues for correction of gait deviations (increase arm swing) Billing Neuromuscular Re-Education Treatment Minutes: 32 Gait Training Treatment Minutes: 10 Total Session Time (minutes): 42 Session Start Time : 1145 Session Stop Time : 1227 Karla Castro, PT, DPT [facility] 01-06-2024 History of Present illness Narrative Episode Visit Count: 16 Therapist That Will Accept/Oversee The Plan Of Care: Kathy Castro Start of Care Date: 08/11/23 Onset Date: 10/07/22 Plan of Care Certification Date: 12/18/23 Next Certification Due Date: 02/13/24 Patient Identified by Name and Date of : Yes REHABILITATION AND SPORTS THERAPY PHYSICAL THERAPY TREATMENT NOTE ASSESSMENT: Douglas Callaway JR tolerated the session with no issues. He demonstrated improvements in tandem stance without ELECTROTYPE FINISHER and CGA. Does tend to start speeding up with ambulation distance with 6 minute walk test and when performing step taps right hand does flex at the elbow in a posturing position and needs cues to relax. The patient will continue to benefit from ongoing skilled physical therapy to progress toward set goals. PLAN FOR NEXT VISIT: ramps with and witout cane, tandem stance on uneven surfaces SUBJECTIVE: Pt had 2 falls in a day last wednesday. Fell backwards on the step and sat down (exact same fall the same day for the 2nd one). Pain: Pain Pain Level: 0 OBJECTIVE MEASURES WITH LEVEL OF FUNCTION: Balance Static Standing Balance: Tandem Stance Functional Performance Test Results 6 Minute Walk Test (ft): 990 ft (301 m, wthhout cane and SBA with one LOB (able to self correct)) 6 Minute Walk Test Gait Speed (calculated): 0.84 m/s 4 Stage Balance Test Tandem base of support (sec): 30 sec TREATMENT: Neuromuscular Re-Education: 1: step taps from floor 1 x 30 seconds, progressed to step taps from airex to tall side of practice steps 4 x 30 seconds wihtout hands and CGA with GB 2: tandem walking, backwards walking along counter x 6 reps with CGA 3: tandem stance 3 x 30 seconds B Skilled Intervention: Skilled judgment used to assess appropriate program for balance and coordination activity. Education in proprioceptive/kinesthetic awareness during standing and dynamic activities. Ensured patient safety with use of CGA with GB Gait Trainin: 6 minute walk test without cane 2: 4 minute rest break after 6 minute walk test Skilled Intervention: Patient was provided contact guard assistance during pre-gait/gait training to prevent falls and insure safety. Facilitated proper gait cycle with the use of verbal cues for correction of gait deviations (increase arm swing) Billing Neuromuscular Re-Education Treatment Minutes: 32 Gait Training Treatment Minutes: 10 Total Session Time (minutes): 42 Session Start Time : 1145 Session Stop Time : 1227 Karla Castro PT, DPT documented in this encounter [facility] 12-29-2023 Note HNO ID: [id number] Author: LAVONNE NAVA RN Service: ? Author Type: Registered Nurse Type: Nursing Progress Note Filed: 12/29/2023 12:49 Note Text: Physician at bedside to speak with patient and SO [facility] 12-29-2023 Note HNO ID: [id number] Author: LAVONNE NAVA RN Service: ? Author Type: Registered Nurse Type: Nursing Progress Note Filed: 12/29/2023 12:35 Note Text: Passing air [facility] 12-29-2023 Nurse Note Physician at bedside to speak with patient and SO [facility] 12-29-2023 Nurse Note Physician at bedside to speak with patient and SO Passing air documented in this encounter [facility] 12-29-2023 Nurse Note Passing air [facility] 12-29-2023 Note Formatting of this n ote might be different from the original. The patient received a copy of Colonoscopy discharge instructions that contain information for how to contact the physician who performed the procedure and when to seek medical care. [facility] 12-29-2023 Miscellaneous Notes The patient received a copy of Colonoscopy discharge instructions that contain information for how to contact the physician who performed the procedure and when to seek medical care. documented in this encounter [facility] 12-29-2023 History and physical note Endoscopy pre-operative H&P H&P completed prior to the start time of the procedure. IMPRESSION AND PLAN HPI: This is a 68 year old male. For colonoscopy for chronic diarrhea. Pertinent Review of Systems: GI: See HPI All other reviewed and negative other than HPI. PAST MEDICAL HISTORY: PAST MEDICAL HISTORY Diagnosis Date Bipolar II disorder (HCC) CAD (coronary artery disease) 12/2019 CABG x 3 Carotid artery occlusion with cerebral infarction (HCC) pt denies this; CVA was secondary to HTN CVA (cerebral vascular accident) (HCC) 2003 related to untreated HTN; no residual effects Depression Elevated LFTs Gastroparesis POP procedure 06/11/21 GERD (gastroesophageal reflux disease) Hepatitis A 09/2018 Resolved HTN (hypertension) Hyperlipemia Insomnia CABRERA (obstructive sleep apnea) does not currently have a CPAP Osteoporoses Renal insufficiency TIA (transient ischemic attack) prior to CVA in 2003, none since Type 2 diabetes mellitus (HCC) 2018 Iván Case PCP PAST SURGICAL HISTORY: PAST SURGICAL HISTORY Procedure Laterality Date COLONOSCOPY GEN ANES 09/2017 normal per patient CORONARY ART/GRFT ANGIO S&I 12/15/2019 Sum[facility] Marroquin ; CABG x 3 EGD 08/2020 at [facility] EGD WITH BIOPSY(S) 05/13/2023 Dr. Fajardo ERCP STENT PLACEMENT BILIARY/PANCREATIC DUCT 09/02/2021 Dr Yarbrough GI TRANSIT & PRES CARLEY WIRELESS CAPSULE W/INTERP 01/08/2021 Smart Pill-delayed gastric emptying; INCISIONAL BIOPSY SKIN SINGLE LESION biopsy of mass over right eye; benign LAPAROSCOPIC CHOLECYSTECTOMY 09/02/2021 PER ORAL PYLOROMYOTOMY (POP) PROCEDURE (COMP 79148) 06/11/2021 Dr. Bray REMV CATARACT EXTRACAP,INSERT LENS Bilateral 2016 SHOULDER SURGERY HX TONSILLECTOMY HX OBJECTIVE: PHYSICAL EXAM: VITALS: There were no vitals taken for this visit. General appearance: A&Ox3 Respiratory: Normal chest expansion. No audible wheezes. CVS: No shortness of breath, no extremity edema. Regular pulse. Plan: OK to proceed with endoscopy. SIGNATURE: Naima Lee MD PATIENT NAME: Douglas Callaway JR [facility] Work Phone: 12-29-2023 History and physical note Endoscopy pre-operative H&P H&P completed prior to the start time of the procedure. IMPRESSION AND PLAN HPI: This is a 68 year old male. For colonoscopy for chronic diarrhea. Pertinent Review of Systems: GI: See HPI All other reviewed and negative other than HPI. PAST MEDICAL HISTORY: PAST MEDICAL HISTORY Diagnosis Date Bipolar II disorder (HCC) CAD (coronary artery disease) 12/2019 CABG x 3 Carotid artery occlusion with cerebral infarction (HCC) pt denies this; CVA was secondary to HTN CVA (cerebral vascular accident) (HCC) 2003 related to untreated HTN; no residual effects Depression Elevated LFTs Gastroparesis POP procedure 06/11/21 GERD (gastroesophageal reflux disease) Hepatitis A 09/2018 Resolved HTN (hypertension) Hyperlipemia Insomnia CABRERA (obstructive sleep apnea) does not currently have a CPAP Osteoporoses Renal insufficiency TIA (transient ischemic attack) prior to CVA in 2003, none since Type 2 diabetes mellitus (HCC) 2018 Iván Case PCP PAST SURGICAL HISTORY: PAST SURGICAL HISTORY Procedure Laterality Date COLONOSCOPY GEN ANES 09/2017 normal per patient CORONARY ART/GRFT ANGIO S&I 12/15/2019 Sum[facility] Marroquin ; CABG x 3 EGD 08/2020 at [facility] EGD WITH BIOPSY(S) 05/13/2023 Dr. Fajardo ERCP STENT PLACEMENT BILIARY/PANCREATIC DUCT 09/02/2021 Dr Yarbrough GI TRANSIT & PRES CARLEY WIRELESS CAPSULE W/INTERP 01/08/2021 Smart Pill-delayed gastric emptying; INCISIONAL BIOPSY SKIN SINGLE LESION biopsy of mass over right eye; benign LAPAROSCOPIC CHOLECYSTECTOMY 09/02/2021 PER ORAL PYLOROMYOTOMY (POP) PROCEDURE (COMP 05297) 06/11/2021 Dr. Bray REMV CATARACT EXTRACAP,INSERT LENS Bilateral 2016 SHOULDER SURGERY HX TONSILLECTOMY HX OBJECTIVE: PHYSICAL EXAM: VITALS: There were no vitals taken for this visit. General appearance: A&Ox3 Respiratory: Normal chest expansion. No audible wheezes. CVS: No shortness of breath, no extremity edema. Regular pulse. Plan: OK to proceed with endoscopy. SIGNATURE: Naima Lee MD PATIENT NAME: Douglas Callaway JR documented in this encounter [facility] 12-15-2023 Note HNO ID: [id number] Author: ELBA SAMANIEGO, PT, DPT Service: ? Author Type: Physical Therapist Type: Progress Notes Filed: 12/16/2023 10:20 Note Text: Episode Visit Count: 15 Therapist That Will Accept/Oversee The Plan Of Care: Kathy Castro Start of Care Date: 08/11/23 Onset Date: 10/07/22 Plan of Care Certification Date: 12/18/23 Next Certification Due Date: 02/13/24 Patient Identified by Name and Date of : Yes REHABILITATION AND SPORTS THERAPY PHYSICAL THERAPY PROGRESS REPORT PLAN OF CARE UPDATE: Assessment: Douglas Callaway JR demonstrates improvements in rising from a chair, standing, and walking. He has progressed toward goals. Patient continues to present with impairments in balance, gait, independence in exercise, overall function, posture, and strength that interfere with stair negotiation, walking, standing . Current prognosis is Good due to: positive past response to therapy Fair due to: clinical presentation . He will benefit from continued skilled therapy services to meet the updated goals for this plan of care as noted below. Goals for Episode of Care: updated 12/15/2023 Patient will ambulate with least restrictive device with modified independence and no LOB.- progressing well in the house, still uses cane outside Patient will demonstrate current home exercise program independently. -progressing Patient will complete 10 reps on 30 second chair stand test to improve function--progressiong Improve tandem stance on 4 stage balance test to = or >10 seconds to decrease risk for falls.-MET Be able to maintain SLS B for 20 seconds -progressing increase to being able to perform >1000 feet in 6 months--continue to assess Patient Goals: Improve typing. Fall less. Better strength. MET Planned Interventions, Frequency, and Duration: 1x/week, 8 weeks Total Number of Visits Planned: 8 Patient to be seen for Therapeutic exercise (68554), Neuromuscular re-education (46501), Manual therapy (32794), Therapeutic activities (48295), Self-custodial management (96348), Gait Training (37615), Patient/Family/Caregiver Education PLAN FOR NEXT VISIT: 6 min walk test; Check if promis due SUBJECTIVE: In last month feels has made progress. Can now do steps reciprocally. Was able to sit down on a curb and off by himself for eclipse. Easier with some ex during PT. Turning maybe a bit easier. Generally compliant with HEP. Feels like however L leg stability is worse in last 4 weeks.. Functional Limitations: stair negotiation, walking, standing Pain: Pain Pain Level: 0 Post Treatment Pain Post Treatment Pain Level: 0 PROMIS Scales 11/18/2023 10/21/2023 09/16/2023 Higher is Better Phys Func - Score 43 (mild dysfunction) 35 (moderate dysfunction) 29 (severe dysfunction) Phys Func - Percentile 24 7 2 Self-Eff Symptom - Score 38 (Low) 47 (Average) 45 (Average) Self-Eff Symptom - Percentile 12 38 31 T-scores: mean of general population = 50. 5 points is clinically meaningfully difference Percentiles provide an indication of how the patient's score ranks in relation to the general population. Higher percentile rankings indicate better function/quality of life. 50th percentile is the average of the general population and indicates half of respondents had a worse score. OBJECTIVE MEASURES WITH LEVEL OF FUNCTION: Posture / Alignment Posture: Forward head, Increased thoracic kyphosis, Rounded shoulders Movement Description Movement Impairment(s): Coordination Coordination: Finger to nose Finger to Nose Impairment: Right Mobility Sit To Stand: Supervision Stand To Sit: Modified Independent Stand To Sit Comments: UE not needed Gait Gait: Stand By Assistance Gait Device: Cane, None Gait Deviations: General Deviations General Deviations/Observations: Marion decreased, Wide base of support, Step length decreased, Arm swing decreased, Lateral sway increased Gait Observation: Improving INES Functional Performance Test Results 30 Second Chair Stand Test: 7 reps 5 Times Sit to Stand Test : 22.11 sec Timed Up and Go (sec): 13.2 sec Timed Up and Go - Condition 2 (sec) : 17.6 (cane) Timed Up and Go Cognitive (sec): 14.93 sec 4 Stage Balance Test Semi-tandem base of support (sec): 30 sec Tandem base of support (sec): 30 sec Single leg stance - right (sec): 11 sec Single leg stance - left (sec): 9 sec CTSIB Eyes closed, firm surface Trial 1 (sec): 30 Eyes closed, firm surface Trial 1 (sway): Mild TREATMENT: Therapeutic Exercise: 1: Reassessment completed 2: Reviewed HEP Skilled Intervention: Proper technique AND skills to assess ROM AND strength to properly adjust plan of care. Education as above Neuromuscular Re-Education: 1: Outcomes completed Skilled Intervention: Proper implementation of objective outcomes with explanation of findings/deficits. Proper patient guarding to prevent falls/increase patient safety. Billing Therapeutic (more content not included)... [facility] 12-15-2023 History of Present illness Narrative Images from the original note were not included. Episode Visit Count: 15 Therapist That Will Accept/Oversee The Plan Of Care: Kathy Castro Start of Care Date: 08/11/23 Onset Date: 10/07/22 Plan of Care Certification Date: 12/18/23 Next Certification Due Date: 02/13/24 Patient Identified by Name and Date of : Yes REHABILITATION AND SPORTS THERAPY PHYSICAL THERAPY PROGRESS REPORT PLAN OF CARE UPDATE: Assessment: Douglas Callaway JR demonstrates improvements in rising from a chair, standing, and walking. He has progressed toward goals. Patient continues to present with impairments in balance, gait, independence in exercise, overall function, posture, and strength that interfere with stair negotiation, walking, standing . Current prognosis is Good due to: positive past response to therapy Fair due to: clinical presentation . He will benefit from continued skilled therapy services to meet the updated goals for this plan of care as noted below. Goals for Episode of Care: updated 12/15/2023 Patient will ambulate with least restrictive device with modified independence and no LOB.- progressing well in the house, still uses cane outside Patient will demonstrate current home exercise program independently. -progressing Patient will complete 10 reps on 30 second chair stand test to improve function--progressiong Improve tandem stance on 4 stage balance test to = or >10 seconds to decrease risk for falls.-MET Be able to maintain SLS B for 20 seconds -progressing increase to being able to perform >1000 feet in 6 months--continue to assess Patient Goals: Improve typing. Fall less. Better strength. MET Planned Interventions, Frequency, and Duration: 1x/week, 8 weeks Total Number of Visits Planned: 8 Patient to be seen for Therapeutic exercise (61359), Neuromuscular re-education (28228), Manual therapy (85306), Therapeutic activities (97725), Self-custodial management (00513), Gait Training (85913), Patient/Family/Caregiver Education PLAN FOR NEXT VISIT: 6 min walk test; Check if promis due SUBJECTIVE: In last month feels has made progress. Can now do steps reciprocally. Was able to sit down on a curb and off by himself for eclipse. Easier with some ex during PT. Turning maybe a bit easier. Generally compliant with HEP. Feels like however L leg stability is worse in last 4 weeks.. Functional Limitations: stair negotiation, walking, standing Pain: Pain Pain Level: 0 Post Treatment Pain Post Treatment Pain Level: 0 PROMIS Scales 11/18/2023 10/21/2023 09/16/2023 Higher is Better Phys Func - Score 43 (mild dysfunction) 35 (moderate dysfunction) 29 (severe dysfunction) Phys Func - Percentile 24 7 2 Self-Eff Symptom - Score 38 (Low) 47 (Average) 45 (Average) Self-Eff Symptom - Percentile 12 38 31 T-scores: mean of general population = 50. 5 points is clinically meaningfully difference Percentiles provide an indication of how the patient's score ranks in relation to the general population. Higher percentile rankings indicate better function/quality of life. 50th percentile is the average of the general population and indicates half of respondents had a worse score. OBJECTIVE MEASURES WITH LEVEL OF FUNCTION: Posture / Alignment Posture: Forward head, Increased thoracic kyphosis, Rounded shoulders Movement Description Movement Impairment(s): Coordination Coordination: Finger to nose Finger to Nose Impairment: Right Mobility Sit To Stand: Supervision Stand To Sit: Modified Independent Stand To Sit Comments: UE not needed Gait Gait: Stand By Assistance Gait Device: Cane, None Gait Deviations: General Deviations General Deviations/Observations: Marion decreased, Wide base of support, Step length decreased, Arm swing decreased, Lateral sway increased Gait Observation: Improving INES Functional Performance Test Results 30 Second Chair Stand Test: 7 reps 5 Times Sit to Stand Test : 22.11 sec Timed Up and Go (sec): 13.2 sec Timed Up and Go - Condition 2 (sec) : 17.6 (cane) Timed Up and Go Cognitive (sec): 14.93 sec 4 Stage Balance Test Semi-tandem base of support (sec): 30 sec Tandem base of support (sec): 30 sec Single leg stance - right (sec): 11 sec Single leg stance - left (sec): 9 sec CTSIB Eyes closed, firm surface Trial 1 (sec): 30 Eyes closed, firm surface Trial 1 (sway): Mild TREATMENT: Therapeutic Exercise: 1: Reassessment completed 2: Reviewed HEP Skilled Intervention: Proper technique & skills to assess ROM & strength to properly adjust plan of care. Education as above Neuromuscular Re-Education: 1: Outcomes completed Skilled Intervention: Proper implementation of objective outcomes with explanation of findings/deficits. Proper patient guarding to prevent falls/increase patient safety. Billing Therapeutic Exercise Treatment Minutes: 35 Neuromuscular Re-Education Treatment Minutes: 10 Skilled Treatment Time Minutes (timed and untimed codes): 45 Total Session Time (minutes): 45 Session Start Time : 1300 Session Stop Time : 1345 Elba Samaniego PT DPT documented in this encounter [facility] 12-09-2023 Note HNO ID: [id number] Author: MARÍA OROSCO PTA Service: ? Author Type: Technical Services Manager Type: Progress Notes Filed: 12/09/2023 14:25 Note Text: Episode Visit Count: 14 Therapist That Will Accept/Oversee The Plan Of Care: Elba Samaniego or Kathy Castro Start of Care Date: 08/11/23 Onset Date: 10/07/22 Plan of Care Certification Date: 11/07/23 Next Certification Due Date: 12/18/23 Patient Identified by Name and Date of : Yes REHABILITATION AND SPORTS THERAPY PHYSICAL THERAPY TREATMENT NOTE ASSESSMENT: Douglas Callaway tolerated the session with no issues. He demonstrated difficulty with stepping forward with left and balancing on right. He tolerated walking on treadmill well today. Discussed relaxed posture with walking, for he tends to tense up. Demonstrated well with cues today.The patient will continue to benefit from ongoing skilled physical therapy for reassessment by supervising therapist. PLAN FOR NEXT VISIT: Balance, LE strength SUBJECTIVE: Pt reports has not had a very good week, having trouble on stairs and just general walking. No falls. Pain: Pain Pain Level: 0 Post Treatment Pain Post Treatment Pain Level: 0 OBJECTIVE MEASURES WITH LEVEL OF FUNCTION: Gait: cane with tensed up right arm, short step length, cues to relax arm and shoulders. TREATMENT: Therapeutic Exercise: 1: TM 1.2-1.4mph 6 min for increased endurance 2: 6 step ups w/ 1 rail 10x 3: 6 side step ups 5x each 1 rail Skilled Intervention: Patient was educated in proper exercise technique and purpose for exercises. Skilled judgment was used in selection of appropriate interventions. Correct performance of therapeutic exercises was facilitated with verbal and visual cuing. Neuromuscular Re-Education: 1: standing big step fwd 10x each no support 2: Tandem stance B w cane support- challenging 3: rhomberg/staggered B stance reaching in various directions to targets on table maintaining foot position. 15x total Skilled Intervention: Skilled judgment used to assess appropriate program for balance and coordination activity. Education and demonstration for posture and positioning for tone management. Gait Trainin: walking without cane cues for arm swing and relaxed posture 2: walking with cues for stopping and turning while maintaining balance 250ft. 3: walking with ball toss to self 75 ft- close SBA Skilled Intervention: Patient was provided contact guard assistance during pre-gait/gait training to prevent falls and insure safety. Education provided to patient regarding the proper sequence for walking with arm swing and relaxed posture. 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 and working on turning in 8 steps - 1 x daily - 7 x weekly - 3 sets - 10 reps - Sit to Stand - 1 x daily - 7 x weekly - 3 sets - 10 reps - Supine Bridge - 1 x daily - x weekly - 2 sets - 10 reps - Sidelying Hip Abduction - 1 x daily - 7 x weekly - 3 sets - 10 reps - standing hip abduction with looking up and holding on to counter - 1 x daily - 7 x weekly - 3 sets - 10 reps - Mini Squat with Counter Support - 1 x daily - 7 x weekly - 1-2 sets - 10 reps - Tandem Stance with Support - 1 x daily - x weekly - 2 sets - 3 reps - Single Leg Stance with Support - 1 x daily - x weekly - 2 sets - 3 reps Episode Visit Count: 14 Therapist That Will Accept/Oversee The Plan Of Care: Elba Samaniego or Kathy Castro Start of Care Date: 08/11/23 Onset Date: 10/07/22 Plan of Care Certification Date: 11/07/23 Next Certification Due Date: 12/18/23 Patient Identified by Name and Date of : Yes REHABILITATION AND SPORTS THERAPY PHYSICAL THERAPY TREATMENT NOTE ASSESSMENT: Douglas Callaway JR tolerated the session with no issues. He demonstrated difficulty with stepping forward with left and balancing on right. He tolerated walking on treadmill well today. Discussed relaxed posture with walking, for he tends to tense up. Demonstrated well with cues today.The patient will continue to benefit from ongoing skilled physical therapy for reassessment by supervising therapist. PLAN FOR NEXT VISIT: Balance, LE strength SUBJECTIVE: Pt reports has not had a very good week, having trouble on stairs and just general walking. No falls. Pain: Pain Pain Level: 0 Post Treatment Pain Post Treatment Pain Level: 0 OBJECTIVE MEASURES WITH LEVEL OF FUNCTION: Gait: cane with tensed up right arm, short step length, cues to relax arm and shoulders. TREATMENT: Therapeutic Exercise: 1: TM 1.2-1.4mph 6 min for increased endurance 2: 6 step ups w/ 1 rail 10x 3: 6 side step ups 5x each 1 rail Skilled Intervention: Patient was educated in proper exercise technique and purpose for exercises. Skilled judgment was used in selection of appropriate interventions. Correct performance of therapeutic exercises was facilitated with verbal and visual cuing. Neuromuscular Re-Education: 1: standing big step fwd 10x each no support 2: Tandem stance B w cane support- challenging 3: rhomberg/staggered B stance reaching in various directions to targets on table maintaining foot position. 15x total Skilled Intervention: Skilled judgment used to assess appropriate program for balance and coordination activity. Education and demonstration for posture and positioning for tone management. Gait Trainin: walking without cane cues for arm swing and relaxed posture 2: walking with cues for stopping and turning while maintaining balance 250ft. 3: walking with ball toss to self 75 ft- close SBA Skilled Intervention: Patient was provided contact guard assistance during pre-gait/gait training to prevent falls and insure safety. Education provided to patient regarding the proper sequence for walking with arm swing and relaxed posture. Billing Therapeutic Exercise Treatment Minutes: 14 Neuromuscular Re-Education Treatment Minutes: 15 Gait Training Treatment Minutes: 15 Skilled Treatment Time Minutes (timed and untimed codes): 44 Total Session Time (minutes): 44 Session Start Time : 1319 Session Stop Time : 1403 Mar[facility] Orosco PTA documented in this encounter [facility] 12-02-2023 Note HNO ID: [id number] Author: ANNE MARIE TOMPKINS RT(Jesús) Service: ? Author Type: Technologist Type: Progress Notes Filed: 12/02/2023 13:40 Note Text: Radiology Service Progress Note PATIENT NAME: Douglas Callaway JR DATE OF SERVICE: December 02, 2023 TIME: 1:39 PM PATIENT IDENTITY VERIFICATION COMPLETED USING TWO (2) IDENTIFIERS: Name and Date of confirmed by patient verbally. FALL SCREENING: Has the patient had 2 falls in the last year or 1 fall with injury or currently using an Ambulatory Assistive Device (Walker, Cane, Wheelchair, Crutches, etc.)? Yes, Patient High Risk for Falls What interventions were put in place to prevent falls during this visit? Instructed Patient to Call for Help if Needed, Offered Assistance with Transfers/Clothing, Instructed Patient to Remain Seated (Not on Exam Table) Until Exam, and Increased Observations by Caregivers PATIENT GENDER DATA: Male PATIENT RELEVANT IMPLANT DATA REVIEWED: Yes PATIENT PRESENTS WITH AN IMPLANTABLE OR ATTACHED CRAP GAME BOX PERSON: No RADIOLOGY DEPARTMENT: MR; Exam(s) Completed: Head: Routine Brain PERIPHERAL IV DATA: Not applicable SIGNED BY: RT Odalys(Jesús) December 02, 2023 1:39 PM [facility] 11-29-2023 Note HNO ID: [id number] Author: MARÍA OROSCO PTA Service: ? Author Type: Technical Services Manager Type: Progress Notes Filed: 11/29/2023 13:49 Note Text: Episode Visit Count: 13 Therapist That Will Accept/Oversee The Plan Of Care: Elba Samaniego or Kathy Castro Start of Care Date: 08/11/23 Onset Date: 10/07/22 Plan of Care Certification Date: 11/07/23 Next Certification Due Date: 12/18/23 Patient Identified by Name and Date of : Yes REHABILITATION AND SPORTS THERAPY PHYSICAL THERAPY TREATMENT NOTE ASSESSMENT: Douglas Callaway JR tolerated the session with no issues. He demonstrated improvements in slow march, able to single leg stance for 3 sec with stick support. The patient will continue to benefit from ongoing skilled physical therapy to progress toward set goals. PLAN FOR NEXT VISIT: Balance, LE strength SUBJECTIVE: Pt feeling well, only concern is left leg not keeping up with his right. Having a good week. Pain: Pain Pain Level: 0 Post Treatment Pain Post Treatment Pain Level: 0 OBJECTIVE MEASURES WITH LEVEL OF FUNCTION: Tolerated turns well today around cones, no loss of balance. Standing on left more challenging vs right with mobility stick. TREATMENT: Therapeutic Exercise: 1: Nu step L6. 6 min for AROm 2: heel raises 15x - mobility stick for support 15x 3: squats 10x mobility stick for support 4: 2# SLR 12x 5: 2# sidelying hip abduction 10x Skilled Intervention: Patient was educated in proper exercise technique and purpose for exercises. Skilled judgment was used in selection of appropriate interventions. Correct performance of therapeutic exercises was facilitated with verbal and visual cuing. Neuromuscular Re-Education: 1: side step over yellow foam roll 5x each side 2: fwd/bkwd step over yellow foam 5x each side no supprt 3: 3 sec hold march mobility stick 10x each 4: fwd/side step up 4 step 5x each Skilled Intervention: Skilled judgment used to assess appropriate program for balance and coordination activity. Education and demonstration for posture and positioning for tone management. Gait Trainin: 2 flight of stairs 1 rail reciprocal pattern 1 rail SBA 2: walking around various cones and back to start calling out colors towards right/ left side - no loss of balance Skilled Intervention: Patient was provided stand by assist during pre-gait/gait training to prevent falls and insure safety. Education provided to patient regarding the proper sequence for stair negotiation. Billing Therapeutic Exercise Treatment Minutes: 18 Neuromuscular Re-Education Treatment Minutes: 20 Gait Training Treatment Minutes: 10 Skilled Treatment Time Minutes (timed and untimed codes): 48 Total Session Time (minutes): 48 Session Start Time : 1256 Session Stop Time : 1344 [facility] 11-29-2023 History of Present illness Narrative Episode Visit Count: 13 Therapist That Will Accept/Oversee The Plan Of Care: Elba Samaniego or Kathy Castro Start of Care Date: 08/11/23 Onset Date: 10/07/22 Plan of Care Certification Date: 11/07/23 Next Certification Due Date: 12/18/23 Patient Identified by Name and Date of : Yes REHABILITATION AND SPORTS THERAPY PHYSICAL THERAPY TREATMENT NOTE ASSESSMENT: Douglas Callaway JR tolerated the session with no issues. He demonstrated improvements in slow march, able to single leg stance for 3 sec with stick support. The patient will continue to benefit from ongoing skilled physical therapy to progress toward set goals. PLAN FOR NEXT VISIT: Balance, LE strength SUBJECTIVE: Pt feeling well, only concern is left leg not keeping up with his right. Having a good week. Pain: Pain Pain Level: 0 Post Treatment Pain Post Treatment Pain Level: 0 OBJECTIVE MEASURES WITH LEVEL OF FUNCTION: Tolerated turns well today around cones, no loss of balance. Standing on left more challenging vs right with mobility stick. TREATMENT: Therapeutic Exercise: 1: Nu step L6. 6 min for AROm 2: heel raises 15x - mobility stick for support 15x 3: squats 10x mobility stick for support 4: 2# SLR 12x 5: 2# sidelying hip abduction 10x Skilled Intervention: Patient was educated in proper exercise technique and purpose for exercises. Skilled judgment was used in selection of appropriate interventions. Correct performance of therapeutic exercises was facilitated with verbal and visual cuing. Neuromuscular Re-Education: 1: side step over yellow foam roll 5x each side 2: fwd/bkwd step over yellow foam 5x each side no supprt 3: 3 sec hold march mobility stick 10x each 4: fwd/side step up 4 step 5x each Skilled Intervention: Skilled judgment used to assess appropriate program for balance and coordination activity. Education and demonstration for posture and positioning for tone management. Gait Trainin: 2 flight of stairs 1 rail reciprocal pattern 1 rail SBA 2: walking around various cones and back to start calling out colors towards right/ left side - no loss of balance Skilled Intervention: Patient was provided stand by assist during pre-gait/gait training to prevent falls and insure safety. Education provided to patient regarding the proper sequence for stair negotiation. Billing Therapeutic Exercise Treatment Minutes: 18 Neuromuscular Re-Education Treatment Minutes: 20 Gait Training Treatment Minutes: 10 Skilled Treatment Time Minutes (timed and untimed codes): 48 Total Session Time (minutes): 48 Session Start Time : 1256 Session Stop Time : 1344 Mar[facility] Orosco PTA documented in this encounter [facility] 11-24-2023 Note HNO ID: [id number] Author: MAÍRA OROSCO PTA Service: ? Author Type: Technical Services Manager Type: Progress Notes Filed: 11/24/2023 18:50 Note Text: Episode Visit Count: 12 Therapist That Will Accept/Oversee The Plan Of Care: Elba Samaniego or Kathy Castro Start of Care Date: 08/11/23 Onset Date: 10/07/22 Plan of Care Certification Date: 11/07/23 Next Certification Due Date: 12/18/23 Patient Identified by Name and Date of : Yes REHABILITATION AND SPORTS THERAPY PHYSICAL THERAPY TREATMENT NOTE ASSESSMENT: Douglas Callaway JR tolerated the session with no issues. Session shortened due to patient arriving almost 30 min late. He demonstrated difficulty with weight shifting on left lower extremity on fitter board. The patient will continue to benefit from ongoing skilled physical therapy to progress toward set goals. PLAN FOR NEXT VISIT: Work on stair safety, balance. LE strengthening, turning SUBJECTIVE: No falls, better at catching self better on close calls. Recieved a LOOP recorder on wednesday to assess HR. Pain: Pain Pain Level: 0 Post Treatment Pain Post Treatment Pain Level: 0 OBJECTIVE MEASURES WITH LEVEL OF FUNCTION: Decreased coordination and balance with walking marches. L lower extremity weakness noted with weight shifting on fitter board. TREATMENT: Therapeutic Exercise: 1: Nu step L4 5 min for AROM 2: heel raises/squats 10x each B support Skilled Intervention: Patient was educated in proper exercise technique and purpose for exercises. Skilled judgment was used in selection of appropriate interventions. Correct performance of therapeutic exercises was facilitated with verbal cuing. Neuromuscular Re-Education: 1: 6 alt step taps no support 10x 2: 1 hand support alt straight leg kicks 10x 3: 1 hand support alt hip abd 10x 4: Fitter board weight shifting lateral/ fwd 10x each no support- CGA 5: side stepping 20ft x 3 6: slow march raising opp arm with opp leg Skilled Intervention: Skilled judgment used to assess appropriate program for balance and coordination activity. Education and demonstration for posture and positioning for tone management. Billing Therapeutic Exercise Treatment Minutes: 8 Neuromuscular Re-Education Treatment Minutes: 16 Skilled Treatment Time Minutes (timed and untimed codes): 24 Total Session Time (minutes): 24 Session Start Time : 1727 Session Stop Time : 175 [facility] 11-24-2023 History of Present illness Narrative Episode Visit Count: 12 Therapist That Will Accept/Oversee The Plan Of Care: Elba Samaniego or Kathy Castro Start of Care Date: 08/11/23 Onset Date: 10/07/22 Plan of Care Certification Date: 11/07/23 Next Certification Due Date: 12/18/23 Patient Identified by Name and Date of : Yes REHABILITATION AND SPORTS THERAPY PHYSICAL THERAPY TREATMENT NOTE ASSESSMENT: Douglas Brianna Callaway JR tolerated the session with no issues. Session shortened due to patient arriving almost 30 min late. He demonstrated difficulty with weight shifting on left lower extremity on fitter board. The patient will continue to benefit from ongoing skilled physical therapy to progress toward set goals. PLAN FOR NEXT VISIT: Work on stair safety, balance. LE strengthening, turning SUBJECTIVE: No falls, better at catching self better on close calls. Recieved a LOOP recorder on wednesday to assess HR. Pain: Pain Pain Level: 0 Post Treatment Pain Post Treatment Pain Level: 0 OBJECTIVE MEASURES WITH LEVEL OF FUNCTION: Decreased coordination and balance with walking marches. L lower extremity weakness noted with weight shifting on fitter board. TREATMENT: Therapeutic Exercise: 1: Nu step L4 5 min for AROM 2: heel raises/squats 10x each B support Skilled Intervention: Patient was educated in proper exercise technique and purpose for exercises. Skilled judgment was used in selection of appropriate interventions. Correct performance of therapeutic exercises was facilitated with verbal cuing. Neuromuscular Re-Education: 1: 6 alt step taps no support 10x 2: 1 hand support alt straight leg kicks 10x 3: 1 hand support alt hip abd 10x 4: Fitter board weight shifting lateral/ fwd 10x each no support- CGA 5: side stepping 20ft x 3 6: slow march raising opp arm with opp leg Skilled Intervention: Skilled judgment used to assess appropriate program for balance and coordination activity. Education and demonstration for posture and positioning for tone management. Billing Therapeutic Exercise Treatment Minutes: 8 Neuromuscular Re-Education Treatment Minutes: 16 Skilled Treatment Time Minutes (timed and untimed codes): 24 Total Session Time (minutes): 24 Session Start Time : 1727 Session Stop Time : 1751 Mar[facility] Orosco PTA documented in this encounter [facility] 11-18-2023 Note HNO ID: [id number] Author: KARLA CASTRO PT, DPT Service: ? Author Type: Physical Therapist Type: Progress Notes Filed: 11/18/2023 15:53 Note Text: Episode Visit Count: 11 Therapist That Will Accept/Oversee The Plan Of Care: Elba Samaniego or Kathy Castro Start of Care Date: 08/11/23 Onset Date: 10/07/22 Plan of Care Certification Date: 11/07/23 Next Certification Due Date: 12/18/23 Patient Identified by Name and Date of : Yes REHABILITATION AND SPORTS THERAPY PHYSICAL THERAPY PROGRESS REPORT PLAN OF CARE UPDATE: Assessment: Douglas Callaway JR demonstrates minimal improvement in ambulation, however today he is not having a good day. He has met 1 goals and progressed toward other goals. Patient continues to present with impairments in balance, gait, overall function, and posture that interfere with stair negotiation (EC in the shower, better ability to dress (less frequent difficulty)) . Current prognosis is fair secondary to clinical presentation, however does have potential to improve . Worked on turning today and pt does require increased time to process which way to turn. He also needs cues to relax right arm with ambulation. He will benefit from continued skilled therapy services to meet the updated goals for this plan of care as noted below. Goals for Episode of Care: updated 11/18/2023 Patient will perform sit to stand transfers with modified independence without hands.-met Patient will ambulate with least restrictive device with modified independence and no LOB.- progressing well in the house, still uses cane outside Patient will demonstrate current home exercise program independently. -progressing Patient will complete 10 reps on 30 second chair stand test to decrease risk of falls.- progressing (able to perform 2 more) Improve score on Timed Up and Go to by 3 sec to demonstrate MCID.- met Improve tandem stance on 4 stage balance test to = or >10 seconds to decrease risk for falls.-progressing well, almost met Verbalize decrease in fall frequency (from 8 in 1 month)- met Be able to maintain SLS B for 20 seconds -progressing 6 minute walk test -performed test, increase to being able to perform >1000 feet in 6 months Patient Goals: Improve typing. Fall less. Better strength. -met for typing, Since starting therapy has had 2 falls since starting therapy Planned Interventions, Frequency, and Duration: 1x/week, 4 weeks Total Number of Visits Planned: 4 Patient to be seen for Therapeutic exercise (21048), Neuromuscular re-education (14191), Manual therapy (81894), Therapeutic activities (56779), Self-custodial management (52335), Gait Training (91786), Patient/Family/Caregiver Education PLAN FOR NEXT VISIT: Work on stair safety, balance. LE strengthening, turning SUBJECTIVE: No falls, but pt reports that he has not been doing well for the past couple days.. Functional Limitations: stair negotiation (EC in the shower, better ability to dress (less frequent difficulty)) Pain: Pain Pain Level: 0 PROMIS Scales 11/18/2023 10/21/2023 09/16/2023 Higher is Better Phys Func - Score 43 (mild dysfunction) 35 (moderate dysfunction) 29 (severe dysfunction) Phys Func - Percentile 24 7 2 Self-Eff Symptom - Score 38 (Low) 47 (Average) 45 (Average) Self-Eff Symptom - Percentile 12 38 31 T-scores: mean of general population = 50. 5 points is clinically meaningfully difference Percentiles provide an indication of how the patient's score ranks in relation to the general population. Higher percentile rankings indicate better function/quality of life. 50th percentile is the average of the general population and indicates half of respondents had a worse score. OBJECTIVE MEASURES WITH LEVEL OF FUNCTION: Gait Gait Device: Cane Gait Observation: outtoing and wider INES, keeps right arm up and needs cues for relaxation of arm Functional Performance Test Results 30 Second Chair Stand Test: 7 reps 5 Times Sit to Stand Test : 22.72 sec Timed Up and Go (sec): 14 sec TREATMENT: Therapeutic Exercise: 1: reassessment with discussion about goals and POC 3: squats at Barr bar x 10 Skilled Intervention: Patient was educated in proper exercise technique and purpose for exercises. Skilled judgment was used in selection of appropriate interventions. Correct performance of therapeutic exercises was facilitated with verbal cuing. Gait Trainin: turning with 4 laps (1/4 of a turn) with verbal cues with CGA and GB 2: turning in between 2 chairs x 10 reps 3: turning in 360 degree with 8 steps onlt Skilled Intervention: Patient was provided minimal assistance, contact guard assistance during pre-gait/gait training to prevent falls and insure safety. Does have tendency to fall backwards Facilitated proper gait cycle with the use of verbal cues for correction of gait deviations identified in the objective section above. Gait belt utilized during (more content not included)... [facility] 11-18-2023 History of Present illness Narrative Images from the original note were not included. Episode Visit Count: 11 Therapist That Will Accept/Oversee The Plan Of Care: Elba Samaniego or Kathy Castro Start of Care Date: 08/11/23 Onset Date: 10/07/22 Plan of Care Certification Date: 11/07/23 Next Certification Due Date: 12/18/23 Patient Identified by Name and Date of : Yes REHABILITATION AND SPORTS THERAPY PHYSICAL THERAPY PROGRESS REPORT PLAN OF CARE UPDATE: Assessment: Douglas Callaway JR demonstrates minimal improvement in ambulation, however today he is not having a good day. He has met 1 goals and progressed toward other goals. Patient continues to present with impairments in balance, gait, overall function, and posture that interfere with stair negotiation (EC in the shower, better ability to dress (less frequent difficulty)) . Current prognosis is fair secondary to clinical presentation, however does have potential to improve . Worked on turning today and pt does require increased time to process which way to turn. He also needs cues to relax right arm with ambulation. He will benefit from continued skilled therapy services to meet the updated goals for this plan of care as noted below. Goals for Episode of Care: updated 11/18/2023 Patient will perform sit to stand transfers with modified independence without hands.-met Patient will ambulate with least restrictive device with modified independence and no LOB.- progressing well in the house, still uses cane outside Patient will demonstrate current home exercise program independently. -progressing Patient will complete 10 reps on 30 second chair stand test to decrease risk of falls.- progressing (able to perform 2 more) Improve score on Timed Up and Go to by 3 sec to demonstrate MCID.- met Improve tandem stance on 4 stage balance test to = or >10 seconds to decrease risk for falls.-progressing well, almost met Verbalize decrease in fall frequency (from 8 in 1 month)- met Be able to maintain SLS B for 20 seconds -progressing 6 minute walk test -performed test, increase to being able to perform >1000 feet in 6 months Patient Goals: Improve typing. Fall less. Better strength. -met for typing, Since starting therapy has had 2 falls since starting therapy Planned Interventions, Frequency, and Duration: 1x/week, 4 weeks Total Number of Visits Planned: 4 Patient to be seen for Therapeutic exercise (22683), Neuromuscular re-education (50610), Manual therapy (66775), Therapeutic activities (00583), Self-custodial management (92043), Gait Training (90040), Patient/Family/Caregiver Education PLAN FOR NEXT VISIT: Work on stair safety, balance. LE strengthening, turning SUBJECTIVE: No falls, but pt reports that he has not been doing well for the past couple days.. Functional Limitations: stair negotiation (EC in the shower, better ability to dress (less frequent difficulty)) Pain: Pain Pain Level: 0 PROMIS Scales 11/18/2023 10/21/2023 09/16/2023 Higher is Better Phys Func - Score 43 (mild dysfunction) 35 (moderate dysfunction) 29 (severe dysfunction) Phys Func - Percentile 24 7 2 Self-Eff Symptom - Score 38 (Low) 47 (Average) 45 (Average) Self-Eff Symptom - Percentile 12 38 31 T-scores: mean of general population = 50. 5 points is clinically meaningfully difference Percentiles provide an indication of how the patient's score ranks in relation to the general population. Higher percentile rankings indicate better function/quality of life. 50th percentile is the average of the general population and indicates half of respondents had a worse score. OBJECTIVE MEASURES WITH LEVEL OF FUNCTION: Gait Gait Device: Cane Gait Observation: outtoing and wider INES, keeps right arm up and needs cues for relaxation of arm Functional Performance Test Results 30 Second Chair Stand Test: 7 reps 5 Times Sit to Stand Test : 22.72 sec Timed Up and Go (sec): 14 sec TREATMENT: Therapeutic Exercise: 1: reassessment with discussion about goals and POC 3: squats at [facility] x 10 Skilled Intervention: Patient was educated in proper exercise technique and purpose for exercises. Skilled judgment was used in selection of appropriate interventions. Correct performance of therapeutic exercises was facilitated with verbal cuing. Gait Trainin: turning with 4 laps (1/4 of a turn) with verbal cues with CGA and GB 2: turning in between 2 chairs x 10 reps 3: turning in 360 degree with 8 steps onlt Skilled Intervention: Patient was provided minimal assistance, contact guard assistance during pre-gait/gait training to prevent falls and insure safety. Does have tendency to fall backwards Facilitated proper gait cycle with the use of verbal cues for correction of gait deviations identified in the objective section above. Gait belt utilized during session for safety. Billing Therapeutic Exercise Treatment Minutes: 20 Gait Training Treatment Minutes: 23 Total Session Time (minutes): 43 Session Start Time : 1402 Session Stop Time : 1445 Karla Castro PT DPShawn documented in this encounter [facility] 11-15-2023 Miscellaneous Notes Surgery Checklist Type: colon Admission Type: outpatient Anesthesia: MAC Date: 12/29/2023 Arrival Time: 10:00am Surgery Time: 11:00am Location: [place] Spoke with patient- sending colon prep instruction through my chart Pravin Mukherjee documented in this encounter [facility] 11-11-2023 Note HNO ID: [id number] Author: MARÍA OROSCO PTA Service: ? Author Type: Technical Services Manager Type: Progress Notes Filed: 11/11/2023 15:11 Note Text: Episode Visit Count: 10 Therapist That Will Accept/Oversee The Plan Of Care: Elba Samaniego or Kathy Castro Start of Care Date: 08/11/23 Onset Date: 10/07/22 Plan of Care Certification Date: 09/23/23 Next Certification Due Date: 11/07/23 Patient Identified by Name and Date of : Yes REHABILITATION AND SPORTS THERAPY PHYSICAL THERAPY TREATMENT NOTE ASSESSMENT: Douglas Callaway tolerated the session with no issues. He demonstrated difficulty with standing on left lower extremity during balance activity. He is tolerating more advance strengthening exercises. The patient will continue to benefit from ongoing skilled physical therapy for reassessment by supervising therapist. PLAN FOR NEXT VISIT: Work on stair safety, balance. LE strengthening SUBJECTIVE: Denies falls, 2 close calls. Pain comes and goes. Today denies pain. Pain: Pain Pain Level: 0 Post Treatment Pain Post Treatment Pain Level: No Change OBJECTIVE MEASURES WITH LEVEL OF FUNCTION: Gait: Marion decreased, Wide base of support, Step length decreased uses cane. TREATMENT: Therapeutic Exercise: 1: Nu step L5. 5 min 2: 6 step ups 1 hand support R/L 5x each 3: squats toes fwd/out with 1 hand support 10x each 4: TKE 2x 10, 3 plates seat 3, legs 4. Skilled Intervention: Patient was educated in proper exercise technique and purpose for exercises. Skilled judgment was used in selection of appropriate interventions. Correct performance of therapeutic exercises was facilitated with verbal cuing. Neuromuscular Re-Education: 1: alt step taps 10x no support 2: airex slow march with 1 hand- challenging standing on left 3: airex slow alt hip abduction 10x 1 hand support 4: mobility stick heel raises/ slow march 10x hold 3 sec. 5: 5x sit to stand from mat table feet on airex 5x 6: step up/down on airex no support 5x- CGA Skilled Intervention: Skilled judgment used to assess appropriate program for balance and coordination activity. Education and demonstration for posture and positioning for tone management. Billing Therapeutic Exercise Treatment Minutes: 13 Neuromuscular Re-Education Treatment Minutes: 25 Skilled Treatment Time Minutes (timed and untimed codes): 38 Total Session Time (minutes): 38 Session Start Time : 1320 Session Stop Time : 1358 [facility] 11-11-2023 History of Present illness Narrative Episode Visit Count: 10 Therapist That Will Accept/Oversee The Plan Of Care: Elba Samaniego or Kathy Castro Start of Care Date: 08/11/23 Onset Date: 10/07/22 Plan of Care Certification Date: 09/23/23 Next Certification Due Date: 11/07/23 Patient Identified by Name and Date of : Yes REHABILITATION AND SPORTS THERAPY PHYSICAL THERAPY TREATMENT NOTE ASSESSMENT: Douglas Callaway JR tolerated the session with no issues. He demonstrated difficulty with standing on left lower extremity during balance activity. He is tolerating more advance strengthening exercises. The patient will continue to benefit from ongoing skilled physical therapy for reassessment by supervising therapist. PLAN FOR NEXT VISIT: Work on stair safety, balance. LE strengthening SUBJECTIVE: Denies falls, 2 close calls. Pain comes and goes. Today denies pain. Pain: Pain Pain Level: 0 Post Treatment Pain Post Treatment Pain Level: No Change OBJECTIVE MEASURES WITH LEVEL OF FUNCTION: Gait: Marion decreased, Wide base of support, Step length decreased uses cane. TREATMENT: Therapeutic Exercise: 1: Nu step L5. 5 min 2: 6 step ups 1 hand support R/L 5x each 3: squats toes fwd/out with 1 hand support 10x each 4: TKE 2x 10, 3 plates seat 3, legs 4. Skilled Intervention: Patient was educated in proper exercise technique and purpose for exercises. Skilled judgment was used in selection of appropriate interventions. Correct performance of therapeutic exercises was facilitated with verbal cuing. Neuromuscular Re-Education: 1: alt step taps 10x no support 2: airex slow march with 1 hand- challenging standing on left 3: airex slow alt hip abduction 10x 1 hand support 4: mobility stick heel raises/ slow march 10x hold 3 sec. 5: 5x sit to stand from mat table feet on airex 5x 6: step up/down on airex no support 5x- CGA Skilled Intervention: Skilled judgment used to assess appropriate program for balance and coordination activity. Education and demonstration for posture and positioning for tone management. Billing Therapeutic Exercise Treatment Minutes: 13 Neuromuscular Re-Education Treatment Minutes: 25 Skilled Treatment Time Minutes (timed and untimed codes): 38 Total Session Time (minutes): 38 Session Start Time : 1320 Session Stop Time : 1358 María Orosco PTA documented in this encounter [facility] 11-11-2023 Miscellaneous Notes called pt left voice mail message asking the patient to call our office back to schedule colon Pravin Mukherjee documented in this encounter [facility] 11-08-2023 Miscellaneous Notes Per prev notes- called pt left voice mail message asking the patient to call our office back to review medication Pravin Mukherjee Ok if the creon is no longer helping- he can use immodium as needed, and we should get him scheduled for a colonoscopy as well. Please let me know if he wants to get scheduled with colonoscopy and I will place the order The patient called the office stating that the Creon is no longer help. It stop helping on Oct 26. The patient would like to know if there is something else hey could take. Please advise Fátima Martinez MA November 05, 2023 3:20 PM documented in this encounter [facility] 11-03-2023 Note HNO ID: [id number] Author: MARÍA OROSCO PTA Service: ? Author Type: Technical Services Manager Type: Progress Notes Filed: 11/03/2023 14:09 Note Text: Episode Visit Count: 9 Therapist That Will Accept/Oversee The Plan Of Care: Elba Samaniego or Kathy Castro Start of Care Date: 08/11/23 Onset Date: 10/07/22 Plan of Care Certification Date: 09/23/23 Next Certification Due Date: 11/07/23 Patient Identified by Name and Date of : Yes REHABILITATION AND SPORTS THERAPY PHYSICAL THERAPY TREATMENT NOTE ASSESSMENT: Douglas Callaway JR tolerated the session with expected muscle soreness. He demonstrated good tolerance to exercises, negotiated stairs well with cues for safety an increase use of cane for support. Good ability to catch self when walking against resistance on [place] machine. The patient will continue to benefit from ongoing skilled physical therapy to progress toward set goals. PLAN FOR NEXT VISIT: Work on stair safety, balance. LE strengthening SUBJECTIVE: Pt reports he this week he hashad multiple close calls with falling, but caugh thim self. Several times on the stairs when he decided to carry something, an d1 time tripping over a wire. Still using cane in home. He has a big bruise on his coxyc. Pain: Pain Pain Level: 2 Pain Location: Buttocks - Left, Buttocks - Right Post Treatment Pain Post Treatment Pain Level: No Change OBJECTIVE MEASURES WITH LEVEL OF FUNCTION: Gait: cane, slow pace with short step length, decreased heel strike, guarded posture and clenched fist. TREATMENT: Therapeutic Exercise: 1: Nu step L5. 6min for neuropriming 2: SLR 15x 3: Bridge 12x 4: hooklying S/L hip abd vs green band 15x each 5: 6 step ups R/L 5x 6: 6 lateral step ups R/L 5x each Skilled Intervention: Patient was educated in proper exercise technique and purpose for exercises. Skilled judgment was used in selection of appropriate interventions. Correct performance of therapeutic exercises was facilitated with verbal cuing. Neuromuscular Re-Education: 1: mason walking 9# fwd- 3 laps, lateral 2 laps, cues for posture and left leg stability for slow and controlled steps Skilled Intervention: Skilled judgment used to assess appropriate program for balance and coordination activity. Education and demonstration for posture and positioning for tone management. Gait Trainin: 12 stairs with rail and cane reciprocally- CGA when descending 2: Education on us eof cane at home, an don stairs, avoid carrying things up stairs, cautious of turning around. Skilled Intervention: Patient was provided contact guard assistance during pre-gait/gait training to prevent falls and insure safety. Education provided to patient regarding the proper sequence for stair negotiation and use of cane for support vs carrying it. Billing Therapeutic Exercise Treatment Minutes: 29 Neuromuscular Re-Education Treatment Minutes: 10 Gait Training Treatment Minutes: 5 Skilled Treatment Time Minutes (timed and untimed codes): 44 Total Session Time (minutes): 44 Session Start Time : 1317 Session Stop Time : 1401 [facility] 11-03-2023 History of Present illness Narrative Episode Visit Count: 9 Therapist That Will Accept/Oversee The Plan Of Care: Elba Samaniego or Kathy Castro Start of Care Date: 08/11/23 Onset Date: 10/07/22 Plan of Care Certification Date: 09/23/23 Next Certification Due Date: 11/07/23 Patient Identified by Name and Date of : Yes REHABILITATION AND SPORTS THERAPY PHYSICAL THERAPY TREATMENT NOTE ASSESSMENT: Douglas Callaway JR tolerated the session with expected muscle soreness. He demonstrated good tolerance to exercises, negotiated stairs well with cues for safety an increase use of cane for support. Good ability to catch self when walking against resistance on [place] machine. The patient will continue to benefit from ongoing skilled physical therapy to progress toward set goals. PLAN FOR NEXT VISIT: Work on stair safety, balance. LE strengthening SUBJECTIVE: Pt reports he this week he hashad multiple close calls with falling, but caugh thim self. Several times on the stairs when he decided to carry something, an d1 time tripping over a wire. Still using cane in home. He has a big bruise on his coxyc. Pain: Pain Pain Level: 2 Pain Location: Buttocks - Left, Buttocks - Right Post Treatment Pain Post Treatment Pain Level: No Change OBJECTIVE MEASURES WITH LEVEL OF FUNCTION: Gait: cane, slow pace with short step length, decreased heel strike, guarded posture and clenched fist. TREATMENT: Therapeutic Exercise: 1: Nu step L5. 6min for neuropriming 2: SLR 15x 3: Bridge 12x 4: hooklying S/L hip abd vs green band 15x each 5: 6 step ups R/L 5x 6: 6 lateral step ups R/L 5x each Skilled Intervention: Patient was educated in proper exercise technique and purpose for exercises. Skilled judgment was used in selection of appropriate interventions. Correct performance of therapeutic exercises was facilitated with verbal cuing. Neuromuscular Re-Education: 1: mason walking 9# fwd- 3 laps, lateral 2 laps, cues for posture and left leg stability for slow and controlled steps Skilled Intervention: Skilled judgment used to assess appropriate program for balance and coordination activity. Education and demonstration for posture and positioning for tone management. Gait Trainin: 12 stairs with rail and cane reciprocally- CGA when descending 2: Education on us eof cane at home, an don stairs, avoid carrying things up stairs, cautious of turning around. Skilled Intervention: Patient was provided contact guard assistance during pre-gait/gait training to prevent falls and insure safety. Education provided to patient regarding the proper sequence for stair negotiation and use of cane for support vs carrying it. Billing Therapeutic Exercise Treatment Minutes: 29 Neuromuscular Re-Education Treatment Minutes: 10 Gait Training Treatment Minutes: 5 Skilled Treatment Time Minutes (timed and untimed codes): 44 Total Session Time (minutes): 44 Session Start Time : 1317 Session Stop Time : 1401 María Orosco PTA documented in this encounter [facility] 10-28-2023 Note HNO ID: [id number] Author: MARÍA OROSCO PTA Service: ? Author Type: Technical Services Manager Type: Progress Notes Filed: 10/28/2023 14:45 Note Text: Episode Visit Count: 8 Therapist That Will Accept/Oversee The Plan Of Care: Elba Samaniego or Kathy Castro Start of Care Date: 08/11/23 Onset Date: 10/07/22 Plan of Care Certification Date: 09/23/23 Next Certification Due Date: 11/07/23 Patient Identified by Name and Date of : Yes REHABILITATION AND SPORTS THERAPY PHYSICAL THERAPY TREATMENT NOTE ASSESSMENT: Douglas Brianna ChaoCesia JR tolerated the session with no issues. He demonstrated difficulty with lifting left lower extremity over foam roller, required support while balancing on right. The patient will continue to benefit from ongoing skilled physical therapy to progress toward set goals. PLAN FOR NEXT VISIT: Continue with glute/hip strength and balance SUBJECTIVE: Pt reports he fell on Wednesday by missing step. His buttocks is sore today. He was able to get up ok, assisted. Reports saw his DrJoann and she wants him to continue therapy, possibly for his back. He is getting scheduled for an MRI on his brain. Pain: Pain Pain Level: 5 Pain Location: Buttocks - Left, Buttocks - Right Post Treatment Pain Post Treatment Pain Level: No Change OBJECTIVE MEASURES WITH LEVEL OF FUNCTION: Unsteady once standing from total gym, became retropulsive. Challenged with right lower extremity stance. TREATMENT: Therapeutic Exercise: 1: Nu step L5. 6min for neuropriming 2: TG squats 2x 15 3: SLR 12x 4: sidelying hip abd 10x 5: squats 10x Skilled Intervention: Patient was educated in proper exercise technique and purpose for exercises. Skilled judgment was used in selection of appropriate interventions. Correct performance of therapeutic exercises was facilitated with verbal cuing. Neuromuscular Re-Education: 1: alt step taps on 6 step no support- cues for alt arm swing for balance 2: R/L step overs foam roller 10x required 1 hand support when stepping over with left 3: up/down 6 step no support CGA 5x Skilled Intervention: Skilled judgment used to assess appropriate program for balance and coordination activity. Education and demonstration for posture and positioning for tone management. Billing Therapeutic Exercise Treatment Minutes: 30 Neuromuscular Re-Education Treatment Minutes: 10 Skilled Treatment Time Minutes (timed and untimed codes): 40 Total Session Time (minutes): 40 Session Start Time : 1400 Session Stop Time : 1440 [facility] 10-28-2023 History of Present illness Narrative Episode Visit Count: 8 Therapist That Will Accept/Oversee The Plan Of Care: Elba Samaniego or Kathy Castro Start of Care Date: 08/11/23 Onset Date: 10/07/22 Plan of Care Certification Date: 09/23/23 Next Certification Due Date: 11/07/23 Patient Identified by Name and Date of : Yes REHABILITATION AND SPORTS THERAPY PHYSICAL THERAPY TREATMENT NOTE ASSESSMENT: Douglas Brianna ChaoCesia JR tolerated the session with no issues. He demonstrated difficulty with lifting left lower extremity over foam roller, required support while balancing on right. The patient will continue to benefit from ongoing skilled physical therapy to progress toward set goals. PLAN FOR NEXT VISIT: Continue with glute/hip strength and balance SUBJECTIVE: Pt reports he fell on Wednesday by missing step. His buttocks is sore today. He was able to get up ok, assisted. Reports saw his DrJoann and she wants him to continue therapy, possibly for his back. He is getting scheduled for an MRI on his brain. Pain: Pain Pain Level: 5 Pain Location: Buttocks - Left, Buttocks - Right Post Treatment Pain Post Treatment Pain Level: No Change OBJECTIVE MEASURES WITH LEVEL OF FUNCTION: Unsteady once standing from total gym, became retropulsive. Challenged with right lower extremity stance. TREATMENT: Therapeutic Exercise: 1: Nu step L5. 6min for neuropriming 2: TG squats 2x 15 3: SLR 12x 4: sidelying hip abd 10x 5: squats 10x Skilled Intervention: Patient was educated in proper exercise technique and purpose for exercises. Skilled judgment was used in selection of appropriate interventions. Correct performance of therapeutic exercises was facilitated with verbal cuing. Neuromuscular Re-Education: 1: alt step taps on 6 step no support- cues for alt arm swing for balance 2: R/L step overs foam roller 10x required 1 hand support when stepping over with left 3: up/down 6 step no support CGA 5x Skilled Intervention: Skilled judgment used to assess appropriate program for balance and coordination activity. Education and demonstration for posture and positioning for tone management. Billing Therapeutic Exercise Treatment Minutes: 30 Neuromuscular Re-Education Treatment Minutes: 10 Skilled Treatment Time Minutes (timed and untimed codes): 40 Total Session Time (minutes): 40 Session Start Time : 1400 Session Stop Time : 1440 María Orosco PTA documented in this encounter [facility] 10-26-2023 Note HNO ID: [id number] Author: SHERYL BASSETT MD Service: ? Author Type: Physician Type: Progress Notes Filed: 11/13/2023 15:22 Note Text: October 26, 2023 Follow up visit Interval history Patient is 68 years old man who is here for follow up to discuss test results EMG showed lumbar radiculopathy and no neuropathy Physical therapy ,muscle relaxant help as conservative treatment . Once a week since August 2023 It helps him to walk better. He does better when doing therapy at home Breakthrough falling ,falling forwards ,not backwards Intermittent back pain Leg weakness Subjective HISTORY AND PHYSICAL Douglas Callaway JR 68 year old man with weakness in both legs more on the right than left since October 2022 and frequent falls He is shaffling instead of regular steps ,tripping over or losing balance . Although having frequent falls ,he didn't go to therapy ,and doesn't have a cane for balance . Falling and losing balance or tripping on anyhting Back pain or neck pain none Numbness in the feet at night No leg pain ,he had right shoulder pain s/p right shoulder replacement and decrease in the range of movement He noticed that he falls more when it is dark, or when closing his eyes in the shower Years ago had stroke but had no documents ,because the hospital closed Review of Systems Objective 10/26/23 1604 BP: 176/90 BP Site: Left Arm BP Position: Sitting BP Cuff Size: Regular Adult Pulse: (!) 50 SpO2: 97% Weight: 72.7 kg (160 lb 4.4 oz) Height: 172.7 cm (5' 8) Physical Exam EXAM: NOSE: no erythema or exudate PHARYNX: normal, no erythema NECK: supple and no adenopathy CHEST: Normal chest wall exam NODES: Neurological Exam MENTAL STATUS: Alert, oriented to person, place and time and Follows commands CRANIAL NERVES: EOM's intact, Visual edmond intact to confrontation, Face symmetric, Hearing intact to finger rub bilaterally, No dysarthria, Palate elevates symmetrically, Tongue protrudes midline, and Shoulder with limitation of range of movement of the right shoulder symmetric MOTOR: No drift and Normal tone MOTOR STRENGTH: Upper and lower extremity 5/5 bilaterally REFLEXES: Reflexes are diminished but present at the knees both sides and absent at the ankles on both sides SENSATION: Positive Romberg COORDINATION: Finger-to- nose-finger intact bilaterally GAIT: Not assessed PAST MEDICAL HISTORY Diagnosis Date Bipolar II disorder ([facility]) CAD (coronary artery disease) 12/2019 CABG x 3 Carotid artery occlusion with cerebral infarction ([facility]) pt denies this; CVA was secondary to HTN CVA (cerebral vascular accident) ([facility]) 2003 related to untreated HTN; no residual effects Depression Elevated LFTs Gastroparesis POP procedure 06/11/21 GERD (gastroesophageal reflux disease) Hepatitis A 09/2018 Resolved HTN (hypertension) Hyperlipemia Insomnia CABRERA (obstructive sleep apnea) does not currently have a CPAP Osteoporoses Renal insufficiency TIA (transient ischemic attack) prior to CVA in 2003, none since Type 2 diabetes mellitus ([facility]) 2018 Iván Case PCP Current Outpatient Medications Medication Sig Dispense Refill pantoprazole DR (PROTONIX) 40 mg tablet take 1 tablet by mouth twice a day 180 tablet 2 ydzjws-fgkmbfzz-oppyfyj (CREON 36) 36,000-114,000- 180,000 unit delayed release capsule Take 2 caps by mouth 3 times daily with meals and 1 cap with each snack. Take 1st cap before meal starts and the 2nd cap intermediate through. 240 capsule 5 primidone (MYSOLINE) 50 mg tablet Take 1 tablet by mouth every afternoon. JARDIANCE 10 mg tablet Take 1 tablet by mouth every afternoon. ondansetron (ZOFRAN) 4 mg tablet Take 1 tablet by mouth once daily as needed for nausea/vomiting (for nausea.). 30 tablet 2 amoxicillin (AMOXIL) 500 mg capsule losartan (COZAAR) 50 mg tablet Take 1 tablet by mouth every afternoon. aspirin, enteric coated (JAILENE LOW DOSE ASPIRIN) 81 mg EC tablet Take by mouth. lamoTRIgine (LAMICTAL) 100 mg tablet take 1/2 tablet by mouth once daily to BE TAKEN ALONG WITH 200 MN... (REFER TO PRESCRIPTION NOTES). lamoTRIgine ER (LAMICTAL XR) 250 mg 24 hr tablet Take by mouth once daily. doxepin capsule 10 mg Take 10 mg by mouth as needed. alendronate (FOSAMAX) 70 mg tablet Take 70 mg by mouth one time a week. In AM with cup of water on empty stomach. Nothing else by mouth and stay upright for 30 min. cyanocobalamin, vitamin B-12, (VITAMIN B12 ORAL) Take 1 tablet by mouth once daily. cholecalciferol, vitamin D3, (VITAMIN D3 ORAL) Take 1 capsule by mouth once daily. dorzolamide-timolol (COSOPT) 22.3-6.8 mg/mL ophthalmic solution Use 1 Drop in both eyes twice daily. DULoxetine (CYMBALTA) 60 mg capsule Take 60 mg by mouth once daily. metFORMIN (GLUCOPHAGE) 1,000 mg tablet Take 1,000 mg by mouth twice daily with meals. rosuvastatin (CRESTOR) 40 mg tablet Take 40 mg by mouth daily at bedt (more content not included)... [facility] 10-26-2023 History of Present illness Narrative October 26, 2023 Follow up visit Interval history Patient is 68 years old man who is here for follow up to discuss test results EMG showed lumbar radiculopathy and no neuropathy Physical therapy ,muscle relaxant help as conservative treatment . Once a week since August 2023 It helps him to walk better. He does better when doing therapy at home Breakthrough falling ,falling forwards ,not backwards Intermittent back pain Leg weakness Subjective HISTORY AND PHYSICAL Douglas Reed Cesia 68 year old man with weakness in both legs more on the right than left since October 2022 and frequent falls He is shaffling instead of regular steps ,tripping over or losing balance . Although having frequent falls ,he didn't go to therapy ,and doesn't have a cane for balance . Falling and losing balance or tripping on anyhting Back pain or neck pain none Numbness in the feet at night No leg pain ,he had right shoulder pain s/p right shoulder replacement and decrease in the range of movement He noticed that he falls more when it is dark, or when closing his eyes in the shower Years ago had stroke but had no documents ,because the hospital closed Review of Systems Objective 10/26/23 1604 BP: 176/90 BP Site: Left Arm BP Position: Sitting BP Cuff Size: Regular Adult Pulse: (!) 50 SpO2: 97% Weight: 72.7 kg (160 lb 4.4 oz) Height: 172.7 cm (5' 8) Physical Exam EXAM: NOSE: no erythema or exudate PHARYNX: normal, no erythema NECK: supple and no adenopathy CHEST: Normal chest wall exam NODES: Neurological Exam MENTAL STATUS: Alert, oriented to person, place and time and Follows commands CRANIAL NERVES: EOM's intact, Visual edmond intact to confrontation, Face symmetric, Hearing intact to finger rub bilaterally, No dysarthria, Palate elevates symmetrically, Tongue protrudes midline, and Shoulder with limitation of range of movement of the right shoulder symmetric MOTOR: No drift and Normal tone MOTOR STRENGTH: Upper and lower extremity 5/5 bilaterally REFLEXES: Reflexes are diminished but present at the knees both sides and absent at the ankles on both sides SENSATION: Positive Romberg COORDINATION: Finger-to- nose-finger intact bilaterally GAIT: Not assessed PAST MEDICAL HISTORY Diagnosis Date Bipolar II disorder (HCC) CAD (coronary artery disease) 12/2019 CABG x 3 Carotid artery occlusion with cerebral infarction (HCC) pt denies this; CVA was secondary to HTN CVA (cerebral vascular accident) ([facility]) 2003 related to untreated HTN; no residual effects Depression Elevated LFTs Gastroparesis POP procedure 06/11/21 GERD (gastroesophageal reflux disease) Hepatitis A 09/2018 Resolved HTN (hypertension) Hyperlipemia Insomnia CABRERA (obstructive sleep apnea) does not currently have a CPAP Osteoporoses Renal insufficiency TIA (transient ischemic attack) prior to CVA in 2004, none since Type 2 diabetes mellitus (HCC) 2018 Iván Case PCP Current Outpatient Medications Medication Sig Dispense Refill pantoprazole DR (PROTONIX) 40 mg tablet take 1 tablet by mouth twice a day 180 tablet 2 gulpcj-brhitaoo-oumnjrr (CREON 36) 36,000-114,000- 180,000 unit delayed release capsule Take 2 caps by mouth 3 times daily with meals and 1 cap with each snack. Take 1st cap before meal starts and the 2nd cap intermediate through. 240 capsule 5 primidone (MYSOLINE) 50 mg tablet Take 1 tablet by mouth every afternoon. JARDIANCE 10 mg tablet Take 1 tablet by mouth every afternoon. ondansetron (ZOFRAN) 4 mg tablet Take 1 tablet by mouth once daily as needed for nausea/vomiting (for nausea.). 30 tablet 2 amoxicillin (AMOXIL) 500 mg capsule losartan (COZAAR) 50 mg tablet Take 1 tablet by mouth every afternoon. aspirin, enteric coated (JAILENE LOW DOSE ASPIRIN) 81 mg EC tablet Take by mouth. lamoTRIgine (LAMICTAL) 100 mg tablet take 1/2 tablet by mouth once daily to BE TAKEN ALONG WITH 200 MN... (REFER TO PRESCRIPTION NOTES). lamoTRIgine ER (LAMICTAL XR) 250 mg 24 hr tablet Take by mouth once daily. doxepin capsule 10 mg Take 10 mg by mouth as needed. alendronate (FOSAMAX) 70 mg tablet Take 70 mg by mouth one time a week. In AM with cup of water on empty stomach. Nothing else by mouth and stay upright for 30 min. cyanocobalamin, vitamin B-12, (VITAMIN B12 ORAL) Take 1 tablet by mouth once daily. cholecalciferol, vitamin D3, (VITAMIN D3 ORAL) Take 1 capsule by mouth once daily. dorzolamide-timolol (COSOPT) 22.3-6.8 mg/mL ophthalmic solution Use 1 Drop in both eyes twice daily. DULoxetine (CYMBALTA) 60 mg capsule Take 60 mg by mouth once daily. metFORMIN (GLUCOPHAGE) 1,000 mg tablet Take 1,000 mg by mouth twice daily with meals. rosuvastatin (CRESTOR) 40 mg tablet Take 40 mg by mouth daily at bedtime. metoprolol tartrate 75 mg tab Take 75 mg by mouth twice daily. amoxicillin-clavulanic acid (AUGMENTIN) 875-125 mg per tablet Take by mouth. (Patient not taking: Reported on 10/26/2023) atorvastatin (LIPITOR) 80 mg tablet Take 1 tablet by mouth every evening. (Patient not taking: Reported on 09/21/2023) dorzolamide (TRUSOPT) 2 % ophthalmic solution Use in eyes. (Patient not taking: Reported on 10/26/2023) doxycycline hyclate (VIBRAMYCIN) 100 mg capsule Take by mouth. (Patient not taking: Reported on 05/13/2023) rosuvastatin (CRESTOR) 10 mg tablet Take 10 mg by mouth every evening. (Patient not taking: Reported on 10/26/2023) oxyCODONE-acetaminophen (PERCOCET) 5-325 mg tablet Take 1-2 tablets by mouth every 8 hours as needed for pain. (Patient not taking: Reported on 09/19/2021) ondansetron (ZOFRAN) 4 mg tablet take 1 tablet by mouth every 8 hours if needed for nausea (Patient not taking: No sig reported) 30 tablet 1 aspirin (JAILENE CHEWABLE ASPIRIN) 81 mg chewable tablet Take 81 mg by mouth once daily. (Patient not taking: Reported on 09/21/2023) amLODIPine (NORVASC) 10 mg tablet Take 10 mg by mouth once daily. (Patient not taking: Reported on 06/10/2023) No current facility-administered medications for this visit. Social Connections: Not on file Abnormality of gait due to impairment of balance (primary encounter diagnosis) Transient cerebral ischemia, unspecified type Assessment and Plan Patient is 68 years old man who is complaining of weakness in both legs and frequent falls He has diabetic neuropathy causing lots of imbalance and falls Office Visit on 10/26/23 MRI BRAIN WO IVCON CONSULT TO PHYSICAL THERAPY Total time in minutes spent with patient, reviewing records, labs, imaging, formulating plan, and documentin minutes with more than 50% of the time spent in patient education/counselling/coordinating care with the patient and /or family. Sheryl Bassett M.D. [facility] [place] Department of Neurology documented in this encounter [facility] 10-25-2023 Miscellaneous Notes Pharmacy interfaced requesting the following refill. Requested Prescriptions Pending Prescriptions Disp Refills pantoprazole DR (PROTONIX) 40 mg tablet [Pharmacy Med Name: PANTOPRAZOLE SOD DR 40 MG TAB] 180 tablet Sig: take 1 tablet by mouth twice a day Next Appointment: Visit date not found Patient Phone numbers: [phone] (home) Request is for script(s) to be escript to pharmacy. Alysia Whyte MA documented in this encounter [facility] 10-21-2023 Note HNO ID: [id number] Author: KARLA CASTRO PT, DPT Service: ? Author Type: Physical Therapist Type: Progress Notes Filed: 10/21/2023 11:47 Note Text: ---- Summary: PT progress report ---- Episode Visit Count: 7 Therapist That Will Accept/Oversee The Plan Of Care: Elba Samaniego or Kathy Castro Start of Care Date: 08/11/23 Onset Date: 10/07/22 Plan of Care Certification Date: 09/23/23 Next Certification Due Date: 11/07/23 Patient Identified by Name and Date of : Yes REHABILITATION AND SPORTS THERAPY PHYSICAL THERAPY PROGRESS REPORT PLAN OF CARE UPDATE: Assessment: Douglas Callaway JR demonstrates moderate improvement in balance, stairs, and ambulation confidence. He has met some goals and progressed toward other goals. Patient continues to present with impairments in balance and marion with gait, functional BLE strength that interfere with (occasional difficulty with dressing, minor trouble with stairs, and EC balanceing for showering) . Current prognosis is Good due to: acuteness of condition, positive past response to therapy . PROMIS has improved from severe dysfunction with physical activity to moderate dysfunction. He will benefit from continued skilled therapy services to meet the updated goals for this plan of care as noted below. Goals for Episode of Care: updated 10/21/2023 Patient will perform sit to stand transfers with modified independence without hands.-met Patient will ambulate with least restrictive device with modified independence and no LOB.- progressing well in the house, still uses cane outside Patient will demonstrate current home exercise program independently. -progressing Patient will complete 10 reps on 30 second chair stand test to decrease risk of falls.- progressing (able to perform 2 more) Improve score on Timed Up and Go to by 3 sec to demonstrate MCID.- met Improve tandem stance on 4 stage balance test to = or >10 seconds to decrease risk for falls.-progressing well, almost met Verbalize decrease in fall frequency (from 8 in 1 month)- progressing Be able to maintain SLS B for 20 seconds -progressing 6 minute walk test -performed test, increase to being able to perform >1000 feet in 6 months Patient Goals: Improve typing. Fall less. Better strength. -progressing Planned Interventions, Frequency, and Duration: 1x/week, 4 weeks Total Number of Visits Planned: 4 Patient to be seen for Therapeutic exercise (35512), Neuromuscular re-education (63553), Manual therapy (30299), Therapeutic activities (73807), Self-custodial management (82790), Gait Training (23851), Patient/Family/Caregiver Education PLAN FOR NEXT VISIT: leg press machine or squats on Barr, endurance and glut/hip strength, balance with EC SUBJECTIVE: Pt reports that he does not use the cane in the home as much. Still has difficulty with EC balance (showering) and more careful with stepping over and seeing wires on the floor.. Is compliant with HEP. Functional Limitations: (occasional difficulty with dressing, minor trouble with stairs, and EC balanceing for showering) Pain: Pain Pain Level: 0 Post Treatment Pain Post Treatment Pain Level: 0 PROMIS Scales Higher is Better 10/21/2023 09/16/2023 Phys Func - Score 35 (moderate dysfunction) 29 (severe dysfunction) Phys Func - Percentile 7% 2% Self-Eff Symptom - Score 47 (Average) 45 (Average) Self-Eff Symptom - Percentile 38% 31% T-scores: mean of general population = 50. 5 points is clinically meaningfully difference Percentiles provide an indication of how the patient's score ranks in relation to the general population. Higher percentile rankings indicate better function/quality of life. 50th percentile is the average of the general population and indicates half of respondents had a worse score. OBJECTIVE MEASURES WITH LEVEL OF FUNCTION: Mobility Sit To Stand Comments: (dificutly once buttock lifts of chair to stand) Gait Gait: Comments Gait Device: Cane, None Gait Deviations: General Deviations General Deviations/Observations: Marion decreased, Wide base of support, Step length decreased, Difficulty changing direction/turning, Arm swing decreased Gait Observation: outtoing and wider INES Functional Performance Test Results Assistive Device: Cane, None 30 Second Chair Stand Test: (44 seconds for 10) 5 Times Sit to Stand Test : 20.25 sec 6 Minute Walk Test (ft): 940 ft (286 m) 6 Minute Walk Test Gait Speed (calculated): 0.8 m/s 4 Stage Balance Test Single leg stance - right (sec): 16 sec Single leg stance - left (sec): 14 sec CTSIB Eyes closed, firm surface Trial 1 (sec): 30 (also with head turns) TREATMENT: Therapeutic Exercise: 1: Nu step L5. 6min for neuropriming 2: reassessment with disussion about POC and goals (more content not included)... [facility] 10-21-2023 History of Present illness Narrative Summary: PT progress report Episode Visit Count: 7 Therapist That Will Accept/Oversee The Plan Of Care: Elba Samaniego or Kathy Castro Start of Care Date: 08/11/23 Onset Date: 10/07/22 Plan of Care Certification Date: 09/23/23 Next Certification Due Date: 11/07/23 Patient Identified by Name and Date of : Yes REHABILITATION AND SPORTS THERAPY PHYSICAL THERAPY PROGRESS REPORT PLAN OF CARE UPDATE: Assessment: Douglas Callaway JR demonstrates moderate improvement in balance, stairs, and ambulation confidence. He has met some goals and progressed toward other goals. Patient continues to present with impairments in balance and marion with gait, functional BLE strength that interfere with (occasional difficulty with dressing, minor trouble with stairs, and EC balanceing for showering) . Current prognosis is Good due to: acuteness of condition, positive past response to therapy . PROMIS has improved from severe dysfunction with physical activity to moderate dysfunction. He will benefit from continued skilled therapy services to meet the updated goals for this plan of care as noted below. Goals for Episode of Care: updated 10/21/2023 Patient will perform sit to stand transfers with modified independence without hands.-met Patient will ambulate with least restrictive device with modified independence and no LOB.- progressing well in the house, still uses cane outside Patient will demonstrate current home exercise program independently. -progressing Patient will complete 10 reps on 30 second chair stand test to decrease risk of falls.- progressing (able to perform 2 more) Improve score on Timed Up and Go to by 3 sec to demonstrate MCID.- met Improve tandem stance on 4 stage balance test to = or >10 seconds to decrease risk for falls.-progressing well, almost met Verbalize decrease in fall frequency (from 8 in 1 month)- progressing Be able to maintain SLS B for 20 seconds -progressing 6 minute walk test -performed test, increase to being able to perform >1000 feet in 6 months Patient Goals: Improve typing. Fall less. Better strength. -progressing Planned Interventions, Frequency, and Duration: 1x/week, 4 weeks Total Number of Visits Planned: 4 Patient to be seen for Therapeutic exercise (57624), Neuromuscular re-education (82490), Manual therapy (49384), Therapeutic activities (51015), Self-custodial management (00775), Gait Training (88430), Patient/Family/Caregiver Education PLAN FOR NEXT VISIT: leg press machine or squats on Barr, endurance and glut/hip strength, balance with EC SUBJECTIVE: Pt reports that he does not use the cane in the home as much. Still has difficulty with EC balance (showering) and more careful with stepping over and seeing wires on the floor.. Is compliant with HEP. Functional Limitations: (occasional difficulty with dressing, minor trouble with stairs, and EC balanceing for showering) Pain: Pain Pain Level: 0 Post Treatment Pain Post Treatment Pain Level: 0 PROMIS Scales Higher is Better 10/21/2023 09/16/2023 Phys Func - Score 35 (moderate dysfunction) 29 (severe dysfunction) Phys Func - Percentile 7% 2% Self-Eff Symptom - Score 47 (Average) 45 (Average) Self-Eff Symptom - Percentile 38% 31% T-scores: mean of general population = 50. 5 points is clinically meaningfully difference Percentiles provide an indication of how the patient's score ranks in relation to the general population. Higher percentile rankings indicate better function/quality of life. 50th percentile is the average of the general population and indicates half of respondents had a worse score. OBJECTIVE MEASURES WITH LEVEL OF FUNCTION: Mobility Sit To Stand Comments: (dificutly once buttock lifts of chair to stand) Gait Gait: Comments Gait Device: Cane, None Gait Deviations: General Deviations General Deviations/Observations: Marion decreased, Wide base of support, Step length decreased, Difficulty changing direction/turning, Arm swing decreased Gait Observation: outtoing and wider INES Functional Performance Test Results Assistive Device: Cane, None 30 Second Chair Stand Test: (44 seconds for 10) 5 Times Sit to Stand Test : 20.25 sec 6 Minute Walk Test (ft): 940 ft (286 m) 6 Minute Walk Test Gait Speed (calculated): 0.8 m/s 4 Stage Balance Test Single leg stance - right (sec): 16 sec Single leg stance - left (sec): 14 sec CTSIB Eyes closed, firm surface Trial 1 (sec): 30 (also with head turns) TREATMENT: Therapeutic Exercise: 1: Nu step L5. 6min for neuropriming 2: reassessment with disussion about POC and goals 3: 6 minute walk for endurance 4: sit <> stands x 30 seconds and once for 10 reps timed 5: changed HEP to include squats and SL hip abduction (standing or SL) Skilled Intervention: Patient was educated in proper exercise technique and purpose for exercises. Skilled judgment was used in selection of appropriate interventions. Provided written instruction for home exercise program to facilitate proper performance and compliance. Correct performance of therapeutic exercises was facilitated with verbal and visual cuing. Additional time necessary for rest breaks as needed. Neuromuscular Re-Education: 1: normal INES with EC x 30 seconds, head turns R/L x 30 seconds, head turns up/down x 30 seconds Skilled Intervention: Skilled judgment used to assess appropriate program for balance and coordination activity. Education in proprioceptive/kinesthetic awareness during standing and dynamic activities. 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 Author Type: Physician Manager [employer] Type: Progress Notes Filed: 10/13/2023 14:04 Note Text: GASTROENTEROLOGY PROGRESS NOTE OUTPATIENT FOLLOW UP HPI: I saw Douglas Callaway JR today for a follow up after being diagnosed with EPI. He is taking creon with each meal.- 2 with each meal and one with each snack. He has noticed significant improvement. He is havig normal formed stool once daily on average. He will occasionally skip a day and will occasionally twice daily. PAST MEDICAL HISTORY Diagnosis Date Bipolar II disorder (HCC) CAD (coronary artery disease) 12/2019 CABG x 3 Carotid artery occlusion with cerebral infarction (HCC) pt denies this; CVA was secondary to HTN CVA (cerebral vascular accident) (HCC) 2003 related to untreated HTN; no residual effects Depression Elevated LFTs Gastroparesis POP procedure 06/11/21 GERD (gastroesophageal reflux disease) Hepatitis A 09/2018 Resolved HTN (hypertension) Hyperlipemia Insomnia CABRERA (obstructive sleep apnea) does not currently have a CPAP Osteoporoses Renal insufficiency TIA (transient ischemic attack) prior to CVA in 2004, none since Type 2 diabetes mellitus (HCC) 2018 Iván Case PCP PAST SURGICAL HISTORY Procedure Laterality Date COLONOSCOPY GEN ANES 09/2017 normal per patient CORONARY ART/GRFT ANGIO ARIADNA 12/15/2019 [facility] ; CABG x 3 EGD 08/2020 at [facility] EGD WITH BIOPSY(S) 05/13/2023 Dr. Fajardo ERCP STENT PLACEMENT BILIARY/PANCREATIC DUCT 09/02/2021 Dr Yarbrough GI TRANSIT AND PRES CARLEY WIRELESS CAPSULE W/INTERP 01/08/2021 Smart Pill-delayed gastric emptying; INCISIONAL BIOPSY SKIN SINGLE LESION biopsy of mass over right eye; benign LAPAROSCOPIC CHOLECYSTECTOMY 09/02/2021 PER ORAL PYLOROMYOTOMY (POP) PROCEDURE (COMP 12784) 06/11/2021 Dr. Bray REMV CATARACT EXTRACAP,INSERT LENS Bilateral 2016 SHOULDER SURGERY HX TONSILLECTOMY HX Social History Tobacco Use Smoking status: Former Types: Cigarettes Smokeless tobacco: Never Tobacco comments: during college Vaping Use Vaping Use: Never used Substance Use Topics Alcohol use: Yes Alcohol/week: 12.0 standard drinks of alcohol Types: 12 Cans of Beer (12oz) per week Drug use: Never FAMILY HISTORY Problem Relation Age of Onset other (pulmonary fibrosis) Mother Colon Cancer Father Current Outpatient Medications Medication Sig primidone (MYSOLINE) 50 mg tablet Take 1 tablet by mouth every afternoon. JARDIANCE 10 mg tablet Take 1 tablet by mouth every afternoon. pantoprazole DR (PROTONIX) 40 mg tablet take 1 tablet by mouth twice a day isaryg-kijqpxdk-hhmurbq (CREON 36) 36,000-114,000- 180,000 unit delayed release capsule Take 2 caps by mouth 3 times daily with meals and 1 cap with each snack. Take 1st cap before meal starts and the 2nd cap intermediate through. ondansetron (ZOFRAN) 4 mg tablet Take 1 tablet by mouth once daily as needed for nausea/vomiting (for nausea.). amoxicillin (AMOXIL) 500 mg capsule amoxicillin-clavulanic acid (AUGMENTIN) 875-125 mg per tablet Take by mouth. dorzolamide (TRUSOPT) 2 % ophthalmic solution Use in eyes. losartan (COZAAR) 50 mg tablet Take 1 tablet by mouth every afternoon. aspirin, enteric coated (JAILENE LOW DOSE ASPIRIN) 81 mg EC tablet Take by mouth. lamoTRIgine (LAMICTAL) 100 mg tablet take 1/2 tablet by mouth once daily to BE TAKEN ALONG WITH 200 MN... (REFER TO PRESCRIPTION NOTES). rosuvastatin (CRESTOR) 10 mg tablet Take 10 mg by mouth every evening. lamoTRIgine ER (LAMICTAL XR) 250 mg 24 hr tablet Take by mouth once daily. doxepin capsule 10 mg Take 10 mg by mouth as needed. alendronate (FOSAMAX) 70 mg tablet Take 70 mg by mouth one time a week. In AM with cup of water on empty stomach. Nothing else by mouth and stay upright for 30 min. cyanocobalamin, vitamin B-12, (VITAMIN B12 ORAL) Take 1 tablet by mouth once daily. cholecalciferol, vitamin D3, (VITAMIN D3 ORAL) Take 1 capsule by mouth once daily. dorzolamide-timolol (COSOPT) 22.3-6.8 mg/mL ophthalmic solution Use 1 Drop in both eyes twice daily. DULoxetine (CYMBALTA) 60 mg capsule Take 60 mg by mouth once daily. metFORMIN (GLUCOPHAGE) 1,000 mg tablet Take 1,000 mg by mouth twice daily with meals. rosuvastatin (CRESTOR) 40 mg tablet Take 40 mg by mouth daily at bedtime. metoprolol tartrate 75 mg tab Take 75 mg by mouth twice daily. atorvastatin (LIPITOR) 80 mg tablet Take 1 tablet by mouth every evening. (Patient not taking: Reported on 09/21/2023) doxycycline hyclate (VIBRAMYCIN) 100 mg capsule Take by mouth. (Patient not taking: Reported on 05/13/2023) oxyCODONE-acetaminophen (PERCOCET) 5-325 mg tablet Take 1-2 tablets by mouth every 8 hours as needed for pain. (Patient not taking: Reported on 09/19/2021) ondansetron (ZOFRAN) 4 mg tablet take 1 tablet by mouth every 8 hours if needed for nausea (Patient not taki (more content not included)... [facility] 10-13-2023 History of Present illness Narrative GASTROENTEROLOGY PROGRESS NOTE OUTPATIENT FOLLOW UP HPI: I saw Douglas Callaway today for a follow up after being diagnosed with EPI. He is taking creon with each meal.- 2 with each meal and one with each snack. He has noticed significant improvement. He is havig normal formed stool once daily on average. He will occasionally skip a day and will occasionally twice daily. PAST MEDICAL HISTORY Diagnosis Date Bipolar II disorder (HCC) CAD (coronary artery disease) 12/2019 CABG x 3 Carotid artery occlusion with cerebral infarction (HCC) pt denies this; CVA was secondary to HTN CVA (cerebral vascular accident) (HCC) 2003 related to untreated HTN; no residual effects Depression Elevated LFTs Gastroparesis POP procedure 06/11/21 GERD (gastroesophageal reflux disease) Hepatitis A 09/2018 Resolved HTN (hypertension) Hyperlipemia Insomnia CABRERA (obstructive sleep apnea) does not currently have a CPAP Osteoporoses Renal insufficiency TIA (transient ischemic attack) prior to CVA in 2003, none since Type 2 diabetes mellitus (HCC) 2018 Iván Case PCP PAST SURGICAL HISTORY Procedure Laterality Date COLONOSCOPY GEN ANES 09/2017 normal per patient CORONARY ART/GRFT ANGIO S&I 12/15/2019 Summa Marroquin ; CABG x 3 EGD 08/2020 at [facility] EGD WITH BIOPSY(S) 05/13/2023 Dr. Fajardo ERCP STENT PLACEMENT BILIARY/PANCREATIC DUCT 09/02/2021 Dr Yarbrough GI TRANSIT & PRES CARLEY WIRELESS CAPSULE W/INTERP 01/08/2021 Smart Pill-delayed gastric emptying; INCISIONAL BIOPSY SKIN SINGLE LESION biopsy of mass over right eye; benign LAPAROSCOPIC CHOLECYSTECTOMY 09/02/2021 PER ORAL PYLOROMYOTOMY (POP) PROCEDURE (COMP 76880) 06/11/2021 Dr. Bray REMV CATARACT EXTRACAP,INSERT LENS Bilateral 2016 SHOULDER SURGERY HX TONSILLECTOMY HX Social History Tobacco Use Smoking status: Former Types: Cigarettes Smokeless tobacco: Never Tobacco comments: during college Vaping Use Vaping Use: Never used Substance Use Topics Alcohol use: Yes Alcohol/week: 12.0 standard drinks of alcohol Types: 12 Cans of Beer (12oz) per week Drug use: Never FAMILY HISTORY Problem Relation Age of Onset other (pulmonary fibrosis) Mother Colon Cancer Father Current Outpatient Medications Medication Sig primidone (MYSOLINE) 50 mg tablet Take 1 tablet by mouth every afternoon. JARDIANCE 10 mg tablet Take 1 tablet by mouth every afternoon. pantoprazole DR (PROTONIX) 40 mg tablet take 1 tablet by mouth twice a day xwajjf-qdikftsl-eybqauk (CREON 36) 36,000-114,000- 180,000 unit delayed release capsule Take 2 caps by mouth 3 times daily with meals and 1 cap with each snack. Take 1st cap before meal starts and the 2nd cap intermediate through. ondansetron (ZOFRAN) 4 mg tablet Take 1 tablet by mouth once daily as needed for nausea/vomiting (for nausea.). amoxicillin (AMOXIL) 500 mg capsule amoxicillin-clavulanic acid (AUGMENTIN) 875-125 mg per tablet Take by mouth. dorzolamide (TRUSOPT) 2 % ophthalmic solution Use in eyes. losartan (COZAAR) 50 mg tablet Take 1 tablet by mouth every afternoon. aspirin, enteric coated (JAILENE LOW DOSE ASPIRIN) 81 mg EC tablet Take by mouth. lamoTRIgine (LAMICTAL) 100 mg tablet take 1/2 tablet by mouth once daily to BE TAKEN ALONG WITH 200 MN... (REFER TO PRESCRIPTION NOTES). rosuvastatin (CRESTOR) 10 mg tablet Take 10 mg by mouth every evening. lamoTRIgine ER (LAMICTAL XR) 250 mg 24 hr tablet Take by mouth once daily. doxepin capsule 10 mg Take 10 mg by mouth as needed. alendronate (FOSAMAX) 70 mg tablet Take 70 mg by mouth one time a week. In AM with cup of water on empty stomach. Nothing else by mouth and stay upright for 30 min. cyanocobalamin, vitamin B-12, (VITAMIN B12 ORAL) Take 1 tablet by mouth once daily. cholecalciferol, vitamin D3, (VITAMIN D3 ORAL) Take 1 capsule by mouth once daily. dorzolamide-timolol (COSOPT) 22.3-6.8 mg/mL ophthalmic solution Use 1 Drop in both eyes twice daily. DULoxetine (CYMBALTA) 60 mg capsule Take 60 mg by mouth once daily. metFORMIN (GLUCOPHAGE) 1,000 mg tablet Take 1,000 mg by mouth twice daily with meals. rosuvastatin (CRESTOR) 40 mg tablet Take 40 mg by mouth daily at bedtime. metoprolol tartrate 75 mg tab Take 75 mg by mouth twice daily. atorvastatin (LIPITOR) 80 mg tablet Take 1 tablet by mouth every evening. (Patient not taking: Reported on 09/21/2023) doxycycline hyclate (VIBRAMYCIN) 100 mg capsule Take by mouth. (Patient not taking: Reported on 05/13/2023) oxyCODONE-acetaminophen (PERCOCET) 5-325 mg tablet Take 1-2 tablets by mouth every 8 hours as needed for pain. (Patient not taking: Reported on 09/19/2021) ondansetron (ZOFRAN) 4 mg tablet take 1 tablet by mouth every 8 hours if needed for nausea (Patient not taking: No sig reported) aspirin (JAILENE CHEWABLE ASPIRIN) 81 mg chewable tablet Take 81 mg by mouth once daily. (Patient not taking: Reported on 09/21/2023) amLODIPine (NORVASC) 10 mg tablet Take 10 mg by mouth once daily. (Patient not taking: Reported on 06/10/2023) No current facility-administered medications for this visit. ALLERGIES No Known Allergies GI SPECIFIC ROS: Difficulty swallowing / foods sticking in throat: No Heartburn: No Hoarseness: No Chronic cough: No Regurgitation: No Chest pain: No Filling up quickly at meals: No Loss of appetite: No Nausea: No Vomiting: No Abdominal pain: No Recent change in bowel movements: No Bloody or black, bowel movements: No Constipation: No Diarrhea: No Loss of control of bowel movements: No Night sweats, fever, chills: No Vomiting blood: No Recent change in weight: No PHYSICAL EXAMINATION: BP 158/71 Pulse 73 Ht 5' 8 (1.73m) Wt 161 lb (73.0kg) BMI 24.49 kg/(m^2). GENERAL APPEARANCE: Well appearing, alert, in no acute distress, well-hydrated, well nourished. SKIN: Skin color, texture, turgor normal, no suspicious rashes or lesions. EYES: Anicteric sclera. Extraocular movements are intact. NECK: Supple, no adenopathy; thyroid symmetric, normal size, no bruits.\ EXTREMITIES: No deformities, edema, skin discoloration, clubbing or cyanosis. NEUROLOGIC: Gait normal. Sensation and strength grossly intact. LABS: Hemoglobin (g/dL) Date Value 09/16/2023 13.1 Hematocrit (%) Date Value 09/16/2023 39.3 WBC (k/uL) Date Value 09/16/2023 9.56 Lab Results Component Value Date TBILI 0.5 09/16/2023 CREAT 1.42 (H) 09/16/2023 INR 1.0 09/16/2023 ALB 4.0 09/16/2023 ALKPHOS 149 (H) 09/16/2023 AST 44 (H) 09/16/2023 ALT 38 09/16/2023 TPROT 6.5 09/16/2023 Plan ASSESSMENT AND PLAN: Impression: This is a 68 yr old male who presents to the office today to follow up for his EPI. He has been taking creon for a few months and is doing significantly better. He is now having regular bowel movements, once daily on average. Essentially no diarrhea. He has been taking the creon as prescribed- but does note that it is very expensive. Advised him that he should continue it, and I did give him a nurse ambassador sheet from [facility] to call to see if he qualifies for patient assistance. I am also requesting him to repeat the calprotectin level because it was quite elevated last time- I am assuming this was related to the diarrhea at the time, but want to ensure it has returned to normal. He will be due for colonoscopy in 2027. ASSESSMENT/PLAN: 1. Postprocedural leakage from bile duct - ICD9: 997.49, ICD10: K91.89 2. Diarrhea, unspecified type - ICD9: 787.91, ICD10: R19.7 - CALPROTECTIN,FECAL 3. Exocrine pancreatic insufficiency - ICD9: 577.8, ICD10: K86.81 - [id number] 36,000-114,000-180,000 UNIT CAPSULE,DELAY REL Karla Sauer PA-C I spent a total of 30 minutes on the date of the service which included preparing to see the patient, lowi-ma-socl patient care, completing clinical documentation, counseling and educating the patient/family/caregiver, and ordering medications, tests, or procedures. documented in this encounter [facility] 10-11-2023 Note HNO ID: [id number] Author: MARÍA OROSCO PTA Service: ? Author Type: Technical Services Manager Type: Progress Notes Filed: 10/11/2023 17:35 Note Text: Episode Visit Count: 6 Therapist That Will Accept/Oversee The Plan Of Care: Elba Samaniego Start of Care Date: 08/11/23 Onset Date: 10/07/22 Plan of Care Certification Date: 09/23/23 Next Certification Due Date: 11/07/23 Patient Identified by Name and Date of : Yes REHABILITATION AND SPORTS THERAPY PHYSICAL THERAPY TREATMENT NOTE ASSESSMENT: Douglas Brianna Callaway JR tolerated the session with . He demonstrated good stair negotiation today without issue, challenged with standing on uneven surfaces and stepping on top of stones. The patient will continue to benefit from ongoing skilled physical therapy for reassessment by supervising therapist. PLAN FOR NEXT VISIT: Progress balance and gait SUBJECTIVE: Pt reports he is feeling really well today, almost came without cane. Compliant with HEP. Pain: Pain Pain Level: 0 Post Treatment Pain Post Treatment Pain Level: 0 OBJECTIVE MEASURES WITH LEVEL OF FUNCTION: CGA for obstacle and balance activity without device. TREATMENT: Therapeutic Exercise: 1: Nu step L5. 6min for neuropriming 2: standing hs stretch on step 3x 15 sec. 3: *SLR 10x 4: * Bridge 10x hold 5 sec. 5: * clam shells 15x Skilled Intervention: Patient was educated in proper exercise technique and purpose for exercises. Skilled judgment was used in selection of appropriate interventions. Correct performance of therapeutic exercises was facilitated with verbal cuing. Neuromuscular Re-Education: 1: obstacle course 3x through steppin priyanka /on top obstacles - CGA. 2: walking on wedge 4x - CGA 3: ambulating in gym without device with head turns 150ft. Skilled Intervention: Skilled judgment used to assess appropriate program for balance and coordination activity. Education and demonstration for posture and positioning for tone management. Gait Trainin: 12 stairs with 1 rail reciprocal pattern SBA Skilled Intervention: Patient was provided contact guard assistance during pre-gait/gait training to prevent falls and insure safety. Education provided to patient regarding the proper sequence for stair negotiation. 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 and working on turning in 8 steps - 1 x daily - 7 x weekly - 3 sets - 10 reps - sidestepping in and out of bucket - 1 x daily - 7 x weekly - 3 sets - 10 reps - Sit to Stand - 1 x daily - 7 x weekly - 3 sets - 10 reps - Supine Bridge - 1 x daily - x weekly - 2 sets - 10 reps - Supine Active Straight Leg Raise - 1 x daily - x weekly - 2 sets - 10 reps - Hooklying Clamshell with Resistance - 1 x daily - x weekly - 2 sets - 10 reps Episode Visit Count: 6 Therapist That Will Accept/Oversee The Plan Of Care: Elba Samaniego Start of Care Date: 08/11/23 Onset Date: 10/07/22 Plan of Care Certification Date: 09/23/23 Next Certification Due Date: 11/07/23 Patient Identified by Name and Date of : Yes REHABILITATION AND SPORTS THERAPY PHYSICAL THERAPY TREATMENT NOTE ASSESSMENT: Douglas Brianna Callaway JR tolerated the session with . He demonstrated good stair negotiation today without issue, challenged with standing on uneven surfaces and stepping on top of stones. The patient will continue to benefit from ongoing skilled physical therapy for reassessment by supervising therapist. PLAN FOR NEXT VISIT: Progress balance and gait SUBJECTIVE: Pt reports he is feeling really well today, almost came without cane. Compliant with HEP. Pain: Pain Pain Level: 0 Post Treatment Pain Post Treatment Pain Level: 0 OBJECTIVE MEASURES WITH LEVEL OF FUNCTION: CGA for obstacle and balance activity without device. TREATMENT: Therapeutic Exercise: 1: Nu step L5. 6min for neuropriming 2: standing hs stretch on step 3x 15 sec. 3: *SLR 10x 4: * Bridge 10x hold 5 sec. 5: * clam shells 15x Skilled Intervention: Patient was educated in proper exercise technique and purpose for exercises. Skilled judgment was used in selection of appropriate interventions. Correct performance of therapeutic exercises was facilitated with verbal cuing. Neuromuscular Re-Education: 1: obstacle course 3x through steppin priyanka /on top obstacles - CGA. 2: walking on wedge 4x - CGA 3: ambulating in gym without device with head turns 150ft. Skilled Intervention: Skilled judgment used to assess appropriate program for balance and coordination activity. Education and demonstration for posture and positioning for tone management. Gait Trainin: 12 stairs with 1 rail reciprocal pattern SBA Skilled Intervention: Patient was provided contact guard assistance during pre-gait/gait training to prevent falls and insure safety. Education provided to patient regarding the proper sequence for stair negotiation. Billing Therapeutic Exercise Treatment Minutes: 21 Neuromuscular Re-Education Treatment Minutes: 15 Gait Training Treatment Minutes: 2 Skilled Treatment Time Minutes (timed and untimed codes): 38 Total Session Time (minutes): 38 Session Start Time : 1509 Session Stop Time : 1547 María Orosco PTA documented in this encounter [facility] 10-06-2023 Note HNO ID: [id number] Author: MARÍA OROSCO PTA Service: ? Author Type: Technical Services Manager Type: Progress Notes Filed: 10/06/2023 16:19 Note Text: Episode Visit Count: 5 Therapist That Will Accept/Oversee The Plan Of Care: Elba Samaniego Start of Care Date: 08/11/23 Onset Date: 10/07/22 Plan of Care Certification Date: 09/23/23 Next Certification Due Date: 11/07/23 Patient Identified by Name and Date of : Yes REHABILITATION AND SPORTS THERAPY PHYSICAL THERAPY TREATMENT NOTE ASSESSMENT: Douglas Callaway JR tolerated the session with expected muscle soreness. He demonstrated difficulty with walking backwards, and alternating foot taps on step. Will benefit from balance activity and strengthening. The patient will continue to benefit from ongoing skilled physical therapy to progress toward set goals. PLAN FOR NEXT VISIT: right groin stretches, progress balance on unstable surfaces, work on stairs SUBJECTIVE: Pt reports the HEP is challenging due to feeling more unsteady on his feet lately. Standing is difficult. Legs feel weak. Pain: Pain Pain Level: 0 Post Treatment Pain Post Treatment Pain Level: 0 OBJECTIVE MEASURES WITH LEVEL OF FUNCTION: Retropulsive with standing balance activity, CGA for correction. TREATMENT: Therapeutic Exercise: 1: Nu step L5. 6min for neuropriming 2: 4 step ups fwd/side 5x each 3: 5x sit to stands no hands Skilled Intervention: Patient was educated in proper exercise technique and purpose for exercises. Skilled judgment was used in selection of appropriate interventions. Correct performance of therapeutic exercises was facilitated with verbal and visual cuing. Neuromuscular Re-Education: 1: rhomberg/staggerd B chest press/overhead/rotation 5x each 2: side stepping at mat table 15ftx 3 3: fwd/bkwd walking at mat table 15ft x 3 4: alt step taps 4 step 10x Skilled Intervention: Skilled judgment used to assess appropriate program for balance and coordination activity. Education and demonstration for posture and positioning for tone management. Gait Trainin: 4 steps B rails reciprocally 3 x 2. cues for wider INES and slid ehands down rail when descending. Skilled Intervention: Patient was provided contact guard assistance during pre-gait/gait training to prevent falls and insure safety. Education provided to patient regarding the proper sequence for stair negotiation. Billing Therapeutic Exercise Treatment Minutes: 20 Neuromuscular Re-Education Treatment Minutes: 20 Gait Training Treatment Minutes: 2 Skilled Treatment Time Minutes (timed and untimed codes): 42 Total Session Time (minutes): 42 Session Start Time : 1532 Session Stop Time : 1614 María Orosco [facility] 09-23-2023 Note HNO ID: [id number] Author: KARLA CASTRO, PT, DPT Service: ? Author Type: Physical Therapist Type: Progress Notes Filed: 09/23/2023 15:44 Note Text: Episode Visit Count: 4 Therapist That Will Accept/Oversee The Plan Of Care: Elba Samaniego Start of Care Date: 08/11/23 Onset Date: 10/07/22 Plan of Care Certification Date: 09/23/23 Next Certification Due Date: 11/07/23 Patient Identified by Name and Date of : Yes REHABILITATION AND SPORTS THERAPY PHYSICAL THERAPY PROGRESS REPORT PLAN OF CARE UPDATE: Assessment: Douglas Callaway JR demonstrates moderate improvement in balance and functional strength. He has met 2 goals. Patient continues to present with impairments in balance, overall function, and functional performance testing indicates less risk for falls risks ( but is still progressing to age based normals) that interfere with standing, walking, rising from a chair, stair negotiation, heavy exertion, physical activities, dressing, Comments Buttoning. Current prognosis is . Added new goals for progression. He will benefit from continued skilled therapy services to meet the updated goals for this plan of care as noted below. Goals for Episode of Care: updated 09/23/2023 Patient will perform sit to stand transfers with modified independence without hands.-met Patient will ambulate with least restrictive device with modified independence and no LOB.- progressing Patient will demonstrate current home exercise program independently. -progressing Patient will complete 10 reps on 30 second chair stand test to decrease risk of falls.- progressing Improve score on Timed Up and Go to by 3 sec to demonstrate MCID.- met Improve tandem stance on 4 stage balance test to = or >10 seconds to decrease risk for falls.-progressing Verbalize decrease in fall frequency (from 8 in 1 month)- progressing Be able to maintain SLS B for 20 seconds (new goal as of 09/23/2023) 6 minute walk test (new goal as of 09/23/2023 ) Patient Goals: Improve typing. Fall less. Better strength. -progressing Planned Interventions, Frequency, and Duration: 1x/week, 6 weeks Total Number of Visits Planned: 6 Patient to be seen for Therapeutic exercise (81207), Neuromuscular re-education (25254), Manual therapy (21077), Therapeutic activities (59583), Self-custodial management (73008), Gait Training (39477), Patient/Family/Caregiver Education PLAN FOR NEXT VISIT: right groin stretches, progress balance on unstable surfaces, work on stairs SUBJECTIVE: Pt has had two falls since starting therapy. Last fall was in the hospital and he got stiches in the ER. Pt is still using cane on stairs and in the community. Pt reports that his typing has improved since starting a new medication.. Functional Limitations: standing, walking, rising from a chair, stair negotiation, heavy exertion, physical activities, dressing, Comments Functional Limitation Comments: Buttoning Pain: Pain Pain Level: 0 Post Treatment Pain Post Treatment Pain Level: 0 PROMIS Scales Higher is Better 09/16/2023 Phys Func - Score 29 (severe dysfunction) Phys Func - Percentile 2% Self-Eff Symptom - Score 45 (Average) Self-Eff Symptom - Percentile 31% T-scores: mean of general population = 50. 5 points is clinically meaningfully difference Percentiles provide an indication of how the patient's score ranks in relation to the general population. Higher percentile rankings indicate better function/quality of life. 50th percentile is the average of the general population and indicates half of respondents had a worse score. OBJECTIVE MEASURES WITH LEVEL OF FUNCTION: Functional Performance Test Results Assistive Device: (none) 30 Second Chair Stand Test: 6 reps 5 Times Sit to Stand Test : 24 sec Timed Up and Go (sec): 12.5 sec 4 Stage Balance Test Tandem base of support (sec): 30 sec Single leg stance - right (sec): 6 sec Single leg stance - left (sec): 13 sec TREATMENT: Therapeutic Exercise: 1: reassessment with discussion on goals and POC Skilled Intervention: Patient was educated in proper exercise technique and purpose for exercises. Skilled judgment was used in selection of appropriate interventions. Correct performance of therapeutic exercises was facilitated with verbal and visual cuing. Neuromuscular Re-Education: 1: PWR standing x 10 Skilled Intervention: Skilled judgment used to assess appropriate program for balance and coordination activity. Education in proprioceptive/kinesthetic awareness during standing and dynamic activities. Ensured patient safety with use of CGA and mat behind pt Billing Therapeutic Exercise Treatment Minutes: 30 Neuromuscular Re-Education Treatment Minutes: 11 Skilled Treatment Time Minutes (timed and untimed codes): 41 Total Session Time (minutes): 41 Session Start Time : 1457 Session Stop Time : 1538 Karla Castro, PT, DPT [facility] 09-21-2023 Note HNO ID: [id number] Author: OLESYA VASQUEZ MD Service: ? Author Type: Physician Type: Progress Notes Filed: 09/21/2023 09:55 Note Text: IMPRESSION 68-year-old male with nasal bone fracture causing external nasal deviation. RECOMMENDATION/PLAN I discussed the patient regarding his options which includes doing nothing versus close reduction of nasal bone fracture. I informed that if you choose to do nothing, he will have a permanent external deviation of his nose. After our discussion, patient wishes to proceed with close reduction of nasal bone fracture. He understand the risk include but not limited to bleeding, infection, risk of anesthesia, persistent external nasal deviation after the procedure, malunion and nonunion and potential need for further surgery. Informed consent was obtained. Will get him scheduled for the procedure in the near future. 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 Chief Complaint Nasal bone fracture History of Present Illness Douglas Callaway JR is a 68 year old male present for evaluation nasal bone fracture. Patient had a fall and hit his face on September 16, 2023. Patient had a CT scan of his face in the emergency room which was reviewed and interpreted by me. The CT scan showed patient had a septal and nasal bone fracture. His nose was packed due to epistaxis. Patient was on baby aspirin. He has not had any further bleeding since nasal packing. PAST MEDICAL HISTORY Diagnosis Date Bipolar II disorder (HCC) CAD (coronary artery disease) 12/2019 CABG x 3 Carotid artery occlusion with cerebral infarction (HCC) pt denies this; CVA was secondary to HTN CVA (cerebral vascular accident) (HCC) 2003 related to untreated HTN; no residual effects Depression Elevated LFTs Gastroparesis POP procedure 06/11/21 GERD (gastroesophageal reflux disease) Hepatitis A 09/2018 Resolved HTN (hypertension) Hyperlipemia Insomnia CABRERA (obstructive sleep apnea) does not currently have a CPAP Osteoporoses Renal insufficiency TIA (transient ischemic attack) prior to CVA in 2003, none since Type 2 diabetes mellitus (HCC) 2018 Iván Case PCP PAST SURGICAL HISTORY Procedure Laterality Date COLONOSCOPY GEN ANES 09/2017 normal per patient CORONARY ART/GRFT ANGIO ARIADNA 12/15/2019 Summa Marroquin ; CABG x 3 EGD 08/2020 at [facility] EGD WITH BIOPSY(S) 05/13/2023 Dr. Fajardo ERCP STENT PLACEMENT BILIARY/PANCREATIC DUCT 09/02/2021 Dr Yarbrough GI TRANSIT AND PRES CARLEY WIRELESS CAPSULE W/INTERP 01/08/2021 Smart Pill-delayed gastric emptying; INCISIONAL BIOPSY SKIN SINGLE LESION biopsy of mass over right eye; benign LAPAROSCOPIC CHOLECYSTECTOMY 09/02/2021 PER ORAL PYLOROMYOTOMY (POP) PROCEDURE (COMP 83405) 06/11/2021 Dr. Tomy LARSON CATARACT EXTRACAP,INSERT LENS Bilateral 2016 SHOULDER SURGERY HX TONSILLECTOMY HX FAMILY HISTORY Problem Relation Age of Onset other (pulmonary fibrosis) Mother Colon Cancer Father CURRENT OUTPATIENT MEDICATIONS Current Outpatient Medications on File Prior to Visit Medication Sig primidone (MYSOLINE) 50 mg tablet Take 1 tablet by mouth every afternoon. JARDIANCE 10 mg tablet Take 1 tablet by mouth every afternoon. amoxicillin-clavulanate potassium (AUGMENTIN) 875-125 mg per tablet Take 1 tablet by mouth two times a day for [address]. [address] (PROTONIX) 40 mg tablet take 1 tablet by mouth twice a day zlidhz-vxhfoogk-czyiugp (CREON 36) 36,000-114,000- 180,000 unit delayed release capsule Take 2 caps by mouth 3 times daily with meals and 1 cap with each snack. Take 1st cap before meal starts and the 2nd cap intermediate through. ondansetron (ZOFRAN) 4 mg tablet Take 1 tablet by mouth once daily as needed for nausea/vomiting (for nausea.). losartan (COZAAR) 50 mg tablet Take 1 tablet by mouth every afternoon. aspirin, enteric coated (JAILENE LOW DOSE ASPIRIN) 81 mg EC tablet Take by mouth. lamoTRIgine (LAMICTAL) 100 mg tablet take 1/2 tablet by mouth once daily to BE TAKEN ALONG WITH 200 MN... (REFER TO PRESCRIPTION NOTES). doxepin capsule 10 mg Take 10 mg by mouth as needed. alendronate (FOSAMAX) 70 mg tablet Take 70 mg by mouth one time a week. In AM with cup of water on empty stomach. Nothing else by mouth and stay upright for 30 min. cyanocobalamin, vitamin B-12, (VITAMIN B12 ORAL) Take 1 tablet by mouth once daily. cholecalciferol, vitamin D3, (VITAMIN D3 ORAL) Take 1 capsule by mouth once daily. dorzolamide-timolol (COSOPT) 22.3-6.8 mg/mL ophthalmic solution Use 1 Drop in both eyes twice daily. DULoxetine (CYMBALTA) 60 mg capsule Take 60 mg by mouth once daily. metFORMIN (GLUCOPHAGE) 1,000 mg tablet Take 1,000 mg by mouth twice daily with meals. metoprolol tartrate 75 mg tab Take 75 mg by mouth twice daily. amoxicillin (AMOXIL) 500 mg capsule take 4 capsules by mouth 1 hour p (more content not included)... [facility] 09-16-2023 Note HNO ID: [id number] Author: ANNE MARIE COELHO RT(R) Service: Radiology Author Type: Technologist Type: Progress Notes Filed: 09/16/2023 17:05 Note Text: Radiology Service Progress Note PATIENT NAME: Douglas Callaway JR DATE OF SERVICE: September 16, 2023 TIME: 5:05 PM PATIENT IDENTITY VERIFICATION COMPLETED USING TWO (2) IDENTIFIERS: Name and Date of confirmed by patient verbally and Name and Date of confirmed by identification band. FALL SCREENING: Has the patient had 2 falls in the last year or 1 fall with injury or currently using an Ambulatory Assistive Device (Walker, Cane, Wheelchair, Crutches, etc.)? Emergency Room Patient: Screened in ED PATIENT GENDER DATA: Male PATIENT RELEVANT IMPLANT DATA REVIEWED: Yes RADIOLOGY DEPARTMENT: CT; Exam(s) Completed: Brain , Face/Mandible, and Spine PERIPHERAL IV DATA: Not applicable SIGNED BY: RT Mariah(R) September 16, 2023 5:05 PM [facility] 09-16-2023 Note HNO ID: [id number] Author: KARLA CASTRO PT, DPT Service: ? Author Type: Physical Therapist Type: Progress Notes Filed: 09/16/2023 15:37 Note Text: Pt fell in [facility] after checking in to the kiosk. Pt was bandaged and escorted to the ED. [facility] 09-16-2023 Note HNO ID: [id number] Author: GER DREW RN Service: ? Author Type: Registered Nurse Type: Procedures Filed: 09/16/2023 16:42 Note Text: Patient checked in for physical therapy appointment in the lobby, fell in the hallway of the [facility] building, 1st floor. He walked to the elevator and was assisted on the third floor by another patient to get help by the medical specialist in pediatric cardiology. He was bleeding from a deep laceration to his forehead, nose and mouth. 4x4 gauze was applied to lacerations and secured with paper tape. Paitent A AND O x3, denies dizziness or weakness, verbalizes his feet came out from under him because he was walking too fast and fell. He denies no other injury or pain other than his face. No other visible injuries. After applying gauze dressing and pressure to control bleeding, patient was take to the ED via wheelchair by this nurse and his physical therapist. Patient was able to stand and take steps to the wheelchair, again denied feeling any other injuries or pain. Security was notified and present on 3rd floor of [facility] Building. Patient checked in and waiting to be seen in the ED, patients is aware. [facility] 08-23-2023 Miscellaneous Notes Called patient, left a message for patient to call us back.to schedule follow up physical therapy and an Occupational Therapy evaluation. Images from the original note were not included. Contacted patient per staff message below: Elba Samaniego PT, DPT [place] Pt/Ot/Speech Clerical Pool Can we call to schedule pt eval for Ot with viviana Left a voice mail to call [phone] and ask for therapy to schedule an appointment. Sent [employer] message documented in this encounter [facility] 08-19-2023 Note HNO ID: [id number] Author: Karla Castro PT, DPT Service: ? Author Type: Physical Therapist Type: Progress Notes Filed: 08/19/2023 6:11 PM Note Text: Episode Visit Count: 2 Therapist That Will Accept/Oversee The Plan Of Care: Elba Samaniego Start of Care Date: 08/11/23 Onset Date: 10/07/22 Plan of Care Certification Date: 08/11/23 Next Certification Due Date: 10/10/23 Patient Identified by Name and Date of : Yes REHABILITATION AND SPORTS THERAPY PHYSICAL THERAPY TREATMENT NOTE ASSESSMENT: Douglas Callaway JR tolerated the session with no issues. He demonstrated difficulty with PWr weight shifting with right arm raising secondary to chronic decreased AROM, had one LOB in which he requires max assist to prevent a fall backwards while performing PWR step standing. The patient will continue to benefit from ongoing skilled physical therapy to progress toward set goals. PLAN FOR NEXT VISIT: review HEP, work on turning and sit <> stands, give pt some stretches for right groin pain SUBJECTIVE: Got the EMG results and it determined more motor radiculopathy in L5-S1 nerve roots. Complaints of pain in right groin for the last couple weeks, soreness. Pain: Pain Pain Level: 3 Pain Location: Groin - Right Description: Sore Frequency: Intermittent Post Treatment Pain Post Treatment Pain Level: No Change OBJECTIVE MEASURES WITH LEVEL OF FUNCTION: TREATMENT: Therapeutic Exercise: 1: nu step level 5 x 7 minutes for neuro priming 2: education about EMG results 3: * turning in between 2 chairs 4: *sidestepping along counter 5: * sit <> stands Skilled Intervention: Patient was educated in proper exercise technique and purpose for exercises. Skilled judgment was used in selection of appropriate interventions. Provided written instruction for home exercise program to facilitate proper performance and compliance. Correct performance of therapeutic exercises was facilitated with verbal and visual cuing. Indicates new HEP Neuromuscular Re-Education: 1: PWR sit <> stands x 10, PWR seated weight shifting, PWR standing turning, PWR standing stepping Skilled Intervention: Skilled judgment used to assess appropriate program for balance and coordination activity. Education in proprioceptive/kinesthetic awareness during standing and dynamic activities. 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 and working on turning in 8 steps - 1 x daily - 7 x weekly - 3 sets - 10 reps - sidestepping in and out of bucket - 1 x daily - 7 x weekly - 3 sets - 10 reps - Sit to Stand - 1 x daily - 7 x weekly - 3 sets - 10 reps Episode Visit Count: 2 Therapist That Will Accept/Oversee The Plan Of Care: Elba Samaniego Start of Care Date: 08/11/23 Onset Date: 10/07/22 Plan of Care Certification Date: 08/11/23 Next Certification Due Date: 10/10/23 Patient Identified by Name and Date of : Yes REHABILITATION AND SPORTS THERAPY PHYSICAL THERAPY TREATMENT NOTE ASSESSMENT: Douglas Callaway JR tolerated the session with no issues. He demonstrated difficulty with PWr weight shifting with right arm raising secondary to chronic decreased AROM, had one LOB in which he requires max assist to prevent a fall backwards while performing PWR step standing. The patient will continue to benefit from ongoing skilled physical therapy to progress toward set goals. PLAN FOR NEXT VISIT: review HEP, work on turning and sit <> stands, give pt some stretches for right groin pain SUBJECTIVE: Got the EMG results and it determined more motor radiculopathy in L5-S1 nerve roots. Complaints of pain in right groin for the last couple weeks, soreness. Pain: Pain Pain Level: 3 Pain Location: Groin - Right Description: Sore Frequency: Intermittent Post Treatment Pain Post Treatment Pain Level: No Change OBJECTIVE MEASURES WITH LEVEL OF FUNCTION: TREATMENT: Therapeutic Exercise: 1: nu step level 5 x 7 minutes for neuro priming 2: education about EMG results 3: * turning in between 2 chairs 4: *sidestepping along counter 5: * sit <> stands Skilled Intervention: Patient was educated in proper exercise technique and purpose for exercises. Skilled judgment was used in selection of appropriate interventions. Provided written instruction for home exercise program to facilitate proper performance and compliance. Correct performance of therapeutic exercises was facilitated with verbal and visual cuing. Indicates new HEP Neuromuscular Re-Education: 1: PWR sit <> stands x 10, PWR seated weight shifting, PWR standing turning, PWR standing stepping Skilled Intervention: Skilled judgment used to assess appropriate program for balance and coordination activity. Education in proprioceptive/kinesthetic awareness during standing and dynamic activities. Ensured patient safety with use of CGA to max assist as needed and GB Billing Therapeutic Exercise Treatment Minutes: 15 Neuromuscular Re-Education Treatment Minutes: 31 Total Session Time (minutes): 41 Session Start Time : 1719 Session Stop Time : 1800 aKrla Castro PT, DPT documented in this encounter [facility] 08-12-2023 Note HNO ID: [id number] Author: Cindy Ryan DO Service: ? Author Type: Physician Type: Progress Notes Filed: 08/12/2023 2:26 PM Note Text: UNIVERSAL PROTOCOL / SAFETY CHECKLIST Procedure to be Performed: EMG Sign In: A Moment of CARE was completed. Personnel directly involved with the procedure wore the appropriate PPE (Personal Protective Equipment). Patient/Surrogate Stated/Verified: PATIENT VERIFIED(optional for EMERGENT procedures): Patient name, Date of , Relevant allergies, and The intended procedure Time Out Communication: Intended patient and procedure match the source documents. Correct side/site marked and visible. Sign Out: SIGN OUT (optional for EMERGENT procedures): Post-procedure follow-up management communicated and Plan of Care Visit completed when applicable. Jesús Perdomo DO Staff Neurologist [facility] 08-12-2023 History of Present illness Narrative UNIVERSAL PROTOCOL / SAFETY CHECKLIST Procedure to be Performed: EMG Sign In: A Moment of CARE was completed. Personnel directly involved with the procedure wore the appropriate PPE (Personal Protective Equipment). Patient/Surrogate Stated/Verified: PATIENT VERIFIED(optional for EMERGENT procedures): Patient name, Date of , Relevant allergies, and The intended procedure Time Out Communication: Intended patient and procedure match the source documents. Correct side/site marked and visible. Sign Out: SIGN OUT (optional for EMERGENT procedures): Post-procedure follow-up management communicated and Plan of Care Visit completed when applicable. Jesús Perdomo DO Staff Neurologist [facility] documented in this encounter [facility] 08-11-2023 Note HNO ID: [id number] Author: Elba Samaniego PT DPT Service: ? Author Type: Physical Therapist Type: Progress Notes Filed: 08/12/2023 5:58 PM Note Text: Episode Visit Count: 1 Therapist That Will Accept/Oversee The Plan Of Care: Elba Samaniego Start of Care Date: 08/11/23 Onset Date: 10/07/22 Plan of Care Certification Date: 08/11/23 Next Certification Due Date: 10/10/23 Patient Identified by Name and Date of : Yes REHABILITATION AND SPORTS THERAPY PHYSICAL THERAPY EVALUATION PLAN OF CARE: Assessment: Douglas Callaway JR presents with chief complaint of leg weakness and falls that interferes with standing, walking, rising from a chair, stair negotiation, heavy exertion, physical activities, dressing, Comments Buttoning. He presents with impairments in balance, gait, independence in exercise, overall function, and posture. Patient did not complete the PROMIS? (Patient Reported Outcome Measures Information System). Prognosis for therapy is Good due to: acuteness of condition Fair due to: clinical presentation . He will benefit from skilled therapy services to meet the goals established for this plan of care as noted below. Goals for Episode of Care: created on 08/11/23 through 10/10/23 Patient will perform sit to stand transfers with modified independence without hands. Patient will ambulate with least restrictive device with modified independence and no LOB. Patient will demonstrate current home exercise program independently. Patient will complete 10 reps on 30 second chair stand test to decrease risk of falls. Improve score on Timed Up and Go to by 3 sec to demonstrate MCID. Improve tandem stance on 4 stage balance test to = or >10 seconds to decrease risk for falls. Verbalize decrease in fall frequency (from 8 in 1 month) Patient Goals: Improve typing. Fall less. Better strength. Planned Interventions, Frequency, and Duration: Current Frequency: 1x/week Duration: 8 weeks Total Number of Visits Planned: 8 Planned Treatment Interventions: Therapeutic exercise (94367), Neuromuscular re-education (77698), Manual therapy (61779), Therapeutic activities (89802), Self-custodial management (02689), Gait Training (08314), Patient/Family/Caregiver Education PLAN FOR NEXT VISIT: PWR moves. Nustep. Patient demonstrates good understanding of plan of care and treatment. The above goals and plan of care were discussed and agreed upon by patient/family. SUBJECTIVE: Pt with weakness since October. Worse slowly but does have good and bad days. R>L leg. 7-8 fall in last month. This is progressively increasing. Also some episodes of legs giving out. Or if leans to one side. Closing eyes (shower), declines, carrying, AND uneven surfaces. Even fell while sitting on edge of tub. Occurs while turning. More clumsy. Occurred pretty suddenly. Has a cane. Does help but has fallen with a few. Helps with turning. Some shuffling. Tremor L. Numbness in feet at night. Nighttime BM's but not incontinence. Notes issues typing (writes). Patient Goals: Improve typing. Fall less. Better strength. 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) Recreation / Current Exercise: Walking 15 minutes daily weather permitting Hobbies / Interests: Writing (typing) movie critiquing Home Environment Patient Lives With: Spouse Assistance Available: 24-Hour Home Type: Multi-Level, Split Level Entry To Home: Stairs, With Rail Number Of Stairs Into Home: 0 Laundry: Basment Equipment Owned: Cane, Grab Bars- Shower Intake Information: Prescription present Previous Treatment: Physical Therapy (ortho) Falls Interview: Two or more falls in the last year Falls Intervention: More thorough falls assessment to be performed Pain: Pain Pain Level: 0 Post Treatment Pain Post Treatment Pain Level: No Change PROMIS Scales T-scores: mean of general population = 50. 5 points is clinically meaningfully difference Percentiles provide an indication of how the patient's score ranks in relation to the general population. Higher percentile rankings indicate better function/quality of life. 50th percentile is the average of the general population and indicates half of respondents had a worse score. OBJECTIVE MEASURES WITH LEVEL OF FUNCTION: Posture / Alignment Posture: Forward head, Increased thoracic kyphosis, Rounded shoulders Sensory Sensory Deficits: (Decreased sensation B feet only at night) Movement Description Movement Impairment(s): Coordination Coordination: Finger to no (more content not included)... [facility] 08-11-2023 History of Present illness Narrative Episode Visit Count: 1 Therapist That Will Accept/Oversee The Plan Of Care: Elba Samaniego Start of Care Date: 08/11/23 Onset Date: 10/07/22 Plan of Care Certification Date: 08/11/23 Next Certification Due Date: 10/10/23 Patient Identified by Name and Date of : Yes REHABILITATION AND SPORTS THERAPY PHYSICAL THERAPY EVALUATION PLAN OF CARE: Assessment: Douglas Callaway JR presents with chief complaint of leg weakness and falls that interferes with standing, walking, rising from a chair, stair negotiation, heavy exertion, physical activities, dressing, Comments Buttoning. He presents with impairments in balance, gait, independence in exercise, overall function, and posture. Patient did not complete the PROMIS (Patient Reported Outcome Measures Information System). Prognosis for therapy is Good due to: acuteness of condition Fair due to: clinical presentation . He will benefit from skilled therapy services to meet the goals established for this plan of care as noted below. Goals for Episode of Care: created on 08/11/23 through 10/10/23 Patient will perform sit to stand transfers with modified independence without hands. Patient will ambulate with least restrictive device with modified independence and no LOB. Patient will demonstrate current home exercise program independently. Patient will complete 10 reps on 30 second chair stand test to decrease risk of falls. Improve score on Timed Up and Go to by 3 sec to demonstrate MCID. Improve tandem stance on 4 stage balance test to = or >10 seconds to decrease risk for falls. Verbalize decrease in fall frequency (from 8 in 1 month) Patient Goals: Improve typing. Fall less. Better strength. Planned Interventions, Frequency, and Duration: Current Frequency: 1x/week Duration: 8 weeks Total Number of Visits Planned: 8 Planned Treatment Interventions: Therapeutic exercise (56172), Neuromuscular re-education (78210), Manual therapy (43335), Therapeutic activities (74529), Self-custodial management (01907), Gait Training (18492), Patient/Family/Caregiver Education PLAN FOR NEXT VISIT: PWR moves. Nustep. Patient demonstrates good understanding of plan of care and treatment. The above goals and plan of care were discussed and agreed upon by patient/family. SUBJECTIVE: Pt with weakness since October. Worse slowly but does have good and bad days. R>L leg. 7-8 fall in last month. This is progressively increasing. Also some episodes of legs giving out. Or if leans to one side. Closing eyes (shower), declines, carrying, & uneven surfaces. Even fell while sitting on edge of tub. Occurs while turning. More clumsy. Occurred pretty suddenly. Has a cane. Does help but has fallen with a few. Helps with turning. Some shuffling. Tremor L. Numbness in feet at night. Nighttime BM's but not incontinence. Notes issues typing (writes). Patient Goals: Improve typing. Fall less. Better strength. 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) Recreation / Current Exercise: Walking 15 minutes daily weather permitting Hobbies / Interests: Writing (typing) movie critiquing Home Environment Patient Lives With: Spouse Assistance Available: 24-Hour Home Type: Multi-Level, Split Level Entry To Home: Stairs, With Rail Number Of Stairs Into Home: 0 Laundry: Basment Equipment Owned: Cane, Grab Bars- Shower Intake Information: Prescription present Previous Treatment: Physical Therapy (ortho) Falls Interview: Two or more falls in the last year Falls Intervention: More thorough falls assessment to be performed Pain: Pain Pain Level: 0 Post Treatment Pain Post Treatment Pain Level: No Change PROMIS Scales T-scores: mean of general population = 50. 5 points is clinically meaningfully difference Percentiles provide an indication of how the patient's score ranks in relation to the general population. Higher percentile rankings indicate better function/quality of life. 50th percentile is the average of the general population and indicates half of respondents had a worse score. OBJECTIVE MEASURES WITH LEVEL OF FUNCTION: Posture / Alignment Posture: Forward head, Increased thoracic kyphosis, Rounded shoulders Sensory Sensory Deficits: (Decreased sensation B feet only at night) Movement Description Movement Impairment(s): Coordination Coordination: Finger to nose Finger to Nose Impairment: Bilateral (tremor) Mobility Sit To Stand: Supervision, Comments Sit To Stand Comments: needs UE's Stand To Sit: Supervision, Comments Stand To Sit Comments: needs UE's Gait Gait: Stand By Assistance Gait Deviations: General Deviations General Deviations/Observations: [place] decreased, Wide base of support, Step length decreased, Difficulty changing direction/turning Gait Observation: Slower speed with cane; step to pattern Functional Performance Test Results 30 Second Chair Stand Test: 4 reps Timed Up and Go (sec): 22.7 sec Timed Up and Go - Condition 2 (sec) : 34 (cane) Timed Up and Go Cognitive (sec): 23.79 sec 4 Stage Balance Test Narrow base of support (sec): 30 sec Semi-tandem base of support (sec): 25 sec Tandem base of support (sec): 3 sec CTSIB Eyes closed, firm surface Trial 1 (sec): 11 Eyes closed, firm surface Trial 1 (sway): Loss of balance Education: Education Learning Preferences: Explanation Barriers: None Learning/educational needs: Home exercise program, Plan of Care, Safety, Lifestyle changes Education Provided: Yes, see treatment interventions for education provided Education Provided To: Patient Education Mode/Type: Explanation/Discussion Response to Education/Teach Back: States/Identifies TREATMENT: PT Treatment Interventions: Therapeutic Exercise, Neuromuscular Re-Education Evaluation Therapeutic Exercise: 1: HEP issued, reviewed, and distributed to patient (see [employer]) 2: Education: POC; goals; OT evaluation recommendations Skilled Intervention: Proper selection of treatments for this session based on clinical presentation, deficits, and needs. Patient educated on technique for exercises/activities performed this session. Education as above Neuromuscular Re-Education: 1: Education: shower chair for in shower; dressing (bad arm out last); no ladders or step tools; home safety (no throw rugs, proper lighting including hallway); fall risk; device needs possible 2: Outcomes completed Skilled Intervention: education as above Proper implementation of objective outcomes with explanation of findings/deficits. Proper patient guarding to prevent falls/increase patient safety. Billing * Evaluation Moderate Complexity: 1 Unit Therapeutic Exercise Treatment Minutes: 10 Neuromuscular Re-Education Treatment Minutes: 10 Skilled Treatment Time Minutes (timed and untimed codes): 55 Total Session Time (minutes): 56 Session Start Time : 1614 Session Stop Time : 1710 Elba Samaniego PT DPT documented in this encounter [facility] 07-27-2023 Note HNO ID: [id number] Author: Sheryl Bassett MD Service: ? Author Type: Physician Type: Progress Notes Filed: 07/27/2023 5:18 PM Note Text: July 27, 2023 New Patient Leg weakness Subjective HISTORY AND PHYSICAL Douglas Callaway 68 year old man with weakness in both legs more on the right than left since October 2022 and frequent falls He is shaffling instead of regular steps ,tripping over or losing balance . Although having frequent falls ,he didn't go to therapy ,and doesn't have a cane for balance . Falling and losing balance or tripping on anyhting Back pain or neck pain none Numbness in the feet at night No leg pain ,he had right shoulder pain s/p right shoulder replacement and decrease in the range of movement He noticed that he falls more when it is dark, or when closing his eyes in the shower Years ago had stroke but had no documents ,because the hospital closed Review of Systems Objective 07/27/23 1417 BP: (!) 135/45 BP Site: Left Arm BP Position: Sitting BP Cuff Size: Regular Adult Pulse: (!) 46 SpO2: 97% Height: 172.7 cm (5' 8) Physical Exam EXAM: NOSE: no erythema or exudate PHARYNX: normal, no erythema NECK: supple and no adenopathy CHEST: Normal chest wall exam NODES: Neurological Exam MENTAL STATUS: Alert, oriented to person, place and time and Follows commands CRANIAL NERVES: EOM's intact, Visual edmond intact to confrontation, Face symmetric, Hearing intact to finger rub bilaterally, No dysarthria, Palate elevates symmetrically, Tongue protrudes midline, and Shoulder with limitation of range of movement of the right shoulder symmetric MOTOR: No drift and Normal tone MOTOR STRENGTH: Upper and lower extremity 5/5 bilaterally REFLEXES: Reflexes are diminished but present at the knees both sides and absent at the ankles on both sides SENSATION: Positive Romberg COORDINATION: Finger-to- nose-finger intact bilaterally GAIT: Not assessed PAST MEDICAL HISTORY Diagnosis Date Bipolar II disorder (HCC) CAD (coronary artery disease) 12/2019 CABG x 3 Carotid artery occlusion with cerebral infarction (HCC) pt denies this; CVA was secondary to HTN CVA (cerebral vascular accident) (HCC) 2003 related to untreated HTN; no residual effects Depression Elevated LFTs Gastroparesis POP procedure 06/11/21 GERD (gastroesophageal reflux disease) Hepatitis A 09/2018 Resolved HTN (hypertension) Hyperlipemia Insomnia CABRERA (obstructive sleep apnea) does not currently have a CPAP Osteoporoses Renal insufficiency TIA (transient ischemic attack) prior to CVA in 2004, none since Type 2 diabetes mellitus (HCC) 2019 Iván Case PCP Current Outpatient Medications Medication Sig Dispense Refill ondansetron (ZOFRAN) 4 mg tablet Take 1 tablet by mouth once daily as needed for nausea/vomiting (for nausea.). 30 tablet 2 amoxicillin-clavulanic acid (AUGMENTIN) 875-125 mg per tablet Take by mouth. losartan (COZAAR) 50 mg tablet Take 1 tablet by mouth every afternoon. aspirin, enteric coated (JAILENE LOW DOSE ASPIRIN) 81 mg EC tablet Take by mouth. lamoTRIgine (LAMICTAL) 100 mg tablet take 1/2 tablet by mouth once daily to BE TAKEN ALONG WITH 200 MN... (REFER TO PRESCRIPTION NOTES). rosuvastatin (CRESTOR) 10 mg tablet Take 10 mg by mouth every evening. pantoprazole DR (PROTONIX) 40 mg tablet Take 1 tablet by mouth twice daily. 60 tablet 2 doxepin capsule 10 mg Take 10 mg by mouth as needed. alendronate (FOSAMAX) 70 mg tablet Take 70 mg by mouth one time a week. In AM with cup of water on empty stomach. Nothing else by mouth and stay upright for 30 min. cyanocobalamin, vitamin B-12, (VITAMIN B12 ORAL) Take 1 tablet by mouth once daily. cholecalciferol, vitamin D3, (VITAMIN D3 ORAL) Take 1 capsule by mouth once daily. dorzolamide-timolol (COSOPT) 22.3-6.8 mg/mL ophthalmic solution Use 1 Drop in both eyes twice daily. DULoxetine (CYMBALTA) 60 mg capsule Take 60 mg by mouth once daily. metFORMIN (GLUCOPHAGE) 1,000 mg tablet Take 1,000 mg by mouth twice daily with meals. metoprolol tartrate 75 mg tab Take 75 mg by mouth twice daily. amoxicillin (AMOXIL) 500 mg capsule take 4 capsules by mouth 1 hour prior to procedure (Patient not taking: Reported on 07/27/2023) atorvastatin (LIPITOR) 80 mg tablet Take 1 tablet by mouth every evening. dorzolamide (TRUSOPT) 2 % ophthalmic solution Use in eyes. (Patient not taking: Reported on 07/27/2023) doxycycline hyclate (VIBRAMYCIN) 100 mg capsule Take by mouth. (Patient not taking: Reported on 05/13/2023) lamoTRIgine ER (LAMICTAL XR) 250 mg 24 hr tablet Take by mouth once daily. (Patient not taking: Reported on 07/27/2023) oxyCODONE-acetaminophen (PERCOCET) 5-325 mg tablet Take 1-2 tablets by mouth every 8 hours as needed for pain. (Patient not taking: Reported on 09/19/2021) ondansetron (ZOFRAN) 4 mg tablet take 1 tablet by mouth every 8 hours i (more content not included)... [facility] 07-27-2023 Note HNO ID: [id number] Author: Ross Dimas MA Service: ? 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 Although having frequent falls ,he didn't go to therapy ,and doesn't have a cane for balance . Falling and losing balance or tripping on anyhting Back pain or neck pain none Numbness in the feet at night No leg pain ,he had right shoulder pain s/p right shoulder replacement and decrease in the range of movement He noticed that he falls more when it is dark, or when closing his eyes in the shower Years ago had stroke but had no documents ,because the hospital closed Review of Systems Objective 07/27/23 1417 BP: (!) 135/45 BP Site: Left Arm BP Position: Sitting BP Cuff Size: Regular Adult Pulse: (!) 46 SpO2: 97% Height: 172.7 cm (5' 8) Physical Exam EXAM: NOSE: no erythema or exudate PHARYNX: normal, no erythema NECK: supple and no adenopathy CHEST: Normal chest wall exam NODES: Neurological Exam MENTAL STATUS: Alert, oriented to person, place and time and Follows commands CRANIAL NERVES: EOM's intact, Visual edmond intact to confrontation, Face symmetric, Hearing intact to finger rub bilaterally, No dysarthria, Palate elevates symmetrically, Tongue protrudes midline, and Shoulder with limitation of range of movement of the right shoulder symmetric MOTOR: No drift and Normal tone MOTOR STRENGTH: Upper and lower extremity 5/5 bilaterally REFLEXES: Reflexes are diminished but present at the knees both sides and absent at the ankles on both sides SENSATION: Positive Romberg COORDINATION: Finger-to- nose-finger intact bilaterally GAIT: Not assessed PAST MEDICAL HISTORY Diagnosis Date Bipolar II disorder ([facility]) CAD (coronary artery disease) 12/2019 CABG x 3 Carotid artery occlusion with cerebral infarction ([facility]) pt denies this; CVA was secondary to HTN CVA (cerebral vascular accident) ([facility]) 2003 related to untreated HTN; no residual effects Depression Elevated LFTs Gastroparesis POP procedure 06/11/21 GERD (gastroesophageal reflux disease) Hepatitis A 09/2018 Resolved HTN (hypertension) Hyperlipemia Insomnia CABRERA (obstructive sleep apnea) does not currently have a CPAP Osteoporoses Renal insufficiency TIA (transient ischemic attack) prior to CVA in 2003, none since Type 2 diabetes mellitus ([facility]) 2018 Iván Case PCP Current Outpatient Medications Medication Sig Dispense Refill ondansetron (ZOFRAN) 4 mg tablet Take 1 tablet by mouth once daily as needed for nausea/vomiting (for nausea.). 30 tablet 2 amoxicillin-clavulanic acid (AUGMENTIN) 875-125 mg per tablet Take by mouth. losartan (COZAAR) 50 mg tablet Take 1 tablet by mouth every afternoon. aspirin, enteric coated (JAILENE LOW DOSE ASPIRIN) 81 mg EC tablet Take by mouth. lamoTRIgine (LAMICTAL) 100 mg tablet take 1/2 tablet by mouth once daily to BE TAKEN ALONG WITH 200 MN... (REFER TO PRESCRIPTION NOTES). rosuvastatin (CRESTOR) 10 mg tablet Take 10 mg by mouth every evening. pantoprazole DR (PROTONIX) 40 mg tablet Take 1 tablet by mouth twice daily. 60 tablet 2 doxepin capsule 10 mg Take 10 mg by mouth as needed. alendronate (FOSAMAX) 70 mg tablet Take 70 mg by mouth one time a week. In AM with cup of water on empty stomach. Nothing else by mouth and stay upright for 30 min. cyanocobalamin, vitamin B-12, (VITAMIN B12 ORAL) Take 1 tablet by mouth once daily. cholecalciferol, vitamin D3, (VITAMIN D3 ORAL) Take 1 capsule by mouth once daily. dorzolamide-timolol (COSOPT) 22.3-6.8 mg/mL ophthalmic solution Use 1 Drop in both eyes twice daily. DULoxetine (CYMBALTA) 60 mg capsule Take 60 mg by mouth once daily. metFORMIN (GLUCOPHAGE) 1,000 mg tablet Take 1,000 mg by mouth twice daily with meals. metoprolol tartrate 75 mg tab Take 75 mg by mouth twice daily. amoxicillin (AMOXIL) 500 mg capsule take 4 capsules by mouth 1 hour prior to procedure (Patient not taking: Reported on 07/27/2023) atorvastatin (LIPITOR) 80 mg tablet Take 1 tablet by mouth every evening. dorzolamide (TRUSOPT) 2 % ophthalmic solution Use in eyes. (Patient not taking: Reported on 07/27/2023) doxycycline hyclate (VIBRAMYCIN) 100 mg capsule Take by mouth. (Patient not taking: Reported on 05/13/2023) lamoTRIgine ER (LAMICTAL XR) 250 mg 24 hr tablet Take by mouth once daily. (Patient not taking: Reported on 07/27/2023) oxyCODONE-acetaminophen (PERCOCET) 5-325 mg tablet Take 1-2 tablets by mouth every 8 hours as needed for pain. (Patient not taking: Reported on 09/19/2021) ondansetron (ZOFRAN) 4 mg tablet take 1 tablet by mouth every 8 hours if needed for nausea (Patient not taking: No sig reported) 30 tablet 1 aspirin (JAILENE CHEWABLE ASPIRIN) 81 mg chewable tablet Take 81 mg by mouth once daily. amLODIPine (NORVASC) 10 mg tablet Take 10 mg by mouth once daily. (Patient not taking: Reported on 06/10/2023) rosuvastatin (CRESTOR) 40 mg tablet Take 40 mg by mouth daily at bedtime. (Patient not taking: Reported on 05/13/2023) No current facility-administered medications for this visit. Social Connections: Not on file Weakness of both lower extremities Assessment and Plan Patient is 68 years old man who is complaining of weakness in both legs and frequent falls He has diabetic neuropathy causing lots of imbalance and falls Office Visit on 07/27/23 VITAMIN B12 BLOOD MAGNESIUM BLD CONSULT TO NEUROLOGY CONSULT TO PHYSICAL THERAPY [facility]G(NEURO/NI) Total time in minutes spent with patient, reviewing records, labs, imaging, formulating plan, and documentin minutes with more than 50% of the time spent in patient education/counselling/coordinating care with the patient and /or family. July 27, 2023 Sheryl Bassett M.D. [facility] [place] Department of Neurology There is no data to display for this encounter documented in this encounter [facility] 07-27-2023 Miscellaneous Notes Checked kerwingal and marcia patient not present at time of visit documented in this encounter [facility] 07-26-2023 Note HNO ID: [id number] Author: Karla Sauer PA-C Service: ? Author Type: Physician Manager [employer] Type: Progress Notes Filed: 07/26/2023 11:16 AM Note Text: GASTROENTEROLOGY OUTPATIENT NEW OFFICE VISIT CC: Patient presents with: New Patient HPI: Douglas Callaway JR is a 68 year old male who presents for New Patient for watery diarrhea 4 times per night. Unless he takes an immodium. 1-2 episodes watery stool during the day. This has been going on for about 6 months. He also vomits a few times per week. Previously was diagnosed with gastroparesis, and had a POP with Dr Bray which resolved his symptoms completely. But then over the last 6 months he has developed new onset daily diarrhea, watery stool. As well as occasional nausea and vomiting. - EGD (05/13/23): no abnormality - GES (04/22/23): normal rate of gastric emptying - CT abd/pelvis (04/08/23): No acute findings in the abdomen or pelvis. Biliary stents appear patent and properly positioned. No biliary ductal dilatation. - Pathology (05/13/23): Antral and oxyntic type gastric mucosa with changes of reactive gastropathy and chronic inactive gastritis. Immunohistochemical stain for H. Pylori negative for microorganisms Colonoscopy [address] Bray: Today he reports a resurgence of symptoms - he endorses episodes of nausea/emesis which occur several times per week. He endorses nausea and emesis and irregular/loose bowel movements 3-4 times per night. He also endorses increase in heartburn symptoms. He takes no medications for reflux. He endorses abdominal pain which occurs several times per week and is associated with eating. Current Outpatient Medications Medication Sig dorzolamide (TRUSOPT) 2 % ophthalmic solution Use in eyes. losartan (COZAAR) 50 mg tablet Take 1 tablet by mouth every afternoon. aspirin, enteric coated (JAILENE LOW DOSE ASPIRIN) 81 mg EC tablet Take by mouth. lamoTRIgine (LAMICTAL) 100 mg tablet take 1/2 tablet by mouth once daily to BE TAKEN ALONG WITH 200 MN... (REFER TO PRESCRIPTION NOTES). rosuvastatin (CRESTOR) 10 mg tablet Take 10 mg by mouth every evening. pantoprazole DR (PROTONIX) 40 mg tablet Take 1 tablet by mouth twice daily. lamoTRIgine ER (LAMICTAL XR) 250 mg 24 hr tablet Take by mouth once daily. doxepin capsule 10 mg Take 10 mg by mouth as needed. alendronate (FOSAMAX) 70 mg tablet Take 70 mg by mouth one time a week. In AM with cup of water on empty stomach. Nothing else by mouth and stay upright for 30 min. cyanocobalamin, vitamin B-12, (VITAMIN B12 ORAL) Take 1 tablet by mouth once daily. cholecalciferol, vitamin D3, (VITAMIN D3 ORAL) Take 1 capsule by mouth once daily. dorzolamide-timolol (COSOPT) 22.3-6.8 mg/mL ophthalmic solution Use 1 Drop in both eyes twice daily. DULoxetine (CYMBALTA) 60 mg capsule Take 60 mg by mouth once daily. metFORMIN (GLUCOPHAGE) 1,000 mg tablet Take 1,000 mg by mouth twice daily with meals. metoprolol tartrate 75 mg tab Take 75 mg by mouth twice daily. amoxicillin (AMOXIL) 500 mg capsule take 4 capsules by mouth 1 hour prior to procedure (Patient not taking: Reported on 06/10/2023) amoxicillin-clavulanic acid (AUGMENTIN) 875-125 mg per tablet Take by mouth. (Patient not taking: Reported on 06/10/2023) atorvastatin (LIPITOR) 80 mg tablet Take 1 tablet by mouth every evening. doxycycline hyclate (VIBRAMYCIN) 100 mg capsule Take by mouth. (Patient not taking: Reported on 05/13/2023) oxyCODONE-acetaminophen (PERCOCET) 5-325 mg tablet Take 1-2 tablets by mouth every 8 hours as needed for pain. (Patient not taking: Reported on 09/19/2021) ondansetron (ZOFRAN) 4 mg tablet take 1 tablet by mouth every 8 hours if needed for nausea (Patient not taking: No sig reported) aspirin (JAILENE CHEWABLE ASPIRIN) 81 mg chewable tablet Take 81 mg by mouth once daily. amLODIPine (NORVASC) 10 mg tablet Take 10 mg by mouth once daily. (Patient not taking: Reported on 06/10/2023) rosuvastatin (CRESTOR) 40 mg tablet Take 40 mg by mouth daily at bedtime. (Patient not taking: Reported on 05/13/2023) No current facility-administered medications for this visit. PAST MEDICAL HISTORY Diagnosis Date Bipolar II disorder (HCC) CAD (coronary artery disease) 12/2019 CABG x 3 Carotid artery occlusion with cerebral infarction (HCC) pt denies this; CVA was secondary to HTN CVA (cerebral vascular accident) (HCC) 2003 related to untreated HTN; no residual effects Depression Elevated LFTs Gastroparesis POP procedure 06/11/21 GERD (gastroesophageal reflux disease) Hepatitis A 09/2018 Resolved HTN (hypertension) Hyperlipemia Insomnia CABRERA (obstructive sleep apnea) does not currently have a CPAP Osteoporoses Renal insufficiency TIA (transient ischemic attack) prior to CVA in 2003, none since Type 2 diabetes mellitus (HCC) 2018 Iván Case PCP PAST SURGICAL HISTORY Procedure Laterality Date COLONOSCOPY GEN ANES 09/2017 normal (more content not included)... [facility] 06-10-2023 Note HNO ID: [id number] Author: Germaine Bray MD Service: ? Author Type: Physician Type: Progress Notes Filed: 06/10/2023 11:23 AM Note Text: SURGICAL SERVICES HISTORY AND PHYSICAL EXAMINATION SERVICE DATE: 06/10/2023 SERVICE TIME: 10:52 AM PRIMARY CARE PHYSICIAN: Iván Case MD, MD SUBJECTIVE CHIEF COMPLAINT: gastroparesis HISTORY OF PRESENT ILLNESS: Mr. Callaway is a 68 year old male with a PMH of CAD (triple vessel CABG 12/2019), carotid artery disease with cerebral infarction/CVA/TIA, type 2 DM (A1c 6.8; 18 months), depression/bipolar, gastroparesis, HTN, CABRERA, and glacoma who presents for follow up of gastroparesis. Today the patient endorses watery nocturnal diarrhea that he currently controls with PRN imodium that he purchased OTC. Nausea has resolved. He does continue with intermittent emesis that is unrelated to oral intake. The emesis is watery with food particles in it and occurs with a particular fullness. He and his report he has new lower extremity weakness and essential tremor of his hands which have progressively worsened. I encouraged him to touch base with his PCP regarding these new issues which could be secondary to neurologic issue versus chronic diarrhea. Per my last clinic note on 04/06/23: He underwent POP procedure on 06/11/21. When I last saw him in clinic on 07/08/21 he was doing well. He never followed up after that visit. Today he reports a resurgence of symptoms - he endorses episodes of nausea/emesis which occur several times per week. He endorses nausea and emesis and irregular/loose bowel movements 3-4 times per night. He also endorses increase in heartburn symptoms. He takes no medications for reflux. He endorses abdominal pain which occurs several times per week and is associated with eating. He was hospitalized for gallstone pancreatitis and underwent Lap CCx on 09/02/21. IOC demonstrated a hepatic duct leak. Then Dr. Yarbrough of GI performed an ERCP with sphincterotomy and stent placement. Pathology demonstrated acute and chronic hemorrhagic and ulcerated cholecystitis and cholelithiasis. Work up: - EGD (05/13/23): no abnormality - GES (04/22/23): normal rate of gastric emptying - CT abd/pelvis (04/08/23): No acute findings in the abdomen or pelvis. Biliary stents appear patent and properly positioned. No biliary ductal dilatation. - Pathology (05/13/23): Antral and oxyntic type gastric mucosa with changes of reactive gastropathy and chronic inactive gastritis. Immunohistochemical stain for H. Pylori negative for microorganisms - EGD 08/27/20: large gastric bezoar - GES 10/21/20: no discernible emptying with severe gastroparesis - Smartll: GET 4:29 minutes; all other emptying times are WNL consistent with borderline abnormal gastric transit time PAST MEDICAL HISTORY: PAST MEDICAL HISTORY Diagnosis Date Bipolar II disorder (HCC) CAD (coronary artery disease) 12/2019 CABG x 3 Carotid artery occlusion with cerebral infarction (HCC) pt denies this; CVA was secondary to HTN CVA (cerebral vascular accident) (HCC) 2003 related to untreated HTN; no residual effects Depression Elevated LFTs Gastroparesis POP procedure 06/11/21 GERD (gastroesophageal reflux disease) Hepatitis A 09/2018 Resolved HTN (hypertension) Hyperlipemia Insomnia CABRERA (obstructive sleep apnea) does not currently have a CPAP Osteoporoses Renal insufficiency TIA (transient ischemic attack) prior to CVA in 2003, none since Type 2 diabetes mellitus (HCC) 2018 Iván Case PCP PAST SURGICAL HISTORY: PAST SURGICAL HISTORY Procedure Laterality Date COLONOSCOPY GEN ANES 09/2017 normal per patient CORONARY ART/GRFT ANGIO ARIADNA 12/15/2019 [facility] ; CABG x 3 EGD 08/2020 at [facility] EGD WITH BIOPSY(S) 05/13/2023 Dr. Fajardo ERCP STENT PLACEMENT BILIARY/PANCREATIC DUCT 09/02/2021 Dr Yarbrough GI TRANSIT AND PRES CARLEY WIRELESS CAPSULE W/INTERP 01/08/2021 Smart Pill-delayed gastric emptying; INCISIONAL BIOPSY SKIN SINGLE LESION biopsy of mass over right eye; benign LAPAROSCOPIC CHOLECYSTECTOMY 09/02/2021 PER ORAL PYLOROMYOTOMY (POP) PROCEDURE (COMP [id number]) 06/11/2021 Dr. Bray REMV CATARACT EXTRACAP,INSERT LENS Bilateral 2016 SHOULDER SURGERY HX TONSILLECTOMY HX FAMILY HISTORY: FAMILY HISTORY Problem Relation Age of Onset other (pulmonary fibrosis) Mother Colon Cancer Father SOCIAL HISTORY: Social History Tobacco Use Smoking status: Former Types: Cigarettes Smokeless tobacco: Never Tobacco comments: during college Vaping Use Vaping Use: Never used Substance Use Topics Alcohol use: Yes Alcohol/week: 12.0 standard drinks of alcohol Types: 12 Cans of Beer (12oz) per week Drug use: Never MEDICATIONS: Current Outpatient Medications Medication Sig atorvastatin (LIPITOR) 80 mg tablet Take 1 tablet by mouth every evening. dorzolamide (TRUSOPT) 2 % ophthalmic solutio (more content not included)... [facility] 05-13-2023 History and physical note HISTORY AND PHYSICAL EXAMINATION Patient: Douglas DINERO: 1955 SERVICE DATE: 05/13/2023 SERVICE TIME: 7:27 AM PRIMARY CARE PHYSICIAN: Iván Case MD, MD SURGEON: Dr. Bray ANESTHESIA: mac DIAGNOSIS: Gastroparesis [K31.84] Heartburn [R12] PROCEDURE: EGD Subjective The reason for this visit is to perform a comprehensive review of the patient's past medical history, assess their current health status and obtain any additional testing required based on anesthesia guidelines. We will also identify any potential anesthesia problems or contraindications to the planned procedure. CHIEF COMPLAINT: EGD HPI: This is a 68-year-old male who presents for EGD. Hx gastroparesis, s/p POP 2020. Reports nausea and vomiting which occur several times per week onset a few months ago. Also has intermittent heartburn. Denies abdominal pain. METS: Climb a flight of stairs or walk up a hill (5.50 METs) Patient denies any chest pain or shortness of breath with above physical activity. FUNCTIONAL STATUS: Independent PAST MEDICAL HISTORY Diagnosis Date Bipolar II disorder (HCC) CAD (coronary artery disease) 12/2019 CABG x 3 Carotid artery occlusion with cerebral infarction (HCC) pt denies this; CVA was secondary to HTN CVA (cerebral vascular accident) (HCC) 2003 related to untreated HTN; no residual effects Depression Elevated LFTs Gastroparesis POP procedure 06/11/21 GERD (gastroesophageal reflux disease) Hepatitis A 09/2018 Resolved HTN (hypertension) Hyperlipemia Insomnia CABRERA (obstructive sleep apnea) does not currently have a CPAP Osteoporoses Renal insufficiency TIA (transient ischemic attack) prior to CVA in 2003, none since Type 2 diabetes mellitus (HCC) 2018 Iván Case PCP PAST SURGICAL HISTORY Procedure Laterality Date COLONOSCOPY GEN ANES 09/2017 normal per patient CORONARY ART/GRFT ANGIO S&I 12/15/2019 [facility] ; CABG x 3 EGD 08/2020 at [facility] ERCP STENT PLACEMENT BILIARY/PANCREATIC DUCT 09/02/2021 Dr Yarbrough GI TRANSIT & PRES CARLEY WIRELESS CAPSULE W/INTERP 01/08/2021 Smart Pill-delayed gastric emptying; INCISIONAL BIOPSY SKIN SINGLE LESION biopsy of mass over right eye; benign LAPAROSCOPIC CHOLECYSTECTOMY 09/02/2021 PER ORAL PYLOROMYOTOMY (POP) PROCEDURE (COMP [id number]) 06/11/2021 Dr. Tomy REMV CATARACT EXTRACAP,INSERT LENS Bilateral 2016 SHOULDER SURGERY HX TONSILLECTOMY HX FAMILY HISTORY Problem Relation Age of Onset other (pulmonary fibrosis) Mother Colon Cancer Father Social History Tobacco Use Smoking status: Former Types: Cigarettes Smokeless tobacco: Never Tobacco comments: during college Vaping Use Vaping Use: Never used Substance Use Topics Alcohol use: Yes Alcohol/week: 12.0 standard drinks of alcohol Types: 12 Cans of Beer (12oz) per week Drug use: Never Prior to Admission medications as of 05/13/23 1425 Medication Sig Last Dose Taking amoxicillin-clavulanic acid (AUGMENTIN) 875-125 mg per tablet Take by mouth. Yes atorvastatin (LIPITOR) 80 mg tablet Take 1 tablet by mouth every evening. 05/09/2023 Yes losartan (COZAAR) 50 mg tablet Take 1 tablet by mouth every afternoon. 05/13/2023 Yes aspirin, enteric coated (JAILENE LOW DOSE ASPIRIN) 81 mg EC tablet Take by mouth. Yes aspirin ([employer] CHEWABLE ASPIRIN) 81 mg chewable tablet Take 81 mg by mouth once daily. 05/12/2023 Yes metFORMIN (GLUCOPHAGE) 1,000 mg tablet Take 1,000 mg by mouth twice daily with meals. 05/12/2023 Yes metoprolol tartrate 75 mg tab Take 75 mg by mouth twice daily. 05/13/2023 Yes amoxicillin (AMOXIL) 500 mg capsule take 4 capsules by mouth 1 hour prior to procedure dorzolamide (TRUSOPT) 2 % ophthalmic solution Use in eyes. doxycycline hyclate (VIBRAMYCIN) 100 mg capsule Take by mouth. Patient not taking: Reported on 05/13/2023 Not Taking lamoTRIgine (LAMICTAL) 100 mg tablet take 1/2 tablet by mouth once daily to BE TAKEN ALONG WITH 200 MN... (REFER TO PRESCRIPTION NOTES). 05/10/2023 rosuvastatin (CRESTOR) 10 mg tablet Take 10 mg by mouth every evening. 05/10/2023 lamoTRIgine ER (LAMICTAL XR) 250 mg 24 hr tablet Take by mouth once daily. 05/10/2023 doxepin capsule 10 mg Take 10 mg by mouth as needed. alendronate (FOSAMAX) 70 mg tablet Take 70 mg by mouth one time a week. In AM with cup of water on empty stomach. Nothing else by mouth and stay upright for 30 min. 05/10/[address] (PROTONIX) 40 mg tablet Take 1 tablet by mouth twice daily for 54 doses. Patient not taking: Reported on 04/06/2023 oxyCODONE-acetaminophen (PERCOCET) 5-325 mg tablet Take 1-2 tablets by mouth every 8 hours as needed for pain. Patient not taking: Reported on 09/19/2021 ondansetron (ZOFRAN) 4 mg tablet take 1 tablet by mouth every 8 hours if needed for nausea Patient not taking: No sig reported cyanocobalamin, vitamin B-12, (VITAMIN B12 ORAL) Take 1 tablet by mouth once daily. Unknown cholecalciferol, vitamin D3, (VITAMIN D3 ORAL) Take 1 capsule by mouth once daily. Unknown amLODIPine (NORVASC) 10 mg tablet Take 10 mg by mouth once daily. Patient not taking: Reported on 05/13/2023 Not Taking dorzolamide-timolol (COSOPT) 22.3-6.8 mg/mL ophthalmic solution Use 1 Drop in both eyes twice daily. DULoxetine (CYMBALTA) 60 mg capsule Take 60 mg by mouth once daily. 05/10/2023 rosuvastatin (CRESTOR) 40 mg tablet Take 40 mg by mouth daily at bedtime. Patient not taking: Reported on 05/13/2023 Not Taking ALLERGIES No Known Allergies COMPLETE REVIEW OF SYSTEMS: GENERAL: No weight loss, malaise or fevers RESPIRATORY: CABRERA-no CPAP. Denies coughing, wheezing or SOB CARDIOVASCULAR: HTN, HLD, CAD-CABG 32019, Dr. Tian cardiology follows yearly. Denies chest pain, palpitations, or CHF GI: Denies abdominal pain, nausea or vomiting : Denies urinary complaints MUSCULOSKELETAL: Denies joint pain, muscle pain, or back pain PSYCH: Anxiety, depression, bipolar disorder ENDOCRINE: DM-on Metformin, last A1C 7.1 2020. Denies thyroid problems NEURO: Hx CVA 2004 no residual. Denies headaches, syncope, seizures, or tremors HEME/ONC: Denies cancer or bleeding/clotting disorders Objective PHYSICAL EXAM: CONSTITUTIONAL: Well-developed, NAD MENTAL STATUS: alert, oriented to person, place and time SKIN: Warm, dry, no diaphoresis HEENT: Normocephalic, atraumatic, no lymphadenopathy LUNGS: Lungs clear to auscultation, Good diaphragmatic excursion CARDIAC: RRR no murmur ABDOMEN: Abdomen soft, non-tender, BS x 4 EXTREMITIES: Extremities normal, no deformities, edema, clubbing or skin discoloration. BP 141/66 Pulse (!) 46 Temp 36.2 C (97.2 F) (Temporal) Resp 16 Ht 172.7 cm (5' 8) Wt 75.3 kg (166 lb) SpO2 98% BMI 25.24 kg/m Body mass index is 25.24 kg/m . ANESTHESIA FINDINGS: Intubation History: No history of difficult intubation. Significant anesthesia considerations: None. FAMILY PROBLEMS WITH ANESTHESIA: No history of adverse anesthetic event Assessment/Plan Patient has the following medical conditions which may affect nikhil-operative course Problem List Items Addressed This Visit Cardiovascular Primary hypertension Current Assessment & Plan tx with metoprolol Relevant Medications atorvastatin (LIPITOR) 80 mg tablet losartan (COZAAR) 50 mg tablet rosuvastatin (CRESTOR) 10 mg tablet Pulmonary CABRERA (obstructive sleep apnea) Current Assessment & Plan No CPAP Endocrinology Diabetes mellitus without complication (HCC) Current Assessment & Plan tx with Metformin Relevant Medications atorvastatin (LIPITOR) 80 mg tablet losartan (COZAAR) 50 mg tablet aspirin, enteric coated (JAILENE LOW DOSE ASPIRIN) 81 mg EC tablet rosuvastatin (CRESTOR) 10 mg tablet Other Preop examination Current Assessment & Plan medical conditions which may affect the nikhil-operative course were addressed in the visit today. Other Visit Diagnoses Gastroparesis Relevant Orders EGD DIAGNOSTIC Heartburn Relevant Orders EGD DIAGNOSTIC -Pre-op testing-medical conditions which may affect the nikhil-operative course were addressed in the visit today. I spent a total of 25 minutes on the date of the service which included preparing to see the patient, [id number] patient care, completing clinical documentation, obtaining and/or reviewing separately obtained history, and performing a medically appropriate examination. SIGNATURE: Tiffany Ramey APRN.CNP PATIENT NAME: Douglas Callaway JR DATE: May 13, 2023 TIME: 7:27 AM PAGER/CONTACT #: documented in this encounter [facility] 05-13-2023 Surgical operation note OPERATIVE/PROCEDURE REPORT LOG ID: [id number] Surgery/Procedure Date: Incision/Procedure Start Time: 3:21 PM Incision Close/Procedure End Time: 3:27 PM Surgeon(s)/Proceduralist(s) and Manager College(s): Surgeon(s) and Role: * Germaine Bray MD - Proceduralist No Additional Staff PREOPERATIVE DIAGNOSIS: 1. Nausea 2. Emesis 3. Heartburn POSTOPERATIVE DIAGNOSIS: 1. Nausea 2. Emesis 3. Heartburn 4. Gastritis of the antrum and body COMPLICATIONS: None. Procedure(s): 1. Esophagogastroduodenoscopy (EGD) with cold forceps biopsies of the gastric antrum/body Anesthesia: * No anesthesia type entered * MAC by Anesthesiology without complications Operative Findings: Diagnostic EGD demonstrated gastritis Operative Indication: Douglas Callaway JR is a 68 year old male who presents for EGD due to new symptoms of heartburn, nausea, and emesis. We discussed the risks, benefits, alternatives, and potential complications, and the patient agreed to proceed. Procedure Details: The patient was brought to the endoscopic suite in stable condition. The preprocedural checklist was completed to the satisfaction of the entire team and verified with the patient. We had previously completed the consent process after discussing the risks and benefits of the procedure, which included, but were not limited to, the risk of hemorrhage, need for blood transfusion, and the possibility of perforation. Once he was induced by Anesthesia and appropriately sedated, the Olympus gastroscope was entered through the mouth. I was easily able to intubate the esophagus. The esophageal portion of the examination was positive for a slightly tortuous esophagus but, otherwise, was within normal limits. The Z-line was measured at 39 centimeters from the bite protector. The diaphragmatic hiatus was measured at 39-cm from the bite protector. I then entered the stomach, which demonstrated moderate amount of gastritis of the antrum and body. The patient had some gastric secretions, which were suctioned out using the gastroscope. I did retroflex the scope, which showed a normal appearing GE junction and fundus from that angle. Retroflex view showed a Hill grade 1. I then intubated the pylorus into the duodenal bulb, examining both the anterior and posterior portions of the duodenal bulb and then into the second portion of the duodenum. That part of the procedure was within normal limits. Once back in the stomach, I then performed 6 separate cold forceps biopsies in the antrum and body to be sent for H.pylorus. This was done with minimal bleeding. I ensured we had good hemostasis. Gastric insufflation was removed using suction. The gastroscope was removed through the mouth. The patient tolerated the procedure very well and was returned to recovery room in stable condition. Recommendations: follow up in clinic. Take PPI twice daily Estimated Blood Loss: minimal Specimens: gastric antrum Implantable Devices: none Drains: None Complications: None I performed the procedure independently SIGNATURE: Germaine Bray MD PATIENT NAME: Douglas Callaway JR DATE: May 13, 2023 TIME: 3:28 PM PAGER/CONTACT #: documented in this encounter [facility] 04-22-2023 Note HNO ID: [id number] Author: Rowena Silvestre RT(R) Service: Nuclear Medicine Author Type: Technologist Type: Progress Notes Filed: 04/22/2023 9:46 AM Note Text: RADIOLOGY SERVICE PROGRESS NOTE SERVICE DATE: 04/22/2023 SERVICE TIME: 07:45 AM PATIENT IDENTITY VERIFICATION COMPLETED USING TWO (2) STANDARD IDENTIFIERS: Name and Date of confirmed by patient verbally FALL SCREENING: Has the patient had 2 falls in the last year or 1 fall with injury or currently using an Ambulatory Assistive Device (Walker, Cane, Wheelchair, Crutches, etc.)? No PATIENT GENDER DATA: .male ALLERGIES: Reviewed and unchanged MEDICATIONS REVIEWED: Yes PATIENT RELEVANT IMPLANT DATA REVIEWED: Not Applicable CREATININE: Creatinine Date Value Ref Range Status 04/08/2023 1.27 (H) 0.73 - 1.22 mg/dL Final 06/12/2021 1.12 0.73 - 1.22 mg/dL Final 06/11/2021 1.17 0.73 - 1.22 mg/dL Final Estimated Glomerular Filtration Rate Date Value Ref Range Status 04/08/2023 61 >=60 mL/min/1.73m? Final Comment: Estimated Glomerular Filtration Rate (eGFR) is calculated using the 2020 CKD-EPI creatinine equation. This equation utilizes serum creatinine, sex, and age as parameters. The creatinine assay has traceable calibration to isotope dilution-mass spectrometry. Refer to KDIGO guidelines for clinical interpretation. In patients with unstable renal function, e.g. those with acute kidney injury, the eGFR may not accurately reflect actual GFR. eGFR- Date Value Ref Range Status 06/12/2021 >60 Final P.O.C.T. RESULTS: N/A April 22, [address] PERFORMED: No IV SITE: MI only - not applicable, oral or physician administered agents given to patient POST EXAM PIV STATUS: Not applicable PROCEDURE TYPE: NM GET: 1.1 mCi Tc99m SULFUR COLLOID was administered orally via 4 ounces of Egg Beaters,1 piece of toast, 1/2 ounce of jelly with 4 ounces of water orally ADMINISTRATION TIME: 07:50 PATIENT DISCHARGED TO: Ambulatory patient, left MI department area. A Diagnostic radioactive procedure has taken place, with no further precautions necessary other than routine body substance precautions. More information regarding radiation safety can be found using this link: [email or web address]%20Nuclear%20Medicine %[email or web address] SIGNATURE: RT Pratima(R) PATIENT NAME: Douglas Callaway JR DATE: April 22, 2023 TIME: 9:45 AM PAGER/CONTACT #: [facility] 04-22-2023 History of Present illness Narrative RADIOLOGY SERVICE PROGRESS NOTE SERVICE DATE: 04/22/2023 SERVICE TIME: 07:45 AM PATIENT IDENTITY VERIFICATION COMPLETED USING TWO (2) STANDARD IDENTIFIERS: Name and Date of confirmed by patient verbally FALL SCREENING: Has the patient had 2 falls in the last year or 1 fall with injury or currently using an Ambulatory Assistive Device (Walker, Cane, Wheelchair, Crutches, etc.)? No PATIENT GENDER DATA: .male ALLERGIES: Reviewed and unchanged MEDICATIONS REVIEWED: Yes PATIENT RELEVANT IMPLANT DATA REVIEWED: Not Applicable CREATININE: Creatinine Date Value Ref Range Status 04/08/2023 1.27 (H) 0.73 - 1.22 mg/dL Final 06/12/2021 1.12 0.73 - 1.22 mg/dL Final 06/11/2021 1.17 0.73 - 1.22 mg/dL Final Estimated Glomerular Filtration Rate Date Value Ref Range Status 04/08/2023 61 >=60 mL/min/1.73m Final Comment: Estimated Glomerular Filtration Rate (eGFR) is calculated using the 2020 CKD-EPI creatinine equation. This equation utilizes serum creatinine, sex, and age as parameters. The creatinine assay has traceable calibration to isotope dilution-mass spectrometry. Refer to KDIGO guidelines for clinical interpretation. In patients with unstable renal function, e.g. those with acute kidney injury, the eGFR may not accurately reflect actual GFR. eGFR- Date Value Ref Range Status 06/12/2021 >60 Final P.O.C.T. RESULTS: N/A April 22, [address] PERFORMED: No IV SITE: NM only - not applicable, oral or physician administered agents given to patient POST EXAM PIV STATUS: Not applicable PROCEDURE TYPE: NM GET: 1.1 mCi Tc99m SULFUR COLLOID was administered orally via 4 ounces of Egg Beaters,1 piece of toast, 1/2 ounce of jelly with 4 ounces of water orally ADMINISTRATION TIME: 07:50 PATIENT DISCHARGED TO: Ambulatory patient, left [place] department area. A Diagnostic radioactive procedure has taken place, with no further precautions necessary other than routine body substance precautions. More information regarding radiation safety can be found using this link: [email or web address] 20-%20Diagnostic%20Nuclear%20Medicine% 20Procedures.pdf SIGNATURE: RT Pratima(Jesús) PATIENT NAME: Douglas Callaway JR DATE: April 22, 2023 TIME: 9:45 AM PAGER/CONTACT #: documented in this encounter [facility] 04-09-2023 Miscellaneous Notes I spoke with patient and scheduled EGD for 05/13/2023 @ 3:00 pm. Prep/instructions given verbally and mailed to the patient. Patient also scheduled for a follow up 06/10/2023. Spring Reilly MA Left voicemail for patient to call the office to schedule EGD then follow up in office. Spring Reilly MA documented in this encounter [facility] 04-08-2023 Note HNO ID: [id number] Author: Vianca Martinez RT(R) Service: ? Author Type: Digital Production Operator Type: Progress Notes Filed: 04/08/2023 3:37 PM Note Text: Radiology Service Progress Note DATE OF SERVICE: April 08, 2023 TIME: 3:37 PM PATIENT IDENTITY VERIFICATION COMPLETED USING TWO (2) STANDARD IDENTIFIERS: Name and Date of confirmed by patient verbally. FALL SCREENING: Has the patient had 2 falls in the last year or 1 fall with injury or currently using an Ambulatory Assistive Device (Walker, Cane, Wheelchair, Crutches, etc.)? No PATIENT GENDER DATA: Male PATIENT RELEVANT IMPLANT DATA REVIEWED: Yes ALLERGIES: Reviewed and unchanged CONTRAST ALLERGY: NO. EXAM: CT -CONTRAST INDUCED NEPHROPATHY RISK FACTORS: Patient age > 60 years CREATININE: Creatinine Date Value Ref Range Status 04/08/2023 1.27 (H) 0.73 - 1.22 mg/dL Final 06/12/2021 1.12 0.73 - 1.22 mg/dL Final 06/11/2021 1.17 0.73 - 1.22 mg/dL Final Estimated Glomerular Filtration Rate Date Value Ref Range Status 04/08/2023 61 >=60 mL/min/1.73m? Final Comment: Estimated Glomerular Filtration Rate (eGFR) is calculated using the 2020 CKD-EPI creatinine equation. This equation utilizes serum creatinine, sex, and age as parameters. The creatinine assay has traceable calibration to isotope dilution-mass spectrometry. Refer to KDIGO guidelines for clinical interpretation. In patients with unstable renal function, e.g. those with acute kidney injury, the eGFR may not accurately reflect actual GFR. eGFR- Date Value Ref Range Status 06/12/2021 >60 Final P.O.C.T. RESULTS: POC done: Yes, See Lab Tab April 08, 2023 TREATMENT: N/A PERIPHERAL IV DATA: Ambulatory: A peripheral IV was started in the Left antecubital site with a Angio cath: 22 gauge. RADIOLOGY DEPARTMENT: CT; Exam(s) Completed: Abdomen/Pelvis SIGNATURE: RT Christine(R) PATIENT NAME: Douglas Callaway JR DATE: April 08, 2023 TIME: 3:37 PM [facility] 04-08-2023 History of Present illness Narrative Radiology Service Progress Note DATE OF SERVICE: April 08, 2023 TIME: 3:37 PM PATIENT IDENTITY VERIFICATION COMPLETED USING TWO (2) STANDARD IDENTIFIERS: Name and Date of confirmed by patient verbally. FALL SCREENING: Has the patient had 2 falls in the last year or 1 fall with injury or currently using an Ambulatory Assistive Device (Walker, Cane, Wheelchair, Crutches, etc.)? No PATIENT GENDER DATA: Male PATIENT RELEVANT IMPLANT DATA REVIEWED: Yes ALLERGIES: Reviewed and unchanged CONTRAST ALLERGY: NO. EXAM: CT -CONTRAST INDUCED NEPHROPATHY RISK FACTORS: Patient age > 60 years CREATININE: Creatinine Date Value Ref Range Status 04/08/2023 1.27 (H) 0.73 - 1.22 mg/dL Final 06/12/2021 1.12 0.73 - 1.22 mg/dL Final 06/11/2021 1.17 0.73 - 1.22 mg/dL Final Estimated Glomerular Filtration Rate Date Value Ref Range Status 04/08/2023 61 >=60 mL/min/1.73m Final Comment: Estimated Glomerular Filtration Rate (eGFR) is calculated using the 2020 CKD-EPI creatinine equation. This equation utilizes serum creatinine, sex, and age as parameters. The creatinine assay has traceable calibration to isotope dilution-mass spectrometry. Refer to KDIGO guidelines for clinical interpretation. In patients with unstable renal function, e.g. those with acute kidney injury, the eGFR may not accurately reflect actual GFR. eGFR- Date Value Ref Range Status 06/12/2021 >60 Final P.O.C.T. RESULTS: POC done: Yes, See Lab Tab April 08, 2023 TREATMENT: N/A PERIPHERAL IV DATA: Ambulatory: A peripheral IV was started in the Left antecubital site with a Angio cath: 22 gauge. RADIOLOGY DEPARTMENT: CT; Exam(s) Completed: Abdomen/Pelvis SIGNATURE: RT Christine(R) PATIENT NAME: Douglas Callaway JR DATE: April 08, 2023 TIME: 3:37 PM documented in this encounter [facility] 04-06-2023 Note HNO ID: [id number] Author: Germaine Bray MD Service: ? Author Type: Physician Type: Progress Notes Filed: 04/06/2023 12:52 PM Note Text: SURGICAL SERVICES HISTORY AND PHYSICAL EXAMINATION SERVICE DATE: 04/06/2023 SERVICE TIME: 12:33 PM PRIMARY CARE PHYSICIAN: Iván Case SUBJECTIVE CHIEF COMPLAINT: gastroparesis HISTORY OF PRESENT ILLNESS: Mr. Callaway is a 68 year old male with a PMH of CAD (triple vessel CABG 12/2019), carotid artery disease with cerebral infarction/CVA/TIA, type 2 DM (A1c 6.8; 18 months), depression/bipolar, gastroparesis, HTN, CABRERA, and glacoma who presents for follow up of gastroparesis. He underwent POP procedure on 06/11/21. When I last saw him in clinic on 07/08/21 he was doing well. He never followed up after that visit. Today he reports a resurgence of symptoms - he endorses episodes of nausea/emesis which occur several times per week. He endorses nausea and emesis and irregular/loose bowel movements 3-4 times per night. He also endorses increase in heartburn symptoms. He takes no medications for reflux. He endorses abdominal pain which occurs several times per week and is associated with eating. He was hospitalized for gallstone pancreatitis and underwent Lap CCx on 09/02/21. IOC demonstrated a hepatic duct leak. Then Dr. Yarbrough of GI performed an ERCP with sphincterotomy and stent placement. Pathology demonstrated acute and chronic hemorrhagic and ulcerated cholecystitis and cholelithiasis. Work up: - EGD 08/27/20: large gastric bezoar - GES 10/21/20: no discernible emptying with severe gastroparesis - Smartll: GET 4:29 minutes; all other emptying times are WNL consistent with borderline abnormal gastric transit time PAST MEDICAL HISTORY: PAST MEDICAL HISTORY Diagnosis Date Bipolar II disorder (HCC) CAD (coronary artery disease) 12/2019 CABG x 3 Carotid artery occlusion with cerebral infarction (HCC) pt denies this; CVA was secondary to HTN CVA (cerebral vascular accident) (HCC) 2003 related to untreated HTN; no residual effects Depression Elevated LFTs Gastroparesis POP procedure 06/11/21 GERD (gastroesophageal reflux disease) Hepatitis A 09/2018 Resolved HTN (hypertension) Hyperlipemia Insomnia CABRERA (obstructive sleep apnea) does not currently have a CPAP Osteoporoses Renal insufficiency TIA (transient ischemic attack) prior to CVA in 2003, none since Type 2 diabetes mellitus (HCC) 2018 Iván Case PCP PAST SURGICAL HISTORY: PAST SURGICAL HISTORY Procedure Laterality Date COLONOSCOPY GEN ANES 09/2017 normal per patient CORONARY ART/GRFT ANGIO ARIADNA 12/15/2019 [facility] ; CABG x 3 EGD 08/2020 at [facility] ERCP STENT PLACEMENT BILIARY/PANCREATIC DUCT 09/02/2021 Dr Yarbrough GI TRANSIT AND PRES CARLEY WIRELESS CAPSULE W/INTERP 01/08/2021 Smart Pill-delayed gastric emptying; INCISIONAL BIOPSY SKIN SINGLE LESION biopsy of mass over right eye; benign LAPAROSCOPIC CHOLECYSTECTOMY 09/02/2021 PER ORAL PYLOROMYOTOMY (POP) PROCEDURE (COMP 23537) 06/11/2021 Dr. Bray REMV CATARACT EXTRACAP,INSERT LENS Bilateral 2016 SHOULDER SURGERY HX 3 TONSILLECTOMY HX FAMILY HISTORY: FAMILY HISTORY Problem Relation Age of Onset other (pulmonary fibrosis) Mother Colon Cancer Father SOCIAL HISTORY: Social History Tobacco Use Smoking status: Former Types: Cigarettes Smokeless tobacco: Never Tobacco comments: during college Vaping Use Vaping Use: Never used Substance Use Topics Alcohol use: Yes Alcohol/week: 12.0 standard drinks of alcohol Types: 12 Cans of Beer (12oz) per week Drug use: Never MEDICATIONS: Current Outpatient Medications Medication Sig lamoTRIgine ER (LAMICTAL XR) 250 mg 24 hr tablet Take by mouth once daily. doxepin capsule 10 mg Take 10 mg by mouth as needed. alendronate (FOSAMAX) 70 mg tablet Take 70 mg by mouth one time a week. In AM with cup of water on empty stomach. Nothing else by mouth and stay upright for 30 min. cyanocobalamin, vitamin B-12, (VITAMIN B12 ORAL) Take 1 tablet by mouth once daily. cholecalciferol, vitamin D3, (VITAMIN D3 ORAL) Take 1 capsule by mouth once daily. aspirin (JAILENE CHEWABLE ASPIRIN) 81 mg chewable tablet Take 81 mg by mouth once daily. amLODIPine (NORVASC) 10 mg tablet Take 10 mg by mouth once daily. dorzolamide-timolol (COSOPT) 22.3-6.8 mg/mL ophthalmic solution Use 1 Drop in both eyes twice daily. DULoxetine (CYMBALTA) 60 mg capsule Take 60 mg by mouth once daily. metFORMIN (GLUCOPHAGE) 1,000 mg tablet Take 1,000 mg by mouth twice daily with meals. rosuvastatin (CRESTOR) 40 mg tablet Take 40 mg by mouth daily at bedtime. metoprolol tartrate 75 mg tab Take 75 mg by mouth twice daily. pantoprazole DR (PROTONIX) 40 mg tablet Take 1 tablet by mouth twice daily for 54 doses. (Patient not taking: Reported on 04/06/2023) oxyCODONE-acetaminophen (PERCOCET) 5-325 mg tablet Take 1-2 t (more content not included)... [facility] 04-06-2023 History of Present illness Narrative SURGICAL SERVICES HISTORY AND PHYSICAL EXAMINATION SERVICE DATE: 04/06/2023 SERVICE TIME: 12:33 PM PRIMARY CARE PHYSICIAN: Iván Case SUBJECTIVE CHIEF COMPLAINT: gastroparesis HISTORY OF PRESENT ILLNESS: Mr. Callaway is a 68 year old male with a PMH of CAD (triple vessel CABG 12/2019), carotid artery disease with cerebral infarction/CVA/TIA, type 2 DM (A1c 6.8; 18 months), depression/bipolar, gastroparesis, HTN, CABRERA, and glacoma who presents for follow up of gastroparesis. He underwent POP procedure on 06/11/21. When I last saw him in clinic on 07/08/21 he was doing well. He never followed up after that visit. Today he reports a resurgence of symptoms - he endorses episodes of nausea/emesis which occur several times per week. He endorses nausea and emesis and irregular/loose bowel movements 3-4 times per night. He also endorses increase in heartburn symptoms. He takes no medications for reflux. He endorses abdominal pain which occurs several times per week and is associated with eating. He was hospitalized for gallstone pancreatitis and underwent Lap CCx on 09/02/21. IOC demonstrated a hepatic duct leak. Then Dr. Yarbrough of GI performed an ERCP with sphincterotomy and stent placement. Pathology demonstrated acute and chronic hemorrhagic and ulcerated cholecystitis and cholelithiasis. Work up: - EGD 08/27/20: large gastric bezoar - GES 10/21/20: no discernible emptying with severe gastroparesis - Smartll: GET 4:29 minutes; all other emptying times are WNL consistent with borderline abnormal gastric transit time PAST MEDICAL HISTORY: PAST MEDICAL HISTORY Diagnosis Date Bipolar II disorder (HCC) CAD (coronary artery disease) 12/2019 CABG x 3 Carotid artery occlusion with cerebral infarction (HCC) pt denies this; CVA was secondary to HTN CVA (cerebral vascular accident) (HCC) 2003 related to untreated HTN; no residual effects Depression Elevated LFTs Gastroparesis POP procedure 06/11/21 GERD (gastroesophageal reflux disease) Hepatitis A 09/2018 Resolved HTN (hypertension) Hyperlipemia Insomnia CABRERA (obstructive sleep apnea) does not currently have a CPAP Osteoporoses Renal insufficiency TIA (transient ischemic attack) prior to CVA in 2003, none since Type 2 diabetes mellitus (HCC) 2018 Iván Case PCP PAST SURGICAL HISTORY: PAST SURGICAL HISTORY Procedure Laterality Date COLONOSCOPY GEN ANES 09/2017 normal per patient CORONARY ART/GRFT ANGIO S&I 12/15/2019 [facility] ; CABG x 3 EGD 08/2020 at [facility] ERCP STENT PLACEMENT BILIARY/PANCREATIC DUCT 09/02/2021 Dr Yarbrough GI TRANSIT & PRES CARLEY WIRELESS CAPSULE W/INTERP 01/08/2021 Smart Pill-delayed gastric emptying; INCISIONAL BIOPSY SKIN SINGLE LESION biopsy of mass over right eye; benign LAPAROSCOPIC CHOLECYSTECTOMY 09/02/2021 PER ORAL PYLOROMYOTOMY (POP) PROCEDURE (COMP 41701) 06/11/2021 Dr. Bray REMV CATARACT EXTRACAP,INSERT LENS Bilateral 2016 SHOULDER SURGERY HX 3 TONSILLECTOMY HX FAMILY HISTORY: FAMILY HISTORY Problem Relation Age of Onset other (pulmonary fibrosis) Mother Colon Cancer Father SOCIAL HISTORY: Social History Tobacco Use Smoking status: Former Types: Cigarettes Smokeless tobacco: Never Tobacco comments: during college Vaping Use Vaping Use: Never used Substance Use Topics Alcohol use: Yes Alcohol/week: 12.0 standard drinks of alcohol Types: 12 Cans of Beer (12oz) per week Drug use: Never MEDICATIONS: Current Outpatient Medications Medication Sig lamoTRIgine ER (LAMICTAL XR) 250 mg 24 hr tablet Take by mouth once daily. doxepin capsule 10 mg Take 10 mg by mouth as needed. alendronate (FOSAMAX) 70 mg tablet Take 70 mg by mouth one time a week. In AM with cup of water on empty stomach. Nothing else by mouth and stay upright for 30 min. cyanocobalamin, vitamin B-12, (VITAMIN B12 ORAL) Take 1 tablet by mouth once daily. cholecalciferol, vitamin D3, (VITAMIN D3 ORAL) Take 1 capsule by mouth once daily. aspirin (JAILENE CHEWABLE ASPIRIN) 81 mg chewable tablet Take 81 mg by mouth once daily. amLODIPine (NORVASC) 10 mg tablet Take 10 mg by mouth once daily. dorzolamide-timolol (COSOPT) 22.3-6.8 mg/mL ophthalmic solution Use 1 Drop in both eyes twice daily. DULoxetine (CYMBALTA) 60 mg capsule Take 60 mg by mouth once daily. metFORMIN (GLUCOPHAGE) 1,000 mg tablet Take 1,000 mg by mouth twice daily with meals. rosuvastatin (CRESTOR) 40 mg tablet Take 40 mg by mouth daily at bedtime. metoprolol tartrate 75 mg tab Take 75 mg by mouth twice daily. pantoprazole DR (PROTONIX) 40 mg tablet Take 1 tablet by mouth twice daily for 54 doses. (Patient not taking: Reported on 04/06/2023) oxyCODONE-acetaminophen (PERCOCET) 5-325 mg tablet Take 1-2 tablets by mouth every 8 hours as needed for pain. (Patient not taking: Reported on 09/19/2021) ondansetron (ZOFRAN) 4 mg tablet take 1 tablet by mouth every 8 hours if needed for nausea (Patient not taking: No sig reported) No current facility-administered medications for this visit. ALLERGIES: ALLERGIES No Known Allergies COMPLETE REVIEW OF SYSTEMS: Review of Systems Constitutional: Negative for chills, diaphoresis, fever and malaise/fatigue. HENT: Negative for congestion, hearing loss, nosebleeds, sinus pain, sore throat and tinnitus. Eyes: Negative for blurred vision, double vision, pain and redness. Respiratory: Negative for cough, hemoptysis, sputum production, shortness of breath and wheezing. Cardiovascular: Negative for chest pain, palpitations, orthopnea, leg swelling and PND. Gastrointestinal: Positive for abdominal pain, heartburn, nausea and vomiting. Negative for blood in stool, constipation and diarrhea. Genitourinary: Negative for dysuria, frequency, hematuria and urgency. Musculoskeletal: Negative for back pain, falls, joint pain, myalgias and neck pain. Skin: Negative for itching and rash. Neurological: Negative for dizziness, speech change, focal weakness, seizures, loss of consciousness, weakness and headaches. Endo/Heme/Allergies: Does not bruise/bleed easily. Psychiatric/Behavioral: Negative for depression, hallucinations, memory loss, substance abuse and suicidal ideas. The patient is not nervous/anxious and does not have insomnia. OBJECTIVE PHYSICAL EXAM: BP 120/59 Pulse 43 Ht 5' 8 (1.73m) Wt 166 lb (75.3kg) BMI 25.25 kg/(m^2). Physical Exam Vitals reviewed. Constitutional: Appearance: Normal appearance. HENT: Head: Normocephalic and atraumatic. Nose: Nose normal. Eyes: General: No scleral icterus. Extraocular Movements: Extraocular movements intact. Conjunctiva/sclera: Conjunctivae normal. Pupils: Pupils are equal, round, and reactive to light. Cardiovascular: Rate and Rhythm: Normal rate. Pulmonary: Effort: Pulmonary effort is normal. No respiratory distress. Skin: General: Skin is warm and dry. Neurological: General: No focal deficit present. Mental Status: He is alert and oriented to person, place, and time. Psychiatric: Mood and Affect: Mood normal. Behavior: Behavior normal. DATA: Diagnostic tests reviewed for today's visit: EMR reviewed Plan ASSESSMENT AND PLAN Douglas Callaway JR is a 68 year old male with a PMH as noted above who presents with recurrence of nausea/emesis/abdominal pain in the setting of a history of gastroparesis. 1. Nausea - ICD9: 787.02, ICD10: R11.0 (primary diagnosis) - Due to his history of gastroparesis s/p POP, I would like to repeat 4 Hr solid GES. This was supposed to have been done 3 months after POP in 2020, but this was never completed. - Will start with GES and EGD. Will also obtain CT abd/pelvis due to his history of lap ccx with post operative hepatic duct leak requiring ERCP with stenting - to be certain these symptoms are not due to an abdominal source/mechanical cause as GP is a diagnosis of exclusion - No solids 48 hours prior to eGD due to hx of GP - no need to stop ASA prior to EGD - NM GASTRIC EMPTYING SOLID 2. Gastroparesis - ICD9: 536.3, ICD10: K31.84 - As above - EGD DIAGNOSTIC 3. Heartburn - ICD9: 787.1, ICD10: R12 - EGD DIAGNOSTIC Medical Decision Making: Problems: Moderate: New problem with uncertain prognosis Data: Unique test result(s) reviewed: 2 Unique test(s) ordered: 3+ Discussed management or test w/ external physician/QHCP/source Risk: Low: Low risk from testing/treatment Medical Decision Making Level: 4 - Moderate \ SIGNATURE: Germaine Bray MD PATIENT NAME: Douglas Callaway JR DATE: April 06, 2023 TIME: 12:33 PM PAGER/CONTACT #: [phone] documented in this encounter [facility] 06-11-2021 History of Past i llness Narrative Problem Noted Date Diagnosed Date Resolved Date Gastroparesis 06/11/2021 06/12/2021 documented as of this encounter (statuses as of 04/06/2023) [facility] History of Past illness Narrative* Problem Noted Date Diagnosed Date Resolved Date Gastroparesis 06/11/2021 06/12/2021 documented as of this encounter (statuses as of 04/09/2023) [facility] History of Past illness Narrative* Problem Noted Date Diagnosed Date Resolved Date Gastroparesis 06/11/2021 06/12/2021 documented as of this encounter (statuses as of 05/14/2023) [facility] History of Past illness Narrative* Problem Noted Date Diagnosed Date Resolved Date Gastroparesis 06/11/2021 06/12/2021 documented as of this encounter (statuses as of 07/12/2023) [facility] History of Past illness Narrative* Problem Noted Date Diagnosed Date Resolved Date Gastroparesis 06/11/2021 06/12/2021 documented as of this encounter (statuses as of 07/12/2023) [facility] History of Past illness Narrative* Problem Noted Date Diagnosed Date Resolved Date Gastroparesis 06/11/2021 06/12/2021 documented as of this encounter (statuses as of 07/28/2023) [facility] History of Past illness Narrative* Problem Noted Date Diagnosed Date Resolved Date Gastroparesis 06/11/2021 06/12/2021 documented as of this encounter (statuses as of 07/28/2023) [facility] History of Past illness Narrative* Problem Noted Date Diagnosed Date Resolved Date Gastroparesis 06/11/2021 06/12/2021 documented as of this encounter (statuses as of 08/12/2023) [facility] History of Past illness Narrative* Problem Noted Date Diagnosed Date Resolved Date Gastroparesis 06/11/2021 06/12/2021 documented as of this encounter (statuses as of 08/13/2023) [facility] History of Past illness Narrative* Problem Noted Date Diagnosed Date Resolved Date Gastroparesis 06/11/2021 06/12/2021 documented as of this encounter (statuses as of 08/20/2023) [facility] History of Past illness Narrative* Problem Noted Date Diagnosed Date Resolved Date Gastroparesis 06/11/2021 06/12/2021 documented as of this encounter (statuses as of 10/12/2023) [facility] History of Past illness Narrative* Problem Noted Date Diagnosed Date Resolved Date Gastroparesis 06/11/2021 06/12/2021 documented as of this encounter (statuses as of 10/14/2023) [facility] History of Past illness Narrative* Problem Noted Date Diagnosed Date Resolved Date Gastroparesis 06/11/2021 06/12/2021 documented as of this encounter (statuses as of 10/21/2023) [facility] History of Past illness Narrative* Problem Noted Date Diagnosed Date Resolved Date Gastroparesis 06/11/2021 06/12/2021 documented as of this encounter (statuses as of 10/25/2023) [facility] History of Past illness Narrative* Problem Noted Date Diagnosed Date Resolved Date Gastroparesis 06/11/2021 06/12/2021 documented as of this encounter (statuses as of 10/28/2023) [address]-2021 History of Past illness Narrative* Problem Noted Date Diagnosed Date Resolved Date Gastroparesis 06/11/2021 06/12/2021 documented as of this encounter (statuses as of 11/04/2023) [address]21 History of Past illness Narrative* Problem Noted Date Diagnosed Date Resolved Date Gastroparesis 06/11/2021 06/12/2021 documented as of this encounter (statuses as of 11/08/2023) [facility] History of Past illness Narrative* Problem Noted Date Diagnosed Date Resolved Date Gastroparesis 06/11/2021 06/12/2021 documented as of this encounter (statuses as of 11/11/2023) [facility] History of Past illness Narrative* Problem Noted Date Diagnosed Date Resolved Date Gastroparesis 06/11/2021 06/12/2021 documented as of this encounter (statuses as of 11/11/2023) [facility] History of Past illness Narrative* Problem Noted Date Diagnosed Date Resolved Date Gastroparesis 06/11/2021 06/12/2021 documented as of this encounter (statuses as of 11/13/2023) [facility] History of Past illness Narrative* Problem Noted Date Diagnosed Date Resolved Date Gastroparesis 06/11/2021 06/12/2021 documented as of this encounter (statuses as of 11/15/2023) [facility] History of Past illness Narrative* Problem Noted Date Diagnosed Date Resolved Date Gastroparesis 06/11/2021 06/12/2021 documented as of this encounter (statuses as of 11/16/2023) [facility] History of Past illness Narrative* Problem Noted Date Diagnosed Date Resolved Date Gastroparesis 06/11/2021 06/12/2021 documented as of this encounter (statuses as of 11/18/2023) [facility] History of Past illness Narrative* Problem Noted Date Diagnosed Date Resolved Date Gastroparesis 06/11/2021 06/12/2021 documented as of this encounter (statuses as of 11/25/2023) [facility] History of Past illness Narrative* Problem Noted Date Diagnosed Date Resolved Date Gastroparesis 06/11/2021 06/12/2021 documented as of this encounter (statuses as of 11/29/2023) [facility] History of Past illness Narrative* Problem Noted Date Diagnosed Date Resolved Date Gastroparesis 06/11/2021 06/12/2021 documented as of this encounter (statuses as of 12/10/2023) [facility] History of Past illness Narrative* Problem Noted Date Diagnosed Date Resolved Date Gastroparesis 06/11/2021 06/12/2021 documented as of this encounter (statuses as of 12/16/2023) [facility] History of Past illness Narrative* Problem Noted Date Diagnosed Date Resolved Date Gastroparesis 06/11/2021 06/12/2021 documented as of this encounter (statuses as of 12/23/2023) [facility] Evaluation note* Diagnosis Onset Date Resolution Status Atherosclerosis of coronary artery of [place] heart without angina pectoris chronic Essential hypertension chron ic Hyperlipidemia chronic H/O coronary artery bypass surgery December 15, 2019 resolved [facility] Work Phone: Evaluation noteThere may be information available, but it has not been provided by the sender.[facility] Work Phone: Evaluation note* Diagnosis Onset Date Resolution Status Bile leak, postoperative res olved S/P ERCP resolved [facility] Work Phone: Evaluation noteNo assessment information available [facility] Work Phone: Evaluation note* Diagnosis Onset Date Resolution Status Bile leak acute Gastroparesis acute Acute gallstone pancreatitis resolved [facility] Work Phone: Evaluation note* Diagnosis Nausea- Primary Nausea alone Gastroparesis Heartburn [facility] Preop examination Preoperative examination, unspecified Primary hypertension Unspecified essential hypertension Diabetes mellitus without complication (HCC) Type II or unspecified type diabetes mellitus without mention of complication, not stated as uncontrolled CABRERA (obstructive sleep apnea) Obstructive sleep apnea (adult) (pediatric) Gastroparesis Heartburn documented in this encounter [facility] note* Diagnosis Nausea Nausea alone documented in this encounter [facility] note* Diagnosis Weakness of both lower extremities documented in this encounter [facility] note* Diagnosis Radiculopathy, lumbosacral region- Primary Thoracic or lumbosacral neuritis or radiculitis, unspecified Weakness of both lower extremities documented in this encounter [facility] note* Diagnosis Abnormality of gait- Primary Weakness of both lower extremities Imbalance Abnormality of gait documented in this encounter [facility] note* Diagnosis Diabetes mellitus without complication (HCC)- Primary Type II or unspecified type diabetes mellitus without mention of complication, not stated as uncontrolled Weakness of both lower extremities Abnormality of gait Imbalance Abnormality of gait documented in this encounter [facility] note* Diagnosis Diabetes mellitus without complication (HCC)- Primary Type II or unspecified type diabetes mellitus without mention of complication, not stated as uncontrolled Weakness of both lower extremities Abnormality of gait Imbalance Abnormality of gait documented in this encounter [facility] note* Diagnosis Postprocedural leakage from bile duct Diarrhea, unspecified type Exocrine pancreatic insufficiency Other specified disease of pancreas [facility]* Diagnosis Diabetes mellitus without complication (HCC)- Primary Type II or unspecified type diabetes mellitus without mention of complication, not stated as uncontrolled Weakness of both lower extremities Abnormality of gait Imbalance Abnormality of gait documented in this encounter [facility] note* Diagnosis Diabetes mellitus without complication (HCC)- Primary Type II or unspecified type diabetes mellitus without mention of complication, not stated as uncontrolled Weakness of both lower extremities Abnormality of gait Imbalance Abnormality of gait documented in this encounter [facility] note* Diagnosis Diabetes mellitus without complication (HCC)- Primary Type II or unspecified type diabetes mellitus without mention of complication, not stated as uncontrolled Weakness of both lower extremities Abnormality of gait Imbalance Abnormality of gait documented in this encounter [facility] note* Diagnosis Abnormality of gait due to impairment of balance- Primary Transient cerebral ischemia, unspecified type documented in this encounter [facility] note* Diagnosis Diabetes mellitus without complication (HCC)- Primary Type II or unspecified type diabetes mellitus without mention of complication, not stated as uncontrolled Weakness of both lower extremities Abnormality of gait Imbalance Abnormality of gait documented in this encounter [facility] note* Diagnosis Diabetes mellitus without complication (HCC)- Primary Type II or unspecified type diabetes mellitus without mention of complication, not stated as uncontrolled Weakness of both lower extremities Abnormality of gait Imbalance Abnormality of gait documented in this encounter [facility] note* Diagnosis Diabetes mellitus without complication (HCC)- Primary Type II or unspecified type diabetes mellitus without mention of complication, not stated as uncontrolled Weakness of both lower extremities Abnormality of gait Imbalance Abnormality of gait Abnormality of gait due to impairment of balance documented in this encounter [facility] note* Diagnosis Exocrine pancreatic insufficiency- Primary Other specified disease of pancreas Nausea and vomiting, unspecified vomiting type Abnormality of gait due to impairment of balance documented in this encounter [facility] note* Diagnosis Diabetes mellitus without complication (HCC)- Primary Type II or unspecified type diabetes mellitus without mention of complication, not stated as uncontrolled Abnormality of gait due to impairment of balance Weakness of both lower extremities Abnormality of gait Imbalance Abnormality of gait documented in this encounter [facility] note* Diagnosis Preop examination Preoperative examination, unspecified Primary hypertension Unspecified essential hypertension Diabetes mellitus without complication (HCC) Type II or unspecified type diabetes mellitus without mention of complication, not stated as uncontrolled CABRERA (obstructive sleep apnea) Obstructive sleep apnea (adult) (pediatric) Gastroparesis Heartburn Diarrhea, unspecified type documented in this encounter [facility] note* Diagnosis Intracranial hemorrhage (HCC)- Primary Unspecified intracranial hemorrhage Intracranial hemorrhage (HCC) Unspecified intracranial hemorrhage Fall Unspecified fall Intraventricular hemorrhage (HCC) [facility] Work Phone: Reason for referral (narrative)* Outpatient Procedure (Routine) - Closed Specialty Diagnoses / Procedures Referred By Gali blake Referred To Contact [facility] Diagnoses Gastroparesis Heartburn Procedures EGD DIAGNOSTIC EGD DIAGNOSTIC ESOPHAGOGASTRODUODENOSC OPY TRANSORAL DIAGNOSTIC Germaine Bray MD [address] [address] [facility] [place] [address] [place] [address] Referral ID Status Reason Start Date Expiration Date V isits Requested Visits Authorized [id number] Closed Auto-Generate d Referral 04/06/2023 04/06/2024 1 1 [facility] for referral (narrative)* Diagnostic Procedure Only (Routine) - Closed Specialty Diagnoses / Procedures Referred By Gali blake Referred To Contact [facility] Diagnoses Nausea Procedures NM GASTRIC EMPTYING SOLID GASTRIC EMPTYING STUDY Germaine Bray MD [address] [address] [facility] [address] [place] [address] Referral ID Status Reason Start Date Expiration Date V isits Requested Visits Authorized [id number] Closed Auto-Generate d Referral 04/06/2023 05/05/2024 1 1 [facility] for referral (narrative)* Outpatient Procedure (Routine) - Authorized Specialty Diagnoses / Procedures Referred By Gali blake Referred To Contact [facility] Diagnoses Weakness of both lower extremities Procedures EMG(NEURO/NI) NERVE CONDUCTION STUDIES 9-10 STUDIES Sheryl Bassett MD [address] [place] [address] [facility] [place] [address] [place] [id number] Referral ID Status Reason Start Date Expiration Date Visits Requested Visits Authorized [id number] Authorized Auto-Generat ed Referral 3 07/27/2024 1 1 * Physical Therapy (Routine) - Authorized Specialty Diagnoses / Procedures Referred By Gali blake Referred To Contact [facility] Diagnoses Weakness of both lower extremities Procedures CONSULT TO PHYSICAL THERAPY PHYSICAL THERAPY EVALUATION HIGH COMPLEX 45 MINS Sheryl Bassett MD [address] [place] [address] [facility] [place] [address] [place] [address] Referral ID Status Reason Start Date Expiration Date Visits Requested Visits Authorized [id number] Authorized PCP Requested Referral Auto-Generate d Referral 07/26/2024 99 99 [facility] for referral (narrative)* Outpatient Procedure (Routine) - Closed Specialty Diagnoses / Procedures Referred By Contac t Referred To Contact [facility] Diagnoses Diarrhea, unspecified type Procedures COLONOSCOPY DIAGNOSTIC COLONOSCOPY FLX DX W/COLLJ SPEC WHEN PFJACID Karla Sauer PA-C [address] [place] [address] [address] Referral ID Status Reason Start Date Expiration Date V isits Requested Visits Authorized [id number] Closed Auto-Generate d Referral 11/10/2023 11/09/2024 1 1 [facility] for visit Narrative* Outpatient Procedure (Routine) - Closed Specialty Diagnoses / Procedures [facility] To Contact [facility] Diagnoses Gastroparesis Heartburn Procedures EGD DIAGNOSTIC EGD DIAGNOSTIC ESOPHAGOGASTRODUODENOSC OPY TRANSORAL DIAGNOSTIC Germaine Bray MD [address] [address] [place] [id number] [place] [address] Referral ID Status Reason Start Date Expiration Date V isits Requested Visits Authorized [id number] Closed Auto-Generate d Referral 04/06/2023 04/06/2024 1 1 [facility] for visit Narrative* Outpatient Procedure (Routine) - Closed Specialty Diagnoses / Procedures [facility] Diagnoses Diarrhea, unspecified type Procedures COLONOSCOPY DIAGNOSTIC COLONOSCOPY FLX DX W/COLLJ SPEC WHEN PFRMD Karla Sauer PA-C [address] [place] [address] [facility] [address] [place] [address] Referral ID Status Reason Start Date Expiration Date V isits Requested Visits Authorized [id number] Closed Auto-Generate d Referral 11/10/2023 11/09/2024 1 1 [facility] for visit Narrative* Auth/Cert (Routine) Specialty Diagnoses / Procedures Referred By Contac t Referred To Contact Diagnoses fall Procedures .. Iban Ramirez MD [address] [place] [address] Phone: tel: fax: [facility] ICU [address] [place] [address] Phone: tel: Referral ID Status Reason Start Date Expiration Date Visits Re quested Visits Authorized [id number] 1 1 [facility] Health Summary Purpose Family History No Family History Records Found Relationship Condition Age at Onset Recorded Date/T alexia father Malignant neoplasm of colon Unknown Coronary artery disease Unknown mother Gastric ulcer Unknown Presence of cardiac pacemaker Unknown Fibrosis of lung Unknown Cardiac disease Unknown Advance Directives No Advanced Directives Records FoundDocuments on File Type Date Recorded Patient Mover Expl anation Advance Directives and Living Will Power of Air [employer] Operations Agent Latest Code Status on File Code Status Date Activated Date Inactivated Comments Full Code 12/15/2019 12:55 PM Full Code 12/15/2019 5:48 AM 12/15/2019 9:53 AM Advance Directive Response Recorded Date/ Time Advance Directives No November 19 9:18am Living Will Yes September 01 9:52am Power of Air Export Operations Agent Yes September 01, 2021 9:52am Advance Directive Response Recorded Date/ Time Advance Directives No November 19 9:18am Living Will Yes January 19, 2022 1 2:19pm Power of Air Export Operations Agent Yes January 19, 2022 12:19pm Advance Directive Response Recorded Date/ Time Name of Medical Power of Air Export Operations Agent on file, TIMA Callaway January 19, 2022 12:19pm Advance Directives No November 19 9:18am Living Will Yes January 30, 2022 9 :04pm Power of Air Export Operations Agent Yes January 30, 2022 9:04pm Advance Directive Response Recorded Date/ Time Advance Directives No November 19 9:18am Living Will Yes January 30, 2022 9 :04pm Power of Air Export Operations Agent Yes January 30, 2022 9:04pm Advance Directive Response Recorded Date/ Time Advance Directives No November 19 020 8:18am Living Will Yes January 30, 2022 8 :04pm Power of Air Export Operations Agent Yes January 30, 2022 8:04pm Documents on File Type Date Recorded Patient Mover Expl anation Advance Directive(s) 06/11/2021 2:06 PM Documents on File Type Date Recorded Patient Mover Expl anation Advance Directive(s) 06/11/2021 2:06 PM Date Activated Date Inactivated Comments 02/20/2025 3:26 PM 02/21/2025 2:29 PM Hospital Course Note Discharge Summary Douglas landeros Jr. : 1955 Age: 64 y.o. ADMIT DATE: 12/15/2019 DISCHARGE DATE: 12/20/2019 DISCHARGING SURGEON: Colton Marroquin MD Office Number: [phone] PRIMARY CARE PHYSICIAN: Neo Tian MD VISIT STATUS: Admission CODE STATUS: Full Code DISCHARGE DIAGNOSES: Active Problems: CAD in [place] artery CAD, multiple vessel Hyperglycemia S/P CABG x 3 Resolved Problems: * No resolved hospital problems. * HOSPITAL COURSE: Douglas Callaway Jr. 64 y.o. male with past medical history of TIA, CVA, CABRERA, hypertension, hyperlipidemia, Hep A, GERD, diabetes, depression, skin cancer and bipolar who was referred from Dr Tian for severe coronary artery disease after he had reported having chest pain and subsequent abnormal exercise myocardial perfusion stress test and cardiac catheterization completed on 11/20/19 at [place] revealed occluded mid LAD, 80% 1st diagonal lesion and 75% 2nd Diagonal and based upon his presentation and comorbidities it was felt that (more content not included)... Assessments Diagnosis Dizziness Dizziness and giddiness Diagnosis CAD, multiple vessel Coronary atherosclerosis of unspecified type of vessel, [place] or graft Preoperative examination Preoperative examination, unspecified Diagnosis S/P CABG x 3 Postsurgical aortocoronary bypass status CAD in [place] artery Coronary atherosclerosis of [place] coronary artery CAD, multiple vessel Coronary atherosclerosis of unspecified type of vessel, [place] or graft Hyperglycemia Other abnormal glucose Discharge Instructions * Discharge Instr - Lab* Stella Roy LPN - 12/16/2019 3:12 PM EDT Your physician has ordered skilled home care services for you. Your home care will be provided by: [facility] [phone] Scheduling [phone] * Additional Instructions* Jarocho Ambrocio APRN - PHYSICAL SECURITY SPECIALIST - 12/19/2019 [facility]: Cardiothoracic Surgery [address] [facility] #[phone] Notify us if the following occur - Increased tenderness, redness, or swelling of your incisions. - Any drainage from the chest incision (clear or pink drainage from the leg incision or chest tube site is common). - Angina symptoms like those you had before surgery - Sharp pain in chest, neck or shoulder that is worse when taking a deep breath - Persistent fever greater than 100 degrees F or 38 degrees C - Flu-like symptoms-chills, aches, fever, increased fatigue - Heart rate faster than 150 beats/minute with shortness of breath or new irregular heart rate. - Any unusual bleeding - Shortness of breath not relieved by rest - Weight gain of three pounds in one day or five pounds over one week Activity Instructions - Sternal Precautions for 6 weeks - Do not lift, push, or pull anything heavier than 10 pounds for 6 weeks (a gallon of milk weighs 8pounds). - Do not drive until you have been given permission by your surgeon/provider and until you are off narcotic/opioid pain medication - It is ok to sleep on your side if you prop pillows to support your back. Do not sleep on your stomach. - Walk at least 4 times a day, start with 5 minute intervals, increase minutes walked each day. Do not walk on a treadmill - Balance rest and activity during your recovery - Use the stairs, but go slowly, Use the handrail for balance but do not pull yourself up with yourarms. - Shower daily. Do not take your heart medication right before you shower. You could become lightheaded from your blood pressure and heart medication. Always have someone nearby to assist you. - Do not take a tub bath or use a hot tub until all incision are completely healed (no scab). - Put khalif hose on in AM and remove at bedtime. Elevate your feet above level of heart when you are sitting. - Cough and deep breathe and use incentive spirometer every hour (10x/hour while awake for two weeks. Other Instructions - Weigh yourself daily at the same time (after you urinate but before breakfast) - Keep a record of your daily weight, and bring to your first post op office visit - Take all medications as prescribed. Bring all your medication bottles to any follow up office visit Incision Care - Wash your sternal incision with anti-bacterial soap and warm water. Pat dry, and leave open to air. Do not use any lotions, or powders, or ointments. Home care nurse: -To draw Basic Metabolic Panel (BMP), Complete Blood Count (CBC) in one week or prior to office visit if possible. Home going Diabetes regimen: -Ok to restart metformin 1gm twice a day -Check blood glucose 2-3 times per day and keep a written log of blood glucose(sugar) levels. -Call endocrine clinic at [phone] in one week to review sugar log. -Recommend blood glucose (sugar) stay below 150. Call senior it recruiter office if levels frequently over 180. * Attachments The following attachments cannot be sent through Care Everywhere. * Coronary Artery Bypass Graft: Post-op (Ecuadorean) documented in this encounter History of Present Illness * Jarocho Ambrocio APRN - CNS - 12/20/2019 1:50 PM EDT Cardiothoracic Interval Progress Note 1. D/w with Malick Quinones NP for insulin recommendations. Plan discharge on metformin 1g BID and pt to check blood sugars and call endocrinoligist with log results 2. Pt states he had been off his HCTZ for couple months. His weight is back to his baseline and he has no edema so I will discontinue today with instructions to call CTS office if he starts to gain weight/or leg edema. 3. K+ 3.3 with 80 Meq replacement already today .Will have home care draw BMP/CBC in one week * Adalid Hirsch OTA - 12/20/2019 10:32 AM EDT Occupational Therapy Facility/Department: [facility] Daily Treatment Note NAME: Douglas Callaway Jr. : 1955 Date of Service: 12/20/2019 Discharge Recommendations: Home with assist PRN, Home with Home health OT Assessment Assessment: OT recommends home with assist from and home therapy. Cont OT to maximize indep and safety with ADL and function for safe return home. Prognosis: Good OT Education: OT Role;Plan of Care;Precautions;ADL Adaptive Strategies;Transfer Training REQUIRES OT FOLLOW UP: Yes Activity Tolerance Activity Tolerance: Patient Tolerated treatment well Safety Devices Safety Devices in place: Yes Type of devices: Patient at risk for falls;Left in bed;Call light within reach;Nurse notified;All fall risk precautions in place;Gait belt Patient Diagnosis(es): The primary encounter diagnosis was S/P CABG x 3. A diagnosis of CAD in [place] artery was also pertinent to this visit. has a past medical history of Bipolar 2 disorder ([facility]), CAD (coronary artery disease), Cancer ([facility]), Cerebral artery occlusion with cerebral infarction (HCC), Depression, Diabetes mellitus (HCC), Elevated LFTs, GERD (gastroesophageal reflux disease), Hepatitis A, Hyperlipidemia, Hypertension, Insomnia, CABRERA (obstructive sleep apnea), and TIA (transient ischemic attack). has a past surgical history that includes Cataract removal; Tonsillectomy; [place] tooth extraction;and Colonoscopy. Restrictions Restrictions/Precautions Restrictions/Precautions: Cardiac, Fall Risk, Modified Diet Required Braces or Orthoses?: No Position Activity Restriction Sternal Precautions: No Pushing, No Pulling, 10# Lifting Restrictions Sternal Precautions: YES Other position/activity restrictions: . Subjective General Chart Reviewed: Yes Patient assessed for rehabilitation services?: Yes Family / Caregiver Present: No Diagnosis: Pt admitted with NSTEMI and new CAD, S/P CABG x3 12/15/19. Subjective Subjective: Pt reclined in bed, agreeable to OT General Comment Comments: R hand dominant Vital Signs Patient Currently in Pain: Denies Orientation Orientation Overall Orientation Status: Within Functional Limits Objective ADL LE Dressing: Supervision(socks and pants) Balance Sitting Balance: Modified independent Standing Balance: Supervision Functional Mobility Functional - Mobility Device: No device Activity: To/from bathroom;Other(around HLU unit) Toilet Transfers Toilet - Technique: Ambulating Equipment Used: Raised toilet seat without rails Toilet Transfer: Supervision Bed mobility Rolling to Left: Modified independent Rolling to Right: Modified independent Supine to Sit: Modified independent Sit to Supine: Modified independent Scooting: Modified independent Transfers Stand Step Transfers: Supervision Sit to stand: Supervision Stand to sit: Supervision Transfer Comments: Pt. followed sternal precautions 100% Cognition Overall Cognitive Status: WFL Plan Plan Times per week: 5x Plan weeks: 2 weeks Current Treatment Recommendations: Strengthening, ROM, Balance Training, Functional Mobility Training, Endurance Training, Safety Education & Training, Patient/Caregiver Education & Training,Equipment Evaluation, Education, & procurement, Positioning, Self-Care / ADL, Home Management Training, Cognitive/Perceptual Training Plan Comment: continue OT POC Goals Short term goals Time Frame for Short term goals: 2 weeks Short term goal 1: Modif indep LE ADL-progressing Short term goal 2: Modif indep grooming task while standing at sink-progressing Short term goal 3: Modif indep toilet transfer and toileting-progressing Short term goal 4: Soila findep item retrieval from cupboards at various heights with good safety techniques-progressing Short term goal 5: Pt will recall 3/3 sternal precautions and follow consistently without cues-progressing Patient Goals Patient goals : to go home Therapy Time Individual Concurrent Group Co-treatment Time In 1011 Time Out 1024 Minutes 13 Timed Code Treatment Minutes: 13 Minutes(ther act-1) MARIOLA Smith * Sarah Teresa, EDUCATIONAL AUDIOLOGIST - BAND NAILER - 12/20/2019 10:16 AM EDT ENDOCRINOLOGY PROGRESS NOTE Patient: Douglas Callaway . Unit/Bed:[id number] Date of : 1955 Admit date: 12/15/2019 Subjective: The patient is being followed for: type 2 DM with stress hyperglycemia without alf insulin use In view of COVID 19 pandemic, today's follow up visit is completed remotely after carefully reviewing the chart and determining that endocrinology service could be safely rendered remotely This note represents a Telehealth visit note Tool/mechanism used for communication with the patient during this encounter: [x] Phone (audio communication) [] Video enabled device (using [email or web address]) [] Couldn't directly talk to the patient Reviewed the following: [x] Primary team note [x] Other securities consultant(s) note(s) [x] Relevant LAB results [x] Blood sugar readings [] Relevant Imaging Talked to: [x] Patient [] RN taking care of patient [] Primary team Progress since yesterday: Course since yesterday: patient likely to be d/c today. His sugars have improved since yesterday. He was able to complete diabetes education and feels comfortable doing injections at home if necessary however due to a deductible any insulin would cost him about $400. Has good appetite and no complaints. Ate citizen of [place] toast for BF. Relieved by: insulin given by nurses as inpatient; administered insulin doses are reviewed Patient is tolerating meals: [x] Yes [] No Diet: Dietary Nutrition Supplements: Diabetic Oral Supplement DIET CARDIAC; Carb Control: 4 carb choices (60 gms)/meal Review of Systems: Chest pain [] Yes [x] No Shortness of breath [] Yes [x] No Nausea [] Yes [x] No Vomiting [] Yes [x] No Past Medical/Surgical, Family, and Social History are reviewed and unchanged from current admission. Medications: Scheduled Meds: amLODIPine 10 mg Oral Daily insulin glargine 18 Units Subcutaneous Daily DULoxetine 60 mg Oral Daily metoprolol tartrate 75 mg Oral BID dorzolamide-timolol 1 drop Both Eyes BID insulin lispro 5 Units Subcutaneous TID WC insulin lispro 0-6 Units Subcutaneous TID WC pantoprazole 40 mg Oral QAM AC enoxaparin 40 mg Subcutaneous Daily sodium chloride flush 10 mL Intravenous 2 times per day polyethylene glycol 17 g Oral Daily sennosides-docusate sodium 2 tablet Oral Nightly atorvastatin 80 mg Oral Nightly aspirin 81 mg Oral Daily lidocaine 2 patch Transdermal Daily acetaminophen 1,000 mg Oral TID Continuous Infusions: dextrose PRN Meds:oxyCODONE OR oxyCODONE, sodium chloride flush, potassium chloride, magnesium sulfate, calcium gluconate IVPB, magnesium hydroxide, bisacodyl, ondansetron, potassium chloride, glucose, dextrose, glucagon (rDNA), dextrose Objective: HgbA1C: No results for input(s): LABA1C in the last 72 hours. BMP: Recent Labs 12/19/19 0017 12/19/19 1312 12/20/19 0040 12/20/19 0415 NA 137 -- 137 138 -- K 3.4* < > 3.1* 3.2* 3.3* CL 105 -- 103 107 -- CO2 25 -- 25 26 -- BUN 30* -- 23* 20 -- CREATININE 1.10 -- 0.98 0.90 -- GLUCOSE 144* -- 168* 122* -- < > = values in this interval not displayed. Glucose: Recent Labs 12/17/19 1737 12/18/19 1301 12/18/19 1633 12/19/19 0813 12/19/19 1231 12/19/19 1705 12/19/19 2114 12/20/19 0620 POCGLU 307* 183* 135* 232* 208* 186* 139* 106* Physical Exam: Vitals: BP (!) 161/93 Pulse 120 Temp 97.9 F (36.6 C) (Oral) Resp 18 Ht 5' 8 (1.727 m) Wt171 lb 1.6 oz (77.6 kg) SpO2 100% BMI 26.02 kg/m 24hour intake/output: Intake/Output Summary (Last 24 hours) at 12/20/2019 1016 Last data filed at 12/20/2019 0600 Gross per 24 hour Intake 750 ml Output 1550 ml Net -800 ml Physical Exam Due to the current efforts to prevent transmission of COVID-19 and also the need to preserve PPE for other caregivers, a [id number] encounter with the patient was not performed. That being said, all relevant records and diagnostic tests were reviewed, including laboratory results and imaging. Please reference any relevant documentation elsewhere. Care will be coordinated with the primary service. Assessment: Type 2 DM with stress hyperglycemia without alf insulin use S/p cabg Plan: Recommendations/Changes As inpatient now: No changes to inpatient regimen at this time. Home going Diabetes regimen: He can re start metformin 1g BID I recommend patient check his sugar 2-3 times per day and keep a written log of his sugars. He should call our clinic at [phone] in one week to review his sugar log. Recommend sugar stay below 150 but even 180 could be acceptable and he needs to let us know if he is having frequent sugars over 180. Should he have issues controlling his sugars on metformin alone we can provide him with a sample pen of insulin for the short term so he does not have to pay the high deductible. Counseling: Patient is counseled about importance of DM control. Patient is counseled about risk of complications associated with uncontrolled Diabetes Patient is counseled about BS targets and A1C target. Patient is counseled about importance of diet. Patient is counseled about importance of checking BS regularly. Patient is counseled about risk and management of hypoglycemia Follow up as outpatient after discharge: Call in one week to review BGL with one our RN's or educators. Will determine if he needs further follow up with our clinic after that. * Jarocho Ambrocio APRN - CNS - 12/20/2019 9:45 AM EDT Cardiothoracic Interval Progress Note 1. Discharge instructions reviewed with patient. 2. Awaiting endocrine recommendations. Pt states that his insulin cost would have been $400-500 so endocrine is looking into alternate insulin/meds 3. * Jarocho Ambrocio APRN - CNS - 12/20/2019 6:35 AM EDT Cardiothoracic Surgery Progress Note 12/20/2019 Subjective: Admit Date: 12/15/2019 Interval History: S/P CABG x3 on 12/15/19- POD#5- no issues overnight Subjective: Resting in bed. States ready to get out of here Objective: Vitals: Temp (24hrs), Av.8 F (36.6 C), Min:97.5 F (36.4 C), Max:98.2 F (36.8 C) BP (!) 145/82 Pulse 104 Temp 97.7 F (36.5 C) (Oral) Resp 18 Ht 5' 8 (1.727 m) Wt 171 lb 1.6 oz (77.6 kg) SpO2 95% BMI 26.02 kg/m I/O: Date 12/20/19 0000 - 12/20/19 2359 Shift 0479-1253 3105-5961 3072-2668 24 Hour Total INTAKE P.O. 750 750 Shift Total(mL/kg) 750(9.7) 750(9.7) OUTPUT Urine(mL/kg/hr) 450 450 Shift Total(mL/kg) 450(5.8) 450(5.8) Weight (kg) 77.6 77.6 77.6 77.6 Weights: Patient Vitals for the past 96 hrs (Last 3 readings): Weight 12/20/19 0700 171 lb 1.6 oz (77.6 kg) 12/19/19 0400 182 lb 1.6 oz (82.6 kg) 12/17/19 0418 172 lb (78 kg) Labs: BMP: Recent Labs 12/19/19 0017 12/19/19 1312 12/20/19 0040 12/20/195 NA 137 -- 137 138 -- K 3.4* < > 3.1* 3.2* 3.3* CL 105 -- 103 107 -- CO2 25 -- 25 26 -- BUN 30* -- 23* 20 -- CREATININE 1.10 -- 0.98 0.90 -- GLUCOSE 144* -- 168* 122* -- < > = values in this interval not displayed. . CBC: Recent Labs 12/18/19 0325 12/19/19 0017 12/19/192 12/20/19 0040 WBC 9.5 7.5 -- 7.9 RBC 2.46* 2.30* -- 2.89* HGB 7.9* 7.4* 9.5* 9.1* HCT 23.8* 22.3* 27.1* 27.2* MCV 96.9 96.9 -- 94.4 MCH 32.3 32.3 -- 31.6 MCHC 33.3 33.3 -- 33.5 RDW 14.5 14.4 -- 15.1* PLT 213 215 -- 244 MPV 8.4 8.2 -- 7.6 Hepatic: No results for input(s): AST, ALT, ALB, BILITOT, ALKPHOS in the last 72 hours. INR: Lab Results Component Value Date PROTIME 12.6 12/15/2019 INR 1.2 12/15/2019 Films: CXR portable: Reviewed Physical Exam: Physical Exam Constitutional: General: He is not in acute distress. Appearance: He is well-developed. He is not diaphoretic. HENT: Head: Normocephalic and atraumatic. Nose: Nose normal. Mouth/Throat: Mouth: Mucous membranes are moist. Eyes: Pupils: Pupils are equal, round, and reactive to light. Neck: Musculoskeletal: Normal range of motion and neck supple. Vascular: No JVD. Cardiovascular: Rate and Rhythm: Regular rhythm. Tachycardia present. Heart sounds: Normal heart sounds. Pulmonary: Effort: Pulmonary effort is normal. No respiratory distress. Breath sounds: Normal breath sounds. No stridor. Abdominal: General: There is no distension. Tenderness: There is no abdominal tenderness. Musculoskeletal: Normal range of motion. General: No tenderness. Skin: General: Skin is warm and dry. Comments: Sternotomy incision intact with no signs of infection. Neurological: Mental Status: He is alert and oriented to person, place, and time. Psychiatric: Mood and Affect: Mood normal. Behavior: Behavior normal. Thought Content: Thought content normal. Judgment: Judgment normal. Medications: Scheduled Meds: DULoxetine 60 mg Oral Daily amLODIPine 5 mg Oral Daily metoprolol tartrate 75 mg Oral BID insulin glargine 20 Units Subcutaneous Daily dorzolamide-timolol 1 drop Both Eyes BID insulin lispro 5 Units Subcutaneous TID WC insulin lispro 0-6 Units Subcutaneous TID WC pantoprazole 40 mg Oral QAM AC enoxaparin 40 mg Subcutaneous Daily sodium chloride flush 10 mL Intravenous 2 times per day polyethylene glycol 17 g Oral Daily sennosides-docusate sodium 2 tablet Oral Nightly atorvastatin 80 mg Oral Nightly aspirin 81 mg Oral Daily lidocaine 2 patch Transdermal Daily acetaminophen 1,000 mg Oral TID Continuous Infusions: Home Meds: Prior to Admission medications Medication Sig Start Date End Date Taking? Authorizing Provider mupirocin (BACTROBAN NASAL) 2 % nasal ointment Apply liberal amount on a q-tip and place in each nostril the night before surgery and then again the morning of surgery 12/12/19 Yes Alicia Carroll APRN - [facility] dorzolamide-timolol (COSOPT) 22.3-6.8 MG/ML ophthalmic solution Place 1 drop into both eyes 2 timesdaily Yes Historical Provider, MD DULoxetine (CYMBALTA) 60 MG extended release capsule Take 60 mg by mouth daily Yes Historical Provider, pantoprazole (PROTONIX) 40 MG tablet Take 40 mg by mouth daily Yes Historical Provider, hydroCHLOROthiazide (HYDRODIURIL) 25 MG tablet Take 25 mg by mouth daily Historical Provider, amLODIPine (NORVASC) 10 MG tablet Take 10 mg by mouth daily Historical Provider, aspirin 81 MG tablet Take 81 mg by mouth daily Historical Provider, metFORMIN (GLUCOPHAGE) 1000 MG tablet Take 1,000 mg by mouth 2 times daily (with meals) Historical Provider, metoprolol tartrate (LOPRESSOR) 50 MG tablet Take 50 mg by mouth 2 times daily Historical Provider, lisinopril (PRINIVIL;ZESTRIL) 10 MG tablet Take 20 mg by mouth daily Historical Provider, Diet: Dietary Nutrition Supplements: Diabetic Oral Supplement DIET CARDIAC; Carb Control: 4 carb choices (60 gms)/meal Problem List: Active Problems: CAD in [place] artery CAD, multiple vessel Hyperglycemia S/P CABG x 3 Resolved Problems: * No resolved hospital problems. * Assessment and Plan: 1. CAD: Status post CABG X 3: LIUMA to LAD, V to D1, V to D2; EVH (Left thigh),ALFREDITO on 12/15/19 -EF 55% on ALFREDITO 12/15/19 -Core Medication: [x]ASA [x]BB [x] Statin [] ACEi/ARB EF >40% -Anticoagulation: n/a 2. Post op Pulm. Mgmt: HxOSA (Normal post op course) on RA-98%. CXR: Reviewed by Dr. Tapia who is covering for Dr. Marroquin during rounds today. Continue C&DB, Enc use of IS. 3. Hypertension: SBP 130-140's. On Norvasc 5 mg (home dose 10 mg) will increase today. and metoprolol tartrate 75 mg BID. Off home ACEi. 4. Hypokalemia: K+3.1. Replaced pre K+ po replacement protocol. Repeat 3.3. Ok to give replace again todya 5. Blood loss Anemia: Hgb: 9.1 up from 7.4 after 1 U PRBC's yesterday. Stable. No s/s bleeding. 6. DM/Stress Hyperglycemia: A1C 7.0 Insulin per endocrine. Will need recommendations for discharge. 7. Acute post op pain: On scheduled tylenol, lidocaine patch and oxycodone IR prn. 8. GI/DVT prophylaxis: PPI/Teds-lovenox 9. Disposition: Plan discharge home later today with follow up in CTS office in 7-10 days Blood Conservation Initiative Log: - 12/18- 1 U PRBC -Hgb 7.4 * Emeli Bell RCP - 12/19/2019 10:10 PM EDT [facility] Respiratory Care Department Progress Note Patient was seen in attempts to fulfill CPAP/BiPAP/AutoPAP order. Patient refused PAP therapy/studyat this time. Patient was educated on medical need and reasoning for physician order to ensure patient was making an informed medical decision. All of the patient's questions were answered at this time and patient was informed that if the patient changes their mind regarding wearing PAP to hit their call light or inform their nurse to contact Respiratory. A second, consecutive night of refusing PAP therapy/study results in order completion in the EMR. If future CPAP/BiPAP/AutoPAP therapy or study is indicated please place another order in the EMR and the assigned Respiratory Therapist will reattempt to fulfill orders. Comment or reasoning for refusal: Pt stated he can't tolerate the mask while he sleeps. Has tried multiple masks Thank you for involving Respiratory in the care of this patient, * Sarah Teresa APRN - [place] - 12/19/2019 12:25 PM EDT ENDOCRINOLOGY PROGRESS NOTE Patient: Douglas Callaway Jr. Unit/Bed:[id number] Date of : 1955 Admit date: 12/15/2019 Subjective: The patient is being followed for: type 2 DM with stress hyperglycemia without assistant terminal manager insulin use In view of COVID 19 pandemic, today's follow up visit is completed remotely after carefully reviewing the chart and determining that endocrinology service could be safely rendered remotely This note represents a Telehealth visit note Tool/mechanism used for communication with the patient during this encounter: [] Phone (audio communication) [] Video enabled device (using [employer]) [x] Couldn't directly talk to the patient because sleeping while getting PRBC infusion Reviewed the following: [x] Primary team note [x] Other securities consultant(s) note(s) [x] Relevant LAB results [x] Blood sugar readings [] Relevant Imaging Talked to: [] Patient [x] RN taking care of patient [] Primary team Progress since yesterday: Course since yesterday: patient receiving PRBC for low HGB. Sugar was elevated this morning but is possible patient had juice just prior to day shift RN taking over. He ate his BF late around 10a. Heis declining lunch at this time. RN will check his BG and give him SSI coverage for lunch time if needed. Patient may potentially go home later today if his HGB rises appropriately. Relieved by: insulin given by nurses as inpatient; administered insulin doses are reviewed Patient is tolerating meals: [x] Yes [] No Diet: Dietary Nutrition Supplements: Diabetic Oral Supplement DIET CARDIAC; Carb Control: 4 carb choices (60 gms)/meal Review of Systems: Chest pain [] Yes [x] No Shortness of breath [] Yes [x] No Nausea [] Yes [x] No Vomiting [] Yes [x] No Past Medical/Surgical, Family, and Social History are reviewed and unchanged from current admission. Medications: Scheduled Meds: DULoxetine 60 mg Oral Daily amLODIPine 5 mg Oral Daily metoprolol tartrate 75 mg Oral BID dorzolamide-timolol 1 drop Both Eyes BID insulin glargine 18 Units Subcutaneous Daily insulin lispro 5 Units Subcutaneous TID WC insulin lispro 0-6 Units Subcutaneous TID WC pantoprazole 40 mg Oral QAM AC enoxaparin 40 mg Subcutaneous Daily sodium chloride flush 10 mL Intravenous 2 times per day polyethylene glycol 17 g Oral Daily sennosides-docusate sodium 2 tablet Oral Nightly atorvastatin 80 mg Oral Nightly aspirin 81 mg Oral Daily lidocaine 2 patch Transdermal Daily acetaminophen 1,000 mg Oral TID Continuous Infusions: dextrose PRN Meds:oxyCODONE OR oxyCODONE, sodium chloride flush, potassium chloride, magnesium sulfate, calcium gluconate IVPB, magnesium hydroxide, bisacodyl, ondansetron, potassium chloride, glucose, dextrose, glucagon (rDNA), dextrose Objective: HgbA1C: No results for input(s): LABA1C in the last 72 hours. BMP: Recent Labs 12/17/19 0308 12/18/19 0325 12/19/19 0017 12/19/19 0600 NA 136 136 137 -- K 4.6 4.1 3.4* 3.5 CL 103 103 105 -- CO2 25 23 25 -- BUN 25* 37* 30* -- CREATININE 1.17 1.17 1.10 -- GLUCOSE 82 191* 144* -- Glucose: Recent Labs 12/17/19 0759 12/17/19 0902 12/17/19 1000 12/17/19 1344 12/17/19 1737 12/18/19 1301 12/18/19 1633 12/19/19 0813 POCGLU 106* 166* 133* 207* 307* 183* 135* 232* Physical Exam: Vitals: BP 135/77 Pulse 88 Temp 98 F (36.7 C) Resp 18 Ht 5' 8 (1.727 m) Wt 182 lb 1.6 oz(82.6 kg) SpO2 93% BMI 27.69 kg/m 24hour intake/output: Intake/Output Summary (Last 24 hours) at 12/19/2019 1225 Last data filed at 12/19/2019 0400 Gross per 24 hour Intake 800 ml Output 1500 ml Net -700 ml Physical Exam Due to the current efforts to prevent transmission of COVID-19 and also the need to preserve PPE for other caregivers, a jatd-pm-toli encounter with the patient was not performed. That being said, all relevant records and diagnostic tests were reviewed, including laboratory results and imaging. Please reference any relevant documentation elsewhere. Care will be coordinated with the primary service. Assessment: Type 2 DM with stress hyperglycemia without alf insulin use S/p cabg Plan: Recommendations/Changes As inpatient now: No changes to inpatient regimen at this time. Home going Diabetes regimen: Due to patient needing higher doses of insulin since transitioning off the drip he may need basal insulin transiently going home. He can restart metformin 1g BID and lantus solostar pen 18 units daily Counseling: Patient not available for counseling. Follow up as outpatient after discharge: Recommend follow up with Janet Zaman CNP or Dr. Hernandez in 1-2 weeks. Virtual visit is appropriate. * Chata Mckenzie, COMPUTER FORENSIC EXAMINER - 12/19/2019 11:14 AM EDT Physical Therapy Facility/Department: [facility] Daily Treatment Note NAME: Douglas Callaway Jr. : 1955 Date of Service: 12/19/2019 Discharge Recommendations: 24 hour supervision or assist, Home with Home health PT PT Equipment Recommendations Equipment Needed: No Assessment Body structures, Functions, Activity limitations: Decreased functional mobility ;Decreased strength;Decreased balance;Increased pain;Decreased endurance Assessment: Pt at SBA for most all mobility. Occasional verbal cues needed for sternal precautions.Pt progressing toward all PT goals. Recommend home with 24 hr assist and home PT at discharge. Activity Tolerance Activity Tolerance: Patient Tolerated treatment well Patient Diagnosis(es): There were no encounter diagnoses. has a past medical history of Bipolar 2 disorder (HCC), CAD (coronary artery disease), Cancer (HCC), Cerebral artery occlusion with cerebral infarction (HCC), Depression, Diabetes mellitus (HCC), Elevated LFTs, GERD (gastroesophageal reflux disease), Hepatitis A, Hyperlipidemia, Hypertension, Insomnia, CABRERA (obstructive sleep apnea), and TIA (transient ischemic attack). has a past surgical history that includes Cataract removal; Tonsillectomy; [place] tooth extraction;and Colonoscopy. Restrictions Restrictions/Precautions Restrictions/Precautions: Cardiac, Fall Risk, Modified Diet Required Braces or Orthoses?: No Position Activity Restriction Sternal Precautions: No Pushing, No Pulling, 10# Lifting Restrictions Sternal Precautions: YES Other position/activity restrictions: . Subjective General Chart Reviewed: Yes Response To Previous Treatment: Patient with no complaints from previous session. Family / Caregiver Present: Yes Subjective Subjective: Patient in bed. He is agreeable to PT. General Comment Comments: N95 mask and gloves worn by PT throughout interaction with patient. Pt wore mask while inhallway Pain Screening Patient Currently in Pain: Yes Pain Assessment Pain Assessment: 0-10 Pain Level: 1 Pain Type: Surgical pain;Acute pain Pain Location: Chest;Incision Vital Signs Patient Currently in Pain: Yes Orientation Orientation Overall Orientation Status: Within Functional Limits Cognition Objective Bed mobility Supine to Sit: Stand by assistance Sit to Supine: Stand by assistance Scooting: Stand by assistance Transfers Sit to Stand: Stand by assistance Stand to sit: Stand by assistance Comment: toilet transfer with SBA Ambulation Ambulation?: Yes WB Status: no restrictions LEs, sternal precautions More Ambulation?: Yes Ambulation 1 Surface: level tile Assistance: Stand by assistance Gait Deviations: Slow Marion;Decreased step length Distance: 200 feet Ambulation 2 Surface - 2: level tile Device 2: No device Assistance 2: Stand by assistance Distance: 200 feet Stairs/Curb Stairs?: Yes Stairs # Steps : 4 Rails: Right ascending Device: No Device Assistance: Stand by assistance Exercises Upper Extremity: P&C exercises 1-9 x 10 reps each with demo given G-Code OutComes Score AM-PAC Score Goals Short term goals Time Frame for Short term goals: 2 weeks Short term goal 1: independent bed mobility- NOT MET Short term goal 2: independent sit to/from stand- NOT MET Short term goal 3: independent ambulation 250 feet with device PRN- NOT MET Short term goal 4: up/down flight of steps independent with rail- NOT MET Short term goal 5: independent with P&C exercises with use of instruction sheet- NOT MET Short term goal 6: independent with home walking program- NOT MET Short term goal 7: independent with incentive spirometer use and clearing secretions- NOT MET Patient Goals Patient goals : None stated. Plan Plan Times per week: 5-7 Times per day: Daily Plan weeks: 2 Current Treatment Recommendations: Strengthening, Gait Training, ROM, Balance Training, Functional Mobility Training, Transfer Training, Stair training(Chest PT - P&C ex, IS, home walking program) Safety Devices Type of devices: Call light within reach, Patient at risk for falls, Nurse notified, All fall risk precautions in place, Left in bed Restraints Initially in place: No Therapy Time Individual Concurrent Group Co-treatment Time In 1035 Time Out 1106 Minutes 31 Timed Code Treatment Minutes: 28 Minutes Variance: 3(on toilet) Chata Mckenzie PTA * Alicia Carroll, EDUCATIONAL AUDIOLOGIST - [employer] - 12/19/2019 4:44 AM EDT Cardiothoracic Surgery Progress Note 12/19/2019 Subjective: Procedure/Surgery/Following For: 12/14: CABGx3 (ASHLEY to LAD, V to D1, V to D2) EVH (left thigh) and ALFREDITO Interval History: 12/18-POD#4: VSS-ST (rates in low 100); off O2 currently; drop in Hgb 7.4- hemodynamically stable; will discuss on rounds possibly transfusing Subjective: Resting in bed; no issues or concerns overnight-had a good night. Pain controlled. Objective: BP 137/73 Pulse 106 Temp 97.7 F (36.5 C) (Oral) Resp 18 Ht 5' 8 (1.727 m) Wt 182 lb 1.6 oz (82.6 kg) SpO2 93% BMI 27.69 kg/m I&O's/Labs/Diagnostics: Reviewed in EMR Physical Exam Constitutional: No acute distress and well-nourished Psychiatric: Alert and oriented and mood and affect is appropriate Respiratory: Lungs are CTA, with no rales or wheezes noted, respiratory effort is normal and symmetrical and with good air movement bilaterally Heart/Vasc: Tachycardia, regular rhythm, normal S1 S2, no murmur, gallop or friction rub noted and peripheral pulses equal, intact, bilaterally Abdomen/: Normal BS, abdomen soft, non-tender, non-distended and voids appropriately Skin: Skin color normal for ethnicity, warm to touch, well perfused, nails clean and free of pitting bilaterally, cap refill <2secs and BLE with no edema noted Incisions: Healing appropriately, well approximated, no drainage noted, and with no signs of infection Assessment/Plan: 1. CAD/HTN/HLP CABGx3 (ASHLEY to LAD, V to D1, V to D2) EVH (left thigh) and ALFREDITO on 12/15/19 EF: 55%-12/15/19 Continue care per orders: increased BB; restarted depression med. Hgb 7.4; will discuss transfusionon rounds Discharge planning: likely tomorrow Cardiac Core Medications: ASA, Statin and BB Invasive Lines Management: Central Line: Inserted: 12/14-remove today Blood Conservation: 12/14- 2units Plts. DVT prophylaxis: TEDs, SCDs and Lovenox 2. Type 2 DM Per Endo; subcutaneous regimen- will need discharge recs Medications Prior to Admission: Prior to Admission medications Medication Sig Start Date End Date Taking? Authorizing Provider mupirocin (BACTROBAN NASAL) 2 % nasal ointment Apply liberal amount on a q-tip and place in each nostril the night before surgery and then again the morning of surgery 12/12/19 Yes KHARI Shoemaker CNP dorzolamide-timolol (COSOPT) 22.3-6.8 MG/ML ophthalmic solution Place 1 drop into both eyes 2 timesdaily Yes Historical Provider, DULoxetine (CYMBALTA) 60 MG extended release capsule Take 60 mg by mouth daily Yes Historical Provider, pantoprazole (PROTONIX) 40 MG tablet Take 40 mg by mouth daily Yes Historical Provider, hydroCHLOROthiazide (HYDRODIURIL) 25 MG tablet Take 25 mg by mouth daily Historical Provider, amLODIPine (NORVASC) 10 MG tablet Take 10 mg by mouth daily Historical Provider, aspirin 81 MG tablet Take 81 mg by mouth daily Historical Provider, metFORMIN (GLUCOPHAGE) 1000 MG tablet Take 1,000 mg by mouth 2 times daily (with meals) Historical Provider, metoprolol tartrate (LOPRESSOR) 50 MG tablet Take 50 mg by mouth 2 times daily Historical Provider, lisinopril (PRINIVIL;ZESTRIL) 10 MG tablet Take 20 mg by mouth daily Historical Provider, * Chata Mckenzie PTA - 12/18/2019 2:48 PM EDT Physical Therapy Facility/Department: [facility] Daily Treatment Note NAME: Douglas Callaway Jr. : 1955 Date of Service: 12/18/2019 Discharge Recommendations: 24 hour supervision or assist, Home with Home health PT PT Equipment Recommendations Equipment Needed: No Assessment Body structures, Functions, Activity limitations: Decreased functional mobility ;Decreased strength;Decreased balance;Increased pain;Decreased endurance Assessment: Pt at min assist to SBA level for mobility. Min verbal cues for sternal precautions. Ptprogressing toward PT goals. No PT goals met this session. Recommend home with 24 hr assist and home PT at discharge. REQUIRES PT FOLLOW UP: Yes Activity Tolerance Activity Tolerance: Patient Tolerated treatment well Patient Diagnosis(es): There were no encounter diagnoses. has a past medical history of Bipolar 2 disorder (HCC), CAD (coronary artery disease), Cancer (HCC), Cerebral artery occlusion with cerebral infarction (HCC), Depression, Diabetes mellitus (HCC), Elevated LFTs, GERD (gastroesophageal reflux disease), Hepatitis A, Hyperlipidemia, Hypertension, Insomnia, CABRERA (obstructive sleep apnea), and TIA (transient ischemic attack). has a past surgical history that includes Cataract removal; Tonsillectomy; [place] tooth extraction;and Colonoscopy. Restrictions Restrictions/Precautions Restrictions/Precautions: Cardiac, Fall Risk, Modified Diet Required Braces or Orthoses?: No Position Activity Restriction Sternal Precautions: No Pushing, No Pulling, 10# Lifting Restrictions Sternal Precautions: YES Other position/activity restrictions: . Subjective General Chart Reviewed: Yes Response To Previous Treatment: Patient with no complaints from previous session. Family / Caregiver Present: No Subjective Subjective: Patient in bed. He is agreeable to PT. General Comment Comments: N95 mask and gloves worn by PT throughout interaction with patient. Pain Screening Patient Currently in Pain: Denies Pain Assessment Pain Assessment: 0-10 Pain Level: 2 Vital Signs Patient Currently in Pain: Denies Orientation Orientation Overall Orientation Status: Within Functional Limits Cognition Cognition Overall Cognitive Status: [facility] Cognition Comment: ID's , age, president and 911, 3/3 word recall afetr 1 min. Pt able to recallall sternal precautions but has difficulty following during tasks. Objective Bed mobility Supine to Sit: Minimal assistance Sit to Supine: Stand by assistance Scooting: Stand by assistance Comment: cues for sternal precautions Transfers Sit to Stand: Stand by assistance Stand to sit: Stand by assistance Ambulation Ambulation?: Yes WB Status: no restrictions LEs, sternal precautions More Ambulation?: Yes Ambulation 1 Surface: level tile Device: (Mildred) Assistance: Stand by assistance Distance: 250 feet Ambulation 2 Surface - 2: level tile Device 2: No device Assistance 2: Stand by assistance Distance: 150 feet Stairs/Curb Stairs?: Yes Stairs # Steps : 8 Device: No Device Assistance: Contact guard assistance Comment: verbal cues for sequencing Exercises Upper Extremity: P&C exercises 1-9 x 10 reps each G-Code OutComes Score AM-PAC Score Goals Short term goals Time Frame for Short term goals: 2 weeks Short term goal 1: independent bed mobility- NOT MET Short term goal 2: independent sit to/from stand- NOT MET Short term goal 3: independent ambulation 250 feet with device PRN- NOT MET Short term goal 4: up/down flight of steps independent with rail- NOT MET Short term goal 5: independent with P&C exercises with use of instruction sheet- NOT MET Short term goal 6: independent with home walking program- NOT MET Short term goal 7: independent with incentive spirometer use and clearing secretions- NOT MET Patient Goals Patient goals : None stated. Plan Plan Times per week: 5-7 Times per day: Daily Plan weeks: 2 Current Treatment Recommendations: Strengthening, Gait Training, ROM, Balance Training, Functional Mobility Training, Transfer Training, Stair training(Chest PT - P&C ex, IS, home walking program) Safety Devices Type of devices: Call light within reach, Patient at risk for falls, Nurse notified, All fall risk precautions in place, Left in bed Restraints Initially in place: No Therapy Time Individual Concurrent Group Co-treatment Time In 1405 Time Out 1430 Minutes 25 Timed Code Treatment Minutes: (GT, TP) Chata Mckenzie COMPUTER FORENSIC EXAMINER * Alicia Carroll APRN - CNP - 12/18/2019 2:04 PM EDT Cardiothoracic Surgery Interval Note 12/18/2019 Patient:Douglas Callaway (1955, 64 y.o., male) Vitals: BP 125/79 Pulse 106 Temp 98.8 F (37.1 C) Resp 18 Ht 5' 8 (1.727 m) Wt 172 lb (78 kg) SpO2 97% BMI 26.15 kg/m Intervention/Significant Event: Chest tubes assessed: no air leak, subcutaneous air noted. Chest tubes removed without difficulty and dressing applied. Patient tolerated well. Patient and nurse educated on possible complications toobserve for. Will continue to monitor. * Elba Harper, OT - 12/18/2019 2:03 PM EDT Occupational Therapy Occupational Therapy Initial Assessment Date: 12/18/2019 Patient Name: Douglas Callaway Jr. : 1955 OT wearing N95 mask throughout entire session Date of Service: 12/18/2019 Discharge Recommendations: Home with assist PRN, Home with Home health OT Assessment Performance deficits / Impairments: Decreased functional mobility ;Decreased ADL status;Decreased safe awareness;Decreased cognition;Decreased endurance;Decreased balance;Decreased high-level IADLs Assessment: OT eval completed. Pt presents with above deficits limiting functional indep. Anticipate pt will progress to home with assist from and home therapy. Cont OT to maximize indep and safety with ADL and function for safe return home. Prognosis: Good Decision Making: Medium Complexity Exam: [facility] OT Education: OT Role;Plan of Care;Precautions;ADL Adaptive Strategies;Transfer Training REQUIRES OT FOLLOW UP: Yes Activity Tolerance Activity Tolerance: Patient Tolerated treatment well Safety Devices Safety Devices in place: Yes Type of devices: Patient at risk for falls;Left in bed;Call light within reach;Nurse notified Restraints Initially in place: No Patient Diagnosis(es): There were no encounter diagnoses. has a past medical history of Bipolar 2 disorder (HCC), CAD (coronary artery disease), Cancer (HCC), Cerebral artery occlusion with cerebral infarction (HCC), Depression, Diabetes mellitus (HCC), Elevated LFTs, GERD (gastroesophageal reflux disease), Hepatitis A, Hyperlipidemia, Hypertension, Insomnia, CABRERA (obstructive sleep apnea), and TIA (transient ischemic attack). has a past surgical history that includes Cataract removal; Tonsillectomy; [place] tooth extraction;and Colonoscopy. Restrictions Restrictions/Precautions Restrictions/Precautions: Cardiac, Fall Risk, Modified Diet(carb control, no active bed alarm) Required Braces or Orthoses?: No Position Activity Restriction Sternal Precautions: No Pushing, No Pulling, 10# Lifting Restrictions Sternal Precautions: YES Other position/activity restrictions: chest tubes x3 to water seal Subjective General Chart Reviewed: Yes Patient assessed for rehabilitation services?: Yes Family / Caregiver Present: No Diagnosis: Pt admitted with NSTEMI and new CAD, S/P CABG x3 12/15/19. Subjective Subjective: Pt reclined in bed, agreeable to OT eval. General Comment Comments: R hand dominant Vital Signs Patient Currently in Pain: Denies Social/Functional History Social/Functional History Lives With: Spouse Type of Home: House Home Layout: Multi-level, Bed/Bath upstairs(1/2 bath lower level, 4steps with bilat rail to 2nd floor and 8 steps with rail to bed and bath level) Home Access: Level entry Bathroom Shower/Tub: Tub/Shower unit Bathroom Toilet: Standard Bathroom Equipment: (none) Bathroom Accessibility: Accessible Home Equipment: Cane ADL Assistance: Independent Homemaking Assistance: Independent Homemaking Responsibilities: Yes Ambulation Assistance: Independent Transfer Assistance: Independent Active Housing And Residence Life Director: Yes 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 Objective Vision: Within Functional Limits Vision Exceptions: Wears glasses for reading Hearing: Within functional limits Orientation Overall Orientation Status: Within Functional Limits Observation/Palpation Posture: Good Observation: sternal incision intact Balance Sitting Balance: Supervision Standing Balance: Contact guard assistance Functional Mobility Functional - Mobility Device: No device Activity: To/from bathroom Assist Level: Contact guard assistance Functional Mobility Comments: 3 chest tubes in tow by therapist, mildly wider INES. Toilet Transfers Toilet - Technique: Ambulating Equipment Used: Standard bedside commode Toilet Transfer: Contact guard assistance Toilet Transfers Comments: cues for sternal precautions ADL Feeding: Supervision Grooming: Stand by assistance UE Bathing: Stand by assistance LE Bathing: Contact guard assistance UE Dressing: Stand by assistance LE Dressing: Moderate assistance Toileting: Contact guard assistance Additional Comments: Treatment: Pt ediucated in sternal precautions and how they affect ADL. Pt able to don/doff slipper socks with supv using figure 4 method. Pt mod assist to thread LEs into pants but then able to pull pants over thighs and buttocks with CGA. CGA simulated toileting activity. CGAto wash hands while standing at sink. All other levels estimated. Tone RUE RUE Tone: Normotonic Tone LUE LUE Tone: Normotonic Coordination Movements Are Fluid And Coordinated: Yes Bed mobility Supine to Sit: Minimal assistance Sit to Supine: Minimal assistance Scooting: Contact guard assistance Comment: cues for sternal precautions Transfers Sit to stand: Contact guard assistance Stand to sit: Contact guard assistance Transfer Comments: cues for sternal precautions Cognition Overall Cognitive Status: [facility] Cognition Comment: ID's , age, president and 911, 3/3 word recall afetr 1 min. Pt able to recallall sternal precautions but has difficulty following during tasks. Sensation Overall Sensation Status: WFL LUE AROM (degrees) LUE AROM : WFL RUE AROM (degrees) RUE AROM : WFL LUE Strength LUE Strength Comment: shldr NT due to precautions but at least 3/5, distal 4/5 RUE Strength RUE Strength Comment: shldr NT due to precautions but at least 3/5, distal 4/5 Plan Plan Times per week: 5x Plan weeks: 2 weeks Current Treatment Recommendations: Strengthening, ROM, Balance Training, Functional Mobility Training, Endurance Training, Safety Education & Training, Patient/Caregiver Education & Training,Equipment Evaluation, Education, & procurement, Positioning, Self-Care / ADL, Home Management Training, Cognitive/Perceptual Training OutComes Score [facility] Daily Activity Inpatient How much help for putting on and taking off regular lower body clothing?: A Little How much help for Bathing?: A Little How much help for Toileting?: A Little How much help for putting on and taking off regular upper body clothing?: A Little How much help for taking care of personal grooming?: A Little How much help for eating meals?: None [facility] Inpatient Daily Activity Raw Score: 19 [facility] Inpatient ADL T-Scale Score : 40.22 ADL Inpatient CMS 0-100% Score: 42.8 ADL Inpatient [facility] G-Code Modifier : CK Goals Short term goals Time Frame for Short term goals: 2 weeks Short term goal 1: Modif indep LE ADL Short term goal 2: Modif indep grooming task while standing at sink Short term goal 3: Modif indep toilet transfer and toileting Short term goal 4: Soila findep item retrieval from cupboards at various heights with good safety techniques Short term goal 5: Pt will recall 3/3 sternal precautions and follow consistently without cues Patient Goals Patient goals : to go home Therapy Time Individual Concurrent Group Co-treatment Time In 1320 Time Out 1345 Minutes 25 Timed Code Treatment Minutes: 11 Minutes(ADL) Goals and/or treatment plan was established in collaboration with patient/family/other representatives. Patient's Occupational Therapy Plan of Care supervision is transferred to [facility] Occupational Therapist. Elba Harper OTR/L * Janet Zaman APRN - CNP - 12/18/2019 1:38 PM EDT [facility] [address] [id number] Dept: [phone] Loc: [phone] Visit Date: 12/18/2019 Patient Chart, Consults notes, Labs, Radiology studies reviewed via EMR. No in person visit was done at this time. No audio visit was done at this time. HPI: Douglas Brianna Callaway Jr. is a 64 y.o. male who presents today for: Dm with hyperglycemia HPI: Chief complaint: Chest pain/shortness of breath reason for consult: Diabetes mellitus Patient on sq insulin Lantus 18 units daily and hlog 5/5/5/0 w ss On diet cardiac The patient was well controlled on metformin 1000 mg twice daily prior to admission Bg now 191, 183 Past Medical History: Diagnosis Date Bipolar 2 disorder (HCC) CAD (coronary artery disease) Cancer (HCC) skin cancer forehead and left hand Cerebral artery occlusion with cerebral infarction (HCC) 2003 Depression Diabetes mellitus (HCC) Elevated LFTs GERD (gastroesophageal reflux disease) Hepatitis A Hyperlipidemia Hypertension Insomnia CABRERA (obstructive sleep apnea) TIA (transient ischemic attack) Past Surgical History: Procedure Laterality Date CATARACT REMOVAL COLONOSCOPY TONSILLECTOMY WISDOM TOOTH EXTRACTION Current Facility-Administered Medications Medication Dose Route Frequency Provider Last Rate Last Dose oxyCODONE (ROXICODONE) immediate release tablet 5 mg 5 mg Oral Q6H PRN KHARI Shoemaker CNP Or oxyCODONE (ROXICODONE) immediate release tablet 10 mg 10 mg Oral Q6H PRN KHARI Shoemaker CNP dorzolamide-timolol (COSOPT) 22.3-6.8 MG/ML ophthalmic solution 1 drop 1 drop Both Eyes BID Alicia Carroll APRN - BAND NAILER 1 drop at 12/18/19 0917 insulin glargine (LANTUS) injection vial 18 Units 18 Units Subcutaneous Daily Gerald Hernandez MD 18 Units at 12/18/19 0919 insulin lispro (HUMALOG) injection vial 5 Units 5 Units Subcutaneous TID Gerald Hernandez MD 5 Units at 12/18/19 09 insulin lispro (HUMALOG) injection vial 0-6 Units 0-6 Units Subcutaneous TID Gerald Hernandez MD 1Units at 12/18/19 1307 pantoprazole (PROTONIX) tablet 40 mg 40 mg Oral QAM AC SepKHARI - PHYSICAL SECURITY SPECIALIST 40 mg at 12/18/19 0529 enoxaparin (LOVENOX) injection 40 mg 40 mg Subcutaneous Daily SepKHARI PHYSICAL SECURITY SPECIALIST 40 mg at 12/18/19916 amLODIPine (NORVASC) tablet 5 mg 5 mg Oral Daily SepKHARI 5 mg at 12/18/19917 metoprolol tartrate (LOPRESSOR) tablet 50 mg 50 mg Oral BID SepKHARI - PHYSICAL SECURITY SPECIALIST 50 mg at sodium chloride flush 0.9 % injection 10 mL 10 mL Intravenous 2 times per day Colton Marroquin MD 10mL at 12/17/192105 sodium chloride flush 0.9 % injection 10 mL 10 mL Intravenous PRN Colton Marroquin MD potassium chloride 20 mEq/50 mL IVPB (Central Line) 20 mEq Intravenous PRN Colton Marroquin MD Stopped at 12/15/19 1630 magnesium sulfate 2 g in 50 mL IVPB premix 2 g Intravenous PRN Colton Marroquin MD calcium gluconate 2 g in sodium chloride 0.9 % 100 mL IVPB 2 g Intravenous PRN Colton Marroquin MD polyethylene glycol (GLYCOLAX) packet 17 g 17 g Oral Daily Colton Marroquin MD 17 g at 12/18/19 09 sennosides-docusate sodium (SENOKOT-S) 8.6-50 MG tablet 2 tablet 2 tablet Oral Nightly Colton Marroquin MD 2 tablet at 12/17/192104 magnesium hydroxide (MILK OF MAGNESIA) 400 MG/5ML suspension 30 mL 30 mL Oral Daily PRN Colton Marroquin MD bisacodyl (DULCOLAX) suppository 10 mg 10 mg Rectal Daily PRN Colton Marroquin MD ondansetron (ZOFRAN) injection 4 mg 4 mg Intravenous Q8H PRN Colton Marroquin MD 4 mg at 12/16/19 1025 mupirocin (BACTROBAN) 2 % ointment Nasal BID Colton Marroquin MD potassium chloride (KLOR-CON M) extended release tablet 20 mEq 20 mEq Oral PRN Colton Marroquin MD atorvastatin (LIPITOR) tablet 80 mg 80 mg Oral Nightly Colton Marroquin MD 80 mg at 12/17/19 2105 aspirin EC tablet 81 mg 81 mg Oral Daily Colton Marroquin MD 81 mg at 12/18/19 0917 glucose (GLUTOSE) 40 % oral gel 15 g 15 g Oral PRN Colton Marroquin MD dextrose 50 % IV solution 12.5 g Intravenous PRN Colton Marroquin MD glucagon (rDNA) injection 1 mg 1 mg Intramuscular PRN Colton Marroquin MD dextrose 5 % solution 100 mL/hr Intravenous PRN Colton Marroquin MD lidocaine 4 % external patch 2 patch 2 patch Transdermal Daily KHARI Izaguirre BAND NAILER 2 patch at12/18/19 0917 acetaminophen (TYLENOL) tablet 1,000 mg 1,000 mg Oral TID KHARI Thakur CNP 1,000 mg at 12/18/19 0917 No Known Allergies Family History Problem Relation Age of Onset Heart Disease Mother Heart Disease Father Cancer Father Social History Tobacco Use Smoking status: Former Smoker Packs/day: 1.00 Types: Cigarettes Smokeless tobacco: Never Used Tobacco comment: 1 ppd times 5 yrs, quit 1975 Substance Use Topics Alcohol use: Yes Comment: once a month Subjective: Review of Systems Unable to perform ROS: Other Objective: BP 125/79 Pulse 106 Temp 98.8 F (37.1 C) Resp 18 Ht 5' 8 (1.727 m) Wt 172 lb (78 kg) SpO2 97% BMI 26.15 kg/m Physical Exam Due to the current efforts to prevent transmission of COVID-19 and also the need to preserve PPE for other caregivers, a [id number] encounter with the patient was not performed. That being said, all relevant records and diagnostic tests were reviewed, including laboratory results and imaging. Please reference any relevant documentation elsewhere. Care will be coordinated with the primary service. Diagnostic Workup: Results for DOUGLAS CALLAWAY JR. ( ) as of 12/18/2019 13:38 Ref. Range 12/18/2019 03:25 Sodium Latest Ref Range: 135 - 145 mmol/L 136 Potassium Latest Ref Range: 3.5 - 5.1 mmol/L 4.1 Chloride Latest Ref Range: 98 - 107 mmol/L 103 CO2 Latest Ref Range: 22 - 30 mmol/L 23 BUN Latest Ref Range: 7 - 20 mg/dL 37 (H) Creatinine Latest Ref Range: 0.52 - 1.25 mg/dL 1.17 Anion Gap Latest Units: NA 10 eGFR Latest Ref Range: >60 mL/min >60.0 EGFR IF NonAfrican Faroese Latest Ref Range: >60 mL/min >60.0 Glucose Latest Ref Range: 70 - 100 mg/dL 191 (H) Calcium Latest Ref Range: 8.4 - 10.4 mg/dL 9.0 Results for DOUGLAS CALLAWAY JR. ( ) as of 12/18/2019 13:38 Ref. Range 12/12/2019 13:22 Hemoglobin A1C Latest Ref Range: 4.0 - 5.7 % 7.0 (H) Assessment: Type 2 diabetes Well controlled by A1c on metformin 1000 mg twice daily On sq insulin now Anticipate will be able to be well controlled with probably metformin on discharge 12/15/19 underwent: CABG X 3: LIUMA to LAD, V to D1, V to D2; EVH (Left thigh), ALFREDITO Plan: Explained all of recommendations below to patient/care team, reviewed all of labs above with them as well: I am going to continue the patient on sq insulin at this time. I anticipate he will not need insulin on discharge but can be controlled with oral glucose lowering agents. He was well controlled with metformin prior to admission. Continue same doses for now Time spent with patient 25 minutes with more than 51% of that time spent in counseling as documented in note. I have reviewed previous note, referral note and previous work up. KHARI Murray CNP * Alicia Carroll, KHARI - BAND NAILER - 12/18/2019 5:14 AM EDT Cardiothoracic Surgery Progress Note 12/18/2019 Subjective: Procedure/Surgery/Following For: 12/14: CABGx3 (ASHLEY to LAD, V to D1, V to D2) EVH (left thigh) and ALFREDITO Interval History: 12/17-POD#3: VSS; off O2 currently; pain control- UO-1.7L/24hrs; CT-330cc/24hrs; 80cc/12hrs; no air leak of fluctuation noted. Subjective: doing well had a rough night per patient. No acute hemodynamic events. Having a lot of pain likely related to chest tubes (will hopefully d/c today). No other issues or concerns at thistime. Objective: BP (!) 96/57 Pulse 106 Temp 98.5 F (36.9 C) (Oral) Resp 20 Ht 5' 8 (1.727 m) Wt 172 lb (78 kg) SpO2 97% BMI 26.15 kg/m I&O's/Labs/Diagnostics: Reviewed in EMR Physical Exam Constitutional: No acute distress and well-nourished Psychiatric: Alert and oriented and mood and affect is appropriate Respiratory: Lungs are diminished in bases, with no rales or wheezes noted, respiratory effort is normal and symmetrical and with good air movement bilaterally Heart/Vasc: Normal rate, regular rhythm, normal S1 S2, no murmur, gallop or friction rub noted and peripheral pulses equal, intact, bilaterally Abdomen/: Normal BS, abdomen soft, non-tender, non-distended and voids appropriately Skin: Skin color normal for ethnicity, warm to touch, well perfused, nails clean and free of pitting bilaterally, cap refill <2secs and BLE with no edema noted Incisions: Healing appropriately, well approximated, no drainage noted, and with no signs of infection Assessment/Plan: 1. CAD/HTN/HLP CABGx3 (ASHLEY to LAD, V to D1, V to D2) EVH (left thigh) and ALFREDITO on 12/15/19 EF: 55%-12/15/19 Continue care per orders: d/c lasix; walk this morning then likely d/c chest tubes; pain control. Added PRN motrin if needed. OOB ambulate per protocol up for all meals. pulm hygiene aggressive PT Cardiac Core Medications: ASA, Statin and BB Invasive Lines Management: Central Line: Inserted: 12/14 Blood Conservation: 12/14- 2units Plts. DVT prophylaxis: TEDs, SCDs and Lovenox 2. Post Operative Pulmonary Management with hx CABRERA Normal Post-Operative Course weaned of O2 CCM:consulted-managing Maintain SpO2 >92% and Increase Activity, Encourage Pulmonary Hygiene: Acapella, Incentive Spirometry, Cough and Deep Breathing 3. Type 2 DM Per Endo; subcutaneous regimen Medications Prior to Admission: Prior to Admission medications Medication Sig Start Date End Date Taking? Authorizing Provider mupirocin (BACTROBAN NASAL) 2 % nasal ointment Apply liberal amount on a q-tip and place in each nostril the night before surgery and then again the morning of surgery 12/12/19 Yes KHARI Shoemaker CNP dorzolamide-timolol (COSOPT) 22.3-6.8 MG/ML ophthalmic solution Place 1 drop into both eyes 2 timesdaily Yes Historical Provider, DULoxetine (CYMBALTA) 60 MG extended release capsule Take 60 mg by mouth daily Yes Historical Provider, pantoprazole (PROTONIX) 40 MG tablet Take 40 mg by mouth daily Yes Historical Provider, hydroCHLOROthiazide (HYDRODIURIL) 25 MG tablet Take 25 mg by mouth daily Historical Provider, amLODIPine (NORVASC) 10 MG tablet Take 10 mg by mouth daily Historical Provider, aspirin 81 MG tablet Take 81 mg by mouth daily Historical Provider, metFORMIN (GLUCOPHAGE) 1000 MG tablet Take 1,000 mg by mouth 2 times daily (with meals) Historical Provider, metoprolol tartrate (LOPRESSOR) 50 MG tablet Take 50 mg by mouth 2 times daily Historical Provider, lisinopril (PRINIVIL;ZESTRIL) 10 MG tablet Take 20 mg by mouth daily Historical Provider, * Wanda Bose RCP - 12/17/2019 11:12 PM EDT [facility] Respiratory Care Department Progress Note Patient was seen in attempts to fulfill CPAP/BiPAP/AutoPAP order. Patient refused PAP therapy/studyat this time. Patient was educated on medical need and reasoning for physician order to ensure patient was making an informed medical decision. All of the patient's questions were answered at this time and patient was informed that if the patient changes their mind regarding wearing PAP to hit their call light or inform their nurse to contact Respiratory. A second, consecutive night of refusing PAP therapy/study results in order completion in the EMR. If future CPAP/BiPAP/AutoPAP therapy or study is indicated please place another order in the EMR and the assigned Respiratory Therapist will reattempt to fulfill orders. Comment or reasoning for refusal: pt can't tolerate the air always leaking out and has tried all other masks. Pt wishes to stay off tonight. Thank you for involving Respiratory in the care of this patient, * Dasha Freed, EDUCATIONAL AUDIOLOGIST - BAND NAILER - 12/17/2019 12:07 PM EDT PAGING: The Acute Pain Service providers are available by pager. Please reference [employer] and/or [facility] Phonebook for Pain Management Provider MEDICAL LEAD and direct all questions to the provider listed. 12/17/2019 Referring Physician: Colton Marroquin MD Subjective: We have been asked to see this 64 y.o. male for complex pain management s/p CABG X 3: LIUMA to LAD,V to D1, V to D2; EVH (Left thigh), ALFREDITO on 12/15/2019. Patient extubated 12/14 Chart and Nursing notes reviewed. All relevant records and diagnostic tests were reviewed, including laboratory results and imaging. Care will be coordinated with the primary team as appropriate. Social History Tobacco Use Smoking Status Former Smoker Packs/day: 1.00 Types: Cigarettes Smokeless Tobacco Never Used Tobacco Comment 1 ppd times 5 yrs, quit 1976 Social History Substance and Sexual Activity Alcohol Use Yes Comment: once a month Social History Substance and Sexual Activity Drug Use Never Pain Management: n/a The patient's medical history and physical assessment, medications, allergies, patient's current medical condition, and labs were reviewed as part ofthis consultation. [x] Patient's Medications have been reviewed. [x] Patient's OARRS report (PDMP) have been reviewed. 10/17/2018 1 10/13/2018 [place] 10 Mg Capsule 2.00 2 Objective Findings: Height: 5' 8 (172.7 cm) Weight: 172 lb (78 kg) BMI (Calculated): 26.2 Vital signs: Blood pressure 123/75, pulse 112, temperature 98.4 F (36.9 C), temperature source Oral, resp. rate 18, height 5' 8 (1.727 m), weight 172 lb (78 kg), SpO2 98 %. Lab Results Component Value Date/Time HGB 8.0 (L) 12/17/2019 03:08 AM HCT 24.4 (L) 12/17/2019 03:08 AM PLT 165 12/17/2019 03:08 AM WBC 11.3 (H) 12/17/2019 03:08 AM PROTIME 12.6 (H) 12/15/2019 11:50 AM INR 1.2 (H) 12/15/2019 11:50 AM APTT 24.8 12/15/2019 11:50 AM NA 136 12/17/2019 03:08 AM K 4.6 12/17/2019 03:08 AM BUN 25 (H) 12/17/2019 03:08 AM CREATININE 1.17 12/17/2019 03:08 AM GLUCOSE 82 12/17/2019 03:08 AM Allergies: Patient has no known allergies. Past Medical History: Diagnosis Date Bipolar 2 disorder (HCC) CAD (coronary artery disease) Cancer (HCC) skin cancer forehead and left hand Cerebral artery occlusion with cerebral infarction (HCC) 2003 Depression Diabetes mellitus (HCC) Elevated LFTs GERD (gastroesophageal reflux disease) Hepatitis A Hyperlipidemia Hypertension Insomnia CABRERA (obstructive sleep apnea) TIA (transient ischemic attack) Past Surgical History: Procedure Laterality Date CATARACT REMOVAL COLONOSCOPY TONSILLECTOMY WISDOM TOOTH EXTRACTION Family History Problem Relation Age of Onset Heart Disease Mother Heart Disease Father Cancer Father Patient Active Problem List Diagnosis CAD in [place] artery CAD, multiple vessel Hyperglycemia S/P CABG x 3 EQUIPMENT SCHEDULER: None Physical Exam Vitals signs and nursing note reviewed. Pain Management Adjuvants: APAP Morphine- 12 mg used 4/10 Oxycodone- 30 mg Oxycodone used 4/10 LP Assessment: 1. Acute incisional chest pain s/p CABG 10. Pain Management Plan: Ofirmev 1000 mg IVPB TID scheduled ATC x 3 doses. Then: Acetaminophen 1000 mg po TID scheduled ATC. First dose: 12/18/19 @ 14:00. Liver enzymes WNL, last checked: 12/11. ^alk phos, monitor. Oxycodone 5 - 10 mg po Q6 hours prn moderate to severe breakthrough pain. Morphine discontinued per primary. Lidocaine patches x 2. Cut [address] as needed. Patient currently receiving opioids for pain management necessitating a bowel regimen. Recommend initiating scheduled Sennakot-S 8.6/50mg, 1 tablet PO BID. Would also recommend Milk of Magnesia 400mg/5ml, administer 30mL by mouth daily PRN. Will sign off at this time. Thank you for allowing us to participate in the care of this patient. PAGING: The Acute Pain Service providers are available by pager. Please reference [facility] and/or [facility] Phonebook for Pain Management Provider MEDICAL LEAD and direct all questions to the provider listed. [facility] Pain Management has agreed to see our patients after they are discharged. Patients should be instructed to call [phone]. Please ask patient to sign a medical release andsend medical records to [facility].They will contact the patient with an appointment time. * Gerald Hernandez MD - 12/17/2019 9:49 AM EDT [facility] [address] [place] [id number] Dept: [phone] Loc: [phone] Visit Date: 12/17/2019 HPI: Douglas Callaway Jr. is a 64 y.o. male who presents today for: No chief complaint on file. HPI: Chief complaint: Chest pain/shortness of breath reason for consult: Diabetes mellitus Patient still on insulin drip On diet cardiac On insulin drip from 1.5-3.5 units per hour The patient was well controlled on metformin 1000 mg twice daily prior to admission Past Medical History: Diagnosis Date Bipolar 2 disorder (HCC) CAD (coronary artery disease) Cancer (HCC) skin cancer forehead and left hand Cerebral artery occlusion with cerebral infarction (HCC) 2003 Depression Diabetes mellitus (HCC) Elevated LFTs GERD (gastroesophageal reflux disease) Hepatitis A Hyperlipidemia Hypertension Insomnia CABRERA (obstructive sleep apnea) TIA (transient ischemic attack) Past Surgical History: Procedure Laterality Date CATARACT REMOVAL COLONOSCOPY TONSILLECTOMY WISDOM TOOTH EXTRACTION Current Facility-Administered Medications Medication Dose Route Frequency Provider Last Rate Last Dose oxyCODONE (ROXICODONE) immediate release tablet 5 mg 5 mg Oral Q6H PRN KHARI Shoemaker CNP Or oxyCODONE (ROXICODONE) immediate release tablet 10 mg 10 mg Oral Q6H PRN KHARI Shoemaker CNP dorzolamide-timolol (COSOPT) 22.3-6.8 MG/ML ophthalmic solution 1 drop 1 drop Both Eyes BID KHARI Shoemaker CNP 1 drop at 12/17/19 0820 furosemide (LASIX) injection 20 mg 20 mg Intravenous BID KHARI Shoemaker CNP pantoprazole (PROTONIX) tablet 40 mg 40 mg Oral QAM AC Sep HKARI Ambrocio - PHYSICAL SECURITY SPECIALIST 40 mg at 12/17/19 0616 enoxaparin (LOVENOX) injection 40 mg 40 mg Subcutaneous Daily Sep AmbrocioKHARI PHYSICAL SECURITY SPECIALIST 40 mg at 12/17/19 0820 amLODIPine (NORVASC) tablet 5 mg 5 mg Oral Daily SepKHARI PHYSICAL SECURITY SPECIALIST 5 mg at 12/17/19 0820 metoprolol tartrate (LOPRESSOR) tablet 50 mg 50 mg Oral BID Sep AmbrocioKHARI PHYSICAL SECURITY SPECIALIST 50 mg at 12/16/200810 sodium chloride flush 0.9 % injection 10 mL 10 mL Intravenous PRN Colton Marroquin MD 0.45 % sodium chloride infusion Intravenous Continuous Colton Marroquin MD 20 mL/hr at 12/17/19 0720 sodium chloride flush 0.9 % injection 10 mL 10 mL Intravenous 2 times per day Colton Marroquin MD 10mL at 12/17/19 0720 sodium chloride flush 0.9 % injection 10 mL 10 mL Intravenous PRN Colton Marroquin MD potassium chloride 20 mEq/50 mL IVPB (Central Line) 20 mEq Intravenous PRN Colton Marroquin MD Stopped at 12/15/19 1630 magnesium sulfate 2 g in 50 mL IVPB premix 2 g Intravenous PRN Colton Marroquin MD calcium gluconate 2 g in sodium chloride 0.9 % 100 mL IVPB 2 g Intravenous PRN Colton Marroquin MD polyethylene glycol (GLYCOLAX) packet 17 g 17 g Oral Daily Colton Marroquin MD 17 g at 12/17/19 0820 sennosides-docusate sodium (SENOKOT-S) 8.6-50 MG tablet 2 tablet 2 tablet Oral Nightly Colton Marroquin MD 2 tablet at 12/16/19 2104 magnesium hydroxide (MILK OF MAGNESIA) 400 MG/5ML suspension 30 mL 30 mL Oral Daily PRN Colton Marroquin MD bisacodyl (DULCOLAX) suppository 10 mg 10 mg Rectal Daily PRN Colton Marroquin MD ondansetron (ZOFRAN) injection 4 mg 4 mg Intravenous Q8H PRN Colton Marroquin MD 4 mg at 12/16/19 1025 mupirocin (BACTROBAN) 2 % ointment Nasal BID Colton Marroquin MD potassium chloride (KLOR-CON M) extended release tablet 20 mEq 20 mEq Oral PRN Colton Marroquin MD atorvastatin (LIPITOR) tablet 80 mg 80 mg Oral Nightly Colton Marroquin MD 80 mg at 12/16/19 2100 aspirin EC tablet 81 mg 81 mg Oral Daily Colton Marroquin MD 81 mg at 12/17/19 0820 insulin regular (MYXREDLIN) 100 units in sodium chloride 0.9 % 100 ml infusion 1 Units/hr Intravenous Continuous Colton Marroquin MD 3.5 mL/hr at 12/17/19 0910 3.5 Units/hr at 12/17/19 0910 glucose (GLUTOSE) 40 % oral gel 15 g 15 g Oral PRN Colton Marroquin MD dextrose 50 % IV solution 12.5 g Intravenous PRN Colton Marroquin MD glucagon (rDNA) injection 1 mg 1 mg Intramuscular PRN Colton Marroquin MD dextrose 5 % solution 100 mL/hr Intravenous PRN Colton Marroquin MD insulin regular (HUMULIN R;NOVOLIN R) injection 4 Units 4 Units Intravenous PRN Colton Marroquin MD 4 Units at 12/16/19 1910 lidocaine 4 % external patch 2 patch 2 patch Transdermal Daily Dasha Freed EDUCATIONAL AUDIOLOGIST - BAND NAILER 2 patch at12/17/19 0820 acetaminophen (TYLENOL) tablet 1,000 mg 1,000 mg Oral TID Eve Carrion KHARI - BAND NAILER 1,000 mg at 12/17/19 0820 No Known Allergies Family History Problem Relation Age of Onset Heart Disease Mother Heart Disease Father Cancer Father Social History Tobacco Use Smoking status: Former Smoker Packs/day: 1.00 Types: Cigarettes Smokeless tobacco: Never Used Tobacco comment: 1 ppd times 5 yrs, quit 1976 Substance Use Topics Alcohol use: Yes Comment: once a month Subjective: Review of Systems Constitutional: Negative for activity change. Objective: BP 114/69 Pulse 97 Temp 97.6 F (36.4 C) (Axillary) Resp 20 Ht 5' 8 (1.727 m) Wt 172 lb (78 kg) SpO2 100% BMI 26.15 kg/m Physical Exam Due to the current efforts to prevent transmission of COVID-19 and also the need to preserve PPE for other caregivers, a [id number] encounter with the patient was not performed. That being said, all relevant records and diagnostic tests were reviewed, including laboratory results and imaging. Please reference any relevant documentation elsewhere. Care will be coordinated with the primary service. Diagnostic Workup: Results for DOUGLAS CALLAWAY JR. ( ) as of 12/17/2019 09:52 Ref. Range 12/17/2019 06:12 12/17/2019 06:53 12/17/2019 07:59 12/17/2019 09:02 POC Glucose Latest Ref Range: 70 - 100 mg/dL 85 101 (H) 106 (H) 166 (H) Results for DOUGLAS CALLAWAY JR. ( ) as of 12/17/2019 09:52 Ref. Range 12/12/2019 13:22 12/15/2019 11:50 12/16/2019 01:17 12/17/2019 03:08 Creatinine Latest Ref Range: 0.52 - 1.25 mg/dL 1.33 (H) 0.95 0.79 1.17 Results for DOUGLAS CALLAWAY JR. ( ) as of 12/17/2019 09:52 Ref. Range 12/12/2019 13:22 Hemoglobin A1C Latest Ref Range: 4.0 - 5.7 % 7.0 (H) Assessment: Type 2 diabetes Well controlled by A1c on metformin 1000 mg twice daily Switching to subcutaneous insulin today Anticipate will be able to be well controlled with probably metformin on discharge 12/15/19 underwent: CABG X 3: LIUMA to LAD, V to D1, V to D2; EVH (Left thigh), ALFREDITO Plan: Explained all of recommendations below to patient/care team, reviewed all of labs above with them as well: I am going to switch the patient to subcutaneous insulin in accordance with his current needs. I anticipate he will not need insulin on discharge but can be controlled with oral glucose lowering agents. He was well controlled with metformin prior to admission No follow-ups on file. Gerald Hernandez MD * Alicia Carroll APRN - CNP - 12/17/2019 8:54 AM EDT After rounds: added lasix BID; continue plan of day * Alicia Carroll APRN - CNP - 12/17/2019 6:08 AM EDT Cardiothoracic Surgery Progress Note 12/17/2019 Subjective: Procedure/Surgery/Following For: 12/14: CABGx3 (ASHLEY to LAD, V to D1, V to D2) EVH (left thigh) and ALFREDITO Interval History: 12/16-POD#2: VSS; 2LNC; pain control- UO1.2L/24hrs; voiding post toscano pull; CT- 420cc/24hrs; no air leak of fluctuation noted. SCr 0.79-->1.17 Subjective: Up in chair doing relatively well; did complain of some midsternal chest pain but resolved after PRN medication. Already ambulated once around bose this am. Tolerating diet-->minimal PO intake. Past Medical/Surgical/Family/Social History: Reviewed in EMR and are unchanged from current admission Objective: BP 118/77 Pulse 88 Temp 97.6 F (36.4 C) (Axillary) Resp 18 Ht 5' 8 (1.727 m) Wt 172 lb (78 kg) SpO2 97% BMI 26.15 kg/m I&O's/Labs/Diagnostics: Reviewed in EMR Physical Exam Constitutional: No acute distress and well-nourished Psychiatric: Alert and oriented and mood and affect is appropriate Respiratory: Lungs are diminished in bases, with no rales or wheezes noted, respiratory effort is normal and symmetrical and with good air movement bilaterally Heart/Vasc: Normal rate, regular rhythm, normal S1 S2, no murmur, gallop or friction rub noted and peripheral pulses equal, intact, bilaterally Abdomen/: Normal BS, abdomen soft, non-tender, non-distended and voids appropriately Skin: Skin color normal for ethnicity, warm to touch, well perfused, nails clean and free of pitting bilaterally, cap refill <2secs and BLE with no edema noted Incisions: Healing appropriately, well approximated, no drainage noted, and with no signs of infection Assessment/Plan: 1. CAD/HTN/HLP CABGx3 (ASHLEY to LAD, V to D1, V to D2) EVH (left thigh) and ALFREDITO on 12/15/19 EF: 55%-12/15/19 Continue care per orders: elevated Scr d/c scheduled toradol; PRN motrin; maintain CT to waterseal today; likely d/c tomorrow. OOB ambulate per protocol; encourage PO intake. Reordered home eye drops Cardiac Core Medications: ASA, Statin and BB Invasive Lines Management: Central Line: Inserted: 12/14 Blood Conservation: 12/14- 2units Plts. DVT prophylaxis: TEDs, SCDs and Lovenox 2. Post Operative Pulmonary Management with hx CABRERA Normal Post-Operative Course CCM:consulted-managing Maintain SpO2 >92% and Increase Activity, Encourage Pulmonary Hygiene: Acapella, Incentive Spirometry, Cough and Deep Breathing 3. Type 2 DM Per Endo; on insulin gtt. 4. GERD PPI Medications Prior to Admission: Prior to Admission medications Medication Sig Start Date End Date Taking? Authorizing Provider mupirocin (BACTROBAN NASAL) 2 % nasal ointment Apply liberal amount on a q-tip and place in each nostril the night before surgery and then again the morning of surgery 12/12/19 Yes Alicia Carroll, EDUCATIONAL AUDIOLOGIST - BAND NAILER dorzolamide-timolol (COSOPT) 22.3-6.8 MG/ML ophthalmic solution Place 1 drop into both eyes 2 timesdaily Yes Historical Provider, DULoxetine (CYMBALTA) 60 MG extended release capsule Take 60 mg by mouth daily Yes Historical Provider, pantoprazole (PROTONIX) 40 MG tablet Take 40 mg by mouth daily Yes Historical Provider, hydroCHLOROthiazide (HYDRODIURIL) 25 MG tablet Take 25 mg by mouth daily Historical Provider, amLODIPine (NORVASC) 10 MG tablet Take 10 mg by mouth daily Historical Provider, aspirin 81 MG tablet Take 81 mg by mouth daily Historical Provider, metFORMIN (GLUCOPHAGE) 1000 MG tablet Take 1,000 mg by mouth 2 times daily (with meals) Historical Provider, metoprolol tartrate (LOPRESSOR) 50 MG tablet Take 50 mg by mouth 2 times daily Historical Provider, lisinopril (PRINIVIL;ZESTRIL) 10 MG tablet Take 20 mg by mouth daily Historical Provider, Disclaimers: ? INFORMED CONSENT: The nature and purpose of the proposed treatment and/or procedure have been discussed. The risks and benefits of the proposed treatment or procedures have been reviewed. Alternatives have been reviewed in addition to the risks and benefits of not receiving treatments or undergoing procedures. Pursuant to this discussion, the patient agrees to undergo the proposed treatment or procedure. ? Captured images seen in this note are not a substitute for a comprehensive interpretation of the entire data set as reflected by the interpreting physician with regard to radiology, echocardiography, and other diagnostic images. ? This note may have been dictated using [employer] Medical Practice Edition 2.6 and/or [employer] Voice Recognition Feature. The document was proofread; however, unrecognized voice recognition restorative art embalmer errors may be present. * Vianca Baca, MS, RD, LD - 12/16/2019 12:42 PM EDT Nutrition Assessment Type and Reason for Visit: Initial, Consult(Post op) Nutrition Recommendations: 1. If pt starting to consume >50% of meals, recommend Cardiac, Carbohydrate Control as goal diet. 2. Will add Ensure HP as an official order in [facility], per diet order pt can order 'as needed', however noted so far pt hasn't had a meal ordered this date; monitor need to send ONS as a snack to ensurept at least receiving ONS if not meals. Can also monitor need to make pt Dietary Assist. 3. Please record % consumed of meals in I/O Flowsheet. 4. RD initiated diet education by leaving handout on paper chart to be taken into pt's room as able(Heart Healthy Consistent Carbohydrate diet handout from the Nutrition Care Manual); RD to assess pt's need for verbal diet education at time of reassessment, RD also did provide contact information for pt to use if needed. 5. RD to monitor PO intake, wt, labs, fluid, overall nutritional status, & follow up weekly. Nutrition Assessment: Pt with PMH Including DM, GERD, HTN, HLD, TIA, Hepatitis A, Skin cancer, Severe CAD POD #1 s/p CABG x 3. Extubated. Currently on Cardiac diet, with note of 'pt may have ensure high protein as needed'. Doesn't appear pt has had anything to eat yet this date. RD attempted to call into pt's room (limiting [id number] contact with COVID-Veronica) however call was unanswered. RD did drop off diet education outside pt's room (in paper chart), and RN was caring for pt at that time. Malnutrition Assessment: Malnutrition Status: At risk for malnutrition Context: Acute illness or injury Nutrition Risk Level: High Nutrient Needs: Estimated Daily Total Kcal: 7980-6852 kcal/day Estimated Daily Protein (g): 70-84 gm protein/day Estimated Daily Total Fluid (ml/day): per MD Nutrition Diagnosis: Problem: Altered nutrition-related lab values, Predicted suboptimal energy intake Etiology: related to Endocrine dysfunction, Insufficient energy/nutrient consumption ? Signs and symptoms: as evidenced by Lab values, Intake 0-25% Objective Information: Nutrition-Focused Physical Findings: pos I/O; +BS; No edema indicated; +chest tubes; medications include PPI, insulin; labs: hemoglobin a1c (7.0%) other labs reviewed Wound Type: Surgical Wound(Shadi 18) Current Nutrition Therapies: Oral Diet Orders: Cardiac('pt can order high protein as needed') Oral Diet intake: (Doesn't appear pt has ordered yet) Oral Nutrition Supplement (ONS) Orders: None(No actual ONS order in [facility]) ONS intake: Unable to assess Anthropometric Measures: Ht: 5' 8 (172.7 cm) Admission Body Wt: 184 lb 1.4 oz (83.5 kg)(bedscale) Usual Body Wt: 170 lb (77.1 kg)(per chart review) [place] Body Wt: 154 lb (69.9 kg), % [place] Body 119% BMI Classification: BMI 25.0 - 29.9 Overweight Nutrition Interventions: Continue current diet, Continue current ONS Continued Inpatient Monitoring, Education Initiated(Handout left outside pt room) Nutrition Evaluation: Evaluation: Goals set Goals: Pt consistently consumes >50% of meals (ONS as needed) and reviews diet education handoutprior to discharge. Monitoring: Meal Intake, Supplement Intake, Diet Tolerance, Skin Integrity, Wound Healing, Weight, Pertinent Labs, Monitor Bowel Function, Patient/Family Education, I&O Contact Number: pager [phone] * Freed Dasha K, EDUCATIONAL AUDIOLOGIST - BAND NAILER - 12/16/2019 12:24 PM EDT PAGING: The Acute Pain Service providers are available by pager. Please reference [employer] and/or [employer] Phonebook for Pain Management Provider MEDICAL LEAD and direct all questions to the provider listed. 12/16/2019 Referring Physician: Colton Marroquin MD Subjective: We have been asked to see this 64 y.o. male for complex pain management s/p CABG X 3: LIUMA to LAD,V to D1, V to D2; EVH (Left thigh), ALFREDITO on 12/15/2019. Patient extubated 12/14 Chart and Nursing notes reviewed. All relevant records and diagnostic tests were reviewed, including laboratory results and imaging. Care will be coordinated with the primary team as appropriate. Social History Tobacco Use Smoking Status Former Smoker Packs/day: 1.00 Types: Cigarettes Smokeless Tobacco Never Used Tobacco Comment 1 ppd times 5 yrs, quit 1976 Social History Substance and Sexual Activity Alcohol Use Yes Comment: once a month Social History Substance and Sexual Activity Drug Use Never Pain Management: n/a The patient's medical history and physical assessment, medications, allergies, patient's current medical condition, and labs were reviewed as part ofthis consultation. [x] Patient's Medications have been reviewed. [x] Patient's OARRS report (PDMP) have been reviewed. 10/17/2018 1 10/13/2018 [place] 10 Mg Capsule 2.00 2 Objective Findings: Height: 5' 8 (172.7 cm) Weight: 184 lb 1.4 oz (83.5 kg) BMI (Calculated): 28 Vital signs: Blood pressure 111/74, pulse 107, temperature 97.7 F (36.5 C), temperature source Oral, resp. rate 13, height 5' 8 (1.727 m), weight 184 lb 1.4 oz (83.5 kg), SpO2 97 %. Lab Results Component Value Date/Time HGB 7.9 (L) 12/16/2019 01:17 AM HCT 23.1 (L) 12/16/2019 01:17 AM PLT 138 (L) 12/16/2019 01:17 AM WBC 10.5 12/16/2019 01:17 AM PROTIME 12.6 (H) 12/15/2019 11:50 AM INR 1.2 (H) 12/15/2019 11:50 AM APTT 24.8 12/15/2019 11:50 AM NA 141 12/16/2019 01:17 AM K 4.3 12/16/2019 01:17 AM BUN 17 12/16/2019 01:17 AM CREATININE 0.79 12/16/2019 01:17 AM GLUCOSE 91 12/16/2019 01:17 AM Allergies: Patient has no known allergies. Past Medical History: Diagnosis Date Bipolar 2 disorder (HCC) CAD (coronary artery disease) Cancer (HCC) skin cancer forehead and left hand Cerebral artery occlusion with cerebral infarction (HCC) 2003 Depression Diabetes mellitus (HCC) Elevated LFTs GERD (gastroesophageal reflux disease) Hepatitis A Hyperlipidemia Hypertension Insomnia CABRERA (obstructive sleep apnea) TIA (transient ischemic attack) Past Surgical History: Procedure Laterality Date CATARACT REMOVAL COLONOSCOPY TONSILLECTOMY WISDOM TOOTH EXTRACTION Family History Problem Relation Age of Onset Heart Disease Mother Heart Disease Father Cancer Father Patient Active Problem List Diagnosis CAD in [place] artery CAD, multiple vessel Hyperglycemia EQUIPMENT SCHEDULER: None Physical Exam Vitals signs and nursing note reviewed. Pain Management Adjuvants: APAP Morphine- 12 mg used 12/14 Oxycodone- 30 mg Oxycodone used 4/10 LP Assessment: 1. Acute incisional chest pain s/p CABG 12/14. Pain Management Plan: Ofirmev 1000 mg IVPB TID scheduled ATC x 3 doses. Then: Acetaminophen 1000 mg po TID scheduled ATC. First dose: 12/17/19 @ 14:00. Liver enzymes WNL, last checked: 12/11. ^alk phos, monitor. Oxycodone 5 - 10 mg po q4h prn moderate to severe breakthrough pain. Morphine 2 mg - 4 mg IVP q4h prn moderate to severe breakthrough pain. Please utilize oral medications first. Lidocaine patches x 2. Cut and place as needed. Patient currently receiving opioids for pain management necessitating a bowel regimen. Recommend initiating scheduled Sennakot-S 8.6/50mg, 1 tablet PO BID. Would also recommend Milk of Magnesia 400mg/5ml, administer 30mL by mouth daily PRN. Will follow. ? Plan discussed with patient who appears to understand and agrees. PAGING: The Acute Pain Service providers are available by pager. Please reference [employer] and/or [employer] Phonebook for Pain Management Provider MEDICAL LEAD and direct all questions to the provider listed. [facility] Pain Management has agreed to see our patients after they are discharged. Patients should be instructed to call [phone]. Please ask patient to sign a medical release andsend medical records to [facility].They will contact the patient with an appointment time. * Leydi Mcdermott, PT - 12/16/2019 10:42 AM EDT Physical Therapy Facility/Department: [facility] Initial Assessment NAME: Douglas Parksmee Tsai : 1955 Date of Service: 12/16/2019 Discharge Recommendations: 24 hour supervision or assist, Home with Home health PT PT Equipment Recommendations Equipment Needed: (to be determined) Assessment Body structures, Functions, Activity limitations: Decreased functional mobility ;Decreased strength;Decreased balance;Increased pain;Decreased endurance Assessment: Patient presents following CABG and now with impaired mobility. He would benefit from PT intervention to improve function. Recommend home with 24 hour assist and home PT at discharge. Prognosis: Good Decision Making: Low Complexity PT Education: Plan of Care;Precautions;Transfer Training REQUIRES PT FOLLOW UP: Yes Activity Tolerance Activity Tolerance: Patient Tolerated treatment well Patient Diagnosis(es): There were no encounter diagnoses. has a past medical history of Bipolar 2 disorder (HCC), CAD (coronary artery disease), Cancer (HCC), Cerebral artery occlusion with cerebral infarction (HCC), Depression, Diabetes mellitus (HCC), Elevated LFTs, GERD (gastroesophageal reflux disease), Hepatitis A, Hyperlipidemia, Hypertension, Insomnia, CABRERA (obstructive sleep apnea), and TIA (transient ischemic attack). has a past surgical history that includes Cataract removal; Tonsillectomy; [place] tooth extraction;and Colonoscopy. Restrictions Restrictions/Precautions Restrictions/Precautions: Cardiac, Fall Risk Required Braces or Orthoses?: No Position Activity Restriction Sternal Precautions: No Pushing, No Pulling, 10# Lifting Restrictions Sternal Precautions: yes Vision/Hearing Hearing: Within functional limits Subjective General Chart Reviewed: Yes Patient assessed for rehabilitation services?: Yes Response To Previous Treatment: Not applicable Family / Caregiver Present: No Diagnosis: abnormal stress test, CABG 12/15/19 Follows Commands: Within Functional Limits General Comment Comments: N95 mask and gloves worn by PT throughout interaction with patient. Subjective Subjective: Patient in bed. He is agreeable to PT. He reports post sx pain. Pain Screening Patient Currently in Pain: Yes Vital Signs Patient Currently in Pain: Yes Pre Treatment Pain Screening Intervention List: Patient able to continue with treatment Orientation Orientation Overall Orientation Status: Within Functional Limits Social/Functional History Social/Functional History Lives With: Spouse Type of Home: House Home Layout: Multi-level Home Access: Level entry Home Equipment: Cane ADL Assistance: Independent Ambulation Assistance: Independent Transfer Assistance: Independent Cognition Cognition Overall Cognitive Status: WFL Objective AROM RLE (degrees) RLE AROM: WFL AROM LLE (degrees) LLE AROM : WFL AROM RUE (degrees) RUE AROM : WFL AROM LUE (degrees) LUE AROM : WFL Strength RLE Strength RLE: WFL Strength LLE Strength LLE: WFL Strength RUE Comment: NT Strength LUE Comment: NT Tone RLE RLE Tone: Normotonic Tone LLE LLE Tone: Normotonic Motor Control Gross Motor?: WNL Sensation Light Touch: No apparent deficits Bed mobility Supine to Sit: Minimal assistance Scooting: Minimal assistance(seated scoot) Transfers Sit to Stand: Minimal Assistance Stand to sit: Minimal Assistance Ambulation Ambulation?: Yes WB Status: no restrictions LEs, sternal precautions More Ambulation?: No Ambulation 1 Surface: level tile Device: No Device Other Apparatus: O2 Assistance: Minimal assistance Gait Deviations: Slow [place];Decreased step length Distance: 4 feet Comments: Patient with report of nausea and lightheadedness at the end of ambulation. Patient with emesis once seated. Nursing in room and addressing. Stairs/Curb Stairs?: No Balance Sitting - Static: Good Sitting - Dynamic: Good;- Standing - Static: Fair Standing - Dynamic: Fair;- Plan Plan Times per week: 5-7 Times per day: Daily Plan weeks: 2 Current Treatment Recommendations: Strengthening, Gait Training, ROM, Balance Training, Functional Mobility Training, Transfer Training, Stair training(Chest PT - P&C ex, IS, home walking program) Safety Devices Type of devices: Call light within reach, Patient at risk for falls, Left in chair, Nurse notified Restraints Initially in place: No G-Code OutComes Score AM-PAC Score AM-PAC Inpatient Mobility Raw Score : 10 (12/16/191030) AM-PAC Inpatient T-Scale Score : 32.29 (12/16/191030) Mobility Inpatient CMS 0-100% Score: 76.75 (12/16/191030) Mobility Inpatient CMS G-Code Modifier : CL (12/16/191030) Goals Short term goals Time Frame for Short term goals: 2 weeks Short term goal 1: independent bed mobility Short term goal 2: independent sit to/from stand Short term goal 3: independent ambulation 250 feet with device PRN Short term goal 4: up/down flight of steps independent with rail Short term goal 5: independent with P&C exercises with use of instruction sheet Short term goal 6: independent with home walking program Short term goal 7: independent with incentive spirometer use and clearing secretions Patient Goals Patient goals : None stated. Therapy Time Individual Concurrent Group Co-treatment Time In 1005 Time Out 1027 Minutes 22 Patient s Physical Therapy Plan of Care supervision is transferred to [facility] Rehab Department Physical Therapist. Leydi Mcdermott PT * Gerald Hernandez MD - 12/16/2019 9:19 AM EDT [facility] [address] [facility] [place] [address] Dept: [phone] Loc: [phone] Visit Date: 12/16/2019 HPI: Douglas Callaway Jr. is a 64 y.o. male who presents today for: No chief complaint on file. HPI: Chief complaint: sob/cp reason for consult: dm On carb controlled diet Extubated Still requiring significant amounts of insulin via drip Past Medical History: Diagnosis Date Bipolar 2 disorder (HCC) CAD (coronary artery disease) Cancer (HCC) skin cancer forehead and left hand Cerebral artery occlusion with cerebral infarction (HCC) 2003 Depression Diabetes mellitus (HCC) Elevated LFTs GERD (gastroesophageal reflux disease) Hepatitis A Hyperlipidemia Hypertension Insomnia CABRERA (obstructive sleep apnea) TIA (transient ischemic attack) Past Surgical History: Procedure Laterality Date CATARACT REMOVAL COLONOSCOPY TONSILLECTOMY WISDOM TOOTH EXTRACTION Current Facility-Administered Medications Medication Dose Route Frequency Provider Last Rate Last Dose pantoprazole (PROTONIX) tablet 40 mg 40 mg Oral QAM AC Sep Ambrocio, EDUCATIONAL AUDIOLOGIST - PHYSICAL SECURITY SPECIALIST 40 mg at 12/16/19 0835 ketorolac (TORADOL) injection 15 mg 15 mg Intravenous Q6H Sep Cristóbal, EDUCATIONAL AUDIOLOGIST - PHYSICAL SECURITY SPECIALIST 15 mg at 12/16/19 0850 enoxaparin (LOVENOX) injection 40 mg 40 mg Subcutaneous Daily Sep Cristóbal, EDUCATIONAL AUDIOLOGIST - PHYSICAL SECURITY SPECIALIST amLODIPine (NORVASC) tablet 5 mg 5 mg Oral Daily Sep Ambrocio, EDUCATIONAL AUDIOLOGIST - PHYSICAL SECURITY SPECIALIST metoprolol tartrate (LOPRESSOR) tablet 50 mg 50 mg Oral BID Sep Cristóbal, KHARI - PHYSICAL SECURITY SPECIALIST 0.9 % sodium chloride infusion Intravenous Continuous Gerald De Jesus MD 50 mL/hr at 12/15/19 0630 perflutren lipid microspheres (DEFINITY) injection 1.65 mg 1.5 mL Intravenous ONCE PRN Colton Marroquin MD sodium chloride flush 0.9 % injection 10 mL 10 mL Intravenous PRN Colton Marroquin MD 0.45 % sodium chloride infusion Intravenous Continuous Colton Marroquin MD Stopped at 12/15/19 1418 sodium chloride flush 0.9 % injection 10 mL 10 mL Intravenous 2 times per day Colton Marroquin MD 10mL at 12/16/19 0815 sodium chloride flush 0.9 % injection 10 mL 10 mL Intravenous PRN Colton Marroquin MD potassium chloride 20 mEq/50 mL IVPB (Central Line) 20 mEq Intravenous PRN Colton Marroquin MD Stopped at 12/15/19 1630 magnesium sulfate 2 g in 50 mL IVPB premix 2 g Intravenous PRN Colton Marroquin MD calcium gluconate 2 g in sodium chloride 0.9 % 100 mL IVPB 2 g Intravenous PRN Colton Marroquin MD ceFAZolin (ANCEF) 2 g in dextrose 4 % 100 mL IVPB (premix) 2 g Intravenous Q8H Colton Marroquin MD Stopped at 12/16/19 0614 morphine (PF) injection 2 mg 2 mg Intravenous Q2H PRN Colton Marroquin MD Or morphine (PF) injection 4 mg 4 mg Intravenous Q2H PRN Colton Marroquin MD 4 mg at 12/16/19 0545 polyethylene glycol (GLYCOLAX) packet 17 g 17 g Oral Daily Colton Marroquin MD 17 g at 12/16/19 0835 sennosides-docusate sodium (SENOKOT-S) 8.6-50 MG tablet 2 tablet 2 tablet Oral Nightly Colton Marroquin MD 2 tablet at 12/15/19 2212 magnesium hydroxide (MILK OF MAGNESIA) 400 MG/5ML suspension 30 mL 30 mL Oral Daily PRN Colton Marroquin MD bisacodyl (DULCOLAX) suppository 10 mg 10 mg Rectal Daily PRN Colton Marroquin MD ondansetron (ZOFRAN) injection 4 mg 4 mg Intravenous Q8H PRN Colton Marroquin MD chlorhexidine (PERIDEX) 0.12 % solution 15 mL 15 mL Mouth/Throat BID Colton Marroquin MD 15 mL at 12/15/19 2210 mupirocin (BACTROBAN) 2 % ointment Nasal BID Colton Marroquin MD potassium chloride (KLOR-CON M) extended release tablet 20 mEq 20 mEq Oral PRN Colton Marroquin MD atorvastatin (LIPITOR) tablet 80 mg 80 mg Oral Nightly Colton Marroquin MD aspirin EC tablet 81 mg 81 mg Oral Daily Colton Marroquin MD 81 mg at 12/16/19 0835 phenylephrine (LALITA-SYNEPHRINE) 50 mg in dextrose 5 % 250 mL infusion 0.5 mcg/kg/min Intravenous Continuous PRN Colton Marroquin MD insulin regular (MYXREDLIN) 100 units in sodium chloride 0.9 % 100 ml infusion 1 Units/hr Intravenous Continuous Colton Marroquin MD 2.5 mL/hr at 12/16/19 0815 2.5 Units/hr at 12/16/19 0815 glucose (GLUTOSE) 40 % oral gel 15 g 15 g Oral PRN Colton Marroquin MD dextrose 50 % IV solution 12.5 g Intravenous PRN Colton Marroquin MD glucagon (rDNA) injection 1 mg 1 mg Intramuscular PRN Colton Marroquin MD dextrose 5 % solution 100 mL/hr Intravenous PRN Colton Marroquin MD insulin regular (HUMULIN R;NOVOLIN R) injection 4 Units 4 Units Intravenous PRN Colton Marroquin MD 4 Units at 12/15/192004 oxyCODONE (ROXICODONE) immediate release tablet 5 mg 5 mg Oral Q4H PRN KHARI Izaguirre CNP Or oxyCODONE (ROXICODONE) immediate release tablet 10 mg 10 mg Oral Q4H PRN KHARI Izaguirre CNP 10 mg at 12/16/19 0707 lidocaine 4 % external patch 2 patch 2 patch Transdermal Daily KHARI Izaguirre CNP 2 patch at12/16/19 0835 acetaminophen (TYLENOL) tablet 1,000 mg 1,000 mg Oral TID KHARI Thakur CNP nitroprusside (NIPRIDE) 50 mg in NS 100mL infusion 0.1 mcg/kg/min Intravenous Continuous Reed Hernandez MD 11.1 mL/hr at 12/16/19 0800 1.2 mcg/kg/min at 12/16/19 0800 No Known Allergies Family History Problem Relation Age of Onset Heart Disease Mother Heart Disease Father Cancer Father Social History Tobacco Use Smoking status: Former Smoker Packs/day: 1.00 Types: Cigarettes Smokeless tobacco: Never Used Tobacco comment: 1 ppd times 5 yrs, quit 1975 Substance Use Topics Alcohol use: Yes Comment: once a month Subjective: Review of Systems Respiratory: Negative for shortness of breath. Objective: BP (!) 146/82 Pulse 130 Temp 97.7 F (36.5 C) (Oral) Resp 29 Ht 5' 8 (1.727 m) Wt 184 lb 1.4 oz (83.5 kg) SpO2 94% BMI 27.99 kg/m Physical Exam Due to the current efforts to prevent transmission of COVID-19 and also the need to preserve PPE for other caregivers, a [id number] encounter with the patient was not performed. That being said, all relevant records and diagnostic tests were reviewed, including laboratory results and imaging. Please reference any relevant documentation elsewhere. Care will be coordinated with the primary service. Diagnostic Workup: Results for DOUGLAS CALLAWAY JR. ( ) as of 12/16/2019 09:20 Ref. Range 12/16/2019 05:53 12/16/2019 07:11 12/16/2019 08:10 12/16/2019 09:09 POC Glucose Latest Ref Range: 70 - 100 mg/dL 82 90 76 91 Results for DOUGLAS CALLAWAY JR. ( ) as of 12/16/2019 09:20 Ref. Range 12/12/2019 13:22 12/15/2019 11:50 12/16/2019 01:17 Creatinine Latest Ref Range: 0.52 - 1.25 mg/dL 1.33 (H) 0.95 0.79 Results for DOUGLAS CALLAWAY JR. ( ) as of 12/16/2019 09:20 Ref. Range 12/12/2019 13:22 Hemoglobin A1C Latest Ref Range: 4.0 - 5.7 % 7.0 (H) Assessment: Type 2 diabetes Well controlled by A1c on metformin 1000 mg twice daily 12/15/19 underwent: CABG X 3: LIUMA to LAD, V to D1, V to D2; EVH (Left thigh), ALFREDITO Plan: Explained all of recommendations below to patient/care team, reviewed all of labs above with them as well: Anticipate changed to subcutaneous insulin 12/17/19 Patient is still requiring a significant amount of intravenous insulin so we will continue insulin drip until then Anticipate will not need insulin on discharge but can control diabetes with oral glucose lowering agents No follow-ups on file. Gerald Hernandez MD * Reed Cruz MD - 12/16/2019 8:01 AM EDT Critical Care Progress Note 12/16/2019 8:01 AM Subjective: Admit Date: 12/15/2019 PCP: eNo Tian MD Chief Complaint: chest pain No chief complaint on file. Interval History: Extubated yesterday Has feeling of urinary urgency, has toscano Tachy, regular started on b-bridgett CXR: Lung volumes are shallow. Mild worsening of the left lower lung atelectasis. Mild elevation of the right hemidiaphragm is stable. Heart and mediastinal contours are stable. Endotracheal tube has been removed. [place] catheter is in satisfactory position. No pneumothorax. IMPRESSION: Removal of the endotracheal tube. Mild worsening left lower lung atelectasis. Review of Systems Respiratory: Negative for shortness of breath. Cardiovascular: Chest pain: post op with breathing and mvmt. Gastrointestinal: Negative for abdominal pain, nausea and vomiting. Neurological: Negative for headaches. Diet: DIET CARDIAC; Medications: Scheduled Meds: metoprolol tartrate 25 mg Oral BID pantoprazole 40 mg Oral QAM AC ketorolac 15 mg Intravenous Q6H metoprolol 2.5 mg Intravenous Once sodium chloride flush 10 mL Intravenous 2 times per day ceFAZolin (ANCEF) IVPB 2 g Intravenous Q8H polyethylene glycol 17 g Oral Daily sennosides-docusate sodium 2 tablet Oral Nightly chlorhexidine 15 mL Mouth/Throat BID mupirocin Nasal BID atorvastatin 80 mg Oral Nightly aspirin 81 mg Oral Daily lidocaine 2 patch Transdermal Daily acetaminophen 1,000 mg Oral TID acetaminophen 1,000 mg Intravenous TID Continuous Infusions: sodium chloride 50 mL/hr at 12/15/19 0630 sodium chloride Stopped (12/15/19 1418) propofol Stopped (12/15/19 1315) phenylephrine (LALITA-SYNEPHRINE) 50mg/250mL infusion insulin 5 Units/hr (12/16/19 0717) dextrose nitroprusside sodium-NaCl 1.1 mcg/kg/min (12/16/19 0717) CBC: Recent Labs 12/15/19 1150 12/16/19 0117 WBC 12.0* 10.5 HGB 7.9* 7.9* HCT 23.3* 23.1* PLT 105* 138* BMP: Recent Labs 12/15/19 1150 12/16/19 0117 NA 142 141 K 3.2* 4.3 CL 108* 105 CO2 22 25 BUN 19 17 CREATININE 0.95 0.79 GLUCOSE 93 91 CALCIUM 8.8 8.7 IONCA 4.70 -- MG 3.9* 2.2 PHOS 2.2* -- Ionized Calcium: Lab Results Component Value Date IONCA 4.70 12/15/2019 INR: Recent Labs 12/15/19 1150 INR 1.2* BLOOD GAS: Recent Labs 12/15/19 1150 PHART 7.397 [id number] 40.3 PO2ART 373.8* KEE7RIQ 24.2 [id number] 98.6 Objective: Vitals: Temp (24hrs), Av.5 F (36.4 C), Min:96.8 F (36 C), Max:97.9 F (36.6 C) BP 137/84 Pulse 130 Temp 97.9 F (36.6 C) Resp 23 Ht 5' 8 (1.727 m) Wt 170 lb (77.1 kg) SpO2 93% BMI 25.85 kg/m I/O: 12/15/19 07 - 12/16/19 0712/16/19 07 - 12/17/19 0700 Shift 4138-9034 2171-7364 4398-9138 24 Hour Total 3821-0425 8484-0461 6078-9992 24 Hour Total INTAKE P.O. 700 700 I.V. 687 1880 2567 Blood 247.5 600 847.5 Volume (Transfuse platelets) 600 600 Volume (Transfuse platelets) 247.5 247.5 Other 1530 497 6489 IV Piggyback 417 417 Shift Total 1740.5 2184 2580 6504.5 OUTPUT Urine 960 1525 1020 3505 Chest Tube 727 677 465 1290 Shift Total 1687 1916 1350 4953 NET 53.5 268 1230 1551.5 Ventilator Settings: PHYSICAL EXAM: General Appearance: [x]WDWN []Obese []Cachectic []Thin []ill Skin: Temperature [x]Warm []Cool Rash []Yes []No Tattoo(s) []Yes []No HEENT: Pupils round and react [x]Yes []No Sclera []Icteric [x]Non-Icteric Conjunctiva []Injected [x]Non-Injected Pinnae []Normal []Other Dentitian [x][place] Teeth []Dentures []edentulous Oral Mucosa [x][place] [x]Moist []Dry Oral ETT []Present [x]Absent Neck: Trachea midline [x]Yes []No Thyromegaly []Yes [x]No Crepitus []Present [x]Absent Jvd []Present [x]Absent Lungs: [x]Clear []Crackles []Wheezes [][place] Respiratory effort []Labored [x]Non-Labored Heart: Rate []Regular []Irregular [x]Tachycardia []Bradycardia Rhythm [x]Regular []Irregular Murmur []Present [x]Absent Peripheral Edema []Present [x]Absent Abdomen: [x]Soft Bowel Sounds [x]Present []Absent []Tender [x]Non-Tender []Distended [x]Non-distended Hernia []Present []Absent Organomegaly []Present [x]Absent []unable to assess 2/2 body habitus []Scar Extremities: Cyanosis []Present [x]Absent AVERY ([x]RUE [x]RLE [x]LUE [x]LLE) Neurologic: ALTURAS []Yes [x]No Corneal reflexes [x]Present []Absent Plantar reflexes []Up []Down []Absent Withdraws to tactile [x]Yes []No Follows Commands [x]Yes []No []Unresponsive to verbal [x]Cranial nerves grossly intact [x]Sensation grossly intact Psych: Alert [x]yes []no Oriented []x0 []x1 []x2 [x]x3 Affect [x]Normal []Flat []Agitated []Anxious [x]Calm []Sedated []NAD Assessment and Plan: Severe CAD / s/p CABG, sinus tach--started on b-bridgett per primary Post op vent management, hx CABRERA, post op atelectasis Acute blood loss anemia, post op thrombocytopenia HTN, HLD, DM, GERD Cont autopap at night Will follow prn further ICU issues GI prophylaxis--protonix DVT prophylaxis--lovenox Nutrition--po diet See orders. * Jarocho Ambrocio, EDUCATIONAL AUDIOLOGIST - PHYSICAL SECURITY SPECIALIST - 12/16/2019 7:03 AM EDT Cardiothoracic Surgery Progress Note 12/16/2019 Subjective: Admit Date: 12/15/2019 Interval History: S/P CABG x3 on 12/15/19- POD#1- swan out per protocol, on nipride drip, tachy 130's Subjective: Resting in bed. States having lots incisional pain when he moves Objective: Vitals: Temp (24hrs), Av.5 F (36.4 C), Min:96.8 F (36 C), Max:97.9 F (36.6 C) BP 129/76 Pulse 134 Temp 97.9 F (36.6 C) Resp 18 Ht 5' 8 (1.727 m) Wt 170 lb (77.1 kg) SpO2 94% BMI 25.85 kg/m I/O: Date 12/16/19 0000 - 12/16/19 2359 Shift 2236-0164 5280-2744 4691-7201 24 Hour Total INTAKE Shift Total(mL/kg) OUTPUT Urine(mL/kg/hr) 570 570 Chest Tube 150 150 Shift Total(mL/kg) 720(9.3) 720(9.3) Weight (kg) 77.1 77.1 77.1 77.1 Weights: Patient Vitals for the past 96 hrs (Last 3 readings): Weight 12/15/19 0603 170 lb (77.1 kg) Labs: BMP: Recent Labs 12/15/19 1150 12/16/19 0117 NA 142 141 K 3.2* 4.3 CL 108* 105 CO2 22 25 BUN 19 17 CREATININE 0.95 0.79 GLUCOSE 93 91 . CBC: Recent Labs 12/15/19 1150 12/16/19 0117 WBC 12.0* 10.5 RBC 2.43* 2.43* HGB 7.9* 7.9* HCT 23.3* 23.1* MCV 95.6 95.0 MCH 32.5 32.5 MCHC 34.0 34.1 RDW 13.9 13.6 PLT 105* 138* MPV 7.4 8.1 Hepatic: No results for input(s): AST, ALT, ALB, BILITOT, ALKPHOS in the last 72 hours. INR: Lab Results Component Value Date PROTIME 12.6 12/15/2019 INR 1.2 12/15/2019 Films: CXR portable: Reviewed Physical Exam: Physical Exam Constitutional: General: He is not in acute distress. Appearance: He is well-developed. He is not diaphoretic. HENT: Head: Normocephalic and atraumatic. Nose: Nose normal. Mouth/Throat: Mouth: Mucous membranes are moist. Eyes: Pupils: Pupils are equal, round, and reactive to light. Neck: Musculoskeletal: Normal range of motion and neck supple. Vascular: No JVD. Cardiovascular: Rate and Rhythm: Regular rhythm. Tachycardia present. Heart sounds: Normal heart sounds. Pulmonary: Effort: Pulmonary effort is normal. No respiratory distress. Breath sounds: Normal breath sounds. No stridor. Abdominal: General: There is no distension. Tenderness: There is no abdominal tenderness. Musculoskeletal: Normal range of motion. General: No tenderness. Skin: General: Skin is warm and dry. Comments: Sternotomy incision intact with no signs of infection. Chest tube to -20 cm with serosang drainage. No air leak. Toscano to SD with clear vivek urine Neurological: Mental Status: He is alert and oriented to person, place, and time. Psychiatric: Mood and Affect: Mood normal. Behavior: Behavior normal. Thought Content: Thought content normal. Judgment: Judgment normal. Medications: Scheduled Meds: metoprolol tartrate 25 mg Oral BID pantoprazole 40 mg Oral QAM AC ketorolac 15 mg Intravenous Q6H sodium chloride flush 10 mL Intravenous 2 times per day ceFAZolin (ANCEF) IVPB 2 g Intravenous Q8H polyethylene glycol 17 g Oral Daily sennosides-docusate sodium 2 tablet Oral Nightly chlorhexidine 15 mL Mouth/Throat BID mupirocin Nasal BID atorvastatin 80 mg Oral Nightly aspirin 81 mg Oral Daily lidocaine 2 patch Transdermal Daily acetaminophen 1,000 mg Oral TID acetaminophen 1,000 mg Intravenous TID Continuous Infusions: sodium chloride 50 mL/hr at 12/15/19 0630 sodium chloride Stopped (12/15/19 1418) propofol Stopped (12/15/19 1315) phenylephrine (LALITA-SYNEPHRINE) 50mg/250mL infusion insulin 5 Units/hr (12/16/19 0600) dextrose nitroprusside sodium-NaCl 0.35 mcg/kg/min (12/15/19 2315) Home Meds: Prior to Admission medications Medication Sig Start Date End Date Taking? Authorizing Provider mupirocin (BACTROBAN NASAL) 2 % nasal ointment Apply liberal amount on a q-tip and place in each nostril the night before surgery and then again the morning of surgery 12/12/19 Yes Alicia Carroll APRN - [facility] dorzolamide-timolol (COSOPT) 22.3-6.8 MG/ML ophthalmic solution Place 1 drop into both eyes 2 timesdaily Yes Historical Provider, DULoxetine (CYMBALTA) 60 MG extended release capsule Take 60 mg by mouth daily Yes Historical Provider, pantoprazole (PROTONIX) 40 MG tablet Take 40 mg by mouth daily Yes Historical Provider, hydroCHLOROthiazide (HYDRODIURIL) 25 MG tablet Take 25 mg by mouth daily Historical Provider, amLODIPine (NORVASC) 10 MG tablet Take 10 mg by mouth daily Historical Provider, aspirin 81 MG tablet Take 81 mg by mouth daily Historical Provider, metFORMIN (GLUCOPHAGE) 1000 MG tablet Take 1,000 mg by mouth 2 times daily (with meals) Historical Provider, metoprolol tartrate (LOPRESSOR) 50 MG tablet Take 50 mg by mouth 2 times daily Historical Provider, lisinopril (PRINIVIL;ZESTRIL) 10 MG tablet Take 20 mg by mouth daily Historical Provider, Diet: DIET CARDIAC; Problem List: Active Problems: CAD in [place] artery CAD, multiple vessel Hyperglycemia Resolved Problems: * No resolved hospital problems. * Assessment and Plan: 1. CAD: Status post CABG X 3: LIUMA to LAD, V to D1, V to D2; EVH (Left thigh),ALFREDITO on 12/15/19 -EF 55% on ALFREDITO 12/15/19 -Core Medication: [x]ASA [x]BB [x] Statin [] ACEi/ARB EF >40% -Anticoagulation: n/a -Invasive Lines:Central Line: Day #1-swan out per protocol -Toscano: Day# 1- discontinue today 2. Post op Pulm. Mgmt: HxOSA (Normal post op course) on 4L NC-96%. CXR: Reviewed by Dr. Tapia who is covering for Dr. Marroquin during rounds today. Continue C&DB, Enc use of IS. Maintain chest tubes to waterseal 3. Hypertension: SBP 130's On nipride drip. Low dose BB and home norvasc added to wean off nipride.A-line went bad through night and removed. 4. Tachycardia: ST 130's this am. Metoprolol tartrate 25 mg BID started. IV lopressor 2.[address] 110's after doses 5. Blood loss Anemia: Hgb:7.9 Stable. No s/s bleeding. Continue to monitor CBC 6. Consumptive Thrombocytopenia: Platelets:138 No s/s bleeding. Continue to monitor labs 7. DM/Stress Hyperglycemia: A1C 7.0 Insulin per endocrine 8. Acute post op pain: Pain mgmt consulted. On scheduled tylenol, lidocaine patch and oxycodone IR prn. Will add toradol today 9. GI/DVT prophylaxis: PPI/SCD/Teds 10. Disposition: Continue progressive care in [facility] Blood Conservation Initiative Log: - * Reed Cruz MD - 12/15/2019 5:51 PM EDT Vitals: 12/15/19 1730 BP: 114/69 Pulse: 108 Resp: 12 Temp: SpO2: 99% Pt extubated, no stridor, no resp distress. Ongoing ICU care. * Steph Ingram RCP - 12/15/2019 3:08 PM EDT [facility] Respiratory Care Department Progress Note Spontaneous Breathing Trial (SBT) Start: 2-3 min to Stabilize After 15 min After 30 min HR 109 113 117 SpO2 (%) 100% 100% 100% RR 19 21 25 VT (L) 653 342 252 Total RSBI (RR/VT in Liters) 81 76 72 Pass SBT (RSBI must be?105 to pass) NA NA Yes Comments: Placed on SBT via TC per orders. Additional data if requested: NIF = VC = Name of physician results were reported to: Thank you for involving Respiratory in the care of this patient, * Bertha Nye OT - 12/15/2019 2:30 PM EDT Occupational Therapy Hold OT orders received, chart reviewed. Pt underwent CABG today. Hold OT. Will re- attempt as schedule permits. Bertha Nye OTR/L documented in this encounter Chief Complaint Chief Complaint Description Start Date right shoulder pain Preliminary chief co mplaint data, not yet signed by the author as of Chief Complaint Description Start Date right shoulder pain Preliminary chief co mplaint data, not yet signed by the author as of Chief Complaint and Reason for Visit Chief Complaint GALLSTONE PANCREATIT IS GALLSTONE PANCREATITIS GALLSTONE PANCREATITIS GALLSTONE PANCREATITIS GALLSTONE PANCREATITIS GALLSTONE PANCREATITIS GALLSTONE PANCREATITIS GALLSTONE PANCREATITIS GALLSTONE PANCREATITIS EORDER Reason for Visit Bile leak, postopera tive S/P ERCP Chief Complaint EORDER Chief Complaint wound check Chief Complaint wound check 2 WK FU R SHOULDER SX ON 01/16/22. PT TO BRING ORDER Reason for Visit Bile leak Gastroparesis Acute gallstone pancreatitis Chief Complaint R SHOULDER SX ON 01/04 11/25. PT TO BRING ORDER Chief Complaint R SHOULDER SX ON 01/04 11/25. PT TO BRING ORDER RT SHOULDER/PT HAS RX 1 Y FU Reason for Visit Atherosclerosis of c oronary artery of [place] heart without angina pectoris Essential hypertension Hyperlipidemia H/O coronary artery bypass surgery Reason for Referral Specialty Diagnoses / Procedures Referred By Gali t Referred To Contact CT IMAGING Diagnoses Nausea Procedures CT ABD/PEL W IVCON CT ABD & PELVIS W/CONTRAST Germaine Bray MD [address] [facility] [address] [place] [address] Ct Imaging Referral ID Status Reason Start Date Expiration Date Visits Requested Visits Authorized [id number] Authorized Auto-Generat ed Referral 04/06/2023 05/05/2024 1 1 Specialty Diagnoses / Procedures Referred By Contac t Referred To Contact [facility] Diagnoses Gastroparesis Heartburn Procedures EGD DIAGNOSTIC ESOPHAGOGASTRODUODENOSC OPY TRANSORAL DIAGNOSTIC Germaine Bray MD [address] [address] [facility] [place] [address] [place] [id number] Referral ID Status Reason Start Date Expiration Date Visits Requested Visits Authorized [id number] Pending Review Auto-Generat ed Referral 04/06/2023 04/06/2024 1 1 Specialty Diagnoses / Procedures Referred By Contac t Referred To Contact [facility] Diagnoses Nausea Procedures NM GASTRIC EMPTYING SOLID GASTRIC EMPTYING STUDY Germaine Bray MD [address] [address] [facility] [address] [place] [address] Referral ID Status Reason Start Date Expiration Date Visits Requested Visits Authorized [id number] Authorized Auto-Generat ed Referral 04/06/2023 05/05/2024 1 1 Specialty Diagnoses / Procedures Referred By Contac t Referred To Contact CT IMAGING Diagnoses Nausea Procedures CT ABD/PEL W IVCON CT ABD & PELVIS W/CONTRAST Germaine Bray MD [address] [address] [address] Imaging [id number] Referral ID Status Reason Start Date Expiration Date V isits Requested Visits Authorized [id number] Closed Auto-Generate d Referral 04/06/2023 05/05/2024 1 1 Specialty Diagnoses / Procedures Referred By Contac t Referred To Contact [facility] Diagnoses Weakness of both lower extremities Procedures CONSULT TO MARRIAGE PERFORMER OCCUPATIONAL THERAPY EVAL HIGH COMPLEX 60 MINS Sheryl Bassett MD [address] [place] [address] [facility] [place] [address] [place] [address] Referral ID Status Reason Start Date Expiration Date Visits Requested Visits Authorized [id number] Authorized PCP Requested Referral Auto-Generate d Referral 08/12/2023 08/11/2024 99 99 Specialty Diagnoses / Procedures Referred By Jayac t Referred To Contact MR IMAGING Diagnoses Transient cerebral ischemia, unspecified type Procedures MRI BRAIN WO IVCON MRI BRAIN BRAIN STEM W/O CONTRAST MATERIAL Sheryl Bassett MD [address] [place] [address] Mr Imaging [id number] Referral ID Status Reason Start Date Expiration Date Visits Requested Visits Authorized [id number] Authorized Auto-Generat ed Referral 10/26/2023 11/24/2024 1 1 Specialty Diagnoses / Procedures Referred By Gali t Referred To Contact [facility] Diagnoses Abnormality of gait due to impairment of balance Procedures CONSULT TO PHYSICAL THERAPY PHYSICAL THERAPY EVALUATION HIGH COMPLEX 45 MINS Sheryl Bassett MD [address] [place] [address] [facility] [place] [address] [place] [address] Referral ID Status Reason Start Date Expiration Date Visits Requested Visits Authorized [id number] Authorized PCP Requested Referral Auto-Generate d Referral 10/26/2023 10/25/2024 99 99 Medications Administered Section Inactive Administered Medications - up to 3 most recent administrations Medication Order MAR Action Action Date Dose Rate Site lactated ringers iv infusion 30 mL/hr, INTRAVENOUS, CONTINUOUS, Starting on Margret 05/13/23 at 1400, Until Margret 05/13/23 at 1625, Preprocedure New Bag/Syringe/Bottle 05/13/2023 2:08 PM EDT 30 mL/hr 30 mL/hr ondansetron (PF) 4 mg injection (ZOFRAN) 4 mg, INTRAVENOUS, ONCE, 1 dose, On Margret 05/13/23 at 1430, Give IV push over 2 minutes, Preprocedure Given 05/13/2023 2:12 PM EDT 4 mg Additional Source Comments (unrecognized sect ion and content) No Status Records FoundNo Status Records FoundNo Status Records FoundNo Status Records FoundNo Status Records FoundNo Status Records Found INFORMATION SOURCE (unrecogn ized section and content) DATE CREATED AUTHOR 01/21/2020 [facility] DATE CREATED AUTHOR AUTHOR'S ORGANIZ ATION 01/03/2024 [facility] DATE CREATED AUTHOR AUTHOR'S ORGANIZ ATION 01/20/2024 [facility] DATE CREATED AUTHOR AUTHOR'S ORGANIZ ATION 01/23/2024 [facility] DATE CREATED AUTHOR AUTHOR'S ORGANIZ ATION 02/28/2025 [facility] DATE CREATED AUTHOR AUTHOR'S ORGANIZ ATION 03/03/2025 [facility] Source Comments (unrecognize d section and content) In the event this informatio n is protected by the Federal Confidentiality of Alcohol and Drug Abuse Patient Records regulations: The Federal rules restrict any use of the information to criminally investigate or prosecute any alcohol or drug abuse patient.[facility] HealthcareIn the event this information is protected by the Federal Confidentiality of Alcohol and Drug Abuse Patient Records regulations: The Federal rules restrict any use of the information to criminally investigate or prosecute any alcohol or drug abuse patient.[facility] HealthcareIn the event this information is protected by the Federal Confidentiality of Alcohol and Drug Abuse Patient Records regulations: The Federal rules restrict any use of the information to criminally investigate or prosecute any alcohol or drug abuse patient.[facility] HealthcareIn the event this information is protected by the Federal Confidentiality of Alcohol and Drug Abuse Patient Records regulations: The Federal rules restrict any use of the information to criminally investigate or prosecute any alcohol or drug abuse patient.[facility] HealthcareIn the event this information is protected by the Federal Confidentiality of Alcohol and Drug Abuse Patient Records regulations: The Federal rules restrict any use of the information to criminally investigate or prosecute any alcohol or drug abuse patient.[facility] HealthcareIn the event this information is protected by the Federal Confidentiality of Alcohol and Drug Abuse Patient Records regulations: The Federal rules restrict any use of the information to criminally investigate or prosecute any alcohol or drug abuse patient.[facility] HealthcareIn the event this information is protected by the Federal Confidentiality of Alcohol and Drug Abuse Patient Records regulations: The Federal rules restrict any use of the information to criminally investigate or prosecute any alcohol or drug abuse patient.[facility] HealthcareIn the event this information is protected by the Federal Confidentiality of Alcohol and Drug Abuse Patient Records regulations: The Federal rules restrict any use of the information to criminally investigate or prosecute any alcohol or drug abuse patient.[facility] HealthcareIn the event this information is protected by the Federal Confidentiality of Alcohol and Drug Abuse Patient Records regulations: The Federal rules restrict any use of the information to criminally investigate or prosecute any alcohol or drug abuse patient.[facility] HealthcareIn the event this information is protected by the Federal Confidentiality of Alcohol and Drug Abuse Patient Records regulations: The Federal rules restrict any use of the information to criminally investigate or prosecute any alcohol or drug abuse patient.[facility] HealthcareIn the event this information is protected by the Federal Confidentiality of Alcohol and Drug Abuse Patient Records regulations: The Federal rules restrict any use of the information to criminally investigate or prosecute any alcohol or drug abuse patient.[facility] HealthcareIn the event this information is protected by the Federal Confidentiality of Alcohol and Drug Abuse Patient Records regulations: The Federal rules restrict any use of the information to criminally investigate or prosecute any alcohol or drug abuse patient.[facility] HealthcareIn the event this information is protected by the Federal Confidentiality of Alcohol and Drug Abuse Patient Records regulations: The Federal rules restrict any use of the information to criminally investigate or prosecute any alcohol or drug abuse patient.[facility] HealthcareIn the event this information is protected by the Federal Confidentiality of Alcohol and Drug Abuse Patient Records regulations: The Federal rules restrict any use of the information to criminally investigate or prosecute any alcohol or drug abuse patient.[facility] HealthcareIn the event this information is protected by the Federal Confidentiality of Alcohol and Drug Abuse Patient Records regulations: The Federal rules restrict any use of the information to criminally investigate or prosecute any alcohol or drug abuse patient.[facility] HealthcareIn the event this information is protected by the Federal Confidentiality of Alcohol and Drug Abuse Patient Records regulations: The Federal rules restrict any use of the information to criminally investigate or prosecute any alcohol or drug abuse patient.[facility] HealthcareIn the event this information is protected by the Federal Confidentiality of Alcohol and Drug Abuse Patient Records regulations: The Federal rules restrict any use of the information to criminally investigate or prosecute any alcohol or drug abuse patient.[facility] HealthcareIn the event this information is protected by the Federal Confidentiality of Alcohol and Drug Abuse Patient Records regulations: The Federal rules restrict any use of the information to criminally investigate or prosecute any alcohol or drug abuse patient.[facility] HealthcareIn the event this information is protected by the Federal Confidentiality of Alcohol and Drug Abuse Patient Records regulations: The Federal rules restrict any use of the information to criminally investigate or prosecute any alcohol or drug abuse patient.[facility] HealthcareIn the event this information is protected by the Federal Confidentiality of Alcohol and Drug Abuse Patient Records regulations: The Federal rules restrict any use of the information to criminally investigate or prosecute any alcohol or drug abuse patient.[facility] HealthcareIn the event this information is protected by the Federal Confidentiality of Alcohol and Drug Abuse Patient Records regulations: The Federal rules restrict any use of the information to criminally investigate or prosecute any alcohol or drug abuse patient.[facility] HealthcareIn the event this information is protected by the Federal Confidentiality of Alcohol and Drug Abuse Patient Records regulations: The Federal rules restrict any use of the information to criminally investigate or prosecute any alcohol or drug abuse patient.[facility] HealthcareIn the event this information is protected by the Federal Confidentiality of Alcohol and Drug Abuse Patient Records regulations: The Federal rules restrict any use of the information to criminally investigate or prosecute any alcohol or drug abuse patient.[facility] HealthcareIn the event this information is protected by the Federal Confidentiality of Alcohol and Drug Abuse Patient Records regulations: The Federal rules restrict any use of the information to criminally investigate or prosecute any alcohol or drug abuse patient.[facility] HealthcareIn the event this information is protected by the Federal Confidentiality of Alcohol and Drug Abuse Patient Records regulations: The Federal rules restrict any use of the information to criminally investigate or prosecute any alcohol or drug abuse patient.[facility] HealthcareIn the event this information is protected by the Federal Confidentiality of Alcohol and Drug Abuse Patient Records regulations: The Federal rules restrict any use of the information to criminally investigate or prosecute any alcohol or drug abuse patient.[facility] HealthcareIn the event this information is protected by the Federal Confidentiality of Alcohol and Drug Abuse Patient Records regulations: The Federal rules restrict any use of the information to criminally investigate or prosecute any alcohol or drug abuse patient.[facility] HealthcareIn the event this information is protected by the Federal Confidentiality of Alcohol and Drug Abuse Patient Records regulations: The Federal rules restrict any use of the information to criminally investigate or prosecute any alcohol or drug abuse patient.[facility] HealthcareIn the event this information is protected by the Federal Confidentiality of Alcohol and Drug Abuse Patient Records regulations: The Federal rules restrict any use of the information to criminally investigate or prosecute any alcohol or drug abuse patient.[facility] HealthcareIn the event this information is protected by the Federal Confidentiality of Alcohol and Drug Abuse Patient Records regulations: The Federal rules restrict any use of the information to criminally investigate or prosecute any alcohol or drug abuse patient.[facility] HealthcareIn the event this information is protected by the Federal Confidentiality of Alcohol and Drug Abuse Patient Records regulations: The Federal rules restrict any use of the information to criminally investigate or prosecute any alcohol or drug abuse patient.[facility] HealthcareIn the event this information is protected by the Federal Confidentiality of Alcohol and Drug Abuse Patient Records regulations: The Federal rules restrict any use of the information to criminally investigate or prosecute any alcohol or drug abuse patient.[facility] HealthcareIn the event this information is protected by the Federal Confidentiality of Alcohol and Drug Abuse Patient Records regulations: The Federal rules restrict any use of the information to criminally investigate or prosecute any alcohol or drug abuse patient.[facility] HealthcareIn the event this information is protected by the Federal Confidentiality of Alcohol and Drug Abuse Patient Records regulations: The Federal rules restrict any use of the information to criminally investigate or prosecute any alcohol or drug abuse patient.[facility] HealthcareIn the event this information is protected by the Federal Confidentiality of Alcohol and Drug Abuse Patient Records regulations: The Federal rules restrict any use of the information to criminally investigate or prosecute any alcohol or drug abuse patient.[facility] HealthcareIn the event this information is protected by the Federal Confidentiality of Alcohol and Drug Abuse Patient Records regulations: The Federal rules restrict any use of the information to criminally investigate or prosecute any alcohol or drug abuse patient.[facility] Reason for Visit (unrecogniz ed section and content) Reason Comments PT Progress Note PT Discharge Specialty Diagnoses / Procedures Referred By Contac t Referred To Contact [facility] Diagnoses Abnormality of gait due to impairment of balance Procedures CONSULT TO PHYSICAL THERAPY PHYSICAL THERAPY EVALUATION HIGH COMPLEX 45 MINS Sheryl Bassett MD [address] [place] [address] [facility] [address] [address] Referral ID Status Reason Start Date Expiration Date Visits Requested Visits Authorized [id number] Authorized PCP Requested Referral Auto-Generate d Referral 10/26/2023 10/25/2024 99 99 Reason Comments Physical Therapy Reason Comments PT Progress Note Specialty Diagnoses / Procedures Referred By Contac t Referred To Contact PHYSICAL THERAPY Diagnoses Weakness of both lower extremities Procedures CONSULT TO PHYSICAL THERAPY PHYSICAL THERAPY EVALUATION HIGH COMPLEX 45 MINS Sheryl Bassett MD [address] [place] [address] [facility] [address] [place] [address] Referral ID Status Reason Start Date Expiration Date Visits Requested Visits Authorized [id number] Authorized PCP Requested Referral Auto-Generate d Referral 3 07/26/2024 99 [address] Specialty Diagnoses / Procedures Referred By Contac t Referred To Contact CT IMAGING Diagnoses Nausea Procedures CT ABD/PEL W IVCON CT ABD & PELVIS W/CONTRAST Germaine Bray MD [address] [place] [address] [place] [address] Referral ID Status Reason Start Date Expiration Date V isits Requested Visits Authorized [id number] Closed Auto-Generate d Referral 04/06/2023 05/05/2024 1 1 Reason For Visit Description Start Date Consult Preliminary reason f or visit data, not yet signed by the author as of right shoulder pain Reason For Visit Description Start Date New/Est - 1st visit with physician 12/16 Preliminary reason f or visit data, not yet signed by the author as of right shoulder pain Reason Comments Established Patient Reason Comments Appointment EGD Reason Comments Radiology NM Specialty Diagnoses / Procedures Referred By Contac t Referred To Contact [facility] Diagnoses Nausea Procedures NM GASTRIC EMPTYING SOLID GASTRIC EMPTYING STUDY Germaine Bray MD [address] [place] [address] [facility] [address] [place] [address] Referral ID Status Reason Start Date Expiration Date V isits Requested Visits Authorized [id number] Closed Auto-Generate d Referral 04/06/2023 05/05/2024 1 1 Reason Comments Appointment Reason Comments New Patient Specialty Diagnoses / Procedures Referred By Contac t Referred To Contact Neurology Diagnoses Weakness of both lower extremities Procedures CONSULT TO NEUROLOGY OFFICE/OUTPATIENT NEW HIGH MDM 60-74 MINUTES Germaine Bary MD [address] [place] [address] Referral ID Status Reason Start Date Expiration Date V isits Requested Visits Authorized [id number] Closed PCP Requested Referral 06/10/2023 06/09/2024 1 1 Reason Onset Date Comments EMG 08/12/2023 Specialty Diagnoses / Procedures Referred By Contac t Referred To Contact [facility] Diagnoses Weakness of both lower extremities Procedures EMG(NEURO/NI) NERVE CONDUCTION STUDIES 9-10 STUDIES Sheryl Bassett MD [address] [place] [address] [facility] [place] [address] [place] [address] Referral ID Status Reason Start Date Expiration Date V isits Requested Visits Authorized [id number] Closed Auto-Generate d Referral 07/27/2023 07/27/2024 1 1 Reason Comments PT Eval Patient Education Specialty Diagnoses / Procedures Referred By Contac t Referred To Contact [facility] Diagnoses Weakness of both lower extremities Procedures CONSULT TO PHYSICAL THERAPY PHYSICAL THERAPY EVALUATION HIGH COMPLEX 45 MINS Sheryl Bassett MD [address] [place] [address] [facility] [place] [address] Specialty Diagnoses / Procedures Referred By Contac t Referred To Contact [facility] Diagnoses Weakness of both lower extremities Procedures CONSULT TO PHYSICAL THERAPY PHYSICAL THERAPY EVALUATION HIGH COMPLEX 45 MINS Sheryl Bassett MD [address] [place] [address] [facility] [address] [address] Reason Comments Established Patient Specialty Diagnoses / Procedures Referred By Contac t Referred To Contact Gastroenterology Diagnoses Postprocedural leakage from bile duct Diarrhea, unspecified type Procedures CONSULT TO GASTROENTEROLOGY OFFICE/OUTPATIENT [facility] MDM 60-74 MINUTES Germaine Bray [facility] [address] [place] [address] Referral ID Status Reason Start Date Expiration Date V isits Requested Visits Authorized [id number] Closed PCP Requested Referral 06/10/2023 06/09/2024 1 1 Reason Comments Refill Request Reason Comments Medication Problem Reason Comments Follow Up Goals (unrecognized section and content) Goals may be documented in a n alternate sectionGoals may be documented in an alternate sectionGoals may be documented in an alternate sectionGoals may be documented in an alternate sectionGoals may be documented in an alternate sectionGoals may be documented in an alternate sectionGoals may be documented in an alternate section Care Teams (unrecognized sec tion and content) Corporate Trainer Relationship Specialty Start Date End Date Iván Case [address] [place] [address] PCP - General Family Medicine 10/23/20 Corporate Trainer Relationship Specialty Start Date End Date Iván Case [address] [place] [address] PCP - General Family Medicine 10/23/20 Corporate Trainer Relationship Specialty Start Date End Date Iván Case MD [address] [place] [address] PCP - General Family Medicine 10/23/20 Corporate Trainer Relationship Specialty Start Date End Date Iván Case MD [address] [place] [address] PCP - General Family Medicine 10/23/20 Corporate Trainer Relationship Specialty Start Date End Date Iván Case MD [address] [place] [address] PCP - General Family Medicine 10/23/20 Corporate Trainer Relationship Specialty Start Date End Date Iván Case MD [address] [place] [address] PCP - General Family Medicine 10/23/20 Corporate Trainer Relationship Specialty Start Date End Date Iván Case MD [address] [place] [address] PCP - General Family Medicine 10/23/20 Corporate Trainer Relationship Specialty Start Date End Date Iván Case MD [address] [place] [address] PCP - General Family Medicine 10/23/20 Corporate Trainer Relationship Specialty Start Date End Date Iván Case MD [address] [place] [address] PCP - General Family Medicine 10/23/20 Corporate Trainer Relationship Specialty Start Date End Date Iván Case MD [address] [place] [address] PCP - General Family Medicine 10/23/20 Corporate Trainer Relationship Specialty Start Date End Date Iván Case MD [address] [place] [address] PCP - General Family Medicine 10/23/20 Corporate Trainer Relationship Specialty Start Date End Date Iván Case MD [address] [place] [address] PCP - General Family Medicine 10/23/20 Corporate Trainer Relationship Specialty Start Date End Date Iván Case MD [address] [place] [address] PCP - General Family Medicine 10/23/20 Corporate Trainer Relationship Specialty Start Date End Date Iván Case MD [address] [place] [address] PCP - General Family Medicine 10/23/20 Corporate Trainer Relationship Specialty Start Date End Date Iván Case MD [address] [place] [address] PCP - General Family Medicine 10/23/20 Corporate Trainer Relationship Specialty Start Date End Date Iván Case MD [address] [place] [address] PCP - General Family Medicine 10/23/20 Corporate Trainer Relationship Specialty Start Date End Date Iván Case MD [address] [place] [address] PCP - General Family Medicine 10/23/20 Corporate Trainer Relationship Specialty Start Date End Date Iván Case MD [address] [place] [address] PCP - General Family Medicine 10/23/20 Corporate Trainer Relationship Specialty Start Date End Date Iván Case MD [address] [place] [address] PCP - General Family Medicine 10/23/20 Corporate Trainer Relationship Specialty Start Date End Date Iván Case MD [address] [place] [address] PCP - General Family Medicine 10/23/20 Corporate Trainer Relationship Specialty Start Date End Date Iván Case MD [address] [place] [address] PCP - General Family Medicine 10/23/20 Corporate Trainer Relationship Specialty Start Date End Date Iván Case MD [address] [facility] [address] [place] [address] PCP - General Family Medicine 10/23/20 Corporate Trainer Relationship Specialty Start Date End Date Iván Case MD [address] [facility] [address] [place], [place] [address] PCP - General Family Medicine 10/23/20 Corporate Trainer Relationship Specialty Start Date End Date Iván Case MD [address] [facility] [address] [place] [id number] PCP - General 12/12/19 Scheduled Active and Recently Administ ered Medications (unrecognized section and content) Medication Order 02/19/2025 02/20/2025 02/21/2025 acetaminophen (Tylenol) tablet 1,000 mg 1,000 mg, Oral, Every 8 hours, First dose on Wed02/21/25 at 0700, Maximum dose of acetaminophen is 4000 mg from all sources in 24 hours. 0639 (Given - Provid er: Eula Ku RN) heparin injection 5,000 Units 5,000 Units, SubCUTAneous, Every 8 hours scheduled (3 times per day), First dose on Wed02/21/25 at 0830 0846 (Given - Provid er: Eula Mayorga RN)1400 (Canceled Entry - Provider: Automatic Discharge Provider - Comment: Automatically canceled at discontinue of medication order) Insulin Lispro (Humalog) injection 0-6 Units(Linked Group 1) 0-6 Units, SubCUTAneous, 3 times daily with meals, First dose on Wed02/20/25 at 1700, Low Dose Correction Algorithm Glucose: Dose: LESS than 150 No Insulin 150-199 1 Unit 200-249 2 Units 250-299 3 Units 300-349 4 Units 350-400 5 Units Above 400 6 Units 1724 (Not Given - Provider: Zack Garcias RN - Reason: NPO) 0651 (Not Given - Provider: Eula Ku RN - Reason: Order parameters not met)1200 (Canceled Entry - Provider: Automatic Discharge Provider - Comment: Automatically canceled at discontinue of medication order) Insulin Lispro (Humalog) injection 0-6 Units(Linked Group 1) 0-6 Units, SubCUTAneous, Nightly, First dose on Wed02/20/25 at 2100, If eating or bolus tube feeding: Low Dose Correction Algorithm Glucose: Dose: LESS than 150 No Insulin 150-199 1 Unit 200-249 2 Units 250-299 3 Units 300-349 4 Units 350-400 5 Units Above 400 6 Units 2032 (Not Given - Provider: Eula Ku RN - Reason: Order parameters not met) lamoTRIgine (LaMICtal) tablet 200 mg 200 mg, Oral, Daily, First dose on Wed02/20/25 at 1630 1722 (Given - Provider: Zack Garcias RN) 0751 (Given - Provider: Eula Mayorga, YUN) losartan (Cozaar) tablet 50 mg 50 mg, Oral, Daily, First dose on Wed02/21/25 at 0900 0751 (Given - Provid er: Eula Mayorga RN) mupirocin (Bactroban) 2 % ointment 1 Application 1 Application, Nasal, 2 times daily, First dose on Wed02/20/25 at 2100, For 5 days, Indications: MRSA Nasal Decolonization 2032 (Not Given - Provider: Eula Ku RN - Reason: Patient/family refused) 08 (Not Given - Provider: Eula Mayorga RN - Reason: Patient/family refused) primidone (Mysoline) tablet 50 mg 50 mg, Oral, Nightly, First dose on Wed02/20/25 at 2100 2027 (Given - Provider: Eula Ku, YUN) rosuvastatin (Crestor) tablet 10 mg 10 mg, Oral, Nightly, First dose on Wed02/20/25 at 2100 2027 (Given - Provider: Eula Ku, YUN) sennosides (Senokot) tablet 8.6 mg 8.6 mg (1 tablet), Oral, Nightly, First dose on Wed02/21/25 at 2100 sodium chloride 0.9% (NS) flush 30 mL 30 mL, IntraVENous, Every 6 hours, First dose on Wed02/20/25 at 1530 1552 (Given - Provider: Zack Garcias, RN)2033 (Not Given - Provider: Eula Ku RN - Reason: IV Fluids Infusing) 0320 (Not Given - Provider: Eula Ku RN - Reason: IV Fluids Infusing)0846 (Given - Provider: Eula Mayorga, YUN) Continuous Medication Order 02/19/2025 02/20/2025 02/21/2025 sodium chloride 0.9 % infusion 75 mL/hr, IntraVENous, Continuous, Starting on Wed02/20/25 at 1530 1552 (New Bag - Provider: Zack Garcias, YUN) PRN Medication Order 02/19/2025 02/20/2025 02/21/2025 dextrose 5 % infusion 100 mL/hr, IntraVENous, PRN, Blood sugar less than 70mg/dL, Starting on Wed02/20/25 at 1526, Start infusion following administration of dextrose 50% or glucagon. dextrose 50 % solution 12.5 g 12.5 g, IntraVENous, PRN, low blood sugar, Blood glucose less than 70 mg/dL and patient NOT ALERT or NPO., Starting on Wed02/20/25 at 1526, If patient does not respond within 5 minutes, repeat dose x1. Start D5W at 100 mL/hour until ordering provider can be reached. Repeat blood glucose in 15 minutes. If blood glucose is less than 70 mg/dL, repeat treatment and recheck blood glucose in 15 minutes x2. If using Glucostabilizer, dose as instructed per system. doxepin (SINEquan) capsule 10 mg 10 mg, Oral, Nightly PRN, tremors, Starting on Wed02/20/25 at 1523 glucagon (human recombinant) injection 1 mg 1 mg, IntraMUSCular, PRN, low blood sugar, Blood glucose less than 70 mg/dL and patient NOT ALERT or NPO and does not have IV access., Starting on Wed02/20/25 at 1526, After administration, attempt intravenous access and start D5W at 100 mL/hr. Repeat blood glucose in 15 minutes x2 and notify provider. glucose oral gel 15 g 15 g, Oral, As needed, low blood sugar, Starting on Wed02/20/25 at 1526, If blood glucose less than 50 mg/dL and patient ALERT and NOT NPO, give 2 tubes glucose gel. If blood glucose less than 70 mg/dL and patient ALERT and NOT NPO, give 1 tube glucose gel. Repeat blood glucose in 15 minutes. If blood glucose is less than 70 mg/dL, repeat treatment and recheck blood glucose in 15 minutes x2 and notify provider. hydrALAZINE (Apresoline) injection 10 mg 10 mg, IntraVENous, Every 2 hour PRN, high blood pressure, 2nd line for SBP goals <160, hold for HR > 95, Starting on Wed02/20/25 at 2311 labetalol (Normodyne,Trandate) injection 10 mg (CANCELED) 10 mg, IntraVENous, Every 10 min PRN, high blood pressure, 1st line for SBP goals <150, hold for HR <60, Starting on Wed02/20/25 at 1821 1834 (Given - Provider: Zack Garcias RN) labetalol (Normodyne,Trandate) injection 10 mg 10 mg, IntraVENous, Every 2 hour PRN, high blood pressure, 1st line for SBP goals <160, hold for HR <60, Starting on Wed02/20/25 at 2311 naloxone (Narcan) injection 0.4 mg 0.4 mg, IntraVENous, Every 5 min PRN, opioid reversal, respiratory depression, Starting on Wed02/20/25 at 1532, +++ For RR <10, pinpoint pupils, over sedation for opioid reversal - MUST notify facility operations manager provider immediately after first dose, may give IM or SQ if no IV access +++ ondansetron (Zofran) injection 4 mg(Linked Group 2) 4 mg, IntraVENous, Every 6 hours PRN, nausea, vomiting, Starting on Wed02/20/25 at 1524, 1st Line. Give IV if patient is unable to take orally. If inadequate response within 60 minutes, proceed to next-line agent or contact provider if no further options ordered. ondansetron ODT (Zofran-ODT) disintegrating tablet 4 mg(Linked Group 2) 4 mg, Oral, Every 8 hours PRN, nausea, vomiting, Starting on Wed02/20/25 at 1524, 1st Line. If inadequate response within 60 minutes, proceed to next-line agent or contact provider if no further options ordered. Patient should allow tablet to dissolve on tongue. Do not remove from blister pack until just before administering. oxyCODONE (Roxicodone) immediate release tablet 2.5 mg 2.5 mg, Oral, Every 4 hours PRN, moderate pain (4-6), severe pain (7-10), Starting on Wed02/21/25 at 0632 polyethylene glycol (PEG) 3350 (Miralax) packet 17 g 17 g, Oral, Daily PRN, constipation, Starting on Wed02/20/25 at 1524, 1st line for treatment of constipation - give scheduled if no bowel movement in past 24 hours. sodium chloride 0.9% (NS) flush 30 mL 30 mL, IntraVENous, PRN, line care, Starting on Wed02/20/25 at 1524, After every IV line use sodium chloride 0.9% (NS) flush 30 mL 30 mL, IntraVENous, PRN, line care, Starting on Wed02/20/25 at 1524 Linked Groups Order Group 1: Insulin Lispro (Humalog) injection 0-6 UnitsJump to med 0-6 Units, SubCUTAneous, 3 times daily with meals, First dose on Wed02/20/25 at 1700, Low Dose Correction Algorithm Glucose: Dose: LESS than 150 No Insulin 150- 199 1 Unit 200-249 2 Units 250-299 3 Units 300-349 4 Units 350-400 5 Units Above 400 6 Units And Insulin Lispro (Humalog) injection 0-6 UnitsJump to med 0-6 Units, SubCUTAneous, Nightly, First dose on Wed02/20/25 at 2100, If eating or bolus tube feeding: Low Dose Correction Algorithm Glucose: Dose: LESS than 150 No Insulin 150-199 1 Unit 200-249 2 Units 250-299 3 Units 300-349 4 Units 350-400 5 Units Above 400 6 Units Group 2: ondansetron ODT (Zofran-ODT) disintegrating tablet 4 mgJump to med 4 mg, Oral, Every 8 hours PRN, nausea, vomiting, Starting on Wed02/20/25 at 1524, 1st Line. If inadequate response within 60 minutes, proceed to next-line agent or contact provider if no further options ordered. Patient should allow tablet to dissolve on tongue. Do not remove from blister pack until just before administering. Or ondansetron (Zofran) injection 4 mgJump to med 4 mg, IntraVENous, Every 6 hours PRN, nausea, vomiting, Starting on Wed02/20/25 at 1524, 1st Line. Give IV if patient is unable to take orally. If inadequate response within 60 minutes, proceed to next-line agent or contact provider if no further options ordered. FOR RECORDS PERTAINING TO PATIENTS WHO ARE OR HAVE BEEN ENROLLED IN A CHEMICAL DEPENDENCY/SUBSTANCEABUSE PROGRAM, SOME INFORMATION MAY BE OMITTED. This clinical summary was aggregated from multiple sources. Caution should be exercised in using it in the provision of clinical care. This summary normalizes information from multiple sources, and as a consequence, information in this document may materially change the coding, format and clinical context of patient data. In addition, data may be omitted in some cases. CLINICAL DECISIONS SHOULD BE BASED ON THE PRIMARY CLINICAL RECORDS. [employer] [facility]. provides no warranty or guarantee of the accuracy or completeness of information in this document.
--- OUTSIDE RECORDS SUMMARY | 2025-03-21 23:16 | XMS RPT_ITS | CCD ---
Author Organization [facility] CliniSyar Care Team Providers Care Outsewer Name Role Phone Neo Tian Primary Care Provider Iván Case Primary Care Provider [phone] Zohaib STAHL, Dale Barrientos Unavailable Humberto STAHL, Hiram Barrientos Unavailable Dr. Iván Case Primary Care Provider [phone] Dr. Abundio Contreras Emergency Provider Dr. Myesha [...] Dr. Iván Case Primary Care Provider [phone] Dr. Marisa Sabillon Attending Provider FriendDr. Calle Referring Provider Dr. Iván Case Primary Care Provider Dr. Iván Case Referring Provider [phone] John ACCOUNT STRATEGIST, ACCOUNT STRATEGISTLiC Karla Attending Provider Iván Case Primary Care [...] Unavailable SCHINDAVID, IVÁN E Primary Care Unavailable SERJIO, SHERYL [...] Primary Care Unavailable SchIván tesfaye Referring Unavailable SchIávn tesfaye Primary Care Unavailable Iván Case Attending [...] Unavailable Schinner, Iván E Referring Unavailable Ab ACCOUNT STRATEGIST, Elba Attending Unavailable Schinner, Iván E Primary Care Unavailable Schinner, Iván E Primary Care Unavailable Schinner, Iván E Referring Unavailable Carlie ACCOUNT STRATEGIST, Iván Oh Attending Unavailable Schinner, Iván E Primary Care Unavailable Nilay Ellsworth Attending Unavailable Schinner, Iván E Primary Care Unavailable Neo Tian Attending Unavailable Schinner, Iván E Primary Care Unavailable Neo Tian Attending Unavailable Schinner, Iván E Primary Care Unavailable Nilay Ellsworth Attending Unavailable Schinner, Iván E Primary Care Unavailable Nilay Ellsworth Attending Unavailable Schinner, Iván E Referring Unavailable Berger ACCOUNT STRATEGIST, Elba Attending Unavailable Schinner, Iván E Primary Care Unavailable Schinner, Iván E Primary Care Unavailable Asmita, Neo Attending Unavailable Schinner, Iván E Primary Care Unavailable Ab ACCOUNT STRATEGIST, Elba Referring Unavailable Berger ACCOUNT STRATEGIST, Elba Attending Unavailable Schinner, Iván E Referring Unavailable Schinner, Iván E Attending Unavailable Schinner, Iván E Primary Care Unavailable Schinner, Iván E Referring Unavailable Carlie ACCOUNT STRATEGIST, Iván Oh Attending Unavailable Schinner, Iván E Primary Care Unavailable IBAN RAMIREZ Attending Unavailable JENNIFER SOLORZANO Referring Unavailable SHARIFA, IVÁN Primary Care Unavailable MOISES HOLGUIN Admitting Unavailable GARY DEUTSCH Consulting Unavailable MICKY [...] S/P CABG x 3 , CAD in [place] artery Take 1 tablet by mouth every [...] Comment on above: [facility] dapagliflozin 10 mg oral tablet [...] MRI docusate sodium 50 mg / sennosides, fdc 8.6 mg oral tablet (2 sources) Start: [...] daily to BE TAKEN ALONG WITH 200 NM... (REFER TO PRESCRIPTION NOTES). 03/30/2023 01/17/2024 Discontinued (Course of therapy completed) End: 01-17-2024 take 1 tablet by mouth once daily lamoTRIgine ER (LAMICTAL XR) 250 mg 24 hr tablet Take by mouth once daily. 01/17/2024 Discontinued (Course of therapy completed) Comment on above: Take by mouth once d aily. take 1/2 tablet by m outh once daily to BE TAKEN ALONG WITH 200 NM... (REFER TO PRESCRIPTION NOTES). lidocaine 0.04 mg/mg [...] 10 mg by mouth every evening. sennosides, fdc 8.6 mg oral tablet (2 sources) Start: [...] four hours as needed for pain tramadol [id number] Hiram Paul MD take 1-2 tablets by mouth three times daily as needed TRAMADOL HCL 50 MG TABS 1-2 tablet by mo [facility] three times a day as needed tramadol [id number] Gemini Razo LPN Completed/Discontinued Medications Medication Drug Class(es) Dates Sig (Normalized) Sig (Original) acetaminophen 325 mg / HYDROcodone bitartrate 5 mg oral tablet (7 sources) Opioid Agonist Start: 09-01-2021 End: 09-04-2021 take 1 tablet by mouth every eight hours Hydrocodone-Aceta minophen ([place]) 5-325 mg Tablet Discontinued 1 TABLET PO Q8H September 01, 2021 12:00am September 04, 2021 8:18am 20 ml albumin human, fdc 250 mg/ml injection (1 source) Human Serum [...] outh 1 hour prior to procedure amylase 652622 unt / lipase 01327 unt / protease 070354 unt delayed release oral capsule (20 sources) Start: 08-02-20 End: 01-17-20 24 take 2 capsules by mouth three times daily at mealtime, then take 1 capsule by mouth before mealtime ajfdah-nlzjpifi-yxbm ase (CREON 36) 36,000-114,000- 180,000 unit delayed release capsule Indications: Exocrine pancreatic insufficiency Take 2 caps by mouth 3 times daily with meals and 1 cap with each snack. Take 1st cap before meal starts and the 2nd cap chcf through. 240 capsule 5 10/13/2023 01/17/2024 Discontinued (Course of therapy completed) Comment on above: Take 2 caps by mouth 3 times daily with meals and 1 cap with each snack. Take 1st cap before meal starts and the 2nd cap chcf through. atorvastatin 80 mg oral tablet (20 [...] bot h eyes twice a day dorzolamide [id number] Gemini Razo LPN Comment on above: Use [...] End: 02-21-2025 Start: 12-15-2019 15 g, Oral, CA N, Low blood sugar, Starting Wed12/15/19 at [...] glucagon. Post-op 0.5 ml heparin sodium, porcine 82769 unt/ml prefilled syringe (2 sources) Unfractionated Heparin, [...] interventions based on BGT and call the Hypo Splasher. o Maximum insulin infusion drip rate may not exceed 30 units/hr; Insulin drip may NOT be discontinued unless approved by Hypo Splasher. Discontinue all subcutaneous Insulin orders (if patient [...] th twice a day polyethylene glycol 3350 17919 mg powder for oral solution (3 sources) [...] 20 ml/hr to SP(introducer) and WT on Louise Iza Catheter; once Louise discontinued run at 20 ml/hr through SP(introducer) [...] coronary artery disease; Translations: [Coronary arteriosclerosis in [place] artery] Onset: 0 12-15-2019 Chronic Diabetes mellitus [...] Test Name Value Interpretation Reference Range Facility [id number] 02-21-2025 [id number] Care Managment Initi al Assessment Date: 02/21/2025 Patient Name: Douglas Callaway : 1955 Patient Information Source of Information: Patient Cognition/Language: WFL - Within Functional Limits Permission given to speak with patient independent sales representative/caregiver as indicated: Yes Confirmation of Payer [...] when pt is discharged. Will follow. Normal [facility] BASIC METABOLIC PANELon 06- Anion gap [Moles/Vol] 7 mmol/L Normal 3-13 [facility] Comment on above: Performed By: #### L [id number] ####Electrocardiograph Repairer: JOHANNA PAYAN ([id number])[facility])[address] [place] [address] Calcium [Mass/Vol] 8.4 mg/dL Low 8.8-10.0 [facility] Comment on above: Performed By: #### L [id number] ####Electrocardiograph Repairer: JOHANNA PAYAN ([id number])[facility])[address] [place] [address] Chloride [Moles/Vol] 107 mmol/L Normal 98-107 [facility] Comment on above: Performed By: #### L [id number] ####Electrocardiograph Repairer: JOHANNA PAYAN ([id number])[facility] ([facility])[address] [place] [address] CO2 [Moles/Vol] 24 mmol/L Normal 23-31 [facility] Comment on above: Performed By: #### L [id number] ####Electrocardiograph Repairer: JOHANNA PAYAN ([id number])[facility])[address] [place] [address] Creatinine [Mass/Vol] 1.68 mg/dL High 0.72-1.25 [facility] Comment on above: Performed By: #### L [id number] ####Electrocardiograph Repairer: JOHANNA PAYAN ([id number])[facility])[address] [place] [address] [place] GLOMERULAR FILTRATION RATE ML/MIN/1.73 SQ M.PREDICTED 43.4 mL/min/1.73m*2 Low >60.0 [facility] Comment on above: Result Comment: Calc ulation based on the Chronic Kidney Disease Epidemiology Collaboration (CKD-EPI) equation refit without adjustment for race Performed By: #### L [id number] ####Electrocardiograph Repairer: JOHANNA [id number])[facility] ([facility])[address] [place] [address] Glucose [Mass/Vol] 95 mg/dL Normal 82-115 [facility] Comment on above: Performed By: #### L [id number] ####Electrocardiograph Repairer: JOHANNA PAYAN ([id number])[facility] ([facility])[address] [place] [address] Potassium [Moles/Vol] 4.0 mmol/L Normal 3.5-5.1 [facility] Comment on above: Result Comment: Plas ma potassium values may be up to 0.5 mmol/L lower than serum values. Performed By: #### L [id number] ####Electrocardiograph Repairer: JOHANNA PAYAN ([id number])[facility] ([facility])[address] [place] [address] Sodium [Moles/Vol] 138 mmol/L Normal 136-145 [facility] Comment on above: Performed By: #### L [id number] ####Electrocardiograph Repairer: JOHANNA PAYAN ([id number])[facility] ([facility])[address] [place] [address] Urea nitrogen [Mass/Vol] 25 mg/dL High 9-23 [facility] Comment on above: Performed By: #### L [id number] ####Electrocardiograph Repairer: JOHANNA PAYAN ([id number])[facility])[address] [place] [address] Basic metabolic 1998 panelon 02-21-2025 Anion gap [Moles/Vol] 7 mmol/L 3 - 13 mmol/L [facility] Calcium [Mass/Vol] 8.4 mg/dL Low 8.8 - 10. 0 mg/dL [facility] Chloride [Moles/Vol] 107 mmol/L 98 - 107 mmol/L [facility] CO2 [Moles/Vol] 24 mmol/L 23 - 31 mmol/L [facility] Creatinine [Mass/Vol] 1.68 mg/dL High 0.72 - 1.25 mg/dL [facility] GFR/1.73 sq M.predicted (S/P/Bld) [Vol rate/Area] 43.4 mL/min Low - PINF [facility] Comment on above: Calculation based on the Chronic Kidney Disease Epidemiology Collaboration (CKD-EPI) equation refit without adjustment for race Glucose [Mass/Vol] 95 mg/dL 82 - 115 mg/dL [facility] Interpretation and review of laboratory results Abnormal [facility] Potassium [Moles/Vol] 4 mmol/L 3.5 - 5.1 mmol/L [facility] Comment on above: Plasma potassium barbara ues may be up to 0.5 mmol/L lower than serum values. Sodium [Moles/Vol] 138 mmol/L 136 - 145 mmol/L [facility] Urea nitrogen [Mass/Vol] 25 mg/dL High 9 - 23 mg/dL [facility] CBC W Auto Differential pane l (Bld)on 02-21-2025 Basophils (Bld) [#/Vol] 0 10*3/uL 0.0 - 0.2 10*3/uL [facility] Basophils/100 WBC (Bld) 0.3 % 0.0 - 2.0 % [facility] Eosinophils (Bld) [#/Vol] 0.1 10*3/uL 0.0 - 0.5 10*3/uL [facility] Eosinophils/100 WBC (Bld) 1.5 % 0.0 - 6.0 % [facility] Erythrocyte distribution width (RBC) [Ratio] 13.1 % 11.5 - 15.0 % [facility] Hematocrit (Bld) [Volume fraction] 37 % Low 40.0 - 52.0 % [facility] Hemoglobin (Bld) [Mass/Vol] 12.1 g/dL Low 13.0 - 18.0 g/dL [facility] Immature granulocytes (Bld) [#/Vol] 0 10*3/uL NINF - 0.1 10*3/uL [facility] Immature granulocytes/100 WBC (Bld) 0.6 % 0.0 - 2.0 % [facility] Interpretation and review of laboratory results Abnormal [facility] Lymphocytes (Bld) [#/Vol] 1.5 10*3/uL 1.0 - 4.3 10*3/uL [facility] Lymphocytes/100 WBC (Bld) 21.3 % 15.0 - 45.0 % [facility] MCH (RBC) [Entitic mass] 32.4 pg 26.0 - 34.0 pg [facility] MCHC (RBC) [Mass/Vol] 32.7 % 30.5 - 36.0 % [facility] MCV (RBC) [Entitic vol] 99.2 fL High 77.0 - 99.0 fL [facility] Monocytes (Bld) [#/Vol] 0.7 10*3/uL 0.0 - 0.9 10*3/uL [facility] Monocytes/100 WBC (Bld) 10.6 % 5.0 - 13.0 % [facility] Neutrophils (Bld) [#/Vol] 4.5 10*3/uL 1.8 - 7.5 10*3/uL [facility] Neutrophils/100 WBC (Bld) 65.7 % 38.0 - 82.0 % [facility] Nucleated RBC/100 WBC (Bld) [Ratio] 0 % [facility] Platelet mean volume (Bld) [Entitic vol] 9.9 fL 9.0 - 12.7 fL [facility] Platelets (Bld) [#/Vol] 184 10*3/uL 140 - 440 10*3/uL [facility] RBC (Bld) [#/Vol] 3.73 10*6/uL Low 4.40 - 5.9 0 10*6/uL [facility] WBC (Bld) [#/Vol] 6.9 10*3/uL 3.6 - 10.7 10*3/uL [facility] CBC WITH AUTO DIFFERENTIALon 02-21-2025 Basophils (Bld) [#/Vol] 0.0 10*3/uL Normal 0.0-0.2 [facility] Comment on above: Performed By: #### L [id number] #### Electrocardiograph Repairer: JOHANNA PAYAN ([id number]) [facility] ([facility]) [address] [place] [address] Basophils/100 WBC (Bld) 0.3 % Normal 0.0-2.0 [facility] Comment on above: Performed By: #### L [id number] #### Electrocardiograph Repairer: JOHANNA PAYAN ([id number]) [facility] ([facility]) [address] [place] [address] Eosinophils (Bld) [#/Vol] 0.1 10*3/uL Normal 0.0-0.5 [facility] Comment on above: Performed By: #### L [id number] #### Electrocardiograph Repairer: JOHANNA PAYAN ([id number]) [facility]) [address] [place] [address] Eosinophils/100 WBC (Bld) 1.5 % Normal 0.0-6.0 [facility] Comment on above: Performed By: #### L [id number] #### Electrocardiograph Repairer: JOHANNA PAYAN ([id number]) [facility]) [address] [place] [address] Erythrocyte distribution width (RBC) [Ratio] 13.1 % Normal 11.5-15.0 [facility] Comment on above: Performed By: #### L [id number] #### Electrocardiograph Repairer: JOHANNA PAYAN ([id number]) [address] Hematocrit (Bld) [Volume fraction] 37.0 % Low 40.0-52.0 [facility] Comment on above: Performed By: #### L [id number] #### Electrocardiograph Repairer: JOHANNA PAYAN ([id number]) [facility]) [address] [place] [address] Hemoglobin (Bld) [Mass/Vol] 12.1 g/dL Low 13.0-18.0 [facility] Comment on above: Performed By: #### L [id number] #### Electrocardiograph Repairer: JOHANNA PAYAN ([id number]) [facility]) [address] [place] [address] IMMATURE GRANS % 0.6 % Normal 0.0-2.0 [facility] Comment on above: Performed By: #### L [id number] #### Electrocardiograph Repairer: JOHANNA PAYAN ([id number]) [address] IMMATURE GRANS ABSOLUTE 0.0 10*3/uL Normal <0.1 [facility] Comment on above: Performed By: #### L [id number] #### Electrocardiograph Repairer: JOHANNA [id number]) [facility]) [address] [place] [address] Lymphocytes (Bld) [#/Vol] 1.5 10*3/uL Normal 1.0-4.3 [facility] Comment on above: Performed By: #### L [id number] #### Electrocardiograph Repairer: JOHANNA PAYAN ([id number]) [facility]) [address] [place] [address] Lymphocytes/100 WBC (Bld) 21.3 % Normal 15.0-45.0 [facility] Comment on above: Performed By: #### L [id number] #### Electrocardiograph Repairer: JOHANNA PAYAN ([id number]) [facility]) [address] [place] [address] MCH (RBC) [Entitic mass] 32.4 pg Normal 26.0-34.0 [facility] Comment on above: Performed By: #### L [id number] #### Electrocardiograph Repairer: JOHANNA PAYAN ([id number]) [facility]) [address] [place] [address] MCHC 32.7 % Normal 30.5-36.0 [facility] Comment on above: Performed By: #### L [id number] #### Electrocardiograph Repairer: JOHANNA PAYAN ([id number]) [facility]) [address] [place] [address] MCV (RBC) [Entitic vol] 99.2 fL High 77.0-99.0 [facility] Comment on above: Performed By: #### L [id number] #### Electrocardiograph Repairer: JOHANNA PAYAN ([id number]) [facility]) [address] [place] [address] Monocytes (Bld) [#/Vol] 0.7 10*3/uL Normal 0.0-0.9 [facility] Comment on above: Performed By: #### L [id number] #### Electrocardiograph Repairer: JOHANNA PAYAN ([id number]) [facility]) [address] [place] [address] Monocytes/100 WBC (Bld) 10.6 % Normal 5.0-13.0 [facility] Comment on above: Performed By: #### L [id number] #### Electrocardiograph Repairer: JOHANNA PAYAN ([id number]) [facility] ([facility]) [address] [place] [address] NEUTROPHILS ABSOLUTE 4.5 10*3/uL Normal 1.8-7.5 [facility] Comment on above: Performed By: #### L [id number] #### Electrocardiograph Repairer: JOHANNA PAYAN ([id number]) [facility] ([facility]) [address] [place] [address] Neutrophils/100 WBC (Bld) 65.7 % Normal 38.0-82.0 [facility] Comment on above: Performed By: #### L [id number] #### Electrocardiograph Repairer: JOHANNA PAYAN ([id number]) [facility] ([facility]) [address] [place] [address] NRBC 0.0 /100 WBCs Normal 0.0-2.0 [facility] Comment on above: Performed By: #### L [id number] #### Electrocardiograph Repairer: JOHANNA PAYAN ([id number]) [facility] ([facility]) [address] [place] [address] Platelet mean volume (Bld) [Entitic vol] 9.9 fL Normal 9.0-12.7 [facility] Comment on above: Performed By: #### L [id number] #### Electrocardiograph Repairer: JOHANNA PAYAN ([id number]) [facility] ([facility]) [address] [place] [address] Platelets (Bld) [#/Vol] 184 10*3/uL Normal 140-440 [facility] Comment on above: Performed By: #### L [id number] #### Electrocardiograph Repairer: JOHANNA PAYAN ([id number]) [facility] ([facility]) [address] [place] [address] RBC (Bld) [#/Vol] 3.73 10*6/uL Low 4.40-5.90 [facility] Comment on above: Performed By: #### L [id number] #### Electrocardiograph Repairer: JOHANNA PAYAN ([id number]) [facility] [address] [place] [address] WBC (Bld) [#/Vol] 6.9 10*3/uL Normal 3.6-10.7 [facility] Comment on above: Performed By: #### L [id number] #### Electrocardiograph Repairer: JOHANNA JHAKAYLYN ([id number]) [facility] ([facility]) [address] [place] [address] CT CERVICAL SPINE WO IV CONT RASTon 02-21-2025 CT CERVICAL SPINE WO IV CONTRAST Patient Name: DOUGLAS CALLAWAY : 1955 Exam Date/Time: 02/20/2025 17:07 Procedure: CT CERVICAL SPINE WO IV CONTRAST Ordering Provider: RAMIREZ NATHAN Reason For Exam: fu [facility] fall from standing CT CERVICAL SPINE [...] Signed Date/Time: 02/21/2025 4:59 AM EDT Normal [facility] CT Cervical spine WO contras ton 02-21-2025 No fracture or dislocation of the cervical spine. Mild to moderate diffuse degenerative changes of the cervical spine. Report Dictated on Electronically Signed By: Dale Islas MD Electronically Signed Date/Time: 02/21/2025 4:59 AM EDT [facility] Patient Name: DOUGLAS SIMON : 1955 Exam Date/Time: 02/20/2025 17:07 Procedure: CT CERVICAL SPINE WO IV CONTRAST Ordering Provider: RAMIREZ NATHAN Reason For Exam: sp [facility] fall from standing CT CERVICAL SPINE WITHOUT [...] severe bony central canal stenosis is present. [facility] Dale Islas MD - 02/21/2025 Patient Name: DOUGLAS CALLAWAY : 1955 Exam Date/Time: 02/20/2025 17:07 Procedure: CT CERVICAL SPINE WO IV CONTRAST Ordering Provider: RAMIREZ NATHAN Reason For Exam: [facility] fall from standing CT CERVICAL SPINE WITHOUT [...] Electronically Signed Date/Time: 02/21/2025 4:59 AM EDT [facility] Cervical spine WO contrbettina tOrdered By: Dale Islas on 02-21-2025 [facility] Consulton 02-21-2025 Consult [facility] Geriatric Medicine Inpatient Consult [...] spasms Advance Care Planning Healthcare Power of Core Checker: Yes, Financial Power of Core Checker: Yes, Living Will:Yes Code Status: Full Code [...] for c (more content not included)... Normal [facility] Consult -------- Attestation signed by Micky [...] aspirin at home. He was evaluated at [facility] and there was concern for intracranial blood. [...] mmol/L UREA (more content not included)... Normal [facility] Laboratory - Chemistry and C hemistry - challengeon 02-21-2025 Glucose [Mass/Vol] 94 mg/dL 70 - 100 mg/dL [facility] No Panel Informationon 02-21 Interpretation and review of laboratory results Normal [facility] Performed by: [facility], [address] [place] [address], [facility] [address] CLIA ID: [id number] [facility] Progress Noteon 02-21-2025 Progress Note Physician Response Please review the following and provide your response below. Please clarify which of the following accurately describes the patient's condition: Due to trauma This documentation will become part of the patient's medical record. Normal [facility] Progress Note -------- Attestation signed by [...] care plan as documented above by my DIRECTOR OF HOME CARE HOSPICE/LASTC. I personally discussed the review of systems [...] Surgery Division of Trauma Department of Surgery [facility] P [1] Patient Active Problem List Diagnosis Hyperglycemia CAD, multiple vessel S/P CABG x 3 Fall Intraventricular hemorrhage (HCC) Intracranial hemorrhage (HCC) Daily Trauma Progress Note BRANDAN 02/21/2025 7:15 AM Admit Date: 02/20/2025 Post Trauma Day 1 Fall Mechanical HISTORY OF TRAUMATIC EVENT: 69 y.o. male status post fall. The incident happened around this am on 02/20/2025 at [facility]. When the event happened the patient [...] Systems HENT (more content not included)... Normal [facility] BASIC METABOLIC PANELon - Anion gap [Moles/Vol] 6 mmol/L Normal 3-13 [facility] Comment on above: Performed By: #### L [id number] ####Electrocardiograph Repairer: JOHANNA PAYAN ([id number])[facility] [place] [address] Calcium [Mass/Vol] 8.8 mg/dL Normal 8.8-10.0 [facility] Comment on above: Performed By: #### L [id number] ####Electrocardiograph Repairer: JOHANNA PAYAN ([id number])[facility] ([facility])[address] [place] [address] [place] Chloride [Moles/Vol] 108 mmol/L High 98-107 [facility] Comment on above: Performed By: #### L [id number] ####Electrocardiograph Repairer: JOHANNA PAYAN ([id number])[facility] ([facility])[address] [place] [address] CO2 [Moles/Vol] 23 mmol/L Normal 23-31 [facility] Comment on above: Performed By: #### L [id number] ####Electrocardiograph Repairer: JOHANNA PAYAN ([id number])[facility] [place] [address] Creatinine [Mass/Vol] 1.47 mg/dL High 0.72-1.25 [facility] Comment on above: Performed By: #### L [id number] ####Electrocardiograph Repairer: JOHANNA PAYAN ([id number])[facility] ([facility])[address] [place] [address] [place] GLOMERULAR FILTRATION RATE ML/MIN/1.73 SQ M.PREDICTED 51.0 mL/min/1.73m*2 Low >60.0 [facility] Comment on above: Result Comment: Calc ulation based on the Chronic Kidney Disease Epidemiology Collaboration (CKD-EPI) equation refit without adjustment for race Performed By: #### L [id number] ####Electrocardiograph Repairer: JOHANNA PAYAN ([id number])[facility] ([facility])[address] [place] [address] [place] Glucose [Mass/Vol] 119 mg/dL High 82-115 [facility] Comment on above: Performed By: #### L [id number] ####Electrocardiograph Repairer: JOHANNA PAYAN ([id number])[facility] ([facility])[address] [place] [address] Potassium [Moles/Vol] 4.6 mmol/L Normal 3.5-5.1 [facility] Comment on above: Result Comment: Plas ma potassium values may be up to 0.5 mmol/L lower than serum values. Performed By: #### L AB15 ####Electrocardiograph Repairer: JOHANNA PAYAN ([id number])[facility] ([facility])[address] [place] [address] Sodium [Moles/Vol] 137 mmol/L Normal 136-145 [facility] Comment on above: Performed By: #### L AB15 ####Electrocardiograph Repairer: JOHANNA PAYAN ([id number])[facility] ([facility])[address] [place] [address] Urea nitrogen [Mass/Vol] 26 mg/dL High 9-23 [facility] Comment on above: Performed By: #### L AB15 ####Electrocardiograph Repairer: JOHNANA PAYAN ([id number])[facility] ([facility])[address] [place] [address] Basic Metabolic Profile (BMP )on 02-20-2025 BUN/CRE 14.6 RATIO Normal 10-20 [facility] Comment on above: Performed By: #### L 501.9985, L502.0250, L501.0900, L500.4100, L506.1001, L501.5101, L100.0100, L500.4050 #### [facility] [address] [place], [address] Calcium [Mass/Vol] 9.4 mg/dL Normal 7.6-11.0 [facility] Comment on above: Performed By: #### L 501.9985, L502.0250, L501.0900, L500.4100, L506.1001, L501.5101, L100.0100, L500.4050 #### [facility] [address] [place], [address] Chloride [Moles/Vol] 105 mmol/L Normal 98-108 [facility] Comment on above: Performed By: #### L 501.9985, L502.0250, L501.0900, L500.4100, L506.1001, L501.5101, L100.0100, L500.4050 #### [facility] [address] [place], [address] CO2 [Moles/Vol] 21.0 mmol/L Normal 21.0-32.0 [facility] Comment on above: Performed By: #### L 501.9985, L502.0250, L501.0900, L500.4100, L506.1001, L501.5101, L100.0100, L500.4050 #### [facility] [address] [place], [place], [phone] (445) Creatinine [Mass/Vol] 1.74 mg/dL High 0.70-1.20 [facility] Comment on above: Performed By: #### L 501.9985, L502.0250, L501.0900, L500.4100, L506.1001, L501.5101, L100.0100, L500.4050 #### [facility] [address] [place], [place], [phone] (204) ECRCL 38.22 ml/min Low 50-250 [facility] Comment on above: Performed By: #### L 501.9985, L502.0250, L501.0900, L500.4100, L506.1001, L501.5101, L100.0100, L500.4050 #### [facility] [address] [place], [address] GAP 13 Normal 5-15 [facility] Comment on above: Performed By: #### L 501.9985, L502.0250, L501.0900, L500.4100, L506.1001, L501.5101, L100.0100, L500.4050 #### [facility] [address] [place], [address] GFR/1.73 sq M.predicted among non-blacks MDRD (S/P/Bld) [Vol rate/Area] 42 mL/min/{1.73_m2} Low >60 [facility] Comment on above: Result Comment: mL/m in/1.73m2 CKD-EPI Creatinine Equation (2020) Performed By: #### L 501.9985, L502.0250, L501.0900, L500.4100, L506.1001, L501.5101, L100.0100, L500.4050 #### [facility] [address] [place], [address] Glucose [Mass/Vol] 143 mg/dL High 70-99 [facility] Comment on above: Performed By: #### L 501.9985, L502.0250, L501.0900, L500.4100, L506.1001, L501.5101, L100.0100, L500.4050 #### [facility] [address] [place], [address] Potassium [Moles/Vol] 4.9 mmol/L Normal 3.3-5.1 [facility] Comment on above: Performed By: #### L 501.9985, L502.0250, L501.0900, L500.4100, L506.1001, L501.5101, L100.0100, L500.4050 #### [facility] [address] [place], [address] Sodium [Moles/Vol] 139 mmol/L Normal 133-145 [facility] Comment on above: Performed By: #### L 501.9985, L502.0250, L501.0900, L500.4100, L506.1001, L501.5101, L100.0100, L500.4050 #### [facility] [address] [place], [address] Urea nitrogen [Mass/Vol] 25 mg/dL High 4-19 [facility] Comment on above: Performed By: #### L 501.9985, L502.0250, L501.0900, L500.4100, L506.1001, L501.5101, L100.0100, L500.4050 #### [facility] [address] [place], [address] Basic metabolic 1998 panelon 02-20-2025 Anion gap [Moles/Vol] 6 mmol/L 3 - 13 mmol/L [facility] Calcium [Mass/Vol] 8.8 mg/dL 8.8 - 10. 0 mg/dL [facility] Chloride [Moles/Vol] 108 mmol/L High 98 - 107 mmol/L [facility] CO2 [Moles/Vol] 23 mmol/L 23 - 31 mmol/L [facility] Creatinine [Mass/Vol] 1.47 mg/dL High 0.72 - 1.25 mg/dL [facility] GFR/1.73 sq M.predicted (S/P/Bld) [Vol rate/Area] 51 mL/min Low - PINF [facility] Comment on above: Calculation based on the Chronic Kidney Disease Epidemiology Collaboration (CKD-EPI) equation refit without adjustment for race Glucose [Mass/Vol] 119 mg/dL High 82 - 115 mg/dL [facility] Interpretation and review of laboratory results Abnormal [facility] Potassium [Moles/Vol] 4.6 mmol/L 3.5 - 5.1 mmol/L [facility] Comment on above: Plasma potassium barbara ues may be up to 0.5 mmol/L lower than serum values. Sodium [Moles/Vol] 137 mmol/L 136 - 145 mmol/L [facility] Urea nitrogen [Mass/Vol] 26 mg/dL High 9 - 23 mg/dL [facility] Brain/Head without Contrasto n 02-20-2025 Brain/Head without Contrast [facility] Imaging Services [address] [place], [place] [id number] Brain/Head without Contrast MR#: [id number] Acct: [id number] Name: DOUGLAS CALLAWAY Jr. Rep #: [id number] : 1955 M 69 From: Christiano Eduardo MD PCP: Dr. Iván Case MD Status: REG ER Study: Brain/Head without Contrast Date of Exam: 02/04 03/30 Exam# [id number] Ordering Dr: Jennifer Solorzano DO PROCEDURE: BRAIN/HEAD [...] CC: Dr. Jennifer Solorzano DO; Dr. Iván aCse MD Blanket Folder: Signed Normal [facility] CBC (HEMOGRAM)on 02-20-2025 Erythrocyte distribution width (RBC) [Ratio] 13.1 % Normal 11.5-15.0 [facility] Comment on above: Performed By: #### L AB294 ####Electrocardiograph Repairer: JOHANNA PAYAN ([id number])[facility])[address] [place] [address] Hematocrit (Bld) [Volume fraction] 36.5 % Low 40.0-52.0 [facility] Comment on above: Performed By: #### L AB294 ####Electrocardiograph Repairer: JOHANNA PAYAN ([id number])[facility])[address] [place] [address] Hemoglobin (Bld) [Mass/Vol] 12.3 g/dL Low 13.0-18.0 [facility] Comment on above: Performed By: #### L AB294 ####Electrocardiograph Repairer: JOHANNA PAYAN ([id number])[facility])[address] [place] [address] MCH (RBC) [Entitic mass] 32.5 pg Normal 26.0-34.0 [facility] Comment on above: Performed By: #### L AB294 ####Electrocardiograph Repairer: JOHANNA PAYAN ([id number])[facility] ([facility])[address] [place] [address] MCHC 33.7 % Normal 30.5-36.0 [facility] Comment on above: Performed By: #### L AB294 ####Electrocardiograph Repairer: JOHANNA PAYAN ([id number])[facility])[address] [place] [address] MCV (RBC) [Entitic vol] 96.6 fL Normal 77.0-99.0 [facility] Comment on above: Performed By: #### L AB294 ####Electrocardiograph Repairer: JOHANNA PAYAN ([id number])[facility])[address] [place] [address] Platelet mean volume (Bld) [Entitic vol] 9.9 fL Normal 9.0-12.7 [facility] Comment on above: Performed By: #### L AB294 ####Electrocardiograph Repairer: JOHANNA PAYAN ([id number])[facility] ([address] Platelets (Bld) [#/Vol] 191 10*3/uL Normal 140-440 [facility] Comment on above: Performed By: #### L AB294 ####Electrocardiograph Repairer: JOHANNA PAYAN ([id number])[facility])[address] [place] [address] RBC (Bld) [#/Vol] 3.78 10*6/uL Low 4.40-5.90 [facility] Comment on above: Performed By: #### L AB294 ####Electrocardiograph Repairer: JOHANNA PAYAN ([id number])[facility])[address] [place] [address] WBC (Bld) [#/Vol] 8.8 10*3/uL Normal 3.6-10.7 [facility] Comment on above: Performed By: #### L AB294 ####Electrocardiograph Repairer: JOHANNA PAYAN ([id number])[facility] ([facility])[address] [place] [address] CBC W/Diff, Automatedon 06- Absolute Lymph 1.12 X10 3/uL Normal 0.83-4.51 [facility] Comment on above: Performed By: #### L 501.9985, L502.0250, L501.0900, L500.4100, L506.1001, L501.5101, L100.0100, L500.4050 #### [facility] [address] [place], [address] Absolute Neut 6.8 X10 3/uL Normal 2.0-7.7 [facility] Comment on above: Performed By: #### L 501.9985, L502.0250, L501.0900, L500.4100, L506.1001, L501.5101, L100.0100, L500.4050 #### [facility] [address] [place], [address] Basophils/100 WBC (Bld) 0.3 % Normal 0-1 [facility] Comment on above: Performed By: #### L 501.9985, L502.0250, L501.0900, L500.4100, L506.1001, L501.5101, L100.0100, L500.4050 #### [facility] [address] [place], [address] Eosinophils/100 WBC (Bld) 1.4 % Normal 0-5 [facility] Comment on above: Performed By: #### L 501.9985, L502.0250, L501.0900, L500.4100, L506.1001, L501.5101, L100.0100, L500.4050 #### [facility] [address] [place], [address] Erythrocyte distribution width (RBC) [Ratio] 13.1 % Normal 11.6-14.6 [facility] Comment on above: Performed By: #### L 501.9985, L502.0250, L501.0900, L500.4100, L506.1001, L501.5101, L100.0100, L500.4050 #### [facility] [address] [place], [address] Hematocrit (Bld) [Volume fraction] 38.4 % Low 40-54 [facility] Comment on above: Performed By: #### L 501.9985, L502.0250, L501.0900, L500.4100, L506.1001, L501.5101, L100.0100, L500.4050 #### [facility] [address] [facility] [place], [address] Hemoglobin (Bld) [Mass/Vol] 12.9 g/dL Low 13.0-16.5 [facility] Comment on above: Performed By: #### L 501.9985, L502.0250, L501.0900, L500.4100, L506.1001, L501.5101, L100.0100, L500.4050 #### [facility] [address] [place], [address] IG% 1.200 High 0.0-0.9 [facility] Comment on above: Result Comment: IG% - Immature Granulocytes (promyelocytes, myelocytes and metamyelocytes) > 1% indicates that a LEFT SHIFT is Present. Performed By: #### L 501.9985, L502.0250, L501.0900, L500.4100, L506.1001, L501.5101, L100.0100, L500.4050 #### [facility] [address] [place], [address] Lymphocytes/100 WBC (Bld) 12.7 % Low 19-41 [facility] Comment on above: Performed By: #### L 501.9985, L502.0250, L501.0900, L500.4100, L506.1001, L501.5101, L100.0100, L500.4050 #### [facility] [address] [place], [address] MCH (RBC) [Entitic mass] 32.3 pg High 27.0-32.0 [facility] Comment on above: Performed By: #### L 501.9985, L502.0250, L501.0900, L500.4100, L506.1001, L501.5101, L100.0100, L500.4050 #### [facility] [address] [place], [address] MCHC (RBC) [Mass/Vol] 33.6 g/dL Normal 32-36 [facility] Comment on above: Performed By: #### L 501.9985, L502.0250, L501.0900, L500.4100, L506.1001, L501.5101, L100.0100, L500.4050 #### [facility] [address] [place], [address] MCV (RBC) [Entitic vol] 96.2 fL High 80-94 [facility] Comment on above: Performed By: #### L 501.9985, L502.0250, L501.0900, L500.4100, L506.1001, L501.5101, L100.0100, L500.4050 #### [facility] [address] [place], [address] Monocytes/100 WBC (Bld) 7.5 % Normal 0-10 [facility] Comment on above: Performed By: #### L 501.9985, L502.0250, L501.0900, L500.4100, L506.1001, L501.5101, L100.0100, L500.4050 #### [facility] [address] [place], [address] Neutrophils/100 WBC (Bld) 76.9 % High 47-70 [facility] Comment on above: Performed By: #### L 501.9985, L502.0250, L501.0900, L500.4100, L506.1001, L501.5101, L100.0100, L500.4050 #### [facility] [address] [place], [address] Nucleated RBC (Bld) [#/Vol] 0 10*3/uL Normal 0-5 [facility] Comment on above: Performed By: #### L 501.9985, L502.0250, L501.0900, L500.4100, L506.1001, L501.5101, L100.0100, L500.4050 #### [facility] [address] [place], [address] Platelet mean volume (Bld) [Entitic vol] 9.8 fL Normal 6.2-12.0 [facility] Comment on above: Performed By: #### L 501.9985, L502.0250, L501.0900, L500.4100, L506.1001, L501.5101, L100.0100, L500.4050 #### [facility] [address] [place], [address] Platelets (Bld) [#/Vol] 197 10*3/uL Normal 150-450 [facility] Comment on above: Performed By: #### L 501.9985, L502.0250, L501.0900, L500.4100, L506.1001, L501.5101, L100.0100, L500.4050 #### [facility] [address] [place], [address] RBC (Bld) [#/Vol] 3.99 10*6/uL Low 4.6-6.2 [facility] Comment on above: Performed By: #### L 501.9985, L502.0250, L501.0900, L500.4100, L506.1001, L501.5101, L100.0100, L500.4050 #### [facility] [address] [place], [address] RDW SD 45.5 fl High 35.1-43.9 [facility] Comment on above: Performed By: #### L 501.9985, L502.0250, L501.0900, L500.4100, L506.1001, L501.5101, L100.0100, L500.4050 #### [facility] [address] [place], [address] WBC (Bld) [#/Vol] 8.8 10*3/uL Normal 4.4-11.0 [facility] Comment on above: Performed By: #### L 501.9985, L502.0250, L501.0900, L500.4100, L506.1001, L501.5101, L100.0100, L500.4050 #### [facility] [place], [address] CBC panel Auto (Bld)on 02-20 Erythrocyte distribution width (RBC) [Ratio] 13.1 % 11.5 - 15.0 % [facility] Hematocrit (Bld) [Volume fraction] 36.5 % Low 40.0 - 52.0 % [facility] Hemoglobin (Bld) [Mass/Vol] 12.3 g/dL Low 13.0 - 18.0 g/dL [facility] Interpretation and review of laboratory results Abnormal [facility] MCH (RBC) [Entitic mass] 32.5 pg 26.0 - 34.0 pg [facility] MCHC (RBC) [Mass/Vol] 33.7 % 30.5 - 36.0 % [facility] MCV (RBC) [Entitic vol] 96.6 fL 77.0 - 99.0 fL [facility] Platelet mean volume (Bld) [Entitic vol] 9.9 fL 9.0 - 12.7 fL [facility] Platelets (Bld) [#/Vol] 191 10*3/uL 140 - 440 10*3/uL [facility] RBC (Bld) [#/Vol] 3.78 10*6/uL Low 4.40 - 5.9 0 10*6/uL [facility] WBC (Bld) [#/Vol] 8.8 10*3/uL 3.6 - 10.7 10*3/uL [facility] CT HEAD WO IV CONTRASTon CT HEAD [...] Electronically Signed Date/Time: 02/20/2025 7:21 PM EDT [facility] CT Head WO contraston 2024 No acute intracrania l abnormality. Chronic microvascular change. Sphenoid sinusitis of unknown chronicity. Report Dictated on Electronically Signed By: Kwan Florian MD Electronically Signed Date/Time: 02/20/2025 7:21 PM EDT [facility] [employer] Patient Name: [facility]OUGLAS SIMON [facility] 1955 [id number] Exam Date/Time: 02/20/2025 17:07 Procedure: CT HEAD [...] Signed Date/Time: 02/20/2025 7:21 PM EDT [facility] WO contrastOrdered B y: Kwan Florian on 02-20-2025 [employer] Work Phone: Emergency Department Summary on 02-20-2025 Emergency Department Summary [facility] Medical Records Department [address] [place] [address] Emergency Department Summary 02/20/25 MR#: [id number] Acct: [id number] Name: DOUGLAS CALLAWAY JrJoann Rep #: [id number] : 1955 69 From: Jennifer Solorzano DO PCP: Dr. Iván Case MD Status:DEP ER Location: ED HPI HPI [...] does take aspirin therapy. Tetanus Immunization: Unknown [facility] Medical History Exocrine pancreatic insufficiency Gastritis Bile leak CPAP (continuous positive airway pressure) dependence Acute cholecystitis due to biliary calculus Common bile duct dilatation Irritable bowel Syncope Irregular heartbeat Acute gallstone pancreatitis Wears glasses Cancer Diabetes Gout Hepatitis Gastric reflux Former smoker History of echocardiogram History of stress test Hypertension Cardiology follow-up encounter Gastroparesis Squamous cell carcinoma Atherosclerosis of coronary artery of [place] heart without angina pectoris Hepatitis A Elevated [...] or ur (more content not included)... Normal [facility] - Chemistry and C hemistry - challengeon 02-20-2025 Glucose [Mass/Vol] 116 mg/dL High 70 - 100 mg/dL [facility] Glucose [Mass/Vol] 115 mg/dL High 70 - 100 mg/dL [facility] Microalb:Creat Ratio,Random URon 02-20-2025 MALB:CREAT 2212.4 mg/g CRE Normal [facility] Comment on above: Result Comment: AMENDED REPORT 02/20/25 3950 MALB:CREAT previously reported as: 45429.7 mg/g CRE Performed By: #### L 501.9985, L502.0250, L501.0900, L500.4100, L506.1001, L501.5101, L100.0100, L500.4050 #### [facility] [address] [place], [place], [id number] No Panel Informationon 02-20 Interpretation and review of laboratory results Abnormal [facility] Performed by: [place] [address] CLIA ID: [id number] [facility] Interpretation and review of laboratory results Abnormal [facility] Performed by: [address] [address] CLIA ID: [id number] [facility] Radiology Study observation (narrative) [facility] Partial Thromboplast Timeon 02-20-2025 aPTT Coag (Bld) [Time] 22.1 s Low 24.1-36.2 [facility] Comment on above: Performed By: #### L 501.9985, L502.0250, L501.0900, L500.4100, L506.1001, L501.5101, L100.0100, L500.4050 #### [facility] [address] [place], [place], [address] Prothrombin Time w/INRon INR Coag (PPP) [Relative time] 1.0 {INR} Normal [facility] Comment on above: Performed By: #### L 501.9985, L502.0250, L501.0900, L500.4100, L506.1001, L501.5101, L100.0100, L500.4050 #### [facility] [address] [place], [address] PT Coag (PPP) [Time] 13.3 s Normal 11.7-14.9 [facility] Comment on above: Performed By: #### L 501.9985, L502.0250, L501.0900, L500.4100, L506.1001, L501.5101, L100.0100, L500.4050 #### [facility] [address] [place], [address] Cardiology Visit Reporton Cardiology Visit Report [facility] [address] [place], [place] [address] OFFICE VISIT Date of Service: 02/12/25 MR#: [id number] Acct: [id number] Name: DOUGLAS CALLAWAY Rep #: [id number] : 1955 Provider: NERI bateman Age/Sex: 69/M Location: 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 Accompanied by: Self Is patient [...] the past year?: Yes (several- loses balance) [facility] Medical History (Updated 02/12/25 @ 11:35 by Iván Sexton ACCOUNT STRATEGIST, ACCOUNT STRATEGIST-C) Exocrine pancreatic insufficiency Gastritis Bile leak CPAP (continuous positive airway pressure) dependence Acute cholecystitis due to biliary calculus Common bile duct dilatation Irritable bowel Syncope Irregular heartbeat Acute gallstone pancreatitis Wears glasses Cancer Diabetes Gout Hepatitis Gastric reflux Former smoker History of echocardiogram History of stress test Hypertension Cardiology follow-up encounter Gastroparesis Squamous cell carcinoma Atherosclerosis of coronary artery of seneca heart without angina pectoris Hepatitis A Elevated LFTs Hyperlipidemia Type 2 diabetes mellitus without complication Bipolar II disorder Insomnia Essential hypertension CVA (cerebral vascular accident) (2003) TIA (transient ischemic attack) (2003) Diarrhea Depression GERD (gastroesophageal reflux disease) Sleep apnea Surgical History History of right shoulder replacement History of ERCP History of surgery on arm S/P laparoscopi (more content not included)... Normal [facility] Pulmonary Visit Reporton Pulmonary Visit Report [facility] [place] [address] [place], [place] [address] OFFICE VISIT Date of Service: 02/01/25 MR#: [id number] Acct: [id number] Name: DOUGLAS CALLAWAY Jr. Rep #: [id number] : 1955 Provider: NERI Berger Age/Sex: 69/M Location: [facility] Status: Signed Assessment and Plan Assessment and [...] Additional Comments: This note was generated with [employer] dictation software. 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 Normal [facility] MR/BMS.BPon 12-25-2024 MR/BMS.BP [address], [address] [place] [address] OFFICE VISIT Date of Service: 12/25/24 MR#: [id number] Acct: [id number] Name: DOUGLAS CALLAWAY Rep #: [id number] : 1955 Provider: Dr. Nilay Hamlin se, DO Age/Sex: 69/M Location: [facility] Status: Signed Intake Vital Signs 09/26/24 13:03 [...] you fallen in the past year?: Yes [facility] Medical History Exocrine pancreatic insufficiency Gastritis Bile leak CPAP (continuous positive airway pressure) dependence Acute cholecystitis due to biliary calculus Common bile duct dilatation Irritable bowel Syncope Irregular heartbeat Acute gallstone pancreatitis Wears glasses Cancer Diabetes Gout Hepatitis Gastric reflux Former smoker History of echocardiogram History of stress test Hypertension Cardiology follow-up encounter Gastroparesis Squamous cell carcinoma Atherosclerosis of coronary artery of [place] heart without angina pectoris Hepatitis A Elevated [...] politics and current events. Did go to [place] in November for a of a fr (more content not included)... Normal [facility] L501.5101on 11-27-2024 GGTP 26 IU/L Normal 0-65 [facility] Comment on above: Order Comment: ZULEYMA Whitley ADD GGTP TO BLOOD DRAWN 11/22/24 PER Result Comment: Perf ormed at: - [facility] [address] [place] [id number] Attendant: Alfonzo Martin PhD, Phone: [phone] Performed By: #### L 702.6522, L502.0250, L501.0900, L500.4100, L506.1001, L501.5101, L100.0100, L500.4050 #### [facility] [address] [place], [address] Protein+Creatinine Ratio,Uri neon 11-23-2024 UR CREAT 74.40 mg/dL Normal 39.00-259.0 0 [facility] Comment on above: Performed By: #### L 501.9985, L502.0250, L501.0900, L500.4100, L506.1001, L501.5101, L100.0100, L500.4050 #### [facility] [address] [place], [address] CBC W/Diff, Automatedon 11-04 Absolute Lymph 1.64 X10 3/uL Normal 0.83-4.51 [facility] Comment on above: Performed By: #### L 501.9985, L502.0250, L501.0900, L500.4100, L506.1001, L501.5101, L100.0100, L500.4050 #### [facility] [address] [place], [address] Absolute Neut 4.3 X10 3/uL Normal 2.0-7.7 [facility] Comment on above: Performed By: #### L 501.9985, L502.0250, L501.0900, L500.4100, L506.1001, L501.5101, L100.0100, L500.4050 #### [facility] [address] [place], [address] Basophils/100 WBC (Bld) 0.6 % Normal 0-1 [facility] Comment on above: Performed By: #### L 501.9985, L502.0250, L501.0900, L500.4100, L506.1001, L501.5101, L100.0100, L500.4050 #### [facility] [address] [place], [address] Eosinophils/100 WBC (Bld) 2.1 % Normal 0-5 [facility] Comment on above: Performed By: #### L 501.9985, L502.0250, L501.0900, L500.4100, L506.1001, L501.5101, L100.0100, L500.4050 #### [facility] [address] [place], [address] Erythrocyte distribution width (RBC) [Ratio] 12.7 % Normal 11.6-14.6 [facility] Comment on above: Performed By: #### L 501.9985, L502.0250, L501.0900, L500.4100, L506.1001, L501.5101, L100.0100, L500.4050 #### [facility] [address] [facility] [place], [address] Hematocrit (Bld) [Volume fraction] 40.5 % Normal 40-54 [facility] Comment on above: Performed By: #### L 501.9985, L502.0250, L501.0900, L500.4100, L506.1001, L501.5101, L100.0100, L500.4050 #### [facility] [address] [place], [address] Hemoglobin (Bld) [Mass/Vol] 13.2 g/dL Normal 13.0-16.5 [facility] Comment on above: Performed By: #### L 501.9985, L502.0250, L501.0900, L500.4100, L506.1001, L501.5101, L100.0100, L500.4050 #### [facility] [address] [place], [address] IG% 0.700 Normal 0.0-0.9 [facility] Comment on above: Result Comment: IG% - Immature Granulocytes (promyelocytes, myelocytes and metamyelocytes) > 1% indicates that a LEFT SHIFT is Present. Performed By: #### L 501.9985, L502.0250, L501.0900, L500.4100, L506.1001, L501.5101, L100.0100, L500.4050 #### [facility] [address] [place], [address] Lymphocytes/100 WBC (Bld) 23.0 % Normal 19-41 [facility] Comment on above: Performed By: #### L 501.9985, L502.0250, L501.0900, L500.4100, L506.1001, L501.5101, L100.0100, L500.4050 #### [facility] [address] [facility] [place], [address] MCH (RBC) [Entitic mass] 32.4 pg High 27.0-32.0 [facility] Comment on above: Performed By: #### L 501.9985, L502.0250, L501.0900, L500.4100, L506.1001, L501.5101, L100.0100, L500.4050 #### [facility] [address] [facility] [place], [address] MCHC (RBC) [Mass/Vol] 32.6 g/dL Normal 32-36 [facility] Comment on above: Performed By: #### L 501.9985, L502.0250, L501.0900, L500.4100, L506.1001, L501.5101, L100.0100, L500.4050 #### [facility] [address] [place], [address] MCV (RBC) [Entitic vol] 99.5 fL High 80-94 [facility] Comment on above: Performed By: #### L 501.9985, L502.0250, L501.0900, L500.4100, L506.1001, L501.5101, L100.0100, L500.4050 #### [facility] [address] [place], [address] Monocytes/100 WBC (Bld) 12.6 % High 0-10 [facility] Comment on above: Performed By: #### L 501.9985, L502.0250, L501.0900, L500.4100, L506.1001, L501.5101, L100.0100, L500.4050 #### [facility] [address] [place], [address] Neutrophils/100 WBC (Bld) 61.0 % Normal 47-70 [facility] Comment on above: Performed By: #### L 501.9985, L502.0250, L501.0900, L500.4100, L506.1001, L501.5101, L100.0100, L500.4050 #### [facility] [address] [place], [address] Nucleated RBC (Bld) [#/Vol] 0 10*3/uL Normal 0-5 [facility] Comment on above: Performed By: #### L 501.9985, L502.0250, L501.0900, L500.4100, L506.1001, L501.5101, L100.0100, L500.4050 #### [facility] [address] [place], [address] Platelet mean volume (Bld) [Entitic vol] 10.6 fL Normal 6.2-12.0 [facility] Comment on above: Performed By: #### L 501.9985, L502.0250, L501.0900, L500.4100, L506.1001, L501.5101, L100.0100, L500.4050 #### [facility] [address] [place], [address] Platelets (Bld) [#/Vol] 214 10*3/uL Normal 150-450 [facility] Comment on above: Performed By: #### L 501.9985, L502.0250, L501.0900, L500.4100, L506.1001, L501.5101, L100.0100, L500.4050 #### [facility] [address] [place], [place], [phone] (957) RBC (Bld) [#/Vol] 4.07 10*6/uL Low 4.6-6.2 [facility] Comment on above: Performed By: #### L 501.9985, L502.0250, L501.0900, L500.4100, L506.1001, L501.5101, L100.0100, L500.4050 #### [facility] [address] [place], [place], [phone] (025) RDW SD 46.2 fl High 35.1-43.9 [facility] Comment on above: Performed By: #### L 501.9985, L502.0250, L501.0900, L500.4100, L506.1001, L501.5101, L100.0100, L500.4050 #### [facility] [address] [place], [place], [phone] (703) WBC (Bld) [#/Vol] 7.1 10*3/uL Normal 4.4-11.0 [facility] Comment on above: Performed By: #### L 501.9985, L502.0250, L501.0900, L500.4100, L506.1001, L501.5101, L100.0100, L500.4050 #### [facility] [address] [place], [place], [id number] Comprehensive Metabolic Prof ilon 11-22-2024 Albumin [Mass/Vol] 3.8 g/dL Normal 3.4-4.8 [facility] Comment on above: Performed By: #### L 501.9985, L502.0250, L501.0900, L500.4100, L506.1001, L501.5101, L100.0100, L500.4050 #### [facility] [address] [place], [address] Albumin/Globulin [Mass ratio] 1.5 {ratio} Normal 0.9-2.4 [facility] Comment on above: Performed By: #### L 501.9985, L502.0250, L501.0900, L500.4100, L506.1001, L501.5101, L100.0100, L500.4050 #### [facility] [address] [place], [address] ALK PHOS 193 U/L High 40-129 [facility] Comment on above: Performed By: #### L 501.9985, L502.0250, L501.0900, L500.4100, L506.1001, L501.5101, L100.0100, L500.4050 #### [facility] [address] [place], [address] ALT [Catalytic activity/Vol] 24 U/L Normal <=46 [facility] Comment on above: Performed By: #### L 501.9985, L502.0250, L501.0900, L500.4100, L506.1001, L501.5101, L100.0100, L500.4050 #### [facility] [address] [place], [address] AST [Catalytic activity/Vol] 28 U/L Normal <=37 [facility] Comment on above: Performed By: #### L 501.9985, L502.0250, L501.0900, L500.4100, L506.1001, L501.5101, L100.0100, L500.4050 #### [facility] [address] [place], [address] Bilirubin [Mass/Vol] 0.30 mg/dL Normal 0.00-1.30 [facility] Comment on above: Performed By: #### L 501.9985, L502.0250, L501.0900, L500.4100, L506.1001, L501.5101, L100.0100, L500.4050 #### [facility] [address] [place], [address] BUN/CRE 18.8 RATIO Normal 10-20 [facility] Comment on above: Performed By: #### L 501.9985, L502.0250, L501.0900, L500.4100, L506.1001, L501.5101, L100.0100, L500.4050 #### [facility] [address] [place], [address] Calcium [Mass/Vol] 9.7 mg/dL Normal 7.6-11.0 [facility] Comment on above: Performed By: #### L 501.9985, L502.0250, L501.0900, L500.4100, L506.1001, L501.5101, L100.0100, L500.4050 #### [facility] [address] [place], [address] Chloride [Moles/Vol] 100 mmol/L Normal 98-108 [facility] Comment on above: Performed By: #### L 501.9985, L502.0250, L501.0900, L500.4100, L506.1001, L501.5101, L100.0100, L500.4050 #### [facility] [address] [place], [address] CO2 [Moles/Vol] 22.5 mmol/L Normal 21.0-32.0 [facility] Comment on above: Performed By: #### L 501.9985, L502.0250, L501.0900, L500.4100, L506.1001, L501.5101, L100.0100, L500.4050 #### [facility] [address] [place], [address] Creatinine [Mass/Vol] 1.70 mg/dL High 0.70-1.20 [facility] Comment on above: Performed By: #### L 501.9985, L502.0250, L501.0900, L500.4100, L506.1001, L501.5101, L100.0100, L500.4050 #### [facility] [address] [place], [place], [id number] GAP 16 High 5-15 [facility] Comment on above: Performed By: #### L 501.9985, L502.0250, L501.0900, L500.4100, L506.1001, L501.5101, L100.0100, L500.4050 #### [facility] [address] [place], [place], [phone] GFR/1.73 sq M.predicted among non-blacks MDRD (S/P/Bld) [Vol rate/Area] 43 mL/min/{1.73_m2} Low >60 [facility] Comment on above: Result Comment: mL/m in/1.73m2 CKD-EPI Creatinine Equation (2020) Performed By: #### L 501.9985, L502.0250, L501.0900, L500.4100, L506.1001, L501.5101, L100.0100, L500.4050 #### [facility] [address] [place], [address] Globulin (S) [Mass/Vol] 2.6 g/dL Normal 2.2-4.2 [facility] Comment on above: Performed By: #### L 501.9985, L502.0250, L501.0900, L500.4100, L506.1001, L501.5101, L100.0100, L500.4050 #### [facility] [address] [place], [address] Glucose [Mass/Vol] 110 mg/dL High 70-99 [facility] Comment on above: Performed By: #### L 501.9985, L502.0250, L501.0900, L500.4100, L506.1001, L501.5101, L100.0100, L500.4050 #### [facility] [address] [place], [address] Potassium [Moles/Vol] 4.2 mmol/L Normal 3.3-5.1 [facility] Comment on above: Performed By: #### L 501.9985, L502.0250, L501.0900, L500.4100, L506.1001, L501.5101, L100.0100, L500.4050 #### [facility] [address] [place], [address] Sodium [Moles/Vol] 138 mmol/L Normal 133-145 [facility] Comment on above: Performed By: #### L 501.9985, L502.0250, L501.0900, L500.4100, L506.1001, L501.5101, L100.0100, L500.4050 #### [facility] [address] [place], [address] T PROT 6.4 g/dL Normal 5.9-8.4 [facility] Comment on above: Performed By: #### L 501.9985, L502.0250, L501.0900, L500.4100, L506.1001, L501.5101, L100.0100, L500.4050 #### [facility] [address] [place], [address] Urea nitrogen [Mass/Vol] 32 mg/dL High 4- [facility] Comment on above: Performed By: #### L 501.9985, L502.0250, L501.0900, L500.4100, L506.1001, L501.5101, L100.0100, L500.4050 #### [facility] [address] [place], [address] Hemoglobin A1con 11-22-2024 HbA1c (Bld) [Mass fraction] 5.9 % Normal <=5.6 [facility] Comment on above: Performed By: #### L 501.9985, L502.0250, L501.0900, L500.4100, L506.1001, L501.5101, L100.0100, L500.4050 #### [facility] [address] [place], [address] L506.1001on 11-22-2024 Vitamin D 25-OH 27.3 ng/mL Low 30-100 [facility] Comment on above: Result Comment: Ladi min D Status Deficiency: <20 ng/mL (50nmol/L) Insufficiency: 20-30 ng/mL (50-75 nmol/L) Sufficiency: 30-100 ng/mL (75-250 nmol/L) Toxicity: >100 ng/mL (>250 nmol/L) Performed By: #### L 501.9985, L502.0250, L501.0900, L500.4100, L506.1001, L501.5101, L100.0100, L500.4050 #### [facility] [address] [place], [address] Lipid Profileon 11-22-2024 CHOL:HDL 2.63 Normal [facility] Comment on above: Performed By: #### L 501.9985, L502.0250, L501.0900, L500.4100, L506.1001, L501.5101, L100.0100, L500.4050 #### [facility] [address] [place], [address] Cholesterol [Mass/Vol] 136 mg/dL Normal <=200 [facility] Comment on above: Result Comment: Chol esterol level, Desirable <200 mg/dL Borderline high cholesterol 200-239 mg/dL High cholesterol >=240 mg/dL Recommendations of the NCEP Adult Treatment Panel for the following risk-cutoff thresholds for the [place] population. Performed By: #### L 501.9985, L502.0250, L501.0900, L500.4100, L506.1001, L501.5101, L100.0100, L500.4050 #### [facility] [address] [place], [address] Cholesterol in HDL [Mass/Vol] 52 mg/dL Normal [facility] Comment on above: Result Comment: Yoana onal Cholesterol Education Program (NCEP) guidelines: <40 mg/dL: Low HDL-cholesterol (major risk factor for CHD) >= 60 mg/dL: High HDL-cholesterol (negative risk factor for CHD) HDL-cholesterol is affected by a number of factors, e.g. smoking, exercise, hormones, sex and age. Performed By: #### L 501.9985, L502.0250, L501.0900, L500.4100, L506.1001, L501.5101, L100.0100, L500.4050 #### [facility] [address] [place], [address] Cholesterol in LDL [Mass/Vol] 14 mg/dL Normal [facility] Comment on above: Result Comment: Bord pgakod=434-850 mg/dL Higher Gthq=756 mg/dL or greater Performed By: #### L 501.9985, L502.0250, L501.0900, L500.4100, L506.1001, L501.5101, L100.0100, L500.4050 #### [facility] [address] [place], [address] Cholesterol in VLDL [Mass/Vol] 70 mg/dL High 5-40 [facility] Comment on above: Performed By: #### L 501.9985, L502.0250, L501.0900, L500.4100, L506.1001, L501.5101, L100.0100, L500.4050 #### [facility] [address] [place], [address] Triglyceride [Mass/Vol] 349 mg/dL High [facility] Comment on above: Result Comment: The drugs N-Acetylcysteine and Metamizole may falsely depress this assay. Normal range: <150 mg/dL Borderline High: 150-199 mg/dL High: 200-499 mg/dL Very High: >500 mg/dL Performed By: #### L 501.9985, L502.0250, L501.0900, L500.4100, L506.1001, L501.5101, L100.0100, L500.4050 #### [facility] [address] [place], [address] Pulmonary Visit Reporton Pulmonary Visit Report [facility] [place] [address] [place], [place] [address] OFFICE VISIT Date of Service: 10/26/24 MR#: [id number] Acct: [id number] Name: DOUGLAS CALLAWAY Rep #: [id number] : 1955 Provider: NERI Berger Age/Sex: 69/M Location: [facility] Status: Signed Assessment and Plan Assessment and [...] originally diagnosed with obstructive sleep apnea in [place] approximately 15 years ago. The patient reports that he did utilize his machine for about 5 years. He was initially referred due to very severe snoring. He recalls that he stopped breathing 40 times an hour. He had no difficulty acclimating to machine and used it faithfully. However, when he moved to [place] in about 2011, his thought that the [...] nocturia nightly. 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 He is a former smoker, however he quit smoking over 40 years ago. He was seen by a client development manager and had a pulmonary function test many [...] Reasons: Sleep apnea Chief Complaint: gallstone pancreatitis Fish Rod Maker Required: No Accompanied by: Self Allergies No [...] PO DA (more content not included)... Normal [facility] MR/BMS.BPon 09-26-2024 MR/BMS.BP [facility] [address], [address] [place] [id number] OFFICE VISIT Date of Service: 09/26/24 MR#: [id number] Acct: [id number] Name: DOUGLAS CALLAWAY Jr. Rep #: [id number] : 1955 Provider: Dr. Nilay Hamlin se, DO Age/Sex: 69/M Location: [facility].BP Status: Signed Intake Vital Signs 07/27/24 13:47 [...] cell carcinoma Atherosclerosis of coronary artery of [place] heart without angina pectoris Hepatitis A Elevated [...] use of doxepin. Supposed to meet with client development manager in October for assessment of sleep apnea. Tremor has been largely stable. Not having significant s (more content not included)... Normal [facility] Cardiology Visit Reporton Cardiology Visit Report [facility] [address] [place] [address] OFFICE VISIT Date of Service: 08/14/24 MR#: [id number] Acct: [id number] Name: DOUGLAS CALLAWAY Jr. Rep #: [id number] : 1955 Provider: NERI bateman Age/Sex: 69/M Location: [facility] Status: Signed HPI HPI History of Present [...] NIBP Intake Visit Reasons: 6 M FU Fish Rod Maker Required: No Is patient in pain?: No [...] cell carcinoma Atherosclerosis of coronary artery of [place] heart without angina pectoris Hepatitis A Elevated [...] bypass san (more content not included)... Normal [facility] MR/BMS.BPon 07-27-2024 MR/BMS.BP [address], [address] [place] [address] OFFICE VISIT Date of Service: 07/27/24 MR#: [id number] Acct: [id number] Name: CESIADOUGLAS Jr. Rep #: [id number] : 1955 Provider: Dr. Nilay Hamlin se, DO Age/Sex: 69/M Location: [facility].BP Status: Signed Intake Vital Signs 04/20/24 11:08 [...] cell carcinoma Atherosclerosis of coronary artery of [place] heart without angina pectoris Hepatitis A Elevated [...] without new/different side effects. Recently drove to [place] to see his friend. Denies SI/HI or [...] and oriented (more content not included)... Normal [facility] CBC W/Diff, Automatedon 11-2 0-2023 Absolute Lymph 2.07 X10 3/uL Normal 0.83-4.51 [facility] Comment on above: Performed By: #### L 501.9985, L502.0250, L501.0900, L500.4100, L506.1001, L501.5101, L100.0100, L500.4050 #### [facility] [address] [place], [address] Absolute Neut 8.5 X10 3/uL High 2.0-7.7 [facility] Comment on above: Performed By: #### L 501.9985, L502.0250, L501.0900, L500.4100, L506.1001, L501.5101, L100.0100, L500.4050 #### [facility] [address] [place], [address] Basophils/100 WBC (Bld) 0.6 % Normal 0-1 [facility] Comment on above: Performed By: #### L 501.9985, L502.0250, L501.0900, L500.4100, L506.1001, L501.5101, L100.0100, L500.4050 #### [facility] [address] [place], [address] Eosinophils/100 WBC (Bld) 1.7 % Normal 0-5 [facility] Comment on above: Performed By: #### L 501.9985, L502.0250, L501.0900, L500.4100, L506.1001, L501.5101, L100.0100, L500.4050 #### [facility] [address] [place], [address] Erythrocyte distribution width (RBC) [Ratio] 12.8 % Normal 11.6-14.6 [facility] Comment on above: Performed By: #### L 501.9985, L502.0250, L501.0900, L500.4100, L506.1001, L501.5101, L100.0100, L500.4050 #### [facility] [address] [place], [address] Hematocrit (Bld) [Volume fraction] 44.6 % Normal 40-54 [facility] Comment on above: Performed By: #### L 501.9985, L502.0250, L501.0900, L500.4100, L506.1001, L501.5101, L100.0100, L500.4050 #### [facility] [address] [place], [address] Hemoglobin (Bld) [Mass/Vol] 14.2 g/dL Normal 13.0-16.5 [facility] Comment on above: Performed By: #### L 501.9985, L502.0250, L501.0900, L500.4100, L506.1001, L501.5101, L100.0100, L500.4050 #### [facility] [address] [place], [address] IG% 1.000 High 0.0-0.9 [facility] Comment on above: Result Comment: IG% - Immature Granulocytes (promyelocytes, myelocytes and metamyelocytes) > 1% indicates that a LEFT SHIFT is Present. Performed By: #### L 501.9985, L502.0250, L501.0900, L500.4100, L506.1001, L501.5101, L100.0100, L500.4050 #### [facility] [address] [place], [address] Lymphocytes/100 WBC (Bld) 17.2 % Low 19-41 [facility] Comment on above: Performed By: #### L 501.9985, L502.0250, L501.0900, L500.4100, L506.1001, L501.5101, L100.0100, L500.4050 #### [facility] [address] [place], [address] MCH (RBC) [Entitic mass] 31.8 pg Normal 27.0-32.0 [facility] Comment on above: Performed By: #### L 501.9985, L502.0250, L501.0900, L500.4100, L506.1001, L501.5101, L100.0100, L500.4050 #### [facility] [address] [facility] [place], [address] MCHC (RBC) [Mass/Vol] 31.8 g/dL Low 32-36 [facility] Comment on above: Performed By: #### L 501.9985, L502.0250, L501.0900, L500.4100, L506.1001, L501.5101, L100.0100, L500.4050 #### [facility] [address] [place], [address] MCV (RBC) [Entitic vol] 99.8 fL High 80-94 [facility] Comment on above: Performed By: #### L 501.9985, L502.0250, L501.0900, L500.4100, L506.1001, L501.5101, L100.0100, L500.4050 #### [facility] [address] [place], [address] Monocytes/100 WBC (Bld) 9.1 % Normal 0-10 [facility] Comment on above: Performed By: #### L 501.9985, L502.0250, L501.0900, L500.4100, L506.1001, L501.5101, L100.0100, L500.4050 #### [facility] [address] [place], [address] Neutrophils/100 WBC (Bld) 70.4 % High 47-70 [facility] Comment on above: Performed By: #### L 501.9985, L502.0250, L501.0900, L500.4100, L506.1001, L501.5101, L100.0100, L500.4050 #### [facility] [address] [place], [address] Nucleated RBC (Bld) [#/Vol] 0 10*3/uL Normal 0-5 [facility] Comment on above: Performed By: #### L 501.9985, L502.0250, L501.0900, L500.4100, L506.1001, L501.5101, L100.0100, L500.4050 #### [facility] [address] [place], [address] Platelet mean volume (Bld) [Entitic vol] 10.7 fL Normal 6.2-12.0 [facility] Comment on above: Performed By: #### L 501.9985, L502.0250, L501.0900, L500.4100, L506.1001, L501.5101, L100.0100, L500.4050 #### [facility] [address] [place], [address] Platelets (Bld) [#/Vol] 212 10*3/uL Normal 150-450 [facility] Comment on above: Performed By: #### L 501.9985, L502.0250, L501.0900, L500.4100, L506.1001, L501.5101, L100.0100, L500.4050 #### [facility] [address] [place], [address] RBC (Bld) [#/Vol] 4.47 10*6/uL Low 4.6-6.2 [facility] Comment on above: Performed By: #### L 501.9985, L502.0250, L501.0900, L500.4100, L506.1001, L501.5101, L100.0100, L500.4050 #### [facility] [address] [place], [address] RDW SD 46.1 fl High 35.1-43.9 [facility] Comment on above: Performed By: #### L 501.9985, L502.0250, L501.0900, L500.4100, L506.1001, L501.5101, L100.0100, L500.4050 #### [facility] [address] [place], [address] WBC (Bld) [#/Vol] 12.0 10*3/uL High 4.4-11.0 [facility] Comment on above: Performed By: #### L 501.9985, L502.0250, L501.0900, L500.4100, L506.1001, L501.5101, L100.0100, L500.4050 #### [facility] [address] [place], [address] Comprehensive Metabolic Prof ilon 07-26-2024 Albumin [Mass/Vol] 3.0 g/dL Low 3.2-5.0 [facility] Comment on above: Performed By: #### L 501.9985, L502.0250, L501.0900, L500.4100, L506.1001, L501.5101, L100.0100, L500.4050 #### [facility] [address] [place], [place], [id number] Albumin/Globulin [Mass ratio] 0.9 {ratio} Normal 0.9-2.4 [facility] Comment on above: Performed By: #### L 501.9985, L502.0250, L501.0900, L500.4100, L506.1001, L501.5101, L100.0100, L500.4050 #### [facility] [address] [place], [address] ALK P 141 U/L High 45-117 [facility] Comment on above: Performed By: #### L 501.9985, L502.0250, L501.0900, L500.4100, L506.1001, L501.5101, L100.0100, L500.4050 #### [facility] [address] [place], [place], [id number] ALT [Catalytic activity/Vol] 50 U/L Normal 16-61 [facility] Comment on above: Performed By: #### L 501.9985, L502.0250, L501.0900, L500.4100, L506.1001, L501.5101, L100.0100, L500.4050 #### [facility] [address] [place], [address] AST [Catalytic activity/Vol] 42 U/L High 15-37 [facility] Comment on above: Performed By: #### L 501.9985, L502.0250, L501.0900, L500.4100, L506.1001, L501.5101, L100.0100, L500.4050 #### [facility] [address] [place], [address] Bilirubin [Mass/Vol] 0.40 mg/dL Normal 0.20-1.00 [facility] Comment on above: Result Comment: For patients on eltrombopag therapy, use of Dimension [place] TBIL is not recommended. Performed By: #### L 501.9985, L502.0250, L501.0900, L500.4100, L506.1001, L501.5101, L100.0100, L500.4050 #### [facility] [address] [place], [address] BUN/CRE 19.2 RATIO Normal 10-20 [facility] Comment on above: Performed By: #### L 501.9985, L502.0250, L501.0900, L500.4100, L506.1001, L501.5101, L100.0100, L500.4050 #### [facility] [address] [place], [address] CA,Total 10.2 mg/dL High 8.5-10.1 [facility] Comment on above: Performed By: #### L 501.9985, L502.0250, L501.0900, L500.4100, L506.1001, L501.5101, L100.0100, L500.4050 #### [facility] [address] [place], [address] Chloride [Moles/Vol] 106 mmol/L Normal 98-107 [facility] Comment on above: Performed By: #### L 501.9985, L502.0250, L501.0900, L500.4100, L506.1001, L501.5101, L100.0100, L500.4050 #### [facility] [address] [place], [address] CO2 [Moles/Vol] 26.0 mmol/L Normal 21.0-32.0 [facility] Comment on above: Performed By: #### L 501.9985, L502.0250, L501.0900, L500.4100, L506.1001, L501.5101, L100.0100, L500.4050 #### [facility] [address] [place], [address] Creatinine [Mass/Vol] 1.51 mg/dL High 0.70-1.30 [facility] Comment on above: Result Comment: The validity of the calculated GFR GFRAA in patients over 70 years has not been determined. Clinical correlation is essential. Performed By: #### L 501.9985, L502.0250, L501.0900, L500.4100, L506.1001, L501.5101, L100.0100, L500.4050 #### [facility] [address] [place], [address] EST GFR - AA 59 mL/min Low >60 [facility] Comment on above: Result Comment: Afri can Palauan GFR Calc Performed By: #### L 501.9985, L502.0250, L501.0900, L500.4100, L506.1001, L501.5101, L100.0100, L500.4050 #### [facility] [address] [place], [address] GAP 8 Normal 5-15 [facility] Comment on above: Performed By: #### L 501.9985, L502.0250, L501.0900, L500.4100, L506.1001, L501.5101, L100.0100, L500.4050 #### [facility] [address] [place], [address] GFR/1.73 sq M.predicted among non-blacks MDRD (S/P/Bld) [Vol rate/Area] 49 mL/min/{1.73_m2} Low >60 [facility] Comment on above: Result Comment: Non- GFR Calc Performed By: #### L 501.9985, L502.0250, L501.0900, L500.4100, L506.1001, L501.5101, L100.0100, L500.4050 #### [facility] [address] [place], [address] Globulin (S) [Mass/Vol] 3.4 g/dL Normal 2.2-4.2 [facility] Comment on above: Performed By: #### L 501.9985, L502.0250, L501.0900, L500.4100, L506.1001, L501.5101, L100.0100, L500.4050 #### [facility] [address] [place], [address] Glucose [Mass/Vol] 121 mg/dL High 74-106 [facility] Comment on above: Result Comment: Fast ing Glucose result from 100 to 125 mg/dL suggests IMPAIRED HOMEOSTASIS per A.D.A. criteria. Performed By: #### L 501.9985, L502.0250, L501.0900, L500.4100, L506.1001, L501.5101, L100.0100, L500.4050 #### [facility] [address] [place], [address] Potassium [Moles/Vol] 4.2 mmol/L Normal 3.5-5.1 [facility] Comment on above: Performed By: #### L 501.9985, L502.0250, L501.0900, L500.4100, L506.1001, L501.5101, L100.0100, L500.4050 #### [facility] [address] [place], [address] Sodium [Moles/Vol] 140 mmol/L Normal 136-145 [facility] Comment on above: Performed By: #### L 501.9985, L502.0250, L501.0900, L500.4100, L506.1001, L501.5101, L100.0100, L500.4050 #### [facility] [address] [place], [address] T PROT 6.4 g/dL Normal 6.4-8.2 [facility] Comment on above: Performed By: #### L 501.9985, L502.0250, L501.0900, L500.4100, L506.1001, L501.5101, L100.0100, L500.4050 #### [facility] [address] [place], [address] Urea nitrogen [Mass/Vol] 29 mg/dL High 7-18 [facility] Comment on above: Performed By: #### L 501.9985, L502.0250, L501.0900, L500.4100, L506.1001, L501.5101, L100.0100, L500.4050 #### [facility] [address] [place], [address] Hemoglobin A1con 07-26-2024 HbA1c (Bld) [Mass fraction] 5.9 % High 3.8-5.6 [facility] Comment on above: Result Comment: Norm al < 5.7 % Prediabetic 5.7 - 6.4 % Diabetic >or= 6.5 % Please note range changes. Performed By: #### L 501.9985, L502.0250, L501.0900, L500.4100, L506.1001, L501.5101, L100.0100, L500.4050 #### [facility] [address] [place], [address] Lipid Profileon 07-26-2024 Cholesterol [Mass/Vol] 118 mg/dL Normal 200 [facility] Comment on above: Result Comment: <200 mg/dL Desirable 200-240 mg/dL Borderline >240 mg/dL High Risk Performed By: #### L 501.9985, L502.0250, L501.0900, L500.4100, L506.1001, L501.5101, L100.0100, L500.4050 #### [facility] [address] [place], [address] Cholesterol in HDL [Mass/Vol] 57 mg/dL Normal [facility] Comment on above: Result Comment: The drugs N-Acetylcysteine and Metamizole may falsely depress this assay. Reference Range HDL <40 mg/dL Low HDL Cholesterol HDL >or= 60 mg/dL High HDL Cholesterol Performed By: #### L 501.9985, L502.0250, L501.0900, L500.4100, L506.1001, L501.5101, L100.0100, L500.4050 #### [facility] [address] [place], [address] Cholesterol in LDL [Mass/Vol] 24 mg/dL Normal 0-130 [facility] Comment on above: Performed By: #### L 501.9985, L502.0250, L501.0900, L500.4100, L506.1001, L501.5101, L100.0100, L500.4050 #### [facility] [address] [place], [address] Cholesterol in VLDL [Mass/Vol] 37 mg/dL Normal 5-40 [facility] Comment on above: Performed By: #### L 501.9985, L502.0250, L501.0900, L500.4100, L506.1001, L501.5101, L100.0100, L500.4050 #### [facility] [address] [place], [place], [id number] Triglyceride [Mass/Vol] 186 mg/dL Normal [facility] Comment on above: Result Comment: The drugs N-Acetylcysteine and Metamizole may falsely depress this assay. Serum Triglycerides Reference Interval Normal <150 mg/dL Borderline high 150 - 199 mg/dL High 200 - 499 mg/dL Very High > or = 500 mg/dL Performed By: #### L 501.9985, L502.0250, L501.0900, L500.4100, L506.1001, L501.5101, L100.0100, L500.4050 #### [facility] [address] [place], [address] T4 Free Directon 07-26-2024 T4 FREE DIRECT 0.79 ng/dL Normal 0.76-1.46 [facility] Comment on above: Performed By: #### L 501.9985, L502.0250, L501.0900, L500.4100, L506.1001, L501.5101, L100.0100, L500.4050 #### [facility] [address] [place], [place], [id number] Thyroid Stim Hormone (TSH)on 07-26-2024 TSH 4.550 uIU/mL High 0.358-3.740 [facility] Comment on above: Performed By: #### L 501.9985, L502.0250, L501.0900, L500.4100, L506.1001, L501.5101, L100.0100, L500.4050 #### [facility] [address] [place], [address] Vitamin B12on 07-26-2024 Cobalamin (Vitamin B12) [Mass/Vol] 436 pg/mL Normal 211-911 [facility] Comment on above: Performed By: #### L 501.9985, L502.0250, L501.0900, L500.4100, L506.1001, L501.5101, L100.0100, L500.4050 #### [facility] [address] [facility] [place], [address] Vitamin D,25 Hydroxyon 07-26 Vitamin D 25-OH 27.1 ng/mL Normal [facility] Comment on above: Result Comment: Ladi min D 25(OH) Status Range Deficiency <20 ng/mL (50nmol/L) Insufficiency 20 - 30 ng/mL (50 - 75 nmol/L) Sufficiency 30 - 100 ng/mL (75 - 250 nmol/L) Toxicity >100 ng/mL (>250 nmol/L) Performed By: #### L 501.9985, L502.0250, L501.0900, L500.4100, L506.1001, L501.5101, L100.0100, L500.4050 #### [facility] [address] [facility] [place], [place], [address] MR/BMS.BPon 04-20-2024 MR/BMS.BP [address], [address] [address] OFFICE VISIT Date of Service: 04/20/24 MR#: [id number] Acct: [id number] Name: CESIADOUGLAS Jr. Rep #: [id number] : 1955 Provider: Dr. Nilay Hamlin se DO Age/Sex: 69/M Location: [facility].BP Status: Signed Intake Vital Signs 01/19/24 11:07 [...] BP Intake Visit Reasons: 3 M FU [employer] Required: No Accompanied by: Self Is patient [...] to the office today for follow up. [facility] Medical History Exocrine pancreatic insufficiency Gastritis Bile leak CPAP (continuous positive airway pressure) dependence Acute cholecystitis due to biliary calculus Common bile duct dilatation Irritable bowel Syncope Irregular heartbeat Acute gallstone pancreatitis Wears glasses Cancer Diabetes Gout Hepatitis Gastric reflux Former smoker History of echocardiogram History of stress test Hypertension Cardiology follow-up encounter Gastroparesis Squamous cell carcinoma Atherosclerosis of coronary artery of [place] heart without angina pectoris Hepatitis A Elevated [...] doing good. This last weekend went to [place] to see some old friends. Physically has [...] Son does (more content not included)... Normal [facility] CBC W/Diff, Automatedon 07-2 -2023 Absolute Lymph 1.71 X10 3/uL Normal 0.83-4.51 [facility] Comment on above: Performed By: #### L 506.1000, L503.6550, L100.0100, L500.4050, L500.4100, L503.6030, L501.9985, L502.0250, L400.0001 #### [facility] [address] [facility] [place], [address] Absolute Neut 6.6 X10 3/uL Normal 2.0-7.7 [facility] Comment on above: Performed By: #### L 506.1000, L503.6550, L100.0100, L500.4050, L500.4100, L503.6030, L501.9985, L502.0250, L400.0001 #### [facility] [address] [facility] [place], [address] Basophils/100 WBC (Bld) 0.3 % Normal 0-1 [facility] Comment on above: Performed By: #### L 506.1000, L503.6550, L100.0100, L500.4050, L500.4100, L503.6030, L501.9985, L502.0250, L400.0001 #### [facility] [address] [facility] [place], [address] Eosinophils/100 WBC (Bld) 2.1 % Normal 0-5 [facility] Comment on above: Performed By: #### L 506.1000, L503.6550, L100.0100, L500.4050, L500.4100, L503.6030, L501.9985, L502.0250, L400.0001 #### [facility] [address] [facility] [place], [address] Erythrocyte distribution width (RBC) [Ratio] 13.0 % Normal 11.6-14.6 [facility] Comment on above: Performed By: #### L 506.1000, L503.6550, L100.0100, L500.4050, L500.4100, L503.6030, L501.9985, L502.0250, L400.0001 #### [facility] [address] [place], [address] Hematocrit (Bld) [Volume fraction] 47.4 % Normal 40-54 [facility] Comment on above: Performed By: #### L 506.1000, L503.6550, L100.0100, L500.4050, L500.4100, L503.6030, L501.9985, L502.0250, L400.0001 #### [facility] [address] [place], [address] Hemoglobin (Bld) [Mass/Vol] 15.1 g/dL Normal 13.0-16.5 [facility] Comment on above: Performed By: #### L 506.1000, L503.6550, L100.0100, L500.4050, L500.4100, L503.6030, L501.9985, L502.0250, L400.0001 #### [facility] [address] [place], [address] IG% 0.700 Normal 0.0-0.9 [facility] Comment on above: Result Comment: IG% - Immature Granulocytes (promyelocytes, myelocytes and metamyelocytes) > 1% indicates that a LEFT SHIFT is Present. Performed By: #### L 506.1000, L503.6550, L100.0100, L500.4050, L500.4100, L503.6030, L501.9985, L502.0250, L400.0001 #### [facility] [address] [place], [address] Lymphocytes/100 WBC (Bld) 18.2 % Low 19-41 [facility] Comment on above: Performed By: #### L 506.1000, L503.6550, L100.0100, L500.4050, L500.4100, L503.6030, L501.9985, L502.0250, L400.0001 #### [facility] [address] [place], [address] MCH (RBC) [Entitic mass] 31.7 pg Normal 27.0-32.0 [facility] Comment on above: Performed By: #### L 506.1000, L503.6550, L100.0100, L500.4050, L500.4100, L503.6030, L501.9985, L502.0250, L400.0001 #### [facility] [address] [place], [address] MCHC (RBC) [Mass/Vol] 31.9 g/dL Low 32-36 [facility] Comment on above: Performed By: #### L 506.1000, L503.6550, L100.0100, L500.4050, L500.4100, L503.6030, L501.9985, L502.0250, L400.0001 #### [facility] [address] [place], [address] MCV (RBC) [Entitic vol] 99.4 fL High 80-94 [facility] Comment on above: Performed By: #### L 506.1000, L503.6550, L100.0100, L500.4050, L500.4100, L503.6030, L501.9985, L502.0250, L400.0001 #### [facility] [address] [place], [address] Monocytes/100 WBC (Bld) 8.8 % Normal 0-10 [facility] Comment on above: Performed By: #### L 506.1000, L503.6550, L100.0100, L500.4050, L500.4100, L503.6030, L501.9985, L502.0250, L400.0001 #### [facility] [address] [place], [address] Neutrophils/100 WBC (Bld) 69.9 % Normal 47-70 [facility] Comment on above: Performed By: #### L 506.1000, L503.6550, L100.0100, L500.4050, L500.4100, L503.6030, L501.9985, L502.0250, L400.0001 #### [facility] [address] [facility] [place], [address] Nucleated RBC (Bld) [#/Vol] 0 10*3/uL Normal 0-5 [facility] Comment on above: Performed By: #### L 506.1000, L503.6550, L100.0100, L500.4050, L500.4100, L503.6030, L501.9985, L502.0250, L400.0001 #### [facility] [address] [place], [address] Platelet mean volume (Bld) [Entitic vol] 10.6 fL Normal 6.2-12.0 [facility] Comment on above: Performed By: #### L 506.1000, L503.6550, L100.0100, L500.4050, L500.4100, L503.6030, L501.9985, L502.0250, L400.0001 #### [facility] [address] [facility] [place], [address] Platelets (Bld) [#/Vol] 213 10*3/uL Normal 150-450 [facility] Comment on above: Performed By: #### L 506.1000, L503.6550, L100.0100, L500.4050, L500.4100, L503.6030, L501.9985, L502.0250, L400.0001 #### [facility] [address] [facility] [place], [address] RBC (Bld) [#/Vol] 4.77 10*6/uL Normal 4.6-6.2 [facility] Comment on above: Performed By: #### L 506.1000, L503.6550, L100.0100, L500.4050, L500.4100, L503.6030, L501.9985, L502.0250, L400.0001 #### [facility] [address] [place], [place], [phone] (196) RDW SD 47.0 fl High 35.1-43.9 [facility] Comment on above: Performed By: #### L 506.1000, L503.6550, L100.0100, L500.4050, L500.4100, L503.6030, L501.9985, L502.0250, L400.0001 #### [facility] [address] [place], [place], [phone] WBC (Bld) [#/Vol] 9.4 10*3/uL Normal 4.4-11.0 [facility] Comment on above: Performed By: #### L 506.1000, L503.6550, L100.0100, L500.4050, L500.4100, L503.6030, L501.9985, L502.0250, L400.0001 #### [facility] [address] [place], [place], [id number] Comprehensive Metabolic Prof [facility] 03-28-2024 Albumin [Mass/Vol] 3.2 g/dL Normal 3.2-5.0 [facility] Comment on above: Performed By: #### L 501.9985, L502.0250, L501.0900, L500.4100, L506.1001, L501.5101, L100.0100, L500.4050 #### [facility] [address] [place], [place], [phone] Albumin/Globulin [Mass ratio] 0.9 {ratio} Normal 0.9-2.4 [facility] Comment on above: Performed By: #### L 501.9985, L502.0250, L501.0900, L500.4100, L506.1001, L501.5101, L100.0100, L500.4050 #### [facility] [address] [place], [address] ALK P 152 U/L High 45-117 [facility] Comment on above: Performed By: #### L 501.9985, L502.0250, L501.0900, L500.4100, L506.1001, L501.5101, L100.0100, L500.4050 #### [facility] [address] [place], [address] ALT [Catalytic activity/Vol] 46 U/L Normal 16-61 [facility] Comment on above: Performed By: #### L 501.9985, L502.0250, L501.0900, L500.4100, L506.1001, L501.5101, L100.0100, L500.4050 #### [facility] [address] [place], [address] AST [Catalytic activity/Vol] 38 U/L High 15-37 [facility] Comment on above: Performed By: #### L 501.9985, L502.0250, L501.0900, L500.4100, L506.1001, L501.5101, L100.0100, L500.4050 #### [facility] [address] [place], [address] Bilirubin [Mass/Vol] 0.50 mg/dL Normal 0.20-1.00 [facility] Comment on above: Result Comment: For patients on eltrombopag therapy, use of Dimension [place] TBIL is not recommended. Performed By: #### L 501.9985, L502.0250, L501.0900, L500.4100, L506.1001, L501.5101, L100.0100, L500.4050 #### [facility] [address] [place], [address] BUN/CRE 17.1 RATIO Normal 10-20 [facility] Comment on above: Performed By: #### L 501.9985, L502.0250, L501.0900, L500.4100, L506.1001, L501.5101, L100.0100, L500.4050 #### [facility] [address] [place], [address] CA,Total 9.3 mg/dL Normal 8.5-10.1 [facility] Comment on above: Performed By: #### L 501.9985, L502.0250, L501.0900, L500.4100, L506.1001, L501.5101, L100.0100, L500.4050 #### [facility] [address] [place], [address] Chloride [Moles/Vol] 104 mmol/L Normal 98-107 [facility] Comment on above: Performed By: #### L 501.9985, L502.0250, L501.0900, L500.4100, L506.1001, L501.5101, L100.0100, L500.4050 #### [facility] [address] [place], [address] CO2 [Moles/Vol] 25.0 mmol/L Normal 21.0-32.0 [facility] Comment on above: Performed By: #### L 501.9985, L502.0250, L501.0900, L500.4100, L506.1001, L501.5101, L100.0100, L500.4050 #### [facility] [address] [place], [address] Creatinine [Mass/Vol] 1.70 mg/dL High 0.70-1.30 [facility] Comment on above: Result Comment: The validity of the calculated GFR GFRAA in patients over 70 years has not been determined. Clinical correlation is essential. Performed By: #### L 501.9985, L502.0250, L501.0900, L500.4100, L506.1001, L501.5101, L100.0100, L500.4050 #### [facility] [address] [place], [place], [phone] (562) EST GFR - AA 52 mL/min Low >60 [facility] Comment on above: Result Comment: Afri can Palauan GFR Calc Performed By: #### L 501.9985, L502.0250, L501.0900, L500.4100, L506.1001, L501.5101, L100.0100, L500.4050 #### [facility] [address] [place], [place], [phone] GAP 9 Normal 5-15 [facility] Comment on above: Performed By: #### L 501.9985, L502.0250, L501.0900, L500.4100, L506.1001, L501.5101, L100.0100, L500.4050 #### [facility] [address] [place], [place], [phone] (048) GFR/1.73 sq M.predicted among non-blacks MDRD (S/P/Bld) [Vol rate/Area] 43 mL/min/{1.73_m2} Low >60 [facility] Comment on above: Result Comment: Non- GFR Calc Performed By: #### L 501.9985, L502.0250, L501.0900, L500.4100, L506.1001, L501.5101, L100.0100, L500.4050 #### [facility] [address] [place], [place], [phone] (715) Globulin (S) [Mass/Vol] 3.6 g/dL Normal 2.2-4.2 [facility] Comment on above: Performed By: #### L 501.9985, L502.0250, L501.0900, L500.4100, L506.1001, L501.5101, L100.0100, L500.4050 #### [facility] [address] [place], [address] Glucose [Mass/Vol] 140 mg/dL High 74-106 [facility] [facility] Comment on above: Result Comment: Fast ing Glucose result greater than or equal to 126 mg/dL suggests DIABETES MELLITUS per A.D.A. criteria. Performed By: #### L 501.9985, L502.0250, L501.0900, L500.4100, L506.1001, L501.5101, L100.0100, L500.4050 #### [facility] [address] [place], [address] Potassium [Moles/Vol] 4.7 mmol/L Normal 3.5-5.1 [facility] Comment on above: Performed By: #### L 501.9985, L502.0250, L501.0900, L500.4100, L506.1001, L501.5101, L100.0100, L500.4050 #### [facility] [address] [place], [address] Sodium [Moles/Vol] 138 mmol/L Normal 136-145 [facility] Comment on above: Performed By: #### L 501.9985, L502.0250, L501.0900, L500.4100, L506.1001, L501.5101, L100.0100, L500.4050 #### [facility] [address] [place], [address] T PROT 6.8 g/dL Normal 6.4-8.2 [facility] Comment on above: Performed By: #### L 501.9985, L502.0250, L501.0900, L500.4100, L506.1001, L501.5101, L100.0100, L500.4050 #### [facility] [address] [place], [address] Urea nitrogen [Mass/Vol] 29 mg/dL High 7-18 [facility] Comment on above: Performed By: #### L 501.9985, L502.0250, L501.0900, L500.4100, L506.1001, L501.5101, L100.0100, L500.4050 #### [facility] [address] [place], [address] Ferritinon 03-28-2024 Ferritin [Mass/Vol] 46 ng/mL Normal 26-388 [facility] Comment on above: Performed By: #### L 501.9985, L502.0250, L501.0900, L500.4100, L506.1001, L501.5101, L100.0100, L500.4050 #### [facility] [address] [place], [address] Hemoglobin A1con 03-28-2024 HbA1c (Bld) [Mass fraction] 5.6 % Normal 3.8-5.6 [facility] Comment on above: Result Comment: Norm al < 5.7 % Prediabetic 5.7 - 6.4 % Diabetic >or= 6.5 % Please note range changes. Performed By: #### L 501.9985, L502.0250, L501.0900, L500.4100, L506.1001, L501.5101, L100.0100, L500.4050 #### [facility] [address] [place], [address] Iron+Iron Binding Capacityon 03-28-2024 Iron [Mass/Vol] 76 ug/dL Normal 65-175 [facility] Comment on above: Performed By: #### L 501.9985, L502.0250, L501.0900, L500.4100, L506.1001, L501.5101, L100.0100, L500.4050 #### [facility] [address] [place], [address] IRON SATURATION 23.8 Normal 15.0-55.0 [facility] Comment on above: Performed By: #### L 501.9985, L502.0250, L501.0900, L500.4100, L506.1001, L501.5101, L100.0100, L500.4050 #### [facility] [address] [place], [address] TIBC 319 ug/dL Normal 250-450 [facility] Comment on above: Performed By: #### L 501.9985, L502.0250, L501.0900, L500.4100, L506.1001, L501.5101, L100.0100, L500.4050 #### [facility] [address] [place], [address] Lipid Profileon 03-28-2024 Cholesterol [Mass/Vol] 125 mg/dL Normal 200 [facility] Comment on above: Result Comment: <200 mg/dL Desirable 200-240 mg/dL Borderline >240 mg/dL High Risk Performed By: #### L 501.9985, L502.0250, L501.0900, L500.4100, L506.1001, L501.5101, L100.0100, L500.4050 #### [facility] [address] [place], [address] Cholesterol in HDL [Mass/Vol] 56 mg/dL Normal [facility] Comment on above: Result Comment: The drugs N-Acetylcysteine and Metamizole may falsely depress this assay. Reference Range HDL <40 mg/dL Low HDL Cholesterol HDL >or= 60 mg/dL High HDL Cholesterol Performed By: #### L 501.9985, L502.0250, L501.0900, L500.4100, L506.1001, L501.5101, L100.0100, L500.4050 #### [facility] [address] [place], [address] Cholesterol in LDL [Mass/Vol] 39 mg/dL Normal 0-130 [facility] Comment on above: Performed By: #### L 501.9985, L502.0250, L501.0900, L500.4100, L506.1001, L501.5101, L100.0100, L500.4050 #### [facility] [address] [place], [address] Cholesterol in VLDL [Mass/Vol] 30 mg/dL Normal 5-40 [facility] Comment on above: Performed By: #### L 501.9985, L502.0250, L501.0900, L500.4100, L506.1001, L501.5101, L100.0100, L500.4050 #### [facility] [address] [place], [address] Triglyceride [Mass/Vol] 148 mg/dL Normal [facility] Comment on above: Result Comment: The drugs N-Acetylcysteine and Metamizole may falsely depress this assay. Serum Triglycerides Reference Interval Normal <150 mg/dL Borderline high 150 - 199 mg/dL High 200 - 499 mg/dL Very High > or = 500 mg/dL Performed By: #### L 501.9985, L502.0250, L501.0900, L500.4100, L506.1001, L501.5101, L100.0100, L500.4050 #### [facility] [address] [place], [address] Microalb:Creat Ratio,Random URon 03-28-2024 Creatinine [Mass/Vol] 102.00 mg/dL Normal NO RANGE EST. [facility] Comment on above: Performed By: #### L 501.9985, L502.0250, L501.0900, L500.4100, L506.1001, L501.5101, L100.0100, L500.4050 #### [facility] [address] [place], [address] MALB:CRE 2921.6 mg/g CRE High <30 mg/g CRE [facility] Comment on above: Performed By: #### L 501.9985, L502.0250, L501.0900, L500.4100, L506.1001, L501.5101, L100.0100, L500.4050 #### [facility] [address] [place], [address] MICROALBUMIN,UR 2980.0 mg/L Normal NO RANGE EST. [facility] Comment on above: Performed By: #### L 501.9985, L502.0250, L501.0900, L500.4100, L506.1001, L501.5101, L100.0100, L500.4050 #### [facility] [address] [place], [address] Urinalysis, Completeon 03-28 WBC 0-5 SEEN Normal 0-5 [facility] Comment on above: Order Comment: CLEAN CATCH Performed By: #### L 501.9985, L502.0250, L501.0900, L500.4100, L506.1001, L501.5101, L100.0100, L500.4050 #### [facility] [address] [place], [address] BACTERIA 0 SEEN Normal None Seen [facility] Comment on above: Order Comment: CLEAN CATCH Performed By: #### L 501.9985, L502.0250, L501.0900, L500.4100, L506.1001, L501.5101, L100.0100, L500.4050 #### [facility] [address] [place], [address] EPI,SQUAMOUS 0 SEEN Normal 0-5 [facility] Comment on above: Order Comment: CLEAN CATCH Performed By: #### L 501.9985, L502.0250, L501.0900, L500.4100, L506.1001, L501.5101, L100.0100, L500.4050 #### [facility] [address] [place], [address] Mucus Ql (Urine sed) 0 SEEN Normal [facility] Comment on above: Order Comment: CLEAN CATCH Performed By: #### L 501.9985, L502.0250, L501.0900, L500.4100, L506.1001, L501.5101, L100.0100, L500.4050 #### [facility] [address] [place], [address] RBC 0 SEEN Normal 0-5 [facility] Comment on above: Order Comment: CLEAN CATCH Performed By: #### L 501.9985, L502.0250, L501.0900, L500.4100, L506.1001, L501.5101, L100.0100, L500.4050 #### [facility] [address] [place], [place], [address] Vitamin D,25 Hydroxyon 03-28 Vitamin D 25-OH 38.8 ng/mL Normal [facility] Comment on above: Result Comment: Ladi min D 25(OH) Status Range Deficiency <20 ng/mL (50nmol/L) Insufficiency 20 - 30 ng/mL (50 - 75 nmol/L) Sufficiency 30 - 100 ng/mL (75 - 250 nmol/L) Toxicity >100 ng/mL (>250 nmol/L) Performed By: #### L 501.9985, L502.0250, L501.0900, L500.4100, L506.1001, L501.5101, L100.0100, L500.4050 #### [facility] [address] [place], [address] CNTHERAPYon 01-18-2024 CNTHERAPY OT/PT/Speech Visit ( PTMDRG) DOUGLAS CALLAWAY JR ([id number]) 1955 M Date Time Provider Department 01/18/24 4:45 PM KARLA CASTRO PTMDRG Date Time Provider Department [place] 01/18/2024 4:45 PM [id number] CASTROG [facility] Reason for Visit: PT Progress Note [1596] [...] injection (XYLOCAINE) - lactated ringers iv infusion [facility] 01-17-2024 [facility] Office Visit (AGGAST ACC) DOUGLAS CALLAWAY JR ([id number]) 1955 M Date Time Provider Department 01/17/24 [...] ; CABG x 3 EGD 08/2020 at [facility] EGD WITH BIOPSY(S) 05/13/2023 Dr. Fajardo ERCP STENT PLACEMENT BILIARY/PANCREATIC DUCT 09/02/2021 Dr Yarbrough GI TRANSIT AND PRES CARLEY WIRELESS CAPSULE W/INTERP 01/08/2021 Smart Pill-delayed gastric emptying; INCISIONAL BIOPSY SKIN SINGLE LESION biopsy of mass over right eye; benign LAPAROSCOPIC CHOLECYSTECTOMY 09/02/2021 PER ORAL PYLOROMYOTOMY (POP) PROCEDURE (COMP [id number]) 06/11/2021 Dr. Bray REMV CATARACT EXTRACAP,INSERT LENS [...] No Recent (more content not included)... Normal [facility] CNTHERAPYon 01-10-2024 CNTHERAPY OT/PT/Speech Visit ( PTMDRG) ECSIADOUGLAS Brianna YANG ([id number]) 1955 M Date Time Provider Department 01/10/24 11:30 AM MARÍA OROSCO Date Time Provider Department [place] 01/10/2024 11:30 AM [id number] OROSCO [facility] Reason for Visit: Physical Therapy [503] Primary Visit Diagnosis:Diabetes mellitus without complication (HCC) [E11.9] Other Visit Diagnoses:Weakness of both lower extremities [R29.898] Abnormality of gait [R26.9] Imbalance [R26.89] Allergies As of Date: 01/10/2024 (No Known Allergies) Date Reviewed: 12/29/2023 Reviewed by: Lvaonne Nava, RN - Fully Assessed Prescriptions as of 01/10/2024 - dapagliflozin propanediol (FARXIGA) 10 mg tablet Take 1 tablet by mouth every afternoon. - dapagliflozin propanediol (FARXIGA) 10 mg tablet - pantoprazole DR (PROTONIX) 40 mg tablet take 1 tablet by mouth twice a day - qcrwxf-hypchvxs-glozpex (CREON 36) 36,000-114,000- 180,000 unit delayed release capsule Take 2 caps by mouth 3 times daily with meals and 1 cap with each snack. Take 1st cap before meal starts and the 2nd cap chcf through. - primidone (MYSOLINE) 50 mg tablet [...] daily to BE TAKEN ALONG WITH 200 NM... (REFER TO PRESCRIPTION NOTES). - rosuvastatin (CRESTOR) [...] (XYLOCAINE) - lactated ringers iv infusion Normal [facility] CNTHERAPYon 01-06-2024 CNTHERAPY OT/PT/Speech Visit ( PTMDRG) DOUGLAS CALLAWAY JR ([id number]) 1955 M Date Time Provider Department 01/06/24 11:30 AM KARLA CASTRO Date Time Provider Department Center 01/06/2024 11:30 AM [id number] CASTRO PTMSOTERO [facility] Reason for Visit: Physical Therapy [503] Primary [...] tablet by mouth twice a day - ytxknu-bxolqojd-ndkhhbn (CREON 36) 36,000-114,000- 180,000 unit delayed release capsule Take 2 caps by mouth 3 times daily with meals and 1 cap with each snack. Take 1st cap before meal starts and the 2nd cap chcf through. - primidone (MYSOLINE) 50 mg tablet [...] daily to BE TAKEN ALONG WITH 200 NM... (REFER TO PRESCRIPTION NOTES). - rosuvastatin (CRESTOR) [...] injection (XYLOCAINE) - lactated ringers iv infusion [facility] [id number] 01-05-2024 [id number] O ID: [id number] Author: ELBA SAMANIEGO PT, DPT Service: ? Author Type: Physical Therapist Type: [id number] Filed: 01/05/2024 08:21 Note Text: [facility] Physical Therapy Plan of Care Certification Patient Name: Douglas Callaway JR : 1955 [facility] #: [id number] Date: 12/15/2023 To: Sheryl Bassett MD From [...] Patient to be seen for Therapeutic exercise (07980), Neuromuscular re-education (95000), Manual therapy (98978), Therapeutic activities (92514), Self-usp management (01093), Gait Training (77237), Patient/Family/Caregiver Education PLAN FOR NEXT VISIT: 6 min walk test; Check if promis due For further details regarding this patient refer to the Physical Therapy electronically documented visit dated 12/15/2023. Provider Attestation I have reviewed the treatment plan for Douglas Callaway , CCF# [id number] for the period of 12/18/23 -- 02/13/24, established on 12/15/2023. Signature certifies the need for therapy services. [facility] SURGICAL PATHOLOGYOrdered By : Ariane Garrido on 12-31-2023 Case Report Surgical Pathology R eport Case: [id number] Authorizing Provider: Naima Lee MD Collected: 12/29/2023 [...] inflammation F) - Rectum, Polyp, r/o adenoma [facility] Work Phone: FINAL DIAGNOSIS w4tolPVjDDGzzKHaLEMf NVxhbnNp VEPnwOEoE4GqmqpfPYqhPJ3qSX0x mPoxlXQpePInHQFcRdBgw8jzv538 xOYso1orOYULptzvhRt6oQdhS18d u0D3KbgyS23zgFYsLYX6DDMpMLKo bJLaFSMoTZK1OCYvxQGkJ8hkVLYe NX8rzaxoGTkiOIhnRUIceTT1QYFn hTCxZ6PaMQFsMYceLAYhsay5IiJt Mk9xlQMyyRtsUTvtADTkUSFdKLso YVMyHrGcEY8yPGLfEW2gfrAea4Pf D21ui65yUQTblBamYLpcEcsgFwso mCX7JwkvEPXjKTAmSSsbSM40nuFv LjW5kRH2xPMcFRJyIR2deNWifFIu FQMcmiLYEsCnS62rpIslXs18CRtb JWKlfo1wexXuFWooBCZcMZHseJ3m v5e4GOGzlsOfB34xwAhbkV68EFO7 aW6nwMNznRMmy1Fsu3w3pOOgcbKj wBHkcy8diTukAENniGVfYXSub49b hPRuMGLnduEBUsZoIgzyoKHfV96a h18qNEVpw8KfaQvdmXRjEO4Qz8uu yhqqHI73Q90xGVH3tZSsAQ8zZYSm MVttd4A5ySUfDEn1QYZsnIqoscws YFZvGK2pDGG3eRTlwiZjGO9dLX4g Z7Fxn3OliSjnTUFhpAm6sCXimDQd HWRwoaOFEgZjRVSjNF4nrE2kWVMn jJ6vLUNcq4h7cCprRynydXR7OhLP KCPkgYUoYC0ApjOtvFVomDOtj0Mg mUYanMhchmTtXQSen24sRVYqkraf FEJbSW7xUCfnVpWdE08er94iKXPu c1AbdJxwrRZhIV4Jv6qfhaoeMN48 Y00zOTB1pDGcRU1oRLZxTDtsu0M8 sLTtCEd8QWMzzUeltvahUGNuUJ2a XZB1eZSdpdEdKP6lJC4mA6Wel7Bj sRzmYTTagFz3xPEgtSRoVAQqhrJW HqFiReTbvMJbAVDke0a3vHcnPqda cVV7XeabNCTvIGQkBYlyTS31dqGs MdX7uUA6bZTzFUSfYR7opTWxoSLe XHBhclxwYXJ9 [facility] Work Phone: Gross Description s4gpcIQeADGwlSMUFMM7 MYJbSU9o bYwykPu4oGyjBNAopdL0gHEfXNev t6mpWQD7o1sgujLHWqgeCJToLZ4u APwrYQEfDB2kWkRxANLsWjTcZATc hFRqowTeRxKhLEErnQWdgAG0IOLn PS0vusroOIduGZleJNGdewA7DYVe mWBbH3YwRWZrUL4fywemPFT8KAKJ WlkgSp4kkTMhhQujNsIaLyOeUFLn HPRyGKKop1cofaVUdwcrxSy9pB7B GRIkD2FgEX5Yx2ifHNTjcDIqOUQ7 XAyyv9fvWHkzFBM7NRSlXHMtUDHy HG7PSvYsGDObIsc0TcB7GtN3CLm4 TBNCNGTeEVQ5HtA5EZGhHZe3QCjo XFxuaCBcXHQgMSBcXGZsIFxcbmN9 m1hyJMCbzGMhGDF5NFslv0riIWre JUK7VTWrHaEhJTZfCZ2LTaZiMMHn Pvh0CxV3NlX7ZRj5QKJEAtZeSuEr SCVyYeA4NgLxJHl4FOs7RWxEZrDp XjgeTHefRBwtFFF5ODQ8FjRhXMGa WjDjEAWrCBRyPNrmdDCaXS9xrKdu NUXeEG6MQZAiOSvgRSHkVsUqOW2l C72ss57nCFMlZP3jpcYes7AdYWJr uLcwJYp1fjHmSEQhqrITHhztYQRd LV4LKYUbRQlqNLc5ntRaTLMfBvOb EBFtN28eb5YQn2TdTJ9TZNg2pgCd joJNThchvfLyAJEfT2DmkzKlFQpl CUZven2xhYjcTUTsGWVyfGn3tWKb RATiQMumCI91vjUtHgL4EE3neS4x vMFnlSPtsNkwp6CnVGObcwsbxqaj xT8ah8w9VTHmlx6gIQVoQeD4VNXx MXO5OQZkAIGtuKB5ceHyWsWviVJw AiGwdTTyScQyK67vJM8jEAO3DRbu ryBrkgGscg10KSJzSQNfXRHecE7t nvGzCpQjUCCpN6Mgb08wZGJuMDEg o0OyGM0mNDuxBOyqrpswarNduBOc kE8hkeVuQUTeFGWjd5NgjJUoZaUM dQIov01jcQcwjdMknIVgpI8icpMk JMLnBO4hvVZnDSK4vK4dWGNhTQJf zXLxbApvo0VhhEs4rOUlCNajGIZj fs9ixDcwOEoiGPSqdfWcRMDop4Oy yUQelk4guSLtDU7HDVBltzMYJeon JNLwIPQjkJKBg6IwKPAPFemyeRao CtXmrYQbUeB6XLMdoZYuJOK9TW3p oLucKECaBIn1DUedJFFaB3TdX3Ke XFxzZyBcXGlkIDUxMDAyIFxcZGIg M0DOZHHfWoJ6CZddTsuvAHp2DSi2 SZ1XOgZqSKL1YGAnBhOqToEfAXj7 ESyvGQ4ERMOlPhDzUJM3OkmiDFO8 YMm9VKksiEAqQBbpf2HkHzAyZADm MLygjyH3UIEtjqFcw6QeHUMhEKHo F7lsZdSxCHFOOvssopBpHDVmUMIr IGxkOIZnk9RgSASGXQIqmI3wgNFQ vTO2gMpnZxwisXN8UJFhbeHQPtbt XZZgEG5FYCXyDRlsEMy7yeGbERHu HfMjFDLaZ58dz7HNy0OoLQ4CRIo0 laQgdijwDcYfDRFyvDNDn3SrZVxs YCTpVIIdgQSGp1OcECVGQipthsNc BUKuL6UuenDlGGpaJTQbky8vyYol GQUpTRJniFm4nNHxPSIcfIFsPKFr y5EwoBXzVFJvb2T3PJDoi0E5WWDj A0qaHSkpiAywDhL1xpPfHfqlwEHf InIblXKaJyWqA62pSDJqsPXsoQql s0LfcHh5rQRuCNgqFD2yYNGlPLVu IYN9YC6GRchubQufGyXhhSGfRyD3 GNLzeKRcCRW7EE7vkUjaTQVaGYi2 RJyzYGGjG2AzI9RbXRkpJlXoSNhe ZYWhYVWcPCjsLOAlR1THJDRwEeI3 CNznIxxmMMw7PHg6JW5ZGpFnNBF8 AYGuPiOsAEBfYGi9QHxbXX3MCXId RaFnDTX5AHe0HPX3UBw9QZgysGXo LFpyx1QfYcQlOFTyWUqdjgW8JLLm maZlx2BkQEFzOYLwZ7raGlQtGRIB BmqyqmJzCTSbGANteA6kPESBkJww bFmsMztzvCV6NMZvpjRMLmccUUWe OI4EIIWlDTupJMa9niNxZIOnViAc IDSfQ88yq5NRz1OwFH0IUWc9tnNy vylbUjFkAMRatSYUb9ZrDDssXLCd IGZtaGXSk2YwYVGDTythsxAmMKLz A7NwadOcGIinEVKbab8mdLgvRLOz ISJlcOj9oOSpLVJbcRCoYTNbi9Lw eVCoSCYzi6A0UFGcm0J6XFGsQ7aq NMaltQbeZpH9fhCnZtzbtHDmAoAt iDLkSyNfF37oWSIbtUSglXypg6If zRj2aQPiASamAZ3pZUMiWNMgTJQ6 IE7FAnbkvMgmZxEatCAlCgO7OAAd hPAaSUB2XT8qsCkkCLFzITw0LLhl ADKmU4RpA2CwTOciYiIeQZxlOIQb RTWiCDewAZFtM6TCIMCzGqY5SZks UbjwVSs6ADr2OQ4TLkOmBWJ4ZPEe SGT4OLQcKLy6WTljEV2KLBPfFdYv RLA0LMEkBHL7EYp9SVoiuFXmGEom z4HnIzMxPOVjUBwitgB1CQBlumQn f9WgHPFvXHZnL7xnXwSeNZBWOtwx fuDwYBOzTEMrhM6pVYLVn5VquxIv pxmvAF1kuQKrkSPfWT6KEUEawcWy JMxkcNqobA9ydMSrH7raOdBwFadk cGljTmVzdERvYzEgDQpcbHRycGFy NARhXcYzGNGaF8dhTjQwTEBlSvJx NKUgD4hoTKBsSH0RCEFfPtVcHtWi ISj3JEYctA0zZi0qeVXrhS6oUKDa EHN2gsLwxVOnLXAxv1SyiOWzRHSc f2Q0YTZpf9F6IMXyW1ewOEpcoFaa VgR5qnRwToPtyDDwMlGgfAWcCuCf X58qKTNwvZLeqBccl7SjuDi5vEQd NBbhQY9zJASoJXIdEHC2OY1GWfpx eOefRqCnaISsScU9HPVewIFsKTY2 WY3uvMihLZNyXWi0TVslVEObI2Of U2EqYSzqIzOyXTzzPKEmZBHlLWmv KLWjU4GDRFTzToD6DPszMcwoJOw3 HQp9VT8KIhDuUKV2VLCyTRlwUpKd BLt2QUqnGA1GULTrErVnHZL2GUJ4 LYA4DEs1ZMtvrVCmFTcpb6TfSoMs XLDvRUitjyD9NYSvflVec6CvAXGa OIVfQ9edIsJxMIIDAshhohVqIMHn QFIfuU7pQSPNZAV2YYTReU3si1mt vQBaIL1JULMletVaDDajlVmebF7w zNUoH5sgOtJiQkdseRnpLiZvpNTs YzEgDQpcbHRycGFyXHNiMzBcZXBp M9coYdCfHIBfQjKqPCYqZ5clGZVj UT4XOZRrSgHuAaVzDDh9QKPvbF8h Mv4bcDYjtO0qOLOyLTI7csRbwJVq PLZnb4UmwVXnJTOti1T8YGTjk4N2 TUCyU7fzTVdzeVgnXnY4inAzHnge vQToByQcaPAgZrDxF59xIFRkfAAd kAdue1XtkIg0kWGbDWtjLJ3kKJFa IAMgYFB6EL4XIglsoRhhXgVcbGNx IrL9OUPlhILlEXM8OG3riRjvZMWy MFa5GSnqKNNaH0SiW1YxZTslJkDd OOrfPUOrFMTwANmsWPCoO9ELYEAc PiU1DFjsElrnWXz9ROh2UG0FGfQy WUW3NCTpRfW7WPXxRHx0VJtuHE0V YFXiShFzUWF1XND1LPJ8SQe9LXtz wHIhBUaty8QsAbHaNJKsFLecebI0 AXKbtiZei0BjLBJiTUHdT3szAkGp EKYYHokhhwGdLFHsBSTeH0V5qLkc LL3afQXsxOFbBM2IDEVtihQoXJfu gXxifJ2syZPuA8ikDfAnFwasyOwh TmVzdERvYzEgDQpcbHRycGFyXHNi SvZzBJAcS6qtQhZhUQ0GZGHyRxAi TzIjLLq8VXFxcN8hGt6hvYVxyG5e RBDoSC22aPEiqMzdWQVzC15gioYu ZZ7tPJBdmxAww1c4gG8cXPF0jMDt iJGqqvViM6kvNoHuwmEfbDjlWJWl q64rVD07JRsgPV39MJlxRF7yYATm LHUnLXErRSO4SPAaIDV6JOAzTNPr aD1pZc6au3PhqAswZWAvVQRao6Lg AY3hETkyGVftibFlJT0dLICvq1Vj eFlqxhRuXGHyDK5pgNUsDcDEfABh sFSyG3ZeBUIwUYBjgYZbckCxjbId NevyCTK5CNRvBFYeNEFeaIRshBSf VHSwTMLioYKrxjNgewBeda03LOMb L7Tdw90pYF6sAW41UIlhvVFogIVg oPN1ANTyzL0cAg5svIRymC0dlZ6c Ikj7VSSjSUPhDLB6ANDdHNLmvmVG HienSFFsCIq3zjMhpaAVAcpjBAAt DQogXHBhciANClxwYXIgDQpTUyBB cHJpbCAyNCwgMjAyNCAxMToxOSBQ JCwhQCLgOUrmnYYrMF5SZ6Hjp9Py RSgfoTrrBVQek73giQLgSd9vvLMm OFE4WIJuPLOvnGZxAZWGiHyllEWz OJo9WFGtKOJfrFuoFGJ0BZ9iIJGv FCUynHCbEGccB6ncLLIkOSEijVTe CK3NMAYwJjHnSUAuG3ufLEQbCK7L IQObmGDFVPY3JB6dRHsaBDRpT3Rp Y8OxzfE4i4bjkMbfe5XdpFZhTR4y nUYnXH6SJCUdxbOlTDutGfBfMqRR Cn0= [facility] Work Phone: Performing Lab x5gmdCWvVMJtqYRdAzLj MDAwXGFu i8yjQHRysHQuYmRpNlJtNqJiIwhm eFEdXMUjDiUhd5kkv385lBBgs7ij TGRiAoY9cPVuKRHoaXUbZ558BBOk WAkev2zud1YcGDPkeMMar7W7INNU koioqTd8rPcdR77gw2X2HaalW7bd JAFiNZUpR9ViUG8sEUWmCdn5ZQH6 PGV9CSHxFGWsY5LoPI7jRCSnmIKm AAr2l1trjHcjUFRlWPX4l1rpNNhg kjMvRV6lwh6xzPr2c1lkxvPqHHUp MSJjiQOVLGQkK7UnxAnkTt1qjVv2 qOtgOjtvXCV8Ahi0KN8yhl06lqz3 wOccGCJtprcbLhQ7XHuwCDVnkbwc LNx6HKzgBMRtiDZ3QVRhvECkX4Ua EQucRL3gmbj2WDM8PSpsRAFfNwW6 AOGhdDRlEQWiaDjoHUjzr041RCV0 HvPfNM1uQ9Xuq0J7wK4jzZBqHHJg lTApTcIwJSUegy3mhWCbZIpec6Xo XQQ1drD0dBMgiOWbRXCpLU26Zcoc z5XmQuveu8WjU01zjVI2TKggq7te FO6vGyP8hwTiLNask2gxsQ6nVxS2 XLimKZ5dTH7zEBErlC4jymotGXIl WsJrpttcWXFfcIuqbpEyVl1rhHkp LLI3MGuiK0rytV1mAuB3HLhcG5ol hE3kNRi9KLbrbXS7FGTmmD0xQA1r ynqlz7xnCOzlRJfqUICjclM0esZa MCTwvWLsV3WwdC9sMAKuSN1ygpoe o3yfCLY6HNhjVJHiSLS0ClChKPYl a8Crjna1OfJld4NzxZBvPIahN24m e654LZVqxkYhU4sbjQVealwshCEx rpsrJZmdhsR9NWKhAPMuPTpoZXFc XGZzMjJcbGFuZzEwMzNcaGljaFxm DNqcPrUdGUKuHXvsT1qsQtPzXnEe OmRJyATztd7bkFcmVPxngKOwkZPx iBR7eO3lVLGrtlConv3pKUJirOCQ fXT6VSgqgoVwZ2hqeuljWPO0PCYf VHT9B1feQIRMccYfPAEbAYTtcDEc EFINLMU4FCD7PMNqNURYRUClLFC7 EUB2KGNhAFPkyAQkXJVqnafnQHCq VVLaTHzeIHNpSNMkDnLinPeoyS2d OxVaMyKnHlsqLZ7xTENfX5rcfKPt EIRpUEMlX8sxXvNavQ7frVxyQIbu ZjJcZnMyMlxsdHJjaCBMYWJvcmF0 d7E3CWyigXPtzdozFFuhopMhNJms qvckQKChFItgJ6ijFkNpAUHknHiq SHvtz7SjMATyLOFcVkHcFYetIOG8 e6E9JUifkVAsneABBoBNRS2hnEBh otxeGQ3XElsaSKH9 [facility] Work Phone: [facility] Work Phone: [phone] 12-29-2023 [id number] HNO ID: [id number] Author: LAVONNE NAVA RN Service: ? Author Type: Registered Nurse Type: [id number] Filed: 12/29/2023 12:22 Note Text: The patient received a copy of Colonoscopy discharge instructions that contain information for how to contact the physician who performed the procedure and when to seek medical care. [facility] ANES POSTPROC EVALon 024 ANES POSTPROC EVAL HNO ID: [id number] Author: TIFFANIE HOPPER APRN.CRNA Service: Anesthesiology Author Type: Nurse [employer]plex Printer Installer Type: Anesthesia Postprocedure Evaluation Filed: 12/29/2023 12:21 [...] December 29, 2023 TIME: 12:21 PM CSN: [id number] [facility] Colonoscopyon 12-29-2023 Colonoscopy [facility] Patient Name: Douglas Callaway Procedure Date: 12/29/2023 11:06 AM Date of : 1955 Admit Type: Outpatient Age: 68 Room: [place] [address] Gender: Male Note Status: Finalized Attending MD: Naima Lee MD, [id number] Procedure: Colonoscopy Indications: Screening in patient at [...] previously scheduled. Procedure Code(s): --- Professional --- 70946, Colonoscopy, flexible; with removal of tumor(s), polyp(s), or other lesion(s) by snare technique 56227, 59, Colonoscopy, flexible; with biopsy, single or multiple CPT copyright 2020 [employer]. All rights reserved. The codes documented in this report are preliminary and upon attorney at law review may be revised to meet current compliance requirements. Attending Participation: I joseph (more content not included)... [facility] Flexible sigmoidoscopy study on 12-29-2023 [facility] Patient Name: Douglas Callaway Procedure Date: 12/29/2023 11:06 AM Date of : 1955 Admit Type: Outpatient Age: 68 Room: [place] [address] Gender: Male Note Status: Finalized Attending MD: Naima Lee MD, [id number] Procedure: Colonoscopy Indications: Screening in patient at [...] in the (more content not included)... PROVATION [facility] Radiology Study observation (narrative) [facility] GLUCOSE, BLOOD (POC)on 12-28 Glucose [Mass/Vol] 138 mg/dL Abnormal 74 - 99 mg/dL [facility] Comment on above: Location:[facility] Your Office [facility] [address] , [place], [place], [address] The Accu-Chek Inform II glucose meter has [...] Interpretation and review of laboratory results Abnormal [facility] HISTORY PHYSICALon HISTORY PHYSICAL HNO ID: [id number] Author: NAIMA LEE MD Service: Gastroenterology Author [...] ; CABG x 3 EGD 08/2020 at [facility] EGD WITH BIOPSY(S) 05/13/2023 Dr. Fajardo ERCP STENT PLACEMENT BILIARY/PANCREATIC DUCT 09/02/2021 Dr Yarbrough GI TRANSIT AND PRES CARLEY WIRELESS CAPSULE W/INTERP 01/08/2021 Smart Pill-delayed gastric emptying; INCISIONAL BIOPSY SKIN SINGLE LESION biopsy of mass over right eye; benign LAPAROSCOPIC CHOLECYSTECTOMY 09/02/2021 PER ORAL PYLOROMYOTOMY (POP) PROCEDURE (COMP 13793) 06/11/2021 Dr. Bray REMV CATARACT EXTRACAP,INSERT LENS Bilateral 2015 SHOULDER SURGERY HX TONSILLECTOMY HX OBJECTIVE: PHYSICAL EXAM: VITALS: There were no vitals taken for this visit. General appearance: AANDOx3 Respiratory: Normal chest expansion. No audible wheezes. CVS: No shortness of breath, no extremity edema. Regular pulse. Plan: OK to proceed with endoscopy. SIGNATURE: Naima Lee MD PATIENT NAME: Douglas Callaway JR [facility] SURGICAL PATHOLOGYon [address] [facility] Comment on above: Order Comment: Speci men Type: TISSUE SPECIMENOrdering Facility: [facility] [facility] Address: [address] [place] [address] Result Comment: Surg ica Pathology Report Case: [id number] Authorizing Provider: Naima Lee MD Collected: 12/29/2023 [...] Polyp, r/o adenoma Performed By: #### S ####[facility] [id number] [address] [place] FINAL DIAGNOSIS Normal [facility] Comment on above: Order Comment: Speci men Type: TISSUE SPECIMENOrdering Facility: [facility] Address: [address] [place] [address] Result Comment: A. T ransverse colon, polyp [...] of tubular adenoma Performed By: #### S ####[facility] [id number] [place] [address] [place] FINAL PERFORMING LAB Normal [facility] Comment on above: Order Comment: Speci men Type: TISSUE SPECIMENOrdering Facility: [facility] Address: [address] [place] [address] Result Comment: Diag nostic interpretation performed at [facility], [address] [place] [address] CLIA# [id number] Blacksmith Hammer Operator: Mitch Lopez M.D. Performed By: #### S ####[facility] [id number] [address] STATES OF [facility] GROSS DESCRIPTION Normal [facility] Comment on above: Order Comment: Speci men Type: TISSUE SPECIMENOrdering Facility: [facility] Address: [address] [place] [address] Result Comment: A. C olon, Transverse, Polyp [...] 2023 11:19 PM Gross examination performed at [facility], [address] [address] Performed By: #### S ####[facility] [id number] [address] [place] [address] [place] CNCOon 12-23-[address] [facility] CNTHERAPYon 12-15-2023 CNTHERAPY OT/PT/Speech Visit ( PTMDRG) DOUGLAS CALLAWAY JR ([id number]) 1955 M Date Time Provider Department 12/15/23 1:30 PM ELBA SAMANIEGO PTMSOTERO Date Time Provider Department Center 12/15/2023 1:30 PM [id number] SAMANIEGO PTMSOTERO [facility] Reason for Visit: PT Progress Note [1596] [...] tablet by mouth twice a day - meqqzf-vsejkwvk-jaykeuu (CREON 36) 36,000-114,000- 180,000 unit delayed release capsule Take 2 caps by mouth 3 times daily with meals and 1 cap with each snack. Take 1st cap before meal starts and the 2nd cap chcf through. - primidone (MYSOLINE) 50 mg tablet [...] daily to BE TAKEN ALONG WITH 200 NM... (REFER TO PRESCRIPTION NOTES). - rosuvastatin (CRESTOR) [...] injection (XYLOCAINE) - lactated ringers iv infusion [facility] PRE-OPon 12-14-2023 [facility] PRE-OP HNO ID: [id number] Author: TIFFANIE HOPPER APRN.CRNA Service: Anesthesiology Author Type: Nurse Simplex Printer Installer Type: Anesthesia Preprocedure Evaluation Filed: 12/29/2023 11:16 [...] and consent discussed: yes. Patient / Responsible Republican agrees to proceed: yes Patient / Surrogate [...] tablet by mouth twice a day - klsnki-xcdsqwab-riejzes (CREON 36) 36,000-114,000- 180,000 unit delayed release capsule Take 2 caps by mouth 3 times daily with meals and 1 cap with each snack. Take 1st cap before meal starts and the 2nd cap chcf through. - primidone (MYSOLINE) 50 mg tablet [...] daily to BE TAKEN ALONG WITH 200 NM... (REFER TO PRESCRIPTION NOTES). - rosuvastatin (CRESTOR) [...] (CRESTOR) 40 (more content not included)... Normal [facility] CNTHERAPYon 04--2024 CNTHERAPY OT/PT/Speech Visit ( PTMDRG) DOUGLAS CALLAWAY JR ([id number]) 1955 M Date Time Provider Department 12/09/23 1:15 PM MARÍA OROSCO PTMDRG Date Time Provider Department [place] 12/09/2023 1:15 PM [id number] OROSCO PTMDRG [facility] Reason for Visit: Physical Therapy [503] Primary [...] tablet by mouth twice a day - wndvyj-ldbyjkhv-wilsdwt (CREON 36) 36,000-114,000- 180,000 unit delayed release capsule Take 2 caps by mouth 3 times daily with meals and 1 cap with each snack. Take 1st cap before meal starts and the 2nd cap chcf through. - primidone (MYSOLINE) 50 mg tablet [...] daily to BE TAKEN ALONG WITH 200 NM... (REFER TO PRESCRIPTION NOTES). - rosuvastatin (CRESTOR) [...] Take 75 mg by mouth twice daily. Work Counselor: Therapy (PT/OT/Speech/Resp) ID: [id number] 12/09/2023 2:01 PM Author: MARÍA OROSCO Signed by MARÍA OROSCO PASS WORKER on 12/09/2023 at 2:01 PM Document text: Program_ID:[id number] Access Code: [email or web address] URL: [email or web address] Date: 12-09-2023 Prepared By: Karla Castro Program Notes Add walking for 20 minutes a day when able Exercises - rent and housing investigator between chairs and working on turning in [...] weekly - 2 sets - 3 reps [facility] THERAPY NTon 12-09-2023 THERAPY NT HNO ID: [id number] Author: MARÍA OROSCO PTA Service: ? Author Type: Bank Messenger Type: Therapy (PT/OT/Speech/Resp) Filed: 12/09/2023 14:01 Note Text: Program_ID:[id number] Access Code: [email or web address] URL: [email or web address] Date: 12-09-2023 Prepared By: Karla Castro Program Notes Add walking for 20 minutes a day when able Exercises - rent and housing investigator between chairs and working on turning in [...] - 2 sets - 3 reps Normal [facility] CNTHERAPYon 11-29-2023 CNTHERAPY OT/PT/Speech Visit ( PTMDRG) DOUGLAS CALLAWAY JR ([id number]) 1955 M Date Time Provider Department 11/29/23 1:00 PM MARÍA OROSCO PTMG Date Time Provider Department Center 11/29/2023 1:00 PM [id number]-LMARÍA OROSCO PTMG [facility] Reason for Visit: Physical Therapy [503] Primary [...] tablet by mouth twice a day - sgohbq-jckzbilw-aprbzxb (CREON 36) 36,000-114,000- 180,000 unit delayed release capsule Take 2 caps by mouth 3 times daily with meals and 1 cap with each snack. Take 1st cap before meal starts and the 2nd cap chcf through. - primidone (MYSOLINE) 50 mg tablet [...] daily to BE TAKEN ALONG WITH 200 NM... (REFER TO PRESCRIPTION NOTES). - rosuvastatin (CRESTOR) [...] Take 75 mg by mouth twice daily. [facility] CNTHERAPYon 11-24-2023 CNTHERAPY OT/PT/Speech Visit ( PTMDRG) DOUGLAS CALLAWAY JR ([id number]) 1955 M Date Time Provider Department 11/24/23 5:00 PM MARÍA OROSCO PTMSOTERO Date Time Provider Department Center 11/24/2023 5:00 PM [id number] OROSCO PTMG [facility] Reason for Visit: Physical Therapy [503] Primary [...] tablet by mouth twice a day - dmmhhw-hzxbhchu-whgsdnt (CREON 36) 36,000-114,000- 180,000 unit delayed release capsule Take 2 caps by mouth 3 times daily with meals and 1 cap with each snack. Take 1st cap before meal starts and the 2nd cap chcf through. - primidone (MYSOLINE) 50 mg tablet [...] daily to BE TAKEN ALONG WITH 200 NM... (REFER TO PRESCRIPTION NOTES). - rosuvastatin (CRESTOR) [...] Take 75 mg by mouth twice daily. [facility] [id number] 11-18-2023 [id number] O ID: [id number] Author: KARLA CASTRO PT, EMELINAT Service: ? Author Type: Physical Therapist Type: [id number] Filed: 11/18/2023 15:53 Note Text: [facility] Physical Therapy Plan of Care Certification Patient Name: Doulgas Callaway JR : 1955 CC #: [id number] Date: 11/18/2023 To: Sheryl Bassett MD From [...] Patient to be seen for Therapeutic exercise (48755), Neuromuscular re-education (32934), Manual therapy (01486), Therapeutic activities (48223), Self-usp management (32798), Gait Training (51814), Patient/Family/Caregiver Education PLAN FOR NEXT VISIT: Work on stair safety, balance. LE strengthening, turning For further details regarding this patient refer to the Physical Therapy electronically documented visit dated 11/18/2023. Provider Attestation I have reviewed the treatment plan for Douglas Callaway JR, CCF# [id number] for the period of 11/07/23 -- 12/18/23, established on 11/18/2023. Signature certifies the need for therapy services. [facility] CNTHERAPYon 11-18-2023 CNTHERAPY OT/PT/Speech Visit ( PTMDRG) DOUGLAS CALLAWAY JR ([id number]) 1955 M Date Time Provider Department 11/18/23 2:00 PM KARLA CASTRO PTMG Date Time Provider Department Center 11/18/2023 2:00 PM [id number] CASTRO PTMDRG [facility] Reason for Visit: PT Progress Note [1596] [...] tablet by mouth twice a day - hpresi-tejwhxbo-fqgtjxe (CREON 36) 36,000-114,000- 180,000 unit delayed release capsule Take 2 caps by mouth 3 times daily with meals and 1 cap with each snack. Take 1st cap before meal starts and the 2nd cap chcf through. - primidone (MYSOLINE) 50 mg tablet [...] daily to BE TAKEN ALONG WITH 200 NM... (REFER TO PRESCRIPTION NOTES). - rosuvastatin (CRESTOR) [...] Take 75 mg by mouth twice daily. [facility] 11-15-2023 [facility] Telephone (AGGASTACC ) DOUGLAS CALLAWAY JR ([id number]) 1955 M Date Time Provider Department 11/15/23 [...] tablet by mouth twice a day - jgfzui-wfwunuup-pbixxrk (CREON 36) 36,000-114,000- 180,000 unit delayed release capsule Take 2 caps by mouth 3 times daily with meals and 1 cap with each snack. Take 1st cap before meal starts and the 2nd cap chcf through. - primidone (MYSOLINE) 50 mg tablet [...] daily to BE TAKEN ALONG WITH 200 NM... (REFER TO PRESCRIPTION NOTES). - rosuvastatin (CRESTOR) [...] Encounter Status:Closed by PRAVIN [facility]JEE [facility] Telephone (AGGASTACC ) DOUGLAS CALLAWAY JR ([id number]) 1955 M Date Time Provider Department 11/11/23 [...] tablet by mouth twice a day - oesmee-mbmwyngb-ibhpjnt (CREON 36) 36,000-114,000- 180,000 unit delayed release capsule Take 2 caps by mouth 3 times daily with meals and 1 cap with each snack. Take 1st cap before meal starts and the 2nd cap chcf through. - primidone (MYSOLINE) 50 mg tablet [...] daily to BE TAKEN ALONG WITH 200 NM... (REFER TO PRESCRIPTION NOTES). - rosuvastatin (CRESTOR) [...] Encounter Status:Closed by PRAVIN MUKHERJEE on 11/11/23 [facility] CNTHERAPYon 11-11-2023 CNTHERAPY OT/PT/Speech Visit ( PTMDRG) DOUGLAS CALLAWAY JR ([id number]) 1955 M Date Time Provider Department 11/11/23 1:15 PM MARÍA OROSCO PTMDRG Date Time Provider Department Center 11/11/2023 1:15 PM [id number]'LEARYMARÍA PTMDRG [facility] Reason for Visit: Physical Therapy [503] Primary [...] tablet by mouth twice a day - fwosve-vsgrzakw-slyvpbk (CREON 36) 36,000-114,000- 180,000 unit delayed release capsule Take 2 caps by mouth 3 times daily with meals and 1 cap with each snack. Take 1st cap before meal starts and the 2nd cap chcf through. - primidone (MYSOLINE) 50 mg tablet [...] daily to BE TAKEN ALONG WITH 200 NM... (REFER TO PRESCRIPTION NOTES). - rosuvastatin (CRESTOR) [...] Take 75 mg by mouth twice daily. [facility] 11-05-2023 CNP Telephone (AGGASTACC ) DOUGLAS CALLAWAY JR ([id number]) 1955 Date Time Provider Department 11/05/23 KARLA SAUER AGGASTACC During your visit today, we recorded the following information about you: Fátima Martinez MA 11/05/2023 3:21 PM Signed The patient called the office stating that the Creon is no longer help. It stop helping on Oct 26. The patient would like to know if there is something else hunter could take. Please advise Fátima Martinez MA [...] type [R19.7] Order(s):COLONOSCOPY DIAGNOSTIC [GI11] Order #: [id number] FUTURE Prescriptions as of 11/11/2023 - pantoprazole DR (PROTONIX) 40 mg tablet take 1 tablet by mouth twice a day - ekvgux-klleijqq-urcxwmx (CREON 36) 36,000-114,000- 180,000 unit delayed release capsule Take 2 caps by mouth 3 times daily with meals and 1 cap with each snack. Take 1st cap before meal starts and the 2nd cap chcf through. - primidone (MYSOLINE) 50 mg tablet [...] daily to BE TAKEN ALONG WITH 200 NM... (REFER TO PRESCRIPTION NOTES). - rosuvastatin (CRESTOR) [...] Status:Closed by PRAVIN MUKHERJEE on 11/08/23 Normal [facility] MRI BRAIN WO IVCONon 024 MRI BRAIN WO IVCON * * *Final Report* * * DATE OF EXAM: Nov 05 2023 1:40PM [facility] 0294 - MRI BRAIN WO [...] veins, and dural venous sinuses are patent. [facility] Trans[facility] Date/Time: Dec 02 2023 2:15P Dictated by : UBCKY HINES MD This examination was interpreted and the report reviewed and electronically signed by: BUCKY HINES MD on Dec 02 2023 2:22PM EST [id number] Normal [facility] CNTHERAPYon 11-03-2023 CNTHERAPY OT/PT/Speech Visit ( PTMDRG) DOUGLAS CALLAWAY JR ([id number]) 1955 M Date Time Provider Department 11/03/23 1:15 PM MARÍA OROSCO PTMG Date Time Provider Department Center 11/03/2023 1:15 PM [id number] OROSCO PTMDRG [facility] Reason for Visit: Physical Therapy [503] Primary [...] tablet by mouth twice a day - fnzuah-iptlyaxw-zigcdlc (CREON 36) 36,000-114,000- 180,000 unit delayed release capsule Take 2 caps by mouth 3 times daily with meals and 1 cap with each snack. Take 1st cap before meal starts and the 2nd cap chcf through. - primidone (MYSOLINE) 50 mg tablet [...] daily to BE TAKEN ALONG WITH 200 NM... (REFER TO PRESCRIPTION NOTES). - rosuvastatin (CRESTOR) [...] Take 75 mg by mouth twice daily. [facility] 11-01-2023 [facility] Telephone (NIQ) DOUGLAS CALLAWAY JR ([id number]) 1955 M Date Time Provider Department 11/01/23 SHERYL BASSETT During your visit today, we recorded the following information about you: Royce Clifton 11/01/2023 3:48 PM Signed Patient scheduled MRI for 12/02/2023, stated he was told that Dr Bassett said she would order medication for the patient to help with nerves during the MRI. Please call patient at [phone] once medication has been ordered. Thank you! Sheryl Bassett MD 11/02/2023 4:16 PM Signed Addended by: SHERYL BASSETT on: 11/02/2023 04:16 PM Modules accepted: Orders Allergies As of Date: 11/01/2023 (No Known Allergies) Date Reviewed: 10/26/2023 Reviewed by: Ross Dimas MA - Fully Assessed Reason for Visit: Patient Question [5612] Primary Visit Diagnosis:Claustrophobia [F40.240] Order(s):diazePAM (VALIUM) 2 [...] tablet by mouth twice a day - selipb-jclujuei-mzirsvq (CREON 36) 36,000-114,000- 180,000 unit delayed release capsule Take 2 caps by mouth 3 times daily with meals and 1 cap with each snack. Take 1st cap before meal starts and the 2nd cap chcf through. - primidone (MYSOLINE) 50 mg tablet [...] daily to BE TAKEN ALONG WITH 200 NM... (REFER TO PRESCRIPTION NOTES). - rosuvastatin (CRESTOR) [...] Encounter Status:Closed by ROYCE CLIFTON on 11/01/23 [facility] CNTHERAPYon 10-28-2023 CNTHERAPY OT/PT/Speech Visit ( PTMDRG) DOUGLAS CALLAWAY JR ([id number]) 1955 M Date Time Provider Department 10/28/23 2:00 PM MARÍA OROSCO PTMDRG Date Time Provider Department [place] 10/28/2023 2:00 PM [id number]-MMARÍA OROSCO PTMDRG [facility] Reason for Visit: Physical Therapy [503] Primary [...] tablet by mouth twice a day - tgbfjl-rwcxcozs-zduzciu (CREON 36) 36,000-114,000- 180,000 unit delayed release capsule Take 2 caps by mouth 3 times daily with meals and 1 cap with each snack. Take 1st cap before meal starts and the 2nd cap chcf through. - primidone (MYSOLINE) 50 mg tablet [...] daily to BE TAKEN ALONG WITH 200 NM... (REFER TO PRESCRIPTION NOTES). - rosuvastatin (CRESTOR) [...] 75 mg by mouth twice daily. Normal [facility] 10-26-2023 [facility] Office Visit (NEURMM ) DOUGLAS CALLAWAY JR ([id number]) 1955 M Date Time Provider Department 10/26/23 [...] 3 Carotid artery occlusion with cerebral infarction ([facility]) pt denies this; CVA was secondary to HTN CVA (cerebral vascular accident) ([facility]) 2003 related to untreated HTN; no residual effects Depression Elevated LFTs Gastroparesis POP procedure 06/11/21 GERD (gastroesophageal reflux disease) Hepatitis A 09/2018 Resolved HTN (hypertension) Hyperlipemia Insomnia CABRERA (obstructive sleep apnea) does not currently have a CPAP Osteoporoses Renal insufficiency TIA (transient ischemic attack) prior to CVA in 2003, none since Type 2 diabetes mellitus ([facility]) 2018 Iván Schinner PCP Current Outpatient Medications Medication Sig Dispense Refill pantoprazole DR (PROTONIX) 40 mg tablet take 1 tablet by mouth twice a day 180 tablet 2 ejoxeg-owqzduhh-nxrwomf (CREON 36) 36,000-114,000- 180,000 unit delayed release capsule Take 2 caps by mouth 3 times daily with meals and 1 cap with each snack. Take 1st cap before meal starts and the 2nd cap chcf through. 240 capsule 5 primidone (MYSOLINE) 50 [...] daily to BE TAKEN ALONG WITH 200 NM... (REFER TO PRESCRIPTION NOTES). lamoTRIgine ER (LAMICTAL [...] ophthalmic soluti (more content not included)... Normal [facility] CNTHERAPYon 10-21-2023 CNTHERAPY OT/PT/Speech Visit ( PTMDRG) DOUGLAS CALLAWAY JR ([id number]) 1955 Date Time Provider Department 10/21/23 10:45 AM KARLA CASTRO PTMG Date Time Provider Department Center 10/21/2023 10:45 AM [id number] CASTRO PTMDRG [facility] Reason for Visit: PT Progress Note [1596] Primary Visit Diagnosis:Diabetes mellitus without complication (HCC) [E11.9] Other Visit Diagnoses:Weakness of both lower extremities [R29.898] Abnormality of gait [R26.9] Imbalance [R26.89] Allergies As of Date: 10/21/2023 (No Known Allergies) Date Reviewed: 10/13/2023 Reviewed by: Jasmin Mendieta MA - Fully Assessed Prescriptions as of 10/21/2023 - ugfcvt-ianbgvkd-ijjbiew (CREON 36) 36,000-114,000- 180,000 unit delayed release capsule Take 2 caps by mouth 3 times daily with meals and 1 cap with each snack. Take 1st cap before meal starts and the 2nd cap chcf through. - primidone (MYSOLINE) 50 mg tablet [...] daily to BE TAKEN ALONG WITH 200 NM... (REFER TO PRESCRIPTION NOTES). - rosuvastatin (CRESTOR) [...] Take 75 mg by mouth twice daily. Work Counselor: Addendum Therapy (PT/OT/Speech/Resp) ID: [id number] 10/21/2023 11:35 AM Author: KARLA CASTRO Signed by KARLA CASTRO PT, DPT on 10/21/2023 at 11:35 AM * * * This document replaces document [id number] * * * Document text: Program_ID:[id number] Access Code: [email or web address] URL: [email or web address] Date: 10-21-2023 Prepared By: Karla Castro Program Notes Add walking for 20 minutes a day when able Exercises - rent and housing investigator between chairs and working on turning in [...] - 1-2 sets - 10 reps Normal [facility] THERAPY NTon 10-21-2023 THERAPY NT HNO ID: [id number] Author: KARLA CASTRO, PT, DPT Service: Physical Therapy Author Type: Physical Therapist Type: Therapy (PT/OT/Speech/Resp) Filed: 10/21/2023 11:32 Note Text: Program_ID:[id number] Access Code: [email or web address] URL: [email or web address] Date: 10-21-2023 Prepared By: Karla Castro Program Notes Exercises - rent and housing investigator between chairs and working on turning in [...] - 3 sets - 10 reps Normal [facility] Calprotectin (Stl) [Mass/Mas s]on 10-18-2023 CALPROTECTIN, FECAL INTERP Elevated Abnormal Normal [facility] Comment on above: Order Comment: Michelle mckeon Type: STOOL SPECIMEN Ordering Facility: [facility] Address: [address] [place] [address] Result Comment: On 2022, [facility] [employer] implemented a new fecal calprotectin method, the DiaSorin Liaison Calprotectin assay. For assistance with interpretation of results in patients undergoing serial monitoring, contact Client Services at [phone] or [phone] to discuss options, preferably within 7 days of issuing this report. Interpretation: <50.0 ug/g: Normal 50.0 ug/g - 120.0 ug/g: Borderline elevated. Re-evaluation in 4-6 weeks is recommended if clinically indicated. >120.0 ug/g: Elevated Performed By: #### 3 8445-3 #### [facility] CLIA [id number] [address] [place] [address] [place] CALPROTECTIN, FECAL QUANTITATIVE 137 ug/g High <50 [facility] Comment on above: Order Comment: Michelle mckeon Type: STOOL SPECIMEN Ordering Facility: [facility] Address: [address] [place] [address] Performed By: #### 3 8445-3 #### [facility] CLIA [id number] [address] [place] [address] [place] CNOVon 10-13-2023 CNOV Office Visit (AGGAST ACC) CESIADOUGLAS CABAN JR ([id number]) 1955 M Date Time Provider Department 10/13/23 [...] ; CABG x 3 EGD 08/2020 [facility] EGD WITH BIOPSY(S) 05/13/2023 Dr. Fajardo ERCP STENT PLACEMENT BILIARY/PANCREATIC DUCT 09/02/2021 Dr Yarbrough GI TRANSIT AND PRES CARLEY WIRELESS CAPSULE W/INTERP 01/08/2021 Smart Pill-delayed gastric emptying; INCISIONAL BIOPSY SKIN SINGLE LESION biopsy of mass over right eye; benign LAPAROSCOPIC CHOLECYSTECTOMY 09/02/2021 PER ORAL PYLOROMYOTOMY (POP) PROCEDURE (COMP [id number]) 06/11/2021 Dr. Bray REMV CATARACT EXTRACAP,INSERT LENS [...] 1 tablet by mouth twice a day vibzvd-sowewstz-nwqannj (CREON 36) 36,000-114,000- 180,000 unit delayed release capsule Take 2 caps by mouth 3 times daily with meals and 1 cap with each snack. Take 1st cap before meal starts and the 2nd cap chcf through. ondansetron (ZOFRAN) 4 mg tablet Take [...] daily to BE TAKEN ALONG WITH 200 NM... (REFER TO PRESCRIPTION NOTES). rosuvastatin (CRESTOR) 10 [...] on 05/13/2023) (more content not included)... Normal [facility] CNTHERAPYon 10-11-2023 CNTHERAPY OT/PT/Speech Visit ( PTMDRG) DOUGLAS CALLAWAY JR ([id number]) 1955 M Date Time Provider Department 10/11/23 3:00 PM MARÍA OROSCO PTMG Date Time Provider Department Center 10/11/2023 3:00 PM [id number] OROSCO PTMDRG [facility] Reason for Visit: Physical Therapy [503] Primary [...] tablet by mouth twice a day - clyvva-ovhtnygm-owvttww (CREON 36) 36,000-114,000- 180,000 unit delayed release capsule Take 2 caps by mouth 3 times daily with meals and 1 cap with each snack. Take 1st cap before meal starts and the 2nd cap chcf through. - ondansetron (ZOFRAN) 4 mg tablet [...] daily to BE TAKEN ALONG WITH 200 NM... (REFER TO PRESCRIPTION NOTES). - rosuvastatin (CRESTOR) [...] Take 75 mg by mouth twice daily. Work Counselor: Therapy (PT/OT/Speech/Resp) ID: [id number] 10/11/2023 3:31 PM Author: MARÍA OROSCO Signed by MARÍA OROSCO PASS WORKER on 10/11/2023 at 3:32 PM Document text: Program_ID:[id number] Access Code: [email or web address] URL: [email or web address] Date: 10-11-2023 Prepared By: Karla Castro Program Notes Exercises - rent and housing investigator between chairs and working on turning in [...] weekly - 2 sets - 10 reps [facility] THERAPY NTon 10-11-2023 THERAPY NT HNO ID: [id number] Author: MARÍA OROSCO PTA Service: ? Author Type: Bank Messenger Type: Therapy (PT/OT/Speech/Resp) Filed: 10/11/2023 15:32 Note Text: Program_ID:[id number] Access Code: [email or web address] URL: [email or web address] Date: 10-11-2023 Prepared By: Karla Castro Program Notes Exercises - rent and housing investigator between chairs and working on turning in [...] weekly - 2 sets - 10 reps [facility] CNTHERAPYon 10-06-2023 CNTHERAPY OT/PT/Speech Visit ( PTMDRG) DOUGLAS CALLAWAY JR ([id number]) 1955 M Date Time Provider Department 10/06/23 3:30 PM MARÍA OROSCO PTMSOTERO Date Time Provider Department Center 10/06/2023 3:30 PM [id number]-SMARÍA OROSCO PTMG [facility] Reason for [...] tablet by mouth twice a day - vjndiv-nrnaidak-xrqsriw (CREON 36) 36,000-114,000- 180,000 unit delayed release capsule Take 2 caps by mouth 3 times daily with meals and 1 cap with each snack. Take 1st cap before meal starts and the 2nd cap chcf through. - ondansetron (ZOFRAN) 4 mg tablet [...] daily to BE TAKEN ALONG WITH 200 NM... (REFER TO PRESCRIPTION NOTES). - rosuvastatin (CRESTOR) [...] Take 75 mg by mouth twice daily. [facility] CNTHERAPYon 09-23-2023 CNTHERAPY OT/PT/Speech Visit ( PTMDRG) DOUGLAS CALLAWAY JR ([id number]) 1955 M Date Time Provider Department 09/23/23 2:45 PM KARLA CASTRO PTMDRG Date Time Provider Department Center 09/23/2023 2:45 PM [id number], [facility] Reason for Visit: PT Progress Note [2096] Primary Visit Diagnosis:Diabetes mellitus without complication (HCC) [...] tablet by mouth twice a day - zapqtk-telcvqio-vlzjomo (CREON 36) 36,000-114,000- 180,000 unit delayed release capsule Take 2 caps by mouth 3 times daily with meals and 1 cap with each snack. Take 1st cap before meal starts and the 2nd cap chcf through. - ondansetron (ZOFRAN) 4 mg tablet [...] daily to BE TAKEN ALONG WITH 200 NM... (REFER TO PRESCRIPTION NOTES). - rosuvastatin (CRESTOR) [...] Take 75 mg by mouth twice daily. [facility] 09-21-2023 [facility] Office Visit (OTOLMM ) CESIADOUGLAS VIVEROS JR ([id number]) 1955 M Date Time Provider Department 09/21/23 [...] PACC clearance and anesthesiology clearance from his technologist infectious disease. Chief Complaint Nasal bone fracture History of [...] ; CABG x 3 EGD 08/2020 at [facility] EGD WITH BIOPSY(S) 05/13/2023 Dr. Fajardo ERCP STENT PLACEMENT BILIARY/PANCREATIC DUCT 09/02/2021 Dr Yarbrough GI TRANSIT AND PRES CARLEY WIRELESS CAPSULE W/INTERP 01/08/2021 Smart Pill-delayed gastric emptying; INCISIONAL BIOPSY SKIN SINGLE LESION biopsy of mass over right eye; benign LAPAROSCOPIC CHOLECYSTECTOMY 09/02/2021 PER ORAL PYLOROMYOTOMY (POP) PROCEDURE (COMP 19790) 06/11/2021 Dr. Bray REMV CATARACT EXTRACAP,INSERT LENS [...] 1 tablet by mouth twice a day xjtssu-iclhxiip-migrmnn (CREON 36) 36,000-114,000- 180,000 unit delayed release capsule Take 2 caps by mouth 3 times daily with meals and 1 cap with each snack. Take 1st cap before meal starts and the 2nd cap chcf through. ondansetron (ZOFRAN) 4 mg tablet Take 1 tablet by mouth once daily as needed for nausea/vomiting (for nausea.). losartan (COZAAR) 50 mg tablet Take 1 tablet by mouth every afternoon. aspirin, enteric coated (JAILENE LOW DOSE ASPIRIN) 81 mg EC tablet Take by mouth. lamoTRIgine (LAMICTAL) 100 mg tablet take 1/2 tablet by mouth once daily to BE TAKEN ALONG WITH 200 NM... (REFER TO PRESCRIPTION NOTES). doxepin capsule 10 [...] 1,000 mg (more content not included)... Normal [facility] ALLIED HEALTHon 09-16-2023 ALLIED HEALTH HNO ID: [id number] Author: KISHOR RODRIGUEZ Tech Service: ? Author Type: Drafter Electrical Type: Allied Health Filed: 09/16/2023 17:27 Note [...] IV DATA: Not applicable SIGNED BY: Bernarda Mreaz September 16, 2023 5:27 PM Normal [facility] CBC W Auto Differential pane l (Bld)on 09-16-2023 Basophils (Bld) [#/Vol] 10*3/uL Normal <0.11 [facility] Comment on above: Order Comment: Speci men Type: BLOOD SPECIMENOrdering Facility: [facility] Address: [address] [place] [address] Performed By: #### 5 7021-8 ####[facility] LABORATORYCLIA [id number] [place] [address] [place] Basophils/100 WBC (Bld) 0.2 % Normal [facility] Comment on above: Order Comment: Speci men Type: BLOOD SPECIMENOrdering Facility: [facility] Address: [address] [place] [address] Performed By: #### 5 7021-8 ####REYNOSO LABORATORYCLIA [id number] [place] [address] [place] Differential cell count method Nom (Bld) Auto Normal [facility] Comment on above: Order Comment: Speci men Type: BLOOD SPECIMENOrdering Facility: [facility] Address: [address] [place] [address] Performed By: #### 5 7021-8 ####REYNOSO LABORATORYCLIA [id number] [place] [address] [place] Eosinophils (Bld) [#/Vol] 0.18 10*3/uL Normal <0.46 [facility] Comment on above: Order Comment: Speci men Type: BLOOD SPECIMENOrdering Facility: [facility] Address: [address] [place] [address] Performed By: #### 5 7021-8 ####REYNOSO LABORATORYCLIA [id number] [address] [place] Eosinophils/100 WBC (Bld) 1.9 % Normal [facility] Comment on above: Order Comment: Speci men Type: BLOOD SPECIMENOrdering Facility: [facility] Address: [address] [place] [address] Performed By: #### 5 7021-8 ####REYNOSO LABORATORYCLIA [id number] [address] [place] Erythrocyte distribution width (RBC) [Ratio] 13.6 % Normal 11.5-15.0 [facility] Comment on above: Order Comment: Speci men Type: BLOOD SPECIMENOrdering Facility: [facility] Address: [address] [place] [address] Performed By: #### 5 7021-8 ####REYNOSO LABORATORYCLIA [id number] [address] [place] Hematocrit (Bld) [Volume fraction] 39.3 % Normal 39.0-51.0 [facility] Comment on above: Order Comment: Speci men Type: BLOOD SPECIMENOrdering Facility: [facility] Address: [address] [place] [address] Performed By: #### 5 7021-8 ####REYNOSO LABORATORYCLIA [id number] [place] [address] [place] Hemoglobin (Bld) [Mass/Vol] 13.1 g/dL Normal 13.0-17.0 [facility] Comment on above: Order Comment: Speci men Type: BLOOD SPECIMENOrdering Facility: [facility] Address: [address] [place] [address] Performed By: #### 5 7021-8 ####REYNOSO LABORATORYCLIA [id number] [place] [address] [place] Immature granulocytes (Bld) [#/Vol] 0.08 10*3/uL Normal <0.10 [facility] Comment on above: Order Comment: Speci men Type: BLOOD SPECIMENOrdering Facility: [facility] Address: [address] [place] [address] Performed By: #### 5 7021-8 ####REYNOSO LABORATORYCLIA [id number] [place] [address] [place] Immature granulocytes/100 WBC (Bld) 0.8 % Normal [facility] Comment on above: Order Comment: Speci men Type: BLOOD SPECIMENOrdering Facility: [facility] Address: [address] [place] [address] Performed By: #### 5 7021-8 ####REYNOSO LABORATORYCLIA [id number] [place] [address] [place] Lymphocytes (Bld) [#/Vol] 1.26 10*3/uL Normal 1.00-4.00 [facility] Comment on above: Order Comment: Speci men Type: BLOOD SPECIMENOrdering Facility: [facility] Address: [address] [place] [address] Performed By: #### 5 7021-8 ####REYNOSO LABORATORYCLIA [id number] [place] [address] [facility] [place] Lymphocytes/100 WBC (Bld) 13.2 % Normal [facility] Comment on above: Order Comment: Speci men Type: BLOOD SPECIMENOrdering Facility: [facility] Address: [address] [place] [address] Performed By: #### 5 7021-8 ####REYNOSO LABORATORYCLIA [id number] [address] MCH (RBC) [Entitic mass] 31.5 pg Normal 26.0-34.0 [facility] Comment on above: Order Comment: Speci men Type: BLOOD SPECIMENOrdering Facility: [facility] Address: [address] [place] [address] Performed By: #### 5 7021-8 ####REYNOSO LABORATORYCLIA [id number] [address] MCHC (RBC) [Mass/Vol] 33.3 g/dL Normal 30.5-36.0 [facility] Comment on above: Order Comment: Speci men Type: BLOOD SPECIMENOrdering Facility: [facility] Address: [address] [place] [address] Performed By: #### 5 7021-8 ####REYNOSO LABORATORYCLIA [id number] [address] MCV (RBC) [Entitic vol] 94.5 fL Normal 80.0-100.0 [facility] Comment on above: Order Comment: Speci men Type: BLOOD SPECIMENOrdering Facility: [facility] Address: [address] [place] [address] Performed By: #### 5 7021-8 ####REYNOS[facility] LABORATORYCLIA [id number] [address] Monocytes (Bld) [#/Vol] 0.80 10*3/uL Normal <0.87 [facility] Comment on above: Order Comment: Speci men Type: BLOOD SPECIMENOrdering Facility: [facility] Address: [address] [place] [address] Performed By: #### 5 7021-8 ####REYNOS[facility] LABORATORYCLIA [id number] [address] Monocytes/100 WBC (Bld) 8.4 % Normal [facility] Comment on above: Order Comment: Speci men Type: BLOOD SPECIMENOrdering Facility: [facility] Address: [address] [place] [address] Performed By: #### 5 7021-8 ####REYNOSO LABORATORYCLIA [id number] [place] [address] [place] Neutrophils (Bld) [#/Vol] 7.22 10*3/uL Normal 1.45-7.50 [facility] Comment on above: Order Comment: Speci men Type: BLOOD SPECIMENOrdering Facility: [facility] Address: [address] [place] [address] Performed By: #### 5 7021-8 ####REYNOSO LABORATORYCLIA [id number] [address] [place] Neutrophils/100 WBC (Bld) 75.5 % Normal [facility] Comment on above: Order Comment: Speci men Type: BLOOD SPECIMENOrdering Facility: [facility] Address: [address] [place] [address] Performed By: #### 5 7021-8 ####REYNOSO LABORATORYCLIA [id number] [address] [place] Nucleated RBC (Bld) [#/Vol] 10*3/uL Normal <0.01 [facility] Comment on above: Order Comment: Speci men Type: BLOOD SPECIMENOrdering Facility: [facility] Address: [address] [place] [address] Performed By: #### 5 7021-8 ####REYNOSO LABORATORYCLIA [id number] [address] Nucleated RBC/100 WBC (Bld) [Ratio] 0.0 /100 WBC Normal [facility] Comment on above: Order Comment: Speci men Type: BLOOD SPECIMENOrdering Facility: [facility] Address: [address] [place] [address] Performed By: #### 5 7021-8 ####REYNOS[facility] LABORATORYCLIA [id number] [address] Platelet mean volume (Bld) [Entitic vol] 9.9 fL Normal 9.0-12.7 [facility] Comment on above: Order Comment: Speci men Type: BLOOD SPECIMENOrdering Facility: [facility] Address: [address] [place], [place] [address] [id number] Performed By: #### 5 7021-8 ####REYNOSO LABORATORYCLIA [id number] [address] [place] Platelets (Bld) [#/Vol] 221 10*3/uL Normal 150-400 [facility] Comment on above: Order Comment: Speci men Type: BLOOD SPECIMENOrdering Facility: [facility] Address: [place] [address] Performed By: #### 5 7021-8 ####REYNOSO LABORATORYCLIA [id number] [place] [address] [place] RBC (Bld) [#/Vol] 4.16 10*6/uL Low 4.20-6.00 [facility] Comment on above: Order Comment: Speci men Type: BLOOD SPECIMENOrdering Facility: [facility] Address: [place] [address] Performed By: #### 5 7021-8 ####REYNOSO LABORATORYCLIA [id number] [place] [address] [facility] [place] WBC (Bld) [#/Vol] 9.56 10*3/uL Normal 3.70-11.00 [facility] Comment on above: Order Comment: Speci men Type: BLOOD SPECIMENOrdering Facility: [facility] Address: [place] [address] Performed By: #### 5 7021-8 ####REYNOSO LABORATORYCLIA [id number] [address] [place] CNTHERAPYon 09-16-2023 CNTHERAPY OT/PT/Speech Visit ( PTMDRG) DOUGLAS CALLAWAY JR ([id number]) 1955 Date Time Provider Department 09/16/23 2:45 PM KARLA CASTRO PTMDRG Date Time Provider Department Center 09/16/2023 2:45 PM [id number] CASTRO PTMDRG [facility] Reason for Visit: Appointment Cancelled [1023] Primary [...] tablet by mouth twice a day - pzffiu-rowpqute-whizgjx (CREON 36) 36,000-114,000- 180,000 unit delayed release capsule Take 2 caps by mouth 3 times daily with meals and 1 cap with each snack. Take 1st cap before meal starts and the 2nd cap chcf through. - ondansetron (ZOFRAN) 4 mg tablet [...] daily to BE TAKEN ALONG WITH 200 NM... (REFER TO PRESCRIPTION NOTES). - rosuvastatin (CRESTOR) [...] 75 mg by mouth twice daily. Normal [facility] CT BRAIN WO IVCONon 09-16-[address] BRAIN WO IVCON * * *Final Report* * * DATE OF EXAM: Sep 16 2023 5:09PM [facility] 0[facility] - CT BRAIN WO IVCON / [...] No acute abnormalities of the cervical spine Blanket Folder: SEN Transcribe Date/Time: Sep 16 2023 5:24P Dictated by : CHITRA HARRIS DO This examination was interpreted and the report reviewed and electronically signed by: CHITRA HARRIS DO on Sep 16 2023 5:35PM EST [id number] [facility] CT CERVICAL SPINE WO IVCONon 09-16-2023 CT CERVICAL SPINE WO IVCON * * *Final Report* * * DATE OF EXAM: Sep 16 2023 5:09PM [facility] 0[facility] - CT CERVICAL SPINE WO IVCON [...] No acute abnormalities of the cervical spine Blanket Folder: SEN Transcribe Date/Time: Sep 16 2023 5:24P Dictated by : CHITRA HARRIS DO This examination was interpreted and the report reviewed and electronically signed by: CHITRA HARRIS DO on Sep 16 2023 5:35PM EST [id number] [facility] CT FACIAL BONE/NAN WO IVCON on 09-16-2023 CT FACIAL BONE/NAN WO IVCON * * *Final Report* * * DATE OF EXAM: Sep 16 2023 5:09PM [facility] 0507 - CT FACIAL BONE/NNA WO IVCON / PROCEDURE REASON: Maxillofacial pain [...] No acute abnormalities of the cervical spine Blanket Folder: SEN Transcribe Date/Time: Sep 16 2023 5:24P Dictated by : CHITRA HARRIS DO This examination was interpreted and the report reviewed and electronically signed by: CHITRA HARRIS DO on Sep 16 2023 5:35PM EST [id number] Normal [facility] Comprehensive metabolic 2000 panelon 09-16-2023 Albumin [Mass/Vol] 4.0 g/dL Normal 3.9-4.9 [facility] Comment on above: Order Comment: Michelle mckeon Type: BLOOD SPECIMENOrdering Facility: [facility] Address: [address] [place] [address] Performed By: #### 2 4323-8 ####[facility] LABORATORYCLIA [id number] [address] OF [facility] ALP [Catalytic activity/Vol] 149 U/L High 38-113 [facility] Comment on above: Order Comment: Michelle mckeon Type: BLOOD SPECIMENOrdering Facility: [facility] Address: [address] [place] [address] Performed By: #### 2 4323-8 ####[facility] LABORATORYCLIA [id number] [address] ALT [Catalytic activity/Vol] 38 U/L Normal 10-54 [facility] Comment on above: Order Comment: Michelle mckeon Type: BLOOD SPECIMENOrdering Facility: [facility] Address: [address] [place] [address] Performed By: #### 2 4323-8 ####REYNOSO LABORATORYCLIA [id number] [place] [address] [place] Anion gap [Moles/Vol] 12 mmol/L Normal 9-18 [facility] Comment on above: Order Comment: Speci men Type: BLOOD SPECIMENOrdering Facility: [facility] Address: [address] [place] [address] Performed By: #### 2 4323-8 ####REYNOSO LABORATORYCLIA [id number] [place] [address] [place] AST [Catalytic activity/Vol] 44 U/L High 14-40 [facility] Comment on above: Order Comment: Speci men Type: BLOOD SPECIMENOrdering Facility: [facility] Address: [address] [place] [address] Performed By: #### 2 4323-8 ####REYNOSO LABORATORYCLIA [id number] [place] [address] [place] Bilirubin [Mass/Vol] 0.5 mg/dL Normal 0.2-1.3 [facility] Comment on above: Order Comment: Speci men Type: BLOOD SPECIMENOrdering Facility: [facility] Address: [address] [place] [address] Performed By: #### 2 4323-8 ####REYNOSO LABORATORYCLIA [id number] [address] [place] Calcium [Mass/Vol] 9.5 mg/dL Normal 8.5-10.2 [facility] Comment on above: Order Comment: Speci men Type: BLOOD SPECIMENOrdering Facility: [facility] Address: [address] [place] [address] Performed By: #### 2 4323-8 ####REYNOSO LABORATORYCLIA [id number] [place] [address] [place] Chloride [Moles/Vol] 103 mmol/L Normal 97-105 [facility] Comment on above: Order Comment: Speci men Type: BLOOD SPECIMENOrdering Facility: [facility] Address: [address] [place] [address] Performed By: #### 2 4323-8 ####REYNOSO LABORATORYCLIA [id number] [place] [address] [place] CO2 [Moles/Vol] 24 mmol/L Normal 22-30 [facility] Comment on above: Order Comment: Speci men Type: BLOOD SPECIMENOrdering Facility: [facility] Address: [address] [place] [address] Performed By: #### 2 4323-8 ####REYNOSO LABORATORYCLIA [id number] [place] [address] [place] Creatinine [Mass/Vol] 1.42 mg/dL High 0.73-1.22 [facility] Comment on above: Order Comment: Speci men Type: BLOOD SPECIMENOrdering Facility: [facility] Address: [address] [place] [address] Performed By: #### 2 4323-8 ####REYNOSO LABORATORYCLIA [id number] [address] Creatinine and Glomerular filtration rate.predicted panel (S/P/Bld) 53 mL/min/1.73m??? Low >=60 [facility] Comment on above: Order Comment: Speci men Type: BLOOD SPECIMENOrdering Facility: [facility] Address: [address] [place] [address] Result Comment: Poppy mated Glomerular Filtration Rate [...] Performed By: #### 2 4323-8 ####REYNOSO LABORATORYCLIA [id number] [address] [place] Glucose [Mass/Vol] 111 mg/dL High 74-99 [facility] Comment on above: Order Comment: Ermiasi mike Type: BLOOD SPECIMENOrdering Facility: [facility] Address: [address] [place] [address] Result Comment: The [place] [employer] (ADA) provides guidance for cutoff [...] Standards of Medical Care in Diabetes 2016, [place] [employer]. Diabetes Care. 2016.39(Suppl 1). Performed By: #### 2 4323-8 ####REYNOSO LABORATORYCLIA [id number] [place] [address] [place] Potassium [Moles/Vol] 4.2 mmol/L Normal 3.7-5.1 [facility] Comment on above: Order Comment: Michelle mckeon Type: BLOOD SPECIMENOrdering Facility: [facility] Address: [address] [place] [address] Performed By: #### 2 4323-8 ####REYNOSO LABORATORYCLIA [id number] [place] [address] [place] Protein [Mass/Vol] 6.5 g/dL Normal 6.3-8.0 [facility] Comment on above: Order Comment: Michelle mckeon Type: BLOOD SPECIMENOrdering Facility: [facility] Address: [address] [place] [address] Performed By: #### 2 4323-8 ####REYNOSO LABORATORYCLIA [id number] [place] [address] [place] Sodium [Moles/Vol] 139 mmol/L Normal 136-144 [facility] Comment on above: Order Comment: Michelle mckeon Type: BLOOD SPECIMENOrdering Facility: [facility] Address: [address] [place] [address] Performed By: #### 2 4323-8 ####REYNOSO LABORATORYCLIA [id number] [place] [address] [place] Urea nitrogen [Mass/Vol] 23 mg/dL Normal 9-24 [facility] Comment on above: Order Comment: Ermiasi men Type: BLOOD SPECIMENOrdering Facility: [facility] Address: [address] [place] [id number] Performed By: #### 2 4323-8 ####[facility] LABORATORYCLIA [id number] [place] [address] [facility] ED NOTEon 09-16-2023 ED NOTE HNO ID: [id number] Author: LISA CANTOR RN Service: Nursing Author Type: Registered Nurse Type: ED Notes Filed: 09/16/2023 20:35 Note Text: Pt was able to transfer with his cane to the wheelchair and to private vehicle [facility] ED NOTE HNO ID: [id number] Author: LISA CANTOR RN Service: Nursing Author [...] SOB increased facial swelling or difficulty swallowing [facility] ED NOTE HNO ID: [id number] Author: LISA CANTOR RN Service: Nursing Author Type: Registered Nurse Type: ED Notes Filed: 09/16/2023 19:14 Note Text: Candy Decorator has been bedside Pts remains bedside [facility] ED NOTE HNO ID: [id number] Author: LISA CANTOR RN Service: Nursing Author Type: Registered Nurse Type: ED Notes Filed: 09/16/2023 18:40 Note Text: Pt is sipping cold gingerale tolerating well [facility] ED NOTE HNO ID: [id number] Author: LISA CANTOR RN Service: Nursing Author Type: Registered Nurse Type: ED Notes Filed: 09/16/2023 17:54 Note Text: Pt is resting with the ice pack to his face [facility] ED NOTE HNO ID: [id number] Author: LISA CANTOR RN Service: Nursing Author Type: Registered Nurse Type: ED Notes Filed: 09/16/2023 17:39 Note Text: Pt has voided per the urinal 600 cc clear yellow urine [facility] ED NOTE HNO ID: [id number] Author: LISA CANTOR, RN Service: Nursing Author Type: Registered Nurse Type: ED Notes Filed: 09/16/2023 17:35 Note Text: Pt has returned from radiology He has ice packs to his face wounds Normal [facility] ED NOTE HNO ID: [id number] Author: LISA CANTOR RN Service: Nursing Author Type: Registered Nurse Type: ED Notes Filed: 09/16/2023 16:59 Note Text: Ice packs are applied to the pts face Pt is able to speak in complete sentences Per he and his at the bedside the pt has been missing teeth [facility] ED NOTE HNO ID: [id number] Author: RYAN DONAHUE RN Service: ? Author Type: Registered Nurse Type: ED Notes Filed: 09/16/2023 16:01 Note Text: Pt was going to Dr visit and fell hitting head and face. Pt does have frequent falls and his being worked up for Parkinson [facility] ED PROV NOTEon 09-16-2023 ED PROV NOTE HNO ID: [id number] Author: MICHAEL GARCIA MD Service: Emergency Medicine [...] plan.Remainder of lacerations were repaired by physician wellness assistant. He will be empirically given Augmentin due to the nasal fractures as well as bacitracin topically. Other additions or changes: None Signature: Michael Garcia MD Date: 09/16/2023 Time: 7:42 PM MICHAEL GARCIA I 09/16/23 2221 [facility] ED PROV NOTE HNO ID: [id number] Author: ARIANE JIN PA-C Service: Emergency Medicine Author Type: Physician Management Development Specialist Type: ED Provider Notes Filed: 09/17/2023 00:05 [...] ; CABG x 3 EGD 08/2020 at [facility] EGD WITH BIOPSY(S) 05/13/2023 Dr. Fajardo ERCP STENT PLACEMENT BILIARY/PANCREATIC DUCT 09/02/2021 Dr Yarbrough GI TRANSIT AND PRES CARLEY WIRELESS CAPSULE W/INTERP 01/08/2021 Smart Pill-delayed gastric emptying; INCISIONAL BIOPSY SKIN SINGLE LESION biopsy of mass over right eye; benign LAPAROSCOPIC CHOLECYSTECTOMY 09/02/2021 PER ORAL PYLOROMYOTOMY (POP) PROCEDURE (COMP 23641) 06/11/2021 Dr. Bray REMV CATARACT EXTRACAP,INSERT LENS [...] nursing note reviewed. Exam conducted with a business continuity director present. HENT: Head: Comments: Superior laceration is [...] warm and (more content not included)... Normal [facility] PT panel Coag (PPP)on 2023 INR Coag (PPP) [Relative time] 1.0 {INR} Normal 0.9-1.3 [facility] Comment on above: Order Comment: Speci men Type: BLOOD SPECIMENOrdering Facility: [facility] Address: [address] [place] [address], [place] [address] Result Comment: Ladi min K Antagonist (VKA) Therapeutic Range: INR 2 to 3 (Target INR of 2.5) Note: For patients treated with VKA drugs, such as warfarin, the [place] [employer] 2012 Guideline recommends [...] Chest 2012, 141:7S-47S Matt RA, et al. [facility] 2017, 70: 252-289 Performed By: #### 3 4528-0 ####[facility]ORYCLIA [id number] [address] OF [facility] PT Coag (PPP) [Time] 10.3 s Normal 9.7-13.0 [facility] Comment on above: Order Comment: Speci men Type: BLOOD SPECIMENOrdering Facility: [facility] Address: [address] [place] [address] Performed By: #### 3 4528-0 ####[facility]ORATORYCLIA [id number] [address] XR HAND 3V PA/LAT/OBL LTon 0 [...] as discussed in results portion of report Blanket Folder: SEN Transcribe Date/Time: Sep 16 2023 5:35P Dictated by : CHITRA HARRIS DO This examination was interpreted and the report reviewed and electronically signed by: CHITRA HARRIS DO on Sep 16 2023 5:36PM EST [id number] Normal [facility] CNTHERAPYon 08-19-2023 CNTHERAPY OT/PT/Speech Visit ( PTMDRG) DOUGLAS CALLAWAY ([id number]) 1955 M Date Time Provider Department 08/19/23 5:15 PM KARLA CASTRO PTMDRG Date Time Provider Department [place] 08/19/2023 5:15 PM [id number] CASTROG [facility] Reason for Visit: Physical Therapy [503] Primary [...] tablet by mouth twice a day - kpdace-llvatqwq-quvkvug (CREON 36) 36,000-114,000- 180,000 unit delayed release capsule Take 2 caps by mouth 3 times daily with meals and 1 cap with each snack. Take 1st cap before meal starts and the 2nd cap chcf through. - ondansetron (ZOFRAN) 4 mg tablet [...] daily to BE TAKEN ALONG WITH 200 NM... (REFER TO PRESCRIPTION NOTES). - rosuvastatin (CRESTOR) [...] Take 75 mg by mouth twice daily. Work Counselor: Therapy (PT/OT/Speech/Resp) ID: [id number] 08/19/2023 5:58 PM Author: KARLA CASTRO Signed by KARLA CASTRO PT, DPT on 08/19/2023 at 5:58 PM Document text: Program_ID:[id number] Access Code: [email or web address] URL: [email or web address]/ Date: 08-19-2023 Prepared By: Karla Castro Program Notes Exercises - rent and housing investigator between chairs and working on turning in 8 steps - 1 x daily - 7 x weekly - 3 sets - 10 reps - sidestepping in and out of bucket - 1 x daily - 7 x weekly - 3 sets - 10 reps - Sit to Stand - 1 x daily - 7 x weekly - 3 sets - 10 reps [facility] THERAPY NTon 08-19-2023 THERAPY NT HNO ID: [id number] Author: Karla Castro PT, DPT Service: Physical Therapy Author Type: Physical Therapist Type: Therapy (PT/OT/Speech/Resp) Filed: 08/19/2023 5:58 PM Note Text: Program_ID:[id number] Access Code: [email or web address] URL: [email or web address]/ Date: 08-19-2023 Prepared By: Karla Castro Program Notes Exercises - rent and housing investigator between chairs and working on turning in 8 steps - 1 x daily - 7 x weekly - 3 sets - 10 reps - sidestepping in and out of bucket - 1 x daily - 7 x weekly - 3 sets - 10 reps - Sit to Stand - 1 x daily - 7 x weekly - 3 sets - 10 reps [facility] 08-18-2023 [facility] Telephone (RSQ) DOUGLAS CALLAWAY JR ([id number]) 1955 M Date Time Provider Department 08/18/23 ELBA SAMANIEGO During your visit today, we recorded the following information about you: Rena Molina 08/18/2023 11:17 AM Signed Contacted patient per staff message below: Elba Samaniego, PT, DPT P Reynoso Pt/Ot/Speech Clerical Pool Can we call to schedule pt eval for Ot with viviana Left a voice mail to call [phone] and ask for therapy to schedule an appointment. [employer] message Kim Lisseth Cabrera Lisa 08/23/2023 10:21 [...] tablet by mouth twice a day - zmautl-qhtakzwu-tlapytk (CREON 36) 36,000-114,000- 180,000 unit delayed release capsule Take 2 caps by mouth 3 times daily with meals and 1 cap with each snack. Take 1st cap before meal starts and the 2nd cap chcf through. - primidone (MYSOLINE) 50 mg tablet [...] daily to BE TAKEN ALONG WITH 200 NM... (REFER TO PRESCRIPTION NOTES). - rosuvastatin (CRESTOR) [...] Status:Closed by RENA MOLINA on 11/16/[address] [facility] EMG(NEURO/NI)on 08-12-2023 [facility] CNTHERAPYon 08-11-2023 CNTHERAPY OT/PT/Speech Visit ( PTMDRG) DOUGLAS CALLAWAY JR ([id number]) 1955 M Date Time Provider Department 08/11/23 4:15 PM ELBA SAMANIEGO Date Time Provider Department Center 08/11/2023 4:15 PM [id number] SAMANIEGO PTMSOTERO [facility] Reason for Visit: PT Eval [747] Patient [...] tablet by mouth twice a day - wajklo-lkoghhgu-vtiqopq (CREON 36) 36,000-114,000- 180,000 unit delayed release capsule Take 2 caps by mouth 3 times daily with meals and 1 cap with each snack. Take 1st cap before meal starts and the 2nd cap chcf through. - ondansetron (ZOFRAN) 4 mg tablet [...] daily to BE TAKEN ALONG WITH 200 NM... (REFER TO PRESCRIPTION NOTES). - rosuvastatin (CRESTOR) [...] Take 75 mg by mouth twice daily. 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 Take 1st cap before meal starts and the 2nd cap chcf through.Disp: 240 capsuleRfl: 2 Prescriptions as of 08/03/2023 - jynwne-kbwcaqfq-xhbwehf (CREON 36) 36,000-114,000- 180,000 unit delayed release capsule Take 2 caps by mouth 3 times daily with meals and 1 cap with each snack. Take 1st cap before meal starts and the 2nd cap chcf through. - ondansetron (ZOFRAN) 4 mg tablet [...] daily to BE TAKEN ALONG WITH 200 NM... (REFER TO PRESCRIPTION NOTES). - rosuvastatin (CRESTOR) [...] ordered this encounter Disp Refills Start End DELUSZ-LHDHNARF-TUSPJCJ 36,000-114,0* 240 * 2 08/02/2023 Sig: Take 2 caps by mouth 3 times daily with meals and 1 cap with each snack. Take 1st cap before meal starts and the 2nd cap chcf through. Encounter Status:Closed by PRAVIN MUKHERJEE on 08/03/23 Normal [facility] C diff Tox gens Stl Ql SUSIE+p berto 07-27-2023 C. difficile toxin genes SUSIE+probe Ql (Stl) Negative Normal Negative for C. difficile toxin by PCR [facility] Comment on above: Order Comment: Speci men Type: STOOL SPECIMEN [facility]ing Facility: [facility] Address: [address] [place] [address] Performed By: #### 5 4067-4 #### [facility] CLIA [id number] [address] [place], [place] [address] [address] STATES OF [facility] CNOVon 07-27-2023 CNOV Office Visit (NEURMM ) DOUGLAS CALLAWAY JR ([id number]) 1955 M Date Time Provider Department 07/27/23 [...] MEDICAL HISTORY Diagnosis Date Bipolar II disorder ([facility]) CAD (coronary artery disease) 12/2019 CABG x 3 Carotid artery occlusion with cerebral infarction ([facility]) pt denies this; CVA was secondary to HTN CVA (cerebral vascular accident) ([facility]) 2003 related to untreated HTN; no residual effects Depression Elevated LFTs Gastroparesis POP procedure 06/11/21 GERD (gastroesophageal reflux disease) Hepatitis A 09/2018 Resolved HTN (hypertension) Hyperlipemia Insomnia CABRERA (obstructive sleep apnea) does not currently have a CPAP Osteoporoses Renal insufficiency TIA (transient ischemic attack) prior to CVA in 2003, none since Type 2 diabetes mellitus ([facility]) 2018 Iván Case PCP Current Outpatient Medications [...] daily to BE TAKEN ALONG WITH 200 NM... (REFER TO PRESCRIPTION NOTES). rosuvastatin (CRESTOR) 10 [...] lamoTRIgine ER (more content not included)... Normal [facility] DOUGLAS CALLAWAY JR ([id number]) 1955 M Date Time Provider Department 07/27/23 [...] daily to BE TAKEN ALONG WITH 200 NM... (REFER TO PRESCRIPTION NOTES). - rosuvastatin (CRESTOR) [...] Status:Closed by ROSS DIMAS on 07/27/[address] [facility] Calprotectin (Stl) [Mass/Mas s]on 07-27-2023 CALPROTECTIN, FECAL INTERP Elevated Abnormal Normal [facility] Comment on above: Order Comment: Speci men Type: STOOL SPECIMENOrdering Facility: [facility] Address: [address] [place] [address] Result Comment: On 2022, [facility] implemented a new fecal calprotectin method, the [employer] Liaison Calprotectin assay. For assistance with interpretation of results in patients undergoing serial monitoring, contact Client Services at [phone] or [phone] to discuss options, preferably within 7 days of issuing this report. Interpretation: <50.0 ug/g: Normal 50.0 ug/g - 120.0 ug/g: Borderline elevated. Re-evaluation in 4-6 weeks is recommended if clinically indicated. >120.0 ug/g: Elevated Performed By: #### 3 8445-3 ####[facility] [id number] [facility] [id number] [address] [place] CALPROTECTIN, FECAL QUANTITATIVE 599 ug/g High <50 [facility] Comment on above: Order Comment: Speci men Type: STOOL SPECIMENOrdering Facility: [facility] Address: [address] [place] [address] Performed By: #### 3 8445-3 ####[facility] LAB[facility] [id number] [place] [address] [place] FAT, FECAL QUALon 07-27-2023 FAT, FECAL - NEUTRAL Normal Normal Normal [facility] Comment on above: Order Comment: Speci men Type: STOOL SPECIMEN [facility] Address: [address] [place] [address] Performed By: #### F FATQL #### [facility] [id number] [address] [place] [address] FAT, FECAL - SPLIT Normal Normal Normal [facility] Comment on above: Order Comment: Speci men Type: STOOL SPECIMEN [facility] Address: [address] [place] [address] Result Comment: INTE RPRETIVE INFORMATION: Fecal Fat Qualitative Neutral fats include the monoglycerides, diglycerides, and triglycerides while split fats are the free fatty acids that are liberated from them. Impaired synthesis or secretion of pancreatic enzymes or bile may cause an increase in neutral fats while an increase in split fats suggests impaired absorption of nutrients. Performed By: [employer] [address] [place] [address] Blacksmith Hammer Operator: Dale Mckeon MD, PhD CLIA Number: [id number] Performed By: #### F FATQL #### [facility] CLIA [id number] [address] [place] [address] H pylori Ag Stl Ql IAon 07-08 H. pylori Ag IA Ql (Stl) H.PYLORI EIA RESULT: Negative for Helicobacter pylori antigen by EIA Normal [facility] Comment on above: Performed By: #### P ANCEF, 77925-7 #### [facility] CLIA [id number] [address] [place] [address] [place] MAGNESIUM BLDon 11-21-2023 Magnesium [Mass/Vol] 1.8 mg/dL 1.7 - 2.3 mg/dL [facility] Magnesium [Mass/Vol] 1.8 mg/dL Normal 1.7-2.3 [facility] Comment on above: Order Comment: Speci men Type: BLOOD SPECIMENOrdering Facility: [facility] Address: [address] [place] [address] Performed By: #### 2 132-9, 35527-0 ####[facility] LABORATORYCLIA [id number] [place] [address] [place] PANC ELASTASE, FECALon 07-27 ELASTASE INTERPRETATION Mild to moderate Exocrine Pancreatic Insufficiency Abnormal Normal [facility] Comment on above: Order Comment: Speci men Type: STOOL SPECIMEN [facility] Address: [address] [place] [address] Performed By: #### P ANCEF, 05415-7 #### [facility] CLIA [id number] [address] [place] [address] [place] ELASTASE-1 CONCENTRATION 196 ug/g Abnormal >=200 [facility] Comment on above: Order Comment: Speci men Type: STOOL SPECIMEN [facility] Address: [address] [place] [address] Result Comment: Inte rpretation: <100 ug/g: Severe Exocrine Pancreatic Insufficiency 100-199 ug/g: Mild to Moderate Exocrine Pancreatic Insufficiency >=200 ug/g: Normal Performed By: #### P ANCEF, 61332-5 #### [facility] CLIA [id number] [address] [place] [address] [place] VITAMIN B12 BLOODon 07-27-20 23 Cobalamin (Vitamin B12) [Mass/Vol] 1328 pg/mL High 232 - 1,245 pg/mL [facility] Vit B12 SerPl-mCncon 023 Cobalamin (Vitamin B12) [Mass/Vol] 1328 pg/mL High 232-1245 [facility] Comment on above: Order Comment: Speci men Type: BLOOD SPECIMENOrdering Facility: [facility] Address: [address] [place] [address] [place] [address] Performed By: #### 2 132-9, 80208-2 ####[facility] [id number] [place] [address] [place] CNOVon 07-26-2023 CNOV Office Visit (AGGAST ACC) CESIADOUGLAS Brianna ([id number]) 1955 M Date Time Provider Department 07/26/23 [...] daily to BE TAKEN ALONG WITH 200 NM... (REFER TO PRESCRIPTION NOTES). rosuvastatin (CRESTOR) 10 [...] a C (more content not included)... Normal [facility] Telephone (AGGENS4) DOUGLAS CALLAWAY JR ([id number]) 1955 M Date Time Provider Department 07/08/23 [...] daily to BE TAKEN ALONG WITH 200 NM... (REFER TO PRESCRIPTION NOTES). - rosuvastatin (CRESTOR) [...] Encounter Status:Closed by BRODY MUNSON on 07/08/23 [facility] CNOVon 06-10-2023 [facility] Office Visit (AGGENS 4) DOUGLAS CALLAWAY ([id number]) 1955 M Date Time Provider Department 06/10/23 [...] ; CABG x 3 EGD 08/2020 at [facility] EGD WITH BIOPSY(S) 05/13/2023 Dr. Fajardo ERCP STENT PLACEMENT BILIARY/PANCREATIC DUCT 09/02/2021 Dr Yarbrough GI TRANSIT AND PRES CARLEY WIRELESS CAPSULE W/INTERP 01/08/2021 Smart Pill-delayed gastric emptying; INCISIONAL BIOPSY SKIN SINGLE LESION biopsy of mass over right eye; benign LAPAROSCOPIC CHOLECYSTECTOMY 09/02/2021 PER ORAL PYLOROMYOTOMY (POP) PROCEDURE (COMP 25341) 06/11/2021 Dr. Bray REMV CATARACT EXTRACAP,INSERT LENS [...] 12.0 standar (more content not included)... Normal [facility] ANES POSTPROC EVALon 023 ANES POSTPROC EVAL HNO ID: [id number] Author: Norberto Calderon MD Service: Anesthesiology Author Type: Physician Type: Anesthesia Postprocedure Evaluation Filed: 05/13/2023 3:47 PM Note Text: POST ANESTHESIA EVALUATION NOTE : 1955 Procedure Summary Date: 05/13/23 Room / Location: [facility] Anesthesia Start: 1512 Anesthesia Stop: [...] May 13, 2023 TIME: 3:35 PM CSN: [id number] Normal [facility] ANES PRE-OPon 05-13-2023 ANES PRE-OP HNO ID: [id number] Author: Norberto Calderon MD Service: Anesthesiology Author Type: Physician Type: Anesthesia Preprocedure Evaluation Filed: 05/13/2023 3:27 PM Note Text: Believe these changes are non controverANESTHESIOLOGY DAY OF SURGERY NOTE : 1955 Procedure Information Date/Time: 05/13/23 1500 Scheduled providers: Germaine Bray MD Procedure: EGD DIAGNOSTIC Location: [facility] Estimated body mass index is [...] and consent discussed: yes. Patient / Responsible Republican agrees to proceed: yes Patient / Surrogate [...] daily to BE TAKEN ALONG WITH 200 NM... (REFER TO PRESCRIPTION NOTES). - rosuvastatin (CRESTOR) [...] Surgery/Procedure. SIGNATURE: Norberto Calderon MD PATIENT NAME: Douglas Callaway JR DATE: May 13, 2023 MRN: (more content not included)... Normal [facility] EGD DIAGNOSTICon 05-13-2023 [facility] HISTORY PHYSICALon HISTORY PHYSICAL HNO ID: [id number] Author: Tiffany Ramey APRN.CNP Service: Anesthesiology Author [...] ; CABG x 3 EGD 08/2020 at [facility] ERCP STENT PLACEMENT BILIARY/PANCREATIC DUCT 09/02/2021 Dr Yarbrough GI TRANSIT AND PRES CARLEY WIRELESS CAPSULE W/INTERP 01/08/2021 Smart Pill-delayed gastric emptying; INCISIONAL BIOPSY SKIN SINGLE LESION biopsy of mass over right eye; benign LAPAROSCOPIC CHOLECYSTECTOMY 09/02/2021 PER ORAL PYLOROMYOTOMY (POP) PROCEDURE (COMP 57528) 06/11/2021 Dr. Tomy LARSON CATARACT EXTRACAP,INSERT LENS [...] EC tablet Take by mouth. Yes aspirin ([employer] CHEWABLE ASPIRIN) 81 mg chewable tablet Take [...] daily to BE TAKEN ALONG WITH 200 NM... (REFER TO PRESCRIPTION NOTES). 05/10/2023 rosuvastatin (CRESTOR) [...] by donell (more content not included)... Normal [facility] OPERATIVE NOon 05-13-2023 OPERATIVE NO HNO ID: [id number] Author: Germaine Bray MD Service: General Surgery Author Type: Physician Type: Operative Report Filed: 05/13/2023 3:37 PM Note Text: OPERATIVE/PROCEDURE REPORT LOG ID: [id number] Surgery/Procedure Date: Incision/Procedure Start Time: 3:21 PM Incision Close/Procedure End Time: 3:27 PM Surgeon(s)/Proceduralist(s) and Management Development Specialist(s): Surgeon(s) and Role: * Germaine Bray MD [...] 2023 TIME: 3:28 PM PAGER/CONTACT #: Normal [facility] SURGICAL PATHOLOGYon 023 CASE REPORT [facility] Comment on above: Order Comment: Speci men Type: TISSUE SPECIMENOrdering Facility: [facility] Address: [facility] [place] [address] Result Comment: Surg ica Pathology Report Case: [id number] Authorizing Provider: Germaine Bray MD Collected: 05/13/2023 03:26 PM Ordering Location: [facility] Received: 05/14/2023 08:23 AM Pathologist: Claudette Altamirano MD Specimen: ANTRUM (STOMACH) BIOPSY Performed By: #### S ####[facility] [id number] [address] DIAGNOSIS COMMENT Normal [facility] Comment on above: Order Comment: Speci men Type: TISSUE SPECIMENOrdering Facility: [facility] Address: [address] [place] [address] Result Comment: Konstantin Patrick Test (LDT) Disclaimer: Performance characteristics of immunohistochemical, immunofluorescent and chromogenic in-situ hybridization tests have been determined by the performing laboratory within [facility]???s [facility] [address] ([facility], [facility], [facility], [facility], [facility], or [facility]) in a manner consistent with CLIA requirements. One or more of these tests have not been cleared or approved by the FDA. [facility] is regulated under CLIA as qualified to perform high-complexity testing. These tests are used for clinical purposes. They should not be regarded as investigational or for research. Positive and negative controls stain appropriately. Performed By: #### S ####[facility] [id number] [address] FINAL DIAGNOSIS Normal [facility] Comment on above: Order Comment: Speci men Type: TISSUE SPECIMENOrdering Facility: [facility] Address: [address] [place] [address] Result Comment: A. A ntrum (stomach), biopsy: -- Antral and oxyntic type gastric mucosa with changes of reactive gastropathy and chronic inactive gastritis. -- Immunohistochemical stain for H. Pylori negative for microorganisms. Performed By: #### S ####[facility]ITAL[facility] [id number] [place] [id number] [facility] FINAL PERFORMING LAB [facility] Comment on above: Order Comment: Speci men Type: TISSUE SPECIMENOrdering Facility: [facility] Address: [address] [place] [address] Result Comment: Diag nostic interpretation performed at [facility], [address] [place] [address] CLIA# [id number] [employer] Operator: Colton Gamble M.D. Performed By: #### S ####[facility] LABORATORYCLIA [id number] [address] [place] GROSS DESCRIPTION Normal [facility] Comment on above: Order Comment: Speci men Type: TISSUE SPECIMENOrdering Facility: [facility] Address: [address] [place] [id number] Result Comment: A. A NTRUM (STOMACH) BIOPSY Received in formalin labeled antrum (stomach) biopsy are multiple pieces of manuel, soft tissue aggregating to 1.5 x 0.2 x 0.2 cm. Totally submitted in one cassette. Gross examination performed at [facility], [address] [place] [address] CLIA# [id number] [facility] May 14, 2023 12:16 PM Performed By: #### S ####[facility] LABORATORYCLIA [id number] [address] [place] Upper GI endoscopyon [address] [facility] Gastrointestinal Endoscopy Patient Name: Douglas Callaway Procedure Date: 05/13/2023 3:07 PM Date of : 1955 Admit Type: Outpatient Room: [place] [address] Gender: Male Note Status: Finalized Attending MD: [...] dose tomorrow. Procedure Code(s): --- Professional --- 83105, Esophagogastroduodenoscopy, flexible, transoral; with biopsy, single or multiple --- Technical --- 83282, Esophagogastroduodenoscopy, flexible, transoral; with biopsy, single or multiple Diagnosis Code(s): --- Professional --- K29.70, Gastritis, unspecified, without bleeding R12, Heartburn --- Technical --- K29.70, Gastritis, unspecified, without bleeding R12, Heartburn CPT copyright 2020 [employer]. All rights reserved. The codes documented in this report are preliminary and upon attorney at law review may be revised to meet current compliance requirements. Attending Participation: I personally performed the entire procedure. Scope In: 3:21:25 PM Scope Out: 3:27:00 PM MD Germaine Tracey MD 05/13/2023 3:42:20 PM This report has been signed electronically by Germaine Bray MD Number of Addenda: 0 Note Initiated On: 05/13/2023 3:07 PM Normal [facility] NM GASTRIC EMPTYING SOLIDon 04-22-2023 NM GASTRIC [...] RATE OF GASTRIC EMPTYING OF SOLID MEAL. Blanket Folder: SEN Transcribe Date/Time: Apr 22 2023 2:25P Dictated by : CINDY NARVAEZ MD This examination was interpreted and the report reviewed and electronically signed by: CINDY NARVAEZ MD on Apr 22 2023 2:27PM EST [id number] Normal [facility] 04-08-2023 [facility] Telephone (AGGENS4) DOUGLAS CALLAWAY JR ([id number]) 1955 M Date Time Provider Department 04/08/23 [...] Status:Closed by SPRING REILLY on 04/09/23 Normal [facility] CREATININE BLDon 04-08-2023 Creatinine [Mass/Vol] 1.27 mg/dL High 0.73-1.22 [facility] Comment on above: Order Comment: Speci men Type: BLOOD SPECIMENOrdering Facility: [facility] Address: [address] [place] [address] Performed By: #### C RET1 ####[facility] [id number] [place] [address] [place] ESTIMATED GLOMERULAR FILTRATION RATE 61 mL/min/1.73m??? Normal >=60 [facility] Comment on above: Order Comment: Speci men Type: BLOOD SPECIMENOrdering Facility: [facility] Address: [address] [place] [address] Result Comment: Poppy mated Glomerular Filtration Rate [...] actual GFR. Performed By: #### C RET1 ####[facility]PITALNCLIA [id number] [place] [address] [place] CT ABD/PEL W IVCONon 023 CT ABD/PEL W IVCON * * *Final Report* * * DATE OF EXAM: Apr 08 2023 3:35PM [facility] 0530 - CT ABD/PEL W IVCON / [...] Degenerative changes. Lower thorax: No acute findings. Lawn Technician (topogram) images: No additional findings. IMPRESSION: No acute findings in the abdomen or pelvis. Biliary stents appear patent and properly positioned. No biliary ductal dilatation. Blanket Folder: PSCB Transcribe Date/Time: Apr 10 2023 4:35P Dictated by : KEVIN JOHN MD This examination was interpreted and the report reviewed and electronically signed by: KEVIN JOHN MD on Apr 10 2023 4:44PM EST [id number] Normal [facility] CNOVon 04-06-2023 CNOV Office Visit (AGGENS 4) DOUGLAS CALLAWAY JR ([id number]) 1955 M Date Time Provider Department 04/06/23 [...] ; CABG x 3 EGD 08/2020 at [facility] ERCP STENT PLACEMENT BILIARY/PANCREATIC DUCT 09/02/2021 Dr Yarbrough GI TRANSIT AND PRES CARLEY WIRELESS CAPSULE W/INTERP 01/08/2021 Smart Pill-delayed gastric emptying; INCISIONAL BIOPSY SKIN SINGLE LESION biopsy of mass over right eye; benign LAPAROSCOPIC CHOLECYSTECTOMY 09/02/2021 PER ORAL PYLOROMYOTOMY (POP) PROCEDURE (COMP [id number]) 06/11/2021 Dr. Bray REMV CATARACT EXTRACAP,INSERT LENS [...] at bedtime. (more content not included)... Normal [facility] Absolute lymphocyte counton 07-16-2022 Lymphocytes Auto (Unsp spec) [#/Vol] 1.82 10*3/uL 0.83-4.51 [facility] Work Phone: [phone] Basophil percentageon 2021 Basophils/100 WBC (Bld) 0.3 % 0-1 [facility] Work Phone: [phone] Bilirubin [Mass/Vol] 0.60 mg/dL 0.20-1.00 [facility] Work Phone: [phone] Comment on above: For patients on eltr ombopag therapy, use of Dimension [place] TBIL is not recommended. Chloride [Moles/Vol] 103 mmol/L 98-107 [facility] Work Phone: [phone] Cholesterol [Mass/Vol] 95 mg/dL <200 [facility] Work Phone: [phone] Comment on above: <200 mg/dL Desirable 200-240 mg/dL Borderline >240 mg/dL High Risk Eosinophils/100 WBC (Bld) 2.9 % 0-5 [facility] Work Phone: [phone] Glucose [Mass/Vol] 202 mg/dL 74-106 [facility] Work Phone: [phone] Comment on above: Glucose result great er than or equal to 200 mg/dLsuggests DIABETES MELLITUS per A.D.A. criteria. Neutrophils (Bld) [#/Vol] 4.5 10*3/uL 2.0-7.7 [facility] Work Phone: Neutrophils/100 WBC (Bld) 58.6 % 47-70 [facility] Work Phone: [phone] Potassium [Moles/Vol] 4.3 mmol/L 3.5-5.1 [facility] Work Phone: [phone] Protein [Mass/Vol] 6.6 g/dL 6.4-8.2 [facility] Work Phone: [phone] Sodium [Moles/Vol] 139 mmol/L 136-145 [facility] Work Phone: [phone] Triglyceride [Mass/Vol] 165 mg/dL <199 [facility] Work Phone: [phone] Comment on above: The drugs N-Acetylcy steine and Metamizole may falsely depress this assay.Serum Triglycerides Reference Interval Normal <150 mg/dL Borderline high 150 - 199 mg/dL High 200 - 499 mg/dL Very High > or = 500 mg/dL WBC (Bld) [#/Vol] 7.6 10*3/uL 4.4-11.0 [facility] Work Phone: [phone] Blood erythrocytes count (nu mber/volume)on 07-16-2022 RBC (Bld) [#/Vol] 4.51 10*6/uL 4.6-6.2 [facility] Work Phone: [phone] Blood hemoglobin measurement (mass/volume)on 07-16-2022 Hemoglobin (Bld) [Mass/Vol] 13.9 g/dL 13.0-16.5 [facility] Work Phone: Blood lymphocytes/100 leukoc yteson 07-16-2022 Lymphocytes/100 WBC (Bld) 23.9 % 19-41 [facility] Work Phone: [phone] Blood monocytes/100 leukocyt eson 07-16-2022 Monocytes/100 WBC (Bld) 13.4 % 0-10 [facility] Work Phone: Blood platelet mean volumeon 07-16-2022 Platelet mean volume (Bld) [Entitic vol] 10.6 fL 6.2-12.0 [facility] Work Phone: [phone] Determination of erythrocyte mean corpuscular volume (MCV)on 07-16-2022 MCV (RBC) [Entitic vol] 94.0 fL 80-94 [facility] Work Phone: [phone] Hematocrit Auto (Bld) [Volum e fraction]on 07-16-2022 Hematocrit (Bld) [Volume fraction] 42.4 % 40-54 [facility] Work Phone: [phone] Iron measurement (mass/mass) on 07-16-2022 Iron (Unsp spec) [Mass/Mass] 73 ug/dL 65-175 [facility] Work Phone: [phone] Laboratory - Chemistry and C hemistry - challengeon 07-16-2022 ALP [Catalytic activity/Vol] 186 U/L 45-117 [facility] Work Phone: [phone] ALT [Catalytic activity/Vol] 29 U/L 16-61 [facility] Work Phone: [phone] CO2 [Moles/Vol] 29.0 mmol/L 21.0-32.0 [facility] Work Phone: [phone] Globulin (S) [Mass/Vol] 3.4 g/dL 2.2-4.2 [facility] Work Phone: [phone] Urea nitrogen/Creatinine [Mass ratio] 12.4 mg/mg 10-20 [facility] Work Phone: [phone] Laboratory - Hematology and Cell countson 07-16-2022 Erythrocyte distribution width (RBC) [Entitic vol] 45.5 fL 35.1-43.9 [facility] Work Phone: [phone] Erythrocyte distribution width (RBC) [Ratio] 13.4 % 11.6-14.6 [facility] Work Phone: [phone] Immature granulocytes/100 WBC (Bld) 0.900 % 0.0-0.9 [facility] Work Phone: [phone] Comment on above: IG% - Immature Granu locytes (promyelocytes, myelocytes and metamyelocytes) > 1% indicates that a LEFT SHIFT is Present. MCH (RBC) [Entitic mass] 30.8 pg 27.0-32.0 [facility] Work Phone: Nucleated RBC/100 WBC (Bld) [Ratio] 0 % 0-5 [facility] Work Phone: MCHC Auto (RBC) [Mass/Vol]on 07-16-2022 MCHC (RBC) [Mass/Vol] 32.8 g/dL 32-36 [facility] Work Phone: No Panel Informationon 07-16 Estimated GFR (MDRD) Amer 77 mL/min >60 [facility] Work Phone: Comment on above: GFR Calc Estimated GFR (MDRD) Non-Af Amer 63 mL/min >60 [facility] Work Phone: Comment on above: Non- GFR Calc Thyroid Stimulating Hormone (TSH) 2.96 uIU/mL 0.358-3.74 [facility] Work Phone: Total Iron Binding Capacity 329 ug/dL 250-450 [facility] Work Phone: Urine Microalbumin/Creati nine Ratio 262.9 mg/g CRE <30 [facility] Work Phone: Vitamin D 25-Hydroxy 54.5 ng/mL [facility] Work Phone: Comment on above: Vitamin D 25(OH) Sta tus Range Deficiency <20 ng/mL (50nmol/L) Insufficiency 20 - 30 ng/mL (50 - 75 nmol/L) Sufficiency 30 - 100 ng/mL (75 - 250 nmol/L) Toxicity >100 ng/mL (>250 nmol/L) Platelets bldon 07-16-2022 Platelets (Bld) [#/Vol] 214 10*3/uL 150-450 [facility] Work Phone: [phone] Serum or plasma albumin carley urement (mass/volume)on 07-16-2022 Albumin [Mass/Vol] 3.2 g/dL 3.2-5.0 [facility] Work Phone: [phone] Serum or plasma albumin/glob ulin mass ratioon 07-16-2022 Albumin/Globulin [Mass ratio] 0.9 {ratio} 0.9-2.4 [facility] Work Phone: Serum or plasma calcium carley urement (mass/volume)on 07-16-2022 Calcium [Mass/Vol] 8.9 mg/dL 8.5-10.1 [facility] Work Phone: Serum or plasma cholesterol in HDL measurement (mass/volume)on 07-16-2022 Cholesterol in HDL [Mass/Vol] 47 mg/dL >40 [facility] Work Phone: Comment on above: The drugs N-Acetylcy steine and Metamizole may falsely depress this assay. Reference Range HDL <40 mg/dL Low HDL Cholesterol HDL >or= 60 mg/dL High HDL Cholesterol Serum or plasma cholesterol in VLDL measurement (mass/volume)on 07-16-2022 Cholesterol in VLDL [Mass/Vol] 33 mg/dL 5-40 [facility] Work Phone: Serum or plasma creatinine m easurement (mass/volume)on 07-16-2022 Creatinine [Mass/Vol] 1.21 mg/dL 0.70-1.30 [facility] Work Phone: Comment on above: The validity of the calculated GFR & GFRAA in patients over 70 years has not been determined. Clinical correlation is essential. Serum or plasma ferritin maryjo surement (mass/volume)on 07-16-2022 Ferritin [Mass/Vol] 38 ng/mL 26-388 [facility] Work Phone: Serum or plasma iron saturat ion measurement (mass fraction)on 07-16-2022 Iron saturation [Mass fraction] 22.2 % 15.0-55.0 [facility] Work Phone: Serum or plasma low density lipoprotein (LDL) cholesterol measurement (mass/volume)on 07-16-2022 Cholesterol in LDL [Mass/Vol] 15 mg/dL 0-130 [facility] Work Phone: Serum or plasma urea nitroge n measurement (mass/volume)on 07-16-2022 Urea nitrogen [Mass/Vol] 15 mg/dL 7-18 [facility] Work Phone: [phone] Thin prep Papanicolaou smear with manual screeningon 07-16-2022 Thin prep Papanicolaou smear with manual screening 23 U/L 15-37 [facility] Work Phone: [phone] Thin prep Papanicolaou smear with manual screening 7 5-15 [facility] Work Phone: [phone] Thin prep Papanicolaou smear with manual screening 305.0 mg/L NO RANGE EST. [facility] Work Phone: [phone] Urine creatinine measurement (mass/volume)on 07-16-2022 Creatinine (U) [Mass/Vol] 116.00 mg/dL NO RANGE EST. [facility] Work Phone: [phone] Whole blood hemoglobin A1c/t otal hemoglobin ratio (mass fraction)on 07-16-2022 HbA1c (Bld) [Mass fraction] 6.6 % 3.8-5.6 [facility] Work Phone: [phone] Comment on above: Normal < 5.7 % Predi abetic 5.7 - 6.4 % Diabetic >or= 6.5 % Please note range changes. Absolute lymphocyte counton 02-12-2022 Lymphocytes Auto (Unsp spec) [#/Vol] 1.81 10*3/uL 0.83-4.51 [facility] Work Phone: [phone] Basophil percentageon 2021 Basophils/100 WBC (Bld) 0.3 % 0-1 [facility] Work Phone: [phone] Bilirubin [Mass/Vol] 0.50 mg/dL 0.20-1.00 [facility] Work Phone: [phone] Comment on above: For patients on eltr ombopag therapy, use of Dimension [place] TBIL is not recommended. Chloride [Moles/Vol] 102 mmol/L 98-107 [facility] Work Phone: [phone] Cholesterol [Mass/Vol] 99 mg/dL <200 [facility] Work Phone: [phone] Comment on above: <200 mg/dL Desirable 200-240 mg/dL Borderline >240 mg/dL High Risk Eosinophils/100 WBC (Bld) 4.2 % 0-5 [facility] Work Phone: [phone] Glucose [Mass/Vol] 120 mg/dL 74-106 [facility] Work Phone: [phone] Comment on above: Fasting Glucose resu lt from 100 to 125 mg/dL suggests IMPAIRED HOMEOSTASIS per A.D.A. criteria. Neutrophils (Bld) [#/Vol] 4.1 10*3/uL 2.0-7.7 [facility] Work Phone: [phone] Neutrophils/100 WBC (Bld) 56.9 % 47-70 [facility] Work Phone: [phone] Potassium [Moles/Vol] 4.4 mmol/L 3.5-5.1 [facility] Work Phone: [phone] Protein [Mass/Vol] 6.9 g/dL 6.4-8.2 [facility] Work Phone: [phone] Sodium [Moles/Vol] 138 mmol/L 136-145 [facility] Work Phone: [phone] Triglyceride [Mass/Vol] 195 mg/dL [facility] Work Phone: [phone] Comment on above: The drugs N-Acetylcy steine and Metamizole may falsely depress this assay.Serum Triglycerides Reference Interval Normal <150 mg/dL Borderline high 150 - 199 mg/dL High 200 - 499 mg/dL Very High > or = 500 mg/dL WBC (Bld) [#/Vol] 7.2 10*3/uL 4.4-11.0 [facility] Work Phone: [phone] Blood erythrocytes count (nu mber/volume)on 02-12-2022 RBC (Bld) [#/Vol] 4.18 10*6/uL 4.6-6.2 [facility] Work Phone: [phone] Blood hemoglobin measurement (mass/volume)on 02-12-2022 Hemoglobin (Bld) [Mass/Vol] 12.4 g/dL 13.0-16.5 [facility] Work Phone: [phone] Blood lymphocytes/100 leukoc yteson 02-12-2022 Lymphocytes/100 WBC (Bld) 25.2 % 19-41 [facility] Work Phone: Blood monocytes/100 leukocyt eson 02-12-2022 Monocytes/100 WBC (Bld) 13.1 % 0-10 [facility] Work Phone: Blood platelet mean volumeon 02-12-2022 Platelet mean volume (Bld) [Entitic vol] 10.3 fL 6.2-12.0 [facility] Work Phone: Determination of erythrocyte mean corpuscular volume (MCV)on 02-12-2022 MCV (RBC) [Entitic vol] 96.7 fL 80-94 [facility] Work Phone: Hematocrit Auto (Bld) [Volum e fraction]on 02-12-2022 Hematocrit (Bld) [Volume fraction] 40.4 % 40-54 [facility] Work Phone: Iron measurement (mass/mass) on 02-12-2022 Iron (Unsp spec) [Mass/Mass] 47 ug/dL 65-175 [facility] Work Phone: Laboratory - Chemistry and C hemistry - challengeon 02-12-2022 ALP [Catalytic activity/Vol] 173 U/L 45-117 [facility] Work Phone: ALT [Catalytic activity/Vol] 35 U/L 16-61 [facility] Work Phone: [phone] CO2 [Moles/Vol] 31.0 mmol/L 21.0-32.0 [facility] Work Phone: Globulin (S) [Mass/Vol] 3.5 g/dL 2.2-4.2 [facility] Work Phone: [phone] Urea nitrogen/Creatinine [Mass ratio] 19.1 mg/mg 10-20 [facility] Work Phone: [phone] Laboratory - Hematology and Cell countson 02-12-2022 Erythrocyte distribution width (RBC) [Entitic vol] 54.0 fL 35.1-43.9 [facility] Work Phone: Erythrocyte distribution width (RBC) [Ratio] 15.4 % 11.6-14.6 [facility] Work Phone: Immature granulocytes/100 WBC (Bld) 0.300 % 0.0-0.9 [facility] Work Phone: [phone] Comment on above: IG% - Immature Granu locytes (promyelocytes, myelocytes and metamyelocytes) > 1% indicates that a LEFT SHIFT is Present. MCH (RBC) [Entitic mass] 29.7 pg 27.0-32.0 [facility] Work Phone: Nucleated RBC/100 WBC (Bld) [Ratio] 0 % 0-5 [facility] Work Phone: [phone] MCHC Auto (RBC) [Mass/Vol]on 02-12-2022 MCHC (RBC) [Mass/Vol] 30.7 g/dL 32-36 [facility] Work Phone: No Panel Informationon 02-12 Estimated GFR (MDRD) Amer 70 mL/min >60 [facility] Work Phone: [phone] Comment on above: GFR Calc Estimated GFR (MDRD) Non-Af Amer 58 mL/min >60 [facility] Work Phone: Comment on above: Non- GFR Calc Total Iron Binding Capacity 362 ug/dL 250-450 [facility] Work Phone: Urine Microalbumin/Creati nine Ratio 236.5 mg/g CRE <30 [facility] Work Phone: [phone] Vitamin D 25-Hydroxy 52.2 ng/mL [facility] Work Phone: [phone] Comment on above: Vitamin D 25(OH) Sta tus Range Deficiency <20 ng/mL (50nmol/L) Insufficiency 20 - 30 ng/mL (50 - 75 nmol/L) Sufficiency 30 - 100 ng/mL (75 - 250 nmol/L) Toxicity >100 ng/mL (>250 nmol/L) Platelets bldon 02-12-2022 Platelets (Bld) [#/Vol] 280 10*3/uL 150-450 [facility] Work Phone: Serum or plasma albumin carley urement (mass/volume)on 02-12-2022 Albumin [Mass/Vol] 3.4 g/dL 3.2-5.0 [facility] Work Phone: Serum or plasma albumin/glob ulin mass ratioon 02-12-2022 Albumin/Globulin [Mass ratio] 1.0 {ratio} 0.9-2.4 [facility] Work Phone: Serum or plasma calcium carley urement (mass/volume)on 02-12-2022 Calcium [Mass/Vol] 9.8 mg/dL 8.5-10.1 [facility] Work Phone: Serum or plasma cholesterol in HDL measurement (mass/volume)on 02-12-2022 Cholesterol in HDL [Mass/Vol] 40 mg/dL [facility] Work Phone: Comment on above: The drugs N-Acetylcy steine and Metamizole may falsely depress this assay. Reference Range HDL <40 mg/dL Low HDL Cholesterol HDL >or= 60 mg/dL High HDL Cholesterol Serum or plasma cholesterol in VLDL measurement (mass/volume)on 02-12-2022 Cholesterol in VLDL [Mass/Vol] 39 mg/dL 5-40 [facility] Work Phone: Serum or plasma creatinine m easurement (mass/volume)on 02-12-2022 Creatinine [Mass/Vol] 1.31 mg/dL 0.70-1.30 [facility] Work Phone: Comment on above: The validity of the calculated GFR & GFRAA in patients over 70 years has not been determined. Clinical correlation is essential. Serum or plasma ferritin maryjo surement (mass/volume)on 02-12-2022 Ferritin [Mass/Vol] 52 ng/mL 26-388 [facility] Work Phone: Serum or plasma iron saturat ion measurement (mass fraction)on 02-12-2022 Iron saturation [Mass fraction] 13.0 % 15.0-55.0 [facility] Work Phone: Serum or plasma low density lipoprotein (LDL) cholesterol measurement (mass/volume)on 02-12-2022 Cholesterol in LDL [Mass/Vol] 20 mg/dL 0-130 [facility] Work Phone: Serum or plasma urea nitroge n measurement (mass/volume)on 02-12-2022 Urea nitrogen [Mass/Vol] 25 mg/dL 7-18 [facility] Work Phone: Thin prep Papanicolaou smear with manual screeningon 02-12-2022 Thin prep Papanicolaou smear with manual screening 29 U/L 15-37 [facility] Work Phone: Thin prep Papanicolaou smear with manual screening 5 5-15 [facility] Work Phone: Thin prep Papanicolaou smear with manual screening 211.0 mg/L NO RANGE EST. [facility] Work Phone: Urine creatinine measurement (mass/volume)on 02-12-2022 Creatinine (U) [Mass/Vol] 89.20 mg/dL NO RANGE EST. [facility] Work Phone: Whole blood hemoglobin A1c/t otal hemoglobin ratio (mass fraction)on 02-12-2022 HbA1c (Bld) [Mass fraction] 6.1 % 3.8-5.6 [facility] Work Phone: Comment on above: Normal < 5.7 % Predi abetic 5.7 - 6.4 % Diabetic >or= 6.5 % Please note range changes. Glucose Glucometer (BldC) [M ass/Vol]on 01-21-2022 Glucose [Mass/Vol] 158 mg/dL 74-106 [facility] Work Phone: Comment on above: MANAGEMENT OF PATIEN T CARE PER NURSING PROTOCOL Absolute lymphocyte counton 01-06-2022 Lymphocytes Auto (Unsp spec) [#/Vol] 1.93 10*3/uL 0.83-4.51 [facility] Work Phone: Basophil percentageon 2021 Basophils/100 WBC (Bld) 0.3 % 0-1 [facility] Work Phone: Bilirubin [Mass/Vol] 0.60 mg/dL 0.20-1.00 [facility] Work Phone: Comment on above: For patients on eltr ombopag therapy, use of Dimension [place] TBIL is not recommended. Chloride [Moles/Vol] 106 mmol/L 98-107 [facility] Work Phone: Eosinophils/100 WBC (Bld) 3.5 % 0-5 [facility] Work Phone: Glucose [Mass/Vol] 168 mg/dL 74-106 [facility] Work Phone: Comment on above: Fasting Glucose resu lt greater than or equal to 126 mg/dL suggests DIABETES MELLITUS per A.D.A. criteria. Neutrophils (Bld) [#/Vol] 4.0 10*3/uL 2.0-7.7 [facility] Work Phone: Neutrophils/100 WBC (Bld) 56.2 % 47-70 [facility] Work Phone: [phone] Potassium [Moles/Vol] 4.1 mmol/L 3.5-5.1 [facility] Work Phone: Protein [Mass/Vol] 7.2 g/dL 6.4-8.2 [facility] Work Phone: Sodium [Moles/Vol] 140 mmol/L 136-145 [facility] Work Phone: WBC (Bld) [#/Vol] 7.1 10*3/uL 4.4-11.0 [facility] Work Phone: Blood erythrocytes count (nu mber/volume)on 01-06-2022 RBC (Bld) [#/Vol] 4.81 10*6/uL 4.6-6.2 [facility] Work Phone: Blood hemoglobin measurement (mass/volume)on 01-06-2022 Hemoglobin (Bld) [Mass/Vol] 14.0 g/dL 13.0-16.5 [facility] Work Phone: Blood lymphocytes/100 leukoc yteson 01-06-2022 Lymphocytes/100 WBC (Bld) 27.3 % 19-41 [facility] Work Phone: Blood monocytes/100 leukocyt eson 01-06-2022 Monocytes/100 WBC (Bld) 12.3 % 0-10 [facility] Work Phone: Blood platelet mean volumeon 01-06-2022 Platelet mean volume (Bld) [Entitic vol] 10.6 fL 6.2-12.0 [facility] Work Phone: Determination of erythrocyte mean corpuscular volume (MCV)on 01-06-2022 MCV (RBC) [Entitic vol] 92.1 fL 80-94 [facility] Work Phone: Hematocrit Auto (Bld) [Volum e fraction]on 01-06-2022 Hematocrit (Bld) [Volume fraction] 44.3 % 40-54 [facility] Work Phone: Iron measurement (mass/mass) on 01-06-2022 Iron (Unsp spec) [Mass/Mass] 55 ug/dL 65-175 [facility] Work Phone: Laboratory - Chemistry and C hemistry - challengeon 01-06-2022 ALP [Catalytic activity/Vol] 184 U/L 45-117 [facility] Work Phone: ALT [Catalytic activity/Vol] 58 U/L 16-61 [facility] Work Phone: [phone] CO2 [Moles/Vol] 25.0 mmol/L 21.0-32.0 [facility] Work Phone: Globulin (S) [Mass/Vol] 3.7 g/dL 2.2-4.2 [facility] Work Phone: Urea nitrogen/Creatinine [Mass ratio] 18.9 mg/mg 10-20 [facility] Work Phone: Laboratory - Hematology and Cell countson 01-06-2022 Erythrocyte distribution width (RBC) [Entitic vol] 51.3 fL 35.1-43.9 [facility] Work Phone: Erythrocyte distribution width (RBC) [Ratio] 15.1 % 11.6-14.6 [facility] Work Phone: [phone] Immature granulocytes/100 WBC (Bld) 0.400 % 0.0-0.9 [facility] Work Phone: Comment on above: IG% - Immature Granu locytes (promyelocytes, myelocytes and metamyelocytes) > 1% indicates that a LEFT SHIFT is Present. MCH (RBC) [Entitic mass] 29.1 pg 27.0-32.0 [facility] Work Phone: [phone] Nucleated RBC/100 WBC (Bld) [Ratio] 0 % 0-5 [facility] Work Phone: [phone] MCHC Auto (RBC) [Mass/Vol]on 01-06-2022 MCHC (RBC) [Mass/Vol] 31.6 g/dL 32-36 [facility] Work Phone: No Panel Informationon 01-06 Estimated GFR (MDRD) Amer 73 mL/min >60 [facility] Work Phone: [phone] Comment on above: GFR Calc Estimated GFR (MDRD) Non-Af Amer 60 mL/min >60 [facility] Work Phone: Comment on above: Non- GFR Calc Total Iron Binding Capacity 368 ug/dL 250-450 [facility] Work Phone: [phone] Platelets bldon 01-06-2022 Platelets (Bld) [#/Vol] 249 10*3/uL 150-450 [facility] Work Phone: [phone] Serum or plasma albumin carley urement (mass/volume)on 01-06-2022 Albumin [Mass/Vol] 3.5 g/dL 3.2-5.0 [facility] Work Phone: [phone] Serum or plasma albumin/glob ulin mass ratioon 01-06-2022 Albumin/Globulin [Mass ratio] 0.9 {ratio} 0.9-2.4 [facility] Work Phone: Serum or plasma calcium carley urement (mass/volume)on 01-06-2022 Calcium [Mass/Vol] 9.3 mg/dL 8.5-10.1 [facility] Work Phone: Serum or plasma creatinine m easurement (mass/volume)on 01-06-2022 Creatinine [Mass/Vol] 1.27 mg/dL 0.70-1.30 [facility] Work Phone: Comment on above: The validity of the calculated GFR & GFRAA in patients over 70 years has not been determined. Clinical correlation is essential. Serum or plasma ferritin maryjo surement (mass/volume)on 01-06-2022 Ferritin [Mass/Vol] 18 ng/mL 26-388 [facility] Work Phone: Serum or plasma iron saturat ion measurement (mass fraction)on 01-06-2022 Iron saturation [Mass fraction] 14.9 % 15.0-55.0 [facility] Work Phone: Serum or plasma urea nitroge n measurement (mass/volume)on 01-06-2022 Urea nitrogen [Mass/Vol] 24 mg/dL 7-18 [facility] Work Phone: Thin prep Papanicolaou smear with manual screeningon 01-06-2022 Thin prep Papanicolaou smear with manual screening 39 U/L 15-37 [facility] Work Phone: Thin prep Papanicolaou smear with manual screening 9 5-15 [facility] Work Phone: Clinical Summary: Oumou max 12-16-20[facility] [place] Invalid Interpretation Code [facility] Work Phone: Office Visit: New/Est - 1st visit with physician, Rm: 812-16-2021 NEGATED: Highlighted rowxray history of the right shoulder on 09/22/2021 at [email or web address] Invalid Interpretation Code [place] [facility]: Basophil percentageon 2021 WBC (Bld) [#/Vol] 6.5 10*3/uL 4.4-11.0 [facility] Work Phone: Blood erythrocytes count (nu mber/volume)on 12-11-2021 RBC (Bld) [#/Vol] 4.63 10*6/uL 4.6-6.2 [facility] Work Phone: Blood hemoglobin measurement (mass/volume)on 12-11-2021 Hemoglobin (Bld) [Mass/Vol] 13.3 g/dL 13.0-16.5 [facility] Work Phone: Blood platelet mean volumeon 12-11-2021 Platelet mean volume (Bld) [Entitic vol] 10.9 fL 6.2-12.0 [facility] Work Phone: Determination of erythrocyte mean corpuscular volume (MCV)on 12-11-2021 MCV (RBC) [Entitic vol] 89.8 fL 80-94 [facility] Work Phone: Erythrocyte sedimentation ra love 12-11-2021 ESR (Bld) [Velocity] 8 mm/h 0-20 [facility] Work Phone: Hematocrit Auto (Bld) [Volum e fraction]on 12-11-2021 Hematocrit (Bld) [Volume fraction] 41.6 % 40-54 [facility] Work Phone: Laboratory - Hematology and Cell countson 12-11-2021 Erythrocyte distribution width (RBC) [Entitic vol] 48.6 fL 35.1-43.9 [facility] Work Phone: [phone] Erythrocyte distribution width (RBC) [Ratio] 14.7 % 11.6-14.6 [facility] Work Phone: MCH (RBC) [Entitic mass] 28.7 pg 27.0-32.0 [facility] Work Phone: MCHC Auto (RBC) [Mass/Vol]on 12-11-2021 MCHC (RBC) [Mass/Vol] 32.0 g/dL 32-36 [facility] Work Phone: Platelets bldon 12-11-2021 Platelets (Bld) [#/Vol] 242 10*3/uL 150-450 [facility] Work Phone: Serum or plasma C reactive p rotein measurement (mass/volume)on 12-11-2021 CRP [Mass/Vol] mg/L 0.0-3.0 [facility] Work Phone: Comment on above: C-Reactive Protein ( CRP) provides useful information for thediagnosis, therapy and monitoring of inflammatory processesand associated diseases. For the evaluation of Relative Riskfor Cardiovascular Disease, a High Sensitivity CRP (HSCRP)should be ordered. Whole blood hemoglobin A1c/t otal hemoglobin ratio (mass fraction)on 12-11-2021 HbA1c (Bld) [Mass fraction] 6.3 % 3.8-5.6 [facility] Work Phone: Comment on above: Normal < 5.7 % Predi abetic 5.7 - 6.4 % Diabetic >or= 6.5 % Please note range changes. Clinical Summary: Oumou max 11-28-2021 [facility] OP Visit Invalid Interpretation Code [facility] Work Phone: Office Visit: Consult, Rm: 1 on 11-28-2021 NEGATED: Highlighted rowTobacco smoking status Tobacco smoking status Invalid Interpretation Code [facility] Work Phone: NEGATED: Highlighted rowxray history of the Right Shoulder on 05/01/2021 at [facility], of the Right Shoulder on 09/22/2021 at [facility] Invalid Interpretation Code [facility] Work Phone: Absolute lymphocyte counton 11-07-2021 Lymphocytes Auto (Unsp spec) [#/Vol] 1.56 10*3/uL 0.83-4.51 [facility] Work Phone: Basophil percentageon 2021 Basophils/100 WBC (Bld) 0.3 % 0-1 [facility] Work Phone: Bilirubin [Mass/Vol] 0.60 mg/dL 0.20-1.00 [facility] Work Phone: Comment on above: For patients on eltr ombopag therapy, use of Dimension [place] TBIL is not recommended. Chloride [Moles/Vol] 108 mmol/L 98-107 [facility] Work Phone: Cholesterol [Mass/Vol] 90 mg/dL <200 [facility] Work Phone: [phone] Comment on above: <200 mg/dL Desirable 200-240 mg/dL Borderline >240 mg/dL High Risk Eosinophils/100 WBC (Bld) 3.1 % 0-5 [facility] Work Phone: Glucose [Mass/Vol] 138 mg/dL 74-106 [facility] Work Phone: Comment on above: Fasting Glucose resu lt greater than or equal to 126 mg/dL suggests DIABETES MELLITUS per A.D.A. criteria. Neutrophils (Bld) [#/Vol] 4.8 10*3/uL 2.0-7.7 [facility] Work Phone: Neutrophils/100 WBC (Bld) 65.2 % 47-70 [facility] Work Phone: Potassium [Moles/Vol] 4.4 mmol/L 3.5-5.1 [facility] Work Phone: Protein [Mass/Vol] 7.0 g/dL 6.4-8.2 [facility] Work Phone: [phone] Sodium [Moles/Vol] 141 mmol/L 136-145 [facility] Work Phone: Triglyceride [Mass/Vol] 161 mg/dL [facility] Work Phone: Comment on above: The drugs N-Acetylcy steine and Metamizole may falsely depress this assay.Serum Triglycerides Reference Interval Normal <150 mg/dL Borderline high 150 - 199 mg/dL High 200 - 499 mg/dL Very High > or = 500 mg/dL WBC (Bld) [#/Vol] 7.4 10*3/uL 4.4-11.0 [facility] Work Phone: Blood erythrocytes count (nu mber/volume)on 11-07-2021 RBC (Bld) [#/Vol] 4.47 10*6/uL 4.6-6.2 [facility] Work Phone: Blood hemoglobin measurement (mass/volume)on 11-07-2021 Hemoglobin (Bld) [Mass/Vol] 13.0 g/dL 13.0-16.5 [facility] Work Phone: [phone] Blood lymphocytes/100 leukoc yteson 11-07-2021 Lymphocytes/100 WBC (Bld) 21.1 % 19-41 [facility] Work Phone: [phone] Blood monocytes/100 leukocyt eson 11-07-2021 Monocytes/100 WBC (Bld) 10.0 % 0-10 [facility] Work Phone: Blood platelet mean volumeon 11-07-2021 Platelet mean volume (Bld) [Entitic vol] 11.4 fL 6.2-12.0 [facility] Work Phone: Determination of erythrocyte mean corpuscular volume (MCV)on 11-07-2021 MCV (RBC) [Entitic vol] 92.4 fL 80-94 [facility] Work Phone: Hematocrit Auto (Bld) [Volum e fraction]on 11-07-2021 Hematocrit (Bld) [Volume fraction] 41.3 % 40-54 [facility] Work Phone: [phone] Iron measurement (mass/mass) on 11-07-2021 Iron (Unsp spec) [Mass/Mass] 49 ug/dL 65-175 [facility] Work Phone: [phone] Laboratory - Chemistry and C hemistry - challengeon 11-07-2021 ALP [Catalytic activity/Vol] 154 U/L 45-117 [facility] Work Phone: ALT [Catalytic activity/Vol] 34 U/L 16-61 [facility] Work Phone: [phone] CO2 [Moles/Vol] 30.0 mmol/L 21.0-32.0 [facility] Work Phone: Globulin (S) [Mass/Vol] 3.7 g/dL 2.2-4.2 [facility] Work Phone: Urea nitrogen/Creatinine [Mass ratio] 20.4 mg/mg 10-20 [facility] Work Phone: Laboratory - Hematology and Cell countson 11-07-2021 Erythrocyte distribution width (RBC) [Entitic vol] 54.9 fL 35.1-43.9 [facility] Work Phone: [phone] Erythrocyte distribution width (RBC) [Ratio] 16.3 % 11.6-14.6 [facility] Work Phone: [phone] Immature granulocytes/100 WBC (Bld) 0.300 % 0.0-0.9 [facility] Work Phone: Comment on above: IG% - Immature Granu locytes (promyelocytes, myelocytes and metamyelocytes) > 1% indicates that a LEFT SHIFT is Present. MCH (RBC) [Entitic mass] 29.1 pg 27.0-32.0 [facility] Work Phone: Nucleated RBC/100 WBC (Bld) [Ratio] 0 % 0-5 [facility] Work Phone: [phone] MCHC Auto (RBC) [Mass/Vol]on 11-07-2021 MCHC (RBC) [Mass/Vol] 31.5 g/dL 32-36 [facility] Work Phone: No Panel Informationon 11-07 Estimated GFR (MDRD) Amer 83 mL/min >60 [facility] Work Phone: Comment on above: GFR Calc Estimated GFR (MDRD) Non-Af Amer 69 mL/min >60 [facility] Work Phone: Comment on above: Non- GFR Calc Total Iron Binding Capacity 340 ug/dL 250-450 [facility] Work Phone: Platelets bldon 11-07-2021 Platelets (Bld) [#/Vol] 258 10*3/uL 150-450 [facility] Work Phone: Serum or plasma albumin carley urement (mass/volume)on 11-07-2021 Albumin [Mass/Vol] 3.3 g/dL 3.2-5.0 [facility] Work Phone: Serum or plasma albumin/glob ulin mass ratioon 11-07-2021 Albumin/Globulin [Mass ratio] 0.9 {ratio} 0.9-2.4 [facility] Work Phone: Serum or plasma calcium carley urement (mass/volume)on 11-07-2021 Calcium [Mass/Vol] 9.7 mg/dL 8.5-10.1 [facility] Work Phone: Serum or plasma cholesterol in HDL measurement (mass/volume)on 11-07-2021 Cholesterol in HDL [Mass/Vol] 42 mg/dL [facility] Work Phone: Comment on above: The drugs N-Acetylcy steine and Metamizole may falsely depress this assay. Reference Range HDL <40 mg/dL Low HDL Cholesterol HDL >or= 60 mg/dL High HDL Cholesterol Serum or plasma cholesterol in VLDL measurement (mass/volume)on 11-07-2021 Cholesterol in VLDL [Mass/Vol] 32 mg/dL 5-40 [facility] Work Phone: Serum or plasma creatinine m easurement (mass/volume)on 11-07-2021 Creatinine [Mass/Vol] 1.13 mg/dL 0.70-1.30 [facility] Work Phone: Comment on above: The validity of the calculated GFR & GFRAA in patients over 70 years has not been determined. Clinical correlation is essential. Serum or plasma ferritin maryjo surement (mass/volume)on 11-07-2021 Ferritin [Mass/Vol] 21 ng/mL 26-388 [facility] Work Phone: Serum or plasma iron saturat ion measurement (mass fraction)on 11-07-2021 Iron saturation [Mass fraction] 14.4 % 15.0-55.0 [facility] Work Phone: Serum or plasma low density lipoprotein (LDL) cholesterol measurement (mass/volume)on 11-07-2021 Cholesterol in LDL [Mass/Vol] 16 mg/dL 0-130 [facility] Work Phone: [phone] Serum or plasma urea nitroge n measurement (mass/volume)on 11-07-2021 Urea nitrogen [Mass/Vol] 23 mg/dL 7-18 [facility] Work Phone: [phone] Thin prep Papanicolaou smear with manual screeningon 11-07-2021 Thin prep Papanicolaou smear with manual screening 27 U/L 15-37 [facility] Work Phone: [phone] Thin prep Papanicolaou smear with manual screening 3 5-15 [facility] Work Phone: [phone] Whole blood hemoglobin A1c/t otal hemoglobin ratio (mass fraction)on 11-07-2021 HbA1c (Bld) [Mass fraction] 6.0 % 3.8-5.6 [facility] Work Phone: Comment on above: Normal < 5.7 % Predi abetic 5.7 - 6.4 % Diabetic >or= 6.5 % Please note range changes. Basophil percentageon 2021 Bilirubin [Mass/Vol] 0.60 mg/dL 0.20-1.00 [facility] Work Phone: Comment on above: For patients on eltr ombopag therapy, use of Dimension [place] TBIL is not recommended. Chloride [Moles/Vol] 104 mmol/L 98-107 [facility] Work Phone: [phone] Glucose [Mass/Vol] 115 mg/dL 74-106 [facility] Work Phone: [phone] Comment on above: Fasting Glucose resu lt from 100 to 125 mg/dL suggests IMPAIRED HOMEOSTASIS per A.D.A. criteria. Potassium [Moles/Vol] 4.1 mmol/L 3.5-5.1 [facility] Work Phone: [phone] Protein [Mass/Vol] 7.2 g/dL 6.4-8.2 [facility] Work Phone: [phone] Sodium [Moles/Vol] 138 mmol/L 136-145 [facility] Work Phone: Laboratory - Chemistry and C hemistry - challengeon 09-24-2021 ALP [Catalytic activity/Vol] 140 U/L 45-117 [facility] Work Phone: ALT [Catalytic activity/Vol] 33 U/L 16-61 [facility] Work Phone: CK [Catalytic activity/Vol] 41 U/L 39-308 [facility] Work Phone: CO2 [Moles/Vol] 27.0 mmol/L 21.0-32.0 [facility] Work Phone: Globulin (S) [Mass/Vol] 3.8 g/dL 2.2-4.2 [facility] Work Phone: Magnesium [Mass/Vol] 1.7 mg/dL 1.6-2.6 [facility] Work Phone: Urea nitrogen/Creatinine [Mass ratio] 19.8 mg/mg 10-20 [facility] Work Phone: No Panel Informationon 09-24 Estimated GFR (MDRD) Amer 73 mL/min >60 [facility] Work Phone: Comment on above: GFR Calc Estimated GFR (MDRD) Non-Af Amer 61 mL/min >60 [facility] Work Phone: Comment on above: Non- GFR Calc Serum or plasma albumin carley urement (mass/volume)on 09-24-2021 Albumin [Mass/Vol] 3.4 g/dL 3.2-5.0 [facility] Work Phone: Serum or plasma albumin/glob ulin mass ratioon 09-24-2021 Albumin/Globulin [Mass ratio] 0.9 {ratio} 0.9-2.4 [facility] Work Phone: Serum or plasma calcium carley urement (mass/volume)on 09-24-2021 Calcium [Mass/Vol] 9.3 mg/dL 8.5-10.1 [facility] Work Phone: Serum or plasma creatinine m easurement (mass/volume)on 09-24-2021 Creatinine [Mass/Vol] 1.26 mg/dL 0.70-1.30 [facility] Work Phone: Comment on above: The validity of the calculated GFR & GFRAA in patients over 70 years has not been determined. Clinical correlation is essential. Serum or plasma ferritin maryjo surement (mass/volume)on 09-24-2021 Ferritin [Mass/Vol] 15 ng/mL 26-388 [facility] Work Phone: [phone] Serum or plasma urea nitroge n measurement (mass/volume)on 09-24-2021 Urea nitrogen [Mass/Vol] 25 mg/dL 7-18 [facility] Work Phone: [phone] Thin prep Papanicolaou smear with manual screeningon 09-24-2021 Thin prep Papanicolaou smear with manual screening 22 U/L 15-37 [facility] Work Phone: [phone] Thin prep Papanicolaou smear with manual screening 7 5-15 [facility] Work Phone: [phone] Absolute lymphocyte counton 09-04-2021 Lymphocytes Auto (Unsp spec) [#/Vol] 1.01 10*3/uL 0.83-4.51 [facility] Work Phone: [phone] Basophil percentageon 2020 Eosinophils/100 WBC (Bld) 0.4 % 0-5 [facility] Work Phone: [phone] Neutrophils (Bld) [#/Vol] 7.0 10*3/uL 2.0-7.7 [facility] Work Phone: [phone] WBC (Bld) [#/Vol] 9.2 10*3/uL 4.4-11.0 [facility] Work Phone: [phone] Blood erythrocytes count (nu mber/volume)on 09-04-2021 RBC (Bld) [#/Vol] 3.52 10*6/uL 4.6-6.2 [facility] Work Phone: [phone] Blood hemoglobin measurement (mass/volume)on 09-04-2021 Hemoglobin (Bld) [Mass/Vol] 9.9 g/dL 13.0-16.5 [facility] Work Phone: [phone] Blood lymphocytes/100 leukoc yteson 09-04-2021 Lymphocytes/100 WBC (Bld) 10.9 % 19-41 [facility] Work Phone: [phone] monocytes/100 leukocyt eson 09-04-2021 Monocytes/100 WBC (Bld) 12.0 % 0-10 [facility] Work Phone: [phone] Blood platelet mean volumeon 09-04-2021 Platelet mean volume (Bld) [Entitic vol] 10.4 fL 6.2-12.0 [facility] Work Phone: [phone] Determination of erythrocyte mean corpuscular volume (MCV)on 09-04-2021 MCV (RBC) [Entitic vol] 88.9 fL 80-94 [facility] Work Phone: [phone] Glucose Glucometer (dC) [M ass/Vol]on 09-04-2021 Glucose [Mass/Vol] 177 mg/dL 70-110 [facility] Work Phone: [phone] Comment on above: MANAGEMENT OF PATIEN T CARE PER NURSING PROTOCOL Hematocrit Auto (Bld) [Volum e fraction]on 09-04-2021 Hematocrit (Bld) [Volume fraction] 31.3 % 40-54 [facility] Work Phone: [phone] Laboratory - Hematology and Cell countson 09-04-2021 Basophils/100 WBC (Unsp spec) 0.1 % 0-1 [facility] Work Phone: [phone] Erythrocyte distribution width (RBC) [Entitic vol] 45.4 fL 35.1-43.9 [facility] Work Phone: [phone] Erythrocyte distribution width (RBC) [Ratio] 14.2 % 11.6-14.6 [facility] Work Phone: [phone] Immature granulocytes/100 WBC (Bld) 0.500 % 0.0-0.9 [facility] Work Phone: Comment on above: IG% - Immature Granu locytes (promyelocytes, myelocytes and metamyelocytes) > 1% indicates that a LEFT SHIFT is Present. MCH (RBC) [Entitic mass] 28.1 pg 27.0-32.0 [facility] Work Phone: Neutrophils/100 WBC (Bld) 76.1 % 47-70 [facility] Work Phone: [phone] Nucleated RBC/100 WBC (Bld) [Ratio] 0 % 0-5 [facility] Work Phone: [phone] MCHC Auto (RBC) [Mass/Vol]on 09-04-2021 MCHC (RBC) [Mass/Vol] 31.6 g/dL 32-36 [facility] Work Phone: [phone] Platelets bldon 09-04-2021 Platelets (Bld) [#/Vol] 178 10*3/uL 150-450 [facility] Work Phone: Basophil percentageon 2020 Chloride [Moles/Vol] 115 mmol/L 98-107 [facility] Work Phone: [phone] Glucose [Mass/Vol] 161 mg/dL 74-106 [facility] Work Phone: [phone] Comment on above: Fasting Glucose resu lt greater than or equal to 126 mg/dL suggests DIABETES MELLITUS per A.D.A. criteria.Please note revised GLUCOSE reference range effective 2017. Potassium [Moles/Vol] 3.8 mmol/L 3.5-5.1 [facility] Work Phone: [phone] Sodium [Moles/Vol] 142 mmol/L 136-145 [facility] Work Phone: [phone] Laboratory - Chemistry and C hemistry - challengeon 09-03-2021 CO2 [Moles/Vol] 19.0 mmol/L 21.0-32.0 [facility] Work Phone: [phone] Urea nitrogen/Creatinine [Mass ratio] 13.6 mg/mg 10-20 [facility] Work Phone: [phone] Panel Informationon 09-03 Estimated Creatinine Clearance Calc 58.77 ml/min [facility] Work Phone: Estimated GFR (MDRD) Amer 79 mL/min >60 [facility] Work Phone: Comment on above: GFR Calc Estimated GFR (MDRD) Non-Af Amer 65 mL/min >60 [facility] Work Phone: Comment on above: Non- GFR Calc Serum or plasma calcium carley urement (mass/volume)on 09-03-2021 Calcium [Mass/Vol] 8.2 mg/dL 8.5-10.1 [facility] Work Phone: Serum or plasma creatinine m easurement (mass/volume)on 09-03-2021 Creatinine [Mass/Vol] 1.18 mg/dL 0.70-1.30 [facility] Work Phone: Comment on above: The validity of the calculated GFR & GFRAA in patients over 70 years has not been determined. Clinical correlation is essential. Serum or plasma urea nitroge n measurement (mass/volume)on 09-03-2021 Urea nitrogen [Mass/Vol] 16 mg/dL 7-18 [facility] Work Phone: Thin prep Papanicolaou smear with manual screeningon 09-03-2021 Thin prep Papanicolaou smear with manual screening 8 5-15 [facility] Work Phone: Basophil percentageon 2020 Bilirubin [Mass/Vol] 0.70 mg/dL 0.20-1.00 [facility] Work Phone: Comment on above: For patients on eltr ombopag therapy, use of Dimension [place] TBIL is not recommended. Protein [Mass/Vol] 6.9 g/dL 6.4-8.2 [facility] Work Phone: Laboratory - Chemistry and C hemistry - challengeon 09-02-2021 ALP [Catalytic activity/Vol] 148 U/L 45-117 [facility] Work Phone: ALT [Catalytic activity/Vol] 26 U/L 16-61 [facility] Work Phone: Globulin (S) [Mass/Vol] 3.9 g/dL 2.2-4.2 [facility] Work Phone: Lipase [Catalytic activity/Vol] 51 U/L 73-393 [facility] Work Phone: Review by pathologiston 08-07 Pathologist review Noah (Unsp spec) [Interp] Reviewed [facility] Work Phone: Comment on above: Previous reported re sult: Nata arnaldo Edited by: [email or web address] on 09/03/21:1010Neutrophilic leukocytosis.Clinical correlation necessary.Dimitrios Ashraf M.D. 09/03/21 AMENDED REPORT 09/03/21 1010 PATH REV previously reported as: January arnaldo Serum or plasma albumin carley urement (mass/volume)on 09-02-2021 Albumin [Mass/Vol] 3.0 g/dL 3.2-5.0 [facility] Work Phone: Serum or plasma albumin/glob ulin mass ratioon 09-02-2021 Albumin/Globulin [Mass ratio] 0.8 {ratio} 0.9-2.4 [facility] Work Phone: Thin prep Papanicolaou smear with manual screeningon 09-02-2021 Thin prep Papanicolaou smear with manual screening 20 U/L 15-37 [facility] Work Phone: Whole blood hemoglobin A1c/t otal hemoglobin ratio (mass fraction)on 09-02-2021 HbA1c (Bld) [Mass fraction] 6.1 % 3.8-5.6 [facility] Work Phone: Comment on above: Normal [...] and there was good flow as well. child care centre director was administered and cross-clamp was removed. A [...] with closure. The sternum was reapproximated with [id number] wires. The overlying tissues were closed in multiple layers. The patient was transferred to the heart and lung unit in serious, but stable condition. [employer] Job ID: [id number] Colton Marroquin MD DOD:12/25/2019 02:20 P EE/dsk DOT:12/25/2019 04:10 P Job Number: [id number] Document Number: [id number] cc: Colton Marroquin MD [facility] [address] [address] Normal [facility] Basic Metabolic Panelon 04- Anion gap [Moles/Vol] 6 Normal [facility] Comment on above: Performed By: #### B GLU #### [address] [address] Calcium [Mass/Vol] 8.5 mg/dL Normal 8.4-10.4 [facility] Comment on above: Performed By: #### B GLU #### [address] CO2 [Moles/Vol] 26 mmol/L Normal 22-30 [facility] Comment on above: Performed By: #### B GLU #### [address] [address] [address] [place], [place] Creatinine [Mass/Vol] 0.90 mg/dL Normal 0.52-1.25 [facility] Comment on above: Performed By: #### B GLU #### [address] [address] [address] [place], [place] GFR/1.73 sq M predicted among blacks MDRD (S/P/Bld) [Vol rate/Area] mL/min/{1.73_m2} Normal >60 [facility] Comment on above: Performed By: #### B GLU #### [address] [address] [address] [place], [place] GFR/1.73 sq M predicted among non-blacks MDRD (S/P/Bld) [Vol rate/Area] mL/min/{1.73_m2} Normal >60 [facility] Comment on above: Result Comment: Sour ce- MDRD equation with creatinine calibration to IDMS(NKDEP) eGFR not recommended for drug dose adjustment Performed By: #### B GLU #### [address] [address] [address] [place], [place] Glucose [Mass/Vol] 122 mg/dL High 70-100 [facility] Comment on above: Performed By: #### B GLU #### [address] [address] [address] [place], [place] Urea nitrogen [Mass/Vol] 20 mg/dL Normal 7-20 [facility] Comment on above: Performed By: #### B GLU #### [address] [address] [address] [place], [place] Chloride [Moles/Vol] 107 mmol/L Normal 98-107 [facility] Comment on above: Performed By: #### B GLU #### [address] [address] [place], [place] Potassium [Moles/Vol] 3.2 mmol/L Low 3.5-5.1 [facility] Comment on above: Performed By: #### B GLU #### [facility] [address] [place] [address] Sodium [Moles/Vol] 138 mmol/L Normal 135-145 [facility] Comment on above: Performed By: #### B GLU #### [facility] [address] [place] [address] Anion gap [Moles/Vol] 6 mmol/L [place], [place] Comment on above: Test Performed by [facility], [place] [address] Calcium [Mass/Vol] 8.5 mg/dL 8.4 - 10. 4 mg/dL [place], [place] Comment on above: Test Performed by [facility], [place] [address] Chloride [Moles/Vol] 107 mmol/L 98 - 107 mmol/L [place], [place] Comment on above: Test Performed by [facility], [place] [address] CO2 [Moles/Vol] 26 mmol/L 22 - 30 mmol/L [place], [place] Comment on above: Test Performed by [facility], [place] [address] Creatinine [Mass/Vol] 0.9 mg/dL 0.52 - 1.25 mg/dL [place], [place] Comment on above: Test Performed by [facility], [place] [address] EGFR IF NonAfrican [place] >60.0 >60 mL/min [place], [place] Comment on above: Test Performed by [facility], [place] [address] Source- MDRD equation with creatinine calibration to IDMS(NKDEP) eGFR not recommended for drug dose adjustment GFR/1.73 sq M predicted among blacks MDRD (S/P/Bld) [Vol rate/Area] mL/min/{1.73_m2} >60 mL/min [place], [place] Comment on above: Test Performed by [facility], [place] [address] Glucose [Mass/Vol] 122 mg/dL High 70 - 100 mg/dL [place], [place] Comment on above: Test Performed by [facility], [place] [address] Interpretation and review of laboratory results Abnormal [place], [place] Potassium [Moles/Vol] 3.2 mmol/L Low 3.5 - 5.1 mmol/L [place] Comment on above: Test Performed by [facility], [place] [address] Sodium [Moles/Vol] 138 mmol/L 135 - 145 mmol/L [place], [place] Urea nitrogen [Mass/Vol] 20 mg/dL 7 - 20 mg/dL [place] Comment on above: Test Performed by [facility], [facility] [place] [address] Test Performed by [facility], [address] [place] [address] [place], [place] CBCon 12-20-2019 Erythrocyte distribution width (RBC) [Ratio] 15.1 % High 11.5 - 14.5 % [place] Comment on above: Test Performed by [facility], [place] [address] Hematocrit (Bld) [Volume fraction] 27.2 % Low 40 - 52 % [place], [place] Comment on above: Test Performed by [facility], [place] [address] Hemoglobin (Bld) [Mass/Vol] 9.1 g/dL Low 13 - 18 g/dL [place], [place] Comment on above: Test Performed by [facility], [place] [address] Interpretation and review of laboratory results Abnormal [place] MCH (RBC) [Entitic mass] 31.6 pg 26 - 34 pg [place] Comment on above: Test Performed by [facility], [place] [address] MCHC (RBC) [Mass/Vol] 33.5 % 32 - 36 % [place], [place] Comment on above: Test Performed by [facility], [place] [address] MCV (RBC) [Entitic vol] 94.4 fL 80 - 98 fL [place], [place] Comment on above: Test Performed by [facility], [address] [facility] [place] [place] [address] Platelet mean volume (Bld) [Entitic vol] 7.6 fL 7.4 - 10.4 fL [place], [place] Comment on above: Test Performed by [facility], [address], [place] [address] Platelets (Bld) [#/Vol] 244 10*3/uL 140 - 440 10*3/uL [place] Comment on above: Test Performed by [facility], [address] [facility] [place] [place] [address] RBC (Bld) [#/Vol] 2.89 10*6/uL Low 4.4 - 5.9 10*6/uL [place] Comment on above: Test Performed by [facility], [facility] [place] [place] [address] WBC (Bld) [#/Vol] 7.9 10*3/uL 3.6 - 10.7 10*3/uL [place] Test Performed by [facility], [facility] [place] [place] [address] [place], [place] CR Chest Portableon 12-20-19 20 CR Chest Portable Patient Name: DOUGLAS SIMON Jr Diagnostic Radiology Exam Date/Time 12/20/2019 06:48:05 EDT Exam CR Chest Portable Ordering Physician COLTON MARROQUIN Accession Number [id number] CPT4 Codes 00580 () Reason For Exam SOB Report HISTORY: Postop CABG Portable AP chest at 0528 hours is unchanged since last exam 24 hours ago Report Dictated on Workstation: [id number] Final Dictated: 12/20/2019 5:43 am Dictating Physician: MD ENNIS WILLIAM Signed Date and Time: 12/20/2019 5:44 am Signed by: MD ENNIS WILLIAM Transcribed Date and Time: 12/20/2019 5:43 Normal [facility] Glucose,Bedsideon 12-20-2019 Glucose [Mass/Vol] 136 mg/dL High 70-100 [facility] Comment on above: Result Comment: Test performed by glucose meter. Results may be 10%-15% lower than serum/plasma values. (CLIA ID [id number]) Performed By: #### B GLU ####[facility] [address] [place], [place] Glucose [Mass/Vol] 106 mg/dL High 70-100 [facility] Comment on above: Result Comment: Test performed by glucose meter. Results may be 10%-15% lower than serum/plasma values. (CLIA ID [id number]) Performed By: #### B GLU ####[facility] [address] [place], [place] Hemogramon 12-20-2019 Erythrocyte distribution width (RBC) [Ratio] 15.1 % High 11.5-14.5 [facility] Comment on above: Performed By: #### B GLU #### [facility] [address] [place], [place] Hematocrit (Bld) [Volume fraction] 27.2 % Low 40.0-52.0 [facility] Comment on above: Performed By: #### B GLU #### [facility] [address] [place], [place] Hemoglobin (Bld) [Mass/Vol] 9.1 g/dL Low 13.0-18.0 [facility] Comment on above: Performed By: #### B GLU #### [facility] [address] [place], [place] MCH (RBC) [Entitic mass] 31.6 pg Normal 26.0-34.0 [facility] Comment on above: Performed By: #### B GLU #### [facility] [address] [place], [place] MCHC (RBC) [Mass/Vol] 33.5 % Normal 32.0-36.0 [facility] Comment on above: Performed By: #### B GLU #### [facility] [address] [place], [place] MCV (RBC) [Entitic vol] 94.4 fL Normal 80.0-98.0 [facility] Comment on above: Performed By: #### B GLU #### [facility] [address] [place] [address] Platelet mean volume (Bld) [Entitic vol] 7.6 fL Normal 7.4-10.4 [facility] Comment on above: Performed By: #### B GLU #### [facility] [address] [place] [address] Platelets (Bld) [#/Vol] 244 10*3/uL Normal 140-440 [facility] Comment on above: Performed By: #### B GLU #### [facility] [address] [place] [address] RBC (Bld) [#/Vol] 2.89 10*6/uL Low 4.40-5.90 [facility] Comment on above: Performed By: #### B GLU #### [facility] [address] [place] [address] WBC (Bld) [#/Vol] 7.9 10*3/uL Normal 3.6-10.7 [facility] Comment on above: Performed By: #### B GLU #### [facility] [address] [place] [address] POCT Glucoseon 12-20-2019 Glucose [Mass/Vol] 136 mg/dL High 70 - 100 mg/dL [place], [place] Comment on above: Test performed by gl ucose meter. Results may be 10%-15% lower than serum/plasma values. (CLIA ID [id number]) Interpretation and review of laboratory results Abnormal [place], [place] Test Performed by [facility], [place] [address] [place] Glucose [Mass/Vol] 106 mg/dL High 70 - 100 mg/dL [place], [place] Comment on above: Test performed by gl ucose meter. Results may be 10%-15% lower than serum/plasma values. (CLIA ID [id number]) Interpretation and review of laboratory results Abnormal [place], [place] Test Performed by [facility], [place] [address] [place], [place] Potassiumon 12-20-2019 Potassium [Moles/Vol] 3.3 mmol/L Low 3.5-5.1 [facility] Comment on above: Performed By: #### K 3 ####[address] [place] [employer] [place] Interpretation and review of laboratory results Abnormal [place], [place] Potassium [Moles/Vol] 3.3 mmol/L Low 3.5 - 5.1 mmol/L [facility] [place] Test Performed by [address] [address] [place], [place] Potassium [Moles/Vol] 3.3 mmol/L Low 3.5-5.1 [facility] Comment on above: Performed By: #### K 3 ####[address] Interpretation and review of laboratory results Abnormal [place] Potassium [Moles/Vol] 3.3 mmol/L Low 3.5 - 5.1 mmol/L [place] Test Performed by [id number] [place] [address] XR CHEST PORTABLEon 12-20-19 Patient Name: DOUGLAS SIMON Jr ---Diagnostic Radiology--- Exam Date/Time 12/20/2019 06:48:05 EDT Exam CR Chest Portable Ordering Physician COLTON MARROQUIN Accession Number [id number] CPT4 Codes 25781 () Reason For Exam SOB Report HISTORY: Postop CABG Portable AP chest at 0528 hours is unchanged since last exam 24 hours ago Report Dictated on Workstation: [id number] --- Final --- Dictated: 12/20/2019 5:43 am Dictating Physician: MD ENNIS WILLIAM Signed Date and Time: 12/20/2019 5:44 am Signed by: MD ENNIS WILLIAM Transcribed Date and Time: 12/20/2019 5:43 [facility] [place], [facility] Incoming Radiology Results From [facility] - 12/20/2019 6:48 AM EDT Patient Name: DOUGLAS CALLAWAY Jr ---Diagnostic Radiology--- Exam Date/Time 12/20/2019 06:48:05 EDT Exam CR Chest Portable Ordering Physician COLTON MARROQUIN Accession Number [id number] CPT4 Codes 85981 () Reason For Exam SOB Report HISTORY: Postop CABG Portable AP chest at 0528 hours is unchanged since last exam 24 hours ago Report Dictated on Workstation: [id number] --- Final --- Dictated: 12/20/2019 5:43 am Dictating Physician: MD ENNIS WILLIAM Signed Date and Time: 12/20/2019 5:44 am Signed by: MD ENNIS WILLIAM Transcribed Date and Time: 12/20/2019 5:43 [place], [place] Basic Metabolic Panelon 12-05 Anion gap [Moles/Vol] 9 Normal [facility] Comment on above: Performed By: #### B GLU #### [place] [address] [address] [place], [place] Calcium [Mass/Vol] 8.6 mg/dL Normal 8.4-10.4 [facility] Comment on above: Performed By: #### B GLU #### [place] [address] [address] [place], [place] CO2 [Moles/Vol] 25 mmol/L Normal 22-30 [facility] Comment on above: Performed By: #### B GLU #### [address] [address] [place] [address] Glucose [Mass/Vol] 168 mg/dL High 70-100 [facility] Comment on above: Performed By: #### B GLU #### [address] [address] [place] [address] Urea nitrogen [Mass/Vol] 23 mg/dL High 7-20 [facility] Comment on above: Performed By: #### B GLU #### [place] [address] [place] [place], [place] Creatinine [Mass/Vol] 0.98 mg/dL Normal 0.52-1.25 [facility] Comment on above: Performed By: #### B GLU #### [place] [address] [address] [place], [place] GFR/1.73 sq M predicted among blacks MDRD (S/P/Bld) [Vol rate/Area] mL/min/{1.73_m2} Normal >60 [facility] Comment on above: Performed By: #### B GLU #### [place] [address] [place] [address] GFR/1.73 sq M predicted among non-blacks MDRD (S/P/Bld) [Vol rate/Area] mL/min/{1.73_m2} Normal >60 [facility] Comment on above: Result Comment: Sour ce- MDRD equation with creatinine calibration to IDMS(NKDEP) eGFR not recommended for drug dose adjustment Performed By: #### B GLU #### [place] [address] [address] [place], [place] Chloride [Moles/Vol] 103 mmol/L Normal 98-107 [facility] Comment on above: Performed By: #### B GLU #### [place] [address] [address] [place], [place] Potassium [Moles/Vol] 3.1 mmol/L Low 3.5-5.1 [facility] Comment on above: Performed By: #### B GLU #### [place] [address] [address] [place], [place] Sodium [Moles/Vol] 137 mmol/L Normal 135-145 [facility] Comment on above: Performed By: #### B GLU #### [place] [address] [place] [place], [place] Anion gap [Moles/Vol] 9 mmol/L [place], [place] Comment on above: Test Performed by [facility], [address] [place] [address] Calcium [Mass/Vol] 8.6 mg/dL 8.4 - 10. 4 mg/dL [place], [place] Comment on above: Test Performed by [facility], [address] [place] [address] Chloride [Moles/Vol] 103 mmol/L 98 - 107 mmol/L [place], [place] Comment on above: Test Performed by [facility], [address] [place] [address] CO2 [Moles/Vol] 25 mmol/L 22 - 30 mmol/L [place], [place] Comment on above: Test Performed by [facility], [address] [place] [address] Creatinine [Mass/Vol] 0.98 mg/dL 0.52 - 1.25 mg/dL [place], [place] Comment on above: Test Performed by [facility], [address] [place] [address] EGFR IF NonAfrican Palauan >60.0 >60 mL/min [place], [place] Comment on above: Test Performed by [facility], [address] [place] [address] Source- MDRD equation with creatinine calibration to IDMS(NKDEP) eGFR not recommended for drug dose adjustment GFR/1.73 sq M predicted among blacks MDRD (S/P/Bld) [Vol rate/Area] mL/min/{1.73_m2} >60 mL/min [place], [place] Comment on above: Test Performed by [facility], [address] [place] [address] Glucose [Mass/Vol] 168 mg/dL High 70 - 100 mg/dL [place], [place] Comment on above: Test Performed by [facility], [address] [place] [address] Interpretation and review of laboratory results Abnormal [place] Potassium [Moles/Vol] 3.1 mmol/L Low 3.5 - 5.1 mmol/L [place], [place] Comment on above: Test Performed by [facility], [address] [place] [address] Sodium [Moles/Vol] 137 mmol/L 135 - 145 mmol/L [place], [place] Urea nitrogen [Mass/Vol] 23 mg/dL High 7 - 20 mg/dL [place], [place] Comment on above: Test Performed by [facility], [address] [place] [address] Test Performed by [facility], [address] [place] [address] [place] Anion gap [Moles/Vol] 7 Normal [facility] Comment on above: Performed By: #### T SGL #### [facility] [address] [place] [place] [address] [facility] #### LRC #### [facility] [address] [place] [address] Calcium [Mass/Vol] 8.7 mg/dL Normal 8.4-10.4 [facility] Comment on above: Performed By: #### T SGL #### [facility] [address] [place] [place] [address] [facility] #### LRC #### [facility] [address] [place] [address] CO2 [Moles/Vol] 25 mmol/L Normal 22-30 [facility] Comment on above: Performed By: #### T SGL #### [facility] [address] [facility] [address] [facility] #### LRC #### [place] [address] [place] [address] Glucose [Mass/Vol] 144 mg/dL High 70-100 [facility] Comment on above: Performed By: #### T SGL #### [facility] [address] [address] [facility] #### LRC #### [place] [address] [place] [address] Urea nitrogen [Mass/Vol] 30 mg/dL High 7-20 [facility] Comment on above: Performed By: #### T SGL #### [facility] [address] [address] [facility] #### LRC #### [place] [address] [address] Creatinine [Mass/Vol] 1.10 mg/dL Normal 0.52-1.25 [facility] Comment on above: Performed By: #### T SGL #### [facility] [address] [place] [address] [facility] #### LRC #### [facility] [address] [place] [address] GFR/1.73 sq M predicted among blacks MDRD (S/P/Bld) [Vol rate/Area] mL/min/{1.73_m2} Normal >60 [facility] Comment on above: Performed By: #### T SGL #### [address] [place] [place] [address] [facility] #### LRC #### [place] [place] [address] GFR/1.73 sq M predicted among non-blacks MDRD (S/P/Bld) [Vol rate/Area] mL/min/{1.73_m2} Normal >60 [facility] Comment on above: Result Comment: Sour ce- MDRD equation with creatinine calibration to IDMS(NKDEP) eGFR not recommended for drug dose adjustment Performed By: #### T SGL #### [place] [place] [address] [facility] #### LRC #### [place] [place] [address] Chloride [Moles/Vol] 105 mmol/L Normal 98-107 [facility] Comment on above: Performed By: #### T SGL #### [address] [place] [address] [facility] #### LRC #### [place] [place] [address] Potassium [Moles/Vol] 3.4 mmol/L Low 3.5-5.1 [facility] Comment on above: Performed By: #### T SGL #### [address] [place] [place] [address] [facility] #### LRC #### [place] [place] [address] Sodium [Moles/Vol] 137 mmol/L Normal 135-145 [facility] Comment on above: Performed By: #### T SGL #### [place] [place] [address] [facility] #### LRC #### [place] [place] [address] Anion gap [Moles/Vol] 7 mmol/L [facility] Comment on above: Test Performed by [place] [address] [place] [address] Calcium [Mass/Vol] 8.7 mg/dL 8.4 - 10. 4 mg/dL [place], [place] Comment on above: Test Performed by [facility], [place] [address] Chloride [Moles/Vol] 105 mmol/L 98 - 107 mmol/L [place] Comment on above: Test Performed by [facility], [place] [address] CO2 [Moles/Vol] 25 mmol/L 22 - 30 mmol/L [place], [place] Comment on above: Test Performed by [facility], [facility] [place] [address] Creatinine [Mass/Vol] 1.1 mg/dL 0.52 - 1.25 mg/dL [place], [place] Comment on above: Test Performed by [facility], [facility] [place] [address] EGFR IF NonAfrican Palauan >60.0 >60 mL/min [place] Comment on above: Test Performed by [facility], [facility] [place] [address] Source- MDRD equation with creatinine calibration to IDMS(NKDEP) eGFR not recommended for drug dose adjustment GFR/1.73 sq M predicted among blacks MDRD (S/P/Bld) [Vol rate/Area] mL/min/{1.73_m2} >60 mL/min [place], [place] Comment on above: Test Performed by [facility], [place] [address] Glucose [Mass/Vol] 144 mg/dL High 70 - 100 mg/dL [place], [place] Comment on above: Test Performed by [facility], [facility] [place] [address] Interpretation and review of laboratory results Abnormal [place] Potassium [Moles/Vol] 3.4 mmol/L Low 3.5 - 5.1 mmol/L [place], [place] Comment on above: Test Performed by [facility], [place] [address] Sodium [Moles/Vol] 137 mmol/L 135 - 145 mmol/L [place] Urea nitrogen [Mass/Vol] 30 mg/dL High 7 - 20 mg/dL [place] Comment on above: Test Performed by [facility], [facility] [place] [address] Test Performed by [facility], [facility] [place] [address] [place] CBCon 12-19-2019 Erythrocyte distribution width (RBC) [Ratio] 14.4 % 11.5 - 14.5 % [place], [place] Comment on above: Test Performed by [facility], [facility] [place] [address] Hematocrit (Bld) [Volume fraction] 22.3 % Low 40 - 52 % [place], [place] Comment on above: Test Performed by [facility], [facility] [place] [address] Hemoglobin (Bld) [Mass/Vol] 7.4 g/dL Low 13 - 18 g/dL [place], [place] Comment on above: Test Performed by [facility], [place] [address] Interpretation and review of laboratory results Abnormal [place] MCH (RBC) [Entitic mass] 32.3 pg 26 - 34 pg [place], [place] Comment on above: Test Performed by [facility], [place] [address] MCHC (RBC) [Mass/Vol] 33.3 % 32 - 36 % [place], [place] Comment on above: Test Performed by [facility], [place] [address] MCV (RBC) [Entitic vol] 96.9 fL 80 - 98 fL [place], [place] Comment on above: Test Performed by [facility], [facility] [place] [address] Platelet mean volume (Bld) [Entitic vol] 8.2 fL 7.4 - 10.4 fL [place], [place] Comment on above: Test Performed by [facility], [place] [address] Platelets (Bld) [#/Vol] 215 10*3/uL 140 - 440 10*3/uL [place], [place] Comment on above: Test Performed by [facility], [address] [place] [address] RBC (Bld) [#/Vol] 2.30 10*6/uL Low 4.4 - 5.9 10*6/uL [place], [place] Comment on above: Test Performed by [facility], [address] [place] [address] WBC (Bld) [#/Vol] 7.5 10*3/uL 3.6 - 10.7 10*3/uL [place] Test Performed by [facility], [place] [address] [place], [place] CR Chest Portableon 12-19-19 20 CR Chest Portable Patient Name: DOUGLAS SIMON Jr Diagnostic Radiology Exam Date/Time 12/19/2019 06:16:45 EDT Exam CR Chest Portable Ordering Physician COLTON MARROQUIN Accession Number [id number] CPT4 Codes 14351 () Reason For Exam post op open [...] Transcribed Date and Time: 12/19/2019 6:30 Normal [facility] Glucose,Bedsideon 12-19-2019 Glucose [Mass/Vol] 139 mg/dL High 70-100 [facility] Comment on above: Result Comment: Test performed by glucose meter. Results may be 10%-15% lower than serum/plasma values. (CLIA ID [id number]) Performed By: #### B GLU #### [facility] [address] [place] [address] Glucose [Mass/Vol] 186 mg/dL High 70-100 [facility] Comment on above: Result Comment: Test performed by glucose meter. Results may be 10%-15% lower than serum/plasma values. (CLIA ID [id number]) Performed By: #### B GLU #### [facility] [address] [place] [address] Glucose [Mass/Vol] 208 mg/dL High 70-100 [facility] Comment on above: Result Comment: Test performed by glucose meter. Results may be 10%-15% lower than serum/plasma values. (CLIA ID [id number]) Performed By: #### B GLU #### [facility] [address] [place] [address] Glucose [Mass/Vol] 232 mg/dL High 70-100 [facility] Comment on above: Result Comment: Test performed by glucose meter. Results may be 10%-15% lower than serum/plasma values. (CLIA ID [id number]) Performed By: #### B GLU #### [place] [place] [address] Hemoglobin AND Hematocriton 12-19-2019 Hematocrit (Bld) [Volume fraction] 27.1 % Low 40.0-52.0 [facility] Comment on above: Performed By: #### B GLU #### [place] [place] [address] Hemoglobin (Bld) [Mass/Vol] 9.5 g/dL Low 13.0-18.0 [facility] Comment on above: Performed By: #### B GLU #### [place] [address] [place] [address] Hemoglobin and Hematocrit, B loodon 12-19-2019 Hematocrit (Bld) [Volume fraction] 27.1 % Low 40 - 52 % [place], [place] Comment on above: Test Performed by [facility], [place] [address] Hemoglobin (Bld) [Mass/Vol] 9.5 g/dL Low 13 - 18 g/dL [place] Interpretation and review of laboratory results Abnormal [place] Test Performed by [facility], [address] [place] [address] [place], [place] Hemogramon 12-19-2019 Erythrocyte distribution width (RBC) [Ratio] 14.4 % Normal 11.5-14.5 [facility] Comment on above: Performed By: #### T SGL #### [place] [address] [place] [address] [facility] #### LRC #### [place] [address] [place] [address] Hematocrit (Bld) [Volume fraction] 22.3 % Low 40.0-52.0 [facility] Comment on above: Performed By: #### T SGL #### [place] [address] [place] [address] [facility] #### LRC #### [place] [address] [place] [address] Hemoglobin (Bld) [Mass/Vol] 7.4 g/dL Low 13.0-18.0 [facility] Comment on above: Performed By: #### T SGL #### [place] [address] [place], [place] [address] [place] [address] #### LRC #### [place] [address] [place] [address] MCH (RBC) [Entitic mass] 32.3 pg Normal 26.0-34.0 [facility] Comment on above: Performed By: #### T SGL #### [place] [address] [place], [place] [address] [place] [address] #### LRC #### [place] [address] [place] [address] MCHC (RBC) [Mass/Vol] 33.3 % Normal 32.0-36.0 [facility] Comment on above: Performed By: #### T SGL #### [place] [place] [address] [facility] #### LRC #### [place] [address] [place] [address] MCV (RBC) [Entitic vol] 96.9 fL Normal 80.0-98.0 [facility] Comment on above: Performed By: #### T SGL #### [place] [address] [place], [place] [address] [place] [address] #### LRC #### [place] [address] [place] [address] Platelet mean volume (Bld) [Entitic vol] 8.2 fL Normal 7.4-10.4 [facility] Comment on above: Performed By: #### T SGL #### [place] [place] [address] [facility] #### LRC #### [place] [address] [place] [address] Platelets (Bld) [#/Vol] 215 10*3/uL Normal 140-440 [facility] Comment on above: Performed By: #### T SGL #### [place] [address] [place], [place] [address] [place] [address] #### LRC #### [place] [address] [place] [address] RBC (Bld) [#/Vol] 2.30 10*6/uL Low 4.40-5.90 [facility] Comment on above: Performed By: #### T SGL #### [place] [address] [place], [place] [address] [place] [address] #### LRC #### [address] [place] [address] WBC (Bld) [#/Vol] 7.5 10*3/uL Normal 3.6-10.7 [facility] Comment on above: Performed By: #### T SGL #### [address] [place], [place] [address] [place] [address] #### LRC #### [address] [place] [address] Leukodepleted Red Cellson Leukodepleted Red Cells Leukodepleted Red Cells: [id number] transfused 12/19/19 08:13 JMV Unit Blood Type: O Unit Blood Rh: POS Blood Product Code: AS3 Unit Number: [id number] Unit Status: transfused Barcoded Unit Number: =[id number] Barcoded Product Code: = Barcoded ABO/Rh: =%5100 Unit Expiration: [id number] Unit Volume Transfused: 300 Unit Transfusion Start Date/Time: Normal [facility] Comment on above: Performed By: #### B GLU #### [facility] [address] [place] [address] POCT Glucoseon 12-19-2019 Glucose [Mass/Vol] 139 mg/dL High 70 - 100 mg/dL [facility] Comment on above: Test performed by gl ucose meter. Results may be 10%-15% lower than serum/plasma values. (CLIA ID [id number]) Interpretation and review of laboratory results Abnormal [facility] Test Performed by [employer] [facility], [place] [address] [facility] [place] Glucose [Mass/Vol] 186 mg/dL High 70 - 100 mg/dL [facility] Comment on above: Test performed by gl ucose meter. Results may be 10%-15% lower than serum/plasma values. (CLIA ID [id number]) Interpretation and review of laboratory results Abnormal [facility] Test Performed by [facility], [place] [address] [facility] [place] Glucose [Mass/Vol] 208 mg/dL High 70 - 100 mg/dL [facility] [place] Comment on above: Test performed by gl ucose meter. Results may be 10%-15% lower than serum/plasma values. (CLIA ID [id number]) Interpretation and review of laboratory results Abnormal [facility] Test Performed by [employer], [place] [address] [facility] Glucose [Mass/Vol] 232 mg/dL High 70 - 100 mg/dL [facility] [place] Comment on above: Test performed by gl ucose meter. Results may be 10%-15% lower than serum/plasma values. (CLIA ID [id number]) Interpretation and review of laboratory results Abnormal [facility] Test Performed by [facility], [place] [address] [facility] [place] Potassiumon 12-19-2019 Potassium [Moles/Vol] 3.5 mmol/L Normal 3.5-5.1 [facility] Comment on above: Performed By: #### T SGL #### [address] [place] [address] [facility] #### LRC #### [address] [place] [address] Potassium [Moles/Vol] 3.5 mmol/L 3.5 - 5.1 mmol/L [place] Test Performed by [facility], [place] [address] [place], [place] TS GELon 12-19-2019 TS GEL ABO Group: O Rh, Gel: POS Antibody Screen Gel: NEG Normal [facility] Comment on above: Performed By: #### B GLU #### [address] [address] TYPE AND SCREENon 12-19-2019 Sodium [Moles/Vol] Negative [place], [place] Comment on above: Test Performed by [facility], [address] [place] [address] Sodium [Moles/Vol] Positive [place], [place] Comment on above: Test Performed by [facility], [address] [place] [address] Sodium [Moles/Vol] O [place], [place] Test Performed by [facility], [address] [place] [address] [place], [place] XR CHEST PORTABLEon 12-19-19 20 [facility] Incoming Radiology Results From [facility] - 12/19/2019 6:32 AM EDT Patient Name: DOUGLAS CALLAWAY Jr ---Diagnostic Radiology--- Exam Date/Time 12/19/2019 06:16:45 EDT Exam CR Chest Portable Ordering Physician COLTON MARROQUIN Accession Number [id number] CPT4 Codes 80702 () Reason For Exam post op open [...] WILLIAM Transcribed Date and Time: 12/19/2019 6:30 [place], [place] Patient Name: DOUGLAS SIMON Jr ---Diagnostic Radiology--- Exam Date/Time 12/19/2019 06:16:45 EDT Exam CR Chest Portable Ordering Physician COLTON MARROQUIN Accession Number [id number] CPT4 Codes 68332 () Reason For Exam post op open [...] WILLIAM Transcribed Date and Time: 12/19/2019 6:30 [place], [place] Basic Metabolic Panelon 04- Calcium [Mass/Vol] 9.0 mg/dL Normal 8.4-10.4 [facility] Comment on above: Performed By: #### T SGL #### [facility] [address] [place] [address] [facility] #### LRC #### [address] [place] [address] Glucose [Mass/Vol] 191 mg/dL High 70-100 [facility] Comment on above: Performed By: #### T SGL #### [facility] [address] [place] [address] [facility] #### LRC #### [address] [place] [address] Anion gap [Moles/Vol] 10 Normal [facility] Comment on above: Performed By: #### T SGL #### [facility] [address] [place] [address] [facility] #### LRC #### [address] [place] [address] CO2 [Moles/Vol] 23 mmol/L Normal 22-30 [facility] Comment on above: Performed By: #### T SGL #### [address] [place] [address] [facility] #### LRC #### [address] [place] [address] Creatinine [Mass/Vol] 1.17 mg/dL Normal 0.52-1.25 [facility] Comment on above: Performed By: #### T SGL #### [address] [place] [address] [facility] #### LRC #### [address] [place] [address] GFR/1.73 sq M predicted among blacks MDRD (S/P/Bld) [Vol rate/Area] mL/min/{1.73_m2} Normal >60 [facility] Comment on above: Performed By: #### T SGL #### [address] [place] [address] [facility] #### LRC #### [address] [place] [address] GFR/1.73 sq M predicted among non-blacks MDRD (S/P/Bld) [Vol rate/Area] mL/min/{1.73_m2} Normal >60 [facility] Comment on above: Result Comment: Sour ce- MDRD equation with creatinine calibration to IDMS(NKDEP) eGFR not recommended for drug dose adjustment Performed By: #### T SGL #### [address] [place] [address] [facility] #### LRC #### [address] [place] [address] Urea nitrogen [Mass/Vol] 37 mg/dL High 7-20 [facility] Comment on above: Performed By: #### T SGL #### [address] [place] [address] [facility] #### LRC #### [facility] [address] [place] [address] Chloride [Moles/Vol] 103 mmol/L Normal 98-107 [facility] Comment on above: Performed By: #### T SGL #### [facility] [address] [place] [place] [address] [facility] #### LRC #### [facility] [address] [place] [address] Potassium [Moles/Vol] 4.1 mmol/L Normal 3.5-5.1 [facility] Comment on above: Performed By: #### T SGL #### [facility] [address] [place] [address] [facility] #### LRC #### [facility] [address] [place] [address] Sodium [Moles/Vol] 136 mmol/L Normal 135-145 [facility] Comment on above: Performed By: #### T SGL #### [facility] [address] [place] [address] [facility] #### LRC #### [facility] [address] [place] [address] Anion gap [Moles/Vol] 10 mmol/L [place], [place] Comment on above: Test Performed by [facility], [place] [address] Calcium [Mass/Vol] 9.0 mg/dL 8.4 - 10. 4 mg/dL [place], [place] Comment on above: Test Performed by [facility], [facility] [place] [address] Chloride [Moles/Vol] 103 mmol/L 98 - 107 mmol/L [place] Comment on above: Test Performed by [facility], [facility] [place] [address] CO2 [Moles/Vol] 23 mmol/L 22 - 30 mmol/L [place] Comment on above: Test Performed by [facility], [place] [address] Creatinine [Mass/Vol] 1.17 mg/dL 0.52 - 1.25 mg/dL [place], [place] Comment on above: Test Performed by [facility], [address] [place] [address] EGFR IF NonAfrican Palauan >60.0 >60 mL/min [place], [place] Comment on above: Test Performed by [facility], [place] [address] Source- MDRD equation with creatinine calibration to IDMS(NKDEP) eGFR not recommended for drug dose adjustment GFR/1.73 sq M predicted among blacks MDRD (S/P/Bld) [Vol rate/Area] mL/min/{1.73_m2} >60 mL/min [place] Comment on above: Test Performed by [facility], [place] [address] Glucose [Mass/Vol] 191 mg/dL High 70 - 100 mg/dL [place], [place] Comment on above: Test Performed by [facility], [place] [address] Interpretation and review of laboratory results Abnormal [place] Potassium [Moles/Vol] 4.1 mmol/L 3.5 - 5.1 mmol/L [place] Comment on above: Test Performed by [facility], [address] [place] [address] Sodium [Moles/Vol] 136 mmol/L 135 - 145 mmol/L [place], [place] Urea nitrogen [Mass/Vol] 37 mg/dL High 7 - 20 mg/dL [place], [place] Comment on above: Test Performed by [facility], [place] [address] Test Performed by [facility], [address] [place] [address] [place], [place] CBCon 12-18-2019 Erythrocyte distribution width (RBC) [Ratio] 14.5 % 11.5 - 14.5 % [place], [place] Comment on above: Test Performed by [facility], [place] [address] Hematocrit (Bld) [Volume fraction] 23.8 % Low 40 - 52 % [place] Comment on above: Test Performed by [facility], [address] [place] [address] Hemoglobin (Bld) [Mass/Vol] 7.9 g/dL Low 13 - 18 g/dL [place], [place] Comment on above: Test Performed by [facility], [address] [place] [address] Interpretation and review of laboratory results Abnormal [place], [place] MCH (RBC) [Entitic mass] 32.3 pg 26 - 34 pg [place], [place] Comment on above: Test Performed by [facility], [address] [place] [address] MCHC (RBC) [Mass/Vol] 33.3 % 32 - 36 % [place], [place] Comment on above: Test Performed by [facility], [place] [address] MCV (RBC) [Entitic vol] 96.9 fL 80 - 98 fL [place], [place] Comment on above: Test Performed by [facility], [place] [address] Platelet mean volume (Bld) [Entitic vol] 8.4 fL 7.4 - 10.4 fL [place], [place] Comment on above: Test Performed by [facility], [place] [address] Platelets (Bld) [#/Vol] 213 10*3/uL 140 - 440 10*3/uL [place] Comment on above: Test Performed by [facility], [place] [address] RBC (Bld) [#/Vol] 2.46 10*6/uL Low 4.4 - 5.9 10*6/uL [place] Comment on above: Test Performed by [facility], [place] [address] WBC (Bld) [#/Vol] 9.5 10*3/uL 3.6 - 10.7 10*3/uL [place] Test Performed by [facility], [address] [facility] [place] [place] [address] [place], [place] CR Chest Portableon 12-18-19 20 CR Chest Portable Patient Name: ОЛЬГА Max Jr, DOUGLAS Reed Diagnostic Radiology Exam Date/Time 12/18/2019 06:19:10 EDT Exam CR Chest Portable Ordering Physician COLTON MARROQUIN Accession Number [id number] CPT4 Codes 67286 () Reason For Exam POST OP OPEN [...] Transcribed Date and Time: 12/18/2019 8:00 Normal [facility] Glucose,Bedsideon 12-18-2019 Glucose [Mass/Vol] 135 mg/dL High 70-100 [facility] Comment on above: Result Comment: Test performed by glucose meter. Results may be 10%-15% lower than serum/plasma values. (CLIA ID [id number]) Performed By: #### T SGL #### [address] [place], [place] [address] [place] [address] #### LRC #### [address] [place] [address] Glucose [Mass/Vol] 183 mg/dL High 70-100 [facility] Comment on above: Result Comment: Test performed by glucose meter. Results may be 10%-15% lower than serum/plasma values. (CLIA ID [id number]) Performed By: #### T SGL #### [address] [place], [place] [address] [place] [address] #### LRC #### [address] [place] [address] Hemogramon 12-18-2019 Erythrocyte distribution width (RBC) [Ratio] 14.5 % Normal 11.5-14.5 [facility] Comment on above: Performed By: #### T SGL #### [address] [place] [address] [facility] #### LRC #### [address] [place] [address] Hematocrit (Bld) [Volume fraction] 23.8 % Low 40.0-52.0 [facility] Comment on above: Performed By: #### T SGL #### [address] [place], [place] [address] [place] [address] #### LRC #### [address] [place] [address] Hemoglobin (Bld) [Mass/Vol] 7.9 g/dL Low 13.0-18.0 [facility] Comment on above: Performed By: #### T SGL #### [address] [place], [place] [address] [place] [address] #### LRC #### [address] [place] [address] MCH (RBC) [Entitic mass] 32.3 pg Normal 26.0-34.0 [facility] Comment on above: Performed By: #### T SGL #### [address] [place], [place] [address] [place] [address] #### LRC #### [address] [place] [address] MCHC (RBC) [Mass/Vol] 33.3 % Normal 32.0-36.0 [facility] Comment on above: Performed By: #### T SGL #### [address] [place], [place] [address] [place] [address] #### LRC #### [address] [place] [address] MCV (RBC) [Entitic vol] 96.9 fL Normal 80.0-98.0 [facility] Comment on above: Performed By: #### T SGL #### [address] [place], [place] [address] [place] [address] #### LRC #### [address] [place] [address] Platelet mean volume (Bld) [Entitic vol] 8.4 fL Normal 7.4-10.4 [facility] Comment on above: Performed By: #### T SGL #### [facility] [address] [place] [address] [facility] #### LRC #### [address] [place] [address] Platelets (Bld) [#/Vol] 213 10*3/uL Normal 140-440 [facility] Comment on above: Performed By: #### T SGL #### [address] [place] [address] [facility] #### LRC #### [address] [place] [address] RBC (Bld) [#/Vol] 2.46 10*6/uL Low 4.40-5.90 [facility] Comment on above: Performed By: #### T SGL #### [address] [place], [place] [address] [place] [address] #### LRC #### [address] [place] [address] WBC (Bld) [#/Vol] 9.5 10*3/uL Normal 3.6-10.7 [facility] Comment on above: Performed By: #### T SGL #### [address] [place], [place] [address] [place] [address] #### LRC #### [address] [place] [address] Leukodepleted Red Cellson Leukodepleted Red Cells Leukodepleted Red Cells: [id number] released 12/18/19 07:33 JMV Unit Blood Type: O Unit Blood Rh: POS Blood Product Code: AS3 Unit Number: [id number] Unit Status: released Barcoded Unit Number: =[id number] Barcoded Product Code: = Barcoded ABO/Rh: =%5100 Unit Expiration: Leukodepleted Red Cells: [id number] released 12/18/19 07:33 JMV Unit Blood Type: O Unit Blood Rh: POS Blood Product Code: AS3 Unit Number: [id number] Unit Status: released Barcoded Unit Number: =[id number] Barcoded Product Code: = Barcoded ABO/Rh: =%5100 Unit Expiration: Normal [facility] Comment on above: Performed By: #### T SGL #### [facility] [address] [place] [address] [facility] #### LRC #### [facility] [address] [place] [address] POCT Glucoseon 12-18-2019 Glucose [Mass/Vol] 135 mg/dL High 70 - 100 mg/dL [facility] Comment on above: Test performed by gl ucose meter. Results may be 10%-15% lower than serum/plasma values. (CLIA ID [id number]) Interpretation and review of laboratory results Abnormal [employer], [employer] Test Performed by [facility], [place] [address] depict [employer] ID Glucose [Mass/Vol] 183 mg/dL High 70 - 100 mg/dL [facility] Comment on above: Test performed by gl ucose meter. Results may be 10%-15% lower than serum/plasma values. (CLIA ID [id number]) Interpretation and review of laboratory results Abnormal [employer], [employer] Test Performed by [facility], [facility] [place] [address] [facility] [employer] XR CHEST PORTABLEon 12-18-19 Patient Name: DOUGLAS SIMON Jr ---Diagnostic Radiology--- Exam Date/Time 12/18/2019 06:19:10 EDT Exam CR Chest Portable Ordering Physician COLTON MARROQUIN Accession Number [id number] CPT4 Codes 49130 () Reason For Exam POST OP OPEN [...] RISA Transcribed Date and Time: 12/18/2019 8:00 [place], [place], [facility] Results From [facility] - 12/18/2019 8:02 AM EDT Patient Name: DOUGLAS CALLAWAY Jr ---Diagnostic Radiology--- Exam Date/Time 12/18/2019 06:19:10 EDT Exam CR Chest Portable Ordering Physician COLTON MARROQUIN Accession Number [id number] CPT4 Codes 27862 () Reason For Exam POST OP OPEN [...] RISA Transcribed Date and Time: 12/18/2019 8:00 [facility] Basic Metabolic Panelon - Calcium [Mass/Vol] 9.3 mg/dL Normal 8.4-10.4 [facility] Comment on above: Performed By: #### H EMOG, HA1C2, PT, BMP3, LFT3 #### [facility] [address] [place] [address] Glucose [Mass/Vol] 82 mg/dL Normal 70-100 [facility] Comment on above: Performed By: #### H EMOG, HA1C2, PT, BMP3, LFT3 #### [address] Urea nitrogen [Mass/Vol] 25 mg/dL High 7-20 [facility] Comment on above: Performed By: #### H EMOG, HA1C2, PT, BMP3, LFT3 #### [address] Anion gap [Moles/Vol] 7 Normal [facility] Comment on above: Performed By: #### H EMOG, HA1C2, PT, BMP3, LFT3 #### [address] [address] CO2 [Moles/Vol] 25 mmol/L Normal 22-30 [facility] Comment on above: Performed By: #### H EMOG, HA1C2, PT, BMP3, LFT3 #### [address] Creatinine [Mass/Vol] 1.17 mg/dL Normal 0.52-1.25 [facility] Comment on above: Performed By: #### H EMOG, HA1C2, PT, BMP3, LFT3 #### [address] GFR/1.73 sq M predicted among blacks MDRD (S/P/Bld) [Vol rate/Area] mL/min/{1.73_m2} Normal >60 [facility] Comment on above: Performed By: #### H EMOG, HA1C2, PT, BMP3, LFT3 #### [address] [address] GFR/1.73 sq M predicted among non-blacks MDRD (S/P/Bld) [Vol rate/Area] mL/min/{1.73_m2} Normal >60 [facility] Comment on above: Result Comment: Sour ce- MDRD equation with creatinine calibration to IDMS(NKDEP) eGFR not recommended for drug dose adjustment Performed By: #### H EMOG, HA1C2, PT, BMP3, LFT3 #### [address] [place] [address] Chloride [Moles/Vol] 103 mmol/L Normal 98-107 [facility] Comment on above: Performed By: #### H EMOG, HA1C2, PT, BMP3, LFT3 #### [facility] [address] [place] [address] Potassium [Moles/Vol] 4.6 mmol/L Normal 3.5-5.1 [facility] Comment on above: Performed By: #### H EMOG, HA1C2, PT, BMP3, LFT3 #### [facility] [address] [place] [address] Sodium [Moles/Vol] 136 mmol/L Normal 135-145 [facility] Comment on above: Performed By: #### H EMOG, HA1C2, PT, BMP3, LFT3 #### [facility] [address] [place] [address] Anion gap [Moles/Vol] 7 mmol/L [place], [place] Comment on above: Test Performed by [facility], [address] [place] [address] Calcium [Mass/Vol] 9.3 mg/dL 8.4 - 10. 4 mg/dL [place], [place] Comment on above: Test Performed by [facility], [address] [place] [address] Chloride [Moles/Vol] 103 mmol/L 98 - 107 mmol/L [place], [place] Comment on above: Test Performed by [facility], [address] [place] [address] CO2 [Moles/Vol] 25 mmol/L 22 - 30 mmol/L [place], [place] Comment on above: Test Performed by [facility], [address] [place] [address] Creatinine [Mass/Vol] 1.17 mg/dL 0.52 - 1.25 mg/dL [place], [place] Comment on above: Test Performed by [facility], [facility] [place] [address] EGFR IF NonAfrican Palauan >60.0 >60 mL/min [place], [place] Comment on above: Test Performed by [facility], [place] [address] Source- MDRD equation with creatinine calibration to IDMS(NKDEP) eGFR not recommended for drug dose adjustment GFR/1.73 sq M predicted among blacks MDRD (S/P/Bld) [Vol rate/Area] mL/min/{1.73_m2} >60 mL/min [place], [place] Comment on above: Test Performed by [facility], [facility] [place] [address] Glucose [Mass/Vol] 82 mg/dL 70 - 100 mg/dL [place], [place] Comment on above: Test Performed by [facility], [address] [place] [address] Interpretation and review of laboratory results Abnormal [place], [place] Potassium [Moles/Vol] 4.6 mmol/L 3.5 - 5.1 mmol/L [place], [place] Comment on above: Test Performed by [facility], [facility] [place] [address] Sodium [Moles/Vol] 136 mmol/L 135 - 145 mmol/L [place], [place] Urea nitrogen [Mass/Vol] 25 mg/dL High 7 - 20 mg/dL [place], [place] Comment on above: Test Performed by [facility], [address] [place] [address] CBCon 12-17-2019 Erythrocyte distribution width (RBC) [Ratio] 14.4 % 11.5 - 14.5 % [place] Comment on above: Test Performed by [facility], [facility] [place] [address] Hematocrit (Bld) [Volume fraction] 24.4 % Low 40 - 52 % [place] Comment on above: Test Performed by [facility], [place] [address] Hemoglobin (Bld) [Mass/Vol] 8.0 g/dL Low 13 - 18 g/dL [place] Comment on above: Test Performed by [facility], [facility] [place] [address] Interpretation and review of laboratory results Abnormal [place] MCH (RBC) [Entitic mass] 32.0 pg 26 - 34 pg [place], [place] Comment on above: Test Performed by [facility], [address] [place] [address] MCHC (RBC) [Mass/Vol] 33.0 % 32 - 36 % [place], [place] Comment on above: Test Performed by [facility], [place] [address] MCV (RBC) [Entitic vol] 97.0 fL 80 - 98 fL [place], [place] Comment on above: Test Performed by [facility], [address] [place] [address] Platelet mean volume (Bld) [Entitic vol] 8.3 fL 7.4 - 10.4 fL [place], [place] Comment on above: Test Performed by [facility], [address] [place] [address] Platelets (Bld) [#/Vol] 165 10*3/uL 140 - 440 10*3/uL [place], [place] Comment on above: Test Performed by [facility], [address] [place] [address] RBC (Bld) [#/Vol] 2.51 10*6/uL Low 4.4 - 5.9 10*6/uL [place], [place] Comment on above: Test Performed by [facility], [address] [place] [address] WBC (Bld) [#/Vol] 11.3 10*3/uL High 3.6 - 10.7 10*3/uL [place] Test Performed by [facility], [address] [place] [address] [place] CR Chest Portableon 12-17-19 20 CR Chest Portable Patient Name: DOUGLAS SIMON Jr Diagnostic Radiology Exam Date/Time 12/17/2019 06:52:59 EDT Exam CR Chest Portable Ordering Physician COLTON MARROQUIN Accession Number [id number] CPT4 Codes 93850 () Reason For Exam SOB Report HISTORY: Status post CABG Portable AP chest 0536 hours is compared to previous study 24 hours ago. FINDINGS: Continued mild atelectatic changes both lung bases. Removal of Louise-Iza catheter since last exam with remaining right internal jugular introducer sheath Pleural tubes, mild colonic dilatation with high position of hepatic flexure Report Dictated on Workstation: [id number] Final Dictated: 12/17/2019 5:55 am Dictating Physician: MD ENNIS WILLIAM Signed Date and Time: 12/17/2019 5:58 am Signed by: MD ENNIS WILLIAM Transcribed Date and Time: 12/17/2019 5:55 Normal [facility] EKG 12 leadon 12-17-2019 [facility] Test Date: 2019-12-17 Pat Name: Douglas Callaway Department: [facility] Room: [facility] Gender: M Drafter Electrical: SHAHID : 1955 Requested By: COLTON MARROQUIN Order Number: [id number] Reading MD: Morgan Sanchez Measurements Intervals [place] Rate: 86 P: 42 CA: 137 QRS: 42 QRSD: 79 T: 25 QT: 343 QTc: 411 Interpretive Statements Sinus rhythm Electronically Signed On 12-17-2019 11:59:[address] [facility] [employer] [facility], [facility] Incoming Cardiology Results From [employer] - 12/17/2019 12:00 PM EDT [facility] Test Date: 2019-12-17 Pat Name: Douglas Callaway Department: [facility] Room: [facility] Gender: M Drafter Electrical: SHAHID : 1955 Requested By: COLTON MARROQUIN Order Number: [id number] Reading : Morgan Sanchez Measurements Intervals [place] Rate: 86 P: 42 CA: 137 QRS: 42 QRSD: 79 T: 25 QT: 343 QTc: 411 Interpretive Statements Sinus rhythm Electronically Signed On 12-17-2019 11:59:[address] [facility] [facility] Glucose,Bedsideon 12-17-2019 Glucose [Mass/Vol] 307 mg/dL High 70-100 [facility] Comment on above: Result Comment: Test performed by glucose meter. Results may be 10%-15% lower than serum/plasma values. (CLIA ID [id number]) Performed By: #### T SGL #### [facility] [address] [facility] [place] [address] [facility] #### LRC #### [facility] [address] [place] [address] Glucose [Mass/Vol] 207 mg/dL High 70-100 [facility] Comment on above: Result Comment: Test performed by glucose meter. Results may be 10%-15% lower than serum/plasma values. (CLIA ID [id number]) Performed By: #### T SGL #### [facility] [address] [facility] [place] [address] [facility] #### LRC #### [facility] [address] [place] [address] Glucose [Mass/Vol] 166 mg/dL High 70-100 [facility] Comment on above: Result Comment: Test performed by glucose meter. Results may be 10%-15% lower than serum/plasma values. (CLIA ID [id number]) Performed By: #### T SGL #### [facility] [address] [facility] [place] [address] [facility] #### LRC #### [place] [address] [place] [address] Glucose [Mass/Vol] 133 mg/dL High 70-100 [facility] Comment on above: Result Comment: Test performed by glucose meter. Results may be 10%-15% lower than serum/plasma values. (CLIA ID [id number]) Performed By: #### T SGL #### [facility] [address] [facility] [place] [address] [facility] #### LRC #### [facility] [address] [facility] [place] [address] Test performed by gl ucose meter. Results may be 10%-15% lower than serum/plasma values. (CLIA ID [id number]) Glucose [Mass/Vol] 106 mg/dL High 70-100 [facility], [place] Comment on above: Result Comment: Test performed by glucose meter. Results may be 10%-15% lower than serum/plasma values. (CLIA ID [id number]) Performed By: #### T SGL #### [facility] [address] [place] [address] [facility] #### LRC #### [facility] [address] [facility] [place] [address] Test performed by gl ucose meter. Results may be 10%-15% lower than serum/plasma values. (CLIA ID [id number]) Glucose [Mass/Vol] 101 mg/dL High 70-100 [facility] Comment on above: Result Comment: Test performed by glucose meter. Results may be 10%-15% lower than serum/plasma values. (CLIA ID [id number]) Performed By: #### T SGL #### [facility] [address] [place] [address] [facility] #### LRC #### [place] [address] [facility] [place] [address] Glucose [Mass/Vol] 85 mg/dL Normal 70-100 [facility] Comment on above: Result Comment: Test performed by glucose meter. Results may be 10%-15% lower than serum/plasma values. (CLIA ID [id number]) Performed By: #### T SGL #### [facility] [address] [facility] [address] [facility] #### LRC #### [place] [address] [facility] [place] [address] Glucose [Mass/Vol] 95 mg/dL Normal 70-100 [facility] Comment on above: Result Comment: Test performed by glucose meter. Results may be 10%-15% lower than serum/plasma values. (CLIA ID [id number]) Performed By: #### T SGL #### [facility] [address] [place] [address] [facility] #### LRC #### [place] [address] [facility] [place] [address] Glucose [Mass/Vol] 99 mg/dL Normal 70-100 [facility] Comment on above: Result Comment: Test performed by glucose meter. Results may be 10%-15% lower than serum/plasma values. (CLIA ID [id number]) Performed By: #### T SGL #### [facility] [address] [facility] [place] [address] [facility] #### LRC #### [facility] [address] [facility] [place] [address] Glucose [Mass/Vol] 74 mg/dL Normal 70-100 [facility] Comment on above: Result Comment: Test performed by glucose meter. Results may be 10%-15% lower than serum/plasma values. (CLIA ID [id number]) Performed By: #### T SGL #### [facility] [address] [facility] [place] [address] [facility] #### LRC #### [facility] [address] [facility] [place] [address] Glucose [Mass/Vol] 71 mg/dL Normal 70-100 [facility] Comment on above: Result Comment: Test performed by glucose meter. Results may be 10%-15% lower than serum/plasma values. (CLIA ID [id number]) Performed By: #### H EMOG, HA1C2, PT, BMP3, LFT3 #### [facility] [address] [facility] [place] [address] Glucose [Mass/Vol] 94 mg/dL Normal 70-100 [facility] Comment on above: Result Comment: Test performed by glucose meter. Results may be 10%-15% lower than serum/plasma values. (CLIA ID [id number]) Performed By: #### H EMOG, HA1C2, PT, BMP3, LFT3 #### [facility] [address] [facility] [place] [address] Glucose [Mass/Vol] 94 mg/dL Normal 70-100 [facility] Comment on above: Result Comment: Test performed by glucose meter. Results may be 10%-15% lower than serum/plasma values. (CLIA ID [id number]) Performed By: #### H EMOG, HA1C2, PT, BMP3, LFT3 #### [facility] [address] [facility] [place] [address] Glucose [Mass/Vol] 78 mg/dL Normal 70-100 [facility] Comment on above: Result Comment: Test performed by glucose meter. Results may be 10%-15% lower than serum/plasma values. (CLIA ID [id number]) Performed By: #### H EMOG, HA1C2, PT, BMP3, LFT3 #### [place] [address] [place], [place] Glucose [Mass/Vol] 100 mg/dL Normal 70-100 [facility] Comment on above: Result Comment: Test performed by glucose meter. Results may be 10%-15% lower than serum/plasma values. (CLIA ID [id number]) Performed By: #### H EMOG, HA1C2, PT, BMP3, LFT3 #### [address] [address] [place], [place] Hemogramon 12-17-2019 Erythrocyte distribution width (RBC) [Ratio] 14.4 % Normal 11.5-14.5 [facility] Comment on above: Performed By: #### H EMOG, HA1C2, PT, BMP3, LFT3 #### [address] [place] [address] [place], [place] Hematocrit (Bld) [Volume fraction] 24.4 % Low 40.0-52.0 [facility] Comment on above: Performed By: #### H EMOG, HA1C2, PT, BMP3, LFT3 #### [address] [place] [address] [place], [place] Hemoglobin (Bld) [Mass/Vol] 8.0 g/dL Low 13.0-18.0 [facility] Comment on above: Performed By: #### H EMOG, HA1C2, PT, BMP3, LFT3 #### [place] [address] [place], [place] MCH (RBC) [Entitic mass] 32.0 pg Normal 26.0-34.0 [facility] Comment on above: Performed By: #### H EMOG, HA1C2, PT, BMP3, LFT3 #### [place] [address] [place], [place] MCHC (RBC) [Mass/Vol] 33.0 % Normal 32.0-36.0 [facility] Comment on above: Performed By: #### H EMOG, HA1C2, PT, BMP3, LFT3 #### [place] [address] [place], [place] MCV (RBC) [Entitic vol] 97.0 fL Normal 80.0-98.0 [facility] Comment on above: Performed By: #### H EMOG, HA1C2, PT, BMP3, LFT3 #### [place] [address] [place], [place] Platelet mean volume (Bld) [Entitic vol] 8.3 fL Normal 7.4-10.4 [facility] Comment on above: Performed By: #### H EMOG, HA1C2, PT, BMP3, LFT3 #### [place] [address] [place], [place] Platelets (Bld) [#/Vol] 165 10*3/uL Normal 140-440 [facility] Comment on above: Performed By: #### H EMOG, HA1C2, PT, BMP3, LFT3 #### [place] [address] [address] [place], [place] RBC (Bld) [#/Vol] 2.51 10*6/uL Low 4.40-5.90 [facility] Comment on above: Performed By: #### H EMOG, HA1C2, PT, BMP3, LFT3 #### [address] WBC (Bld) [#/Vol] 11.3 10*3/uL High 3.6-10.7 [facility] Comment on above: Performed By: #### H EMOG, HA1C2, PT, BMP3, LFT3 #### [address] [place], [place] Magnesiumon 12-17-2019 Magnesium [Mass/Vol] 2.3 mg/dL Normal 1.6-2.3 [facility] Comment on above: Performed By: #### H EMOG, HA1C2, PT, BMP3, LFT3 #### [address] [place] [address] Magnesium [Mass/Vol] 2.3 mg/dL 1.6 - 2.3 mg/dL [facility] [place], [place] Otheron 12-17-2019 Interpretation and review of laboratory results Abnormal [facility] [place] Test Performed by [facility], [address] [place] [address] [facility] [place], [place] Test Performed by [facility], [address] [place] [address] [facility], [place] POCT Glucoseon 12-17-2019 Glucose [Mass/Vol] 307 mg/dL High 70 - 100 mg/dL [facility] [place] Comment on above: Test performed by gl ucose meter. Results may be 10%-15% lower than serum/plasma values. (CLIA ID [id number]) Interpretation and review of laboratory results Abnormal [facility] [place] Test Performed by [facility], [facility] [address] [facility] [place] [address] [facility] [place] Glucose [Mass/Vol] 207 mg/dL High 70 - 100 mg/dL [facility], [place] Comment on above: Test performed by gl ucose meter. Results may be 10%-15% lower than serum/plasma values. (CLIA ID [id number]) Interpretation and review of laboratory results Abnormal [facility] [place] Test Performed by [facility], [facility] [place] [address] [facility] [place] Interpretation and review of laboratory results Abnormal [facility] [place] Test Performed by [facility], [address] [place] [address] [facility] [place] Glucose [Mass/Vol] 166 mg/dL High 70 - 100 mg/dL [facility] [place] Comment on above: Test performed by gl ucose meter. Results may be 10%-15% lower than serum/plasma values. (CLIA ID [id number]) Glucose [Mass/Vol] 101 mg/dL High 70 - 100 mg/dL [facility] [place] Comment on above: Test performed by gl ucose meter. Results may be 10%-15% lower than serum/plasma values. (CLIA ID [id number]) Interpretation and review of laboratory results Abnormal [facility], [place] Test Performed by [facility], [address] [place] [address] [facility] [place], [place] Glucose [Mass/Vol] 85 mg/dL 70 - 100 mg/dL [facility], [place] Comment on above: Test performed by gl ucose meter. Results may be 10%-15% lower than serum/plasma values. (CLIA ID [id number]) Test Performed by [facility], [address] [place] [address] [facility], [place] Glucose [Mass/Vol] 95 mg/dL 70 - 100 mg/dL [facility], [place] Comment on above: Test performed by gl ucose meter. Results may be 10%-15% lower than serum/plasma values. (CLIA ID [id number]) Test Performed by [facility], [address] [place] [address] [facility], [place] Glucose [Mass/Vol] 99 mg/dL 70 - 100 mg/dL [facility] Comment on above: Test performed by gl ucose meter. Results may be 10%-15% lower than serum/plasma values. (CLIA ID [id number]) Test Performed by [facility], [address] [place] [address] [facility] Glucose [Mass/Vol] 74 mg/dL 70 - 100 mg/dL [facility], [place] Comment on above: Test performed by gl ucose meter. Results may be 10%-15% lower than serum/plasma values. (CLIA ID [id number]) Test Performed by [facility], [address] [place] [address] [facility], [place] Glucose [Mass/Vol] 71 mg/dL 70 - 100 mg/dL [facility], [place] Comment on above: Test performed by gl ucose meter. Results may be 10%-15% lower than serum/plasma values. (CLIA ID [id number]) Test Performed by [facility], [address] [place] [address] [facility] [place], [place] Glucose [Mass/Vol] 94 mg/dL 70 - 100 mg/dL [place], [place] Comment on above: Test performed by gl ucose meter. Results may be 10%-15% lower than serum/plasma values. (CLIA ID [id number]) Test Performed by [facility], [address] [facility] [place] [place] [address] [place], [place] Glucose [Mass/Vol] 94 mg/dL 70 - 100 mg/dL [place], [place] Comment on above: Test performed by gl ucose meter. Results may be 10%-15% lower than serum/plasma values. (CLIA ID [id number]) Test Performed by [facility], [address] [facility] [place] [address] [place], [place] XR CHEST PORTABLEon 12-17-19 [facility], [facility] Incoming Radiology Results From [facility] - 12/17/2019 6:53 AM EDT Patient Name: DOUGLAS CALLAWAY Jr ---Diagnostic Radiology--- Exam Date/Time 12/17/2019 06:52:59 EDT Exam CR Chest Portable Ordering Physician COLTON MARROQUIN Accession Number [id number] CPT4 Codes 20944 () Reason For Exam SOB Report HISTORY: Status post CABG Portable AP chest 0536 hours is compared to previous study 24 hours ago. FINDINGS: Continued mild atelectatic changes both lung bases. Removal of Louise-Iza catheter since last exam with remaining right internal jugular introducer sheath Pleural tubes, mild colonic dilatation with high position of hepatic flexure Report Dictated on Workstation: [id number] --- Final --- Dictated: 12/17/2019 5:55 am Dictating Physician: MD ENNIS WILLIAM Signed Date and Time: 12/17/2019 5:58 am Signed by: MD ENNIS WILLIAM Transcribed Date and Time: 12/17/2019 5:55 [place], [place] Patient Name: DOUGLAS SIMON Jr ---Diagnostic Radiology--- Exam Date/Time 12/17/2019 06:52:59 EDT Exam CR Chest Portable Ordering Physician COLTON MARROQUIN Accession Number [id number] CPT4 Codes 27092 () Reason For Exam SOB Report HISTORY: Status post CABG Portable AP chest 0536 hours is compared to previous study 24 hours ago. FINDINGS: Continued mild atelectatic changes both lung bases. Removal of Louise-Iza catheter since last exam with remaining right internal jugular introducer sheath Pleural tubes, mild colonic dilatation with high position of hepatic flexure Report Dictated on Workstation: [id number] --- Final --- Dictated: 12/17/2019 5:55 am Dictating Physician: MD ENNIS WILLIAM Signed Date and Time: 12/17/2019 5:58 am Signed by: MD ENNIS WILLIAM Transcribed Date and Time: 12/17/2019 5:55 [place], [place] Basic Metabolic Panelon 12-05 Calcium [Mass/Vol] 8.7 mg/dL Normal 8.4-10.4 [facility] Comment on above: Performed By: #### H EMOG, HA1C2, PT, BMP3, LFT3 #### [address] Glucose [Mass/Vol] 91 mg/dL Normal 70-100 [facility] Comment on above: Performed By: #### H EMOG, HA1C2, PT, BMP3, LFT3 #### [address] Urea nitrogen [Mass/Vol] 17 mg/dL Normal 7-20 [facility] Comment on above: Performed By: #### H EMOG, HA1C2, PT, BMP3, LFT3 #### [address] [address] [place], [place] Anion gap [Moles/Vol] 10 Normal [facility] Comment on above: Performed By: #### H EMOG, HA1C2, PT, BMP3, LFT3 #### [address] [address] [place], [place] CO2 [Moles/Vol] 25 mmol/L Normal 22-30 [facility] Comment on above: Performed By: #### H EMOG, HA1C2, PT, BMP3, LFT3 #### [address] [address] [place], [place] Creatinine [Mass/Vol] 0.79 mg/dL Normal 0.52-1.25 [facility] Comment on above: Performed By: #### H EMOG, HA1C2, PT, BMP3, LFT3 #### [facility] [address] [place], [place] GFR/1.73 sq M predicted among blacks MDRD (S/P/Bld) [Vol rate/Area] mL/min/{1.73_m2} Normal >60 [facility] Comment on above: Performed By: #### H EMOG, HA1C2, PT, BMP3, LFT3 #### [address] [place] [place], [place] GFR/1.73 sq M predicted among non-blacks MDRD (S/P/Bld) [Vol rate/Area] mL/min/{1.73_m2} Normal >60 [facility] Comment on above: Result Comment: Sour ce- MDRD equation with creatinine calibration to IDMS(NKDEP) eGFR not recommended for drug dose adjustment Performed By: #### H EMOG, HA1C2, PT, BMP3, LFT3 #### [address] [place] [place], [place] Potassium [Moles/Vol] 4.3 mmol/L Normal 3.5-5.1 [facility] Comment on above: Performed By: #### H EMOG, HA1C2, PT, BMP3, LFT3 #### [address] [place], [place] Chloride [Moles/Vol] 105 mmol/L Normal 98-107 [facility] Comment on above: Performed By: #### H EMOG, HA1C2, PT, BMP3, LFT3 #### [address] [place], [place] Sodium [Moles/Vol] 141 mmol/L Normal 135-145 [facility] Comment on above: Performed By: #### H EMOG, HA1C2, PT, BMP3, LFT3 #### [address] [place], [place] Anion gap [Moles/Vol] 10 mmol/L [place], [place] Comment on above: Test Performed by [facility], [place] [address] Calcium [Mass/Vol] 8.7 mg/dL 8.4 - 10. 4 mg/dL [place], [place] Comment on above: Test Performed by [facility], [facility] [place] [address] Chloride [Moles/Vol] 105 mmol/L 98 - 107 mmol/L [place], [place] Comment on above: Test Performed by [facility], [facility] [place] [address] CO2 [Moles/Vol] 25 mmol/L 22 - 30 mmol/L [place], [place] Comment on above: Test Performed by [facility], [address] [place] [address] Creatinine [Mass/Vol] 0.79 mg/dL 0.52 - 1.25 mg/dL [place], [place] Comment on above: Test Performed by [facility], [facility] [place] [address] EGFR IF NonAfrican [place]an >60.0 >60 mL/min [place], [place] Comment on above: Test Performed by [facility], [address] [place] [address] Source- MDRD equation with creatinine calibration to IDMT(NKDEP) eGFR not recommended for drug dose adjustment GFR/1.73 sq M predicted among blacks MDRD (S/P/Bld) [Vol rate/Area] mL/min/{1.73_m2} >60 mL/min [place], [place] Comment on above: Test Performed by [facility], [place] [address] Glucose [Mass/Vol] 91 mg/dL 70 - 100 mg/dL [place] Comment on above: Test Performed by [facility], [facility] [place] [address] Potassium [Moles/Vol] 4.3 mmol/L 3.5 - 5.1 mmol/L [place], [place] Comment on above: Test Performed by [facility], [facility] [place] [address] Sodium [Moles/Vol] 141 mmol/L 135 - 145 mmol/L [place], [place] Urea nitrogen [Mass/Vol] 17 mg/dL 7 - 20 mg/dL [place], [place] Comment on above: Test Performed by [facility], [place] [address] [facility]Con 12-16-2019 Erythrocyte distribution width (RBC) [Ratio] 13.6 % 11.5 - 14.5 % [place] Comment on above: Test Performed by [facility], [place] [address] Hematocrit (Bld) [Volume fraction] 23.1 % Low 40 - 52 % [place], [place] Comment on above: Test Performed by [facility], [place] [address] Hemoglobin (Bld) [Mass/Vol] 7.9 g/dL Low 13 - 18 g/dL [place], [place] Comment on above: Test Performed by [facility], [place] [address] Interpretation and review of laboratory results Abnormal [place], [place] MCH (RBC) [Entitic mass] 32.5 pg 26 - 34 pg [place], [place] Comment on above: Test Performed by [facility], [place] [address] MCHC (RBC) [Mass/Vol] 34.1 % 32 - 36 % [place], [place] Comment on above: Test Performed by [facility], [place] [address] MCV (RBC) [Entitic vol] 95.0 fL 80 - 98 fL [place], [place] Comment on above: Test Performed by [facility], [place] [address] Platelet mean volume (Bld) [Entitic vol] 8.1 fL 7.4 - 10.4 fL [place], [place] Comment on above: Test Performed by [facility], [place] [address] Platelets (Bld) [#/Vol] 138 10*3/uL Low 140 - 440 10*3/uL [place] Comment on above: Test Performed by [facility], [place] [address] RBC (Bld) [#/Vol] 2.43 10*6/uL Low 4.4 - 5.9 10*6/uL [place] Comment on above: Test Performed by [facility], [address] [place] [address] WBC (Bld) [#/Vol] 10.5 10*3/uL 3.6 - 10.7 10*3/uL [place] Test Performed by [facility], [address] [place] [address] [place], [place] CR Chest Portableon 12-16-19 20 CR Chest Portable Patient Name: DOUGLAS SIMON Jr Diagnostic Radiology Exam Date/Time 12/16/2019 06:42:08 EDT Exam CR Chest Portable Ordering Physician COLTON MARROQUIN Accession Number [id number] CPT4 Codes 50732 () Reason For Exam SOB Report INDICATION:Shortness of breath. PORTABLE CHEST: COMPARISON: 12/15/2019. Lung volumes are shallow. Mild worsening of the left lower lung atelectasis. Mild elevation of the right hemidiaphragm is stable. Heart and mediastinal contours are stable. Endotracheal tube has been removed. Louise-Iza catheter is in satisfactory position. No pneumothorax. IMPRESSION: Removal of the endotracheal tube. Mild worsening left lower lung atelectasis. 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 : 1955 Requested By: JOSHUA TA Order Number: [id number] Reading MD: Morgan Sanchez Measurements Intervals [place] Rate: 118 P: 24 CA: 140 QRS: 17 QRSD: 82 T: -13 QT: 318 QTc: 446 Interpretive Statements Sinus tachycardia Borderline T wave abnormalities Electronically Signed On 12-16-2019 7:57:06 EDT by [facility], [facility], [facility] Incoming Cardiology Results From [facility] - 12/16/2019 7:58 AM EDT [facility] Test Date: 2019-12-15 Pat Name: Douglas Callaway Department: [facility] Room: 1HLU Gender: M Drafter Electrical: SOPHY : 1955 Requested By: JOSHUA TA Order Number: [id number] Reading MD: Morgan Sanchez Measurements Intervals [place] Rate: 118 P: 24 CA: 140 QRS: 17 QRSD: 82 T: -13 QT: 318 QTc: 446 Interpretive Statements Sinus tachycardia Borderline T wave abnormalities Electronically Signed On 12-16-2019 7:57:06 EDT by [facility], [place] EKG 12 leadon 12-16-2019 [facility] Test Date: 2019-12-16 Pat Name: Douglas Callaway Department: [facility] Room: [id number] Gender: M Drafter Electrical: SOPHY : 1955 Requested By: COLTON MARROQUIN Order Number: [id number] Reading MD: Morgan Sanchez Measurements Intervals [place] Rate: 130 P: 44 CA: 130 QRS: 36 QRSD: 80 T: -13 QT: 311 QTc: 458 Interpretive Statements Sinus tachycardia Borderline T abnormalities, inferior leads Electronically Signed On 12-16-2019 10:55:45 EDT by [facility], [facility], [facility] Incoming Cardiology Results From [facility] - 12/16/2019 10:56 AM EDT [facility] Test Date: 2019-12-16 Pat Name: Douglas Callaway [facility]: 1HLU06 Gender: M [employer]fter Electrical: SOPHY : 1955 Requested By: COLTON MARROQUIN Order Number: [id number] Reading MD: Morgan Sanchez Measurements Intervals [place] Rate: 130 P: 44 CA: 130 QRS: 36 QRSD: 80 T: -13 QT: 311 QTc: 458 Interpretive Statements Sinus tachycardia Borderline T abnormalities, inferior leads Electronically Signed On 12-16-2019 10:55:45 EDT by [facility], [place] Glucose,Bedsideon 12-16-2019 Glucose [Mass/Vol] 107 mg/dL High [address] Comment on above: Result Comment: Test performed by glucose meter. Results may be 10%-15% lower than serum/plasma values. (CLIA ID [id number]) Performed By: #### H EMOG, HA1C2, PT, BMP3, LFT3 #### [employer] [facility] [address] [place] [address] Glucose [Mass/Vol] 133 mg/dL [address] Comment on above: Result Comment: Test performed by glucose meter. Results may be 10%-15% lower than serum/plasma values. (CLIA ID [id number]) Performed By: #### H EMOG, HA1C2, PT, BMP3, LFT3 #### [employer] [address] [place] [address] Glucose [Mass/Vol] 174 mg/dL [address] Comment on above: Result Comment: Test performed by glucose meter. Results may be 10%-15% lower than serum/plasma values. (CLIA ID [id number]) Performed By: #### H EMOG, HA1C2, PT, BMP3, LFT3 #### [employer] [address] [place] [address] Glucose [Mass/Vol] 197 mg/dL [address] Comment on above: Result Comment: Test performed by glucose meter. Results may be 10%-15% lower than serum/plasma values. (CLIA ID [id number]) Performed By: #### H EMOG, HA1C2, PT, BMP3, LFT3 #### [employer] [address] [place] [address] Glucose [Mass/Vol] 174 mg/dL [address] Comment on above: Result Comment: Test performed by glucose meter. Results may be 10%-15% lower than serum/plasma values. (CLIA ID [id number]) Performed By: #### H EMOG, HA1C2, PT, BMP3, LFT3 #### [facility] [address] [place] [address] Glucose [Mass/Vol] 104 mg/dL High 70-100 [facility] Comment on above: Result Comment: Test performed by glucose meter. Results may be 10%-15% lower than serum/plasma values. (CLIA ID [id number]) Performed By: #### H EMOG, HA1C2, PT, BMP3, LFT3 #### [facility] [address] [place] [address] Glucose [Mass/Vol] 75 mg/dL Normal 70-100 [place], [place] Comment on above: Result Comment: Test performed by glucose meter. Results may be 10%-15% lower than serum/plasma values. (CLIA ID [id number]) Performed By: #### H EMOG, HA1C2, PT, BMP3, LFT3 #### [place] [address] [place] [address] Test performed by gl ucose meter. Results may be 10%-15% lower than serum/plasma values. (CLIA ID [id number]) Glucose [Mass/Vol] 65 mg/dL Low 70-100 [facility] Comment on above: Result Comment: Test performed by glucose meter. Results may be 10%-15% lower than serum/plasma values. (CLIA ID [id number]) Performed By: #### H EMOG, HA1C2, PT, BMP3, LFT3 #### [facility] [address] [place] [address] Glucose [Mass/Vol] 71 mg/dL Normal 70-100 [facility] Comment on above: Result Comment: Test performed by glucose meter. Results may be 10%-15% lower than serum/plasma values. (CLIA ID [id number]) Performed By: #### H EMOG, HA1C2, PT, BMP3, LFT3 #### [facility] [address] [place] [address] Glucose [Mass/Vol] 97 mg/dL Normal 70-100 [facility] Comment on above: Result Comment: Test performed by glucose meter. Results may be 10%-15% lower than serum/plasma values. (CLIA ID [id number]) Performed By: #### H EMOG, HA1C2, PT, BMP3, LFT3 #### [facility] [address] [place] [address] Glucose [Mass/Vol] 115 mg/dL High 70-100 [facility] Comment on above: Result Comment: Test performed by glucose meter. Results may be 10%-15% lower than serum/plasma values. (CLIA ID [id number]) Performed By: #### H EMOG, HA1C2, PT, BMP3, LFT3 #### [employer] [facility] [address] [place] [address] Glucose [Mass/Vol] 134 mg/dL High 70-100 [facility] Comment on above: Result Comment: Test performed by glucose meter. Results may be 10%-15% lower than serum/plasma values. (CLIA ID [id number]) Performed By: #### H EMOG, HA1C2, PT, BMP3, LFT3 #### [facility] [employer] [place] [place] [address] Glucose [Mass/Vol] 119 mg/dL High 70-100 [facility] Comment on above: Result Comment: Test performed by glucose meter. Results may be 10%-15% lower than serum/plasma values. (CLIA ID [id number]) Performed By: #### H EMOG, HA1C2, PT, BMP3, LFT3 #### [employer] [facility] [address] [place] [address] Glucose [Mass/Vol] 72 mg/dL Normal 70-100 [facility] Comment on above: Result Comment: Test performed by glucose meter. Results may be 10%-15% lower than serum/plasma values. (CLIA ID [id number]) Performed By: #### H EMOG, HA1C2, PT, BMP3, LFT3 #### [employer] [facility] [address] [place] [address] Glucose [Mass/Vol] 91 mg/dL Normal 70-100 [facility] Comment on above: Result Comment: Test performed by glucose meter. Results may be 10%-15% lower than serum/plasma values. (CLIA ID [id number]) Performed By: #### H EMOG, HA1C2, PT, BMP3, LFT3 #### [facility] [employer] [facility] [address] [place] [address] Glucose [Mass/Vol] 76 mg/dL Normal 70-100 [facility] Comment on above: Result Comment: Test performed by glucose meter. Results may be 10%-15% lower than serum/plasma values. (CLIA ID [id number]) Performed By: #### H EMOG, HA1C2, PT, BMP3, LFT3 #### [employer] [address] [place] [address] Glucose [Mass/Vol] 90 mg/dL Normal 70-100 [facility] Comment on above: Result Comment: Test performed by glucose meter. Results may be 10%-15% lower than serum/plasma values. (CLIA ID [id number]) Performed By: #### H EMOG, HA1C2, PT, BMP3, LFT3 #### [facility] [employer] [address] [place] [address] Glucose [Mass/Vol] 82 mg/dL Normal 70-100 [facility] Comment on above: Result Comment: Test performed by glucose meter. Results may be 10%-15% lower than serum/plasma values. (CLIA ID [id number]) Performed By: #### H EMOG, HA1C2, PT, BMP3, LFT3 #### [employer] [facility] [address] [place] [address] Glucose [Mass/Vol] 91 mg/dL Normal 70-100 [facility] Comment on above: Result Comment: Test performed by glucose meter. Results may be 10%-15% lower than serum/plasma values. (CLIA ID [id number]) Performed By: #### H EMOG, HA1C2, PT, BMP3, LFT3 #### [employer] [facility] [address] [place] [address] Glucose [Mass/Vol] 90 mg/dL Normal 70-100 [facility] Comment on above: Result Comment: Test performed by glucose meter. Results may be 10%-15% lower than serum/plasma values. (CLIA ID [id number]) Performed By: #### H EMOG, HA1C2, PT, BMP3, LFT3 #### [address] [place] [address] Glucose [Mass/Vol] 97 mg/dL Normal 70-100 [facility] Comment on above: Result Comment: Test performed by glucose meter. Results may be 10%-15% lower than serum/plasma values. (CLIA ID [id number]) Performed By: #### H EMOG, HA1C2, PT, BMP3, LFT3 #### [address] [place] [address] Glucose [Mass/Vol] 98 mg/dL Normal 70-100 [facility] Comment on above: Result Comment: Test performed by glucose meter. Results may be 10%-15% lower than serum/plasma values. (CLIA ID [id number]) Performed By: #### H EMOG, HA1C2, PT, BMP3, LFT3 #### [facility] [employer] [address] [place] [address] Glucose [Mass/Vol] 109 mg/dL High 70-100 [facility] Comment on above: Result Comment: Test performed by glucose meter. Results may be 10%-15% lower than serum/plasma values. (CLIA ID [id number]) Performed By: #### H EMOG, HA1C2, PT, BMP3, LFT3 #### [address] [place] [address] Glucose [Mass/Vol] 109 mg/dL High 70-100 [facility] Comment on above: Result Comment: Test performed by glucose meter. Results may be 10%-15% lower than serum/plasma values. (CLIA ID [id number]) Performed By: #### H EMOG, HA1C2, PT, BMP3, LFT3 #### [facility] [address] [place], [place] Glucose [Mass/Vol] 113 mg/dL High 70-100 [facility] Comment on above: Result Comment: Test performed by glucose meter. Results may be 10%-15% lower than serum/plasma values. (CLIA ID [id number]) Performed By: #### H EMOG, HA1C2, PT, BMP3, LFT3 #### [address] [address] [place], [place] Hemogramon 12-16-2019 Erythrocyte distribution width (RBC) [Ratio] 13.6 % Normal 11.5-14.5 [facility] Comment on above: Performed By: #### H EMOG, HA1C2, PT, BMP3, LFT3 #### [address] [address] [place], [place] Hematocrit (Bld) [Volume fraction] 23.1 % Low 40.0-52.0 [facility] Comment on above: Performed By: #### H EMOG, HA1C2, PT, BMP3, LFT3 #### [place] [place], [place] Hemoglobin (Bld) [Mass/Vol] 7.9 g/dL Low 13.0-18.0 [facility] Comment on above: Performed By: #### H EMOG, HA1C2, PT, BMP3, LFT3 #### [address] [address] [place], [place] MCH (RBC) [Entitic mass] 32.5 pg Normal 26.0-34.0 [facility] Comment on above: Performed By: #### H EMOG, HA1C2, PT, BMP3, LFT3 #### [address] MCHC (RBC) [Mass/Vol] 34.1 % Normal 32.0-36.0 [facility] Comment on above: Performed By: #### H EMOG, HA1C2, PT, BMP3, LFT3 #### [address] [address] [place], [place] MCV (RBC) [Entitic vol] 95.0 fL Normal 80.0-98.0 [facility] Comment on above: Performed By: #### H EMOG, HA1C2, PT, BMP3, LFT3 #### [address] Platelet mean volume (Bld) [Entitic vol] 8.1 fL Normal 7.4-10.4 [facility] Comment on above: Performed By: #### H EMOG, HA1C2, PT, BMP3, LFT3 #### [address] Platelets (Bld) [#/Vol] 138 10*3/uL Low 140-440 [facility] Comment on above: Performed By: #### H EMOG, HA1C2, PT, BMP3, LFT3 #### [address] RBC (Bld) [#/Vol] 2.43 10*6/uL Low 4.40-5.90 [facility] Comment on above: Performed By: #### H EMOG, HA1C2, PT, BMP3, LFT3 #### [address] WBC (Bld) [#/Vol] 10.5 10*3/uL Normal 3.6-10.7 [facility] Comment on above: Performed By: #### H EMOG, HA1C2, PT, BMP3, LFT3 #### [address] Magnesiumon 12-16-2019 Magnesium [Mass/Vol] 2.2 mg/dL Normal 1.6-2.3 [facility] Comment on above: Performed By: #### H EMOG, HA1C2, PT, BMP3, LFT3 #### [address] Magnesium [Mass/Vol] 2.2 mg/dL 1.6 - 2.3 mg/dL [facility], [place] Otheron 12-16-2019 Test Performed by [facility], [facility] [place] [address] [facility], [place] Test Performed by [facility], [address] [place] [address] [facility] Test Performed by [facility], [address] [place] [address] [facility], [place] POCT Glucoseon 12-16-2019 Glucose [Mass/Vol] 78 mg/dL 70 - 100 mg/dL [place], [place] Comment on above: Test performed by gl ucose meter. Results may be 10%-15% lower than serum/plasma values. (CLIA ID [id number]) Glucose [Mass/Vol] 100 mg/dL 70 - 100 mg/dL [place], [place] Comment on above: Test performed by gl ucose meter. Results may be 10%-15% lower than serum/plasma values. (CLIA ID [id number]) Test Performed by [facility], [address] [facility] [place] [address] [place], [place] Glucose [Mass/Vol] 107 mg/dL High 70 - 100 mg/dL [place] Comment on above: Test performed by gl ucose meter. Results may be 10%-15% lower than serum/plasma values. (CLIA ID [id number]) Interpretation and review of laboratory results Abnormal [facility], [place] Test Performed by [facility], [address] [facility] [place] [address] [place], [place] Glucose [Mass/Vol] 133 mg/dL High 70 - 100 mg/dL [place] Comment on above: Test performed by gl ucose meter. Results may be 10%-15% lower than serum/plasma values. (CLIA ID [id number]) Interpretation and review of laboratory results Abnormal [facility], [place] Test Performed by [facility], [address] [place] [address] [place], [place] Glucose [Mass/Vol] 174 mg/dL High 70 - 100 mg/dL [place] Comment on above: Test performed by gl ucose meter. Results may be 10%-15% lower than serum/plasma values. (CLIA ID [id number]) Interpretation and review of laboratory results Abnormal [facility] [place] Test Performed by [facility], [address] [place] [address] [facility] [place] Glucose [Mass/Vol] 197 mg/dL High 70 - 100 mg/dL [facility] [place] Comment on above: Test performed by gl ucose meter. Results may be 10%-15% lower than serum/plasma values. (CLIA ID [id number]) Interpretation and review of laboratory results Abnormal [facility] [place] Test Performed by [facility], [address] [place] [address] [facility] [place] Glucose [Mass/Vol] 174 mg/dL High 70 - 100 mg/dL [facility] [place] Comment on above: Test performed by gl ucose meter. Results may be 10%-15% lower than serum/plasma values. (CLIA ID [id number]) Interpretation and review of laboratory results Abnormal [facility] [place] Test Performed by [facility], [address] [place] [address] [facility] [place] Glucose [Mass/Vol] 104 mg/dL High 70 - 100 mg/dL [facility] [place] Comment on above: Test performed by gl ucose meter. Results may be 10%-15% lower than serum/plasma values. (CLIA ID [id number]) Interpretation and review of laboratory results Abnormal [facility] [place] Test Performed by [facility], [address], [place] [address] [facility] [place] Test Performed by [facility], [address] [place] [address] [facility] [place] Glucose [Mass/Vol] 65 mg/dL Low 70 - 100 mg/dL [facility] [place] Comment on above: Test performed by gl ucose meter. Results may be 10%-15% lower than serum/plasma values. (CLIA ID [id number]) Interpretation and review of laboratory results Abnormal [facility] [place] Test Performed by [facility], [address] [place] [address] [facility] [place] Glucose [Mass/Vol] 71 mg/dL 70 - 100 mg/dL [facility] [place] Comment on above: Test performed by gl ucose meter. Results may be 10%-15% lower than serum/plasma values. (CLIA ID [id number]) Test Performed by [facility], [address] [place] [address] [facility] [place] Glucose [Mass/Vol] 97 mg/dL 70 - 100 mg/dL [facility] [place] Comment on above: Test performed by gl ucose meter. Results may be 10%-15% lower than serum/plasma values. (CLIA ID [id number]) Test Performed by [facility], [address] [place] [address] [facility] [place] Glucose [Mass/Vol] 115 mg/dL High 70 - 100 mg/dL [facility] [place] Comment on above: Test performed by gl ucose meter. Results may be 10%-15% lower than serum/plasma values. (CLIA ID [id number]) Interpretation and review of laboratory results Abnormal [facility] [place] Test Performed by [facility], [address] [place] [address] [facility] [place] Glucose [Mass/Vol] 134 mg/dL High 70 - 100 mg/dL [facility] [place] Comment on above: Test performed by gl ucose meter. Results may be 10%-15% lower than serum/plasma values. (CLIA ID [id number]) Interpretation and review of laboratory results Abnormal [facility] [place] Test Performed by [employer] [facility], [address] [place] [address] [facility] [place] Glucose [Mass/Vol] 119 mg/dL High 70 - 100 mg/dL [facility] [place] Comment on above: Test performed by gl ucose meter. Results may be 10%-15% lower than serum/plasma values. (CLIA ID [id number]) Interpretation and review of laboratory results Abnormal [facility] [place] Test Performed by [employer] [facility], [address] [place] [address] [facility] [place] Glucose [Mass/Vol] 72 mg/dL 70 - 100 mg/dL [facility] [place] Comment on above: Test performed by gl ucose meter. Results may be 10%-15% lower than serum/plasma values. (CLIA ID [id number]) Test Performed by [facility], [address] [place] [address] [facility], [place] Glucose [Mass/Vol] 91 mg/dL 70 - 100 mg/dL [facility] Comment on above: Test performed by gl ucose meter. Results may be 10%-15% lower than serum/plasma values. (CLIA ID [id number]) Test Performed by [facility], [address] [place] [address] [facility], [place] Glucose [Mass/Vol] 76 mg/dL 70 - 100 mg/dL [facility] Comment on above: Test performed by gl ucose meter. Results may be 10%-15% lower than serum/plasma values. (CLIA ID [id number]) Test Performed by [facility], [address] [place] [address] [facility], [place] Glucose [Mass/Vol] 90 mg/dL 70 - 100 mg/dL [facility] Comment on above: Test performed by gl ucose meter. Results may be 10%-15% lower than serum/plasma values. (CLIA ID [id number]) Test Performed by [facility], [address] [place] [address] [facility], [place] Glucose [Mass/Vol] 82 mg/dL 70 - 100 mg/dL [facility] Comment on above: Test performed by gl ucose meter. Results may be 10%-15% lower than serum/plasma values. (CLIA ID [id number]) Test Performed by [facility], [address] [place] [address] [facility] [place], [place] Glucose [Mass/Vol] 91 mg/dL 70 - 100 mg/dL [facility] Comment on above: Test performed by gl ucose meter. Results may be 10%-15% lower than serum/plasma values. (CLIA ID [id number]) Test Performed by [facility], [address] [place] [address] [place] Glucose [Mass/Vol] 90 mg/dL 70 - 100 mg/dL [place] Comment on above: Test performed by gl ucose meter. Results may be 10%-15% lower than serum/plasma values. (CLIA ID [id number]) Test Performed by [facility], [address] [place] [address] [place] Glucose [Mass/Vol] 97 mg/dL 70 - 100 mg/dL [place] Comment on above: Test performed by gl ucose meter. Results may be 10%-15% lower than serum/plasma values. (CLIA ID [id number]) Test Performed by [facility], [address] [place] [address] [place] Glucose [Mass/Vol] 98 mg/dL 70 - 100 mg/dL [place] Comment on above: Test performed by gl ucose meter. Results may be 10%-15% lower than serum/plasma values. (CLIA ID [id number]) Glucose [Mass/Vol] 75 mg/dL 70 - 100 mg/dL [place] Comment on above: Test performed by gl ucose meter. Results may be 10%-15% lower than serum/plasma values. (CLIA ID [id number]) XR CHEST PORTABLEon 12-16-19 20 [facility] Incoming Radiology Results From [facility] - 12/16/2019 9:26 AM EDT Patient Name: DOUGLAS CALLAWAY Jr ---Diagnostic Radiology--- Exam Date/Time 12/16/2019 06:42:08 EDT Exam CR Chest Portable Ordering Physician COLTON MARROQUIN Accession Number [id number] CPT4 Codes 06248 () Reason For Exam SOB Report INDICATION:Shortness of breath. PORTABLE CHEST: COMPARISON: 12/15/2019. Lung volumes are shallow. Mild worsening of the left lower lung atelectasis. Mild elevation of the right hemidiaphragm is stable. Heart and mediastinal contours are stable. Endotracheal tube has been removed. Louise-Iza catheter is in satisfactory position. No pneumothorax. IMPRESSION: Removal of the endotracheal tube. Mild worsening left lower lung atelectasis. Report Dictated on --- Final --- Dictated: 12/16/2019 9:23 am Dictating Physician: MD TURK LAURA Signed Date and Time: 12/16/2019 9:24 am Signed by: MD TURK LAURA Transcribed Date and Time: 12/16/2019 9:23 [place], [place] Patient Name: DOUGLAS SIMON Jr ---Diagnostic Radiology--- Exam Date/Time 12/16/2019 06:42:08 EDT Exam CR Chest Portable Ordering Physician COLTON MARROQUIN Accession Number [id number] CPT4 Codes 08925 () Reason For Exam SOB Report INDICATION:Shortness of breath. PORTABLE CHEST: COMPARISON: 12/15/2019. Lung volumes are shallow. Mild worsening of the left lower lung atelectasis. Mild elevation of the right hemidiaphragm is stable. Heart and mediastinal contours are stable. Endotracheal tube has been removed. Louise-Iza catheter is in satisfactory position. No pneumothorax. IMPRESSION: Removal of the endotracheal tube. Mild worsening left lower lung atelectasis. Report Dictated on --- Final --- Dictated: 12/16/2019 9:23 am Dictating Physician: MD TURK LAURA Signed Date and Time: 12/16/2019 9:24 am Signed by: MD TURK LAURA Transcribed Date and Time: 12/16/2019 9:23 [place], [place] Arterial Blood Gaseson 12-14 CO2 [Moles/Vol] 25.5 mmol/L Normal 23.0-27.0 [facility] Comment on above: Performed By: #### I BILLY JAIMES ####[employer] [place] [address] HCO3 (Bld) [Moles/Vol] 24.2 mmol/L Normal 21.0-25.0 [facility] Comment on above: Performed By: #### I BILLY JAIMES ####[facility] [place], [place] Hemoglobin (Bld) [Mass/Vol] 8.3 g/dL Normal ScreenOnly [facility] Comment on above: Performed By: #### I BILLY JAIMES ####[place] [place] Oxygen (Bld) [Partial pressure] 373.8 mm[Hg] High 80.0-100.0 [facility] Comment on above: Performed By: #### I BILLY JAIMES ####[address] Oxygen saturation in Blood 98.6 % Normal 95.0-100.0 [facility] Comment on above: Performed By: #### I BILLY JAIMES ####[address] [place] pCO2 40.3 mm[Hg] Normal 35.0-45.0 [facility] Comment on above: Performed By: #### I BILLY JAIMES ####[address] pH (Bld) 7.397 Normal 7.350-7.450 [facility] Comment on above: Performed By: #### I BILLY JAIMES ####[address] Std Base Excess -0.6 mmol/L Normal -3.0-3.0 [facility] Comment on above: Performed By: #### I AB FIONAG ####[address] FIO2 No data Normal [facility] Comment on above: Performed By: #### I BILLY JAIMES ####[address] Basic Metabolic Panelon 12-05-2019 Anion gap [Moles/Vol] 12 Normal [facility] Comment on above: Performed By: #### H EMOG, PT/AP, BMP3, MG3, PHOS3 ####[address] Calcium [Mass/Vol] 8.8 mg/dL Normal 8.4-10.4 [facility] Comment on above: Performed By: #### H EMOG, PT/AP, BMP3, MG3, PHOS3 ####[address] [place] CO2 [Moles/Vol] 22 mmol/L Normal 22-30 [facility] Comment on above: Performed By: #### H EMOG, PT/AP, BMP3, MG3, PHOS3 ####[address] [place] Glucose [Mass/Vol] 93 mg/dL Normal 70-100 [facility] Comment on above: Performed By: #### H EMOG, PT/AP, BMP3, MG3, PHOS3 ####[place] [address] [place] Urea nitrogen [Mass/Vol] 19 mg/dL Normal 7-20 [facility] Comment on above: Performed By: #### H EMOG, PT/AP, BMP3, MG3, PHOS3 ####[address] [place] Creatinine [Mass/Vol] 0.95 mg/dL Normal 0.52-1.25 [facility] Comment on above: Performed By: #### H EMOG, PT/AP, BMP3, MG3, PHOS3 ####[address] [place] GFR/1.73 sq M predicted among blacks MDRD (S/P/Bld) [Vol rate/Area] mL/min/{1.73_m2} Normal >60 [facility] Comment on above: Performed By: #### H EMOG, PT/AP, BMP3, MG3, PHOS3 ####[address] [place] GFR/1.73 sq M predicted among non-blacks MDRD (S/P/Bld) [Vol rate/Area] mL/min/{1.73_m2} Normal >60 [facility] Comment on above: Result Comment: Sour ce- MDRD equation with creatinine calibration to IDMS(NKDEP) eGFR not recommended for drug dose adjustment Performed By: #### H EMOG, PT/AP, BMP3, MG3, PHOS3 ####[facility] [id number] [place] [address] Potassium [Moles/Vol] 3.2 mmol/L Low 3.5-5.1 [facility] Comment on above: Performed By: #### H EMOG, PT/AP, BMP3, MG3, PHOS3 ####[facility] [id number] [facility] [place] [address] Sodium [Moles/Vol] 142 mmol/L Normal 135-145 [facility] Comment on above: Performed By: #### H EMOG, PT/AP, BMP3, MG3, PHOS3 ####[facility] [id number] [facility] [address] Chloride [Moles/Vol] 108 mmol/L High 98-107 [facility] Comment on above: Performed By: #### H EMOG, PT/AP, BMP3, MG3, PHOS3 ####[facility] [id number] [facility] [address] Anion gap [Moles/Vol] 12 mmol/L [place], [place] Comment on above: Test Performed by [facility], [facility] [place] [address] Calcium [Mass/Vol] 8.8 mg/dL 8.4 - 10. 4 mg/dL [place], [place] Comment on above: Test Performed by [facility], [facility] [place] [address] Chloride [Moles/Vol] 108 mmol/L High 98 - 107 mmol/L [place] Comment on above: Test Performed by [facility], [facility] [place] [address] CO2 [Moles/Vol] 22 mmol/L 22 - 30 mmol/L [place] Comment on above: Test Performed by [facility], [place] [address] Creatinine [Mass/Vol] 0.95 mg/dL 0.52 - 1.25 mg/dL [place] Comment on above: Test Performed by [facility], [place] [address] EGFR IF NonAfrican Palauan >60.0 >60 mL/min [place], [place] Comment on above: Test Performed by [facility], [place] [address] Source- MDRD equation with creatinine calibration to IDMS(NKDEP) eGFR not recommended for drug dose adjustment GFR/1.73 sq M predicted among blacks MDRD (S/P/Bld) [Vol rate/Area] mL/min/{1.73_m2} >60 mL/min [place] Comment on above: Test Performed by [facility], [place] [address] Glucose [Mass/Vol] 93 mg/dL 70 - 100 mg/dL [place] Comment on above: Test Performed by [facility], [facility] [place] [address] Potassium [Moles/Vol] 3.2 mmol/L Low 3.5 - 5.1 mmol/L [place] Comment on above: Test Performed by [facility], [place] [address] Sodium [Moles/Vol] 142 mmol/L 135 - 145 mmol/L [place] Urea nitrogen [Mass/Vol] 19 mg/dL 7 - 20 mg/dL [place] Comment on above: Test Performed by [facility], [facility] [place] [address] Blood Gas, Arterialon 2019 Base Excess, Arterial -0.6 mmol/L -3 - 3 mmol/L [place] Comment on above: Test Performed by [facility], [place] [address] HCO3, Arterial 24.2 mmol/L 21 - 25 mmol/L [place] Comment on above: Test Performed by [facility], [place] [address] Hemoglobin (Bld) [Mass/Vol] 8.3 g/dL ScreenOnly [place], [place] Interpretation and review of laboratory results Abnormal [place], [place] Oxygen saturation in Blood 98.6 % 95 - 100 % [place] Comment on above: Test Performed by [facility], [address] [facility] [place] [address] pCO2, Arterial 40.3 mm[Hg] 35 - 45 mm[Hg] [place], [place] Comment on above: Test Performed by [facility], [address] [facility] [place] [address] pH, Arterial 7.397 [place], [place] Comment on above: Test Performed by [facility], [address] [facility] [place] [address] pO2, Arterial 373.8 mm[Hg] High 80 - 100 mm[Hg] [place] Comment on above: Test Performed by [facility], [address] [facility] [place] [address] Sodium [Moles/Vol] No data [place], [place] Comment on above: Test Performed by [facility], [facility] [address] [facility] [place] [address] TCO2, Arterial 25.5 mmol/L 23 - 27 mmol/L [place], [place] Comment on above: Test Performed by [facility], [facility] [address] [facility] [place] [address] Test Performed by [facility], [place] [address] [place], [place] CBCon 12-15-2019 Erythrocyte distribution width (RBC) [Ratio] 13.9 % 11.5 - 14.5 % [place], [place] Comment on above: Test Performed by [facility], [facility] [address] [facility] [place] [address] Hematocrit (Bld) [Volume fraction] 23.3 % Low 40 - 52 % [place], [place] Comment on above: Test Performed by [facility], [address] [facility] [place] [address] Hemoglobin (Bld) [Mass/Vol] 7.9 g/dL Low 13 - 18 g/dL [place], [place] Comment on above: Test Performed by [facility], [address] [place] [address] REPEATED Interpretation and review of laboratory results Abnormal [place] MCH (RBC) [Entitic mass] 32.5 pg 26 - 34 pg [place], [place] Comment on above: Test Performed by [facility], [address] [place] [address] MCHC (RBC) [Mass/Vol] 34.0 % 32 - 36 % [place], [place] Comment on above: Test Performed by [facility], [address] [place] [address] MCV (RBC) [Entitic vol] 95.6 fL 80 - 98 fL [place], [place] Comment on above: Test Performed by [facility], [address] [place] [address] Platelet mean volume (Bld) [Entitic vol] 7.4 fL 7.4 - 10.4 fL [place], [place] Comment on above: Test Performed by [facility], [address] [place] [address] Platelets (Bld) [#/Vol] 105 10*3/uL Low 140 - 440 10*3/uL [place], [place] Comment on above: Test Performed by [facility], [address] [place] [address] RBC (Bld) [#/Vol] 2.43 10*6/uL Low 4.4 - 5.9 10*6/uL [place], [place] Comment on above: Test Performed by [facility], [address] [place] [address] WBC (Bld) [#/Vol] 12.0 10*3/uL High 3.6 - 10.7 10*3/uL [place] Test Performed by [facility], [address] [place] [address] [place], [place] CR Chest Portableon 12-15-19 20 CR Chest Portable Patient Name: DOUGLAS SIMON Jr Diagnostic Radiology Exam Date/Time 12/15/2019 13:23:36 EDT Exam CR Chest Portable Ordering Physician COLTON MARROQUIN Accession Number [id number] CPT4 Codes 31645 () Reason For Exam ETT placement Report CHEST: CLINICAL INDICATION: Postop. ET tube placement TECHNIQUE: AP portable chest COMPARISON: 12/12/2019 FINDINGS: The tip of endotracheal tube terminates in the mid trachea. A right IJ Louise-Iza catheter terminates at the level of the [...] Transcribed Date and Time: 12/15/2019 1:22 Normal [facility] Calcium, Ionizedon 0 Ionized Ca 4.70 mg/dL 4.3 - 5.2 mg/dL [place], [place] pH (Bld) 7.41 [pH] [place], [place] Comment on above: Test Performed by [address] [address] Test Performed by [id number] [place] [address] Calcium,Ionizedon 12-15-2019 pH, Ionized Calcium 7.41 Normal 7.31-7.46 [facility] Comment on above: Performed By: #### I CA, ABG ####[address] [place] [address] Ionized Ca,Measured 4.70 mg/dL Normal 4.30-5.20 [facility] Comment on above: Performed By: #### I CA, ABG ####[address] [place] [address] ECHO Transesophagealon 12-14 Robin, [facility] Incoming Cardiology Results From [facility] - 12/15/2019 3:13 PM EDT TRANSESOPHAGEAL ECHOCARDIOGRAM Intraoperative-Pre Pump Only PATIENT: Douglas Callaway STUDY DATE: 12/15/2019 : 1955 AGE: 64 HT/WT: 172.7 cm (68 77.3 kg (170.1 in) lb) GENDER: M BP: 127 / 75 LOCATION: [facility] PATIENT Inpatient main STATUS: *ORDERING PHYSICIAN: * Colton Marroquin MD *READING PHYSICIAN: * Dee, *VACUUM TECHNICIAN: * Lissa Page RDCS, Lamar AE, CCT, [...] by Lamar Price 12/15/2019 15:13 Prior Signatures: [facility]- [place], [place] TRANSESOPHAGEAL ECHOCARDIOGRAM Intraoperative-Pre Pump Only PATIENT: Douglas Callaway STUDY DATE: 12/15/2019 : 1955 AGE: 64 HT/WT: 172.7 cm (68 77.3 kg (170.1 in) lb) GENDER: M BP: 127 / 75 LOCATION: [facility] PATIENT Inpatient main STATUS: *ORDERING PHYSICIAN: * Colton Marroquni MD *READING PHYSICIAN: * Dee, *VACUUM TECHNICIAN: * Lissa Page [facility], Lamar AE, CCT, [facility] INDICATIONS: CABG. CONCLUSIONS SUMMARY: 1. Left ventricle: [...] by Lamar Price 12/15/2019 15:13 Prior Signatures: [facility] Echo 2D/3D ALFREDITO w/wo Contrast on 12-15-2019 Echo 2D/3D ALFREDITO w/wo Contrast Patient Name: DOUGLAS CALLAWAY Jr Ultrasound Exam Date/Time 12/15/2019 08:13:10 EDT Exam Echo 2D/3D ALFREDITO w/wo Contrast Ordering Physician COLTON MARROQUIN Accession Number [id number] Reason For Exam CABG Report TRANSESOPHAGEAL ECHOCARDIOGRAM Intraoperative-Pre Pump Only PATIENT: Douglas Callaway STUDY DATE: 12/15/2019 : 1955 AGE: 64 HT/WT: 172.7 cm (68 77.3 kg (170.1 in) lb) GENDER: M BP: 127 / 75 LOCATION: [facility] PATIENT Inpatient main STATUS: *ORDERING PHYSICIAN: * Colton Marroquin MD *READING PHYSICIAN: * Dee, *VACUUM TECHNICIAN: * Lissa Page RDCS, Lamar GRUBER, CCT, [...] pm Signed by: MD PRICE [place]AM Normal [facility] Glucose,Bedsideon 12-15-2019 Glucose [Mass/Vol] 166 mg/dL High 70-100 [facility] Comment on above: Result Comment: Test performed by glucose meter. Results may be 10%-15% lower than serum/plasma values. (CLIA ID [id number]) Performed By: #### H EMOG, HA1C2, PT, BMP3, LFT3 #### [facility] [address] [address] Glucose [Mass/Vol] 214 mg/dL High 70-100 [facility] Comment on above: Result Comment: Test performed by glucose meter. Results may be 10%-15% lower than serum/plasma values. (CLIA ID [id number]) Performed By: #### H EMOG, HA1C2, PT, BMP3, LFT3 #### [facility] [address] [place] [address] Glucose [Mass/Vol] 195 mg/dL High 70-100 [facility] Comment on above: Result Comment: Test performed by glucose meter. Results may be 10%-15% lower than serum/plasma values. (CLIA ID [id number]) Performed By: #### H EMOG, HA1C2, PT, BMP3, LFT3 #### [facility] [address] [place] [address] Glucose [Mass/Vol] 186 mg/dL High 70-100 [facility] Comment on above: Result Comment: Test performed by glucose meter. Results may be 10%-15% lower than serum/plasma values. (CLIA ID [id number]) Performed By: #### H EMOG, HA1C2, PT, BMP3, LFT3 #### [facility] [address] [place] [address] Glucose [Mass/Vol] 175 mg/dL High 70-100 [facility] Comment on above: Result Comment: Test performed by glucose meter. Results may be 10%-15% lower than serum/plasma values. (CLIA ID [id number]) Performed By: #### H EMOG, HA1C2, PT, BMP3, LFT3 #### [employer] [facility] [address] [place] [address] Glucose [Mass/Vol] 223 mg/dL High 70-100 [facility] Comment on above: Result Comment: Test performed by glucose meter. Results may be 10%-15% lower than serum/plasma values. (CLIA ID [id number]) Performed By: #### H EMOG, HA1C2, PT, BMP3, LFT3 #### [facility] [address] [place] [address] Glucose [Mass/Vol] 243 mg/dL High 70-100 [facility] Comment on above: Result Comment: Test performed by glucose meter. Results may be 10%-15% lower than serum/plasma values. (CLIA ID [id number]) Performed By: #### H EMOG, HA1C2, PT, BMP3, LFT3 #### [facility] [address] [place] [address] Glucose [Mass/Vol] 195 mg/dL High 70-100 [facility] Comment on above: Result Comment: Test performed by glucose meter. Results may be 10%-15% lower than serum/plasma values. (CLIA ID [id number]) Performed By: #### H EMOG, HA1C2, PT, BMP3, LFT3 #### [facility] [address] [place] [address] Glucose [Mass/Vol] 87 mg/dL Normal 70-100 [facility] Comment on above: Result Comment: Test performed by glucose meter. Results may be 10%-15% lower than serum/plasma values. (CLIA ID [id number]) Performed By: #### B GLU ####[facility] [address] [place] [address] Glucose [Mass/Vol] 86 mg/dL Normal 70-100 [facility] Comment on above: Result Comment: Test performed by glucose meter. Results may be 10%-15% lower than serum/plasma values. (CLIA ID [id number]) Performed By: #### B GLU ####[facility] [address] [place] [address] Glucose [Mass/Vol] 183 mg/dL High 70-100 [facility] Comment on above: Result Comment: Test performed by glucose meter. Results may be 10%-15% lower than serum/plasma values. (CLIA ID [id number]) Performed By: #### B GLU #### [facility] [address] [place] [address] Hemogramon 12-15-2019 Erythrocyte distribution width (RBC) [Ratio] 13.9 % Normal 11.5-14.5 [facility] Comment on above: Performed By: #### H EMOG, PT/AP, BMP3, MG3, PHOS3 ####[address] [place] Hematocrit (Bld) [Volume fraction] 23.3 % Low 40.0-52.0 [facility] Comment on above: Performed By: #### H EMOG, PT/AP, BMP3, MG3, PHOS3 ####[address] [place] Hemoglobin (Bld) [Mass/Vol] 7.9 g/dL Low 13.0-18.0 [facility] Comment on above: Result Comment: REPE ATED Performed By: #### H EMOG, PT/AP, BMP3, MG3, PHOS3 ####[address] [place] MCH (RBC) [Entitic mass] 32.5 pg Normal 26.0-34.0 [facility] Comment on above: Performed By: #### H EMOG, PT/AP, BMP3, MG3, PHOS3 ####[address] [place] MCHC (RBC) [Mass/Vol] 34.0 % Normal 32.0-36.0 [facility] Comment on above: Performed By: #### H EMOG, PT/AP, BMP3, MG3, PHOS3 ####[address] [place] MCV (RBC) [Entitic vol] 95.6 fL Normal 80.0-98.0 [facility] Comment on above: Performed By: #### H EMOG, PT/AP, BMP3, MG3, PHOS3 ####[address] [place] Platelet mean volume (Bld) [Entitic vol] 7.4 fL Normal 7.4-10.4 [facility] Comment on above: Performed By: #### H EMOG, PT/AP, BMP3, MG3, PHOS3 ####[address] [place] Platelets (Bld) [#/Vol] 105 10*3/uL Low 140-440 [facility] Comment on above: Performed By: #### H EMOG, PT/AP, BMP3, MG3, PHOS3 ####[address] [place] RBC (Bld) [#/Vol] 2.43 10*6/uL Low 4.40-5.90 [facility] Comment on above: Performed By: #### H EMOG, PT/AP, BMP3, MG3, PHOS3 ####[address] [place] WBC (Bld) [#/Vol] 12.0 10*3/uL High 3.6-10.7 [facility] Comment on above: Performed By: #### H EMOG, PT/AP, BMP3, MG3, PHOS3 ####[address] Magnesiumon 12-15-2019 Magnesium [Mass/Vol] 3.9 mg/dL High 1.6-2.3 [facility] Comment on above: Performed By: #### H EMOG, PT/AP, BMP3, MG3, PHOS3 ####[address] [place] Magnesium [Mass/Vol] 3.9 mg/dL High 1.6 - 2.3 mg/dL [place], [place] Otheron 12-15-2019 Interpretation and review of laboratory results Abnormal [place], [place] Test Performed by [facility], [address] [place], [place] [address] [place] [address] PATHOGEN REDUCED LR PPHRon 0 12-15-2019 PATHOGEN REDUCED LR PPHR PATHOGEN REDUCED LR PPHR: [id number] transfused 12/15/19 13:44 MSS1 Unit Blood Type: O Unit Blood Rh: POS Blood Product Code: PR2 Unit Number: [id number] Unit Status: transfused Barcoded Unit Number: =[id number] Barcoded Product Code: = Barcoded ABO/Rh: =%5100 Unit Expiration: Unit Volume Transfused: 300 Unit Transfusion Start Date/Time: [id number] Normal [facility] Comment on above: Performed By: #### H EMOG, HA1C2, PT, BMP3, LFT3 #### [facility] [address] [place] [address] POCT Glucoseon 12-15-2019 Glucose [Mass/Vol] 109 mg/dL High 70 - 100 mg/dL [facility] [place] Comment on above: Test performed by gl ucose meter. Results may be 10%-15% lower than serum/plasma values. (CLIA ID [id number]) Interpretation and review of laboratory results Abnormal [facility] Test Performed by [facility], [place] [address] [facility] Glucose [Mass/Vol] 109 mg/dL High 70 - 100 mg/dL [facility] Comment on above: Test performed by gl ucose meter. Results may be 10%-15% lower than serum/plasma values. (CLIA ID [id number]) Interpretation and review of laboratory results Abnormal [facility] [place] Test Performed by [facility], [facility] [address] [facility] [place] [address] [facility] Glucose [Mass/Vol] 113 mg/dL High 70 - 100 mg/dL [facility] Comment on above: Test performed by gl ucose meter. Results may be 10%-15% lower than serum/plasma values. (CLIA ID [id number]) Interpretation and review of laboratory results Abnormal [facility] Test Performed by [facility], [address] [place] [address] [facility] Glucose [Mass/Vol] 166 mg/dL High 70 - 100 mg/dL [facility] [place] Comment on above: Test performed by gl ucose meter. Results may be 10%-15% lower than serum/plasma values. (CLIA ID [id number]) Interpretation and review of laboratory results Abnormal [facility] Test Performed by [facility], [address] [place] [address] [facility] Glucose [Mass/Vol] 214 mg/dL High 70 - 100 mg/dL [facility] Comment on above: Test performed by gl ucose meter. Results may be 10%-15% lower than serum/plasma values. (CLIA ID [id number]) Interpretation and review of laboratory results Abnormal [facility] Test Performed by [facility], [address] [place] [address] [facility] [place] Glucose [Mass/Vol] 195 mg/dL High 70 - 100 mg/dL [facility] Comment on above: Test performed by gl ucose meter. Results may be 10%-15% lower than serum/plasma values. (CLIA ID [id number]) Interpretation and review of laboratory results Abnormal [facility] Test Performed by [facility], [address] [place] [address] [facility] Glucose [Mass/Vol] 186 mg/dL High 70 - 100 mg/dL [facility] [place] Comment on above: Test performed by gl ucose meter. Results may be 10%-15% lower than serum/plasma values. (CLIA ID [id number]) Interpretation and review of laboratory results Abnormal [facility] Test Performed by [facility], [address] [place] [address] [facility] Glucose [Mass/Vol] 175 mg/dL High 70 - 100 mg/dL [facility] [place] Comment on above: Test performed by gl ucose meter. Results may be 10%-15% lower than serum/plasma values. (CLIA ID [id number]) Interpretation and review of laboratory results Abnormal [facility] Test Performed by [facility], [address] [place] [address] [facility] Glucose [Mass/Vol] 223 mg/dL High 70 - 100 mg/dL [facility] Comment on above: Test performed by gl ucose meter. Results may be 10%-15% lower than serum/plasma values. (CLIA ID [id number]) Interpretation and review of laboratory results Abnormal [facility] Test Performed by [facility], [address] [place] [address] [facility] Glucose [Mass/Vol] 243 mg/dL High 70 - 100 mg/dL [facility] Comment on above: Test performed by gl ucose meter. Results may be 10%-15% lower than serum/plasma values. (CLIA ID [id number]) Interpretation and review of laboratory results Abnormal [facility] Test Performed by [facility], [address] [place] [address] [facility] Glucose [Mass/Vol] 195 mg/dL High 70 - 100 mg/dL [facility] [place] Comment on above: Test performed by gl ucose meter. Results may be 10%-15% lower than serum/plasma values. (CLIA ID [id number]) Interpretation and review of laboratory results Abnormal [facility] Test Performed by [facility], [address], [place] [address] [facility] Glucose [Mass/Vol] 87 mg/dL 70 - 100 mg/dL [facility] Comment on above: Test performed by gl ucose meter. Results may be 10%-15% lower than serum/plasma values. (CLIA ID [id number]) Test Performed by [facility], [address] [place] [address] [facility] Glucose [Mass/Vol] 86 mg/dL 70 - 100 mg/dL [facility] Comment on above: Test performed by gl ucose meter. Results may be 10%-15% lower than serum/plasma values. (CLIA ID [id number]) Test Performed by [facility], [address] [place] [address] [facility] Glucose [Mass/Vol] 183 mg/dL High 70 - 100 mg/dL [facility] [place] Comment on above: Test performed by gl ucose meter. Results may be 10%-15% lower than serum/plasma values. (CLIA ID [id number]) Interpretation and review of laboratory results Abnormal [facility] [place] Test Performed by [facility], [address] [place] [address] [place] PREPARE PLATELETS, 2 Product on 12-15-2019 ABO and Rh group Nom (Bld) 7300 [place], [place] Blood product unit ID (Dose) [#] [id number] [place] Sodium [Moles/Vol] [id number] [place] Sodium [Moles/Vol] [id number] mmol/L [place] Sodium [Moles/Vol] transfused [place], [place] Pathogen Reduced Lekuoreduce d Platelet Pheresison 12-15-2019 ABO and Rh group Nom (Bld) 5100 [place], [place] Blood product unit ID (Dose) [#] [id number] [place] Sodium [Moles/Vol] [id number] mmol/L [place] Sodium [Moles/Vol] [id number] [place], [place] Sodium [Moles/Vol] transfused [place], [place] Pheresis Leuko Reducedon Pheresis Leuko Reduced Pheresis Leuko Reduced: [id number] transfused 12/15/19 12:59 MSS1 Unit Blood Type: B Unit Blood Rh: POS Blood Product Code: PA2 Unit Number: [id number] Unit Status: transfused Barcoded Unit Number: =[id number] Barcoded Product Code: = Barcoded ABO/Rh: =%7300 Unit Expiration: Unit Volume Transfused: 300 Unit Transfusion Start Date/Time: Normal [facility] Comment on above: Performed By: #### H EMOG, HA1C2, PT, BMP3, LFT3 #### [facility] [address] [place], [place] Phosphoruson 12-15-2019 Phosphate [Mass/Vol] 2.2 mg/dL Low 2.5-4.5 [facility] Comment on above: Performed By: #### H EMOG, PT/AP, BMP3, MG3, PHOS3 ####[facility] [place], [place] Phosphate [Mass/Vol] 2.2 mg/dL Low 2.5 - 4.5 mg/dL [place] Protime AND APTTon 0 aPTT Coag (Bld) [Time] 24.8 s Normal 20.0-30.5 [facility] Comment on above: Result Comment: NOTE : The therapeutic time for Heparin anticoagulation, based on Xa activity inhibition, is an APTT of 46-80 seconds. Performed By: #### H EMOG, PT/AP, BMP3, MG3, PHOS3 ####[address] [place] [address] INR Coag (PPP) [Relative time] 1.2 High 0.9-1.1 [facility] Comment on above: Result Comment: Pasha [...] #### H EMOG, PT/AP, BMP3, MG3, PHOS3 ####[address] [place] PT Coag (PPP) [Time] 12.6 s High 9.0-12.0 [facility] Comment on above: Result Comment: . Performed By: #### H EMOG, PT/AP, BMP3, MG3, PHOS3 ####[address] [place] [place] [address] Protime/INR & PTTon 12-15-19 20 aPTT Coag (Bld) [Time] 24.8 s 20 - 30.5 s [place], [place] Comment on above: Test Performed by [facility], [address] [place] [address] NOTE: The therapeutic time for Heparin anticoagulation, based on Xa activity inhibition, is an APTT of 46-80 seconds. INR Coag (PPP) [Relative time] 1.2 {INR} [place], [place] Comment on above: Test Performed by [facility], [address] [place] [address] Recommended Anticoagulant Therapy: SEE BELOW ----- INR [...] Infarction PT Coag (PPP) [Time] 12.6 s [facility] 9 - 12 s [place], [place] Comment on above: . XR CHEST PORTABLEon 12-15-19 Patient Name: DOUGLAS SIMON Jr ---Diagnostic Radiology--- Exam Date/Time 12/15/2019 13:23:36 EDT Exam CR Chest Portable Ordering Physician COLTON MARROQUIN Accession Number [id number] CPT4 Codes 91071 () Reason For Exam ETT placement Report CHEST: CLINICAL INDICATION: Postop. ET tube placement TECHNIQUE: AP portable chest COMPARISON: 12/12/2019 FINDINGS: The tip of endotracheal tube terminates in the mid trachea. A right IJ Louise-Iza catheter terminates at the level of the [...] L Transcribed Date and Time: 12/15/2019 1:22 [facility] ID [facility] In[facility] Results From [facility] - 12/15/2019 1:25 PM EDT Patient Name: DOUGLAS CALLAWAY Jr ---Diagnostic Radiology--- Exam Date/Time 12/15/2019 13:23:36 EDT Exam CR Chest Portable Ordering Physician COLTON MARROQUIN Accession Number [id number] CPT4 Codes 81998 () Reason For Exam ETT placement Report CHEST: CLINICAL INDICATION: Postop. ET tube placement TECHNIQUE: AP portable chest COMPARISON: 12/12/2019 FINDINGS: The tip of endotracheal tube terminates in the mid trachea. A right IJ Louise-Iza catheter terminates at the level of the [...] L Transcribed Date and Time: 12/15/2019 1:22 [place], [place] Basic Metabolic Panelon 04-0 Calcium [Mass/Vol] 10.4 mg/dL Normal 8.4-10.4 [facility] Comment on above: Performed By: #### H EMOG, HA1C2, PT, BMP3, LFT3 #### [facility] [address] [place] [address] Glucose [Mass/Vol] 154 mg/dL High 70-100 [facility] Comment on above: Performed By: #### H EMOG, HA1C2, PT, BMP3, LFT3 #### [facility] [address] [place] [address] Anion gap [Moles/Vol] 16 Normal [facility] Comment on above: Performed By: #### H EMOG, HA1C2, PT, BMP3, LFT3 #### [place] [address] [address] [place], [place] CO2 [Moles/Vol] 27 mmol/L Normal 22-30 [facility] Comment on above: Performed By: #### H EMOG, HA1C2, PT, BMP3, LFT3 #### [place] [address] [address] [place], [place] Creatinine [Mass/Vol] 1.33 mg/dL High 0.52-1.25 [facility] Comment on above: Performed By: #### H EMOG, HA1C2, PT, BMP3, LFT3 #### [place] [address] [place], [place] GFR/1.73 sq M predicted among blacks MDRD (S/P/Bld) [Vol rate/Area] mL/min/{1.73_m2} Normal >60 [facility] Comment on above: Performed By: #### H EMOG, HA1C2, PT, BMP3, LFT3 #### [place] [address] [address] [place], [place] GFR/1.73 sq M predicted among non-blacks MDRD (S/P/Bld) [Vol rate/Area] 53.8 mL/min/{1.73_m2} Normal >60 [facility] Comment on above: Result Comment: Sour ce- MDRD equation with creatinine calibration to IDMS(NKDEP) eGFR not recommended for drug dose adjustment Performed By: #### H EMOG, HA1C2, PT, BMP3, LFT3 #### [place] [address] [address] [place], [place] Urea nitrogen [Mass/Vol] 24 mg/dL High 7-20 [facility] Comment on above: Performed By: #### H EMOG, HA1C2, PT, BMP3, LFT3 #### [place] [address] [address] [place], [place] Chloride [Moles/Vol] 101 mmol/L Normal 98-107 [facility] Comment on above: Performed By: #### H EMOG, HA1C2, PT, BMP3, LFT3 #### [place] [address] [place] [address] Potassium [Moles/Vol] 4.6 mmol/L Normal 3.5-5.1 [facility] Comment on above: Performed By: #### H EMOG, HA1C2, PT, BMP3, LFT3 #### [facility] [address] [place] [address] Sodium [Moles/Vol] 144 mmol/L Normal 135-145 [facility] Comment on above: Performed By: #### H EMOG, HA1C2, PT, BMP3, LFT3 #### [facility] [address] [place] [address] Anion gap [Moles/Vol] 16 mmol/L [place], [place] Comment on above: Test Performed by [facility], [address] [place] [address] Calcium [Mass/Vol] 10.4 mg/dL 8.4 - 10. 4 mg/dL [place], [place] Comment on above: Test Performed by [facility], [address] [place] [address] Chloride [Moles/Vol] 101 mmol/L 98 - 107 mmol/L [place], [place] Comment on above: Test Performed by [facility], [address] [place] [address] CO2 [Moles/Vol] 27 mmol/L 22 - 30 mmol/L [place], [place] Comment on above: Test Performed by [facility], [address] [place] [address] Creatinine [Mass/Vol] 1.33 mg/dL High 0.52 - 1.25 mg/dL [place], [place] Comment on above: Test Performed by [facility], [address] [place] [address] EGFR IF NonAfrican [place] 53.8 mL/min >60 [place], [place] Comment on above: Test Performed by [facility], [address] [place] [address] Source- MDRD equation with creatinine calibration to IDMS(NKDEP) eGFR not recommended for drug dose adjustment GFR/1.73 sq M predicted among blacks MDRD (S/P/Bld) [Vol rate/Area] mL/min/{1.73_m2} >60 mL/min [place], [place] Comment on above: Test Performed by [facility], [place] [address] Glucose [Mass/Vol] 154 mg/dL High 70 - 100 mg/dL [place], [place] Comment on above: Test Performed by [facility], [place] [address] Potassium [Moles/Vol] 4.6 mmol/L 3.5 - 5.1 mmol/L [place], [place] Comment on above: Test Performed by [facility], [place] [address] Sodium [Moles/Vol] 144 mmol/L 135 - 145 mmol/L [place], [place] Urea nitrogen [Mass/Vol] 24 mg/dL High 7 - 20 mg/dL [place], [place] Comment on above: Test Performed by [facility], [facility] [place] [address] CBCon 12-12-2019 Erythrocyte distribution width (RBC) [Ratio] 13.5 % 11.5 - 14.5 % [place], [place] Comment on above: Test Performed by [facility], [place] [address] Hematocrit (Bld) [Volume fraction] 45.4 % 40 - 52 % [place], [place] Comment on above: Test Performed by [facility], [place] [address] Hemoglobin (Bld) [Mass/Vol] 14.8 g/dL 13 - 18 g/dL [place], [place] Comment on above: Test Performed by [facility], [place] [address] Interpretation and review of laboratory results Abnormal [place] MCH (RBC) [Entitic mass] 32.0 pg 26 - 34 pg [place], [place] Comment on above: Test Performed by [facility], [place] [address] MCHC (RBC) [Mass/Vol] 32.6 % 32 - 36 % [place], [place] Comment on above: Test Performed by [facility], [place] [address] MCV (RBC) [Entitic vol] 98.1 fL High 80 - 98 fL [place], [place] Comment on above: Test Performed by [facility], [address] [place] [address] Platelet mean volume (Bld) [Entitic vol] 8.9 fL 7.4 - 10.4 fL [place], [place] Comment on above: Test Performed by [facility], [address] [place] [address] Platelets (Bld) [#/Vol] 263 10*3/uL 140 - 440 10*3/uL [place], [place] Comment on above: Test Performed by [facility], [address] [place] [address] RBC (Bld) [#/Vol] 4.62 10*6/uL 4.4 - 5.9 10*6/uL [place] Comment on above: Test Performed by [facility], [address] [place] [address] WBC (Bld) [#/Vol] 11.5 10*3/uL High 3.6 - 10.7 10*3/uL [place] Test Performed by [facility], [address] [facility] [place] [address] [place], [place] CR Chest PA/LATon 12-12-2019 CR Chest PA/LAT Patient Name: DOUGLAS SIMON Jr Diagnostic Radiology Exam Date/Time 12/12/2019 13:17:02 EDT Exam CR Chest PA/LAT Ordering Physician DOMINIQUE CARROLL, ALICIA Adams Accession Number [id number] CPT4 Codes 05083 () Reason For Exam preop evaluation Report [...] Transcribed Date and Time: 12/12/2019 1:35 Normal [facility] Hemoglobin A1Con 12-12-2019 HbA1c (Bld) [Mass fraction] 154 mg/dL Normal [facility] Comment on above: Performed By: #### H EMOG, HA1C2, PT, BMP3, LFT3 #### [address] [address] HbA1c (Bld) [Mass fraction] 7.0 % High 4.0-5.7 [facility] Comment on above: Result Comment: --Hg bA1C levels may not be accurate in patients who have renal disease, received recent blood transfusions, are anemic, or who have dyshemoglobinemia. Performed By: #### H EMOG, HA1C2, PT, BMP3, LFT3 #### [address] [address] eAG 154 mg/dL [place], [place] Comment on above: Test Performed by [facility], [address] [place] [address] HbA1c (Bld) [Mass fraction] 7.0 % High 4 - 5.7 % [place], [place] Comment on above: --HgbA1C levels may not be accurate in patients who have renal disease, received recent blood transfusions, are anemic, or who have dyshemoglobinemia. Interpretation and review of laboratory results Abnormal [place], [place] Hemogramon 12-12-2019 Erythrocyte distribution width (RBC) [Ratio] 13.5 % Normal 11.5-14.5 [facility] Comment on above: Performed By: #### H EMOG, HA1C2, PT, BMP3, LFT3 #### [place] [address] [address] [place], [place] Hematocrit (Bld) [Volume fraction] 45.4 % Normal 40.0-52.0 [facility] Comment on above: Performed By: #### H EMOG, HA1C2, PT, BMP3, LFT3 #### [place] [address] [place], [place] Hemoglobin (Bld) [Mass/Vol] 14.8 g/dL Normal 13.0-18.0 [facility] Comment on above: Performed By: #### H EMOG, HA1C2, PT, BMP3, LFT3 #### [place] [address] [place], [place] MCH (RBC) [Entitic mass] 32.0 pg Normal 26.0-34.0 [facility] Comment on above: Performed By: #### H EMOG, HA1C2, PT, BMP3, LFT3 #### [place] [address] [place], [place] MCHC (RBC) [Mass/Vol] 32.6 % Normal 32.0-36.0 [facility] Comment on above: Performed By: #### H EMOG, HA1C2, PT, BMP3, LFT3 #### [address] MCV (RBC) [Entitic vol] 98.1 fL High 80.0-98.0 [facility] Comment on above: Performed By: #### H EMOG, HA1C2, PT, BMP3, LFT3 #### [address] Platelet mean volume (Bld) [Entitic vol] 8.9 fL Normal 7.4-10.4 [facility] Comment on above: Performed By: #### H EMOG, HA1C2, PT, BMP3, LFT3 #### [place] [address] [place], [place] Platelets (Bld) [#/Vol] 263 10*3/uL Normal 140-440 [facility] Comment on above: Performed By: #### H EMOG, HA1C2, PT, BMP3, LFT3 #### [facility] [address] [place], [place] RBC (Bld) [#/Vol] 4.62 10*6/uL Normal 4.40-5.90 [facility] Comment on above: Performed By: #### H EMOG, HA1C2, PT, BMP3, LFT3 #### [place] [address] [address] [place], [place] WBC (Bld) [#/Vol] 11.5 10*3/uL High 3.6-10.7 [facility] Comment on above: Performed By: #### H EMOG, HA1C2, PT, BMP3, LFT3 #### [place] [address] [address] [place], [place] Hepatic Functionon 0 ALP [Catalytic activity/Vol] 168 U/L High 38-126 [facility] Comment on above: Performed By: #### H EMOG, HA1C2, PT, BMP3, LFT3 #### [place] [address] [address] [place], [place] ALT [Catalytic activity/Vol] 23 U/L Normal 0-49 [facility] Comment on above: Result Comment: The ALT test is performed by an updated assay method. Please note that the reference intervals have been changed and are now sex specific. Performed By: #### H EMOG, HA1C2, PT, BMP3, LFT3 #### [place] [address] [address] [place], [place] AST [Catalytic activity/Vol] 33 U/L Normal 15-46 [facility] Comment on above: Performed By: #### H EMOG, HA1C2, PT, BMP3, LFT3 #### [place] [address] [address] [place], [place] Bilirubin [Mass/Vol] 0.7 mg/dL Normal 0.2-1.3 [facility] Comment on above: Performed By: #### H EMOG, HA1C2, PT, BMP3, LFT3 #### [place] [address] [place] [address] Bilirubin.direct [Mass/Vol] 0.0 mg/dL Normal 0.0-0.3 [facility] Comment on above: Performed By: #### H EMOG, HA1C2, PT, BMP3, LFT3 #### [facility] [address] [place] [address] Protein [Mass/Vol] 8.1 g/dL Normal 6.3-8.2 [facility] Comment on above: Performed By: #### H EMOG, HA1C2, PT, BMP3, LFT3 #### [facility] [address] [place] [address] Albumin [Mass/Vol] 4.8 g/dL Normal 3.5-5.0 [facility] Comment on above: Performed By: #### H EMOG, HA1C2, PT, BMP3, LFT3 #### [facility] [address] [place] [address] Hepatic Function Panelon Albumin [Mass/Vol] 4.8 g/dL 3.5 - 5 g/dL [place] ALP [Catalytic activity/Vol] 168 U/L High 38 - 126 U/L [place], [place] Comment on above: Test Performed by [facility], [address] [place] [address] ALT [Catalytic activity/Vol] 23 U/L 0 - 49 U/L [place] Comment on above: Test Performed by [facility], [address] [place] [address] The ALT test is performed by an updated assay method. Please note that the reference intervals have been changed and are now sex specific. AST [Catalytic activity/Vol] 33 U/L 15 - 46 U/L [place] Comment on above: Test Performed by [facility], [address] [place] [address] Bilirubin Ql (U) 0.7 mg/dL 0.2 - 1.3 mg/dL [place], [place] Comment on above: Test Performed by [facility], [place] [address] Bilirubin.direct [Mass/Vol] 0.0 mg/dL 0 - 0.3 mg/dL [place] Comment on above: Test Performed by [facility], [place] [address] Protein [Mass/Vol] 8.1 g/dL 6.3 - 8.2 g/dL [place] Comment on above: Test Performed by [facility], [place] [address] Otheron 12-12-2019 Interpretation and review of laboratory results Abnormal [place], [place] Test Performed by [facility], [facility] [place] [address] [place] [address] Test Performed by [facility], [address] [place] [address] Prothrombin Timeon 0 INR Coag (PPP) [Relative time] 0.9 Normal 0.9-1.1 [facility] Comment on above: Result Comment: Pasha [...] H EMOG, HA1C2, PT, BMP3, LFT3 #### [address] [address] PT Coag (PPP) [Time] 10.1 s Normal 9.0-12.0 [facility] Comment on above: Result Comment: . Performed By: #### H EMOG, HA1C2, PT, BMP3, LFT3 #### [place] [address] [place] [address] Protime-INRon 12-12-2019 INR Coag (PPP) [Relative time] 0.9 {INR} [place], [place] Comment on above: Test Performed by [facility], [place] [address] Recommended Anticoagulant Therapy: SEE BELOW ----- INR [...] [Time] 10.1 s 9 - 12 s [place], [place] Comment on above: . TS GELon 12-12-2019 TS GEL ABO Group: O Rh, Gel: POS Antibody Screen Gel: NEG Normal [facility] Comment on above: Performed By: #### T SGL #### [id number] [place] [address] #### LRC #### [place] [address] [place] [address] TYPE AND SCREENon 12-12-2019 Sodium [Moles/Vol] O [place], [place] Sodium [Moles/Vol] Positive [place] Comment on above: Test Performed by [facility], [address] [place] [address] Sodium [Moles/Vol] Negative [place], [place] Comment on above: Test Performed by [facility], [address] [place] [address] Test Performed by [address] [address] [place] VL Carotid Duplex Ultrasound Completeon 12-12-2019 VL Carotid Duplex Ultrasound Complete Patient Name: DOUGLAS CALLAWAY Jr Ultrasound Exam Date/Time 12/12/2019 12:57:04 EDT Exam VL Carotid Duplex Ultrasound Complete Ordering Physician COLTON MARROQUIN Accession Number [id number] CPT4 Codes 46149 () Reason For Exam Dizziness/pre-op CABG Report [facility] Carotid Duplex Report Ordering Physician: Colton Marroquin MD Technologist Infectious Disease: Coco Servin T Interpreting Physician: Iván Pineda MD Location: [facility] [address] Indications: Dizziness. Pt is pre-op [...] supine position. Images were obtained using a Amperion E9 vascular ultrasound machine. Findings Carotid/vertebral arteries: [...] 3:24 pm Signed by: IVÁN PINEDA Normal [facility] VL DUP CAROTID BILATERALon 0 12-12-2019 [facility] Carotid Duplex Report Ordering Physician: Colton Marroquin MD Technologist Infectious Disease: Coco Servin T Interpreting Physician: Iván Pineda MD Location: [place] [address] [address] [place] Indications: Dizziness. Pt is pre-op for CABG. [...] supine position. Images were obtained using a Amperion E9 vascular ultrasound machine. Findings Carotid/vertebral arteries: [...] signed by Iván Pineda MD 12/12/2019 15:24 [facility] [place], [place], [facility] Cardiology Results From [facility] - 12/12/2019 3:24 PM EDT [facility] Carotid Duplex Report Ordering Physician: Colton Marroquin MD Technologist Infectious Disease: Coco Servin Shawn Interpreting Physician: Iván Pineda MD Location: [place] [address] Indications: Dizziness. Pt is pre-op [...] supine position. Images were obtained using a Amperion E9 vascular ultrasound machine. Findings Carotid/vertebral arteries: [...] signed by Iván Pineda MD 12/12/2019 15:24 [place] XR CHEST STANDARD (2 VW)on 0 12-12-2019 [facility] In[facility] Results From [facility] - 12/12/2019 1:43 PM EDT Patient Name: DOUGLAS CALLAWAY Jr ---Diagnostic Radiology--- Exam Date/Time 12/12/2019 13:17:02 EDT Exam CR Chest PA/LAT Ordering Physician DOMINIQUE CARROLL, ALICIA [place] Accession Number [id number] CPT4 Codes 75452 () Reason For Exam preop evaluation Report [...] AHMAD Transcribed Date and Time: 12/12/2019 1:35 [place] Patient Name: DOUGLAS SIMON Jr ---Diagnostic Radiology--- Exam Date/Time 12/12/2019 13:17:02 EDT Exam CR Chest PA/LAT Ordering Physician DOMINIQUE CARROLL, ALICIA [place] Accession Number [id number] CPT4 Codes 93550 () Reason For Exam preop evaluation Report [...] AHMAD Transcribed Date and Time: 12/12/2019 1:35 [place] Vital Signs Date Time Vital Sign Value Performing Clinician Facility 02-21-2025 10:00-0400 Heart rate 72 /min Iban Ramirez MD Work Phone: [facility] 02-21-2025 10:00-0400 Respiratory rate 21 /min Iban Ramirez MD Work Phone: [facility] 02-21-2025 10:00-0400 SaO2% (BldA) [Mass fraction] 93 % Iban Ramirez MD Work Phone: [facility] 02-21-2025 08:00-0400 Diastolic blood pressure 80 mm[Hg] Iban Ramirez MD Work Phone: [facility] 02-21-2025 08:00-0400 Systolic blood pressure 162 mm[Hg] Iban Ramirez MD Work Phone: [facility] 02-21-2025 07:48-0400 Body temperature 97.81 [degF] Iban Ramirez MD Work Phone: [facility] 02-20-2025 15:00-0400 Body height 172.7 cm Iban Ramirez MD Work Phone: [facility] 02-20-2025 15:00-0400 Body mass index (BMI) [Ratio] 24.37 kg/m2 Iban Ramirez MD Work Phone: [facility] 02-20-2025 15:00-0400 Body weight 72.7 kg Iban Ramirez MD Work Phone: [facility] 01-17-2024 14:36-0400 Diastolic blood pressure 77 mm[Hg] Karla Seamanis PA-C Work Phone: [facility] 01-17-2024 14:36-0400 Heart rate 51 /min Karla Seamanis PA-C Work Phone: [facility] 01-17-2024 14:36-0400 Systolic blood pressure 145 mm[Hg] Karla Seamanis PA-C Work Phone: [facility] 12-29-2023 12:34-0400 Diastolic blood pressure 57 mm[Hg] Naima Lee MD Work Phone: [facility] 12-29-2023 12:34-0400 Heart rate 54 /min Naima Lee MD Work Phone: [facility] 12-29-2023 12:34-0400 Respiratory rate 20 /min Naima Lee MD Work Phone: [facility] 12-29-2023 12:34-0400 SaO2% (BldA) [Mass fraction] 96 % Naima Lee MD Work Phone: [facility] 12-29-2023 12:34-0400 Systolic blood pressure 110 mm[Hg] Naima Lee MD Work Phone: [facility] 12-29-2023 12:15-0400 Body temperature 97.39 [degF] Naima Lee MD Work Phone: [facility] 12-29-2023 11:09-0400 Body height 172.7 cm Naima Lee MD Work Phone: [facility] 12-29-2023 11:09-0400 Body mass index (BMI) [Ratio] 24.33 kg/m2 Naima Lee MD Work Phone: [facility] 12-29-2023 11:090400 Body weight 72.58 kg Naima Lee MD Work Phone: [facility] 10-26-2023 16:04-0500 Body height 172.7 cm Sheryl Bassett MD Work Phone: [facility] 10-26-2023 16:04-0500 Body weight 72.7 kg Sheryl Bassett MD Work Phone: [facility] 10-26-2023 16:04-0500 Diastolic blood pressure 90 mm[Hg] Sheryl Bassett MD Work Phone: [facility] 10-26-2023 16:04-0500 Heart rate 50 /min Sheryl Bassett MD Work Phone: [facility] 10-26-2023 16:04-0500 SaO2% (BldA) [Mass fraction] 97 % Sheryl Bassett MD Work Phone: [facility] 10-26-2023 16:04-0500 Systolic blood pressure 176 mm[Hg] Sheryl Bassett MD Work Phone: [facility] 10-13-2023 13:34-0500 Body height 172.7 cm Karla Sauer PA-C Work Phone: [facility] 10-13-2023 13:34-0500 Body weight 73.03 kg Karla Lacho PA-C Work Phone: [facility] 10-13-2023 13:34-0500 Diastolic blood pressure 71 mm[Hg] Karla Lacho PA-C Work Phone: [facility] 10-13-2023 13:34-0500 Heart rate 73 /min Karla Lacho PA-C Work Phone: [facility] 10-13-2023 13:34-0500 Systolic blood pressure 158 mm[Hg] Karla Lacho PA-C Work Phone: [facility] 07-27-2023 14:17-0500 Body height 172.7 cm Sheryl Bassett MD Work Phone: [facility] 07-27-2023 14:17-0500 Diastolic blood pressure 45 mm[Hg] Sheryl Bassett MD Work Phone: [facility] 07-27-2023 14:17-0500 Heart rate 46 /min Sheryl Bassett MD Work Phone: [facility] 07-27-2023 14:17-0500 SaO2% (BldA) [Mass fraction] 97 % Sheryl Bassett MD Work Phone: [facility] 07-27-2023 14:17-0500 Systolic blood pressure 135 mm[Hg] Sheryl Bassett MD Work Phone: [facility] 05-13-2023 15:46-0400 Diastolic blood pressure 63 mm[Hg] Germaine Bray MD Work Phone: [facility] 05-13-2023 15:46-0400 Heart rate 61 /min Germaine Bray MD Work Phone: [facility] 05-13-2023 15:46-0400 Respiratory rate 16 /min Germaine Bray MD Work Phone: [facility] 05-13-2023 15:46-0400 SaO2% (BldA) [Mass fraction] 93 % Germaine Bray MD Work Phone: [facility] 05-13-2023 15:46-0400 Systolic blood pressure 111 mm[Hg] Germaine Bray MD Work Phone: [facility] 05-13-2023 15:32-0400 Body temperature 97.3 [degF] Germaine Bray MD Work Phone: [facility] 05-13-2023 14:18-0400 Body height 172.7 cm Germaine Bray MD Work Phone: [facility] 05-13-2023 14:18-0400 Body weight 75.3 kg Germaine Bray MD Work Phone: [facility] 04-06-2023 12:11-0400 Body height 172.7 cm Germaine Bray MD Work Phone: [facility] 04-06-2023 12:11-0400 Body weight 75.3 kg Germaine Bray MD Work Phone: [facility] 04-06-2023 12:11-0400 Diastolic blood pressure 59 mm[Hg] Germaine Bray MD Work Phone: [facility] 04-06-2023 12:11-0400 Heart rate 43 /min Germaine Bray MD Work Phone: [facility] 04-06-2023 12:11-0400 Systolic blood pressure 120 mm[Hg] Germaine Bray MD Work Phone: [facility] 07-09-2022 14:17-0400 Body height 172.[address] Iván Case Work Phone: [facility] Work Phone: 07-09-2022 14:17-0400 Body mass index (BMI) [Ratio] 25.2 kg/m2 Dr. Iván Case Work Phone: [facility] Work Phone: 07-09-2022 14:17-0400 Body weight 75.[address] Iván Case Work Phone: [facility] Work Phone: 07-09-2022 14:17-0400 Diastolic blood pressure 67 mm[Hg] Dr. Iván Case Work Phone: [facility] Work Phone: 07-09-2022 14:17-0400 Heart rate 66 /min Dr. Iván Case Work Phone: [facility] Work Phone: 07-09-2022 14:17-0400 Respiratory rate 18 /min Dr. Iván Case Work Phone: [facility] Work Phone: 07-09-2022 14:17-0400 SaO2% (BldA) [Mass fraction] 94 % Dr. Iván Case Work Phone: [facility] Work Phone: 07-09-2022 14:17-0400 Systolic blood pressure 104 mm[Hg] Dr. Iván Case Work Phone: [facility] Work Phone: 01-30-2022 21:51-0400 Diastolic blood pressure 69 mm[Hg] Dr. Iván Case Work Phone: [facility] Work Phone: 01-30-2022 21:51-0400 Heart rate 70 /min Dr. Iván Case Work Phone: [facility] Work Phone: 01-30-2022 21:51-0400 Respiratory rate 15 /min Dr. Iván Case Work Phone: [facility] Work Phone: 01-30-2022 21:51-0400 Systolic blood pressure 117 mm[Hg] Dr. Iván Case Work Phone: [facility] Work Phone: 01-30-2022 20:57-0400 Body height 172.[address] Iván Case Work Phone: [facility] Work Phone: 01-30-2022 20:57-0400 Body mass index (BMI) [Ratio] 24.3 kg/m2 Dr. Iván Case Work Phone: [facility] Work Phone: 01-30-2022 20:57-0400 Body temperature 98.1 [degF] Dr. Iván Case Work Phone: [facility] Work Phone: 01-30-2022 20:57-0400 Body weight 72.[address] Iván Case Work Phone: [facility] Work Phone: 01-30-2022 20:57-0400 SaO2% (BldA) [Mass fraction] 96 % Dr. Iván Case Work Phone: [facility] Work Phone: 01-21-2022 09:23-0400 Body temperature 98.6 [degF] Dr. Iván Case Work Phone: [facility] Work Phone: 01-21-2022 09:23-0400 Diastolic blood pressure 60 mm[Hg] Dr. Iván Case Work Phone: [facility] Work Phone: 01-21-2022 09:23-0400 Heart rate 61 /min Dr. Iván Case Work Phone: [facility] Work Phone: 01-21-2022 09:23-0400 Respiratory rate 16 /min Dr. Iván Case Work Phone: [facility] Work Phone: 01-21-2022 09:23-0400 SaO2% (BldA) [Mass fraction] 92 % Dr. Iván Case Work Phone: [facility] Work Phone: 01-21-2022 09:23-0400 Systolic blood pressure 103 mm[Hg] Dr. Iván Case Work Phone: [facility] Work Phone: 01-21-2022 07:10-0400 Body height 172.[address] Iván Case Work Phone: [facility] Work Phone: 01-21-2022 07:10-0400 Body mass index (BMI) [Ratio] 25.5 kg/m2 Dr. Iván Case Work Phone: [facility] Work Phone: 01-21-2022 07:10-0400 Body weight 76.[address] Iván Case Work Phone: [facility] Work Phone: 09-04-2021 15:00-0500 Body temperature 97.5 [degF] Dr. Iván Case Work Phone: [facility] Work Phone: 09-04-2021 15:00-0500 Diastolic blood pressure 72 mm[Hg] Dr. Iván Case Work Phone: [facility] Work Phone: 09-04-2021 15:00-0500 Heart rate 59 /min Dr. Iván Case Work Phone: [facility] Work Phone: 09-04-2021 15:00-0500 Respiratory rate 16 /min Dr. Iván Case Work Phone: [facility] Work Phone: 09-04-2021 15:00-0500 SaO2% (BldA) [Mass fraction] 96 % Dr. Iván Case Work Phone: [facility] Work Phone: 09-04-2021 15:00-0500 Systolic blood pressure 123 mm[Hg] Dr. Iván Case Work Phone: [facility] Work Phone: 09-02-2021 06:52-0500 Body height [address] Iván Case Work Phone: [facility] Work Phone: 09-02-2021 06:52-0500 Body mass index (BMI) [Ratio] 25.9 kg/m2 Dr. Iván Case Work Phone: [facility] Work Phone: 09-02-2021 06:52-0500 Body weight 77.[address] Iván Case Work Phone: [facility] Work Phone: 12-20-2019 11:13-0400 BP Diastolic 81 mm[Hg] Colton Marroquin [facility] [place] [facility] [place] 12-20-2019 11:13-0400 BP Systolic 130 mm[Hg] Colton Marroquin [facility] [place] 12-20-2019 11:13-0400 Pulse (Heart Rate) 85 /min Colton Marroquin [facility] [place] 12-20-2019 11:13-0400 Pulse Oximetry 99 % Colton Marroquin [facility] [place] 12-20-2019 11:13-0400 Respiratory Rate 18 /min [place] [place] 12-20-2019 07:00-0400 BMI (Body Mass Index) 26.02 kg/m2 Colton Marroquin [facility] [place] 12-20-2019 07:00-0400 Body Temperature 97.9 [degF] [place] [facility] [place] 12-20-2019 07:00-0400 Body weight 77.61 kg Colton Marroquin [facility] [place] 12-19-2019 04:00-0400 Height 172.7 cm Colton Marroquin [facility] [place] 12-13-2019 11:55-0400 BMI (Body Mass Index) 25.85 kg/m2 Colton Marroquin [facility] [place] 12-13-2019 11:55-0400 Body weight 77.11 kg Colton Marroquin [facility] [place] 12-13-2019 11:55-0400 Height 172.7 cm [place], [place] NEGATED: Highlighted [id number] 11:10-0400 Body height 172.72 cm Mirella Beckrest [employer] ATTORNEY [facility] Work Phone: NEGATED: Highlighted [id number] 11:10-0400 Body height 173 cm Mirella Beckrest ERISA ATTORNEY [facility] Work Phone: NEGATED: Highlighted [id number] 11:10-0400 Body mass index (BMI) [Ratio] 24.72 kg/m2 Mirella Beckrest ERISA ATTORNEY [facility] Work Phone: NEGATED: Highlighted [id number] 11:10-0400 Body weight 73.48 kg Mirella Beckrest ERISA ATTORNEY [facility] Work Phone: NEGATED: Highlighted [id number] 11:10-0400 Body weight 74 kg Mirella Beckrest ERISA ATTORNEY [facility] Work Phone: NEGATED: Highlighted [id number] 10:06-0400 Body height 172.72 cm Gemini Razo [employer] ATTORNEY [facility] Work Phone: NEGATED: Highlighted [id number] 10:06-0400 Body height 173 cm Gemini Danni [employer] ATTORNEY [facility] Work Phone: NEGATED: Highlighted [id number] 10:06-0400 Body mass index (BMI) [Ratio] 24.72 kg/m2 Gemini Danni [employer] ATTORNEY [facility] Work Phone: NEGATED: Highlighted [id number] 10:06-0400 Body weight 73.48 kg Gemini Danni ERISA ATTORNEY [facility] Work Phone: NEGATED: Highlighted [id number] 10:06-0400 Body weight 74 kg Gemini Danni ERISA ATTORNEY [facility] Work Phone: Encounters Encounter Date Encounter Type Care Provider Facility Start: 02-20-2025 End: 02-21-2025 Evaluation and management of inpatient Iban Ramirez MD Work Phone: [facility] Surgical Trauma Neuro Intensive Care Unit ST[facility] ICU T2 Comment on above: Intracranial hemorrh age (HCC) (Primary Dx) Start: 02-20-2025 Emergency department patient visit IVÁN CASE [facility] Start: 02-20-2025 End: 02-20-2025 Emergency department patient visit Iván Case Facility:[facility] Start: 02-20-2025 End: 02-20-2025 ambulatory Iván Caes Facility:[facility] Start: 02-12-2025 End: 02-12-2025 ambulatory Iván Case Facility:[facility] Start: 02-01-2025 End: 02-01-2025 ambulatory Iván Case Facility:[facility] Start: 01-23-2025 End: 01-23-2025 ambulatory Iván Case Facility:[facility] Start: 12-25-2024 End: 12-25-2024 ambulatory Nilay Ellsworth Facility:[facility] Start: 11-22-2024 End: 11-22-2024 ambulatory Iván Case Facility:[facility] Start: 11-21-2024 End: 11-21-2024 ambulatory Elba Berger NP Facility:[facility] Start: 10-26-2024 End: 10-26-2024 ambulatory Iván Case Facility:[facility] Start: 10-24-2024 End: 10-24-2024 ambulatory Iván Case Facility:[facility] Start: 09-26-2024 End: 09-26-2024 ambulatory Iván Case Facility:[facility] Start: 08-14-2024 End: 08-14-2024 ambulatory Iván Case Facility:[facility] Start: 07-27-2024 End: 07-27-2024 ambulatory Iván Case Facility:[facility] Start: 07-27-2024 ambulatory vIán Case Facilit y:[facility] Start: 07-25-2024 End: 07-26-2024 ambulatory Iván Case Facility:[facility] Start: 07-10-2024 End: 07-10-2024 ambulatory Iván Whitley Sharifa Facility:[facility] Start: 04-26-2024 End: 04-26-2024 ambulatory Iván Whitley Sharifa Facility:[facility] Start: 04-20-2024 End: 04-20-2024 ambulatory Iván Whitley Sharifa Facility:[facility] Start: 03-28-2024 End: 03-28-2024 ambulatory Iván Gutierrez Sharifa Facility:[facility] Start: 03-26-2024 End: 03-26-2024 ambulatory Iván Whitley Sharifa Facility:[facility] Start: 01-18-2024 End: 01-18-2024 ambulatory IVÁN Gutierrez SHARIFA Facility:[facility] Start: 01-18-2024 End: 01-18-2024 ambulatory Karla Castro PT, T [facility] Outpatient Physical Therapy Start: 01-18-2024 End: 01-18-2024 Patient encounter procedure Karla Castro PT, [facility] Out[facility] Physical Therapy Comment on above: Diabetes mellitus wi thout complication (HCC) (Primary Dx); Abnormality of gait due to impairment of balance; Weakness of both lower extremities; Abnormality of gait; Imbalance Start: 01-17-2024 End: 01-18-2024 ambulatory KARLA SAUER Facility:[facility] Start: 01-17-2024 End: 01-17-2024 Patient encounter procedure Karla Sauer PA-C Work Phone: [facility] Comment on above: Exocrine pancreatic insufficiency (Primary Dx); Nausea and vomiting, unspecified vomiting type Start: 01-10-2024 End: 01-10-2024 ambulatory IVÁN CASE Facility:[facility] Start: 01-10-2024 End: 01-10-2024 ambulatory María Orosco PASS WORKER Work Phone: [facility] Outpatient Physical Therapy Start: 01-10-2024 End: 01-10-2024 Patient encounter procedure María Orosco PASS WORKER Work Phone: [facility] Outpatient Physical Therapy Comment on above: Diabetes mellitus wi thout complication (HCC) (Primary Dx); Weakness of both lower extremities; Abnormality of gait; Imbalance Start: 01-06-2024 End: 01-06-2024 ambulatory IVÁN CASE Facility:[facility] Start: 01-06-2024 End: 01-06-2024 ambulatory Karla Castro PT, DPT [facility] Out[facility] Physical Therapy Start: 01-06-2024 End: 01-06-2024 Patient encounter procedure Karla Castro PT, DPT [facility] Outpatient Physical Therapy Comment on above: Diabetes mellitus wi thout complication (HCC) (Primary Dx); Weakness of both lower extremities; Abnormality of gait; Imbalance Start: 12-29-2023 End: 12-29-2023 ambulatory Karla Sauer Facility:[facility] Start: 12-29-2023 End: 12-29-2023 Subsequent hospital visit by physician Naima Lee MD Work Phone: Ambulatory Surgery Comment on above: Diarrhea, unspecifie d type [R19.7] Start: 12-22-2023 ambulatory Naima dudley MD Work Phone: Ambulatory Surgery Start: 12-15-2023 End: 12-15-2023 ambulatory IVÁN CASE Facility:[facility] Start: 12-15-2023 End: 12-15-2023 ambulatory Elba Samaniego PT, DPT Work Phone: [facility] Outpatient Physical Therapy Comment on above: Diabetes mellitus wi thout complication (HCC) (Primary Dx); Weakness of both lower extremities; Abnormality of gait; Imbalance Start: 12-09-2023 End: 12-09-2023 ambulatory IVÁN CASE Facility:[facility] Start: 12-09-2023 End: 12-09-2023 ambulatory María Orosco PTA Work Phone: [facility] Out[facility] Physical Therapy Comment on above: Diabetes mellitus wi thout complication (HCC) (Primary Dx); Weakness of both lower extremities; Abnormality of gait; Imbalance Start: 12-02-2023 End: 12-02-2023 ambulatory SHERYL Y SERJIO Facility:[facility] Start: 11-29-2023 End: 11-29-2023 ambulatory María Jacksony PASS WORKER Work Phone: [facility] Outpatient Physical Therapy Comment on above: Diabetes mellitus wi thout complication (HCC) (Primary Dx); Weakness of both lower extremities; Abnormality of gait; Imbalance Start: 11-24-2023 End: 11-24-2023 ambulatory María Jacksony PASS WORKER Work Phone: [facility] Out[facility] Physical Therapy Comment on above: Diabetes mellitus wi thout complication (HCC) (Primary Dx); Weakness of both lower extremities; Abnormality of gait; Imbalance Start: 11-18-2023 End: 11-18-2023 ambulatory Karla Castro PT, DPT [facility] Outpatient Physical Therapy Comment on above: Diabetes mellitus wi thout complication (HCC) (Primary Dx); Weakness of both lower extremities; Abnormality of gait; Imbalance Start: 11-15-2023 Telephone encounter Naima rivero MD Work Phone: [facility] Comment on above: Appointment Start: 11-11-2023 End: 11-11-2023 ambulatory IVÁN CASE Facility:[facility] Start: 11-11-2023 Telephone encounter Karla Sauer PA-C Work Phone: [facility] DEPART[facility] Comment on above: Appointment Start: 11-11-2023 End: 11-11-2023 ambulatory María O'Miranda PASS WORKER Work Phone: [facility] Outpatient Physical Therapy Comment on above: Diabetes mellitus wi thout complication (HCC) (Primary Dx); Weakness of both lower extremities; Abnormality of gait; Imbalance Start: 11-05-2023 Telephone encounter Karla Sauer PA-C Work Phone: [facility] Comment on above: Medication Problem Start: 11-03-2023 End: 11-03-2023 ambulatory IVÁN CASE Facility:[facility] Start: 11-03-2023 End: 11-03-2023 ambulatory María O'[place] PASS WORKER Work Phone: [facility] Outpatient Physical Therapy Comment on above: Diabetes mellitus wi thout complication (HCC) (Primary Dx); Weakness of both lower extremities; Abnormality of gait; Imbalance Start: 10-28-2023 End: 10-28-2023 ambulatory María Orosco PASS WORKER Work Phone: [facility] Outpatient Physical Therapy Comment on above: Diabetes mellitus wi thout complication (HCC) (Primary Dx); Weakness of both lower extremities; Abnormality of gait; Imbalance Start: 10-26-2023 End: 10-27-2023 ambulatory SHERYL BASSETT Facility:[facility] Start: 10-26-2023 End: 10-27-2023 Office outpatient visit 15 minutes Sheryl Bassett MD Work Phone: Neurology Comment on above: Abnormality of gait due to impairment of balance (Primary Dx); Transient cerebral ischemia, unspecified type Start: 10-25-2023 Refill Germaine Bray MD Work Phone: [facility] Comment on above: Refill Request Start: 10-21-2023 End: 10-21-2023 ambulatory IVÁN CASE Facility:[facility] Start: 10-21-2023 End: 10-21-2023 ambulatory Karla Castro PT, DPT [facility] Outpatient Physical Therapy Comment on above: Diabetes mellitus wi thout complication (HCC) (Primary Dx); Weakness of both lower extremities; Abnormality of gait; Imbalance Start: 10-13-2023 End: 10-13-2023 ambulatory KARLA SAUER Facility:[facility] Start: 10-13-2023 End: 10-13-2023 Patient encounter procedure Karla Sauer PA-C Work Phone: [facility] Comment on above: Postprocedural leaka ge from bile duct; Diarrhea, unspecified type; Exocrine pancreatic insufficiency Start: 10-11-2023 End: 10-11-2023 ambulatory María Orosco PASS WORKER Work Phone: [facility] Outpatient Physical Therapy Comment on above: Diabetes mellitus wi thout complication (HCC) (Primary Dx); Weakness of both lower extremities; Abnormality of gait; Imbalance Start: 10-06-2023 End: 10-06-2023 ambulatory IVÁN CASE Facility:[facility] Start: 09-23-2023 End: 09-23-2023 ambulatory IVÁN CASE Facility:[facility] Start: 09-21-2023 End: 09-21-2023 ambulatory IVÁN CASE Facility:[facility] Start: 09-16-2023 End: 09-16-2023 Emergency department patient visit JOSE Malloy Facility:[facility] Start: 09-16-2023 End: 09-16-2023 ambulatory IVÁN CASE Facility:[facility] Start: 08-19-2023 End: 08-19-2023 ambulatory IVÁN CASE Facility:[facility] Start: 08-19-2023 End: 08-19-2023 ambulatory Karla Castro PT, DPT [facility] Outpatient Physical Therapy Comment on above: Diabetes mellitus wi thout complication (HCC) (Primary Dx); Weakness of both lower extremities; Abnormality of gait; Imbalance Start: 08-18-2023 Telephone encounter Elba Samaniego PT, DPT Work Phone: Rehab [facility] Sports [facility] Start: 08-12-2023 End: 08-12-2023 ambulatory SHERYL BASSETT Facility:[facility] Start: 08-12-2023 End: 08-12-2023 ambulatory Emg 300) Work Phone: Neurology Comment on above: EMG Start: 08-12-2023 End: 08-12-2023 Patient encounter procedure Emg 2 Neur [facility] (Max Weight: 300) [facility] Start: 08-11-2023 End: 08-11-2023 ambulatory IVÁN CASE Facility:[facility] Start: 08-11-2023 End: 08-11-2023 ambulatory Elba Samaniego PT, DPT Work Phone: [facility] Outpatient Physical Therapy Comment on above: Abnormality of gait (Primary Dx); Weakness of both lower extremities; Imbalance Start: 07-27-2023 End: 07-28-2023 ambulatory SHERYL Y SERJIO Facility:[facility] Start: 07-27-2023 End: 07-27-2023 Office outpatient new 45 minutes Sheryl Bassett MD Work Phone: Neurology Comment on above: Weakness of both low er extremities Start: 07-27-2023 Telephone encounter Sheryl birmingham MD Work Phone: Neurology Comment on above: Appointment Start: 07-26-2023 End: 07-26-2023 ambulatory KARLA Floyd SEAMANIS Facility:[facility] Start: 06-10-2023 End: 06-11-2023 ambulatory GERMAINE TOMY Facility:[facility] Start: 05-13-2023 ambulatory [facility] Facility: [facility] Start: 05-13-2023 End: 05-13-2023 Preprocedural examination done Germaine Bray MD Work Phone: [facility] Start: 05-13-2023 End: 05-13-2023 Subsequent hospital visit by physician Germaine Bray MD Work Phone: [facility] Comment on above: Gastroparesis [K31.8 4] Start: 05-13-2023 Encounter for other preprocedural examination GERMAINE BRAY [facility] Start: 04-22-2023 End: 04-22-2023 ambulatory GERMAINE BRAY Facility:[facility] Start: 04-22-2023 End: 04-22-2023 Subsequent hospital visit by physician [facility] Work Phone: Nuclear Medicine Comment on above: Nausea [R11.0] Start: 04-08-2023 End: 04-09-2023 ambulatory GERMAINE BRAY Facility:[facility] Start: 04-08-2023 Telephone encounter Germaine stokes MD Work Phone: [facility] Comment on above: Appointment (EGD) Start: 04-08-2023 End: 04-08-2023 Subsequent hospital visit by physician Ct Prep [facility] Cat Scan Comment on above: Nausea [R11.0] Start: 04-06-2023 End: 04-06-2023 ambulatory GERMAINE BRAY Facility:[facility] Start: 04-06-2023 End: 04-06-2023 Patient encounter procedure Germaine Bray MD Work Phone: [facility] Comment on above: Nausea (Primary Dx); Gastroparesis; Heartburn Start: 07-16-2022 End: 07-16-[address] Iván Case Work Phone: [facility] Work Phone: Start: 07-16-2022 End: 07-16-[address] Iván Case Work Phone: [facility] Start: 07-09-2022 End: 07-09-[address] Iván Case Work Phone: [facility] Start: 07-02-[address] Iván Case Work Phone: [facility]-Physical Therapy Start: 04-20-2022 End: 04-20-2022 ambulatory [facility] Work Phone: Start: 04-20-2022 End: 04-20-2022 Discharged Recurring [facility]-Physical Therapy Start: 02-13-[address] Iván Case Work Phone: [facility]-Physical Therapy Start: 02-12-2022 End: 02-12-[address] Iván Case Work Phone: [facility] Start: 02-03-2022 End: 02-03-[address] Iván Case Work Phone: [facility] Start: 01-30-2022 End: 01-30-2022 Emergency department patient visit Dr. Iván Case Work Phone: [facility]-Emergency Department Start: 01-21-2022 Non-patient / Non-visit Dr. Genie Case Work Phone: [facility] Start: 01-21-2022 End: 01-21-2022 Admission to same day surgery center Dr. Iván Case Work Phone: [facility]-Endoscopy Start: 01-21-2022 Non-patient / Non-visit Dr. Genie Case Work Phone: [facility] Start: 01-06-2022 End: 01-06-2022 Patient encounter procedure [facility] Start: 12-16-2021 End: 12-16-2021 Pt evaluation Hiram Paul MD Work Phone: [facility] Work Phone: Start: 12-11-2021 End: 12-11-[address] Iván Case Work Phone: [facility] Start: 11-07-2021 End: 11-07-[address] Iván Case Work Phone: [facility] Start: 09-24-2021 End: 09-24-[address] Iván Case Work Phone: [facility] Start: 09-07-2021 Non-patient / Non-visit Dr. Genie Case Work Phone: [facility] Start: 09-04-2021 Non-patient / Non-visit Dr. Genie Case Work Phone: [facility] Start: 09-03-2021 Non-patient / Non-visit Dr. Genie Case Work Phone: [facility] Start: 09-03-2021 Non-patient / [facility] Start: 09-02-2021 Non-patient / Non-visit Dr. Genie Case Work Phone: [facility] Start: 09-02-2021 Non-patient / Non-visit Dr. Genie Case Work Phone: [facility] Start: 09-01-2021 Non-patient / Non-[facility] Start: 09-01-2021 End: 09-04-2021 Evaluation and management of inpatient Dr. Iván Case Work Phone: [facility]-Medical Surgical 3 Start: 11-08-2020 End: 11-08-2020 Patient encounter procedure External Provider [facility] Start: 11-08-2020 Results Only External Provider [facility] Start: 12-15-2019 End: 12-20-2019 Evaluation and management of inpatient Colton Barrientos Marroquin Work Phone: [facility] Comment on above: S/P CABG x 3 (Primar y Dx); CAD in [place] artery Start: 12-13-2019 End: 12-13-2019 Subsequent hospital [...] External P rovider Start: 11-08-2020 EXTERNAL IMAGING [employer] Officer al Provider Start: 12-20-2019 Potassium serum plas [...] DTaP/Tdap/Td Vaccines (3 - Td or Tdap) [facility] Start: 09-29-2029 DTaP/Tdap/Td vaccine (2 - Td) DTaP/Tdap/Td vaccine (2 - Td) [place], [place] Start: 09-29-2029 Urine microalbumin profile [facility] Start: 02-21-2026 Diabetes: Estimated Glomerular Filtration Rate for Kidney [facility] Diabetes: Estimated Glomerular Filtration Rate for Kidney [facility] Start: 12-28-2024 Screening for malignant neoplasm of colon [facility] Start: 06-12-2024 DIABETES SCREEN DIABETES SCREEN [facility] Start: 06-10-2024 BP Controlled (<130/80) BP Controlled (<130/80) [facility] Start: 05-07-2024 Covid-19 Vaccine ( season) Covid-19 Vaccine ( season) [facility] Start: 05-07-2024 Influenza vaccination Influenza Vaccine (#1) [facility] Start: 04-10-2024 End: 04-10-2024 Patient encounter procedure 04/10/2024 1:00 PM EDT Office Visit [facility] [address] [place] [address] Karla Sauer PA-C [address] [place] [address] 6 month follow up [facility] Comment on above: 6 month follow up Start: 04-06-2024 BP CONTROLLED (<130/80) BP CONTROLLED (<130/80) [facility] Start: 01-18-2024 End: 01-18-2024 Patient encounter procedure 01/18/2024 4:45 PM EDT OT/PT/Speech Visit [facility] Outpatient Physical Therapy [address] [place] [id number] Karla Castro, PT, DPT [address] [place] [address] Gait Abnormaility [facility] Outpatient Physical Therapy Comment on above: Gait Abnormaility Start: 01-17-2024 End: 01-17-2024 Patient encounter procedure 01/17/2024 2:30 PM EDT Office Visit [facility] GA[facility]O DEPART[facility] [address] [place] [address] Karla Sauer PA-C [address] [place] [address] follow up/scope [facility] DEPARTMENT Comment on above: follow up/scope Start: 01-10-2024 End: 01-10-2024 Patient encounter procedure 01/10/2024 11:30 AM EDT OT/PT/Speech Visit [facility] Outpatient Physical Therapy [address] [place] [address] María Orosco, PASS WORKER [address] [place] [address] Gait Abnormaility [facility] Outpatient Physical Therapy Comment on above: Gait Abnormaility Start: 10-23-2023 Covid-19 Vaccine ( season) Covid-19 Vaccine () [facility] Start: 09-06-2023 Advance Directive Discussion Advance Directive Discussion [facility] Start: 09-06-2023 Behavioral Health Screening Behavioral Health Screening [facility] Start: 09-06-2023 Depression Assessment Depression Assessment [facility] Start: 05-07-2023 Covid-19 Vaccine ( season) Covid-19 Vaccine () [facility] Start: 05-07-2023 Influenza vaccination [facility] Start: 04-06-2023 End: 06-06-2023 CREATININE BLD CREATININE BLD Lab Routine Nausea Expected: 04/06/2023, Expires: 06/06/2023 [facility] Work Phone: Comment on above: Expected: 04/06/2023, Expires: Start: 11-03-2022 COVID-19 VACCINE (5 - Moderna series) COVID-19 VACCINE (5 - Moderna series) [facility] Start: 09-06-2022 ADVANCE DIRECTIVE DISCUSSION ADVANCE DIRECTIVE DISCUSSION [facility] Start: 09-06-2022 DEPRESSION ASSESSMENT DEPRESSION ASSESSMENT [facility] Start: 03-13-2022 Hemoglobin A1c measurement Diabetes: Hemoglobin A1C [facility] Start: 01-21-2022 Ercp remove calculi/debris biliary/pancreas duct ERCP REMOVE DUCT CALCULI [facility] Work Phone: Start: 01-21-2022 Ercp w/sphincterotomy/papill otomy ENDO CHOLANGIOPANCREATOGRAPH [facility] Work Phone: Start: 12-16-2021 End: 12-16-2021 Patient encounter procedure Appointment [facility] Work Phone: Start: 11-28-2021 End: 11-28-2021 Patient encounter procedure Appointment [facility] Work Phone: Start: 10-08-2021 Pneumococcal Vaccine: 65+ (2 - PCV) Pneumococcal Vaccine: 65+ (2 - PCV) [facility] Start: 10-08-2021 Pneumococcal Vaccine: 65+ (2 of 2 - PCV) Pneumococcal Vaccine: 65+ (2 of 2 - PCV) [facility] Start: 10-08-2021 PNEUMOCOCCAL: 65+ (2 - PCV) PNEUMOCOCCAL: 65+ (2 - PCV) [facility] Start: 09-13-2021 Hemoglobin A1c measurement HbA1C [facility] Start: 09-13-2021 Hemoglobin A1c/Hemoglobin.total in Blood HBA1C [facility] Start: 12-19-2020 Creatinine monitoring Creatinine monitoring [facility] [place] Start: 12-19-2020 Potassium monitoring Potassium monitoring [facility] [place] Start: 12-11-2020 A1C test (Diabetic or Prediabetic) A1C test (Diabetic or Prediabetic) [facility] [place] Start: 12-11-2020 Creatinine monitoring Creatinine monitoring [facility] [place] Start: 12-11-2020 Potassium monitoring Potassium monitoring [facility] [place] Start: 05-07-2020 Influenza vaccination INFLUENZA (#1) [facility] Start: 12-27-2019 End: 12-19-2020 Basic metabolic 2000 panel Basic Metabolic Panel Lab Routine S/P CABG x 3 Expected: 12/27/2019, Expires: 12/19/2020 [facility] Comment on above: Expected: 12/27/2019, Expires: 1 Start: 12-27-2019 End: 12-19-2020 CBC CBC Lab Routine S/P CABG x 3 Expected: 12/27/2019, Expires: 12/19/2020 [facility] Comment on above: Expected: 12/27/2019, Expires: 1 Start: 12-27-2019 End: 12-27-2019 Virtual Visit 12/27/2019 Virtual Visit Cardiothoracic Surgery Larisa Watts, DIRECTOR OF HOME CARE HOSPICE - [facility] [address] [place] [address] [phone] CT [facility] Start: 12-15-2019 Annual Wellness Visit (AWV) Annual Wellness Visit (AWV) [facility] [place] Start: 12-15-2019 Hospital En[facility]/15/2019 [facility] Colton Marroquin MD [address] [place], [place] [id number] [facility] Start: 12-13-2019 [facility] En[facility] Colton Marroquin MD [address] [place], [place] [id number] [facility] Pre-Admit Testing Start: 2019 ADVANCE DIRECTIVE DISCUSSION ADVANCE DIRECTIVE DISCUSSION [facility] Start: 2019 Pneumococcal 65+ years Vaccine (1 of 1 - PPSV23) Pneumococcal 65+ years Vaccine (1 of 1 - PPSV23) [place], [place] Start: 2019 PNEUMOVAX AGE 65 AND OVER WITH 5YR LOOKBACK (#1) PNEUMOVAX AGE 65 AND OVER WITH 5YR LOOKBACK (#1) [facility] Start: 06-10-2018 Shingles Vaccine (2 of 2) Shingles Vaccine (2 of 2) [place], [place] Start: 2014 Hepatitis B Vaccine (1 of 3 - Risk 3-dose series) Hepatitis B Vaccine (1 of 3 - Risk 3-dose series) [facility] Start: 2014 RSV Vaccine (1 - 1-dose 60+ series) RSV Vaccine (1 - 1-dose 60+ series) [facility] Start: 2009 PROSTATE CANCER SCREENING DISCUSSION PROSTATE CANCER SCREENING DISCUSSION [facility] Start: 2004 Colon cancer screen colonoscopy Colon cancer screen colonoscopy [place], [place] Start: 2004 Screening for malignant neoplasm of colon [facility] Start: 2004 SHINGRIX VACCINE (1 of 2) SHINGRIX VACCINE (1 of 2) [facility] Start: 1999 COLOGUARD (FIT-DNA) COLOGUARD (FIT-DNA) [facility] Start: 1999 Colonoscopy COLONOSCOPY [facility] Start: 1999 COLORECTAL CANCER SCREENING COLORECTAL CANCER SCREENING [facility] Start: [address] COLONOGRAPHY [facility] Start: 1999 DIABETES SCREEN DIABETES SCREEN [facility] Start: 1999 FECAL OCCULT BLOOD FECAL OCCULT BLOOD [facility] Start: 1999 Screening for malignant neoplasm of colon [facility] Start: 1999 SIGMOIDOSCOPY SIGMOIDOSCOPY [facility] Start: 1989 LIPID SCREEN LIPID SCREEN [facility] Start: 1973 Urine microalbumin profile DTAP,TDAP,TD (1 - Tdap) [facility] Start: 1972 ANNUAL PCP TEAM CHRONIC DISEASE VISIT ANNUAL PCP TEAM CHRONIC DISEASE VISIT [facility] Start: 1972 Anxiety Screening Anxiety Screening [facility] Start: 1972 BP Controlled (<130/80) BP Controlled (<130/80) [facility] Start: 1972 Depression Screening Depression Screening [facility] Start: 1972 Diabetes: Urine Albumin-Creatinine Ratio for Kidney Health Diabetes: Urine Albumin-Creatinine Ratio for Kidney Health [facility] Start: 1972 Diabetic microalbuminuria test Diabetic microalbuminuria test [place], [place] Start: 1972 Hepatitis B surface antibody level LDL CHOLESTEROL [facility] Start: 1972 HEPATITIS C SCREENING HEPATITIS C SCREENING [facility] Start: 1972 Hepatitis C screening Hepatitis C Screening [facility] Start: 1969 HIV screen HIV screen [facility] [place] [facility] Start: 1966 Adult depression screening assessment DEPRESSION SCREENING [facility] Start: 1964 [object Object] Diabetic foot exam [facility] Start: 1964 Diabetic foot examination [facility] Start: 1964 Diabetic retinal exam Diabetic retinal exam [facility] Start: 1964 Glaucoma screening [facility] Start: 1964 Hepatitis B screening URINE ALBUMIN:CREATININE RATIO [facility] Start: 1964 Hepatitis C antibody, confirmatory test DILATED RETINAL EXAM [facility] Start: 1964 Lipid screen Lipid screen [facility] [place] [facility] Start: 1964 Preventive dental service Diabetes: Dental Exam [facility] Start: 1954 AAA screen AAA screen [facility] [place] [facility] Start: 1954 ABDOMINAL AORTIC ANEURYSM SCREENING ABDOMINAL AORTIC ANEURYSM SCREENING [facility] Start: 1954 Abdominal aortic aneurysm screening Abdominal Aortic Aneurysm Screening [facility] Start: 1954 Hepatitis C screen Hepatitis C screen [facility] [place] [facility] Start: 1954 Lipid panel Lipid Panel [facility] Start: 1954 Medicare Annual Wellness (AWV) Medicare Annual Wellness (AWV) [facility] Start: 1954 Screening for malignant neoplasm of colon [facility] Acapella Acapella Respira tory Care Routine Every 2hr while awake until discontinued starting 12/15/2019 [facility] Comment on above: Every 2hr while awake until discontinued starting 12/15/2019 AUTOPAP Overnight [employer] P Respiratory Care Routine QHS until discontinued starting 12/15/2019 [facility] Comment on above: QHS until discontinued starting 12/15/19 20 Basic metabolic 2000 panel Basic Metabolic Panel Lab Routine Daily until discontinued starting 12/15/2019, 5 completed [facility] Comment on above: Daily until discontinued starting 2019, 5 completed Calcium, Ionized Calcium, Ionize d Lab Routine As Needed until discontinued starting 12/15/2019 [facility] Comment on above: As Needed until discontinued starting Calprotectin [Mass/mass] in Stool CALPROTECTIN,FECAL Lab Routine Diarrhea, unspecified type Ordered: 10/13/2023 [facility] Work Phone: Comment on above: Ordered: 10/13/2023 CBC CBC Lab Routine Daily until discontinued starting 12/15/2019, 5 completed [facility] Comment on above: Daily until discontinued starting 2019, 5 completed End: 05-05-2024 Ct abdomen & pelvis w/contrast material CT ABD/PEL W IVCON Radiology Routine Nausea 1 Occurrences starting 04/06/2023 until 05/05/2024 [facility] Work Phone: Comment on above: 1 Occurrences starting 04/06/2023 until 05/05/2024 End: 04-06-2024 EGD DIAGNOSTIC EGD DIAGNOSTIC Endoscopy Routine Gastroparesis Heartburn 1 Occurrences starting 04/06/2023 until 04/06/2024 [facility] Work Phone: Comment on above: 1 Occurrences starting 04/06/2023 until 04/06/2024 End: 07-27-2024 EMG(NEURO/NI) EMG(NEURO/NI) EMG Routine Weakness of both lower extremities 1 Occurrences starting 07/27/2023 until 07/27/2024 [facility] Work Phone: Comment on above: 1 Occurrences starting 07/27/2023 until 07/27/2024 End: 05-05-2024 Gastric emptying imaging study NM GASTRIC EMPTYING SOLID Radiology Routine Nausea 1 Occurrences starting 04/06/2023 until 05/05/2024 [facility] Work Phone: Comment on above: 1 Occurrences starting 04/06/2023 until 05/05/2024 Hemoglobin and Hematocrit, Blood, Post Transfusion Hemoglobin and Hematocrit, Blood, Post Transfusion Lab Routine Post Transfusion Post Transfusion Post Transfustion for 1 Occurrences starting 12/19/2019 [facility] Comment on above: Post Transfusion Post Transfusion Post T ransfustion for 1 Occurrences starting 12/19/2019 Incentive spirometry Incentive s pirometry Respiratory Care Routine Every 2hr while awake until discontinued starting 12/15/2019 [facility] Comment on above: Every 2hr while awake until discontinued starting 12/15/2019 Initiate Oxygen Ther apy Protocol Initiate Oxygen Therapy Protocol Respiratory Care Routine Daily until discontinued starting 12/15/2019 [employer] Comment on above: Daily until discontinued starting 2019 End: 11-24-2024 MR Brain WO contrast MRI BRAIN WO IVCON Radiology Routine Transient cerebral ischemia, unspecified type 1 Occurrences starting 10/26/2023 until 11/24/2024 [facility] Work Phone: Comment on above: 1 Occurrences starting 10/26/2023 until 11/24/2024 Patient Education ED Post Op Wou nd Check, Bleeding [facility] Work Phone: Patient referral [facility] Work Phone: POCT glucose [facility] Comment on above: 4X Daily (AC & HS) until discontinued st arting 12/17/2019 As Needed until disc ontinued starting 12/17/2019 End: 12-12-2019 PREPARE RBC (CROSSMATCH), 2 Units PREPARE RBC (CROSSMATCH), 2 Units Blood Bank Routine CAD, multiple vessel Preoperative examination 1 Occurrences starting 12/12/2019 until 12/12/2019 [employer] My[employer] Comment on above: 1 Occurrences starting 12/12/2019 until 12/12/2019 PREPARE RBC (CROSSMATCH), 2 Units [facility] SURGICAL PATHOLOGY SURGICAL PATH OLOGY Lab Routine Preop examination Primary hypertension Diabetes mellitus without complication (HCC) CABRERA (obstructive sleep apnea) Gastroparesis Heartburn Release Upon Ordering for 1 Occurrences starting 05/13/2023 [facility] Work Phone: Comment on above: Release Upon Ordering for 1 Occurrences starting 05/13/2023 XR CHEST PORTABLE XR CHEST DONN BLE Imaging Routine Daily until discontinued starting 12/16/2019, 5 completed [employer] Comment on above: Daily until discontinued starting 2019, 5 completed [facility] Immunizations Immunization Date Immunization Notes Care Provider Jayson travis 06-22-2023 influenza (aIIV4) vaccine, age 65+ yr, quadrivalent, PF (FLUAD QUAD) María Orosco PASS WORKER Work Phone: [facility] 06-22-2023 respiratory syncytia l virus (RSV) vaccine, bivalent (ABRYSVO) María Orosco PASS WORKER Work Phone: [facility] 06-22-2023 influenza virus vacc ine, unspecified formulation Naima Lee MD Work Phone: [facility] 06-05-2022 influenza, injectabl e, quadrivalent, preservative free Germaine Bray MD Work Phone: [facility] 06-05-2022 influenza virus vacc ine, unspecified formulation Ct (I-Stat) Work Phone: [facility] 07-24-2021 Covid (Moderna) Dr. Iván R[facility] Work Phone: [facility] Work Phone: 06-12-2021 influenza (HD-IIV4) vaccine, age 65+ yr, high dose, quadrivalent, PF (FLUZONE HIGH-DOSE) Germaine Bray MD Work Phone: [facility] 06-12-2021 influenza, seasonal, injectable Dr. Iván Case Work Phone: [facility] Work Phone: 12-04-2020 Covid (Moderna) Dr. Iván tesfaye Work Phone: [facility] Work Phone: 11-07-2020 Covid (Moderna) Dr. Iván tesfaye Work Phone: [facility] Work Phone: 10-08-2020 pneumococcal polysaccharide vaccine, 23 valent Germaine Bray MD Work Phone: [facility] 05-28-2020 influenza, injectabl e, quadrivalent, preservative free Germaine Bray MD Work Phone: [facility] 02-18-2020 zoster vaccine recombinant Germaine Bray MD Work Phone: [facility] 09-29-2019 tetanus toxoid, redu cony diphtheria toxoid, and acellular pertussis vaccine, adsorbed Germaine Bray MD Work Phone: [facility] 07-28-2019 influenza, injectabl e, quadrivalent, preservative free Germaine Bray MD Work Phone: [facility] 06-14-2018 influenza, injectabl e, quadrivalent, contains preservative Germaine Bray MD Work Phone: [facility] 04-15-2018 zoster vaccine recombinant Germaine Bray MD Work Phone: [facility] Payers Date Payer Category Payer Self-pay [id number] 2023 [facility] [id number] 2020 Private Health Insurance CHRISTINA KNIGHT MEDICARE SUPPLEMENT [id number] 2020-Present Indemnity [id number] 2019 Private Health Insurance [id number] 2019 Private Health Insurance [id number] 2019 Medicare xxxxxxxxxxx [id number] 2019 Medicare MEDICARE MEDICAR E A AND B [id number] 2019-Present [place], [place] Medicare [id number] .[id number] 2019 Medicare [id number] .[id number] 2019 Unknown [id number] .7.3.250091.315 2019 Medicare [id number] Unknown [id number] Unknown [id number] 2.16.840.1.356129.3.579.2 .462 Unknown [id number] 2.16840.1.331017.3.579.2 .462 Unknown [id number] 2.16840.1.083958.3.579.2 .462 Unknown [id number] 2.840.1.123982.3.579.2 .462 Unknown [id number] 2.16840.1.159716.3.579.2 .462 Unknown [id number] 2.16840.1.944501.3.579.2 .462 Unknown [id number] 2.16840.1.064323.3.579.2 .462 Unknown [id number] 2.16840.1.226537.3.579.2 .462 Unknown [id number] 2.840.1.240787.3.579.2 .462 Unknown [id number] 2.16840.1.224739.3.579.2 .462 Unknown [id number] 2.16840.1.217641.3.579.2 .462 Unknown [id number] 2.16.840.1.675666.3.579.2 .462 Unknown [id number] 2.16840.1.628293.3.579.2 .462 Unknown [id number] 2.16.840.1.236077.3.579.2 .462 Unknown [id number] 2.16.840.1.737473.3.579.2 .462 Unknown [id number] 2.16.840.1.542826.3.579.2 .462 Unknown [id number] 2.16.840.1.605318.3.579.2 .462 Unknown [id number] 2.16.840.1.800995.3.579.2 .462 Unknown [id number] 2.16.840.1.685935.3.579.2 .462 Unknown [id number] 2.16.840.1.570321.3.579.2 .462 Unknown [id number] 2.16.840.1.100691.3.579.2 .462 Unknown [id number] 2.16.840.1.506446.3.579.2 .462 Unknown [id number] 2.16.840.1.554536.3.579.2 .462 Unknown [id number] 2.16.840.1.226935.3.579.2 .462 Unknown [id number] 2.16.840.1.838290.3.579.2 .462 Unknown [id number] 2.16.840.1.023691.3.579.2 .462 Unknown [id number] 2.16.840.1.338063.3.579.2 .462 Unknown [id number] 2.16840.1.836796.3.579.2 .462 Unknown [id number] 2.16840.1.427311.3.579.2 .462 Unknown [id number] 2.16840.1.193612.3.579.2 .462 Social History Date Type Detail Facility Start: 12-12-2019 End: 04-06-2023 Tobacco smoking status NHIS Former smoker [facility] Start: 12-12-2019 End: 02-20-2025 Alcohol intake Current drinker of alcohol (finding) [place] Start: 12-12-2019 Alcohol [facility] Start: 1955 Sex Assigned At Not on file [facility] History of tobacco use [facility] Start: 12-13-2019 End: 02-20-2025 Cigarettes smoked current (pack per day) - Reported [facility] Start: 12-13-2019 Tobacco Comment 1 ppd times 5 yrs, quit 1975 [facility] Exposure to SARS-CoV-2 (event) Unable to assess [place], [place] Exposure to SARS-CoV-2 (event) Not sure [facility] Start: 09-01-2021 End: 07-09-2022 Assertion Unknown if ever smoked [facility] Work Phone: Start: 08-23-2020 Non-smoker [facility] Work Phone: Start: 1955 Sex Assigned At Male [facility] History of tobacco use Current smoker [facility] Start: 04-06-2023 Tobacco use and exposure Smokeless tobacco non-user [facility] Start: 04-06-2023 End: 02-20-2025 Tobacco use panel [facility] National Score (1-100), lower number is lower risk Not on file [facility] Start: 04-06-2023 Tobacco Comment during college [facility] Start: 01-21-2021 Gender identity Identifies as male gender (finding) [facility] Start: 01-21-2021 Sexual orientation Heterosexual (fin susan) [facility] How often to you hav e a drink containing alcohol? 2-4 times a month [facility] How many standard drinks containing alcohol do you have on a typical day? 1 or 2 [facility] How often do you hav e 6 or more drinks on 1 occasion? Never [facility] Start: 04-06-2022 Sex Male (finding) Yesika wilson NEGATED: Highlighted rowStart: 11-28-2021 End: 11-28-2021 Alcohol use Alcohol use [facility] Work Phone: NEGATED: Highlighted rowStart: 11-28-2021 End: 11-28-2021 Details of drug misuse behavior Details of drug misuse behavior [facility] Work Phone: NEGATED: Highlighted rowStart: 11-28-2021 End: 11-28-2021 Assertion Former smoker [facility] Work Phone: Medical Equipment Procedure Code Equipment Code Equipment Origin al Text Equipment Identifier Dates ORIF, fracture, humerus 3.5 Gilberto Screw FDA Start: 05-22-2021 ORIF, fracture, humerus ([id number]) Tendon/l igament bone anchor, bioabsorbable ()[id number] FDA Start: 05-22-2021 ORIF, fracture, humerus 3.5 Gilberto Screw FDA Start: 05-22-2021 ORIF, fracture, humerus BONE,CRU SHED CANCELLOUS 15CC FDA Start: 05-22-2021 ORIF, fracture, humerus ([id number]) Tendon/l igament bone anchor, bioabsorbable ()[id number] FDA Start: 05-22-2021 ORIF, fracture, humerus ([id number]) Tendon/l igament bone anchor, bioabsorbable ()[id number] FDA Start: 05-22-2021 ORIF, fracture, humerus ([id number]) Tendon/l igament bone anchor, bioabsorbable ()[id number] FDA Start: 05-22-2021 ORIF, fracture, humerus ([id number]) Tendon/l igament bone anchor, bioabsorbable ()[id number] FDA Start: 05-22-2021 ORIF, fracture, humerus ([id number]) Tendon/l igament bone anchor, bioabsorbable ()[id number] 13 FDA Start: 05-22-2021 ORIF, fracture, humerus [...] FDA Start: 09-02-2021 ERCP (endoscopic retrograde cholangiopancreatography) ([id number]) Polymer-metal biliary stent, non-bioabsorbable ()[id number] FDA Start: 09-02-2021 ERCP (endoscopic retrograde cholangiopancreatography) [...] Cholecystocolostomy Plant polysa ccharide haemostatic agent, bioabsorbable ([id number] FDA Start: 09-02-2021 Cholecystocolostomy Ligation cli p, synthetic polymer, non-bioabsorbable [id number] FDA Start: 09-02-2021 Functional Status Date Assessment Result Facility 09-04-2021 Functional status Ambulates [facility] Work Phone: [facility] Mental Status Date Assessment Result Facility 01-21-2022 Cognitive function Voice/Name [facility] Work Phone: 09-04-2021 Cognitive function Voice/Name [facility] Work Phone: Clinical Notes 12-15-2019 to 02-21-2025 Joshua Celis - 02/21/2025 10:46 AM Annabella Mayorga RN - 02/21/2025 10:29 AM Annabella Mayorga RN - 02/21/2025 10:29 AM EDTCare Coordination - Mary Rico RN - 02/21/2025 10:12 AM EDT Note Date & Type Note Facility 02-21-2025 Note PHYSICAL THERAPY [facility] Initial Evaluation Name/MRN: Douglas Callaway ([id number]) Evaluation Date: 02/21/2025 Date of : 1955 Admission Date: 02/20/2025 2:48 PM Age: 69 y.o. [facility] Discharge Recommendation: Outpatient PT Assessment IMPRESSION: 69 y.o. pt admitted to [facility] for intracranial hemorrhage post fall. They [...] enter in home. 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 Prior Level of Function Prior Level of [...] of Care supervision is transferred to a [facility] Physical Therapist. Bryan (more content not included)... [facility] 02-21-2025 History of Present illness Narrative Images from the original note were not included. PHYSICAL THERAPY [facility] Initial Evaluation Name/MRN: Douglas Callaway ([id number]) Evaluation Date: 02/21/2025 Date of : 1955 Admission Date: 02/20/2025 2:48 PM Age: 69 y.o. Room/Bed: T2-225/T2-225 A Discharge Recommendation: Outpatient PT Assessment IMPRESSION: 69 y.o. pt admitted to [facility] for intracranial hemorrhage post fall. They [...] enter in home. 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 Prior Level of Function Prior Level of [...] of Care supervision is transferred to a [facility] Physical Therapist. Goals and/or [...] 12:44 PM EDT documented in this encounter [facility] 02-21-2025 Note Discharge education completed with patient, no further questions at this time. PIV discontinued. Pt dressed in clothing and sent via wheelchair with to private vehicle. [facility] 02-21-2025 Nurse Note Discharge education completed with patient, no further questions at this time. PIV discontinued. Pt dressed in clothing and sent via wheelchair with to private vehicle. [facility] 02-21-2025 Nurse Note Discharge education completed with patient, no further questions at this time. PIV discontinued. Pt dressed in clothing and sent via wheelchair with to private vehicle. documented in this encounter [facility] 02-21-2025 Note Formatting of this n ote might be different from the original. Care Managment Initial Assessment Date: 02/21/2025 Patient Name: Douglas Callaway : 1955 Patient Information Source of Information: Patient Cognition/Language: WFL - Within Functional Limits Permission given to speak with patient independent sales representative/caregiver as indicated: Yes Confirmation of Payer [...] transportation when pt is discharged. Will follow. [facility] 02-21-2025 Note Formatting of this n ote might be different from the original. Care Managment Initial Assessment Date: 02/21/2025 Patient Name: Douglas Callaway : 1955 Patient Information Source of Information: Patient Cognition/Language: WFL - Within Functional Limits Permission given to speak with patient independent sales representative/caregiver as indicated: Yes Confirmation of Payer [...] transportation when pt is discharged. Will follow. [facility] 02-21-2025 Miscellaneous Notes Care Managment Initial Assessment Date: 02/21/2025 Patient Name: Douglas Callaway : 1955 Patient Information Source of Information: Patient Cognition/Language: WFL - Within Functional Limits Permission given to speak with patient independent sales representative/caregiver as indicated: Yes Confirmation of Payer with patient/family: Yes Payer Name: Medicare [place]: No Confirmation of Primary Care Physician: Confirmed [...] discharged. Will follow. documented in this encounter [facility] 02-21-2025 Consult note Associated Order (s): IP CONSULT TO PALLIATIVE CARE Patient meets trigger criteria for Palliative Care Consultation. The case has been discussed with the Palliative Care Interdisciplinary Team and Case was discussed with Palliative Care team and Trauma team and consultation has been deferred at this time. Douglas Callaway has been seen in consultation by [facility] during their admission to [facility]. They currently have established goals of care and we have signed off of their case. [facility] Work Phone: 02-21-2025 Note Patient meets trigge r criteria for Palliative Care Consultation. The case has been discussed with the Palliative Care Interdisciplinary Team and Case was discussed with Palliative Care team and Trauma team and consultation has been deferred at this time. Douglas Callaway has been seen in consultation by [facility] during their admission to [facility]. They currently have established goals of care and we have signed off of their case. [facility] 02-21-2025 Consult note Associated Order (s): IP CONSULT TO PALLIATIVE CARE Patient meets trigger criteria for Palliative Care Consultation. The case has been discussed with the Palliative Care Interdisciplinary Team and Case was discussed with Palliative Care team and Trauma team and consultation has been deferred at this time. Douglas Callaway has been seen in consultation by [facility] during their admission to [facility]. They currently have established goals of care and we have signed off of their case. Associated Order(s): IP CONSULT TO GERIATRICS [facility] Geriatric Medicine Inpatient Consult Service Admission Date: [...] spasms Advance Care Planning Healthcare Power of Core Checker: Yes, Financial Power of Core Checker: Yes, Living Will:Yes Code Status: Full Code [...] aspirin at home. He was evaluated at [facility] and there was concern for intracranial blood. [...] of this note documented in this encounter [facility] 02-21-2025 Note ---- Attestation signed by [...] on: 02/21/25 Total Care Time (combined between DIRECTOR OF HOME CARE HOSPICE-VETERANS EMPLOYMENT REPRESENTATIVE/LOIS-C/resident and myself) throughout the day today was >= 30 minutes (including chart/data review/analysis, care coordination, and vvvk-ab-kkpc encounter), and was spent discussing/counseling the patient/family [...] Surgery Division of Trauma Department of Surgery [facility] P [1] Patient Active Problem [...] happened around this am on 02/20/2025 at [facility]. When the event happened the patient was leaving the hospital after a sleep study and fell- did not get dizzy but lost his footing. INJURIES: Temporal IPH PROCEDURES: none INCIDENTAL FINDINGS: none Hospital course: 69yM presents as direct admit from [facility] after falling outside in the parking lot [...] glucose meter Result Date: 02/21/2025 Performed by: [facility], [address] [place] [address] CLIA ID: [id number] CT cervical spine wo IV contrast Result Date: 02/21/2025 Patient Name: DOUGLAS CALLAWAY : 1955 Exam Date/Time: 02/20/2025 17:07 Procedure: CT CERVICAL SPINE WO IV CONTRAST Ordering Provider: RAMIREZ NATHAN Reason For Exam: fu sp mech fall from standin (more content not included)... [facility] 02-21-2025 Consult note Associated Order (s): IP CONSULT TO GERIATRICS [facility] Geriatric Medicine Inpatient Consult Service Admission Date: [...] spasms Advance Care Planning Healthcare Power of Core Checker: Yes, Financial Power of Core Checker: Yes, Living Will:Yes Code Status: Full Code [...] mg, 1,000 mg, Oral, q8h, Kaylen Ochoa, DIRECTOR OF HOME CARE HOSPICE - VETERANS EMPLOYMENT REPRESENTATIVE, 1,000 mg at 02/21/25 0639 dextrose 5 [...] disease Father Heart disease Mother Cancer Father [facility] Work Phone: 02-21-2025 Hospital Discharge instructions KHARI [...] the following behavioral health agencies for support: [facility] [address], [facility] [address] [facility] Psychiatry [facility] Behavioral [facility] [address], [place] [address] [facility] [address], [facility] [id number] [facility] [address] [facility], [facility] [address] Should you be out of the [facility] area, you can use this resource to locate local mental health agencies: Findtreatment.gov Victim Assistance Program- provides resources and support to victims of violent crimes, offers victim advocates for those involved in legal proceedings [phone] Should you need immediate help in coping with symptoms or should you feel at risk of harming yourself or others, please use the following crisis resources: Crisis Hotline: 258 Crisis Text Helpine: Text 4HOPE to 307300 Call 911 or go to your nearest [...] more information on Fall Prevention strategies . el@[facility].org or call #486.271.7205. The following attachments cannot be sent through Care Everywhere.Intracerebral Hemorrhage Discharge Instructions ([place] Citizen)Getting Up From a Fall ([place] Citizen)Preventing Falls in Older Adults ([place] Citizen)documented in this encounter [facility] 02-21-2025 Consult note Associated Order (s): [...] aspirin at home. He was evaluated at [facility] and there was concern for intracranial blood. [...] and imaging and preparation of this note [employer] Phone: 02-20-2025 Note ---- Attestation signed by [...] arrival as a direct TICU admission from [facility] ED HPI: 69 y.o. male on ASA [...] with NS 125cc/H - Zofran PRN - LICENSED MARINE ENGINEER consulted - Home protonix - Daily BMP, [...] Surgery Division of Trauma Department of Surgery [facility] P [1] Patient Active Problem List Diagnosis Hyperglycemia CAD, multiple vessel S/P CABG x 3 Fall Intraventricular hemorrhage (HCC) Intracranial hemorrhage (HCC) ---- [facility] Trauma H&P 02/21/2025 6:34 AM Trauma Attending: Dr. Holguin Level of Initial Activation: Direct Admit Upgraded: No To:N/A Mechanism of Injury: Fall Mechanical Mechanism of Arrival:Transfer from [facility] Chief Complaint: head pain History of Traumatic Injury: 69 y.o. male status post fall. The incident happened around this am on 02/20/2025 at [facility]. When the event happened the patient [...] Social History Socioecon (more content not included)... [facility] 02-20-2025 History and physical note Please [...] presentation as a direct TICU admission from [facility] ED I have evaluated the patient on [...] / Plan : - C-collar cleared in [facility] ED - q1h neuro checks [...] Surgery Division of Trauma Department of Surgery [facility] P [1] Patient Active Problem List Diagnosis Hyperglycemia CAD, multiple vessel S/P CABG x 3 Fall [facility] Work Phone: 02-20-2025 Note Please see [...] presentation as a direct TICU admission from [facility] ED I have evaluated the patient on [...] / Plan : - C-collar cleared in [facility] ED - q1h neuro checks [...] Surgery Division of Trauma Department of Surgery [facility] P [1] Patient Active Problem List Diagnosis Hyperglycemia CAD, multiple vessel S/P CABG x 3 Fall [facility] 02-20-2025 History and physical note Please [...] presentation as a direct TICU admission from [facility] ED I have evaluated the patient on [...] / Plan : - C-collar cleared in [facility] ED - q1h neuro checks [...] appropriate exam and evaluation Osiel Holguin MD [facility] Trauma, Surgical Critical Care, & General Surgery Division of Trauma Department of Surgery [facility] P [1] Patient Active Problem List Diagnosis Hyperglycemia CAD, multiple vessel S/P CABG x 3 Fall documented in this encounter [facility] 01-18-2024 Note HNO ID: [id number] Author: KARLA CASTRO, PT, DPT Service: ? [...] Time : 172 Karla Castro, PT, T [facility] 01-18-2024 History of Present illness Narrative Images [...] Castro PT, DPT documented in this encounter [facility] 01-17-2024 Note HNO ID: [id number] Author: KARLA SAUER PA-C Service: ? Author Type: Physician Management Development Specialist Type: Progress Notes Filed: 01/17/2024 15:11 Note [...] ; CABG x 3 EGD 08/2020 at [facility] EGD WITH BIOPSY(S) 05/13/2023 Dr. Fajardo ERCP STENT PLACEMENT BILIARY/PANCREATIC DUCT 09/02/2021 Dr Yarbrough GI TRANSIT AND PRES CARLEY WIRELESS CAPSULE W/INTERP 01/08/2021 Smart Pill-delayed gastric emptying; INCISIONAL BIOPSY SKIN SINGLE LESION biopsy of mass over right eye; benign LAPAROSCOPIC CHOLECYSTECTOMY 09/02/2021 PER ORAL PYLOROMYOTOMY (POP) PROCEDURE (COMP 29158) 06/11/2021 Dr. Bray REMV CATARACT EXTRACAP,INSERT LENS [...] No PHYSICAL EXA (more content not included)... [facility] 01-17-2024 History of Present illness Narrative GASTROENTEROLOGY [...] ; CABG x 3 EGD 08/2020 at [facility] EGD WITH BIOPSY(S) 05/13/2023 Dr. Fajardo ERCP STENT PLACEMENT BILIARY/PANCREATIC DUCT 09/02/2021 Dr Yarbrough GI TRANSIT & PRES CARLEY WIRELESS CAPSULE W/INTERP 01/08/2021 Smart Pill-delayed gastric emptying; INCISIONAL BIOPSY SKIN SINGLE LESION biopsy of mass over right eye; benign LAPAROSCOPIC CHOLECYSTECTOMY 09/02/2021 PER ORAL PYLOROMYOTOMY (POP) PROCEDURE (COMP 07023) 06/11/2021 Dr. Bray REMSylvie CATARACT EXTRACAP,INSERT LENS [...] which included preparing to see the patient, [id number]-[id number] patient care, completing clinical documentation, counseling and educating the patient/family/caregiver, and ordering medications, tests, or procedures. documented in this encounter [facility] 01-10-2024 Note HNO ID: [id number] Author: MARÍA OROSCO PTA Service: ? Author Type: Bank Messenger Type: Progress Notes Filed: 01/10/2024 13:42 Note [...] Session Stop Time : [address] [facility] 01-10-2024 History of Present illness Narrative Episode Visit Count: 17 Therapist That Will Accept/Oversee The Plan Of Care: Kathy Castor Start of Care Date: 08/11/23 Onset Date: [...] María Orosco PTA documented in this encounter [facility] 01-06-2024 Note HNO ID: [id number] Author: KARLA CASTRO, PT, DPT Service: ? 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 Does tend to start speeding [...] Castro PT, DPT documented in this encounter [facility] 12-29-2023 Note HNO ID: [id number] Author: LAVONNE NAVA RN Service: ? Author Type: Registered Nurse Type: Nursing Progress Note Filed: 12/29/2023 12:49 Note Text: Physician at bedside to speak with patient and SO [facility] 12-29-2023 Note HNO ID: [id number] Author: LAVONNE NAVA RN Service: ? Author Type: Registered Nurse Type: Nursing Progress Note Filed: 12/29/2023 12:35 Note Text: Passing air [facility] 12-29-2023 Nurse Note Physician at bedside to speak with patient and SO [facility] 12-29-2023 Nurse Note Physician at bedside to speak with patient and SO Passing air documented in this encounter [facility] 12-29-2023 Nurse Note Passing air [facility] 12-29-2023 Note Formatting of this n ote might be different from the original. The patient received a copy of Colonoscopy discharge instructions that contain information for how to contact the physician who performed the procedure and when to seek medical care. [facility] 12-29-2023 Miscellaneous Notes The patient received a copy of Colonoscopy discharge instructions that contain information for how to contact the physician who performed the procedure and when to seek medical care. documented in this encounter [facility] 12-29-2023 History and physical note Endoscopy pre-operative [...] ; CABG x 3 EGD 08/2020 at [facility] EGD WITH BIOPSY(S) 05/13/2023 Dr. Fajardo ERCP STENT PLACEMENT BILIARY/PANCREATIC DUCT 09/02/2021 Dr Yarbrough GI TRANSIT & PRES CARLEY WIRELESS CAPSULE W/INTERP 01/08/2021 Smart Pill-delayed gastric emptying; INCISIONAL BIOPSY SKIN SINGLE LESION biopsy of mass over right eye; benign LAPAROSCOPIC CHOLECYSTECTOMY 09/02/2021 PER ORAL PYLOROMYOTOMY (POP) PROCEDURE (COMP 22996) 06/11/2021 Dr. Bray REMV CATARACT EXTRACAP,INSERT LENS Bilateral 2016 SHOULDER SURGERY HX TONSILLECTOMY HX OBJECTIVE: PHYSICAL EXAM: VITALS: There were no vitals taken for this visit. General appearance: A&Ox3 Respiratory: Normal chest expansion. No audible wheezes. CVS: No shortness of breath, no extremity edema. Regular pulse. Plan: OK to proceed with endoscopy. SIGNATURE: Naima Lee MD PATIENT NAME: Douglas Callaway JR [facility] Work Phone: 12-29-2023 History and physical note [...] ; CABG x 3 EGD 08/2020 at [facility] EGD WITH BIOPSY(S) 05/13/2023 Dr. Fajardo ERCP STENT PLACEMENT BILIARY/PANCREATIC DUCT 09/02/2021 Dr Yarbrough GI TRANSIT & PRES CARLEY WIRELESS CAPSULE W/INTERP 01/08/2021 Smart Pill-delayed gastric emptying; INCISIONAL BIOPSY SKIN SINGLE LESION biopsy of mass over right eye; benign LAPAROSCOPIC CHOLECYSTECTOMY 09/02/2021 PER ORAL PYLOROMYOTOMY (POP) PROCEDURE (COMP 35875) 06/11/2021 Dr. Bray REMV CATARACT EXTRACAP,INSERT LENS [...] Douglas Callaway JR documented in this encounter [facility] 12-15-2023 Note HNO ID: [id number] Author: ELBA SAMANIEGO, PT, DPT Service: ? [...] Patient to be seen for Therapeutic exercise (30462), Neuromuscular re-education (83451), Manual therapy (34600), Therapeutic activities (10627), Self-usp management (71539), Gait Training (88865), Patient/Family/Caregiver Education PLAN FOR NEXT VISIT: 6 [...] safety. Billing Therapeutic (more content not included)... [facility] 12-15-2023 History of Present illness Narrative Images [...] Patient to be seen for Therapeutic exercise (50019), Neuromuscular re-education (30821), Manual therapy (04615), Therapeutic activities (61225), Self-usp management (49963), Gait Training (16097), Patient/Family/Caregiver Education PLAN FOR NEXT VISIT: 6 [...] Samaniego PT DPT documented in this encounter [facility] 12-09-2023 Note HNO ID: [id number] Author: MARÍA OROSCO PTA Service: ? Author Type: Bank Messenger Type: Progress Notes Filed: 12/09/2023 14:25 Note [...] Session Stop Time : [address] [facility] 12-09-2023 History of Present illness Narrative Program_ID:[id number] Access Code: [email or web address] URL: [email or web address] Date: 12-09-2023 Prepared By: Karla Castro Program Notes Add walking for 20 minutes a day when able Exercises - rent and housing investigator between chairs and working on turning in [...] : 1319 Session Stop Time : 1403 aMría Orosco PTA documented in this encounter [facility] 12-02-2023 Note HNO ID: [id number] Author: ANNE MARIE TOMPKINS RT(Jesús) Service: ? [...] PATIENT PRESENTS WITH AN IMPLANTABLE OR ATTACHED SPECIALIST MANAGERS: No RADIOLOGY DEPARTMENT: MR; Exam(s) Completed: Head: Routine Brain PERIPHERAL IV DATA: Not applicable SIGNED BY: RT Odalys(Jesús) December 02, 2023 1:[address] [facility] 11-29-2023 Note HNO ID: [id number] Author: MARÍA OROSCO PTA Service: ? Author Type: Bank Messenger Type: Progress Notes Filed: 11/29/2023 13:49 Note [...] Session Stop Time : [address] [facility] 11-29-2023 History of Present illness Narrative [...] María Orosco PTA documented in this encounter [facility] 11-24-2023 Note HNO ID: [id number] Author: MARÍA OROSCO PTA Service: ? Author Type: Bank Messenger Type: Progress Notes Filed: 11/24/2023 18:50 Note [...] Session Stop Time : [address] [facility] 11-24-2023 History of Present illness Narrative [...] María Orosco PTA documented in this encounter [facility] 11-18-2023 Note HNO ID: [id number] Author: KARLA CASTRO PT, DPT Service: ? [...] Patient to be seen for Therapeutic exercise (70378), Neuromuscular re-education (33348), Manual therapy (40529), Therapeutic activities (27788), Self-usp management (77214), Gait Training (66155), Patient/Family/Caregiver Education PLAN FOR NEXT VISIT: Work [...] belt utilized during (more content not included)... [facility] 11-18-2023 History of Present illness Narrative Images [...] Patient to be seen for Therapeutic exercise (48247), Neuromuscular re-education (81250), Manual therapy (65232), Therapeutic activities (18652), Self-usp management (71916), Gait Training (06756), Patient/Family/Caregiver Education PLAN FOR NEXT VISIT: Work [...] about goals and POC 3: squats at [facility] x 10 Skilled Intervention: Patient was educated [...] Castro PT DPShawn documented in this encounter [facility] 11-15-2023 Miscellaneous Notes Surgery Checklist Type: colon Admission Type: outpatient Anesthesia: MAC Date: 12/29/2023 Arrival Time: 10:00am Surgery Time: 11:00am Location: [place] Spoke with patient- sending colon prep instruction through my chart Pravin Mukherjee documented in this encounter [facility] 11-11-2023 Note HNO ID: [id number] Author: MARÍA OROSCO PTA Service: ? Author Type: Bank Messenger Type: Progress Notes Filed: 11/11/2023 15:11 Note [...] Session Stop Time : [address] [facility] 11-11-2023 History of Present illness Narrative [...] María Orosco PTA documented in this encounter [facility] 11-11-2023 Miscellaneous Notes called pt left voice mail message asking the patient to call our office back to schedule colon Pravin Mukherjee documented in this encounter [facility] 11-08-2023 Miscellaneous Notes Per prev notes- called [...] 2023 3:20 PM documented in this encounter [facility] 11-03-2023 Note HNO ID: [id number] Author: MARÍA OROSCO PTA Service: ? Author Type: Bank Messenger Type: Progress Notes Filed: 11/03/2023 14:09 Note [...] catch self when walking against resistance on [place] machine. The patient will continue to benefit [...] Session Stop Time : [address] [facility] 11-03-2023 History of Present illness Narrative [...] María Orosco PTA documented in this encounter [facility] 10-28-2023 Note HNO ID: [id number] Author: MARÍA OROSCO PTA Service: ? Author Type: Bank Messenger Type: Progress Notes Filed: 10/28/2023 14:45 Note [...] Session Stop Time : [address] [facility] 10-28-2023 History of Present illness Narrative [...] María Orosco PTA documented in this encounter [facility] 10-26-2023 Note HNO ID: [id number] Author: SHERYL BASSETT MD Service: ? Author [...] MEDICAL HISTORY Diagnosis Date Bipolar II disorder ([facility]) CAD (coronary artery disease) 12/2019 CABG x 3 Carotid artery occlusion with cerebral infarction ([facility]) pt denies this; CVA was secondary to HTN CVA (cerebral vascular accident) ([facility]) 2003 related to untreated HTN; no residual effects Depression Elevated LFTs Gastroparesis POP procedure 06/11/21 GERD (gastroesophageal reflux disease) Hepatitis A 09/2018 Resolved HTN (hypertension) Hyperlipemia Insomnia CABRERA (obstructive sleep apnea) does not currently have a CPAP Osteoporoses Renal insufficiency TIA (transient ischemic attack) prior to CVA in 2003, none since Type 2 diabetes mellitus ([facility]) 2018 Iván Case PCP Current Outpatient Medications Medication Sig Dispense Refill pantoprazole DR (PROTONIX) 40 mg tablet take 1 tablet by mouth twice a day 180 tablet 2 kzjwek-cnqoglzb-uozdwzk (CREON 36) 36,000-114,000- 180,000 unit delayed release capsule Take 2 caps by mouth 3 times daily with meals and 1 cap with each snack. Take 1st cap before meal starts and the 2nd cap chcf through. 240 capsule 5 primidone (MYSOLINE) 50 [...] daily to BE TAKEN ALONG WITH 200 NM... (REFER TO PRESCRIPTION NOTES). lamoTRIgine ER (LAMICTAL [...] daily at bedt (more content not included)... [facility] 10-26-2023 History of Present illness Narrative [...] secondary to HTN CVA (cerebral vascular accident) ([facility]) 2003 related to untreated HTN; no residual [...] mouth twice a day 180 tablet 2 ivoivg-jvnwnroo-nmpngrq (CREON 36) 36,000-114,000- 180,000 unit delayed release capsule Take 2 caps by mouth 3 times daily with meals and 1 cap with each snack. Take 1st cap before meal starts and the 2nd cap chcf through. 240 capsule 5 primidone (MYSOLINE) 50 [...] daily to BE TAKEN ALONG WITH 200 NM... (REFER TO PRESCRIPTION NOTES). lamoTRIgine ER (LAMICTAL [...] patient and /or family. Sheryl Bassett M.D. [facility] Department of Neurology documented in this encounter [facility] 10-25-2023 Miscellaneous Notes Pharmacy interfaced requesting the following refill. Requested Prescriptions Pending Prescriptions Disp Refills pantoprazole DR (PROTONIX) 40 mg tablet [Pharmacy Med Name: PANTOPRAZOLE SOD DR 40 MG TAB] 180 tablet Sig: take 1 tablet by mouth twice a day Next Appointment: Visit date not found Patient Phone numbers: [phone] (home) Request is for script(s) to be escript to pharmacy. Alysia Whyte MA documented in this encounter [facility] 10-21-2023 Note HNO ID: [id number] Author: KARLA CASTRO PT, DPT Service: ? [...] Patient to be seen for Therapeutic exercise (10391), Neuromuscular re-education (92921), Manual therapy (64883), Therapeutic activities (82047), Self-usp management (49937), Gait Training (50342), Patient/Family/Caregiver Education PLAN FOR NEXT VISIT: leg [...] POC and goals (more content not included)... [facility] 10-21-2023 History of Present illness Narrative Summary: [...] Patient to be seen for Therapeutic exercise (70686), Neuromuscular re-education (99006), Manual therapy (64197), Therapeutic activities (74323), Self-usp management (60322), Gait Training (77128), Patient/Family/Caregiver Education PLAN FOR NEXT VISIT: leg [...] Time : 1141 Karla Castro PT, DPT Program_ID:[id number] Access Code: [email or web address] URL: [email or web address] m/ Date: 10-21-2023 Prepared By: Karla Castro Program Notes Add walking for 20 minutes a day when able Exercises - rent and housing investigator between chairs and working on turning in [...] - 10 reps documented in this encounter [facility] 10-13-2023 Note HNO ID: [id number] Author: KARLA SAUER PA-C Service: ? Author Type: Physician Management Development Specialist Type: Progress Notes Filed: 10/13/2023 14:04 Note [...] ; CABG x 3 EGD 08/2020 at [facility] EGD WITH BIOPSY(S) 05/13/2023 Dr. Fajardo ERCP STENT PLACEMENT BILIARY/PANCREATIC DUCT 09/02/2021 Dr Yarbrough GI TRANSIT AND PRES CARLEY WIRELESS CAPSULE W/INTERP 01/08/2021 Smart Pill-delayed gastric emptying; INCISIONAL BIOPSY SKIN SINGLE LESION biopsy of mass over right eye; benign LAPAROSCOPIC CHOLECYSTECTOMY 09/02/2021 PER ORAL PYLOROMYOTOMY (POP) PROCEDURE (COMP 65580) 06/11/2021 Dr. Bray REMV CATARACT EXTRACAP,INSERT LENS [...] 1 tablet by mouth twice a day ljsfvo-fgcrelnp-jonclsy (CREON 36) 36,000-114,000- 180,000 unit delayed release capsule Take 2 caps by mouth 3 times daily with meals and 1 cap with each snack. Take 1st cap before meal starts and the 2nd cap chcf through. ondansetron (ZOFRAN) 4 mg tablet Take [...] daily to BE TAKEN ALONG WITH 200 NM... (REFER TO PRESCRIPTION NOTES). rosuvastatin (CRESTOR) 10 [...] (Patient not taki (more content not included)... [facility] 10-13-2023 History of Present illness Narrative GASTROENTEROLOGY [...] ; CABG x 3 EGD 08/2020 at [facility] EGD WITH BIOPSY(S) 05/13/2023 Dr. Fajardo ERCP STENT PLACEMENT BILIARY/PANCREATIC DUCT 09/02/2021 Dr Yarbrough GI TRANSIT & PRES CARLEY WIRELESS CAPSULE W/INTERP 01/08/2021 Smart Pill-delayed gastric emptying; INCISIONAL BIOPSY SKIN SINGLE LESION biopsy of mass over right eye; benign LAPAROSCOPIC CHOLECYSTECTOMY 09/02/2021 PER ORAL PYLOROMYOTOMY (POP) PROCEDURE (COMP 05462) 06/11/2021 Dr. Bray REMV CATARACT EXTRACAP,INSERT LENS [...] 1 tablet by mouth twice a day vaesmg-ieibimwj-ebpylem (CREON 36) 36,000-114,000- 180,000 unit delayed release capsule Take 2 caps by mouth 3 times daily with meals and 1 cap with each snack. Take 1st cap before meal starts and the 2nd cap chcf through. ondansetron (ZOFRAN) 4 mg tablet Take [...] daily to BE TAKEN ALONG WITH 200 NM... (REFER TO PRESCRIPTION NOTES). rosuvastatin (CRESTOR) 10 [...] give him a nurse ambassador sheet from [facility] to call to see if he [...] insufficiency - ICD9: 577.8, ICD10: K86.81 - [id number] 36,000-114,000-180,000 UNIT CAPSULE,DELAY REL Karla Sauer PA-C I spent a total of 30 minutes on the date of the service which included preparing to see the patient, ikgq-zd-uqzt patient care, completing clinical documentation, counseling and educating the patient/family/caregiver, and ordering medications, tests, or procedures. documented in this encounter [facility] 10-11-2023 Note HNO ID: [id number] Author: MARÍA OROSCO PTA Service: ? Author Type: Bank Messenger Type: Progress Notes Filed: 10/11/2023 17:35 Note [...] Stop Time : 1547 María Orosco PTA [facility] 10-11-2023 History of Present illness Narrative Program_ID:[id number] Access Code: [email or web address] URL: [email or web address] m/ Date: 10-11-2023 Prepared By: Karla Castro Program Notes Exercises - rent and housing investigator between chairs and working on turning in [...] María Orosco PTA documented in this encounter [facility] 10-06-2023 Note HNO ID: [id number] Author: MARÍA OROSCO PTA Service: ? Author Type: Bank Messenger Type: Progress Notes Filed: 10/06/2023 16:19 Note [...] Session Stop Time : [address] [facility] 09-23-2023 Note HNO ID: [id number] Author: KARLA CASTRO, PT, DPT Service: ? [...] Patient to be seen for Therapeutic exercise (40781), Neuromuscular re-education (73973), Manual therapy (64765), Therapeutic activities (96535), Self-usp management (39178), Gait Training (21307), Patient/Family/Caregiver Education PLAN FOR NEXT VISIT: right [...] Time : 1538 Karla Castro, PT, DPT [facility] 09-21-2023 Note HNO ID: [id number] Author: OLESYA VASQUEZ MD Service: ? Author [...] PACC clearance and anesthesiology clearance from his technologist infectious disease. Chief Complaint Nasal bone fracture History of [...] ; CABG x 3 EGD 08/2020 at [facility] EGD WITH BIOPSY(S) 05/13/2023 Dr. Fajardo ERCP STENT PLACEMENT BILIARY/PANCREATIC DUCT 09/02/2021 Dr Yarbrough GI TRANSIT AND PRES CARLEY WIRELESS CAPSULE W/INTERP 01/08/2021 Smart Pill-delayed gastric emptying; INCISIONAL BIOPSY SKIN SINGLE LESION biopsy of mass over right eye; benign LAPAROSCOPIC CHOLECYSTECTOMY 09/02/2021 PER ORAL PYLOROMYOTOMY (POP) PROCEDURE (COMP 72311) 06/11/2021 Dr. Tomy LARSON CATARACT EXTRACAP,INSERT LENS [...] 1 tablet by mouth twice a day aujjdz-fgktoxse-larqles (CREON 36) 36,000-114,000- 180,000 unit delayed release capsule Take 2 caps by mouth 3 times daily with meals and 1 cap with each snack. Take 1st cap before meal starts and the 2nd cap chcf through. ondansetron (ZOFRAN) 4 mg tablet Take 1 tablet by mouth once daily as needed for nausea/vomiting (for nausea.). losartan (COZAAR) 50 mg tablet Take 1 tablet by mouth every afternoon. aspirin, enteric coated (JAILENE LOW DOSE ASPIRIN) 81 mg EC tablet Take by mouth. lamoTRIgine (LAMICTAL) 100 mg tablet take 1/2 tablet by mouth once daily to BE TAKEN ALONG WITH 200 NM... (REFER TO PRESCRIPTION NOTES). doxepin capsule 10 [...] 1 hour p (more content not included)... [facility] 09-16-2023 Note HNO ID: [id number] Author: ANNE MARIE COELHO RT(R) Service: Radiology [...] RT Mariah(R) September 16, 2023 5:05 PM [facility] 09-16-2023 Note HNO ID: [id number] Author: KARLA CASTRO PT, DPT Service: ? Author Type: Physical Therapist Type: Progress Notes Filed: 09/16/2023 15:37 Note Text: [facility] in [facility] after checking in to the kiosk. Pt was bandaged and escorted to the ED. [facility] 09-16-2023 Note HNO ID: [id number] Author: GER DREW RN Service: ? Author Type: Registered Nurse Type: Procedures Filed: 09/16/2023 16:42 Note Text: Patient checked in for physical therapy appointment in the lobby, fell in the hallway of the [facility] building, 1st floor. He walked to the elevator and was assisted on the third floor by another patient to get help by the durable medical equipment technician in pediatric cardiology. He was bleeding from [...] notified and present on 3rd floor of [facility] Building. Patient checked in and waiting to be seen in the ED, patients is aware. [facility] 08-23-2023 Miscellaneous Notes Called patient, left [...] viviana Left a voice mail to call [phone] and ask for therapy to schedule an appointment. [employer] message documented in this encounter [facility] 08-19-2023 Note HNO ID: [id number] Author: Karla Castro PT, DPT Service: ? [...] Time : 1800 Karla Castro PT, DPT [facility] 08-19-2023 History of Present illness Narrative Program_ID:[id number] Access Code: [email or web address] URL: [email or web address] m/ Date: 08-19-2023 Prepared By: Karla Castro Program Notes Exercises - rent and housing investigator between chairs and working on turning in [...] Time : 1800 Karla Castro PT, DPT documented in this encounter [facility] 08-12-2023 Note HNO ID: [id number] Author: Cindy Ryan DO Service: ? Author [...] when applicable. Jesús Perdomo DO Staff Neurologist [facility] 08-12-2023 History of Present illness Narrative [...] when applicable. Jesús Perdomo DO Staff Neurologist [facility] documented in this encounter [facility] 08-11-2023 Note HNO ID: [id number] Author: Elba Samaniego PT DPT Service: ? 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 Author [...] daily to BE TAKEN ALONG WITH 200 NM... (REFER TO PRESCRIPTION NOTES). rosuvastatin (CRESTOR) 10 [...] 8 hours i (more content not included)... [facility] 07-27-2023 Note HNO ID: [id number] Author: Ross Dimas MA Service: ? Author Type: Occupational Hygienist Type: Progress Notes Filed: 07/27/2023 5:18 PM Note Text: There is no data to display for this encounter [facility] 07-27-2023 History of Present illness Narrative [...] MEDICAL HISTORY Diagnosis Date Bipolar II disorder ([facility]) CAD (coronary artery disease) 12/2019 CABG x 3 Carotid artery occlusion with cerebral infarction ([facility]) pt denies this; CVA was secondary to HTN CVA (cerebral vascular accident) ([facility]) 2003 related to untreated HTN; no residual effects Depression Elevated LFTs Gastroparesis POP procedure 06/11/21 GERD (gastroesophageal reflux disease) Hepatitis A 09/2018 Resolved HTN (hypertension) Hyperlipemia Insomnia CABRERA (obstructive sleep apnea) does not currently have a CPAP Osteoporoses Renal insufficiency TIA (transient ischemic attack) prior to CVA in 2003, none since Type 2 diabetes mellitus ([facility]) 2018 Iván Case PCP Current Outpatient Medications [...] daily to BE TAKEN ALONG WITH 200 NM... (REFER TO PRESCRIPTION NOTES). rosuvastatin (CRESTOR) 10 [...] family. July 27, 2023 Sheryl Bassett M.D. [facility] Department of Neurology There is no data to display for this encounter documented in this encounter [facility] 07-27-2023 Miscellaneous Notes Checked kerwingal and marcia patient not present at time of visit documented in this encounter [facility] 07-26-2023 Note HNO ID: [id number] Author: Karla Sauer PA-C Service: ? Author Type: Physician Management Development Specialist Type: Progress Notes Filed: 07/26/2023 11:16 AM [...] daily to BE TAKEN ALONG WITH 200 NM... (REFER TO PRESCRIPTION NOTES). rosuvastatin (CRESTOR) 10 [...] ANES 09/2017 normal (more content not included)... [facility] 06-10-2023 Note HNO ID: [id number] Author: Germaine Bray MD Service: ? Author [...] ; CABG x 3 EGD 08/2020 at [facility] EGD WITH BIOPSY(S) 05/13/2023 Dr. Fajardo ERCP STENT PLACEMENT BILIARY/PANCREATIC DUCT 09/02/2021 Dr Yarbrough GI TRANSIT AND PRES CARLEY WIRELESS CAPSULE W/INTERP 01/08/2021 Smart Pill-delayed gastric emptying; INCISIONAL BIOPSY SKIN SINGLE LESION biopsy of mass over right eye; benign LAPAROSCOPIC CHOLECYSTECTOMY 09/02/2021 PER ORAL PYLOROMYOTOMY (POP) PROCEDURE (COMP 17958) 06/11/2021 Dr. Bray REMV CATARACT EXTRACAP,INSERT LENS [...] % ophthalmic solutio (more content not included)... [facility] 05-13-2023 History and physical note HISTORY AND [...] ; CABG x 3 EGD 08/2020 at [facility] ERCP STENT PLACEMENT BILIARY/PANCREATIC DUCT 09/02/2021 Dr Yarbrough GI TRANSIT & PRES CARLEY WIRELESS CAPSULE W/INTERP 01/08/2021 Smart Pill-delayed gastric emptying; INCISIONAL BIOPSY SKIN SINGLE LESION biopsy of mass over right eye; benign LAPAROSCOPIC CHOLECYSTECTOMY 09/02/2021 PER ORAL PYLOROMYOTOMY (POP) PROCEDURE (COMP 15867) 06/11/2021 Dr. Tomy REMV CATARACT EXTRACAP,INSERT LENS [...] EC tablet Take by mouth. Yes aspirin ([employer] CHEWABLE ASPIRIN) 81 mg chewable tablet Take [...] daily to BE TAKEN ALONG WITH 200 NM... (REFER TO PRESCRIPTION NOTES). 05/10/2023 rosuvastatin (CRESTOR) [...] which included preparing to see the patient, qerf-zu-jmgh patient care, completing clinical documentation, obtaining and/or reviewing separately obtained history, and performing a medically appropriate examination. SIGNATURE: Tiffany Ramey APRN.CNP PATIENT NAME: Douglas Callaway JR DATE: May 13, 2023 TIME: 7:27 AM PAGER/CONTACT #: documented in this encounter [facility] 05-13-2023 Surgical operation note OPERATIVE/PROCEDURE REPORT LOG ID: [id number] Surgery/Procedure Date: Incision/Procedure Start Time: 3:21 PM Incision Close/Procedure End Time: 3:27 PM Surgeon(s)/Proceduralist(s) and Management Development Specialist(s): Surgeon(s) and Role: * Germaine Bray MD [...] PM PAGER/CONTACT #: documented in this encounter [facility] 04-22-2023 Note HNO ID: [id number] Author: Rowena Silvestre RT(R) Service: Nuclear Medicine [...] [address] PERFORMED: No IV SITE: [place] only - not applicable, oral or physician administered agents given to patient POST EXAM PIV STATUS: Not applicable PROCEDURE TYPE: NM GET: 1.1 mCi Tc99m SULFUR COLLOID was administered orally via 4 ounces of Egg Beaters,1 piece of toast, 1/2 ounce of jelly with 4 ounces of water orally ADMINISTRATION TIME: 07:50 PATIENT DISCHARGED TO: Ambulatory patient, left [place] department area. A Diagnostic radioactive procedure has taken place, with no further precautions necessary other than routine body substance precautions. More information regarding radiation safety can be found using this link: [email or web address] %[email or web address]-%20Diagnostic%20Nuclear%20Medicine %20Procedures.pdf SIGNATURE: RT Pratima(R) PATIENT NAME: Douglas Callaway JR DATE: April 22, 2023 TIME: 9:45 AM PAGER/CONTACT #: [facility] 04-22-2023 History of Present illness Narrative [...] 07:50 PATIENT DISCHARGED TO: Ambulatory patient, left [place] department area. A Diagnostic radioactive procedure has taken place, with no further precautions necessary other than routine body substance precautions. More information regarding radiation safety can be found using this link: [email or web address] [email or web address]% 20-%20Diagnostic%20Nuclear%20Medicine% 20Procedures.pdf SIGNATURE: RT Pratima(Jesús) PATIENT NAME: Douglas Callaway JR DATE: April 22, 2023 TIME: 9:45 AM PAGER/CONTACT #: documented in this encounter [facility] 04-09-2023 Miscellaneous Notes I spoke with patient and scheduled EGD for 05/13/2023 @ 3:00 pm. Prep/instructions given verbally and mailed to the patient. Patient also scheduled for a follow up 06/10/2023. Spring Reilly MA Left voicemail for patient to call the office to schedule EGD then follow up in office. Spring Reilly MA documented in this encounter [facility] 04-08-2023 Note HNO ID: [id number] Author: Vianca Martinez RT(R) Service: ? Author Type: Drafter Electrical Type: Progress Notes Filed: 04/08/2023 3:37 PM [...] DATE: April 08, 2023 TIME: 3:[address] [facility] 04-08-2023 History of Present illness Narrative [...] TIME: 3:37 PM documented in this encounter [facility] 04-06-2023 Note HNO ID: [id number] Author: Germaine Bray MD Service: ? Author [...] ; CABG x 3 EGD 08/2020 at [facility] ERCP STENT PLACEMENT BILIARY/PANCREATIC DUCT 09/02/2021 Dr Yarbrough GI TRANSIT AND PRES CARLEY WIRELESS CAPSULE W/INTERP 01/08/2021 Smart Pill-delayed gastric emptying; INCISIONAL BIOPSY SKIN SINGLE LESION biopsy of mass over right eye; benign LAPAROSCOPIC CHOLECYSTECTOMY 09/02/2021 PER ORAL PYLOROMYOTOMY (POP) PROCEDURE (COMP 60751) 06/11/2021 Dr. Bray REMV CATARACT EXTRACAP,INSERT LENS [...] Take 1-2 t (more content not included)... [facility] 04-06-2023 History of Present illness Narrative SURGICAL [...] ; CABG x 3 EGD 08/2020 at [facility] ERCP STENT PLACEMENT BILIARY/PANCREATIC DUCT 09/02/2021 Dr Yarbrough GI TRANSIT & PRES CARLEY WIRELESS CAPSULE W/INTERP 01/08/2021 Smart Pill-delayed gastric emptying; INCISIONAL BIOPSY SKIN SINGLE LESION biopsy of mass over right eye; benign LAPAROSCOPIC CHOLECYSTECTOMY 09/02/2021 PER ORAL PYLOROMYOTOMY (POP) PROCEDURE (COMP 30449) 06/11/2021 Dr. Bray REMV CATARACT EXTRACAP,INSERT LENS [...] 06, 2023 TIME: 12:33 PM PAGER/CONTACT #: [phone] documented in this encounter [facility] 06-11-2021 History of Past i llness Narrative Problem Noted Date Diagnosed Date Resolved Date Gastroparesis 06/11/2021 06/12/2021 documented as of this encounter (statuses as of 04/06/2023) [facility] History of Past illness Narrative* Problem Noted Date Diagnosed Date Resolved Date Gastroparesis 06/11/2021 06/12/2021 documented as of this encounter (statuses as of 04/09/2023) [facility] History of Past illness Narrative* Problem Noted Date Diagnosed Date Resolved Date Gastroparesis 06/11/2021 06/12/2021 documented as of this encounter (statuses as of 05/14/2023) [facility] History of Past illness Narrative* Problem Noted Date Diagnosed Date Resolved Date Gastroparesis 06/11/2021 06/12/2021 documented as of this encounter (statuses as of 07/12/2023) [facility] History of Past illness Narrative* Problem Noted Date Diagnosed Date Resolved Date Gastroparesis 06/11/2021 06/12/2021 documented as of this encounter (statuses as of 07/12/2023) [facility] History of Past illness Narrative* Problem Noted Date Diagnosed Date Resolved Date Gastroparesis 06/11/2021 06/12/2021 documented as of this encounter (statuses as of 07/28/2023) [facility] History of Past illness Narrative* Problem Noted Date Diagnosed Date Resolved Date Gastroparesis 06/11/2021 06/12/2021 documented as of this encounter (statuses as of 07/28/2023) [facility] History of Past illness Narrative* Problem Noted Date Diagnosed Date Resolved Date Gastroparesis 06/11/2021 06/12/2021 documented as of this encounter (statuses as of 08/12/2023) [facility] History of Past illness Narrative* Problem Noted Date Diagnosed Date Resolved Date Gastroparesis 06/11/2021 06/12/2021 documented as of this encounter (statuses as of 08/13/2023) [facility] History of Past illness Narrative* Problem Noted Date Diagnosed Date Resolved Date Gastroparesis 06/11/2021 06/12/2021 documented as of this encounter (statuses as of 08/20/2023) [facility] History of Past illness Narrative* Problem Noted Date Diagnosed Date Resolved Date Gastroparesis 06/11/2021 06/12/2021 documented as of this encounter (statuses as of 10/12/2023) [facility] History of Past illness Narrative* Problem Noted Date Diagnosed Date Resolved Date Gastroparesis 06/11/2021 06/12/2021 documented as of this encounter (statuses as of 10/14/2023) [facility] History of Past illness Narrative* Problem Noted Date Diagnosed Date Resolved Date Gastroparesis 06/11/2021 06/12/2021 documented as of this encounter (statuses as of 10/21/2023) [facility] History of Past illness Narrative* Problem Noted Date Diagnosed Date Resolved Date Gastroparesis 06/11/2021 06/12/2021 documented as of this encounter (statuses as of 10/25/2023) [facility] History of Past illness Narrative* Problem Noted Date Diagnosed Date Resolved Date Gastroparesis 06/11/2021 06/12/2021 documented as of this encounter (statuses as of 10/28/2023) [address]06-2021 History of Past illness Narrative* Problem Noted Date Diagnosed Date Resolved Date Gastroparesis 06/11/2021 06/12/2021 documented as of this encounter (statuses as of 11/04/2023) [address]06-2021 History of Past illness Narrative* Problem Noted Date Diagnosed Date Resolved Date Gastroparesis 06/11/2021 06/12/2021 documented as of this encounter (statuses as of 11/08/2023) [facility] History of Past illness Narrative* Problem Noted Date Diagnosed Date Resolved Date Gastroparesis 06/11/2021 06/12/2021 documented as of this encounter (statuses as of 11/11/2023) [facility] History of Past illness Narrative* Problem Noted Date Diagnosed Date Resolved Date Gastroparesis 06/11/2021 06/12/2021 documented as of this encounter (statuses as of 11/11/2023) [facility] History of Past illness Narrative* Problem Noted Date Diagnosed Date Resolved Date Gastroparesis 06/11/2021 06/12/2021 documented as of this encounter (statuses as of 11/13/2023) [facility] History of Past illness Narrative* Problem Noted Date Diagnosed Date Resolved Date Gastroparesis 06/11/2021 06/12/2021 documented as of this encounter (statuses as of 11/15/2023) [facility] History of Past illness Narrative* Problem Noted Date Diagnosed Date Resolved Date Gastroparesis 06/11/2021 06/12/2021 documented as of this encounter (statuses as of 11/16/2023) [facility] History of Past illness Narrative* Problem Noted Date Diagnosed Date Resolved Date Gastroparesis 06/11/2021 06/12/2021 documented as of this encounter (statuses as of 11/18/2023) [facility] History of Past illness Narrative* Problem Noted Date Diagnosed Date Resolved Date Gastroparesis 06/11/2021 06/12/2021 documented as of this encounter (statuses as of 11/25/2023) [facility]10-06-2021 History of Past illness Narrative* Problem Noted Date Diagnosed Date Resolved Date Gastroparesis 06/11/2021 06/12/2021 documented as of this encounter (statuses as of 11/29/2023) [facility]21 History of Past illness Narrative* Problem Noted Date Diagnosed Date Resolved Date Gastroparesis 06/11/2021 06/12/2021 documented as of this encounter (statuses as of 12/10/2023) [facility]21 History of Past illness Narrative* Problem Noted Date Diagnosed Date Resolved Date Gastroparesis 06/11/2021 06/12/2021 documented as of this encounter (statuses as of 12/16/2023) [facility] History of Past illness Narrative* Problem Noted Date Diagnosed Date Resolved Date Gastroparesis 06/11/2021 06/12/2021 documented as of this encounter (statuses as of 12/23/2023) [facility]04-10-2020 Evaluation note* Diagnosis Onset Date Resolution Status Atherosclerosis of coronary artery of seneca heart without angina pectoris chronic Essential hypertension chron ic Hyperlipidemia chronic H/O coronary artery bypass surgery December 15, 2019 resolved [facility] Work Phone: Evaluation noteThere may be information available, but it has not been provided by the sender.[facility] Work Phone: Evaluation note* Diagnosis Onset Date Resolution Status Bile leak, postoperative res olved S/P ERCP resolved [facility] Work Phone: Evaluation noteNo assessment information available [facility] Work Phone: Evaluation note* Diagnosis Onset Date Resolution Status Bile leak acute Gastroparesis acute Acute gallstone pancreatitis resolved [facility] Work Phone: Evaluation note* Diagnosis Nausea- Primary Nausea alone Gastroparesis Heartburn [facility] Preop examination Preoperative examination, unspecified Primary hypertension Unspecified essential hypertension Diabetes mellitus without complication (HCC) Type II or unspecified type diabetes mellitus without mention of complication, not stated as uncontrolled ACBRERA (obstructive sleep apnea) Obstructive sleep apnea (adult) (pediatric) Gastroparesis Heartburn documented in this encounter [facility] note* Diagnosis Nausea Nausea alone documented in this encounter [facility] note* Diagnosis Weakness of both lower extremities documented in this encounter [facility] note* Diagnosis Radiculopathy, lumbosacral region- Primary Thoracic or lumbosacral neuritis or radiculitis, unspecified Weakness of both lower extremities documented in this encounter [facility] note* Diagnosis Abnormality of gait- Primary Weakness of both lower extremities Imbalance Abnormality of gait documented in this encounter [facility] note* Diagnosis Diabetes mellitus without complication (HCC)- Primary Type II or unspecified type diabetes mellitus without mention of complication, not stated as uncontrolled Weakness of both lower extremities Abnormality of gait Imbalance Abnormality of gait documented in this encounter [facility] note* Diagnosis Diabetes mellitus without complication (HCC)- Primary Type II or unspecified type diabetes mellitus without mention of complication, not stated as uncontrolled Weakness of both lower extremities Abnormality of gait Imbalance Abnormality of gait documented in this encounter [facility] note* Diagnosis Postprocedural leakage from bile duct Diarrhea, unspecified type Exocrine pancreatic insufficiency Other specified disease of pancreas [facility]* Diagnosis Diabetes mellitus without complication (HCC)- Primary Type II or unspecified type diabetes mellitus without mention of complication, not stated as uncontrolled Weakness of both lower extremities Abnormality of gait Imbalance Abnormality of gait documented in this encounter [facility] note* Diagnosis Diabetes mellitus without complication (HCC)- Primary Type II or unspecified type diabetes mellitus without mention of complication, not stated as uncontrolled Weakness of both lower extremities Abnormality of gait Imbalance Abnormality of gait documented in this encounter [facility] note* Diagnosis Diabetes mellitus without complication (HCC)- Primary Type II or unspecified type diabetes mellitus without mention of complication, not stated as uncontrolled Weakness of both lower extremities Abnormality of gait Imbalance Abnormality of gait documented in this encounter [facility] note* Diagnosis Abnormality of gait due to impairment of balance- Primary Transient cerebral ischemia, unspecified type documented in this encounter [facility] note* Diagnosis Diabetes mellitus without complication (HCC)- Primary Type II or unspecified type diabetes mellitus without mention of complication, not stated as uncontrolled Weakness of both lower extremities Abnormality of gait Imbalance Abnormality of gait documented in this encounter [facility] note* Diagnosis Diabetes mellitus without complication (HCC)- Primary Type II or unspecified type diabetes mellitus without mention of complication, not stated as uncontrolled Weakness of both lower extremities Abnormality of gait Imbalance Abnormality of gait documented in this encounter [facility] note* Diagnosis Diabetes mellitus without complication (HCC)- Primary Type II or unspecified type diabetes mellitus without mention of complication, not stated as uncontrolled Weakness of both lower extremities Abnormality of gait Imbalance Abnormality of gait Abnormality of gait due to impairment of balance documented in this encounter [facility] note* Diagnosis Exocrine pancreatic insufficiency- Primary Other specified disease of pancreas Nausea and vomiting, unspecified vomiting type Abnormality of gait due to impairment of balance documented in this encounter [facility] note* Diagnosis Diabetes mellitus without complication (HCC)- Primary Type II or unspecified type diabetes mellitus without mention of complication, not stated as uncontrolled Abnormality of gait due to impairment of balance Weakness of both lower extremities Abnormality of gait Imbalance Abnormality of gait documented in this encounter [facility] note* Diagnosis Preop examination Preoperative examination, unspecified Primary hypertension Unspecified essential hypertension Diabetes mellitus without complication (HCC) Type II or unspecified type diabetes mellitus without mention of complication, not stated as uncontrolled CABRERA (obstructive sleep apnea) Obstructive sleep apnea (adult) (pediatric) Gastroparesis Heartburn Diarrhea, unspecified type documented in this encounter [facility] note* Diagnosis Intracranial hemorrhage (HCC)- Primary Unspecified intracranial hemorrhage Intracranial hemorrhage (HCC) Unspecified intracranial hemorrhage Fall Unspecified fall Intraventricular hemorrhage (HCC) documented [facility] Work Phone: Reason for referral (narrative)* Outpatient Procedure (Routine) - Closed Specialty Diagnoses / Procedures Referred By Gali blake Referred To Contact [facility] Diagnoses Gastroparesis Heartburn Procedures EGD DIAGNOSTIC EGD DIAGNOSTIC ESOPHAGOGASTRODUODENOSC OPY TRANSORAL DIAGNOSTIC Germaine Bray MD [address] [address] [facility] [address] [place] [address] Referral ID Status Reason Start Date Expiration Date V isits Requested Visits Authorized [id number] Closed Auto-Generate d Referral 04/06/2023 04/06/2024 1 1 [facility] for referral (narrative)* Diagnostic Procedure Only (Routine) - Closed Specialty Diagnoses / Procedures Referred By Gali blake Referred To Contact [facility] Diagnoses Nausea Procedures NM GASTRIC EMPTYING SOLID GASTRIC EMPTYING STUDY Germaine Bray MD [address] [address] [facility] [address] [place] [address] Referral ID Status Reason Start Date Expiration Date V isits Requested Visits Authorized [id number] Closed Auto-Generate d Referral 04/06/2023 05/05/2024 1 1 [facility] for referral (narrative)* Outpatient Procedure (Routine) - Authorized Specialty Diagnoses / Procedures Referred By Gali blake Referred To Contact [facility] Diagnoses Weakness of both lower extremities Procedures EMG(NEURO/NI) NERVE CONDUCTION STUDIES 9-10 STUDIES Sheryl Bassett MD [address] [place] [address] [address] [place] [address] Referral ID Status Reason Start Date Expiration Date Visits Requested Visits Authorized [id number] Authorized Auto-Generat ed Referral 3 07/27/2024 1 1 * Physical Therapy (Routine) - Authorized Specialty Diagnoses / Procedures Referred By Gali blake Referred To Contact [facility] Diagnoses Weakness of both lower extremities Procedures CONSULT TO PHYSICAL THERAPY PHYSICAL THERAPY EVALUATION HIGH COMPLEX 45 MINS Sheryl Basstet MD [address] [place] [address] [facility] [address] [place] [address] Referral ID Status Reason Start Date Expiration Date Visits Requested Visits Authorized [id number] Authorized PCP Requested Referral Auto-Generate d Referral 07/26/2024 99 99 [facility] for referral (narrative)* Outpatient Procedure (Routine) - Closed Specialty Diagnoses / Procedures Referred By Contac t Referred To Contact [facility] Diagnoses Diarrhea, unspecified type Procedures COLONOSCOPY DIAGNOSTIC COLONOSCOPY FLX DX W/COLLJ SPEC WHEN PFJACID Karla Sauer PA-C [address] [place] [address] [address] Referral ID Status Reason Start Date Expiration Date V isits Requested Visits Authorized [id number] Closed Auto-Generate d Referral 11/10/2023 11/09/2024 1 1 [facility] for visit Narrative* Outpatient Procedure (Routine) - Closed Specialty Diagnoses / Procedures [facility] To Contact [facility] Diagnoses Gastroparesis Heartburn Procedures EGD DIAGNOSTIC EGD DIAGNOSTIC ESOPHAGOGASTRODUODENOSC OPY TRANSORAL DIAGNOSTIC Germaine Bray MD [address] [address] [place] [id number] [place] [address] Referral ID Status Reason Start Date Expiration Date V isits Requested Visits Authorized [id number] Closed Auto-Generate d Referral 04/06/2023 04/06/2024 1 1 [facility] for visit Narrative* Outpatient Procedure (Routine) - Closed Specialty Diagnoses / Procedures [facility] Diagnoses Diarrhea, unspecified type Procedures COLONOSCOPY DIAGNOSTIC COLONOSCOPY FLX DX W/COLLJ SPEC WHEN PFRMD Karla Sauer PA-C [address] [place] [address] [facility] [address] [place] [address] Referral ID Status Reason Start Date Expiration Date V isits Requested Visits Authorized [id number] Closed Auto-Generate d Referral 11/10/2023 11/09/2024 1 1 [facility] for visit Narrative* Auth/Cert (Routine) Specialty Diagnoses / Procedures Referred By Contac t Referred To Contact Diagnoses fall Procedures .. Iban Ramirez MD [address] [place] [address] Phone: tel: fax: [facility] Intensive [facility] ICU T[address] [place] [address] Phone: tel: Referral ID Status Reason Start Date Expiration Date Visits Re quested Visits Authorized [id number] 1 1 [facility] Summary Purpose Family History No Family History Records Found Relationship Condition Age at Onset Recorded Date/T alexia father Malignant neoplasm of colon Unknown Coronary artery disease Unknown mother Gastric ulcer Unknown Presence of cardiac pacemaker Unknown Fibrosis of lung Unknown Cardiac disease Unknown Advance Directives No Advanced Directives Records FoundDocuments on File Type Date Recorded 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 Advance Directives and Living Will Power of Core Checker Latest Code Status on File Code Status Date Activated Date Inactivated Comments Full Code 12/15/2019 12:55 PM Full Code 12/15/2019 5:48 AM 12/15/2019 9:53 AM Advance Directive Response Recorded Date/ Time Advance Directives No November 19 9:18am Living Will Yes September 01 9:52am Power of Core Checker Yes September 01, 2021 9:52am Advance Directive Response Recorded Date/ Time Advance Directives No November 19 9:18am Living Will Yes January 19, 2022 1 2:19pm Power of Core Checker Yes January 19, 2022 12:19pm Advance Directive Response Recorded Date/ Time Name of Medical Power of Core Checker on file, TIMA Callaway January 19, 2022 12:19pm Advance Directives No November 19 9:18am Living Will Yes January 30, 2022 9 :04pm Power of Core Checker Yes January 30, 2022 9:04pm Advance Directive Response Recorded Date/ Time Advance Directives No November 19 9:18am Living Will Yes January 30, 2022 9 :04pm Power of Core Checker Yes January 30, 2022 9:04pm Advance Directive Response Recorded Date/ Time Advance Directives No November 19 020 8:18am Living Will Yes January 30, 2022 8 :04pm Power of Core Checker Yes January 30, 2022 8:04pm Documents on File Type Date Recorded 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 : 1955 Age: 64 y.o. ADMIT DATE: 12/15/2019 DISCHARGE DATE: 12/20/2019 DISCHARGING SURGEON: Colton Marroquin MD Office Number: [phone] PRIMARY CARE PHYSICIAN: Neo Tian MD VISIT STATUS: Admission CODE STATUS: Full Code DISCHARGE DIAGNOSES: Active Problems: CAD in seneca artery CAD, multiple vessel Hyperglycemia S/P CABG [...] and cardiac catheterization completed on 11/20/19 at [facility] revealed occluded mid LAD, 80% 1st diagonal lesion and 75% 2nd Diagonal and based upon his presentation and comorbidities it was felt that (more content not included)... Assessments Diagnosis Dizziness Dizziness and giddiness Diagnosis CAD, multiple vessel Coronary atherosclerosis of unspecified type of vessel, seneca or graft Preoperative examination Preoperative examination, unspecified Diagnosis S/P CABG x 3 Postsurgical aortocoronary bypass status CAD in seneca artery Coronary atherosclerosis of seneca coronary artery CAD, multiple vessel Coronary atherosclerosis of unspecified type of vessel, seneca or graft Hyperglycemia Other abnormal glucose Discharge Instructions * Discharge Instr - Lab* Stella Roy LPN - 12/16/2019 3:12 PM EDT Your physician has ordered skilled home care services for you. Your home care will be provided by: [facility] [phone] Scheduling [phone] * Additional Instructions* Jarocho Ambrocio APRN - SAP HANA DEVELOPER - 12/19/2019 [facility]: Cardiothoracic Surgery [address] [facility] #[phone] Notify us if the following occur - [...] blood glucose(sugar) levels. -Call endocrine clinic at [phone] in one week to review sugar log. -Recommend blood glucose (sugar) stay below 150. Call telephone technician office if levels frequently over 180. * Attachments The following attachments cannot be sent through Care Everywhere. * Coronary Artery Bypass Graft: Post-op ([place] Citizen) documented in this encounter History of Present [...] 12/20/2019 10:32 AM EDT Occupational Therapy Facility/Department: [facility] Daily Treatment Note [...] x 3. A diagnosis of CAD in seneca artery was also pertinent to this visit. has a past medical history of Bipolar 2 disorder ([facility]), CAD (coronary artery disease), Cancer ([facility]), Cerebral artery occlusion with cerebral infarction (HCC), Depression, Diabetes mellitus (HCC), Elevated LFTs, GERD (gastroesophageal reflux disease), Hepatitis A, Hyperlipidemia, Hypertension, Insomnia, CABRERA (obstructive sleep apnea), and TIA (transient ischemic attack). has a past surgical history that includes Cataract removal; Tonsillectomy; Josephine tooth extraction;and Colonoscopy. Restrictions Restrictions/Precautions Restrictions/Precautions: Cardiac, [...] Minutes(ther act-1) MARIOLA Smith * Sarah Teresa, DIRECTOR OF HOME CARE HOSPICE - VETERANS EMPLOYMENT REPRESENTATIVE - 12/20/2019 10:16 AM EDT ENDOCRINOLOGY PROGRESS NOTE Patient: Douglas Callaway . Unit/Bed:[id number] Date of : 1955 Admit date: 12/15/2019 Subjective: The patient is being followed for: type 2 DM with stress hyperglycemia without snf insulin use In view of COVID 19 pandemic, today's follow up visit is completed remotely after carefully reviewing the chart and determining that endocrinology service could be safely rendered remotely This note represents a Telehealth visit note Tool/mechanism used for communication with the patient during this encounter: [x] Phone (audio communication) [] Video enabled device (using VFA.ri) [] Couldn't directly talk to the patient Reviewed the following: [x] Primary team note [x] Other network systems consultant(s) note(s) [x] Relevant LAB results [x] [...] Has good appetite and no complaints. Ate malian toast for BF. Relieved by: insulin given [...] to preserve PPE for other caregivers, a tnsn-cu-dlxi encounter with the patient was not performed. That being said, all relevant records and diagnostic tests were reviewed, including laboratory results and imaging. Please reference any relevant documentation elsewhere. Care will be coordinated with the primary service. Assessment: Type 2 DM with stress hyperglycemia without snf insulin use S/p cabg Plan: Recommendations/Changes As inpatient now: No changes to inpatient regimen at this time. Home going Diabetes regimen: He can re start metformin 1g BID I recommend patient check his sugar 2-3 times per day and keep a written log of his sugars. He should call our clinic at [phone] in one week to review his sugar [...] Date 12/20/19 0000 - 12/20/19 2359 Shift [phone] [id number] 24 Hour Total INTAKE P.O. 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 Unit/Bed:[id number] Date of : 1955 Admit date: 12/15/2019 Subjective: The patient is being followed for: type 2 DM with stress hyperglycemia without intermediate accountant insulin use In view of COVID 19 pandemic, today's follow up visit is completed remotely after carefully reviewing the chart and determining that endocrinology service could be safely rendered remotely This note represents a Telehealth visit note Tool/mechanism used for communication with the patient during this encounter: [] Phone (audio communication) [] Video enabled device (using Immunovaccine) [x] Couldn't directly talk to the patient because sleeping while getting PRBC infusion Reviewed the following: [x] Primary team note [x] Other network systems consultant(s) note(s) [x] Relevant LAB results [x] [...] to preserve PPE for other caregivers, a vadq-py-vckc encounter with the patient was not performed. That being said, all relevant records and diagnostic tests were reviewed, including laboratory results and imaging. Please reference any relevant documentation elsewhere. Care will be coordinated with the primary service. Assessment: Type 2 DM with stress hyperglycemia without snf insulin use S/p cabg Plan: Recommendations/Changes As [...] Virtual visit is appropriate. * Chata Mckenzie, PASS WORKER - 12/19/2019 11:14 AM EDT Physical Therapy Facility/Department: [facility] Daily Treatment Note [...] surgical history that includes Cataract removal; Tonsillectomy; Josephine tooth extraction;and Colonoscopy. Restrictions Restrictions/Precautions Restrictions/Precautions: Cardiac, [...] toilet) Chata Mckenzie PTA * Alicia Carroll, DIRECTOR OF HOME CARE HOSPICE - VETERANS EMPLOYMENT REPRESENTATIVE - 12/19/2019 4:44 AM EDT Cardiothoracic Surgery [...] 12/18/2019 2:48 PM EDT Physical Therapy Facility/Department: [facility] Daily Treatment Note [...] surgical history that includes Cataract removal; Tonsillectomy; Josephine tooth extraction;and Colonoscopy. Restrictions Restrictions/Precautions Restrictions/Precautions: Cardiac, [...] Functional Limits Cognition Cognition Overall Cognitive Status: [facility] Cognition Comment: ID's , age, president and [...] Code Treatment Minutes: (GT, TP) Chata Mckenzie PASS WORKER * Alicia Carroll APRN - CNP - [...] Prognosis: Good Decision Making: Medium Complexity Exam: [facility] OT Education: OT Role;Plan of Care;Precautions;ADL Adaptive [...] surgical history that includes Cataract removal; Tonsillectomy; Josephine tooth extraction;and Colonoscopy. 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 G-Code Modifier : CK Goals Short term [...] Plan of Care supervision is transferred to [facility] Occupational Therapist. Elba Harper OTR/L * Janet Zaman APRN - CNP - 12/18/2019 1:38 PM EDT [facility] [address] [id number] Dept: [phone] Loc: [phone] Visit Date: 12/18/2019 Patient Chart, Consults notes, [...] Both Eyes BID Alicia Carroll APRN - VETERANS EMPLOYMENT REPRESENTATIVE 1 drop at 12/18/19 0917 insulin glargine [...] 40 mg Oral QAM AC SepKHARI - SAP HANA DEVELOPER 40 mg at 12/18/19 0529 enoxaparin (LOVENOX) injection 40 mg 40 mg Subcutaneous Daily SepKHARI SAP HANA DEVELOPER 40 mg at 12/18/19916 amLODIPine (NORVASC) tablet 5 mg 5 mg Oral Daily SepKHARI 5 mg at 12/18/19917 metoprolol tartrate (LOPRESSOR) tablet 50 mg 50 mg Oral BID SepKHARI - SAP HANA DEVELOPER 50 mg at sodium chloride flush 0.9 [...] patch 2 patch Transdermal Daily KHARI Izaguirre VETERANS EMPLOYMENT REPRESENTATIVE 2 patch at12/18/19 0917 acetaminophen (TYLENOL) tablet [...] to preserve PPE for other caregivers, a dret-bx-aifv encounter with the patient was not performed. [...] Range: >60 mL/min >60.0 EGFR IF NonAfrican [place] Latest Ref Range: >60 mL/min >60.0 Glucose [...] Murray CNP * Alicia Carroll, KHARI - VETERANS EMPLOYMENT REPRESENTATIVE - 12/18/2019 5:14 AM EDT Cardiothoracic Surgery [...] Bose RCP - 12/17/2019 11:12 PM EDT [facility] Respiratory Care Department Progress Note Patient [...] care of this patient, * Dasha Freed, DIRECTOR OF HOME CARE HOSPICE - VETERANS EMPLOYMENT REPRESENTATIVE - 12/17/2019 12:07 PM EDT PAGING: The Acute Pain Service providers are available by pager. Please reference [employer] and/or [facility] Phonebook for Pain Management Provider RESIDENTIAL GAS HEAT TECHNICIAN and direct all questions to the provider [...] Patient Active Problem List Diagnosis CAD in [place] artery CAD, multiple vessel Hyperglycemia S/P CABG x 3 CABLE TENDER: None Physical Exam Vitals signs and nursing [...] providers are available by pager. Please reference [facility] and/or [facility] Phonebook for Pain Management Provider RESIDENTIAL GAS HEAT TECHNICIAN and direct all questions to the provider listed. [facility] Pain Management has agreed to see our patients after they are discharged. Patients should be instructed to call [phone]. Please ask patient to sign a medical release andsend medical records to [facility].They will contact the patient with an appointment time. * Gerald Hernandez MD - 12/17/2019 9:49 AM EDT [facility] [address] [place] [address] Dept: [phone] Loc: [phone] Visit Date: 12/17/2019 HPI: Douglas Callaway Jr. [...] mg 40 mg Oral QAM AC Sep KHARI Ambrocio - SAP HANA DEVELOPER 40 mg at 12/17/19 0616 enoxaparin (LOVENOX) injection 40 mg 40 mg Subcutaneous Daily Sep AmbrocioKHARI SAP HANA DEVELOPER 40 mg at 12/17/19 0820 amLODIPine (NORVASC) tablet 5 mg 5 mg Oral Daily SepKHARI [employer] HANA DEVELOPER 5 mg at 12/17/19 0820 metoprolol tartrate (LOPRESSOR) tablet 50 mg 50 mg Oral BID Sep AmbrocioKHARI SAP HANA DEVELOPER 50 mg at 12/16/200810 sodium chloride flush [...] patch 2 patch Transdermal Daily Dasha Freed DIRECTOR OF HOME CARE HOSPICE - VET[employer]ANS [employer]MENT REPRESENTATIVE 2 patch at12/17/19 0820 acetaminophen (TYLENOL) tablet 1,000 mg 1,000 mg Oral TID Eve Carrion KHARI - VETERANS EMPLOYMENT REPRESENTATIVE 1,000 mg at 12/17/19 0820 No Known [...] to preserve PPE for other caregivers, a ldal-eq-xmnj encounter with the patient was not performed. [...] morning of surgery 12/12/19 Yes Alicia Carroll, DIRECTOR OF HOME CARE HOSPICE - VET[employer]ANS EM[employer]MENT REPRESENTATIVE dorzolamide-timolol (COSOPT) 22.3-6.8 MG/ML ophthalmic solution Place [...] This note may have been dictated using [employer] Practice Edition 2.6 and/or [employer] Voice Recognition Feature. The document was proofread; however, unrecognized voice recognition loader demolder errors may be present. * Vianca Baca, MS, RD, LD - 12/16/2019 12:42 PM EDT Nutrition Assessment Type and Reason for Visit: Initial, Consult(Post op) Nutrition Recommendations: 1. If pt starting to consume >50% of meals, recommend Cardiac, Carbohydrate Control as goal diet. 2. Will add Ensure HP as an official order in [facility], per diet order pt can order [...] attempted to call into pt's room (limiting gxkh-zd-zssu contact with [employer] [employer]) however call was unanswered. RD did drop off diet education outside pt's room (in paper chart), and RN was caring for pt at that time. Malnutrition Assessment: Malnutrition Status: At risk for malnutrition Context: Acute illness or injury Nutrition Risk Level: High Nutrient Needs: Estimated Daily Total Kcal: 1226-3315 kcal/day Estimated Daily Protein (g): 70-84 gm [...] (ONS) Orders: None(No actual ONS order in [facility]) ONS intake: Unable to assess Anthropometric Measures: Ht: 5' 8 (172.7 cm) Admission Body Wt: 184 lb 1.4 oz (83.5 kg)(bedscale) Usual Body Wt: 170 lb (77.1 kg)(per chart review) [place] Body Wt: 154 lb (69.9 kg), % [place] Body 119% BMI Classification: BMI 25.0 - [...] Number: pager [phone] * Freed Dasha K, DIRECTOR OF HOME CARE HOSPICE - VET[employer]ANS EM[employer]MENT REPRESENTATIVE - 12/16/2019 12:24 PM EDT PAGING: The Acute Pain Service providers are available by pager. Please reference [employer] and/or [facility] Phonebook for Pain Management Provider RESIDENTIAL GAS HEAT TECHNICIAN and direct all questions to the provider [...] Patient Active Problem List Diagnosis CAD in [place] artery CAD, multiple vessel Hyperglycemia CABLE TENDER: None Physical Exam Vitals signs and nursing [...] providers are available by pager. Please reference [employer] and/or [employer] Phonebook for Pain Management Provider RESIDENTIAL GAS HEAT TECHNICIAN and direct all questions to the provider listed. [facility] Pain Management has agreed to see our patients after they are discharged. Patients should be instructed to call [phone]. Please ask patient to sign a medical release andsend medical records to [facility].They will contact the patient with an appointment time. * Leydi Mcdermott, PT - 12/16/2019 10:42 AM EDT Physical Therapy Facility/Department: [facility] Initial Assessment NAME: [...] surgical history that includes Cataract removal; Tonsillectomy; Josephine tooth extraction;and Colonoscopy. Restrictions Restrictions/Precautions Restrictions/Precautions: Cardiac, [...] Plan of Care supervision is transferred to [facility] Rehab Department Physical Therapist. Leydi Mcdermott PT * Gerald Hernandez MD - 12/16/2019 9:19 AM EDT [facility] [address] [facility] [address] Dept: [phone] Loc: [phone] Visit Date: 12/16/2019 HPI: Douglas Callaway Jr. [...] 40 mg Oral QAM AC Sep Ambrocio, DIRECTOR OF HOME CARE HOSPICE - SAP HANA DEVELOPER 40 mg at 12/16/19 0835 ketorolac (TORADOL) injection 15 mg 15 mg Intravenous Q6H Sep Cristóbal, DIRECTOR OF HOME CARE HOSPICE - SAP HANA DEVELOPER 15 mg at 12/16/19 0850 enoxaparin (LOVENOX) injection 40 mg 40 mg Subcutaneous Daily Sep Cristóbal, DIRECTOR OF HOME CARE HOSPICE - [employer] HANA DEVELOPER amLODIPine (NORVASC) tablet 5 mg 5 mg Oral Daily Sep Ambrocio, DIRECTOR OF HOME CARE HOSPICE - [employer] HANA DEVELOPER metoprolol tartrate (LOPRESSOR) tablet 50 mg 50 mg Oral BID Sep Cristóbal, KHARI - SAP HANA DEVELOPER 0.9 % sodium chloride infusion Intravenous Continuous [...] to preserve PPE for other caregivers, a zxau-js-pjxa encounter with the patient was not performed. [...] 8:01 AM Subjective: Admit Date: 12/15/2019 PCP: Neo Tian MD Chief Complaint: chest pain No chief complaint on file. Interval History: Extubated yesterday Has feeling of urinary urgency, has toscano Tachy, regular started on b-bridgett CXR: Lung volumes are shallow. Mild worsening of the left lower lung atelectasis. Mild elevation of the right hemidiaphragm is stable. Heart and mediastinal contours are stable. Endotracheal tube has been removed. Louise-Iza catheter is in satisfactory position. No pneumothorax. [...] GAS: Recent Labs 12/15/19 1150 PHART 7.397 [id number] 40.3 PO2ART 373.8* KJU0VVB 24.2 [id number] 98.6 Objective: Vitals: Temp (24hrs), Av.5 F (36.4 C), Min:96.8 F (36 C), Max:97.9 F (36.6 C) BP 137/84 Pulse 130 Temp 97.9 F (36.6 C) Resp 23 Ht 5' 8 (1.727 m) Wt 170 lb (77.1 kg) SpO2 93% BMI 25.85 kg/m I/O: 12/15/19 07 - 12/16/19 0712/16/19 07 - 12/17/19 0700 Shift 0776-9061 4866-8520 0881-6050 24 Hour Total 9530-9042 9440-4147 7143-1548 24 Hour Total INTAKE P.O. 700 700 I.V. 687 1880 2567 Blood 247.5 600 847.5 Volume (Transfuse platelets) 600 600 Volume (Transfuse platelets) 247.5 247.5 Other 6499 387 3204 IV Piggyback 417 417 Shift Total 1740.5 2184 2580 6504.5 OUTPUT Urine 960 1525 1020 3505 Chest Tube 727 811 320 7769 Shift Total 1687 1916 1350 4953 NET 53.5 268 1230 1551.5 Ventilator Settings: PHYSICAL EXAM: General Appearance: [x]WDWN []Obese []Cachectic []Thin []ill Skin: Temperature [x]Warm []Cool Rash []Yes []No Tattoo(s) []Yes []No HEENT: Pupils round and react [x]Yes []No Sclera []Icteric [x]Non-Icteric Conjunctiva []Injected [x]Non-Injected Pinnae []Normal []Other Dentitian [x][place] Teeth []Dentures []edentulous Oral Mucosa [x][place] [x]Moist []Dry Oral ETT []Present [x]Absent Neck: [...] [x]Absent AVERY ([x]RUE [x]RLE [x]LUE [x]LLE) Neurologic: [place] []Yes [x]No Corneal reflexes [x]Present []Absent Plantar [...] Nutrition--po diet See orders. * Jarocho Ambrocio, DIRECTOR OF HOME CARE HOSPICE - SAP HANA DEVELOPER - 12/16/2019 7:03 AM EDT Cardiothoracic Surgery [...] Date 12/16/19 0000 - 12/16/19 2359 Shift 4256-9927 5808-0138 7335-3698 24 Hour Total INTAKE Shift Total(mL/kg) OUTPUT [...] CARDIAC; Problem List: Active Problems: CAD in [place] artery CAD, multiple vessel Hyperglycemia Resolved Problems: [...] Ingram RCP - 12/15/2019 3:08 PM EDT [facility] Respiratory Care Department Progress Note Spontaneous [...] the care of this patient, * Bertha Ney OT - 12/15/2019 2:30 PM EDT Occupational [...] Visit Atherosclerosis of c oronary artery of [place] heart without angina pectoris Essential hypertension Hyperlipidemia H/O coronary artery bypass surgery Reason for Referral Specialty Diagnoses / Procedures Referred By Gali t Referred To Contact CT IMAGING Diagnoses Nausea Procedures CT ABD/PEL W IVCON CT ABD & PELVIS W/CONTRAST Germaine Bray MD 1 [facility] [address] [place] [address] Ct Imaging Referral ID Status Reason Start Date Expiration Date Visits Requested Visits Authorized [id number] Authorized Auto-Generat ed Referral 04/06/2023 05/05/2024 1 1 Specialty Diagnoses / Procedures Referred By Contac t Referred To Contact [facility] Diagnoses Gastroparesis Heartburn Procedures EGD DIAGNOSTIC ESOPHAGOGASTRODUODENOSC OPY TRANSORAL DIAGNOSTIC Germaine Bray MD [address] [address] [facility] [address] [place] [address] Referral ID Status Reason Start Date Expiration Date Visits Requested Visits Authorized [id number] Pending Review Auto-Generat ed Referral 04/06/2023 04/06/2024 1 1 Specialty Diagnoses / Procedures Referred By Contac t Referred To Contact MOLECULAR & FUNCTIONAL IMAGING Diagnoses Nausea Procedures NM GASTRIC EMPTYING SOLID GASTRIC EMPTYING STUDY Germaine Bray MD [address] [address] Molecular & Functional Imaging [address] [place] [address] Referral ID Status Reason Start Date Expiration Date Visits Requested Visits Authorized [id number] Authorized Auto-Generat ed Referral 04/06/2023 05/05/2024 1 1 Specialty Diagnoses / Procedures Referred By Contac t Referred To Contact CT IMAGING Diagnoses Nausea Procedures CT ABD/PEL W IVCON CT ABD & PELVIS W/CONTRAST Germaine Bray MD [address] [address] [address] Imaging [id number] Referral ID Status Reason Start Date Expiration Date V isits Requested Visits Authorized [id number] Closed Auto-Generate d Referral 04/06/2023 05/05/2024 1 1 Specialty Diagnoses / Procedures Referred By Contac t Referred To Contact [facility] Diagnoses Weakness of both lower extremities Procedures CONSULT TO TELEGRAPHIC INSTRUMENT SUPERVISOR OCCUPATIONAL THERAPY EVAL HIGH COMPLEX 60 MINS Sheryl Bassett MD [address] [place] [address] [facility] [address] [place] [address] Referral ID Status Reason Start Date Expiration Date Visits Requested Visits Authorized [id number] Authorized PCP Requested Referral Auto-Generate d Referral 08/12/2023 08/11/2024 99 99 Specialty Diagnoses / Procedures Referred By Jayac t Referred To Contact MR IMAGING Diagnoses Transient cerebral ischemia, unspecified type Procedures MRI BRAIN WO IVCON MRI BRAIN BRAIN STEM W/O CONTRAST MATERIAL Sheryl Bassett MD [address] [place] [address] Mr Imaging [id number] Referral ID Status Reason Start Date Expiration Date Visits Requested Visits Authorized [id number] Authorized Auto-Generat ed Referral 10/26/2023 11/24/2024 1 1 Specialty Diagnoses / Procedures Referred By Gali t Referred To Contact [facility] Diagnoses Abnormality of gait due to impairment of balance Procedures CONSULT TO PHYSICAL THERAPY PHYSICAL THERAPY EVALUATION HIGH COMPLEX 45 MINS Sheryl Bassett MD [address] [place] [address] [facility] [address] [place] [address] Referral ID Status Reason Start Date Expiration Date Visits Requested Visits Authorized [id number] Authorized PCP Requested Referral Auto-Generate d Referral [...] section and content) DATE CREATED AUTHOR 01/21/2020 [facility] DATE CREATED AUTHOR AUTHOR'S ORGANIZ ATION 01/03/2024 [facility] DATE CREATED AUTHOR AUTHOR'S ORGANIZ ATION 01/20/2024 [facility] DATE CREATED AUTHOR AUTHOR'S ORGANIZ ATION 01/23/2024 [facility] DATE CREATED AUTHOR AUTHOR'S ORGANIZ ATION 02/28/2025 [facility] DATE CREATED AUTHOR AUTHOR'S ORGANIZ ATION 03/03/2025 [facility] Source Comments (unrecognize d section and content) In the event this informatio n is protected by the Federal Confidentiality of Alcohol and Drug Abuse Patient Records regulations: The Federal rules restrict any use of the information to criminally investigate or prosecute any alcohol or drug abuse patient.[facility] the event this information is protected by the Federal Confidentiality of Alcohol and Drug Abuse Patient Records regulations: The Federal rules restrict any use of the information to criminally investigate or prosecute any alcohol or drug abuse patient.[facility] the event this information is protected by the Federal Confidentiality of Alcohol and Drug Abuse Patient Records regulations: The Federal rules restrict any use of the information to criminally investigate or prosecute any alcohol or drug abuse patient.[facility] the event this information is protected by the Federal Confidentiality of Alcohol and Drug Abuse Patient Records regulations: The Federal rules restrict any use of the information to criminally investigate or prosecute any alcohol or drug abuse patient.[facility] the event this information is protected by the Federal Confidentiality of Alcohol and Drug Abuse Patient Records regulations: The Federal rules restrict any use of the information to criminally investigate or prosecute any alcohol or drug abuse patient.[facility] the event this information is protected by the Federal Confidentiality of Alcohol and Drug Abuse Patient Records regulations: The Federal rules restrict any use of the information to criminally investigate or prosecute any alcohol or drug abuse patient.[facility] the event this information is protected by the Federal Confidentiality of Alcohol and Drug Abuse Patient Records regulations: The Federal rules restrict any use of the information to criminally investigate or prosecute any alcohol or drug abuse patient.[facility] the event this information is protected by the Federal Confidentiality of Alcohol and Drug Abuse Patient Records regulations: The Federal rules restrict any use of the information to criminally investigate or prosecute any alcohol or drug abuse patient.[facility] the event this information is protected by the Federal Confidentiality of Alcohol and Drug Abuse Patient Records regulations: The Federal rules restrict any use of the information to criminally investigate or prosecute any alcohol or drug abuse patient.[facility] the event this information is protected by the Federal Confidentiality of Alcohol and Drug Abuse Patient Records regulations: The Federal rules restrict any use of the information to criminally investigate or prosecute any alcohol or drug abuse patient.[facility]In the event this information is protected by the Federal Confidentiality of Alcohol and Drug Abuse Patient Records regulations: The Federal rules restrict any use of the information to criminally investigate or prosecute any alcohol or drug abuse patient.[facility]In the event this information is protected by the Federal Confidentiality of Alcohol and Drug Abuse Patient Records regulations: The Federal rules restrict any use of the information to criminally investigate or prosecute any alcohol or drug abuse patient.[facility] HospitalIn the event this information is protected by the Federal Confidentiality of Alcohol and Drug Abuse Patient Records regulations: The Federal rules restrict any use of the information to criminally investigate or prosecute any alcohol or drug abuse patient.[facility] HospitalIn the event this information is protected by the Federal Confidentiality of Alcohol and Drug Abuse Patient Records regulations: The Federal rules restrict any use of the information to criminally investigate or prosecute any alcohol or drug abuse patient.[facility] HospitalIn the event this information is protected by the Federal Confidentiality of Alcohol and Drug Abuse Patient Records regulations: The Federal rules restrict any use of the information to criminally investigate or prosecute any alcohol or drug abuse patient.[facility] HospitalIn the event this information is protected by the Federal Confidentiality of Alcohol and Drug Abuse Patient Records regulations: The Federal rules restrict any use of the information to criminally investigate or prosecute any alcohol or drug abuse patient.[facility] HospitalIn the event this information is protected by the Federal Confidentiality of Alcohol and Drug Abuse Patient Records regulations: The Federal rules restrict any use of the information to criminally investigate or prosecute any alcohol or drug abuse patient.[facility] HospitalIn the event this information is protected by the Federal Confidentiality of Alcohol and Drug Abuse Patient Records regulations: The Federal rules restrict any use of the information to criminally investigate or prosecute any alcohol or drug abuse patient.[facility] HospitalIn the event this information is protected by the Federal Confidentiality of Alcohol and Drug Abuse Patient Records regulations: The Federal rules restrict any use of the information to criminally investigate or prosecute any alcohol or drug abuse patient.[facility] HospitalIn the event this information is protected by the Federal Confidentiality of Alcohol and Drug Abuse Patient Records regulations: The Federal rules restrict any use of the information to criminally investigate or prosecute any alcohol or drug abuse patient.[facility] HospitalIn the event this information is protected by the Federal Confidentiality of Alcohol and Drug Abuse Patient Records regulations: The Federal rules restrict any use of the information to criminally investigate or prosecute any alcohol or drug abuse patient.[facility] HospitalIn the event this information is protected by the Federal Confidentiality of Alcohol and Drug Abuse Patient Records regulations: The Federal rules restrict any use of the information to criminally investigate or prosecute any alcohol or drug abuse patient.[facility] HospitalIn the event this information is protected by the Federal Confidentiality of Alcohol and Drug Abuse Patient Records regulations: The Federal rules restrict any use of the information to criminally investigate or prosecute any alcohol or drug abuse patient.[facility] HospitalIn the event this information is protected by the Federal Confidentiality of Alcohol and Drug Abuse Patient Records regulations: The Federal rules restrict any use of the information to criminally investigate or prosecute any alcohol or drug abuse patient.[facility] HospitalIn the event this information is protected by the Federal Confidentiality of Alcohol and Drug Abuse Patient Records regulations: The Federal rules restrict any use of the information to criminally investigate or prosecute any alcohol or drug abuse patient.[facility] HospitalIn the event this information is protected by the Federal Confidentiality of Alcohol and Drug Abuse Patient Records regulations: The Federal rules restrict any use of the information to criminally investigate or prosecute any alcohol or drug abuse patient.[facility] HospitalIn the event this information is protected by the Federal Confidentiality of Alcohol and Drug Abuse Patient Records regulations: The Federal rules restrict any use of the information to criminally investigate or prosecute any alcohol or drug abuse patient.[facility] HospitalIn the event this information is protected by the Federal Confidentiality of Alcohol and Drug Abuse Patient Records regulations: The Federal rules restrict any use of the information to criminally investigate or prosecute any alcohol or drug abuse patient.[facility] HospitalIn the event this information is protected by the Federal Confidentiality of Alcohol and Drug Abuse Patient Records regulations: The Federal rules restrict any use of the information to criminally investigate or prosecute any alcohol or drug abuse patient.[facility] HospitalIn the event this information is protected by the Federal Confidentiality of Alcohol and Drug Abuse Patient Records regulations: The Federal rules restrict any use of the information to criminally investigate or prosecute any alcohol or drug abuse patient.[facility] HospitalIn the event this information is protected by the Federal Confidentiality of Alcohol and Drug Abuse Patient Records regulations: The Federal rules restrict any use of the information to criminally investigate or prosecute any alcohol or drug abuse patient.[facility] HospitalIn the event this information is protected by the Federal Confidentiality of Alcohol and Drug Abuse Patient Records regulations: The Federal rules restrict any use of the information to criminally investigate or prosecute any alcohol or drug abuse patient.[facility] HospitalIn the event this information is protected by the Federal Confidentiality of Alcohol and Drug Abuse Patient Records regulations: The Federal rules restrict any use of the information to criminally investigate or prosecute any alcohol or drug abuse patient.[facility] HospitalIn the event this information is protected by the Federal Confidentiality of Alcohol and Drug Abuse Patient Records regulations: The Federal rules restrict any use of the information to criminally investigate or prosecute any alcohol or drug abuse patient.[facility] HospitalIn the event this information is protected by the Federal Confidentiality of Alcohol and Drug Abuse Patient Records regulations: The Federal rules restrict any use of the information to criminally investigate or prosecute any alcohol or drug abuse patient.[facility] HospitalIn the event this information is protected by the Federal Confidentiality of Alcohol and Drug Abuse Patient Records regulations: The Federal rules restrict any use of the information to criminally investigate or prosecute any alcohol or drug abuse patient.[facility] Reason for Visit (unrecogniz ed section and content) Reason Comments PT Progress Note PT Discharge Specialty Diagnoses / Procedures Referred By Contac t Referred To Contact [facility] Diagnoses Abnormality of gait due to impairment of balance Procedures CONSULT TO PHYSICAL THERAPY PHYSICAL THERAPY EVALUATION HIGH COMPLEX 45 MINS Sheryl Bassett MD [address] [place] [address] [facility] [address] [address] Referral ID Status Reason Start Date Expiration Date Visits Requested Visits Authorized [id number] Authorized PCP Requested Referral Auto-Generate d Referral 10/26/2023 10/25/2024 99 99 Reason Comments Physical Therapy Reason Comments PT Progress Note Specialty Diagnoses / Procedures Referred By Contac t Referred To Contact PHYSICAL THERAPY Diagnoses Weakness of both lower extremities Procedures CONSULT TO PHYSICAL THERAPY PHYSICAL THERAPY EVALUATION HIGH COMPLEX 45 MINS Sheryl Bassett MD [address] [place] [address] [facility] [address] [place] [address] Referral ID Status Reason Start Date Expiration Date Visits Requested Visits Authorized [id number] Authorized PCP Requested Referral Auto-Generate d Referral 3 07/26/2024 [address] Specialty Diagnoses / Procedures Referred By Contac t Referred To Contact CT IMAGING Diagnoses Nausea Procedures CT ABD/PEL W IVCON CT ABD & PELVIS W/CONTRAST Germaine Bray MD [address] [facility] [address] [place] [address] [place] [address] Referral ID Status Reason Start Date Expiration Date V isits Requested Visits Authorized [id number] Closed Auto-Generate d Referral 04/06/2023 05/05/2024 1 [...] GASTRIC EMPTYING STUDY Germaine Bray MD [address] [place] [address] Molecular & Functional Imaging [address] [place] [address] Referral ID Status Reason Start Date Expiration Date V isits Requested Visits Authorized [id number] Closed Auto-Generate d Referral 04/06/2023 05/05/2024 1 1 Reason Comments Appointment Reason Comments New Patient Specialty Diagnoses / Procedures Referred By Contac t Referred To Contact Neurology Diagnoses Weakness of both lower extremities Procedures CONSULT TO NEUROLOGY OFFICE/OUTPATIENT NEW HIGH MDM 60-74 MINUTES Germaine Bray MD [address] [place] [address] Referral ID Status Reason Start Date Expiration Date V isits Requested Visits Authorized [id number] Closed PCP Requested Referral 06/10/2023 06/09/2024 1 1 Reason Onset Date Comments EMG 08/12/2023 Specialty Diagnoses / Procedures Referred By Contac t Referred To Contact [facility] Diagnoses Weakness of both lower extremities Procedures EMG(NEURO/NI) NERVE CONDUCTION STUDIES 9-10 STUDIES Sheryl Bassett MD [address] [place] [address] [address] [place] [address] Referral ID Status Reason Start Date Expiration Date V isits Requested Visits Authorized [id number] Closed Auto-Generate d Referral 07/27/2023 07/27/2024 1 1 Reason Comments PT Eval Patient Education Specialty Diagnoses / Procedures Referred By Contac t Referred To Contact [facility] Diagnoses Weakness of both lower extremities Procedures CONSULT TO PHYSICAL THERAPY PHYSICAL THERAPY EVALUATION HIGH COMPLEX 45 MINS Sheryl Bassett MD [address] [place] [address] [facility] [place] [address] Specialty Diagnoses / Procedures Referred By Contac t Referred To Contact [facility] Diagnoses Weakness of both lower extremities Procedures CONSULT TO PHYSICAL THERAPY PHYSICAL THERAPY EVALUATION HIGH COMPLEX 45 MINS Sheryl Bassett MD [address] [place] [address] [facility] [address] [address] Reason Comments Established Patient Specialty Diagnoses / Procedures Referred By Contac t Referred To Contact Gastroenterology Diagnoses Postprocedural leakage from bile duct Diarrhea, unspecified type Procedures CONSULT TO GASTROENTEROLOGY OFFICE/OUTPATIENT [facility] MDM 60-74 MINUTES Germaine Bray MD [address] [facility] [address] [place] [address] Referral ID Status Reason Start Date Expiration Date V isits Requested Visits Authorized [id number] Closed PCP Requested Referral 06/10/2023 06/09/2024 1 [...] Care Teams (unrecognized sec tion and content) Outsewer Relationship Specialty Start Date End Date Iván Case [address] [place] [address] [place] [address] PCP - General Family Medicine 10/23/20 Outsewer Relationship Specialty Start Date End Date Iván Case [address] [place] [address] [place] [address] PCP - General Family Medicine 10/23/20 Outsewer Relationship Specialty Start Date End Date Iván Case MD [address] [place] [address] [place] [address] PCP - General Family Medicine 10/23/20 Outsewer Relationship Specialty Start Date End Date Iván Case MD [address] [place] [address] [place] [address] PCP - General Family Medicine 10/23/20 Outsewer Relationship Specialty Start Date End Date Iván Case MD [address] [place] [address] [place] [address] PCP - General Family Medicine 10/23/20 Outsewer Relationship Specialty Start Date End Date Iván Case MD [address] [place] [address] [place] [address] PCP - General Family Medicine 10/23/20 Outsewer Relationship Specialty Start Date End Date Iván Case MD [address] [place] [address] [place] [address] PCP - General Family Medicine 10/23/20 Outsewer Relationship Specialty Start Date End Date Iván Case MD [address] [place] [address] [place] [address] PCP - General Family Medicine 10/23/20 Outsewer Relationship Specialty Start Date End Date Iván Case MD [address] [place] [address] [place] [address] PCP - General Family Medicine 10/23/20 Outsewer Relationship Specialty Start Date End Date Iván Case MD [address] [place] [address] [place] [address] PCP - General Family Medicine 10/23/20 Outsewer Relationship Specialty Start Date End Date Iván Case MD [address] [place] [address] [place] [address] PCP - General Family Medicine 10/23/20 Outsewer Relationship Specialty Start Date End Date Iván Case MD [address] [place] [address] [place] [address] PCP - General Family Medicine 10/23/20 Outsewer Relationship Specialty Start Date End Date Iván Case MD [address] [place] [address] [place] [address] PCP - General Family Medicine 10/23/20 Outsewer Relationship Specialty Start Date End Date Iván Case MD [address] [place] [address] [place] [address] PCP - General Family Medicine 10/23/20 Outsewer Relationship Specialty Start Date End Date Iván Case MD [address] [place] [address] [place] [address] PCP - General Family Medicine 10/23/20 Outsewer Relationship Specialty Start Date End Date Iván Case MD [address] [place] [address] [place] [address] PCP - General Family Medicine 10/23/20 Outsewer Relationship Specialty Start Date End Date Iván Case MD [address] [place] [address] [place] [address] PCP - General Family Medicine 10/23/20 Outsewer Relationship Specialty Start Date End Date Iván Case MD [address] [place] [address] [place] [address] PCP - General Family Medicine 10/23/20 Outsewer Relationship Specialty Start Date End Date Iván Case MD [address] [place] [address] [place] [address] PCP - General Family Medicine 10/23/20 Outsewer Relationship Specialty Start Date End Date Iván Case MD [address] [place] [address] [place] [address] PCP - General Family Medicine 10/23/20 Outsewer Relationship Specialty Start Date End Date Iván Case MD [address] [place] [address] [place] [address] PCP - General Family Medicine 10/23/20 Outsewer Relationship Specialty Start Date End Date Iván Case MD [address] [facility] [address] [place] [address] PCP - General Family Medicine 10/23/20 Outsewer Relationship Specialty Start Date End Date Iván Case MD [address] [facility] [address] [place], [place] [address] PCP - General Family Medicine 10/23/20 Outsewer Relationship Specialty Start Date End Date Iván Case MD [address] [facility] [address] [place] [id number] PCP - General 12/12/19 Scheduled Active and [...] sedation for opioid reversal - MUST 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 [employer] [facility]. provides no warranty or guarantee of the accuracy or completeness of information in this document.
[2025-03-24 04:07] LABS: GGTP 34 IU/L (0-65)
== END | disposition home or self-care (01) ==
LOC: MFPLAB 14:00
PROVIDERS: PCP Family Medicine; Referring Provider Family Medicine; Visit Provider Family Medicine
DX: E11.22 Type 2 diabetes mellitus with diabetic chronic kidney disease (principal); N18.30 Chronic kidney disease, stage 3 unspecified; R74.8 Abnormal levels of other serum enzymes; E55.9 Vitamin D deficiency, unspecified; E61.1 Iron deficiency
CPT/HCPCS: 36415; 80053; 80061; 82043; 82306; 82570; 82728; 82977; 83036; 83540; 83550; 84156; 85025

== ENCOUNTER → 2025-04-06 | Outpatient (CLI) | payer MEDICARE, OTHER, SELFPAY ==
[2020-04-24 10:56] VITALS: BMI 26.7
== END | disposition home or self-care (01) ==
PROVIDERS: PCP Family Medicine; Referring Provider Family Medicine; Visit Provider Family Medicine
DX: M84.40XA Pathological fracture, unspecified site, initial encounter for fracture (principal)
CPT/HCPCS: 70260; 73590; 74022

== ENCOUNTER → 2025-05-17 | Outpatient (CLI) | payer MEDICARE, OTHER, SELFPAY ==
[2020-04-24 10:56] VITALS: BMI 26.7
[2025-05-17 15:58] LABS: Hematocrit 39.4 % (40-54); Hemoglobin 12.8 g/dL (13.0-16.5); Immature Granulocytes Count 0.050 X10^3/uL (0.0-0.0); Mean Corp Hgb Conc 32.5 g/dL (32-36); Mean Corpuscular Volume 101.3 fL (80-94); Mean Platelet Vol. 10.0 fl (6.2-12.0); NRBC Flagged by Analyzer 0 % (0-5); Platelet Count 187 K/mm3 (150-450); RBC Distribution Width CV 13.1 % (11.6-14.6); RBC Distribution Width SD 48.3 fl (35.1-43.9); Red Blood Count 3.89 M/mm3 (4.6-6.2); White Blood Count 6.8 K/mm3 (4.4-11.0)
[2025-05-17 16:42] LABS: Magnesium 2.2 mg/dL (1.5-2.2)
[2025-05-17 16:46] LABS: AST(SGOT) 83 U/L (<=37); Alanine Aminotransfer ALT/SGPT 85 U/L (<=46); Albumin, Serum 3.9 g/dL (3.4-4.8); Alkaline Phosphatase 143 U/L (40-129); Anion Gap 11 (5-15); BUN 31 mg/dL (4-19); BUN/Creat Ratio 16.4 RATIO (10-20); Calcium,Total 9.4 mg/dL (7.6-11.0); Carbon Dioxide 19.6 mmol/L (21.0-32.0); Chloride 105 mmol/L (98-108); Globulin 2.8 g/dL (2.2-4.2); Glucose 161 mg/dL (70-99); Potassium 5.5 mmol/L (3.3-5.1)
== END | disposition home or self-care (01) ==
LOC: LAB 15:37
PROVIDERS: PCP Family Medicine; Referring Provider Nurse Practitioner Family; Visit Provider Nurse Practitioner Family
DX: E11.9 Type 2 diabetes mellitus without complications (principal); I10 Essential (primary) hypertension; R06.09 Other forms of dyspnea; E78.2 Mixed hyperlipidemia; Z95.1 Presence of aortocoronary bypass graft; Z95.818 Presence of other cardiac implants and grafts
CPT/HCPCS: 36415; 80053; 83735; 84439; 84443; 85025

== ENCOUNTER → 2025-06-25 | Outpatient (CLI) | payer MEDICARE, OTHER, SELFPAY ==
[2020-04-24 10:56] VITALS: BMI 26.7
--- NOTE | 2025-06-25 07:29 | ECHOD_ITS ---
Reason For Study Reason For Study: SOB, Fatigue Procedure This was a 2D Doppler, Color Flow transthoracic echocardiogram. Exam performed in department. Left Ventricle Normal LV size. The left ventricular ejection fraction is 70 %. Stage 1 diastolic dysfunction. No regional wall motion abnormalities noted. Right Ventricle Normal RV size. Normal systolic function. Atria Normal left atrium. Normal right atrium. Mitral Valve Normal mitral valve. Tricuspid Valve Normal tricuspid valve. Mild (1+) tricuspid valve insufficiency. Pulmonary artery systolic pressure is 37 mmHg. Aortic Valve Trisinus/trileaflet aortic valve. Mild focal aortic valve calcification. Pulmonic Valve Normal pulmonic valve. Great Vessels Normal aortic root. The pulmonary artery is normal size. Inferior vena cava collapse with respiration. Pericardium/Pleural No pericardial effusion. MMode/2D Measurements & Calculations LVIDd: 3.6 cm IVSd: 0.95 cm LVOT diam: 2.1 cm LVIDs: 2.0 cm LVPWd: 0.97 cm LVOT area: 3.6 cm2 RVDd: 3.3 cm FS: 43.6 % Ao root diam: 3.7 cm LAV(MOD-bp): 32.1 ml LVAd ap4: 23.3 cm2 LAV(MOD-bp) Indexed: 17.1 ml/m2 LVLd ap4: 8.3 cm LAV(MOD-sp2): 27.8 ml EDV(MOD-sp4): 53.2 ml LAV(MOD-sp4): 33.1 ml EDV(sp4-el): 55.2 ml LVAs ap4: 11.5 cm2 LVLs ap4: 7.3 cm ESV(MOD-sp4): 16.1 ml ESV(sp4-el): 15.3 ml EF(MOD-sp4): 69.7 % EF(sp4-el): 72.3 % LVAd ap2: 23.0 cm2 SV(MOD-sp4): 37.0 ml SV(MOD-sp2): 38.6 ml LVLd ap2: 8.2 cm SI(MOD-sp4): 19.7 ml/m2 SI(MOD-sp2): 20.5 ml/m2 EDV(MOD-sp2): 55.3 ml EDV(sp2-el): 55.0 ml LVAs ap2: 10.9 cm2 LVLs ap2: 7.3 cm ESV(MOD-sp2): 16.7 ml ESV(sp2-el): 13.7 ml EF(MOD-sp2): 69.8 % SV(sp4-el): 39.9 ml LA dimension(2D): 3.7 cm LA A4 area: 14.8 cm2 RA A4 area: 9.7 cm2 TAPSE: 1.7 cm Time Measurements MV dec time: 0.18 sec Doppler Measurements & Calculations MV E max mack: 84.4 cm/sec Lat Peak E' Mack: 12.6 cm/sec Med Peak E' Mack: 7.9 cm/sec MV A max mack: 130.6 cm/sec E/E' lat: 6.7 E/E' med: 10.7 MV E/A: 0.65 Ao V2 max: 141.4 cm/sec LV V1 max: 121.3 cm/sec MV dec slope: 462.1 cm/sec2 Ao max P.0 mmHg LV V1 max P.9 mmHg Ao V2 mean: 110.6 cm/sec LV V1 mean P.2 mmHg Ao mean P.3 mmHg LV V1 mean: 99.4 cm/sec Ao V2 VTI: 28.3 cm LV V1 VTI: 25.0 cm AV (velocity ratio): 0.88 MIGEL(I,D): 3.2 cm2 MIGEL(V,D): 3.1 cm2 SV(LVOT): 90.2 ml PA V2 max: 98.2 cm/sec TR max mack: 289.7 cm/sec TR max P.9 mmHg ECHO/Echo Complete Interpretation Summary The left ventricular ejection fraction is 70 %. Normal LV size. No regional wall motion abnormalities noted. Stage 1 diastolic dysfunction. Pulmonary artery systolic pressure is 37 mmHg. Ordering Physician: Iván Sexton Referring Physician: Iván Case Performed By: Tiffanie Rodriguez RDCS
--- OUTSIDE RECORDS SUMMARY | 2025-06-25 07:32 | XMS RPT_ITS | CCD ---
Author Organization [facility] [employer] Care Team Providers Care Scrubber Machine Tender Name Role Phone Neo Tian Primary Care Provider Iván Case Primary Care Provider Zohaib STAHL, Dale Barrientos Unavailable Humberto STAHL, Hiram Barrientos Unavailable Dr. Iván Case Primary Care Provider Dr. Abundio Contreras Emergency Provider Dr. Myesha Mujica Admit Provider Dr. Myesha Mujica Attending Provider Dr. Myesha Mujica Other Provider Dr. Jennifer Winchester Other Provider Dr. Luc Yarbrough Attending Provider Dr. Neo Tian Attending Provider Dr. Myesha Mujica Referring Provider Dr. Mariana Paulson Attending Provider Dr. Iván Case Primary Care Provider Dr. Iván Case Referring Provider Dr. Luc Yarbrough Attending Provider Dr. Luc Yarbrough Other Provider Dr. Iván Case Primary Care Provider Dr. Marisa Sabillon Attending Provider Dr. Luc Yarbrough Referring Provider Dr. Iván Case Primary Care Provider Dr. Iván Case Referring Provider [phone] John INSPECTOR BARREL, INSPECTOR BARRELLiC Karla Attending Provider Iván Case Primary Care Provider Iván Case MD Primary Care Provider TOMYGERMAINE GOEL Referring Unavailable IVÁN CASE Primary Care Unavailable SERJIO, SHERYL Y Referring Unavailable IVÁN CASE Primary Care Unavailable SERJIO, SHERYL Y Attending Unavailable IVÁN CASE Primary Care Unavailable TOMY, GERMAINE Referring Unavailable TOMY, GERMAINE Referring Unavailable IVÁN CSAE Primary Care Unavailable TOMY, GERMAINE Referring Unavailable [...] Y Referring Unavailable KARLA CASTRO Attending Unavailable SCHINNER, IVÁN E Primary Care Unavailable SERJIO, SHERYL Y Referring Unavailable KARLA CASTRO Attending Unavailable SCHINIVÁN PHAM Primary Care Unavailable SERJIO, SHERYL Y Referring Unavailable KARLA CASTRO Attending Unavailable SCHBRIEN, IVÁN E Primary Care Unavailable SERJIO, SHERYL Y Referring Unavailable SCHINNER, IVÁN E Primary Care Unavailable SERJIO, SHERYL Y Referring Unavailable SCHINNER, IVÁN E Primary Care Unavailable SERJIO, SHERYL Y Referring Unavailable KARLA CASTRO Attending Unavailable SCHINNER, IVÁN E Primary Care Unavailable SERJIO, SHERYL Y Referring Unavailable SCHINNER, IVÁN E Primary Care Unavailable SERJIO, SHERYL Y Referring Unavailable SCHINNER, IVÁN E Primary Care Unavailable SERJIO, SHERYL Y Referring Unavailable SCHINNER, IVÁN E Primary Care Unavailable SERJIO, SHERYL Y Referring Unavailable SCHINNER, IVÁN E Primary Care Unavailable SERJIO, SHERYL Y Referring Unavailable ELBA SAMANIEGO Attending Unavailable SHARIFA, IVÁN Whitley Primary Care Unavailable SERJIO, SHERYL Y Referring Unavailable ELBA SAMANIEGO Attending Unavailable GERMAINE BRAY Attending Unavailable SHARIFA, IVÁN Whitley Primary Care Unavailable GERMAINE BRAY Attending Unavailable GERMAINE BRAY Referring Unavailable SCHIVÁN TESFAYE Primary Care Unavailable GERMAINE BRAY Attending Unavailable SCHBRIEN, IVÁN Whitley Primary Care Unavailable KARLA SAUER Attending Unavailable IVÁN CASE Primary Care Unavailable KARLA SAUER Attending Unavailable GERMAINE BRAY Referring Unavailable IVÁN CASE Primary Care Unavailable KARLA SAUER Attending Unavailable IVÁN CASE Primary Care Unavailable Iván Case MD Primary Care Provider IBAN RAMIREZ Attending Unavailable JENNIFER SOLORZANO Referring Unavailable IVÁN CASE Primary Care Unavailable MOISES HOLGUIN Admitting Unavailable GARY DEUTSCH Consulting Unavailable MICKY MONTELONGO Consulting Unavailable IVÁN CASE Primary Care Unavailable Iván Case Attending Unavailable Iván Case Primary Care Unavailable Iván Case Referring Unavailable Carlie INSPECTOR BARREL, Iván Oh Referring Unavailable Carlie INSPECTOR BARREL, Iván Oh Attending Unavailable Iván Case Primary Care Unavailable Neo Tian Attending Unavailable Iván Case Primary Care Unavailable Iván Case Primary Care Unavailable Nilay Ellsworth Attending Unavailable Neo Tian Attending Unavailable Iván Case Primary Care Unavailable SchIván tesfaye Referring Unavailable Berger INSPECTOR BARRELElba Attending Unavailable Iván Case Primary Care Unavailable Nilay Ellsworth Attending Unavailable SchIván tesfaye Primary Care Unavailable SchIván tesfaye Primary Care Unavailable SchIván tesfaye Referring Unavailable Roof INSPECTOR BARREL, Iván Oh Attending Unavailable SchIván tesfaye Primary Care Unavailable SchIván tesfaye Referring Unavailable Berger INSPECTOR BARREL, Elba Attending Unavailable Iván Case Referring Unavailable Roof INSPECTOR BARREL, Iván Oh Attending Unavailable SchIván tesfaye Primary Care Unavailable SchIván tesfaye Attending Unavailable SchIván tesfaye Primary Care Unavailable SchIván tesfaye Primary Care Unavailable SchIván tesfaye Referring Unavailable Iván Case Attending Unavailable Iván Case Primary Care Unavailable Ab INSPECTOR BARREL, Elba Attending Unavailable Ab INSPECTOR BARREL, Elba Referring Unavailable SchIván tesfaye Attending Unavailable Iván Case Referring Unavailable SchIván tesfaye Primary Care Unavailable Iván Case Attending Unavailable Iván Case Referring Unavailable SchIván tesfaye Primary Care Unavailable Nilay Ellsworth Attending Unavailable Iván Case Primary Care Unavailable Carlie INSPECTOR BARREL, Iván Oh Referring Unavailable Carlie INSPECTOR BARREL, Iván Oh Attending Unavailable Iván Case Primary Care Unavailable Carlie INSPECTOR BARREL, Iván Oh Attending Unavailable Iván Case Referring Unavailable Iván Case Primary Care Unavailable Carlie INSPECTOR BARREL, Iván Oh Attending Unavailable Iván Case Primary Care Unavailable Iván Case Referring Unavailable Iván Case Primary Care Unavailable Neo Tian Attending Unavailable Neo Tian Attending Unavailable Iván Case Primary Care Unavailable Iván Case Primary Care Unavailable Nilay Ellsworth Attending Unavailable Iván Case Primary Care Unavailable Neo Tian Attending Unavailable Ab INSPECTOR BARREL, Elba Attending Unavailable Ab INSPECTOR BARRELElba Referring Unavailable Iván Case Primary Care Unavailable Iván Case Primary Care Unavailable Nilay Ellsworth Attending Unavailable Iván Case Primary Care Unavailable Jennifer Solorzano Attending Unavailable Ab INSPECTOR BARRELElba Attending Unavailable Iván Case Primary Care Unavailable SchIván tesfaye Referring Unavailable Medications Current Medications Medication Drug Class(es) [...] S/P CABG x 3 , CAD in [place] artery Take 1 tablet by mouth every [...] therapy completed) take 1 tablet by donell th once daily aspirin 81 MG tablet Take 81 mg by mouth daily 0 Active Comment on above: Take 81 mg by mouth once daily. Take by mouth. bisacodyl 10 mg rectal suppository (1 source) Stimulant Laxative Start: 12-15-19 take 10 mg rectal route once daily as needed for constipation 10 mg, Rectal, DAILY PRN, Constipation, Starting 12/15/19 at 1255 Second line therapy for constipation, [...] on above: Take 1 tablet by donell once daily. dapagliflozin 10 mg oral tablet [...] MRI docusate sodium 50 mg / sennosides, residential 8.6 mg oral tablet (2 sources) Start: [...] daily to BE TAKEN ALONG WITH 200 CA... (REFER TO PRESCRIPTION NOTES). 03/30/2023 01/17/2024 Discontinued (Course of therapy completed) End: 01-17-2024 take 1 tablet by mouth once daily lamoTRIgine ER (LAMICTAL XR) 250 mg 24 hr tablet Take by mouth once daily. 01/17/2024 Discontinued (Course of therapy completed) Comment on above: Take by mouth once d aily. take 1/2 tablet by m out once daily to BE TAKEN ALONG WITH 200 CA... (REFER TO PRESCRIPTION NOTES). lidocaine 0.04 mg/mg [...] Comment on above: Take 1 tablet by donlel th every afternoon. magnesium hydroxide 80 mg/ml [...] 10 mg by mouth every evening. sennosides, residential 8.6 mg oral tablet (2 sources) Start: [...] four hours as needed for pain tramadol [id number] Hiram Paul MD take 1-2 tablets by mouth three times daily as needed TRAMADOL HCL 50 MG TABS 1-2 tablet by [facility] three times a day as needed tramadol [id number] Gemini Razo LPN Completed/Discontinued Medications Medication Drug Class(es) Dates Sig (Normalized) Sig (Original) acetaminophen 325 mg / HYDROcodone bitartrate 5 mg oral tablet (7 sources) Opioid Agonist Start: 09-01-2021 End: 09-04-2021 take 1 tablet by mouth every eight hours Hydrocodone-Aceta minophen ([place]) 5-325 mg Tablet Discontinued 1 TABLET PO Q8H September 01, 2021 12:00am September 04, 2021 8:18am 20 ml albumin human, residential 250 mg/ml injection (1 source) Human Serum [...] outh 1 hour prior to procedure amylase 192254 unt / lipase 40123 unt / protease [id number] unt delayed release oral capsule (20 sources) Start: 08-02-20 End: 01-17-20 24 take 2 capsules by mouth three times daily at mealtime, then take 1 capsule by mouth before mealtime arxsdt-eittzhjf-nbtm ase (CREON 36) 36,000-114,000- 180,000 unit delayed release capsule Indications: Exocrine pancreatic insufficiency Take 2 caps by mouth 3 times daily with meals and 1 cap with each snack. Take 1st cap before meal starts and the 2nd cap skilled nursing through. 240 capsule 5 10/13/2023 01/17/2024 Discontinued (Course of therapy completed) Comment on above: Take 2 caps by mouth 3 times daily with meals and 1 cap with each snack. Take 1st cap before meal starts and the 2nd cap skilled nursing through. atorvastatin 80 mg oral tablet (20 sources) HMG-CoA Reductase Inhibitor Start: 12-16-19 End: 01-17-20 24 take 1 tablet by mouth once daily [...] bot h eyes twice a day dorzolamide [id number] Gemini Razo LPN Comment on above: Use [...] sources) Sodium-Glucose Cotransporter 2 Inhibitor Start: 08-06-20 End: 01-17-20 take 1 tablet by mouth once JARDIANCE [...] End: 02-21-2025 Start: 12-15-2019 15 g, Oral, [place] N, Low blood sugar, Starting Wed12/15/19 at [...] glucagon. Post-op 0.5 ml heparin sodium, porcine 12468 unt/ml prefilled syringe (2 sources) Unfractionated Heparin, [...] Initial Administration Rate/Additional IV Insulin Bolus protocol " > 90-120mg/dl - 1 unit/hr " 121-150mg/dl - 2 units/hr " 150-180mg/dl - 2.5 units/hr " 181- 240mg/dl - 3.5 units/hr + 4 unit bolus " 241-300mg/dl - 5 units/hr + 6 unit bolus " 301-360mg/dl - 6.5 units/hr + 8 unit bolus " > 360mg/dl - 8 units/hr + 10 [...] 50% IVP, recheck BG in 30 mins " When BG is > 80 and < 120mg/dl, restart drip at 50% of the previous rate, recheck in 30 minutes. " If BG > 120, restart drip at 75% of the previous rate, recheck in 30 minutes o 60-69mg/dl: BGT check in 30 minutes: 1. Stop infusion. " If previous BG > 100mg/dl give 25ml dextrose 50% IVP, recheck BG in 30 minutes. " When BG > 80 and < 120mg/dl, restart drip at 50% of previous rate, recheck BG in 30 minutes. " If BG > 120mg/dl or more restart drip at 75% of the previous rate, recheck BG in 30 minutes. o 70-89mg/dl: BGT check every 1 hour. " Has BG dropped > 10mg/dl from the last BG? Yes: Decrease rate by 50% " Has BG dropped from the last BG < 10mg/dl or = to 10mg/dl? Yes: decrease the rate by 0.5units/hr. If BG greater than or equal to the last test, maintain same rate. o 90-120mg/dl: BGT check in 1 hour. TITRATE DRIP RATE TO MAINTAIN THIS RANGE " Has BG increased > 10mg/dl from the last BG? Yes: increase rate by 0.5units/hr. Has BG dropped from the last BG by more than 10mg/dl? Yes: decrease the rate by 0.5 units/hr: No: Same rate. o 121-150mg/dl: BGT check in 1 hour " Has BG dropped 20-50mg/dl from last BG? Yes: Same rate. " Has BG increased from last BG by > 20mg/dl? Yes: increase rate by 1.5 units/hr. " Has BG dropped by more than 50mg/dl? Yes: decrease rate by 50%. " Is BG within 20mg/dl of the last test? Yes: increase rate by 1 unit/hr. o 151-180mg/dl: BGT check every 1 hour " Has BG dropped > 30mg/dl? Yes: same rate " Has BG dropped from last BG by < 30 mg/dl OR is BG higher than the last test? Yes: increase rate by 1.5 units/hr. o 181-240mg/dl: BGT check in 1 hour " Is BG 50-100mg/dl lower from the last BG? Yes: continue at the same rate. " Is BG lower than the last BG by >100mg/dl? Yes: decrease rate by 25%. " Is BG lower than the last BG by < 50mg/dl OR higher than the last test? Yes: bolus with 4 units insulin IV and increase rate by 2 units/hr. " Note: If BG 181-240mg/dl and has not dropped after 3 consecutive increases in insulin, then bolus with 4 units and double the insulin rate. o > 240mg/dl: BGT check in 30 minutes " Has BG dropped > 100mg/dl from last BG? Yes: same rate " Is BG lower than the last test by < 100mg/dl OR higher than the last test? Yes: IV Bolus with regular insulin as per "IV infusion Bolus" dosage scale and double insulin drip rate. o > 300mg/dl: Continue to follow the appropriate interventions based on BGT and call the Porcelain Enamel Installer. o Maximum insulin infusion drip rate may not exceed 30 units/hr; Insulin drip may NOT be discontinued unless approved by [employer]celain Enamel Installer. Discontinue all subcutaneous Insulin orders (if patient [...] ous, EVERY 8 HOURS PRN, Nausea, Starting Wed12/15/19 at 1255, Post-op Comment on above: take [...] Comment on above: Take 1 tablet by [facility] twice daily for 54 doses. Take 1 tablet by [facility] twice daily. take 1 tablet by [facility] twice a day polyethylene glycol 3350 88188 mg powder for oral solution (3 sources) [...] 20 ml/hr to SP(introducer) and WT on [place] Iza Catheter; once [place] discontinued run at 20 ml/hr through SP(introducer) [...] coronary artery disease; Translations: [Coronary arteriosclerosis in [place] artery] Onset: 0 12-15-2019 Chronic Coronary atherosclerosis and other heart disease (5 sources) History of coronary artery bypass grafting; Translations: [Presence of aortocoronary bypass graft] Onset: 0 12-16-2019 Episodic Diabetes mellitus with complications (1 source) Type 2 diabetes mellitus with diabetic chronic kidney disease; Translations: [Type 2 diabetes mellitus with diabetic chronic kidney disease] Onset: 5 Chronic Diabetes mellitus without complication (20 sources) Diabetes mellitus without complication; Translations: [Type 2 diabetes mellitus without complications] Onset: 3 05-13-2023 Chronic Disorders of lipid metabolism (9 sources) Hyperlipidemia; Translations: [Hyperlipidemia, unspecified] Onset: 5 Chronic E Codes: Fall (5 sources) Unspecified [...] pain; Translations: [Chest pain, unspecified] Episodic Other circulatory disease (1 source) Presence of other cardiac implants and grafts; Translations: [Presence of other cardiac implants and grafts] Onset: 5 Chronic Other connective tissue disease (7 sources) Paraparesis; Translations: [Other symptoms and signs involving the musculoskeletal system] Onset: 3 07-27-2023 Episodic Other gastrointestinal disorders (2 sources) Diarrhea; Translations: [Diarrhea, unspecified] 10-13-2023 Episodic Other lower respiratory disease (2 sources) Other forms of dyspnea; Translations: [Other forms of dyspnea] Onset: 5 Episodic Other nervous system disorders [...] without necrosis or infection] Onset: 4 Episodic Pathological fracture (1 source) Pathological fracture, unspecified site, initial encounter for fracture; Translations: [Pathological fracture, unspecified site, initial encounter for fracture] Onset: 5 Episodic Residual codes; unclassified (20 sources) Obstructive [...] disorders of digestive system] Onset: 06-10-2023 Episodic Diabetes mellitus without complication (4 sources) [...] Translations: [Multiple lacerations] Onset: 09-16-2023 Episodic Other injuries and conditions due to external causes (1 source) Encounter for examination and observation following other accident; Translations: [Encounter for examination and observation following other accident] Onset: 02-27-2025 Episodic Other nervous system disorders (20 sources) [...] Test Name Value Interpretation Reference Range Facility CBC W/Diff, Automatedon 05-07 Absolute Lymph 1.53 X10 3/uL Normal 0.83-4.51 [facility] Comment on above: Performed By: #### L 500.4050, L501.9520, L100.0100, L506.0400, L501.5200 #### [facility] [address] [place], [place], [id number] Absolute Neut 4.3 X10 3/uL Normal 2.0-7.7 [facility] Comment on above: Performed By: #### L 500.4050, L501.9520, L100.0100, L506.0400, L501.5200 #### [facility] [address] [place], [address] Basophils/100 WBC (Bld) 0.4 % Normal 0-1 [facility] Comment on above: Performed By: #### L 500.4050, L501.9520, L100.0100, L506.0400, L501.5200 #### [facility] [address] [place], [address] Eosinophils/100 WBC (Bld) 3.2 % Normal 0-5 [facility] Comment on above: Performed By: #### L 500.4050, L501.9520, L100.0100, L506.0400, L501.5200 #### [facility] [address] [place], [address] Erythrocyte distribution width (RBC) [Ratio] 13.1 % Normal 11.6-14.6 [facility] Comment on above: Performed By: #### L 500.4050, L501.9520, L100.0100, L506.0400, L501.5200 #### [facility] [address] [place], [address] Hematocrit (Bld) [Volume fraction] 39.4 % Low 40-54 [facility] Comment on above: Performed By: #### L 500.4050, L501.9520, L100.0100, L506.0400, L501.5200 #### [facility] [address] [place], [address] Hemoglobin (Bld) [Mass/Vol] 12.8 g/dL Low 13.0-16.5 [facility] Comment on above: Performed By: #### L 500.4050, L501.9520, L100.0100, L506.0400, L501.5200 #### [facility] [address] [place], [address] IG% 0.700 Normal 0.0-0.9 [facility] Comment on above: Result Comment: IG% - Immature Granulocytes (promyelocytes, myelocytes and metamyelocytes) > 1% indicates that a LEFT SHIFT is Present. Performed By: #### L 500.4050, L501.9520, L100.0100, L506.0400, L501.5200 #### [facility] [address] [place], [address] Lymphocytes/100 WBC (Bld) 22.4 % Normal 19-41 [facility] Comment on above: Performed By: #### L 500.4050, L501.9520, L100.0100, L506.0400, L501.5200 #### [facility] [address] [place], [address] MCH (RBC) [Entitic mass] 32.9 pg High 27.0-32.0 [facility] Comment on above: Performed By: #### L 500.4050, L501.9520, L100.0100, L506.0400, L501.5200 #### [facility] [address] [place], [address] MCHC (RBC) [Mass/Vol] 32.5 g/dL Normal 32-36 [facility] Comment on above: Performed By: #### L 500.4050, L501.9520, L100.0100, L506.0400, L501.5200 #### [facility] [address] [place], [address] MCV (RBC) [Entitic vol] 101.3 fL High 80-94 [facility] Comment on above: Performed By: #### L 500.4050, L501.9520, L100.0100, L506.0400, L501.5200 #### [facility] [address] [place], [address] Monocytes/100 WBC (Bld) 10.7 % High 0-10 [facility] Comment on above: Performed By: #### L 500.4050, L501.9520, L100.0100, L506.0400, L501.5200 #### [facility] [address] [place], [address] Neutrophils/100 WBC (Bld) 62.6 % Normal 47-70 [facility] Comment on above: Performed By: #### L 500.4050, L501.9520, L100.0100, L506.0400, L501.5200 #### [facility] [address] [place], [address] Nucleated RBC (Bld) [#/Vol] 0 10*3/uL Normal 0-5 [facility] Comment on above: Performed By: #### L 500.4050, L501.9520, L100.0100, L506.0400, L501.5200 #### [facility] [address] [place], [address] Platelet mean volume (Bld) [Entitic vol] 10.0 fL Normal 6.2-12.0 [facility] Comment on above: Performed By: #### L 500.4050, L501.9520, L100.0100, L506.0400, L501.5200 #### [facility] [address] [place], [address] Platelets (Bld) [#/Vol] 187 10*3/uL Normal 150-450 [facility] Comment on above: Performed By: #### L 500.4050, L501.9520, L100.0100, L506.0400, L501.5200 #### [facility] [address] [place], [address] RBC (Bld) [#/Vol] 3.89 10*6/uL Low 4.6-6.2 [facility] Comment on above: Performed By: #### L 500.4050, L501.9520, L100.0100, L506.0400, L501.5200 #### [facility] [address] [place], [address] RDW SD 48.3 fl High 35.1-43.9 [facility] Comment on above: Performed By: #### L 500.4050, L501.9520, L100.0100, L506.0400, L501.5200 #### [facility] [address] [place], [address] WBC (Bld) [#/Vol] 6.8 10*3/uL Normal 4.4-11.0 [facility] Comment on above: Performed By: #### L 500.4050, L501.9520, L100.0100, L506.0400, L501.5200 #### [facility] [address] [place], [address] Cardiology Visit Reporton Cardiology Visit Report [facility] [address] [place] [address] OFFICE VISIT Date of Service: 05/17/25 MR#: [id number] Acct: [id number] Name: DOUGLAS CALLAWAY JrJoann Rep #: [id number] : 1955 Provider: NERI bateman Age/Sex: 70/M [place] [facility] [place] Signed HPI HPI History of Present Illness Details: This is a 70-year-old man who presents to the office today [...] has remained stable. He acknowledges generalized weakness. He denies headache or vision changes. 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 Is patient in pain?: No Allergies No Known Allergies Allergy (Verified 05/17/25 14:54) Medications ???Medication ???Instructions ???Recorded ???Confirmed ???Type dorzolamide 22.3 mg-timolol 6.8 1 drp ophthalmic (eye) BID 0 05/17/25 History mg/mL eye drops (Cosopt) alendronate 70 mg tablet 70 mg PO QWEEK 09/17/22 05/17/25 H istory primidone 50 mg tablet 50 mg PO DAILY 09/24/23 05/17/25 H istory ferrous sulfate 325 mg (65 mg 325 mg PO DAILY 02/14/24 05/17/25 History iron) tablet (Roberto Carlos-Time) mecobalamin (vitamin B12) 1,000 1,000 mcg PO DAILY 02/14/24 History mcg chewable tablet rosuvastatin 10 mg tablet 10 mg PO DAILY #90 tabs 07/05/24 0 05/17/25 Rx aspirin 81 mg tablet,delayed 81 mg PO DAILY 08/14/24 05/17/25 H istory release (Adult Low Dose Aspirin) calcium 600 mg (as 1 cap PO DAILY 08/14/24 05/17/25 H istory carbonate)-vitamin D3 12.5 mcg (500 unit) capsule metformin 1,000 mg tablet 1,000 mg PO BID 02/20/25 05/17/25 History losartan 50 mg tablet 50 mg PO DAILY #90 tabs 03/15/25 0 05/17/25 Rx lamotrigine 200 mg tablet 200 mg PO DAILY 90 days #90 tabs 0 03/20/25 05/17/25 Rx doxepin 10 mg capsule 10 mg PO QHS PRN sleep #30 caps 05/17/25 Rx duloxetine 60 mg capsule,delayed 60 mg PO DAILY 90 days #90 caps 05/17/25 Rx release lamotrigine 100 mg tablet 50 mg (1/2 x 100 mg) PO QDAY 30 05/17/25 Rx days #15 tabs empagliflozin 10 mg tablet 10 mg PO QDAY 05/01/25 05/17/25 Hi story (Jardiance) ondansetron 4 mg disintegrating 4 mg PO Q8 PRN 05/01/25 05/17/25 H istory tablet amlodipine 10 mg tablet 10 mg PO DAILY #30 tabs 05/17/25 0 05/17/25 Rx cholecalciferol (vitamin D3) 25 25 mcg PO QDAY 05/17/25 05/17/25 H istory mcg (1,000 unit) tablet Ejection fraction %: 60 Have you fallen in the past year?: Yes (Last fall in February 2025) [facility] Medical History Exocrine pancreatic insufficiency Gastritis Bile leak CPAP (continuous positive airway pressure) dependence Acute cholecystitis due to biliary calculus Common bile duct dilatation Irritable bowel Syncope Irregular heartbeat Acute gallstone pancreatitis Wears glasses Cancer Diabetes Gout Hepatitis Gastric reflux Former smoker History of echocardiogram History of stress test Hypertension Cardiology follow-up encounter Gastroparesis Squamous cell carcinoma Atherosc (more content not included)... Normal [facility] Comprehensive Metabolic Prof ilon 05-17-2025 Albumin [Mass/Vol] 3.9 g/dL Normal 3.4-4.8 [facility] Comment on above: Performed By: #### L 500.4050, L501.9520, L100.0100, L506.0400, L501.5200 #### [facility] [address] [place], [address] Albumin/Globulin [Mass ratio] 1.4 {ratio} Normal 0.9-2.4 [facility] Comment on above: Performed By: #### L 500.4050, L501.9520, L100.0100, L506.0400, L501.5200 #### [facility] [address] [place], [address] ALK PHOS 143 U/L High 40-129 [facility] Comment on above: Performed By: #### L 500.4050, L501.9520, L100.0100, L506.0400, L501.5200 #### [facility] [address] [place], [address] ALT [Catalytic activity/Vol] 85 U/L High <=46 [facility] Comment on above: Performed By: #### L 500.4050, L501.9520, L100.0100, L506.0400, L501.5200 #### [facility] [address] [place], [address] AST [Catalytic activity/Vol] 83 U/L High <=37 [facility] Comment on above: Result Comment: Hemo lysis present, Results??could be affected. ?? Performed By: #### L 500.4050, L501.9520, L100.0100, L506.0400, L501.5200 #### [facility] [address] [place], [address] Bilirubin [Mass/Vol] 0.33 mg/dL Normal 0.00-1.30 [facility] Comment on above: Performed By: #### L 500.4050, L501.9520, L100.0100, L506.0400, L501.5200 #### [facility] [address] [place], [address] BUN/CRE 16.4 RATIO Normal 10-20 [facility] Comment on above: Performed By: #### L 500.4050, L501.9520, L100.0100, L506.0400, L501.5200 #### [facility] [address] [place], [address] Calcium [Mass/Vol] 9.4 mg/dL Normal 7.6-11.0 [facility] Comment on above: Performed By: #### L 500.4050, L501.9520, L100.0100, L506.0400, L501.5200 #### [facility] [address] [place], [address] Chloride [Moles/Vol] 105 mmol/L Normal 98-108 [facility] Comment on above: Performed By: #### L 500.4050, L501.9520, L100.0100, L506.0400, L501.5200 #### [facility] [address] [place], [address] CO2 [Moles/Vol] 19.6 mmol/L Low 21.0-32.0 [facility] Comment on above: Performed By: #### L 500.4050, L501.9520, L100.0100, L506.0400, L501.5200 #### [facility] [address] [place], [address] Creatinine [Mass/Vol] 1.91 mg/dL High 0.70-1.20 [facility] Comment on above: Performed By: #### L 500.4050, L501.9520, L100.0100, L506.0400, L501.5200 #### [facility] [address] [place], [address] GAP 11 Normal 5-15 [facility] Comment on above: Performed By: #### L 500.4050, L501.9520, L100.0100, L506.0400, L501.5200 #### [facility] [address] [place], [address] GFR/1.73 sq M.predicted among non-blacks MDRD (S/P/Bld) [Vol rate/Area] 37 mL/min/{1.73_m2} Low >60 [facility] Comment on above: Result Comment: mL/m in/1.73m2 CKD-EPI Creatinine Equation (2020) Performed By: #### L 500.4050, L501.9520, L100.0100, L506.0400, L501.5200 #### [facility] [address] [place], [address] Globulin (S) [Mass/Vol] 2.8 g/dL Normal 2.2-4.2 [facility] Comment on above: Performed By: #### L 500.4050, L501.9520, L100.0100, L506.0400, L501.5200 #### [facility] [address] [place], [address] Glucose [Mass/Vol] 161 mg/dL High 70-99 [facility] Comment on above: Performed By: #### L 500.4050, L501.9520, L100.0100, L506.0400, L501.5200 #### [facility] [address] [place], [address] Potassium [Moles/Vol] 5.5 mmol/L High 3.3-5.1 [facility] Comment on above: Result Comment: Hemo lysis present, Results??could be affected. ?? Performed By: #### L 500.4050, L501.9520, L100.0100, L506.0400, L501.5200 #### [facility] [address] [place], [address] Sodium [Moles/Vol] 136 mmol/L Normal 133-145 [facility] Comment on above: Performed By: #### L 500.4050, L501.9520, L100.0100, L506.0400, L501.5200 #### [facility] [address] [place], [address] T PROT 6.7 g/dL Normal 5.9-8.4 [facility] Comment on above: Performed By: #### L 500.4050, L501.9520, L100.0100, L506.0400, L501.5200 #### [facility] [address] [place], [address] Urea nitrogen [Mass/Vol] 31 mg/dL High 4-19 [facility] Comment on above: Performed By: #### L 500.4050, L501.9520, L100.0100, L506.0400, L501.5200 #### [facility] [address] [place], [address] Magnesiumon 05-17-2025 Magnesium [Mass/Vol] 2.2 mg/dL Normal 1.5-2.2 [facility] Comment on above: Performed By: #### L 500.4050, L501.9520, L100.0100, L506.0400, L501.5200 #### [facility] [address] [place], [address] T4 Free Directon 05-17-2025 T4 FREE DIRECT 0.90 ng/dL Normal 0.76-1.46 [facility] Comment on above: Performed By: #### L 500.4050, L501.9520, L100.0100, L506.0400, L501.5200 ####[facility] [address] [place], [address] Thyroid Stim Hormone (TSH)on 05-17-2025 TSH 6.160 uIU/mL High 0.300-4.200 [facility] Comment on above: Performed By: #### L 500.4050, L501.9520, L100.0100, L506.0400, L501.5200 ####[facility] [address] [place], [address] MR/BMS.BPon 05-08-2025 MR/BMS.BP [address], [address] [place] [address] OFFICE VISIT Date of Service: 05/08/25 MR#: [id number] Acct: [id number] Name: DOUGLAS CALLAWAY JrJoann Rep #: [id number] : 1955 Provider: Dr. Nilay Hamlin se, DO Age/Sex: 70/M Location: [facility].BP Status: Signed Intake Vital Signs 03/26/25 13:05 05/01/25 09:49 05/08/25 14:01 Height 5 ft 8 in 5 ft 8 in 5 ft 8 in Weight: 163 lb 8 oz 166 lb BMI 24.8 25.2 BP 171/77 H 181/82 H 131/79 H Blood Pressure Location Lt brachial Lt brachial Lt brachial Position Sitting Sitting Sitting Respiration 14 18 16 Pulse 66 65 101 H Pulse Source Monitor Monitor Monitor Temp 96.6 F L Temperature Source Temporal Artery Pulse Oximetry (%) 97 Oxygen Delivery Method room air BP Intake Visit Reasons: 6 wk FU Accompanied by: Self Allergies No Known Allergies Allergy (Verified 09/02/25 14:03) Medications ???Medication ???Instructions ???Recorded ???Confirmed ???Type dorzolamide 22.3 mg-timolol 6.8 1 drp ophthalmic (eye) BID 0 05/08/25 History mg/mL eye drops (Cosopt) alendronate 70 mg tablet 70 mg PO QWEEK 09/17/22 05/08/25 H istory primidone 50 mg tablet 50 mg PO DAILY 09/24/23 05/08/25 H istory ferrous sulfate 325 mg (65 mg 325 mg PO DAILY 02/14/24 05/08/25 History iron) tablet (Roberto Carlos-Time) mecobalamin (vitamin B12) 1,000 1,000 mcg PO DAILY 02/14/24 History mcg chewable tablet rosuvastatin 10 mg tablet 10 mg PO DAILY #90 tabs 07/05/24 0 05/08/25 Rx aspirin 81 mg tablet,delayed 81 mg PO DAILY 08/14/24 05/08/25 H istory release (Adult Low Dose Aspirin) calcium 600 mg (as 1 cap PO DAILY 08/14/24 05/08/25 H istory carbonate)-vitamin D3 12.5 mcg (500 unit) capsule metformin 1,000 mg tablet 1,000 mg PO BID 02/20/25 05/08/25 History losartan 50 mg tablet 50 mg PO DAILY #90 tabs 03/15/25 0 05/08/25 Rx lamotrigine 200 mg tablet 200 mg PO DAILY 90 days #90 tabs 0 03/20/25 05/08/25 Rx doxepin 10 mg capsule 10 mg PO QHS PRN sleep #30 caps 05/08/25 Rx duloxetine 60 mg capsule,delayed 60 mg PO DAILY 90 days #90 caps 05/08/25 Rx release lamotrigine 100 mg tablet 50 mg (1/2 x 100 mg) PO QDAY 30 05/08/25 Rx days #15 tabs empagliflozin 10 mg tablet 10 mg PO QDAY 05/01/25 05/08/25 Hi story (Jardiance) ondansetron 4 mg disintegrating 4 mg PO Q8 PRN 05/01/25 05/08/25 H istory tablet Have you fallen in the past year?: Yes (February 15, 2025 no injury) [facility] Medical History Exocrine pancreatic insufficiency Gastritis Bile leak CPAP (continuous positive airway pressure) dependence Acute cholecystitis due to biliary calculus Common bile duct dilatation Irritable bowel Syncope Irregular heartbeat Acute gallstone pancreatitis Wears glasses Cancer Diabetes Gout Hepatitis Gastric reflux Former smoker History of echocardiogram History of stress test Hypertension Cardiology follow-up encounter Gastroparesis Squamous cell carcinoma Atherosclerosis of coronary artery of [place] heart without angina pectoris Hepatitis A Elevated [...] by: patient HPI: Douglas Callaway is a 70 year old male who presents today for follow up evaluation. Patient reports that he has been doing "ok." Elaborates that psychiatrically has been feeling well but medically is feeling "very tired." Describes (more content not included)... Normal [facility] Pulmonary Visit Reporton Pulmonary Visit Report [facility] [place] [address] [place], [place] [id number] OFFICE VISIT Date of Service: 05/01/25 MR#: [id number] Acct: [id number] Name: DOUGLAS CALLAWAY Jr. Rep #: [id number] : 1955 Provider: NERI Berger Age/Sex: 70/M Location: [facility] Status: Signed Assessment and Plan Assessment and Plan (1) CABRERA (obstructive sleep apnea): Status: Chronic Comment: AHI 60.3, AutoPap Plan: He is using and benefiting from Pap therapy. No indication for titration study at this time. Contact the office for any new or worsening symptoms in the meantime. Follow-up in 6 months. (2) Insomnia: Status: Chronic Qualifiers: Insomnia type: unspecified Qualified Code(s): G47.00 - Insomnia, unspecified Plan: He states this has been ongoing for approximately 20 years. He notes that it is actually improved with the use of AutoPap. He does have a prescription to help manage this that is ordered by his psychiatrist. I suggested that he may benefit from seeing a Board certified sleep specialist, the patient reports that it is actually improved and he would prefer to stay with our practice and his psychiatrist. (3) Bipolar II disorder: Status: Chronic Plan: Complicates exam, plan, care and prognosis. Managing his obstructive sleep apnea should have benefit in helping to control his bipolar 2 disorder. Defer medication adjustments to his psychiatrist. Plan Details Additional Comments: This note was generated with [employer] dictation software. It may contain incorrect words, spelling, and punctuation that were not noted in checking the note before signing. Follow Up: 6 Months HPI 3 M FU Chief Complaint: new pap mask HPI Comments Details: This patient presents to the office today for follow-up of his obstructive sleep apnea. He is ambulatory with the use of a cane and on room air. He has not recently been seen in the ED or urgent care for respiratory illness. He has not required any antibiotics or prednisone for any breathing problems. He has no difficulty with shortness of breath. He denies any cough. He denies sputum production or hemoptysis. He denies any wheezing, chest tightness, chest pain or palpitations. He also denies any fever, chills or body aches. He is not waking feeling rested. He has switched to a nasal interface. He has learned to sleep with his mouth shut". He is no longer experiencing difficulty with dry mouth. He is pleased with his response to PAP therapy. He is not nodding off to sleep unintentionally. He is not having excessive nocturia. Compliance report for the past 30 days shows 97% compliance with average use of 6 hours and 54 minutes per night. Current setting is AutoPap 5-15 cmH2O with a residual AHI 3.6 events per hour. Average pressures being utilized are 7.7 to 12.7 cm of water. Leaks do not appear to be problematic. 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 DME Vendor: Valeria Accompanied by: Self Is patient in pain?: No Allergies No Known Allergies Allergy (Verified 03/26/25 13:08) Medications ???Medication ???Instructions ???Recorded ???Confirmed ???Type dorzolamide 22.3 mg-timolol 6.8 1 drp ophthalmic (eye) BID 0 05/01/25 History mg/mL eye drops (Cosopt) alendronate 70 mg tablet 70 mg PO QWEEK 09/17/22 05/01/25 H istory primidone 50 mg tablet 50 mg PO DAILY 09/24/23 05/01/25 H istory ferrous sulfate 325 mg (65 mg 325 mg PO DAILY 02/14/24 05/01/25 History iron) tablet (Roberto Carlos-Time) mecobalamin (vitamin B12) 1,000 1,000 mcg PO DAILY 02/14/24 History mcg chewable tablet rosuvastatin 10 mg tablet 10 mg PO DAILY #90 tabs 07/05/24 0 05/01/25 Rx aspirin 81 mg tablet,delayed 81 mg PO DAILY 08/14/24 05/01/25 H istory release (Adult Low Dose Aspirin) calcium 600 mg (as 1 cap PO DAILY 08/14/24 05/01/25 H istory carbonate)-vitamin D3 12.5 mcg (500 unit) capsule metformin 1,000 mg tablet 1,000 mg PO BID 02/20/25 05/01/25 History losartan 50 mg tablet 50 mg PO DAILY #90 tabs 03/15/25 0 05/01/25 Rx lamotrigine 200 mg tablet 200 mg PO DAILY 90 days #90 tabs 0 03/20/25 05/01/25 Rx doxepin 10 mg capsule 10 mg PO QHS PRN sleep #30 caps 05/01/25 Rx duloxetine 60 mg capsule,delayed 60 mg PO DAILY 90 days #90 caps 05/01/25 Rx release lamotrigine 100 mg tablet 50 mg (1/2 x 100 mg) PO Q (more content not included)... Normal [facility] Acute Abdomen Inc [place] Acute Abdomen Inc Chest [facility] Imaging Services [address] [place] [id number] Acute Abdomen Inc Chest MR#: [id number] Acct: [id number] Name: DOUGLAS CALLAWAY Jr. Rep #: [id number] : 1955 M 70 From: Myesha Alfredo MD PCP: Dr. Iván Case MD Status: [facility] CLI Study: Acute Abdomen Inc Chest Date of Exam: 04/06/25 Exam# [id number] Ordering Dr: Iván Case MD EXAM: XR Abdomen, 1 View and XR Chest, 1 View CLINICAL INDICATION: PATHOLOGICAL FRACTURE TECHNIQUE: Frontal view of the chest and abdomen/pelvis. COMPARISON: No relevant prior studies available. FINDINGS: LUNGS AND PLEURAL SPACES: Unremarkable. No consolidation. No pneumothorax. HEART: Unremarkable. No cardiomegaly. MEDIASTINUM: Unremarkable. Normal mediastinal contour. INTRAPERITONEAL SPACE: No free air. GASTROINTESTINAL TRACT: Fecal retention in the colon consistent with constipation. No dilation. BONES/JOINTS: Unremarkable. No acute fracture. RAD/Acute Abdomen Inc Chest IMPRESSION: Fecal retention in the colon consistent with constipation. Reading Location: [id number] CC: Dr. Iván Case MD Lead Security Officer: Signed Normal [facility] Skull min 4 Viewson 04-06-20 Sk[facility] min 4 Views [facility] [address] [place], [place] [address] Skull min 4 Views MR#: [id number] Acct: [id number] Name: DOUGLAS CALLAWAY Jr. Rep #: [id number] : 1955 M 70 From: Kj Reyes PCP: Dr. Iván Case MD Status: REG CLI Study: Skull min 4 Views Date of Exam: 04/06/25 Exam# [id number] Ordering Dr: Iván Case MD PROCEDURE: SKULL MIN 4 VIEWS 04/06/2025 REASON FOR EXAM: FRACTURE TECHNIQUE: Five view skull series COMPARISON: Head CT of 02/20/2025. RAD/Skull min 4 Views IMPRESSION: The visualized paranasal sinuses and mastoid air cells appear clear. No fracture or dislocation is evident. At least mild degenerative changes of the visualized portions of the cervical spine are also seen. Reading Location: [place] [address] CC: Dr. Iván Case MD Lead Security Officer: Signed Normal [facility] Tibia Fibula 2 Viewson 04-[address] [facility] Imaging Services [address] [place] [address] Tibia Fibula 2 Views MR#: [id number] Acct: [id number] Name: DOUGLAS CALLAWAY Jr. Rep #: [id number] : 1955 M 70 From: Myesha Alfredo MD PCP: Dr. Iván Case MD Status: REG CLI Study: Tibia Fibula 2 Views Date of Exam: 04/06/25 Exam# [id number] Ordering Dr: Iván Case MD EXAM: XR Right Tibia and Fibula, 2 Views CLINICAL INDICATION: PATHOLOGIC FRACTURE TECHNIQUE: Frontal and lateral views of the right tibia and fibula. COMPARISON: No relevant prior studies available. FINDINGS: BONES/JOINTS: See below. SOFT TISSUES: Soft tissue swelling without acute fracture. No radiopaque foreign body. RAD/Tibia Fibula 2 Views IMPRESSION: 1. Soft tissue swelling without acute fracture. 2. If symptoms persist, further evaluation with CT is recommended. Reading Location: [facility] CC: Dr. Iván Case MD Lead Security Officer: Signed Normal [facility] Tibia Fibula [address] [facility] Imaging Services [address] [place], [place] [address] Tibia Fibula 2 Views MR#: [id number] Acct: [id number] Name: DOUGLAS CALLAWAY JrJoann Rep #: [id number] : 1955 M 70 From: Myesha Alfredo MD PCP: Dr. Iván Case MD Status: REG CLI Study: Tibia Fibula 2 Views Date of Exam: 04/06/25 Exam# [id number] Ordering Dr: Iván Case MD EXAM: XR Left Tibia and Fibula, 2 Views CLINICAL INDICATION: PATHGOLOGICAL FRACTURE TECHNIQUE: Frontal and lateral views of the left tibia and fibula. COMPARISON: No relevant prior studies available. FINDINGS: BONES/JOINTS: See below. SOFT TISSUES: Soft tissue swelling without acute fracture. No radiopaque foreign body. RAD/Tibia Fibula 2 Views IMPRESSION: 1. Soft tissue swelling without acute fracture. 2. If symptoms persist, further evaluation with CT is recommended. Reading Location: [facility] CC: Dr. Iván Case MD Lead Security Officer: Signed Normal [facility] MR/BMS.BPon 03-26-2025 MR/BMS.BP [address], [address] [place] [id number] OFFICE VISIT Date of Service: 03/26/25 MR#: [id number] Acct: [id number] Name: DOUGLAS CALLAWAY JrJoann Rep #: [id number] : 1955 Provider: Dr. Nilay Hamlin se DO Age/Sex: 70/M Location: BMS.BP Status: Signed Intake Vital Signs 12/25/24 13:03 02/20/25 11:09 03/26/25 13:05 Height 5 ft 8 in 5 ft 8 in 5 ft 8 in Weight: 163 lb 8 oz BMI 24.8 BP 171/77 H Blood Pressure Location Lt brachial Position Sitting Respiration 14 Pulse 66 Pulse Source Monitor BP Intake Visit Reasons: 3 M FU Allergies No Known Allergies Allergy (Verified 03/26/25 13:08) Medications ???Medication ???Instructions ???Recorded ???Confirmed ???Type dorzolamide 22.3 mg-timolol 6.8 1 drp ophthalmic (eye) BID 0 03/26/25 History mg/mL eye drops (Cosopt) alendronate 70 mg tablet 70 mg PO QWEEK 09/17/22 03/26/25 H istory primidone 50 mg tablet 50 mg PO DAILY 09/24/23 03/26/25 H istory ferrous sulfate 325 mg (65 mg 325 mg PO DAILY 02/14/24 03/26/25 History iron) tablet (Roberto Carlos-Time) mecobalamin (vitamin B12) 1,000 1,000 mcg PO DAILY 02/14/24 History mcg chewable tablet rosuvastatin 10 mg tablet 10 mg PO DAILY #90 tabs 07/05/24 0 03/26/25 Rx aspirin 81 mg tablet,delayed 81 mg PO DAILY 08/14/24 03/26/25 H istory release (Adult Low Dose Aspirin) calcium 600 mg (as 1 cap PO DAILY 08/14/24 03/26/25 H istory carbonate)-vitamin D3 12.5 mcg (500 unit) capsule metformin 1,000 mg tablet 1,000 mg PO BID 02/20/25 03/26/25 History losartan 50 mg tablet 50 mg PO DAILY #90 tabs 03/15/25 0 03/26/25 Rx lamotrigine 200 mg tablet 200 mg PO DAILY 90 days #90 tabs 0 03/20/25 03/26/25 Rx doxepin 10 mg capsule 10 mg PO QHS PRN sleep #30 caps 03/26/25 Rx duloxetine 60 mg capsule,delayed 60 mg PO DAILY 90 days #90 caps 03/26/25 Rx release lamotrigine 100 mg tablet 50 mg (1/2 x 100 mg) PO QDAY 30 03/26/25 Rx days #15 tabs Have you fallen in the past [...] cell carcinoma Atherosclerosis of coronary artery of [place] heart without angina pectoris Hepatitis A Elevated [...] by: patient HPI: Douglas Callaway is a 70 year old male who presents today for follow up evaluation. 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 He was taken to the emergency room following this as he was just outside the hospital. He was transferred to [facility] for suspicion of a epidural or subdural hematoma. Per self report, when he arrived he said that things had resolved. He did spend the night in the hospital following this and was discharged the next day. Was overall "fine" during the encounter but did feel somewhat depressed after the whole episode. Has been sleeping in more in recent past. Does at times have difficulty getting to sleep. Has been tolerating h (more content not included)... Normal [facility] L501.5101on 03-24-2025 GGTP 34 IU/L Normal 0-65 [facility] Comment on above: Order Comment: ZULEYMA Whitley ADD GGTP TO BLOOD DRAWN 03/21/25 PER Result Comment: Perf ormed at: [facility] [address] [id number] Water Plant Operator: Alfonzo Martin PhD, Phone: [phone] Performed By: #### L 501.9985, L503.6030, L501.0900, L503.6550, L500.4100, L501.5101, L502.0250, L500.4050, L100.0100, L506.1001 ####[facility] [address] [place], [place], [address] CBC W/Diff, Automatedon 03-06 Absolute Lymph 1.36 X10 3/uL Normal 0.83-4.51 [facility] Comment on above: Performed By: #### L 501.9985, L503.6030, L501.0900, L503.6550, L500.4100, L501.5101, L502.0250, L500.4050, L100.0100, L506.1001 ####[facility] [address] [place], [place], [address] Absolute Neut 4.8 X10 3/uL Normal 2.0-7.7 [facility] Comment on above: Performed By: #### L 501.9985, L503.6030, L501.0900, L503.6550, L500.4100, L501.5101, L502.0250, L500.4050, L100.0100, L506.1001 ####[facility] [address] [place], [address] Basophils/100 WBC (Bld) 0.4 % Normal 0-1 [facility] Comment on above: Performed By: #### L 501.9985, L503.6030, L501.0900, L503.6550, L500.4100, L501.5101, L502.0250, L500.4050, L100.0100, L506.1001 ####[facility] [address] [place], [address] Eosinophils/100 WBC (Bld) 2.9 % Normal 0-5 [facility] Comment on above: Performed By: #### L 501.9985, L503.6030, L501.0900, L503.6550, L500.4100, L501.5101, L502.0250, L500.4050, L100.0100, L506.1001 ####[facility] [address] [place], [address] Erythrocyte distribution width (RBC) [Ratio] 13.3 % Normal 11.6-14.6 [facility] Comment on above: Performed By: #### L 501.9985, L503.6030, L501.0900, L503.6550, L500.4100, L501.5101, L502.0250, L500.4050, L100.0100, L506.1001 ####[facility] [address] [place], [address] Hematocrit (Bld) [Volume fraction] 40.1 % Normal 40-54 [facility] Comment on above: Performed By: #### L 501.9985, L503.6030, L501.0900, L503.6550, L500.4100, L501.5101, L502.0250, L500.4050, L100.0100, L506.1001 ####[facility] [address] [place], [address] Hemoglobin (Bld) [Mass/Vol] 13.0 g/dL Normal 13.0-16.5 [facility] Comment on above: Performed By: #### L 501.9985, L503.6030, L501.0900, L503.6550, L500.4100, L501.5101, L502.0250, L500.4050, L100.0100, L506.1001 ####[facility] [address] [place], [address] IG% 0.400 Normal 0.0-0.9 [facility] Comment on above: Result Comment: IG% - Immature Granulocytes (promyelocytes, myelocytes and metamyelocytes) > 1% indicates that a LEFT SHIFT is Present. Performed By: #### L 501.9985, L503.6030, L501.0900, L503.6550, L500.4100, L501.5101, L502.0250, L500.4050, L100.0100, L506.1001 ####[facility] [address] [place], [address] Lymphocytes/100 WBC (Bld) 18.9 % Low 19-41 [facility] Comment on above: Performed By: #### L 501.9985, L503.6030, L501.0900, L503.6550, L500.4100, L501.5101, L502.0250, L500.4050, L100.0100, L506.1001 ####[facility] [address] [place], [address] MCH (RBC) [Entitic mass] 32.3 pg High 27.0-32.0 [facility] Comment on above: Performed By: #### L 501.9985, L503.6030, L501.0900, L503.6550, L500.4100, L501.5101, L502.0250, L500.4050, L100.0100, L506.1001 ####[facility] [address] [place], [address] MCHC (RBC) [Mass/Vol] 32.4 g/dL Normal 32-36 [facility] Comment on above: Performed By: #### L 501.9985, L503.6030, L501.0900, L503.6550, L500.4100, L501.5101, L502.0250, L500.4050, L100.0100, L506.1001 ####[facility] [address] [place], [address] MCV (RBC) [Entitic vol] 99.8 fL High 80-94 [facility] Comment on above: Performed By: #### L 501.9985, L503.6030, L501.0900, L503.6550, L500.4100, L501.5101, L502.0250, L500.4050, L100.0100, L506.1001 ####[facility] [address] [facility] [place], [address] Monocytes/100 WBC (Bld) 9.9 % Normal 0-10 [facility] Comment on above: Performed By: #### L 501.9985, L503.6030, L501.0900, L503.6550, L500.4100, L501.5101, L502.0250, L500.4050, L100.0100, L506.1001 ####[facility] [address] [place], [address] Neutrophils/100 WBC (Bld) 67.5 % Normal 47-70 [facility] Comment on above: Performed By: #### L 501.9985, L503.6030, L501.0900, L503.6550, L500.4100, L501.5101, L502.0250, L500.4050, L100.0100, L506.1001 ####[facility] [address] [place], [address] Nucleated RBC (Bld) [#/Vol] 0 10*3/uL Normal 0-5 [facility] Comment on above: Performed By: #### L 501.9985, L503.6030, L501.0900, L503.6550, L500.4100, L501.5101, L502.0250, L500.4050, L100.0100, L506.1001 ####[facility] [address] [place], [address] Platelet mean volume (Bld) [Entitic vol] 10.3 fL Normal 6.2-12.0 [facility] Comment on above: Performed By: #### L 501.9985, L503.6030, L501.0900, L503.6550, L500.4100, L501.5101, L502.0250, L500.4050, L100.0100, L506.1001 ####[facility] [address] [place], [address] Platelets (Bld) [#/Vol] 194 10*3/uL Normal 150-450 [facility] Comment on above: Performed By: #### L 501.9985, L503.6030, L501.0900, L503.6550, L500.4100, L501.5101, L502.0250, L500.4050, L100.0100, L506.1001 ####[facility] [address] [place], [address] RBC (Bld) [#/Vol] 4.02 10*6/uL Low 4.6-6.2 [facility] Comment on above: Performed By: #### L 501.9985, L503.6030, L501.0900, L503.6550, L500.4100, L501.5101, L502.0250, L500.4050, L100.0100, L506.1001 ####[facility] [address] [place], [place], [phone] RDW SD 48.8 fl High 35.1-43.9 [facility] Comment on above: Performed By: #### L 501.9985, L503.6030, L501.0900, L503.6550, L500.4100, L501.5101, L502.0250, L500.4050, L100.0100, L506.1001 ####[facility] [address] [place], [place], [phone] WBC (Bld) [#/Vol] 7.2 10*3/uL Normal 4.4-11.0 [facility] Comment on above: Performed By: #### L 501.9985, L503.6030, L501.0900, L503.6550, L500.4100, L501.5101, L502.0250, L500.4050, L100.0100, L506.1001 ####[facility] [address] [place], [place], [phone] Comprehensive Metabolic Prof [facility] 03-21-2025 Albumin [Mass/Vol] 4.1 g/dL Normal 3.4-4.8 [facility] Comment on above: Order Comment: CMP Performed By: #### L 501.9985, L503.6030, L501.0900, L503.6550, L500.4100, L501.5101, L502.0250, L500.4050, L100.0100, L506.1001 ####[facility] [address] [place], [place], [phone] Albumin/Globulin [Mass ratio] 1.5 {ratio} Normal 0.9-2.4 [facility] Comment on above: Order Comment: CMP Performed By: #### L 501.9985, L503.6030, L501.0900, L503.6550, L500.4100, L501.5101, L502.0250, L500.4050, L100.0100, L506.1001 ####[facility] [address] [place], [place], [phone] ALK PHOS 236 U/L High 40-129 [facility] Comment on above: Order Comment: CMP Performed By: #### L 501.9985, L503.6030, L501.0900, L503.6550, L500.4100, L501.5101, L502.0250, L500.4050, L100.0100, L506.1001 ####[facility] [address] [place], [address] ALT [Catalytic activity/Vol] 35 U/L Normal <=46 [facility] Comment on above: Order Comment: CMP Performed By: #### L 501.9985, L503.6030, L501.0900, L503.6550, L500.4100, L501.5101, L502.0250, L500.4050, L100.0100, L506.1001 ####[facility] [address] [facility] [address] [place], [place], [phone] AST [Catalytic activity/Vol] 39 U/L High <=37 [facility] Comment on above: Order Comment: CMP Performed By: #### L 501.9985, L503.6030, L501.0900, L503.6550, L500.4100, L501.5101, L502.0250, L500.4050, L100.0100, L506.1001 ####[facility] [address] [facility] [address] [place], [place], [phone] Bilirubin [Mass/Vol] 0.43 mg/dL Normal 0.00-1.30 [facility] Comment on above: Order Comment: CMP Performed By: #### L 501.9985, L503.6030, L501.0900, L503.6550, L500.4100, L501.5101, L502.0250, L500.4050, L100.0100, L506.1001 ####[facility] [address] [place], [address] BUN/CRE 19.4 RATIO Normal 10-20 [facility] Comment on above: Order Comment: CMP Performed By: #### L 501.9985, L503.6030, L501.0900, L503.6550, L500.4100, L501.5101, L502.0250, L500.4050, L100.0100, L506.1001 ####[facility] [address] [place], [address] Calcium [Mass/Vol] 9.4 mg/dL Normal 7.6-11.0 [facility] Comment on above: Order Comment: CMP Performed By: #### L 501.9985, L503.6030, L501.0900, L503.6550, L500.4100, L501.5101, L502.0250, L500.4050, L100.0100, L506.1001 ####[facility] [address] [place], [address] Chloride [Moles/Vol] 104 mmol/L Normal 98-108 [facility] Comment on above: Order Comment: CMP Performed By: #### L 501.9985, L503.6030, L501.0900, L503.6550, L500.4100, L501.5101, L502.0250, L500.4050, L100.0100, L506.1001 ####[facility] [address] [place], [address] CO2 [Moles/Vol] 25.0 mmol/L Normal 21.0-32.0 [facility] Comment on above: Order Comment: CMP Performed By: #### L 501.9985, L503.6030, L501.0900, L503.6550, L500.4100, L501.5101, L502.0250, L500.4050, L100.0100, L506.1001 ####[facility] [address] [place], [address] Creatinine [Mass/Vol] 1.64 mg/dL High 0.70-1.20 [facility] Comment on above: Order Comment: CMP Performed By: #### L 501.9985, L503.6030, L501.0900, L503.6550, L500.4100, L501.5101, L502.0250, L500.4050, L100.0100, L506.1001 ####[facility] [address] [place], [place], [phone](333) GAP 11 Normal 5-15 [facility] Comment on above: Order Comment: CMP Performed By: #### L 501.9985, L503.6030, L501.0900, L503.6550, L500.4100, L501.5101, L502.0250, L500.4050, L100.0100, L506.1001 ####[facility] [address] [place], [place], [phone](674) GFR/1.73 sq M.predicted among non-blacks MDRD (S/P/Bld) [Vol rate/Area] 44 mL/min/{1.73_m2} Low >60 [facility] Comment on above: Order Comment: CMP Result Comment: mL/m in/1.73m2 CKD-EPI Creatinine Equation (2020) Performed By: #### L 501.9985, L503.6030, L501.0900, L503.6550, L500.4100, L501.5101, L502.0250, L500.4050, L100.0100, L506.1001 ####[facility] [address] [place], [place], [phone]) Globulin (S) [Mass/Vol] 2.7 g/dL Normal 2.2-4.2 [facility] Comment on above: Order Comment: CMP Performed By: #### L 501.9985, L503.6030, L501.0900, L503.6550, L500.4100, L501.5101, L502.0250, L500.4050, L100.0100, L506.1001 ####[facility] [address] [place], [address] Glucose [Mass/Vol] 179 mg/dL High 70-99 [facility] Comment on above: Order Comment: CMP Performed By: #### L 501.9985, L503.6030, L501.0900, L503.6550, L500.4100, L501.5101, L502.0250, L500.4050, L100.0100, L506.1001 ####[facility] [address] [place], [address] Potassium [Moles/Vol] 4.3 mmol/L Normal 3.3-5.1 [facility] Comment on above: Order Comment: CMP Performed By: #### L 501.9985, L503.6030, L501.0900, L503.6550, L500.4100, L501.5101, L502.0250, L500.4050, L100.0100, L506.1001 ####[facility] [address] [place], [address] Sodium [Moles/Vol] 141 mmol/L Normal 133-145 [facility] Comment on above: Order Comment: CMP Performed By: #### L 501.9985, L503.6030, L501.0900, L503.6550, L500.4100, L501.5101, L502.0250, L500.4050, L100.0100, L506.1001 ####[facility] [address] [place], [address] T PROT 6.8 g/dL Normal 5.9-8.4 [facility] Comment on above: Order Comment: CMP Performed By: #### L 501.9985, L503.6030, L501.0900, L503.6550, L500.4100, L501.5101, L502.0250, L500.4050, L100.0100, L506.1001 ####[facility] [address] [place], [address] Urea nitrogen [Mass/Vol] 32 mg/dL High 4-19 [facility] Comment on above: Order Comment: CMP Performed By: #### L 501.9985, L503.6030, L501.0900, L503.6550, L500.4100, L501.5101, L502.0250, L500.4050, L100.0100, L506.1001 ####[facility] [address] [facility]. [place], [place], [address] Ferritinon 03-21-2025 Ferritin [Mass/Vol] 86 ng/mL Normal 37-417 [facility] Comment on above: Performed By: #### L 501.9985, L503.6030, L501.0900, L503.6550, L500.4100, L501.5101, L502.0250, L500.4050, L100.0100, L506.1001 ####[facility] [address] [facility]. [place], [place], [phone] Hemoglobin A1con 03-21-2025 HbA1c (Bld) [Mass fraction] 5.8 % High <=5.6 [facility] Comment on above: Result Comment: Norm al < 5.7 % Prediabetic 5.7 - 6.4 % Diabetic >or= 6.5 % Please note range changes. Performed By: #### L 501.9985, L503.6030, L501.0900, L503.6550, L500.4100, L501.5101, L502.0250, L500.4050, L100.0100, L506.1001 ####[facility] [address] [place], [address] Iron+Iron Binding Capacityon 03-21-2025 Iron [Mass/Vol] 88 ug/dL Normal 65-175 [facility] Comment on above: Order Comment: CMP Performed By: #### L 501.9985, L503.6030, L501.0900, L503.6550, L500.4100, L501.5101, L502.0250, L500.4050, L100.0100, L506.1001 ####[facility] [address] [place], [address] IRON SATURATION 28.0 Normal 9-55 [facility] Comment on above: Order Comment: CMP Performed By: #### L 501.9985, L503.6030, L501.0900, L503.6550, L500.4100, L501.5101, L502.0250, L500.4050, L100.0100, L506.1001 ####[facility] [address] [place], [address] TIBC 312 ug/dL Normal 250-450 [facility] Comment on above: Order Comment: CMP Performed By: #### L 501.9985, L503.6030, L501.0900, L503.6550, L500.4100, L501.5101, L502.0250, L500.4050, L100.0100, L506.1001 ####[facility] [address] [place], [address] UIBC 224 ug/dL Low 228-428 [facility] Comment on above: Order Comment: CMP Performed By: #### L 501.9985, L503.6030, L501.0900, L503.6550, L500.4100, L501.5101, L502.0250, L500.4050, L100.0100, L506.1001 ####[facility] [address] [place], [place], [address] Lipid Profileon 03-21-2025 CHOL:HDL 2.42 Normal [facility] Comment on above: Performed By: #### L 501.9985, L503.6030, L501.0900, L503.6550, L500.4100, L501.5101, L502.0250, L500.4050, L100.0100, L506.1001 ####[facility] [address] [place], [place], [phone] Cholesterol [Mass/Vol] 140 mg/dL Normal <=200 [facility] Comment on above: Result Comment: Chol esterol level, Desirable <200 mg/dL Borderline high cholesterol 200-239 mg/dL High cholesterol >=240 mg/dL Recommendations of the NCEP Adult Treatment Panel for the following risk-cutoff thresholds for the [place] population. Performed By: #### L 501.9985, L503.6030, L501.0900, L503.6550, L500.4100, L501.5101, L502.0250, L500.4050, L100.0100, L506.1001 ####[facility] [address] [place], [place], [address] Cholesterol in HDL [Mass/Vol] 58 mg/dL Normal [facility] Comment on above: Result Comment: Yoana onal Cholesterol Education Program (NCEP) guidelines: <40 mg/dL: Low HDL-cholesterol (major risk factor for CHD) >= 60 mg/dL: High HDL-cholesterol (negative risk factor for CHD) HDL-cholesterol is affected by a number of factors, e.g. smoking, exercise, hormones, sex and age. Performed By: #### L 501.9985, L503.6030, L501.0900, L503.6550, L500.4100, L501.5101, L502.0250, L500.4050, L100.0100, L506.1001 ####[facility] [address] [place], [address] Cholesterol in LDL [Mass/Vol] 48 mg/dL Normal [facility] Comment on above: Result Comment: Bord mefkpo=767-952 mg/dL Higher Lgea=862 mg/dL or greater Performed By: #### L 501.9985, L503.6030, L501.0900, L503.6550, L500.4100, L501.5101, L502.0250, L500.4050, L100.0100, L506.1001 ####[facility] [address] [place], [address] Cholesterol in VLDL [Mass/Vol] 34 mg/dL Normal 5-40 [facility] Comment on above: Performed By: #### L 501.9985, L503.6030, L501.0900, L503.6550, L500.4100, L501.5101, L502.0250, L500.4050, L100.0100, L506.1001 ####[facility] [address] [place], [address] Triglyceride [Mass/Vol] 170 mg/dL Normal [facility] Comment on above: Result Comment: The drugs N-Acetylcysteine and Metamizole may falsely depress this assay. Normal range: <150 mg/dL Borderline High: 150-199 mg/dL High: 200-499 mg/dL Very High: >500 mg/dL Performed By: #### L 501.9985, L503.6030, L501.0900, L503.6550, L500.4100, L501.5101, L502.0250, L500.4050, L100.0100, L506.1001 ####[facility] [address] [place], [address] Microalb:Creat Ratio,Random URon 03-21-2025 MALB:CREAT 2364.2 mg/g CRE High <30 mg/g CRE [facility] Comment on above: Performed By: #### L 501.9985, L503.6030, L501.0900, L503.6550, L500.4100, L501.5101, L502.0250, L500.4050, L100.0100, L506.1001 ####[facility] [address] [place], [address] MICROALBUMIN,UR 2577.0 mg/L Normal <20 mg/L [facility] Comment on above: Performed By: #### L 501.9985, L503.6030, L501.0900, L503.6550, L500.4100, L501.5101, L502.0250, L500.4050, L100.0100, L506.1001 ####[facility] [address] [place], [address] Protein+Creatinine Ratio,Uri neon 03-21-2025 PROT:CRE RATIO 3587 mg/g CRE High 0-200 [facility] Comment on above: Performed By: #### L 501.9985, L503.6030, L501.0900, L503.6550, L500.4100, L501.5101, L502.0250, L500.4050, L100.0100, L506.1001 ####[facility] [address] [place], [address] Protein (U) [Mass/Vol] 391.0 mg/dL High 0.0-12.0 [facility] Comment on above: Performed By: #### L 501.9985, L503.6030, L501.0900, L503.6550, L500.4100, L501.5101, L502.0250, L500.4050, L100.0100, L506.1001 ####[facility] [address] [place], [address] Vitamin D,25 Hydroxyon 03-21 Vitamin D 25-OH 28.9 ng/mL Low 30-100 [facility] Comment on above: Result Comment: Ladi min D Status Deficiency: <20 ng/mL (50nmol/L) Insufficiency: 20-30 ng/mL (50-75 nmol/L) Sufficiency: 30-100 ng/mL (75-250 nmol/L) Toxicity: >100 ng/mL (>250 nmol/L) Performed By: #### L 501.9985, L503.6030, L501.0900, L503.6550, L500.4100, L501.5101, L502.0250, L500.4050, L100.0100, L506.1001 ####[facility] [address] [place], [address] [id number] 02-21-2025 [id number] Care Managment Initi al Assessment Date: 02/21/2025 Patient Name: Douglas Callaway : 1955 Patient Information Source of Information: Patient Cognition/Language: WFL - Within Functional Limits Permission given to speak with patient territory representative/caregiver as indicated: Yes Confirmation of Payer [...] when pt is discharged. Will follow. Normal [facility] BASIC METABOLIC PANELon 06- Anion gap [Moles/Vol] 7 mmol/L Normal 3-13 [facility] Comment on above: Performed By: #### L AB15 ####Senior Operator: YVROSE PAYAN ([id number])[facility])[address] [place] [address] Calcium [Mass/Vol] 8.4 mg/dL Low 8.8-10.0 [facility] Comment on above: Performed By: #### L AB15 ####Senior Operator: YVROSE PAYAN ([id number])[facility] ([facility])[address] [place] [address] Chloride [Moles/Vol] 107 mmol/L Normal 98-107 [facility] Comment on above: Performed By: #### L AB15 ####Senior Operator: YVROSE PAYAN ([id number])[facility] ([facility])[address] [place] [address] [place] CO2 [Moles/Vol] 24 mmol/L Normal 23-31 [facility] Comment on above: Performed By: #### L AB15 ####Senior Operator: YVROSE PAYAN ([id number])[facility])[address] [place] [address] [place] Creatinine [Mass/Vol] 1.68 mg/dL High 0.72-1.25 [facility] Comment on above: Performed By: #### L AB15 ####Senior Operator: YVROSE [id number])[facility] ([address] GLOMERULAR FILTRATION RATE ML/MIN/1.73 SQ M.PREDICTED 43.4 mL/min/1.73m*2 Low >60.0 [facility] Comment on above: Result Comment: Calc ulation based on the Chronic Kidney Disease Epidemiology Collaboration (CKD-EPI) equation refit without adjustment for race Performed By: #### L AB15 ####Senior Operator: YVROSE PAYAN ([id number])[facility])[address] [place] [address] Glucose [Mass/Vol] 95 mg/dL Normal 82-115 [facility] Comment on above: Performed By: #### L AB15 ####Senior Operator: YVROSE PAYAN ([id number])[address] Potassium [Moles/Vol] 4.0 mmol/L Normal 3.5-5.1 [facility] Comment on above: Result Comment: Plas ma potassium values may be up to 0.5 mmol/L lower than serum values. Performed By: #### L AB15 ####Senior Operator: YVROSE PAYAN ([id number])[address] Sodium [Moles/Vol] 138 mmol/L Normal 136-145 [facility] Comment on above: Performed By: #### L AB15 ####Senior Operator: YVROSE PAYAN ([id number])[address] Urea nitrogen [Mass/Vol] 25 mg/dL High 9-23 [facility] Comment on above: Performed By: #### L AB15 ####Senior Operator: YVROSE PAYAN ([id number])[address] Basic metabolic 1998 panelon 02-21-2025 Anion gap [Moles/Vol] 7 mmol/L 3 - 13 mmol/L [facility] Calcium [Mass/Vol] 8.4 mg/dL Low 8.8 - 10. 0 mg/dL [facility] Chloride [Moles/Vol] 107 mmol/L 98 - 107 mmol/L [facility] CO2 [Moles/Vol] 24 mmol/L 23 - 31 mmol/L [facility] Creatinine [Mass/Vol] 1.68 mg/dL High 0.72 - 1.25 mg/dL [facility] GFR/1.73 sq M.predicted (S/P/Bld) [Vol rate/Area] 43.4 mL/min Low - PINF [facility] Comment on above: Calculation based on the Chronic Kidney Disease Epidemiology Collaboration (CKD-EPI) equation refit without adjustment for race Glucose [Mass/Vol] 95 mg/dL 82 - 115 mg/dL [facility] Interpretation and review of laboratory results Abnormal [facility] Potassium [Moles/Vol] 4 mmol/L 3.5 - 5.1 mmol/L [facility] Comment on above: Plasma potassium barbara ues may be up to 0.5 mmol/L lower than serum values. Sodium [Moles/Vol] 138 mmol/L 136 - 145 mmol/L [facility] Urea nitrogen [Mass/Vol] 25 mg/dL High 9 - 23 mg/dL [facility] CBC W Auto Differential pane l (Bld)on 02-21-2025 Basophils (Bld) [#/Vol] 0 10*3/uL 0.0 - 0.2 10*3/uL [facility] Basophils/100 WBC (Bld) 0.3 % 0.0 - 2.0 % [facility] Eosinophils (Bld) [#/Vol] 0.1 10*3/uL 0.0 - 0.5 10*3/uL [facility] Eosinophils/100 WBC (Bld) 1.5 % 0.0 - 6.0 % [facility] Erythrocyte distribution width (RBC) [Ratio] 13.1 % 11.5 - 15.0 % [facility] Hematocrit (Bld) [Volume fraction] 37 % Low 40.0 - 52.0 % [facility] Hemoglobin (Bld) [Mass/Vol] 12.1 g/dL Low 13.0 - 18.0 g/dL [facility] Immature granulocytes (Bld) [#/Vol] 0 10*3/uL NINF - 0.1 10*3/uL [facility] Immature granulocytes/100 WBC (Bld) 0.6 % 0.0 - 2.0 % [facility] Interpretation and review of laboratory results Abnormal [facility] [employer] Lymphocytes (Bld) [#/Vol] 1.5 10*3/uL 1.0 - 4.3 10*3/uL [facility] [employer] Lymphocytes/100 WBC (Bld) 21.3 % 15.0 - 45.0 % [facility] [employer] MCH (RBC) [Entitic mass] 32.4 pg 26.0 - 34.0 pg [facility] [employer] MCHC (RBC) [Mass/Vol] 32.7 % 30.5 - 36.0 % [facility] [employer] MCV (RBC) [Entitic vol] 99.2 fL High 77.0 - 99.0 fL [facility] [employer] Monocytes (Bld) [#/Vol] 0.7 10*3/uL 0.0 - 0.9 10*3/uL [facility] [employer] Monocytes/100 WBC (Bld) 10.6 % 5.0 - 13.0 % [facility] [employer] Neutrophils (Bld) [#/Vol] 4.5 10*3/uL 1.8 - 7.5 10*3/uL [facility] [employer] Neutrophils/100 WBC (Bld) 65.7 % 38.0 - 82.0 % [facility] [employer] Nucleated RBC/100 WBC (Bld) [Ratio] 0 % [facility] [employer] Platelet mean volume (Bld) [Entitic vol] 9.9 fL 9.0 - 12.7 fL [facility] [employer] Platelets (Bld) [#/Vol] 184 10*3/uL 140 - 440 10*3/uL [facility] RBC (Bld) [#/Vol] 3.73 10*6/uL Low 4.40 - 5.9 0 10*6/uL [facility] [employer] WBC (Bld) [#/Vol] 6.9 10*3/uL 3.6 - 10.7 10*3/uL [facility] CBC WITH AUTO DIFFERENTIALon 02-21-2025 Basophils (Bld) [#/Vol] 0.0 10*3/uL Normal 0.0-0.2 [facility] Comment on above: Performed By: #### [id number] #### Senior Operator: YVROSE PAYAN ([id number]) [facility] ([address] Basophils/100 WBC (Bld) 0.3 % Normal 0.0-2.0 [facility] Comment on above: Performed By: #### L [id number] #### Senior Operator: YVROSE PAYAN ([id number]) [facility]) [address] [place] [address] Eosinophils (Bld) [#/Vol] 0.1 10*3/uL Normal 0.0-0.5 [facility] Comment on above: Performed By: #### L [id number] #### Senior Operator: YVROSE PAYAN ([phone]) [facility]) [address] [place] [address] Eosinophils/100 WBC (Bld) 1.5 % Normal 0.0-6.0 [facility] Comment on above: Performed By: #### L [id number] #### Senior Operator: YVROSE PAYAN ([id number]) [facility]) [address] [place] [address] Erythrocyte distribution width (RBC) [Ratio] 13.1 % Normal 11.5-15.0 [facility] Comment on above: Performed By: #### L [id number] #### Senior Operator: YVROSE PAYAN ([id number]) [facility]) [address] [place] [address] Hematocrit (Bld) [Volume fraction] 37.0 % Low 40.0-52.0 [facility] Comment on above: Performed By: #### L [id number] #### Senior Operator: YVROSE PAYAN ([id number]) [facility]) [address] [place] [address] Hemoglobin (Bld) [Mass/Vol] 12.1 g/dL Low 13.0-18.0 [facility] Comment on above: Performed By: #### L [id number] #### Senior Operator: YVROSE PAYAN ([phone]) [facility]) [address] [place] [address] IMMATURE GRANS % 0.6 % Normal 0.0-2.0 [facility] Comment on above: Performed By: #### L [id number] #### Senior Operator: YVROSE PAYAN ([phone]) [facility]) [address] [place] [address] IMMATURE GRANS ABSOLUTE 0.0 10*3/uL Normal <0.1 [facility] Comment on above: Performed By: #### L [id number] #### Senior Operator: YVROSE PAYAN ([phone]) [facility]) [address] [place] [address] Lymphocytes (Bld) [#/Vol] 1.5 10*3/uL Normal 1.0-4.3 [facility] Comment on above: Performed By: #### L [id number] #### Senior Operator: YVROSE PAYAN ([id number]) [facility]) [address] [place] [address] Lymphocytes/100 WBC (Bld) 21.3 % Normal 15.0-45.0 [facility] Comment on above: Performed By: #### L [id number] #### Senior Operator: YVROSE PAYAN ([id number]) [facility]) [address] [place] [address] MCH (RBC) [Entitic mass] 32.4 pg Normal 26.0-34.0 [facility] Comment on above: Performed By: #### L [id number] #### Senior Operator: YVROSE PAYAN ([phone]) [facility]) [address] [place] [address] MCHC 32.7 % Normal 30.5-36.0 [facility] Comment on above: Performed By: #### L [id number] #### Senior Operator: YVROSE PAYAN ([id number]) [facility]) [address] [place] [address] MCV (RBC) [Entitic vol] 99.2 fL High 77.0-99.0 [facility] Comment on above: Performed By: #### L [id number] #### Senior Operator: YVROSE PAYAN ([id number]) [facility] [address] [place] [address] [place] Monocytes (Bld) [#/Vol] 0.7 10*3/uL Normal 0.0-0.9 [facility] Comment on above: Performed By: #### L [id number] #### Senior Operator: YVROSE PAYAN ([id number]) [facility] ([facility]) [address] [place] [address] Monocytes/100 WBC (Bld) 10.6 % Normal 5.0-13.0 [facility] Comment on above: Performed By: #### L [id number] #### Senior Operator: YVROSE PAYAN ([id number]) [facility] ([facility]) [address] [place] [address] NEUTROPHILS ABSOLUTE 4.5 10*3/uL Normal 1.8-7.5 [facility] Comment on above: Performed By: #### L [id number] #### Senior Operator: YVROSE PAYAN ([id number]) [facility] ([facility]) [address] [place] [address] Neutrophils/100 WBC (Bld) 65.7 % Normal 38.0-82.0 [facility] Comment on above: Performed By: #### L [id number] #### Senior Operator: YVROSE PAYAN ([phone]) [facility] ([facility]) [address] [place] [address] NRBC 0.0 /100 WBCs Normal 0.0-2.0 [facility] Comment on above: Performed By: #### L [id number] #### Senior Operator: YVROSE PAYAN ([id number]) [facility] ([facility]) [address] [place] [address] Platelet mean volume (Bld) [Entitic vol] 9.9 fL Normal 9.0-12.7 [facility] Comment on above: Performed By: #### L [id number] #### Senior Operator: YVROSE PAYAN ([id number]) [facility] ([facility]) [address] [place] [address] [place] Platelets (Bld) [#/Vol] 184 10*3/uL Normal 140-440 [facility] Comment on above: Performed By: #### L [id number] #### Senior Operator: YVROSE PAYAN ([id number]) [facility]) [address] [place] [address] RBC (Bld) [#/Vol] 3.73 10*6/uL Low 4.40-5.90 [facility] Comment on above: Performed By: #### L [id number] #### Senior Operator: YVROSE PAYAN ([id number]) [facility] ([facility]) [address] [place] [address] WBC (Bld) [#/Vol] 6.9 10*3/uL Normal 3.6-10.7 [facility] Comment on above: Performed By: #### L [id number] #### Senior Operator: YVROSE PAYAN ([id number]) [facility] ([facility]) [address] [place] [address] CT CERVICAL SPINE WO IV CONT [facility] 02-21-2025 CT CERVICAL SPINE WO IV CONTRAST Patient Name: DOUGLAS CALLAWAY : 1955 Exam Date/Time: 02/20/2025 17:07 Procedure: CT CERVICAL SPINE WO IV CONTRAST Ordering Provider: RAMIREZ NATHAN Reason For Exam: fu [facility] fall from standing CT CERVICAL [...] Electronically Signed Date/Time: 02/21/2025 4:59 AM EDT [facility] CT Cervical spine WO shelia ton 02-21-2025 No fracture or dislocation of the cervical spine. Mild to moderate diffuse degenerative changes of the cervical spine. Report Dictated on Electronically Signed By: Dale Islas MD Electronically Signed Date/Time: 02/21/2025 4:59 AM EDT [facility] Patient Name: DOUGLAS SIMON : 1955 Exam Date/Time: 02/20/2025 17:07 Procedure: CT CERVICAL SPINE WO IV CONTRAST Ordering Provider: RAMIREZ NATHAN Reason For Exam: fu sp [facility] fall from standing CT CERVICAL SPINE [...] severe bony central canal stenosis is present. [facility] Dale Islas MD - 02/21/2025 Patient Name: DOUGLAS CALLAWAY : 1955 Exam Date/Time: 02/20/2025 17:07 Procedure: CT CERVICAL SPINE WO IV CONTRAST Ordering Provider: RAMIREZ NATHAN Reason For Exam: [facility] fall from standing CT CERVICAL [...] Electronically Signed Date/Time: 02/21/2025 4:59 AM EDT [facility] [employer] CT Cervical spine WO contras tOrdered By: Dale Islas on 02-21-2025 [facility] [employer] Consulton 02-21-2025 Consult [facility] Geriatric Medicine Inpatient Consult Service [...] it doesn't support him at times and "gives way". Feels balance is worse when he closes [...] spasms Advance Care Planning Healthcare Power of Physician Liaison: Yes, Financial Power of Physician Liaison: Yes, Living Will:Yes Code Status: Full Code Allergies[1] Current Medications[2] Medical History[3] Surgical History[4] Social History Tobacco Use Smoking status: Former Current packs/day: 1.00 Types: Cigarettes Smokeless tobacco: Never Tobacco comments: Quit smokin ppd times 5 yrs, quit 1975 Substance Use Topics Alcohol use: Yes Social [...] for c (more content not included)... Normal [facility] Consult -------- Attestation signed by Micky Montelongo [...] aspirin at home. He was evaluated at [facility] and there was concern for intracranial blood. [...] mmol/L UREA (more content not included)... Normal [facility] Laboratory - Chemistry and C hemistry - challengeon 02-21-2025 Glucose [Mass/Vol] 94 mg/dL 70 - 100 mg/dL [facility] No Panel Informationon 02-21 Interpretation and review of laboratory results Normal [facility] Performed by: [facility], [address] [place] [address] CLIA ID: [id number] [facility] Progress Noteon 02-21-2025 Progress Note Physician Response Please review the following and provide your response below. Please clarify which of the following accurately describes the patient's condition: Due to trauma This documentation will become part of the patient's medical record. Normal [facility] Progress Note -------- Attestation signed by [...] care plan as documented above by my GLOVE TAGGER/HI. I personally discussed the review of systems [...] Surgery Division of Trauma Department of Surgery [facility] P [1] Patient Active Problem List Diagnosis Hyperglycemia CAD, multiple vessel S/P CABG x 3 Fall Intraventricular hemorrhage (HCC) Intracranial hemorrhage (HCC) Daily Trauma Progress Note BRANDAN 02/21/2025 7:15 AM Admit Date: 02/20/2025 Post Trauma Day 1 Fall Mechanical HISTORY OF TRAUMATIC EVENT: 69 y.o. male status post fall. The incident happened around this am on 02/20/2025 at [facility]. When the event happened the patient [...] Systems HENT (more content not included)... Normal [facility] BASIC METABOLIC PANELon - Anion gap [Moles/Vol] 6 mmol/L Normal 3-13 [facility] Comment on above: Performed By: #### L AB15 ####Senior Operator: YVROSE PAYAN ([phone])[facility])[address] [place] [address] Calcium [Mass/Vol] 8.8 mg/dL Normal 8.8-10.0 [facility] Comment on above: Performed By: #### L AB15 ####Senior Operator: YVROSE PAYAN ([id number])[facility])[address] [place] [address] Chloride [Moles/Vol] 108 mmol/L High 98-107 [facility] Comment on above: Performed By: #### L AB15 ####Senior Operator: YVROSE PAYAN ([id number])[facility] ([facility])[address] [place] [address] CO2 [Moles/Vol] 23 mmol/L Normal 23-31 [facility] Comment on above: Performed By: #### L AB15 ####Senior Operator: YVROSE PAYAN ([phone])[facility])[address] [place] [address] Creatinine [Mass/Vol] 1.47 mg/dL High 0.72-1.25 [facility] Comment on above: Performed By: #### L AB15 ####Senior Operator: YVROSE PAYAN ([phone])[facility])[address] [place] [address] GLOMERULAR FILTRATION RATE ML/MIN/1.73 SQ M.PREDICTED 51.0 mL/min/1.73m*2 Low >60.0 [facility] Comment on above: Result Comment: Calc ulation based on the Chronic Kidney Disease Epidemiology Collaboration (CKD-EPI) equation refit without adjustment for race Performed By: #### L AB15 ####Senior Operator: YVROSE PAYAN ([id number])[facility])[address] [place] [address] Glucose [Mass/Vol] 119 mg/dL High 82-115 [facility] Comment on above: Performed By: #### L AB15 ####Senior Operator: YVROSE PAYAN ([id number])[facility])[address] [place] [address] Potassium [Moles/Vol] 4.6 mmol/L Normal 3.5-5.1 [facility] Comment on above: Result Comment: Plas ma potassium values may be up to 0.5 mmol/L lower than serum values. Performed By: #### L AB15 ####Senior Operator: YVROSE PAYAN ([phone])[facility])[address] [place] [address] Sodium [Moles/Vol] 137 mmol/L Normal 136-145 [facility] Comment on above: Performed By: #### L AB15 ####Senior Operator: YVROSE PAYAN ([phone])[address] Urea nitrogen [Mass/Vol] 26 mg/dL High 9-23 [facility] Comment on above: Performed By: #### L AB15 ####Senior Operator: YVROSE PAYAN ([phone])[address] Basic Metabolic Profile (BMP )on 02-20-2025 BUN/CRE 14.6 RATIO Normal 10-20 [facility] Comment on above: Performed By: #### L 500.2500, L300.4310, L300.3900, L100.0100 ####[facility] [address] [place], [address] Calcium [Mass/Vol] 9.4 mg/dL Normal 7.6-11.0 [facility] Comment on above: Performed By: #### L 500.2500, L300.4310, L300.3900, L100.0100 ####[facility] [address] [place], [address] Chloride [Moles/Vol] 105 mmol/L Normal 98-108 [facility] Comment on above: Performed By: #### L 500.2500, L300.4310, L300.3900, L100.0100 ####[facility] [address] [place], [address] CO2 [Moles/Vol] 21.0 mmol/L Normal 21.0-32.0 [facility] Comment on above: Performed By: #### L 500.2500, L300.4310, L300.3900, L100.0100 ####[facility] [address] [place], [address] Creatinine [Mass/Vol] 1.74 mg/dL High 0.70-1.20 [facility] Comment on above: Performed By: #### L 500.2500, L300.4310, L300.3900, L100.0100 ####[facility] [address] [place], [address] ECRCL 38.22 ml/min Low 50-250 [facility] Comment on above: Performed By: #### L 500.2500, L300.4310, L300.3900, L100.0100 ####[facility] [address] [place], [address] GAP 13 Normal 5-15 [facility] Comment on above: Performed By: #### L 500.2500, L300.4310, L300.3900, L100.0100 ####[facility] [address] [place], [address] GFR/1.73 sq M.predicted among non-blacks MDRD (S/P/Bld) [Vol rate/Area] 42 mL/min/{1.73_m2} Low >60 [facility] Comment on above: Result Comment: mL/m in/1.73m2 CKD-EPI Creatinine Equation (2020) Performed By: #### L 500.2500, L300.4310, L300.3900, L100.0100 ####[facility] [address] [place], [address] Glucose [Mass/Vol] 143 mg/dL High 70-99 [facility] Comment on above: Performed By: #### L 500.2500, L300.4310, L300.3900, L100.0100 ####[facility] [address] [place], [address] Potassium [Moles/Vol] 4.9 mmol/L Normal 3.3-5.1 [facility] Comment on above: Performed By: #### L 500.2500, L300.4310, L300.3900, L100.0100 ####[facility] [address] [place], [address] Sodium [Moles/Vol] 139 mmol/L Normal 133-145 [facility] Comment on above: Performed By: #### L 500.2500, L300.4310, L300.3900, L100.0100 ####[facility] [address] [place], [address] Urea nitrogen [Mass/Vol] 25 mg/dL High 4-19 [facility] Comment on above: Performed By: #### L 500.2500, L300.4310, L300.3900, L100.0100 ####[facility] [address] [place], [address] Basic metabolic 1998 panelon 02-20-2025 Anion gap [Moles/Vol] 6 mmol/L 3 - 13 mmol/L [facility] [employer] Calcium [Mass/Vol] 8.8 mg/dL 8.8 - 10. 0 mg/dL [facility] Chloride [Moles/Vol] 108 mmol/L High 98 - 107 mmol/L [facility] CO2 [Moles/Vol] 23 mmol/L 23 - 31 mmol/L [facility] Creatinine [Mass/Vol] 1.47 mg/dL High 0.72 - 1.25 mg/dL [facility] GFR/1.73 sq M.predicted (S/P/Bld) [Vol rate/Area] 51 mL/min Low - PINF [facility] Comment on above: Calculation based on the Chronic Kidney Disease Epidemiology Collaboration (CKD-EPI) equation refit without adjustment for race Glucose [Mass/Vol] 119 mg/dL High 82 - 115 mg/dL [facility] Interpretation and review of laboratory results Abnormal [facility] Potassium [Moles/Vol] 4.6 mmol/L 3.5 - 5.1 mmol/L [facility] Comment on above: Plasma potassium barbara ues may be up to 0.5 mmol/L lower than serum values. Sodium [Moles/Vol] 137 mmol/L 136 - 145 mmol/L [facility] Urea nitrogen [Mass/Vol] 26 mg/dL High 9 - 23 mg/dL [facility] Brain/Head without Contrasto n 02-20-2025 Brain/Head without Contrast [facility] Imaging Services [address] [place] [address] [id number] Brain/Head without Contrast MR#: [id number] Acct: [id number] Name: DOUGLAS CALLAWAY Jr. Rep #: [id number] : 1955 M 69 From: Christiano Eduardo MD PCP: Dr. Iván Case MD Status: REG ER Study: Brain/Head without Contrast Date of Exam: 02/04 03/30 Exam# [id number] Ordering Dr: Jennifer Solorzano DO PROCEDURE: BRAIN/HEAD [...] at the time of dictation. [facility]: Dr. Jennifer Solorzano DO; Dr. Iván Case MD Lead Security Officer: Signed Normal [facility] CBC (HEMOGRAM)on 02-20-2025 Erythrocyte distribution width (RBC) [Ratio] 13.1 % Normal 11.5-15.0 [facility] Comment on above: Performed By: #### L [id number] ####Senior Operator: YVROSE [id number])[address] Hematocrit (Bld) [Volume fraction] 36.5 % Low 40.0-52.0 [facility] Comment on above: Performed By: #### L AB294 ####Senior Operator: YVROSE PAYAN ([phone])[facility] ([facility])[address] [place] [address] Hemoglobin (Bld) [Mass/Vol] 12.3 g/dL Low 13.0-18.0 [facility] Comment on above: Performed By: #### L AB294 ####Senior Operator: YVROSE PAYAN ([phone])[facility])[address] [place] [address] MCH (RBC) [Entitic mass] 32.5 pg Normal 26.0-34.0 [facility] Comment on above: Performed By: #### L AB294 ####Senior Operator: YVROSE PAYAN ([id number])[facility])[address] [place] [address] MCHC 33.7 % Normal 30.5-36.0 [facility] Comment on above: Performed By: #### L AB294 ####Senior Operator: YVROSE PAYAN ([id number])[facility] ([facility])[address] [place] [address] MCV (RBC) [Entitic vol] 96.6 fL Normal 77.0-99.0 [facility] Comment on above: Performed By: #### L AB294 ####Senior Operator: YVROSE PAYAN ([id number])[facility])[address] [place] [address] Platelet mean volume (Bld) [Entitic vol] 9.9 fL Normal 9.0-12.7 [facility] Comment on above: Performed By: #### L AB294 ####Senior Operator: YVROSE PAYAN ([id number])[facility])[address] [place] [address] Platelets (Bld) [#/Vol] 191 10*3/uL Normal 140-440 [facility] Comment on above: Performed By: #### L AB294 ####Senior Operator: YVROSE PAYAN ([phone])[facility])[address] [place] [address] RBC (Bld) [#/Vol] 3.78 10*6/uL Low 4.40-5.90 [facility] Comment on above: Performed By: #### L AB294 ####Senior Operator: YVROSE PAYAN ([phone])[facility])[address] [place] [address] WBC (Bld) [#/Vol] 8.8 10*3/uL Normal 3.6-10.7 [facility] Comment on above: Performed By: #### L AB294 ####Senior Operator: YVROSE PAYAN ([phone])[facility] ([address] CBC W/Diff, Automatedon - Absolute Lymph 1.12 X10 3/uL Normal 0.83-4.51 [facility] Comment on above: Performed By: #### L 500.2500, L300.4310, L300.3900, L100.0100 ####[facility] [address] [place], [address] Absolute Neut 6.8 X10 3/uL Normal 2.0-7.7 [facility] Comment on above: Performed By: #### L 500.2500, L300.4310, L300.3900, L100.0100 ####[facility] [address] [place], [address] Basophils/100 WBC (Bld) 0.3 % Normal 0-1 [facility] Comment on above: Performed By: #### L 500.2500, L300.4310, L300.3900, L100.0100 ####[facility] [address] [place], [address] Eosinophils/100 WBC (Bld) 1.4 % Normal 0-5 [facility] Comment on above: Performed By: #### L 500.2500, L300.4310, L300.3900, L100.0100 ####[facility] [address] [place], [address] Erythrocyte distribution width (RBC) [Ratio] 13.1 % Normal 11.6-14.6 [facility] Comment on above: Performed By: #### L 500.2500, L300.4310, L300.3900, L100.0100 ####[facility] [address] [place], [address] Hematocrit (Bld) [Volume fraction] 38.4 % Low 40-54 [facility] Comment on above: Performed By: #### L 500.2500, L300.4310, L300.3900, L100.0100 ####[facility] [address] [place], [address] Hemoglobin (Bld) [Mass/Vol] 12.9 g/dL Low 13.0-16.5 [facility] Comment on above: Performed By: #### L 500.2500, L300.4310, L300.3900, L100.0100 ####[facility] [address] [place], [address] IG% 1.200 High 0.0-0.9 [facility] Comment on above: Result Comment: IG% - Immature Granulocytes (promyelocytes, myelocytes and metamyelocytes) > 1% indicates that a LEFT SHIFT is Present. Performed By: #### L 500.2500, L300.4310, L300.3900, L100.0100 ####[facility] [address] [place], [address] Lymphocytes/100 WBC (Bld) 12.7 % Low 19-41 [facility] Comment on above: Performed By: #### L 500.2500, L300.4310, L300.3900, L100.0100 ####[facility] [address] [place], [address] MCH (RBC) [Entitic mass] 32.3 pg High 27.0-32.0 [facility] Comment on above: Performed By: #### L 500.2500, L300.4310, L300.3900, L100.0100 ####[facility] [address] [place], [address] MCHC (RBC) [Mass/Vol] 33.6 g/dL Normal 32-36 [facility] Comment on above: Performed By: #### L 500.2500, L300.4310, L300.3900, L100.0100 ####[facility] [address] [place], [address] MCV (RBC) [Entitic vol] 96.2 fL High 80-94 [facility] Comment on above: Performed By: #### L 500.2500, L300.4310, L300.3900, L100.0100 ####[facility] [address] [place], [address] Monocytes/100 WBC (Bld) 7.5 % Normal 0-10 [facility] Comment on above: Performed By: #### L 500.2500, L300.4310, L300.3900, L100.0100 ####[facility] [address] [place], [address] Neutrophils/100 WBC (Bld) 76.9 % High 47-70 [facility] Comment on above: Performed By: #### L 500.2500, L300.4310, L300.3900, L100.0100 ####[facility] [address] [place], [address] Nucleated RBC (Bld) [#/Vol] 0 10*3/uL Normal 0-5 [facility] Comment on above: Performed By: #### L 500.2500, L300.4310, L300.3900, L100.0100 ####[facility] [address] [place], [address] Platelet mean volume (Bld) [Entitic vol] 9.8 fL Normal 6.2-12.0 [facility] Comment on above: Performed By: #### L 500.2500, L300.4310, L300.3900, L100.0100 ####[facility] [address] [place], [address] Platelets (Bld) [#/Vol] 197 10*3/uL Normal 150-450 [facility] Comment on above: Performed By: #### L 500.2500, L300.4310, L300.3900, L100.0100 ####[facility] [address] [place], [address] RBC (Bld) [#/Vol] 3.99 10*6/uL Low 4.6-6.2 [facility] Comment on above: Performed By: #### L 500.2500, L300.4310, L300.3900, L100.0100 ####[facility] [address] [place], [address] RDW SD 45.5 fl High 35.1-43.9 [facility] Comment on above: Performed By: #### L 500.2500, L300.4310, L300.3900, L100.0100 ####[facility] [address] [place], [address] WBC (Bld) [#/Vol] 8.8 10*3/uL Normal 4.4-11.0 [facility] Comment on above: Performed By: #### L 500.2500, L300.4310, L300.3900, L100.0100 ####[facility] [address] [place], [address] CBC panel Auto (Bld)on 02-20 Erythrocyte distribution width (RBC) [Ratio] 13.1 % 11.5 - 15.0 % [facility] [employer] Hematocrit (Bld) [Volume fraction] 36.5 % Low 40.0 - 52.0 % [facility] [employer] Hemoglobin (Bld) [Mass/Vol] 12.3 g/dL Low 13.0 - 18.0 g/dL [facility] Interpretation and review of laboratory results Abnormal [facility] [employer] MCH (RBC) [Entitic mass] 32.5 pg 26.0 - 34.0 pg [facility] [employer] MCHC (RBC) [Mass/Vol] 33.7 % 30.5 - 36.0 % [facility] [employer] MCV (RBC) [Entitic vol] 96.6 fL 77.0 - 99.0 fL [facility] Platelet mean volume (Bld) [Entitic vol] 9.9 fL 9.0 - 12.7 fL [facility] Platelets (Bld) [#/Vol] 191 10*3/uL 140 - 440 10*3/uL [facility] RBC (Bld) [#/Vol] 3.78 10*6/uL Low 4.40 - 5.9 0 10*6/uL [facility] WBC (Bld) [#/Vol] 8.8 10*3/uL 3.6 - 10.7 10*3/uL [facility] CT HEAD WO IV CONTRASTon CT HEAD WO IV CONTRAST Patient Name: [facility]ALAWAY [facility] 1955 [id number] Exam Date/Time: 02/20/2025 17:07 Procedure: CT HEAD [...] Electronically Signed Date/Time: 02/20/2025 7:21 PM EDT Normal [facility] CT Head WO contraston 2024 No acute intracrania l abnormality. Chronic microvascular change. Sphenoid sinusitis of unknown chronicity. Report Dictated on Electronically Signed By: Kwan Florian MD Electronically Signed Date/Time: 02/20/2025 7:21 PM EDT [facility] Patient Name: DOUGLAS SIMON : [...] skull and orbits are within normal limits. [facility] Kwan Florian MD - 02/20/2025 Patient [...] Electronically Signed Date/Time: 02/20/2025 7:[address] [address] Head WO contrastOrdered B y: Kwan Florian on 02-20-2025 [facility] Work Phone: Emergency Department Summary on 02-20-2025 Emergency Department Summary [facility] Medical Records Department [address] [place] [address] Emergency Department Summary 02/20/25 MR#: [id number] Acct: [id number] Name: DOUGLAS CALLAWAY Jr. Rep #: [id number] : 1955 69 From: Jennifer Solorzano DO [...] does take aspirin therapy. Tetanus Immunization: Unknown [facility] Medical History Exocrine pancreatic insufficiency [...] cell carcinoma Atherosclerosis of coronary artery of [place] heart without angina pectoris Hepatitis A Elevated [...] or ur (more content not included)... Normal [facility] Laboratory - Chemistry and C hemistry - challengeon 02-20-2025 Glucose [Mass/Vol] 116 mg/dL High 70 - 100 mg/dL [facility] [employer] Glucose [Mass/Vol] 115 mg/dL High 70 - 100 mg/dL [facility] [employer] Microalb:Creat Ratio,Random URon 02-20-2025 MALB:CREAT 2212.4 mg/g CRE Normal [facility] Comment on above: Result Comment: AMENDED REPORT 02/20/25 0911 MALB:CREAT previously reported as: 74436.7 mg/g CRE Performed By: #### L 506.1001, L501.5101, L501.9985, L502.0250, L501.0900, L500.4100, L100.0100, L500.4050 ####[facility] [address] [place], [address] No Panel Informationon 02-20 Interpretation and review of laboratory results Abnormal [facility] [employer] Performed by: [facility], [address] [place] [address] CLIA ID: [id number] [facility] Interpretation and review of laboratory results Abnormal [facility] Performed by: [facility], [address] [place] [address] CLIA ID: [id number] [facility] Radiology Study observation (narrative) [facility] Partial Thromboplast Timeon 02-20-2025 aPTT Coag (Bld) [Time] 22.1 s Low 24.1-36.2 [facility] Comment on above: Performed By: #### L 500.2500, L300.4310, L300.3900, L100.0100 ####[facility] [address] [place], [address] Prothrombin Time w/INRon INR Coag (PPP) [Relative time] 1.0 {INR} Normal [facility] Comment on above: Performed By: #### L 500.2500, L300.4310, L300.3900, L100.0100 ####[facility] [address] [place], [address] PT Coag (PPP) [Time] 13.3 s Normal 11.7-14.9 [facility] Comment on above: Performed By: #### L 500.2500, L300.4310, L300.3900, L100.0100 ####[facility] [address] [place], [address] Cardiology Visit Reporton Cardiology Visit Report [facility] [address] [place] [address] OFFICE VISIT Date of Service: 02/12/25 MR#: [id number] Acct: [id number] Name: DOUGLAS CALLAWAY Jr. Rep #: [id number] : 1955 Provider: NERI bateman Age/Sex: 69/M Location: 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 Accompanied by: Self Is patient in pain?: No Allergies No Known Allergies Allergy (Verified 02/12/25 11:04) Medications ???Medication ???Instructions ???Recorded ???Confirmed ???Type dorzolamide 22.3 mg-timolol 6.8 1 drp ophthalmic (eye) BID 0 02/12/25 History mg/mL eye drops (Cosopt) [...] the past year?: Yes (several- loses balance) [facility] Medical History (Updated 02/12/25 @ 11:35 by Iván Sexton INSPECTOR BARREL, INSPECTOR BARREL-C) Exocrine pancreatic insufficiency Gastritis Bile leak CPAP (continuous positive airway pressure) dependence Acute cholecystitis due to biliary calculus Common bile duct dilatation Irritable bowel Syncope Irregular heartbeat Acute gallstone pancreatitis Wears glasses Cancer Diabetes Gout Hepatitis Gastric reflux Former smoker History of echocardiogram History of stress test Hypertension Cardiology follow-up encounter Gastroparesis Squamous cell carcinoma Atherosclerosis of coronary artery of [place] heart without angina pectoris Hepatitis A Elevated LFTs Hyperlipidemia Type 2 diabetes mellitus without complication Bipolar II disorder Insomnia Essential hypertension CVA (cerebral vascular accident) (2003) TIA (transient ischemic attack) (2003) Diarrhea Depression GERD (gastroesophageal reflux disease) Sleep apnea Surgical History History of right shoulder replacement History of ERCP History of surgery on arm S/P laparoscopi (more content not included)... Normal [facility] Pulmonary Visit Reporton Pulmonary Visit Report [facility] [place] [address] [place] [address] OFFICE VISIT Date of Service: 02/01/25 MR#: [id number] Acct: [id number] Name: DOUGLAS CALLAWAY JrJoann Rep #: [id number] : 1955 Provider: NERI Berger Age/Sex: 69/M Location: [facility] Status: Signed Assessment and Plan Assessment and [...] Additional Comments: This note was generated with [facility] software. 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 Vendor: CPAP- [employer] [...] mg PO DAILY #30 tabs 08/14/24 0 02/01/25 Rx duloxetine 60 mg capsule,delayed 60 mg PO DAILY 90 days #90 caps 02/01/25 Rx release lamotrigine 200 mg tablet 200 mg PO DAILY 90 days #90 tabs 0 09/26/24 02/01/25 Rx doxepin 10 mg capsule 10 mg PO QHS PRN 02/01/25 History Have you fallen in the past year?: Yes (Fell last week) [facility] Medical History Exocrine pancreatic insufficiency Gastritis Bile leak CPAP (continuous positive airway pressure) dependence Acute cholecystitis due to biliary calculus Common bile duct dilatation Irritable bowel Syncope Irregular heartbeat Acute gallstone fuentes (more content not included)... Normal [facility] MR/BMS.BPon 12-25-2024 MR/BMS.BP [address], [address] [place] [address] OFFICE VISIT Date of Service: 12/25/24 MR#: [id number] Acct: [id number] Name: DOUGLAS CALLAWAY JrJoann Rep #: [id number] : 1955 Provider: Dr. Nilay Hamlin se, DO Age/Sex: 69/M Location: [facility] Status: Signed Intake Vital Signs 09/26/24 13:03 [...] cell carcinoma Atherosclerosis of coronary artery of [place] heart without angina pectoris Hepatitis A Elevated [...] evaluation. Patient reports that he has been "alright." Recently has gotten a CPAP machine, and is trying to adjust to utilizing. Believes part of this is secondary to not having a good seal with his current mask. As he is on medicare does worry about hitting their utilization numbers. Is optimistic this will improve. On the recognized that he has been suffering "from a low grade depression." Elaborates that it didn't limit him functionally, but in retrospect noticed that he had been feeling down. Has had some significant stress related to politics and current events. Did go to [place] in November for a of a fr (more content not included)... Normal [facility] L501.5101on 11-27-2024 GGTP 26 IU/L Normal 0-65 [facility] Comment on above: Order Comment: ZULEYMA Whitley ADD GGTP TO BLOOD DRAWN 11/22/24 PER Result Comment: Perf ormed at: [facility] [address] [id number] Water Plant Operator: Alfonzo Martin PhD, Phone: [phone] Performed By: #### L 506.1001, L501.5101, L501.9985, L502.0250, L501.0900, L500.4100, L100.0100, L500.4050 ####[facility] [address] [place], [place], [phone] Protein+Creatinine Ratio,Uri neon 11-23-2024 UR CREAT 74.40 mg/dL Normal 39.00-259.0 0 [facility] Comment on above: Performed By: #### L 506.1001, L501.5101, L501.9985, L502.0250, L501.0900, L500.4100, L100.0100, L500.4050 ####[facility] [address] [place], [place], [address] CBC W/Diff, Automatedon 11-04 Absolute Lymph 1.64 X10 3/uL Normal 0.83-4.51 [facility] Comment on above: Performed By: #### L 506.1001, L501.5101, L501.9985, L502.0250, L501.0900, L500.4100, L100.0100, L500.4050 ####[facility] [address] [place], [address] Absolute Neut 4.3 X10 3/uL Normal 2.0-7.7 [facility] Comment on above: Performed By: #### L 506.1001, L501.5101, L501.9985, L502.0250, L501.0900, L500.4100, L100.0100, L500.4050 ####[facility] [address] [place], [address] Basophils/100 WBC (Bld) 0.6 % Normal 0-1 [facility] Comment on above: Performed By: #### L 506.1001, L501.5101, L501.9985, L502.0250, L501.0900, L500.4100, L100.0100, L500.4050 ####[facility] [address] [place], [address] Eosinophils/100 WBC (Bld) 2.1 % Normal 0-5 [facility] Comment on above: Performed By: #### L 506.1001, L501.5101, L501.9985, L502.0250, L501.0900, L500.4100, L100.0100, L500.4050 ####[facility] [address] [place], [address] Erythrocyte distribution width (RBC) [Ratio] 12.7 % Normal 11.6-14.6 [facility] Comment on above: Performed By: #### L 506.1001, L501.5101, L501.9985, L502.0250, L501.0900, L500.4100, L100.0100, L500.4050 ####[facility] [address] [place], [address] Hematocrit (Bld) [Volume fraction] 40.5 % Normal 40-54 [facility] Comment on above: Performed By: #### L 506.1001, L501.5101, L501.9985, L502.0250, L501.0900, L500.4100, L100.0100, L500.4050 ####[facility] [address] [place], [address] Hemoglobin (Bld) [Mass/Vol] 13.2 g/dL Normal 13.0-16.5 [facility] Comment on above: Performed By: #### L 506.1001, L501.5101, L501.9985, L502.0250, L501.0900, L500.4100, L100.0100, L500.4050 ####[facility] [address] [place], [address] IG% 0.700 Normal 0.0-0.9 [facility] Comment on above: Result Comment: IG% - Immature Granulocytes (promyelocytes, myelocytes and metamyelocytes) > 1% indicates that a LEFT SHIFT is Present. Performed By: #### L 506.1001, L501.5101, L501.9985, L502.0250, L501.0900, L500.4100, L100.0100, L500.4050 ####[facility] [address] [place], [address] Lymphocytes/100 WBC (Bld) 23.0 % Normal 19-41 [facility] Comment on above: Performed By: #### L 506.1001, L501.5101, L501.9985, L502.0250, L501.0900, L500.4100, L100.0100, L500.4050 ####[facility] [address] [place], [address] MCH (RBC) [Entitic mass] 32.4 pg High 27.0-32.0 [facility] Comment on above: Performed By: #### L 506.1001, L501.5101, L501.9985, L502.0250, L501.0900, L500.4100, L100.0100, L500.4050 ####[facility] [address] [place], [address] MCHC (RBC) [Mass/Vol] 32.6 g/dL Normal 32-36 [facility] Comment on above: Performed By: #### L 506.1001, L501.5101, L501.9985, L502.0250, L501.0900, L500.4100, L100.0100, L500.4050 ####[facility] [address] [place], [address] MCV (RBC) [Entitic vol] 99.5 fL High 80-94 [facility] Comment on above: Performed By: #### L 506.1001, L501.5101, L501.9985, L502.0250, L501.0900, L500.4100, L100.0100, L500.4050 ####[facility] [address] [place], [address] Monocytes/100 WBC (Bld) 12.6 % High 0-10 [facility] Comment on above: Performed By: #### L 506.1001, L501.5101, L501.9985, L502.0250, L501.0900, L500.4100, L100.0100, L500.4050 ####[facility] [address] [place], [address] Neutrophils/100 WBC (Bld) 61.0 % Normal 47-70 [facility] Comment on above: Performed By: #### L 506.1001, L501.5101, L501.9985, L502.0250, L501.0900, L500.4100, L100.0100, L500.4050 ####[facility] [address] [place], [address] Nucleated RBC (Bld) [#/Vol] 0 10*3/uL Normal 0-5 [facility] Comment on above: Performed By: #### L 506.1001, L501.5101, L501.9985, L502.0250, L501.0900, L500.4100, L100.0100, L500.4050 ####[facility] [address] [place], [address] Platelet mean volume (Bld) [Entitic vol] 10.6 fL Normal 6.2-12.0 [facility] Comment on above: Performed By: #### L 506.1001, L501.5101, L501.9985, L502.0250, L501.0900, L500.4100, L100.0100, L500.4050 ####[facility] [address] [place], [place], [phone](179) Platelets (Bld) [#/Vol] 214 10*3/uL Normal 150-450 [facility] Comment on above: Performed By: #### L 506.1001, L501.5101, L501.9985, L502.0250, L501.0900, L500.4100, L100.0100, L500.4050 ####[facility] [address] [place], [address] RBC (Bld) [#/Vol] 4.07 10*6/uL Low 4.6-6.2 [facility] Comment on above: Performed By: #### L 506.1001, L501.5101, L501.9985, L502.0250, L501.0900, L500.4100, L100.0100, L500.4050 ####[facility] [address] [place], [address] RDW SD 46.2 fl High 35.1-43.9 [facility] Comment on above: Performed By: #### L 506.1001, L501.5101, L501.9985, L502.0250, L501.0900, L500.4100, L100.0100, L500.4050 ####[facility] [address] [place], [place], [phone] WBC (Bld) [#/Vol] 7.1 10*3/uL Normal 4.4-11.0 [facility] Comment on above: Performed By: #### L 506.1001, L501.5101, L501.9985, L502.0250, L501.0900, L500.4100, L100.0100, L500.4050 ####[facility] [address] [place], [place], [id number] Comprehensive Metabolic Prof ilon 11-22-2024 Albumin [Mass/Vol] 3.8 g/dL Normal 3.4-4.8 [facility] Comment on above: Performed By: #### L 506.1001, L501.5101, L501.9985, L502.0250, L501.0900, L500.4100, L100.0100, L500.4050 ####[facility] [address] [place], [place], [phone](474) Albumin/Globulin [Mass ratio] 1.5 {ratio} Normal 0.9-2.4 [facility] Comment on above: Performed By: #### L 506.1001, L501.5101, L501.9985, L502.0250, L501.0900, L500.4100, L100.0100, L500.4050 ####[facility] [address] [place], [place], [phone] ALK PHOS 193 U/L High 40-129 [facility] Comment on above: Performed By: #### L 506.1001, L501.5101, L501.9985, L502.0250, L501.0900, L500.4100, L100.0100, L500.4050 ####[facility] [address] [place], [place], [phone]) ALT [Catalytic activity/Vol] 24 U/L Normal <=46 [facility] Comment on above: Performed By: #### L 506.1001, L501.5101, L501.9985, L502.0250, L501.0900, L500.4100, L100.0100, L500.4050 ####[facility] [address] [place], [place], [phone](491) AST [Catalytic activity/Vol] 28 U/L Normal <=37 [facility] Comment on above: Performed By: #### L 506.1001, L501.5101, L501.9985, L502.0250, L501.0900, L500.4100, L100.0100, L500.4050 ####[facility] [address] [place], [address] Bilirubin [Mass/Vol] 0.30 mg/dL Normal 0.00-1.30 [facility] Comment on above: Performed By: #### L 506.1001, L501.5101, L501.9985, L502.0250, L501.0900, L500.4100, L100.0100, L500.4050 ####[facility] [address] [place], [address] BUN/CRE 18.8 RATIO Normal 10-20 [facility] Comment on above: Performed By: #### L 506.1001, L501.5101, L501.9985, L502.0250, L501.0900, L500.4100, L100.0100, L500.4050 ####[facility] [address] [place], [place], [phone](847) Calcium [Mass/Vol] 9.7 mg/dL Normal 7.6-11.0 [facility] Comment on above: Performed By: #### L 506.1001, L501.5101, L501.9985, L502.0250, L501.0900, L500.4100, L100.0100, L500.4050 ####[facility] [address] [place], [place], [phone](058) Chloride [Moles/Vol] 100 mmol/L Normal 98-108 [facility] Comment on above: Performed By: #### L 506.1001, L501.5101, L501.9985, L502.0250, L501.0900, L500.4100, L100.0100, L500.4050 ####[facility] [address] [place], [place], [phone](165) CO2 [Moles/Vol] 22.5 mmol/L Normal 21.0-32.0 [facility] Comment on above: Performed By: #### L 506.1001, L501.5101, L501.9985, L502.0250, L501.0900, L500.4100, L100.0100, L500.4050 ####[facility] [address] [place], [place], [phone](888) Creatinine [Mass/Vol] 1.70 mg/dL High 0.70-1.20 [facility] Comment on above: Performed By: #### L 506.1001, L501.5101, L501.9985, L502.0250, L501.0900, L500.4100, L100.0100, L500.4050 ####[facility] [address] [place], [address] GAP 16 High 5-15 [facility] Comment on above: Performed By: #### L 506.1001, L501.5101, L501.9985, L502.0250, L501.0900, L500.4100, L100.0100, L500.4050 ####[facility] [address] [place], [place], [phone](219) GFR/1.73 sq M.predicted among non-blacks MDRD (S/P/Bld) [Vol rate/Area] 43 mL/min/{1.73_m2} Low >60 [facility] Comment on above: Result Comment: mL/m in/1.73m2 CKD-EPI Creatinine Equation (2020) Performed By: #### L 506.1001, L501.5101, L501.9985, L502.0250, L501.0900, L500.4100, L100.0100, L500.4050 ####[facility] [address] [place], [address] Globulin (S) [Mass/Vol] 2.6 g/dL Normal 2.2-4.2 [facility] Comment on above: Performed By: #### L 506.1001, L501.5101, L501.9985, L502.0250, L501.0900, L500.4100, L100.0100, L500.4050 ####[facility] [address] [place], [address] Glucose [Mass/Vol] 110 mg/dL High 70-99 [facility] Comment on above: Performed By: #### L 506.1001, L501.5101, L501.9985, L502.0250, L501.0900, L500.4100, L100.0100, L500.4050 ####[facility] [address] [place], [address] Potassium [Moles/Vol] 4.2 mmol/L Normal 3.3-5.1 [facility] Comment on above: Performed By: #### L 506.1001, L501.5101, L501.9985, L502.0250, L501.0900, L500.4100, L100.0100, L500.4050 ####[facility] [address] [place], [address] Sodium [Moles/Vol] 138 mmol/L Normal 133-145 [facility] Comment on above: Performed By: #### L 506.1001, L501.5101, L501.9985, L502.0250, L501.0900, L500.4100, L100.0100, L500.4050 ####[facility] [address] [place], [address] T PROT 6.4 g/dL Normal 5.9-8.4 [facility] Comment on above: Performed By: #### L 506.1001, L501.5101, L501.9985, L502.0250, L501.0900, L500.4100, L100.0100, L500.4050 ####[facility] [address] [place], [address] Urea nitrogen [Mass/Vol] 32 mg/dL High - [facility] Comment on above: Performed By: #### L 506.1001, L501.5101, L501.9985, L502.0250, L501.0900, L500.4100, L100.0100, L500.4050 ####[facility] [address] [place], [address] Hemoglobin A1con 11-22-2024 HbA1c (Bld) [Mass fraction] 5.9 % Normal <=5.6 [facility] Comment on above: Performed By: #### L 506.1001, L501.5101, L501.9985, L502.0250, L501.0900, L500.4100, L100.0100, L500.4050 ####[facility] [address] [place], [address] L506.1001on 11-22-2024 Vitamin D 25-OH 27.3 ng/mL Low 30-100 [facility] Comment on above: Result Comment: Ladi min D Status Deficiency: <20 ng/mL (50nmol/L) Insufficiency: 20-30 ng/mL (50-75 nmol/L) Sufficiency: 30-100 ng/mL (75-250 nmol/L) Toxicity: >100 ng/mL (>250 nmol/L) Performed By: #### L 506.1001, L501.5101, L501.9985, L502.0250, L501.0900, L500.4100, L100.0100, L500.4050 ####[facility] [id number] [place], [address] Lipid Profileon 11-22-2024 CHOL:HDL 2.63 Normal [facility] Comment on above: Performed By: #### L 506.1001, L501.5101, L501.9985, L502.0250, L501.0900, L500.4100, L100.0100, L500.4050 ####[facility] [id number] [facility]. [place], [place], [id number] Cholesterol [Mass/Vol] 136 mg/dL Normal <=200 [facility] Comment on above: Result Comment: Chol esterol level, Desirable <200 mg/dL Borderline high cholesterol 200-239 mg/dL High cholesterol >=240 mg/dL Recommendations of the NCEP Adult Treatment Panel for the following risk-cutoff thresholds for the [place] population. Performed By: #### L 506.1001, L501.5101, L501.9985, L502.0250, L501.0900, L500.4100, L100.0100, L500.4050 ####[facility] [address] [place], [address] Cholesterol in HDL [Mass/Vol] 52 mg/dL Normal [facility] Comment on above: Result Comment: Yoana onal Cholesterol Education Program (NCEP) guidelines: <40 mg/dL: Low HDL-cholesterol (major risk factor for CHD) >= 60 mg/dL: High HDL-cholesterol (negative risk factor for CHD) HDL-cholesterol is affected by a number of factors, e.g. smoking, exercise, hormones, sex and age. Performed By: #### L 506.1001, L501.5101, L501.9985, L502.0250, L501.0900, L500.4100, L100.0100, L500.4050 ####[facility] [address] [place], [address] Cholesterol in LDL [Mass/Vol] 14 mg/dL Normal [facility] Comment on above: Result Comment: Bord jzutnv=389-764 mg/dL Higher Lrkt=122 mg/dL or greater Performed By: #### L 506.1001, L501.5101, L501.9985, L502.0250, L501.0900, L500.4100, L100.0100, L500.4050 ####[facility] [address] [place], [address] Cholesterol in VLDL [Mass/Vol] 70 mg/dL High 5-40 [facility] Comment on above: Performed By: #### L 506.1001, L501.5101, L501.9985, L502.0250, L501.0900, L500.4100, L100.0100, L500.4050 ####[facility] [address] [place], [address] Triglyceride [Mass/Vol] 349 mg/dL High [facility] Comment on above: Result Comment: The drugs N-Acetylcysteine and Metamizole may falsely depress this assay. Normal range: <150 mg/dL Borderline High: 150-199 mg/dL High: 200-499 mg/dL Very High: >500 mg/dL Performed By: #### L 506.1001, L501.5101, L501.9985, L502.0250, L501.0900, L500.4100, L100.0100, L500.4050 ####[facility] [address] [place], [address] Pulmonary Visit Reporton [facility] [address] [place] [address] OFFICE VISIT Date of Service: 10/26/24 MR#: [id number] Acct: [id number] Name: DOUGLAS CALLAWAY Jr. Rep #: [id number] : 1955 Provider: NERI Berger Age/Sex: 69/M Location: [facility].PMW Status: Signed Assessment and Plan Assessment and [...] originally diagnosed with obstructive sleep apnea in [place] approximately 15 years ago. The patient reports that he did utilize his machine for about 5 years. He was initially referred due to very severe snoring. He recalls that he "stopped breathing 40 times an hour". He had no difficulty acclimating to machine and used it faithfully. However, when he moved to [place] in about 2011, his thought that the machine was "really discussed teamly dirty" and she threw it away. Since then, the patient is not feeling rested when he wakes up in the morning. He does snore. He occasionally naps. He does find himself nodding off. He has awakened himself by gasping for air. He reports dry mouth. He has about 2-3 episodes of nocturia nightly. 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 He is a former smoker, however he quit smoking over 40 years ago. He was seen by a goal umpire and had a pulmonary function test many [...] health. He states that his son is "neuro divergent, autistic and bipolar". 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 Normal [facility] MR/BMS.BPon 09-26-2024 MR/[place] [address] OFFICE VISIT Date of Service: 09/26/24 MR#: [id number] Acct: [id number] Name: CESIADOUGLAS VIVEROS Jr. Rep #: [id number] : 1955 Provider: Dr. Nilay Hamlin se, DO Age/Sex: 69/M Location: [facility].BP Status: Signed Intake Vital Signs 07/27/24 13:47 [...] cell carcinoma Atherosclerosis of coronary artery of [place] heart without angina pectoris Hepatitis A Elevated [...] evaluation. Patient reports that he has been "pretty good." Does admit that for a little while he has been feeling "very sedated." Denies feeling depressed at all, but maybe [...] use of doxepin. Supposed to meet with goal umpire in October for assessment of sleep apnea. Tremor has been largely stable. Not having significant s (more content not included)... Normal [facility] Cardiology Visit Reporton Cardiology Visit Report [facility] [address] [place] [address]. [address] [place] [address] OFFICE VISIT Date of Service: 08/14/24 MR#: [id number] Acct: [id number] Name: DOUGLAS CALLAWAY JrJoann Rep #: [id number] : 1955 Provider: NERI bateman Age/Sex: 69/M Location: 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 Normal [facility] MR/BMS.BPon 07-27-2024 MR/BMS.BP [facility] [address], [address] [place] [address] OFFICE VISIT Date of Service: 07/27/24 MR#: [id number] Acct: [id number] Name: DOUGLAS CALLAWAY Jr. Rep #: [id number] : 1955 Provider: Dr. Nilay Hamlin se, DO Age/Sex: 69/M Location: BMS.BP Status: Signed Intake Vital Signs 04/20/24 11:08 [...] cell carcinoma Atherosclerosis of coronary artery of [place] heart without angina pectoris Hepatitis A Elevated [...] Patient reports that he has been doing "really good." Denies any depressive symptoms since April of [...] without new/different side effects. Recently drove to [place] to see his friend. Denies SI/HI or [...] regular volume and regular prosody Mood other ("pretty good") Affect congruent Thought Process linear, logical and coherent Thought Content no delusions and no hallucinations Suicidal Ideation none Homicidal Ideation none Attention intact Concentration intact Sensorium/Orientation awake, alert and oriented (more content not included)... Normal [facility] CBC W/Diff, Automatedon 11-2 0-2024 Absolute Lymph 2.07 X10 3/uL Normal 0.83-4.51 [facility] Comment on above: Performed By: #### L 501.9985, L506.0400, L100.0100, L501.9520, L500.4050, L500.4100, L506.1000, L503.0105 ####[facility] [address] [place], [address] Absolute Neut 8.5 X10 3/uL High 2.0-7.7 [facility] Comment on above: Performed By: #### L 501.9985, L506.0400, L100.0100, L501.9520, L500.4050, L500.4100, L506.1000, L503.0105 ####[facility] [address] [place], [address] Basophils/100 WBC (Bld) 0.6 % Normal 0-1 [facility] Comment on above: Performed By: #### L 501.9985, L506.0400, L100.0100, L501.9520, L500.4050, L500.4100, L506.1000, L503.0105 ####[facility] [address] [place], [address] Eosinophils/100 WBC (Bld) 1.7 % Normal 0-5 [facility] Comment on above: Performed By: #### L 501.9985, L506.0400, L100.0100, L501.9520, L500.4050, L500.4100, L506.1000, L503.0105 ####[facility] [address] [place], [address] Erythrocyte distribution width (RBC) [Ratio] 12.8 % Normal 11.6-14.6 [facility] Comment on above: Performed By: #### L 501.9985, L506.0400, L100.0100, L501.9520, L500.4050, L500.4100, L506.1000, L503.0105 ####[facility] [address] [place], [address] Hematocrit (Bld) [Volume fraction] 44.6 % Normal 40-54 [facility] Comment on above: Performed By: #### L 501.9985, L506.0400, L100.0100, L501.9520, L500.4050, L500.4100, L506.1000, L503.0105 ####[facility] [address] [place], [address] Hemoglobin (Bld) [Mass/Vol] 14.2 g/dL Normal 13.0-16.5 [facility] Comment on above: Performed By: #### L 501.9985, L506.0400, L100.0100, L501.9520, L500.4050, L500.4100, L506.1000, L503.0105 ####[facility] [address] [place], [address] IG% 1.000 High 0.0-0.9 [facility] Comment on above: Result Comment: IG% - Immature Granulocytes (promyelocytes, myelocytes and metamyelocytes) > 1% indicates that a LEFT SHIFT is Present. Performed By: #### L 501.9985, L506.0400, L100.0100, L501.9520, L500.4050, L500.4100, L506.1000, L503.0105 ####[facility] [address] [place], [address] Lymphocytes/100 WBC (Bld) 17.2 % Low 19-41 [facility] Comment on above: Performed By: #### L 501.9985, L506.0400, L100.0100, L501.9520, L500.4050, L500.4100, L506.1000, L503.0105 ####[facility] [address] [place], [address] MCH (RBC) [Entitic mass] 31.8 pg Normal 27.0-32.0 [facility] Comment on above: Performed By: #### L 501.9985, L506.0400, L100.0100, L501.9520, L500.4050, L500.4100, L506.1000, L503.0105 ####[facility] [address] [place], [address] MCHC (RBC) [Mass/Vol] 31.8 g/dL Low 32-36 [facility] Comment on above: Performed By: #### L 501.9985, L506.0400, L100.0100, L501.9520, L500.4050, L500.4100, L506.1000, L503.0105 ####[facility] [address] [place], [address] MCV (RBC) [Entitic vol] 99.8 fL High 80-94 [facility] Comment on above: Performed By: #### L 501.9985, L506.0400, L100.0100, L501.9520, L500.4050, L500.4100, L506.1000, L503.0105 ####[facility] [address] [place], [address] Monocytes/100 WBC (Bld) 9.1 % Normal 0-10 [facility] Comment on above: Performed By: #### L 501.9985, L506.0400, L100.0100, L501.9520, L500.4050, L500.4100, L506.1000, L503.0105 ####[facility] [address] [place], [address] Neutrophils/100 WBC (Bld) 70.4 % High 47-70 [facility] Comment on above: Performed By: #### L 501.9985, L506.0400, L100.0100, L501.9520, L500.4050, L500.4100, L506.1000, L503.0105 ####[facility] [address] [place], [address] Nucleated RBC (Bld) [#/Vol] 0 10*3/uL Normal 0-5 [facility] Comment on above: Performed By: #### L 501.9985, L506.0400, L100.0100, L501.9520, L500.4050, L500.4100, L506.1000, L503.0105 ####[facility] [address] [place], [address] Platelet mean volume (Bld) [Entitic vol] 10.7 fL Normal 6.2-12.0 [facility] Comment on above: Performed By: #### L 501.9985, L506.0400, L100.0100, L501.9520, L500.4050, L500.4100, L506.1000, L503.0105 ####[facility] [address] [place], [address] Platelets (Bld) [#/Vol] 212 10*3/uL Normal 150-450 [facility] Comment on above: Performed By: #### L 501.9985, L506.0400, L100.0100, L501.9520, L500.4050, L500.4100, L506.1000, L503.0105 ####[facility] [address] [place], [address] RBC (Bld) [#/Vol] 4.47 10*6/uL Low 4.6-6.2 [facility] Comment on above: Performed By: #### L 501.9985, L506.0400, L100.0100, L501.9520, L500.4050, L500.4100, L506.1000, L503.0105 ####[facility] [address] [place], [place], [address] RDW SD 46.1 fl High 35.1-43.9 [facility] Comment on above: Performed By: #### L 501.9985, L506.0400, L100.0100, L501.9520, L500.4050, L500.4100, L506.1000, L503.0105 ####[facility] [address] [place], [address] WBC (Bld) [#/Vol] 12.0 10*3/uL High 4.4-11.0 [facility] Comment on above: Performed By: #### L 501.9985, L506.0400, L100.0100, L501.9520, L500.4050, L500.4100, L506.1000, L503.0105 ####[facility] [address] [place], [address] Comprehensive Metabolic Prof [facility] 07-26-2024 Albumin [Mass/Vol] 3.0 g/dL Low 3.2-5.0 [facility] Comment on above: Performed By: #### L 501.9985, L506.0400, L100.0100, L501.9520, L500.4050, L500.4100, L506.1000, L503.0105 ####[facility] [address] [place], [place], [address] Albumin/Globulin [Mass ratio] 0.9 {ratio} Normal 0.9-2.4 [facility] Comment on above: Performed By: #### L 501.9985, L506.0400, L100.0100, L501.9520, L500.4050, L500.4100, L506.1000, L503.0105 ####[facility] [address] [place], [address] ALK P 141 U/L High 45-117 [facility] Comment on above: Performed By: #### L 501.9985, L506.0400, L100.0100, L501.9520, L500.4050, L500.4100, L506.1000, L503.0105 ####[facility] [address] [place], [address] ALT [Catalytic activity/Vol] 50 U/L Normal 16-61 [facility] Comment on above: Performed By: #### L 501.9985, L506.0400, L100.0100, L501.9520, L500.4050, L500.4100, L506.1000, L503.0105 ####[facility] [address] [place], [address] AST [Catalytic activity/Vol] 42 U/L High 15-37 [facility] Comment on above: Performed By: #### L 501.9985, L506.0400, L100.0100, L501.9520, L500.4050, L500.4100, L506.1000, L503.0105 ####[facility] [address] [place], [address] Bilirubin [Mass/Vol] 0.40 mg/dL Normal 0.20-1.00 [facility] Comment on above: Result Comment: For patients on eltrombopag therapy, use of Dimension [place] TBIL is not recommended. Performed By: #### L 501.9985, L506.0400, L100.0100, L501.9520, L500.4050, L500.4100, L506.1000, L503.0105 ####[facility] [address] [place], [address] BUN/CRE 19.2 RATIO Normal 10-20 [facility] Comment on above: Performed By: #### L 501.9985, L506.0400, L100.0100, L501.9520, L500.4050, L500.4100, L506.1000, L503.0105 ####[facility] [address] [place], [address] CA,Total 10.2 mg/dL High 8.5-10.1 [facility] Comment on above: Performed By: #### L 501.9985, L506.0400, L100.0100, L501.9520, L500.4050, L500.4100, L506.1000, L503.0105 ####[facility] [address] [place], [address] Chloride [Moles/Vol] 106 mmol/L Normal 98-107 [facility] Comment on above: Performed By: #### L 501.9985, L506.0400, L100.0100, L501.9520, L500.4050, L500.4100, L506.1000, L503.0105 ####[facility] [address] [place], [address] CO2 [Moles/Vol] 26.0 mmol/L Normal 21.0-32.0 [facility] Comment on above: Performed By: #### L 501.9985, L506.0400, L100.0100, L501.9520, L500.4050, L500.4100, L506.1000, L503.0105 ####[facility] [address] [place], [address] Creatinine [Mass/Vol] 1.51 mg/dL High 0.70-1.30 [facility] Comment on above: Result Comment: The validity of the calculated GFR GFRAA in patients over 70 years has not been determined. Clinical correlation is essential. Performed By: #### L 501.9985, L506.0400, L100.0100, L501.9520, L500.4050, L500.4100, L506.1000, L503.0105 ####[facility] [address] [place], [address] EST GFR - AA 59 mL/min Low >60 [facility] Comment on above: Result Comment: Afri can [place] GFR Calc Performed By: #### L 501.9985, L506.0400, L100.0100, L501.9520, L500.4050, L500.4100, L506.1000, L503.0105 ####[facility] [address] [place], [address] GAP 8 Normal 5-15 [facility] Comment on above: Performed By: #### L 501.9985, L506.0400, L100.0100, L501.9520, L500.4050, L500.4100, L506.1000, L503.0105 ####[facility] [address] [place], [address] GFR/1.73 sq M.predicted among non-blacks MDRD (S/P/Bld) [Vol rate/Area] 49 mL/min/{1.73_m2} Low >60 [facility] Comment on above: Result Comment: Non- GFR Calc Performed By: #### L 501.9985, L506.0400, L100.0100, L501.9520, L500.4050, L500.4100, L506.1000, L503.0105 ####[facility] [address] [place], [address] Globulin (S) [Mass/Vol] 3.4 g/dL Normal 2.2-4.2 [facility] Comment on above: Performed By: #### L 501.9985, L506.0400, L100.0100, L501.9520, L500.4050, L500.4100, L506.1000, L503.0105 ####[facility] [address] [place], [address] Glucose [Mass/Vol] 121 mg/dL High 74-106 [facility] Comment on above: Result Comment: Fast ing Glucose result from 100 to 125 mg/dL suggests IMPAIRED HOMEOSTASIS per A.D.A. criteria. Performed By: #### L 501.9985, L506.0400, L100.0100, L501.9520, L500.4050, L500.4100, L506.1000, L503.0105 ####[facility] [address] [place], [address] Potassium [Moles/Vol] 4.2 mmol/L Normal 3.5-5.1 [facility] Comment on above: Performed By: #### L 501.9985, L506.0400, L100.0100, L501.9520, L500.4050, L500.4100, L506.1000, L503.0105 ####[facility] [address] [place], [address] Sodium [Moles/Vol] 140 mmol/L Normal 136-145 [facility] Comment on above: Performed By: #### L 501.9985, L506.0400, L100.0100, L501.9520, L500.4050, L500.4100, L506.1000, L503.0105 ####[facility] [address] [place], [address] T PROT 6.4 g/dL Normal 6.4-8.2 [facility] Comment on above: Performed By: #### L 501.9985, L506.0400, L100.0100, L501.9520, L500.4050, L500.4100, L506.1000, L503.0105 ####[facility] [address] [place], [address] Urea nitrogen [Mass/Vol] 29 mg/dL High 7-18 [facility] Comment on above: Performed By: #### L 501.9985, L506.0400, L100.0100, L501.9520, L500.4050, L500.4100, L506.1000, L503.0105 ####[facility] [address] [place], [address] Hemoglobin A1con 07-26-2024 HbA1c (Bld) [Mass fraction] 5.9 % High 3.8-5.6 [facility] Comment on above: Result Comment: Norm al < 5.7 % Prediabetic 5.7 - 6.4 % Diabetic >or= 6.5 % Please note range changes. Performed By: #### L 501.9985, L506.0400, L100.0100, L501.9520, L500.4050, L500.4100, L506.1000, L503.0105 ####[facility] [address] [place], [place], [address] Lipid Profileon 07-26-2024 Cholesterol [Mass/Vol] 118 mg/dL Normal 200 [facility] Comment on above: Result Comment: <200 mg/dL Desirable 200-240 mg/dL Borderline >240 mg/dL High Risk Performed By: #### L 501.9985, L506.0400, L100.0100, L501.9520, L500.4050, L500.4100, L506.1000, L503.0105 ####[facility] [address] [place], [address] Cholesterol in HDL [Mass/Vol] 57 mg/dL Normal [facility] Comment on above: Result Comment: The drugs N-Acetylcysteine and Metamizole may falsely depress this assay. Reference Range HDL <40 mg/dL Low HDL Cholesterol HDL >or= 60 mg/dL High HDL Cholesterol Performed By: #### L 501.9985, L506.0400, L100.0100, L501.9520, L500.4050, L500.4100, L506.1000, L503.0105 ####[facility] [address] [place], [address] Cholesterol in LDL [Mass/Vol] 24 mg/dL Normal 0-130 [facility] Comment on above: Performed By: #### L 501.9985, L506.0400, L100.0100, L501.9520, L500.4050, L500.4100, L506.1000, L503.0105 ####[facility] [address] [place], [address] Cholesterol in VLDL [Mass/Vol] 37 mg/dL Normal 5-40 [facility] Comment on above: Performed By: #### L 501.9985, L506.0400, L100.0100, L501.9520, L500.4050, L500.4100, L506.1000, L503.0105 ####[facility] [address] [place], [address] Triglyceride [Mass/Vol] 186 mg/dL Normal [facility] Comment on above: Result Comment: The drugs N-Acetylcysteine and Metamizole may falsely depress this assay. Serum Triglycerides Reference Interval Normal <150 mg/dL Borderline high 150 - 199 mg/dL High 200 - 499 mg/dL Very High > or = 500 mg/dL Performed By: #### L 501.9985, L506.0400, L100.0100, L501.9520, L500.4050, L500.4100, L506.1000, L503.0105 ####[facility] [address] [place], [address] T4 Free Directon 07-26-2024 T4 FREE DIRECT 0.79 ng/dL Normal 0.76-1.46 [facility] Comment on above: Performed By: #### L 501.9985, L506.0400, L100.0100, L501.9520, L500.4050, L500.4100, L506.1000, L503.0105 ####[facility] [address] [place], [place], [id number] Thyroid Stim Hormone (TSH)on 07-26-2024 TSH 4.550 uIU/mL High 0.358-3.740 [facility] Comment on above: Performed By: #### L 501.9985, L506.0400, L100.0100, L501.9520, L500.4050, L500.4100, L506.1000, L503.0105 ####[facility] [address] [place], [place], [id number] Vitamin B12on 07-26-2024 Cobalamin (Vitamin B12) [Mass/Vol] 436 pg/mL Normal 211-911 [facility] Comment on above: Performed By: #### L 501.9985, L506.0400, L100.0100, L501.9520, L500.4050, L500.4100, L506.1000, L503.0105 ####[facility] [address] [place], [place], [id number] Vitamin D,25 Hydroxyon 07-26 Vitamin D 25-OH 27.1 ng/mL Normal [facility] Comment on above: Result Comment: Ladi min D 25(OH) Status Range Deficiency <20 ng/mL (50nmol/L) Insufficiency 20 - 30 ng/mL (50 - 75 nmol/L) Sufficiency 30 - 100 ng/mL (75 - 250 nmol/L) Toxicity >100 ng/mL (>250 nmol/L) Performed By: #### L 501.9985, L506.0400, L100.0100, L501.9520, L500.4050, L500.4100, L506.1000, L503.0105 ####[facility] [address] [place], [place], [id number] CNTHERAPYon 01-18-2024 CNTHERAPY OT/PT/Speech Visit ( PTMDRG) DOUGLAS CALLAWAY JR ([id number]) 1955 M Date Time Provider Department 01/18/24 4:45 PM ROBERT KARLA ANSELMODRG Date Time Provider Department Center 01/18/2024 4:45 PM [id number] CASTRO PTMG [facility] Reason for Visit: PT Progress Note [1596] [...] injection (XYLOCAINE) - lactated ringers iv infusion [facility] 01-17-2024 [facility] Office Visit (AGGAST ACC) DOUGLAS CALLAWAY JR ([id number]) 1955 M Date Time Provider Department 01/17/24 2:30 PM KARLA SAUER AGGASTACC During your visit today, [...] ; CABG x 3 EGD 08/2020 at [facility] EGD WITH BIOPSY(S) 05/13/2023 Dr. Fajardo ERCP STENT PLACEMENT BILIARY/PANCREATIC DUCT 09/02/2021 Dr Yarbrough GI TRANSIT AND PRES CARLEY WIRELESS CAPSULE W/INTERP 01/08/2021 Smart Pill-delayed gastric emptying; INCISIONAL BIOPSY SKIN SINGLE LESION biopsy of mass over right eye; benign LAPAROSCOPIC CHOLECYSTECTOMY 09/02/2021 PER ORAL PYLOROMYOTOMY (POP) PROCEDURE (COMP [id number]) 06/11/2021 Dr. Bray REMV CATARACT EXTRACAP,INSERT LENS [...] No Recent (more content not included)... Normal [facility] CNTHERAPYon 01-10-2024 CNTHERAPY OT/PT/Speech Visit ( PTMDRG) DOUGLAS CALLAWAY JR ([id number]) 1955 M Date Time Provider Department 01/10/24 11:30 AM MARÍA OROSCO PTMSOTERO Date Time Provider Department [place] 01/10/2024 11:30 AM [id number] OROSCO PTMDRG [facility] Reason for Visit: Physical Therapy [503] Primary Visit Diagnosis:Diabetes mellitus without complication (HCC) [E11.9] Other Visit Diagnoses:Weakness of both lower extremities [R29.898] Abnormality of gait [R26.9] Imbalance [R26.89] Allergies As of Date: 01/10/2024 (No Known Allergies) Date Reviewed: 12/29/2023 Reviewed by: Lavonne Nava, YUN - Fully Assessed Prescriptions as of 01/10/2024 - dapagliflozin propanediol (FARXIGA) 10 mg tablet Take 1 tablet by mouth every afternoon. - dapagliflozin propanediol (FARXIGA) 10 mg tablet - pantoprazole DR (PROTONIX) 40 mg tablet take 1 tablet by mouth twice a day - obyurq-skfliabe-lvcrege (CREON 36) 36,000-114,000- 180,000 unit delayed release capsule Take 2 caps by mouth 3 times daily with meals and 1 cap with each snack. Take 1st cap before meal starts and the 2nd cap skilled nursing through. - primidone (MYSOLINE) 50 mg tablet [...] daily to BE TAKEN ALONG WITH 200 CA... (REFER TO PRESCRIPTION NOTES). - rosuvastatin (CRESTOR) [...] injection (XYLOCAINE) - lactated ringers iv infusion [facility] CNTHERAPYon 01-06-2024 CNTHERAPY OT/PT/Speech Visit ( PTMDRG) DOUGLAS CALLAWAY JR ([id number]) 1955 M Date Time Provider Department 01/06/24 11:30 AM KARLA CASTRO Date Time Provider Department Center 01/06/2024 11:30 AM [id number] CASTRO PTMSOTERO [facility] Reason for Visit: Physical Therapy [503] Primary [...] tablet by mouth twice a day - dkvwsd-kuwqxeen-fsjqoxz (CREON 36) 36,000-114,000- 180,000 unit delayed release capsule Take 2 caps by mouth 3 times daily with meals and 1 cap with each snack. Take 1st cap before meal starts and the 2nd cap skilled nursing through. - primidone (MYSOLINE) 50 mg tablet [...] daily to BE TAKEN ALONG WITH 200 CA... (REFER TO PRESCRIPTION NOTES). - rosuvastatin (CRESTOR) [...] injection (XYLOCAINE) - lactated ringers iv infusion [facility] [id number] 01-05-2024 [id number] O ID: [id number] Author: ELBA SAMANIEGO PT, DELBERT Service: ? Author Type: Physical Therapist Type: [id number] Filed: 01/05/2024 08:21 Note Text: [facility] Therapy Physical Therapy Plan of Care Certification Patient Name: Douglas Callaway JR : 1955 [facility] #: [id number] Date: 12/15/2023 To: Sheryl Bassett MD From [...] Patient to be seen for Therapeutic exercise (95466), Neuromuscular re-education (26892), Manual therapy (60925), Therapeutic activities (32554), Self-shelter management (40878), Gait Training (45567), Patient/Family/Caregiver Education PLAN FOR NEXT VISIT: 6 min walk test; Check if promis due For further details regarding this patient refer to the Physical Therapy electronically documented visit dated 12/15/2023. Provider Attestation I have reviewed the treatment plan for Douglas Callaway , C[facility]# [id number] for the period of 12/18/23 -- 02/13/24, established on 12/15/2023. Signature certifies the need for therapy services. [facility] SURGICAL PATHOLOGYOrdered By : Ariane Garrido on 12-31-2023 Case Report Surgical Pathology R eport Case: [id number] Authorizing Provider: Naima Lee MD Collected: 12/29/2023 [...] inflammation F) - Rectum, Polyp, r/o adenoma [facility] Work Phone: FINAL DIAGNOSIS q8oqkPLnBWIjkVHoUJAx NVxhbnNp UTNwnFUdG4DkbareLTrwSE6zMH7q cSfrhXJpyMGoJKBoCwDau2onh064 aRGky5dgJUMHghcbwSd4kHzfP87b h0B1VbqgL38idLPwPGB3DCCyIXWh nVLfPCNiEYM9KMPzqSDrE5scHHEb VQ9wniduRWwqOPsdESYwnGE1UZBx fWJlZ5CoQJMhNUhcSSEtijr8PaVc Ki6qtDOskUdqLKwlEFZtWQAiSPpl XTPgDqLnRL0uJSBtXT7ivjHrt9Sv Q91ba18aEEOvtDdeWZuoNcjqQaup nWZ1VeskYYOgVFAuYFgtTM31koDl JvS2hZQ8rSJoOKSiBV6leIFjtRZi XTHitzUSDmJzY40sgCafIa50UTjm BSHvcv3xyrLeUJzcIRWdPYOpjY0p i9y0TCAcvlPnU18umJloyX61TFJ5 gR9ixYDctAWyl1Cbd2b4bZWzyeVf kHXrzh4mjCjhQGJtfWRzPCJmc67a kAVjYHYznkLSMvPmVibmsKYzF04b o69zPAGcd4AluVorsZSkMQ0Aj5ku dzamPD50S19uETO7aZAsGS6bVUFt RIvfp8V2cORnGBu2ZDKjwCtcracb CLJgKI3kPCS8nJImyoUlEQ2kRI4m Z3Xcd5UhbWbmDVMnhVv7pOWyxEXc GSIuatKUToIxKALbVC9qyJ7nOILp fC9iDAJuq8c7jElgAguezMD2MwWZ GKWvcITfJS4QfoYuaRTkxHRfi4Cx lPKdaKrsfxLeIEWvo92fVCAcgiiz DDOxCD0tVYwcAmAnQ28ns83oDZEj t3YriSsafPBpCA9Gr0cqnafvJB63 O64sHWK9zFWhOV8oUBQzGOtjy9G1 zWGaMQn9RHQtzXvkvwjsGOXrHO2b YEP7uLXazmKpIX4lNN3xN2Uko6Gf wTjhHFTvgTu5tLGvvNXnZUYyweRT FeVbGnHykMVtQBTza7a5yAanHvmm vID2RxrpIBQiXTIuFSabSC83ruIb GgH7yYR8sBHvOZBmEW5taSCywKDq XHBhclxwYXJ9 [facility] Work Phone: Gross Description t4knjWXvPWGznJINLOO7 VVZwUG1h sGpmiXd3aVqdRNOqmvK5tPKsVGwc m3gcDIT7k2gzvxIYEhdwRROiQM1x TAiwPHSqNM6rKcLwUMWnAjUhFKZr xGLphhJvUuOeJMGmaXEyoPE6AMPr WX3jdiofRQbzAOktQVMchuT6GXXo dHAoG5DcHSHmSS2mkucqGLL6LKBO IgoqOe0meCWgyWbsZtMdGbCzXILq YAAoMFLqh1uqcmFYntbvpMm7xR0P QNXlA2CzNB1Fs7beHWKkmKNjMDT3 RZtmt4bbYTozKUA7FBPeVDWkCODl XF4IDnRoMELdFpe3YhG7VpH9KPe4 XKKXBZLhFCR2UwS0RTOqODj5ZAtz XFxuaCBcXHQgMSBcXGZsIFxcbmN9 c9huBUQqsEWbYRT6QLrwy7wgTLgl XRQ9BZHaLkTsBDEoDS0RMnClAMXw Jbk1NqL1IlX7REx1VVKOZzQmTnHy YHMyQhO9ZpAdCWb7YGg8QDmTKtIp HopmVJgeVSoiDEN3DFV2XcQqBXAm MsRbVHVjFXZgZWfakFHgZM1qdZyz DMOuLR2ATZJlJTqpOAKyTcJhEN6s F46yv76zNDKwHG5vgcHdv5DlTGXa lYjuMWt0teOgTFRyklLERhwwXGKp ZE4KLNAjAKcvWTk7drOdCFXlHmHe XEAcJ61zl7VQf6IsOC3CAMz3puTs bdQJAprvttZnBYYwO2YbgxOrDIdq LPMtux8cvXbhPJYpZWRhwAl5sNJt QKReJGhgXY69oiWrTiQ9NQ1cgB7i iCSdiNMtqEzub9JvJJJeobwshbmf qJ9kc6p5PKAiur2sGYNqZmZ8VWXg IUY2BNWfKKQqoSW9ehKeIgZfcOQu TjQmbLQzHtXmY61qIF0oCXR6RKfp kzLfvhUfra68BNVhFMAdMPXvfM2q jdNcPmGkRADpF4Mep05mVOAfOEUw z9NmJD6wUGsaCLmbmsrhmiBngQTx rP0uxbZgYRBzLWEqc4CeeVOeXgCR cQPxf62yqJmbwnOepPTfmL7tmhBq UFBrZZ0quLHgQFR3dG6uSKGuIVUf qSMmkYxuf5ViwNt5xYXlFVyrTYVa pb1vhSmmVDbwLKWdqnPuZCVhf7Vq jJHdpn7cpLSkZF3AEVLhibIWQurn XVIzUVHmxPVEl9NzDLDUMncnrDpo MfVmsFFmLhK5QYCjjGNnFPK1YB6g fGjoDGOySFz5OGudTMCbM2TjU0Do XFxzZyBcXGlkIDUxMDAyIFxcZGIg P1NQPFSoNeA9PSxdQcneFFn8BQa1 YY7LSqBcKDR4UBVpOlLdQxHbPDz3 FEjxOO4NKYWvQbXnYJQ9SluuZTI3 WLa7EHphvJZfNVkox3WxPoXtBESu EGgkegT7PVCelpFmt9NcGDNkWYWa W3efJoBhDHSBJtmwnlDrKYYsTURr WFncCCEsd9IwJJJWCQMohB7bdURY fWA6lQlqUucmkJE1NQSvftPFSxyp IEDgIL5FSGIhMMecCZg1xfIdNFAv MlJtCWFlY72ln5GTl0NtQI3QANx0 fzExmjzfHcOiGYNqrLLVk2WsUZyr WPZuHXWgvXHZx0FdFUVOSxqimfZp EEZsA3JqmnAlIFeqBUGqvz5okUzg DQVyZFSbqGz2oLOuZAMzkZYtBMYy m4KusZYhEZInc9K5EMIlm4D0WHZl K2xlGBmagYojAxI4biEvQmfisBQm CwRdmOWrNfFlP25dWLVifYMskAix f1PsdKk3tCWmVVlrUG1iABVnVWDb JTB9WT6ZFgjtyDnwVyFehFGmTxG3 QNXijWMiNHN9UO9bcAaqEIJeFLa2 YXhiBLHpN0VyV0YbWNalCwScPBzq HFEaALUaTLavQHKmB9DSMOQjXdK6 OCwyNbmhFWg1KYf3WA2QSqWfFEC1 OEAhJiKzHVPeWSm0PPinPD1VCAYo IfNbQOS6NZa5ZDW9FVs2GPpvhEOr BJqkz3IeDyRbQGGrMXulfzI7IPAr lqCcl2NbCHFsANJuT7okBnOfCGAH TdvhvlFvBEUqEOJguQ9jOWZUrRzc wNhkJtnqhNZ3MAEltpJYPedoOAIa ZO4DQMUfHEgkYCy2amUzAHNrCgZs YURoA82of1VQc9DxWB6WQGj8ttSp pddvBdBjEJZirFNFl2OgINjnWAVs HKAyyLZIy5IvXSBBVrqksoKfKLMo A5JewzDxCTsjRYTxop9bsTjnMWNm UTAhoLl1qZLcDAYrpYBnFJJgd5En uIGqSPTyx6K6NMMug2F5WTHdP4id CGcdtAppAvE9vePrLndioQSgUmZv bFCmNbTmY97oLLVfnZYaePrbk9Hq oIf2iGNqEDuqHM3yMAKwWOVyTHE1 IG6BFuanpDpuRcTldXRuSkG9TNTn gTSwFOW4KF1urQsmVFGhNJm8NCje RFHzO0RbG7VgPNzjUyXrGPgoQDAm BFMpPAbrNGIfR4ZWXJXxBxF6YByz ZzyyJMx4GGg5JM1EUpOcLGU8UTEb DOR0RWYaIJy0BBfxPG8QRQCpVjMz TQE4JVHoCRQ8MLu2FZqcpUNjHWtz t3HkStReCNAdAKzdibE1MAZhnbWl p2TmTDDzFCKvG7pdBrYsYZPRXmou ylPlLVZcALBmlP9pIOPSx8XoxhZx zcctWX2zeCBndTXgZP9UEKComqRd LYaykZhggV6oeWCxN5nmUpEoGfpb cGljTmVzdERvYzEgDQpcbHRycGFy MGByAyXqGDOgB6wyHeXiOXAnVxAb DQTwN4kjUVDoGL5ZVENdEgWgMgGl XKg2KEMtsQ5yTv3psHLtzY0oKCTz QJH9kjKiuYMyXICyy7BtvQPzSANl w1N1RFUwb6C4NHCdM3wjUZzskLfw UcA4ueCyIqWccAUnSdUkgVLkMcNh B96eSHIltAQvzCpfr8GffSh2cFIe MXgqHR2xUSAnAFUoCZZ3YZ4NXgqd fEdwBbLnbIHoXkO1ARXchRBjTOK3 IH0tfXckWKZtTEv9BOtgWCPrI4Kz P6OgFUxzCoUuWQueBSEvDHMpGGay MKDeC1ANNEJhNdW6JKkaTgitVTc0 VBo5XS0DWsNgRVT3XXBuBMlhMsLe BVx5TToxOW7UCAAiQjAuDIP8UXZ0 RKH6RJv1FTagnQCePGcpp7DiQoTt GAZaVSyemdN8WSTcvmOud2JuEUCa PYQzP0ohDfVtIAKOVqajwaJlLNDh ODQtqJ4hNXHZBDM5UBDBcL0kn7sw cUKhKG5OOEQeckLxGSvhuMyndT3k qFZxR3whLhBkKerfgEjvRoTdfUWb YzEgDQpcbHRycGFyXHNiMzBcZXBp P0lpMpJvKRDxOhXcFAInN2mqTLLo HS9GONUgXwBwKnHcSRn8XMPosN6e Yy6kdYSryR0mCSPeFXV6tdLirUZb OXLau6XmpVFtIBLss2L2AVMoo8I8 CRIdF1gxKBiqhGxoTrY9rtJcDvqh rCJxYpBuiJPxBbUpN56gHWRxoQMt rZcbu0MxnGu0kWToFLrfEB8cGKBv KJKbVMA5PY1QOeoisPlrRiOjcUWd PhM8KLMthITsVUH8RS6hlFlkJSGc BHb1MPzzOLBaD3QdM0MvVMnoIqDl KPdmSWRyTPYpRAcrCVCiS8LSNIRv VmB7IZlqPmuxGFk6CMj2UH5XCdHx CUO6VVCuDsM3CCFbHTv0TUzhDN9Y MPVuNcKwIVK1TID4TCV2KXj9PQgc dFYwNKhly3ChNlZrTMSrUMxvdfW6 VJAtlxHyd9ZbIAEeCRUtW3lxHoCc VYAJSphtftNzOVYsMVAwR8J6kQfo GI9zdYVayQIqPO9SAXOoxeEgZNtl cZexaW0naYOeW9fjBvJmHahfpLts TmVzdERvYzEgDQpcbHRycGFyXHNi DzNcUCZxA7dwKhAdLE1FOQYyJaPd IrMwQXk4YJSzcR5nVk1jpFGszQ1t TOIpDP41hUPzjXtqMMOsU34csdWh QR4bOBFisiQlg8r5gR2nHOZ3sPXo cDJcipRsM0iqNuQsczUimWfnBQWp t61tID83CWtzUW38DZizST8pAEUz GTOmKRYtOKU1OYNaJHM1WWHdOFMb dA8lHb0al6MfaGswJFBvFOXon0Jr ZW3zLQjhVNkurdBlMX0dONXim1Bq iEmothOySMKsGY2klNKlBnQTpYEc jUHqV9RdTGKjVOMklEFxkdCczeNt HnatOKF4LMIgPCJcFJTvaDUacRXw TYOdXMEgyJRkluWpltTzos68CXDn V2Nwd46rVI3uEE35QHwmpMDrdXQt vTM9BVBlwC7mHi0vdLDtvC0xjD9n Szl0QKTiNDXlXKD0ISZeLXWaasTL ErjxUBZmIIr1nnNbrdDCOdejSSAr DQogXHBhciANClxwYXIgDQpTUyBB cHJpbCAyNCwgMjAyNCAxMToxOSBQ XTwfXQKrHXzanEGmIW8FG5Dgs5Xg MTnrwTqvDUOsr61smBRsKl5ziYMy DCZ4XSAjIXItsSLpVGUNuZdmuKPm FXb0PXCeUPFpnZzuWFQ2PB5uGMBv FEKmdHBsOSpvO2awTWGiREWtxETc OO9EHSJpIhJqDSYqK8sbJLZhQE5Y JRVrzRYTBEK3FQ6zNTjnQKCaC8Iw Y6KwyzX8a2veuEmne6CkmBCyIZ7m aFPoNJ2JADSeruTtLTiyKjMuFeVA Cn0= [facility] Work Phone: Performing Lab l1gkgWLmIRIvbXXfLkKh MDAwXGFu k5oyZTBjoKEeFcCuRgRqOiXuYsbj xVMgEGKhRyPih5qmp078gQFoc1gv IYUmNnG6jGXeNAVphHUpI158HOYw DGqhc9grh2HkEZOnxKOqq8X4SXOL sqtjiYp5tBftP36dt5Q7RbmzD4qp VTUyKWWkG9JyHQ8zBPEpIim2UDJ8 HCH2JEImXFMjD3LcVQ8kFHUolMIa QCd9f0ccoDtmSEUbDBW5l6oyNHcp atOlNA2rnb1wwWu5l2tzlyAjDXRa EDCzfJYTHNDpZ0XqrDegBo4tiAy9 uUfxIgjwXWU4Vnq1EI1onn06mto2 cYcdOIQyhvgnPtN4VXfrCYIcaxlm DLq8CChuIOXucXQ5THWohFHkW1Va RMnrUP3ashx4ECC9YRdmIWJaLxE4 KCYkfMGdIMRlvOwjPXhlk897UZI4 UaBzZV9tB2Egs8P5mE7pgUFqIGLo dKQkIlXbDYMjid2yhQUgOStyv5Qs TAQ0gyF1sVMrbUXdOZQtRF94Ftap f1DaEyhym4QuX24yqSG0GUvsc5bf QX5hLhT5vnPoQUpfw6njrX3nAwD4 BOdzBU6oRW3dMUNohX5kgzwaNSCx DpHqinrfJGFmlLezfdSuUc5vrQje ADP6IMofU2fhxT8rQqV9OMcjI9ui wO9qZIk5ZLyevIS3LTGgiN0vZA7t gwnpk6vwWVozKPkyGAWcyeL3qjXr YWLlnLEgV7NamY2mZDTeYS3krgdy k1ceRBJ9SQtoHNIcCWK5FzKeHOZw i8Hbfrm7NfKlj4MboTBnOUqyK55v l372PDRaxoPcD6mcvRHpzbeftUYy tpcxRCdyrbQ7MMTvRYRdZWufEVQv XGZzMjJcbGFuZzEwMzNcaGljaFxm YTnsSpNmBXTkWPhjE5llOzOaUcNp VaTQnLDgrs4gaJpfAMzhzPDqyQMd dCD2nW0wGXMtqfHhez7tJUMzhJEM iVL8YXcqffTpP7kkshxfMIZ6CHFi OOY4L1flXOFFkyLeUUFnYHFuqIOn XZDJOZD5LGO8UBOrBJEGXLLmLPH5 BNG9SULjBKKrqJBgUVRrdvbsKFSk OABcNOkjTQOmJIQjUtVylXruuX2f YsFpLeWyIabeAN2vJGVnI5iwuYEl GUUpDKReI6osZoIdoD6yyKbyEIic ZjJcZnMyMlxsdHJjaCBMYWJvcmF0 p9E2GWgrjSDebxbgWPmcbmDwJNjb tlksNYRaCCqiJ3bjTrUnIUWtzWod UBhbw2MuRCYrDDWmRcBpZUyjPPL0 x9O0REnacTUlvdZBHtYQUW1ebTNt ppgfET4WOdtpFJV8 [facility] Work Phone: [facility] Work Phone: [phone] 12-29-2023 [id number] HNO ID: [id number] Author: LAVONNE NAVA RN Service: ? Author Type: Registered Nurse Type: [id number] Filed: 12/29/2023 12:22 Note Text: The patient received a copy of Colonoscopy discharge instructions that contain information for how to contact the physician who performed the procedure and when to seek medical care. [facility] ANES POSTPROC EVALon 024 ANES POSTPROC EVAL HNO ID: [id number] Author: TIFFANIE HOPPER APRN.CRNA Service: Anesthesiology Author Type: Nurse Credit Historian Type: Anesthesia Postprocedure Evaluation Filed: 12/29/2023 12:21 [...] December 29, 2023 TIME: 12:21 PM CSN: [id number] [facility] Colonoscopyon 12-29-2023 Colonoscopy [facility] Patient Name: Douglas Callaway Procedure Date: 12/29/2023 11:06 AM Date of : 1955 Admit Type: Outpatient Age: 68 Room: [place] [address] Gender: Male Note Status: Finalized Attending MD: Naima Lee MD, [id number] Procedure: Colonoscopy Indications: Screening in patient at [...] previously scheduled. Procedure Code(s): --- Professional --- 03086, Colonoscopy, flexible; with removal of tumor(s), polyp(s), or other lesion(s) by snare technique 79978, 59, Colonoscopy, flexible; with biopsy, single or multiple CPT copyright 2020 [employer]. All rights reserved. The codes documented in this report are preliminary and upon bilingual legal assistant review may be revised to meet current compliance requirements. Attending Participation: I pers (more content not included)... [facility] Flexible sigmoidoscopy study on 12-29-2023 [facility] Patient Name: Douglas Callaway Procedure Date: 12/29/2023 11:06 AM Date of : 1955 Admit Type: Outpatient Age: 68 Room: [place] [address] Gender: Male Note Status: Finalized Attending MD: Naima Lee MD, [id number] Procedure: Colonoscopy Indications: Screening in patient at [...] in the (more content not included)... PROVATION [facility] Radiology Study observation (narrative) [facility] GLUCOSE, BLOOD (POC)on 12-28 Glucose [Mass/Vol] 138 mg/dL Abnormal 74 - 99 mg/dL [facility] Comment on above: [facility] S[place]ann [address]ett [place], [place], [address] The Accu-Chek Inform II glucose meter has [...] Interpretation and review of laboratory results Abnormal [facility] HISTORY PHYSICALon HISTORY PHYSICAL HNO ID: [id number] Author: NAIMA LEE MD Service: Gastroenterology Author [...] ; CABG x 3 EGD 08/2020 at [facility] EGD WITH BIOPSY(S) 05/13/2023 Dr. Fajardo ERCP STENT PLACEMENT BILIARY/PANCREATIC DUCT 09/02/2021 Dr Yarbrough GI TRANSIT AND PRES CARLEY WIRELESS CAPSULE W/INTERP 01/08/2021 Smart Pill-delayed gastric emptying; INCISIONAL BIOPSY SKIN SINGLE LESION biopsy of mass over right eye; benign LAPAROSCOPIC CHOLECYSTECTOMY 09/02/2021 PER ORAL PYLOROMYOTOMY (POP) PROCEDURE (COMP 21418) 06/11/2021 Dr. Bray REMV CATARACT EXTRACAP,INSERT LENS Bilateral 2016 SHOULDER SURGERY HX TONSILLECTOMY HX OBJECTIVE: PHYSICAL EXAM: VITALS: There were no vitals taken for this visit. General appearance: AANDOx3 Respiratory: Normal chest expansion. No audible wheezes. CVS: No shortness of breath, no extremity edema. Regular pulse. Plan: OK to proceed with endoscopy. SIGNATURE: Naima Lee MD PATIENT NAME: Douglas Callaway JR Normal [facility] SURGICAL PATHOLOGYon 024 CASE REPORT [facility] Comment on above: Order Comment: Speci men Type: TISSUE SPECIMENOrdering Facility: [facility] Address: [address] [place] [address] Result Comment: Surg ica Pathology Report Case: [id number] Authorizing Provider: Naima Lee MD Collected: 12/29/2023 [...] Polyp, r/o adenoma Performed By: #### S ####[facility] LABCLIA [id number] [address] FINAL DIAGNOSIS [facility] Comment on above: Order Comment: Speci men Type: TISSUE SPECIMENOrdering Facility: [facility] Address: [address] [place] [address] Result Comment: A. T ransverse colon, polyp [...] of tubular adenoma Performed By: #### S ####[facility] LABCLIA [id number] [place] [address] [place] FINAL PERFORMING LAB Normal [facility] Comment on above: Order Comment: Speci men Type: TISSUE SPECIMENOrdering Facility: [facility] Address: [address] [place] [address] Result Comment: Diag nostic interpretation performed at [facility], [address] [address] CLIA# [id number] Supervisor Customer Complaint Service: Mitch Lopez M.D. Performed By: #### S ####[facility] LABCLIA [id number] [place] [address] [place] GROSS DESCRIPTION [facility] Comment on above: Order Comment: Speci men Type: TISSUE SPECIMENOrdering Facility: [facility] Address: [address] [place] [address] Result Comment: A. C olon, Transverse, Polyp [...] 2023 11:19 PM Gross examination performed at [facility], [address] [place] [address] Performed By: #### S ####[facility] LABCLIA [id number] [place] [id number] [place] CNCOon 12-23-2023 CNCO Letter Text [facility] CNTHERAPYon 12-15-2023 CNTHERAPY OT/PT/Speech Visit ( PTMDRG) DOUGLAS CALLAWAY JR ([id number]) 1955 M Date Time Provider Department 12/15/23 1:30 PM ELBA SAMANIEGO Date Time Provider Department Center 12/15/2023 1:30 PM [id number] SAMANIEGO PTMSOTERO [facility] Reason for Visit: PT Progress Note [1596] [...] tablet by mouth twice a day - bcvdjz-tmizrewx-bctwbuy (CREON 36) 36,000-114,000- 180,000 unit delayed release capsule Take 2 caps by mouth 3 times daily with meals and 1 cap with each snack. Take 1st cap before meal starts and the 2nd cap skilled nursing through. - primidone (MYSOLINE) 50 mg tablet [...] daily to BE TAKEN ALONG WITH 200 CA... (REFER TO PRESCRIPTION NOTES). - rosuvastatin (CRESTOR) [...] (XYLOCAINE) - lactated ringers iv infusion Normal [facility] PRE-OPon 12-14-2023 [facility] PRE-OP HNO ID: [id number] Author: TIFFANIE HOPPER APRN.CRNA Service: Anesthesiology Author Type: Nurse Credit Historian Type: Anesthesia Preprocedure Evaluation Filed: 12/29/2023 11:16 Note Text: ANESTHESIOLOGY DAY OF SURGERY NOTE : 1955 Procedure Information Date/Time: 12/29/23 1100 Scheduled providers: Naima Lee MD Procedure: COLONOSCOPY DIAGNOSTIC Location: Ambulatory Surgery Estimated body mass index is 24.37 kg/m? as calculated from the following: Height as of 10/26/23: 172.7 cm (5' 8"). Weight as of 10/26/23: 72.7 kg (160 [...] and consent discussed: yes. Patient / Responsible Democrat agrees to proceed: yes Patient / Surrogate [...] tablet by mouth twice a day - mkjcyr-adqszayc-gacsjwd (CREON 36) 36,000-114,000- 180,000 unit delayed release capsule Take 2 caps by mouth 3 times daily with meals and 1 cap with each snack. Take 1st cap before meal starts and the 2nd cap skilled nursing through. - primidone (MYSOLINE) 50 mg tablet [...] daily to BE TAKEN ALONG WITH 200 CA... (REFER TO PRESCRIPTION NOTES). - rosuvastatin (CRESTOR) [...] (CRESTOR) 40 (more content not included)... Normal [facility] CNTHERAPYon 12-09-2023 CNTHERAPY OT/PT/Speech Visit ( PTMDRG) CESIADOUGLAS VIVEROS ([id number]) 1955 M Date Time Provider Department 12/09/23 1:15 PM MARÍA OROSCOG Date Time Provider Department [place] 12/09/2023 1:15 PM [id number] OROSCO PTMG [facility] Reason for Visit: Physical Therapy [503] Primary [...] tablet by mouth twice a day - mozach-flrsvxkk-lyjxwbq (CREON 36) 36,000-114,000- 180,000 unit delayed release capsule Take 2 caps by mouth 3 times daily with meals and 1 cap with each snack. Take 1st cap before meal starts and the 2nd cap skilled nursing through. - primidone (MYSOLINE) 50 mg tablet [...] daily to BE TAKEN ALONG WITH 200 CA... (REFER TO PRESCRIPTION NOTES). - rosuvastatin (CRESTOR) [...] Take 75 mg by mouth twice daily. 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 and working on turning in [...] - 2 sets - 3 reps Normal [facility] CNTHERAPYon 11-29-2023 CNTHERAPY OT/PT/Speech Visit ( PTMDRG) DOUGLAS CALLAWAY JR ([id number]) 1955 M Date Time Provider Department 11/29/23 1:00 PM MARÍA OROSCO PTMG Date Time Provider Department Center 11/29/2023 1:00 PM [id number] OROSCO PTMDRG [facility] Reason for Visit: Physical Therapy [503] Primary [...] tablet by mouth twice a day - yeijdi-erlalhid-iytfsxh (CREON 36) 36,000-114,000- 180,000 unit delayed release capsule Take 2 caps by mouth 3 times daily with meals and 1 cap with each snack. Take 1st cap before meal starts and the 2nd cap skilled nursing through. - primidone (MYSOLINE) 50 mg tablet [...] daily to BE TAKEN ALONG WITH 200 CA... (REFER TO PRESCRIPTION NOTES). - rosuvastatin (CRESTOR) [...] Take 75 mg by mouth twice daily. [facility] CNTHERAPYon 11-24-2023 CNTHERAPY OT/PT/Speech Visit ( PTMDRG) DOUGLAS CALLAWAY JR ([id number]) 1955 M Date Time Provider Department 11/24/23 5:00 PM MARÍA OROSCO PTMSOTERO Date Time Provider Department Center 11/24/2023 5:00 PM [id number] OROSCO PTMSOTERO [facility] Reason for Visit: Physical Therapy [503] Primary [...] tablet by mouth twice a day - zhkgbv-xhsbmbyg-qtdngwe (CREON 36) 36,000-114,000- 180,000 unit delayed release capsule Take 2 caps by mouth 3 times daily with meals and 1 cap with each snack. Take 1st cap before meal starts and the 2nd cap skilled nursing through. - primidone (MYSOLINE) 50 mg tablet [...] daily to BE TAKEN ALONG WITH 200 CA... (REFER TO PRESCRIPTION NOTES). - rosuvastatin (CRESTOR) [...] Take 75 mg by mouth twice daily. [facility] [id number] 11-18-2023 [id number] [facility] ID: [id number] Author: KARLA CASTRO PT, EMELINAT Service: ? Author Type: Physical Therapist Type: [id number] Filed: 11/18/2023 15:53 Note Text: [facility] Physical Therapy Plan of Care Certification Patient Name: Douglas Callaway JR : 1955 [facility] #: [id number] Date: 11/18/2023 To: Sheryl Bassett MD From [...] Patient to be seen for Therapeutic exercise (89384), Neuromuscular re-education (53569), Manual therapy (62320), Therapeutic activities (85291), Self-shelter management (57229), Gait Training (61514), Patient/Family/Caregiver Education PLAN FOR NEXT VISIT: Work on stair safety, balance. LE strengthening, turning For further details regarding this patient refer to the Physical Therapy electronically documented visit dated 11/18/2023. Provider Attestation I have reviewed the treatment plan for Douglas Callaway JR, [facility]# [id number] for the period of 11/07/23 -- 12/18/23, established on 11/18/2023. Signature certifies the need for therapy services. [facility] CNTHERAPYon 11-18-2023 CNTHERAPY OT/PT/Speech Visit ( PTMDRG) DOUGLAS CALLAWAY JR ([id number]) 1955 M Date Time Provider Department 11/18/23 2:00 PM KARLA CASTRO PT[facility] Date Time Provider Department Center 11/18/2023 2:00 PM [id number] CASTRO PTMDRG [facility] Reason for Visit: PT Progress Note [1596] [...] tablet by mouth twice a day - ptczhb-oypglqry-sxozeec (CREON 36) 36,000-114,000- 180,000 unit delayed release capsule Take 2 caps by mouth 3 times daily with meals and 1 cap with each snack. Take 1st cap before meal starts and the 2nd cap skilled nursing through. - primidone (MYSOLINE) 50 mg tablet [...] daily to BE TAKEN ALONG WITH 200 CA... (REFER TO PRESCRIPTION NOTES). - rosuvastatin (CRESTOR) [...] Take 75 mg by mouth twice daily. [facility] 11-15-2023 [facility] Telephone (AGGASTACC ) DOUGLAS CALLAWAY JR ([id number]) 1955 M Date Time Provider Department 11/15/23 [...] tablet by mouth twice a day - zyvwas-plqtzhvc-jkikvco (CREON 36) 36,000-114,000- 180,000 unit delayed release capsule Take 2 caps by mouth 3 times daily with meals and 1 cap with each snack. Take 1st cap before meal starts and the 2nd cap skilled nursing through. - primidone (MYSOLINE) 50 mg tablet [...] daily to BE TAKEN ALONG WITH 200 CA... (REFER TO PRESCRIPTION NOTES). - rosuvastatin (CRESTOR) [...] by PRAVIN MUKHERJEE on 11/15/23 [facility] 11-11-2023 [facility] Telephone (AGGASTACC ) DOUGLAS CALLAWAY JR ([id number]) 1955 M Date Time Provider Department 11/11/23 KARLA SAUER AGGASTACC During your visit today, we recorded the following information about you: Pravin Mukherjee 11/11/2023 1:18 PM Signed called pt left voice mail message asking the patient to call our office back to schedule colon Pravin Mukherjee Allergies As of Date: 11/11/2023 (No Known Allergies) Date Reviewed: 10/26/2023 Reviewed by: Ross Dimas MA - Fully Assessed Reason for Visit: Appointment [186] Prescriptions as of 11/11/2023 - pantoprazole DR (PROTONIX) 40 mg tablet take 1 tablet by mouth twice a day - eyjlun-jvktmeqm-jfxapbx (CREON 36) 36,000-114,000- 180,000 unit delayed release capsule Take 2 caps by mouth 3 times daily with meals and 1 cap with each snack. Take 1st cap before meal starts and the 2nd cap skilled nursing through. - primidone (MYSOLINE) 50 mg tablet [...] daily to BE TAKEN ALONG WITH 200 CA... (REFER TO PRESCRIPTION NOTES). - rosuvastatin (CRESTOR) [...] Encounter Status:Closed by PRAVIN MUKHERJEE on 11/11/23 [facility] CNTHERAPYon 11-11-2023 CNTHERAPY OT/PT/Speech Visit ( PTMDRG) DOUGLAS CALLAWAY JR ([id number]) 1955 M Date Time Provider Department 11/11/23 1:15 PM MARÍA OROSCO [facility] Date Time Provider Department Center 11/11/2023 1:15 PM [id number] OROSCO PT[facility] Reason for Visit: Physical Therapy [503] Primary [...] tablet by mouth twice a day - etkczg-xjxjktan-nxbiihn (CREON 36) 36,000-114,000- 180,000 unit delayed release capsule Take 2 caps by mouth 3 times daily with meals and 1 cap with each snack. Take 1st cap before meal starts and the 2nd cap skilled nursing through. - primidone (MYSOLINE) 50 mg tablet [...] daily to BE TAKEN ALONG WITH 200 CA... (REFER TO PRESCRIPTION NOTES). - rosuvastatin (CRESTOR) [...] Take 75 mg by mouth twice daily. [facility] 11-05-2023 [facility] Telephone (AGGASTACC ) DOUGLAS CALLAWAY JR ([id number]) 1955 M Date Time Provider Department 11/05/23 KARLA SAUER KyruusASTACC During your visit today, we recorded the [...] our office back to review medication Pravin Fátima Quinn MA 11/10/2023 9:49 AM Addendum The patient called the office back and got the message below. The patient understood and would like to have the colonoscopy done. Please advise Fátima Martinez MA November 10, 2023 9:49 AM Krala Sauer PA-C 11/10/2023 10:43 AM Signed Addended by: KARLA SAUER on: 11/10/2023 10:43 AM Modules accepted: Orders Allergies As of Date: 11/05/2023 (No Known Allergies) Date Reviewed: 10/26/2023 Reviewed by: Ross Dimas MA - Fully Assessed Reason for Visit: Medication Problem [65] Primary Visit Diagnosis:Diarrhea, unspecified type [R19.7] Order(s):COLONOSCOPY DIAGNOSTIC [GI11] Order #: [id number] FUTURE Prescriptions as of 11/11/2023 - pantoprazole DR (PROTONIX) 40 mg tablet take 1 tablet by mouth twice a day - kvcwhk-pmqrzdqe-hjsarol (CREON 36) 36,000-114,000- 180,000 unit delayed release capsule Take 2 caps by mouth 3 times daily with meals and 1 cap with each snack. Take 1st cap before meal starts and the 2nd cap skilled nursing through. - primidone (MYSOLINE) 50 mg tablet [...] daily to BE TAKEN ALONG WITH 200 CA... (REFER TO PRESCRIPTION NOTES). - rosuvastatin (CRESTOR) [...] Status:Closed by PRAVIN MUKHERJEE on 11/08/23 Normal [facility] MRI BRAIN WO IVCONon 024 MRI BRAIN WO IVCON * * *Final Report* * * DATE OF EXAM: Nov 05 2023 1:40PM [facility] 0294 - MRI BRAIN WO IVCON [...] veins, and dural venous sinuses are patent. Lead Security Officer: [facility] Transcribe Date/Time: Dec 02 2023 2:15P Dictated by : BUCKY HINES MD This examination was interpreted and the report reviewed and electronically signed by: BUCKY HINES MD on Dec 02 2023 2:22PM EST [id number] Normal [facility] CNTHERAPYon 11-03-2023 CNTHERAPY OT/PT/Speech Visit ( PTMDRG) DOUGLAS CALLAWAY JR ([id number]) 1955 M Date Time Provider Department 11/03/23 1:15 PM MARÍA OROSCO [facility] Date Time Provider Department Center 11/03/2023 1:15 PM [id number] OROSCO PT[facility] Reason for Visit: Physical Therapy [503] Primary [...] tablet by mouth twice a day - yjeqlc-yefbydka-dedbyeb (CREON 36) 36,000-114,000- 180,000 unit delayed release capsule Take 2 caps by mouth 3 times daily with meals and 1 cap with each snack. Take 1st cap before meal starts and the 2nd cap skilled nursing through. - primidone (MYSOLINE) 50 mg tablet [...] daily to BE TAKEN ALONG WITH 200 CA... (REFER TO PRESCRIPTION NOTES). - rosuvastatin (CRESTOR) [...] Take 75 mg by mouth twice daily. [facility] 11-01-2023 [facility] Telephone (NIQ) DOUGLAS CALLAWAY JR ([id number]) 1955 M Date Time Provider Department 11/01/23 SHERYL BASSETT During your visit today, we recorded the following information about you: Royce Clifton 11/01/2023 3:48 PM Signed Patient scheduled MRI for 12/02/2023, stated he was told that Dr Bassett said she would order medication for the patient to help with nerves during the MRI. Please call patient at [phone] once medication has been ordered. Thank you! Sheryl Bassett MD 11/02/2023 4:16 PM Signed Addended by: SHERYL BASSETT on: 11/02/2023 04:16 PM Modules accepted: Orders Allergies As of Date: 11/01/2023 (No Known Allergies) Date Reviewed: 10/26/2023 Reviewed by: Ross Dimas MA - Fully Assessed Reason for Visit: Patient Question [8854] Primary Visit Diagnosis:Claustrophobia [F40.240] Order(s):diazePAM (VALIUM) 2 [...] tablet by mouth twice a day - wmjdtf-jomgseqf-fhanvze (CREON 36) 36,000-114,000- 180,000 unit delayed release capsule Take 2 caps by mouth 3 times daily with meals and 1 cap with each snack. Take 1st cap before meal starts and the 2nd cap skilled nursing through. - primidone (MYSOLINE) 50 mg tablet [...] daily to BE TAKEN ALONG WITH 200 CA... (REFER TO PRESCRIPTION NOTES). - rosuvastatin (CRESTOR) [...] Encounter Status:Closed by ROYCE CLIFTON on 11/01/23 [facility] CNTHERAPYon 10-28-2023 CNTHERAPY OT/PT/Speech Visit ( PTMDRG) DOUGLAS CALLAWAY JR ([id number]) 1955 M Date Time Provider Department 10/28/23 2:00 PM MARAÍ OROSCO PTMDRG Date Time Provider Department [place] 10/28/2023 2:00 PM [id number] OROSCO PTMDRG [facility] Reason for Visit: Physical Therapy [503] Primary [...] tablet by mouth twice a day - dfadaa-szybwwwr-fnlsvlp (CREON 36) 36,000-114,000- 180,000 unit delayed release capsule Take 2 caps by mouth 3 times daily with meals and 1 cap with each snack. Take 1st cap before meal starts and the 2nd cap skilled nursing through. - primidone (MYSOLINE) 50 mg tablet [...] daily to BE TAKEN ALONG WITH 200 CA... (REFER TO PRESCRIPTION NOTES). - rosuvastatin (CRESTOR) [...] Take 75 mg by mouth twice daily. [facility] 10-26-2023 [facility] Office Visit (NEURMM ) DOUGLAS CALLAWAY JR ([id number]) 1955 M Date Time Provider Department 10/26/23 4:00 PM SHERYL BASSETT NEUR During your visit today, we recorded the [...] lb 4.4 oz) Height: 172.7 cm (5' 8") Physical Exam EXAM: NOSE: no erythema or [...] mouth twice a day 180 tablet 2 feumng-flzenpzq-mnhbtoe (CREON 36) 36,000-114,000- 180,000 unit delayed release capsule Take 2 caps by mouth 3 times daily with meals and 1 cap with each snack. Take 1st cap before meal starts and the 2nd cap skilled nursing through. 240 capsule 5 primidone (MYSOLINE) 50 [...] daily to BE TAKEN ALONG WITH 200 CA... (REFER TO PRESCRIPTION NOTES). lamoTRIgine ER (LAMICTAL [...] ophthalmic soluti (more content not included)... Normal [facility] CNTHERAPYon 10-21-2023 CNTHERAPY OT/PT/Speech Visit ( PTMDRG) DOUGLAS CALLAWAY JR ([id number]) 1955 Date Time Provider Department 10/21/23 10:45 AM KARLA CASTRO PTMDRG Date Time Provider Department Center 10/21/2023 10:45 AM [id number] CASTRO PTMDRG [facility] Reason for Visit: PT Progress Note [5696] Primary Visit Diagnosis:Diabetes mellitus without complication (HCC) [E11.9] Other Visit Diagnoses:Weakness of both lower extremities [R29.898] Abnormality of gait [R26.9] Imbalance [R26.89] Allergies As of Date: 10/21/2023 (No Known Allergies) Date Reviewed: 10/13/2023 Reviewed by: Jasmin Mendieta MA - Fully Assessed Prescriptions as of 10/21/2023 - pzecto-cvshfddd-jphcvey (CREON 36) 36,000-114,000- 180,000 unit delayed release capsule Take 2 caps by mouth 3 times daily with meals and 1 cap with each snack. Take 1st cap before meal starts and the 2nd cap skilled nursing through. - primidone (MYSOLINE) 50 mg tablet [...] daily to BE TAKEN ALONG WITH 200 CA... (REFER TO PRESCRIPTION NOTES). - rosuvastatin (CRESTOR) [...] Take 75 mg by mouth twice daily. Cloth Reeler: Addendum Therapy (PT/OT/Speech/Resp) ID: [id number] 10/21/2023 11:35 AM Author: KARLA CASTRO Signed by KARLA CASTRO PT, DPT on 10/21/2023 at 11:35 AM * * * This document replaces document [id number] * * * Document text: Program_ID:[id number] Access Code: [email or web address] URL: [email or web address] Date: 10-21-2023 Prepared By: Karla Castro Program Notes Add walking for 20 minutes a day when able Exercises - retirement administrator between chairs and working on turning in [...] weekly - 1-2 sets - 10 reps [facility] THERAPY NTon 10-21-2023 THERAPY NT HNO ID: [id number] Author: KARLA CASTRO, PT, DPT Service: Physical Therapy Author Type: Physical Therapist Type: Therapy (PT/OT/Speech/Resp) Filed: 10/21/2023 11:32 Note Text: Program_ID:[id number] Access Code: [email or web address] URL: [email or web address]!/ Date: 10-21-2023 Prepared By: Karla Castro Program Notes Exercises - retirement administrator between chairs and working on turning in [...] - 3 sets - 10 reps Normal [facility] Calprotectin (Stl) [Mass/Mas s]on 10-18-2023 CALPROTECTIN, FECAL INTERP Elevated Abnormal Normal [facility] Comment on above: Order Comment: Michelle mckeon Type: STOOL SPECIMEN Ordering Facility: [facility] Address: [address] [place] [address] Result Comment: On 2022, [facility] [employer] implemented a new fecal calprotectin method, the [employer] L[employer]ison Calprotectin assay. For assistance with interpretation of results in patients undergoing serial monitoring, contact Client Services at [phone] or [phone] to discuss options, preferably within 7 days of issuing this report. Interpretation: <50.0 ug/g: Normal 50.0 ug/g - 120.0 ug/g: Borderline elevated. Re-evaluation in 4-6 weeks is recommended if clinically indicated. >120.0 ug/g: Elevated Performed By: #### 3 8445-3 #### [facility] CLIA [id number] [address] [place] [address] [place] CALPROTECTIN, FECAL QUANTITATIVE 137 ug/g High <50 [facility] Comment on above: Order Comment: Michelle mckeon Type: STOOL SPECIMEN Ordering Facility: [facility] Address: [address] [place] [address] Performed By: #### 3 8445-3 #### [facility] CLIA [id number] [address] [place] [address] [place] CNOVon 10-13-2023 CNOV Office Visit (AGGAST ACC) DOUGLAS CALLAWAY JR ([id number]) 1955 M Date Time Provider Department 10/13/23 [...] ; CABG x 3 EGD 08/2020 at [facility] EGD WITH BIOPSY(S) 05/13/2023 Dr. Fajardo ERCP STENT PLACEMENT BILIARY/PANCREATIC DUCT 09/02/2021 Dr Yarbrough GI TRANSIT AND PRES CARLEY WIRELESS CAPSULE W/INTERP 01/08/2021 Smart Pill-delayed gastric emptying; INCISIONAL BIOPSY SKIN SINGLE LESION biopsy of mass over right eye; benign LAPAROSCOPIC CHOLECYSTECTOMY 09/02/2021 PER ORAL PYLOROMYOTOMY (POP) PROCEDURE (COMP [id number]) 06/11/2021 Dr. Bray REMV CATARACT EXTRACAP,INSERT LENS [...] 1 tablet by mouth twice a day tyagbu-duwkbciv-ddemvof (CREON 36) 36,000-114,000- 180,000 unit delayed release capsule Take 2 caps by mouth 3 times daily with meals and 1 cap with each snack. Take 1st cap before meal starts and the 2nd cap skilled nursing through. ondansetron (ZOFRAN) 4 mg tablet Take [...] daily to BE TAKEN ALONG WITH 200 CA... (REFER TO PRESCRIPTION NOTES). rosuvastatin (CRESTOR) 10 [...] on 05/13/2023) (more content not included)... Normal [facility] CNTHERAPYon 10-11-2023 CNTHERAPY OT/PT/Speech Visit ( PTMDRG) DOUGLAS CALLAWAY JR ([id number]) 1955 M Date Time Provider Department 10/11/23 3:00 PM MARÍA OROSCO PT[facility] Date Time Provider Department Center 10/11/2023 3:00 PM [id number] OROSCO PTMDRG [facility] Reason for Visit: Physical Therapy [503] Primary [...] tablet by mouth twice a day - giypzs-zxtuctpx-eubxubn (CREON 36) 36,000-114,000- 180,000 unit delayed release capsule Take 2 caps by mouth 3 times daily with meals and 1 cap with each snack. Take 1st cap before meal starts and the 2nd cap skilled nursing through. - ondansetron (ZOFRAN) 4 mg tablet [...] daily to BE TAKEN ALONG WITH 200 CA... (REFER TO PRESCRIPTION NOTES). - rosuvastatin (CRESTOR) [...] Take 75 mg by mouth twice daily. Cloth Reeler: Therapy (PT/OT/Speech/Resp) ID: [id number] 10/11/2023 3:31 PM Author: MARÍA OROSCO Signed by MARÍA OROSCO LOCKSMITH on 10/11/2023 at 3:32 PM Document text: Program_ID:[id number] Access Code: [email or web address] URL: [email or web address] Date: 10-11-2023 Prepared By: Karla Castro Program Notes Exercises - retirement administrator between chairs and working on turning in [...] weekly - 2 sets - 10 reps [facility] THERAPY NTon 10-11-2023 THERAPY NT HNO ID: [id number] Author: MARÍA OROSCO PTA Service: ? Author Type: Medical Record Librarian Type: Therapy (PT/OT/Speech/Resp) Filed: 10/11/2023 15:32 Note Text: Program_ID:[id number] Access Code: [email or web address] URL: [email or web address] Date: 10-11-2023 Prepared By: Karla Castro Program Notes Exercises - retirement administrator between chairs and working on turning in [...] weekly - 2 sets - 10 reps [facility] CNTHERAPYon 10-06-2023 CNTHERAPY OT/PT/Speech Visit ( PTMDRG) DOUGLAS CALLAWAY JR ([id number]) 1955 M Date Time Provider Department 10/06/23 3:30 PM MARÍA OROSCO PTMDRG Date Time Provider Department Center 10/06/2023 3:30 PM [id number] OROSCO PTMDRG [facility] Reason for Visit: Physical Therapy [503] Primary [...] tablet by mouth twice a day - hlrval-bnjsfpjw-xzjdtjs (CREON 36) 36,000-114,000- 180,000 unit delayed release capsule Take 2 caps by mouth 3 times daily with meals and 1 cap with each snack. Take 1st cap before meal starts and the 2nd cap skilled nursing through. - ondansetron (ZOFRAN) 4 mg tablet [...] daily to BE TAKEN ALONG WITH 200 CA... (REFER TO PRESCRIPTION NOTES). - rosuvastatin (CRESTOR) [...] Take 75 mg by mouth twice daily. [facility] CNTHERAPYon 09-23-2023 CNTHERAPY OT/PT/Speech Visit ( PTMDRG) DOUGLAS CALLAWAY JR ([id number]) 1955 M Date Time Provider Department 09/23/23 2:45 PM KARLA ACSTRO PTMSOTERO Date Time Provider Department Center 09/23/2023 2:45 PM [id number] CASTRO PTMDRG [facility] Reason for Visit: PT Progress Note [1596] [...] tablet by mouth twice a day - nqlqav-tvhrlaax-jpvripo (CREON 36) 36,000-114,000- 180,000 unit delayed release capsule Take 2 caps by mouth 3 times daily with meals and 1 cap with each snack. Take 1st cap before meal starts and the 2nd cap skilled nursing through. - ondansetron (ZOFRAN) 4 mg tablet [...] daily to BE TAKEN ALONG WITH 200 CA... (REFER TO PRESCRIPTION NOTES). - rosuvastatin (CRESTOR) [...] Take 75 mg by mouth twice daily. 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 Chief Complaint Nasal bone fracture History of [...] ; CABG x 3 EGD 08/2020 [facility] EGD WITH BIOPSY(S) 05/13/2023 Dr. Fajardo ERCP STENT PLACEMENT BILIARY/PANCREATIC DUCT 09/02/2021 Dr Yarbrough GI TRANSIT AND PRES CARLEY WIRELESS CAPSULE W/INTERP 01/08/2021 Smart Pill-delayed gastric emptying; INCISIONAL BIOPSY SKIN SINGLE LESION biopsy of mass over right eye; benign LAPAROSCOPIC CHOLECYSTECTOMY 09/02/2021 PER ORAL PYLOROMYOTOMY (POP) PROCEDURE (COMP [id number]) 06/11/2021 Dr. Bray REMV CATARACT EXTRACAP,INSERT LENS [...] 1 tablet by mouth twice a day rqpddn-czuqrcno-vaeuoej (CREON 36) 36,000-114,000- 180,000 unit delayed release capsule Take 2 caps by mouth 3 times daily with meals and 1 cap with each snack. Take 1st cap before meal starts and the 2nd cap skilled nursing through. ondansetron (ZOFRAN) 4 mg tablet Take 1 tablet by mouth once daily as needed for nausea/vomiting (for nausea.). losartan (COZAAR) 50 mg tablet Take 1 tablet by mouth every afternoon. aspirin, enteric coated (JAILENE LOW DOSE ASPIRIN) 81 mg EC tablet Take by mouth. lamoTRIgine (LAMICTAL) 100 mg tablet take 1/2 tablet by mouth once daily to BE TAKEN ALONG WITH 200 CA... (REFER TO PRESCRIPTION NOTES). doxepin capsule 10 [...] 1,000 mg (more content not included)... Normal [facility] HEALTHon 09-16-2023 ALLIED HEALTH HNO ID: [id number] Author: KISHOR RODRIGUEZ Tech Service: ? Author Type: Global Sales Executive Type: Allied Health Filed: 09/16/2023 17:27 Note [...] Bernarda Meraz September 16, 2023 5:27 PM [facility] CBC W Auto Differential pane l (Bld)on 09-16-2023 Basophils (Bld) [#/Vol] 10*3/uL Normal <0.11 [facility] Comment on above: Order Comment: Speci men Type: BLOOD SPECIMENOrdering Facility: [facility] Address: [address] [place] [address] Performed By: #### 5 7021-8 ####[facility] LABORATORYCLIA [id number] [place] [id number] [place] Basophils/100 WBC (Bld) 0.2 % Normal [facility] Comment on above: Order Comment: Speci men Type: BLOOD SPECIMENOrdering Facility: [facility] Address: [address] [place] [address] Performed By: #### 5 7021-8 ####[facility] LABORATORYCLIA [id number] [place] [address] [place] Differential cell count method Nom (Bld) Auto Normal [facility] Comment on above: Order Comment: Speci men Type: BLOOD SPECIMENOrdering Facility: [facility] Address: [address] [place] [address] Performed By: #### 5 7021-8 ####[facility] LABORATORYCLIA [id number] [place] [address] [place] Eosinophils (Bld) [#/Vol] 0.18 10*3/uL Normal <0.46 [facility] Comment on above: Order Comment: Speci men Type: BLOOD SPECIMENOrdering Facility: [facility] Address: [address] [place] [address] Performed By: #### 5 7021-8 ####[facility] LABORATORYCLIA [id number] [address] [place] Eosinophils/100 WBC (Bld) 1.9 % Normal [facility] Comment on above: Order Comment: Speci men Type: BLOOD SPECIMENOrdering Facility: [facility] Address: [address] [place] [address] Performed By: #### 5 7021-8 ####[facility] LABORATORYCLIA [id number] [address] [place] Erythrocyte distribution width (RBC) [Ratio] 13.6 % Normal 11.5-15.0 [facility] Comment on above: Order Comment: Speci men Type: BLOOD SPECIMENOrdering Facility: [facility] Address: [address] [place] [address] Performed By: #### 5 7021-8 ####[facility] LABORATORYCLIA [id number] [address] [place] Hematocrit (Bld) [Volume fraction] 39.3 % Normal 39.0-51.0 [facility] Comment on above: Order Comment: Speci men Type: BLOOD SPECIMENOrdering Facility: [facility] Address: [address] [place] [address] Performed By: #### 5 7021-8 ####[facility] LABORATORYCLIA [id number] [place] [address] [place] Hemoglobin (Bld) [Mass/Vol] 13.1 g/dL Normal 13.0-17.0 [facility] Comment on above: Order Comment: Speci men Type: BLOOD SPECIMENOrdering Facility: [facility] Address: [address] [place] [address] Performed By: #### 5 7021-8 ####[facility] LABORATORYCLIA [id number] [place] [address] [place] Immature granulocytes (Bld) [#/Vol] 0.08 10*3/uL Normal <0.10 [facility] Comment on above: Order Comment: Speci men Type: BLOOD SPECIMENOrdering Facility: [facility] Address: [address] [place] [address] Performed By: #### 5 7021-8 ####RE[facility] LABORATORYCLIA [id number] [address] [place] Immature granulocytes/100 WBC (Bld) 0.8 % Normal [facility] Comment on above: Order Comment: Speci men Type: BLOOD SPECIMENOrdering Facility: [facility] Address: [address] [place] [address] Performed By: #### 5 7021-8 ####RE[facility] LABORATORYCLIA [id number] [place] [address] [place] Lymphocytes (Bld) [#/Vol] 1.26 10*3/uL Normal 1.00-4.00 [facility] Comment on above: Order Comment: Speci men Type: BLOOD SPECIMENOrdering Facility: [facility] Address: [address] [place] [address] Performed By: #### 5 7021-8 ####[facility] LABORATORYCLIA [id number] [place] [address] [facility] [place] Lymphocytes/100 WBC (Bld) 13.2 % Normal [facility] Comment on above: Order Comment: Speci men Type: BLOOD SPECIMENOrdering Facility: [facility] Address: [address] [place] [address] Performed By: #### 5 7021-8 ####[facility] LABORATORYCLIA [id number] [address] MCH (RBC) [Entitic mass] 31.5 pg Normal 26.0-34.0 [facility] Comment on above: Order Comment: Speci men Type: BLOOD SPECIMENOrdering Facility: [facility] Address: [address] [place] [address] Performed By: #### 5 7021-8 ####[facility] LABORATORYCLIA [id number] [address] [place] [facility] MCHC (RBC) [Mass/Vol] 33.3 g/dL Normal 30.5-36.0 [facility] Comment on above: Order Comment: Speci men Type: BLOOD SPECIMENOrdering Facility: [facility] Address: [address] [place] [address] Performed By: #### 5 7021-8 ####[facility] LABORATORYCLIA [id number] [address] MCV (RBC) [Entitic vol] 94.5 fL Normal 80.0-100.0 [facility] Comment on above: Order Comment: Speci men Type: BLOOD SPECIMENOrdering Facility: [facility] Address: [address] [place] [address] Performed By: #### 5 7021-8 ####[facility] LABORATORYCLIA [id number] [address] Monocytes (Bld) [#/Vol] 0.80 10*3/uL Normal <0.87 [facility] Comment on above: Order Comment: Speci men Type: BLOOD SPECIMENOrdering Facility: [facility] Address: [address] [place] [address] Performed By: #### 5 7021-8 ####[facility] LABORATORYCLIA [id number] [address] Monocytes/100 WBC (Bld) 8.4 % Normal [facility] Comment on above: Order Comment: Speci men Type: BLOOD SPECIMENOrdering Facility: [facility] Address: [address] [place] [address] Performed By: #### 5 7021-8 ####[facility] LABORATORYCLIA [id number] [place] [address] [place] Neutrophils (Bld) [#/Vol] 7.22 10*3/uL Normal 1.45-7.50 [facility] Comment on above: Order Comment: Speci men Type: BLOOD SPECIMENOrdering Facility: [facility] Address: [address] [place] [address] Performed By: #### 5 7021-8 ####[facility] LABORATORYCLIA [id number] [address] [place] Neutrophils/100 WBC (Bld) 75.5 % Normal [facility] Comment on above: Order Comment: Speci men Type: BLOOD SPECIMENOrdering Facility: [facility] [facility] Address: [address] [place] [address] Performed By: #### 5 7021-8 ####REYNOSO LABORATORYCLIA [id number] [place] [address] [place] Nucleated RBC (Bld) [#/Vol] 10*3/uL Normal <0.01 [facility] Comment on above: Order Comment: Speci men Type: BLOOD SPECIMENOrdering Facility: [facility] Address: [address] [place] [address] Performed By: #### 5 7021-8 ####REYNOSO LABORATORYCLIA [id number] [address] Nucleated RBC/100 WBC (Bld) [Ratio] 0.0 /100 WBC Normal [facility] Comment on above: Order Comment: Speci men Type: BLOOD SPECIMENOrdering Facility: [facility] Address: [address] [place] [address] Performed By: #### 5 7021-8 ####REYNOSO LABORATORYCLIA [id number] [address] [place] Platelet mean volume (Bld) [Entitic vol] 9.9 fL Normal 9.0-12.7 [facility] Comment on above: Order Comment: Speci men Type: BLOOD SPECIMENOrdering Facility: [facility] Address: [address] [place] [address] Performed By: #### 5 7021-8 ####REYNOSO LABORATORYCLIA [id number] [place] [address] [facility] [place] Platelets (Bld) [#/Vol] 221 10*3/uL Normal 150-400 [facility] Comment on above: Order Comment: Speci men Type: BLOOD SPECIMENOrdering Facility: [facility] Address: [address] [place] [address] Performed By: #### 5 7021-8 ####REYNOSO LABORATORYCLIA [id number] [place] [address] [facility] [place] RBC (Bld) [#/Vol] 4.16 10*6/uL Low 4.20-6.00 [facility] Comment on above: Order Comment: Speci men Type: BLOOD SPECIMENOrdering Facility: [facility] Address: [address] [place] [address] Performed By: #### 5 7021-8 ####REYNOSO LABORATORYCLIA [id number] [place] [address] [place] WBC (Bld) [#/Vol] 9.56 10*3/uL Normal 3.70-11.00 [facility] Comment on above: Order Comment: Speci men Type: BLOOD SPECIMENOrdering Facility: [facility] Address: [address] [place] [address] Performed By: #### 5 7021-8 ####REYNOSO LABORATORYCLIA [id number] [address] OF [facility] CNTHERAPYon 09-16-2023 CNTHERAPY OT/PT/Speech Visit ( PTMDRG) DOUGLAS CALLAWAY JR ([id number]) 1955 M Date Time Provider Department 09/16/23 2:45 PM KARLA CASTRO PTMDRG Date Time Provider Department Center 09/16/2023 2:45 PM [id number] CASTRO PTMDRG [facility] Reason for Visit: Appointment Cancelled [1023] Primary [...] tablet by mouth twice a day - nzdjbi-dlfmqsvd-komutqh (CREON 36) 36,000-114,000- 180,000 unit delayed release capsule Take 2 caps by mouth 3 times daily with meals and 1 cap with each snack. Take 1st cap before meal starts and the 2nd cap skilled nursing through. - ondansetron (ZOFRAN) 4 mg tablet [...] daily to BE TAKEN ALONG WITH 200 CA... (REFER TO PRESCRIPTION NOTES). - rosuvastatin (CRESTOR) [...] Take 75 mg by mouth twice daily. [facility] CT BRAIN WO IVCONon 09-16-[address] BRAIN WO IVCON * * *Final Report* * * DATE OF EXAM: Sep 16 2023 5:09PM [facility] [place] [place]RAIN [place] IVCON / [...] No acute abnormalities of the cervical spine Lead Security Officer: SEN Transcribe Date/Time: Sep 16 2023 5:24P Dictated by : CHITRA HARRIS DO This examination was interpreted and the report reviewed and electronically signed by: CHITRA HARRIS DO on Sep 16 2023 5:35PM EST [id number] [facility] CT CERVICAL SPINE WO IVCONon 09-16-2023 CT CERVICAL SPINE WO IVCON * * *Final Report* * * DATE OF EXAM: Sep 16 2023 5:09PM [facility] [place] CERVICAL SPINE WO IVCON [...] No acute abnormalities of the cervical spine Lead Security Officer: SEN Transcribe Date/Time: Sep 16 2023 5:24P Dictated by : CHITRA HARRIS DO This examination was interpreted and the report reviewed and electronically signed by: CHITRA HARRIS DO on Sep 16 2023 5:35PM EST [id number] [facility] CT FACIAL BONE/NAN WO IVCON on 09-16-2023 CT FACIAL BONE/NAN WO IVCON * * *Final Report* * * DATE OF EXAM: Sep 16 2023 5:09PM [facility] [place] [place] FACIAL BONE/NAN WO IVCON [...] No acute abnormalities of the cervical spine Lead Security Officer: PSCB Transcribe Date/Time: Sep 16 2023 5:24P Dictated by : CHITRA HARRIS DO This examination was interpreted and the report reviewed and electronically signed by: CHITRA HARRIS DO on Sep 16 2023 5:35PM EST [id number] Normal [facility] Comprehensive metabolic 2000 panelon 09-16-2023 Albumin [Mass/Vol] 4.0 g/dL Normal 3.9-4.9 [facility] Comment on above: Order Comment: Specfrandy mckeon Type: BLOOD SPECIMENOrdering Facility: [facility] Address: [address] [place] [address] Performed By: #### 2 4323-8 ####REYNOSO LABORATORYCLIA [id number] [place] [address] [place] ALP [Catalytic activity/Vol] 149 U/L High 38-113 [facility] Comment on above: Order Comment: Speci men Type: BLOOD SPECIMENOrdering Facility: [facility] Address: [address] [place] [address] Performed By: #### 2 4323-8 ####REYNOSO LABORATORYCLIA [id number] [address] [place] ALT [Catalytic activity/Vol] 38 U/L Normal 10-54 [facility] Comment on above: Order Comment: Ermiasi men Type: BLOOD SPECIMENOrdering Facility: [facility] Address: [address] [place] [address] Performed By: #### 2 4323-8 ####REYNOSO LABORATORYCLIA [id number] [place] [address] [place] Anion gap [Moles/Vol] 12 mmol/L Normal 9-18 [facility] Comment on above: Order Comment: Speci men Type: BLOOD SPECIMENOrdering Facility: [facility] Address: [address] [place] [address] Performed By: #### 2 4323-8 ####REYNOSO LABORATORYCLIA [id number] [place] [address] [place] AST [Catalytic activity/Vol] 44 U/L High 14-40 [facility] Comment on above: Order Comment: Speci men Type: BLOOD SPECIMENOrdering Facility: [facility] Address: [address] [place] [address] Performed By: #### 2 4323-8 ####REYNOSO LABORATORYCLIA [id number] [place] [address] [place] Bilirubin [Mass/Vol] 0.5 mg/dL Normal 0.2-1.3 [facility] Comment on above: Order Comment: Speci men Type: BLOOD SPECIMENOrdering Facility: [facility] Address: [address] [place] [address] Performed By: #### 2 4323-8 ####REYNOSO LABORATORYCLIA [id number] [place] [address] [place] Calcium [Mass/Vol] 9.5 mg/dL Normal 8.5-10.2 [facility] Comment on above: Order Comment: Speci men Type: BLOOD SPECIMENOrdering Facility: [facility] Address: [address] [place] [address] Performed By: #### 2 4323-8 ####REYNOSO LABORATORYCLIA [id number] [place] [address] [place] Chloride [Moles/Vol] 103 mmol/L Normal 97-105 [facility] Comment on above: Order Comment: Speci men Type: BLOOD SPECIMENOrdering Facility: [facility] Address: [address] [place] [address] Performed By: #### 2 4323-8 ####REYNOSO LABORATORYCLIA [id number] [place] [address] [place] CO2 [Moles/Vol] 24 mmol/L Normal 22-30 [facility] Comment on above: Order Comment: Michelle mike Type: BLOOD SPECIMENOrdering Facility: [facility] Address: [address] [place] [address] Performed By: #### 2 4323-8 ####REYNOSO LABORATORYCLIA [id number] [address] [place] Creatinine [Mass/Vol] 1.42 mg/dL High 0.73-1.22 [facility] Comment on above: Order Comment: Michelle mckeon Type: BLOOD SPECIMENOrdering Facility: [facility] Address: [address] [place] [address] Performed By: #### 2 4323-8 ####REYNOSO LABORATORYCLIA [id number] [address] Creatinine and Glomerular filtration rate.predicted panel (S/P/Bld) 53 mL/min/1.73m??? Low >=60 [facility] Comment on above: Order Comment: Michelle mckeon Type: BLOOD SPECIMENOrdering Facility: [facility] Address: [address] [place] [address] Result Comment: Poppy mated Glomerular Filtration Rate [...] Performed By: #### 2 4323-8 ####REYNOSO LABORATORYCLIA [id number] [address] [place] Glucose [Mass/Vol] 111 mg/dL High 74-99 [facility] Comment on above: Order Comment: Ermiasfrandy mckeon Type: BLOOD SPECIMENOrdering Facility: [facility] Address: [address] [place] [address] Result Comment: The [place] [employer] (ADA) provides guidance for cutoff [...] Standards of Medical Care in Diabetes 2016, [place] [employer]. Diabetes Care. 2016.39(Suppl 1). Performed By: #### 2 4323-8 ####REYNOSO LABORATORYCLIA [id number] [place] [address] [place] Potassium [Moles/Vol] 4.2 mmol/L Normal 3.7-5.1 [facility] Comment on above: Order Comment: Speci men Type: BLOOD SPECIMENOrdering Facility: [facility] Address: [address] [place] [address] Performed By: #### 2 4323-8 ####REYNOSO LABORATORYCLIA [id number] [place] [address] [place] Protein [Mass/Vol] 6.5 g/dL Normal 6.3-8.0 [facility] Comment on above: Order Comment: Speci men Type: BLOOD SPECIMENOrdering Facility: [facility] Address: [address] [place] [address] Performed By: #### 2 4323-8 ####REYNOSO LABORATORYCLIA [id number] [place] [address] [place] Sodium [Moles/Vol] 139 mmol/L Normal 136-144 [facility] Comment on above: Order Comment: Speci men Type: BLOOD SPECIMENOrdering Facility: [facility] Address: [address] [place] [address] Performed By: #### 2 4323-8 ####REYNOSO LABORATORYCLIA [id number] [place] [address] [place] Urea nitrogen [Mass/Vol] 23 mg/dL Normal 9-24 [facility] Comment on above: Order Comment: Speci men Type: BLOOD SPECIMENOrdering Facility: [facility] Address: [address] [place] [address] Performed By: #### 2 4323-8 ####BUFFALO LABORATORYCLIA [id number] [place] [address] [facility] ED NOTEon 09-16-2023 ED NOTE HNO ID: [id number] Author: LISA CANTOR RN Service: Nursing Author Type: Registered Nurse Type: ED Notes Filed: 09/16/2023 20:35 Note Text: Pt was able to transfer with his cane to the wheelchair and to private vehicle [facility] ED NOTE HNO ID: [id number] Author: LISA CANTOR RN Service: Nursing Author [...] SOB increased facial swelling or difficulty swallowing [facility] ED NOTE HNO ID: [id number] Author: LISA CANTOR RN Service: Nursing Author Type: Registered Nurse Type: ED Notes Filed: 09/16/2023 19:14 Note Text: Test Center Administrator has been bedside Pts remains bedside [facility] ED NOTE HNO ID: [id number] Author: LISA CANTOR RN Service: Nursing Author Type: Registered Nurse Type: ED Notes Filed: 09/16/2023 18:40 Note Text: Pt is sipping cold gingerale tolerating well [facility] ED NOTE HNO ID: [id number] Author: LISA CANTOR RN Service: Nursing Author Type: Registered Nurse Type: ED Notes Filed: 09/16/2023 17:54 Note Text: Pt is resting with the ice pack to his face [facility] ED NOTE HNO ID: [id number] Author: LISA CANTOR RN Service: Nursing Author Type: Registered Nurse Type: ED Notes Filed: 09/16/2023 17:39 Note Text: Pt has voided per the urinal 600 cc clear yellow urine [facility] ED NOTE HNO ID: [id number] Author: LISA CANTOR RN Service: Nursing Author Type: Registered Nurse Type: ED Notes Filed: 09/16/2023 17:35 Note Text: Pt has returned from radiology He has ice packs to his face wounds Normal [facility] ED NOTE HNO ID: [id number] Author: LISA CANTOR, YUN Service: Nursing Author Type: Registered Nurse Type: ED Notes Filed: 09/16/2023 16:59 Note Text: Ice packs are applied to the pts face Pt is able to speak in complete sentences Per he and his at the bedside the pt has been missing teeth Normal [facility] ED NOTE HNO ID: [id number] Author: RYAN DONAHUE, YUN Service: ? Author Type: Registered Nurse Type: ED Notes Filed: 09/16/2023 16:01 Note Text: Pt was going to Dr visit and fell hitting head and face. Pt does have frequent falls and his being worked up for Parkinson Normal [facility] ED PROV NOTEon 09-16-2023 ED PROV NOTE HNO ID: [id number] Author: MICHAEL GARCIA MD Service: Emergency Medicine [...] plan.Remainder of lacerations were repaired by physician registrar assistant. He will be empirically given Augmentin due to the nasal fractures as well as bacitracin topically. Other additions or changes: None Signature: Michael Garcia MD Date: 09/16/2023 Time: 7:42 PM MICHAEL GARCIA I 09/16/23 2221 [facility] ED PROV NOTE HNO ID: [id number] Author: ARIANE JIN PA-C Service: Emergency Medicine Author Type: Physician Expense Analyst Type: ED Provider Notes Filed: 09/17/2023 00:05 [...] Other additions or changes: None Signature: Michael aGrcia MD Date: 09/18/2023 Time: 3:19 PM ED [...] ; CABG x 3 EGD 08/2020 at [facility] EGD WITH BIOPSY(S) 05/13/2023 Dr. Fajardo ERCP STENT PLACEMENT BILIARY/PANCREATIC DUCT 09/02/2021 Dr Yarbrough GI TRANSIT AND PRES CARLEY WIRELESS CAPSULE W/INTERP 01/08/2021 Smart Pill-delayed gastric emptying; INCISIONAL BIOPSY SKIN SINGLE LESION biopsy of mass over right eye; benign LAPAROSCOPIC CHOLECYSTECTOMY 09/02/2021 PER ORAL PYLOROMYOTOMY (POP) PROCEDURE (COMP 15479) 06/11/2021 Dr. Bray REMV CATARACT EXTRACAP,INSERT LENS [...] nursing note reviewed. Exam conducted with a junior paralegal present. HENT: Head: Comments: Superior laceration is [...] warm and (more content not included)... Normal [facility] PT panel Coag (PPP)on 2023 INR Coag (PPP) [Relative time] 1.0 {INR} Normal 0.9-1.3 [facility] Comment on above: Order Comment: Speci men Type: BLOOD SPECIMENOrdering Facility: [facility] Address: [address] [place], [place] [address] Result Comment: Ladi min K Antagonist (VKA) Therapeutic Range: INR 2 to 3 (Target INR of 2.5) Note: For patients treated with VKA drugs, such as warfarin, the [place] [employer] 2012 Guideline recommends [...] to 3.5 (target INR of 3). Howie LOPEZ, et al. Chest 2012, 141:7S-47S Matt RA, et al. JAC 2017, 70: 252-289 Performed By: #### 3 4528-0 ####BUFFALO LABORATORYCLIA [id number] [address] [place] PT Coag (PPP) [Time] 10.3 s Normal 9.7-13.0 [facility] Comment on above: Order Comment: Speci men Type: BLOOD SPECIMENOrdering Facility: [facility] Address: [address] [place] [address] [place] [address] Performed By: #### 3 4528-0 ####BUFFALO LABORATORYCLIA [id number] [address] OF [facility] XR HAND 3V PA/LAT/OBL LTon 0 09-16-2023 [...] as discussed in results portion of report Lead Security Officer: SEN Transcribe Date/Time: Sep 16 2023 5:35P Dictated by : CHITRA HARRIS DO This examination was interpreted and the report reviewed and electronically signed by: CHITRA HARRIS DO on Sep 16 2023 5:36PM EST [id number] Normal [facility] CNTHERAPYon 08-19-2023 CNTHERAPY OT/PT/Speech Visit ( PTMDRG) DOUGLAS CALLAWAY JR ([id number]) 1955 M Date Time Provider Department 08/19/23 5:15 PM ROBERTKARLA PTMG Date Time Provider Department Center 08/19/2023 5:15 PM [id number] CASTRO PTMG [facility] Reason for Visit: Physical Therapy [503] Primary [...] tablet by mouth twice a day - ffweiy-gfpgaind-xapyljp (CREON 36) 36,000-114,000- 180,000 unit delayed release capsule Take 2 caps by mouth 3 times daily with meals and 1 cap with each snack. Take 1st cap before meal starts and the 2nd cap skilled nursing through. - ondansetron (ZOFRAN) 4 mg tablet [...] daily to BE TAKEN ALONG WITH 200 CA... (REFER TO PRESCRIPTION NOTES). - rosuvastatin (CRESTOR) [...] Take 75 mg by mouth twice daily. Cloth Reeler: Therapy (PT/OT/Speech/Resp) ID: [id number] 08/19/2023 5:58 PM Author: KARLA CASTRO Signed by KARLA CASTRO PT, DPT on 08/19/2023 at 5:58 PM Document text: Program_ID:[id number] Access Code: [email or web address] URL: [email or web address] Date: 08-19-2023 Prepared By: Karla Castro Program Notes Exercises - retirement administrator between chairs and working on turning in 8 steps - 1 x daily - 7 x weekly - 3 sets - 10 reps - sidestepping in and out of bucket - 1 x daily - 7 x weekly - 3 sets - 10 reps - Sit to Stand - 1 x daily - 7 x weekly - 3 sets - 10 reps [facility] THERAPY NTon 08-19-2023 THERAPY NT HNO ID: [id number] Author: Karla Castro PT, DPT Service: Physical Therapy Author Type: Physical Therapist Type: Therapy (PT/OT/Speech/Resp) Filed: 08/19/2023 5:58 PM Note Text: Program_ID:[id number] Access Code: [email or web address] URL: [email or web address] Date: 08-19-2023 Prepared By: Karla Castro Program Notes Exercises - retirement administrator between chairs and working on turning in 8 steps - 1 x daily - 7 x weekly - 3 sets - 10 reps - sidestepping in and out of bucket - 1 x daily - 7 x weekly - 3 sets - 10 reps - Sit to Stand - 1 x daily - 7 x weekly - 3 sets - 10 reps [facility] 08-18-2023 [facility] Telephone (RS) CESIADOUGLAS VIVEROS ([id number]) 1955 M Date Time Provider Department 08/18/23 ELBA SAMANIEGO During your visit today, we recorded the following information about you: Rena Molina 08/18/2023 11:17 AM Signed Contacted patient per staff message below: Elba Samaniego, PT, DPT P [place] Pt/Ot/Speech Clerical Pool Can we call to schedule pt eval for Ot with viviana Left a voice mail to call [phone] and ask for therapy to schedule an appointment. Sent 7digital message Lisa Rai 08/23/2023 10:21 AM Signed Called patient, left [...] tablet by mouth twice a day - tysgih-vmouxkgm-cchklkv (CREON 36) 36,000-114,000- 180,000 unit delayed release capsule Take 2 caps by mouth 3 times daily with meals and 1 cap with each snack. Take 1st cap before meal starts and the 2nd cap skilled nursing through. - primidone (MYSOLINE) 50 mg tablet [...] daily to BE TAKEN ALONG WITH 200 CA... (REFER TO PRESCRIPTION NOTES). - rosuvastatin (CRESTOR) [...] Status:Closed by RENA MOLINA on 11/16/23 Normal [facility] EMG(NEURO/NI)on 08-12-2023 [facility] CNTHERAPYon 08-11-2023 CNTHERAPY OT/PT/Speech Visit ( PTMDRG) DOUGLAS CALLAWAY JR ([id number]) 1955 M Date Time Provider Department 08/11/23 4:15 PM ELBA SAMANIEGO Date Time Provider Department [place] 08/11/2023 4:15 PM [id number] SAMANIEGO PTMSOTERO [facility] Reason for Visit: PT Eval [747] Patient [...] tablet by mouth twice a day - fxrkiw-blxoacrr-firdfch (CREON 36) 36,000-114,000- 180,000 unit delayed release capsule Take 2 caps by mouth 3 times daily with meals and 1 cap with each snack. Take 1st cap before meal starts and the 2nd cap skilled nursing through. - ondansetron (ZOFRAN) 4 mg tablet [...] daily to BE TAKEN ALONG WITH 200 CA... (REFER TO PRESCRIPTION NOTES). - rosuvastatin (CRESTOR) [...] Take 75 mg by mouth twice daily. 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 Take 1st cap before meal starts and the 2nd cap skilled nursing through.Disp: 240 capsuleRfl: 2 Prescriptions as of 08/03/2023 - mhgmqf-qkyxbakf-hkowupx (CREON 36) 36,000-114,000- 180,000 unit delayed release capsule Take 2 caps by mouth 3 times daily with meals and 1 cap with each snack. Take 1st cap before meal starts and the 2nd cap skilled nursing through. - ondansetron (ZOFRAN) 4 mg tablet [...] daily to BE TAKEN ALONG WITH 200 CA... (REFER TO PRESCRIPTION NOTES). - rosuvastatin (CRESTOR) [...] ordered this encounter Disp Refills Start End ACWHXT-DAINVOIV-GHKPDTB 36,000-114,0* 240 * 2 08/02/2023 Sig: Take 2 caps by mouth 3 times daily with meals and 1 cap with each snack. Take 1st cap before meal starts and the 2nd cap skilled nursing through. Encounter Status:Closed by PRAVIN MUKHERJEE on 08/03/23 Normal [facility] C diff Tox gens Stl Ql SUSIE+p berto 07-27-2023 C. difficile toxin genes SUSIE+probe Ql (Stl) Negative Normal Negative for C. difficile toxin by PCR [facility] Comment on above: Order Comment: Speci men Type: STOOL SPECIMEN [facility] Address: [address] [place], [place] [address] Performed By: #### 5 4067-4 #### [facility] CLIA [id number] [address] [facility] [facility] [place] [id number] [place] [facility] CNOVon 07-27-2023 CNOV Office Visit (NEURMM ) DOUGLAS CALLAWAY JR ([id number]) 1955 M Date Time Provider Department 07/27/23 [...] 46 SpO2: 97% Height: 172.7 cm (5' 8") Physical Exam EXAM: NOSE: no erythema or [...] MEDICAL HISTORY Diagnosis Date Bipolar II disorder ([facility]) CAD (coronary artery disease) 12/2019 CABG x 3 Carotid artery occlusion with cerebral infarction ([facility]) pt denies this; CVA was secondary to HTN CVA (cerebral vascular accident) ([facility]) 2003 related to untreated HTN; no residual effects Depression Elevated LFTs Gastroparesis POP procedure 06/11/21 GERD (gastroesophageal reflux disease) Hepatitis A 09/2018 Resolved HTN (hypertension) Hyperlipemia Insomnia CABRERA (obstructive sleep apnea) does not currently have a CPAP Osteoporoses Renal insufficiency TIA (transient ischemic attack) prior to CVA in 2003, none since Type 2 diabetes mellitus ([facility]) 2018 Iván Case PCP Current [...] daily to BE TAKEN ALONG WITH 200 CA... (REFER TO PRESCRIPTION NOTES). rosuvastatin (CRESTOR) 10 [...] lamoTRIgine ER (more content not included)... Normal [facility] DOUGLAS CALLAWAY JR ([id number]) 1955 M Date Time Provider Department 07/27/23 SHERYL BASSETT [facility] During your visit today, we recorded the [...] daily to BE TAKEN ALONG WITH 200 CA... (REFER TO PRESCRIPTION NOTES). - rosuvastatin (CRESTOR) [...] Status:Closed by ROSS DIMAS on 07/27/23 Normal [facility] Calprotectin (Stl) [Mass/Mas s]on 07-27-2023 CALPROTECTIN, FECAL INTERP Elevated Abnormal Normal [facility] Comment on above: Order Comment: Speci men Type: STOOL SPECIMENOrdering Facility: [facility] Address: [address] [place] [address] Result Comment: On 2022, [facility] implemented a new fecal calprotectin method, the Dia[employer] Liaison Calprotectin assay. For assistance with interpretation of results in patients undergoing serial monitoring, contact Client Services at [phone] or [phone] to discuss options, preferably within 7 days of issuing this report. Interpretation: <50.0 ug/g: Normal 50.0 ug/g - 120.0 ug/g: Borderline elevated. Re-evaluation in 4-6 weeks is recommended if clinically indicated. >120.0 ug/g: Elevated Performed By: #### 3 8445-3 ####[facility] [id number] [facility] [id number] [address] [place] CALPROTECTIN, FECAL QUANTITATIVE 599 ug/g High <50 [facility] Comment on above: Order Comment: Speci men Type: STOOL SPECIMENOrdering Facility: [facility] Address: [address] [place] [address] Performed By: #### 3 8445-3 ####[facility] LABCLIA [id number] [place] [address] [place] FAT, FECAL QUALon 07-27-2023 FAT, FECAL - NEUTRAL Normal Normal Normal [facility] Comment on above: Order Comment: Speci men Type: STOOL SPECIMEN Ordering Facility: [facility] Address: [address] [place] [address] Performed By: #### F FATQL #### [facility] CLIA [id number] [address] [place] [address] FAT, FECAL - SPLIT Normal Normal Normal [facility] Comment on above: Order Comment: Speci men Type: STOOL SPECIMEN [facility] Address: [address] [place] [address] Result Comment: INTE RPRETIVE INFORMATION: Fecal Fat Qualitative Neutral fats include the monoglycerides, diglycerides, and triglycerides while split fats are the free fatty acids that are liberated from them. Impaired synthesis or secretion of pancreatic enzymes or bile may cause an increase in neutral fats while an increase in split fats suggests impaired absorption of nutrients. Performed By: [employer] [address] [place] [address] Supervisor Customer Complaint Service: Dale Mckeon MD, PhD CLIA Number: [id number] Performed By: #### F FATQL #### [facility] CLIA [id number] [address] [place] [address] H pylori Ag Stl Ql IAon 07-08 H. pylori Ag IA Ql (Stl) H.PYLORI EIA RESULT: Negative for Helicobacter pylori antigen by EIA Normal [facility] Comment on above: Performed By: #### P ANCEF, 97200-8 #### [facility] CLIA [id number] [address] [place] [address] [place] MAGNESIUM BLDon 07-27-2023 Magnesium [Mass/Vol] 1.8 mg/dL 1.7 - 2.3 mg/dL [facility] Magnesium SerPl-mCncon 07-27 Magnesium [Mass/Vol] 1.8 mg/dL Normal 1.7-2.3 [facility] Comment on above: Order Comment: Speci men Type: BLOOD SPECIMENOrdering Facility: [facility] Address: [address] [place] [address] Performed By: #### 2 132-9, 65651-5 ####[facility] [id number] [place] [address] [place] PANC ELASTASE, FECALon 07-27 ELASTASE INTERPRETATION Mild to moderate Exocrine Pancreatic Insufficiency Abnormal Normal [facility] Comment on above: Order Comment: Speci men Type: STOOL SPECIMEN [facility] Address: [address] [place] [address] Performed By: #### P ANCEF, 14527-5 #### [facility] CLIA [id number] [address] [place] [address] [place] ELASTASE-1 CONCENTRATION 196 ug/g Abnormal >=200 [facility] Comment on above: Order Comment: Speci men Type: STOOL SPECIMEN [facility] Address: [address] [place] [address] Result Comment: Inte rpretation: <100 ug/g: Severe Exocrine Pancreatic Insufficiency 100-199 ug/g: Mild to Moderate Exocrine Pancreatic Insufficiency >=200 ug/g: Normal Performed By: #### P ANCEF, 98328-0 #### [facility] CLIA [id number] [address] [place] [address] [place] VITAMIN B12 BLOODon 07-27-20 23 Cobalamin (Vitamin B12) [Mass/Vol] 1328 pg/mL High 232 - 1,245 pg/mL [facility] Vit B12 SerPl-mCncon 023 Cobalamin (Vitamin B12) [Mass/Vol] 1328 pg/mL High 232-1245 [facility] Comment on above: Order Comment: Speci men Type: BLOOD SPECIMENOrdering Facility: [facility] Address: [address] [place] [address] Performed By: #### 2 132-9, ####[facility]ORATORYIA [id number] [place] [address] [place] CNOVon 07-26-2023 CNOV Office Visit (AGGAST ACC) DOUGLAS CALLAWAY JR ([id number]) 1955 M Date Time Provider Department 07/26/23 [...] Per Dr Bray: Today he reports a "resurgence" of symptoms - he endorses episodes of [...] daily to BE TAKEN ALONG WITH 200 CA... (REFER TO PRESCRIPTION NOTES). rosuvastatin (CRESTOR) 10 [...] a C (more content not included)... Normal [facility] Hazel 07-08-2023 [facility] Telephone (AGGENS4) DOUGLAS CALLAWAY JR ([id number]) 1955 M Date Time Provider Department 07/08/23 KARLA SAUER During your visit today, we recorded the following information about you: Brody Munson 07/08/2023 11:38 AM Signed Pt. Update 11.2.23[facility] Allergies As of Date: 07/08/2023 [...] daily to BE TAKEN ALONG WITH 200 CA... (REFER TO PRESCRIPTION NOTES). - rosuvastatin (CRESTOR) [...] Encounter Status:Closed by BRODY MUNSON on 07[facility]08[facility]23 [facility] Office Visit (AGGENS 4) DOUGLAS CALLAWAY Brianna YANG ([id number]) 1955 M Date Time Provider Department 06/10/23 [...] emesis is watery with food particles in it" and occurs with "a particular fullness." He and his report he has new [...] after that visit. Today he reports a "resurgence" of symptoms - he endorses episodes of [...] ; CABG x 3 EGD 08/2020 [facility] EGD WITH BIOPSY(S) 05/13/2023 Dr. Fajardo ERCP STENT PLACEMENT BILIARY/PANCREATIC DUCT 09/02/2021 Dr Yarbrough GI TRANSIT AND PRES CARLEY WIRELESS CAPSULE W/INTERP 01/08/2021 Smart Pill-delayed gastric emptying; INCISIONAL BIOPSY SKIN SINGLE LESION biopsy of mass over right eye; benign LAPAROSCOPIC CHOLECYSTECTOMY 09/02/2021 PER ORAL PYLOROMYOTOMY (POP) PROCEDURE (COMP 60136) 06/11/2021 Dr. Bray REMV CATARACT EXTRACAP,INSERT LENS [...] 12.0 standar (more content not included)... Normal [facility] ANES POSTPROC EVALon 023 ANES POSTPROC EVAL HNO ID: [id number] Author: Norberto Calderon MD Service: Anesthesiology Author Type: Physician Type: Anesthesia Postprocedure Evaluation Filed: 05/13/2023 3:47 PM Note Text: POST ANESTHESIA EVALUATION NOTE : 1955 Procedure Summary Date: 05/13/23 Room / Location: [facility] Anesthesia Start: 1512 Anesthesia Stop: 153 Procedure: [...] May 13, 2023 TIME: 3:35 PM CSN: [id number] Normal [facility] ANES PRE-OPon 05-13-2023 ANES PRE-OP HNO ID: [id number] Author: Norberto Calderon MD Service: Anesthesiology Author Type: Physician Type: Anesthesia Preprocedure Evaluation Filed: 05/13/2023 3:27 PM Note Text: Believe these changes are non controverANESTHESIOLOGY DAY OF SURGERY NOTE : 1955 Procedure Information Date/Time: 05/13/23 1500 Scheduled providers: Germaine Bray MD Procedure: EGD DIAGNOSTIC Location: [facility] Estimated body mass index is 25.24 kg/m? as calculated from the following: Height as of this encounter: 172.7 cm (5' 8"). Weight as of this encounter: 75.3 kg [...] and consent discussed: yes. Patient / Responsible Democrat agrees to proceed: yes Patient / Surrogate [...] mouth every afternoon. - aspirin, enteric coated ([email or web address] LOW DOSE ASPIRIN) 81 mg EC tablet Take by mouth. - aspirin ([employer]fered[employer]com CHEWABLE ASPIRIN) 81 mg chewable tablet Take [...] daily to BE TAKEN ALONG WITH 200 CA... (REFER TO PRESCRIPTION NOTES). - rosuvastatin (CRESTOR) [...] 2023 MRN: (more content not included)... Normal [facility] EGD DIAGNOSTICon 05-13-2023 [facility] HISTORY PHYSICALon HISTORY PHYSICAL HNO ID: [id number] Author: Tiffany Ramey APRN.CASKET UPHOLSTERER Service: Anesthesiology Author Type: Nurse Practitioner Type: [...] ; CABG x 3 EGD 08/2020 at [facility] ERCP STENT PLACEMENT BILIARY/PANCREATIC DUCT 09/02/2021 Dr Yarbrough GI TRANSIT AND PRES CARLEY WIRELESS CAPSULE W/INTERP 01/08/2021 Smart Pill-delayed gastric emptying; INCISIONAL BIOPSY SKIN SINGLE LESION biopsy of mass over right eye; benign LAPAROSCOPIC CHOLECYSTECTOMY 09/02/2021 PER ORAL PYLOROMYOTOMY (POP) PROCEDURE (COMP 61280) 06/11/2021 Dr. Tomy LARSON CATARACT EXTRACAP,INSERT LENS [...] EC tablet Take by mouth. Yes aspirin (Reffered[employer].com CHEWABLE ASPIRIN) 81 mg chewable tablet Take [...] daily to BE TAKEN ALONG WITH 200 CA... (REFER TO PRESCRIPTION NOTES). 05/10/2023 rosuvastatin (CRESTOR) [...] by donell (more content not included)... Normal [facility] OPERATIVE NOon 05-13-2023 OPERATIVE NO HNO ID: [id number] Author: Germaine Bray MD Service: General Surgery Author Type: Physician Type: Operative Report Filed: 05/13/2023 3:37 PM Note Text: OPERATIVE/PROCEDURE REPORT LOG ID: [id number] Surgery/Procedure Date: Incision/Procedure Start Time: 3:21 PM Incision Close/Procedure End Time: 3:27 PM Surgeon(s)/Proceduralist(s) and Expense Analyst(s): Surgeon(s) and Role: * Germaine Bray MD [...] 2023 TIME: 3:28 PM PAGER/CONTACT #: Normal [facility] SURGICAL PATHOLOGYon 023 CASE REPORT Normal [facility] Comment on above: Order Comment: Speci men Type: TISSUE SPECIMENOrdering Facility: [facility] Address: [address] [place] [id number] Result Comment: [facility]urg [facility] Pathology Report Case: [id number] Authorizing Provider: Germaine Bray MD Collected: 05/13/2023 03:26 PM Ordering Location: [facility] Received: 05/14/2023 08:23 AM Pathologist: Claudette Altamirano MD Specimen: ANTRUM (STOMACH) BIOPSY Performed By: #### S ####[facility] LABORATORYIA [id number] [place] [address] [facility] DIAGNOSIS COMMENT Normal [facility] Comment on above: Order Comment: Speci men Type: TISSUE SPECIMENOrdering Facility: [facility] Address: [address] [place] [address] Result Comment: Konstantin arias Developed Test (LDT) Disclaimer: Performance characteristics of immunohistochemical, immunofluorescent and chromogenic in-situ hybridization tests have been determined by the performing laboratory within [facility]???s Adalid Starr [facility] Pathology and Laboratory Medicine [place] ([facility], [facility], [facility], [facility], [facility], or [facility]) in a manner consistent with CLIA requirements. One or more of these tests have not been cleared or approved by the FDA. [facility] is regulated under CLIA as qualified to perform high-complexity testing. These tests are used for clinical purposes. They should not be regarded as investigational or for research. Positive and negative controls stain appropriately. Performed By: #### S ####[facility]ITAL[facility] [id number] [address] FINAL DIAGNOSIS Normal [facility] Comment on above: Order Comment: Speci men Type: TISSUE SPECIMENOrdering Facility: [facility] Address: [address] [place] [address] Result Comment: A. A ntrum (stomach), biopsy: -- Antral and oxyntic type gastric mucosa with changes of reactive gastropathy and chronic inactive gastritis. -- Immunohistochemical stain for H. Pylori negative for microorganisms. Performed By: #### S ####[facility] LABORATORYIA [id number] [place] [phone] [facility] FINAL PERFORMING LAB [facility] Comment on above: Order Comment: Speci men Type: TISSUE SPECIMENOrdering Facility: [facility] Address: [address] [place] [address] Result Comment: Diag nostic interpretation performed at [facility], [address] [place] [address] CLIA# [id number] Supervisor Customer Complaint Service: Colton Gamble M.D. Performed By: #### S ####[facility]ORATORYIA [id number] [place] [phone] [facility] [place] GROSS DESCRIPTION Normal [facility] Comment on above: Order Comment: Speci men Type: TISSUE SPECIMENOrdering Facility: [facility] Address: [facility] [place] [phone] Result Comment: A. A NTRUM (STOMACH) BIOPSY Received in formalin labeled "antrum (stomach) biopsy" are multiple pieces of manuel, soft tissue aggregating to 1.5 x 0.2 x 0.2 cm. Totally submitted in one cassette. Gross examination performed at [facility], [address] [place] [address] CLIA# [id number] [facility] May 14, 2023 12:16 PM Performed By: #### S ####[facility] LABORATORYCLIA [id number] [place] [phone] [place] Upper GI endoscopy 05-13- 023 Upper GI endoscopy [facility] Gastrointestinal Endoscopy Patient Name: Douglas Callaway Procedure Date: 05/13/2023 3:07 PM Date of : 1955 Admit Type: Outpatient Room: [place] [address] Gender: Male Note Status: Finalized Attending MD: [...] dose tomorrow. Procedure Code(s): --- Professional --- 96037, Esophagogastroduodenoscopy, flexible, transoral; with biopsy, single or multiple --- Technical --- 93082, Esophagogastroduodenoscopy, flexible, transoral; with biopsy, single or multiple Diagnosis Code(s): --- Professional --- K29.70, Gastritis, unspecified, without bleeding R12, Heartburn --- Technical --- K29.70, Gastritis, unspecified, without bleeding R12, Heartburn CPT copyright 2020 [employer]. All rights reserved. The codes documented in this report are preliminary and upon bilingual legal assistant review may be revised to meet current compliance requirements. Attending Participation: I personally performed the entire procedure. Scope In: 3:21:25 PM Scope Out: 3:27:00 PM MD Germaine Tracey MD 05/13/2023 3:42:20 PM This report has been signed electronically by Germaine Bray MD Number of Addenda: 0 Note Initiated On: 05/13/2023 3:07 PM Normal [facility] NM GASTRIC EMPTYING SOLIDon 04-22-2023 NM [...] RATE OF GASTRIC EMPTYING OF SOLID MEAL. Lead Security Officer: SEN Transcribe Date/Time: Apr 22 2023 2:25P Dictated by : CINDY NARVAEZ MD This examination was interpreted and the report reviewed and electronically signed by: CINDY NARVAEZ MD on Apr 22 2023 2:27PM EST [id number] Normal [facility] Hazel 04-08-2023 [facility] Telephone (AGGENS4) DOUGLAS CALLAWAY JR ([id number]) 1955 M Date Time Provider Department 04/08/23 GERMAINE BRAY4 During your visit today, we recorded the [...] Status:Closed by SPRING REILLY on 04/09/23 Normal [facility] CREATININE BLDon 04-08-2023 Creatinine [Mass/Vol] 1.27 mg/dL High 0.73-1.22 [facility] Comment on above: Order Comment: Speci men Type: BLOOD SPECIMENOrdering Facility: [facility] Address: [address] [place] [address] Performed By: #### C RET1 ####[facility] [id number] [place] [address] [place] ESTIMATED GLOMERULAR FILTRATION RATE 61 mL/min/1.73m??? Normal >=60 [facility] Comment on above: Order Comment: Speci men Type: BLOOD SPECIMENOrdering Facility: [facility] Address: [address] [place] [address] Result Comment: Poppy mated Glomerular Filtration Rate [...] actual GFR. Performed By: #### C RET1 ####[facility] [id number] [place] [address] [place] [address] [address] ABD/PEL W IVCONon 023 CT ABD/PEL W IVCON * * *Final Report* * * DATE OF EXAM: Apr 08 2023 3:35PM [facility] 0530 - CT ABD/PEL W IVCON [...] Degenerative changes. Lower thorax: No acute findings. Data Control Clerk Supervisor (topogram) images: No additional findings. IMPRESSION: No acute findings in the abdomen or pelvis. Biliary stents appear patent and properly positioned. No biliary ductal dilatation. Lead Security Officer: [facility] Transcribe Date/Time: Apr 10 2023 4:35P Dictated by : KEVIN JOHN MD This examination was interpreted and the report reviewed and electronically signed by: KEVIN JOHN MD on Apr 10 2023 4:44PM EST [id number] Normal [facility] CNOVon 04-06-2023 CNOV Office Visit (AGGENS 4) DOUGLAS CALLAWAY JR ([id number]) 1955 M Date Time Provider Department 04/06/23 [...] after that visit. Today he reports a "resurgence" of symptoms - he endorses episodes of [...] ; CABG x 3 EGD 08/[facility] at [facility] ERCP STENT PLACEMENT BILIARY/PANCREATIC DUCT 09/02/2021 Dr Yarbrough GI TRANSIT AND PRES CARLEY WIRELESS CAPSULE W/INTERP 01/08/2021 Smart Pill-delayed gastric emptying; INCISIONAL BIOPSY SKIN SINGLE LESION biopsy of mass over right eye; benign LAPAROSCOPIC CHOLECYSTECTOMY 09/02/2021 PER ORAL PYLOROMYOTOMY (POP) PROCEDURE (COMP 16672) 06/11/2021 Dr. Bray REMV CATARACT EXTRACAP,INSERT LENS [...] at bedtime. (more content not included)... Normal [facility] Absolute lymphocyte counton 07-16-2022 Lymphocytes Auto (Unsp spec) [#/Vol] 1.82 10*3/uL 0.83-4.51 [facility] Work Phone: Basophil percentageon 2021 Basophils/100 WBC (Bld) 0.3 % 0-1 [facility] Work Phone: [phone] Bilirubin [Mass/Vol] 0.60 mg/dL 0.20-1.00 [facility] Work Phone: [phone] Comment on above: For patients on eltr ombopag therapy, use of Dimension [place] TBIL is not recommended. Chloride [Moles/Vol] 103 mmol/L 98-107 [facility] Work Phone: Cholesterol [Mass/Vol] 95 mg/dL <200 [facility] Work Phone: [phone] Comment on above: <200 mg/dL Desirable 200-240 mg/dL Borderline >240 mg/dL High Risk Eosinophils/100 WBC (Bld) 2.9 % 0-5 [facility] Work Phone: [phone] Glucose [Mass/Vol] 202 mg/dL 74-106 [facility] Work Phone: Comment on above: Glucose result great er than or equal to 200 mg/dLsuggests DIABETES MELLITUS per A.D.A. criteria. Neutrophils (Bld) [#/Vol] 4.5 10*3/uL 2.0-7.7 [facility] Work Phone: Neutrophils/100 WBC (Bld) 58.6 % 47-70 [facility] Work Phone: Potassium [Moles/Vol] 4.3 mmol/L 3.5-5.1 [facility] Work Phone: [phone] Protein [Mass/Vol] 6.6 g/dL 6.4-8.2 [facility] Work Phone: [phone] Sodium [Moles/Vol] 139 mmol/L 136-145 [facility] Work Phone: [phone] Triglyceride [Mass/Vol] 165 mg/dL <199 [facility] Work Phone: [phone] Comment on above: The drugs N-Acetylcy steine and Metamizole may falsely depress this assay.Serum Triglycerides Reference Interval Normal <150 mg/dL Borderline high 150 - 199 mg/dL High 200 - 499 mg/dL Very High > or = 500 mg/dL WBC (Bld) [#/Vol] 7.6 10*3/uL 4.4-11.0 [facility] Work Phone: [phone] Blood erythrocytes count (nu mber/volume)on 07-16-2022 RBC (Bld) [#/Vol] 4.51 10*6/uL 4.6-6.2 [facility] Work Phone: [phone] Blood hemoglobin measurement (mass/volume)on 07-16-2022 Hemoglobin (Bld) [Mass/Vol] 13.9 g/dL 13.0-16.5 [facility] Work Phone: [phone] Blood lymphocytes/100 leukoc yteson 07-16-2022 Lymphocytes/100 WBC (Bld) 23.9 % 19-41 [facility] Work Phone: [phone] Blood monocytes/100 leukocyt eson 07-16-2022 Monocytes/100 WBC (Bld) 13.4 % 0-10 [facility] Work Phone: [phone] Blood platelet mean volumeon 07-16-2022 Platelet mean volume (Bld) [Entitic vol] 10.6 fL 6.2-12.0 [facility] Work Phone: [phone] Determination of erythrocyte mean corpuscular volume (MCV)on 07-16-2022 MCV (RBC) [Entitic vol] 94.0 fL 80-94 [facility] Work Phone: [phone] Hematocrit Auto (Bld) [Volum e fraction]on 07-16-2022 Hematocrit (Bld) [Volume fraction] 42.4 % 40-54 [facility] Work Phone: [phone] Iron measurement (mass/mass) on 07-16-2022 Iron (Unsp spec) [Mass/Mass] 73 ug/dL 65-175 [facility] Work Phone: [phone] Laboratory - Chemistry and C hemistry - challengeon 07-16-2022 ALP [Catalytic activity/Vol] 186 U/L 45-117 [facility] Work Phone: [phone] ALT [Catalytic activity/Vol] 29 U/L 16-61 [facility] Work Phone: [phone] CO2 [Moles/Vol] 29.0 mmol/L 21.0-32.0 [facility] Work Phone: [phone] Globulin (S) [Mass/Vol] 3.4 g/dL 2.2-4.2 [facility] Work Phone: [phone] Urea nitrogen/Creatinine [Mass ratio] 12.4 mg/mg 10-20 [facility] Work Phone: [phone] Laboratory - Hematology and Cell countson 07-16-2022 Erythrocyte distribution width (RBC) [Entitic vol] 45.5 fL 35.1-43.9 [facility] Work Phone: [phone] Erythrocyte distribution width (RBC) [Ratio] 13.4 % 11.6-14.6 [facility] Work Phone: [phone] Immature granulocytes/100 WBC (Bld) 0.900 % 0.0-0.9 [facility] Work Phone: [phone] Comment on above: IG% - Immature Granu locytes (promyelocytes, myelocytes and metamyelocytes) > 1% indicates that a LEFT SHIFT is Present. MCH (RBC) [Entitic mass] 30.8 pg 27.0-32.0 [facility] Work Phone: Nucleated RBC/100 WBC (Bld) [Ratio] 0 % 0-5 [facility] Work Phone: MCHC Auto (RBC) [Mass/Vol]on 07-16-2022 MCHC (RBC) [Mass/Vol] 32.8 g/dL 32-36 [facility] Work Phone: No Panel Informationon 07-16 Estimated GFR (MDRD) Amer 77 mL/min >60 [facility] Work Phone: Comment on above: GFR Calc Estimated GFR (MDRD) Non-Af Amer 63 mL/min >60 [facility] Work Phone: Comment on above: Non- GFR Calc Thyroid Stimulating Hormone (TSH) 2.96 uIU/mL 0.358-3.74 [facility] Work Phone: Total Iron Binding Capacity 329 ug/dL 250-450 [facility] Work Phone: Urine Microalbumin/Creati nine Ratio 262.9 mg/g CRE <30 [facility] Work Phone: Vitamin D 25-Hydroxy 54.5 ng/mL [facility] Work Phone: Comment on above: Vitamin D 25(OH) Sta tus Range Deficiency <20 ng/mL (50nmol/L) Insufficiency 20 - 30 ng/mL (50 - 75 nmol/L) Sufficiency 30 - 100 ng/mL (75 - 250 nmol/L) Toxicity >100 ng/mL (>250 nmol/L) Platelets bldon 07-16-2022 Platelets (Bld) [#/Vol] 214 10*3/uL 150-450 [facility] Work Phone: [phone] Serum or plasma albumin carley urement (mass/volume)on 07-16-2022 Albumin [Mass/Vol] 3.2 g/dL 3.2-5.0 [facility] Work Phone: [phone] Serum or plasma albumin/glob ulin mass ratioon 07-16-2022 Albumin/Globulin [Mass ratio] 0.9 {ratio} 0.9-2.4 [facility] Work Phone: Serum or plasma calcium carley urement (mass/volume)on 07-16-2022 Calcium [Mass/Vol] 8.9 mg/dL 8.5-10.1 [facility] Work Phone: Serum or plasma cholesterol in HDL measurement (mass/volume)on 07-16-2022 Cholesterol in HDL [Mass/Vol] 47 mg/dL >40 [facility] Work Phone: Comment on above: The drugs N-Acetylcy steine and Metamizole may falsely depress this assay. Reference Range HDL <40 mg/dL Low HDL Cholesterol HDL >or= 60 mg/dL High HDL Cholesterol Serum or plasma cholesterol in VLDL measurement (mass/volume)on 07-16-2022 Cholesterol in VLDL [Mass/Vol] 33 mg/dL 5-40 [facility] Work Phone: Serum or plasma creatinine m easurement (mass/volume)on 07-16-2022 Creatinine [Mass/Vol] 1.21 mg/dL 0.70-1.30 [facility] Work Phone: Comment on above: The validity of the calculated GFR & GFRAA in patients over 70 years has not been determined. Clinical correlation is essential. Serum or plasma ferritin maryjo surement (mass/volume)on 07-16-2022 Ferritin [Mass/Vol] 38 ng/mL 26-388 [facility] Work Phone: [phone] Serum or plasma iron saturat ion measurement (mass fraction)on 07-16-2022 Iron saturation [Mass fraction] 22.2 % 15.0-55.0 [facility] Work Phone: Serum or plasma low density lipoprotein (LDL) cholesterol measurement (mass/volume)on 07-16-2022 Cholesterol in LDL [Mass/Vol] 15 mg/dL 0-130 [facility] Work Phone: Serum or plasma urea nitroge n measurement (mass/volume)on 07-16-2022 Urea nitrogen [Mass/Vol] 15 mg/dL 7-18 [facility] Work Phone: [phone] Thin prep Papanicolaou smear with manual screeningon 07-16-2022 Thin prep Papanicolaou smear with manual screening 23 U/L 15-37 [facility] Work Phone: [phone] Thin prep Papanicolaou smear with manual screening 7 5-15 [facility] Work Phone: [phone] Thin prep Papanicolaou smear with manual screening 305.0 mg/L NO RANGE EST. [facility] Work Phone: [phone] Urine creatinine measurement (mass/volume)on 07-16-2022 Creatinine (U) [Mass/Vol] 116.00 mg/dL NO RANGE EST. [facility] Work Phone: [phone] Whole blood hemoglobin A1c/t otal hemoglobin ratio (mass fraction)on 07-16-2022 HbA1c (Bld) [Mass fraction] 6.6 % 3.8-5.6 [facility] Work Phone: [phone] Comment on above: Normal < 5.7 % Predi abetic 5.7 - 6.4 % Diabetic >or= 6.5 % Please note range changes. Absolute lymphocyte counton 02-12-2022 Lymphocytes Auto (Unsp spec) [#/Vol] 1.81 10*3/uL 0.83-4.51 [facility] Work Phone: [phone] Basophil percentageon 2021 Basophils/100 WBC (Bld) 0.3 % 0-1 [facility] Work Phone: [phone] Bilirubin [Mass/Vol] 0.50 mg/dL 0.20-1.00 [facility] Work Phone: [phone] Comment on above: For patients on eltr ombopag therapy, use of Dimension [place] TBIL is not recommended. Chloride [Moles/Vol] 102 mmol/L 98-107 [facility] Work Phone: [phone] Cholesterol [Mass/Vol] 99 mg/dL <200 [facility] Work Phone: [phone] Comment on above: <200 mg/dL Desirable 200-240 mg/dL Borderline >240 mg/dL High Risk Eosinophils/100 WBC (Bld) 4.2 % 0-5 [facility] Work Phone: [phone] Glucose [Mass/Vol] 120 mg/dL 74-106 [facility] Work Phone: Comment on above: Fasting Glucose resu lt from 100 to 125 mg/dL suggests IMPAIRED HOMEOSTASIS per A.D.A. criteria. Neutrophils (Bld) [#/Vol] 4.1 10*3/uL 2.0-7.7 [facility] Work Phone: Neutrophils/100 WBC (Bld) 56.9 % 47-70 [facility] Work Phone: [phone] Potassium [Moles/Vol] 4.4 mmol/L 3.5-5.1 [facility] Work Phone: [phone] Protein [Mass/Vol] 6.9 g/dL 6.4-8.2 [facility] Work Phone: [phone] Sodium [Moles/Vol] 138 mmol/L 136-145 [facility] Work Phone: [phone] Triglyceride [Mass/Vol] 195 mg/dL [facility] Work Phone: Comment on above: The drugs N-Acetylcy steine and Metamizole may falsely depress this assay.Serum Triglycerides Reference Interval Normal <150 mg/dL Borderline high 150 - 199 mg/dL High 200 - 499 mg/dL Very High > or = 500 mg/dL WBC (Bld) [#/Vol] 7.2 10*3/uL 4.4-11.0 [facility] Work Phone: Blood erythrocytes count (nu mber/volume)on 02-12-2022 RBC (Bld) [#/Vol] 4.18 10*6/uL 4.6-6.2 [facility] Work Phone: Blood hemoglobin measurement (mass/volume)on 02-12-2022 Hemoglobin (Bld) [Mass/Vol] 12.4 g/dL 13.0-16.5 [facility] Work Phone: [phone] Blood lymphocytes/100 leukoc yteson 02-12-2022 Lymphocytes/100 WBC (Bld) 25.2 % 19-41 [facility] Work Phone: Blood monocytes/100 leukocyt eson 02-12-2022 Monocytes/100 WBC (Bld) 13.1 % 0-10 [facility] Work Phone: Blood platelet mean volumeon 02-12-2022 Platelet mean volume (Bld) [Entitic vol] 10.3 fL 6.2-12.0 [facility] Work Phone: Determination of erythrocyte mean corpuscular volume (MCV)on 02-12-2022 MCV (RBC) [Entitic vol] 96.7 fL 80-94 [facility] Work Phone: Hematocrit Auto (Bld) [Volum e fraction]on 02-12-2022 Hematocrit (Bld) [Volume fraction] 40.4 % 40-54 [facility] Work Phone: Iron measurement (mass/mass) on 02-12-2022 Iron (Unsp spec) [Mass/Mass] 47 ug/dL 65-175 [facility] Work Phone: Laboratory - Chemistry and C hemistry - challengeon 02-12-2022 ALP [Catalytic activity/Vol] 173 U/L 45-117 [facility] Work Phone: ALT [Catalytic activity/Vol] 35 U/L 16-61 [facility] Work Phone: CO2 [Moles/Vol] 31.0 mmol/L 21.0-32.0 [facility] Work Phone: Globulin (S) [Mass/Vol] 3.5 g/dL 2.2-4.2 [facility] Work Phone: Urea nitrogen/Creatinine [Mass ratio] 19.1 mg/mg 10-20 [facility] Work Phone: Laboratory - Hematology and Cell countson 02-12-2022 Erythrocyte distribution width (RBC) [Entitic vol] 54.0 fL 35.1-43.9 [facility] Work Phone: [phone] Erythrocyte distribution width (RBC) [Ratio] 15.4 % 11.6-14.6 [facility] Work Phone: Immature granulocytes/100 WBC (Bld) 0.300 % 0.0-0.9 [facility] Work Phone: [phone] Comment on above: IG% - Immature Granu locytes (promyelocytes, myelocytes and metamyelocytes) > 1% indicates that a LEFT SHIFT is Present. MCH (RBC) [Entitic mass] 29.7 pg 27.0-32.0 [facility] Work Phone: Nucleated RBC/100 WBC (Bld) [Ratio] 0 % 0-5 [facility] Work Phone: [phone] MCHC Auto (RBC) [Mass/Vol]on 02-12-2022 MCHC (RBC) [Mass/Vol] 30.7 g/dL 32-36 [facility] Work Phone: No Panel Informationon 02-12 Estimated GFR (MDRD) Amer 70 mL/min >60 [facility] Work Phone: Comment on above: GFR Calc Estimated GFR (MDRD) Non-Af Amer 58 mL/min >60 [facility] Work Phone: Comment on above: Non- GFR Calc Total Iron Binding Capacity 362 ug/dL 250-450 [facility] Work Phone: Urine Microalbumin/Creati nine Ratio 236.5 mg/g CRE <30 [facility] Work Phone: Vitamin D 25-Hydroxy 52.2 ng/mL [facility] Work Phone: [phone] Comment on above: Vitamin D 25(OH) Sta tus Range Deficiency <20 ng/mL (50nmol/L) Insufficiency 20 - 30 ng/mL (50 - 75 nmol/L) Sufficiency 30 - 100 ng/mL (75 - 250 nmol/L) Toxicity >100 ng/mL (>250 nmol/L) Platelets bldon 02-12-2022 Platelets (Bld) [#/Vol] 280 10*3/uL 150-450 [facility] Work Phone: Serum or plasma albumin carley urement (mass/volume)on 02-12-2022 Albumin [Mass/Vol] 3.4 g/dL 3.2-5.0 [facility] Work Phone: Serum or plasma albumin/glob ulin mass ratioon 02-12-2022 Albumin/Globulin [Mass ratio] 1.0 {ratio} 0.9-2.4 [facility] Work Phone: Serum or plasma calcium carley urement (mass/volume)on 02-12-2022 Calcium [Mass/Vol] 9.8 mg/dL 8.5-10.1 [facility] Work Phone: Serum or plasma cholesterol in HDL measurement (mass/volume)on 02-12-2022 Cholesterol in HDL [Mass/Vol] 40 mg/dL [facility] Work Phone: Comment on above: The drugs N-Acetylcy steine and Metamizole may falsely depress this assay. Reference Range HDL <40 mg/dL Low HDL Cholesterol HDL >or= 60 mg/dL High HDL Cholesterol Serum or plasma cholesterol in VLDL measurement (mass/volume)on 02-12-2022 Cholesterol in VLDL [Mass/Vol] 39 mg/dL 5-40 [facility] Work Phone: Serum or plasma creatinine m easurement (mass/volume)on 02-12-2022 Creatinine [Mass/Vol] 1.31 mg/dL 0.70-1.30 [facility] Work Phone: Comment on above: The validity of the calculated GFR & GFRAA in patients over 70 years has not been determined. Clinical correlation is essential. Serum or plasma ferritin maryjo surement (mass/volume)on 02-12-2022 Ferritin [Mass/Vol] 52 ng/mL 26-388 [facility] Work Phone: Serum or plasma iron saturat ion measurement (mass fraction)on 02-12-2022 Iron saturation [Mass fraction] 13.0 % 15.0-55.0 [facility] Work Phone: Serum or plasma low density lipoprotein (LDL) cholesterol measurement (mass/volume)on 02-12-2022 Cholesterol in LDL [Mass/Vol] 20 mg/dL 0-130 [facility] Work Phone: Serum or plasma urea nitroge n measurement (mass/volume)on 02-12-2022 Urea nitrogen [Mass/Vol] 25 mg/dL 7-18 [facility] Work Phone: Thin prep Papanicolaou smear with manual screeningon 02-12-2022 Thin prep Papanicolaou smear with manual screening 29 U/L 15-37 [facility] Work Phone: Thin prep Papanicolaou smear with manual screening 5 5-15 [facility] Work Phone: Thin prep Papanicolaou smear with manual screening 211.0 mg/L NO RANGE EST. [facility] Work Phone: Urine creatinine measurement (mass/volume)on 02-12-2022 Creatinine (U) [Mass/Vol] 89.20 mg/dL NO RANGE EST. [facility] Work Phone: Whole blood hemoglobin A1c/t otal hemoglobin ratio (mass fraction)on 02-12-2022 HbA1c (Bld) [Mass fraction] 6.1 % 3.8-5.6 [facility] Work Phone: Comment on above: Normal < 5.7 % Predi abetic 5.7 - 6.4 % Diabetic >or= 6.5 % Please note range changes. Glucose Glucometer (BldC) [M ass/Vol]on 01-21-2022 Glucose [Mass/Vol] 158 mg/dL 74-106 [facility] Work Phone: Comment on above: MANAGEMENT OF PATIEN T CARE PER NURSING PROTOCOL Absolute lymphocyte counton 01-06-2022 Lymphocytes Auto (Unsp spec) [#/Vol] 1.93 10*3/uL 0.83-4.51 [facility] Work Phone: Basophil percentageon 2021 Basophils/100 WBC (Bld) 0.3 % 0-1 [facility] Work Phone: [phone] Bilirubin [Mass/Vol] 0.60 mg/dL 0.20-1.00 [facility] Work Phone: Comment on above: For patients on eltr ombopag therapy, use of Dimension [place] TBIL is not recommended. Chloride [Moles/Vol] 106 mmol/L 98-107 [facility] Work Phone: Eosinophils/100 WBC (Bld) 3.5 % 0-5 [facility] Work Phone: Glucose [Mass/Vol] 168 mg/dL 74-106 [facility] Work Phone: Comment on above: Fasting Glucose resu lt greater than or equal to 126 mg/dL suggests DIABETES MELLITUS per A.D.A. criteria. Neutrophils (Bld) [#/Vol] 4.0 10*3/uL 2.0-7.7 [facility] Work Phone: Neutrophils/100 WBC (Bld) 56.2 % 47-70 [facility] Work Phone: Potassium [Moles/Vol] 4.1 mmol/L 3.5-5.1 [facility] Work Phone: Protein [Mass/Vol] 7.2 g/dL 6.4-8.2 [facility] Work Phone: Sodium [Moles/Vol] 140 mmol/L 136-145 [facility] Work Phone: WBC (Bld) [#/Vol] 7.1 10*3/uL 4.4-11.0 [facility] Work Phone: Blood erythrocytes count (nu mber/volume)on 01-06-2022 RBC (Bld) [#/Vol] 4.81 10*6/uL 4.6-6.2 [facility] Work Phone: Blood hemoglobin measurement (mass/volume)on 01-06-2022 Hemoglobin (Bld) [Mass/Vol] 14.0 g/dL 13.0-16.5 [facility] Work Phone: Blood lymphocytes/100 leukoc yteson 01-06-2022 Lymphocytes/100 WBC (Bld) 27.3 % 19-41 [facility] Work Phone: Blood monocytes/100 leukocyt eson 01-06-2022 Monocytes/100 WBC (Bld) 12.3 % 0-10 [facility] Work Phone: Blood platelet mean volumeon 01-06-2022 Platelet mean volume (Bld) [Entitic vol] 10.6 fL 6.2-12.0 [facility] Work Phone: [phone] Determination of erythrocyte mean corpuscular volume (MCV)on 01-06-2022 MCV (RBC) [Entitic vol] 92.1 fL 80-94 [facility] Work Phone: [phone] Hematocrit Auto (Bld) [Volum e fraction]on 01-06-2022 Hematocrit (Bld) [Volume fraction] 44.3 % 40-54 [facility] Work Phone: Iron measurement (mass/mass) on 01-06-2022 Iron (Unsp spec) [Mass/Mass] 55 ug/dL 65-175 [facility] Work Phone: Laboratory - Chemistry and C hemistry - challengeon 01-06-2022 ALP [Catalytic activity/Vol] 184 U/L 45-117 [facility] Work Phone: ALT [Catalytic activity/Vol] 58 U/L 16-61 [facility] Work Phone: [phone] CO2 [Moles/Vol] 25.0 mmol/L 21.0-32.0 [facility] Work Phone: Globulin (S) [Mass/Vol] 3.7 g/dL 2.2-4.2 [facility] Work Phone: [phone] Urea nitrogen/Creatinine [Mass ratio] 18.9 mg/mg 10-20 [facility] Work Phone: [phone] Laboratory - Hematology and Cell countson 01-06-2022 Erythrocyte distribution width (RBC) [Entitic vol] 51.3 fL 35.1-43.9 [facility] Work Phone: [phone] Erythrocyte distribution width (RBC) [Ratio] 15.1 % 11.6-14.6 [facility] Work Phone: [phone] Immature granulocytes/100 WBC (Bld) 0.400 % 0.0-0.9 [facility] Work Phone: [phone] Comment on above: IG% - Immature Granu locytes (promyelocytes, myelocytes and metamyelocytes) > 1% indicates that a LEFT SHIFT is Present. MCH (RBC) [Entitic mass] 29.1 pg 27.0-32.0 [facility] Work Phone: [phone] Nucleated RBC/100 WBC (Bld) [Ratio] 0 % 0-5 [facility] Work Phone: [phone] MCHC Auto (RBC) [Mass/Vol]on 01-06-2022 MCHC (RBC) [Mass/Vol] 31.6 g/dL 32-36 [facility] Work Phone: No Panel Informationon 01-06 Estimated GFR (MDRD) Amer 73 mL/min >60 [facility] Work Phone: [phone] Comment on above: GFR Calc Estimated GFR (MDRD) Non-Af Amer 60 mL/min >60 [facility] Work Phone: Comment on above: Non- GFR Calc Total Iron Binding Capacity 368 ug/dL 250-450 [facility] Work Phone: Platelets bldon 01-06-2022 Platelets (Bld) [#/Vol] 249 10*3/uL 150-450 [facility] Work Phone: [phone] Serum or plasma albumin carley urement (mass/volume)on 01-06-2022 Albumin [Mass/Vol] 3.5 g/dL 3.2-5.0 [facility] Work Phone: [phone] Serum or plasma albumin/glob ulin mass ratioon 01-06-2022 Albumin/Globulin [Mass ratio] 0.9 {ratio} 0.9-2.4 [facility] Work Phone: [phone] Serum or plasma calcium carley urement (mass/volume)on 01-06-2022 Calcium [Mass/Vol] 9.3 mg/dL 8.5-10.1 [facility] Work Phone: Serum or plasma creatinine m easurement (mass/volume)on 01-06-2022 Creatinine [Mass/Vol] 1.27 mg/dL 0.70-1.30 [facility] Work Phone: Comment on above: The validity of the calculated GFR & GFRAA in patients over 70 years has not been determined. Clinical correlation is essential. Serum or plasma ferritin maryjo surement (mass/volume)on 01-06-2022 Ferritin [Mass/Vol] 18 ng/mL 26-388 [facility] Work Phone: Serum or plasma iron saturat ion measurement (mass fraction)on 01-06-2022 Iron saturation [Mass fraction] 14.9 % 15.0-55.0 [facility] Work Phone: Serum or plasma urea nitroge n measurement (mass/volume)on 01-06-2022 Urea nitrogen [Mass/Vol] 24 mg/dL 7-18 [facility] Work Phone: Thin prep Papanicolaou smear with manual screeningon 01-06-2022 Thin prep Papanicolaou smear with manual screening 39 U/L 15-37 [facility] Work Phone: Thin prep Papanicolaou smear with manual screening 9 5-15 [facility] Work Phone: Clinical Summary: Oumou max 12-16-2021 [facility] [place] Invalid Interpretation Code [facility] Work Phone: Office Visit: New/Est - 1st visit with physician, Rm: 8on 12-16-2021 NEGATED: Highlighted rowxray history of the right shoulder on 09/22/2021 at [place] Invalid Interpretation Code [facility] Work Phone: Basophil percentageon 2021 WBC (Bld) [#/Vol] 6.5 10*3/uL 4.4-11.0 [facility] Work Phone: Blood erythrocytes count (nu mber/volume)on 12-11-2021 RBC (Bld) [#/Vol] 4.63 10*6/uL 4.6-6.2 [facility] Work Phone: Blood hemoglobin measurement (mass/volume)on 12-11-2021 Hemoglobin (Bld) [Mass/Vol] 13.3 g/dL 13.0-16.5 [facility] Work Phone: Blood platelet mean volumeon 12-11-2021 Platelet mean volume (Bld) [Entitic vol] 10.9 fL 6.2-12.0 [facility] Work Phone: Determination of erythrocyte mean corpuscular volume (MCV)on 12-11-2021 MCV (RBC) [Entitic vol] 89.8 fL 80-94 [facility] Work Phone: Erythrocyte sedimentation ra love 12-11-2021 ESR (Bld) [Velocity] 8 mm/h 0-20 [facility] Work Phone: Hematocrit Auto (Bld) [Volum e fraction]on 12-11-2021 Hematocrit (Bld) [Volume fraction] 41.6 % 40-54 [facility] Work Phone: Laboratory - Hematology and Cell countson 12-11-2021 Erythrocyte distribution width (RBC) [Entitic vol] 48.6 fL 35.1-43.9 [facility] Work Phone: [phone] Erythrocyte distribution width (RBC) [Ratio] 14.7 % 11.6-14.6 [facility] Work Phone: [phone] MCH (RBC) [Entitic mass] 28.7 pg 27.0-32.0 [facility] Work Phone: MCHC Auto (RBC) [Mass/Vol]on 12-11-2021 MCHC (RBC) [Mass/Vol] 32.0 g/dL 32-36 [facility] Work Phone: Platelets bldon 12-11-2021 Platelets (Bld) [#/Vol] 242 10*3/uL 150-450 [facility] Work Phone: Serum or plasma C reactive p rotein measurement (mass/volume)on 12-11-2021 CRP [Mass/Vol] mg/L 0.0-3.0 [facility] Work Phone: Comment on above: C-Reactive Protein ( CRP) provides useful information for thediagnosis, therapy and monitoring of inflammatory processesand associated diseases. For the evaluation of Relative Riskfor Cardiovascular Disease, a High Sensitivity CRP (HSCRP)should be ordered. Whole blood hemoglobin A1c/t otal hemoglobin ratio (mass fraction)on 12-11-2021 HbA1c (Bld) [Mass fraction] 6.3 % 3.8-5.6 [facility] Work Phone: Comment on above: Normal < 5.7 % Predi abetic 5.7 - 6.4 % Diabetic >or= 6.5 % Please note range changes. Clinical Summary: JeramyNaterivera max 11-28-2021 [facility] OP Visit Invalid Interpretation Code [facility] Work Phone: Office Visit: Consult, Rm: 1 on 11-28-2021 NEGATED: Highlighted rowTobacco smoking status Tobacco smoking status Invalid Interpretation Code [facility] Work Phone: NEGATED: Highlighted rowxray history of the Right Shoulder on 05/01/2021 at [facility], of the Right Shoulder on 09/22/2021 at [facility] Invalid Interpretation Code [facility] Work Phone: Absolute lymphocyte counton 11-07-2021 Lymphocytes Auto (Unsp spec) [#/Vol] 1.56 10*3/uL 0.83-4.51 [facility] Work Phone: Basophil percentageon 2021 Basophils/100 WBC (Bld) 0.3 % 0-1 [facility] Work Phone: Bilirubin [Mass/Vol] 0.60 mg/dL 0.20-1.00 [facility] Work Phone: [phone] Comment on above: For patients on eltr ombopag therapy, use of Dimension [place] TBIL is not recommended. Chloride [Moles/Vol] 108 mmol/L 98-107 [facility] Work Phone: [phone] Cholesterol [Mass/Vol] 90 mg/dL <200 [facility] Work Phone: [phone] Comment on above: <200 mg/dL Desirable 200-240 mg/dL Borderline >240 mg/dL High Risk Eosinophils/100 WBC (Bld) 3.1 % 0-5 [facility] Work Phone: [phone] Glucose [Mass/Vol] 138 mg/dL 74-106 [facility] Work Phone: [phone] Comment on above: Fasting Glucose resu lt greater than or equal to 126 mg/dL suggests DIABETES MELLITUS per A.D.A. criteria. Neutrophils (Bld) [#/Vol] 4.8 10*3/uL 2.0-7.7 [facility] Work Phone: [phone] Neutrophils/100 WBC (Bld) 65.2 % 47-70 [facility] Work Phone: [phone] Potassium [Moles/Vol] 4.4 mmol/L 3.5-5.1 [facility] Work Phone: [phone] Protein [Mass/Vol] 7.0 g/dL 6.4-8.2 [facility] Work Phone: [phone] Sodium [Moles/Vol] 141 mmol/L 136-145 [facility] Work Phone: [phone] Triglyceride [Mass/Vol] 161 mg/dL [facility] Work Phone: [phone] Comment on above: The drugs N-Acetylcy steine and Metamizole may falsely depress this assay.Serum Triglycerides Reference Interval Normal <150 mg/dL Borderline high 150 - 199 mg/dL High 200 - 499 mg/dL Very High > or = 500 mg/dL WBC (Bld) [#/Vol] 7.4 10*3/uL 4.4-11.0 [facility] Work Phone: Blood erythrocytes count (nu mber/volume)on 11-07-2021 RBC (Bld) [#/Vol] 4.47 10*6/uL 4.6-6.2 [facility] Work Phone: Blood hemoglobin measurement (mass/volume)on 11-07-2021 Hemoglobin (Bld) [Mass/Vol] 13.0 g/dL 13.0-16.5 [facility] Work Phone: [phone] Blood lymphocytes/100 leukoc yteson 11-07-2021 Lymphocytes/100 WBC (Bld) 21.1 % 19-41 [facility] Work Phone: [phone] Blood monocytes/100 leukocyt eson 11-07-2021 Monocytes/100 WBC (Bld) 10.0 % 0-10 [facility] Work Phone: [phone] Blood platelet mean volumeon 11-07-2021 Platelet mean volume (Bld) [Entitic vol] 11.4 fL 6.2-12.0 [facility] Work Phone: Determination of erythrocyte mean corpuscular volume (MCV)on 11-07-2021 MCV (RBC) [Entitic vol] 92.4 fL 80-94 [facility] Work Phone: Hematocrit Auto (Bld) [Volum e fraction]on 11-07-2021 Hematocrit (Bld) [Volume fraction] 41.3 % 40-54 [facility] Work Phone: Iron measurement (mass/mass) on 11-07-2021 Iron (Unsp spec) [Mass/Mass] 49 ug/dL 65-175 [facility] Work Phone: Laboratory - Chemistry and C hemistry - challengeon 11-07-2021 ALP [Catalytic activity/Vol] 154 U/L 45-117 [facility] Work Phone: ALT [Catalytic activity/Vol] 34 U/L 16-61 [facility] Work Phone: [phone] CO2 [Moles/Vol] 30.0 mmol/L 21.0-32.0 [facility] Work Phone: Globulin (S) [Mass/Vol] 3.7 g/dL 2.2-4.2 [facility] Work Phone: [phone] Urea nitrogen/Creatinine [Mass ratio] 20.4 mg/mg 10-20 [facility] Work Phone: [phone] Laboratory - Hematology and Cell countson 11-07-2021 Erythrocyte distribution width (RBC) [Entitic vol] 54.9 fL 35.1-43.9 [facility] Work Phone: [phone] Erythrocyte distribution width (RBC) [Ratio] 16.3 % 11.6-14.6 [facility] Work Phone: [phone] Immature granulocytes/100 WBC (Bld) 0.300 % 0.0-0.9 [facility] Work Phone: [phone] Comment on above: IG% - Immature Granu locytes (promyelocytes, myelocytes and metamyelocytes) > 1% indicates that a LEFT SHIFT is Present. MCH (RBC) [Entitic mass] 29.1 pg 27.0-32.0 [facility] Work Phone: [phone] Nucleated RBC/100 WBC (Bld) [Ratio] 0 % 0-5 [facility] Work Phone: [phone] MCHC Auto (RBC) [Mass/Vol]on 11-07-2021 MCHC (RBC) [Mass/Vol] 31.5 g/dL 32-36 [facility] Work Phone: [phone] No Panel Informationon 11-07 Estimated GFR (MDRD) Amer 83 mL/min >60 [facility] Work Phone: [phone] Comment on above: GFR Calc Estimated GFR (MDRD) Non-Af Amer 69 mL/min >60 [facility] Work Phone: [phone] Comment on above: Non- GFR Calc Total Iron Binding Capacity 340 ug/dL 250-450 [facility] Work Phone: Platelets bldon 11-07-2021 Platelets (Bld) [#/Vol] 258 10*3/uL 150-450 [facility] Work Phone: Serum or plasma albumin carley urement (mass/volume)on 11-07-2021 Albumin [Mass/Vol] 3.3 g/dL 3.2-5.0 [facility] Work Phone: Serum or plasma albumin/glob ulin mass ratioon 11-07-2021 Albumin/Globulin [Mass ratio] 0.9 {ratio} 0.9-2.4 [facility] Work Phone: Serum or plasma calcium carley urement (mass/volume)on 11-07-2021 Calcium [Mass/Vol] 9.7 mg/dL 8.5-10.1 [facility] Work Phone: Serum or plasma cholesterol in HDL measurement (mass/volume)on 11-07-2021 Cholesterol in HDL [Mass/Vol] 42 mg/dL [facility] Work Phone: Comment on above: The drugs N-Acetylcy steine and Metamizole may falsely depress this assay. Reference Range HDL <40 mg/dL Low HDL Cholesterol HDL >or= 60 mg/dL High HDL Cholesterol Serum or plasma cholesterol in VLDL measurement (mass/volume)on 11-07-2021 Cholesterol in VLDL [Mass/Vol] 32 mg/dL 5-40 [facility] Work Phone: Serum or plasma creatinine m easurement (mass/volume)on 11-07-2021 Creatinine [Mass/Vol] 1.13 mg/dL 0.70-1.30 [facility] Work Phone: Comment on above: The validity of the calculated GFR & GFRAA in patients over 70 years has not been determined. Clinical correlation is essential. Serum or plasma ferritin maryjo surement (mass/volume)on 11-07-2021 Ferritin [Mass/Vol] 21 ng/mL 26-388 [facility] Work Phone: Serum or plasma iron saturat ion measurement (mass fraction)on 11-07-2021 Iron saturation [Mass fraction] 14.4 % 15.0-55.0 [facility] Work Phone: Serum or plasma low density lipoprotein (LDL) cholesterol measurement (mass/volume)on 11-07-2021 Cholesterol in LDL [Mass/Vol] 16 mg/dL 0-130 [facility] Work Phone: [phone] Serum or plasma urea nitroge n measurement (mass/volume)on 11-07-2021 Urea nitrogen [Mass/Vol] 23 mg/dL 7-18 [facility] Work Phone: [phone] Thin prep Papanicolaou smear with manual screeningon 11-07-2021 Thin prep Papanicolaou smear with manual screening 27 U/L 15-37 [facility] Work Phone: [phone] Thin prep Papanicolaou smear with manual screening 3 5-15 [facility] Work Phone: [phone] Whole blood hemoglobin A1c/t otal hemoglobin ratio (mass fraction)on 11-07-2021 HbA1c (Bld) [Mass fraction] 6.0 % 3.8-5.6 [facility] Work Phone: Comment on above: Normal < 5.7 % Predi abetic 5.7 - 6.4 % Diabetic >or= 6.5 % Please note range changes. Basophil percentageon 2021 Bilirubin [Mass/Vol] 0.60 mg/dL 0.20-1.00 [facility] Work Phone: Comment on above: For patients on eltr ombopag therapy, use of Dimension [place] TBIL is not recommended. Chloride [Moles/Vol] 104 mmol/L 98-107 [facility] Work Phone: [phone] Glucose [Mass/Vol] 115 mg/dL 74-106 [facility] Work Phone: [phone] Comment on above: Fasting Glucose resu lt from 100 to 125 mg/dL suggests IMPAIRED HOMEOSTASIS per A.D.A. criteria. Potassium [Moles/Vol] 4.1 mmol/L 3.5-5.1 [facility] Work Phone: [phone] Protein [Mass/Vol] 7.2 g/dL 6.4-8.2 [facility] Work Phone: [phone] Sodium [Moles/Vol] 138 mmol/L 136-145 [facility] Work Phone: Laboratory - Chemistry and C hemistry - challengeon 09-24-2021 ALP [Catalytic activity/Vol] 140 U/L 45-117 [facility] Work Phone: ALT [Catalytic activity/Vol] 33 U/L 16-61 [facility] Work Phone: [phone] CK [Catalytic activity/Vol] 41 U/L 39-308 [facility] Work Phone: [phone] CO2 [Moles/Vol] 27.0 mmol/L 21.0-32.0 [facility] Work Phone: Globulin (S) [Mass/Vol] 3.8 g/dL 2.2-4.2 [facility] Work Phone: [phone] Magnesium [Mass/Vol] 1.7 mg/dL 1.6-2.6 [facility] Work Phone: [phone] Urea nitrogen/Creatinine [Mass ratio] 19.8 mg/mg 10-20 [facility] Work Phone: No Panel Informationon 09-24 Estimated GFR (MDRD) Amer 73 mL/min >60 [facility] Work Phone: Comment on above: GFR Calc Estimated GFR (MDRD) Non-Af Amer 61 mL/min >60 [facility] Work Phone: Comment on above: Non- GFR Calc Serum or plasma albumin carley urement (mass/volume)on 09-24-2021 Albumin [Mass/Vol] 3.4 g/dL 3.2-5.0 [facility] Work Phone: Serum or plasma albumin/glob ulin mass ratioon 09-24-2021 Albumin/Globulin [Mass ratio] 0.9 {ratio} 0.9-2.4 [facility] Work Phone: [phone] Serum or plasma calcium carley urement (mass/volume)on 09-24-2021 Calcium [Mass/Vol] 9.3 mg/dL 8.5-10.1 [facility] Work Phone: [phone] Serum or plasma creatinine m easurement (mass/volume)on 09-24-2021 Creatinine [Mass/Vol] 1.26 mg/dL 0.70-1.30 [facility] Work Phone: Comment on above: The validity of the calculated GFR & GFRAA in patients over 70 years has not been determined. Clinical correlation is essential. Serum or plasma ferritin maryjo surement (mass/volume)on 09-24-2021 Ferritin [Mass/Vol] 15 ng/mL 26-388 [facility] Work Phone: [phone] Serum or plasma urea nitroge n measurement (mass/volume)on 09-24-2021 Urea nitrogen [Mass/Vol] 25 mg/dL 7-18 [facility] Work Phone: [phone] Thin prep Papanicolaou smear with manual screeningon 09-24-2021 Thin prep Papanicolaou smear with manual screening 22 U/L 15-37 [facility] Work Phone: [phone] Thin prep Papanicolaou smear with manual screening 7 5-15 [facility] Work Phone: [phone] Absolute lymphocyte counton 09-04-2021 Lymphocytes Auto (Unsp spec) [#/Vol] 1.01 10*3/uL 0.83-4.51 [facility] Work Phone: [phone] Basophil percentageon 2020 Eosinophils/100 WBC (Bld) 0.4 % 0-5 [facility] Work Phone: [phone] Neutrophils (Bld) [#/Vol] 7.0 10*3/uL 2.0-7.7 [facility] Work Phone: [phone] WBC (Bld) [#/Vol] 9.2 10*3/uL 4.4-11.0 [facility] Work Phone: [phone] Blood erythrocytes count (nu mber/volume)on 09-04-2021 RBC (Bld) [#/Vol] 3.52 10*6/uL 4.6-6.2 [facility] Work Phone: [phone] Blood hemoglobin measurement (mass/volume)on 09-04-2021 Hemoglobin (Bld) [Mass/Vol] 9.9 g/dL 13.0-16.5 [facility] Work Phone: Blood lymphocytes/100 leukoc yteson 09-04-2021 Lymphocytes/100 WBC (Bld) 10.9 % 19-41 [facility] Work Phone: Blood monocytes/100 leukocyt eson 09-04-2021 Monocytes/100 WBC (Bld) 12.0 % 0-10 [facility] Work Phone: Blood platelet mean volumeon 09-04-2021 Platelet mean volume (Bld) [Entitic vol] 10.4 fL 6.2-12.0 [facility] Work Phone: [phone] Determination of erythrocyte mean corpuscular volume (MCV)on 09-04-2021 MCV (RBC) [Entitic vol] 88.9 fL 80-94 [facility] Work Phone: Glucose Glucometer (dC) [M ass/Vol]on 09-04-2021 Glucose [Mass/Vol] 177 mg/dL 70-110 [facility] Work Phone: Comment on above: MANAGEMENT OF PATIEN T CARE PER NURSING PROTOCOL Hematocrit Auto (Bld) [Volum e fraction]on 09-04-2021 Hematocrit (Bld) [Volume fraction] 31.3 % 40-54 [facility] Work Phone: Laboratory - Hematology and Cell countson 09-04-2021 Basophils/100 WBC (Unsp spec) 0.1 % 0-1 [facility] Work Phone: [phone] Erythrocyte distribution width (RBC) [Entitic vol] 45.4 fL 35.1-43.9 [facility] Work Phone: [phone] Erythrocyte distribution width (RBC) [Ratio] 14.2 % 11.6-14.6 [facility] Work Phone: Immature granulocytes/100 WBC (Bld) 0.500 % 0.0-0.9 [facility] Work Phone: [phone] Comment on above: IG% - Immature Granu locytes (promyelocytes, myelocytes and metamyelocytes) > 1% indicates that a LEFT SHIFT is Present. MCH (RBC) [Entitic mass] 28.1 pg 27.0-32.0 [facility] Work Phone: Neutrophils/100 WBC (Bld) 76.1 % 47-70 [facility] Work Phone: [phone] Nucleated RBC/100 WBC (Bld) [Ratio] 0 % 0-5 [facility] Work Phone: MCHC Auto (RBC) [Mass/Vol]on 09-04-2021 MCHC (RBC) [Mass/Vol] 31.6 g/dL 32-36 [facility] Work Phone: [phone] Platelets bldon 09-04-2021 Platelets (Bld) [#/Vol] 178 10*3/uL 150-450 [facility] Work Phone: Basophil percentageon 2020 Chloride [Moles/Vol] 115 mmol/L 98-107 [facility] Work Phone: Glucose [Mass/Vol] 161 mg/dL 74-106 [facility] Work Phone: Comment on above: Fasting Glucose resu lt greater than or equal to 126 mg/dL suggests DIABETES MELLITUS per A.D.A. criteria.Please note revised GLUCOSE reference range effective 2017. Potassium [Moles/Vol] 3.8 mmol/L 3.5-5.1 [facility] Work Phone: Sodium [Moles/Vol] 142 mmol/L 136-145 [facility] Work Phone: Laboratory - Chemistry and C hemistry - challengeon 09-03-2021 CO2 [Moles/Vol] 19.0 mmol/L 21.0-32.0 [facility] Work Phone: Urea nitrogen/Creatinine [Mass ratio] 13.6 mg/mg 10-20 [facility] Work Phone: No Panel Informationon 09-03 Estimated Creatinine Clearance Calc 58.77 ml/min [facility] Work Phone: Estimated GFR (MDRD) Amer 79 mL/min >60 [facility] Work Phone: Comment on above: GFR Calc Estimated GFR (MDRD) Non-Af Amer 65 mL/min >60 [facility] Work Phone: Comment on above: Non- GFR Calc Serum or plasma calcium carley urement (mass/volume)on 09-03-2021 Calcium [Mass/Vol] 8.2 mg/dL 8.5-10.1 [facility] Work Phone: Serum or plasma creatinine m easurement (mass/volume)on 09-03-2021 Creatinine [Mass/Vol] 1.18 mg/dL 0.70-1.30 [facility] Work Phone: Comment on above: The validity of the calculated GFR & GFRAA in patients over 70 years has not been determined. Clinical correlation is essential. Serum or plasma urea nitroge n measurement (mass/volume)on 09-03-2021 Urea nitrogen [Mass/Vol] 16 mg/dL 7-18 [facility] Work Phone: Thin prep Papanicolaou smear with manual screeningon 09-03-2021 Thin prep Papanicolaou smear with manual screening 8 5-15 [facility] Work Phone: Basophil percentageon 2020 Bilirubin [Mass/Vol] 0.70 mg/dL 0.20-1.00 [facility] Work Phone: Comment on above: For patients on eltr ombopag therapy, use of Dimension [place] TBIL is not recommended. Protein [Mass/Vol] 6.9 g/dL 6.4-8.2 [facility] Work Phone: Laboratory - Chemistry and C hemistry - challengeon 09-02-2021 ALP [Catalytic activity/Vol] 148 U/L 45-117 [facility] Work Phone: ALT [Catalytic activity/Vol] 26 U/L 16-61 [facility] Work Phone: Globulin (S) [Mass/Vol] 3.9 g/dL 2.2-4.2 [facility] Work Phone: Lipase [Catalytic activity/Vol] 51 U/L 73-393 [facility] Work Phone: Review by pathologiston 08-07 Pathologist review Noah (Unsp spec) [Interp] Reviewed [facility] Work Phone: Comment on above: Previous reported re sult: Nata mcintosh Edited by: [email or web address] on 09/03/21:1010Neutrophilic leukocytosis.Clinical correlation necessary.Dimitrios Ashraf M.D. 09/03/21 AMENDED REPORT 09/03/21 1010 PATH REV previously reported as: Nata mcintosh Serum or plasma albumin carley urement (mass/volume)on 09-02-2021 Albumin [Mass/Vol] 3.0 g/dL 3.2-5.0 [facility] Work Phone: Serum or plasma albumin/glob ulin mass ratioon 09-02-2021 Albumin/Globulin [Mass ratio] 0.8 {ratio} 0.9-2.4 [facility] Work Phone: Thin prep Papanicolaou smear with manual screeningon 09-02-2021 Thin prep Papanicolaou smear with manual screening 20 U/L 15-37 [facility] Work Phone: Whole blood hemoglobin A1c/t otal hemoglobin ratio (mass fraction)on 09-02-2021 HbA1c (Bld) [Mass fraction] 6.1 % 3.8-5.6 [facility] Work Phone: Comment on above: [...] and there was good flow as well. case specialist was administered and cross-clamp was removed. A [...] with closure. The sternum was reapproximated with [id number] wires. The overlying tissues were closed in multiple layers. The patient was transferred to the heart and lung unit in serious, but stable condition. Diskriter Job ID: [id number] Colton Marroquin MD DOD:12/25/2019 02:20 P EE/dsk DOT:12/25/2019 04:10 P Job Number: [id number] Document Number: [id number] cc: Colton Marroquin MD [facility] [address] [address] Normal [facility] Basic Metabolic Panelon 12-05 Anion gap [Moles/Vol] 6 Normal [facility] Comment on above: Performed By: #### B GLU #### [address] Calcium [Mass/Vol] 8.5 mg/dL Normal 8.4-10.4 [facility] Comment on above: Performed By: #### B GLU #### [address] CO2 [Moles/Vol] 26 mmol/L Normal 22-30 [facility] Comment on above: Performed By: #### B GLU #### [facility] [address] [place], [place] Creatinine [Mass/Vol] 0.90 mg/dL Normal 0.52-1.25 [facility] Comment on above: Performed By: #### B GLU #### [address], [place] GFR/1.73 sq M predicted among blacks MDRD (S/P/Bld) [Vol rate/Area] mL/min/{1.73_m2} Normal >60 [facility] Comment on above: Performed By: #### B GLU #### [address] [address] [place], [place] GFR/1.73 sq M predicted among non-blacks MDRD (S/P/Bld) [Vol rate/Area] mL/min/{1.73_m2} Normal >60 [facility] Comment on above: Result Comment: Sour ce- MDRD equation with creatinine calibration to IDMS(NKDEP) eGFR not recommended for drug dose adjustment Performed By: #### B GLU #### [address] [address] [place], [place] Glucose [Mass/Vol] 122 mg/dL High 70-100 [facility] Comment on above: Performed By: #### B GLU #### [address] [address] [place], [place] Urea nitrogen [Mass/Vol] 20 mg/dL Normal 7-20 [facility] Comment on above: Performed By: #### B GLU #### [address] [address] [place], [place] Chloride [Moles/Vol] 107 mmol/L Normal 98-107 [facility] Comment on above: Performed By: #### B GLU #### [address] [address] [place], [place] Potassium [Moles/Vol] 3.2 mmol/L Low 3.5-5.1 [facility] Comment on above: Performed By: #### B GLU #### [address] [place] [address] Sodium [Moles/Vol] 138 mmol/L Normal 135-145 [facility] Comment on above: Performed By: #### B GLU #### [facility] [address] [place] [address] Anion gap [Moles/Vol] 6 mmol/L [place], [place] Comment on above: Test Performed by [facility], [facility] [place] [address] Calcium [Mass/Vol] 8.5 mg/dL 8.4 - 10. 4 mg/dL [place], [place] Comment on above: Test Performed by [facility], [address] [place] [address] Chloride [Moles/Vol] 107 mmol/L 98 - 107 mmol/L [place], [place] Comment on above: Test Performed by [facility], [address] [place] [address] CO2 [Moles/Vol] 26 mmol/L 22 - 30 mmol/L [place], [place] Comment on above: Test Performed by [facility], [facility] [place] [address] Creatinine [Mass/Vol] 0.9 mg/dL 0.52 - 1.25 mg/dL [place], [place] Comment on above: Test Performed by [facility], [address] [place] [address] EGFR IF NonAfrican Trin[place]adian >60.0 >60 mL/min [place], [place] Comment on above: Test Performed by [facility], [facility] [place] [address] Source- MDRD equation with creatinine calibration to IDMO(NKDEP) eGFR not recommended for drug dose adjustment GFR/1.73 sq M predicted among blacks MDRD (S/P/Bld) [Vol rate/Area] mL/min/{1.73_m2} >60 mL/min [place], [place] Comment on above: Test Performed by [facility], [facility] [place] [address] Glucose [Mass/Vol] 122 mg/dL High 70 - 100 mg/dL [place], [place] Comment on above: Test Performed by [facility], [facility] [place] [address] Interpretation and review of laboratory results Abnormal [place] Potassium [Moles/Vol] 3.2 mmol/L Low 3.5 - 5.1 mmol/L [place] Comment on above: Test Performed by [facility], [facility] [place] [address] Sodium [Moles/Vol] 138 mmol/L 135 - 145 mmol/L [place] Urea nitrogen [Mass/Vol] 20 mg/dL 7 - 20 mg/dL [place] Comment on above: Test Performed by [facility], [facility] [place] [address] Test Performed by [facility], [address] [place] [id number] [place] [address] CBCon 12-20-2019 Erythrocyte distribution width (RBC) [Ratio] 15.1 % High 11.5 - 14.5 % [place], [place] Comment on above: Test Performed by [facility], [facility] [place] [address] Hematocrit (Bld) [Volume fraction] 27.2 % Low 40 - 52 % [place] Comment on above: Test Performed by [facility], [facility] [place] [address] Hemoglobin (Bld) [Mass/Vol] 9.1 g/dL Low 13 - 18 g/dL [place], [place] Comment on above: Test Performed by [facility], [facility] [place] [address] Interpretation and review of laboratory results Abnormal [place] MCH (RBC) [Entitic mass] 31.6 pg 26 - 34 pg [place], [place] Comment on above: Test Performed by [facility], [facility] [place] [address] MCHC (RBC) [Mass/Vol] 33.5 % 32 - 36 % [place], [place] Comment on above: Test Performed by [facility], [facility] [place] [address] MCV (RBC) [Entitic vol] 94.4 fL 80 - 98 fL [place], [place] Comment on above: Test Performed by [facility], [address] [place] [address] Platelet mean volume (Bld) [Entitic vol] 7.6 fL 7.4 - 10.4 fL [place] Comment on above: Test Performed by [facility], [facility] [place] [address] Platelets (Bld) [#/Vol] 244 10*3/uL 140 - 440 10*3/uL [place] Comment on above: Test Performed by [facility], [facility] [place] [address] RBC (Bld) [#/Vol] 2.89 10*6/uL Low 4.4 - 5.9 10*6/uL [place] Comment on above: Test Performed by [facility], [address] [place] [address] WBC (Bld) [#/Vol] 7.9 10*3/uL 3.6 - 10.7 10*3/uL [place] Test Performed by [facility], [address] [place] [address] [place], [place] CR Chest Portableon 12-20-19 20 CR Chest Portable Patient Name: DOUGLAS SIMON Jr Diagnostic Radiology Exam Date/Time 12/20/2019 06:48:05 EDT Exam CR Chest Portable Ordering Physician COLTON MARROQUIN Accession Number [id number] CPT4 Codes 40840 () Reason For Exam SOB Report HISTORY: Postop CABG Portable AP chest at 0528 hours is unchanged since last exam 24 hours ago Report Dictated on Workstation: [id number] Final Dictated: 12/20/2019 5:43 am Dictating Physician: MD ENNIS WILLIAM Signed Date and Time: 12/20/2019 5:44 am Signed by: MD ENNIS WILLIAM Transcribed Date and Time: 12/20/2019 5:43 Normal [facility] Glucose,Bedsideon 12-20-2019 Glucose [Mass/Vol] 136 mg/dL High 70-100 [facility] Comment on above: Result Comment: Test performed by glucose meter. Results may be 10%-15% lower than serum/plasma values. (CLIA ID [id number]) Performed By: #### B GLU ####[facility] [place], [place] Glucose [Mass/Vol] 106 mg/dL High 70-100 [facility] Comment on above: Result Comment: Test performed by glucose meter. Results may be 10%-15% lower than serum/plasma values. (CLIA ID [id number]) Performed By: #### B GLU ####[address] [place], [place] Hemogramon 12-20-2019 Erythrocyte distribution width (RBC) [Ratio] 15.1 % High 11.5-14.5 [facility] Comment on above: Performed By: #### B GLU #### [address] [address], [place] Hematocrit (Bld) [Volume fraction] 27.2 % Low 40.0-52.0 [facility] Comment on above: Performed By: #### B GLU #### [address] [address], [place] Hemoglobin (Bld) [Mass/Vol] 9.1 g/dL Low 13.0-18.0 [facility] Comment on above: Performed By: #### B GLU #### [address] [address] [place], [place] MCH (RBC) [Entitic mass] 31.6 pg Normal 26.0-34.0 [facility] Comment on above: Performed By: #### B GLU #### [address] [address] [place], [place] MCHC (RBC) [Mass/Vol] 33.5 % Normal 32.0-36.0 [facility] Comment on above: Performed By: #### B GLU #### [address] [address] [place], [place] MCV (RBC) [Entitic vol] 94.4 fL Normal 80.0-98.0 [facility] Comment on above: Performed By: #### B GLU #### [address] [address], [place] Platelet mean volume (Bld) [Entitic vol] 7.6 fL Normal 7.4-10.4 [facility] Comment on above: Performed By: #### B GLU #### [facility] [address], [place] Platelets (Bld) [#/Vol] 244 10*3/uL Normal 140-440 [facility] Comment on above: Performed By: #### B GLU #### [facility] [address], [place] RBC (Bld) [#/Vol] 2.89 10*6/uL Low 4.40-5.90 [facility] Comment on above: Performed By: #### B GLU #### [facility] [address], [place] WBC (Bld) [#/Vol] 7.9 10*3/uL Normal 3.6-10.7 [facility] Comment on above: Performed By: #### B GLU #### [facility] [address], [place] POCT Glucoseon 12-20-2019 Glucose [Mass/Vol] 136 mg/dL High 70 - 100 mg/dL [place] Comment on above: Test performed by gl ucose meter. Results may be 10%-15% lower than serum/plasma values. (CLIA ID [id number]) Interpretation and review of laboratory results Abnormal [facility] [place] [place] Test Performed by [facility], [facility] [place], [place] Glucose [Mass/Vol] 106 mg/dL High 70 - 100 mg/dL [place] Comment on above: Test performed by gl ucose meter. Results may be 10%-15% lower than serum/plasma values. (CLIA ID [id number]) Interpretation and review of laboratory results Abnormal [facility] [place] [place] Test Performed by [facility], [address] [place] [address] [place], [place] Potassiumon 12-20-2019 Potassium [Moles/Vol] 3.3 mmol/L Low 3.5-5.1 [facility] Comment on above: Performed By: #### K 3 ####[address] [place], [place] Interpretation and review of laboratory results Abnormal [place] Potassium [Moles/Vol] 3.3 mmol/L Low 3.5 - 5.1 mmol/L [place] Test Performed by [facility], [address] [place] [address] [facility], [place] Potassium [Moles/Vol] 3.3 mmol/L Low 3.5-5.1 [facility] Comment on above: Performed By: #### K 3 ####[address] [place], [place] Interpretation and review of laboratory results Abnormal [place], [place] Potassium [Moles/Vol] 3.3 mmol/L Low 3.5 - 5.1 mmol/L [facility], [place] Test Performed by [id number] [place] [address] XR CHEST PORTABLEon 12-20-19 Patient Name: DOUGLAS SIMON Jr ---Diagnostic Radiology--- Exam Date/Time 12/20/2019 06:48:05 EDT Exam CR Chest Portable Ordering Physician COLTON MARROQUIN Accession Number [id number] CPT4 Codes 31501 () Reason For Exam SOB Report HISTORY: Postop CABG Portable AP chest at 0528 hours is unchanged since last exam 24 hours ago Report Dictated on Workstation: [id number] --- Final --- Dictated: 12/20/2019 5:43 am Dictating Physician: MD ENNIS WILLIAM Signed Date and Time: 12/20/2019 5:44 am Signed by: MD ENNIS WILLIAM Transcribed Date and Time: 12/20/2019 5:43 [place], [place] Robin, [facility] Incoming Radiology Results From [facility] - 12/20/2019 6:48 AM EDT Patient Name: DOUGLAS CALLAWAY Jr ---Diagnostic Radiology--- Exam Date/Time 12/20/2019 06:48:05 EDT Exam CR Chest Portable Ordering Physician COLTON MARROQUIN Accession Number [id number] CPT4 Codes 23192 () Reason For Exam SOB Report HISTORY: Postop CABG Portable AP chest at 0528 hours is unchanged since last exam 24 hours ago Report Dictated on Workstation: [id number] --- Final --- Dictated: 12/20/2019 5:43 am Dictating Physician: MD ENNIS WILLIAM Signed Date and Time: 12/20/2019 5:44 am Signed by: MD ENNIS WILLIAM Transcribed Date and Time: 12/20/2019 5:43 [facility], [place] Basic Metabolic Panelon 12-05 Anion gap [Moles/Vol] 9 Normal [facility] Comment on above: Performed By: #### B GLU #### [address] [place] [address] Calcium [Mass/Vol] 8.6 mg/dL Normal 8.4-10.4 [facility] Comment on above: Performed By: #### B GLU #### [facility] [address] [place] [address] CO2 [Moles/Vol] 25 mmol/L Normal 22-30 [facility] Comment on above: Performed By: #### B GLU #### [facility] [address] [place] [address] Glucose [Mass/Vol] 168 mg/dL High 70-100 [facility] Comment on above: Performed By: #### B GLU #### [facility] [address] [place] [address] Urea nitrogen [Mass/Vol] 23 mg/dL High 7-20 [facility] Comment on above: Performed By: #### B GLU #### [facility] [address] [place] [address] Creatinine [Mass/Vol] 0.98 mg/dL Normal 0.52-1.25 [facility] Comment on above: Performed By: #### B GLU #### [facility] [address] [place] [address] GFR/1.73 sq M predicted among blacks MDRD (S/P/Bld) [Vol rate/Area] mL/min/{1.73_m2} Normal >60 [facility] Comment on above: Performed By: #### B GLU #### [facility] [address], [place] GFR/1.73 sq M predicted among non-blacks MDRD (S/P/Bld) [Vol rate/Area] mL/min/{1.73_m2} Normal >60 [facility] Comment on above: Result Comment: Sour ce- MDRD equation with creatinine calibration to IDMS(NKDEP) eGFR not recommended for drug dose adjustment Performed By: #### B GLU #### [address], [place] Chloride [Moles/Vol] 103 mmol/L Normal 98-107 [facility] Comment on above: Performed By: #### B GLU #### [address] [place], [place] Potassium [Moles/Vol] 3.1 mmol/L Low 3.5-5.1 [facility] Comment on above: Performed By: #### B GLU #### [address] [place], [place] Sodium [Moles/Vol] 137 mmol/L Normal 135-145 [facility] Comment on above: Performed By: #### B GLU #### [address], [place] Anion gap [Moles/Vol] 9 mmol/L [place], [place] Comment on above: Test Performed by [facility], [address] [place] [address] Calcium [Mass/Vol] 8.6 mg/dL 8.4 - 10. 4 mg/dL [place], [place] Comment on above: Test Performed by [facility], [address] [place] [address] Chloride [Moles/Vol] 103 mmol/L 98 - 107 mmol/L [place] Comment on above: Test Performed by [facility], [address] [place] [address] CO2 [Moles/Vol] 25 mmol/L 22 - 30 mmol/L [place] Comment on above: Test Performed by [facility], [facility] [place] [address] Creatinine [Mass/Vol] 0.98 mg/dL 0.52 - 1.25 mg/dL [place], [place] Comment on above: Test Performed by [facility], [facility] [place] [address] EGFR IF NonAfrican Trinidadian >60.0 >60 mL/min [place], [place] Comment on above: Test Performed by [facility], [facility] [place] [address] Source- MDRD equation with creatinine calibration to IDMS(NKDEP) eGFR not recommended for drug dose adjustment GFR/1.73 sq M predicted among blacks MDRD (S/P/Bld) [Vol rate/Area] mL/min/{1.73_m2} >60 mL/min [place] Comment on above: Test Performed by [facility], [address] [place] [address] Glucose [Mass/Vol] 168 mg/dL High 70 - 100 mg/dL [place] Comment on above: Test Performed by [facility], [address] [place] [address] Interpretation and review of laboratory results Abnormal [place] Potassium [Moles/Vol] 3.1 mmol/L Low 3.5 - 5.1 mmol/L [place] Comment on above: Test Performed by [facility] [facility], [facility] [place] [address] Sodium [Moles/Vol] 137 mmol/L 135 - 145 mmol/L [place] Urea nitrogen [Mass/Vol] 23 mg/dL High 7 - 20 mg/dL [place] Comment on above: Test Performed by [facility], [facility] [place] [address] Test Performed by [facility], [facility] [place] [address] [place] Anion gap [Moles/Vol] 7 Normal [facility] Comment on above: Performed By: #### T SGL #### [address] [address] [facility] [place] [address] [facility] #### LRC #### [facility] [address] [place] [address] Calcium [Mass/Vol] 8.7 mg/dL Normal 8.4-10.4 [facility] Comment on above: Performed By: #### T SGL #### [facility] [address] [place] [address] [facility] #### LRC #### [facility] [address] [place] [address] CO2 [Moles/Vol] 25 mmol/L Normal 22-30 [facility] Comment on above: Performed By: #### T SGL #### [facility] [address] [place] [address] [facility] #### LRC #### [place] [address] [place] [address] Glucose [Mass/Vol] 144 mg/dL High 70-100 [facility] Comment on above: Performed By: #### T SGL #### [address] [address] [place] [address] [facility] #### LRC #### [place] [address] [place] [address] Urea nitrogen [Mass/Vol] 30 mg/dL High 7-20 [facility] Comment on above: Performed By: #### T SGL #### [address] [address] [place] [address] [facility] #### LRC #### [facility] [address] [place] [address] Creatinine [Mass/Vol] 1.10 mg/dL Normal 0.52-1.25 [facility] Comment on above: Performed By: #### T SGL #### [facility] [address] [place] [address] [facility] #### LRC #### [facility] [address] [place] [address] GFR/1.73 sq M predicted among blacks MDRD (S/P/Bld) [Vol rate/Area] mL/min/{1.73_m2} Normal >60 [facility] Comment on above: Performed By: #### T SGL #### [address] [place] [address] [facility] #### LRC #### [address] [place] [address] GFR/1.73 sq M predicted among non-blacks MDRD (S/P/Bld) [Vol rate/Area] mL/min/{1.73_m2} Normal >60 [facility] Comment on above: Result Comment: Sour ce- MDRD equation with creatinine calibration to IDMS(NKDEP) eGFR not recommended for drug dose adjustment Performed By: #### T SGL #### [address] [place] [address] [facility] #### LRC #### [address] [place] [address] Chloride [Moles/Vol] 105 mmol/L Normal 98-107 [facility] Comment on above: Performed By: #### T SGL #### [address] [place] [address] [facility] #### LRC #### [address] [place] [address] Potassium [Moles/Vol] 3.4 mmol/L Low 3.5-5.1 [facility] Comment on above: Performed By: #### T SGL #### [address] [place] [address] [facility] #### LRC #### [address] [place] [address] Sodium [Moles/Vol] 137 mmol/L Normal 135-145 [facility] Comment on above: Performed By: #### T SGL #### [address] [place] [address] [facility] #### LRC #### [address] [place] [address] Anion gap [Moles/Vol] 7 mmol/L [facility], [place] Comment on above: Test Performed by [facility], [facility] [place] [address] Calcium [Mass/Vol] 8.7 mg/dL 8.4 - 10. 4 mg/dL [place], [place] Comment on above: Test Performed by [facility], [facility] [place] [address] Chloride [Moles/Vol] 105 mmol/L 98 - 107 mmol/L [place] Comment on above: Test Performed by [facility], [facility] [place] [address] CO2 [Moles/Vol] 25 mmol/L 22 - 30 mmol/L [place] Comment on above: Test Performed by [facility], [facility] [place] [address] Creatinine [Mass/Vol] 1.1 mg/dL 0.52 - 1.25 mg/dL [place] Comment on above: Test Performed by [facility], [facility] [place] [address] EGFR IF NonAfrican Trinidadian >60.0 >60 mL/min [place] Comment on above: Test Performed by [facility], [address] [place] [address] Source- MDRD equation with creatinine calibration to IDMS(NKDEP) eGFR not recommended for drug dose adjustment GFR/1.73 sq M predicted among blacks MDRD (S/P/Bld) [Vol rate/Area] mL/min/{1.73_m2} >60 mL/min [place] Comment on above: Test Performed by [facility], [facility] [place] [address] Glucose [Mass/Vol] 144 mg/dL High 70 - 100 mg/dL [place] Comment on above: Test Performed by [facility], [facility] [place] [address] Interpretation and review of laboratory results Abnormal [place] Potassium [Moles/Vol] 3.4 mmol/L Low 3.5 - 5.1 mmol/L [place] Comment on above: Test Performed by [facility], [facility] [place] [address] Sodium [Moles/Vol] 137 mmol/L 135 - 145 mmol/L [place] Urea nitrogen [Mass/Vol] 30 mg/dL High 7 - 20 mg/dL [place] Comment on above: Test Performed by [facility], [facility] [place] [address] Test Performed by [facility], [facility] [place] [address] [place] CBCon 12-19-2019 Erythrocyte distribution width (RBC) [Ratio] 14.4 % 11.5 - 14.5 % [place] Comment on above: Test Performed by [facility], [facility] [place] [address] Hematocrit (Bld) [Volume fraction] 22.3 % Low 40 - 52 % [place] Comment on above: Test Performed by [facility], [facility] [place] [address] Hemoglobin (Bld) [Mass/Vol] 7.4 g/dL Low 13 - 18 g/dL [place] Comment on above: Test Performed by [facility], [facility] [place] [address] Interpretation and review of laboratory results Abnormal [place] MCH (RBC) [Entitic mass] 32.3 pg 26 - 34 pg [place] Comment on above: Test Performed by [facility], [facility] [place] [address] MCHC (RBC) [Mass/Vol] 33.3 % 32 - 36 % [place] Comment on above: Test Performed by [facility], [facility] [place] [address] MCV (RBC) [Entitic vol] 96.9 fL 80 - 98 fL [place] Comment on above: Test Performed by [facility], [facility] [place] [address] Platelet mean volume (Bld) [Entitic vol] 8.2 fL 7.4 - 10.4 fL [place] Comment on above: Test Performed by [facility], [facility] [place] [address] Platelets (Bld) [#/Vol] 215 10*3/uL 140 - 440 10*3/uL [place] Comment on above: Test Performed by [facility], [facility] [place] [address] RBC (Bld) [#/Vol] 2.30 10*6/uL Low 4.4 - 5.9 10*6/uL [place] Comment on above: Test Performed by [facility], [facility] [place] [address] WBC (Bld) [#/Vol] 7.5 10*3/uL 3.6 - 10.7 10*3/uL [place] Test Performed by [facility], [facility] [place] [address] [place], [place] CR Chest Portableon 12-19-19 20 CR Chest Portable Patient Name: DOUGLAS SIMON Jr Diagnostic Radiology Exam Date/Time 12/19/2019 06:16:45 EDT Exam CR Chest Portable Ordering Physician COLTON MARROQUIN Accession Number [id number] CPT4 Codes 38384 () Reason For Exam post op open [...] Transcribed Date and Time: 12/19/2019 6:30 Normal [facility] Glucose,Bedsideon 12-19-2019 Glucose [Mass/Vol] 139 mg/dL High 70-100 [facility] Comment on above: Result Comment: Test performed by glucose meter. Results may be 10%-15% lower than serum/plasma values. (CLIA ID [id number]) Performed By: #### B GLU #### [address] [place] [address] Glucose [Mass/Vol] 186 mg/dL High 70-100 [facility] Comment on above: Result Comment: Test performed by glucose meter. Results may be 10%-15% lower than serum/plasma values. (CLIA ID [id number]) Performed By: #### B GLU #### [facility] [address] [place] [address] Glucose [Mass/Vol] 208 mg/dL High 70-100 [facility] Comment on above: Result Comment: Test performed by glucose meter. Results may be 10%-15% lower than serum/plasma values. (CLIA ID [id number]) Performed By: #### B GLU #### [facility] [address] [place] [address] Glucose [Mass/Vol] 232 mg/dL High 70-100 [facility] Comment on above: Result Comment: Test performed by glucose meter. Results may be 10%-15% lower than serum/plasma values. (CLIA ID [id number]) Performed By: #### B GLU #### [address] [place] [address] Hemoglobin AND Hematocriton 12-19-2019 Hematocrit (Bld) [Volume fraction] 27.1 % Low 40.0-52.0 [facility] Comment on above: Performed By: #### B GLU #### [address] [place] [address] Hemoglobin (Bld) [Mass/Vol] 9.5 g/dL Low 13.0-18.0 [facility] Comment on above: Performed By: #### B GLU #### [address] [place] [address] Hemoglobin and Hematocrit, B loodon 12-19-2019 Hematocrit (Bld) [Volume fraction] 27.1 % Low 40 - 52 % [place] Comment on above: Test Performed by [facility], [facility] [place] [address] Hemoglobin (Bld) [Mass/Vol] 9.5 g/dL Low 13 - 18 g/dL [place] Interpretation and review of laboratory results Abnormal [place] Test Performed by [facility], [facility] [place] [address] [place] Hemogramon 04-14-2020 Erythrocyte distribution width (RBC) [Ratio] 14.4 % Normal 11.5-14.5 [facility] Comment on above: Performed By: #### T SGL #### [address] [place], [place] [address] [place] [address] #### LRC #### [address] [place] [address] Hematocrit (Bld) [Volume fraction] 22.3 % Low 40.0-52.0 [facility] Comment on above: Performed By: #### T SGL #### [address] [place], [place] [address] [place] [address] #### LRC #### [address] [place] [address] Hemoglobin (Bld) [Mass/Vol] 7.4 g/dL Low 13.0-18.0 [facility] Comment on above: Performed By: #### T SGL #### [address] [place], [place] [address] [place] [address] #### LRC #### [address] [place] [address] MCH (RBC) [Entitic mass] 32.3 pg Normal 26.0-34.0 [facility] Comment on above: Performed By: #### T SGL #### [address] [place], [place] [address] [place] [address] #### LRC #### [place] [place] [address] MCHC (RBC) [Mass/Vol] 33.3 % Normal 32.0-36.0 [facility] Comment on above: Performed By: #### T SGL #### [address] [place], [place] [address] [place] [address] #### LRC #### [address] [place] [address] MCV (RBC) [Entitic vol] 96.9 fL Normal 80.0-98.0 [facility] Comment on above: Performed By: #### T SGL #### [address] [place], [place] [address] [place] [address] #### LRC #### [place] [address] [place] [address] Platelet mean volume (Bld) [Entitic vol] 8.2 fL Normal 7.4-10.4 [facility] Comment on above: Performed By: #### T SGL #### [address] [place] [address] [facility] #### LRC #### [place] [place] [address] Platelets (Bld) [#/Vol] 215 10*3/uL Normal 140-440 [facility] Comment on above: Performed By: #### T SGL #### [address] [place] [address] [facility] #### LRC #### [address] [place] [address] RBC (Bld) [#/Vol] 2.30 10*6/uL Low 4.40-5.90 [facility] Comment on above: Performed By: #### T SGL #### [address] [place] [address] [facility] #### LRC #### [place] [place] [place] [address] WBC (Bld) [#/Vol] 7.5 10*3/uL Normal 3.6-10.7 [facility] Comment on above: Performed By: #### T SGL #### [address] [place], [place] [address] [place] [address] #### LRC #### [place] [address] [place] [address] Leukodepleted Red Cellson Leukodepleted Red Cells Leukodepleted Red Cells: [id number] transfused 12/19/19 08:13 JMV Unit Blood Type: O Unit Blood Rh: POS Blood Product Code: AS3 Unit Number: [id number] Unit Status: transfused Barcoded Unit Number: =[id number] Barcoded Product Code: = Barcoded ABO/Rh: =%5100 Unit Expiration: Unit Volume Transfused: 300 Unit Transfusion Start Date/Time: [id number] Normal [facility] Comment on above: Performed By: #### B GLU #### [facility] [address] [place] [address] POCT Glucoseon 12-19-2019 Glucose [Mass/Vol] 139 mg/dL High 70 - 100 mg/dL [facility] Comment on above: Test performed by gl ucose meter. Results may be 10%-15% lower than serum/plasma values. (CLIA ID [id number]) Interpretation and review of laboratory results Abnormal [facility] Test Performed by [facility], [facility] [place] [address] [facility] [place] Glucose [Mass/Vol] 186 mg/dL High 70 - 100 mg/dL [facility] [place] Comment on above: Test performed by gl ucose meter. Results may be 10%-15% lower than serum/plasma values. (CLIA ID [id number]) Interpretation and review of laboratory results Abnormal [facility] Test Performed by [facility], [facility] [place] [address] [facility] [place] Glucose [Mass/Vol] 208 mg/dL High 70 - 100 mg/dL [facility] [place] Comment on above: Test performed by gl ucose meter. Results may be 10%-15% lower than serum/plasma values. (CLIA ID [id number]) Interpretation and review of laboratory results Abnormal [facility]- [place] Test Performed by [facility], [facility] [place] [address] [facility] [place] Glucose [Mass/Vol] 232 mg/dL High 70 - 100 mg/dL [facility] Comment on above: Test performed by gl ucose meter. Results may be 10%-15% lower than serum/plasma values. (CLIA ID [id number]) Interpretation and review of laboratory results Abnormal [facility] Test Performed by [facility], [address] [place] [address] [facility] [place] Potassiumon 12-19-2019 Potassium [Moles/Vol] 3.5 mmol/L Normal 3.5-5.1 [facility] Comment on above: Performed By: #### T SGL #### [address] [address] [facility] #### LRC #### [place] [address] [place] [address] Potassium [Moles/Vol] 3.5 mmol/L 3.5 - 5.1 mmol/L [place] Test Performed by [facility], [address] [place] [address] [place] TS GELon 12-19-2019 TS GEL ABO Group: O Rh, Gel: POS Antibody Screen Gel: NEG Normal [facility] Comment on above: Performed By: #### B GLU #### [address] [address] TYPE AND SCREENon 12-19-2019 Sodium [Moles/Vol] Negative [place] Comment on above: Test Performed by [facility], [address] [place] [address] Sodium [Moles/Vol] Positive [place] Comment on above: Test Performed by [facility], [address] [place] [address] Sodium [Moles/Vol] O [place] Test Performed by [facility], [address] [place] [address] [place] XR CHEST PORTABLEon 12-19-[address] [place] [address] Incoming Radiology Results From [facility] - 12/19/2019 6:32 AM EDT Patient Name: DOUGLAS CALLAWAY Jr ---Diagnostic Radiology--- Exam Date/Time 12/19/2019 06:16:45 EDT Exam CR Chest Portable Ordering Physician COLTON MARROQUIN Accession Number [id number] CPT4 Codes 72731 () Reason For Exam post op open heart, sob Report HISTORY: Postop heart surgery Portable AP chest at 0529 hours compared to prior study 24 hours ago. FINDINGS: Improving aeration left lung base since last exam. No other significant change Report Dictated on Workstation: [id number] --- Final --- Dictated: 12/19/2019 6:30 am Dictating Physician: MD ENNIS WILLIAM Signed Date and Time: 12/19/2019 6:31 am Signed by: MD ENNIS WILLIAM Transcribed Date and Time: 12/19/2019 6:30 [place] Patient Name: DOUGLAS SIMON Jr ---Diagnostic Radiology--- Exam Date/Time 12/19/2019 06:16:45 EDT Exam CR Chest Portable Ordering Physician COLTON MARROQUIN Accession Number [id number] CPT4 Codes 92107 () Reason For Exam post op open heart, sob Report HISTORY: Postop heart surgery Portable AP chest at 0529 hours compared to prior study 24 hours ago. FINDINGS: Improving aeration left lung base since last exam. No other significant change Report Dictated on Workstation: [id number] --- Final --- Dictated: 12/19/2019 6:30 am Dictating Physician: MD ENNIS WILLIAM Signed Date and Time: 12/19/2019 6:31 am Signed by: MD ENNIS WILLIAM Transcribed Date and Time: 12/19/2019 6:30 [place] Basic Metabolic Panelon 12-05 Calcium [Mass/Vol] 9.0 mg/dL Normal 8.4-10.4 [facility] Comment on above: Performed By: #### T SGL #### [address] [place], [place] [address] [place] [address] #### LRC #### [place] [place] [address] Glucose [Mass/Vol] 191 mg/dL High 70-100 [facility] Comment on above: Performed By: #### T SGL #### [place] [address] [place], [place] [id number] [place] [address] #### LRC #### [address] [address] [address] [place] [address] Anion gap [Moles/Vol] 10 Normal [facility] Comment on above: Performed By: #### T SGL #### [place] [address] [id number] [facility] #### LRC #### [facility] [address] [place] [address] CO2 [Moles/Vol] 23 mmol/L Normal 22-30 [facility] Comment on above: Performed By: #### T SGL #### [facility] [address] [place] [address] [facility] #### LRC #### [address] [place] [address] Creatinine [Mass/Vol] 1.17 mg/dL Normal 0.52-1.25 [facility] Comment on above: Performed By: #### T SGL #### [address] [address] [place] [address] [facility] #### LRC #### [address] [address] [place] [address] GFR/1.73 sq M predicted among blacks MDRD (S/P/Bld) [Vol rate/Area] mL/min/{1.73_m2} Normal >60 [facility] Comment on above: Performed By: #### T SGL #### [address] [address] [place] [address] [facility] #### LRC #### [address] [place] [address] GFR/1.73 sq M predicted among non-blacks MDRD (S/P/Bld) [Vol rate/Area] mL/min/{1.73_m2} Normal >60 [facility] Comment on above: Result Comment: Sour ce- MDRD equation with creatinine calibration to IDMS(NKDEP) eGFR not recommended for drug dose adjustment Performed By: #### T SGL #### [address] [address] [place] [address] [facility] #### LRC #### [address] [place] [address] Urea nitrogen [Mass/Vol] 37 mg/dL High 7-20 [facility] Comment on above: Performed By: #### T SGL #### [address] [place] [address] [facility] #### LRC #### [facility] [address] [place] [address] Chloride [Moles/Vol] 103 mmol/L Normal 98-107 [facility] Comment on above: Performed By: #### T SGL #### [facility] [address] [place] [address] [facility] #### LRC #### [facility] [address] [facility] [place] [address] Potassium [Moles/Vol] 4.1 mmol/L Normal 3.5-5.1 [facility] Comment on above: Performed By: #### T SGL #### [facility] [address] [facility] [place] [address] [facility] #### LRC #### [facility] [address] [place] [address] Sodium [Moles/Vol] 136 mmol/L Normal 135-145 [facility] Comment on above: Performed By: #### T SGL #### [facility] [address] [facility] [place] [address] [facility] #### LRC #### [address] [place] [address] Anion gap [Moles/Vol] 10 mmol/L [place] Comment on above: Test Performed by [facility], [facility] [place] [address] Calcium [Mass/Vol] 9.0 mg/dL 8.4 - 10. 4 mg/dL [place] Comment on above: Test Performed by [facility], [facility] [place] [address] Chloride [Moles/Vol] 103 mmol/L 98 - 107 mmol/L [place] Comment on above: Test Performed by [facility], [address] [place] [address] CO2 [Moles/Vol] 23 mmol/L 22 - 30 mmol/L [place] Comment on above: Test Performed by [facility], [address] [place] [address] Creatinine [Mass/Vol] 1.17 mg/dL 0.52 - 1.25 mg/dL [place] Comment on above: Test Performed by [facility], [address] [place] [address] EGFR IF NonAfrican Trinidadian >60.0 >60 mL/min [place] Comment on above: Test Performed by [facility], [address] [place] [address] Source- MDRD equation with creatinine calibration to IDMS(NKDEP) eGFR not recommended for drug dose adjustment GFR/1.73 sq M predicted among blacks MDRD (S/P/Bld) [Vol rate/Area] mL/min/{1.73_m2} >60 mL/min [place] Comment on above: Test Performed by [facility], [address] [place] [address] Glucose [Mass/Vol] 191 mg/dL High 70 - 100 mg/dL [place] Comment on above: Test Performed by [facility], [address] [place] [address] Interpretation and review of laboratory results Abnormal [place] Potassium [Moles/Vol] 4.1 mmol/L 3.5 - 5.1 mmol/L [place] Comment on above: Test Performed by [facility], [address] [place] [address] Sodium [Moles/Vol] 136 mmol/L 135 - 145 mmol/L [place] Urea nitrogen [Mass/Vol] 37 mg/dL High 7 - 20 mg/dL [place] Comment on above: Test Performed by [facility], [address] [place] [address] Test Performed by [facility], [address] [place] [address] [place] CBCon 12-18-2019 Erythrocyte distribution width (RBC) [Ratio] 14.5 % 11.5 - 14.5 % [place] Comment on above: Test Performed by [facility], [address] [place] [address] Hematocrit (Bld) [Volume fraction] 23.8 % Low 40 - 52 % [place] Comment on above: Test Performed by [facility], [address] [place] [address] Hemoglobin (Bld) [Mass/Vol] 7.9 g/dL Low 13 - 18 g/dL [place] Comment on above: Test Performed by [facility], [facility] [place] [address] Interpretation and review of laboratory results Abnormal [place] MCH (RBC) [Entitic mass] 32.3 pg 26 - 34 pg [place] Comment on above: Test Performed by [facility], [facility] [place] [address] MCHC (RBC) [Mass/Vol] 33.3 % 32 - 36 % [place] Comment on above: Test Performed by [facility], [address] [place] [address] MCV (RBC) [Entitic vol] 96.9 fL 80 - 98 fL [place] Comment on above: Test Performed by [facility], [address] [place] [address] Platelet mean volume (Bld) [Entitic vol] 8.4 fL 7.4 - 10.4 fL [place] Comment on above: Test Performed by [facility], [address] [place] [address] Platelets (Bld) [#/Vol] 213 10*3/uL 140 - 440 10*3/uL [place] Comment on above: Test Performed by [facility], [address] [place] [address] RBC (Bld) [#/Vol] 2.46 10*6/uL Low 4.4 - 5.9 10*6/uL [place] Comment on above: Test Performed by [facility], [address] [place] [address] WBC (Bld) [#/Vol] 9.5 10*3/uL 3.6 - 10.7 10*3/uL [place] Test Performed by [facility], [facility] [place] [address] [place], [place] CR Chest Portableon 12-18-19 20 CR Chest Portable Patient Name: DOUGLAS SIMON Jr Diagnostic Radiology Exam Date/Time 12/18/2019 06:19:10 EDT Exam CR Chest Portable Ordering Physician MARROQUINCOLTON SINGH Accession Number [id number] CPT4 Codes 97215 () Reason For Exam POST OP OPEN [...] Transcribed Date and Time: 12/18/2019 8:00 Normal [facility] Glucose,Bedsideon 12-18-2019 Glucose [Mass/Vol] 135 mg/dL High 70-100 [facility] Comment on above: Result Comment: Test performed by glucose meter. Results may be 10%-15% lower than serum/plasma values. (CLIA ID [id number]) Performed By: #### T SGL #### [place] [address] #### LRC #### [place] [address] Glucose [Mass/Vol] 183 mg/dL High [address] [facility] Comment on above: Result Comment: Test performed by glucose meter. Results may be 10%-15% lower than serum/plasma values. (CLIA ID [id number]) Performed By: #### T SGL #### [place] [address] #### LRC #### [address] [address] Hemogramon 12-18-2019 Erythrocyte distribution width (RBC) [Ratio] 14.5 % Normal 11.5-14.5 [facility] Comment on above: Performed By: #### T SGL #### [address] [place] [address] [facility] #### LRC #### [address] [place] [address] Hematocrit (Bld) [Volume fraction] 23.8 % Low 40.0-52.0 [facility] Comment on above: Performed By: #### T SGL #### [address] [place] [address] [facility] #### LRC #### [address] [place] [address] Hemoglobin (Bld) [Mass/Vol] 7.9 g/dL Low 13.0-18.0 [facility] Comment on above: Performed By: #### T SGL #### [address] [place] [address] [facility] #### LRC #### [address] [place] [address] MCH (RBC) [Entitic mass] 32.3 pg Normal 26.0-34.0 [facility] Comment on above: Performed By: #### T SGL #### [address] [place] [address] [facility] #### LRC #### [address] [place] [address] MCHC (RBC) [Mass/Vol] 33.3 % Normal 32.0-36.0 [facility] Comment on above: Performed By: #### T SGL #### [address] [place] [address] [facility] #### LRC #### [address] [place] [address] MCV (RBC) [Entitic vol] 96.9 fL Normal 80.0-98.0 [facility] Comment on above: Performed By: #### T SGL #### [address] [place] [address] [facility] #### LRC #### [address] [place] [address] Platelet mean volume (Bld) [Entitic vol] 8.4 fL Normal 7.4-10.4 [facility] Comment on above: Performed By: #### T SGL #### [facility] [address] [place] [address] [facility] #### LRC #### [facility] [address] [place] [address] Platelets (Bld) [#/Vol] 213 10*3/uL Normal 140-440 [facility] Comment on above: Performed By: #### T SGL #### [address] [place] [address] [facility] #### LRC #### [address] [place] [address] RBC (Bld) [#/Vol] 2.46 10*6/uL Low 4.40-5.90 [facility] Comment on above: Performed By: #### T SGL #### [address] [place] [address] [facility] #### LRC #### [address] [place] [address] WBC (Bld) [#/Vol] 9.5 10*3/uL Normal 3.6-10.7 [facility] Comment on above: Performed By: #### T SGL #### [address] [place] [address] [facility] #### LRC #### [address] [place] [address] Leukodepleted Red Cellson Leukodepleted Red Cells Leukodepleted Red Cells: [id number] released 12/18/19 07:33 JMV Unit Blood Type: O Unit Blood Rh: POS Blood Product Code: AS3 Unit Number: [id number] Unit Status: released Barcoded Unit Number: =[id number] Barcoded Product Code: = Barcoded ABO/Rh: =%5100 Unit Expiration: [id number] Leukodepleted Red Cells: [id number] released 04/13/20 07:33 JMV Unit Blood Type: O Unit Blood Rh: POS Blood Product Code: AS3 Unit Number: [id number] Unit Status: released Barcoded Unit Number: =[id number] Barcoded Product Code: = Barcoded ABO/Rh: =%5100 Unit Expiration: Normal [facility] Comment on above: Performed By: #### T SGL #### [address] [address] [place] [address] [facility] #### LRC #### [facility] [address] [place] [address] POCT Glucoseon 12-18-2019 Glucose [Mass/Vol] 135 mg/dL High 70 - 100 mg/dL [facility] Comment on above: Test performed by gl ucose meter. Results may be 10%-15% lower than serum/plasma values. (CLIA ID [id number]) Interpretation and review of laboratory results Abnormal [employer] Test Performed by [facility], [facility] [place] [address] Glucose [Mass/Vol] 183 mg/dL High 70 - 100 mg/dL [facility] Comment on above: Test performed by gl ucose meter. Results may be 10%-15% lower than serum/plasma values. (CLIA ID [id number]) Interpretation and review of laboratory results Abnormal [employer] [place] Test Performed by [facility], [facility] [place] [address] [facility] [address] XR CHEST PORTABLEon 12-18-19 Patient Name: DOUGLAS SIMON Jr ---Diagnostic Radiology--- Exam Date/Time 12/18/2019 06:19:10 EDT Exam CR Chest Portable Ordering Physician COLTON MARROQUIN Accession Number [id number] CPT4 Codes 73613 () Reason For Exam POST OP OPEN [...] RISA Transcribed Date and Time: 12/18/2019 8:00 [place] Robin, [facility] Incoming Radiology Results From [facility] - 12/18/2019 8:02 AM EDT Patient Name: DOUGLAS CALLAWAY Jr ---Diagnostic Radiology--- Exam Date/Time 12/18/2019 06:19:10 EDT Exam CR Chest Portable Ordering Physician COLTON MARROQUIN Accession Number [id number] CPT4 Codes 31303 () Reason For Exam POST OP OPEN [...] RISA Transcribed Date and Time: 12/18/2019 8:00 [facility], [place] Basic Metabolic Panelon 12-05 Calcium [Mass/Vol] 9.3 mg/dL Normal 8.4-10.4 [facility] Comment on above: Performed By: #### H EMOG, HA1C2, PT, BMP3, LFT3 #### [facility] [employer] [address] [address] Glucose [Mass/Vol] 82 mg/dL Normal 70-100 [facility] Comment on above: Performed By: #### H EMOG, HA1C2, PT, BMP3, LFT3 #### [address] [place] Urea nitrogen [Mass/Vol] 25 mg/dL High 7-20 [facility] Comment on above: Performed By: #### H EMOG, HA1C2, PT, BMP3, LFT3 #### [facility] [address] [place] Anion gap [Moles/Vol] 7 Normal [facility] Comment on above: Performed By: #### H EMOG, HA1C2, PT, BMP3, LFT3 #### [address] [place] CO2 [Moles/Vol] 25 mmol/L Normal 22-30 [facility] Comment on above: Performed By: #### H EMOG, HA1C2, PT, BMP3, LFT3 #### [address] [place] Creatinine [Mass/Vol] 1.17 mg/dL Normal 0.52-1.25 [facility] Comment on above: Performed By: #### H EMOG, HA1C2, PT, BMP3, LFT3 #### [address] [place] GFR/1.73 sq M predicted among blacks MDRD (S/P/Bld) [Vol rate/Area] mL/min/{1.73_m2} Normal >60 [facility] Comment on above: Performed By: #### H EMOG, HA1C2, PT, BMP3, LFT3 #### [address] [place] GFR/1.73 sq M predicted among non-blacks MDRD (S/P/Bld) [Vol rate/Area] mL/min/{1.73_m2} Normal >60 [facility] Comment on above: Result Comment: Sour ce- MDRD equation with creatinine calibration to IDMS(NKDEP) eGFR not recommended for drug dose adjustment Performed By: #### H EMOG, HA1C2, PT, BMP3, LFT3 #### [address] [place] [address] Chloride [Moles/Vol] 103 mmol/L Normal 98-107 [facility] Comment on above: Performed By: #### H EMOG, HA1C2, PT, BMP3, LFT3 #### [facility] [address] [place] [address] Potassium [Moles/Vol] 4.6 mmol/L Normal 3.5-5.1 [facility] Comment on above: Performed By: #### H EMOG, HA1C2, PT, BMP3, LFT3 #### [facility] [address] [place] [address] Sodium [Moles/Vol] 136 mmol/L Normal 135-145 [facility] Comment on above: Performed By: #### H EMOG, HA1C2, PT, BMP3, LFT3 #### [facility] [address] [place] [address] Anion gap [Moles/Vol] 7 mmol/L [place] Comment on above: Test Performed by [facility], [address] [place] [address] Calcium [Mass/Vol] 9.3 mg/dL 8.4 - 10. 4 mg/dL [place] Comment on above: Test Performed by [facility], [address] [place] [address] Chloride [Moles/Vol] 103 mmol/L 98 - 107 mmol/L [place] Comment on above: Test Performed by [facility], [address] [place] [address] CO2 [Moles/Vol] 25 mmol/L 22 - 30 mmol/L [place] Comment on above: Test Performed by [facility], [address] [place] [address] Creatinine [Mass/Vol] 1.17 mg/dL 0.52 - 1.25 mg/dL [place] Comment on above: Test Performed by [facility], [address] [place] [address] EGFR IF NonAfrican Trinidadian >60.0 >60 mL/min [place] Comment on above: Test Performed by [facility], [address] [place] [address] [place] [address] Source- MDRD equation with creatinine calibration to IDMS(NKDEP) eGFR not recommended for drug dose adjustment GFR/1.73 sq M predicted among blacks MDRD (S/P/Bld) [Vol rate/Area] mL/min/{1.73_m2} >60 mL/min [place] Comment on above: Test Performed by [facility], [facility] [place] [address] Glucose [Mass/Vol] 82 mg/dL 70 - 100 mg/dL [place] Comment on above: Test Performed by [facility], [facility] [place] [address] Interpretation and review of laboratory results Abnormal [place] Potassium [Moles/Vol] 4.6 mmol/L 3.5 - 5.1 mmol/L [place] Comment on above: Test Performed by [facility], [facility] [place] [address] Sodium [Moles/Vol] 136 mmol/L 135 - 145 mmol/L [place] Urea nitrogen [Mass/Vol] 25 mg/dL High 7 - 20 mg/dL [place] Comment on above: Test Performed by [facility], [facility] [place] [address] CBCon 12-17-2019 Erythrocyte distribution width (RBC) [Ratio] 14.4 % 11.5 - 14.5 % [place] Comment on above: Test Performed by [facility], [facility] [place] [address] Hematocrit (Bld) [Volume fraction] 24.4 % Low 40 - 52 % [place] Comment on above: Test Performed by [facility], [facility] [place] [address] Hemoglobin (Bld) [Mass/Vol] 8.0 g/dL Low 13 - 18 g/dL [place] Comment on above: Test Performed by [facility], [facility] [place] [address] Interpretation and review of laboratory results Abnormal [place] MCH (RBC) [Entitic mass] 32.0 pg 26 - 34 pg [place] Comment on above: Test Performed by [facility], [address] [place] [address] MCHC (RBC) [Mass/Vol] 33.0 % 32 - 36 % [place] Comment on above: Test Performed by [facility], [address] [place] [address] MCV (RBC) [Entitic vol] 97.0 fL 80 - 98 fL [place] Comment on above: Test Performed by [facility], [address] [place] [address] Platelet mean volume (Bld) [Entitic vol] 8.3 fL 7.4 - 10.4 fL [place] Comment on above: Test Performed by [facility], [address] [place] [address] Platelets (Bld) [#/Vol] 165 10*3/uL 140 - 440 10*3/uL [place] Comment on above: Test Performed by [facility], [address] [place] [address] RBC (Bld) [#/Vol] 2.51 10*6/uL Low 4.4 - 5.9 10*6/uL [place] Comment on above: Test Performed by [facility], [address] [place] [address] WBC (Bld) [#/Vol] 11.3 10*3/uL High 3.6 - 10.7 10*3/uL [place] Test Performed by [facility], [address] [place] [address] [place] CR Chest Portableon 12-17-19 20 CR Chest Portable Patient Name: DOUGLAS SIMON Jr Diagnostic Radiology Exam Date/Time 12/17/2019 06:52:59 EDT Exam CR Chest Portable Ordering Physician COLTON MARROQUIN Accession Number [id number] CPT4 Codes 39748 () Reason For Exam SOB Report HISTORY: Status post CABG Portable AP chest 0536 hours is compared to previous study 24 hours ago. FINDINGS: Continued mild atelectatic changes both lung bases. Removal of [place]-Iza catheter since last exam with remaining right internal jugular introducer sheath Pleural tubes, mild colonic dilatation with high position of hepatic flexure Report Dictated on Workstation: [id number] Final Dictated: 12/17/2019 5:55 am Dictating Physician: MD ENNIS WILLIAM Signed Date and Time: 12/17/2019 5:58 am Signed by: MD ENNIS WILLIAM Transcribed Date and Time: 12/17/2019 5:55 Normal [facility] EKG 12 leadon 12-17-2019 [facility] Test Date: 2019-12-17 Pat Name: Douglas Callaway Department: [facility] Room: [facility] Gender: M [employer]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[id number] Requested By: COLTON MARROQUIN Order Number: [id number] Reading MD: Morgan Sanchez Measurements Intervals [place] Rate: 86 P: 42 WA: 137 QRS: 42 QRSD: 79 T: 25 QT: 343 QTc: 411 Interpretive Statements Sinus rhythm Electronically Signed On 12-17-2019 11:59:03 EDT by Morgan [employer] [facility] Robin, [facility] Incoming Cardiology Results From [employer] - 12/17/2019 12:00 PM EDT [facility] Test Date: 2019-12-17 Pat Name: Douglas Callaway Department: [facility] Room: [facility] 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 Results may be 10%-15% lower than serum/plasma values. (CLIA ID [id number]) Performed By: #### T SGL #### [place] [address] [place] [address] [facility] #### LRC #### [facility] [address] [place] [address] Glucose [Mass/Vol] 207 mg/dL High 70-100 [facility] Comment on above: Result Comment: Test performed by glucose meter. Results may be 10%-15% lower than serum/plasma values. (CLIA ID [id number]) Performed By: #### T SGL #### [facility] [address] [place] [address] [facility] #### LRC #### [facility] [address] [place] [address] Glucose [Mass/Vol] 166 mg/dL High 70-100 [facility] Comment on above: Result Comment: Test performed by glucose meter. Results may be 10%-15% lower than serum/plasma values. (CLIA ID [id number]) Performed By: #### T SGL #### [address] [place] [address] [facility] #### LRC #### [facility] [address] [place] [address] Glucose [Mass/Vol] 133 mg/dL High 70-100 [facility] [place] Comment on above: Result Comment: Test performed by glucose meter. Results may be 10%-15% lower than serum/plasma values. (CLIA ID [id number]) Performed By: #### T SGL #### [facility] [address] [place] [address] [facility] #### LRC #### [place] [place] [address] Test performed by gl ucose meter. Results may be 10%-15% lower than serum/plasma values. (CLIA ID [id number]) Glucose [Mass/Vol] 106 mg/dL High 70-100 [facility], [place] Comment on above: Result Comment: Test performed by glucose meter. Results may be 10%-15% lower than serum/plasma values. (CLIA ID [id number]) Performed By: #### T SGL #### [facility] [address] [place] [address] [facility] #### LRC #### [facility] [address] [place] [address] Test performed by gl ucose meter. Results may be 10%-15% lower than serum/plasma values. (CLIA ID [id number]) Glucose [Mass/Vol] 101 mg/dL High 70-100 [facility] Comment on above: Result Comment: Test performed by glucose meter. Results may be 10%-15% lower than serum/plasma values. (CLIA ID [id number]) Performed By: #### T SGL #### [facility] [address] [place] [address] [facility] #### LRC #### [facility] [address] [place] [address] Glucose [Mass/Vol] 85 mg/dL Normal 70-100 [facility] Comment on above: Result Comment: Test performed by glucose meter. Results may be 10%-15% lower than serum/plasma values. (CLIA ID [id number]) Performed By: #### T SGL #### [facility] [address] [facility] [place] [address] [facility] #### LRC #### [place] [address] [address] [facility] [place] [address] Glucose [Mass/Vol] 95 mg/dL Normal 70-100 [facility] Comment on above: Result Comment: Test performed by glucose meter. Results may be 10%-15% lower than serum/plasma values. (CLIA ID [id number]) Performed By: #### T SGL #### [facility] [address] [place] [address] [facility] #### LRC #### [facility] [address] [place] [address] Glucose [Mass/Vol] 99 mg/dL Normal 70-100 [facility] Comment on above: Result Comment: Test performed by glucose meter. Results may be 10%-15% lower than serum/plasma values. (CLIA ID [id number]) Performed By: #### T SGL #### [facility] [address] [facility] [place] [address] [facility] #### LRC #### [place] [address] [address] [facility] [place] [address] Glucose [Mass/Vol] 74 mg/dL Normal 70-100 [facility] Comment on above: Result Comment: Test performed by glucose meter. Results may be 10%-15% lower than serum/plasma values. (CLIA ID [id number]) Performed By: #### T SGL #### [place] [address] [address] [facility] [place] [address] [facility] #### LRC #### [place] [address] [address] [facility] [place] [address] Glucose [Mass/Vol] 71 mg/dL Normal 70-100 [facility] Comment on above: Result Comment: Test performed by glucose meter. Results may be 10%-15% lower than serum/plasma values. (CLIA ID [id number]) Performed By: #### H EMOG, HA1C2, PT, BMP3, LFT3 #### [place] [address] [place] [address] Glucose [Mass/Vol] 94 mg/dL Normal 70-100 [facility] Comment on above: Result Comment: Test performed by glucose meter. Results may be 10%-15% lower than serum/plasma values. (CLIA ID [id number]) Performed By: #### H EMOG, HA1C2, PT, BMP3, LFT3 #### [place] [address] [place] [address] Glucose [Mass/Vol] 94 mg/dL Normal 70-100 [facility] Comment on above: Result Comment: Test performed by glucose meter. Results may be 10%-15% lower than serum/plasma values. (CLIA ID [id number]) Performed By: #### H EMOG, HA1C2, PT, BMP3, LFT3 #### [facility] [address] [place] [address] Glucose [Mass/Vol] 78 mg/dL Normal 70-100 [facility] Comment on above: Result Comment: Test performed by glucose meter. Results may be 10%-15% lower than serum/plasma values. (CLIA ID [id number]) Performed By: #### H EMOG, HA1C2, PT, BMP3, LFT3 #### [address] Glucose [Mass/Vol] 100 mg/dL Normal 70-100 [facility] Comment on above: Result Comment: Test performed by glucose meter. Results may be 10%-15% lower than serum/plasma values. (CLIA ID [id number]) Performed By: #### H EMOG, HA1C2, PT, BMP3, LFT3 #### [address] Hemogramon 12-17-2019 Erythrocyte distribution width (RBC) [Ratio] 14.4 % Normal 11.5-14.5 [facility] Comment on above: Performed By: #### H EMOG, HA1C2, PT, BMP3, LFT3 #### [address] Hematocrit (Bld) [Volume fraction] 24.4 % Low 40.0-52.0 [facility] Comment on above: Performed By: #### H EMOG, HA1C2, PT, BMP3, LFT3 #### [address] Hemoglobin (Bld) [Mass/Vol] 8.0 g/dL Low 13.0-18.0 [facility] Comment on above: Performed By: #### H EMOG, HA1C2, PT, BMP3, LFT3 #### [address] MCH (RBC) [Entitic mass] 32.0 pg Normal 26.0-34.0 [facility] Comment on above: Performed By: #### H EMOG, HA1C2, PT, BMP3, LFT3 #### [address] MCHC (RBC) [Mass/Vol] 33.0 % Normal 32.0-36.0 [facility] Comment on above: Performed By: #### H EMOG, HA1C2, PT, BMP3, LFT3 #### [place] [address] [address] [place] MCV (RBC) [Entitic vol] 97.0 fL Normal 80.0-98.0 [facility] Comment on above: Performed By: #### H EMOG, HA1C2, PT, BMP3, LFT3 #### [place] [address] [address] [place] Platelet mean volume (Bld) [Entitic vol] 8.3 fL Normal 7.4-10.4 [facility] Comment on above: Performed By: #### H EMOG, HA1C2, PT, BMP3, LFT3 #### [place] [address] [address] [place] Platelets (Bld) [#/Vol] 165 10*3/uL Normal 140-440 [facility] Comment on above: Performed By: #### H EMOG, HA1C2, PT, BMP3, LFT3 #### [place] [address] [address] [place], [place] RBC (Bld) [#/Vol] 2.51 10*6/uL Low 4.40-5.90 [facility] Comment on above: Performed By: #### H EMOG, HA1C2, PT, BMP3, LFT3 #### [place] [address] [address] [place] WBC (Bld) [#/Vol] 11.3 10*3/uL High 3.6-10.7 [facility] Comment on above: Performed By: #### H EMOG, HA1C2, PT, BMP3, LFT3 #### [place] [address] [address] [place] Magnesiumon 12-17-2019 Magnesium [Mass/Vol] 2.3 mg/dL Normal 1.6-2.3 [facility] Comment on above: Performed By: #### H EMOG, HA1C2, PT, BMP3, LFT3 #### [place] [address] [place], [place] Magnesium [Mass/Vol] 2.3 mg/dL 1.6 - 2.3 mg/dL [facility] [place] Otheron 12-17-2019 Interpretation and review of laboratory results Abnormal [facility] [place] Test Performed by [facility], [address] [place] [address] [facility] [place] Test Performed by [facility], [address] [place] [address] [facility] POCT Glucoseon 12-17-2019 Glucose [Mass/Vol] 307 mg/dL High 70 - 100 mg/dL [facility] [place] Comment on above: Test performed by gl ucose meter. Results may be 10%-15% lower than serum/plasma values. (CLIA ID [id number]) Interpretation and review of laboratory results Abnormal [facility] [place] Test Performed by [facility], [address] [facility] [place] [address] [facility] Glucose [Mass/Vol] 207 mg/dL High 70 - 100 mg/dL [facility] Comment on above: Test performed by gl ucose meter. Results may be 10%-15% lower than serum/plasma values. (CLIA ID [id number]) Interpretation and review of laboratory results Abnormal [facility] [place] Test Performed by [facility], [address] [place] [address] [facility] Interpretation and review of laboratory results Abnormal [facility] [place] Test Performed by [facility], [address] [place] [address] [facility] Glucose [Mass/Vol] 166 mg/dL High 70 - 100 mg/dL [facility] Comment on above: Test performed by gl ucose meter. Results may be 10%-15% lower than serum/plasma values. (CLIA ID [id number]) Glucose [Mass/Vol] 101 mg/dL High 70 - 100 mg/dL [facility] Comment on above: Test performed by gl ucose meter. Results may be 10%-15% lower than serum/plasma values. (CLIA ID [id number]) Interpretation and review of laboratory results Abnormal [facility] [place] Test Performed by [facility], [address] [place] [address] [facility], [place] Glucose [Mass/Vol] 85 mg/dL 70 - 100 mg/dL [facility], [place] Comment on above: Test performed by gl ucose meter. Results may be 10%-15% lower than serum/plasma values. (CLIA ID [id number]) Test Performed by [facility], [address] [place] [address] [facility], [place] Glucose [Mass/Vol] 95 mg/dL 70 - 100 mg/dL [facility], [place] Comment on above: Test performed by gl ucose meter. Results may be 10%-15% lower than serum/plasma values. (CLIA ID [id number]) Test Performed by [facility], [address] [place] [address] [facility], [place] Glucose [Mass/Vol] 99 mg/dL 70 - 100 mg/dL [facility], [place] Comment on above: Test performed by gl ucose meter. Results may be 10%-15% lower than serum/plasma values. (CLIA ID [id number]) Test Performed by [facility], [address] [place] [address] [facility], [place] Glucose [Mass/Vol] 74 mg/dL 70 - 100 mg/dL [facility], [place] Comment on above: Test performed by gl ucose meter. Results may be 10%-15% lower than serum/plasma values. (CLIA ID [id number]) Test Performed by [facility], [address] [place] [address] [facility], [place] Glucose [Mass/Vol] 71 mg/dL 70 - 100 mg/dL [facility], [place] Comment on above: Test performed by gl ucose meter. Results may be 10%-15% lower than serum/plasma values. (CLIA ID [id number]) Test Performed by [facility], [address] [place] [address] [facility], [place] Glucose [Mass/Vol] 94 mg/dL 70 - 100 mg/dL [facility], [place] Comment on above: Test performed by gl ucose meter. Results may be 10%-15% lower than serum/plasma values. (CLIA ID [id number]) Test Performed by [facility], [facility] [address] [facility] [place] [address] [place], [place] Glucose [Mass/Vol] 94 mg/dL 70 - 100 mg/dL [place], [place] Comment on above: Test performed by gl ucose meter. Results may be 10%-15% lower than serum/plasma values. (CLIA ID [id number]) Test Performed by [facility], [address] [facility] [place] [address] [place], [place] XR CHEST PORTABLEon 12-17-19 [facility] Incoming Radiology Results From [facility] - 12/17/2019 6:53 AM EDT Patient Name: DOUGLAS CALLAWAY Jr ---Diagnostic Radiology--- Exam Date/Time 12/17/2019 06:52:59 EDT Exam CR Chest Portable Ordering Physician COLTON MARROQUIN Accession Number [id number] CPT4 Codes 39834 () Reason For Exam SOB Report HISTORY: Status post CABG Portable AP chest 0536 hours is compared to previous study 24 hours ago. FINDINGS: Continued mild atelectatic changes both lung bases. Removal of [place]-Iza catheter since last exam with remaining right internal jugular introducer sheath Pleural tubes, mild colonic dilatation with high position of hepatic flexure Report Dictated on Workstation: [id number] --- Final --- Dictated: 12/17/2019 5:55 am Dictating Physician: MD ENNIS WILLIAM Signed Date and Time: 12/17/2019 5:58 am Signed by: MD ENNIS WILLIAM Transcribed Date and Time: 12/17/2019 5:55 [place], [place] Patient Name: DOUGLAS SIMON Jr ---Diagnostic Radiology--- Exam Date/Time 12/17/2019 06:52:59 EDT Exam CR Chest Portable Ordering Physician COLTON MARROQUIN Accession Number [id number] CPT4 Codes 65761 () Reason For Exam SOB Report HISTORY: Status post CABG Portable AP chest 0536 hours is compared to previous study 24 hours ago. FINDINGS: Continued mild atelectatic changes both lung bases. Removal of [place]-Iza catheter since last exam with remaining right internal jugular introducer sheath Pleural tubes, mild colonic dilatation with high position of hepatic flexure Report Dictated on Workstation: [id number] --- Final --- Dictated: 12/17/2019 5:55 am Dictating Physician: MD ENNIS WILLIAM Signed Date and Time: 12/17/2019 5:58 am Signed by: MD ENNIS WILLIAM Transcribed Date and Time: 12/17/2019 5:55 [facility], [place] Basic Metabolic Panelon - Calcium [Mass/Vol] 8.7 mg/dL Normal 8.4-10.4 [facility] Comment on above: Performed By: #### H EMOG, HA1C2, PT, BMP3, LFT3 #### [facility] [address] [place], [place] Glucose [Mass/Vol] 91 mg/dL Normal 70-100 [facility] Comment on above: Performed By: #### H EMOG, HA1C2, PT, BMP3, LFT3 #### [place] [address] [place], [place] Urea nitrogen [Mass/Vol] 17 mg/dL Normal 7-20 [facility] Comment on above: Performed By: #### H EMOG, HA1C2, PT, BMP3, LFT3 #### [facility] [address] [place] [address] Anion gap [Moles/Vol] 10 Normal [facility] Comment on above: Performed By: #### H EMOG, HA1C2, PT, BMP3, LFT3 #### [place] [address] [place], [place] CO2 [Moles/Vol] 25 mmol/L Normal 22-30 [facility] Comment on above: Performed By: #### H EMOG, HA1C2, PT, BMP3, LFT3 #### [facility] [address] [place], [place] Creatinine [Mass/Vol] 0.79 mg/dL Normal 0.52-1.25 [facility] Comment on above: Performed By: #### H EMOG, HA1C2, PT, BMP3, LFT3 #### [facility] [address] [place] [address] GFR/1.73 sq M predicted among blacks MDRD (S/P/Bld) [Vol rate/Area] mL/min/{1.73_m2} Normal >60 [facility] Comment on above: Performed By: #### H EMOG, HA1C2, PT, BMP3, LFT3 #### [facility] [address] [place] [address] GFR/1.73 sq M predicted among non-blacks MDRD (S/P/Bld) [Vol rate/Area] mL/min/{1.73_m2} Normal >60 [facility] Comment on above: Result Comment: Sour ce- MDRD equation with creatinine calibration to IDMS(NKDEP) eGFR not recommended for drug dose adjustment Performed By: #### H EMOG, HA1C2, PT, BMP3, LFT3 #### [facility] [address] [place] [address] Potassium [Moles/Vol] 4.3 mmol/L Normal 3.5-5.1 [facility] Comment on above: Performed By: #### H EMOG, HA1C2, PT, BMP3, LFT3 #### [facility] [address] [place] [address] Chloride [Moles/Vol] 105 mmol/L Normal 98-107 [facility] Comment on above: Performed By: #### H EMOG, HA1C2, PT, BMP3, LFT3 #### [facility] [address] [place] [address] Sodium [Moles/Vol] 141 mmol/L Normal 135-145 [facility] Comment on above: Performed By: #### H EMOG, HA1C2, PT, BMP3, LFT3 #### [facility] [address] [place] [address] Anion gap [Moles/Vol] 10 mmol/L [facility], [place] Comment on above: Test Performed by [facility], [facility] [place] [address] Calcium [Mass/Vol] 8.7 mg/dL 8.4 - 10. 4 mg/dL [place], [place] Comment on above: Test Performed by [facility], [facility] [place] [address] Chloride [Moles/Vol] 105 mmol/L 98 - 107 mmol/L [place] Comment on above: Test Performed by [facility], [facility] [place] [address] CO2 [Moles/Vol] 25 mmol/L 22 - 30 mmol/L [place] Comment on above: Test Performed by [facility], [facility] [place] [address] Creatinine [Mass/Vol] 0.79 mg/dL 0.52 - 1.25 mg/dL [place] Comment on above: Test Performed by [facility], [facility] [place] [address] EGFR IF NonAfrican Trinidadian >60.0 >60 mL/min [place], [place] Comment on above: Test Performed by [facility], [facility] [place] [address] Source- MDRD equation with creatinine calibration to IDMS(NKDEP) eGFR not recommended for drug dose adjustment GFR/1.73 sq M predicted among blacks MDRD (S/P/Bld) [Vol rate/Area] mL/min/{1.73_m2} >60 mL/min [place] Comment on above: Test Performed by [facility], [facility] [place] [address] Glucose [Mass/Vol] 91 mg/dL 70 - 100 mg/dL [place] Comment on above: Test Performed by [facility], [facility] [place] [address] Potassium [Moles/Vol] 4.3 mmol/L 3.5 - 5.1 mmol/L [place], [place] Comment on above: Test Performed by [employer] [facility], [facility] [place] [address] Sodium [Moles/Vol] 141 mmol/L 135 - 145 mmol/L [place] Urea nitrogen [Mass/Vol] 17 mg/dL 7 - 20 mg/dL [place] Comment on above: Test Performed by [facility], [address] [place] [address] CBCon 12-16-2019 Erythrocyte distribution width (RBC) [Ratio] 13.6 % 11.5 - 14.5 % [place] Comment on above: Test Performed by [facility], [address] [place] [address] Hematocrit (Bld) [Volume fraction] 23.1 % Low 40 - 52 % [place] Comment on above: Test Performed by [facility], [facility] [place] [address] Hemoglobin (Bld) [Mass/Vol] 7.9 g/dL Low 13 - 18 g/dL [place] Comment on above: Test Performed by [facility], [facility] [place] [address] Interpretation and review of laboratory results Abnormal [place] MCH (RBC) [Entitic mass] 32.5 pg 26 - 34 pg [place] Comment on above: Test Performed by [facility], [facility] [place] [address] MCHC (RBC) [Mass/Vol] 34.1 % 32 - 36 % [place] Comment on above: Test Performed by [facility], [facility] [place] [address] MCV (RBC) [Entitic vol] 95.0 fL 80 - 98 fL [place] Comment on above: Test Performed by [facility], [facility] [place] [address] Platelet mean volume (Bld) [Entitic vol] 8.1 fL 7.4 - 10.4 fL [place] Comment on above: Test Performed by [facility], [facility] [place] [address] Platelets (Bld) [#/Vol] 138 10*3/uL Low 140 - 440 10*3/uL [place] Comment on above: Test Performed by [facility], [facility] [place] [address] RBC (Bld) [#/Vol] 2.43 10*6/uL Low 4.4 - 5.9 10*6/uL [place] Comment on above: Test Performed by [facility], [address] [place] [address] WBC (Bld) [#/Vol] 10.5 10*3/uL 3.6 - 10.7 10*3/uL [place] Test Performed by [facility], [facility] [place] [address] [place], [place] CR Chest Portableon 12-16-19 20 CR Chest Portable Patient Name: DOUGLAS SIMON Jr Diagnostic Radiology Exam Date/Time 12/16/2019 06:42:08 EDT Exam CR Chest Portable Ordering Physician COLTON MARROQUIN Accession Number [id number] CPT4 Codes 94163 () Reason For Exam SOB Report INDICATION:Shortness of breath. PORTABLE CHEST: COMPARISON: 12/15/2019. Lung volumes are shallow. Mild worsening of the left lower lung atelectasis. Mild elevation of the right hemidiaphragm is stable. Heart and mediastinal contours are stable. Endotracheal tube has been removed. [place]-Iza catheter is in satisfactory position. No pneumothorax. IMPRESSION: Removal of the endotracheal tube. Mild worsening left lower lung atelectasis. 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1955 Requested By: JOSHUA TA Order Number: [id number] Reading MD: Morgan Sanchez Measurements Intervals [place] Rate: 118 P: 24 [place]: 140 QRS: 17 QRSD: 82 T: -13 QT: 318 QTc: 446 Interpretive Statements Sinus tachycardia Borderline T wave abnormalities Electronically Signed On 12-16-2019 7:57:06 EDT by [facility], [facility] Incoming Cardiology Results From [facility] - 12/16/2019 7:58 AM EDT [facility] Test Date: 2019-12-15 Pat Name: Douglas Callaway Department: [facility] Room: 1[facility]U 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1955 Requested By: JOSHUA TA Order Number: [id number] Reading MD: Morgan Sanchez Measurements Intervals [place] Rate: 118 P: 24 [place]: 140 QRS: 17 QRSD: 82 T: -13 QT: 318 QTc: 446 Interpretive Statements Sinus tachycardia Borderline T wave abnormalities Electronically Signed On 12-16-2019 7:57:06 EDT by [facility] CT EKG 12 leadon 12-16-2019 [facility] Test Date: 2019-12-16 Pat Name: [facility] Department: [facility] Room: [id number] 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1955 Requested By: COLTON MARROQUIN Order Number: [id number] Reading MD: Morgan Sanchez Measurements Intervals [place] Rate: 130 P: 44 WA: 130 QRS: 36 QRSD: 80 T: -13 QT: 311 QTc: 458 Interpretive Statements Sinus tachycardia Borderline T abnormalities, inferior leads Electronically Signed On 12-16-2019 10:55:45 EDT by [facility], [facility], [facility] Incoming Cardiology Results From [facility] - 12/16/2019 10:56 AM EDT [facility] Test Date: 2019-12-16 Pat Name: Douglas Chaoehan Department: [facility] Room: [id number] 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 Results may be 10%-15% lower than serum/plasma values. (CLIA ID [id number]) Performed By: #### H EMOG, HA1C2, PT, BMP3, LFT3 #### [facility] [employer] [facility] [address] [place] [address] Glucose [Mass/Vol] 133 mg/dL [address] Comment on above: Result Comment: Test performed by glucose meter. Results may be 10%-15% lower than serum/plasma values. (CLIA ID [id number]) Performed By: #### H EMOG, HA1C2, PT, BMP3, LFT3 #### [facility] [employer] [facility] [address] [place] [address] Glucose [Mass/Vol] 174 mg/dL [address] Comment on above: Result Comment: Test performed by glucose meter. Results may be 10%-15% lower than serum/plasma values. (CLIA ID [id number]) Performed By: #### H EMOG, HA1C2, PT, BMP3, LFT3 #### [facility] [employer] [facility] [address] [place] [address] Glucose [Mass/Vol] 197 mg/dL [address] Comment on above: Result Comment: Test performed by glucose meter. Results may be 10%-15% lower than serum/plasma values. (CLIA ID [id number]) Performed By: #### H EMOG, HA1C2, PT, BMP3, LFT3 #### [employer] [facility] [address] [place] [address] Glucose [Mass/Vol] 174 mg/dL [address] Comment on above: Result Comment: Test performed by glucose meter. Results may be 10%-15% lower than serum/plasma values. (CLIA ID [id number]) Performed By: #### H EMOG, HA1C2, PT, BMP3, LFT3 #### [facility] [address] [place] [address] Glucose [Mass/Vol] 104 mg/dL High 70-100 [facility] Comment on above: Result Comment: Test performed by glucose meter. Results may be 10%-15% lower than serum/plasma values. (CLIA ID [id number]) Performed By: #### H EMOG, HA1C2, PT, BMP3, LFT3 #### [facility] [address] [place] [address] Glucose [Mass/Vol] 75 mg/dL Normal 70-100 [place], [place] Comment on above: Result Comment: Test performed by glucose meter. Results may be 10%-15% lower than serum/plasma values. (CLIA ID [id number]) Performed By: #### H EMOG, HA1C2, PT, BMP3, LFT3 #### [facility] [address], [place] Test performed by gl ucose meter. Results may be 10%-15% lower than serum/plasma values. (CLIA ID [id number]) Glucose [Mass/Vol] 65 mg/dL Low 70-100 [facility] Comment on above: Result Comment: Test performed by glucose meter. Results may be 10%-15% lower than serum/plasma values. (CLIA ID [id number]) Performed By: #### H EMOG, HA1C2, PT, BMP3, LFT3 #### [facility] [address] [place] [address] Glucose [Mass/Vol] 71 mg/dL Normal 70-100 [facility] Comment on above: Result Comment: Test performed by glucose meter. Results may be 10%-15% lower than serum/plasma values. (CLIA ID [id number]) Performed By: #### H EMOG, HA1C2, PT, BMP3, LFT3 #### [facility] [address] [place] [address] Glucose [Mass/Vol] 97 mg/dL Normal 70-100 [facility] Comment on above: Result Comment: Test performed by glucose meter. Results may be 10%-15% lower than serum/plasma values. (CLIA ID [id number]) Performed By: #### H EMOG, HA1C2, PT, BMP3, LFT3 #### [facility] [employer] [facility] [address] [place] [address] Glucose [Mass/Vol] 115 mg/dL High 70-100 [facility] Comment on above: Result Comment: Test performed by glucose meter. Results may be 10%-15% lower than serum/plasma values. (CLIA ID [id number]) Performed By: #### H EMOG, HA1C2, PT, BMP3, LFT3 #### [facility] [employer] [facility] [address] [place] [address] Glucose [Mass/Vol] 134 mg/dL High 70-100 [facility] Comment on above: Result Comment: Test performed by glucose meter. Results may be 10%-15% lower than serum/plasma values. (CLIA ID [id number]) Performed By: #### H EMOG, HA1C2, PT, BMP3, LFT3 #### [facility] [employer] [facility] [address] [place] [address] Glucose [Mass/Vol] 119 mg/dL High 70-100 [facility] Comment on above: Result Comment: Test performed by glucose meter. Results may be 10%-15% lower than serum/plasma values. (CLIA ID [id number]) Performed By: #### H EMOG, HA1C2, PT, BMP3, LFT3 #### [facility] [employer] [facility] [address] [place] [address] Glucose [Mass/Vol] 72 mg/dL Normal 70-100 [facility] Comment on above: Result Comment: Test performed by glucose meter. Results may be 10%-15% lower than serum/plasma values. (CLIA ID [id number]) Performed By: #### H EMOG, HA1C2, PT, BMP3, LFT3 #### [facility] [employer] [facility] [address] [place] [address] Glucose [Mass/Vol] 91 mg/dL Normal 70-100 [facility] Comment on above: Result Comment: Test performed by glucose meter. Results may be 10%-15% lower than serum/plasma values. (CLIA ID [id number]) Performed By: #### H EMOG, HA1C2, PT, BMP3, LFT3 #### [facility] [address] [place] [address] Glucose [Mass/Vol] 76 mg/dL Normal 70-100 [facility] Comment on above: Result Comment: Test performed by glucose meter. Results may be 10%-15% lower than serum/plasma values. (CLIA ID [id number]) Performed By: #### H EMOG, HA1C2, PT, BMP3, LFT3 #### [facility] [address] [place] [address] Glucose [Mass/Vol] 90 mg/dL Normal 70-100 [facility] Comment on above: Result Comment: Test performed by glucose meter. Results may be 10%-15% lower than serum/plasma values. (CLIA ID [id number]) Performed By: #### H EMOG, HA1C2, PT, BMP3, LFT3 #### [place] [address] [place] [address] Glucose [Mass/Vol] 82 mg/dL Normal 70-100 [facility] Comment on above: Result Comment: Test performed by glucose meter. Results may be 10%-15% lower than serum/plasma values. (CLIA ID [id number]) Performed By: #### H EMOG, HA1C2, PT, BMP3, LFT3 #### [facility] [address] [place] [address] Glucose [Mass/Vol] 91 mg/dL Normal 70-100 [facility] Comment on above: Result Comment: Test performed by glucose meter. Results may be 10%-15% lower than serum/plasma values. (CLIA ID [id number]) Performed By: #### H EMOG, HA1C2, PT, BMP3, LFT3 #### [facility] [address] [place] [address] Glucose [Mass/Vol] 90 mg/dL Normal 70-100 [facility] Comment on above: Result Comment: Test performed by glucose meter. Results may be 10%-15% lower than serum/plasma values. (CLIA ID [id number]) Performed By: #### H EMOG, HA1C2, PT, BMP3, LFT3 #### [facility] [address] [place] [address] Glucose [Mass/Vol] 97 mg/dL Normal 70-100 [facility] Comment on above: Result Comment: Test performed by glucose meter. Results may be 10%-15% lower than serum/plasma values. (CLIA ID [id number]) Performed By: #### H EMOG, HA1C2, PT, BMP3, LFT3 #### [facility] [address] [place] [address] Glucose [Mass/Vol] 98 mg/dL Normal 70-100 [facility] Comment on above: Result Comment: Test performed by glucose meter. Results may be 10%-15% lower than serum/plasma values. (CLIA ID [id number]) Performed By: #### H EMOG, HA1C2, PT, BMP3, LFT3 #### [facility] [employer] [place] [address] [place] [address] Glucose [Mass/Vol] 109 mg/dL High 70-100 [facility] Comment on above: Result Comment: Test performed by glucose meter. Results may be 10%-15% lower than serum/plasma values. (CLIA ID [id number]) Performed By: #### H EMOG, HA1C2, PT, BMP3, LFT3 #### [facility] [employer] [facility] [address] [place] [address] Glucose [Mass/Vol] 109 mg/dL High 70-100 [facility] Comment on above: Result Comment: Test performed by glucose meter. Results may be 10%-15% lower than serum/plasma values. (CLIA ID [id number]) Performed By: #### H EMOG, HA1C2, PT, BMP3, LFT3 #### [facility] [employer] [facility] [address] [place] [address] Glucose [Mass/Vol] 113 mg/dL High 70-100 [facility] Comment on above: Result Comment: Test performed by glucose meter. Results may be 10%-15% lower than serum/plasma values. (CLIA ID [id number]) Performed By: #### H EMOG, HA1C2, PT, BMP3, LFT3 #### [address] [place], [place] Hemogramon 12-16-2019 Erythrocyte distribution width (RBC) [Ratio] 13.6 % Normal 11.5-14.5 [facility] Comment on above: Performed By: #### H EMOG, HA1C2, PT, BMP3, LFT3 #### [address] [place], [place] Hematocrit (Bld) [Volume fraction] 23.1 % Low 40.0-52.0 [facility] Comment on above: Performed By: #### H EMOG, HA1C2, PT, BMP3, LFT3 #### [address] [place] [address], [place] Hemoglobin (Bld) [Mass/Vol] 7.9 g/dL Low 13.0-18.0 [facility] Comment on above: Performed By: #### H EMOG, HA1C2, PT, BMP3, LFT3 #### [address] [address], [place] MCH (RBC) [Entitic mass] 32.5 pg Normal 26.0-34.0 [facility] Comment on above: Performed By: #### H EMOG, HA1C2, PT, BMP3, LFT3 #### [address] [place], [place] MCHC (RBC) [Mass/Vol] 34.1 % Normal 32.0-36.0 [facility] Comment on above: Performed By: #### H EMOG, HA1C2, PT, BMP3, LFT3 #### [address] [place], [place] MCV (RBC) [Entitic vol] 95.0 fL Normal 80.0-98.0 [facility] Comment on above: Performed By: #### H EMOG, HA1C2, PT, BMP3, LFT3 #### [place] [address], [place] Platelet mean volume (Bld) [Entitic vol] 8.1 fL Normal 7.4-10.4 [facility] Comment on above: Performed By: #### H EMOG, HA1C2, PT, BMP3, LFT3 #### [address] [place] [address], [place] Platelets (Bld) [#/Vol] 138 10*3/uL Low 140-440 [facility] Comment on above: Performed By: #### H EMOG, HA1C2, PT, BMP3, LFT3 #### [address] RBC (Bld) [#/Vol] 2.43 10*6/uL Low 4.40-5.90 [facility] Comment on above: Performed By: #### H EMOG, HA1C2, PT, BMP3, LFT3 #### [address] [place] [address], [place] WBC (Bld) [#/Vol] 10.5 10*3/uL Normal 3.6-10.7 [facility] Comment on above: Performed By: #### H EMOG, HA1C2, PT, BMP3, LFT3 #### [address] [place] [address], [place] Magnesiumon 12-16-2019 Magnesium [Mass/Vol] 2.2 mg/dL Normal 1.6-2.3 [facility] Comment on above: Performed By: #### H EMOG, HA1C2, PT, BMP3, LFT3 #### [address] Magnesium [Mass/Vol] 2.2 mg/dL 1.6 - 2.3 mg/dL [facility], [place] Otheron 12-16-2019 Test Performed by [place] [address] [place], [place] [facility] Test Performed by [facility], [address] [place] [address] [facility], [place] Test Performed by [facility], [address] [place] [address] [facility], [place] POCT Glucoseon 12-16-2019 Glucose [Mass/Vol] 78 mg/dL 70 - 100 mg/dL [facility], [place] Comment on above: Test performed by gl ucose meter. Results may be 10%-15% lower than serum/plasma values. (CLIA ID [id number]) Glucose [Mass/Vol] 100 mg/dL 70 - 100 mg/dL [facility], [place] Comment on above: Test performed by gl ucose meter. Results may be 10%-15% lower than serum/plasma values. (CLIA ID [id number]) Test Performed by [facility], [address] [place] [address] [facility], [place] Glucose [Mass/Vol] 107 mg/dL High 70 - 100 mg/dL [facility], [place] Comment on above: Test performed by gl ucose meter. Results may be 10%-15% lower than serum/plasma values. (CLIA ID [id number]) Interpretation and review of laboratory results Abnormal [facility] [place] Test Performed by [facility], [address] [place] [address] [facility], [place] Glucose [Mass/Vol] 133 mg/dL High 70 - 100 mg/dL [facility], [place] Comment on above: Test performed by gl ucose meter. Results may be 10%-15% lower than serum/plasma values. (CLIA ID [id number]) Interpretation and review of laboratory results Abnormal [facility] [place] Test Performed by [facility], [address] [place] [address] [facility] [place], [place] Glucose [Mass/Vol] 174 mg/dL High 70 - 100 mg/dL [facility] [place], [place] Comment on above: Test performed by gl ucose meter. Results may be 10%-15% lower than serum/plasma values. (CLIA ID [id number]) Interpretation and review of laboratory results Abnormal [facility] [place] Test Performed by [facility], [address] [place] [address] [facility] [place] Glucose [Mass/Vol] 197 mg/dL High 70 - 100 mg/dL [facility] [place] Comment on above: Test performed by gl ucose meter. Results may be 10%-15% lower than serum/plasma values. (CLIA ID [id number]) Interpretation and review of laboratory results Abnormal [facility] [place] Test Performed by [facility], [address] [place] [address] [facility] [place] Glucose [Mass/Vol] 174 mg/dL High 70 - 100 mg/dL [facility] [place] Comment on above: Test performed by gl ucose meter. Results may be 10%-15% lower than serum/plasma values. (CLIA ID [id number]) Interpretation and review of laboratory results Abnormal [facility] [place] Test Performed by [facility], [address] [place] [address] [facility] [place] Glucose [Mass/Vol] 104 mg/dL High 70 - 100 mg/dL [facility] [place] Comment on above: Test performed by gl ucose meter. Results may be 10%-15% lower than serum/plasma values. (CLIA ID [id number]) Interpretation and review of laboratory results Abnormal [facility] [place] Test Performed by [facility], [address] [place] [address] [facility] [place] Test Performed by [facility], [address] [place] [address] [facility] [place] Glucose [Mass/Vol] 65 mg/dL Low 70 - 100 mg/dL [facility] [place] Comment on above: Test performed by gl ucose meter. Results may be 10%-15% lower than serum/plasma values. (CLIA ID [id number]) Interpretation and review of laboratory results Abnormal [facility] [place] Test Performed by [facility], [address] [place] [address] [facility] [place] Glucose [Mass/Vol] 71 mg/dL 70 - 100 mg/dL [facility] [place] Comment on above: Test performed by gl ucose meter. Results may be 10%-15% lower than serum/plasma values. (CLIA ID [id number]) Test Performed by [facility], [address] [place] [address] [facility] [place] Glucose [Mass/Vol] 97 mg/dL 70 - 100 mg/dL [facility] [place] Comment on above: Test performed by gl ucose meter. Results may be 10%-15% lower than serum/plasma values. (CLIA ID [id number]) Test Performed by [facility], [address] [place] [address] [facility] [place] Glucose [Mass/Vol] 115 mg/dL High 70 - 100 mg/dL [facility] [place] Comment on above: Test performed by gl ucose meter. Results may be 10%-15% lower than serum/plasma values. (CLIA ID [id number]) Interpretation and review of laboratory results Abnormal [facility] [place] Test Performed by [facility], [address] [place] [address] [facility] [place] Glucose [Mass/Vol] 134 mg/dL High 70 - 100 mg/dL [facility] [place] Comment on above: Test performed by gl ucose meter. Results may be 10%-15% lower than serum/plasma values. (CLIA ID [id number]) Interpretation and review of laboratory results Abnormal [facility] [place] Test Performed by [facility], [address] [place] [address] [facility] [place] Glucose [Mass/Vol] 119 mg/dL High 70 - 100 mg/dL [facility] Comment on above: Test performed by gl ucose meter. Results may be 10%-15% lower than serum/plasma values. (CLIA ID [id number]) Interpretation and review of laboratory results Abnormal [facility] [place] Test Performed by [employer] [facility], [address] [place] [address] [facility] [place] Glucose [Mass/Vol] 72 mg/dL 70 - 100 mg/dL [facility] [place] Comment on above: Test performed by gl ucose meter. Results may be 10%-15% lower than serum/plasma values. (CLIA ID [id number]) Test Performed by [facility], [address] [place] [address] [facility], [place] Glucose [Mass/Vol] 91 mg/dL 70 - 100 mg/dL [facility], [place] Comment on above: Test performed by gl ucose meter. Results may be 10%-15% lower than serum/plasma values. (CLIA ID [id number]) Test Performed by [facility], [address] [place] [address] [facility], [place] Glucose [Mass/Vol] 76 mg/dL 70 - 100 mg/dL [place], [place] Comment on above: Test performed by gl ucose meter. Results may be 10%-15% lower than serum/plasma values. (CLIA ID [id number]) Test Performed by [facility], [address] [place] [address] [facility], [place] Glucose [Mass/Vol] 90 mg/dL 70 - 100 mg/dL [place] Comment on above: Test performed by gl ucose meter. Results may be 10%-15% lower than serum/plasma values. (CLIA ID [id number]) Test Performed by [facility], [address] [place] [address] [facility], [place] Glucose [Mass/Vol] 82 mg/dL 70 - 100 mg/dL [place] Comment on above: Test performed by gl ucose meter. Results may be 10%-15% lower than serum/plasma values. (CLIA ID [id number]) Test Performed by [facility], [address] [place] [address] [facility], [place] Glucose [Mass/Vol] 91 mg/dL 70 - 100 mg/dL [facility], [place] Comment on above: Test performed by gl ucose meter. Results may be 10%-15% lower than serum/plasma values. (CLIA ID [id number]) Test Performed by [facility], [address] [place] [address] [facility], [place] Glucose [Mass/Vol] 90 mg/dL 70 - 100 mg/dL [place] Comment on above: Test performed by gl ucose meter. Results may be 10%-15% lower than serum/plasma values. (CLIA ID [id number]) Test Performed by [facility], [address] [place] [address] [place] Glucose [Mass/Vol] 97 mg/dL 70 - 100 mg/dL [place] Comment on above: Test performed by gl ucose meter. Results may be 10%-15% lower than serum/plasma values. (CLIA ID [id number]) Test Performed by [facility], [address] [place] [address] [place] Glucose [Mass/Vol] 98 mg/dL 70 - 100 mg/dL [place] Comment on above: Test performed by gl ucose meter. Results may be 10%-15% lower than serum/plasma values. (CLIA ID [id number]) Glucose [Mass/Vol] 75 mg/dL 70 - 100 mg/dL [place] Comment on above: Test performed by gl ucose meter. Results may be 10%-15% lower than serum/plasma values. (CLIA ID [id number]) XR CHEST PORTABLEon 12-16-19 20 [facility], [facility] Incoming Radiology Results From [facility] - 12/16/2019 9:26 AM EDT Patient Name: DOUGLAS CALLAWAY Jr ---Diagnostic Radiology--- Exam Date/Time 12/16/2019 06:42:08 EDT Exam CR Chest Portable Ordering Physician COLTON MARROQUIN Accession Number [id number] CPT4 Codes 47103 () Reason For Exam SOB Report INDICATION:Shortness of breath. PORTABLE CHEST: COMPARISON: 12/15/2019. Lung volumes are shallow. Mild worsening of the left lower lung atelectasis. Mild elevation of the right hemidiaphragm is stable. Heart and mediastinal contours are stable. Endotracheal tube has been removed. [place]-Iza catheter is in satisfactory position. No pneumothorax. IMPRESSION: Removal of the endotracheal tube. Mild worsening left lower lung atelectasis. Report Dictated on --- Final --- Dictated: 12/16/2019 9:23 am Dictating Physician: MD TURK LAURA Signed Date and Time: 12/16/2019 9:24 am Signed by: MD TURK LAURA Transcribed Date and Time: 12/16/2019 9:23 [place], [place] Patient Name: DOUGLAS SIMON Jr ---Diagnostic Radiology--- Exam Date/Time 12/16/2019 06:42:08 EDT Exam CR Chest Portable Ordering Physician COLTON MARROQUIN Accession Number [id number] CPT4 Codes 23559 () Reason For Exam SOB Report INDICATION:Shortness of breath. PORTABLE CHEST: COMPARISON: 12/15/2019. Lung volumes are shallow. Mild worsening of the left lower lung atelectasis. Mild elevation of the right hemidiaphragm is stable. Heart and mediastinal contours are stable. Endotracheal tube has been removed. [place]-Iza catheter is in satisfactory position. No pneumothorax. IMPRESSION: Removal of the endotracheal tube. Mild worsening left lower lung atelectasis. Report Dictated on --- Final --- Dictated: 12/16/2019 9:23 am Dictating Physician: MD TURK LAURA Signed Date and Time: 12/16/2019 9:24 am Signed by: MD TURK LAURA Transcribed Date and Time: 12/16/2019 9:23 [place], [place] Arterial Blood Gaseson 12-14 CO2 [Moles/Vol] 25.5 mmol/L Normal 23.0-27.0 [facility] [employer] Comment on above: Performed By: #### I FIONA ABG ####[address] [place] [address] HCO3 (Bld) [Moles/Vol] 24.2 mmol/L Normal 21.0-25.0 [facility] Comment on above: Performed By: #### I FIONA ABG ####[address] [place] [address] Hemoglobin (Bld) [Mass/Vol] 8.3 g/dL Normal ScreenOnly [facility] Comment on above: Performed By: #### I BILLY JAIMES ####[place] [place], [place] Oxygen (Bld) [Partial pressure] 373.8 mm[Hg] High 80.0-100.0 [facility] Comment on above: Performed By: #### I BILLY JAIMES ####[address] Oxygen saturation in Blood 98.6 % Normal 95.0-100.0 [facility] Comment on above: Performed By: #### I BILLY JAIMES ####[address] [place], [place] pCO2 40.3 mm[Hg] Normal 35.0-45.0 [facility] Comment on above: Performed By: #### BILLY GARCIA ####[address] [place], [place] pH (Bld) 7.397 Normal 7.350-7.450 [facility] Comment on above: Performed By: #### I BILLY JAIMES ####[facility] [employer] [id number] [place], [place] Std Base Excess -0.6 mmol/L Normal -3.0-3.0 [facility] Comment on above: Performed By: #### I AB FIONAG ####[facility] [employer] [id number] [place], [place] FIO2 No data Normal [facility] Comment on above: Performed By: #### I AB FIONAG ####[facility] [employer] [id number] [place], [place] Basic Metabolic Panelon - 0-2019 Anion gap [Moles/Vol] 12 Normal [facility] Comment on above: Performed By: #### H EMOG, PT/AP, BMP3, MG3, PHOS3 ####[place] [place], [place] Calcium [Mass/Vol] 8.8 mg/dL Normal 8.4-10.4 [facility] Comment on above: Performed By: #### H EMOG, PT/AP, BMP3, MG3, PHOS3 ####[place] [place], [place] CO2 [Moles/Vol] 22 mmol/L Normal 22-30 [facility] Comment on above: Performed By: #### H EMOG, PT/AP, BMP3, MG3, PHOS3 ####[place] [place], [place] Glucose [Mass/Vol] 93 mg/dL Normal 70-100 [facility] Comment on above: Performed By: #### H EMOG, PT/AP, BMP3, MG3, PHOS3 ####[place] [place] [place], [place] Urea nitrogen [Mass/Vol] 19 mg/dL Normal 7-20 [facility] Comment on above: Performed By: #### H EMOG, PT/AP, BMP3, MG3, PHOS3 ####[place] [place] [place], [place] Creatinine [Mass/Vol] 0.95 mg/dL Normal 0.52-1.25 [facility] Comment on above: Performed By: #### H EMOG, PT/AP, BMP3, MG3, PHOS3 ####[place] [place], [place] GFR/1.73 sq M predicted among blacks MDRD (S/P/Bld) [Vol rate/Area] mL/min/{1.73_m2} Normal >60 [facility] Comment on above: Performed By: #### H EMOG, PT/AP, BMP3, MG3, PHOS3 ####[place] [place], [place] GFR/1.73 sq M predicted among non-blacks MDRD (S/P/Bld) [Vol rate/Area] mL/min/{1.73_m2} Normal >60 [facility] Comment on above: Result Comment: Sour ce- MDRD equation with creatinine calibration to IDMS(NKDEP) eGFR not recommended for drug dose adjustment Performed By: #### H EMOG, PT/AP, BMP3, MG3, PHOS3 ####[facility] [employer] [id number] [place] [address] Potassium [Moles/Vol] 3.2 mmol/L Low 3.5-5.1 [facility] Comment on above: Performed By: #### H EMOG, PT/AP, BMP3, MG3, PHOS3 ####[facility] [employer] [id number] [facility] [place] [address] Sodium [Moles/Vol] 142 mmol/L Normal 135-145 [facility] Comment on above: Performed By: #### H EMOG, PT/AP, BMP3, MG3, PHOS3 ####[facility] [employer] [id number] [place] [address] Chloride [Moles/Vol] 108 mmol/L High 98-107 [facility] Comment on above: Performed By: #### H EMOG, PT/AP, BMP3, MG3, PHOS3 ####[facility] [employer] [id number] [place] [address] Anion gap [Moles/Vol] 12 mmol/L [place] Comment on above: Test Performed by [facility], [address] [place] [address] Calcium [Mass/Vol] 8.8 mg/dL 8.4 - 10. 4 mg/dL [place], [place] Comment on above: Test Performed by [facility], [facility] [place] [address] Chloride [Moles/Vol] 108 mmol/L High 98 - 107 mmol/L [place] Comment on above: Test Performed by [facility], [facility] [place] [address] CO2 [Moles/Vol] 22 mmol/L 22 - 30 mmol/L [place] Comment on above: Test Performed by [facility], [facility] [place] [address] Creatinine [Mass/Vol] 0.95 mg/dL 0.52 - 1.25 mg/dL [place] Comment on above: Test Performed by [facility], [facility] [place] [address] EGFR IF NonAfrican Trinidadian >60.0 >60 mL/min [place], [place] Comment on above: Test Performed by [facility], [facility] [place] [address] Source- MDRD equation with creatinine calibration to IDMS(NKDEP) eGFR not recommended for drug dose adjustment GFR/1.73 sq M predicted among blacks MDRD (S/P/Bld) [Vol rate/Area] mL/min/{1.73_m2} >60 mL/min [place], [place] Comment on above: Test Performed by [facility], [facility] [place] [address] Glucose [Mass/Vol] 93 mg/dL 70 - 100 mg/dL [place] Comment on above: Test Performed by [facility], [facility] [place] [address] Potassium [Moles/Vol] 3.2 mmol/L Low 3.5 - 5.1 mmol/L [place] Comment on above: Test Performed by [facility], [facility] [place] [address] Sodium [Moles/Vol] 142 mmol/L 135 - 145 mmol/L [place] Urea nitrogen [Mass/Vol] 19 mg/dL 7 - 20 mg/dL [place] Comment on above: Test Performed by [facility], [facility] [place] [address] Blood Gas, Arterialon 2019 Base Excess, Arterial -0.6 mmol/L -3 - 3 mmol/L [place] Comment on above: Test Performed by [facility], [facility] [place] [address] HCO3, Arterial 24.2 mmol/L 21 - 25 mmol/L [place] Comment on above: Test Performed by [employer] [facility], [facility] [place] [address] Hemoglobin (Bld) [Mass/Vol] 8.3 g/dL [facility]Only [place] Interpretation and review of laboratory results Abnormal [place] Oxygen saturation in Blood 98.6 % 95 - 100 % [place] Comment on above: Test Performed by [employer] [facility], [address] [place] [address] pCO2, Arterial 40.3 mm[Hg] 35 - 45 mm[Hg] [place] Comment on above: Test Performed by [employer] [facility], [address] [place] [address] pH, Arterial 7.397 [place] Comment on above: Test Performed by [employer] [facility], [address] [place] [address] pO2, Arterial 373.8 mm[Hg] High 80 - 100 mm[Hg] [place] Comment on above: Test Performed by [employer] [facility], [address] [place] [address] Sodium [Moles/Vol] No data [place], [place] Comment on above: Test Performed by [employer] [facility], [address] [place] [address] TCO2, Arterial 25.5 mmol/L 23 - 27 mmol/L [place] Comment on above: Test Performed by [employer] [facility], [address] [place] [address] Test Performed by [facility] [employer] [facility], [address] [place] [place] [address] [place], [place] CBCon 12-15-2019 Erythrocyte distribution width (RBC) [Ratio] 13.9 % 11.5 - 14.5 % [place] Comment on above: Test Performed by [employer] [facility], [address] [place] [address] Hematocrit (Bld) [Volume fraction] 23.3 % Low 40 - 52 % [place] Comment on above: Test Performed by [employer] [facility], [address] [place] [address] Hemoglobin (Bld) [Mass/Vol] 7.9 g/dL Low 13 - 18 g/dL [place] Comment on above: Test Performed by [employer] [facility], [address] [place] [place] [address] REPEATED Interpretation and review of laboratory results Abnormal [place] MCH (RBC) [Entitic mass] 32.5 pg 26 - 34 pg [place] Comment on above: Test Performed by [facility], [facility] [place] [address] MCHC (RBC) [Mass/Vol] 34.0 % 32 - 36 % [place] Comment on above: Test Performed by [facility], [facility] [place] [address] MCV (RBC) [Entitic vol] 95.6 fL 80 - 98 fL [place] Comment on above: Test Performed by [facility], [facility] [place] [address] Platelet mean volume (Bld) [Entitic vol] 7.4 fL 7.4 - 10.4 fL [place] Comment on above: Test Performed by [facility], [address] [place] [address] Platelets (Bld) [#/Vol] 105 10*3/uL Low 140 - 440 10*3/uL [place] Comment on above: Test Performed by [facility], [address] [place] [address] RBC (Bld) [#/Vol] 2.43 10*6/uL Low 4.4 - 5.9 10*6/uL [place] Comment on above: Test Performed by [facility], [address] [place] [address] WBC (Bld) [#/Vol] 12.0 10*3/uL High 3.6 - 10.7 10*3/uL [place] Test Performed by [facility], [address] [place] [address] [place] CR Chest Portableon 12-15-19 20 CR Chest Portable Patient Name: DOUGLAS SIMON Jr Diagnostic Radiology Exam Date/Time 12/15/2019 13:23:36 EDT Exam CR Chest Portable Ordering Physician COLTON MARROQUIN Accession Number [id number] CPT4 Codes 64714 () Reason For Exam ETT placement Report CHEST: CLINICAL INDICATION: Postop. ET tube placement TECHNIQUE: AP portable chest COMPARISON: 12/12/2019 FINDINGS: The tip of endotracheal tube terminates in the mid trachea. A right IJ [place]-Iza catheter terminates at the level of the [...] L Transcribed Date and Time: 12/15/2019 1:22 Normal [facility] Calcium, Ionizedon 0 Ionized Ca 4.70 mg/dL 4.3 - 5.2 mg/dL [place] pH (Bld) 7.41 [pH] [place] Comment on above: Test Performed by [address] [address] Test Performed by [id number] [place] [address] Calcium,Ionizedon 12-15-2019 pH, Ionized Calcium 7.41 Normal 7.31-7.46 [facility] Comment on above: Performed By: #### I CA, ABG ####[address] [place] [address] Ionized Ca,Measured 4.70 mg/dL Normal 4.30-5.20 [facility] Comment on above: Performed By: #### I CA, ABG ####[address] [place] [address] ECHO Transesophagealon 12-14 Robin, [facility] Incoming Cardiology Results From [facility] - 12/15/2019 3:13 PM EDT TRANSESOPHAGEAL ECHOCARDIOGRAM Intraoperative-Pre Pump Only PATIENT: Douglas Callaway STUDY DATE: 12/15/2019 : 1955 AGE: 64 HT/WT: 172.7 cm (68 77.3 kg (170.1 in) lb) GENDER: M BP: 127 / 75 LOCATION: [facility] PATIENT Inpatient main STATUS: *ORDERING PHYSICIAN: * Colton Marroquin MD *READING PHYSICIAN: * Dee, ReedSTORE DETECTIVE: * Lissa Page RDCS, Lucho AE, CCT, RCS INDICATIONS: CABG. CONCLUSIONS SUMMARY: [...] by Lamar Price 12/15/2019 15:13 Prior Signatures: [facility]- [place], [place] TRANSESOPHAGEAL ECHOCARDIOGRAM Intraoperative-Pre Pump Only PATIENT: Douglas Callaway STUDY DATE: 12/15/2019 : 1955 AGE: 64 HT/WT: 172.7 cm (68 77.3 kg (170.1 in) lb) GENDER: M BP: 127 / 75 LOCATION: [facility] PATIENT Inpatient main STATUS: *ORDERING PHYSICIAN: * Colton Marroquin MD *READING PHYSICIAN: * Dee, *STORE DETECTIVE: * Lissa Page [facility], Lamar GRUBER, CCT, AURELIO INDICATIONS: CABG. CONCLUSIONS [...] by Lamar Price 12/15/2019 15:13 Prior Signatures[facility] [place] [facility] 2D/3D [place] w/wo Contrast on 12-15-2019 Echo 2D/3D [place]FR[place] w/wo Contrast Patient Name: DOUGLAS CALLAWAY Jr Ultrasound Exam Date/Time 12/15/2019 08:13:10 EDT Exam Echo 2D/3D ALFR[place]O w/wo Contrast Ordering Physician COLTON MARROQUIN Accession Number [id number] Reason For Exam CABG Report TRANSESOPHAGEAL ECHOCARDIOGRAM Intraoperative-Pre Pump Only PATIENT: Douglas Callaway STUDY DATE: 12/15/2019 : 1955 AGE: 64 HT/WT: 172.7 cm (68 77.3 kg (170.1 in) lb) GENDER: M BP: 127 / 75 LOCATION: [facility] PATIENT Inpatient main STATUS: *ORDERING PHYSICIAN: * Colton Marroquin MD *READING PHYSICIAN: * Dee, *STORE DETECTIVE: * Lamar Castro RDCS, AE, CCT, AURELIO INDICATIONS: CABG. CONCLUSIONS SUMMARY: 1. [...] pm Signed by: MD PRICE WISSAM Normal [facility] Glucose,Bedsideon 12-15-2019 Glucose [Mass/Vol] 166 mg/dL High 70-100 [facility] Comment on above: Result Comment: Test performed by glucose meter. Results may be 10%-15% lower than serum/plasma values. (CLIA ID [id number]) Performed By: #### H EMOG, HA1C2, PT, BMP3, LFT3 #### [facility] [employer] [address] [address] Glucose [Mass/Vol] 214 mg/dL High 70-100 [facility] Comment on above: Result Comment: Test performed by glucose meter. Results may be 10%-15% lower than serum/plasma values. (CLIA ID [id number]) Performed By: #### H EMOG, HA1C2, PT, BMP3, LFT3 #### [employer] [address] [place] [address] Glucose [Mass/Vol] 195 mg/dL High 70-100 [facility] Comment on above: Result Comment: Test performed by glucose meter. Results may be 10%-15% lower than serum/plasma values. (CLIA ID [id number]) Performed By: #### H EMOG, HA1C2, PT, BMP3, LFT3 #### [employer] [facility] [address] [place] [address] Glucose [Mass/Vol] 186 mg/dL High 70-100 [facility] Comment on above: Result Comment: Test performed by glucose meter. Results may be 10%-15% lower than serum/plasma values. (CLIA ID [id number]) Performed By: #### H EMOG, HA1C2, PT, BMP3, LFT3 #### [employer] [facility] [address] [place] [address] Glucose [Mass/Vol] 175 mg/dL High 70-[address] [place] [address] Comment on above: Result Comment: Test performed by glucose meter. Results may be 10%-15% lower than serum/plasma values. (CLIA ID [id number]) Performed By: #### H EMOG, HA1C2, PT, BMP3, LFT3 #### [employer] [facility] [address] [place] [address] Glucose [Mass/Vol] 223 mg/dL High 70-[address] [place] [address] Comment on above: Result Comment: Test performed by glucose meter. Results may be 10%-15% lower than serum/plasma values. (CLIA ID [id number]) Performed By: #### H EMOG, HA1C2, PT, BMP3, LFT3 #### [employer] [facility] [address] [place] [address] Glucose [Mass/Vol] 243 mg/dL High 70-100 [facility] Comment on above: Result Comment: Test performed by glucose meter. Results may be 10%-15% lower than serum/plasma values. (CLIA ID [id number]) Performed By: #### H EMOG, HA1C2, PT, BMP3, LFT3 #### [employer] [facility] [address] [place] [address] Glucose [Mass/Vol] 195 mg/dL High 70-100 [facility] Comment on above: Result Comment: Test performed by glucose meter. Results may be 10%-15% lower than serum/plasma values. (CLIA ID [id number]) Performed By: #### H EMOG, HA1C2, PT, BMP3, LFT3 #### [employer] [facility] [address] [place] [address] Glucose [Mass/Vol] 87 mg/dL Normal 70-100 [facility] Comment on above: Result Comment: Test performed by glucose meter. Results may be 10%-15% lower than serum/plasma values. (CLIA ID [id number]) Performed By: #### B GLU ####[facility] [employer] [address] [place] [address] Glucose [Mass/Vol] 86 mg/dL Normal 70-100 [facility] Comment on above: Result Comment: Test performed by glucose meter. Results may be 10%-15% lower than serum/plasma values. (CLIA ID [id number]) Performed By: #### B GLU ####[facility] [employer] [address] [place] [address] Glucose [Mass/Vol] 183 mg/dL High 70-100 [facility] Comment on above: Result Comment: Test performed by glucose meter. Results may be 10%-15% lower than serum/plasma values. (CLIA ID [id number]) Performed By: #### B GLU #### [facility] [employer] [facility] [address] [place] [address] Hemogramon 12-15-2019 Erythrocyte distribution width (RBC) [Ratio] 13.9 % Normal 11.5-14.5 [facility] Comment on above: Performed By: #### H EMOG, PT/AP, BMP3, MG3, PHOS3 ####[address] [place], [place] Hematocrit (Bld) [Volume fraction] 23.3 % Low 40.0-52.0 [facility] Comment on above: Performed By: #### H EMOG, PT/AP, BMP3, MG3, PHOS3 ####[address] [place], [place] Hemoglobin (Bld) [Mass/Vol] 7.9 g/dL Low 13.0-18.0 [facility] Comment on above: Result Comment: REPE ATED Performed By: #### H EMOG, PT/AP, BMP3, MG3, PHOS3 ####[address] [place], [place] MCH (RBC) [Entitic mass] 32.5 pg Normal 26.0-34.0 [facility] Comment on above: Performed By: #### H EMOG, PT/AP, BMP3, MG3, PHOS3 ####[address] MCHC (RBC) [Mass/Vol] 34.0 % Normal 32.0-36.0 [facility] Comment on above: Performed By: #### H EMOG, PT/AP, BMP3, MG3, PHOS3 ####[address] [place], [place] MCV (RBC) [Entitic vol] 95.6 fL Normal 80.0-98.0 [facility] Comment on above: Performed By: #### H EMOG, PT/AP, BMP3, MG3, PHOS3 ####[address] [place], [place] Platelet mean volume (Bld) [Entitic vol] 7.4 fL Normal 7.4-10.4 [facility] Comment on above: Performed By: #### H EMOG, PT/AP, BMP3, MG3, PHOS3 ####[address] [place], [place] Platelets (Bld) [#/Vol] 105 10*3/uL Low 140-440 [facility] Comment on above: Performed By: #### H EMOG, PT/AP, BMP3, MG3, PHOS3 ####[address] [place], [place] RBC (Bld) [#/Vol] 2.43 10*6/uL Low 4.40-5.90 [facility] Comment on above: Performed By: #### H EMOG, PT/AP, BMP3, MG3, PHOS3 ####[address] [place], [place] WBC (Bld) [#/Vol] 12.0 10*3/uL High 3.6-10.7 [facility] Comment on above: Performed By: #### H EMOG, PT/AP, BMP3, MG3, PHOS3 ####[address] [place], [place] Magnesiumon 12-15-2019 Magnesium [Mass/Vol] 3.9 mg/dL High 1.6-2.3 [facility] Comment on above: Performed By: #### H EMOG, PT/AP, BMP3, MG3, PHOS3 ####[address] [place], [place] Magnesium [Mass/Vol] 3.9 mg/dL High 1.6 - 2.3 mg/dL [place], [place] Otheron 12-15-2019 Interpretation and review of laboratory results Abnormal [place] Test Performed by [facility], [address] [place] [address] [place] PATHOGEN REDUCED LR PPHRon 0 12-15-2019 PATHOGEN REDUCED LR PPHR PATHOGEN REDUCED LR PPHR: [id number] transfused 12/15/19 13:44 MSS1 Unit Blood Type: O Unit Blood Rh: POS Blood Product Code: PR2 Unit Number: [id number] Unit Status: transfused Barcoded Unit Number: =[id number] Barcoded Product Code: = Barcoded ABO/Rh: =%5100 Unit Expiration: Unit Volume Transfused: 300 Unit Transfusion Start Date/Time: [id number] Normal [facility] Comment on above: Performed By: #### H EMOG, HA1C2, PT, BMP3, LFT3 #### [facility] [address] [place] [address] POCT Glucoseon 12-15-2019 Glucose [Mass/Vol] 109 mg/dL High 70 - 100 mg/dL [facility] [place] Comment on above: Test performed by gl ucose meter. Results may be 10%-15% lower than serum/plasma values. (CLIA ID [id number]) Interpretation and review of laboratory results Abnormal [facility] Test Performed by [facility], [facility] [place] [address] [facility] Glucose [Mass/Vol] 109 mg/dL High 70 - 100 mg/dL [facility] [place] Comment on above: Test performed by gl ucose meter. Results may be 10%-15% lower than serum/plasma values. (CLIA ID [id number]) Interpretation and review of laboratory results Abnormal [facility] Test Performed by [facility], [address] [place] [address] [facility] [place] Glucose [Mass/Vol] 113 mg/dL High 70 - 100 mg/dL [facility] Comment on above: Test performed by gl ucose meter. Results may be 10%-15% lower than serum/plasma values. (CLIA ID [id number]) Interpretation and review of laboratory results Abnormal [facility] Test Performed by [facility], [address] [place] [address] [facility] Glucose [Mass/Vol] 166 mg/dL High 70 - 100 mg/dL [facility] Comment on above: Test performed by gl ucose meter. Results may be 10%-15% lower than serum/plasma values. (CLIA ID [id number]) Interpretation and review of laboratory results Abnormal [facility] Test Performed by [facility], [address] [place] [address] [facility] [place] Glucose [Mass/Vol] 214 mg/dL High 70 - 100 mg/dL [facility] Comment on above: Test performed by gl ucose meter. Results may be 10%-15% lower than serum/plasma values. (CLIA ID [id number]) Interpretation and review of laboratory results Abnormal [facility] Test Performed by [facility], [address] [place] [address] [facility] Glucose [Mass/Vol] 195 mg/dL High 70 - 100 mg/dL [facility] Comment on above: Test performed by gl ucose meter. Results may be 10%-15% lower than serum/plasma values. (CLIA ID [id number]) Interpretation and review of laboratory results Abnormal [facility] Test Performed by [facility], [address] [place] [address] [facility] Glucose [Mass/Vol] 186 mg/dL High 70 - 100 mg/dL [facility] Comment on above: Test performed by gl ucose meter. Results may be 10%-15% lower than serum/plasma values. (CLIA ID [id number]) Interpretation and review of laboratory results Abnormal [facility] Test Performed by [facility], [address] [place] [address] [facility] Glucose [Mass/Vol] 175 mg/dL High 70 - 100 mg/dL [facility] [place] Comment on above: Test performed by gl ucose meter. Results may be 10%-15% lower than serum/plasma values. (CLIA ID [id number]) Interpretation and review of laboratory results Abnormal [facility] Test Performed by [facility], [address] [place] [address] [facility] Glucose [Mass/Vol] 223 mg/dL High 70 - 100 mg/dL [facility] Comment on above: Test performed by gl ucose meter. Results may be 10%-15% lower than serum/plasma values. (CLIA ID [id number]) Interpretation and review of laboratory results Abnormal [facility] [place] Test Performed by [facility], [address] [place] [address] [facility] Glucose [Mass/Vol] 243 mg/dL High 70 - 100 mg/dL [facility] [place] Comment on above: Test performed by gl ucose meter. Results may be 10%-15% lower than serum/plasma values. (CLIA ID [id number]) Interpretation and review of laboratory results Abnormal [facility] [place] Test Performed by [facility], [address] [place] [address] [facility] Glucose [Mass/Vol] 195 mg/dL High 70 - 100 mg/dL [facility] [place] Comment on above: Test performed by gl ucose meter. Results may be 10%-15% lower than serum/plasma values. (CLIA ID [id number]) Interpretation and review of laboratory results Abnormal [facility] [place] Test Performed by [facility], [address] [place] [address] [facility] Glucose [Mass/Vol] 87 mg/dL 70 - 100 mg/dL [facility] [place] Comment on above: Test performed by gl ucose meter. Results may be 10%-15% lower than serum/plasma values. (CLIA ID [id number]) Test Performed by [facility], [address] [facility] [place] [address] [facility] Glucose [Mass/Vol] 86 mg/dL 70 - 100 mg/dL [facility] [place] Comment on above: Test performed by gl ucose meter. Results may be 10%-15% lower than serum/plasma values. (CLIA ID [id number]) Test Performed by [facility], [address] [place] [address] [facility] Glucose [Mass/Vol] 183 mg/dL High 70 - 100 mg/dL [facility] Comment on above: Test performed by gl ucose meter. Results may be 10%-15% lower than serum/plasma values. (CLIA ID [id number]) Interpretation and review of laboratory results Abnormal [facility] Test Performed by [facility], [address] [place] [address] [facility] [place] PREPARE PLATELETS, 2 Product on 12-15-2019 ABO and Rh group Nom (Bld) 7300 [place], [place] Blood product unit ID (Dose) [#] [id number] [place] Sodium [Moles/Vol] [id number] [place] Sodium [Moles/Vol] [id number] mmol/L [place] Sodium [Moles/Vol] transfused [place], [place] Pathogen Reduced Lekuoreduce d Platelet Pheresison 12-15-2019 ABO and Rh group Nom (Bld) 5100 [place], [place] Blood product unit ID (Dose) [#] [id number] [place] Sodium [Moles/Vol] [id number] mmol/L [place] Sodium [Moles/Vol] [id number] [place] Sodium [Moles/Vol] transfused [place] Pheresis Leuko Reducedon Pheresis Leuko Reduced Pheresis Leuko Reduced: [id number] transfused 12/15/19 12:59 MSS1 Unit Blood Type: B Unit Blood Rh: POS Blood Product Code: PA2 Unit Number: [id number] Unit Status: transfused Barcoded Unit Number: =[id number] Barcoded Product Code: = Barcoded ABO/Rh: =%7300 Unit Expiration: Unit Volume Transfused: 300 Unit Transfusion Start Date/Time: Normal [facility] Comment on above: Performed By: #### H EMOG, HA1C2, PT, BMP3, LFT3 #### [facility] [employer] [facility] [address] [place] [address] Phosphoruson 12-15-2019 Phosphate [Mass/Vol] 2.2 mg/dL Low 2.5-4.5 [facility] Comment on above: Performed By: #### H EMOG, PT/AP, BMP3, MG3, PHOS3 ####[facility] [place] [address] Phosphate [Mass/Vol] 2.2 mg/dL Low 2.5 - 4.5 mg/dL [place] Protime AND APTTon 0 aPTT Coag (Bld) [Time] 24.8 s Normal 20.0-30.5 [facility] Comment on above: Result Comment: NOTE : The therapeutic time for Heparin anticoagulation, based on Xa activity inhibition, is an APTT of 46-80 seconds. Performed By: #### H EMOG, PT/AP, BMP3, MG3, PHOS3 ####[address] [place] [address] INR Coag (PPP) [Relative time] 1.2 High 0.9-1.1 [facility] Comment on above: Result Comment: Pasha [...] #### H EMOG, PT/AP, BMP3, MG3, PHOS3 ####[address] [place], [place] PT Coag (PPP) [Time] 12.6 s High 9.0-12.0 [facility] Comment on above: Result Comment: . Performed By: #### H EMOG, PT/AP, BMP3, MG3, PHOS3 ####[address] [place] [address] Protime/INR & PTTon 12-15-19 20 aPTT Coag (Bld) [Time] 24.8 s 20 - 30.5 s [place], [place] Comment on above: Test Performed by [facility], [address] [place] [address] NOTE: The therapeutic time for Heparin anticoagulation, based on Xa activity inhibition, is an APTT of 46-80 seconds. INR Coag (PPP) [Relative time] 1.2 {INR} High [place], [place] Comment on above: Test Performed by [facility], [address] [place] [address] Recommended Anticoagulant Therapy: SEE BELOW ----- INR [...] Infarction PT Coag (PPP) [Time] 12.[address] [facility] 9 - 12 s [place], [place] Comment on above: . XR CHEST PORTABLEon 12-15-19 Patient Name: DOUGLAS SIMON Jr ---Diagnostic Radiology--- Exam Date/Time 12/15/2019 13:23:36 EDT Exam CR Chest Portable Ordering Physician COLTON MARROQUIN Accession Number [id number] CPT4 Codes 44661 () Reason For Exam ETT placement Report CHEST: CLINICAL INDICATION: Postop. ET tube placement TECHNIQUE: AP portable chest COMPARISON: 12/12/2019 FINDINGS: The tip of endotracheal tube terminates in the mid trachea. A right IJ [place]-Iza catheter terminates at the level of the [...] L Transcribed Date and Time: 12/15/2019 1:22 [place], [place] [facility], [facility] Incoming Radiology Results From [facility] - 12/15/2019 1:25 PM EDT Patient Name: DOUGLAS CALLAWAY Jr ---Diagnostic Radiology--- Exam Date/Time 12/15/2019 13:23:36 EDT Exam CR Chest Portable Ordering Physician COLTON MARROQUIN Accession Number [id number] CPT4 Codes 55860 () Reason For Exam ETT placement Report CHEST: CLINICAL INDICATION: Postop. ET tube placement TECHNIQUE: AP portable chest COMPARISON: 12/12/2019 FINDINGS: The tip of endotracheal tube terminates in the mid trachea. A right IJ [place]-Iza catheter terminates at the level of the [...] L Transcribed Date and Time: 12/15/2019 1:22 [place], [place] Basic Metabolic Panelon 04-0 Calcium [Mass/Vol] 10.4 mg/dL Normal 8.4-10.4 [facility] Comment on above: Performed By: #### H EMOG, HA1C2, PT, BMP3, LFT3 #### [facility] [address] [place] [address] Glucose [Mass/Vol] 154 mg/dL High 70-100 [facility] Comment on above: Performed By: #### H EMOG, HA1C2, PT, BMP3, LFT3 #### [facility] [address] [place] [address] Anion gap [Moles/Vol] 16 Normal [facility] Comment on above: Performed By: #### H EMOG, HA1C2, PT, BMP3, LFT3 #### [facility] [address] [place], [place] CO2 [Moles/Vol] 27 mmol/L Normal 22-30 [facility] Comment on above: Performed By: #### H EMOG, HA1C2, PT, BMP3, LFT3 #### [facility] [address] [place], [place] Creatinine [Mass/Vol] 1.33 mg/dL High 0.52-1.25 [facility] Comment on above: Performed By: #### H EMOG, HA1C2, PT, BMP3, LFT3 #### [address] [place], [place] GFR/1.73 sq M predicted among blacks MDRD (S/P/Bld) [Vol rate/Area] mL/min/{1.73_m2} Normal >60 [facility] Comment on above: Performed By: #### H EMOG, HA1C2, PT, BMP3, LFT3 #### [address] [place], [place] GFR/1.73 sq M predicted among non-blacks MDRD (S/P/Bld) [Vol rate/Area] 53.8 mL/min/{1.73_m2} Normal >60 [facility] Comment on above: Result Comment: Sour ce- MDRD equation with creatinine calibration to IDMS(NKDEP) eGFR not recommended for drug dose adjustment Performed By: #### H EMOG, HA1C2, PT, BMP3, LFT3 #### [address] [place], [place] Urea nitrogen [Mass/Vol] 24 mg/dL High 7-20 [facility] Comment on above: Performed By: #### H EMOG, HA1C2, PT, BMP3, LFT3 #### [address] Chloride [Moles/Vol] 101 mmol/L Normal 98-107 [facility] Comment on above: Performed By: #### H EMOG, HA1C2, PT, BMP3, LFT3 #### [address] [place] [address] Potassium [Moles/Vol] 4.6 mmol/L Normal 3.5-5.1 [facility] Comment on above: Performed By: #### H EMOG, HA1C2, PT, BMP3, LFT3 #### [facility] [address] [place] [address] Sodium [Moles/Vol] 144 mmol/L Normal 135-145 [facility] Comment on above: Performed By: #### H EMOG, HA1C2, PT, BMP3, LFT3 #### [facility] [address] [place] [address] Anion gap [Moles/Vol] 16 mmol/L [place], [place] Comment on above: Test Performed by [facility], [address] [place] [address] Calcium [Mass/Vol] 10.4 mg/dL 8.4 - 10. 4 mg/dL [place] Comment on above: Test Performed by [facility], [address] [place] [address] Chloride [Moles/Vol] 101 mmol/L 98 - 107 mmol/L [place] Comment on above: Test Performed by [facility], [address] [place] [address] CO2 [Moles/Vol] 27 mmol/L 22 - 30 mmol/L [place] Comment on above: Test Performed by [facility], [address] [place] [address] Creatinine [Mass/Vol] 1.33 mg/dL High 0.52 - 1.25 mg/dL [place] Comment on above: Test Performed by [facility], [address] [place] [address] EGFR IF NonAfrican Trinidadian 53.8 mL/min >60 [place] Comment on above: Test Performed by [facility], [address] [place] [address] Source- MDRD equation with creatinine calibration to IDMS(NKDEP) eGFR not recommended for drug dose adjustment GFR/1.73 sq M predicted among blacks MDRD (S/P/Bld) [Vol rate/Area] mL/min/{1.73_m2} >60 mL/min [place] Comment on above: Test Performed by [facility], [facility] [place] [address] Glucose [Mass/Vol] 154 mg/dL High 70 - 100 mg/dL [place] Comment on above: Test Performed by [facility], [facility] [place] [address] Potassium [Moles/Vol] 4.6 mmol/L 3.5 - 5.1 mmol/L [place] Comment on above: Test Performed by [facility], [facility] [place] [address] Sodium [Moles/Vol] 144 mmol/L 135 - 145 mmol/L [place] Urea nitrogen [Mass/Vol] 24 mg/dL High 7 - 20 mg/dL [place] Comment on above: Test Performed by [facility], [facility] [place] [address] CBCon 12-12-2019 Erythrocyte distribution width (RBC) [Ratio] 13.5 % 11.5 - 14.5 % [place] Comment on above: Test Performed by [facility], [address] [place] [address] Hematocrit (Bld) [Volume fraction] 45.4 % 40 - 52 % [place] Comment on above: Test Performed by [facility], [facility] [place] [address] Hemoglobin (Bld) [Mass/Vol] 14.8 g/dL 13 - 18 g/dL [place] Comment on above: Test Performed by [facility], [facility] [place] [address] Interpretation and review of laboratory results Abnormal [place] MCH (RBC) [Entitic mass] 32.0 pg 26 - 34 pg [place] Comment on above: Test Performed by [facility], [facility] [place] [address] MCHC (RBC) [Mass/Vol] 32.6 % 32 - 36 % [place] Comment on above: Test Performed by [facility], [facility] [place] [address] MCV (RBC) [Entitic vol] 98.1 fL High 80 - 98 fL [place] Comment on above: Test Performed by [facility], [address] [facility] [place] [address] Platelet mean volume (Bld) [Entitic vol] 8.9 fL 7.4 - 10.4 fL [place] Comment on above: Test Performed by [facility], [address] [place] [address] Platelets (Bld) [#/Vol] 263 10*3/uL 140 - 440 10*3/uL [place] Comment on above: Test Performed by [facility], [address] [place] [address] RBC (Bld) [#/Vol] 4.62 10*6/uL 4.4 - 5.9 10*6/uL [place] Comment on above: Test Performed by [facility], [address] [place] [address] WBC (Bld) [#/Vol] 11.5 10*3/uL High 3.6 - 10.7 10*3/uL [place] Test Performed by [facility], [address] [place] [address] [place] CR Chest PA/LATon 12-12-2019 CR Chest PA/LAT Patient Name: DOUGLAS SIMON Jr Diagnostic Radiology Exam Date/Time 12/12/2019 13:17:02 EDT Exam CR Chest PA/LAT Ordering Physician DOMINIQUE CARROLL, ALICIA Adams Accession Number [id number] CPT4 Codes 27598 () Reason For Exam preop evaluation Report [...] Transcribed Date and Time: 12/12/2019 1:35 Normal [facility] Hemoglobin A1Con 12-12-2019 HbA1c (Bld) [Mass fraction] 154 mg/dL Normal [facility] Comment on above: Performed By: #### H EMOG, HA1C2, PT, BMP3, LFT3 #### [address] [address] HbA1c (Bld) [Mass fraction] 7.0 % High 4.0-5.7 [facility] Comment on above: Result Comment: --Hg bA1C levels may not be accurate in patients who have renal disease, received recent blood transfusions, are anemic, or who have dyshemoglobinemia. Performed By: #### H EMOG, HA1C2, PT, BMP3, LFT3 #### [address] [address] eAG 154 mg/dL [place], [place] Comment on above: Test Performed by [facility], [address] [place] [address] HbA1c (Bld) [Mass fraction] 7.0 % High 4 - 5.7 % [place] Comment on above: --HgbA1C levels may not be accurate in patients who have renal disease, received recent blood transfusions, are anemic, or who have dyshemoglobinemia. Interpretation and review of laboratory results Abnormal [place], [place] Hemogramon 12-12-2019 Erythrocyte distribution width (RBC) [Ratio] 13.5 % Normal 11.5-14.5 [facility] Comment on above: Performed By: #### H EMOG, HA1C2, PT, BMP3, LFT3 #### [address] [place] [place], [place] Hematocrit (Bld) [Volume fraction] 45.4 % Normal 40.0-52.0 [facility] Comment on above: Performed By: #### H EMOG, HA1C2, PT, BMP3, LFT3 #### [address] Hemoglobin (Bld) [Mass/Vol] 14.8 g/dL Normal 13.0-18.0 [facility] Comment on above: Performed By: #### H EMOG, HA1C2, PT, BMP3, LFT3 #### [address] MCH (RBC) [Entitic mass] 32.0 pg Normal 26.0-34.0 [facility] Comment on above: Performed By: #### H EMOG, HA1C2, PT, BMP3, LFT3 #### [address] MCHC (RBC) [Mass/Vol] 32.6 % Normal 32.0-36.0 [facility] Comment on above: Performed By: #### H EMOG, HA1C2, PT, BMP3, LFT3 #### [address] MCV (RBC) [Entitic vol] 98.1 fL High 80.0-98.0 [facility] Comment on above: Performed By: #### H EMOG, HA1C2, PT, BMP3, LFT3 #### [address] Platelet mean volume (Bld) [Entitic vol] 8.9 fL Normal 7.4-10.4 [facility] Comment on above: Performed By: #### H EMOG, HA1C2, PT, BMP3, LFT3 #### [address] Platelets (Bld) [#/Vol] 263 10*3/uL Normal 140-440 [facility] Comment on above: Performed By: #### H EMOG, HA1C2, PT, BMP3, LFT3 #### [address] [place] RBC (Bld) [#/Vol] 4.62 10*6/uL Normal 4.40-5.90 [facility] Comment on above: Performed By: #### H EMOG, HA1C2, PT, BMP3, LFT3 #### [address] [place], [place] WBC (Bld) [#/Vol] 11.5 10*3/uL High 3.6-10.7 [facility] Comment on above: Performed By: #### H EMOG, HA1C2, PT, BMP3, LFT3 #### [address] [place] Hepatic Functionon 0 ALP [Catalytic activity/Vol] 168 U/L High 38-126 [facility] Comment on above: Performed By: #### H EMOG, HA1C2, PT, BMP3, LFT3 #### [address] [place], [place] ALT [Catalytic activity/Vol] 23 U/L Normal 0-49 [facility] Comment on above: Result Comment: The ALT test is performed by an updated assay method. Please note that the reference intervals have been changed and are now sex specific. Performed By: #### H EMOG, HA1C2, PT, BMP3, LFT3 #### [address] [place], [place] AST [Catalytic activity/Vol] 33 U/L Normal 15-46 [facility] Comment on above: Performed By: #### H EMOG, HA1C2, PT, BMP3, LFT3 #### [address] Bilirubin [Mass/Vol] 0.7 mg/dL Normal 0.2-1.3 [facility] Comment on above: Performed By: #### H EMOG, HA1C2, PT, BMP3, LFT3 #### [address] [place], [place] Bilirubin.direct [Mass/Vol] 0.0 mg/dL Normal 0.0-0.3 [facility] Comment on above: Performed By: #### H EMOG, HA1C2, PT, BMP3, LFT3 #### [facility] [address] [place] [address] Protein [Mass/Vol] 8.1 g/dL Normal 6.3-8.2 [facility] Comment on above: Performed By: #### H EMOG, HA1C2, PT, BMP3, LFT3 #### [facility] [address] [place] [address] Albumin [Mass/Vol] 4.8 g/dL Normal 3.5-5.0 [facility] Comment on above: Performed By: #### H EMOG, HA1C2, PT, BMP3, LFT3 #### [facility] [address] [place] [address] Hepatic Function Panelon Albumin [Mass/Vol] 4.8 g/dL 3.5 - 5 g/dL [place] ALP [Catalytic activity/Vol] 168 U/L High 38 - 126 U/L [place] Comment on above: Test Performed by [facility], [address] [place] [address] ALT [Catalytic activity/Vol] 23 U/L 0 - 49 U/L [place] Comment on above: Test Performed by [facility], [address] [place] [address] The ALT test is performed by an updated assay method. Please note that the reference intervals have been changed and are now sex specific. AST [Catalytic activity/Vol] 33 U/L 15 - 46 U/L [place] Comment on above: Test Performed by [facility], [address] [place] [address] Bilirubin Ql (U) 0.7 mg/dL 0.2 - 1.3 mg/dL [place] Comment on above: Test Performed by [facility], [facility] [place] [address] Bilirubin.direct [Mass/Vol] 0.0 mg/dL 0 - 0.3 mg/dL [place] Comment on above: Test Performed by [facility], [facility] [place] [address] Protein [Mass/Vol] 8.1 g/dL 6.3 - 8.2 g/dL [place] Comment on above: Test Performed by [facility], [address] [place] [place] [address] Otheron 12-12-2019 Interpretation and review of laboratory results Abnormal [place] Test Performed by [facility], [facility] [address], [place] [address] [place] Test Performed by [facility], [facility] [address] [place] [place] [id number] [place] [address] Prothrombin Timeon 0 INR Coag (PPP) [Relative time] 0.9 Normal 0.9-1.1 [facility] Comment on above: Result Comment: Pasha [...] H EMOG, HA1C2, PT, BMP3, LFT3 #### [address] [place] [address] PT Coag (PPP) [Time] 10.1 s Normal 9.0-12.0 [facility] Comment on above: Result Comment: . Performed By: #### H EMOG, HA1C2, PT, BMP3, LFT3 #### [address] [place] [address] Protime-INRon 12-12-2019 INR Coag (PPP) [Relative time] 0.9 {INR} [place] Comment on above: Test Performed by [facility], [facility] [facility] [place] [address] Recommended Anticoagulant Therapy: SEE BELOW ----- INR [...] [Time] 10.1 s 9 - 12 s [place] Comment on above: . TS GELon 12-12-2019 TS GEL ABO Group: O Rh, Gel: POS Antibody Screen Gel: NEG Normal [facility] Comment on above: Performed By: #### T SGL #### [id number] [place] [address] #### LRC #### [address] [address] [place] [address] TYPE AND SCREENon 12-12-2019 Sodium [Moles/Vol] O [place], [place] Sodium [Moles/Vol] Positive [place] Comment on above: Test Performed by [facility], [address] [place] [address] Sodium [Moles/Vol] Negative [place] Comment on above: Test Performed by [address] [address] Test Performed by [id number] [place] [address] VL Carotid Duplex Ultrasound Completeon 12-12-2019 VL Carotid Duplex Ultrasound Complete Patient Name: DOUGLAS CALLAWAY Jr Ultrasound Exam Date/Time 12/12/2019 12:57:04 EDT Exam VL Carotid Duplex Ultrasound Complete Ordering Physician COLTON MARROQUIN Accession Number [id number] CPT4 Codes 20906 () Reason For Exam Dizziness/pre-op CABG Report [facility] Carotid Duplex Report Ordering Physician: Colton Marroquin MD Refining Still Operator: Coco Servin T Interpreting Physician: Iván Pineda MD Location: [address] Indications: Dizziness. Pt is pre-op for [...] supine position. Images were obtained using a [employer] E9 vascular ultrasound machine. Findings Carotid/vertebral arteries: [...] 12/12/2019 3:24 pm Signed by: IVÁN PINEDA [facility] VL DUP CAROTID BILATERALon 0 12-12-2019 [facility] Carotid Duplex Report Ordering Physician: Colton aMrroquin MD Refining Still Operator: Coco Servin T Interpreting Physician: Iván Pineda MD Location: [address] [address] [address] Indications: Dizziness. Pt is pre-op for CABG. [...] supine position. Images were obtained using a [employer] E9 vascular ultrasound machine. Findings Carotid/vertebral arteries: [...] signed by Iván Pineda MD 12/12/2019 15:24 [facility] [place], [place] Robin, [facility] Cardiology Results From [facility] - 12/12/2019 3:24 PM EDT [facility] Carotid Duplex Report Ordering Physician: Colton Marroquin MD Refining Still Operator: Coco Servin T Interpreting Physician: Iván Pineda MD Location: [address] Indications: Dizziness. Pt is pre-op for [...] supine position. Images were obtained using a [employer] E9 vascular ultrasound machine. Findings Carotid/vertebral arteries: [...] signed by Iván Pineda MD 12/12/2019 15:24 [place] XR CHEST STANDARD (2 VW)on 0 12-12-2019 [facility] From [facility] - 12/12/2019 1:43 PM EDT Patient Name: DOUGLAS CALLAWAY Jr ---Diagnostic Radiology--- Exam Date/Time 12/12/2019 13:17:02 EDT Exam CR Chest PA/LAT Ordering Physician DOMINIQUE CARROLL, ALICIA Adams Accession Number [id number] CPT4 Codes 27920 () Reason For Exam preop evaluation Report [...] AHMAD Transcribed Date and Time: 12/12/2019 1:35 [place] Patient Name: DOUGLAS SIMON Jr ---Diagnostic Radiology--- Exam Date/Time 12/12/2019 13:17:02 EDT Exam CR Chest PA/LAT Ordering Physician DOMINIQUE CARROLL, ALICIA Bryan Accession Number [id number] CPT4 Codes 53600 () Reason For Exam preop evaluation Report [...] AHMAD Transcribed Date and Time: 12/12/2019 1:35 [place] Vital Signs Date Time Vital Sign Value Performing Clinician Facility 02-21-2025 10:00-0400 Heart rate 72 /min Iban Ramirez MD Work Phone: [facility] 02-21-2025 10:00-0400 Respiratory rate 21 /min Iban Ramirez MD Work Phone: [facility] 02-21-2025 10:00-0400 SaO2% (BldA) [Mass fraction] 93 % Iban Ramirez MD Work Phone: [facility] 02-21-2025 08:00-0400 Diastolic blood pressure 80 mm[Hg] Iban Ramirez MD Work Phone: [facility] 02-21-2025 08:00-0400 Systolic blood pressure 162 mm[Hg] Iban Ramirez MD Work Phone: [facility] 02-21-2025 07:48-0400 Body temperature 97.81 [degF] Iban Ramirez MD Work Phone: [facility] 02-20-2025 15:00-0400 Body height 172.7 cm Iban Ramirez MD Work Phone: [facility] 02-20-2025 15:00-0400 Body mass index (BMI) [Ratio] 24.37 kg/m2 Iban Ramirez MD Work Phone: [facility] 02-20-2025 15:00-0400 Body weight 72.7 kg Iban Ramirez MD Work Phone: [facility] 01-17-2024 14:36-0400 Diastolic blood pressure 77 mm[Hg] Karla Camacho PA-C Work Phone: [facility] 01-17-2024 14:36-0400 Heart rate 51 /min Karla Camacho PA-C Work Phone: [facility] 01-17-2024 14:36-0400 Systolic blood pressure 145 mm[Hg] Karla Camacho PA-C Work Phone: [facility] 12-29-2023 12:34-0400 Diastolic blood pressure 57 mm[Hg] Naima Lee MD Work Phone: [facility] 12-29-2023 12:34-0400 Heart rate 54 /min Naima Lee MD Work Phone: [facility] 12-29-2023 12:34-0400 Respiratory rate 20 /min Naima Lee MD Work Phone: [facility] 12-29-2023 12:34-0400 SaO2% (BldA) [Mass fraction] 96 % Naima Lee MD Work Phone: [facility] 12-29-2023 12:34-0400 Systolic blood pressure 110 mm[Hg] Naima Lee MD Work Phone: [facility] 12-29-2023 12:15-0400 Body temperature 97.39 [degF] Naima Lee MD Work Phone: [facility] 12-29-2023 11:09-0400 Body height 172.7 cm Naima Lee MD Work Phone: [facility] 12-29-2023 11:09-0400 Body mass index (BMI) [Ratio] 24.33 kg/m2 Naima Lee MD Work Phone: [facility] 12-29-2023 11:09-0400 Body weight 72.58 kg Naima Lee MD Work Phone: [facility] 10-26-2023 16:04-0500 Body height 172.7 cm Sheryl Bassett MD Work Phone: [facility] 10-26-2023 16:04-0500 Body weight 72.7 kg Sheryl Bassett MD Work Phone: [facility] 10-26-2023 16:04-0500 Diastolic blood pressure 90 mm[Hg] Sheryl Bassett MD Work Phone: [facility] 10-26-2023 16:04-0500 Heart rate 50 /min Sheryl Bassett MD Work Phone: [facility] 10-26-2023 16:04-0500 SaO2% (BldA) [Mass fraction] 97 % Sheryl Bassett MD Work Phone: [facility] 10-26-2023 16:04-0500 Systolic blood pressure 176 mm[Hg] Sheryl Bassett MD Work Phone: [facility] 10-13-2023 13:34-0500 Body height 172.7 cm Karla Sauer PA-C Work Phone: [facility] 10-13-2023 13:34-0500 Body weight 73.03 kg Karla ABREU-C Work Phone: [facility] 10-13-2023 13:34-0500 Diastolic blood pressure 71 mm[Hg] Karla Camacho PA-C Work Phone: [facility] 10-13-2023 13:34-0500 Heart rate 73 /min Karla Camacho PA-C Work Phone: [facility] 10-13-2023 13:34-0500 Systolic blood pressure 158 mm[Hg] Karla Camacho PA-C Work Phone: [facility] 07-27-2023 14:17-0500 Body height 172.7 cm Sheryl Bassett MD Work Phone: [facility] 07-27-2023 14:17-0500 Diastolic blood pressure 45 mm[Hg] Sheryl Bassett MD Work Phone: [facility] 07-27-2023 14:17-0500 Heart rate 46 /min Sheryl Bassett MD Work Phone: [facility] 07-27-2023 14:17-0500 SaO2% (BldA) [Mass fraction] 97 % Sheryl Bassett MD Work Phone: [facility] 07-27-2023 14:17-0500 Systolic blood pressure 135 mm[Hg] Sheryl Bassett MD Work Phone: [facility] 05-13-2023 15:46-0400 Diastolic blood pressure 63 mm[Hg] Germaine Bray MD Work Phone: [facility] 05-13-2023 15:46-0400 Heart rate 61 /min Germaine Bray MD Work Phone: [facility] 05-13-2023 15:46-0400 Respiratory rate 16 /min Germaine Bray MD Work Phone: [facility] 05-13-2023 15:46-0400 SaO2% (BldA) [Mass fraction] 93 % Germaine Bray MD Work Phone: [facility] 09-07-2023 15:46-0400 Systolic blood pressure 111 mm[Hg] Germaine Bray MD Work Phone: [facility] 05-13-2023 15:32-0400 Body temperature 97.3 [degF] Germaine Bray MD Work Phone: [facility] 05-13-2023 14:18-0400 Body height 172.7 cm Germaine Bray MD Work Phone: [facility] 05-13-2023 14:18-0400 Body weight 75.3 kg Germaine Bray MD Work Phone: [facility] 04-06-2023 12:11-0400 Body height 172.7 cm Germaine Bray MD Work Phone: [facility] 04-06-2023 12:11-0400 Body weight 75.3 kg Germaine Bray MD Work Phone: [facility] 04-06-2023 12:11-0400 Diastolic blood pressure 59 mm[Hg] Germaine Bray MD Work Phone: [facility] 04-06-2023 12:11-0400 Heart rate 43 /min Germaine Bray MD Work Phone: [facility] 04-06-2023 12:11-0400 Systolic blood pressure 120 mm[Hg] Germaine Bray MD Work Phone: [facility] 07-09-2022 14:17-0400 Body height 172.[address] Iván Case Work Phone: [facility] Work Phone: 07-09-2022 14:17-0400 Body mass index (BMI) [Ratio] 25.2 kg/m2 Dr. Iván Case Work Phone: [facility] Work Phone: 07-09-2022 14:17-0400 Body weight 75.[address] Iván Case Work Phone: [facility] Work Phone: 11-03-2022 14:17-0400 Diastolic blood pressure 67 mm[Hg] Dr. Iván Case Work Phone: [facility] Work Phone: 07-09-2022 14:17-0400 Heart rate 66 /min Dr. Iván Case Work Phone: [facility] Work Phone: 07-09-2022 14:17-0400 Respiratory rate 18 /min Dr. Iván Case Work Phone: [facility] Work Phone: 07-09-2022 14:17-0400 SaO2% (BldA) [Mass fraction] 94 % Dr. Iván Case Work Phone: [facility] Work Phone: 07-09-2022 14:17-0400 Systolic blood pressure 104 mm[Hg] Dr. Iván Case Work Phone: [facility] Work Phone: 01-30-2022 21:51-0400 Diastolic blood pressure 69 mm[Hg] Dr. Iván Case Work Phone: [facility] Work Phone: 01-30-2022 21:51-0400 Heart rate 70 /min Dr. Iván Case Work Phone: [facility] Work Phone: 01-30-2022 21:51-0400 Respiratory rate 15 /min Dr. Iván Case Work Phone: [facility] Work Phone: 01-30-2022 21:51-0400 Systolic blood pressure 117 mm[Hg] Dr. Iván Case Work Phone: [facility] Work Phone: 01-30-2022 20:57-0400 Body height 172.[address] Iván Case Work Phone: [facility] Work Phone: 01-30-2022 20:57-0400 Body mass index (BMI) [Ratio] 24.3 kg/m2 Dr. Iván Case Work Phone: [facility] Work Phone: 01-30-2022 20:57-0400 Body temperature 98.1 [degF] Dr. Iván Case Work Phone: [facility] Work Phone: 01-30-2022 20:57-0400 Body weight 72.[address] Iván Case Work Phone: [facility] Work Phone: 01-30-2022 20:57-0400 SaO2% (BldA) [Mass fraction] 96 % Dr. Iván Case Work Phone: [facility] Work Phone: 01-21-2022 09:23-0400 Body temperature 98.6 [degF] Dr. Iván Case Work Phone: [facility] Work Phone: 01-21-2022 09:23-0400 Diastolic blood pressure 60 mm[Hg] Dr. Iván Case Work Phone: [facility] Work Phone: 01-21-2022 09:23-0400 Heart rate 61 /min Dr. Iván Case Work Phone: [facility] Work Phone: 01-21-2022 09:23-0400 Respiratory rate 16 /min Dr. Iván Case Work Phone: [facility] Work Phone: 01-21-2022 09:23-0400 SaO2% (BldA) [Mass fraction] 92 % Dr. Iván Case Work Phone: [facility] Work Phone: 01-21-2022 09:23-0400 Systolic blood pressure 103 mm[Hg] Dr. Iván Case Work Phone: [facility] Work Phone: 01-21-2022 07:10-0400 Body height 172.[address] Iván Case Work Phone: [facility] Work Phone: 01-21-2022 07:10-0400 Body mass index (BMI) [Ratio] 25.5 kg/m2 Dr. Iván Case Work Phone: [facility] Work Phone: 01-21-2022 07:10-0400 Body weight 76.[address] Iván Case Work Phone: [facility] Work Phone: 09-04-2021 15:00-0500 Body temperature 97.5 [degF] Dr. Iván Case Work Phone: [facility] Work Phone: 09-04-2021 15:00-0500 Diastolic blood pressure 72 mm[Hg] Dr. Iván Case Work Phone: [facility] Work Phone: 09-04-2021 15:00-0500 Heart rate 59 /min Dr. Iván Case Work Phone: [facility] Work Phone: 09-04-2021 15:00-0500 Respiratory rate 16 /min Dr. Iván Case Work Phone: [facility] Work Phone: 09-04-2021 15:00-0500 SaO2% (BldA) [Mass fraction] 96 % Dr. Iván Case Work Phone: [facility] Work Phone: 09-04-2021 15:00-0500 Systolic blood pressure 123 mm[Hg] Dr. Iván Case Work Phone: [facility] Work Phone: 09-02-2021 06:52-0500 Body height [address] Iván Case Work Phone: [facility] Work Phone: 09-02-2021 06:52-0500 Body mass index (BMI) [Ratio] 25.9 kg/m2 Dr. Iván Case Work Phone: [facility] Work Phone: 09-02-2021 06:52-0500 Body weight 77.[address] Iván Case Work Phone: [facility] Work Phone: 12-20-2019 11:13-0400 BP Diastolic 81 mm[Hg] Colton Marroquin [facility] [place] [facility] [place] 12-20-2019 11:13-0400 BP Systolic 130 mm[Hg] Colton Marroquin [facility] [place] [facility] [place] 12-20-2019 11:13-0400 Pulse (Heart Rate) 85 /min Colton Marroquin [facility] [place] [place] 12-20-2019 11:13-0400 Pulse Oximetry 99 % Colton Marroquin [facility] [place] [facility] [place] 12-20-2019 11:13-0400 Respiratory Rate 18 /min Col[facility] Mar[facility]quin [facility] [place] [place] 12-20-2019 07:00-0400 BMI (Body Mass Index) 26.02 kg/m2 Colton Marroquin [facility] [place] [place] 12-20-2019 07:00-0400 Body Temperature 97.9 [degF] Colton Marroquin [facility] [place] 12-20-2019 07:00-0400 Body weight 77.61 kg Colton Marroquin [facility] [place] [facility] [place] 12-19-2019 04:00-0400 Height 172.7 cm Colton Marroquin [facility] [place] [facility] [place] 12-13-2019 11:55-0400 BMI (Body Mass Index) 25.85 kg/m2 Colton Marroquin [facility] [place] [place] 12-13-2019 11:55-0400 Body weight 77.11 kg Colton Marroquin [facility] [place] [facility] [place] 12-13-2019 11:55-0400 Height 172.7 cm Colton Marroquin [facility] [place] [facility] [place] NEGATED: Highlighted [id number] 11:10-0400 Body height 172.72 cm Mirella Beckrest [employer] [facility] Work Phone: NEGATED: Highlighted [id number] 11:10-0400 Body height 173 cm Mirella Beckrest [employer] [facility] Work Phone: NEGATED: Highlighted [id number] 11:10-0400 Body mass index (BMI) [Ratio] 24.72 kg/m2 Mirella Beckrest [employer] [facility] Work Phone: NEGATED: Highlighted [id number] 11:10-0400 Body weight 73.48 kg Mirella Beckrest [employer] [facility] Work Phone: NEGATED: Highlighted [id number] 11:10-0400 Body weight 74 kg Mirella Beckrest [employer] [facility] Work Phone: NEGATED: Highlighted [id number] 10:06-0400 Body height 172.72 cm Gemini Danni [facility] Work Phone: NEGATED: Highlighted [id number] 10:06-0400 Body height 173 cm Gemini Danni [employer] [facility] Work Phone: NEGATED: Highlighted [id number] 10:06-0400 Body mass index (BMI) [Ratio] 24.72 kg/m2 Gemini Danni [employer] [facility] Work Phone: NEGATED: Highlighted [id number] 10:06-0400 Body weight 73.48 kg Gemini Danni [employer] [facility] Work Phone: NEGATED: Highlighted [id number] 10:06-0400 Body weight 74 kg Gemini Danni [employer] [facility] Work Phone: Encounters Encounter Date Encounter Type Care Provider Facility Start: 06-25-2025 ambulatory Iván Sexton [employer]OR [employer]REL Facility :[facility] Start: 06-14-2025 ambulatory Iván Sexton INSPECTOR [employer]REL Facility :[facility] Start: 05-17-2025 End: 05-17-2025 ambulatory Iván Sexton INSPECTOR BARREL Facility:[facility] Start: 05-17-2025 End: 05-17-2025 ambulatory Iván Sexton INSPECTOR BARREL Facility:[facility] Start: 05-08-2025 End: 05-08-2025 ambulatory Iván Case Facility:[facility] Start: 05-01-2025 End: 05-01-2025 ambulatory Elba Berger INSPECTOR BARREL Facility:[facility] Start: 04-24-2025 End: 04-24-2025 ambulatory Iván Case Facility:[facility] Start: 04-06-2025 End: 04-06-2025 ambulatory Iván Case Facility:[facility] Start: 03-26-2025 End: 03-26-2025 ambulatory Iván Case Facility:[facility] Start: 03-21-2025 End: 03-21-2025 ambulatory Iván Case Facility:[facility] Start: 02-20-2025 End: 02-21-2025 Evaluation and management of inpatient Iban Ramirez MD Work Phone: [facility] Surgical Trauma Neuro Intensive Care Unit [facility] ICU T2 Comment on above: Intracranial hemorrh age (HCC) (Primary Dx) Start: 02-20-2025 Emergency department patient visit [facility] Start: 02-20-2025 End: 02-20-2025 Emergency department patient visit Iván Case Facility:[facility] Start: 02-20-2025 End: 02-20-2025 ambulatory Iván Case Facility:[facility] Start: 02-12-2025 End: 02-12-2025 ambulatory Iván Case Facility:[facility] Start: 02-01-2025 End: 02-01-2025 ambulatory Iván Case Facility:[facility] Start: 01-23-2025 End: 01-23-2025 ambulatory Iván Case Facility:[facility] Start: 12-25-2024 End: 04-21-2025 ambulatory Iván Case Facility:[facility] Start: 11-22-2024 End: 11-22-2024 ambulatory Iván Case Facility:[facility] Start: 11-21-2024 End: 11-21-2024 ambulatory Elba Berger NP Facility:[facility] Start: 10-26-2024 End: 10-26-2024 ambulatory Iván Case Facility:[facility] Start: 10-24-2024 End: 10-24-2024 ambulatory Neo Tian Facility:[facility] Start: 09-26-2024 End: 09-26-2024 ambulatory Nilay Ellsworth Facility:[facility] Start: 08-14-2024 End: 08-14-2024 ambulatory Iván Case Facility:[facility] Start: 07-27-2024 End: 07-27-2024 ambulatory Nilay Ellsworth Facility:[facility] Start: 07-27-2024 ambulatory Iván Chowdhury y:[facility] Start: 07-25-2024 End: 07-26-2024 ambulatory Iván Case Facility:[facility] Start: 07-10-2024 End: 07-10-2024 ambulatory Neo Asmita Facility:[facility] Start: 01-18-2024 End: 01-18-2024 ambulatory IVÁN CASE Facility:[facility] Start: 01-18-2024 End: 01-18-2024 ambulatory Karla Castro PT, [facility] Start: 01-18-2024 End: 01-18-2024 Patient encounter procedure Karla Castro PT, [facility] Comment on above: Diabetes mellitus wi thout complication (HCC) (Primary Dx); Abnormality of gait due to impairment of balance; Weakness of both lower extremities; Abnormality of gait; Imbalance Start: 01-17-2024 End: 01-18-2024 ambulatory KARLA SAUER Facility:[facility] Start: 01-17-2024 End: 01-17-2024 Patient encounter procedure Karla Sauer PA-C Work Phone: [facility] Comment on above: Exocrine pancreatic insufficiency (Primary Dx); Nausea and vomiting, unspecified vomiting type Start: 01-10-2024 End: 01-10-2024 ambulatory IVÁN CASE Facility:[facility] Start: 01-10-2024 End: 01-10-2024 ambulatory María Orosco LOCKSMITH Work Phone: [facility] Start: 01-10-2024 End: 01-10-2024 Patient encounter procedure María Orosco LOCKSMITH Work Phone: [facility] Comment on above: Diabetes mellitus wi thout complication (HCC) (Primary Dx); Weakness of both lower extremities; Abnormality of gait; Imbalance Start: 01-06-2024 End: 01-06-2024 ambulatory IVÁN CASE Facility:[facility] Start: 01-06-2024 End: 01-06-2024 ambulatory Karla Castro PT, DPT [facility] Start: 01-06-2024 End: 01-06-2024 Patient encounter procedure Karla Castro PT, DPT [facility] Comment on above: Diabetes mellitus wi thout complication (HCC) (Primary Dx); Weakness of both lower extremities; Abnormality of gait; Imbalance Start: 12-29-2023 End: 12-29-2023 ambulatory Karla Sauer Facility:[facility] Start: 12-29-2023 End: 12-29-2023 Subsequent hospital visit by physician Naima Lee MD Work Phone: Ambulatory Surgery Comment on above: Diarrhea, unspecifie d type [R19.7] Start: 12-22-2023 ambulatory Naima dudley MD Work Phone: Ambulatory Surgery Start: 12-15-2023 End: 12-15-2023 ambulatory IVÁN CASE Facility:[facility] Start: 12-15-2023 End: 12-15-2023 ambulatory Elba Samaniego PT, DPT Work Phone: [facility] Comment on above: Diabetes mellitus wi thout complication (HCC) (Primary Dx); Weakness of both lower extremities; Abnormality of gait; Imbalance Start: 12-09-2023 End: 12-09-2023 ambulatory IVÁN CASE Facility:[facility] Start: 12-09-2023 End: 12-09-2023 ambulatory María Orosco LOCKSMITH Work Phone: [facility] Comment on above: Diabetes mellitus wi thout complication (HCC) (Primary Dx); Weakness of both lower extremities; Abnormality of gait; Imbalance Start: 12-02-2023 End: 12-02-2023 ambulatory SHERYL Y SERJIO Facility:[facility] Start: 11-29-2023 End: 11-29-2023 ambulatory María Orosco LOCKSMITH Work Phone: [facility] Comment on above: Diabetes mellitus wi thout complication (HCC) (Primary Dx); Weakness of both lower extremities; Abnormality of gait; Imbalance Start: 11-24-2023 End: 11-24-2023 ambulatory María Orosco LOCKSMITH Work Phone: [facility] Comment on above: Diabetes mellitus wi thout complication (HCC) (Primary Dx); Weakness of both lower extremities; Abnormality of gait; Imbalance Start: 11-18-2023 End: 11-18-2023 ambulatory Karla Castro PT, DPT [facility] Comment on above: Diabetes mellitus wi thout complication (HCC) (Primary Dx); Weakness of both lower extremities; Abnormality of gait; Imbalance Start: 11-15-2023 Telephone encounter Naima rivero MD Work Phone: [facility] Comment on above: Appointment Start: 11-11-2023 End: 11-11-2023 ambulatory IVÁN Gutierrez SHARIFA Facility:[facility] Start: 11-11-2023 Telephone encounter Karla Sauer PA-C Work Phone: [facility] Comment on above: Appointment Start: 11-11-2023 End: 11-11-2023 ambulatory María Orosco LOCKSMITH Work Phone: [facility] Comment on above: Diabetes mellitus wi thout complication (HCC) (Primary Dx); Weakness of both lower extremities; Abnormality of gait; Imbalance Start: 11-05-2023 Telephone encounter Karla Sauer PA-C Work Phone: [facility] Comment on above: Medication Problem Start: 11-03-2023 End: 11-03-2023 ambulatory IVÁN CASE Facility:[facility] Start: 11-03-2023 End: 11-03-2023 ambulatory María Cecy LOCKSMITH Work Phone: [facility] Comment on above: Diabetes mellitus wi thout complication (HCC) (Primary Dx); Weakness of both lower extremities; Abnormality of gait; Imbalance Start: 10-28-2023 End: 10-28-2023 ambulatory María Cecy LOCKSMITH Work Phone: [facility] Comment on above: Diabetes mellitus wi thout complication (HCC) (Primary Dx); Weakness of both lower extremities; Abnormality of gait; Imbalance Start: 10-26-2023 End: 10-27-2023 ambulatory SHERYL BASSETT Facility:[facility] Start: 10-26-2023 End: 10-27-2023 Office outpatient visit 15 minutes Sheryl Bassett MD Work Phone: Neurology Comment on above: Abnormality of gait due to impairment of balance (Primary Dx); Transient cerebral ischemia, unspecified type Start: 10-25-2023 Refill Germaine Bray MD Work Phone: [facility] Comment on above: Refill Request Start: 10-21-2023 End: 10-21-2023 ambulatory IVÁN CASE Facility:[facility] Start: 10-21-2023 End: 10-21-2023 ambulatory Karla Castro PT, DPT [facility] Comment on above: Diabetes mellitus wi thout complication (HCC) (Primary Dx); Weakness of both lower extremities; Abnormality of gait; Imbalance Start: 10-13-2023 End: 10-13-2023 ambulatory KARLA SAUER Facility:[facility] Start: 10-13-2023 End: 10-13-2023 Patient encounter procedure Karla Sauer PA-C Work Phone: [facility] Comment on above: Postprocedural leaka ge from bile duct; Diarrhea, unspecified type; Exocrine pancreatic insufficiency Start: 10-11-2023 End: 10-11-2023 ambulatory María Manuely LOCKSMITH Work Phone: [facility] Comment on above: Diabetes mellitus wi thout complication (HCC) (Primary Dx); Weakness of both lower extremities; Abnormality of gait; Imbalance Start: 10-06-2023 End: 10-06-2023 ambulatory IVÁN CASE Facility:[facility] Start: 09-23-2023 End: 09-23-2023 [facility] Start: 09-21-2023 End: 09-21-2023 [facility] Start: 09-16-2023 End: 09-16-2023 Emergency department patient visit MICHAEL GARCIA I Facility:[facility] Start: 09-16-2023 End: 09-16-2023 [facility] Start: 08-19-2023 End: 08-19-2023 ambulatory IVÁN CASE Facility:[facility] Start: 08-19-2023 End: 08-19-2023 ambulatory Karla Castro PT, DPT [facility] Comment on above: Diabetes mellitus wi thout complication (HCC) (Primary Dx); Weakness of both lower extremities; Abnormality of gait; Imbalance Start: 08-18-2023 Telephone encounter Elba Samaniego PT, DPT Work Phone: Rehab and Sports Therapy Start: 08-12-2023 End: 08-12-2023 ambulatory SHERYL Y SERJIO Facility:[facility] Start: 08-12-2023 End: 08-12-2023 ambulatory Emg 300) Work Phone: Neurology Comment on above: EMG Start: 08-12-2023 End: 08-12-2023 Patient encounter procedure Emg 2 Neur [facility] (Max Weight: 300) Work Phone: [facility] Start: 08-11-2023 End: 08-11-2023 ambulatory IVÁN CASE Facility:[facility] Start: 08-11-2023 End: 08-11-2023 ambulatory Elba Samaniego PT, DPT Work Phone: [facility] Comment on above: Abnormality of gait (Primary Dx); Weakness of both lower extremities; Imbalance Start: 07-27-2023 End: 07-28-2023 ambulatory SHERYL BASSETT Facility:[facility] Start: 07-27-2023 End: 07-27-2023 Office outpatient new 45 minutes Sheryl Bassett MD Work Phone: Neurology Comment on above: Weakness of both low er extremities Start: 07-27-2023 Telephone encounter Sheryl birmingham MD Work Phone: Neurology Comment on above: Appointment Start: 07-26-2023 End: 07-26-2023 ambulatory KARLA SAUER Facility:[facility] Start: 06-10-2023 End: 06-11-2023 ambulatory GERMAINE BRAY Facility:[facility] Start: 05-13-2023 ambulatory GERMAINE BRAY Facility: [facility] Start: 05-13-2023 End: 05-13-2023 Preprocedural examination done Germaine Bray MD Work Phone: [facility] Start: 05-13-2023 End: 05-13-2023 Subsequent hospital visit by physician Germaine Bray MD Work Phone: [facility] Comment on above: Gastroparesis [K31.8 4] Start: 05-13-2023 Encounter for other preprocedural examination GERMAINE BRAY [facility] Start: 04-22-2023 End: 04-22-2023 ambulatory GERMAINE BRAY Facility:[facility] Start: 04-22-2023 End: 04-22-2023 Subsequent hospital visit by physician Timothy Anguiano Wstr Work Phone: Nuclear Medicine Comment on above: Nausea [R11.0] Start: 04-08-2023 End: 04-09-2023 ambulatory GERMAINE BRAY Facility:[facility] Start: 04-08-2023 Telephone encounter Germaine stokes MD Work Phone: [facility] Comment on above: Appointment (EGD) Start: 04-08-2023 End: 04-08-2023 Subsequent hospital visit by physician [facility] Cat Scan Comment on above: Nausea [R11.0] Start: 04-06-2023 End: 04-06-2023 ambulatory GERMAINE BRAY Facility:[facility] Start: 04-06-2023 End: 04-06-2023 Patient encounter procedure Germaine Bray MD Work Phone: [facility] Comment on above: Nausea (Primary Dx); Gastroparesis; Heartburn Start: 07-16-2022 End: 07-16-[address] Iván Case Work Phone: [facility] Work Phone: Start: 07-16-2022 End: 07-16-[address] Iván Case Work Phone: [facility] Start: 07-09-2022 End: 07-09-[address] Iván Case Work Phone: [facility] Start: 07-02-[address] Iván Case Work Phone: [facility] Therapy Start: 04-20-2022 End: 04-20-2022 ambulatory [facility] Work Phone: Start: 04-20-2022 End: 04-20-2022 Discharged Recurring [facility] Start: 02-13-[address] Iván Case Work Phone: [facility] Start: 02-12-2022 End: 02-12-[address] Iván Case Work Phone: [facility] Start: 02-03-2022 End: 02-03-[address] Iván Case Work Phone: [facility] Start: 01-30-2022 End: 01-30-2022 Emergency department patient visit Dr. Iván Case Work Phone: [facility]-Emergency Department Start: 01-21-2022 Non-patient / Non-visit Dr. Genie Case Work Phone: [facility] Start: 01-21-2022 End: 01-21-2022 Admission to same day surgery center Dr. Iván Case Work Phone: [facility]-Endoscopy Start: 01-21-2022 Non-patient / Non-visit Dr. Genie Case Work Phone: [facility] Start: 01-06-2022 End: 01-06-2022 Patient encounter procedure [facility] Start: 12-16-2021 End: 12-16-2021 Pt evaluation Hiram Paul MD Work Phone: [facility] Work Phone: Start: 12-11-2021 End: 12-11-[address] Iván Case Work Phone: [facility] Start: 11-07-2021 End: 11-07-[address] Iván Case Work Phone: [facility] Start: 09-24-2021 End: 09-24-[address] Iván Case Work Phone: [facility] Start: 09-07-2021 Non-patient / Non-visit Dr. Genie Case Work Phone: [facility] Start: 09-04-2021 Non-patient / Non-visit Dr. Genie Case Work Phone: [facility] Start: 09-03-2021 Non-patient / Non-visit Dr. Genie Case Work Phone: [facility] In[facility] Physicians Start: 09-03-2021 Non-patient / Non-visit Dr. Genie Case Work Phone: [facility] Start: 09-02-2021 Non-patient / Non-visit Dr. Genie Case Work Phone: [facility] Start: 09-02-2021 Non-patient / Non-visit Dr. Genie Case Work Phone: [facility] Start: 09-01-2021 Non-patient / Non-visit Dr. Genie Case Work Phone: [facility] Start: 09-01-2021 End: 09-04-2021 Evaluation and management of inpatient Dr. Iván Case Work Phone: [facility] 3 Start: 11-08-2020 End: 11-08-2020 Patient encounter procedure External Provider [facility] Start: 11-08-2020 Results Only External Provider [facility] Start: 12-15-2019 End: 12-20-2019 Evaluation and management of inpatient Colton Marroquin Work Phone: [facility] Comment on above: S/P CABG x 3 (Primar y Dx); CAD in [place] artery Start: 12-13-2019 End: 12-13-2019 Subsequent hospital visit by physician Colton Marroquin Work Phone: [facility] Pre[facility]Admit [facility] Comment on above: Arrived Start: 12-12-2019 End: 12-12-2019 Subsequent hospital visit by physician Alicia Carroll Work Phone: [facility] Comment on above: CAD, multiple vessel ; Preoperative examination Start: 12-12-2019 End: 12-12-2019 Subsequent hospital visit by physician Colton Marroquin Work Phone: [facility] [...] PA-C Work Phone: Start: 12-29-2023 Colonoscopy Karla dorantes PT, DPT Start: 08-12-2023 Nerve conduction chloe [...] End: 12-16-2021 Docrev cur meds by elig clin Hiram reyes MD Work Phone: Start: 12-16-2021 End: [...] BP scrn no perf at interval Dale A K ase MD Work Phone: Start: 11-28-2021 End: 11-28-2021 [...] External P rovider Start: 11-08-2020 EXTERNAL IMAGING Identification Officer al Provider Start: 12-20-2019 Potassium serum [...] A Marroquin Work Phone: Start: 12-15-2019 EXTUBATION eRed Hernandez Work Phone: Start: 12-15-2019 History of [...] Basic metabolic pane l calcium total Alicia Uptoner Work Phone: Start: 12-12-2019 Blood count complete [...] extracra nial art compl bi study Colton Marroquin Work Phone: NEGATED: Highlighted rowStart: 12-16-2021 End: 12-16-2021 Documentation of current medications Mirella Zarate PRODUCTION GRIP NEGATED: Highlighted rowStart: 11-28-2021 End: 11-28-2021 Documentation of current medications Gemini Razo PRODUCTION GRIP Plan of Treatment Date Care Activity Detail Author Start: 02-20-2035 DTaP/Tdap/Td Vaccines (3 - Td or Tdap) DTaP/Tdap/Td Vaccines (3 - Td or Tdap) [facility] Start: 09-29-2029 DTaP/Tdap/Td vaccine (2 - Td) DTaP/Tdap/Td vaccine (2 - Td) [place] Start: 09-29-2029 Urine microalbumin profile [facility] Start: 02-21-2026 Diabetes: Estimated Glomerular Filtration Rate for Kidney [facility] Diabetes: Estimated Glomerular Filtration Rate for Kidney Health [facility] Start: 12-28-2024 Screening for malignant neoplasm of colon [facility] Start: 06-12-2024 DIABETES SCREEN DIABETES SCREEN [facility] Start: 06-10-2024 BP Controlled (<130/80) BP Controlled (<130/80) [facility] inic Start: 05-07-2024 Covid-19 Vaccine ( season) Covid-19 Vaccine ( season) [facility] Start: 05-07-2024 Influenza vaccination Influenza Vaccine (#[facility]) [facility] Start: 04-10-2024 End: 04-10-2024 Patient encounter procedure 04/10/2024 1:00 PM EDT Office Visit [facility] [address] [place] [address] Karla Sauer PA-C [address] [place], [place] [id number] 6 month follow up [facility] Comment on above: 6 month follow up Start: 04-06-2024 BP CONTROLLED (<130/80) BP CONTROLLED (<130/80) [facility] Start: 01-18-2024 End: 01-18-2024 Patient encounter procedure 01/18/2024 4:45 PM EDT OT/PT/Speech Visit [facility] [address] [place] [address] Karla Castro, PT, DPT [address] [place] [address] Gait Abnormaility [facility] Comment on above: Gait Abnormaility Start: 01-17-2024 End: 01-17-2024 Patient encounter procedure 01/17/2024 2:30 PM EDT Office Visit [facility] [address] [place] [address] Karla Sauer PA-C [address] [place] [address] follow up/scope [facility] Comment on above: follow up/scope Start: 01-10-2024 End: 01-10-2024 Patient encounter procedure 01/10/2024 11:30 AM EDT OT/PT/Speech Visit [facility] [address] [place] [address] María Orosco, LOCKSMITH [address] [place] [address] Gait Abnormaility [facility] Comment on above: Gait Abnormaility Start: 10-23-2023 Covid-19 Vaccine () Covid-19 Vaccine ( season) [facility] Start: 09-06-2023 Advance Directive Discussion Advance Directive Discussion [facility] Start: 09-06-2023 Behavioral Health Screening Behavioral Health Screening [facility] Start: 09-06-2023 Depression Assessment Depression Assessment [facility] Start: 05-07-2023 Covid-19 Vaccine ( season) Covid-19 Vaccine () [facility] Start: 05-07-2023 Influenza vaccination [facility] Start: 04-06-2023 End: 06-06-2023 CREATININE BLD CREATININE BLD Lab Routine Nausea Expected: 04/06/2023, Expires: 06/06/2023 [facility] Work Phone: Comment on above: Expected: 04/06/2023, Expires: Start: 11-03-2022 COVID-19 VACCINE (5 - Moderna series) COVID-19 VACCINE (5 - Moderna series) [facility] Start: 09-06-2022 ADVANCE DIRECTIVE DISCUSSION ADVANCE DIRECTIVE DISCUSSION [facility] Start: 09-06-2022 DEPRESSION ASSESSMENT DEPRESSION ASSESSMENT [facility] Start: 03-13-2022 Hemoglobin A1c measurement Diabetes: Hemoglobin A1C [facility] Start: 01-21-2022 Ercp remove calculi/debris biliary/pancreas duct ERCP REMOVE DUCT CALCULI [facility] Work Phone: Start: 01-21-2022 Ercp w/sphincterotomy/papill otomy ENDO CHOLANGIOPANCREATOGRAPH [facility] Work Phone: Start: 12-16-2021 End: 12-16-2021 Patient encounter procedure Appointment [facility] Work Phone: Start: 11-28-2021 End: 11-28-2021 Patient encounter procedure Appointment [facility] Work Phone: Start: 10-08-2021 Pneumococcal Vaccine: 65+ (2 - PCV) Pneumococcal Vaccine: 65+ (2 - PCV) [facility] Start: 10-08-2021 Pneumococcal Vaccine: 65+ (2 of 2 - PCV) Pneumococcal Vaccine: 65+ (2 of 2 - PCV) [facility] Start: 10-08-2021 PNEUMOCOCCAL: 65+ (2 - PCV) PNEUMOCOCCAL: 65+ (2 - PCV) [facility] Start: 09-13-2021 Hemoglobin A1c measurement HbA1C [facility] Start: 09-13-2021 Hemoglobin A1c/Hemoglobin.total in Blood HBA1C [facility] Start: 12-19-2020 Creatinine monitoring Creatinine monitoring [facility] Start: 12-19-2020 Potassium monitoring Potassium monitoring [facility] Start: 12-11-2020 A1C test (Diabetic or Prediabetic) A[facility]C test (Diabetic or Prediabetic) [facility] Start: 12-11-2020 Creatinine monitoring Creatinine monitoring [facility] Start: 12-11-2020 Potassium monitoring Potassium monitoring [facility] Start: 05-07-2020 Influenza vaccination INFLUENZA (#1) [facility] Start: 12-27-2019 End: 12-19-2020 Basic metabolic 2000 panel Basic Metabolic Panel Lab Routine S/P CABG x 3 Expected: 12/27/2019, Expires: 12/19/2020 [facility] Comment on above: Expected: 12/27/2019, Expires: 1 Start: 12-27-2019 End: 12-19-2020 CBC CBC Lab Routine S/P CABG x 3 Expected: 12/27/2019, Expires: 12/19/2020 [facility] Comment on above: Expected: 12/27/2019, Expires: 1 Start: 12-27-2019 End: 12-27-2019 Virtual Visit 12/27/2019 Virtual Visit Cardiothoracic Surgery Larisa Watts, [facility] [address] [place] [address] [phone] CT [facility] Start: 12-15-2019 Annual Wellness Visit (AWV) Annual Wellness Visit (AWV) [facility] Start: 12-15-2019 Hospital Encounter 12/15/2019 Hospital Encounte r IP Unit Colton Marroquin MD [address] [place], [place] [id number] [facility] Start: 12-13-2019 Hospital En[facility] 12/13/2019 [facility] Colton Marroquin MD [address] [place], [place] [id number] [facility] Pre-Admit Testing Start: 2019 ADVANCE DIRECTIVE DISCUSSION ADVANCE DIRECTIVE DISCUSSION [facility] Start: 2019 Pneumococcal 65+ years Vaccine (1 of 1 - PPSV23) Pneumococcal 65+ years Vaccine (1 of 1 - PPSV23) [place], [place] Start: 2019 PNEUMOVAX AGE 65 AND OVER WITH 5YR LOOKBACK (#1) PNEUMOVAX AGE 65 AND OVER WITH 5YR LOOKBACK (#1) [facility] Start: 06-10-2018 Shingles Vaccine (2 of 2) Shingles Vaccine (2 of 2) [place], [place] Start: 2014 Hepatitis B Vaccine (1 of 3 - Risk 3-dose series) Hepatitis B Vaccine (1 of 3 - Risk 3-dose series) [facility] Start: 2014 RSV Vaccine (1 - 1-dose 60+ series) RSV Vaccine (1 - 1-dose 60+ series) [facility] Start: 2009 PROSTATE CANCER SCREENING DISCUSSION PROSTATE CANCER SCREENING DISCUSSION [facility] Start: 2004 Colon cancer screen colonoscopy Colon cancer screen colonoscopy [place], [place] Start: 2004 Screening for malignant neoplasm of colon [facility] Start: 2004 SHINGRIX VACCINE (1 of 2) SHINGRIX VACCINE (1 of 2) [facility] Start: 1999 COLOGUARD (FIT-DNA) COLOGUARD (FIT-DNA) [facility] Start: 1999 Colonoscopy COLONOSCOPY [facility] Start: 1999 COLORECTAL CANCER SCREENING COLORECTAL CANCER SCREENING [facility] Start: [address] COLONOGRAPHY [facility] Start: 1999 DIABETES SCREEN DIABETES SCREEN [facility] Start: 1999 FECAL OCCULT BLOOD FECAL OCCULT BLOOD [facility] Start: 1999 Screening for malignant neoplasm of colon [facility] Start: 1999 SIGMOIDOSCOPY SIGMOIDOSCOPY [facility] Start: 1989 LIPID SCREEN LIPID SCREEN [facility] Start: 1973 Urine microalbumin profile DTAP,TDAP,TD (1 - Tdap) [facility] Start: 1972 ANNUAL PCP TEAM CHRONIC DISEASE VISIT ANNUAL PCP TEAM CHRONIC DISEASE VISIT [facility] Start: 1972 Anxiety Screening Anxiety Screening [facility] Start: 1972 BP Controlled (<130/80) BP Controlled (<130/80) [facility] Start: 1972 Depression Screening Depression Screening [facility] Start: 1972 Diabetes: Urine Albumin-Creatinine Ratio for Kidney Health Diabetes: Urine Albumin-Creatinine Ratio for Kidney Health [facility] Start: 1972 Diabetic microalbuminuria test Diabetic microalbuminuria test [place], [place] Start: 1972 Hepatitis B surface antibody level LDL CHOLESTEROL [facility] Start: 1972 HEPATITIS C SCREENING HEPATITIS C SCREENING [facility] Start: 1972 Hepatitis C screening Hepatitis C Screening [facility] Start: 1969 HIV screen HIV screen [place], [place] Start: 1966 Adult depression screening assessment DEPRESSION SCREENING [facility] Start: 1964 [object Object] Diabetic foot exam [facility] Start: 1964 Diabetic foot examination [facility] Start: 1964 Diabetic retinal exam Diabetic retinal exam [place], [place] Start: 1964 Glaucoma screening [facility] Start: 1964 Hepatitis B screening URINE ALBUMIN:CREATININE RATIO [facility] Start: 1964 Hepatitis C antibody, confirmatory test DILATED RETINAL EXAM [facility] Start: 1964 Lipid screen Lipid screen [facility] [place] Start: 1964 Preventive dental service Diabetes: Dental Exam [facility] Start: 1954 AAA screen AAA screen [facility] Start: 1954 ABDOMINAL AORTIC ANEURYSM SCREENING ABDOMINAL AORTIC ANEURYSM SCREENING [facility] Start: 1954 Abdominal aortic aneurysm screening Abdominal Aortic Aneurysm Screening [facility] Start: 1954 Hepatitis C screen Hepatitis C screen [place], [place] Start: 1954 Lipid panel Lipid Panel [facility] Start: 1954 Medicare Annual Wellness (AWV) Medicare Annual Wellness (AWV) [facility] Start: 1954 Screening for malignant neoplasm of colon [facility] Acapella Acapella Respira tory Care Routine Every 2hr while awake until discontinued starting 12/15/[address] [facility] [address] Comment on above: Every 2hr while awake until discontinued starting 12/15/2019 AUTOPAP Overnight AutoPA P Respiratory Care Routine QHS until discontinued starting 12/15/2019 [facility] Comment on above: QHS until discontinued starting 12/15/19 20 Basic metabolic 2000 panel Basic Metabolic Panel Lab Routine Daily until discontinued starting 12/15/2019, 5 completed [facility] Comment on above: Daily until discontinued starting 2019, 5 completed Calcium, Ionized Calcium, Ionize d Lab Routine As Needed until discontinued starting 12/15/2019 [facility] Comment on above: As Needed until discontinued starting Calprotectin [Mass/mass] in Stool CALPROTECTIN,FECAL Lab Routine Diarrhea, unspecified type Ordered: 10/13/2023 [facility] Work Phone: Comment on above: Ordered: 10/13/2023 CBC CBC Lab Routine Daily until discontinued starting 12/15/2019, 5 completed [facility] Comment on above: Daily until discontinued starting 2019, 5 completed End: 05-05-2024 Ct abdomen & pelvis w/contrast material CT ABD/PEL W IVCON Radiology Routine Nausea 1 Occurrences starting 04/06/2023 until 05/05/2024 [facility] Work Phone: Comment on above: 1 Occurrences starting 04/06/2023 until 05/05/2024 End: 04-06-2024 EGD DIAGNOSTIC EGD DIAGNOSTIC Endoscopy Routine Gastroparesis Heartburn 1 Occurrences starting 04/06/2023 until 04/06/2024 [facility] Work Phone: Comment on above: 1 Occurrences starting 04/06/2023 until 04/06/2024 End: 07-27-2024 EMG(NEURO/NI) EMG(NEURO/NI) EMG Routine Weakness of both lower extremities 1 Occurrences starting 07/27/2023 until 07/27/2024 [facility] Work Phone: Comment on above: 1 Occurrences starting 07/27/2023 until 07/27/2024 End: 05-05-2024 Gastric emptying imaging study NM GASTRIC EMPTYING SOLID Radiology Routine Nausea 1 Occurrences starting 04/06/2023 until 05/05/2024 [facility] Work Phone: Comment on above: 1 Occurrences starting 04/06/2023 until 05/05/2024 Hemoglobin and Hematocrit, Blood, Post Transfusion Hemoglobin and Hematocrit, Blood, Post Transfusion Lab Routine Post Transfusion Post Transfusion Post Transfustion for 1 Occurrences starting 12/19/[address] [facility] [address] Comment on above: Post Transfusion Post Transfusion Post T ransfustion for 1 Occurrences starting 12/19/2019 Incentive spirometry Incentive s pirometry Respiratory Care Routine Every 2hr while awake until discontinued starting 12/15/2019 [facility], CT Comment on above: Every 2hr while awake until discontinued starting 12/15/2019 Initiate Oxygen Ther apy Protocol Initiate Oxygen Therapy Protocol Respiratory Care Routine Daily until discontinued starting 12/15/2019 [place] Comment on above: Daily until discontinued starting 2019 End: 11-24-2024 MR Brain WO contrast MRI BRAIN WO IVCON Radiology Routine Transient cerebral ischemia, unspecified type 1 Occurrences starting 10/26/2023 until 11/24/2024 [facility] Work Phone: Comment on above: 1 Occurrences starting 10/26/2023 until 11/24/2024 Patient Education ED Post Op Wou nd Check, Bleeding [facility] Work Phone: Patient referral [facility] Work Phone: [facility] above: 4X Daily (AC & HS) until discontinued st arting 12/17/2019 As Needed until disc ontinued starting 12/17/2019 End: 12-12-2019 PREPARE RBC (CROSSMATCH), 2 Units PREPARE RBC (CROSSMATCH), 2 Units Blood Bank Routine CAD, multiple vessel Preoperative examination 1 Occurrences starting 12/12/2019 until 12/12/[address] [facility] [address] Comment on above: 1 Occurrences starting 12/12/2019 until 12/12/2019 PREPARE RBC (CROSSMATCH), 2 Units [place], [place] SURGICAL PATHOLOGY SURGICAL PATH OLOGY Lab Routine Preop examination Primary hypertension Diabetes mellitus without complication (HCC) CABRERA (obstructive sleep apnea) Gastroparesis Heartburn Release Upon Ordering for 1 Occurrences starting 05/13/2023 [facility] Work Phone: Comment on above: Release Upon Ordering for 1 Occurrences starting 05/13/2023 XR CHEST PORTABLE XR CHEST DONN BLE Imaging Routine Daily until discontinued starting 12/16/2019, 5 completed [place] Comment on above: Daily until discontinued starting 2019, 5 completed [facility] Immunizations Immunization Date Immunization Notes Care Provider [facility] 06-22-2023 influenza (aIIV4) vaccine, age 65+ yr, quadrivalent, PF (FLUAD QUAD) María Orosco LOCKSMITH Work Phone: [facility] 06-22-2023 respiratory syncytia l virus (RSV) vaccine, bivalent (ABRYSVO) María Orosco LOCKSMITH Work Phone: [facility] 06-22-2023 influenza virus vacc ine, unspecified formulation Naima Lee MD Work Phone: [facility] 06-05-2022 influenza, injectabl e, quadrivalent, preservative free Germaine Bray MD Work Phone: [facility] 06-05-2022 influenza virus vacc ine, unspecified formulation Ct (I-Stat) Work Phone: [facility] 07-24-2021 Covid (Moderna) Dr. Iván tesfaye Work Phone: [facility] Work Phone: 06-12-2021 influenza (HD-IIV4) vaccine, age 65+ yr, high dose, quadrivalent, PF (FLUZONE HIGH-DOSE) Germaine Bray MD Work Phone: [facility] 06-12-2021 influenza, seasonal, injectable Dr. Iván Case Work Phone: [facility] Work Phone: 12-04-2020 Covid (Moderna) Dr. Iván tesfaye Work Phone: [facility] Work Phone: 11-07-2020 Covid (Moderna) Dr. Iván tesfaye Work Phone: [facility] Work Phone: 10-08-2020 pneumococcal polysaccharide vaccine, 23 valent Germaine Bray MD Work Phone: [facility] 05-28-2020 influenza, injectabl e, quadrivalent, preservative free Germaine Bray MD Work Phone: [facility] 02-18-2020 zoster vaccine recombinant Germaine Bray MD Work Phone: [facility] 09-29-2019 tetanus toxoid, redu cony diphtheria toxoid, and acellular pertussis vaccine, adsorbed Germaine Bray MD Work Phone: [facility] 07-28-2019 influenza, injectabl e, quadrivalent, preservative free Germaine Bray MD Work Phone: [facility] 06-14-2018 influenza, injectabl e, quadrivalent, contains preservative Germaine Bray MD Work Phone: [facility] 04-15-2018 zoster vaccine recombinant Germaine Bray MD Work Phone: [facility] Payers Date Payer Category Payer Self-pay [id number] 2023 Unknown [id number] 2020 Private Health Insurance [employer] MEDICARE SUPPLEMENT [id number] 2020-Present Indemnity [id number] 2019 Private Health Insurance [id number] 2019 Private Health Insurance [id number] 2019 Medicare [id number] 2019 Medicare MEDICARE MEDICAR E A AND B [id number] 2019-Present [place], [place] Medicare [id number] 2019 Medicare [id number] .[id number] 2019 Unknown [id number] .[id number] 2019 Medicare [id number] Unknown [id number] Unknown [id number] 2.16840.1.880533.3.579.2 .462 Unknown [id number] 2.840.1.432669.3.579.2 .462 Unknown [id number] 2.840.1.457626.3.579.2 .462 Unknown [id number] 2.840.1.967958.3.579.2 .462 Unknown [id number] 2.840.1.373105.3.579.2 .462 Unknown [id number] 2.16840.1.994348.3.579.2 .462 Unknown [id number] 2.16840.1.132553.3.579.2 .462 Unknown [id number] 2.16840.1.942071.3.579.2 .462 Unknown [id number] 2.16840.1.730594.3.579.2 .462 Unknown [id number] 2.16.840.1.541652.3.579.2 .462 Unknown [id number] 2.16.840.1.675882.3.579.2 .462 Unknown [id number] 2.16.840.1.617759.3.579.2 .462 Unknown [id number] 2.16.840.1.962496.3.579.2 .462 Unknown [id number] 2.840.1.280262.3.579.2 .462 Unknown [id number] 2.840.1.074020.3.579.2 .462 Unknown [id number] 2.840.1.110716.3.579.2 .462 Unknown [id number] 2.840.1.326874.3.579.2 .462 Unknown [id number] 2.840.1.638967.3.579.2 .462 Unknown [id number] 2.840.1.731184.3.579.2 .462 Unknown [id number] 2.840.1.041633.3.579.2 .462 Unknown [id number] 2.840.1.264766.3.579.2 .462 Unknown [id number] 2.840.1.512002.3.579.2 .462 Unknown [id number] 2.840.1.586757.3.579.2 .462 Unknown [id number] 2.840.1.675342.3.579.2 .462 Unknown [id number] 2.16840.1.768981.3.579.2 .462 Unknown [id number] 2.16840.1.122172.3.579.2 .462 Unknown [id number] 2.16.840.1.585164.3.579.2 .462 Unknown [id number] 2.840.1.893478.3.579.2 .462 Unknown [id number] 2.16.840.1.531569.3.579.2 .462 Unknown [id number] 2.16.840.1.461644.3.579.2 .462 Unknown [id number] 2.16.840.1.522252.3.579.2 .462 Unknown [id number] 2.16.840.1.919110.3.579.2 .462 Unknown [id number] 2.16.840.1.625927.3.579.2 .462 Social History Date Type Detail Facility Start: 12-12-2019 End: 04-06-2023 Tobacco smoking status NHIS Former smoker [facility] Start: 12-12-2019 End: 02-20-2025 Alcohol intake Current drinker of alcohol (finding) [place], [place] Start: 12-12-2019 Alcohol Comment once a month [place], [place] Start: 1955 Sex Assigned At Not on file [place], [place] History of tobacco use Cigarette Smoker [place] Start: 12-13-2019 End: 02-20-2025 Cigarettes smoked current (pack per day) - Reported [facility] Start: 12-13-2019 Tobacco Comment 1 ppd times 5 yrs, quit 1975 [place], [place] Exposure to SARS-CoV-2 (event) Unable to assess [place] Exposure to SARS-CoV-2 (event) Not sure [facility] Start: 09-01-2021 End: 07-09-2022 Assertion Unknown if ever smoked [facility] Work Phone: Start: 08-23-2020 Non-smoker [facility] Work Phone: Start: 1955 Sex Assigned At [facility] [facility] History of tobacco use Current smoker [facility] Start: 04-06-2023 Tobacco use and exposure Smokeless tobacco non-user [facility] Start: 04-06-2023 End: 02-20-2025 Tobacco use panel [facility] National Score (1-100), lower number is lower risk Not on file [facility] Start: 04-06-2023 Tobacco Comment during college [facility] Start: 01-21-2021 Gender identity Identifies as male gender (finding) [facility] Start: 01-21-2021 Sexual orientation Heterosexual (gilmer davis) [facility] How often to you hav e a drink containing alcohol? 2-4 times a month [facility] How many standard drinks containing alcohol do you have on a typical day? 1 or 2 [facility] How often do you hav e 6 or more drinks on 1 occasion? Never [facility] Start: 04-06-2022 Sex Male (finding) [facility] NEGATED: Highlighted rowStart: 11-28-2021 End: 11-28-2021 Alcohol use Alcohol use [facility] Work Phone: NEGATED: Highlighted rowStart: 11-28-2021 End: 11-28-2021 Details of drug misuse behavior Details of drug misuse behavior [facility] Work Phone: NEGATED: Highlighted rowStart: 11-28-2021 End: 11-28-2021 Assertion Former smoker [facility] Work Phone: Medical Equipment Procedure Code Equipment Code Equipment Origin al Text Equipment Identifier Dates ORIF, fracture, humerus 3.5 Gilberto Screw FDA Start: 05-22-2021 ORIF, fracture, humerus ([id number]) Tendon/l igament bone anchor, bioabsorbable ()[id number] FDA Start: 05-22-2021 ORIF, fracture, humerus 3.5 Gilberto Screw FDA Start: 05-22-2021 ORIF, fracture, humerus BONE,CRU SHED CANCELLOUS 15CC FDA Start: 05-22-2021 ORIF, fracture, humerus ([id number]) Tendon/l igament bone anchor, bioabsorbable ()[id number] FDA Start: 05-22-2021 ORIF, fracture, humerus ([id number]) Tendon/l igament bone anchor, bioabsorbable ()[id number] FDA Start: 05-22-2021 ORIF, fracture, humerus ([id number]) Tendon/l igament bone anchor, bioabsorbable ()[id number] FDA Start: 05-22-2021 ORIF, fracture, humerus ([id number]) Tendon/l igament bone anchor, bioabsorbable ()[id number] FDA Start: 05-22-2021 ORIF, fracture, humerus ([id number]) Tendon/l igament bone anchor, bioabsorbable ()[id number] FDA Start: 05-22-2021 ORIF, fracture, humerus [...] FDA Start: 09-02-2021 ERCP (endoscopic retrograde cholangiopancreatography) ([id number]) Polymer-metal biliary stent, non-bioabsorbable [id number] FDA Start: 09-02-2021 ERCP (endoscopic retrograde cholangiopancreatography) [...] Cholecystocolostomy Plant polysa ccharide haemostatic agent, bioabsorbable ()[id number] FDA Start: 09-02-2021 Cholecystocolostomy Ligation cli p, synthetic polymer, non-bioabsorbable ()[id number] FDA Start: 09-02-2021 Functional Status Date Assessment Result Facility 09-04-2021 Functional status [facility] Work Phone: [facility] Mental Status Date Assessment Result Facility 01-21-2022 Cognitive function Voice/Name [facility] Work Phone: 09-04-2021 Cognitive function Voice/Name [facility] Work Phone: Clinical Notes 12-15-2019 to 02-21-2025 Joshua Celis - 02/21/2025 10:46 AM Annabella Mayorga RN - 02/21/2025 10:29 AM Annabella Mayorga RN - 02/21/2025 10:29 AM RISATCerin Krueger - Mary Rico RN - 02/21/2025 10:12 AM EDT Note Date & Type Note Facility 02-21-2025 Note PHYSICAL THERAPY [facility] Initial Evaluation Name/MRN: Douglas Callaway ([id number]) Evaluation Date: 02/21/2025 Date of : 1955 Admission Date: 02/20/2025 2:48 PM Age: 69 y.o. Room/Bed: T2-225/T2-225 A Discharge Recommendation: Outpatient PT Assessment IMPRESSION: 69 y.o. pt admitted to [facility] for intracranial hemorrhage post fall. They [...] enter in home. 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 Prior Level of Function Prior Level of [...] In 0850 Time Out 0907 Minutes 17 Joshua Cleis, SPT Patient's Physical Therapy Plan of Care supervision is transferred to a [facility] Physical Therapist. Bryan (more content not included)... [facility] 02-21-2025 History of Present illness Narrative Images from the original note were not included. PHYSICAL THERAPY [facility] Initial Evaluation Name/MRN: Douglas Callaway ([id number]) Evaluation Date: 02/21/2025 Date of : 1955 Admission Date: 02/20/2025 2:48 PM Age: 69 y.o. Room/Bed: T2-225/T2-225 A Discharge Recommendation: Outpatient PT Assessment IMPRESSION: 69 y.o. pt admitted to [facility] for intracranial hemorrhage post fall. They [...] enter in home. 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 Prior Level of Function Prior Level of [...] of Care supervision is transferred to a [facility] Physical Therapist. Goals and/or [...] (HISTORICAL) WISDOM TOOTH EXTRACTION Cosigned by Wendy Stevens PT at 02/21/2025 12:44 PM EDT documented in this encounter [facility] 02-21-2025 Note Discharge education completed with patient, no further questions at this time. PIV discontinued. Pt dressed in clothing and sent via wheelchair with to private vehicle. [facility] 02-21-2025 Nurse Note Discharge education completed with patient, no further questions at this time. PIV discontinued. Pt dressed in clothing and sent via wheelchair with to private vehicle. [facility] 02-21-2025 Nurse Note Discharge education completed with patient, no further questions at this time. PIV discontinued. Pt dressed in clothing and sent via wheelchair with to private vehicle. documented in this encounter [facility] 02-21-2025 Note Formatting of this n ote might be different from the original. Care Managment Initial Assessment Date: 02/21/2025 Patient Name: Douglas Callaway : 1955 Patient Information Source of Information: Patient Cognition/Language: WFL - Within Functional Limits Permission given to speak with patient territory representative/caregiver as indicated: Yes Confirmation of Payer [...] transportation when pt is discharged. Will follow. [facility] 02-21-2025 Note Formatting of this n ote might be different from the original. Care Managment Initial Assessment Date: 02/21/2025 Patient Name: Douglas Callaway : 1955 Patient Information Source of Information: Patient Cognition/Language: WFL - Within Functional Limits Permission given to speak with patient territory representative/caregiver as indicated: Yes Confirmation of Payer with patient/family: Yes Payer Name: Medicare [place]: No Confirmation of Primary Care Physician: Confirmed [...] transportation when pt is discharged. Will follow. [facility] 02-21-2025 Miscellaneous Notes Care Managment Initial Assessment Date: 02/21/2025 Patient Name: Douglas Callaway : 1955 Patient Information Source of Information: Patient Cognition/Language: WFL - Within Functional Limits Permission given to speak with patient territory representative/caregiver as indicated: Yes Confirmation of Payer with patient/family: Yes Payer Name: Medicare [place]: No Confirmation of Primary Care Physician: Confirmed [...] discharged. Will follow. documented in this encounter [facility] 02-21-2025 Consult note Associated Order (s): IP CONSULT TO PALLIATIVE CARE Patient meets trigger criteria for Palliative Care Consultation. The case has been discussed with the Palliative Care Interdisciplinary Team and Case was discussed with Palliative Care team and Trauma team and consultation has been deferred at this time. Douglas Callaway has been seen in consultation by [facility] Pall[facility] during their admission to [facility]. They currently have established goals of care and we have signed off of their case. [facility] Note Patient meets trigge r criteria for Palliative Care Consultation. The case has been discussed with the Palliative Care Interdisciplinary Team and Case was discussed with Palliative Care team and Trauma team and consultation has been deferred at this time. Douglas Callaway has been seen in consultation by [facility] Palliative Care during their admission to [facility]. They currently have established goals of care and we have signed off of their case. [facility] 02-21-2025 Consult note Associated Order (s): IP CONSULT TO PALLIATIVE CARE Patient meets trigger criteria for Palliative Care Consultation. The case has been discussed with the Palliative Care Interdisciplinary Team and Case was discussed with Palliative Care team and Trauma team and consultation has been deferred at this time. Douglas Callaway has been seen in consultation by [facility] Palliative Care during their admission to [facility]. They currently have established goals of care and we have signed off of their case. Associated Order(s): IP CONSULT TO GERIATRICS [facility] Geriatric Medicine Inpatient Consult Service [...] it doesn't support him at times and "gives way". Feels balance is worse when he closes [...] spasms Advance Care Planning Healthcare Power of Physician Liaison: Yes, Financial Power of Physician Liaison: Yes, Living Will:Yes Code Status: Full Code [...] (97.8 F) (Temporal) Resp 15 Ht 5' 8" (1.727 m) Wt 160 lb 4.4 oz [...] - 100 mg/dL No results found for: "TSH" No components found for: "B12" No results found for: "VITD25" Reviewed: active problem list, medication list, social history, notes from last several encounters, lab results, imaging Follow-up: colten Vilchis, KHARI - CASKET UPHOLSTERER 02/21/25 9:10 AM [1] Not on File [2] Current Facility-Administered Medications: acetaminophen (Tylenol) tablet 1,000 mg, 1,000 mg, Oral, q8h, Kaylen Ochoa, GLOVE TAGGER - CASKET UPHOLSTERER, 1,000 mg at 02/21/25 0639 dextrose 5 [...] 0-6 Units, 0-6 Units, SubCUTAneous, Nightly, Elba Thmoas MD labetalol (Normodyne,Trandate) injection 10 mg, 10 [...] aspirin at home. He was evaluated at [facility] and there was concern for intracranial blood. [...] of this note documented in this encounter [facility] 02-21-2025 Note ---- Attestation signed by Moises [...] on: 02/21/25 Total Care Time (combined between GLOVE TAGGER-CASKET UPHOLSTERER/PA-C/resident and myself) throughout the day today was >= 30 minutes (including chart/data review/analysis, care coordination, and smbt-jv-jcig encounter), and was spent discussing/counseling the patient/family [...] Surgery Division of Trauma Department of Surgery [facility] [1] Patient Active Problem List Diagnosis [...] happened around this am on 02/20/2025 at [facility]. When the event happened the patient was leaving the hospital after a sleep study and fell- did not get dizzy but lost his footing. INJURIES: Temporal IPH PROCEDURES: none INCIDENTAL FINDINGS: none Hospital course: 69yM presents as direct admit from [facility] after falling outside in the parking lot [...] for: IONCA Magnesium: No results found for: "MG" Phosphorus: No results found for: PHOS PT/INR: No results found for: "PROTIME", "INR" PTT: No results found for: "APTT"[APTT Last 3 Troponin: No results found for: TROPONINI Urine Culture: No components found for: "CURINE" Blood Culture: No components found for: "CBLOOD", "CFUNGUSBL" Blood Culture from Central Line: No components found for: "CBLOODLN" Stool Culture: No components found for: "CSTOOL" Sputum Culture: No components found for: "CSPUTUM" Sputum Culture for AFB: No components found for: "CAFBSM" Wound Culture: Significant Imaging Results: POCT glucose meter Result Date: 02/21/2025 Performed by: [facility], [address] [place] [id number] CLIA ID: [id number] CT cervical spine wo IV contrast Result Date: 02/21/2025 Patient Name: DOUGLAS CALLAWAY : 1955 Exam Date/Time: 02/20/2025 17:07 Procedure: CT CERVICAL SPINE WO IV CONTRAST Ordering Provider: RAMIREZ NATHAN Reason For Exam: fu sp mech fall from standin (more content not included)... [facility] 02-21-2025 Consult note Associated Order (s): IP CONSULT TO GERIATRICS [facility] Geriatric Medicine Inpatient Consult Service [...] it doesn't support him at times and "gives way". Feels balance is worse when he closes [...] spasms Advance Care Planning Healthcare Power of Physician Liaison: Yes, Financial Power of Physician Liaison: Yes, Living Will:Yes Code Status: Full Code [...] (97.8 F) (Temporal) Resp 15 Ht 5' 8" (1.727 m) Wt 160 lb 4.4 oz [...] - 100 mg/dL No results found for: "TSH" No components found for: "B12" No results found for: "VITD25" Reviewed: active problem list, medication list, social history, notes from last several encounters, lab results, imaging Follow-up: matthewn KHARI Pantoja CNP 02/21/25 9:10 AM [1] [...] Oral, q4h PRN, Kaylen Ochoa APRN - CASKET UPHOLSTERER polyethylene glycol (PEG) 3350 (Miralax) packet 17 g, 17 g, Oral, Daily PRN, Elba Thomas MD primidone (Mysoline) tablet 50 mg, 50 mg, Oral, Nightly, Elba Thomas MD, 50 mg at 02/20/252027 rosuvastatin (Crestor) tablet 10 mg, 10 mg, Oral, Nightly, Elba Thomas MD, 10 mg at 02/20/252027 sennosides (Senokot) tablet 8.6 mg, 1 tablet, Oral, Nightly, Kaylen Ochoa APRN - CASKET UPHOLSTERER sodium chloride 0.9 % infusion, 75 mL/hr, [...] disease Father Heart disease Mother Cancer Father [facility] [employer] Work Phone: 02-21-2025 Hospital Discharge instructions KHARI [...] the following behavioral health agencies for support: [facility] [address] [place] [address] [id number] [facility] Psychiatry and Behavioral Health [address] [place] [address]. [address], [place] [address] [facility] [address], [place] [id number] [facility] [address] [facility] [place] [address] Should you be out of the [facility] area, you can use this resource to locate local mental health agencies: [facility] Victim Assistance Program- provides resources and support to victims of violent crimes, offers victim advocates for those involved in legal proceedings [phone] Should you need immediate help in coping with symptoms or should you feel at risk of harming yourself or others, please use the following crisis resources: Crisis Hotline: 826 Crisis Text Helpine: Text "4HOPE" to 743617 Call 911 or go to your nearest [...] more information on Fall Prevention strategies . el@[facility] hospitalRentMYinstrument.com.org or call #734.607.3395. The following attachments cannot be sent through Care Everywhere.Intracerebral Hemorrhage Discharge Instructions (Rwandan)Getting Up From a Fall (Rwandan)Preventing Falls in Older Adults (Rwandan)documented in this encounter [facility] 02-21-2025 Consult note Associated Order (s): IP [...] aspirin at home. He was evaluated at [facility] and there was concern for intracranial blood. [...] and imaging and preparation of this note [employer] Phone: 02-20-2025 Note ---- Attestation signed by [...] arrival as a direct TICU admission from [facility] HPI: 69 y.o. male on ASA [...] with NS 125cc/H - Zofran PRN - DISTRIBUTION LINEMAN consulted - Home protonix - Daily BMP, [...] Surgery Division of Trauma Department of Surgery [facility] [1] Patient Active Problem List Diagnosis Hyperglycemia CAD, multiple vessel S/P CABG x 3 Fall Intraventricular hemorrhage (HCC) Intracranial hemorrhage (HCC) ---- [facility] Trauma H&P 02/21/2025 6:34 AM Trauma Attending: Dr. Holguin Level of Initial Activation: Direct Admit Upgraded: No To:N/A Mechanism of Injury: Fall Mechanical Mechanism of Arrival:Transfer from [facility] Chief Complaint: head pain History of Traumatic Injury: 69 y.o. male status post fall. The incident happened around this am on 02/20/2025 at [facility]. When the event happened the patient [...] Social History Socioecon (more content not included)... [facility] 02-20-2025 History and physical note Please [...] presentation as a direct TICU admission from [facility] I have evaluated the patient on [...] / Plan : - C-collar cleared in [facility] ED - q1h neuro checks - hold [...] Surgery Division of Trauma Department of Surgery [facility] [1] Patient Active Problem List Diagnosis Hyperglycemia CAD, multiple vessel S/P CABG x 3 Fall [facility] [employer] Work Phone: 02-20-2025 Note Please see full [...] presentation as a direct TICU admission from [facility] I have evaluated the patient on [...] / Plan : - C-collar cleared in [facility] ED - q1h neuro checks - hold [...] Surgery Division of Trauma Department of Surgery [facility] [1] Patient Active Problem List Diagnosis Hyperglycemia CAD, multiple vessel S/P CABG x 3 Fall [facility] 02-20-2025 History and physical note Please [...] presentation as a direct TICU admission from [facility] I have evaluated the patient on [...] / Plan : - C-collar cleared in [facility] ED - q1h neuro checks - hold [...] Surgery Division of Trauma Department of Surgery [facility] [1] Patient Active Problem List Diagnosis Hyperglycemia CAD, multiple vessel S/P CABG x 3 Fall documented in this encounter [facility] 01-18-2024 Note HNO ID: [id number] Author: KARLA CASTRO, PT, DPT Service: ? [...] 1644 Session Stop Time : 172 Karla Castro, PT, DPT [facility] 01-18-2024 History of Present illness Narrative Images from the original note were not included. Episode Visit Count: 18 Therapist That Will Accept/Oversee The Plan Of Care: Katyh Castro Start of Care Date: 08/11/23 Onset Date: 10/07/22 Plan of Care Certification Date: 12/18/23 Next Certification Due Date: 02/13/24 Patient Identified by Name and Date of : Yes REHABILITATION AND SPORTS THERAPY PHYSICAL THERAPY DISCONTINUANCE OF CARE PLAN OF CARE UPDATE: Assessment: Douglas Parksmee YANG demonstrates significant improvement in ambulation, functional strength, [...] Time : 1644 Session Stop Time : 1723 Karla Castro PT, DPT documented in this encounter [facility] 01-17-2024 Note HNO ID: [id number] Author: KARLA SAUER PA-C Service: ? Author Type: Physician Expense Analyst Type: Progress Notes Filed: 01/17/2024 15:11 Note [...] ; CABG x 3 EGD 08/2020 at [facility] EGD WITH BIOPSY(S) 05/13/2023 Dr. Fajardo ERCP STENT PLACEMENT BILIARY/PANCREATIC DUCT 09/02/2021 Dr Yarbrough GI TRANSIT AND PRES CARLEY WIRELESS CAPSULE W/INTERP 01/08/2021 Smart Pill-delayed gastric emptying; INCISIONAL BIOPSY SKIN SINGLE LESION biopsy of mass over right eye; benign LAPAROSCOPIC CHOLECYSTECTOMY 09/02/2021 PER ORAL PYLOROMYOTOMY (POP) PROCEDURE (COMP 86874) 06/11/2021 Dr. Bray REMV CATARACT EXTRACAP,INSERT LENS [...] No PHYSICAL EXA (more content not included)... [facility] 01-17-2024 History of Present illness Narrative GASTROENTEROLOGY PROGRESS NOTE OUTPATIENT FOLLOW UP HPI: I saw Douglas Callaway today for a follow up after his [...] ; CABG x 3 EGD 08/2020 at [facility] EGD WITH BIOPSY(S) 05/13/2023 Dr. Fajardo ERCP STENT PLACEMENT BILIARY/PANCREATIC DUCT 09/02/2021 Dr Yarbrough GI TRANSIT & PRES CARLEY WIRELESS CAPSULE W/INTERP 01/08/2021 Smart Pill-delayed gastric emptying; INCISIONAL BIOPSY SKIN SINGLE LESION biopsy of mass over right eye; benign LAPAROSCOPIC CHOLECYSTECTOMY 09/02/2021 PER ORAL PYLOROMYOTOMY (POP) PROCEDURE (COMP 20904) 06/11/2021 Dr. Tomy LARSON CATARACT EXTRACAP,INSERT LENS [...] which included preparing to see the patient, tsvx-vu-bcbo patient care, completing clinical documentation, counseling and educating the patient/family/caregiver, and ordering medications, tests, or procedures. documented in this encounter [facility] 01-10-2024 Note HNO ID: [id number] Author: MARÍA OROSCO PTA Service: ? Author Type: Medical Record Librarian Type: Progress Notes Filed: 01/10/2024 13:42 Note Text: Episode Visit Count: 17 Therapist That Will Accept/Oversee The Plan Of Care: Kathy Brauliosonmariana Start of Care Date: 08/11/23 Onset Date: [...] st L4. 6 min for AROM 2: 6" step ups 1 rail 5x each leg [...] 1136 Session Stop Time : 1215 María Orosco, [facility] 01-10-2024 History of Present illness Narrative [...] st L4. 6 min for AROM 2: 6" step ups 1 rail 5x each leg [...] María Orosco PTA documented in this encounter [facility] 01-06-2024 Note HNO ID: [id number] Author: KARLA CASTRO, PT, DPT Service: ? [...] He demonstrated improvements in tandem stance without GROCERY BUYER and CGA. Does tend to start speeding [...] Time : 1227 Karla Castro, PT, DPT [facility] 01-06-2024 History of Present illness Narrative Episode [...] He demonstrated improvements in tandem stance without GROCERY BUYER and CGA. Does tend to start speeding [...] Session Stop Time : 1227 Karla Castro PT DPShawn documented in this encounter [facility] 12-29-2023 Note HNO ID: [id number] Author: LAVONNE NAVA RN Service: ? Author Type: Registered Nurse Type: Nursing Progress Note Filed: 12/29/2023 12:49 Note Text: Physician at bedside to speak with patient and SO [facility] 12-29-2023 Note HNO ID: [id number] Author: LAVONNE NAVA RN Service: ? Author Type: Registered Nurse Type: Nursing Progress Note Filed: 12/29/2023 12:35 Note Text: Passing air [facility] 12-29-2023 Nurse Note Physician at bedside to speak with patient and SO [facility] 12-29-2023 Nurse Note Physician at bedside to speak with patient and SO Passing air documented in this encounter [facility] 12-29-2023 Nurse Note Passing air [facility] 12-29-2023 Note Formatting of this n ote might be different from the original. The patient received a copy of Colonoscopy discharge instructions that contain information for how to contact the physician who performed the procedure and when to seek medical care. [facility] 12-29-2023 Miscellaneous Notes The patient received a copy of Colonoscopy discharge instructions that contain information for how to contact the physician who performed the procedure and when to seek medical care. documented in this encounter [facility] 12-29-2023 History and physical note Endoscopy [...] ; CABG x 3 EGD 08/2020 at [facility] EGD WITH BIOPSY(S) 05/13/2023 Dr. Fajardo ERCP STENT PLACEMENT BILIARY/PANCREATIC DUCT 09/02/2021 Dr Yarbrough GI TRANSIT & PRES CARLEY WIRELESS CAPSULE W/INTERP 01/08/2021 Smart Pill-delayed gastric emptying; INCISIONAL BIOPSY SKIN SINGLE LESION biopsy of mass over right eye; benign LAPAROSCOPIC CHOLECYSTECTOMY 09/02/2021 PER ORAL PYLOROMYOTOMY (POP) PROCEDURE (COMP 10462) 06/11/2021 Dr. Bray REMV CATARACT EXTRACAP,INSERT LENS Bilateral 2015 SHOULDER SURGERY HX TONSILLECTOMY HX OBJECTIVE: PHYSICAL EXAM: VITALS: There were no vitals taken for this visit. General appearance: A&Ox3 Respiratory: Normal chest expansion. No audible wheezes. CVS: No shortness of breath, no extremity edema. Regular pulse. Plan: OK to proceed with endoscopy. SIGNATURE: Naima Lee MD PATIENT NAME: Douglas Callaway JR [facility] Work Phone: 12-29-2023 History and physical [...] diabetes mellitus (HCC) 2019 Iván Case PCP PAST SURGICAL HISTORY: PAST SURGICAL HISTORY Procedure Laterality Date COLONOSCOPY GEN ANES 09/2017 normal per patient CORONARY ART/GRFT ANGIO S&I 12/15/2019 [facility] ; CABG x 3 EGD 08/2020 at [facility] EGD WITH BIOPSY(S) 05/13/2023 Dr. Fajardo ERCP STENT PLACEMENT BILIARY/PANCREATIC DUCT 09/02/2021 Dr Yarbrough GI TRANSIT & PRES CARLEY WIRELESS CAPSULE W/INTERP 01/08/2021 Smart Pill-delayed gastric emptying; INCISIONAL BIOPSY SKIN SINGLE LESION biopsy of mass over right eye; benign LAPAROSCOPIC CHOLECYSTECTOMY 09/02/2021 PER ORAL PYLOROMYOTOMY (POP) PROCEDURE (COMP 09612) 06/11/2021 Dr. Bray REMV CATARACT EXTRACAP,INSERT LENS [...] Douglas Callaway JR documented in this encounter [facility] 12-15-2023 Note HNO ID: [id number] Author: ELBA SAMANIEGO, PT, DPT Service: ? [...] Patient to be seen for Therapeutic exercise (20540), Neuromuscular re-education (90024), Manual therapy (01755), Therapeutic activities (92930), Self-shelter management (70615), Gait Training (39991), Patient/Family/Caregiver Education PLAN FOR NEXT VISIT: 6 [...] safety. Billing Therapeutic (more content not included)... [facility] 12-15-2023 History of Present illness Narrative Images [...] Patient to be seen for Therapeutic exercise (96307), Neuromuscular re-education (80613), Manual therapy (30167), Therapeutic activities (21881), Self-shelter management (98967), Gait Training (23377), Patient/Family/Caregiver Education PLAN FOR NEXT VISIT: 6 [...] Session Stop Time : 1345 Elba Samaniego PT, DPT documented in this encounter [facility] 12-09-2023 Note HNO ID: [id number] Author: MARÍA OROSCO PTA Service: ? Author Type: Medical Record Librarian Type: Progress Notes Filed: 12/09/2023 14:25 Note [...] 1.2-1.4mph 6 min for increased endurance 2: 6" step ups w/ 1 rail 10x 3: 6" side step ups 5x each 1 rail [...] Stop Time : 1403 María Orosco PTA [facility] 12-09-2023 History of Present illness Narrative Program_ID:[id number] Access Code: [email or web address] URL: [email or web address] Date: 12-09-2023 Prepared By: Karla Castro Program Notes Add walking for 20 minutes a day when able Exercises - retirement administrator between chairs and working on turning in [...] 1.2-1.4mph 6 min for increased endurance 2: 6" step ups w/ 1 rail 10x 3: 6" side step ups 5x each 1 rail [...] María Orosco PTA documented in this encounter [facility] 12-02-2023 Note HNO ID: [id number] Author: ANNE MARIE TOMPKINS RT(R) Service: ? Author Type: Technologist Type: Progress [...] PATIENT PRESENTS WITH AN IMPLANTABLE OR ATTACHED PAPER MILL MANAGER: No RADIOLOGY DEPARTMENT: MR; Exam(s) Completed: Head: Routine Brain PERIPHERAL IV DATA: Not applicable SIGNED BY: RT Odalys(R) December 02, 2023 1:39 PM [facility] 11-29-2023 Note HNO ID: [id number] Author: MARÍA OROSCO PTA Service: ? Author Type: Medical Record Librarian Type: Progress Notes Filed: 11/29/2023 13:49 Note [...] stick 10x each 4: fwd/side step up 4" step 5x each Skilled Intervention: Skilled judgment [...] Session Stop Time : 1344 María Orosco [facility] 11-29-2023 History of Present illness Narrative Episode Visit Count: 13 Therapist That Will Accept/Oversee The Plan Of Care: Elba Samanigeo or Kathy Castro Start of Care Date: 08/11/23 Onset Date: 10/07/22 Plan of Care Certification Date: 11/07/23 Next Certification Due Date: 12/18/23 Patient Identified by Name and Date of : Yes REHABILITATION AND SPORTS THERAPY PHYSICAL THERAPY TREATMENT NOTE ASSESSMENT: Douglas Brianna ChaoCesia JR tolerated the session with no issues. He demonstrated improvements in slow november, able to single leg stance for 3 [...] stick 10x each 4: fwd/side step up 4" step 5x each Skilled Intervention: Skilled judgment [...] María Orosco PTA documented in this encounter [facility] 11-24-2023 Note HNO ID: [id number] Author: MARÍA OROSCO PTA Service: ? Author Type: Medical Record Librarian Type: Progress Notes Filed: 11/24/2023 18:50 Note Text: Episode Visit Count: 12 Therapist That Will Accept/Oversee The Plan Of Care: Kathy Pablo Start of Care Date: 08/11/23 Onset Date: [...] facilitated with verbal cuing. Neuromuscular Re-Education: 1: 6" alt step taps no support 10x 2: [...] Session Stop Time : 1751 María Orosco [facility] 11-24-2023 History of Present illness Narrative Episode Visit Count: 12 Therapist That Will Accept/Oversee The Plan Of Care: Elba Castro Kathy Start of Care Date: 08/11/23 Onset Date: [...] facilitated with verbal cuing. Neuromuscular Re-Education: 1: 6" alt step taps no support 10x 2: [...] María Orosco PTA documented in this encounter [facility] 11-18-2023 Note HNO ID: [id number] Author: KARLA CASTRO, PT, DPT Service: ? [...] Patient to be seen for Therapeutic exercise (74378), Neuromuscular re-education (12555), Manual therapy (82306), Therapeutic activities (71136), Self-shelter management (72589), Gait Training (32181), Patient/Family/Caregiver Education PLAN FOR NEXT VISIT: Work [...] belt utilized during (more content not included)... [facility] 11-18-2023 History of Present illness Narrative Images from the original note were not included. Episode Visit Count: 11 Therapist That Will Accept/Oversee The Plan Of Care: Elba Samaniego or Ktahy Castro Start of Care Date: 08/11/23 Onset [...] Patient to be seen for Therapeutic exercise (89587), Neuromuscular re-education (00187), Manual therapy (72868), Therapeutic activities (31539), Self-shelter management (28598), Gait Training (46785), Patient/Family/Caregiver Education PLAN FOR NEXT VISIT: Work [...] about goals and POC 3: squats at [employer] x 10 Skilled Intervention: Patient was educated [...] Stop Time : 1445 Karla Castro PT DPT documented in this encounter [facility] 11-15-2023 Miscellaneous Notes Surgery Checklist Type: colon Admission Type: outpatient Anesthesia: MAC Date: 12/29/2023 Arrival Time: 10:00am Surgery Time: 11:00am Location: [place] Spoke with patient- sending colon prep instruction through my chart Pravin Mukherjee documented in this encounter [facility] 11-11-2023 Note HNO ID: [id number] Author: MARÍA OROSCO PTA Service: ? Author Type: Medical Record Librarian Type: Progress Notes Filed: 11/11/2023 15:11 Note [...] 1: Nu step L5. 5 min 2: 6" step ups 1 hand support R/L 5x [...] Session Stop Time : 1358 María Orosco [facility] 11-11-2023 History of Present illness Narrative [...] 1: Nu step L5. 5 min 2: 6" step ups 1 hand support R/L 5x [...] María Orosco PTA documented in this encounter [facility] 11-11-2023 Miscellaneous Notes called pt left voice mail message asking the patient to call our office back to schedule colon Pravin Mukherjee documented in this encounter [facility] 11-08-2023 Miscellaneous Notes Per prev notes- [...] 2023 3:20 PM documented in this encounter [facility] 11-03-2023 Note HNO ID: [id number] Author: MARÍA OROSCO PTA Service: ? Author Type: Medical Record Librarian Type: Progress Notes Filed: 11/03/2023 14:09 Note [...] Brianna Callaway JR tolerated the session with expected muscle soreness. He demonstrated good tolerance to exercises, negotiated stairs well with cues for safety an increase use of cane for support. Good ability to catch self when walking against resistance on [place] machine. The patient will continue to benefit [...] abd vs green band 15x each 5: 6" step ups R/L 5x 6: 6" lateral step ups R/L 5x each Skilled [...] Session Stop Time : 1401 María Orosco [facility] 11-03-2023 History of Present illness Narrative [...] hashad multiple close calls with falling, but odalys du self. Several times on the stairs when [...] abd vs green band 15x each 5: 6" step ups R/L 5x 6: 6" lateral step ups R/L 5x each Skilled [...] María Orosco PTA documented in this encounter [facility] 10-28-2023 Note HNO ID: [id number] Author: MARÍA OROSCO PTA Service: ? Author Type: Medical Record Librarian Type: Progress Notes Filed: 10/28/2023 14:45 Note [...] Neuromuscular Re-Education: 1: alt step taps on 6" step no support- cues for alt arm swing for balance 2: R/L step overs foam roller 10x required 1 hand support when stepping over with left 3: up/down 6" step no support CGA 5x Skilled Intervention: [...] Session Stop Time : 1440 María Orosco [facility] 10-28-2023 History of Present illness Narrative Episode Visit Count: 8 Therapist That Will Accept/Oversee The Plan Of Care: Elba Samaniego or Kathy Castro Start of Care Date: 08/11/23 Onset Date: 10/07/22 Plan of Care Certification Date: 09/23/23 Next Certification Due Date: 11/07/23 Patient Identified by Name and Date of : Yes REHABILITATION AND SPORTS THERAPY PHYSICAL THERAPY TREATMENT NOTE ASSESSMENT: Douglas Reed Cesia JR tolerated the session with no issues. [...] Neuromuscular Re-Education: 1: alt step taps on 6" step no support- cues for alt arm swing for balance 2: R/L step overs foam roller 10x required 1 hand support when stepping over with left 3: up/down 6" step no support CGA 5x Skilled Intervention: [...] María Orosco PTA documented in this encounter [facility] 10-26-2023 Note HNO ID: [id number] Author: SHERYL BASSETT MD Service: ? Author [...] lb 4.4 oz) Height: 172.7 cm (5' 8") Physical Exam EXAM: NOSE: no erythema or [...] MEDICAL HISTORY Diagnosis Date Bipolar II disorder ([facility]) CAD (coronary artery disease) 12/2019 CABG x 3 Carotid artery occlusion with cerebral infarction ([facility]) pt denies this; CVA was secondary to HTN CVA (cerebral vascular accident) ([facility]) 2003 related to untreated HTN; no residual effects Depression Elevated LFTs Gastroparesis POP procedure 06/11/21 GERD (gastroesophageal reflux disease) Hepatitis A 09/2018 Resolved HTN (hypertension) Hyperlipemia Insomnia CABRERA (obstructive sleep apnea) does not currently have a CPAP Osteoporoses Renal insufficiency TIA (transient ischemic attack) prior to CVA in 2003, none since Type 2 diabetes mellitus ([facility]) 2018 Iván Case PCP Current Outpatient Medications Medication Sig Dispense Refill pantoprazole DR (PROTONIX) 40 mg tablet take 1 tablet by mouth twice a day 180 tablet 2 odtrqn-teryubfr-gfrkfle (CREON 36) 36,000-114,000- 180,000 unit delayed release capsule Take 2 caps by mouth 3 times daily with meals and 1 cap with each snack. Take 1st cap before meal starts and the 2nd cap skilled nursing through. 240 capsule 5 primidone (MYSOLINE) 50 [...] daily to BE TAKEN ALONG WITH 200 CA... (REFER TO PRESCRIPTION NOTES). lamoTRIgine ER (LAMICTAL [...] daily at bedt (more content not included)... [facility] 10-26-2023 History of Present illness Narrative [...] lb 4.4 oz) Height: 172.7 cm (5' 8") Physical Exam EXAM: NOSE: no erythema or [...] MEDICAL HISTORY Diagnosis Date Bipolar II disorder ([facility]) CAD (coronary artery disease) 12/2019 CABG x 3 Carotid artery occlusion with cerebral infarction ([facility]) pt denies this; CVA was secondary to HTN CVA (cerebral vascular accident) ([facility]) 2003 related to untreated HTN; no residual effects Depression Elevated LFTs Gastroparesis POP procedure 06/11/21 GERD (gastroesophageal reflux disease) Hepatitis A 09/2018 Resolved HTN (hypertension) Hyperlipemia Insomnia CABRERA (obstructive sleep apnea) does not currently have a CPAP Osteoporoses Renal insufficiency TIA (transient ischemic attack) prior to CVA in 2003, none since Type 2 diabetes mellitus ([facility]) 2018 Iván Case PCP Current Outpatient Medications Medication Sig Dispense Refill pantoprazole DR (PROTONIX) 40 mg tablet take 1 tablet by mouth twice a day 180 tablet 2 uptqof-qkdwdkev-gcpbvqp (CREON 36) 36,000-114,000- 180,000 unit delayed release capsule Take 2 caps by mouth 3 times daily with meals and 1 cap with each snack. Take 1st cap before meal starts and the 2nd cap skilled nursing through. 240 capsule 5 primidone (MYSOLINE) 50 [...] daily to BE TAKEN ALONG WITH 200 CA... (REFER TO PRESCRIPTION NOTES). lamoTRIgine ER (LAMICTAL [...] patient and /or family. Sheryl Bassett M.D. [facility] Neurological [place] Department of Neurology documented in this encounter [facility] 10-25-2023 Miscellaneous Notes Pharmacy interfaced requesting the following refill. Requested Prescriptions Pending Prescriptions Disp Refills pantoprazole DR (PROTONIX) 40 mg tablet [Pharmacy Med Name: PANTOPRAZOLE SOD DR 40 MG TAB] 180 tablet Sig: take 1 tablet by mouth twice a day Next Appointment: Visit date not found Patient Phone numbers: [phone] (home) Request is for script(s) to be escript to pharmacy. Alysia Whyte MA documented in this encounter [facility] 10-21-2023 Note HNO ID: [id number] Author: KARLA CASTRO, PT, DPT Service: ? [...] Patient to be seen for Therapeutic exercise (81511), Neuromuscular re-education (86383), Manual therapy (12484), Therapeutic activities (46300), Self-shelter management (38268), Gait Training (47283), Patient/Family/Caregiver Education PLAN FOR NEXT VISIT: leg [...] POC and goals (more content not included)... [facility] 10-21-2023 History of Present illness Narrative Summary: PT progress report Episode Visit Count: 7 Therapist That Will Accept/Oversee The Plan Of Care: Elba Samaniego or Kahty Castro Start of Care Date: 08/11/23 Onset [...] Patient to be seen for Therapeutic exercise (37423), Neuromuscular re-education (88589), Manual therapy (80521), Therapeutic activities (12504), Self-shelter management (89533), Gait Training (11799), Patient/Family/Caregiver Education PLAN FOR NEXT VISIT: leg [...] Time : 1141 Karla Castro PT, DPT Program_ID:[id number] Access Code: [email or web address] URL: [email or web address] Date: 10-21-2023 Prepared By: Karla Castro Program Notes Add walking for 20 minutes a day when able Exercises - retirement administrator between chairs and working on turning in [...] - 10 reps documented in this encounter [facility] 10-13-2023 Note HNO ID: [id number] Author: KARLA SAUER PA-C Service: ? Author Type: Physician Expense Analyst Type: Progress Notes Filed: 10/13/2023 14:04 Note [...] ; CABG x 3 EGD 08/2020 at [facility] EGD WITH BIOPSY(S) 05/13/2023 Dr. Fajardo ERCP STENT PLACEMENT BILIARY/PANCREATIC DUCT 09/02/2021 Dr Yarbrough GI TRANSIT AND PRES CARLEY WIRELESS CAPSULE W/INTERP 01/08/2021 Smart Pill-delayed gastric emptying; INCISIONAL BIOPSY SKIN SINGLE LESION biopsy of mass over right eye; benign LAPAROSCOPIC CHOLECYSTECTOMY 09/02/2021 PER ORAL PYLOROMYOTOMY (POP) PROCEDURE (COMP 50674) 06/11/2021 Dr. Tomy LARSON CATARACT EXTRACAP,INSERT LENS [...] 1 tablet by mouth twice a day tkjbhz-dqlnlacl-hjqpkxa (CREON 36) 36,000-114,000- 180,000 unit delayed release capsule Take 2 caps by mouth 3 times daily with meals and 1 cap with each snack. Take 1st cap before meal starts and the 2nd cap skilled nursing through. ondansetron (ZOFRAN) 4 mg tablet Take [...] daily to BE TAKEN ALONG WITH 200 CA... (REFER TO PRESCRIPTION NOTES). rosuvastatin (CRESTOR) 10 [...] (Patient not taki (more content not included)... [facility] 10-13-2023 History of Present illness Narrative [...] ; CABG x 3 EGD 08/2020 [facility] EGD WITH BIOPSY(S) 05/13/2023 Dr. Fajardo ERCP STENT PLACEMENT BILIARY/PANCREATIC DUCT 09/02/2021 Dr Yarbrough GI TRANSIT & PRES CARLEY WIRELESS CAPSULE W/INTERP 01/08/2021 Smart Pill-delayed gastric emptying; INCISIONAL BIOPSY SKIN SINGLE LESION biopsy of mass over right eye; benign LAPAROSCOPIC CHOLECYSTECTOMY 09/02/2021 PER ORAL PYLOROMYOTOMY (POP) PROCEDURE (COMP 37904) 06/11/2021 Dr. Bray REMV CATARACT EXTRACAP,INSERT LENS [...] 1 tablet by mouth twice a day mqhfty-aihlehog-etvaiiz (CREON 36) 36,000-114,000- 180,000 unit delayed release capsule Take 2 caps by mouth 3 times daily with meals and 1 cap with each snack. Take 1st cap before meal starts and the 2nd cap skilled nursing through. ondansetron (ZOFRAN) 4 mg tablet Take [...] daily to BE TAKEN ALONG WITH 200 CA... (REFER TO PRESCRIPTION NOTES). rosuvastatin (CRESTOR) 10 [...] EXAMINATION: BP 158/71 Pulse 73 Ht 5' 8" (1.73m) Wt 161 lb (73.0kg) BMI 24.49 kg/(m^2). GENERAL APPEARANCE: Well appearing, alert, in no acute distress, well-hydrated, well nourished. SKIN: Skin color, texture, turgor normal, no suspicious rashes or lesions. EYES: Anicteric sclera. Extraocular movements are intact. NECK: Supple, no adenopathy; thyroid symmetric, normal size, no bruits.\\ EXTREMITIES: No deformities, edema, skin discoloration, clubbing [...] give him a nurse ambassador sheet from [facility] to call to see if he qualifies [...] insufficiency - ICD9: 577.8, ICD10: K86.81 - [id number] 36,000-114,000-180,000 UNIT CAPSULE,DELAY REL Karla Sauer PA-C I spent a total of 30 minutes on the date of the service which included preparing to see the patient, uwmg-sd-hnhc patient care, completing clinical documentation, counseling and educating the patient/family/caregiver, and ordering medications, tests, or procedures. documented in this encounter [facility] 10-11-2023 Note HNO ID: [id number] Author: MARÍA OROSCO PTA Service: ? Author Type: Medical Record Librarian Type: Progress Notes Filed: 10/11/2023 17:35 Note [...] Douglas Callaway JR tolerated the session with . [...] Session Stop Time : 1547 María Orosco [facility] 10-11-2023 History of Present illness Narrative Program_ID:[id number] Access Code: [email or web address] URL: [email or web address] Date: 10-11-2023 Prepared By: Karla Castro Program Notes Exercises - retirement administrator between chairs and working on turning in [...] María Orosco PTA documented in this encounter [facility] 10-06-2023 Note HNO ID: [id number] Author: MARÍA OROSCO PTA Service: ? Author Type: Medical Record Librarian Type: Progress Notes Filed: 10/06/2023 16:19 Note [...] Nu step L5. 6min for neuropriming 2: 4" step ups fwd/side 5x each 3: 5x [...] 15ft x 3 4: alt step taps 4" step 10x Skilled Intervention: Skilled judgment used to assess appropriate program for balance and coordination activity. Education and demonstration for posture and positioning for tone management. Gait Trainin: 4" steps B rails reciprocally 3 x 2. [...] Session Stop Time : 1614 María Orosco [facility] 09-23-2023 Note HNO ID: [id number] Author: KARLA CASTRO, PT, DPT Service: ? [...] Patient to be seen for Therapeutic exercise (83745), Neuromuscular re-education (29768), Manual therapy (89562), Therapeutic activities (75758), Self-shelter management (85583), Gait Training (61812), Patient/Family/Caregiver Education PLAN FOR NEXT VISIT: right [...] Time : 1538 Karla Castro, PT, DPT [facility] 09-21-2023 Note HNO ID: [id number] Author: OLESYA VASQUEZ MD Service: ? 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 Chief Complaint Nasal bone fracture History of Present Illness Dougals Callaway JR is a 68 year old [...] ; CABG x 3 EGD 08/[facility] EGD WITH BIOPSY(S) 05/13/2023 Dr. Fajardo ERCP STENT PLACEMENT BILIARY/PANCREATIC DUCT 09/02/2021 Dr Yarbrough GI TRANSIT AND PRES CARLEY WIRELESS CAPSULE W/INTERP 01/08/2021 Smart Pill-delayed gastric emptying; INCISIONAL BIOPSY SKIN SINGLE LESION biopsy of mass over right eye; benign LAPAROSCOPIC CHOLECYSTECTOMY 09/02/2021 PER ORAL PYLOROMYOTOMY (POP) PROCEDURE (COMP 01996) 06/11/2021 Dr. Bray REMV CATARACT EXTRACAP,INSERT LENS Bilateral 2015 SHOULDER SURGERY HX TONSILLECTOMY HX FAMILY HISTORY [...] 1 tablet by mouth twice a day sckrgp-kzcurbms-exhmhgg (CREON 36) 36,000-114,000- 180,000 unit delayed release capsule Take 2 caps by mouth 3 times daily with meals and 1 cap with each snack. Take 1st cap before meal starts and the 2nd cap skilled nursing through. ondansetron (ZOFRAN) 4 mg tablet Take 1 tablet by mouth once daily as needed for nausea/vomiting (for nausea.). losartan (COZAAR) 50 mg tablet Take 1 tablet by mouth every afternoon. aspirin, enteric coated (JAILENE LOW DOSE ASPIRIN) 81 mg EC tablet Take by mouth. lamoTRIgine (LAMICTAL) 100 mg tablet take 1/2 tablet by mouth once daily to BE TAKEN ALONG WITH 200 CA... (REFER TO PRESCRIPTION NOTES). doxepin capsule 10 [...] 1 hour p (more content not included)... [facility] 09-16-2023 Note HNO ID: [id number] Author: ANNE MARIE COELHO RT(R) Service: Radiology [...] PERIPHERAL IV DATA: Not applicable SIGNED BY: Anne Marie Coelho, RT(R) September 16, 2023 5:05 PM [facility] 09-16-2023 Note HNO ID: [id number] Author: KARLA CASTRO PT, DPT Service: ? Author Type: Physical Therapist Type: Progress Notes Filed: 09/16/2023 15:37 Note Text: Pt fell in [facility] after checking in to the kiosk. Pt was bandaged and escorted to the ED. [facility] 09-16-2023 Note HNO ID: [id number] Author: GER DREW, RN Service: ? Author Type: Registered Nurse Type: Procedures Filed: 09/16/2023 16:42 Note Text: Patient checked in for physical therapy appointment in the 1C lobby, fell in the hallway of the [facility], 1st floor. He walked to the elevator and was assisted on the third floor by another patient to get help by the medical laboratory manager in pediatric cardiology. He was bleeding from [...] notified and present on 3rd floor of [facility]. Patient checked in and waiting to be seen in the ED, patients is aware. [facility] 08-23-2023 Miscellaneous Notes Called patient, left a message for patient to call us back.to schedule follow up physical therapy and an Occupational Therapy evaluation. Images from the original note were not included. Contacted patient per staff message below: Elba Samaniego, PT, DPShawn Reynoso Pt/Ot/Speech Clerical Pool Can we call to schedule pt eval for Ot with viviana Left a voice mail to call [phone] and ask for therapy to schedule an appointment. Sent 7digital message documented in this encounter [facility] 08-19-2023 Note HNO ID: [id number] Author: Karla Castro, PT, DPT Service: ? Author Type: Physical [...] Time : 1800 Karla Castro PT, DPT [facility] 08-19-2023 History of Present illness Narrative Program_ID:[id number] Access Code: [email or web address] URL: [email or web address]/ Date: 08-19-2023 Prepared By: Karla Castro Program Notes Exercises - retirement administrator between chairs and working on turning in [...] Castro PT, DPT documented in this encounter [facility] 08-12-2023 Note HNO ID: [id number] Author: Cindy Ryan DO Service: ? Author [...] of Care Visit completed when applicable. Jesús PerdomoT Cindy Ryan DO Staff Neurologist [facility] Neurologic [place] [facility] 08-12-2023 History of Present illness [...] Care Visit completed when applicable. Jesús Perdomo [facility] Cindy Ryan DO Staff Neurologist [facility] documented in this encounter [facility] 08-11-2023 Note HNO ID: [id number] Author: Elba Samaniego, PT, DPT Service: ? 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 Author Type: Physician Type: [...] 46 SpO2: 97% Height: 172.7 cm (5' 8") Physical Exam EXAM: NOSE: no erythema or [...] MEDICAL HISTORY Diagnosis Date Bipolar II disorder ([facility]) CAD (coronary artery disease) 12/2019 CABG x 3 Carotid artery occlusion with cerebral infarction ([facility]) pt denies this; CVA was secondary to HTN CVA (cerebral vascular accident) ([facility]) 2003 related to untreated HTN; no residual effects Depression Elevated LFTs Gastroparesis POP procedure 06/11/21 GERD (gastroesophageal reflux disease) Hepatitis A 09/2018 Resolved HTN (hypertension) Hyperlipemia Insomnia CABRERA (obstructive sleep apnea) does not currently have a CPAP Osteoporoses Renal insufficiency TIA (transient ischemic attack) prior to CVA in 2003, none since Type 2 diabetes mellitus ([facility]) 2018 Iván Case PCP Current [...] daily to BE TAKEN ALONG WITH 200 CA... (REFER TO PRESCRIPTION NOTES). rosuvastatin (CRESTOR) 10 [...] 8 hours i (more content not included)... [facility] 07-27-2023 Note HNO ID: [id number] Author: Ross Dimas MA Service: ? Author Type: Site Physician Type: Progress Notes Filed: 07/27/2023 5:18 PM Note Text: There is no data to display for this encounter [facility] 07-27-2023 History of Present illness Narrative July 27, 2023 New Patient Leg weakness Subjective HISTORY AND PHYSICAL Douglas J Cesia 68 year old man with weakness [...] 46 SpO2: 97% Height: 172.7 cm (5' 8") Physical Exam EXAM: NOSE: no erythema or [...] daily to BE TAKEN ALONG WITH 200 CA... (REFER TO PRESCRIPTION NOTES). rosuvastatin (CRESTOR) 10 [...] family. July 27, 2023 Sheryl Bassett M.D. [facility] Neurological [place] Department of Neurology There is no data to display for this encounter documented in this encounter [facility] 07-27-2023 Miscellaneous Notes Checked gisela and marcia patient not present at time of visit documented in this encounter [facility] 07-26-2023 Note HNO ID: [id number] Author: Karla Sauer PA-C Service: ? Author Type: Physician Expense Analyst Type: Progress Notes Filed: 07/26/2023 11:16 AM [...] Per Dr Bray: Today he reports a "resurgence" of symptoms - he endorses episodes of [...] daily to BE TAKEN ALONG WITH 200 CA... (REFER TO PRESCRIPTION NOTES). rosuvastatin (CRESTOR) 10 [...] ANES 09/2017 normal (more content not included)... [facility] 06-10-2023 Note HNO ID: [id number] Author: Germaine Bray MD Service: ? Author [...] unrelated to oral intake. The emesis is "watery with food particles in it" and occurs with "a particular fullness." He and his report he has new [...] after that visit. Today he reports a "resurgence" of symptoms - he endorses episodes of [...] ; CABG x 3 EGD 08/2020 [facility] EGD WITH BIOPSY(S) 05/13/2023 Dr. Fajardo ERCP STENT PLACEMENT BILIARY/PANCREATIC DUCT 09/02/2021 Dr Yarbrough GI TRANSIT AND PRES CARLEY WIRELESS CAPSULE W/INTERP 01/08/2021 Smart Pill-delayed gastric emptying; INCISIONAL BIOPSY SKIN SINGLE LESION biopsy of mass over right eye; benign LAPAROSCOPIC CHOLECYSTECTOMY 09/02/2021 PER ORAL PYLOROMYOTOMY (POP) PROCEDURE (COMP 09911) 06/11/2021 Dr. Bray REMV CATARACT EXTRACAP,INSERT LENS [...] % ophthalmic solutio (more content not included)... [facility] 05-13-2023 History and physical note HISTORY AND PHYSICAL EXAMINATION Patient: Douglas Callaway [...] ; CABG x 3 EGD 08/2020 at [facility] ERCP STENT PLACEMENT BILIARY/PANCREATIC DUCT 09/02/2021 Dr Yarbrough GI TRANSIT & PRES CARLEY WIRELESS CAPSULE W/INTERP 01/08/2021 Smart Pill-delayed gastric emptying; INCISIONAL BIOPSY SKIN SINGLE LESION biopsy of mass over right eye; benign LAPAROSCOPIC CHOLECYSTECTOMY 09/02/2021 PER ORAL PYLOROMYOTOMY (POP) PROCEDURE (COMP 04761) 06/11/2021 Dr. Tomy LARSON CATARACT EXTRACAP,INSERT LENS [...] EC tablet Take by mouth. Yes aspirin (JAILENE CHEWABLE ASPIRIN) 81 mg chewable [...] daily to BE TAKEN ALONG WITH 200 CA... (REFER TO PRESCRIPTION NOTES). 05/10/2023 rosuvastatin (CRESTOR) [...] 2020. Denies thyroid problems NEURO: Hx CVA 2003 no residual. Denies headaches, syncope, seizures, or [...] (Temporal) Resp 16 Ht 172.7 cm (5' 8") Wt 75.3 kg (166 lb) SpO2 98% [...] which included preparing to see the patient, [id number] patient care, completing clinical documentation, obtaining and/or reviewing separately obtained history, and performing a medically appropriate examination. SIGNATURE: Tiffany Ramey APRN.CNP PATIENT NAME: Douglas Callaway JR DATE: May 13, 2023 TIME: 7:27 AM PAGER/CONTACT #: documented in this encounter [facility] 05-13-2023 Surgical operation note OPERATIVE/PROCEDURE REPORT LOG ID: [id number] Surgery/Procedure Date: Incision/Procedure Start Time: 3:21 PM Incision Close/Procedure End Time: 3:27 PM Surgeon(s)/Proceduralist(s) and Expense Analyst(s): Surgeon(s) and Role: * Germaine Bray MD [...] PM PAGER/CONTACT #: documented in this encounter [facility] 04-22-2023 Note HNO ID: [id number] Author: Rowena Silvestre RT(R) Service: Nuclear Medicine [...] [address] PERFORMED: No IV SITE: [place] only - not applicable, oral or physician administered agents given to patient POST EXAM PIV STATUS: Not applicable PROCEDURE TYPE: NM GET: 1.1 mCi Tc99m SULFUR COLLOID was administered orally via 4 ounces of Egg Beaters,1 piece of toast, 1/2 ounce of jelly with 4 ounces of water orally ADMINISTRATION TIME: 07:50 PATIENT DISCHARGED TO: Ambulatory patient, left [place] department area. A Diagnostic radioactive procedure has taken place, with no further precautions necessary other than routine body substance precautions. More information regarding radiation safety can be found using this link: [email or web address]%20Medicine %[email or web address] SIGNATURE: RT Pratima(R) PATIENT NAME: Douglas Callaway JR DATE: April 22, 2023 TIME: 9:45 AM PAGER/CONTACT #: [facility] 04-22-2023 History of Present illness Narrative [...] 07:50 PATIENT DISCHARGED TO: Ambulatory patient, left [place] department area. A Diagnostic radioactive procedure has taken place, with no further precautions necessary other than routine body substance precautions. More information regarding radiation safety can be found using this link: [email or web address]% 20-%20Diagnostic%20Nuclear%20Medicine% 20Procedures.pdf SIGNATURE: ANGELIKA AndujarR) PATIENT NAME: Douglas Callaway JR DATE: April 22, 2023 TIME: 9:45 AM PAGER/CONTACT #: documented in this encounter [facility] 04-09-2023 Miscellaneous Notes I spoke with patient and scheduled EGD for 05/13/2023 @ 3:00 pm. Prep/instructions given verbally and mailed to the patient. Patient also scheduled for a follow up 06/10/2023. Spring Reilly MA Left voicemail for patient to call the office to schedule EGD then follow up in office. Spring Reilly MA documented in this encounter [facility] 04-08-2023 Note HNO ID: [id number] Author: Vianca Martinez RT(R) Service: ? Author Type: Global Sales Executive Type: Progress Notes Filed: 04/08/2023 3:37 PM [...] DATE: April 08, 2023 TIME: 3:37 PM [facility] 04-08-2023 History of Present illness Narrative [...] DEPARTMENT: CT; Exam(s) Completed: Abdomen/Pelvis SIGNATURE: RT Christine(Jesús) PATIENT NAME: Douglas Callaway JR DATE: April 08, 2023 TIME: 3:37 PM documented in this encounter [facility] 04-06-2023 Note HNO ID: [id number] Author: Germaine Bray MD Service: ? Author [...] after that visit. Today he reports a "resurgence" of symptoms - he endorses episodes of [...] ; CABG x 3 EGD 08/2020 at [facility] ERCP STENT PLACEMENT BILIARY/PANCREATIC DUCT 09/02/2021 Dr Yarbrough GI TRANSIT AND PRES CARLEY WIRELESS CAPSULE W/INTERP 01/08/2021 Smart Pill-delayed gastric emptying; INCISIONAL BIOPSY SKIN SINGLE LESION biopsy of mass over right eye; benign LAPAROSCOPIC CHOLECYSTECTOMY 09/02/2021 PER ORAL PYLOROMYOTOMY (POP) PROCEDURE (COMP 74171) 06/11/2021 Dr. Tomy LARSON CATARACT EXTRACAP,INSERT LENS [...] Take 1-2 t (more content not included)... [facility] 04-06-2023 History of Present illness Narrative [...] after that visit. Today he reports a "resurgence" of symptoms - he endorses episodes of [...] diabetes mellitus (HCC) 2019 Iván Case PCP PAST SURGICAL HISTORY: PAST SURGICAL HISTORY Procedure Laterality Date COLONOSCOPY GEN ANES 09/2017 normal per patient CORONARY ART/GRFT ANGIO S&I 12/15/2019 [facility] ; CABG x 3 EGD 08/2020 at [facility] ERCP STENT PLACEMENT BILIARY/PANCREATIC DUCT 09/02/2021 Dr Yarbrough GI TRANSIT & PRES CARLEY WIRELESS CAPSULE W/INTERP 01/08/2021 Smart Pill-delayed gastric emptying; INCISIONAL BIOPSY SKIN SINGLE LESION biopsy of mass over right eye; benign LAPAROSCOPIC CHOLECYSTECTOMY 09/02/2021 PER ORAL PYLOROMYOTOMY (POP) PROCEDURE (COMP 76874) 06/11/2021 Dr. Tomy LARSON CATARACT EXTRACAP,INSERT LENS [...] EXAM: BP 120/59 Pulse 43 Ht 5' 8" (1.73m) Wt 166 lb (75.3kg) BMI 25.25 [...] Medical Decision Making Level: 4 - Moderate \\ SIGNATURE: Germaine Bray MD PATIENT NAME: Douglas Callaway JR DATE: April 06, 2023 TIME: 12:33 PM PAGER/CONTACT #: [phone] documented in this encounter [facility] 06-11-2021 History of Past i llness Narrative Problem Noted Date Diagnosed Date Resolved Date Gastroparesis 06/11/2021 06/12/2021 documented as of this encounter (statuses as of 04/06/2023) [facility] History of Past illness Narrative* Problem Noted Date Diagnosed Date Resolved Date Gastroparesis 06/11/2021 06/12/2021 documented as of this encounter (statuses as of 04/09/2023) [facility] History of Past illness Narrative* Problem Noted Date Diagnosed Date Resolved Date Gastroparesis 06/11/2021 06/12/2021 documented as of this encounter (statuses as of 05/14/2023) [facility] History of Past illness Narrative* Problem Noted Date Diagnosed Date Resolved Date Gastroparesis 06/11/2021 06/12/2021 documented as of this encounter (statuses as of 07/12/2023) [facility] History of Past illness Narrative* Problem Noted Date Diagnosed Date Resolved Date Gastroparesis 06/11/2021 06/12/2021 documented as of this encounter (statuses as of 07/12/2023) [facility] History of Past illness Narrative* Problem Noted Date Diagnosed Date Resolved Date Gastroparesis 06/11/2021 06/12/2021 documented as of this encounter (statuses as of 07/28/2023) [facility] History of Past illness Narrative* Problem Noted Date Diagnosed Date Resolved Date Gastroparesis 06/11/2021 06/12/2021 documented as of this encounter (statuses as of 07/28/2023) [facility] History of Past illness Narrative* Problem Noted Date Diagnosed Date Resolved Date Gastroparesis 06/11/2021 06/12/2021 documented as of this encounter (statuses as of 08/12/2023) [facility] History of Past illness Narrative* Problem Noted Date Diagnosed Date Resolved Date Gastroparesis 06/11/2021 06/12/2021 documented as of this encounter (statuses as of 08/13/2023) [address]06-2021 History of Past illness Narrative* Problem Noted Date Diagnosed Date Resolved Date Gastroparesis 06/11/2021 06/12/2021 documented as of this encounter (statuses as of 08/20/2023) [facility] History of Past illness Narrative* Problem Noted Date Diagnosed Date Resolved Date Gastroparesis 06/11/2021 06/12/2021 documented as of this encounter (statuses as of 10/12/2023) [facility] History of Past illness Narrative* Problem Noted Date Diagnosed Date Resolved Date Gastroparesis 06/11/2021 06/12/2021 documented as of this encounter (statuses as of 10/14/2023) [facility] History of Past illness Narrative* Problem Noted Date Diagnosed Date Resolved Date Gastroparesis 06/11/2021 06/12/2021 documented as of this encounter (statuses as of 10/21/2023) [facility] History of Past illness Narrative* Problem Noted Date Diagnosed Date Resolved Date Gastroparesis 06/11/2021 06/12/2021 documented as of this encounter (statuses as of 10/25/2023) [facility] History of Past illness Narrative* Problem Noted Date Diagnosed Date Resolved Date Gastroparesis 06/11/2021 06/12/2021 documented as of this encounter (statuses as of 10/28/2023) [facility] History of Past illness Narrative* Problem Noted Date Diagnosed Date Resolved Date Gastroparesis 06/11/2021 06/12/2021 documented as of this encounter (statuses as of 11/04/2023) [facility] History of Past illness Narrative* Problem Noted Date Diagnosed Date Resolved Date Gastroparesis 06/11/2021 06/12/2021 documented as of this encounter (statuses as of 11/08/2023) [facility] History of Past illness Narrative* Problem Noted Date Diagnosed Date Resolved Date Gastroparesis 06/11/2021 06/12/2021 documented as of this encounter (statuses as of 11/11/2023) [facility] History of Past illness Narrative* Problem Noted Date Diagnosed Date Resolved Date Gastroparesis 06/11/2021 06/12/2021 documented as of this encounter (statuses as of 11/11/2023) [facility] History of Past illness Narrative* Problem Noted Date Diagnosed Date Resolved Date Gastroparesis 06/11/2021 06/12/2021 documented as of this encounter (statuses as of 11/13/2023) [facility] History of Past illness Narrative* Problem Noted Date Diagnosed Date Resolved Date Gastroparesis 06/11/2021 06/12/2021 documented as of this encounter (statuses as of 11/15/2023) [facility] History of Past illness Narrative* Problem Noted Date Diagnosed Date Resolved Date Gastroparesis 06/11/2021 06/12/2021 documented as of this encounter (statuses as of 11/16/2023) [facility] History of Past illness Narrative* Problem Noted Date Diagnosed Date Resolved Date Gastroparesis 06/11/2021 06/12/2021 documented as of this encounter (statuses as of 11/18/2023) [facility] History of Past illness Narrative* Problem Noted Date Diagnosed Date Resolved Date Gastroparesis 06/11/2021 06/12/2021 documented as of this encounter (statuses as of 11/25/2023) [facility] History of Past illness Narrative* Problem Noted Date Diagnosed Date Resolved Date Gastroparesis 06/11/2021 06/12/2021 documented as of this encounter (statuses as of 11/29/2023) [facility] History of Past illness Narrative* Problem Noted Date Diagnosed Date Resolved Date Gastroparesis 06/11/2021 06/12/2021 documented as of this encounter (statuses as of 12/10/2023) [facility] History of Past illness Narrative* Problem Noted Date Diagnosed Date Resolved Date Gastroparesis 06/11/2021 06/12/2021 documented as of this encounter (statuses as of 12/16/2023) [facility] History of Past illness Narrative* Problem Noted Date Diagnosed Date Resolved Date Gastroparesis 06/11/2021 06/12/2021 documented as of this encounter (statuses as of 12/23/2023) [facility]04[facility] Evaluation note* Diagnosis Onset Date Resolution Status Atherosclerosis of coronary artery of [place] heart without angina pectoris chronic Essential hypertension chron ic Hyperlipidemia chronic H/O coronary artery bypass surgery December 15, 2019 resolved [facility] Work Phone: Evaluation noteThere may be information available, but it has not been provided by the sender.[facility] Work Phone: Evaluation note* Diagnosis Onset Date Resolution Status Bile leak, postoperative res olved S/P ERCP resolved [facility] Work Phone: Evaluation noteNo assessment information available [facility] Work Phone: Evaluation note* Diagnosis Onset Date Resolution Status Bile leak acute Gastroparesis acute Acute gallstone pancreatitis resolved [facility] Work Phone: Evaluation note* Diagnosis Nausea- Primary Nausea alone Gastroparesis Heartburn documented in this encounter [facility] note* Diagnosis Preop examination Preoperative examination, unspecified Primary hypertension Unspecified essential hypertension Diabetes mellitus without complication (HCC) Type II or unspecified type diabetes mellitus without mention of complication, not stated as uncontrolled CABRERA (obstructive sleep apnea) Obstructive sleep apnea (adult) (pediatric) Gastroparesis Heartburn documented in this encounter [facility] note* Diagnosis Nausea Nausea alone documented in this encounter [facility] note* Diagnosis Weakness of both lower extremities documented in this encounter [facility] note* Diagnosis Radiculopathy, lumbosacral region- Primary Thoracic or lumbosacral neuritis or radiculitis, unspecified Weakness of both lower extremities documented in this encounter [facility] note* Diagnosis Abnormality of gait- Primary Weakness of both lower extremities Imbalance Abnormality of gait documented in this encounter [facility] note* Diagnosis Diabetes mellitus without complication (HCC)- Primary Type II or unspecified type diabetes mellitus without mention of complication, not stated as uncontrolled Weakness of both lower extremities Abnormality of gait Imbalance Abnormality of gait documented in this encounter [facility] note* Diagnosis Diabetes mellitus without complication (HCC)- Primary Type II or unspecified type diabetes mellitus without mention of complication, not stated as uncontrolled Weakness of both lower extremities Abnormality of gait Imbalance Abnormality of gait documented in this encounter [facility] note* Diagnosis Postprocedural leakage from bile duct Diarrhea, unspecified type Exocrine pancreatic insufficiency Other specified disease of pancreas documented in this encounter [facility] note* Diagnosis Diabetes mellitus without complication (HCC)- Primary Type II or unspecified type diabetes mellitus without mention of complication, not stated as uncontrolled Weakness of both lower extremities Abnormality of gait Imbalance Abnormality of gait documented in this encounter [facility] note* Diagnosis Diabetes mellitus without complication (HCC)- Primary Type II or unspecified type diabetes mellitus without mention of complication, not stated as uncontrolled Weakness of both lower extremities Abnormality of gait Imbalance Abnormality of gait documented in this encounter [facility] note* Diagnosis Diabetes mellitus without complication (HCC)- Primary Type II or unspecified type diabetes mellitus without mention of complication, not stated as uncontrolled Weakness of both lower extremities Abnormality of gait Imbalance Abnormality of gait documented in this encounter [facility] note* Diagnosis Abnormality of gait due to impairment of balance- Primary Transient cerebral ischemia, unspecified type documented in this encounter [facility] note* Diagnosis Diabetes mellitus without complication (HCC)- Primary Type II or unspecified type diabetes mellitus without mention of complication, not stated as uncontrolled Weakness of both lower extremities Abnormality of gait Imbalance Abnormality of gait documented in this encounter [facility] note* Diagnosis Diabetes mellitus without complication (HCC)- Primary Type II or unspecified type diabetes mellitus without mention of complication, not stated as uncontrolled Weakness of both lower extremities Abnormality of gait Imbalance Abnormality of gait documented in this encounter [facility] note* Diagnosis Diabetes mellitus without complication (HCC)- Primary Type II or unspecified type diabetes mellitus without mention of complication, not stated as uncontrolled Weakness of both lower extremities Abnormality of gait Imbalance Abnormality of gait Abnormality of gait due to impairment of balance documented in this encounter [facility] note* Diagnosis Exocrine pancreatic insufficiency- Primary Other specified disease of pancreas Nausea and vomiting, unspecified vomiting type Abnormality of gait due to impairment of balance documented in this encounter [facility] note* Diagnosis Diabetes mellitus without complication (HCC)- Primary Type II or unspecified type diabetes mellitus without mention of complication, not stated as uncontrolled Abnormality of gait due to impairment of balance Weakness of both lower extremities Abnormality of gait Imbalance Abnormality of gait [facility] [place]* Diagnosis Preop examination Preoperative examination, unspecified Primary hypertension Unspecified essential hypertension Diabetes mellitus without complication (HCC) Type II or unspecified type diabetes mellitus without mention of complication, not stated as uncontrolled CABRERA (obstructive sleep apnea) Obstructive sleep apnea (adult) (pediatric) Gastroparesis Heartburn Diarrhea, unspecified type [facility] Diagnosis Intracranial hemorrhage (HCC)- Primary Unspecified intracranial hemorrhage Intracranial hemorrhage (HCC) Unspecified intracranial hemorrhage Fall Unspecified fall Intraventricular hemorrhage (HCC) [facility] available.[facility] Work Phone: Reason for referral (narrative)* Outpatient Procedure (Routine) - Closed Specialty Diagnoses / Procedures Referred By Gali blake Referred To Contact [facility] Diagnoses Gastroparesis Heartburn Procedures EGD DIAGNOSTIC EGD DIAGNOSTIC ESOPHAGOGASTRODUODENOSC OPY TRANSORAL DIAGNOSTIC Germaine Bray MD 1 Keep Me Certified [facility] [employer] [address] [facility] [address] [place] [address] Referral ID Status Reason Start Date Expiration Date V isits Requested Visits Authorized [id number] Closed Auto-Generate d Referral 04/06/2023 04/06/2024 1 1 [facility] for referral (narrative)* Diagnostic Procedure Only (Routine) - Closed Specialty Diagnoses / Procedures Referred By Gali blake Referred To Contact MOLECULAR & FUNCTIONAL IMAGING Diagnoses Nausea Procedures NM GASTRIC EMPTYING SOLID GASTRIC EMPTYING STUDY Germaine Bray MD [address] [employer] [address] [address] Molecular & Functional Imaging [address] [place] [address] Referral ID Status Reason Start Date Expiration Date V isits Requested Visits Authorized [id number] Closed Auto-Generate d Referral 04/06/2023 05/05/2024 1 1 [facility] for referral (narrative)* Outpatient Procedure (Routine) - Authorized Specialty Diagnoses / Procedures Referred By Gali blake Referred To Contact [facility] Diagnoses Weakness of both lower extremities Procedures EMG(NEURO/NI) NERVE CONDUCTION STUDIES 9-10 STUDIES Sheryl Bassett MD [address] [place] [address] Neurological [facility] [address] [place], [place] [id number] Referral ID Status Reason Start Date Expiration Date Visits Requested Visits Authorized [id number] Authorized Auto-Generat ed Referral 3 07/27/2024 1 1 * Physical Therapy (Routine) - Authorized Specialty Diagnoses / Procedures Referred By Gali blake Referred To Contact [facility] Diagnoses Weakness of both lower extremities Procedures CONSULT TO PHYSICAL THERAPY PHYSICAL THERAPY EVALUATION HIGH COMPLEX 45 MINS Sheryl Bassett MD [address] [place] [address] [facility] [place] [address] Referral ID Status Reason Start Date Expiration Date Visits Requested Visits Authorized [id number] Authorized PCP Requested Referral Auto-Generate d Referral 3 07/26/2024 99 99 [facility] for referral (narrative)* Outpatient Procedure (Routine) - Closed Specialty Diagnoses / Procedures Referred By Gali blake Referred To Contact [facility] Diagnoses Diarrhea, unspecified type Procedures COLONOSCOPY DIAGNOSTIC COLONOSCOPY FLX DX W/COLLJ SPEC WHEN PFRMD Karla Sauer PA-C [address] [place] [address] [facility] [place] [id number] Referral ID Status Reason Start Date Expiration Date V isits Requested Visits Authorized [id number] Closed Auto-Generate d Referral 11/10/2023 11/09/2024 1 1 [facility] for visit Narrative* Outpatient Procedure (Routine) - Closed Specialty Diagnoses / Procedures Referred By Gali blkae Referred To Contact [facility] Diagnoses Gastroparesis Heartburn Procedures EGD DIAGNOSTIC EGD DIAGNOSTIC ESOPHAGOGASTRODUODENOSC OPY TRANSORAL DIAGNOSTIC Germaine Bray MD [address] [address] [facility] [address] [place] [address] Referral ID Status Reason Start Date Expiration Date V isits Requested Visits Authorized [id number] Closed Auto-Generate d Referral 04/06/2023 04/06/2024 1 1 [facility] for visit Narrative* Outpatient Procedure (Routine) - Closed Specialty Diagnoses / Procedures Referred By Gali blake Referred To Contact [facility] Diagnoses Diarrhea, unspecified type Procedures COLONOSCOPY DIAGNOSTIC COLONOSCOPY FLX DX W/COLLJ SPEC WHEN PFRMD Karla Sauer PA-C [address] [place] [address] [address] Referral ID Status Reason Start Date Expiration Date V isits Requested Visits Authorized [id number] Closed Auto-Generate d Referral 11/10/2023 11/09/2024 1 1 [facility] for visit Narrative* Auth/Cert (Routine) Specialty Diagnoses / Procedures Referred By Gali blake Referred To Contact Diagnoses fall Procedures .. Iban Ramirez MD [address] [place] [address] [address] [place] [address] Phone: tel: fax: [facility] Surgical Trauma Neuro Intensive Care Unit STN ICU T2 [address] [place] [address] Phone: tel: Referral ID Status Reason Start Date Expiration Date Visits Re quested Visits Authorized [id number] 1 1 [facility] Health Summary Purpose Family History No Family History Records Found Relationship Condition Age at Onset Recorded Date/T alexia father Malignant neoplasm of colon Unknown Coronary artery disease Unknown mother Gastric ulcer Unknown Presence of cardiac pacemaker Unknown Fibrosis of lung Unknown Cardiac disease Unknown Advance Directives No Advanced Directives Records FoundDocuments on File Type Date 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 Advance Directives and Living Will Power of Physician Liaison Latest Code Status on File Code Status Date Activated Date Inactivated Comments Full Code 12/15/2019 12:55 PM Full Code 12/15/2019 5:48 AM 12/15/2019 9:53 AM Advance Directive Response Recorded Date/ Time Advance Directives No November 19 9:18am Living Will Yes September 01 9:52am Power of Physician Liaison Yes September 01, 2021 9:52am Advance Directive Response Recorded Date/ Time Advance Directives No November 19 9:18am Living Will Yes January 19, 2022 1 2:19pm Power of Physician Liaison Yes January 19, 2022 12:19pm Advance Directive Response Recorded Date/ Time Name of Medical Power of Physician Liaison on file, TIMA Callaway January 19, 2022 12:19pm Advance Directives No November 19 9:18am Living Will Yes January 30, 2022 9 :04pm Power of Physician Liaison Yes January 30, 2022 9:04pm Advance Directive Response Recorded Date/ Time Advance Directives No November 19 9:18am Living Will Yes January 30, 2022 9 :04pm Power of Physician Liaison Yes January 30, 2022 9:04pm Advance Directive Response Recorded Date/ Time Advance Directives No November 19 8:18am Living Will Yes January 30, 2022 8 :04pm Power of Physician Liaison Yes January 30, 2022 8:04pm Documents on File Type Date Recorded 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 : 1955 Age: 64 y.o. ADMIT DATE: 12/15/2019 DISCHARGE DATE: 12/20/2019 DISCHARGING SURGEON: Colton Marroquin MD Office Number: [phone] PRIMARY CARE PHYSICIAN: Neo Tian MD VISIT STATUS: Admission CODE STATUS: Full Code DISCHARGE DIAGNOSES: Active Problems: CAD in [place] artery CAD, multiple vessel Hyperglycemia S/P CABG [...] and cardiac catheterization completed on 11/20/19 at [facility] revealed occluded mid LAD, 80% 1st diagonal lesion and 75% 2nd Diagonal and based upon his presentation and comorbidities it was felt that (more content not included)... Assessments Diagnosis Dizziness Dizziness and giddiness Diagnosis CAD, multiple vessel Coronary atherosclerosis of unspecified type of vessel, [place] or graft Preoperative examination Preoperative examination, unspecified Diagnosis S/P CABG x 3 Postsurgical aortocoronary bypass status CAD in [place] artery Coronary atherosclerosis of [place] coronary artery CAD, multiple vessel Coronary atherosclerosis of unspecified type of vessel, [place] or graft Hyperglycemia Other abnormal glucose Discharge Instructions * Discharge Instr - Lab* Stella RoySTEFANIE - 12/16/2019 3:12 PM EDT Your physician has ordered skilled home care services for you. Your home care will be provided by: [facility] [phone] Scheduling [phone] * Additional Instructions* Jarocho Ambrocio APRN - SAS CLINICAL PROGRAMMER - 12/19/2019 [facility]: Cardiothoracic Surgery [address] [facility] #[phone] Notify us if the following occur - [...] blood glucose(sugar) levels. -Call endocrine clinic at [phone] in one week to review sugar log. -Recommend blood glucose (sugar) stay below 150. Call lining feller blindstitch office if levels frequently over 180. * Attachments The following attachments cannot be sent through Care Everywhere. * Coronary Artery Bypass Graft: Post-op (Rwandan) documented in this encounter History of Present [...] 12/20/2019 10:32 AM EDT Occupational Therapy Facility/Department: [facility] Daily Treatment Note [...] x 3. A diagnosis of CAD in wichita artery was also pertinent to this visit. [...] surgical history that includes Cataract removal; Tonsillectomy; [place] tooth extraction;and Colonoscopy. Restrictions Restrictions/Precautions Restrictions/Precautions: Cardiac, [...] Minutes(ther act-1) MARIOLA Smith * Sarah Teresa, KHARI - CASKET UPHOLSTERER - 12/20/2019 10:16 AM EDT ENDOCRINOLOGY PROGRESS NOTE Patient: Douglas Callaway Jr. Unit/Bed:[id number] Date of : 1955 Admit date: 12/15/2019 [...] (audio communication) [] Video enabled device (using Cl[employer]) [] Couldn't directly talk to the patient Reviewed the following: [x] Primary team note [x] Other teamcenter consultant(s) note(s) [x] Relevant LAB results [x] [...] Has good appetite and no complaints. Ate yoruba toast for BF. Relieved by: insulin given [...] (36.6 C) (Oral) Resp 18 Ht 5' 8" (1.727 m) Wt171 lb 1.6 oz (77.6 [...] to preserve PPE for other caregivers, a qrve-ec-vjmn encounter with the patient was not performed. [...] sugars. He should call our clinic at [phone] in one week to review his sugar [...] issues overnight Subjective: Resting in bed. States "ready to get out of here" Objective: Vitals: Temp (24hrs), Av.8 F (36.6 C), Min:97.5 F (36.4 C), Max:98.2 F (36.8 C) BP (!) 145/82 Pulse 104 Temp 97.7 F (36.5 C) (Oral) Resp 18 Ht 5' 8" (1.727 m) Wt 171 lb 1.6 oz (77.6 kg) SpO2 95% BMI 26.02 kg/m I/O: Date 12/20/19 0000 - 12/20/19 2359 Shift 6103-3921 7256-0465 0626-2050 24 Hour Total INTAKE P.O. 750 750 [...] CBC: Recent Labs 12/18/19 0325 12/19/19 0017 12/19/19 1312 12/20/19 0040 WBC 9.5 7.5 -- 7.9 [...] surgery 12/12/19 Yes Alicia Carroll APRN - CASKET UPHOLSTERER dorzolamide-timolol (COSOPT) 22.3-6.8 MG/ML ophthalmic solution Place [...] gms)/meal Problem List: Active Problems: CAD in [place] artery CAD, multiple vessel Hyperglycemia S/P CABG [...] Bell RCP - 12/19/2019 10:10 PM EDT [facility] Respiratory Care Department Progress Note Patient [...] mind regarding wearing PAP to hit their "call light" or inform their nurse to contact Respiratory. [...] the care of this patient, * Sarah Teresa, GLOVE TAGGER - CASKET UPHOLSTERER - 12/19/2019 12:25 PM EDT ENDOCRINOLOGY PROGRESS NOTE Patient: Douglas Callaway Jr. Unit/Bed:[id number] Date of : 1955 Admit date: 12/15/2019 [...] (audio communication) [] Video enabled device (using [employer]) [x] Couldn't directly talk to the patient because sleeping while getting PRBC infusion Reviewed the following: [x] Primary team note [x] Other teamcenter consultant(s) note(s) [x] Relevant LAB results [x] [...] F (36.7 C) Resp 18 Ht 5' 8" (1.727 m) Wt 182 lb 1.6 oz(82.6 [...] to preserve PPE for other caregivers, a lfoa-pk-rjtj encounter with the patient was not performed. That being said, all relevant records and diagnostic tests were reviewed, including laboratory results and imaging. Please reference any relevant documentation elsewhere. Care will be coordinated with the primary service. Assessment: Type 2 DM with stress hyperglycemia without terminal block assembler insulin use S/p cabg Plan: Recommendations/Changes As [...] Virtual visit is appropriate. * Chata Mckenzie, LOCKSMITH - 12/19/2019 11:14 AM EDT Physical Therapy Facility/Department: [facility] Daily Treatment Note NAME: Douglas Callaway JrJoann : 1955 Date of Service: 12/19/2019 Discharge [...] surgical history that includes Cataract removal; Tonsillectomy; [place] tooth extraction;and Colonoscopy. Restrictions Restrictions/Precautions Restrictions/Precautions: Cardiac, [...] toilet) Chata Mckenzie PTA * Alicia Carroll, KHARI - CASKET UPHOLSTERER - 12/19/2019 4:44 AM EDT Cardiothoracic Surgery [...] (36.5 C) (Oral) Resp 18 Ht 5' 8" (1.727 m) Wt 182 lb 1.6 oz [...] mouth daily Historical Provider, * Chata Mckenzie LOCKSMITH - 12/18/2019 2:48 PM EDT Physical Therapy Facility/Department: [facility] Daily Treatment Note NAME: oDuglas Callaway Jr. : 1955 Date of Service: [...] surgical history that includes Cataract removal; Tonsillectomy; [place] tooth extraction;and Colonoscopy. Restrictions Restrictions/Precautions Restrictions/Precautions: Cardiac, [...] Functional Limits Cognition Cognition Overall Cognitive Status: [facility] Cognition Comment: ID's , age, president and 911, 11/06 word recall afetr 1 min. Pt able [...] Yes Ambulation 1 Surface: level tile Device: (NezzuberVU) Assistance: Stand by assistance Distance: 250 feet [...] Timed Code Treatment Minutes: (GT, TP) Chata Mckenzie, LOCKSMITH * Alicia Carroll APRN - CNP - 12/18/2019 2:04 PM EDT Cardiothoracic Surgery Interval Note 12/18/2019 Patient:Douglas Callaway Jr. (1955, 64 y.o., male) Vitals: BP 125/79 Pulse 106 Temp 98.8 F (37.1 C) Resp 18 Ht 5' 8" (1.727 m) Wt 172 lb (78 kg) SpO2 97% BMI 26.15 kg/m Intervention/Significant Event: Chest tubes assessed: no air leak, subcutaneous air noted. Chest tubes removed without difficulty and dressing applied. Patient tolerated well. Patient and nurse educated on possible complications toobserve for. Will continue to monitor. * Elba Harper OT - 12/18/2019 2:03 PM EDT Occupational [...] Prognosis: Good Decision Making: Medium Complexity Exam: [facility] OT Education: OT Role;Plan of Care;Precautions;ADL Adaptive [...] surgical history that includes Cataract removal; Tonsillectomy; [place] tooth extraction;and Colonoscopy. 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..] Plan of Care supervision is transferred to [facility] Rehab Occupational Therapist. Elba Harper OTR/L * Janet Zaman, GLOVE TAGGER - CASKET UPHOLSTERER - 12/18/2019 1:38 PM EDT [facility] [address] [place], [place] [id number] Dept: [phone] Loc: [phone] Visit Date: 12/18/2019 Patient Chart, Consults notes, Labs, Radiology studies reviewed via EMR. No in person visit was done at this time. No audio visit was done at this time. HPI: Douglas Callaway Jr. is a 64 [...] BID KHARI Shoemaker CNP 1 drop at 12/18/19 0917 insulin glargine (LANTUS) injection vial 18 Units 18 Units Subcutaneous Daily Gerald Hernandez MD 18 Units at 12/18/19 0919 insulin lispro (HUMALOG) injection vial 5 Units 5 Units Subcutaneous TID Gerald Hernandez MD 5 Units at 12/18/19 0919 insulin lispro (HUMALOG) injection vial 0-6 Units 0-6 Units Subcutaneous TID Gerald Hernandez MD 1Units at 12/18/19 1307 pantoprazole (PROTONIX) tablet 40 mg 40 mg Oral QAM AC KHARI Constantino SAS CLINICAL PROGRAMMER 40 mg at 12/18/19 0529 enoxaparin (LOVENOX) injection 40 mg 40 mg Subcutaneous Daily Jarocho KHARI Ambrocio 40 mg at 12/18/19 0917 amLODIPine (NORVASC) tablet 5 mg 5 mg Oral Daily Jarocho KHARI Ambrocio SAS CLINICAL PROGRAMMER 5 mg at 12/18/19917 metoprolol tartrate (LOPRESSOR) tablet 50 mg 50 mg Oral BID Sep KHARI Ambrocio SAS CLINICAL PROGRAMMER 50 mg at sodium chloride flush 0.9 [...] Daily Colton Marroquin MD 17 g at 12/18/19917 sennosides-docusate sodium (SENOKOT-S) 8.6-50 MG tablet 2 [...] Nightly Colton Marroquin MD 80 mg at 12/17/192104 aspirin EC tablet 81 mg 81 mg Oral Daily Colton Marroquin MD 81 mg at 12/18/19916 glucose (GLUTOSE) 40 % oral gel 15 g 15 g Oral PRN Colton Marroquin MD dextrose 50 % IV solution 12.5 g Intravenous PRN Colton Marroquin MD glucagon (rDNA) injection 1 mg 1 mg Intramuscular PRN Colton Marroquin MD dextrose 5 % solution 100 mL/hr Intravenous PRN Colton Marroquin MD lidocaine 4 % external patch 2 patch 2 patch Transdermal Daily Dasha FreedKHARI CASKET UPHOLSTERER 2 patch at12/18/19 0917 acetaminophen (TYLENOL) tablet 1,000 mg 1,000 mg Oral TID Eve KHARI Carrion CASKET UPHOLSTERER 1,000 mg at 12/18/19 0917 No Known [...] F (37.1 C) Resp 18 Ht 5' 8" (1.727 m) Wt 172 lb (78 kg) SpO2 97% BMI 26.15 kg/m Physical Exam Due to the current efforts to prevent transmission of COVID-19 and also the need to preserve PPE for other caregivers, a zfko-ux-zeob encounter with the patient was not performed. [...] Range: >60 mL/min >60.0 EGFR IF NonAfrican Trinidadian Latest Ref Range: >60 mL/min >60.0 Glucose [...] work up. KHARI Murray CNP * Alicia Carroll APRN - CNP - 12/18/2019 5:14 AM EDT Cardiothoracic Surgery Progress Note 12/18/2019 Subjective: Procedure/Surgery/Following For: 12/14: CABGx3 (ASHLEY to LAD, V to D1, V to D2) EVH (left thigh) and ALFREDITO Interval History: 12/17-POD#3: VSS; off O2 currently; pain control- UO-1.7L/24hrs; CT-330cc/24hrs; 80cc/12hrs; no air leak of fluctuation noted. Subjective: doing "well" had a rough night per patient. No acute hemodynamic events. Having a lot of pain likely related to chest tubes (will hopefully d/c today). No other issues or concerns at thistime. Objective: BP (!) 96/57 Pulse 106 Temp 98.5 F (36.9 C) (Oral) Resp 20 Ht 5' 8" (1.727 m) Wt 172 lb (78 kg) [...] the morning of surgery 12/12/19 Yes Alicia KHARI Carroll CNP dorzolamide-timolol (COSOPT) 22.3-6.8 MG/ML ophthalmic solution [...] Bose RCP - 12/17/2019 11:12 PM EDT [facility] Respiratory Care Department Progress Note Patient [...] mind regarding wearing PAP to hit their "call light" or inform their nurse to contact Respiratory. [...] in the care of this patient, * Ilan [place], GLOVE TAGGER - CASKET UPHOLSTERER - 12/17/2019 12:07 PM EDT PAGING: The Acute Pain Service providers are available by pager. Please reference [employer] and/or [employer] Phonebook for Pain Management Provider SNAKER and direct all questions to the provider [...] Capsule 2.00 2 Objective Findings: Height: 5' 8" (172.7 cm) Weight: 172 lb (78 kg) BMI (Calculated): 26.2 Vital signs: Blood pressure 123/75, pulse 112, temperature 98.4 F (36.9 C), temperature source Oral, resp. rate 18, height 5' 8" (1.727 m), weight 172 lb (78 kg), [...] Patient Active Problem List Diagnosis CAD in [place] artery CAD, multiple vessel Hyperglycemia S/P CABG x 3 EPIDEMIOLOGY INVESTIGATOR: None Physical Exam Vitals signs and nursing note reviewed. Pain Management Adjuvants: APAP Morphine- 12 mg used 12/14 Oxycodone- 30 mg Oxycodone used 12/14 LP Assessment: 1. Acute incisional chest pain [...] providers are available by pager. Please reference [employer] and/or [employer] Phonebook for Pain Management Provider SNAKER and direct all questions to the provider listed. [facility] Pain Management has agreed to see our patients after they are discharged. Patients should be instructed to call [phone]. Please ask patient to sign a medical release andsend medical records to [facility].They will contact the patient with an appointment time. * Gerald Hernandez MD - 12/17/2019 9:49 AM EDT [facility] [address] [place], [place] [id number] Dept: [phone] Loc: [phone] Visit Date: 12/17/2019 HPI: Douglas Callaway Jr. [...] injection 20 mg 20 mg Intravenous BID Alicia Carroll, GLOVE TAGGER - CASKET UPHOLSTERER pantoprazole (PROTONIX) tablet 40 mg 40 mg Oral QAM AC Sep, GLOVE TAGGER - SAS CLINICAL PROGRAMMER 40 mg at 12/17/19 0616 enoxaparin (LOVENOX) injection 40 mg 40 mg Subcutaneous Daily Sep, GLOVE TAGGER - SAS CLINICAL PROGRAMMER 40 mg at 12/17/19 08 amLODIPine (NORVASC) tablet 5 mg 5 mg Oral Daily Sep, GLOVE TAGGER - SAS CLINICAL PROGRAMMER 5 mg at 12/17/19 08 metoprolol tartrate (LOPRESSOR) tablet 50 mg 50 mg Oral BID Sep, GLOVE TAGGER - SAS CLINICAL PROGRAMMER 50 mg at 12/16/200810 sodium chloride flush [...] mg 4 mg Intravenous Q8H PRN Colton Marorquin MD 4 mg at 12/16/19 1025 mupirocin [...] Transdermal Daily KHARI Izaguirre CNP 2 patch at12/17/19 0820 acetaminophen (TYLENOL) tablet 1,000 mg 1,000 mg Oral TID KHARI Thakur CNP 1,000 mg at 12/17/19 0820 No Known [...] (36.4 C) (Axillary) Resp 20 Ht 5' 8" (1.727 m) Wt 172 lb (78 kg) SpO2 100% BMI 26.15 kg/m Physical Exam Due to the current efforts to prevent transmission of COVID-19 and also the need to preserve PPE for other caregivers, a vzyr-gv-cxje encounter with the patient was not performed. [...] on file. Gerald Hernandez MD * Alicia Carroll, KHARI Li JON - 12/17/2019 8:54 AM EDT After rounds: [...] (36.4 C) (Axillary) Resp 18 Ht 5' 8" (1.727 m) Wt 172 lb (78 kg) [...] surgery 12/12/19 Yes Alicia Carroll APRN - CASKET UPHOLSTERER dorzolamide-timolol (COSOPT) 22.3-6.8 MG/ML ophthalmic solution Place [...] This note may have been dictated using Read[employer] Practice Edition 2.6 and/or [employer] Voice Recognition Feature. The document was proofread; however, unrecognized voice recognition slot service specialist errors may be present. * Vianca Baca MS, RD, LD - 12/16/2019 12:42 PM EDT Nutrition Assessment Type and Reason for Visit: Initial, Consult(Post op) Nutrition Recommendations: 1. If pt starting to consume >50% of meals, recommend Cardiac, Carbohydrate Control as goal diet. 2. Will add Ensure HP as an official order in [employer], per diet order pt can order 'as [...] attempted to call into pt's room (limiting etyl-ok-zkux contact with COVID-19) however call was unanswered. RD did drop off diet education outside pt's room (in paper chart), and RN was caring for pt at that time. Malnutrition Assessment: Malnutrition Status: At risk for malnutrition Context: Acute illness or injury Nutrition Risk Level: High Nutrient Needs: Estimated Daily Total Kcal: 3244-0800 kcal/day Estimated Daily Protein (g): 70-84 gm [...] (ONS) Orders: None(No actual ONS order in [facility]) ONS intake: Unable to assess Anthropometric Measures: Ht: 5' 8" (172.7 cm) Admission Body Wt: 184 lb 1.4 oz (83.5 kg)(bedscale) Usual Body Wt: 170 lb (77.1 kg)(per chart review) Dorr Body Wt: 154 lb (69.9 kg), % Dorr Body 119% BMI Classification: BMI 25.0 - [...] Function, Patient/Family Education, I&O Contact Number: pager [phone] * Dasha Freed, GLOVE TAGGER - CASKET UPHOLSTERER - 12/16/2019 12:24 PM EDT PAGING: The Acute Pain Service providers are available by pager. Please reference [employer] and/or [employer] Phonebook for Pain Management Provider SNAKER and direct all questions to the provider [...] Capsule 2.00 2 Objective Findings: Height: 5' 8" (172.7 cm) Weight: 184 lb 1.4 oz (83.5 kg) BMI (Calculated): 28 Vital signs: Blood pressure 111/74, pulse 107, temperature 97.7 F (36.5 C), temperature source Oral, resp. rate 13, height 5' 8" (1.727 m), weight 184 lb 1.4 oz [...] Patient Active Problem List Diagnosis CAD in [place] artery CAD, multiple vessel Hyperglycemia EPIDEMIOLOGY INVESTIGATOR: None Physical Exam Vitals signs and nursing note reviewed. Pain Management Adjuvants: APAP Morphine- 12 mg used 12/14 Oxycodone- 30 mg Oxycodone used 10 LP Assessment: 1. Acute incisional chest pain [...] providers are available by pager. Please reference [employer] and/or [employer] Phonebook for Pain Management Provider SNAKER and direct all questions to the provider listed. [facility] Pain Management has agreed to see our patients after they are discharged. Patients should be instructed to call [phone]. Please ask patient to sign a medical release andsend medical records to [facility].They will contact the patient with an appointment time. * Leydi Mcdermott, PT - 12/16/2019 10:42 AM EDT Physical Therapy Facility/Department: [facility] Initial Assessment NAME: Douglas Callaway Jr. : 1955 Date of Service: 12/16/2019 Discharge [...] surgical history that includes Cataract removal; Tonsillectomy; [place] tooth extraction;and Colonoscopy. Restrictions Restrictions/Precautions Restrictions/Precautions: Cardiac, [...] Plan of Care supervision is transferred to [facility] Rehab Department Physical Therapist. Leydi Mcdermott PT * Gerald Hernandez MD - 12/16/2019 9:19 AM EDT [facility] [address] [place] [address] Dept: [phone] Loc: [phone] Visit Date: 12/16/2019 HPI: Douglas Callaway Jr. [...] Cerebral artery occlusion with cerebral infarction (HCC) 2004 Depression Diabetes mellitus (HCC) Elevated LFTs GERD (gastroesophageal reflux disease) Hepatitis A Hyperlipidemia Hypertension Insomnia CABRERA (obstructive sleep apnea) TIA (transient ischemic attack) Past Surgical History: Procedure Laterality Date CATARACT REMOVAL COLONOSCOPY TONSILLECTOMY WISDOM TOOTH EXTRACTION Current Facility-Administered Medications Medication Dose Route Frequency Provider Last Rate Last Dose pantoprazole (PROTONIX) tablet 40 mg 40 mg Oral QAM AC Sep, [employer] - [employer] 40 mg at 12/16/19 0835 ketorolac (TORADOL) injection 15 mg 15 mg Intravenous Q6H Sep, [employer] 15 mg at 12/16/19 0850 enoxaparin (LOVENOX) injection 40 mg 40 mg Subcutaneous Daily Sep [employer] amLODIPine (NORVASC) tablet 5 mg 5 mg Oral Daily Sep, - [employer] metoprolol tartrate (LOPRESSOR) tablet 50 mg 50 mg Oral BID Sep, - [facility] 0.9 % sodium chloride infusion Intravenous Continuous [...] (36.5 C) (Oral) Resp 29 Ht 5' 8" (1.727 m) Wt 184 lb 1.4 oz (83.5 kg) SpO2 94% BMI 27.99 kg/m Physical Exam Due to the current efforts to prevent transmission of COVID-19 and also the need to preserve PPE for other caregivers, a udnh-is-djww encounter with the patient was not performed. [...] are stable. Endotracheal tube has been removed. [place]za catheter is in satisfactory position. No pneumothorax. [...] chloride Stopped (12/15/19 1418) propofol Stopped (12/15/19 131) phenylephrine (LALITA-SYNEPHRINE) 50mg/250mL infusion insulin 5 Units/hr (12/16/19716) dextrose nitroprusside sodium-NaCl 1.1 mcg/kg/min (12/16/19716) CBC: Recent Labs 12/15/19 1150 12/16/19 0117 WBC 12.0* 10.5 HGB 7.9* 7.9* HCT 23.3* 23.1* PLT 105* 138* BMP: Recent Labs 12/15/19 1150 12/16/19 011 NA 142 141 K 3.2* 4.3 CL 108* 105 CO2 22 25 BUN 19 17 CREATININE 0.95 0.79 GLUCOSE 93 91 CALCIUM 8.8 8.7 IONCA 4.70 -- MG 3.9* 2.2 PHOS 2.2* -- Ionized Calcium: Lab Results Component Value Date IONCA 4.70 12/15/2019 INR: Recent Labs 12/15/19 1150 INR 1.2* BLOOD GAS: Recent Labs 12/15/19 1150 PHART 7.397 IQJ2ZRK 40.3 PO2ART 373.8* [id number] 24.2 [id number] 98.6 Objective: Vitals: Temp (24hrs), Av.5 F (36.4 C), Min:96.8 F (36 C), Max:97.9 F (36.6 C) BP 137/84 Pulse 130 Temp 97.9 F (36.6 C) Resp 23 Ht 5' 8" (1.727 m) Wt 170 lb (77.1 kg) SpO2 93% BMI 25.85 kg/m I/O: Date 12/15/19 07 - 12/16/19 0712/16/19 07 - 12/17/19 0700 Shift 7472-4250 8050-4328 7703-1821 24 Hour Total 9281-1887 4155-6358 9506-6093 24 Hour Total INTAKE P.O. 700 700 I.V. 687 1880 2567 Blood 247.5 600 847.5 Volume (Transfuse platelets) 600 600 Volume (Transfuse platelets) 247.5 247.5 Other 2683 951 8768 IV Piggyback 417 417 Shift Total 1740.5 2184 2580 6504.5 OUTPUT Urine 960 1525 1020 3505 Chest Tube 727 946 740 6249 Shift Total 1687 1916 1350 4953 NET 53.5 268 1230 1551.5 Ventilator Settings: PHYSICAL EXAM: General Appearance: [x]WDWN []Obese []Cachectic []Thin []ill Skin: Temperature [x]Warm []Cool Rash []Yes []No Tattoo(s) []Yes []No HEENT: Pupils round and react [x]Yes []No Sclera []Icteric [x]Non-Icteric Conjunctiva []Injected [x]Non-Injected Pinnae []Normal []Other Dentitian [x][place] Teeth []Dentures []edentulous Oral Mucosa [x][place] [x]Moist []Dry Oral ETT []Present [x]Absent Neck: [...] [x]Absent AVERY ([x]RUE [x]RLE [x]LUE [x]LLE) Neurologic: [place]ARMI[place] []Yes [x]No Corneal reflexes [x]Present []Absent Plantar reflexes []Up []Down []Absent Withdraws to tactile [x]Yes []No Follows Commands [x]Yes []No []Unresponsive to verbal [x]Cranial nerves grossly intact [x]Sensation grossly intact Psych: Alert [x]yes []no Oriented []x0 []x1 []x2 [x]x3 Affect [x]Normal []Flat []Agitated []Anxious [x]Calm []Sedated []NAD Assessment and Plan: Severe CAD 12/14 s/p CABG, sinus tach--started on b-bridgett per primary Post op vent management, hx CABRERA, post op atelectasis Acute blood loss anemia, post op thrombocytopenia HTN, HLD, DM, GERD Cont autopap at night Will follow prn further ICU issues GI prophylaxis--protonix DVT prophylaxis--lovenox Nutrition--po diet See orders. * Jarocho Ambrocio APRN - [employer] - 12/16/2019 7:03 AM EDT Cardiothoracic Surgery [...] F (36.6 C) Resp 18 Ht 5' 8" (1.727 m) Wt 170 lb (77.1 kg) SpO2 94% BMI 25.85 kg/m I/O: Date 12/16/19 0000 - 12/16/199 Shift 5724-3034 2798-7184 4243-8141 24 Hour Total INTAKE Shift Total(mL/kg) OUTPUT Urine(mL/kg/hr) 570 570 Chest Tube 150 150 Shift Total(mL/kg) 720(9.3) 720(9.3) Weight (kg) 77.1 77.1 77.1 77.1 Weights: Patient Vitals for the past 96 hrs (Last 3 readings): Weight 12/15/19 0603 170 lb (77.1 kg) Labs: BMP: Recent Labs 12/15/19 1150 12/16/19 011 NA 142 141 K 3.2* 4.3 CL 108* 105 CO2 22 25 BUN 19 17 CREATININE 0.95 0.79 GLUCOSE 93 91 . CBC: Recent Labs 12/15/19 11512/16/19 011 WBC 12.0* 10.5 RBC 2.43* 2.43* HGB [...] CARDIAC; Problem List: Active Problems: CAD in [place] artery CAD, multiple vessel Hyperglycemia Resolved Problems: [...] PPI/SCD/Teds 10. Disposition: Continue progressive care in [facility] Log: - * Reed Cruz MD - 12/15/2019 5:51 PM EDT Vitals: 12/15/19 1730 BP: 114/69 Pulse: 108 Resp: 12 Temp: SpO2: 99% Pt extubated, no stridor, no resp distress. Ongoing ICU care. * Steph Ingram RCP - 12/15/2019 3:08 PM EDT [facility] Respiratory Care Department Progress Note Spontaneous [...] Visit Atherosclerosis of c oronary artery of [place] heart without angina pectoris Essential hypertension Hyperlipidemia H/O coronary artery bypass surgery Reason for Referral Specialty Diagnoses / Procedures Referred By Jayac t Referred To Contact CT IMAGING Diagnoses Nausea Procedures CT ABD/PEL W IVCON CT ABD & PELVIS W/CONTRAST Germaine Bray MD [address] [place] [address] Ct Imaging Referral ID Status Reason Start Date Expiration Date Visits Requested Visits Authorized [id number] Authorized Auto-Generat ed Referral 04/06/2023 05/05/2024 1 1 Specialty Diagnoses / Procedures [facility] Diagnoses Gastroparesis Heartburn Procedures EGD DIAGNOSTIC ESOPHAGOGASTRODUODENOSC OPY TRANSORAL DIAGNOSTIC Germaine Bray MD [address] [place] [address] [facility] [address] [place] [address] Referral ID Status Reason Start Date Expiration Date Visits Requested Visits Authorized [id number] Pending Review Auto-Generat ed Referral 04/06/2023 04/06/2024 1 1 Specialty Diagnoses / Procedures [facility] Referred To Contact MOLECULAR & FUNCTIONAL IMAGING Diagnoses Nausea Procedures NM GASTRIC EMPTYING SOLID GASTRIC EMPTYING STUDY Germaine Bray MD [address] [address] Molecular & Functional Imaging [address] [id number] Referral ID Status Reason Start Date Expiration Date Visits Requested Visits Authorized [id number] Authorized Auto-Generat ed Referral 04/06/2023 05/05/2024 1 1 Specialty Diagnoses / Procedures Referred By Contac t Referred To Contact CT IMAGING Diagnoses Nausea Procedures CT ABD/PEL W IVCON CT ABD & PELVIS W/CONTRAST Germaine Bray MD 1 [facility] [address] [place] [address] Ct Imaging [facility] Referral ID Status Reason Start Date Expiration Date V isits Requested Visits Authorized [id number] Closed Auto-Generate d Referral 04/06/2023 05/05/2024 1 1 Specialty Diagnoses / Procedures Referred By Contac t Referred To Contact [facility] Diagnoses Weakness of both lower extremities Procedures CONSULT TO BACTERIOLOGIST DAIRY OCCUPATIONAL THERAPY EVAL HIGH COMPLEX 60 MINS Sheryl Bassett MD [address] [place] [address] [facility] [address] [place] [address] Referral ID Status Reason Start Date Expiration Date Visits Requested Visits Authorized [id number] Authorized PCP Requested Referral Auto-Generate d Referral 08/12/2023 08/11/2024 99 99 Specialty Diagnoses / Procedures Referred By Contac t Referred To Contact MR IMAGING Diagnoses Transient cerebral ischemia, unspecified type Procedures MRI BRAIN WO IVCON MRI BRAIN BRAIN STEM W/O CONTRAST MATERIAL Sheryl Bassett MD [address] [place] [address] Mr Imaging [facility] Referral ID Status Reason Start Date Expiration Date Visits Requested Visits Authorized [id number] Authorized Auto-Generat ed Referral 10/26/2023 11/24/2024 1 1 Specialty Diagnoses / Procedures Referred By Contac t Referred To Contact [facility] Diagnoses Abnormality of gait due to impairment of balance Procedures CONSULT TO PHYSICAL THERAPY PHYSICAL THERAPY EVALUATION HIGH COMPLEX 45 MINS Sheryl Bassett MD [address] [place] [address] [facility] [address] [place] [address] Referral ID Status Reason Start Date Expiration Date Visits Requested Visits Authorized [id number] Authorized PCP Requested Referral Auto-Generate d Referral [...] section and content) DATE CREATED AUTHOR 01/21/2020 [facility] [employer] [facility] DATE CREATED AUTHOR AUTHOR'S ORGANIZ ATION 01/03/2024 [facility] DATE CREATED AUTHOR AUTHOR'S ORGANIZ ATION 01/20/2024 [facility] DATE CREATED AUTHOR AUTHOR'S ORGANIZ ATION 01/23/2024 [facility] DATE CREATED AUTHOR AUTHOR'S ORGANIZ ATION 03/03/2025 [facility] [employer] [facility] DATE CREATED AUTHOR AUTHOR'S ORGANIZ ATION 06/16/2025 [facility] Source Comments (unrecognize d section and content) In the event this informatio n is protected by the Federal Confidentiality of Alcohol and Drug Abuse Patient Records regulations: The Federal rules restrict any use of the information to criminally investigate or prosecute any alcohol or drug abuse patient.[facility] the event this information is protected by the Federal Confidentiality of Alcohol and Drug Abuse Patient Records regulations: The Federal rules restrict any use of the information to criminally investigate or prosecute any alcohol or drug abuse patient.[facility] Hospital[facility] the event this information is protected by the Federal Confidentiality of Alcohol and Drug Abuse Patient Records regulations: The Federal rules restrict any use of the information to criminally investigate or prosecute any alcohol or drug abuse patient.[facility] Hospital[facility] the event this information is protected by the Federal Confidentiality of Alcohol and Drug Abuse Patient Records regulations: The Federal rules restrict any use of the information to criminally investigate or prosecute any alcohol or drug abuse patient.[facility] Hospital[facility] the event this information is protected by the Federal Confidentiality of Alcohol and Drug Abuse Patient Records regulations: The Federal rules restrict any use of the information to criminally investigate or prosecute any alcohol or drug abuse patient.[facility] Hospital[facility] the event this information is protected by the Federal Confidentiality of Alcohol and Drug Abuse Patient Records regulations: The Federal rules restrict any use of the information to criminally investigate or prosecute any alcohol or drug abuse patient.[facility] Hospital[facility] the event this information is protected by the Federal Confidentiality of Alcohol and Drug Abuse Patient Records regulations: The Federal rules restrict any use of the information to criminally investigate or prosecute any alcohol or drug abuse patient.[facility] Hospital[facility] the event this information is protected by the Federal Confidentiality of Alcohol and Drug Abuse Patient Records regulations: The Federal rules restrict any use of the information to criminally investigate or prosecute any alcohol or drug abuse patient.[facility] Hospital[facility] the event this information is protected by the Federal Confidentiality of Alcohol and Drug Abuse Patient Records regulations: The Federal rules restrict any use of the information to criminally investigate or prosecute any alcohol or drug abuse patient.[facility] Hospital[facility] the event this information is protected by the Federal Confidentiality of Alcohol and Drug Abuse Patient Records regulations: The Federal rules restrict any use of the information to criminally investigate or prosecute any alcohol or drug abuse patient.[facility] HospitalIn the event this information is protected by the Federal Confidentiality of Alcohol and Drug Abuse Patient Records regulations: The Federal rules restrict any use of the information to criminally investigate or prosecute any alcohol or drug abuse patient.[facility] HospitalIn the event this information is protected by the Federal Confidentiality of Alcohol and Drug Abuse Patient Records regulations: The Federal rules restrict any use of the information to criminally investigate or prosecute any alcohol or drug abuse patient.[facility] HospitalIn the event this information is protected by the Federal Confidentiality of Alcohol and Drug Abuse Patient Records regulations: The Federal rules restrict any use of the information to criminally investigate or prosecute any alcohol or drug abuse patient.[facility] HospitalIn the event this information is protected by the Federal Confidentiality of Alcohol and Drug Abuse Patient Records regulations: The Federal rules restrict any use of the information to criminally investigate or prosecute any alcohol or drug abuse patient.[facility] HospitalIn the event this information is protected by the Federal Confidentiality of Alcohol and Drug Abuse Patient Records regulations: The Federal rules restrict any use of the information to criminally investigate or prosecute any alcohol or drug abuse patient.[facility] HospitalIn the event this information is protected by the Federal Confidentiality of Alcohol and Drug Abuse Patient Records regulations: The Federal rules restrict any use of the information to criminally investigate or prosecute any alcohol or drug abuse patient.[facility] the event this information is protected by the Federal Confidentiality of Alcohol and Drug Abuse Patient Records regulations: The Federal rules restrict any use of the information to criminally investigate or prosecute any alcohol or drug abuse patient.[facility] Hospital[facility] the event this information is protected by the Federal Confidentiality of Alcohol and Drug Abuse Patient Records regulations: The Federal rules restrict any use of the information to criminally investigate or prosecute any alcohol or drug abuse patient.[facility] HospitalIn the event this information is protected by the Federal Confidentiality of Alcohol and Drug Abuse Patient Records regulations: The Federal rules restrict any use of the information to criminally investigate or prosecute any alcohol or drug abuse patient.[facility] HospitalIn the event this information is protected by the Federal Confidentiality of Alcohol and Drug Abuse Patient Records regulations: The Federal rules restrict any use of the information to criminally investigate or prosecute any alcohol or drug abuse patient.[facility] HospitalIn the event this information is protected by the Federal Confidentiality of Alcohol and Drug Abuse Patient Records regulations: The Federal rules restrict any use of the information to criminally investigate or prosecute any alcohol or drug abuse patient.[facility] HospitalIn the event this information is protected by the Federal Confidentiality of Alcohol and Drug Abuse Patient Records regulations: The Federal rules restrict any use of the information to criminally investigate or prosecute any alcohol or drug abuse patient.[facility] HospitalIn the event this information is protected by the Federal Confidentiality of Alcohol and Drug Abuse Patient Records regulations: The Federal rules restrict any use of the information to criminally investigate or prosecute any alcohol or drug abuse patient.[facility] HospitalIn the event this information is protected by the Federal Confidentiality of Alcohol and Drug Abuse Patient Records regulations: The Federal rules restrict any use of the information to criminally investigate or prosecute any alcohol or drug abuse patient.[facility] HospitalIn the event this information is protected by the Federal Confidentiality of Alcohol and Drug Abuse Patient Records regulations: The Federal rules restrict any use of the information to criminally investigate or prosecute any alcohol or drug abuse patient.[facility] HospitalIn the event this information is protected by the Federal Confidentiality of Alcohol and Drug Abuse Patient Records regulations: The Federal rules restrict any use of the information to criminally investigate or prosecute any alcohol or drug abuse patient.[facility] HospitalIn the event this information is protected by the Federal Confidentiality of Alcohol and Drug Abuse Patient Records regulations: The Federal rules restrict any use of the information to criminally investigate or prosecute any alcohol or drug abuse patient.[facility] HospitalIn the event this information is protected by the Federal Confidentiality of Alcohol and Drug Abuse Patient Records regulations: The Federal rules restrict any use of the information to criminally investigate or prosecute any alcohol or drug abuse patient.[facility] HospitalIn the event this information is protected by the Federal Confidentiality of Alcohol and Drug Abuse Patient Records regulations: The Federal rules restrict any use of the information to criminally investigate or prosecute any alcohol or drug abuse patient.[facility] HospitalIn the event this information is protected by the Federal Confidentiality of Alcohol and Drug Abuse Patient Records regulations: The Federal rules restrict any use of the information to criminally investigate or prosecute any alcohol or drug abuse patient.[facility] HospitalIn the event this information is protected by the Federal Confidentiality of Alcohol and Drug Abuse Patient Records regulations: The Federal rules restrict any use of the information to criminally investigate or prosecute any alcohol or drug abuse patient.[facility] HospitalIn the event this information is protected by the Federal Confidentiality of Alcohol and Drug Abuse Patient Records regulations: The Federal rules restrict any use of the information to criminally investigate or prosecute any alcohol or drug abuse patient.[facility] HospitalIn the event this information is protected by the Federal Confidentiality of Alcohol and Drug Abuse Patient Records regulations: The Federal rules restrict any use of the information to criminally investigate or prosecute any alcohol or drug abuse patient.[facility] HospitalIn the event this information is protected by the Federal Confidentiality of Alcohol and Drug Abuse Patient Records regulations: The Federal rules restrict any use of the information to criminally investigate or prosecute any alcohol or drug abuse patient.[facility] HospitalIn the event this information is protected by the Federal Confidentiality of Alcohol and Drug Abuse Patient Records regulations: The Federal rules restrict any use of the information to criminally investigate or prosecute any alcohol or drug abuse patient.[facility] HospitalIn the event this information is protected by the Federal Confidentiality of Alcohol and Drug Abuse Patient Records regulations: The Federal rules restrict any use of the information to criminally investigate or prosecute any alcohol or drug abuse patient.[facility] Reason for Visit (unrecogniz ed section and content) Reason Comments PT Progress Note PT Discharge Specialty Diagnoses / Procedures Referred By Contac t Referred To Contact [facility] Diagnoses Abnormality of gait due to impairment of balance Procedures CONSULT TO PHYSICAL THERAPY PHYSICAL THERAPY EVALUATION HIGH COMPLEX 45 MINS Sheryl Bassett MD [address] [place] [address] [facility] [address] [place] [address] Referral ID Status Reason Start Date Expiration Date Visits Requested Visits Authorized [id number] Authorized PCP Requested Referral Auto-Generate d Referral 10/26/2023 10/25/2024 99 99 Reason Comments Physical Therapy Reason Comments PT Progress Note Specialty Diagnoses / Procedures Referred By Contac t Referred To Contact PHYSICAL THERAPY Diagnoses Weakness of both lower extremities Procedures CONSULT TO PHYSICAL THERAPY PHYSICAL THERAPY EVALUATION HIGH COMPLEX 45 MINS Sheryl Bassett MD [address] [place] [address] [facility] [address] [place] [address] Referral ID Status Reason Start Date Expiration Date Visits Requested Visits Authorized [id number] Authorized PCP Requested Referral Auto-Generate d Referral 3 07/26/2024 [address] Specialty Diagnoses / Procedures Referred By Contac t Referred To Contact CT IMAGING Diagnoses Nausea Procedures CT ABD/PEL W IVCON CT ABD & PELVIS W/CONTRAST Germaine Bray MD [address] [address] [address] Imaging [place] [address] Referral ID Status Reason Start Date Expiration Date V isits Requested Visits Authorized [id number] Closed Auto-Generate d Referral 04/06/2023 05/05/2024 1 [...] GASTRIC EMPTYING STUDY Germaine Bray MD [address] [address] Molecular & Functional Imaging [address] [place] [address] Referral ID Status Reason Start Date Expiration Date V isits Requested Visits Authorized [id number] Closed Auto-Generate d Referral 04/06/2023 05/05/2024 1 1 Reason Comments Appointment Reason Comments New Patient Specialty Diagnoses / Procedures Referred By Contac t Referred To Contact Neurology Diagnoses Weakness of both lower extremities Procedures CONSULT TO NEUROLOGY OFFICE/OUTPATIENT NEW HIGH MDM 60-74 MINUTES Germaine Bray MD [address] [address] Referral ID Status Reason Start Date Expiration Date V isits Requested Visits Authorized [id number] Closed PCP Requested Referral 06/10/2023 06/09/2024 1 1 Reason Onset Date Comments EMG 08/12/2023 Specialty Diagnoses / Procedures Referred By Contac t Referred To Contact [facility] Diagnoses Weakness of both lower extremities Procedures EMG(NEURO/NI) NERVE CONDUCTION STUDIES 9-10 STUDIES Sheryl Bassett MD [address] [place] [address] Neurological [facility] [address] [place] [address] Referral ID Status Reason Start Date Expiration Date V isits Requested Visits Authorized [id number] Closed Auto-Generate d Referral 07/27/2023 07/27/2024 1 1 Reason Comments PT Eval Patient Education Specialty Diagnoses / Procedures Referred By Contac t Referred To Contact [facility] Diagnoses Weakness of both lower extremities Procedures CONSULT TO PHYSICAL THERAPY PHYSICAL THERAPY EVALUATION HIGH COMPLEX 45 MINS Sheryl Bassett MD [address] [place] [address] [facility] [facility] [address] [place] [address] Specialty Diagnoses / Procedures Referred By Contac t Referred To Contact [facility] Diagnoses Weakness of both lower extremities Procedures CONSULT TO PHYSICAL THERAPY PHYSICAL THERAPY EVALUATION HIGH COMPLEX 45 MINS Sheryl Bassett MD [address] [place] [address] [facility] [address] [place] [address] Reason Comments Established Patient Specialty Diagnoses / Procedures Referred By Contac t Referred To Contact Gastroenterology Diagnoses Postprocedural leakage from bile duct Diarrhea, unspecified type Procedures CONSULT TO GASTROENTEROLOGY OFFICE/OUTPATIENT [facility] 60-74 MINUTES Germaine Bray MD 1 [facility] [address] [place] [address] Referral ID Status Reason Start Date Expiration Date V isits Requested Visits Authorized [id number] Closed PCP Requested Referral 06/10/2023 06/09/2024 1 [...] Care Teams (unrecognized sec tion and content) Scrubber Machine Tender Relationship Specialty Start Date End Date Iván Case [address] [place] [address] PCP - General Family Medicine 10/23/20 Scrubber Machine Tender Relationship Specialty Start Date End Date Iván Case [address] [place] [address] PCP - General Family Medicine 10/23/20 Scrubber Machine Tender Relationship Specialty Start Date End Date Iván Case MD [address] [place] [address] PCP - General Family Medicine 10/23/20 Scrubber Machine Tender Relationship Specialty Start Date End Date Iván Case MD [address] [place] [address] PCP - General Family Medicine 10/23/20 Scrubber Machine Tender Relationship Specialty Start Date End Date Iván Case MD [address] [place] [address] PCP - General Family Medicine 10/23/20 Scrubber Machine Tender Relationship Specialty Start Date End Date Iván Case MD [address] [place] [address] PCP - General Family Medicine 10/23/20 Scrubber Machine Tender Relationship Specialty Start Date End Date Iván Case MD [address] [place] [address] PCP - General Family Medicine 10/23/20 Scrubber Machine Tender Relationship Specialty Start Date End Date Iván Case MD [address] [place] [address] PCP - General Family Medicine 10/23/20 Scrubber Machine Tender Relationship Specialty Start Date End Date Iván Case MD [address] [place] [address] PCP - General Family Medicine 10/23/20 Scrubber Machine Tender Relationship Specialty Start Date End Date Iván Case MD [address] [place] [address] PCP - General Family Medicine 10/23/20 Scrubber Machine Tender Relationship Specialty Start Date End Date Iván Case MD [address] [place] [address] PCP - General Family Medicine 10/23/20 Scrubber Machine Tender Relationship Specialty Start Date End Date Iván Case MD [address] [place] [address] PCP - General Family Medicine 10/23/20 Scrubber Machine Tender Relationship Specialty Start Date End Date Iván Case MD [address] [place] [address] PCP - General Family Medicine 10/23/20 Scrubber Machine Tender Relationship Specialty Start Date End Date Iván Case MD [address] [place] [address] PCP - General Family Medicine 10/23/20 Scrubber Machine Tender Relationship Specialty Start Date End Date Iván Case MD [address] [place] [address] PCP - General Family Medicine 10/23/20 Scrubber Machine Tender Relationship Specialty Start Date End Date Iván Case MD [address] [place] [address] PCP - General Family Medicine 10/23/20 Scrubber Machine Tender Relationship Specialty Start Date End Date Iván Case MD [address] [place] [address] PCP - General Family Medicine 10/23/20 Scrubber Machine Tender Relationship Specialty Start Date End Date Iván Case MD [address] [place] [address] PCP - General Family Medicine 10/23/20 Scrubber Machine Tender Relationship Specialty Start Date End Date Iván Case MD [address] [place] [address] PCP - General Family Medicine 10/23/20 Scrubber Machine Tender Relationship Specialty Start Date End Date Iván Case MD [address] [place] [address] PCP - General Family Medicine 10/23/20 Scrubber Machine Tender Relationship Specialty Start Date End Date Iván Case MD [address] [place] [address] PCP - General Family Medicine 10/23/20 Scrubber Machine Tender Relationship Specialty Start Date End Date Iván Case MD [address] [place] [address] PCP - General Family Medicine 10/23/20 Scrubber Machine Tender Relationship Specialty Start Date End Date Iván Case MD [address] [place] [address] PCP - General Family Medicine 10/23/20 Scrubber Machine Tender Relationship Specialty Start Date End Date Iván Case MD [address] [place] [id number] PCP - General 12/12/19 Scheduled Active and [...] Eula Ku RN - Reason: Patient/family refused) 0818 (Not Given - Provider: Eula Mayorga RN - Reason: Patient/family refused) primidone (Mysoline) tablet 50 mg 50 mg, Oral, Nightly, First dose on Wed02/20/25 at 2100 2027 (Given - Provider: Eula Ku, YUN) rosuvastatin (Crestor) tablet 10 mg 10 mg, Oral, Nightly, First dose on Wed02/20/25 at 2099 2027 (Given - Provider: Eula Ku RN) sennosides (Senokot) tablet 8.6 mg 8.6 mg (1 tablet), Oral, Nightly, First dose on Wed02/21/25 at 2100 sodium chloride 0.9% (NS) flush 30 mL 30 mL, IntraVENous, Every 6 hours, First dose on Wed02/20/25 at 1530 1552 (Given - Provider: Zack Garcias, YUN)2032 (Not Given - Provider: Eula Ku RN - Reason: IV Fluids Infusing) 0320 (Not Given - Provider: Eula Ku RN - Reason: IV Fluids Infusing)0846 (Given - Provider: Eula Mayorga, YUN) Continuous Medication Order 02/19/2025 02/20/2025 02/21/2025 sodium chloride 0.9 % infusion 75 mL/hr, IntraVENous, Continuous, Starting on Wed02/20/25 at 1530 1552 (New Bag - Provider: Zack Garcias RN) PRN Medication Order 02/19/2025 02/20/2025 02/21/2025 dextrose [...] sedation for opioid reversal - MUST notify tax economist provider immediately after first dose, may give [...] BE BASED ON THE PRIMARY CLINICAL RECORDS. [facility] [employer] [facility]. provides no warranty or guarantee of the accuracy or completeness of information in this document.
--- NOTE | 2025-06-25 18:20 | STRESSREP ---
Stress Test Report Pharmacologic myocardial perfusion stress test. 70-year-old man with a history of coronary artery disease. Resting EKG demonstrates normal sinus rhythm with a rate of 96 bpm. Resting blood pressure is 180/78 mmHg. 0.4 mg of regadenoson was infused per usual protocol followed by rapid intravenous saline flush injection. Continuous EKG monitoring was performed. The maximum heart rate was 109 bpm which was 73% of max impacted heart rate the maximum workload was 1 metabolic equivalent. At rest there were no ST or T wave changes noted to suggest ischemia and at peak infusion nonspecific ST changes were noted which did not meet the criteria for ischemia. No clinical angina is noted. The final blood pressure was 150/70 mmHg. Myocardial perfusion protocol. 11.3 mCi of technetium 99m sestamibi was injected at rest. 0.4 mg of regadenoson was infused per usual protocol. At peak infusion 34 mCi of technetium 99m sestamibi was injected stress images were obtained stress and rest images were reconstructed and compared in the short axis vertical long and horizontal long axis. Gated images were also obtained. Perfusion SPECT analysis: Review of the stress images demonstrate normal uptake of tracer noted in all areas of the myocardium. There is mild reduction of anteroseptal perfusion noted on the stress and rest images to a similar extent. The incomplete left bundle branch block could account for the above. No reversibility is noted suggest ischemia and no obvious previous infarct is present. Gated SPECT analysis: The gated ejection fraction is 68%. Conclusion: Normal pharmacologic myocardial perfusion stress test. Preserved ejection fraction.
== END | disposition home or self-care (01) ==
LOC: CVS 07:28
PROVIDERS: PCP Family Medicine; Referring Provider Nurse Practitioner Family; Visit Provider Nurse Practitioner Family
DX: R06.09 Other forms of dyspnea (principal); E11.9 Type 2 diabetes mellitus without complications; I10 Essential (primary) hypertension; E78.2 Mixed hyperlipidemia; Z95.818 Presence of other cardiac implants and grafts; Z95.1 Presence of aortocoronary bypass graft
CPT/HCPCS: 78452; 93017; 93306; A9500; A4216; J2785

== ENCOUNTER → 2025-07-02 | Outpatient (CLI) | payer MEDICARE, OTHER, SELFPAY ==
[2020-04-24 10:56] VITALS: BMI 26.7
[2025-07-02 15:44] LABS: Anion Gap 11 (5-15); BUN 31 mg/dL (4-19); BUN/Creat Ratio 16.9 RATIO (10-20); Calcium,Total 9.5 mg/dL (7.6-11.0); Carbon Dioxide 26.5 mmol/L (21.0-32.0); Chloride 103 mmol/L (98-108); Glucose 155 mg/dL (70-99); Potassium 4.9 mmol/L (3.3-5.1)
== END | disposition home or self-care (01) ==
PROVIDERS: PCP Family Medicine; Referring Provider Nurse Practitioner Family; Visit Provider Nurse Practitioner Family
DX: E87.5 Hyperkalemia (principal)
CPT/HCPCS: 36415; 80048

== ENCOUNTER → 2025-08-09 | Outpatient (CLI) | payer MEDICARE, OTHER, SELFPAY ==
[2020-04-24 10:56] VITALS: BMI 26.7
[2025-08-09 11:58] LABS: Mucous, Urine 0 SEEN /hpf (<or=2+); Squamous Epithelial Cells - UA 0 SEEN /hpf (0-5)
[2025-08-09 15:28] LABS: Hematocrit 40.6 % (40-54); Hemoglobin 12.6 g/dL (13.0-16.5); Immature Granulocytes Count 0.080 X10^3/uL (0.0-0.0); Mean Corp Hgb Conc 31.0 g/dL (32-36); Mean Corpuscular Volume 101.8 fL (80-94); Mean Platelet Vol. 10.3 fl (6.2-12.0); NRBC Flagged by Analyzer 0 % (0-5); Platelet Count 198 K/mm3 (150-450); RBC Distribution Width CV 13.1 % (11.6-14.6); RBC Distribution Width SD 49.1 fl (35.1-43.9); Red Blood Count 3.99 M/mm3 (4.6-6.2); White Blood Count 6.6 K/mm3 (4.4-11.0)
[2025-08-09 16:02] LABS: AST(SGOT) 26 U/L (<=37); Alanine Aminotransfer ALT/SGPT 19 U/L (<=46); Albumin, Serum 3.7 g/dL (3.4-4.8); Alkaline Phosphatase 157 U/L (40-129); Anion Gap 11 (5-15); BUN 27 mg/dL (4-19); BUN/Creat Ratio 14.7 RATIO (10-20); Calcium,Total 9.0 mg/dL (7.6-11.0); Carbon Dioxide 22.0 mmol/L (21.0-32.0); Chloride 105 mmol/L (98-108); Cholesterol 121 mg/dL (<=200); Ferritin 215 ng/mL (37-417); Globulin 2.9 g/dL (2.2-4.2); Glucose 133 mg/dL (70-99); Low Density Lipoprotein Calc. 40 mg/dL; Potassium 4.8 mmol/L (3.3-5.1); Triglycerides 98 mg/dL; Very Low Density Lipoprotein 20 mg/dL (5-40); Vitamin D,25 Hydroxy 40.9 ng/mL (30-100); cholesterol:hdl ratio screen 1.94
[2025-08-09 16:08] LABS: Creatinine, Urine (random) 69.20 mg/dL (39.00-259.00)
[2025-08-09 16:17] LABS: Iron 36 ug/dL (65-175); Iron Binding Capacity,Unsat 196 ug/dL (228-428)
[2025-08-09 16:20] LABS: Microalbumin,Random Urine 1097.0 mg/L (<20 mg/L); Protein, Urine (Random) 179.0 mg/dL (0.0-12.0); Protein:Creat Ratio 2587 mg/g CRE (0-200)
[2025-08-09 16:35] LABS: Iron Binding Capacity,Total 232 ug/dL (250-450)
[2025-08-09 18:09] LABS: Color, Urine Yellow (Yellow); Glucose, Dipstick 1000 mg/dl (Normal); Ketone-Dipstick Negative (Negative); Leukocyte Esterase-Dipstick Negative /ul (Negative); Nitrite-Dipstick Negative (Negative); Occult Blood-Urine 10 /ul (Negative); Protein-Dipstick 100 mg/dl (Negative); Specific Gravity, Urine 1.015 (1.002-1.030); Urine Bilirubin Dipstick Negative (Negative)
[2025-08-09 19:36] LABS: Red Blood Cells-Urine 0-5 SEEN /hpf (0-5)
== END | disposition home or self-care (01) ==
LOC: MFPLAB 11:55
PROVIDERS: PCP Family Medicine; Visit Provider Family Medicine
DX: M81.0 Age-related osteoporosis without current pathological fracture (principal); E11.8 Type 2 diabetes mellitus with unspecified complications; E11.22 Type 2 diabetes mellitus with diabetic chronic kidney disease; E61.1 Iron deficiency
CPT/HCPCS: 36415; 80053; 80061; 81001; 82043; 82306; 82570; 82728; 83036; 83540; 83550; 84156; 85025